=== PATIENT | male | born 1960 | race American Indian/Alaskan Native ===

== ENCOUNTER 2022-04-17 19:01 | Inpatient (IN) | payer OTHER ==
--- NOTE | 2022-04-17 19:12 | Emergency Department Report ---
ED CPR HPI - General Chief Complaint: Cardiac Arrest/CPR Stated Complaint: CARDIAC ARREST Time Seen by Provider: 04/17/22 19:07 Source: EMS Mode of arrival: Stretcher Limitations: Altered Mental Status, Physical Limitation - History of Present Illness Initial Comments: Patient is a 61-year-old male that presents emergency room for cardiac arrest. Patient brought in by EMS. Patient was at a [facility] outpatient [facility] for chest pain. Patient went to the restroom and went unresponsive in the restroom. Cy then called EMS. [facility] was able to get return of circulation after defibrillation for V. fib and multiple rounds of epi. Patient was then in tubated with RSI by [facility]. EMS picked patient up and the patient went back into cardiac arrest and and got spontaneous circulation after 1 round of epi. Complaint: found unresponsive, stopped breathing, collapsed during activity -: minute(s) Place: other ([facility]) Initial Findings in the Field: unresponsive, no respirations, no pulse, VTACH/VFIB ROSC in the Field: Yes Associated Injuries: No Associated Symptoms: chest pain Treatments Prior to Arrival: intubation, BMV, chest compressions, defribrillated shocks #, epinephrine mgs #, sodium bicarbonate - Related Data Allergies Allergy/AdvReac Type Severity Reaction Status Date / Time No Known Allergies Allergy Unverified 04/17/22 19:30 ED Review of Systems ROS: Stated complaint: CARDIAC ARREST Other details as noted in HPI Comment: Unobtainable due to pts medical conditions ED Past Medical Hx - Past Medical History Previous Medical History?: Yes Hx Hypertension: Yes Hx CVA: No Hx Heart Attack/AMI: No Hx Congestive Heart Failure: No Hx Diabetes: Yes Additional medical history: Hyperlipidemia, A. fib - Surgical History Past Surgical History?: No - Family History Family history: no significant - Social History Smoking Status: Unknown if ever smoked Substance Use Type: None ED Physical Exam - General Limitations: Altered Mental Status, Physical Limitation General appearance: obtunded - Head Head exam: Present: atraumatic, normocephalic - Eye Eye exam: Present: normal appearance, PERRL Pupils: Present: normal accommodation - ENT ENT exam: Present: mucous membranes dry - Neck Neck exam: Present: normal inspection - Respiratory Respiratory exam: Present: normal lung sounds bilaterally. Absent: respiratory distress, wheezes, rales - Cardiovascular Cardiovascular Exam: Present: regular rate, normal rhythm. Absent: systolic murmur, diastolic murmur, rubs, gallop - GI/Abdominal GI/Abdominal exam: Present: soft, normal bowel sounds - Rectal Rectal exam: Present: deferred - Extremities Exam Extremities exam: Present: normal inspection - Back Exam Back exam: Present: normal inspection - Neurological Exam Neurological exam: Present: altered - Skin Skin exam: Present: warm, dry, normal color, other (Left lower extremity IO). Absent: rash ED Course Vital Signs 04/17/22 04/17/22 19:01 19:10 Temperature 98 F Pulse Rate 127 H 121 H Respiratory 20 Rate Blood Pressure 162/104 135/93 O2 Sat by Pulse 76 L 68 L Oximetry - Reevaluation(s) Reevaluation #1: Initial valuation done. Cardiology will be consulted. Patient will have an EKG. Patient will have a cardiac work-up. 04/17/2218:57 Reevaluation #2: Patient is in A. fib RVR. Patient will be given amiodarone. 04/17/22 19:19 Reevaluation #3: Patient's on amiodarone. Patient's heart rate is slowly improving. 04/17/22 19:35 Reevaluation #4: Patient is hypotensive. Patient will be given 2 saline boluses. Patient will be placed on a Levophed drip as needed. 04/17/22 20:22 Patient responded well to saline bolus. Patient's blood pressure has normalized. Patient started on fentanyl drip since the patient is starting to wake up. 04/17/22 20:35 Reevaluation #5: I discussed the case with family. Patient will be admitted to the hospitalist service. Patient is being admitted to the ICU. 04/17/22 20:55 - Consultations Consultation #1: Cardiology Dr. Ventura consulted. Orders received. EKG sent to cardiology. 04/17/22 1857 I discussed again with cardiology. Cardiology does not recommend taking the patient to the [facility]. 04/17/22 19:38 Consultation #2: Hospitalist consulted for admission. Hospitalist to admit patient. 04/17/22 20:56 Consultation #3: I discussed the case with Dr. Fraser, [facility] physician. Dr. Fraser states the patient can be admitted here. 04/17/22 22:06 ED Medical Decision Making - Lab Data Result diagrams: 04/17/22 19:58 04/17/22 19:58 - EKG Data -: EKG Interpreted by Me EKG shows normal: axis, intervals, QRS complexes Rate: tachycardia - EKG Data Interpretation: nonspecific ST-T wave shanita, other (A. fib RVR) - Radiology Data Radiology results: report reviewed, image reviewed interpreted by me: Chest x-ray: No pneumonia, no pneumothorax, ET tube shows good placement., no osseous findings, CTA CHEST WITH CONTRAST INDICATION / CLINICAL INFORMATION: cardiac arrest. TECHNIQUE: Axial CT images were obtained through the chest after injection of IV contrast. 3 plane MIP and/or 3D reconstructions were produced. All CT scans at this location are performed using CT dose reduction for ALABlend by means of automated exposure control. COMPARISON: No prior CTs. FINDINGS: PULMONARY EMBOLUS: None. THORACIC AORTA: No significant abnormality. HEART: No significant abnormality. CORONARY ARTERY CALCIFICATION: Absent -- None. MEDIASTINUM / ALEXANDRA: No significant abnormality. PLEURA: No pleural effusion. No pneumothorax. LUNGS: There is dense consolidation within the dependent portion of both lungs greatest superiorly. Groundglass opacities are noted in the more anterior bilateral upper lobes. ADDITIONAL FINDINGS: Endotracheal tube and right IJ catheter are in satisfactory position. UPPER ABDOMEN: No acute findings. SKELETAL STRUCTURES: No significant osseous abnormality. IMPRESSION: 1. No CT evidence for pulmonary embolism. 2. Extensive bilateral airspace disease greatest in the dependent portions and greater in the upper lobes. Given the distribution, this could be related to aspiration if the patient has had prolonged loss of consciousness. CT head/brain wo con INDICATION / CLINICAL INFORMATION: 61 years Male; ams. TECHNIQUE: Routine CT head without contrast. All CT scans at this location are performed using CT dose reduction for ALARA by means of automated exposure control. COMPARISON: None. FINDINGS: BRAIN / INTRACRANIAL CONTENTS: Arachnoid cyst seen in the middle cranial fossa on the right, most likely of no clinical significance. Otherwise, no acute hemorrhage, mass effect, midline shift, hydrocephalus, or acute, large territorial infarct. No signs of significant atrophy or chronic infarct. No significant white matter abnormality seen. CRANIOCERVICAL JUNCTION: No significant abnormality. ORBITS: No significant abnormality of visualized orbits. SINUSES / MASTOIDS: Moderate mucosal thickening seen in the ethmoids and left sphenoid sinus. Small air-fluid levels seen throughout, including in the left frontal sinus region. There is significant opacification of the left maxillary antrum with an air-fluid level. Small air- fluid level noted in the right maxillary antrum as well. Note, the patient is intubated. Secretions are layering in the nasopharynx. Prior mastoidectomies noted bilaterally. There is partial opacification of the mastoidectomy cavities, as well as the middle ear cavities. ADDITIONAL FINDINGS: None. IMPRESSION: 1. No focal intra-axial mass, hemorrhage, hydrocephalus, or acute, large territorial infarct. 2. Sinus findings as described above, some of which certainly may be related to the patient being intubated. - Medical Decision Making Patient is a 61-year-old male who presents emergency room for cardiac arrest. Patient had spontaneous return of circulation while in the field at the [facility] as well as with EMS. Patient had a pulse and stable blood pressure on arrival. Patient was intubated by EMS. Placement verified and the ET tube was adjusted prior to x-ray. Patient found to be in A. fib RVR. I discussed the case with cardiology to consult cardiology the possibility of taking the patient directly to cath. Cardiology states that he want to take the patient to cath at this time. Recommendations were received from cardiology. Patient placed on amiodarone for A. fib RVR. Patient then found to be hypotensive and given fluids. Patient responded well to fluids. Patient had a Levophed drip ordered as needed. Patient was placed on fentanyl for sedation. Patient had x-rays done. Patient's initial x-ray shows good placement of the ET tube. Patient admitted to the hospitalist service and into the ICU.. Critical care time documented due to the multiple reassessments, prolonged time at the bedside, interpretation of diagnostics and labs and discussion with consultants.. - Differential Diagnosis Cardiac arrest, IA, PE, Critical Care Time: Yes Critical care time in (mins) excluding proc time.: 80 Critical care attestation.: If time is entered above; I have spent that time in minutes in the direct care of this critically ill patient, excluding procedure time. Critical Care Time: 80 minutes ED Disposition Clinical Impression: Cardiac arrest, Cardiogenic shock, Acute hypoxemic respiratory failure, Atrial fibrillation with RVR Hypotension Qualifiers: Hypotension type: unspecified hypotension type Qualified Code(s): I95.9 - Hypotension, unspecified Altered mental status Qualifiers: Altered mental status type: unspecified Qualified Code(s): R41.82 - Altered mental status, unspecified Aspiration pneumonia Qualifiers: Aspiration pneumonia type: unspecified Laterality: unspecified laterality Lung location: unspecified part of lung Qualified Code(s): J69.0 - Pneumonitis due to inhalation of food and vomit Disposition: ADMITTED INPATIENT Is pt being admited?: Yes Does the pt Need Aspirin: No Condition: Critical Time of Disposition: 21:21
[2022-04-17] MEDS ORDERED: AMIODARONE 150 MG in DEXTROSE 5% IN WATER 97 ML IV ONE (19:15)
[2022-04-17] MEDS ORDERED: ALBUTEROL 2.5 MG/3 ML NEBU IH PRN (19:48)
[2022-04-17] MEDS ORDERED: oxyCODONE /ACETAMINOPHEN 5-325MG TAB PO PRN (19:48)
[2022-04-17] MEDS ORDERED: HYDROmorphone 0.5 MG/0.5 ML INJ IV PRN ×2 (19:48→20:28)
--- NOTE | 2022-04-17 19:51 | History and Physical Report ---
History of Present Illness Chief complaint: Unresponsive History of present illness: 61 YO Male with Obesity Hypoventilation Syndrome, HTN, DM, Metabolic Syndrome presents to ED for evaluation. Patient is intubated and on ventilatory support at time of evaluation is unable to write history. Patient history taken EMS staff, ED staff, as well as the patient family was at bedside during exam and interview. As per family the patient presented to [facility] outpatient clinic for evaluation for chest pain. Patient subsequently went to the restroom and was found unresponsive in the restroom. EMS was notified and upon arrival the patient was found to be in distress with absent of spontaneous circulation and found to have ventricular fibrillation. Patient treated with ACLS protocol and was subsequently intubated in the field and transported to [facility] for further care and evaluation of the aforementioned symptoms. The patient was seen and evaluated in the emergency department. All lab and imaging studies reviewed. Patient found to have aspirated in the oropharynx with suspected aspiration pneumonia complicated by acute hypoxemic respiratory failure, septic shock, as well as cardiac arrest. Patient admitted to ICU and initiated on sepsis protocol due to septic shock. Patient initiated on IV pressor support. Patient family deny reports of fever, chills, palpitation, adductive cough, skin rash, recent contact, known exposure to COVID-19. No prior admission for review. No medication listed at time of admission for reconciliation. Advanced care planning conducted in ED. Cardiology team consulted in ED. Critical care team consulted in ED. Past History Past Medical History: diabetes, hypertension, other (See HPI) Past Surgical History: No surgical history, Other (Reviewed) Social history: . denies: smoking, alcohol abuse Family history: diabetes, hypertension Medications and Allergies Allergies Allergy/AdvReac Type Severity Reaction Status Date / Time No Known Allergies Allergy Unverified 04/17/22 19:30 Active Meds: Active Medications Amiodarone HCl 900 mg/ (Dextrose) 500 mls @ 33.333 mls/hr IV DIRECT FLACO; Protocol Review of Systems ROS unobtainable: due to endotracheal tube, due to mental status Exam - Constitutional General appearance: Present: severe distress - EENT Eyes: Present: miosis ENT: hearing decreased - Neck Neck: Present: supple, normal ROM - Respiratory Respiratory effort: labored, accessory muscle use Respiratory: bilateral: diminished, rhonchi - Cardiovascular Rhythm: irregularly irregular - Extremities Extremities: pulses symmetrical, No edema Peripheral Pulses: abnormal (Capillary refill greater than 3.5 seconds) - Abdominal General gastrointestinal: Present: soft, non-tender, non-distended, normal bowel sounds Male genitourinary: Present: normal - Integumentary Integumentary: Present: dry, clammy, decreased turgor - Musculoskeletal Musculoskeletal: generalized weakness - Psychiatric Psychiatric: no appropriate mood/affect, no intact judgment & insight, no memory intact - Neurologic Neurologic: CNII-XII intact, no focal deficits, moves all extremities, no gait normal Results - Labs CBC & Chem 7: 04/17/22 19:58 Labs: Abnormal lab results 04/17/22 Range/Units 19:18 POC Glucose 277 H (70-105) mg/dL Assessment and Plan - Patient Problems (1) Sepsis Current Visit: Yes Status: Acute Qualifiers: Severe sepsis acute organ dysfunction type: acute respiratory failure Severe sepsis shock status: with septic shock Plan to address problem: Severe sepsis: Chest x-ray, CBC, CMP, urinalysis, IV fluid resuscitation therapy, IV antibiotic therapy, serial lactic acid level, maintain mean arterial pressure greater than or equal to 65, IV pressor support, critical care team consulted in ED, blood culture. The high probability of a clinically significant, sudden or life threatening deterioration of the [cardiac, pulmonary, renal, ID, neuro] system(s) required my full and direct attention, intervention and personal management. The aggregate critical care time was [95] minutes. This time is in addition to time spent performing reported procedures but includes the following: [x] Data Review and interpretation [x] Patient assessment and monitoring of vital signs [x] Documentation [x] Medication orders and management (2) Acute hypoxemic respiratory failure Current Visit: Yes Status: Acute Plan to address problem: Chest x-ray, supplemental oxygen, patient intubated and on ventilatory support. Critical care team consulted, wean vent as tolerated, daily spontaneous breathing trial, arterial blood gas daily. Sedation holiday daily. (3) Cardiogenic shock Current Visit: Yes Status: Acute Plan to address problem: IV pressor support, supportive care. Telemetry monitoring. Cardiology team consulted. (4) Cardiac arrest Current Visit: Yes Status: Acute Plan to address problem: Patient treated in accordance with ACLS protocol with eventual return of perfusing cardiac rhythm. (5) Obesity hypoventilation syndrome Current Visit: Yes Status: Acute Plan to address problem: Balanced diet, submental oxygen, pulmonary toilet, (6) Hypertension Current Visit: Yes Status: Acute Qualifiers: Hypertension type: primary hypertension Qualified Code(s): I10 - Essential (primary) hypertension Plan to address problem: Monitor blood pressure every shift. Patient currently hypotensive and on IV pressor support. (7) Diabetes Current Visit: Yes Status: Acute Plan to address problem: Consistent carbohydrate diet when awake and alert only, hypoglycemia protocol, insulin protocol, Accu-Chek. (8) DVT prophylaxis Current Visit: Yes Status: Acute Plan to address problem: SCDs bilateral lower extremities while in bed prophylactic anticoagulation (9) Advance care planning Current Visit: Yes Status: Acute Plan to address problem: Disease education done, care plan discussed, diagnoses discussed, patient poor prognosis discussed. Patient family knowledges understanding and agreement with care plan, +30 minutes. (10) Preventative health care Current Visit: Yes Status: Acute Plan to address problem: Patient family counseled regarding risk factor reduction, outpatient follow-up with primary care physician for all age and risk factor appropriate screening test, +30 minutes.
--- NOTE | 2022-04-17 19:57 | XRay Report ---
CHEST 1 VIEW 04/17/2022 6:35 PM INDICATION / CLINICAL INFORMATION: TUBE PLACEMENT; CHEST PAIN. COMPARISON: None. FINDINGS: SUPPORT DEVICES: Endotracheal tip is approximately 2 cm above the law. HEART / MEDIASTINUM: Upper limits of normal. LUNGS / PLEURA: There are diffuse bilateral pulmonary opacities. No pneumothorax. ADDITIONAL FINDINGS: No significant additional findings. IMPRESSION: 1. Endotracheal tube tip is approximately 2 cm above the law. 2. Diffuse bilateral pulmonary opacities could be seen in the setting of pulmonary edema but are nons pecific. Signer Name: Matt Jacobo MD Signed: 04/17/2022 7:53 PM Workstation Name: [id number]
--- NOTE | 2022-04-17 20:01 | XRay Report ---
CHEST 1 VIEW 7:50 PM INDICATION: tube placement. COMPARISON: Earlier today. FINDINGS: Support devices: Endotracheal tube has been pulled back, the tip is approximately 3-4 cm above the ca emanuel. Heart: Stable. Lungs/Pleura: No pneumothorax. Diffuse bilateral pulmonary opacities persist. IMPRESSION: 1. Endotracheal tube tip is approximately 3-4 cm above the law. Signer Name: Matt Jacobo MD Signed: 04/17/2022 7:57 PM Workstation Name: [id number]
[2022-04-17] MEDS: AMIODARONE 900 MG in DEXTROSE 5% IN WATER 482 ML IV SCH (20:04)
[2022-04-17 20:14] LABS: ABG Base Excess -11.5 mmol/L (-2.0-3.0); ABG HCO3 18.5 mmol/L (20.0-26.0); ABG Methemoglobin 0.7 % (0.0-1.5); ABG Oxygen Saturation 68.3 % (95.0-99.0); ABG PCO2 58.3 mm Hg; ABG PO2 45.3 mm Hg (80.0-90.0)
[2022-04-17 20:18] LABS: ABG PH 7.12 pH Units (7.350-7.450)
[2022-04-17] MEDS ORDERED: SODIUM CHLORIDE 0.9% 1000 ML 1,000 ML IV ONE ×2 (20:20→21:25)
[2022-04-17 20:28] LABS: Basophils # (Auto) 0.1 K/mm3 (0.0-0.1); Basophils % (Auto) 0.6 % (0.0-1.8); Eosinophils # (Auto) 0.3 K/mm3 (0.0-0.4); Eosinophils % (Auto) 2.8 % (0.0-4.3); Hemoglobin 15.5 gm/dl (11.8-15.2); Lymphocytes # (Auto) 2.7 K/mm3 (1.2-5.4); Mean Corpuscular HGB Conc 32 % (32-34); Mean Corpuscular Volume 93 fl (84-94); Monocytes # (Auto) 0.2 K/mm3 (0.0-0.8); Monocytes % (Auto) 1.9 % (0.0-7.3); Platelet Count 228 K/mm3 (140-440); Red Blood Count 5.17 M/mm3 (3.65-5.03); Red Cell Distribution Width 14.9 % (13.2-15.2)
[2022-04-17] MEDS ORDERED: ACETAMINOPHEN 325 MG TAB PO PRN (20:28)
[2022-04-17] MEDS ORDERED: SODIUM CHLORIDE 0.9% 1000 ML IV SOLN IV ONE (20:28)
--- NOTE | 2022-04-17 20:28 | Procedure Note ---
Date of procedure: 04/17/22 Pre-op diagnosis: Acute hypoxemic respiratory failure, cardiac arrest Post-op diagnosis: same Procedure: Right internal jugular vein triple-lumen catheter under ultrasound guidance After informed consent was obtained, the patient was prepped and draped in usual sterile fashion. A timeout was taken with the patient's nurse at bedside to verify the correct patient, the correct procedure, and correct operative site. Local anesthesia obtained with 1% lidocaine. Ultrasound was utilized to localize the right internal jugular vein. The Seldinger technique was utilized to access the right internal jugular vein with a seeker needle followed ultrasound guidance. A guidewire was then advanced via the seeker needle into the right internal jugular vein without difficulty. The seeker needle was then removed over the guidewire. A scalpel was used to incise the skin at the insertion site. A dilator was then passed over the guidewire into the right internal jugular vein and subsequently removed. A preflush triple-lumen catheter was then advanced via the guidewire into the right internal jugular vein. The guidewire was subsequently removed. All 3 ports flush and drawl with ease. 3-0 silk suture was utilized to suture the triple-lumen catheter in place. A sterile dressing was applied over the triple-lumen catheter. Estimated blood loss minimal. Specimens none. Postoperative chest x-ray reveals triple-lumen catheter in expected position without evidence of pneumothorax. Anesthesia: local Surgeon: MARI MARCUS Estimated blood loss: minimal Pathology: none Condition: critical Disposition: ICU
[2022-04-17] MEDS: fentaNYL DRIP Premix 2,000 MCG/100 ML BAG IV SCH (20:29)
[2022-04-17 20:34] LABS: Calcium 8.4 mg/dL (8.4-10.2)
[2022-04-17 20:37] LABS: INR 0.95 (0.87-1.13)
[2022-04-17 20:38] LABS: Partial Thromboplastin Time 33.2 Sec. (24.2-36.6)
[2022-04-17] MEDS: fentaNYL 100 MCG/2 ML INJ IV PRN ×2 (20:44→21:04)
--- NOTE | 2022-04-17 21:32 | Cat Scan Report ---
CT head/brain wo con INDICATION / CLINICAL INFORMATION: 61 years Male; ams. TECHNIQUE: Routine CT head without contrast. All CT scans at this location are performed using CT dos e reduction for ALARA by means of automated exposure control. COMPARISON: None. FINDINGS: BRAIN / INTRACRANIAL CONTENTS: Arachnoid cyst seen in the middle cranial fossa on the right, most lik aurea of no clinical significance. Otherwise, no acute hemorrhage, mass effect, midline shift, hydrocephalus, or acute, large territori al infarct. No signs of significant atrophy or chronic infarct. No significant white matter abnormali ty seen. CRANIOCERVICAL JUNCTION: No significant abnormality. ORBITS: No significant abnormality of visualized orbits. SINUSES / MASTOIDS: Moderate mucosal thickening seen in the ethmoids and left sphenoid sinus. Small a ir-fluid levels seen throughout, including in the left frontal sinus region. There is significant opa cification of the left maxillary antrum with an air-fluid level. Small air-fluid level noted in the r ight maxillary antrum as well. Note, the patient is intubated. Secretions are layering in the nasopha rynx. Prior mastoidectomies noted bilaterally. There is partial opacification of the mastoidectomy cavities , as well as the middle ear cavities. ADDITIONAL FINDINGS: None. IMPRESSION: 1. No focal intra-axial mass, hemorrhage, hydrocephalus, or acute, large territorial infarct. 2. Sinus findings as described above, some of which certainly may be related to the patient being int ubated. Signer Name: Marlon Ulloa MD, III Signed: 04/17/2022 9:28 PM Workstation Name: [id number]
--- NOTE | 2022-04-17 21:45 | Cat Scan Report ---
CTA CHEST WITH CONTRAST INDICATION / CLINICAL INFORMATION: cardiac arrest. TECHNIQUE: Axial CT images were obtained through the chest after injection of IV contrast. 3 plane RI P and/or 3D reconstructions were produced. All CT scans at this location are performed using CT dose reduction for ALARA by means of automated exposure control. COMPARISON: No prior CTs. FINDINGS: PULMONARY EMBOLUS: None. THORACIC AORTA: No significant abnormality. HEART: No significant abnormality. CORONARY ARTERY CALCIFICATION: Absent -- None. MEDIASTINUM / ALEXANDRA: No significant abnormality. PLEURA: No pleural effusion. No pneumothorax. LUNGS: There is dense consolidation within the dependent portion of both lungs greatest superiorly. G roundglass opacities are noted in the more anterior bilateral upper lobes. ADDITIONAL FINDINGS: Endotracheal tube and right IJ catheter are in satisfactory position. UPPER ABDOMEN: No acute findings. SKELETAL STRUCTURES: No significant osseous abnormality. IMPRESSION: 1. No CT evidence for pulmonary embolism. 2. Extensive bilateral airspace disease greatest in the dependent portions and greater in the upper l obes. Given the distribution, this could be related to aspiration if the patient has had prolonged lo ss of consciousness. Signer Name: Matt Jacobo MD Signed: 04/17/2022 9:40 PM Workstation Name: [id number]
[2022-04-17 21:54] LABS: Creatine Kinase MB 17.9 ng/mL (0.0-4.0)
[2022-04-17 21:55] LABS: Albumin 4.3 g/dL (3.9-5); Calcium 8.6 mg/dL (8.4-10.2)
[2022-04-17 22:17] LABS: Chol/HDL Ratio 2.65 %
[2022-04-17 22:37] LABS: Creatine Kinase MB 19.2 ng/mL (0.0-4.0)
[2022-04-17] MEDS ORDERED: SODIUM CHLORIDE 0.9% 1000 ML 1,000 ML IV SCH (23:45)
[2022-04-17] MEDS ORDERED: DEXTROSE 50% IN WATER (25GM) 50 ML SYRINGE IV PRN (23:46)
[2022-04-18] MEDS: fentaNYL DRIP Premix 2,000 MCG/100 ML BAG IV SCH ×6 (00:31→20:39)
[2022-04-18] MEDS: INSULIN LISPRO 100 UNIT/ML SUB-Q SCH ×4 (00:44→18:32)
[2022-04-18] MEDS: VASOPRESSIN 20 UNIT in SODIUM CHLORIDE 0.9% 100 ML IV SCH ×4 (00:46→20:43)
[2022-04-18 01:53] LABS: Creatine Kinase MB 25.3 ng/mL (0.0-4.0)
[2022-04-18] MEDS: NORepinephrine/NS 8 MG-250 ML 8 MG/250 ML INFUS..BTL IV SCH ×2 (03:50→15:05)
[2022-04-18] MEDS: fentaNYL 100 MCG/2 ML INJ IV PRN (03:52)
[2022-04-18] MEDS ORDERED: HEPARIN 10,000 UNITS/10 ML VIAL IV PRN (04:13)
[2022-04-18 04:51] LABS: Hematocrit 45.6 % (35.5-45.6); Hemoglobin 14.5 gm/dl (11.8-15.2); Mean Corpuscular HGB Conc 32 % (32-34); Mean Corpuscular Volume 92 fl (84-94); Platelet Count 199 K/mm3 (140-440); Red Blood Count 4.94 M/mm3 (3.65-5.03); Red Cell Distribution Width 14.7 % (13.2-15.2)
[2022-04-18 04:52] LABS: Basophils # (Auto) 0.1 K/mm3 (0.0-0.1); Eosinophils % (Auto) 0.1 % (0.0-4.3); Monocytes # (Auto) 0.3 K/mm3 (0.0-0.8); Monocytes % (Auto) 3.2 % (0.0-7.3)
[2022-04-18 04:57] LABS: INR 1.08 (0.87-1.13)
[2022-04-18 04:58] LABS: Partial Thromboplastin Time 28.6 Sec. (24.2-36.6)
[2022-04-18] MEDS ORDERED: HEPARIN/ 0.45% NACL DRIP 25,000 UNIT/500 ML BAG IV SCH (05:00)
[2022-04-18 05:39] LABS: Albumin 3.3 g/dL (3.9-5)
[2022-04-18 05:50] LABS: Band Neutrophils # (Manual) 0.3 K/mm3; Basophils % (Manual) 0 % (0.0-1.8); Eosinophils % (Manual) 0 % (0.0-4.3); Total Cells Counted 100
[2022-04-18 05:51] LABS: Calcium 7.9 mg/dL (8.4-10.2)
[2022-04-18 06:02] LABS: Platelet Estimate Consistent w Auto; Toxic Granulation 2+
[2022-04-18] MEDS ORDERED: LIP THERAPY VASELINE TP PRN (06:02)
[2022-04-18] MEDS ORDERED: MINERAL OIL/PETROLATUM, WHITE OPHTH OINT 3.5 GM OU PRN (06:02)
[2022-04-18 06:34] LABS: ABG Base Excess -11.4 mmol/L (-2.0-3.0); ABG HCO3 18.4 mmol/L (20.0-26.0); ABG Methemoglobin 0.8 % (0.0-1.5); ABG Oxygen Saturation 80.7 % (95.0-99.0); ABG PO2 56.1 mm Hg (80.0-90.0)
[2022-04-18 06:35] LABS: ABG PH 7.119 pH Units (7.350-7.450)
[2022-04-18] MEDS ORDERED: SODIUM BICARB 8.4% 50 MEQ/50 ML SYRINGE IV ONE ×4 (06:48→19:00)
[2022-04-18] MEDS ORDERED: SODIUM BICARB 8.4% 50 MEQ/50 ML SYRINGE IV NR (06:54)
[2022-04-18] MEDS ORDERED: DEXTROSE 5% IN WATER 1,000 ML with SODIUM BICARBONATE 150 MEQ IV SCH (07:00)
--- NOTE | 2022-04-18 07:10 | Event Note ---
Date: 04/18/22 Patient has remained hypotensive and hypoxemic overnight despite addition of vasopressin and levophed repeat ABG with pH of 7.12 and pCO2 of 58 - 2 Amps NaHCO3 IVP - begin D5W with 3 amps NaHCO3/L @ 100ml's/hr - add Neosynephrine - Increase TV to 550 acutely and peep to 16 (PIP's of 30 when well sedated) - add Propofol and target RASS -1 - repeat ABG at noon and reduce TV's as tolerated - target 6 ml/kg IBW - permissive hypercapnia for pH > 7.20 - target MAP >/= 65 mmHG - reevaluate prn
[2022-04-18] MEDS ORDERED: PHENYLEPHRINE 100 MG in SODIUM CHLORIDE 0.9% 90 ML IV SCH (07:30)
--- NOTE | 2022-04-18 07:53 | Consultation ---
History of Present Illness Consult date: 04/18/22 Reason for consult: dyspnea, chest pain History of present illness: 61 YO Male with Obesity Hypoventilation Syndrome, HTN, HDL, DM, Metabolic Syn drome presents to ED for evaluation. Patient is intubated and on ventilatory support . Patient history taken EMS staff, ED staff, as well as the patient family was at bedside . As per family the patient presented to [place] outpatient clinic for evaluation for chest pain. Patient subsequently went to the restroom and was found unresponsive in the restroom. EMS was notified and upon arrival the patient was found to be in distress with absent of spontaneous circulation and found to have ventricular fibrillation. Patient treated with ACLS protocol and was subsequently intubated in the field and transported to [facility] for further care and evaluation of the aforementioned symptoms. Patient found to have aspirated in the oropharynx with suspected aspiration pneumonia complicated by acute hypoxemic respiratory failure, septic shock, as well as cardiac arrest. Patient admitted to ICU and initiated on sepsis protocol . Patient initiated on IV pressor support. Patient family deny reports of fever, chills, palpitation, adductive cough, skin rash, recent contact, known exposure to COVID-19. Cardiology team consulted in ED. Critical care team consulted in ED. Patient has history of atrial fibrillation. Patients Echocardiogram showed left ventricular Ejection fraction 25%. Chest xray obtained on admission 04/17/22 reported Endotracheal tube tip is approximately 2 cm above the law. Diffuse bilateral pulmonary opacities could be seen in the setting of pulmonary edema. CTA of chest obtained 04/17/[address] evidence for pulmonary embolism. Extensive bilateral airspace disease greatest in the dependent portions and greater in the upperlobes. Given the distribution, this could be related to aspiration if the patient has had prolonged loss of consciousness. Patient has no history of smoking, alcohol or drug abuse. and has four children. 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 Patient not responding to verbal stimuli. Patient is on Assist control mechanical ventilation, rate 30, tidal volume 500, PEEP 16,FIO2 60%. Patient saturation running 98%. Decreased PEEP slowly to 10. O2 saturation running 100% Repeat ABGs PH 7.3, PCO2 30 PO2 104 , HCO3 14.4 O2 saturation 98% On assist control mechanical ventilation, rate 30, tidal volume 550, FIO2 100%, PEEP 10. Recommend t decrease tidal volume to 500, Decrease FIO2 to 60%. Patient is on BIcarb drip. Patient afebrile. No leukocytosis. Blood pressure 72/51, Pulse 71, Respiratory rate 30. Patient is on Levophed, vasopressin. Adding phenylephrine and Dobutrex. Cut down the PEEP from 16 to 10., Blood pressure slowly improving. Patient also on Amiodarone, I/V Levaquin and I/V Heparin and Pepcid. Patients at bed side, explained patients critical conition. Past History Past Medical History: diabetes, hypertension, other ( AF, HLD,Obesity,Possible sleep apnea and Obesity hypoventilation.) Past Surgical History: No surgical history, Other (Reviewed) Social history: . denies: smoking, alcohol abuse Family history: diabetes, hypertension Medications and Allergies Allergies Allergy/AdvReac Type Severity Reaction Status Date / Time No Known Allergies Allergy Unverified 04/17/22 19:30 Active Meds: Active Medications Acetaminophen (Acetaminophen 325 Mg Tab) 650 mg PO Q6H PRN PRN Reason: Pain MILD(1-3)/Fever >100.5/CHE Albuterol (Albuterol 2.5 Mg/3 Ml Nebu) 2.5 mg IH Q3HRT PRN PRN Reason: Shortness Of Breath Dextrose (Dextrose 50% In Water (25gm) 50 Ml Syringe) 0 ml IV Q30MIN PRN; Protocol PRN Reason: Hypoglycemia Famotidine (Famotidine 20 Mg/2 Ml Inj) 20 mg IV QAM FLACO Fentanyl (Fentanyl 100 Mcg/2 Ml Inj) 50 mcg IV Q10MIN PRN PRN Reason: ANALGESIA Last Admin: 04/18/22 03:52 Dose: 50 mcg Heparin Sodium (Porcine) (Heparin 10,000 Units/10 Ml Vial) 4,600 unit 40 unit/kg (4600 unit) IV Q6H PRN PRN Reason: Anti-Xa Assay < 0.1 units/ml Hydromorphone HCl (Hydromorphone 0.5 Mg/0.5 Ml Inj) 0.5 mg IV Q23H PRN PRN Reason: Pain , Severe (7-10) Last Admin: 04/18/22 01:40 Dose: 0.5 mg Hydromorphone HCl (Hydromorphone 0.5 Mg/0.5 Ml Inj) 0.25 mg IV Q4H PRN PRN Reason: Pain, Moderate (4-6) Hydrophilic Ointment (Lip Therapy Vaseline) 1 applic TP Q2HR PRN PRN Reason: Dry Lips Amiodarone HCl 900 mg/ (Dextrose) 500 mls @ 33.333 mls/hr IV DIRECT FLACO; Protocol Last Admin: 04/17/22 20:04 Dose: 1 mg/min, 33.333 mls/hr NORepinephrine/NS 8 MG-250 ML (Norepinephrine/Ns 8 Mg-250 Ml (Double Conc)) 8 mg in 250 mls @ 3.75 mls/hr IV TITRATE FLACO; Protocol Last Titration: 04/18/22 07:44 Dose: 10 mcg/min, 18.75 mls/hr Fentanyl Citrate (Fentanyl Drip Premix) 2,000 mcg in 100 mls @ 5.443 mls/hr IV TITR FLACO; Protocol Last Admin: 04/18/22 04:04 Dose: 1 mcg/kg/hr, 5.443 mls/hr Vasopressin 20 unit/ Sodium (Chloride) 101 mls @ 9.09 mls/hr IV TITR FLACO; Protocol Last Admin: 04/18/22 03:59 Dose: 0.03 units/min, 9.09 mls/hr Heparin Sodium/Sodium Chloride (Heparin/ 0.45% Nacl-25,000 Unit/500 Ml) 25,000 unit in 500 mls @ 20 mls/hr IV TITRATE FLACO; Protocol Propofol (Diprivan 10 Mg/Ml) 1,000 mg in 100 mls @ 3.456 mls/hr IV TITR FLACO; Protocol Levofloxacin/Dextrose (Levaquin 750mg/150ml) 750 mg in 150 mls @ 100 mls/hr IV Q48H FLACO; Protocol Sodium Bicarbonate 150 meq/ (Dextrose) 1,150 mls @ 100 mls/hr IV DIRECT FLACO Stop: 04/20/22 18:29 Phenylephrine HCl 100 mg/ (Sodium Chloride) 100 mls @ 3 mls/hr IV TITR FLACO; Protocol Insulin Human Lispro (Insulin Lispro 100 Unit/Ml) 0 unit SUB-Q Q6HR FLACO; Paulina col Last Admin: 04/18/22 06:10 Dose: 6 unit Multi-Ingred Cream/Lotion/Oil/Oint (Mineral Oil/Petrolatum, White Ophth Oint 3.5 Gm) 1 applic OU Q4HR PRN PRN Reason: Dry Eye(s) Oxycodone/Acetaminophen (Oxycodone /Acetaminophen 5-325mg Tab) 1 tab PO Q16H PRN PRN Reason: Pain, Moderate (4-6) Senna/Docusate Sodium (Sennosides/Docusate Sodium 8.6/50 Mg Tab) 1 tab FEEDTUBE BID FLACO Sodium Chloride (Sodium Chloride 0.9% 10 Ml Flush Syringe) 10 ml IV BID FLACO Last Admin: 04/17/22 23:17 Dose: 10 ml Sodium Chloride (Sodium Chloride 0.9% 10 Ml Flush Syringe) 10 ml IV PRN PRN PRN Reason: LINE FLUSH Review of Systems ROS unobtainable: due to endotracheal tube All systems: negative Physical Examination Vital signs: Vital Signs Temp Pulse Resp BP Pulse Ox 98 F 127 H 20 162/104 76 L 04/17/22 19:01 04/17/22 19:01 04/17/22 19:01 04/17/22 19:01 04/17/22 19:01 General appearance: asleep, other (Not responding to verbal stimuli. sedated and mechanical ventilation.) Eyes: non-icteric ENT: oropharynx dry Neck: supple, no JVD Effort: mildly labored Ascultation: Bilateral: rales Cardiovascular: irregular rhythm Gastrointestinal: hypoactive bowel sounds, soft, non-tender Integumentary: normal Extremities: no cyanosis, edema Musculoskeletal: no deformities Gait: other (Patient in the bed on mechanical ventilation.) unable to assess other (Unable to assess due to mental status.) Results - Laboratory Findings CBC and BMP: 04/18/22 Unknown 04/18/22 Unknown ABG ABG pH 7.119 pH Units (7.350-7.450) L* 04/18/22 06:20 ABG pCO2 58.0 mm Hg 04/18/22 06:20 ABG pO2 56.1 mm Hg (80.0-90.0) L 04/18/22 06:20 ABG O2 Saturation 80.7 % (95.0-99.0) L 04/18/22 06:20 PT/INR, D-dimer PT 15.6 Sec. (12.2-14.9) H 04/18/22 Unknown INR 1.08 (0.87-1.13) 04/18/22 Unknown Abnormal lab findings: Abnormal Labs 04/17/22 04/17/22 04/17/22 19:18 19:55 19:56 WBC RBC Hgb Hct Seg Neutrophils % Seg Neuts % (Manual) Lymphocytes % (Manual) Seg Neutrophils # Seg Neutrophils # Man PT ABG pH 7.120 L* ABG pO2 45.3 L ABG HCO3 18.5 L ABG O2 Saturation 68.3 L ABG Base Excess -11.5 L Oxyhemoglobin 66.8 L Chloride 94.2 L Carbon Dioxide 17 L BUN Creatinine 1.6 H Glucose 315 H POC Glucose 277 H Lactic Acid Calcium AST 529 H ALT 318 H Alkaline Phosphatase 137 H Total Creatine Kinase 398 H CK-MB (CK-2) 17.9 H CK-MB (CK-2) Rel Index 4.4 H Troponin T 0.205 H* Albumin 04/17/22 04/17/22 04/17/22 19:58 19:58 21:42 WBC 11.9 H RBC 5.17 H Hgb 15.5 H Hct 48.0 H Seg Neutrophils % 71.7 H Seg Neuts % (Manual) Lymphocytes % (Manual) Seg Neutrophils # 8.5 H Seg Neutrophils # Man PT ABG pH ABG pO2 ABG HCO3 ABG O2 Saturation ABG Base Excess Oxyhemoglobin Chloride 95.0 L Carbon Dioxide 19 L BUN Creatinine 1.5 H Glucose 306 H POC Glucose Lactic Acid Calcium AST ALT Alkaline Phosphatase Total Creatine Kinase 412 H CK-MB (CK-2) 19.2 H CK-MB (CK-2) Rel Index 4.6 H Troponin T 0.285 H* D Albumin 04/17/22 04/18/22 04/18/22 21:42 00:40 01:07 WBC RBC Hgb Hct Seg Neutrophils % Seg Neuts % (Manual) Lymphocytes % (Manual) Seg Neutrophils # Seg Neutrophils # Man PT ABG pH ABG pO2 ABG HCO3 ABG O2 Saturation ABG Base Excess Oxyhemoglobin Chloride Carbon Dioxide BUN Creatinine Glucose POC Glucose 320 H Lactic Acid 7.90 H* 7.90 H* Calcium AST ALT Alkaline Phosphatase Total Creatine Kinase CK-MB (CK-2) CK-MB (CK-2) Rel Index Troponin T Albumin 04/18/22 04/18/22 04/18/22 01:07 06:04 06:20 WBC RBC Hgb Hct Seg Neutrophils % Seg Neuts % (Manual) Lymphocytes % (Manual) Seg Neutrophils # Seg Neutrophils # Man PT ABG pH 7.119 L* ABG pO2 56.1 L ABG HCO3 18.4 L ABG O2 Saturation 80.7 L ABG Base Excess -11.4 L Oxyhemoglobin 79.2 L Chloride Carbon Dioxide BUN Creatinine Glucose POC Glucose 305 H Lactic Acid Calcium AST ALT Alkaline Phosphatase Total Creatine Kinase 488 H CK-MB (CK-2) 25.3 H CK-MB (CK-2) Rel Index 5.1 H Troponin T 0.665 H* D Albumin 04/18/22 04/18/22 04/18/22 Unknown Unknown Unknown WBC RBC Hgb Hct Seg Neutrophils % Seg Neuts % (Manual) 81.0 H Lymphocytes % (Manual) 12.0 L Seg Neutrophils # 9.8 H Seg Neutrophils # Man 8.7 H PT 15.6 H ABG pH ABG pO2 ABG HCO3 ABG O2 Saturation ABG Base Excess Oxyhemoglobin Chloride Carbon Dioxide 18 L BUN 26 H Creatinine 2.5 H D Glucose 330 H POC Glucose Lactic Acid Calcium 7.9 L AST 463 H ALT 249 H Alkaline Phosphatase Total Creatine Kinase CK-MB (CK-2) CK-MB (CK-2) Rel Index Troponin T Albumin 3.3 L - Diagnostic Findings Chest x-ray: report reviewed, image reviewed CT scan - chest: report reviewed, image reviewed Additional studies: CHEST 1 VIEW 04/17/2022 6:35 PM INDICATION / CLINICAL INFORMATION: TUBE PLACEMENT; CHEST PAIN. COMPARISON: None. FINDINGS: SUPPORT DEVICES: Endotracheal tip is approximately 2 cm above the law. HEART / MEDIASTINUM: Upper limits of normal. LUNGS / PLEURA: There are diffuse bilateral pulmonary opacities. No pneumothorax. ADDITIONAL FINDINGS: No significant additional findings. IMPRESSION: 1. Endotracheal tube tip is approximately 2 cm above the law. 2. Diffuse bilateral pulmonary opacities could be seen in the setting of pulm onary edema but are nonspecific. CTA CHEST WITH CONTRAST 04/17/22 INDICATION / CLINICAL INFORMATION: cardiac arrest. TECHNIQUE: Axial CT images were obtained through the chest after injection of IV contrast. 3 plane MIP and/or 3D reconstructions were produced. All CT scans at this location are performed using CT dose reduction for ALARA by means of automated exposure control. COMPARISON: No prior CTs. FINDINGS: PULMONARY EMBOLUS: None. THORACIC AORTA: No significant abnormality. HEART: No significant abnormality. CORONARY ARTERY CALCIFICATION: Absent -- None. MEDIASTINUM / ALEXANDRA: No significant abnormality. PLEURA: No pleural effusion. No pneumothorax. LUNGS: There is dense consolidation within the dependent portion of both lungs greatest superiorly. Groundglass opacities are noted in the more anterior bilateral upper lobes. ADDITIONAL FINDINGS: Endotracheal tube and right IJ catheter are in satisfactory position. UPPER ABDOMEN: No acute findings. SKELETAL STRUCTURES: No significant osseous abnormality. IMPRESSION: 1. No CT evidence for pulmonary embolism. 2. Extensive bilateral airspace disease greatest in the dependent portions and greater in the upper lobes. Given the distribution, this could be related to aspiration if the patient has had prolonged loss of consciousness. Assessment and Plan 61 YO Male with Obesity Hypoventilation Syndrome, HTN, HDL, DM, Metabolic Syn drome presents to ED for evaluation. Patient is intubated and on ventilatory support . Patient history taken EMS staff, ED staff, as well as the patient family was at bedside . As per family the patient presented to [place] outpatient clinic for evaluation for chest pain. Patient subsequently went to the restroom and was found unresponsive in the restroom. EMS was notified and upon arrival the patient was found to be in distress with absent of spontaneous circulation and found to have ventricular fibrillation. Patient treated with ACLS protocol and was subsequently intubated in the field and transported to [facility] for further care and evaluation of the aforementioned symptoms. Patient found to have aspirated in the oropharynx with suspected aspiration pneumonia complicated by acute hypoxemic respiratory failure, septic shock, as well as cardiac arrest. Patient admitted to ICU and initiated on sepsis protocol . Patient initiated on IV pressor support. Patient family deny reports of fever, chills, palpitation, adductive cough, skin rash, recent contact, known exposure to COVID-19. Cardiology team consulted in ED. Critical care team consulted in ED. Patient has history of atrial fibrillation. Patients Echocardiogram showed left ventricular Ejection fraction 25%. Chest xray obtained on admission 04/17/22 reported Endotracheal tube tip is approximately 2 cm above the law. Diffuse bilateral pulmonary opacities could be seen in the setting of pulmonary edema. CTA of chest obtained 04/17/[address] evidence for pulmonary embolism. Extensive bilateral airspace disease greatest in the dependent portions and greater in the upperlobes. Given the distribution, this could be related to aspiration if the patient has had prolonged loss of consciousness. Patient has no history of smoking, alcohol or drug abuse. and has four children. 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 Patient not responding to verbal stimuli. Patient is on Assist control mechanical ventilation, rate 30, tidal volume 550, PEEP 16,FIO2 100%. Patient saturation running 98%. Decreased PEEP slowly to 10. O2 saturation running 100% Repeat ABGs PH 7.3, PCO2 30 PO2 104 , HCO3 14.4 O2 saturation 98% On assist control mechanical ventilation, rate 30, tidal volume 500, FIO2 60%, PEEP 10. Recommend t decrease tidal volume to 500, Decrease FIO2 to 90%. Patient is on BIcarb drip. Patient afebrile. No leukocytosis. Blood pressure 72/51, Pulse 71, Respiratory rate 30. Patient is on Levophed, vasopressin. Adding phenylephrine and Dobutrex. Cut down the PEEP from 16 to 10., Blood pressure slowly improving. Patient also on Amiodarone, I/V Levaquin and I/V Heparin and Pepcid. Patients at bed side, explained patients critical conition. I spent ctitical care time of 65 minutes, obtaing history from family, reviewing the chart, examine the patient, review labs and Xrays, talking to the nursing staff, respiratory therapy and work up Plan of treatment in this critically ill patient. - Patient Problems (1) Acute hypoxemic respiratory failure Current Visit: Yes Status: Acute Plan to address problem: Mechanical ventilation assist control, rate 30, tidal volume 500, FIO2 60%, PEEP 10. Recommend Xopenex aerosol treatments q 8 hours. Patient is on I/V Heparin. Continue famotidine. (2) Altered mental status Current Visit: Yes Status: Acute Qualifiers: Altered mental status type: unspecified Qualified Code(s): R41.82 - Altered mental status, unspecified Plan to address problem: Likely anoxic encephalopathy. Continue follow on neurological status. Recommend to consult neurology. (3) Aspiration pneumonia Current Visit: Yes Status: Acute Qualifiers: Aspiration pneumonia type: unspecified Laterality: unspecified laterality Lung location: unspecified part of lung Qualified Code(s): J69.0 - Pneumonitis due to inhalation of food and vomit Plan to address problem: Recommend aspiration precautions. Patient is on I/V Levaquin. Chest xray findings more suggestive of pulmonary edema. (4) Cardiogenic shock Current Visit: Yes Status: Acute Plan to address problem: Patient is on Dobtrex and other vasopressors. Cardiology consulted. (5) Diabetes Current Visit: Yes Status: Acute Plan to address problem: Management as per primary care. (6) Hypotension Current Visit: Yes Status: Acute Qualifiers: Hypotension type: unspecified hypotension type Qualified Code(s): I95.9 - Hypotension, unspecified Plan to address problem: Patient is on multiple vasopressore, Dobutrex, Levophed, Vasopressin and Ph enylephrine. (7) Obesity hypoventilation syndrome Current Visit: Yes Status: Acute Plan to address problem: Patient presently on mechanical ventilation. Work up once patient pulled through tis acute episode.
[2022-04-18] MEDS: SODIUM BICARBONATE 150 MEQ in DEXTROSE 5% IN WATER 1,000 ML IV SCH ×2 (08:21→18:36)
--- NOTE | 2022-04-18 10:18 | Consultation ---
History of Present Illness Consult date: 04/18/22 Consult reason: chest pain, hypotension History of present illness: 62-year-old male with past medical history of diabetes and hypertension is adm itted with cardiac arrest. History obtained from , Amanda, at bedside. Patient has history of atrial fibrillation for which he previously had cardioversion, but otherwise no significant cardiac history. Patient reportedly had chest discomfort and shortness of breath with exertion at home and was taken to [facility] emergency room. He subsequently went to the bathroom and had a syncopal event. He was found to be in VF (no rhythm strips available) and was resuscitated at outside hospital. He is currently intubated and sedated, but he is intermittently agitated. He is currently being treated for sepsis and on norepinephrine and vasopressin. Work-up notable for EKG without acute ST changes and elevated troponin (0.20, 0.28, 0.66). Lactate is elevated 7.9, and creatinine is rising (2.5 today, 1.6 on presentation). CTA chest without evidence of PE or coronary calcifications but notable for possible aspiration pneumonia. He is currently on IV amiodarone and heparin. Telemetryrate controlled atrial fibrillation currently but previously rates uncontrolled Past History Past Medical History: diabetes, hypertension, other (See HPI) Past Surgical History: No surgical history, Other (Reviewed) Social history: . denies: smoking, alcohol abuse Family history: diabetes, hypertension Medications and Allergies Allergies Allergy/AdvReac Type Severity Reaction Status Date / Time No Known Allergies Allergy Unverified 04/17/22 19:30 Active Meds: Active Medications Acetaminophen (Acetaminophen 325 Mg Tab) 650 mg PO Q6H PRN PRN Reason: Pain MILD(1-3)/Fever >100.5/CHE Albuterol (Albuterol 2.5 Mg/3 Ml Nebu) 2.5 mg IH Q3HRT PRN PRN Reason: Shortness Of Breath Dextrose (Dextrose 50% In Water (25gm) 50 Ml Syringe) 0 ml IV Q30MIN PRN; Protocol PRN Reason: Hypoglycemia Famotidine (Famotidine 20 Mg/2 Ml Inj) 20 mg IV QAM FLACO Fentanyl (Fentanyl 100 Mcg/2 Ml Inj) 50 mcg IV Q10MIN PRN PRN Reason: ANALGESIA Last Admin: 04/18/22 03:52 Dose: 50 mcg Heparin Sodium (Porcine) (Heparin 10,000 Units/10 Ml Vial) 4,600 unit 40 unit/kg (4600 unit) IV Q6H PRN PRN Reason: Anti-Xa Assay < 0.1 units/ml Hydrophilic Ointment (Lip Therapy Vaseline) 1 applic TP Q2HR PRN PRN Reason: Dry Lips Amiodarone HCl 900 mg/ (Dextrose) 500 mls @ 33.333 mls/hr IV DIRECT FLACO; Protocol Last Titration: 04/18/22 08:19 Dose: 0.5 mg/min, 16.667 mls/hr NORepinephrine/NS 8 MG-250 ML (Norepinephrine/Ns 8 Mg-250 Ml (Double Conc)) 8 mg in 250 mls @ 3.75 mls/hr IV TITRATE FLACO; Protocol Last Titration: 04/18/22 08:23 Dose: 15 mcg/min, 28.125 mls/hr Fentanyl Citrate (Fentanyl Drip Premix) 2,000 mcg in 100 mls @ 5.443 mls/hr IV TITR FLACO; Protocol Last Admin: 04/18/22 09:44 Dose: 4 mcg/kg/hr, 21.772 mls/hr Vasopressin 20 unit/ Sodium (Chloride) 101 mls @ 9.09 mls/hr IV TITR FLACO; Pr otocol Last Admin: 04/18/22 09:45 Dose: 0.03 units/min, 9.09 mls/hr Heparin Sodium/Sodium Chloride (Heparin/ 0.45% Nacl-25,000 Unit/500 Ml) 25,000 unit in 500 mls @ 20 mls/hr IV TITRATE FLACO; Protocol Propofol (Diprivan 10 Mg/Ml) 1,000 mg in 100 mls @ 3.456 mls/hr IV TITR FLACO; Protocol Levofloxacin/Dextrose (Levaquin 750mg/150ml) 750 mg in 150 mls @ 100 mls/hr IV Q48H FLACO; Protocol Phenylephrine HCl 100 mg/ (Sodium Chloride) 100 mls @ 3 mls/hr IV TITR FLACO; Protocol Sodium Bicarbonate 150 meq/ (Dextrose) 1,150 mls @ 100 mls/hr IV DIRECT FLACO Stop: 04/20/22 19:29 Last Admin: 04/18/22 08:21 Dose: 100 mls/hr Insulin Human Lispro (Insulin Lispro 100 Unit/Ml) 0 unit SUB-Q Q6HR FLACO; Protocol Last Admin: 04/18/22 06:10 Dose: 6 unit Multi-Ingred Cream/Lotion/Oil/Oint (Mineral Oil/Petrolatum, White Ophth Oint 3.5 Gm) 1 applic OU Q4HR PRN PRN Reason: Dry Eye(s) Oxycodone/Acetaminophen (Oxycodone /Acetaminophen 5-325mg Tab) 1 tab PO Q16H PRN PRN Reason: Pain, Moderate (4-6) Senna/Docusate Sodium (Sennosides/Docusate Sodium 8.6/50 Mg Tab) 1 tab FEEDTUBE BID FLACO Sodium Chloride (Sodium Chloride 0.9% 10 Ml Flush Syringe) 10 ml IV BID FLACO Last Admin: 04/17/22 23:17 Dose: 10 ml Sodium Chloride (Sodium Chloride 0.9% 10 Ml Flush Syringe) 10 ml IV PRN PRN PRN Reason: LINE FLUSH Physical Examination Vital Signs Temp Pulse Resp BP Pulse Ox 98 F 127 H 20 162/104 76 L 04/17/22 19:01 04/17/22 19:01 04/17/22 19:01 04/17/22 19:01 04/17/22 19:01 Narrative exam: Gen-intubated, sedated, intermittently agitated, restrained HEENT-normocephalic, atraumatic, + ETT CV-irregularly irregular rhythm, regular rate, no murmurs Lungs-intubated, mechanical BS b/l Abd-soft, nt,nd Ext-no edema, warm to touch Neuro-sedated, no obvious focal deficits appreciated Psych-affect not tested, intermittently agitated Results 04/18/22 Unknown 04/18/22 Unknown Cardiac Enzymes 04/17/22 04/17/22 04/18/22 Range/Units 19:56 21:42 01:07 AST 529 H (5-40) units/L CK-MB (CK-2) 17.9 H 19.2 H 25.3 H (0.0-4.0) ng/mL 04/18/22 Range/Units Unknown AST 463 H (5-40) units/L CK-MB (CK-2) (0.0-4.0) ng/mL Coagulation 04/17/22 04/18/22 Range/Units 19:58 Unknown PT 14.0 15.6 H (12.2-14.9) Sec. INR 0.95 1.08 (0.87-1.13) APTT 33.2 28.6 (24.2-36.6) Sec. Lipids 04/17/22 Range/Units 19:56 Triglycerides 57 (2-149) mg/dL Cholesterol 106 (50-199) mg/dL HDL Cholesterol 40 (40-59) mg/dL Cholesterol/HDL Ratio 2.65 % CBC 04/17/22 04/18/22 Range/Units 19:58 Unknown WBC 11.9 H 10.7 (4.5-11.0) K/mm3 RBC 5.17 H 4.94 (3.65-5.03) M/mm3 Hgb 15.5 H 14.5 (11.8-15.2) gm/dl Hct 48.0 H 45.6 (35.5-45.6) % Plt Count 228 199 (140-440) K/mm3 Lymph # (Auto) 2.7 (1.2-5.4) K/mm3 [place] # (Auto) 0.2 0.3 (0.0-0.8) K/mm3 Eos # (Auto) 0.3 0.0 (0.0-0.4) K/mm3 Baso # (Auto) 0.1 0.1 (0.0-0.1) K/mm3 Comprehensive Metabolic Panel 04/17/22 04/17/22 04/18/22 Range/Units 19:56 19:58 Unknown Sodium 137 137 142 (137-145) mmol/L Potassium 4.0 4.0 4.0 (3.6-5.0) mmol/L Chloride 94.2 L 95.0 L 101.4 (98-107) mmol/L Carbon Dioxide 17 L 19 L 18 L (22-30) mmol/L BUN 17 16 26 H (9-20) mg/dL Creatinine 1.6 H 1.5 H 2.5 H D (0.8-1.3) mg/dL Glucose 315 H 306 H 330 H (75-100) mg/dL Calcium 8.6 8.4 7.9 L (8.4-10.2) mg/dL AST 529 H 463 H (5-40) units/L ALT 318 H 249 H (7-56) units/L Alkaline Phosphatase 137 H 95 (35-129) units/L Total Protein 7.1 6.5 (6.3-8.2) g/dL Albumin 4.3 3.3 L (3.9-5) g/dL 04/17/221943 EKG - AF 126, possible anteroseptal and anterior ST-D Assessment and Plan #Cardiac arrest, reported VF #Chest discomfort #Sepsis #Atrial fibrillation with history of prior cardioversion #Elevated troponin #Elevated LFTs #Acute kidney injury #Respiratory failure / aspiration pneumonia - intubated #AMS Await echocardiogram. Will likely need cardiac catheterization once renal function stabilizes and clinical status improves. Continue IV amiodarone for ventricular arrhythmia suppression and also AF rate control. Monitor LFTs. Continue IV heparin. Recommend arterial line placement for hemodynamic monitoring. Continue supportive care for possible sepsis.
--- NOTE | 2022-04-18 10:22 | XRay Report ---
CHEST 1 VIEW ABDOMEN-2 VIEWS INDICATION: ogt placement. COMPARISON: Chest x-ray from yesterday FINDINGS: SUPPORT DEVICES: Stable satisfactory device positioning. HEART: Normal heart size. LUNGS/PLEURA: Improved aeration in the lungs; however, there is persistent mild patchy airspace disea se greatest in the right lower lobe. ABDOMEN: Nonobstructive bowel gas pattern with NG tube in the distal stomach. IMPRESSION: 1. Support devices as above. 2. Improved aeration in the lungs. Signer Name: Francisco Leon MD Signed: 04/18/2022 10:18 AM Workstation Name: [id number]
[2022-04-18] MEDS ORDERED: SODIUM CHLORIDE 0.9% 1000 ML 1,000 ML ONE (10:43)
--- NOTE | 2022-04-18 10:44 | Progress Note ---
<ANDIE MARIANO - Last Filed: 04/18/22 17:52> Assessment and Plan Assessment and plan: This is a 61-year-old male with known past medical history of obsesity, DM, HTN, and Atrial fibrillation s/p cardioversion over 12hrs ago, unclear if patient was on AC at home admitted s/p outside of the hospital cardiac arrest/V-fib arrest with ROSC. Hospital Course to Date: 04/18: Severely acidotic this am, now on bcarb gtt. On high dose pressors- Levophed and Vaso. Afib in control rate on the monitor, on Amiodarone and heparin gtt per protocol. Cardiology is following. Patient remains afebrile and leukocytosis improved this am. Now with worsen renal function and low UOP. Patient's EF is 25 to 30%, Dobutamine gtt initiated. Continue current IV abx, continue to trend troponin and lactic acid. Nephrology also consulted for further recs. BLE swelling noted, BLE doppler ordered to r/o DVT. Assessment and Plan #Shock-Cardiogenic vs Septic #Atrial Fibrillation #NSTEMI #S/p Cardiac Arrest/V-Fib Arrest with ROSC - Found in the bathroom unresponsive at a [place] facility. - EMS found patient in V-Fib arrest treated per ACLS ROSC achieved - Positive troponinX3, EKG with no significant ST changes - On high dose pressors- Levophed and Vaso - In AFib, HR in the 70 to 100s this am - On Amiodarone and heparing gtt per protocol - Severely acidotic this am, on Bcarb gtt - EF 25 to 30%, full echo report pending - Dobutamine gtt initiated - Continue blood pressure monitor per protocol - Maintain MAP above 65 - Trend troponin and lactic acid - Continue current empiric IV abx - Per Cardio plan for possible LHC once patient is more stable #Acute Hypoxemic Respiratory Failure #Bilateral Pneumonia- Probable Aspiration - Intubated in the filed during code on 04/17 - Imaging reveals bilateral airspace disease, greater in the Upper lobs. Most likely aspiration - Vent setting: PRVC- 100%,16,30,550 - Repeat ABG noted - CCM consulted, appreciate recommendations - Continue IV Abx, vent adjustement per CCM - VAP bundle addressed - Aspiration precaution HOB above 30 - Daily SBT and SAT trials as tolerated - Daily ABG and CXR - Continue SPO2 monitoring for SPO2 goal above 92% #Acute Metabolic Encephalopathy #Face Contusion s/p Fall - Intubated and Sedated, propofol/fentanyl - Found in the bathroom unresponsive at a [place] facility. Most likely fell and hit his head - CT head reviewed, no acute intracranial abnormality - Titrate sedation for RASS goal 0 to -2 - Daily SAT and SBT per [facility] - Avoid benzodiazepine to reduce the possibility of delirium - PRN Analgesia CPOT greater than 3 - Maintenance of sleep-wake cycle #Acute Kidney Injury(VINCENT) most likely ATN - secondary to above. hypoperfusion/hypotension - Baseline renal function is unknown - Scr worsen this am, from 1.5 to 2.5. Now with anuria - Nephrology on consult, appreciated recommendation - Strict intake and output - Avoid nephrotoxic medications; Renally dose medications - Dunbar in place - Monitor and replace electrolytes as needed #Probably Septic Shock #Bilateral Pneumonia #Probably Aspiration Pneumonia #Severe Metabolic Acidosis - Imaging reveals bilateral airspace disease, greater in the Upper lobs. Most likely aspiration - Remains afebrile, leukocytosis improved. On high pressors with severe acidosis-on Bcarb gtt - UA pending. Patient is current anuric - Blood and sputum cultures pending - Empiric IV Abx initiated - F/U on cultures - Daily CBC monitor - Consider ID consult if febrile or/and if leukocytosis reoccur #Transaminitis #Shock Liver - most likely reactive from above/hypoperfusion - Close monitoring of LFTs, now on amiodarone gtt - Trend LFTs #Elevated D-Dimer - CTA chest with no evidence of PE - With BLE swelling- BLE doppler pending - On Heparin gtt per protocol #Type 2 Diabetes Mellitus - Hgb A1C pending - BG check and SSI Q6hrs - Avoid hypoglycemia #GI/DVT Prophylaxis - PPI- Pepcid - Heparin gtt #Advance Care Planning - Disease education data, care plan, diagnoses, and prognosis were discussed with patient's at the bedside. Patient is a FULL code. Patient's acknowledged understanding and agreed with current care plan. The high probability of a clinically significant, sudden or life threatening deterioration of the [multiple] system(s) required my full and direct attention, intervention and personal management. The aggregate critical care time was [60] minutes. This time is in addition to time spent performing reported procedures but includes the following: [x] Data Review and interpretation [x] Patient assessment and monitoring of vital signs [x] Documentation [x] Medication orders and management Disposition Plan: ICU Total Time Spent with Patient (Minutes): 60 History Interval history: Patient seen and examined at the bedside. Intubated and sedated on propofol and fentanyl. Arousable with mild stimuli, however does not follow commands. Per patient is [place]. Pupils are round and reactive with +gag/cough. Move all extremities. On 2 pressors and bcarb gtt, amiodarone and heaprin gtts also running. In Afib on the monitor, HR in the 70 to 100s. Hospitalist Physical - Constitutional Vitals: Temp Pulse Resp BP Pulse Ox 98.2 F 95 H 30 H 82/61 97 04/18/22 08:00 04/18/22 09:31 04/18/22 09:31 04/18/22 09:31 04/18/22 10:41 General appearance: Present: no acute distress, other (Intubated and Sedated) - EENT Eyes: Present: PERRL (Face contusion, black eyes) - Neck Neck: Present: normal ROM - Respiratory Respiratory effort: normal Respiratory: bilateral: rhonchi - Cardiovascular Rhythm: regular Heart Sounds: Present: S1 & S2 - Extremities Extremities: no ischemia, pulses intact, pulses symmetrical Extremity abnormal: edema - Peripheral Assessment Bilateral Lower Extremity Edema Type: Non-pitting Edema Degree: 2+ Capillary Refill: < 3 seconds Skin Temperature: Warm Generalized Edema Type: Non-pitting Edema Degree: 2+ Capillary Refill: < 3 seconds Skin Temperature: Warm Peripheral Pulses: within normal limits - Abdominal General gastrointestinal: soft, non-distended, hypoactive bowel sounds - Integumentary Integumentary: Present: clear, warm, dry - Psychiatric Psychiatric: other (Intubated and Sedated) - Neurologic Neurologic: moves all extremities, other (Intubated and Sedated) - Allied Health Allied health notes reviewed: nursing HEART Score - HEART Score Troponin: Troponin T 0.665 ng/mL (0.00-0.029) H* D 04/18/22 01:07 Results - Labs CBC & Chem 7: 04/18/22 Unknown 04/18/22 Unknown Labs: Laboratory Last Values WBC 10.7 K/mm3 (4.5-11.0) 04/18/22 Unknown RBC 4.94 M/mm3 (3.65-5.03) 04/18/22 Unknown Hgb 14.5 gm/dl (11.8-15.2) 04/18/22 Unknown Hct 45.6 % (35.5-45.6) 04/18/22 Unknown MCV 92 fl (84-94) 04/18/22 Unknown MCH 29 pg (28-32) 04/18/22 Unknown MCHC 32 % (32-34) 04/18/22 Unknown RDW 14.7 % (13.2-15.2) 04/18/22 Unknown Plt Count 199 K/mm3 (140-440) 04/18/22 Unknown Lymph % (Auto) 23.0 % (13.4-35.0) 04/17/22 19:58 [place] % (Auto) 3.2 % (0.0-7.3) 04/18/22 Unknown Eos % (Auto) 0.1 % (0.0-4.3) 04/18/22 Unknown Baso % (Auto) 0.6 % (0.0-1.8) 04/17/22 19:58 Lymph # (Auto) 2.7 K/mm3 (1.2-5.4) 04/17/22 19:58 [place] # (Auto) 0.3 K/mm3 (0.0-0.8) 04/18/22 Unknown Eos # (Auto) 0.0 K/mm3 (0.0-0.4) 04/18/22 Unknown Baso # (Auto) 0.1 K/mm3 (0.0-0.1) 04/18/22 Unknown Add Manual Diff Complete 04/18/22 Unknown Total Counted 100 04/18/22 Unknown Seg Neutrophils % Evaporator Operator 04/18/22 Unknown Seg Neuts % (Manual) 81.0 % (40.0-70.0) H 04/18/22 Unknown Band Neutrophils % 3.0 % 04/18/22 Unknown Lymphocytes % (Manual) 12.0 % (13.4-35.0) L 04/18/22 Unknown Reactive Lymphs % (Man) 0 % 04/18/22 Unknown Monocytes % (Manual) 2.0 % (0.0-7.3) 04/18/22 Unknown Eosinophils % (Manual) 0 % (0.0-4.3) 04/18/22 Unknown Basophils % (Manual) 0 % (0.0-1.8) 04/18/22 Unknown Metamyelocytes % 2.0 % 04/18/22 Unknown Myelocytes % 0 % 04/18/22 Unknown Promyelocytes % 0 % 04/18/22 Unknown Blast Cells % 0 % 04/18/22 Unknown Nucleated RBC % Not Reportable 04/18/22 Unknown Seg Neutrophils # 9.8 K/mm3 (1.8-7.7) H 04/18/22 Unknown Seg Neutrophils # Man 8.7 K/mm3 (1.8-7.7) H 04/18/22 Unknown Band Neutrophils # 0.3 K/mm3 04/18/22 Unknown Lymphocytes # (Manual) 1.3 K/mm3 (1.2-5.4) 04/18/22 Unknown Abs React Lymphs (Man) 0.0 K/mm3 04/18/22 Unknown Monocytes # (Manual) 0.2 K/mm3 (0.0-0.8) 04/18/22 Unknown Eosinophils # (Manual) 0.0 K/mm3 (0.0-0.4) 04/18/22 Unknown Basophils # (Manual) 0.0 K/mm3 (0.0-0.1) 04/18/22 Unknown Metamyelocytes # 0.2 K/mm3 04/18/22 Unknown Myelocytes # 0.0 K/mm3 04/18/22 Unknown Promyelocytes # 0.0 K/mm3 04/18/22 Unknown Blast Cells # 0.0 K/mm3 04/18/22 Unknown WBC Morphology Not Reportable 04/18/22 Unknown Hypersegmented Neuts Not Reportable 04/18/22 Unknown Hyposegmented Neuts Not Reportable 04/18/22 Unknown Hypogranular Neuts Not Reportable 04/18/22 Unknown Smudge Cells Not Reportable 04/18/22 Unknown Toxic Granulation 2+ 04/18/22 Unknown Toxic Vacuolation Not Reportable 04/18/22 Unknown Dohle Bodies Not Reportable 04/18/22 Unknown Pelger-Huet Anomaly Not Reportable 04/18/22 Unknown Regla Rods Not Reportable 04/18/22 Unknown Platelet Estimate Consistent w auto 04/18/22 Unknown Clumped Platelets Not Reportable 04/18/22 Unknown Plt Clumps, EDTA Not Reportable 04/18/22 Unknown Large Platelets Not Reportable 04/18/22 Unknown Giant Platelets Not Reportable 04/18/22 Unknown Platelet Satelliting Not Reportable 04/18/22 Unknown Plt Morphology Comment Not Reportable 04/18/22 Unknown RBC Morphology Not Reportable 04/18/22 Unknown Dimorphic RBCs Not Reportable 04/18/22 Unknown Polychromasia Not Reportable 04/18/22 Unknown Hypochromasia Not Reportable 04/18/22 Unknown Poikilocytosis Not Reportable 04/18/22 Unknown Anisocytosis Not Reportable 04/18/22 Unknown Microcytosis Not Reportable 04/18/22 Unknown Macrocytosis Not Reportable 04/18/22 Unknown Spherocytes Not Reportable 04/18/22 Unknown Pappenheimer Bodies Not Reportable 04/18/22 Unknown Sickle Cells Not Reportable 04/18/22 Unknown Target Cells Not Reportable 04/18/22 Unknown Tear Drop Cells Not Reportable 04/18/22 Unknown Ovalocytes Not Reportable 04/18/22 Unknown Helmet Cells Not Reportable 04/18/22 Unknown Soto-Divide Bodies Not Reportable 04/18/22 Unknown [place] Rings Not Reportable 04/18/22 Unknown [place] Cells Not Reportable 04/18/22 Unknown Bite Cells Not Reportable 04/18/22 Unknown Crenated Cell Not Reportable 04/18/22 Unknown Elliptocytes Not Reportable 04/18/22 Unknown Acanthocytes (Spur) Not Reportable 04/18/22 Unknown Rouleaux Not Reportable 04/18/22 Unknown Hemoglobin C Crystals Not Reportable 04/18/22 Unknown Schistocytes Not Reportable 04/18/22 Unknown Malaria parasites Not Reportable 04/18/22 Unknown [place] Bodies Not Reportable 04/18/22 Unknown Hem Pathologist Commnt No 04/18/22 Unknown PT 15.6 Sec. (12.2-14.9) H 04/18/22 Unknown INR 1.08 (0.87-1.13) 04/18/22 Unknown APTT 28.6 Sec. (24.2-36.6) 04/18/22 Unknown Heparin Anti-Xa Level < 0.10 U.I./ml (0.3-0.7) L 04/18/22 04:00 ABG pH 7.119 pH Units (7.350-7.450) L* 04/18/22 06:20 ABG pCO2 58.0 mm Hg 04/18/22 06:20 ABG pO2 56.1 mm Hg (80.0-90.0) L 04/18/22 06:20 ABG HCO3 18.4 mmol/L (20.0-26.0) L 04/18/22 06:20 ABG O2 Saturation 80.7 % (95.0-99.0) L 04/18/22 06:20 ABG O2 Content 16.0 (0.0-44) 04/18/22 06:20 ABG Base Excess -11.4 mmol/L (-2.0-3.0) L 04/18/22 06:20 ABG Hemoglobin 14.4 gm/dl (14.0-18.0) 04/18/22 06:20 ABG Carboxyhemoglobin 1.0 % (0.0-5.0) 04/18/22 06:20 ABG Methemoglobin 0.8 % (0.0-1.5) 04/18/22 06:20 Oxyhemoglobin 79.2 % (95.0-99.0) L 04/18/22 06:20 FiO2 100 % 04/18/22 06:20 Sodium 142 mmol/L (137-145) 04/18/22 Unknown Potassium 4.0 mmol/L (3.6-5.0) 04/18/22 Unknown Chloride 101.4 mmol/L (98-107) 04/18/22 Unknown Carbon Dioxide 18 mmol/L (22-30) L 04/18/22 Unknown Anion Gap 27 mmol/L 04/18/22 Unknown BUN 26 mg/dL (9-20) H 04/18/22 Unknown Creatinine 2.5 mg/dL (0.8-1.3) H D 04/18/22 Unknown Estimated GFR 32 ml/min 04/18/22 Unknown BUN/Creatinine Ratio 10 % 04/18/22 Unknown Glucose 330 mg/dL (75-100) H 04/18/22 Unknown POC Glucose 305 mg/dL (70-105) H 04/18/22 06:04 Lactic Acid 7.90 mmol/L (0.7-2.0) H* 04/18/22 01:07 Calcium 7.9 mg/dL (8.4-10.2) L 04/18/22 Unknown Total Bilirubin 0.50 mg/dL (0.1-1.2) 04/18/22 Unknown AST 463 units/L (5-40) H 04/18/22 Unknown ALT 249 units/L (7-56) H 04/18/22 Unknown Alkaline Phosphatase 95 units/L (35-129) 04/18/22 Unknown Total Creatine Kinase 488 units/L (55-170) H 04/18/22 01:07 CK-MB (CK-2) 25.3 ng/mL (0.0-4.0) H 04/18/22 01:07 CK-MB (CK-2) Rel Index 5.1 (0-4) H 04/18/22 01:07 Troponin T 0.665 ng/mL (0.00-0.029) H* D 04/18/22 01:07 Total Protein 6.5 g/dL (6.3-8.2) 04/18/22 Unknown Albumin 3.3 g/dL (3.9-5) L 04/18/22 Unknown Albumin/Globulin Ratio 1.0 % 04/18/22 Unknown Triglycerides 57 mg/dL (2-149) 04/17/22 19:56 Cholesterol 106 mg/dL (50-199) 04/17/22 19:56 LDL Cholesterol Direct 57 mg/dL (50-130) 04/17/22 19:56 HDL Cholesterol 40 mg/dL (40-59) 04/17/22 19:56 Cholesterol/HDL Ratio 2.65 % 04/17/22 19:56 Blood Type A POSITIVE 04/17/22 19:58 Antibody Screen Negative 04/17/22 19:58 Microbiology: Microbiology 04/17/22 21:42 Peripheral/Venous Blood Culture - Preliminary Culture in Progress 04/17/22 21:42 Peripheral/Venous Blood Culture - Preliminary Culture in Progress Dunbar/IV: Voiding Method Indwelling Catheter Active Medications - Current Medications Current Medications: Generic Name Dose Route Start Last Admin Trade Name Freq PRN Reason Stop Dose Admin Acetaminophen 650 mg 04/17/22 19:48 Acetaminophen 325 Mg Tab PO Q6H PRN Pain MILD(1-3)/Fever >100.5/CHE Albuterol 2.5 mg 04/17/22 19:48 Albuterol 2.5 Mg/3 Ml Nebu IH Q3HRT PRN Shortness Of Breath Dextrose 0 ml 04/17/22 23:46 Dextrose 50% In Water (25gm) 50 Ml Syringe IV Q30MIN PRN Hypoglycemia Protocol Famotidine 20 mg 04/18/22 10:00 Famotidine 20 Mg/2 Ml Inj IV QAM FLACO Fentanyl 50 mcg 04/17/22 20:22 04/18/22 03:52 Fentanyl 100 Mcg/2 Ml Inj IV 50 mcg Q10MIN PRN Administration ANALGESIA Heparin Sodium (Porcine) 4,600 unit 04/18/22 04:13 Heparin 10,000 Units/10 Ml Vial 40 unit/kg (4600 unit) IV Q6H PRN Anti-Xa Assay < 0.1 units/ml Hydrophilic Ointment 1 applic 04/18/22 06:02 Lip Therapy Vaseline TP Q2HR PRN Dry Lips Amiodarone HCl 900 mg/ 500 mls @ 33.333 mls/hr 04/17/22 20:00 04/18/22 08:19 Dextrose IV 0.5 mg/min DIRECT FLACO 16.667 mls/hr Titration Protocol 1 MG/MIN NORepinephrine/NS 8 MG-250 ML 8 mg in 250 mls @ 3.75 mls/hr 04/17/22 21:00 04/18/22 10:36 Norepinephrine/Ns 8 Mg-250 Ml (Double Conc) IV 16 mcg/min TITRATE FLACO 30 mls/hr Titration Protocol 2 MCG/MIN Fentanyl Citrate 2,000 mcg in 100 mls @ 5.443 mls/hr 04/17/22 21:00 04/18/22 09:44 Fentanyl Drip Premix IV 4 mcg/kg/hr TITR FLACO 21.772 mls/hr Administration Protocol 1 MCG/KG/HR Vasopressin 20 unit/ Sodium 101 mls @ 9.09 mls/hr 04/17/22 23:45 04/18/22 09:45 Chloride IV 0.03 units/min TITR FLACO 9.09 mls/hr Administration Protocol 0.03 UNITS/MIN Heparin Sodium/Sodium Chloride 25,000 unit in 500 mls @ 20 mls/hr 04/18/22 06:00 Heparin/ 0.45% Nacl-25,000 Unit/500 Ml IV TITRATE FLACO Protocol 1,000 UNITS/HR Propofol 1,000 mg in 100 mls @ 3.456 mls/hr 04/18/22 07:00 04/18/22 08:00 Diprivan 10 Mg/Ml IV 5 mcg/kg/min TITR FLACO 3.456 mls/hr Administration Protocol 5 MCG/KG/MIN Levofloxacin/Dextrose 750 mg in 150 mls @ 100 mls/hr 04/18/22 22:00 Levaquin 750mg/150ml IV Q48H FLACO Protocol Phenylephrine HCl 100 mg/ 100 mls @ 3 mls/hr 04/18/22 07:30 Sodium Chloride IV TITR FLACO Protocol 50 MCG/MIN Sodium Bicarbonate 150 meq/ 1,150 mls @ 100 mls/hr 04/18/22 08:00 04/18/22 08:21 Dextrose IV 04/20/22 19:29 100 mls/hr DIRECT FLACO Administration Insulin Human Lispro 0 unit 04/18/22 00:00 04/18/22 06:10 Insulin Lispro 100 Unit/Ml SUB-Q 6 unit Q6HR FLACO Administration Protocol Multi-Ingred Cream/Lotion/Oil/Oint 1 applic 04/18/22 06:02 Mineral Oil/Petrolatum, White Ophth Oint 3.5 Gm OU Q4HR PRN Dry Eye(s) Oxycodone/Acetaminophen 1 tab 04/17/22 19:48 Oxycodone /Acetaminophen 5-325mg Tab PO Q16H PRN Pain, Moderate (4-6) Senna/Docusate Sodium 1 tab 04/18/22 10:00 Sennosides/Docusate Sodium 8.6/50 Mg Tab FEEDTUBE BID FLACO Sodium Chloride 10 ml 04/17/22 22:00 04/17/22 23:17 Sodium Chloride 0.9% 10 Ml Flush Syringe IV 10 ml BID FLACO Administration Sodium Chloride 10 ml 04/17/22 19:48 Sodium Chloride 0.9% 10 Ml Flush Syringe IV PRN PRN LINE FLUSH Nutrition/Malnutrition Assess - Dietary Evaluation Nutrition/Malnutrition Findings: Nutrition Notes Start: 04/18/22 08:52 Freq: Status: Active Protocol: Document 04/18/22 08:53 TW (Rec: 04/18/22 09:21 TW [id number]) Nutrition Notes Need for Assessment generated from: MD Order Initial or Follow up Assessment Current Diagnosis Acute Kidney Injury,Diabetes, Sepsis,Hypertension, Respiratory Failure Other Pertinent Diagnosis CARDIAC ARREST Current Diet NPO Labs/Tests CO2 18, BUN 26, CREATININE 2.5 , GLUCOSE 330, Ca 7.9 (ADJ. 8. 46) Pertinent Medications AMIODARONE, HEPARIN, LEVOPHED, PHENYLEPHRINE, PROPOFOL ( PROVIDES 91 KCAL/DAY), Na BICARB, VASOPRESSIN Height 5 ft 9 in Weight 115.2 kg [place] Body Weight (kg) 72.72 BMI 37.5 Weight Status Obese Subjective/Other Information RD CONSULTED TO EVALUATE NUTRITIONAL INTAKE AND TUBE FEED. PT IS INTUBATED. NEPHROLOGY CONSULTED. Burn Absent Trauma Absent Minimum of two criteria No #1 Nutrition Diagnosis Inadequate oral intake Etiology INTUBATION As Evidenced by Signs and Symptoms NPO Is patient on ventilator? Yes Is Patient Ambulatory and/or Out of Bed No REE-([facility]-confined to bed) 2323.608 Kcal/Kg value to use for calculation 16 Approximate Energy Requirements Using 1843 kcal/Kg Calculation Used for Recommendations Kcal/kg Additional Notes PROTEIN:0.8-1.2 G/KG AdjBW 75- 113 G/DAY FLUID: 1 ML/KCAL Nutrition Intervention Nutrition Support: GLUCERNA 1.2 @ 65 ML/H WITH 100 ML WATER FLUSH Q4H Kcal 1,872 Protein (gm) 94 Carbohydrates (gm) 179 Fat (gm) 94 Fluid (mL) 1,256 Fiber (gm) 25 Goal #1 TF TOLERANCE Goal #2 TF TO PROVIDE AT LEAST 75% OF ENERGY AND PROTEIN NEEDS Anticipated Discharge Needs: UNABLE TO IDENTIFY AT THIS TIME Follow-Up By: 04/20/22 Additional Comments F/U FOR NEW TF, VENT STATUS, PRESSORS, PROPOFOL <GABRIELE HUFF - Last Filed: 04/19/22 07:15> Assessment and Plan Assessment and plan: I saw and evaluated the patient. I agree with the findings and the plan of care as documented in the Nurse Practitioner's~note, with the following corrections and additions. Hospitalist Physical - Constitutional Vitals: Temp Pulse Resp BP Pulse Ox 98.0 F 113 H 25 H 98/73 100 04/19/22 04:00 04/19/22 04:30 04/19/22 04:30 04/19/22 04:30 04/19/22 04:30 HEART Score - HEART Score Troponin: Troponin T 2.670 ng/mL (0.00-0.029) H* D 04/19/22 00:35 Results - Labs CBC & Chem 7: 04/19/22 03:45 04/19/22 03:45 Labs: Laboratory Last Values WBC 14.2 K/mm3 (4.5-11.0) H 04/19/22 03:45 RBC 4.25 M/mm3 (3.65-5.03) 04/19/22 03:45 Hgb 12.3 gm/dl (11.8-15.2) 04/19/22 03:45 Hct 37.3 % (35.5-45.6) D 04/19/22 03:45 MCV 88 fl (84-94) 04/19/22 03:45 MCH 29 pg (28-32) 04/19/22 03:45 MCHC 33 % (32-34) 04/19/22 03:45 RDW 14.3 % (13.2-15.2) 04/19/22 03:45 Plt Count 150 K/mm3 (140-440) 04/19/22 03:45 Lymph % (Auto) 23.0 % (13.4-35.0) 04/17/22 19:58 [place] % (Auto) 3.2 % (0.0-7.3) 04/18/22 Unknown Eos % (Auto) 0.1 % (0.0-4.3) 04/18/22 Unknown Baso % (Auto) 0.6 % (0.0-1.8) 04/17/22 19:58 Lymph # (Auto) 2.7 K/mm3 (1.2-5.4) 04/17/22 19:58 [place] # (Auto) 0.3 K/mm3 (0.0-0.8) 04/18/22 Unknown Eos # (Auto) 0.0 K/mm3 (0.0-0.4) 04/18/22 Unknown Baso # (Auto) 0.1 K/mm3 (0.0-0.1) 04/18/22 Unknown Add Manual Diff Complete 04/18/22 Unknown Total Counted 100 04/18/22 Unknown Seg Neutrophils % Evaporator Operator 04/18/22 Unknown Seg Neuts % (Manual) 81.0 % (40.0-70.0) H 04/18/22 Unknown Band Neutrophils % 3.0 % 04/18/22 Unknown Lymphocytes % (Manual) 12.0 % (13.4-35.0) L 04/18/22 Unknown Reactive Lymphs % (Man) 0 % 04/18/22 Unknown Monocytes % (Manual) 2.0 % (0.0-7.3) 04/18/22 Unknown Eosinophils % (Manual) 0 % (0.0-4.3) 04/18/22 Unknown Basophils % (Manual) 0 % (0.0-1.8) 04/18/22 Unknown Metamyelocytes % 2.0 % 04/18/22 Unknown Myelocytes % 0 % 04/18/22 Unknown Promyelocytes % 0 % 04/18/22 Unknown Blast Cells % 0 % 04/18/22 Unknown Nucleated RBC % Not Reportable 04/18/22 Unknown Seg Neutrophils # 9.8 K/mm3 (1.8-7.7) H 04/18/22 Unknown Seg Neutrophils # Man 8.7 K/mm3 (1.8-7.7) H 04/18/22 Unknown Band Neutrophils # 0.3 K/mm3 04/18/22 Unknown Lymphocytes # (Manual) 1.3 K/mm3 (1.2-5.4) 04/18/22 Unknown Abs React Lymphs (Man) 0.0 K/mm3 04/18/22 Unknown Monocytes # (Manual) 0.2 K/mm3 (0.0-0.8) 04/18/22 Unknown Eosinophils # (Manual) 0.0 K/mm3 (0.0-0.4) 04/18/22 Unknown Basophils # (Manual) 0.0 K/mm3 (0.0-0.1) 04/18/22 Unknown Metamyelocytes # 0.2 K/mm3 04/18/22 Unknown Myelocytes # 0.0 K/mm3 04/18/22 Unknown Promyelocytes # 0.0 K/mm3 04/18/22 Unknown Blast Cells # 0.0 K/mm3 04/18/22 Unknown WBC Morphology Not Reportable 04/18/22 Unknown Hypersegmented Neuts Not Reportable 04/18/22 Unknown Hyposegmented Neuts Not Reportable 04/18/22 Unknown Hypogranular Neuts Not Reportable 04/18/22 Unknown Smudge Cells Not Reportable 04/18/22 Unknown Toxic Granulation 2+ 04/18/22 Unknown Toxic Vacuolation Not Reportable 04/18/22 Unknown Dohle Bodies Not Reportable 04/18/22 Unknown Pelger-Huet Anomaly Not Reportable 04/18/22 Unknown Regla Rods Not Reportable 04/18/22 Unknown Platelet Estimate Consistent w auto 04/18/22 Unknown Clumped Platelets Not Reportable 04/18/22 Unknown Plt Clumps, EDTA Not Reportable 04/18/22 Unknown Large Platelets Not Reportable 04/18/22 Unknown Giant Platelets Not Reportable 04/18/22 Unknown Platelet Satelliting Not Reportable 04/18/22 Unknown Plt Morphology Comment Not Reportable 04/18/22 Unknown RBC Morphology Not Reportable 04/18/22 Unknown Dimorphic RBCs Not Reportable 04/18/22 Unknown Polychromasia Not Reportable 04/18/22 Unknown Hypochromasia Not Reportable 04/18/22 Unknown Poikilocytosis Not Reportable 04/18/22 Unknown Anisocytosis Not Reportable 04/18/22 Unknown Microcytosis Not Reportable 04/18/22 Unknown Macrocytosis Not Reportable 04/18/22 Unknown Spherocytes Not Reportable 04/18/22 Unknown Pappenheimer Bodies Not Reportable 04/18/22 Unknown Sickle Cells Not Reportable 04/18/22 Unknown Target Cells Not Reportable 04/18/22 Unknown Tear Drop Cells Not Reportable 04/18/22 Unknown Ovalocytes Not Reportable 04/18/22 Unknown Helmet Cells Not Reportable 04/18/22 Unknown Soto-Divide Bodies Not Reportable 04/18/22 Unknown [place] Rings Not Reportable 04/18/22 Unknown [place] Cells Not Reportable 04/18/22 Unknown Bite Cells Not Reportable 04/18/22 Unknown Crenated Cell Not Reportable 04/18/22 Unknown Elliptocytes Not Reportable 04/18/22 Unknown Acanthocytes (Spur) Not Reportable 04/18/22 Unknown Rouleaux Not Reportable 04/18/22 Unknown Hemoglobin C Crystals Not Reportable 04/18/22 Unknown Schistocytes Not Reportable 04/18/22 Unknown Malaria parasites Not Reportable 04/18/22 Unknown [place] Bodies Not Reportable 04/18/22 Unknown Hem Pathologist Commnt No 04/18/22 Unknown PT 15.6 Sec. (12.2-14.9) H 04/18/22 Unknown INR 1.08 (0.87-1.13) 04/18/22 Unknown APTT 28.6 Sec. (24.2-36.6) 04/18/22 Unknown Heparin Anti-Xa Level 0.18 U.I./ml (0.3-0.7) L 04/19/22 02:08 ABG pH 7.502 pH Units (7.350-7.450) H 04/18/22 21: ABG pCO2 28.7 mm Hg 04/18/22 21: ABG pO2 144.5 mm Hg (80.0-90.0) H 04/18/22 21: ABG HCO3 22.0 mmol/L (20.0-26.0) 04/18/22 21: ABG O2 Saturation 98.9 % (95.0-99.0) 04/18/22 21: ABG O2 Content 17.3 (0.0-44) 04/18/22 21: ABG Base Excess -0.2 mmol/L (-2.0-3.0) 04/18/22 21: ABG Hemoglobin 12.5 gm/dl (14.0-18.0) L 04/18/22 21: ABG Carboxyhemoglobin 1.0 % (0.0-5.0) 04/18/22 21: ABG Methemoglobin 0.5 % (0.0-1.5) 04/18/22 21: Oxyhemoglobin 97.4 % (95.0-99.0) 04/18/22 21: FiO2 60 % 04/18/22 21:22 Sodium 137 mmol/L (137-145) 04/19/22 03:45 Potassium 3.9 mmol/L (3.6-5.0) 04/19/22 03:45 Chloride 94.2 mmol/L (98-107) L 04/19/22 03:45 Carbon Dioxide 25 mmol/L (22-30) 04/19/22 03:45 Anion Gap 22 mmol/L 04/19/22 03:45 BUN 39 mg/dL (9-20) H 04/19/22 03:45 Creatinine 3.8 mg/dL (0.8-1.3) H 04/19/22 03:45 Estimated GFR 20 ml/min 04/19/22 03:45 BUN/Creatinine Ratio 10 % 04/19/22 03:45 Glucose 243 mg/dL (75-100) H 04/19/22 03:45 POC Glucose 165 mg/dL (70-105) H 04/19/22 06:01 Lactic Acid 4.00 mmol/L (0.7-2.0) H* 04/19/22 03:45 Calcium 7.1 mg/dL (8.4-10.2) L 04/19/22 03:45 Phosphorus 4.40 mg/dL (2.5-4.5) D 04/19/22 03:45 Magnesium 1.50 mg/dL (1.7-2.3) L 04/19/22 03:45 Total Bilirubin 0.70 mg/dL (0.1-1.2) 04/19/22 03:45 AST 380 units/L (5-40) H 04/19/22 03:45 ALT 289 units/L (7-56) H 04/19/22 03:45 Alkaline Phosphatase 67 units/L (35-129) 04/19/22 03:45 Total Creatine Kinase 969 units/L (55-170) H 04/18/22 16:00 CK-MB (CK-2) 55.9 ng/mL (0.0-4.0) H 04/18/22 16:00 CK-MB (CK-2) Rel Index 5.7 (0-4) H 04/18/22 16:00 Troponin T 2.670 ng/mL (0.00-0.029) H* D 04/19/22 00:35 Total Protein 5.4 g/dL (6.3-8.2) L 04/19/22 03:45 Albumin 2.5 g/dL (3.9-5) L 04/19/22 03:45 Albumin/Globulin Ratio 0.9 % 04/19/22 03:45 Triglycerides 57 mg/dL (2-149) 04/17/22 19:56 Cholesterol 106 mg/dL (50-199) 04/17/22 19:56 LDL Cholesterol Direct 57 mg/dL (50-130) 04/17/22 19:56 HDL Cholesterol 40 mg/dL (40-59) 04/17/22 19:56 Cholesterol/HDL Ratio 2.65 % 04/17/22 19:56 Urine Color Yellow (Yellow) 04/19/22 02:08 Urine Turbidity Slightly cloudy (Clear) 04/19/22 02:08 Urine pH 5.0 (5.0-7.0) 04/19/22 02:08 Ur Specific [place] 1.005 (1.003-1.030) 04/19/22 02:08 Urine Protein 30 mg/dl mg/dL (Negative) 04/19/22 02:08 Urine Glucose (UA) Negative mg/dL (Negative) 04/19/22 02:08 Urine Ketones Negative mg/dL (Negative) 04/19/22 02:08 Urine Blood Large (Negative) A 04/19/22 02:08 Urine Nitrite Negative (Negative) 04/19/22 02:08 Ur Reducing Substances Not Reportable 04/19/22 02:08 Urine Bilirubin Negative (Negative) 04/19/22 02:08 Urine Ictotest Not Reportable 04/19/22 02:08 Urine Urobilinogen 0.2 mg/dL (<2.0) 04/19/22 02:08 Ur Leukocyte Esterase Negative (Negative) 04/19/22 02:08 Urine WBC (Auto) 88.0 /HPF (0.0-6.0) H 04/19/22 02:08 Urine RBC (Auto) 60.0 /HPF (0.0-6.0) 04/19/22 02:08 Urine Bacteria (Auto) 2+ /HPF (Negative) 04/19/22 02:08 Urine WBC Clumps 3+ /HPF 04/19/22 02:08 RBC Casts 34 /LPF 04/19/22 02:08 Urine Mucus 1+ /HPF 04/19/22 02:08 Urine Yeast (Budding) 3+ /HPF 04/19/22 02:08 Urine Eosinophils None seen (None Seen) 04/19/22 02:08 Urine Creatinine 90.9 mg/dL (0.1-20.0) H 04/19/22 02:08 Urine Sodium 54 mmol/L 04/19/22 02:08 Blood Type A POSITIVE 04/17/22 19:58 Antibody Screen Negative 04/17/22 19:58 Microbiology: Microbiology 04/17/22 21:42 Peripheral/Venous Blood Culture - Preliminary NO GROWTH AFTER 24 HOURS 04/17/22 21:42 Peripheral/Venous Blood Culture - Preliminary NO GROWTH AFTER 24 HOURS 04/17/22 21:45 Tracheal Aspirate Sputum Culture - Preliminary Dunbar/IV: Voiding Method Indwelling Catheter Active Medications - Current Medications Current Medications: Generic Name Dose Route Start Last Admin Trade Name Freq PRN Reason Stop Dose Admin Acetaminophen 650 mg 04/17/22 19:48 Acetaminophen 325 Mg Tab PO Q6H PRN Pain MILD(1-3)/Fever >100.5/CHE Albuterol 2.5 mg 04/17/22 19:48 Albuterol 2.5 Mg/3 Ml Nebu IH Q3HRT PRN Shortness Of Breath Dextrose 0 ml 04/17/22 23:46 Dextrose 50% In Water (25gm) 50 Ml Syringe IV Q30MIN PRN Hypoglycemia Protocol Famotidine 20 mg 04/18/22 10:00 04/18/22 11:12 Famotidine 20 Mg/2 Ml Inj IV 20 mg QAM FLACO Administration Fentanyl 50 mcg 04/17/22 20:22 04/18/22 03:52 Fentanyl 100 Mcg/2 Ml Inj IV 50 mcg Q10MIN PRN Administration ANALGESIA Heparin Sodium (Porcine) 4,600 unit 04/18/22 04:13 Heparin 10,000 Units/10 Ml Vial 40 unit/kg (4600 unit) IV Q6H PRN Anti-Xa Assay < 0.1 units/ml Hydrophilic Ointment 1 applic 04/18/22 06:02 Lip Therapy Vaseline TP Q2HR PRN Dry Lips Amiodarone HCl 900 mg/ 500 mls @ 33.333 mls/hr 04/17/22 20:00 04/18/22 14:02 Dextrose IV 0.5 mg/min DIRECT FLACO 16.667 mls/hr Administration Protocol 1 MG/MIN NORepinephrine/NS 8 MG-250 ML 8 mg in 250 mls @ 3.75 mls/hr 04/17/22 21:00 04/19/22 03:05 Norepinephrine/Ns 8 Mg-250 Ml (Double Conc) IV 12 mcg/min TITRATE FLACO 22.5 mls/hr Titration Protocol 2 MCG/MIN Fentanyl Citrate 2,000 mcg in 100 mls @ 5.443 mls/hr 04/17/22 21:00 04/19/22 05:33 Fentanyl Drip Premix IV 4 mcg/kg/hr TITR FLACO 21.772 mls/hr Administration Protocol 1 MCG/KG/HR Vasopressin 20 unit/ Sodium 101 mls @ 9.09 mls/hr 04/17/22 23:45 04/18/22 20:43 Chloride IV 0.03 units/min TITR FLACO 9.09 mls/hr Administration Protocol 0.03 UNITS/MIN Heparin Sodium/Sodium Chloride 25,000 unit in 500 mls @ 20 mls/hr 04/18/22 06:00 04/19/22 03:08 Heparin/ 0.45% Nacl-25,000 Unit/500 Ml IV 1,400 units/hr TITRATE FLACO 28 mls/hr Titration Protocol 1,000 UNITS/HR Propofol 1,000 mg in 100 mls @ 3.456 mls/hr 04/18/22 07:00 04/19/22 02:27 Diprivan 10 Mg/Ml IV 25 mcg/kg/min TITR FLACO 17.28 mls/hr Administration Protocol 5 MCG/KG/MIN Levofloxacin/Dextrose 750 mg in 150 mls @ 100 mls/hr 04/18/22 22:00 04/18/22 21:43 Levaquin 750mg/150ml IV 100 mls/hr Q48H FLACO Administration Protocol Phenylephrine HCl 100 mg/ 100 mls @ 3 mls/hr 04/18/22 07:30 Sodium Chloride IV TITR FLACO Protocol 50 MCG/MIN Sodium Bicarbonate 150 meq/ 1,150 mls @ 100 mls/hr 04/18/22 08:00 04/19/22 05:33 Dextrose IV 04/20/22 19:29 100 mls/hr DIRECT FLACO Administration Dobutamine HCl/Dextrose 500 mg in 250 mls @ 17.28 mls/hr 04/18/22 11:00 04/18/22 12:30 Dobutrex Drip 500mg/D5w 250ml IV 5 mcg/kg/min DIRECT FLACO 17.28 mls/hr Administration Protocol 5 MCG/KG/MIN Dopamine HCl/Dextrose 800 mg in 250 mls @ 4.32 mls/hr 04/19/22 02:00 04/19/22 02:29 Dopamine 800 Mg/D5w 250ml IV 2 mcg/kg/min TITR FLACO 4.32 mls/hr Administration Protocol 2 MCG/KG/MIN Insulin Glargine 15 units 04/18/22 22:00 04/18/22 21:49 Insulin Glargine 100 Units/Ml SUB-Q 15 units QHS FLACO Administration Insulin Human Lispro 0 unit 04/18/22 00:00 04/19/22 07:09 Insulin Lispro 100 Unit/Ml SUB-Q 3 unit Q6HR FLACO Administration Protocol Multi-Ingred Cream/Lotion/Oil/Oint 1 applic 04/18/22 06:02 Mineral Oil/Petrolatum, White Ophth Oint 3.5 Gm OU Q4HR PRN Dry Eye(s) Oxycodone/Acetaminophen 1 tab 04/17/22 19:48 Oxycodone /Acetaminophen 5-325mg Tab PO Q16H PRN Pain, Moderate (4-6) Senna/Docusate Sodium 1 tab 04/18/22 10:00 04/18/22 21:50 Sennosides/Docusate Sodium 8.6/50 Mg Tab FEEDTUBE 1 tab BID FLACO Administration Sodium Chloride 10 ml 04/17/22 22:00 04/18/22 11:12 Sodium Chloride 0.9% 10 Ml Flush Syringe IV 10 ml BID FLACO Administration Sodium Chloride 10 ml 04/17/22 19:48 Sodium Chloride 0.9% 10 Ml Flush Syringe IV PRN PRN LINE FLUSH Nutrition/Malnutrition Assess - Dietary Evaluation Nutrition/Malnutrition Findings: Nutrition Notes Start: 04/18/22 08:52 Freq: Status: Active Protocol: Document 04/18/22 08:53 TW (Rec: 04/18/22 09:21 TW [id number]) Nutrition Notes Need for Assessment generated from: MD Order Initial or Follow up Assessment Current Diagnosis Acute Kidney Injury,Diabetes, Sepsis,Hypertension, Respiratory Failure Other Pertinent Diagnosis CARDIAC ARREST Current Diet NPO Labs/Tests CO2 18, BUN 26, CREATININE 2.5 , GLUCOSE 330, Ca 7.9 (ADJ. 8. 46) Pertinent Medications AMIODARONE, HEPARIN, LEVOPHED, PHENYLEPHRINE, PROPOFOL ( PROVIDES 91 KCAL/DAY), Na BICARB, VASOPRESSIN Height 5 ft 9 in Weight 115.2 kg [place] Body Weight (kg) 72.72 BMI 37.5 Weight Status Obese Subjective/Other Information RD CONSULTED TO EVALUATE NUTRITIONAL INTAKE AND TUBE FEED. PT IS INTUBATED. NEPHROLOGY CONSULTED. Burn Absent Trauma Absent Minimum of two criteria No #1 Nutrition Diagnosis Inadequate oral intake Etiology INTUBATION As Evidenced by Signs and Symptoms NPO Is patient on ventilator? Yes Is Patient Ambulatory and/or Out of Bed No REE-([facility]-confined to bed) 2323.608 Kcal/Kg value to use for calculation 16 Approximate Energy Requirements Using 1843 kcal/Kg Calculation Used for Recommendations Kcal/kg Additional Notes PROTEIN:0.8-1.2 G/KG AdjBW 75- 113 G/DAY FLUID: 1 ML/KCAL Nutrition Intervention Nutrition Support: GLUCERNA 1.2 @ 65 ML/H WITH 100 ML WATER FLUSH Q4H Kcal 1,872 Protein (gm) 94 Carbohydrates (gm) 179 Fat (gm) 94 Fluid (mL) 1,256 Fiber (gm) 25 Goal #1 TF TOLERANCE Goal #2 TF TO PROVIDE AT LEAST 75% OF ENERGY AND PROTEIN NEEDS Anticipated Discharge Needs: UNABLE TO IDENTIFY AT THIS TIME Follow-Up By: 04/20/22 Additional Comments F/U FOR NEW TF, VENT STATUS, PRESSORS, PROPOFOL
[2022-04-18] MEDS ORDERED: DOBUTamine/D5W 500 MG/250 ML 500 MG/250 ML BAG IV SCH (11:00)
[2022-04-18] MEDS: FAMOTIDINE 20 MG/2 ML INJ IV SCH (11:12)
[2022-04-18] MEDS: SENNOSIDES/DOCUSATE SODIUM 8.6/50 MG TAB FEEDTUBE SCH ×2 (11:12→21:50)
--- NOTE | 2022-04-18 11:48 | Consultation ---
History of Present Illness - Reason for Consult Consult date: 04/18/22 acute renal failure Requesting physician: GABRIELE HUFF - History of Present Illness The patient is a 61 YO male with history notable for Morbid Obesity, HTN, DM, HLD and A.fib who presented to [facility] s/p Cardiac arrest. patient was not able to provide any history and there was no family member at the bedside. Patient was intially presented to [facility] for CP evaluation. Patient went to the restroom and was found unresponsive in the restroom. EMS found him in V.fib Cardiac arrest. Patient treated with ACLS protocol and was subsequently intubated in the field and transported to [facility] for further evaluation and treatment. Currently patient is in ICU, on multiple pressors and Amio drip. Labs notable for Creat 2.5, BUN 26, bicarb 18, Lactate 7, elevated Troponin, ALT & AST. Nephrology consulted for further evaluation and treatment of VINCENT. Past History Past Medical History: diabetes, hypertension, other (See HPI) Past Surgical History: No surgical history, Other (Reviewed) Social history: . denies: smoking, alcohol abuse Family history: diabetes, hypertension Medications and Allergies Allergies Allergy/AdvReac Type Severity Reaction Status Date / Time No Known Allergies Allergy Unverified 04/17/22 19:30 Active Meds: Active Medications Acetaminophen (Acetaminophen 325 Mg Tab) 650 mg PO Q6H PRN PRN Reason: Pain MILD(1-3)/Fever >100.5/CHE Albuterol (Albuterol 2.5 Mg/3 Ml Nebu) 2.5 mg IH Q3HRT PRN PRN Reason: Shortness Of Breath Dextrose (Dextrose 50% In Water (25gm) 50 Ml Syringe) 0 ml IV Q30MIN PRN; Protocol PRN Reason: Hypoglycemia Famotidine (Famotidine 20 Mg/2 Ml Inj) 20 mg IV QAM FLACO Last Admin: 04/18/22 11:12 Dose: 20 mg Fentanyl (Fentanyl 100 Mcg/2 Ml Inj) 50 mcg IV Q10MIN PRN PRN Reason: ANALGESIA Last Admin: 04/18/22 03:52 Dose: 50 mcg Heparin Sodium (Porcine) (Heparin 10,000 Units/10 Ml Vial) 4,600 unit 40 unit/kg (4600 unit) IV Q6H PRN PRN Reason: Anti-Xa Assay < 0.1 units/ml Hydrophilic Ointment (Lip Therapy Vaseline) 1 applic TP Q2HR PRN PRN Reason: Dry Lips Amiodarone HCl 900 mg/ (Dextrose) 500 mls @ 33.333 mls/hr IV DIRECT FLACO; Protocol Last Titration: 04/18/22 08:19 Dose: 0.5 mg/min, 16.667 mls/hr NORepinephrine/NS 8 MG-250 ML (Norepinephrine/Ns 8 Mg-250 Ml (Double Conc)) 8 mg in 250 mls @ 3.75 mls/hr IV TITRATE FLACO; Protocol Last Titration: 04/18/22 10:36 Dose: 16 mcg/min, 30 mls/hr Fentanyl Citrate (Fentanyl Drip Premix) 2,000 mcg in 100 mls @ 5.443 mls/hr IV TITR FLACO; Protocol Last Admin: 04/18/22 09:44 Dose: 4 mcg/kg/hr, 21.772 mls/hr Vasopressin 20 unit/ Sodium (Chloride) 101 mls @ 9.09 mls/hr IV TITR FLACO; Protocol Last Admin: 04/18/22 09:45 Dose: 0.03 units/min, 9.09 mls/hr Heparin Sodium/Sodium Chloride (Heparin/ 0.45% Nacl-25,000 Unit/500 Ml) 25,000 unit in 500 mls @ 20 mls/hr IV TITRATE FLACO; Protocol Propofol (Diprivan 10 Mg/Ml) 1,000 mg in 100 mls @ 3.456 mls/hr IV TITR FLACO; Protocol Last Titration: 04/18/22 11:03 Dose: 0 mcg/kg/min, 0 mls/hr Levofloxacin/Dextrose (Levaquin 750mg/150ml) 750 mg in 150 mls @ 100 mls/hr IV Q48H FLACO; Protocol Phenylephrine HCl 100 mg/ (Sodium Chloride) 100 mls @ 3 mls/hr IV TITR FLACO; Protocol Sodium Bicarbonate 150 meq/ (Dextrose) 1,150 mls @ 100 mls/hr IV DIRECT FLACO Stop: 04/20/22 19:29 Last Admin: 04/18/22 08:21 Dose: 100 mls/hr Dobutamine HCl/Dextrose (Dobutrex Drip 500mg/D5w 250ml) 500 mg in 250 mls @ 17 .28 mls/hr IV DIRECT FLACO; Protocol Insulin Human Lispro (Insulin Lispro 100 Unit/Ml) 0 unit SUB-Q Q6HR FLACO; Protocol Last Admin: 04/18/22 06:10 Dose: 6 unit Multi-Ingred Cream/Lotion/Oil/Oint (Mineral Oil/Petrolatum, White Ophth Oint 3.5 Gm) 1 applic OU Q4HR PRN PRN Reason: Dry Eye(s) Oxycodone/Acetaminophen (Oxycodone /Acetaminophen 5-325mg Tab) 1 tab PO Q16H PRN PRN Reason: Pain, Moderate (4-6) Senna/Docusate Sodium (Sennosides/Docusate Sodium 8.6/50 Mg Tab) 1 tab FEEDTUBE BID FLACO Last Admin: 04/18/22 11:12 Dose: 1 tab Sodium Chloride (Sodium Chloride 0.9% 10 Ml Flush Syringe) 10 ml IV BID FLACO Last Admin: 04/18/22 11:12 Dose: 10 ml Sodium Chloride (Sodium Chloride 0.9% 10 Ml Flush Syringe) 10 ml IV PRN PRN PRN Reason: LINE FLUSH Review of Systems ROS unobtainable: due to endotracheal tube Exam - Vital Signs Vital signs: Vital Signs Temp Pulse Resp BP Pulse Ox 98 F 127 H 20 162/104 76 L 04/17/22 19:01 04/17/22 19:01 04/17/22 19:01 04/17/22 19:01 04/17/22 19:01 Results - Lab Results 04/18/22 Unknown 04/18/22 Unknown Most recent lab results ABG pH 7.119 pH Units (7.350-7.450) L* 04/18/22 06:20 ABG pCO2 58.0 mm Hg 04/18/22 06:20 ABG pO2 56.1 mm Hg (80.0-90.0) L 04/18/22 06:20 ABG HCO3 18.4 mmol/L (20.0-26.0) L 04/18/22 06:20 ABG O2 Saturation 80.7 % (95.0-99.0) L 04/18/22 06:20 Calcium 7.9 mg/dL (8.4-10.2) L 04/18/22 Unknown Assessment and Plan 1. Acute kidney injury: Vasomotor VINCENT in the setting of shock. IV contrast on 04/17. Urine lytes and Renal US. Monitor renal function. Creatinine level icnreasing. Avoid nephrotoxic agents. Meds dosage based on GFR. 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 patient is on multiple pressors. 2. FEN: Anion-gap metabolic acidosis, on bicarb drip, monitor. Replete lytes as needed. Monitor lytes and volume status. 3. S/p V.fib Cardiac arrest, POA: On Amio drip. Followed by Cards. Monitor. 4. Shock: Currently on 2 pressors. Monitor. 5. A.fib: On Amio drip. Followed by Cards. Monitor. 6. Acute Hypoxemic Respiratory Failure: Bilateral Pneumonia- Probable Aspiration. CTA negative for PE, reveals bilateral airspace disease, greater in the Upper lobs. Intubated in the filed during code on 04/17. Monitor. 7. Elevated ALT & AST: Trend. 8. Acute metabolic encephalopathy, POA: Monitor. Case d/w ICU team. Subjective: Patient was seen and examined at the bedside. Examination: General appearance: well-developed, appears stated age, obese, no distress, intubated, on vent HEENT: atraumatic, no icterus Neck: trachea midline Respiratory: ctab Heart: S1S2, appears irregular, no murmur Abdomen: soft, bowel sounds heard, NT Integumentary: no obvious rash Neurologic: not responding Ext: no edema : Dunbar catheter
[2022-04-18] MEDS: HEPARIN/ 0.45% NACL DRIP 25,000 UNIT/500 ML BAG IV SCH (12:50)
[2022-04-18 12:55] LABS: ABG Base Excess -10.6 mmol/L (-2.0-3.0); ABG HCO3 14.4 mmol/L (20.0-26.0); ABG Methemoglobin 0.5 % (0.0-1.5); ABG Oxygen Saturation 97.5 % (95.0-99.0); ABG PCO2 29.7 mm Hg; ABG PH 7.304 pH Units (7.350-7.450); ABG PO2 103.5 mm Hg (80.0-90.0)
--- NOTE | 2022-04-18 13:09 | Procedure Note ---
Date of procedure: 04/18/22 Pre-op diagnosis: Shock- Cardiogenic vs Septic Post-op diagnosis: same Procedure: Left Radial Arterial Line Placement Patient was evaluated and required arterial line placement for Hemodynanic monitoring due to high pressors requirement. Informed consent obtained from patient's spouse, Amanda Beckford A time-out was completed verifying correct patient, procedure, site, and positioning. Hand hygiene were performed immediately prior to the procedure and sterile technique was used throughout the procedure. After an Ronny test was performed to ensure adequate perfusion, the vessel was identify using an ultrasound machine, the Left wrist was then prepped using chlorhexidine scrub and draped in sterile fashion using a three quarter sheet drape. The radial artery was then again identified and the wrist was positioned in the usual fashion. Anesthesia was achieved using 1% lidocaine. Utilizing the Seldinger technique, a finder needle was inserted into the radial artery under ultrasound guidance, pulsating arterial blood return was obtained, then a guidewire was easily advanced into the radial artery. The catheter was then advanced over the wire and the needle and wire were withdrawn. The catheter was then connected to the monitor technician and zeroed, appropriate waveform and blood pressure tracing was observed on the monitor. The catheter was sutured in place, a Biopatch was placed at the insertion site and covered with a sterile dressing. The patient tolerated the procedure well and no complications noted. Total Time Spent with Patient (Minutes): 60 minutes Anesthesia: local Surgeon: ANDIE MARIANO Estimated blood loss: minimal Condition: critical Disposition: ICU
[2022-04-18] MEDS: AMIODARONE 900 MG in DEXTROSE 5% IN WATER 482 ML IV SCH (14:02)
[2022-04-18 17:54] LABS: Calcium 6.8 mg/dL (8.4-10.2)
[2022-04-18 18:52] LABS: Creatine Kinase MB 55.9 ng/mL (0.0-4.0)
[2022-04-18] MEDS: CALC GLUCONATE 1GM/NS 100 ML 1 GM/100 ML BAG IV SCH ×2 (18:59→19:34)
[2022-04-18] MEDS ORDERED: INSULIN REGULAR, HUMAN 100 UNITS/1 ML IV ONE (19:00)
[2022-04-18] MEDS ORDERED: SODIUM POLYSTYRENE 15 GM/60 ML ORAL LIQD PR ONE (19:00)
[2022-04-18] MEDS ORDERED: MAGNESIUM SULFATE 2 GM/50 ML BAG IV ONE (20:00)
[2022-04-18 21:37] LABS: ABG Base Excess -0.2 mmol/L (-2.0-3.0); ABG Methemoglobin 0.5 % (0.0-1.5); ABG Oxygen Saturation 98.9 % (95.0-99.0); ABG PCO2 28.7 mm Hg; ABG PH 7.502 pH Units (7.350-7.450); ABG PO2 144.5 mm Hg (80.0-90.0)
[2022-04-18 21:57] LABS: Calcium 7.3 mg/dL (8.4-10.2)
[2022-04-18] MEDS ORDERED: INSULIN GLARGINE 100 UNITS/ML SUB-Q SCH (22:00)
[2022-04-19] MEDS: fentaNYL DRIP Premix 2,000 MCG/100 ML BAG IV SCH ×6 (01:05→22:07)
[2022-04-19] MEDS: NORepinephrine/NS 8 MG-250 ML 8 MG/250 ML INFUS..BTL IV SCH ×2 (01:07→14:07)
[2022-04-19] MEDS ORDERED: DOPamine 800 MG/D5W 250ML 800 MG/250 ML BAG IV SCH (02:00)
[2022-04-19] MEDS: HEPARIN/ 0.45% NACL DRIP 25,000 UNIT/500 ML BAG IV SCH ×2 (02:26→19:49)
[2022-04-19 02:34] LABS: Bacteria,Urine 2+ /HPF (Negative); Mucus,Urine 1+ /HPF; Red Blood Cell Casts,Urine 34 /LPF
[2022-04-19 02:41] LABS: Bilirubin,Urine Negative (Negative); Blood,Urine Large (Negative); Color,Urine Yellow (Yellow)
[2022-04-19 02:42] LABS: Urobilinogen,Urine 0.2 mg/dL (<2.0)
[2022-04-19] MEDS: INSULIN LISPRO 100 UNIT/ML SUB-Q SCH ×4 (02:51→17:25)
[2022-04-19 02:55] LABS: Creatinine,Urine 90.9 mg/dL (0.1-20.0)
[2022-04-19 04:12] LABS: Hematocrit 37.3 % (35.5-45.6); Hemoglobin 12.3 gm/dl (11.8-15.2); Mean Corpuscular HGB Conc 33 % (32-34); Mean Corpuscular Volume 88 fl (84-94); Platelet Count 150 K/mm3 (140-440); Red Blood Count 4.25 M/mm3 (3.65-5.03); Red Cell Distribution Width 14.3 % (13.2-15.2)
[2022-04-19 04:34] LABS: Albumin 2.5 g/dL (3.9-5); Calcium 7.1 mg/dL (8.4-10.2)
[2022-04-19] MEDS: SODIUM BICARBONATE 150 MEQ in DEXTROSE 5% IN WATER 1,000 ML IV SCH (05:33)
[2022-04-19] MEDS: CALC GLUCONATE 1GM/NS 100 ML 1 GM/100 ML BAG IV SCH (08:06)
[2022-04-19] MEDS: VASOPRESSIN 20 UNIT in SODIUM CHLORIDE 0.9% 100 ML IV SCH (08:12)
[2022-04-19 08:52] LABS: Creatine Kinase MB 28.5 ng/mL (0.0-4.0)
--- NOTE | 2022-04-19 08:54 | XRay Report ---
CHEST 1 VIEW INDICATION: follow up respiratory failure. COMPARISON: One day prior. FINDINGS: Support devices: Satisfactory position. Heart: Stable. Lungs/Pleura: Mild pulmonary opacities are stable. No pneumothorax. IMPRESSION: 1. No significant change. Signer Name: Matt Jacobo MD Signed: 04/19/2022 8:50 AM Workstation Name: [id number]
[2022-04-19 08:55] LABS: ABG Base Excess 3.4 mmol/L (-2.0-3.0); ABG HCO3 27.1 mmol/L (20.0-26.0); ABG Methemoglobin 0.6 % (0.0-1.5); ABG Oxygen Saturation 91.7 % (95.0-99.0); ABG PH 7.471 pH Units (7.350-7.450); ABG PO2 58.9 mm Hg (80.0-90.0)
[2022-04-19] MEDS ORDERED: MAGNESIUM SULFATE 4 GM/100 ML BAG IV ONE (09:00)
--- NOTE | 2022-04-19 09:59 | Progress Note ---
Assessment and Plan 1. Acute kidney injury: Vasomotor VINCENT in the setting of shock. IV contrast on 04/17. Renal US ordered, pending. Monitor renal function. Creatinine level increasing. Renal prognosis is guarded. Avoid nephrotoxic agents. Meds dosage based on GFR. Monitor for FEED RESEARCH AIDE needs. Patient remain on multiple pressors. 2. FEN: Anion-gap metabolic acidosis, on bicarb drip, monitor. Replete lytes as needed. Monitor lytes and volume status. 3. S/p V.fib Cardiac arrest, POA: On Amio drip. Followed by Cards. Monitor. 4. Shock: Currently on Levophed and Dopamine. Monitor. 5. A.fib: On Amio drip. Followed by Cards. Monitor. 6. Acute Hypoxemic Respiratory Failure: Bilateral Pneumonia- Probable Aspiration. CTA negative for PE, reveals bilateral airspace disease, greater in the Upper lobs. Intubated in the filed during code on 04/17. Monitor. 7. Elevated ALT & AST: Trend. 8. Acute metabolic encephalopathy, POA: Monitor. 9. Rhabdomyolysis: Trend CK. Care plan d/w . Subjective: Patient was seen and examined at the bedside. at the the bedside. Examination: General appearance: well-developed, appears stated age, obese, no distress, intubated, on vent HEENT: atraumatic, no icterus, pupils equal Neck: trachea midline Respiratory: ctab Heart: S1S2, irregular, no murmur Abdomen: soft, bowel sounds heard, NT Integumentary: no obvious rash Neurologic: not responding Ext: no edema : Dunbar catheter Subjective Date of service: 04/19/22 Objective - Vital Signs Vital signs: Vital Signs - 12hr 04/18/22 04/18/22 04/18/22 22:00 22:03 22:11 Temperature Pulse Rate 94 H 102 H Pulse Rate [ From Monitor] Respiratory 30 H 24 Rate Blood Pressure 114/70 114/70 O2 Sat by Pulse 100 99 99 Oximetry 04/18/22 04/18/22 04/18/22 22:15 22:30 22:45 Temperature Pulse Rate 88 89 99 H Pulse Rate [ From Monitor] Respiratory 25 H 25 H 25 H Rate Blood Pressure 122/71 124/84 129/72 O2 Sat by Pulse 100 100 100 Oximetry 04/18/22 04/18/22 04/18/22 23:00 23:15 23:30 Temperature Pulse Rate 91 H 95 H 98 H Pulse Rate [ From Monitor] Respiratory 24 24 25 H Rate Blood Pressure 113/65 108/65 120/75 O2 Sat by Pulse 100 100 100 Oximetry 04/18/22 04/19/22 04/19/22 23:45 00:00 00:15 Temperature 97.8 F Pulse Rate 99 H 98 H 93 H Pulse Rate [ 92 H From Monitor] Respiratory 25 H 25 H 24 Rate Blood Pressure 119/66 112/76 112/73 O2 Sat by Pulse 100 100 100 Oximetry 04/19/22 04/19/22 04/19/22 00:16 00:30 00:45 Temperature Pulse Rate 96 H 95 H 103 H Pulse Rate [ From Monitor] Respiratory 25 H 25 H Rate Blood Pressure 112/73 106/72 95/71 O2 Sat by Pulse 100 100 100 Oximetry 04/19/22 04/19/22 04/19/22 01:01 01:15 01:30 Temperature Pulse Rate 97 H 97 H 94 H Pulse Rate [ From Monitor] Respiratory 25 H 25 H 25 H Rate Blood Pressure 85/64 95/71 110/79 O2 Sat by Pulse 100 100 100 Oximetry 04/19/22 04/19/22 04/19/22 01:45 02:01 02:15 Temperature Pulse Rate 97 H 106 H 106 H Pulse Rate [ From Monitor] Respiratory 25 H 24 25 H Rate Blood Pressure 106/71 115/76 109/75 O2 Sat by Pulse 100 100 100 Oximetry 04/19/22 04/19/22 04/19/22 02:30 02:45 03:00 Temperature Pulse Rate 106 H 106 H 121 H Pulse Rate [ From Monitor] Respiratory 25 H 25 H 25 H Rate Blood Pressure 110/69 100/67 101/69 O2 Sat by Pulse 100 100 100 Oximetry 04/19/22 04/19/22 04/19/22 03:15 03:30 03:45 Temperature Pulse Rate 104 H 86 108 H Pulse Rate [ From Monitor] Respiratory 25 H 25 H 25 H Rate Blood Pressure 97/71 98/68 101/66 O2 Sat by Pulse 100 100 100 Oximetry 04/19/22 04/19/22 04/19/22 04:00 04:09 04:15 Temperature 98.0 F Pulse Rate 105 H 101 H 105 H Pulse Rate [ 100 H From Monitor] Respiratory 25 H 25 H Rate Blood Pressure 100/69 100/69 106/68 O2 Sat by Pulse 100 100 100 Oximetry 04/19/22 04/19/22 04/19/22 04:30 04:45 05:00 Temperature Pulse Rate 113 H 111 H 112 H Pulse Rate [ From Monitor] Respiratory 25 H 25 H 25 H Rate Blood Pressure 98/73 107/71 107/71 O2 Sat by Pulse 100 100 100 Oximetry 04/19/22 04/19/22 04/19/22 05:15 05:31 05:45 Temperature Pulse Rate 117 H 116 H 123 H Pulse Rate [ From Monitor] Respiratory 25 H 20 Rate Blood Pressure 106/78 106/78 106/78 O2 Sat by Pulse 99 96 Oximetry 04/19/22 04/19/22 04/19/22 06:00 06:15 06:30 Temperature Pulse Rate 116 H 110 H 98 H Pulse Rate [ From Monitor] Respiratory 25 H 25 H 25 H Rate Blood Pressure 105/72 110/70 113/68 O2 Sat by Pulse 97 97 Oximetry 04/19/22 04/19/22 04/19/22 06:45 07:00 07:15 Temperature Pulse Rate 104 H 108 H 108 H Pulse Rate [ From Monitor] Respiratory 25 H 25 H 25 H Rate Blood Pressure 110/70 102/66 104/72 O2 Sat by Pulse 97 96 95 Oximetry 04/19/22 04/19/22 04/19/22 07:30 07:45 08:00 Temperature 98.6 F Pulse Rate 111 H 137 H 126 H Pulse Rate [ From Monitor] Respiratory 25 H 16 23 Rate Blood Pressure 107/73 104/72 124/76 O2 Sat by Pulse 94 97 89 Oximetry 04/19/22 04/19/22 04/19/22 08:15 08:30 08:45 Temperature Pulse Rate 122 H 137 H 122 H Pulse Rate [ From Monitor] Respiratory 25 H 22 25 H Rate Blood Pressure 105/65 110/74 111/62 O2 Sat by Pulse 94 89 94 Oximetry 04/19/22 04/19/22 09:00 09:15 Temperature Pulse Rate 101 H 105 H Pulse Rate [ From Monitor] Respiratory 25 H 25 H Rate Blood Pressure 111/69 106/65 O2 Sat by Pulse 94 95 Oximetry - Lab 04/19/22 03:45 04/19/22 03:45 Most recent lab results ABG pH 7.471 pH Units (7.350-7.450) H 04/19/22 08:50 ABG pCO2 38.0 mm Hg 04/19/22 08:50 ABG pO2 58.9 mm Hg (80.0-90.0) L 04/19/22 08:50 ABG HCO3 27.1 mmol/L (20.0-26.0) H 04/19/22 08:50 ABG O2 Saturation 91.7 % (95.0-99.0) L 04/19/22 08:50 Calcium 7.1 mg/dL (8.4-10.2) L 04/19/22 03:45 Phosphorus 4.40 mg/dL (2.5-4.5) D 04/19/22 03:45 Magnesium 1.50 mg/dL (1.7-2.3) L 04/19/22 03:45 Urine Creatinine 90.9 mg/dL (0.1-20.0) H 04/19/22 02:08 Urine Sodium 54 mmol/L 04/19/22 02:08 Medications & Allergies - Medications Allergies/Adverse Reactions: Allergies No Known Allergies Allergy (Unverified 04/17/22 19:30) Active Medications: Generic Name Dose Route Start Last Admin Trade Name Freq PRN Reason Stop Dose Admin Acetaminophen 650 mg 04/17/22 19:48 Acetaminophen 325 Mg Tab PO Q6H PRN Pain MILD(1-3)/Fever >100.5/CHE Albuterol 2.5 mg 04/17/22 19:48 Albuterol 2.5 Mg/3 Ml Nebu Q3HRT PRN Shortness Of Breath Dextrose 0 ml 04/17/22 23:46 Dextrose 50% In Water (25gm) 50 Ml Syringe IV Q30MIN PRN Hypoglycemia Protocol Famotidine 20 mg 04/18/22 10:00 04/18/22 11:12 Famotidine 20 Mg/2 Ml Inj IV 20 mg QAM FLACO Administration Fentanyl 50 mcg 04/17/22 20:22 04/18/22 03:52 Fentanyl 100 Mcg/2 Ml Inj IV 50 mcg Q10MIN PRN Administration ANALGESIA Heparin Sodium (Porcine) 4,600 unit 04/18/22 04:13 Heparin 10,000 Units/10 Ml Vial 40 unit/kg (4600 unit) IV Q6H PRN Anti-Xa Assay < 0.1 units/ml Hydrophilic Ointment 1 applic 04/18/22 06:02 Lip Therapy Vaseline TP Q2HR PRN Dry Lips Amiodarone HCl 900 mg/ 500 mls @ 33.333 mls/hr 04/17/22 20:00 04/19/22 07:25 Dextrose IV 0.5 mg/min DIRECT FLACO 16.667 mls/hr Titration Protocol 1 MG/MIN NORepinephrine/NS 8 MG-250 ML 8 mg in 250 mls @ 3.75 mls/hr 04/17/22 21:00 04/19/22 08:01 Norepinephrine/Ns 8 Mg-250 Ml (Double Conc) IV 10 mcg/min TITRATE FLACO 18.75 mls/hr Titration Protocol 2 MCG/MIN Fentanyl Citrate 2,000 mcg in 100 mls @ 5.443 mls/hr 04/17/22 21:00 04/19/22 09:10 Fentanyl Drip Premix IV 4 mcg/kg/hr TITR FLACO 21.772 mls/hr Administration Protocol 1 MCG/KG/HR Vasopressin 20 unit/ Sodium 101 mls @ 9.09 mls/hr 04/17/22 23:45 04/19/22 09:44 Chloride IV 0 units/min TITR FLACO 0 mls/hr Titration Protocol 0.03 UNITS/MIN Heparin Sodium/Sodium Chloride 25,000 unit in 500 mls @ 20 mls/hr 04/18/22 06:00 04/19/22 07:25 Heparin/ 0.45% Nacl-25,000 Unit/500 Ml IV 1,400 units/hr TITRATE FLACO 28 mls/hr Titration Protocol 1,000 UNITS/HR Propofol 1,000 mg in 100 mls @ 3.456 mls/hr 04/18/22 07:00 04/19/22 08:59 Diprivan 10 Mg/Ml IV 40 mcg/kg/min TITR FLACO 27.648 mls/hr Titration Protocol 5 MCG/KG/MIN Levofloxacin/Dextrose 750 mg in 150 mls @ 100 mls/hr 04/18/22 22:00 04/18/22 21:43 Levaquin 750mg/150ml IV 100 mls/hr Q48H FLACO Administration Protocol Phenylephrine HCl 100 mg/ 100 mls @ 3 mls/hr 04/18/22 07:30 Sodium Chloride IV TITR FLACO Protocol 50 MCG/MIN Sodium Bicarbonate 150 meq/ 1,150 mls @ 100 mls/hr 04/18/22 08:00 04/19/22 07:25 Dextrose IV 04/20/22 19:29 100 mls/hr DIRECT FLACO Infusion Dobutamine HCl/Dextrose 500 mg in 250 mls @ 17.28 mls/hr 04/18/22 11:00 04/19/22 07:25 Dobutrex Drip 500mg/D5w 250ml IV Infused DIRECT FLACO Infusion Protocol 5 MCG/KG/MIN Dopamine HCl/Dextrose 800 mg in 250 mls @ 4.32 mls/hr 04/19/22 02:00 04/19/22 07:25 Dopamine 800 Mg/D5w 250ml IV 2 mcg/kg/min TITR FLACO 4.32 mls/hr Titration Protocol 2 MCG/KG/MIN Magnesium Sulfate 4 gm in 100 mls @ 25 mls/hr 04/19/22 09:00 Magnesium Sulfate 4gm/100ml IV 04/19/22 12:59 ONCE ONE Insulin Glargine 20 units 04/19/22 22:00 Insulin Glargine 100 Units/Ml SUB-Q QHS [facility] Insulin Human Lispro 0 unit 04/18/22 00:00 04/19/22 07:09 Insulin Lispro 100 Unit/Ml SUB-Q 3 unit Q6HR [facility] Administration Protocol Multi-Ingred Cream/Lotion/Oil/Oint 1 applic 04/18/22 06:02 Mineral Oil/Petrolatum, White Ophth Oint 3.5 Gm OU Q4HR PRN Dry Eye(s) Oxycodone/Acetaminophen 1 tab 04/17/22 19:48 Oxycodone /Acetaminophen 5-325mg Tab PO Q16H PRN Pain, Moderate (4-6) Senna/Docusate Sodium 1 tab 04/18/22 10:00 04/18/22 21:50 Sennosides/Docusate Sodium 8.6/50 Mg Tab FEEDTUBE 1 tab BID FLACO Administration Sodium Chloride 10 ml 04/17/22 22:00 04/19/22 08:06 Sodium Chloride 0.9% 10 Ml Flush Syringe IV Not Given BID FLACO Sodium Chloride 10 ml 04/17/22 19:48 Sodium Chloride 0.9% 10 Ml Flush Syringe IV PRN PRN LINE FLUSH
[2022-04-19] MEDS: SENNOSIDES/DOCUSATE SODIUM 8.6/50 MG TAB FEEDTUBE SCH ×2 (10:04→21:12)
[2022-04-19] MEDS: FAMOTIDINE 20 MG/2 ML INJ IV SCH (10:04)
--- NOTE | 2022-04-19 10:56 | Progress Note ---
Assessment and Plan #Cardiac arrest, reported VF #Cardiomyopathy - severe biventricular dysfunction per echo this admission #Chest discomfort #Sepsis #Atrial fibrillation with history of prior cardioversion #Elevated troponin #Elevated LFTs #Acute kidney injury #Respiratory failure / aspiration pneumonia - intubated #AMS Echo with severe biventricular dysfunction. Will plan for cardiac catheterization pending nephrology clearance given worsening Cr. Continue IV amiodarone for ventricular arrhythmia suppression and also AF rate control. Monitor LFTs. Continue IV heparin. Continue supportive care for possible sepsis. Subjective Date of service: 04/19/22 Interval history: Remains intubated/sedated. Echo showed severe biventricular dysfunction. Troponin trending up 2.98, Cr increasing 3.8, Lactate 3.4, LFTs stable/improving. Currently on heparin, amiodarone, dopamine, NE, and vasopre ssin. Tele - AF 100s Objective Vital Signs Temp Pulse Pulse Resp BP Pulse Ox 04/19/22 10:00 113 H 25 H 100/60 96 04/19/22 09:45 120 H 25 H 109/69 94 04/19/22 09:30 101 H 25 H 109/69 95 04/19/22 09:15 105 H 25 H 106/65 95 04/19/22 09:00 101 H 25 H 111/69 94 04/19/22 08:45 122 H 25 H 111/62 94 04/19/22 08:30 137 H 22 110/74 89 04/19/22 08:15 122 H 25 H 105/65 94 04/19/22 08:00 98.6 F 121 H 112 H 24 124/76 97 04/19/22 07:45 137 H 16 104/72 97 04/19/22 07:30 111 H 25 H 107/73 94 04/19/22 07:15 108 H 25 H 104/72 95 04/19/22 07:00 108 H 25 H 102/66 96 04/19/22 06:45 104 H 25 H 110/70 97 04/19/22 06:30 98 H 25 H 113/68 97 04/19/22 06:15 110 H 25 H 110/70 97 04/19/22 06:00 116 H 25 H 105/72 04/19/22 05:45 123 H 106/78 04/19/22 05:31 116 H 20 106/78 96 04/19/22 05:15 117 H 25 H 106/78 99 04/19/22 05:00 112 H 25 H 107/71 100 04/19/22 04:45 111 H 25 H 107/71 100 04/19/22 04:30 113 H 25 H 98/73 100 04/19/22 04:15 105 H 25 H 106/68 100 04/19/22 04:09 101 H 100/69 100 04/19/22 04:00 98.0 F 105 H 100 H 25 H 100/69 100 04/19/22 03:45 108 H 25 H 101/66 100 04/19/22 03:30 86 25 H 98/68 100 04/19/22 03:15 104 H 25 H 97/71 100 04/19/22 03:00 121 H 25 H 101/69 100 04/19/22 02:45 106 H 25 H 100/67 100 04/19/22 02:30 106 H 25 H 110/69 100 04/19/22 02:15 106 H 25 H 109/75 100 04/19/22 02:01 106 H 24 115/76 100 04/19/22 01:45 97 H 25 H 106/71 100 04/19/22 01:30 94 H 25 H 110/79 100 04/19/22 01:15 97 H 25 H 95/71 100 04/19/22 01:01 97 H 25 H 85/64 100 04/19/22 00:45 103 H 25 H 95/71 100 04/19/22 00:30 95 H 25 H 106/72 100 04/19/22 00:16 96 H 112/73 100 04/19/22 00:15 93 H 24 112/73 100 04/19/22 00:00 97.8 F 98 H 92 H 25 H 112/76 100 04/18/22 23:45 99 H 25 H 119/66 100 04/18/22 23:30 98 H 25 H 120/75 100 04/18/22 23:15 95 H 24 108/65 100 04/18/22 23:00 91 H 24 113/65 100 04/18/22 22:45 99 H 25 H 129/72 100 04/18/22 22:30 89 25 H 124/84 100 04/18/22 22:15 88 25 H 122/71 100 04/18/22 22:11 102 H 24 114/70 99 04/18/22 22:03 99 04/18/22 22:00 94 H 30 H 114/70 100 04/18/22 21:45 98 H 30 H 117/73 100 04/18/22 21:30 95 H 30 H 117/77 100 04/18/22 21:15 96 H 30 H 110/73 100 04/18/22 21:00 98 H 30 H 118/68 100 04/18/22 20:45 89 30 H 108/66 100 04/18/22 20:30 99 H 30 H 120/67 98 04/18/22 20:19 83 115/72 99 04/18/22 20:15 93 H 30 H 115/72 100 04/18/22 20:00 97.5 F L 81 98 H 30 H 114/72 100 04/18/22 19:45 86 30 H 102/78 100 04/18/22 19:30 87 30 H 107/68 100 04/18/22 19:15 97 H 30 H 105/66 100 04/18/22 19:00 90 30 H 112/74 99 04/18/22 18:45 96 H 30 H 98/62 100 04/18/22 18:30 125/74 97 04/18/22 18:15 98 H 22 112/76 100 04/18/22 18:00 101 H 20 109/82 99 04/18/22 17:45 97 H 23 121/75 99 04/18/22 17:30 113 H 20 129/81 97 04/18/22 17:15 92 H 30 H 121/81 100 04/18/22 17:13 133/82 100 04/18/22 17:00 97 H 30 H 122/86 100 04/18/22 16:47 102 H 122/86 100 04/18/22 16:45 88 30 H 122/86 100 04/18/22 16:30 84 30 H 121/75 100 04/18/22 16:15 83 30 H 118/75 100 04/18/22 16:00 98.1 F 84 84 30 H 115/80 83 L 04/18/22 15:45 97 H 30 H 117/77 100 04/18/22 15:30 90 30 H 118/76 100 04/18/22 15:15 94 H 30 H 111/75 100 04/18/22 15:00 89 30 H 109/86 100 04/18/22 14:45 93 H 30 H 108/78 100 04/18/22 14:30 94 H 30 H 102/69 100 04/18/22 14:15 105 H 30 H 91/69 100 04/18/22 14:00 92 H 30 H 106/72 100 04/18/22 13:45 114 H 25 H 110/77 100 04/18/22 13:36 100 04/18/22 13:30 117 H 19 117/74 99 04/18/22 13:15 104 H 30 H 116/76 100 04/18/22 13:01 95 H 16 104/56 98 04/18/22 12:45 66 30 H 59/34 98 04/18/22 12:31 72 30 H 60/38 98 04/18/22 12:15 74 30 H 77/52 100 04/18/22 12:00 98.1 F 72 71 30 H 79/49 99 04/18/22 11:45 72 29 H 87/40 98 04/18/22 11:31 71 19 105/71 96 04/18/22 11:15 76 30 H 83/63 100 04/18/22 11:01 68 18 91/61 100 - Physical Examination Narrative exam: Gen-intubated, sedated, restrained HEENT-normocephalic, atraumatic, + ETT CV-irregularly irregular rhythm, regular rate, no murmurs Lungs-intubated, mechanical BS b/l Abd-soft, nt,nd Ext-no edema, warm to touch Neuro-sedated, no obvious focal deficits appreciated Psych-affect not tested, no agitation - Labs and Meds Cardiac Enzymes 04/18/22 04/19/22 04/19/22 Range/Units 16:00 03:45 07:11 AST 380 H (5-40) units/L CK-MB (CK-2) 55.9 H 28.5 H (0.0-4.0) ng/mL CBC 04/19/22 Range/Units 03:45 WBC 14.2 H (4.5-11.0) K/mm3 RBC 4.25 (3.65-5.03) M/mm3 Hgb 12.3 (11.8-15.2) gm/dl Hct 37.3 D (35.5-45.6) % Plt Count 150 (140-440) K/mm3 Comprehensive Metabolic Panel 04/18/22 04/18/22 04/19/22 Range/Units 16:00 21:30 03:45 Sodium 136 L 139 137 (137-145) mmol/L Potassium 6.3 H* D 4.3 D 3.9 (3.6-5.0) mmol/L Chloride 97.6 L 96.6 L 94.2 L (98-107) mmol/L Carbon Dioxide 18 L 23 25 (22-30) mmol/L BUN 34 H 37 H 39 H (9-20) mg/dL Creatinine 3.5 H 3.6 H 3.8 H (0.8-1.3) mg/dL Glucose 409 H 312 H 243 H (75-100) mg/dL Calcium 6.8 L 7.3 L 7.1 L (8.4-10.2) mg/dL AST 380 H (5-40) units/L ALT 289 H (7-56) units/L Alkaline Phosphatase 67 (35-129) units/L Total Protein 5.4 L (6.3-8.2) g/dL Albumin 2.5 L (3.9-5) g/dL
--- NOTE | 2022-04-19 11:17 | Progress Note ---
<ANDIE MARIANO - Last Filed: 04/19/22 19:13> Assessment and Plan Assessment and plan: This is a 61-year-old male with known past medical history of obsesity, DM, HTN, and Atrial fibrillation s/p cardioversion over 12hrs ago, unclear if patient was on AC at home admitted s/p outside of the hospital cardiac arrest/V-fib arrest with ROSC. Hospital Course to Date: 04/18: Severely acidotic this am, now on bcarb gtt. On high dose pressors- Levophed and Vaso. Afib in control rate on the monitor, on Amiodarone and heparin gtt per protocol. Cardiology is following. Patient remains afebrile and leukocytosis improved this am. Now with worsen renal function and low UOP. Patient's EF is 25 to 30%, Dobutamine gtt initiated. Continue current IV abx, continue to trend troponin and lactic acid. Nephrology also consulted for further recs. BLE swelling noted, BLE doppler ordered to r/o DVT. 04/19: Agitation with low SPO2 overnight, sedation increased. This am ABG with worsen hypoxia on 40% Fio2, SPO2 at 90% this am. Fio2 increased to 50%, SPO2 improved above 92%. Remains on multiple pressors and bcarb gtt. Now on dopamine gtt, in Afib with RVR on the monitor. Still on Amiodarone and heparin gtts. Echo noted, EF 15 to 20%. Cardiology is following. With worsen renal function, however making urine this am. No indication for PROPOSAL ANALYST at this per Nephro. Will continue to monitor. Monitor and replace electrolytes as needed Assessment and Plan #Shock-Cardiogenic vs Septic #Atrial Fibrillation #NSTEMI #S/p Cardiac Arrest/V-Fib Arrest with ROSC - Found in the bathroom unresponsive at a [facility]. - EMS found patient in V-Fib arrest treated per ACLS ROSC achieved - Positive troponinX3, EKG with no significant ST changes - On high dose pressors- Levophed and Vaso - In AFib with RVR this am, on Amiodarone gtt and heparing gtt per protocol - Now on Dopamine gtt - 2D echo reviewed. EF 15 to 20% - Continue blood pressure monitor per protocol - Maintain MAP above 65 - Trend troponin and lactic acid - Per Cardio plan for possible LHC once patient is more stable #Acute Hypoxemic Respiratory Failure #Bilateral Pneumonia- Probable Aspiration - Intubated in the filed during code on 04/17 - Imaging reveals bilateral airspace disease, greater in the Upper lobs. Most likely aspiration - Vent setting: PRVC-40%,8,25,500 - This am ABG noted with worsen hypoxia, SPO2 at 90%. Fio2 increased to 50% - [facility] consulted, appreciate recommendations - Continue IV Abx, vent adjustement per [facility] - VAP bundle addressed - Aspiration precaution HOB above 30 - Daily SBT and SAT trials as tolerated - Daily ABG and CXR - Continue SPO2 monitoring for SPO2 goal above 92% #Acute Metabolic Encephalopathy #Face Contusion s/p Fall - Found in the bathroom unresponsive at a [facility] facility. Most likely fell and hit his head - CT head reviewed, no acute intracranial abnormality - Intubated and Sedated, propofol/fentanyl - Titrate sedation for RASS goal 0 to -2 - Daily SAT and SBT per [facility] - Avoid benzodiazepine to reduce the possibility of delirium - PRN Analgesia CPOT greater than 3 - Maintenance of sleep-wake cycle #Acute Kidney Injury([facility]INCENT) most likely ATN #Hypekalemia-improved - secondary to above. hypoperfusion/hypotension - Patient also received IV contrast - Baseline renal function is unknown - Worsen renal function this am, but making urine this am - Nephrology on consult, appreciated recommendation - Strict intake and output - Avoid nephrotoxic medications; Renally dose medications - Dunbar in place, over 500cc UOP overnight - Monitor and replace electrolytes as needed #Probably Septic Shock #Bilateral Pneumonia #Probably Aspiration Pneumonia #Severe Metabolic Acidosis-improved - Imaging reveals bilateral airspace disease, greater in the Upper lobs. Most likely aspiration - Remains afebrile, now with leukocytosis, acidosis improved - UA with elevated WBCs - Blood and sputum cultures pending - Empiric IV Abx initiated - F/U on cultures - Daily CBC monitor - Consider ID consult if febrile or/and if leukocytosis reoccur #Transaminitis #Shock Liver - most likely reactive from above/hypoperfusion - Close monitoring of LFTs, now on amiodarone gtt - Trend LFTs #Elevated D-Dimer - CTA chest with no evidence of PE - With BLE swelling- BLE doppler pending - On Heparin gtt per protocol #Type 2 Diabetes Mellitus - Hgb A1C pending - BG check and SSI Q6hrs - Avoid hypoglycemia #GI/DVT Prophylaxis - PPI- Pepcid - Heparin gtt #Advance Care Planning - Disease education data, care plan, diagnoses, and prognosis were discussed with patient's at the bedside. Patient is a FULL code. Patient's acknowledged understanding and agreed with current care plan. The high probability of a clinically significant, sudden or life threatening deterioration of the [multiple] system(s) required my full and direct attention, intervention and personal management. The aggregate critical care time was [60] minutes. This time is in addition to time spent performing reported procedures but includes the following: [x] Data Review and interpretation [x] Patient assessment and monitoring of vital signs [x] Documentation [x] Medication orders and management Disposition Plan: ICU Total Time Spent with Patient (Minutes): 60 History Interval history: Patient seen and examined at the bedside. Remains on the vent and sedated, on fentany and propofol. Per RN, patient with periods of agitation, not following commands, SPO2 dropped in the low 80s. Sedation was increased overnight. SPO2 is currently at 90%, on Fio2 of 40%. On Dopamine, levophed, Vaso, amio, heparin, and Bcarb gtts. In Afib with RVR on the monitor. Making urine this morning. Hospitalist Physical - Constitutional Vitals: Temp Pulse Resp BP Pulse Ox 98.6 F 124 H 25 H 105/64 90 04/19/22 08:00 04/19/22 11:00 04/19/22 11:00 04/19/22 11:00 04/19/22 11:00 General appearance: Present: no acute distress, other (Intubated and Sedated) - EENT Eyes: Present: PERRL - Neck Neck: Present: normal ROM - Respiratory Respiratory effort: normal Respiratory: bilateral: diminished - Cardiovascular Rhythm: regular Heart Sounds: Present: S1 & S2 - Extremities Extremities: no ischemia, pulses intact, pulses symmetrical Extremity abnormal: edema - Peripheral Assessment Generalized Edema Type: Non-pitting Edema Degree: 1+ Capillary Refill: < 3 seconds Skin Temperature: Warm Peripheral Pulses: within normal limits - Abdominal General gastrointestinal: soft, non-distended, normal bowel sounds - Integumentary Integumentary: Present: clear, warm, dry - Psychiatric Psychiatric: other (Intubated and Sedated) - Neurologic Neurologic: other (Intubated and Sedated) - Allied Health Allied health notes reviewed: nursing, case management HEART Score - HEART Score Troponin: Troponin T 2.980 ng/mL (0.00-0.029) H* 04/19/22 07:11 Results - Labs CBC & Chem 7: 04/19/22 03:45 04/19/22 03:45 Labs: Laboratory Last Values WBC 14.2 K/mm3 (4.5-11.0) H 04/19/22 03:45 RBC 4.25 M/mm3 (3.65-5.03) 04/19/22 03:45 Hgb 12.3 gm/dl (11.8-15.2) 04/19/22 03:45 Hct 37.3 % (35.5-45.6) D 04/19/22 03:45 MCV 88 fl (84-94) 04/19/22 03:45 MCH 29 pg (28-32) 04/19/22 03:45 MCHC 33 % (32-34) 04/19/22 03:45 RDW 14.3 % (13.2-15.2) 04/19/22 03:45 Plt Count 150 K/mm3 (140-440) 04/19/22 03:45 Lymph % (Auto) 23.0 % (13.4-35.0) 04/17/22 19:58 [place] % (Auto) 3.2 % (0.0-7.3) 04/18/22 Unknown Eos % (Auto) 0.1 % (0.0-4.3) 04/18/22 Unknown Baso % (Auto) 0.6 % (0.0-1.8) 04/17/22 19:58 Lymph # (Auto) 2.7 K/mm3 (1.2-5.4) 04/17/22 19:58 [place] # (Auto) 0.3 K/mm3 (0.0-0.8) 04/18/22 Unknown Eos # (Auto) 0.0 K/mm3 (0.0-0.4) 04/18/22 Unknown Baso # (Auto) 0.1 K/mm3 (0.0-0.1) 04/18/22 Unknown Add Manual Diff Complete 04/18/22 Unknown Total Counted 100 04/18/22 Unknown Seg Neutrophils % Nurses Supervisor 04/18/22 Unknown Seg Neuts % (Manual) 81.0 % (40.0-70.0) H 04/18/22 Unknown Band Neutrophils % 3.0 % 04/18/22 Unknown Lymphocytes % (Manual) 12.0 % (13.4-35.0) L 04/18/22 Unknown Reactive Lymphs % (Man) 0 % 04/18/22 Unknown Monocytes % (Manual) 2.0 % (0.0-7.3) 04/18/22 Unknown Eosinophils % (Manual) 0 % (0.0-4.3) 04/18/22 Unknown Basophils % (Manual) 0 % (0.0-1.8) 04/18/22 Unknown Metamyelocytes % 2.0 % 04/18/22 Unknown Myelocytes % 0 % 04/18/22 Unknown Promyelocytes % 0 % 04/18/22 Unknown Blast Cells % 0 % 04/18/22 Unknown Nucleated RBC % Not Reportable 04/18/22 Unknown Seg Neutrophils # 9.8 K/mm3 (1.8-7.7) H 04/18/22 Unknown Seg Neutrophils # Man 8.7 K/mm3 (1.8-7.7) H 04/18/22 Unknown Band Neutrophils # 0.3 K/mm3 04/18/22 Unknown Lymphocytes # (Manual) 1.3 K/mm3 (1.2-5.4) 04/18/22 Unknown Abs React Lymphs (Man) 0.0 K/mm3 04/18/22 Unknown Monocytes # (Manual) 0.2 K/mm3 (0.0-0.8) 04/18/22 Unknown Eosinophils # (Manual) 0.0 K/mm3 (0.0-0.4) 04/18/22 Unknown Basophils # (Manual) 0.0 K/mm3 (0.0-0.1) 04/18/22 Unknown Metamyelocytes # 0.2 K/mm3 04/18/22 Unknown Myelocytes # 0.0 K/mm3 04/18/22 Unknown Promyelocytes # 0.0 K/mm3 04/18/22 Unknown Blast Cells # 0.0 K/mm3 04/18/22 Unknown WBC Morphology Not Reportable 04/18/22 Unknown Hypersegmented Neuts Not Reportable 04/18/22 Unknown Hyposegmented Neuts Not Reportable 04/18/22 Unknown Hypogranular Neuts Not Reportable 04/18/22 Unknown Smudge Cells Not Reportable 04/18/22 Unknown Toxic Granulation 2+ 04/18/22 Unknown Toxic Vacuolation Not Reportable 04/18/22 Unknown Dohle Bodies Not Reportable 04/18/22 Unknown Pelger-Huet Anomaly Not Reportable 04/18/22 Unknown Regla Rods Not Reportable 04/18/22 Unknown Platelet Estimate Consistent w auto 04/18/22 Unknown Clumped Platelets Not Reportable 04/18/22 Unknown Plt Clumps, EDTA Not Reportable 04/18/22 Unknown Large Platelets Not Reportable 04/18/22 Unknown Giant Platelets Not Reportable 04/18/22 Unknown Platelet Satelliting Not Reportable 04/18/22 Unknown Plt Morphology Comment Not Reportable 04/18/22 Unknown RBC Morphology Not Reportable 04/18/22 Unknown Dimorphic RBCs Not Reportable 04/18/22 Unknown Polychromasia Not Reportable 04/18/22 Unknown Hypochromasia Not Reportable 04/18/22 Unknown Poikilocytosis Not Reportable 04/18/22 Unknown Anisocytosis Not Reportable 04/18/22 Unknown Microcytosis Not Reportable 04/18/22 Unknown Macrocytosis Not Reportable 04/18/22 Unknown Spherocytes Not Reportable 04/18/22 Unknown Pappenheimer Bodies Not Reportable 04/18/22 Unknown Sickle Cells Not Reportable 04/18/22 Unknown Target Cells Not Reportable 04/18/22 Unknown Tear Drop Cells Not Reportable 04/18/22 Unknown Ovalocytes Not Reportable 04/18/22 Unknown Helmet Cells Not Reportable 04/18/22 Unknown [place] Bodies Not Reportable 04/18/22 Unknown Wells Rings Not Reportable 04/18/22 Unknown Meggan Cells Not Reportable 04/18/22 Unknown Bite Cells Not Reportable 04/18/22 Unknown Crenated Cell Not Reportable 04/18/22 Unknown Elliptocytes Not Reportable 04/18/22 Unknown Acanthocytes (Spur) Not Reportable 04/18/22 Unknown Rouleaux Not Reportable 04/18/22 Unknown Hemoglobin C Crystals Not Reportable 04/18/22 Unknown Schistocytes Not Reportable 04/18/22 Unknown Malaria parasites Not Reportable 04/18/22 Unknown [place] Bodies Not Reportable 04/18/22 Unknown Hem Pathologist Commnt No 04/18/22 Unknown PT 15.6 Sec. (12.2-14.9) H 04/18/22 Unknown INR 1.08 (0.87-1.13) 04/18/22 Unknown APTT 28.6 Sec. (24.2-36.6) 04/18/22 Unknown Heparin Anti-Xa Level 0.18 U.I./ml (0.3-0.7) L 04/19/22 02:08 ABG pH 7.471 pH Units (7.350-7.450) H 04/19/22 08:50 ABG pCO2 38.0 mm Hg 04/19/22 08:50 ABG pO2 58.9 mm Hg (80.0-90.0) L 04/19/22 08:50 ABG HCO3 27.1 mmol/L (20.0-26.0) H 04/19/22 08:50 ABG O2 Saturation 91.7 % (95.0-99.0) L 04/19/22 08:50 ABG O2 Content 15.5 (0.0-44) 04/19/22 08:50 ABG Base Excess 3.4 mmol/L (-2.0-3.0) H 04/19/22 08:50 ABG Hemoglobin 12.2 gm/dl (14.0-18.0) L 04/19/22 08:50 ABG Carboxyhemoglobin 1.3 % (0.0-5.0) 04/19/22 08:50 ABG Methemoglobin 0.6 % (0.0-1.5) 04/19/22 08:50 Oxyhemoglobin 90.0 % (95.0-99.0) L 04/19/22 08:50 FiO2 40 % 04/19/22 08:50 Sodium 137 mmol/L (137-145) 04/19/22 03:45 Potassium 3.9 mmol/L (3.6-5.0) 04/19/22 03:45 Chloride 94.2 mmol/L (98-107) L 04/19/22 03:45 Carbon Dioxide 25 mmol/L (22-30) 04/19/22 03:45 Anion Gap 22 mmol/L 04/19/22 03:45 BUN 39 mg/dL (9-20) H 04/19/22 03:45 Creatinine 3.8 mg/dL (0.8-1.3) H 04/19/22 03:45 Estimated GFR 20 ml/min 04/19/22 03:45 BUN/Creatinine Ratio 10 % 04/19/22 03:45 Glucose 243 mg/dL (75-100) H 04/19/22 03:45 POC Glucose 165 mg/dL (70-105) H 04/19/22 06:01 Lactic Acid 3.40 mmol/L (0.7-2.0) H* 04/19/22 07:50 Calcium 7.1 mg/dL (8.4-10.2) L 04/19/22 03:45 Phosphorus 4.40 mg/dL (2.5-4.5) D 04/19/22 03:45 Magnesium 1.50 mg/dL (1.7-2.3) L 04/19/22 03:45 Total Bilirubin 0.70 mg/dL (0.1-1.2) 04/19/22 03:45 AST 380 units/L (5-40) H 04/19/22 03:45 ALT 289 units/L (7-56) H 04/19/22 03:45 Alkaline Phosphatase 67 units/L (35-129) 04/19/22 03:45 Total Creatine Kinase 3270 units/L (55-170) H 04/19/22 07:11 CK-MB (CK-2) 28.5 ng/mL (0.0-4.0) H 04/19/22 07:11 CK-MB (CK-2) Rel Index 0.8 (0-4) 04/19/22 07:11 Troponin T 2.980 ng/mL (0.00-0.029) H* 04/19/22 07:11 Total Protein 5.4 g/dL (6.3-8.2) L 04/19/22 03:45 Albumin 2.5 g/dL (3.9-5) L 04/19/22 03:45 Albumin/Globulin Ratio 0.9 % 04/19/22 03:45 Triglycerides 57 mg/dL (2-149) 04/17/22 19:56 Cholesterol 106 mg/dL (50-199) 04/17/22 19:56 LDL Cholesterol Direct 57 mg/dL (50-130) 04/17/22 19:56 HDL Cholesterol 40 mg/dL (40-59) 04/17/22 19:56 Cholesterol/HDL Ratio 2.65 % 04/17/22 19:56 Urine Color Yellow (Yellow) 04/19/22 02:08 Urine Turbidity Slightly cloudy (Clear) 04/19/22 02:08 Urine pH 5.0 (5.0-7.0) 04/19/22 02:08 Ur Specific [place] 1.005 (1.003-1.030) 04/19/22 02:08 Urine Protein 30 mg/dl mg/dL (Negative) 04/19/22 02:08 Urine Glucose (UA) Negative mg/dL (Negative) 04/19/22 02:08 Urine Ketones Negative mg/dL (Negative) 04/19/22 02:08 Urine Blood Large (Negative) A 04/19/22 02:08 Urine Nitrite Negative (Negative) 04/19/22 02:08 Ur Reducing Substances Not Reportable 04/19/22 02:08 Urine Bilirubin Negative (Negative) 04/19/22 02:08 Urine Ictotest Not Reportable 04/19/22 02:08 Urine Urobilinogen 0.2 mg/dL (<2.0) 04/19/22 02:08 Ur Leukocyte Esterase Negative (Negative) 04/19/22 02:08 Urine WBC (Auto) 88.0 /HPF (0.0-6.0) H 04/19/22 02:08 Urine RBC (Auto) 60.0 /HPF (0.0-6.0) 04/19/22 02:08 Urine Bacteria (Auto) 2+ /HPF (Negative) 04/19/22 02:08 Urine WBC Clumps 3+ /HPF 04/19/22 02:08 RBC Casts 34 /LPF 04/19/22 02:08 Urine Mucus 1+ /HPF 04/19/22 02:08 Urine Yeast (Budding) 3+ /HPF 04/19/22 02:08 Urine Eosinophils None seen (None Seen) 04/19/22 02:08 Urine Creatinine 90.9 mg/dL (0.1-20.0) H 04/19/22 02:08 Urine Sodium 54 mmol/L 04/19/22 02:08 Blood Type A POSITIVE 04/17/22 19:58 Antibody Screen Negative 04/17/22 19:58 Microbiology: Microbiology 04/17/22 21:42 Peripheral/Venous Blood Culture - Preliminary NO GROWTH AFTER 24 HOURS 04/17/22 21:42 Peripheral/Venous Blood Culture - Preliminary NO GROWTH AFTER 24 HOURS 04/17/22 21:45 Tracheal Aspirate Sputum Culture - Preliminary Dunbar/IV: Voiding Method Indwelling Catheter Active Medications - Current Medications Current Medications: Generic Name Dose Route Start Last Admin Trade Name Freq PRN Reason Stop Dose Admin Acetaminophen 650 mg 04/17/22 19:48 Acetaminophen 325 Mg Tab PO Q6H PRN Pain MILD(1-3)/Fever >100.5/CHE Albuterol 2.5 mg 04/17/22 19:48 Albuterol 2.5 Mg/3 Ml Nebu IH Q3HRT PRN Shortness Of Breath Dextrose 0 ml 04/17/22 23:46 Dextrose 50% In Water (25gm) 50 Ml Syringe IV Q30MIN PRN Hypoglycemia Protocol Famotidine 20 mg 04/18/22 10:00 04/19/22 10:04 Famotidine 20 Mg/2 Ml Inj IV 20 mg QAM FLACO Administration Fentanyl 50 mcg 04/17/22 20:22 04/18/22 03:52 Fentanyl 100 Mcg/2 Ml Inj IV 50 mcg Q10MIN PRN Administration ANALGESIA Heparin Sodium (Porcine) 4,600 unit 04/18/22 04:13 Heparin 10,000 Units/10 Ml Vial 40 unit/kg (4600 unit) IV Q6H PRN Anti-Xa Assay < 0.1 units/ml Hydrophilic Ointment 1 applic 04/18/22 06:02 Lip Therapy Vaseline TP Q2HR PRN Dry Lips Amiodarone HCl 900 mg/ 500 mls @ 33.333 mls/hr 04/17/22 20:00 04/19/22 07:25 Dextrose IV 0.5 mg/min DIRECT FLACO 16.667 mls/hr Titration Protocol 1 MG/MIN NORepinephrine/NS 8 MG-250 ML 8 mg in 250 mls @ 3.75 mls/hr 04/17/22 21:00 04/19/22 08:01 Norepinephrine/Ns 8 Mg-250 Ml (Double Conc) IV 10 mcg/min TITRATE FLACO 18.75 mls/hr Titration Protocol 2 MCG/MIN Fentanyl Citrate 2,000 mcg in 100 mls @ 5.443 mls/hr 04/17/22 21:00 04/19/22 09:10 Fentanyl Drip Premix IV 4 mcg/kg/hr TITR FLACO 21.772 mls/hr Administration Protocol 1 MCG/KG/HR Vasopressin 20 unit/ Sodium 101 mls @ 9.09 mls/hr 04/17/22 23:45 04/19/22 09:44 Chloride IV 0 units/min TITR FLACO 0 mls/hr Titration Protocol 0.03 UNITS/MIN Heparin Sodium/Sodium Chloride 25,000 unit in 500 mls @ 20 mls/hr 04/18/22 06:00 04/19/22 07:25 Heparin/ 0.45% Nacl-25,000 Unit/500 Ml IV 1,400 units/hr TITRATE FLACO 28 mls/hr Titration Protocol 1,000 UNITS/HR Propofol 1,000 mg in 100 mls @ 3.456 mls/hr 04/18/22 07:00 04/19/22 11:00 Diprivan 10 Mg/Ml IV 40 mcg/kg/min TITR FLACO 27.648 mls/hr Titration Protocol 5 MCG/KG/MIN Levofloxacin/Dextrose 750 mg in 150 mls @ 100 mls/hr 04/18/22 22:00 04/18/22 21:43 Levaquin 750mg/150ml IV 100 mls/hr Q48H FLACO Administration Protocol Phenylephrine HCl 100 mg/ 100 mls @ 3 mls/hr 04/18/22 07:30 Sodium Chloride IV TITR FLACO Protocol 50 MCG/MIN Sodium Bicarbonate 150 meq/ 1,150 mls @ 100 mls/hr 04/18/22 08:00 04/19/22 07:25 Dextrose IV 04/20/22 19:29 100 mls/hr DIRECT FLACO Infusion Dobutamine HCl/Dextrose 500 mg in 250 mls @ 17.28 mls/hr 04/18/22 11:00 04/19/22 07:25 Dobutrex Drip 500mg/D5w 250ml IV Infused DIRECT FLACO Infusion Protocol 5 MCG/KG/MIN Dopamine HCl/Dextrose 800 mg in 250 mls @ 4.32 mls/hr 04/19/22 02:00 04/19/22 07:25 Dopamine 800 Mg/D5w 250ml IV 2 mcg/kg/min TITR FLACO 4.32 mls/hr Titration Protocol 2 MCG/KG/MIN Magnesium Sulfate 4 gm in 100 mls @ 25 mls/hr 04/19/22 09:00 04/19/22 10:05 Magnesium Sulfate 4gm/100ml IV 04/19/22 12:59 25 mls/hr ONCE ONE Administration Insulin Glargine 20 units 04/19/22 22:00 Insulin Glargine 100 Units/Ml SUB-Q QHS [facility] Insulin Human Lispro 0 unit 04/18/22 00:00 04/19/22 07:09 Insulin Lispro 100 Unit/Ml SUB-Q 3 unit Q6HR FLACO Administration Protocol Multi-Ingred Cream/Lotion/Oil/Oint 1 applic 04/18/22 06:02 Mineral Oil/Petrolatum, White Ophth Oint 3.5 Gm OU Q4HR PRN Dry Eye(s) Oxycodone/Acetaminophen 1 tab 04/17/22 19:48 Oxycodone /Acetaminophen 5-325mg Tab PO Q16H PRN Pain, Moderate (4-6) Senna/Docusate Sodium 1 tab 04/18/22 10:00 04/19/22 10:04 Sennosides/Docusate Sodium 8.6/50 Mg Tab FEEDTUBE 1 tab BID FLACO Administration Sodium Chloride 10 ml 04/17/22 22:00 04/19/22 10:05 Sodium Chloride 0.9% 10 Ml Flush Syringe IV 10 ml BID FLACO Administration Sodium Chloride 10 ml 04/17/22 19:48 Sodium Chloride 0.9% 10 Ml Flush Syringe IV PRN PRN LINE FLUSH Nutrition/Malnutrition Assess - Dietary Evaluation Nutrition/Malnutrition Findings: Nutrition Notes Start: 04/18/22 08:52 Freq: Status: Active Protocol: Document 04/18/22 08:53 TW (Rec: 04/18/22 09:21 TW [email or web address]) Nutrition Notes Need for Assessment generated from: MD Order Initial or Follow up Assessment Current Diagnosis Acute Kidney Injury,Diabetes, Sepsis,Hypertension, Respiratory Failure Other Pertinent Diagnosis CARDIAC ARREST Current Diet NPO Labs/Tests CO2 18, BUN 26, CREATININE 2.5 , GLUCOSE 330, Ca 7.9 (ADJ. 8. 46) Pertinent Medications AMIODARONE, HEPARIN, LEVOPHED, PHENYLEPHRINE, PROPOFOL ( PROVIDES 91 KCAL/DAY), Na BICARB, VASOPRESSIN Height 5 ft 9 in Weight 115.2 kg [place] Body Weight (kg) 72.72 BMI 37.5 Weight Status Obese Subjective/Other Information RD CONSULTED TO EVALUATE NUTRITIONAL INTAKE AND TUBE FEED. PT IS INTUBATED. NEPHROLOGY CONSULTED. Burn Absent Trauma Absent Minimum of two criteria No #1 Nutrition Diagnosis Inadequate oral intake Etiology INTUBATION As Evidenced by Signs and Symptoms NPO Is patient on ventilator? Yes Is Patient Ambulatory and/or Out of Bed No REE-([place]-confined to bed) 2323.608 Kcal/Kg value to use for calculation 16 Approximate Energy Requirements Using 1843 kcal/Kg Calculation Used for Recommendations Kcal/kg Additional Notes PROTEIN:0.8-1.2 G/KG AdjBW 75- 113 G/DAY FLUID: 1 ML/KCAL Nutrition Intervention Nutrition Support: GLUCERNA 1.2 @ 65 ML/H WITH 100 ML WATER FLUSH Q4H Kcal 1,872 Protein (gm) 94 Carbohydrates (gm) 179 Fat (gm) 94 Fluid (mL) 1,256 Fiber (gm) 25 Goal #1 TF TOLERANCE Goal #2 TF TO PROVIDE AT LEAST 75% OF ENERGY AND PROTEIN NEEDS Anticipated Discharge Needs: UNABLE TO IDENTIFY AT THIS TIME Follow-Up By: 04/20/22 Additional Comments F/U FOR NEW TF, VENT STATUS, PRESSORS, PROPOFOL <GABRIELE HUFF - Last Filed: 04/20/22 07:27> Assessment and Plan Assessment and plan: I saw and evaluated the patient. I agree with the findings and the plan of care as documented in the Nurse Practitioner's~note, with the following corrections and additions. Hospitalist Physical - Constitutional Vitals: Temp Pulse Resp BP Pulse Ox 98.8 F 112 H 25 H 101/73 98 04/20/22 04:00 04/20/22 07:15 04/20/22 07:15 04/20/22 07:15 04/20/22 07:15 HEART Score - HEART Score Troponin: Troponin T 2.980 ng/mL (0.00-0.029) H* 04/19/22 07:11 Results - Labs CBC & Chem 7: 04/20/22 04:12 04/20/22 04:12 Labs: Laboratory Last Values WBC 12.2 K/mm3 (4.5-11.0) H 04/20/22 04:12 RBC 4.00 M/mm3 (3.65-5.03) 04/20/22 04:12 Hgb 11.6 gm/dl (11.8-15.2) L 04/20/22 04:12 Hct 35.3 % (35.5-45.6) L 04/20/22 04:12 MCV 88 fl (84-94) 04/20/22 04:12 MCH 29 pg (28-32) 04/20/22 04:12 MCHC 33 % (32-34) 04/20/22 04:12 RDW 14.5 % (13.2-15.2) 04/20/22 04:12 Plt Count 146 K/mm3 (140-440) 04/20/22 04:12 Lymph % (Auto) 23.0 % (13.4-35.0) 04/17/22 19:58 [place] % (Auto) 3.2 % (0.0-7.3) 04/18/22 Unknown Eos % (Auto) 0.1 % (0.0-4.3) 04/18/22 Unknown Baso % (Auto) 0.6 % (0.0-1.8) 04/17/22 19:58 Lymph # (Auto) 2.7 K/mm3 (1.2-5.4) 04/17/22 19:58 [place] # (Auto) 0.3 K/mm3 (0.0-0.8) 04/18/22 Unknown Eos # (Auto) 0.0 K/mm3 (0.0-0.4) 04/18/22 Unknown Baso # (Auto) 0.1 K/mm3 (0.0-0.1) 04/18/22 Unknown Add Manual Diff Complete 04/18/22 Unknown Total Counted 100 04/18/22 Unknown Seg Neutrophils % Nurses Supervisor 04/18/22 Unknown Seg Neuts % (Manual) 81.0 % (40.0-70.0) H 04/18/22 Unknown Band Neutrophils % 3.0 % 04/18/22 Unknown Lymphocytes % (Manual) 12.0 % (13.4-35.0) L 04/18/22 Unknown Reactive Lymphs % (Man) 0 % 04/18/22 Unknown Monocytes % (Manual) 2.0 % (0.0-7.3) 04/18/22 Unknown Eosinophils % (Manual) 0 % (0.0-4.3) 04/18/22 Unknown Basophils % (Manual) 0 % (0.0-1.8) 04/18/22 Unknown Metamyelocytes % 2.0 % 04/18/22 Unknown Myelocytes % 0 % 04/18/22 Unknown Promyelocytes % 0 % 04/18/22 Unknown Blast Cells % 0 % 04/18/22 Unknown Nucleated RBC % Not Reportable 04/18/22 Unknown Seg Neutrophils # 9.8 K/mm3 (1.8-7.7) H 04/18/22 Unknown Seg Neutrophils # Man 8.7 K/mm3 (1.8-7.7) H 04/18/22 Unknown Band Neutrophils # 0.3 K/mm3 04/18/22 Unknown Lymphocytes # (Manual) 1.3 K/mm3 (1.2-5.4) 04/18/22 Unknown Abs React Lymphs (Man) 0.0 K/mm3 04/18/22 Unknown Monocytes # (Manual) 0.2 K/mm3 (0.0-0.8) 04/18/22 Unknown Eosinophils # (Manual) 0.0 K/mm3 (0.0-0.4) 04/18/22 Unknown Basophils # (Manual) 0.0 K/mm3 (0.0-0.1) 04/18/22 Unknown Metamyelocytes # 0.2 K/mm3 04/18/22 Unknown Myelocytes # 0.0 K/mm3 04/18/22 Unknown Promyelocytes # 0.0 K/mm3 04/18/22 Unknown Blast Cells # 0.0 K/mm3 04/18/22 Unknown WBC Morphology Not Reportable 04/18/22 Unknown Hypersegmented Neuts Not Reportable 04/18/22 Unknown Hyposegmented Neuts Not Reportable 04/18/22 Unknown Hypogranular Neuts Not Reportable 04/18/22 Unknown Smudge Cells Not Reportable 04/18/22 Unknown Toxic Granulation 2+ 04/18/22 Unknown Toxic Vacuolation Not Reportable 04/18/22 Unknown Dohle Bodies Not Reportable 04/18/22 Unknown Pelger-Huet Anomaly Not Reportable 04/18/22 Unknown Regla Rods Not Reportable 04/18/22 Unknown Platelet Estimate Consistent w auto 04/18/22 Unknown Clumped Platelets Not Reportable 04/18/22 Unknown Plt Clumps, EDTA Not Reportable 04/18/22 Unknown Large Platelets Not Reportable 04/18/22 Unknown Giant Platelets Not Reportable 04/18/22 Unknown Platelet Satelliting Not Reportable 04/18/22 Unknown Plt Morphology Comment Not Reportable 04/18/22 Unknown RBC Morphology Not Reportable 04/18/22 Unknown Dimorphic RBCs Not Reportable 04/18/22 Unknown Polychromasia Not Reportable 04/18/22 Unknown Hypochromasia Not Reportable 04/18/22 Unknown Poikilocytosis Not Reportable 04/18/22 Unknown Anisocytosis Not Reportable 04/18/22 Unknown Microcytosis Not Reportable 04/18/22 Unknown Macrocytosis Not Reportable 04/18/22 Unknown Spherocytes Not Reportable 04/18/22 Unknown Pappenheimer Bodies Not Reportable 04/18/22 Unknown Sickle Cells Not Reportable 04/18/22 Unknown Target Cells Not Reportable 04/18/22 Unknown Tear Drop Cells Not Reportable 04/18/22 Unknown Ovalocytes Not Reportable 04/18/22 Unknown Helmet Cells Not Reportable 04/18/22 Unknown [place] Bodies Not Reportable 04/18/22 Unknown [place] Rings Not Reportable 04/18/22 Unknown [place] Cells Not Reportable 04/18/22 Unknown Bite Cells Not Reportable 04/18/22 Unknown Crenated Cell Not Reportable 04/18/22 Unknown Elliptocytes Not Reportable 04/18/22 Unknown Acanthocytes (Spur) Not Reportable 04/18/22 Unknown Rouleaux Not Reportable 04/18/22 Unknown Hemoglobin C Crystals Not Reportable 04/18/22 Unknown Schistocytes Not Reportable 04/18/22 Unknown Malaria parasites Not Reportable 04/18/22 Unknown [place] Bodies Not Reportable 04/18/22 Unknown Hem Pathologist Commnt No 04/18/22 Unknown PT 15.6 Sec. (12.2-14.9) H 04/18/22 Unknown INR 1.08 (0.87-1.13) 04/18/22 Unknown APTT 28.6 Sec. (24.2-36.6) 04/18/22 Unknown Heparin Anti-Xa Level 0.15 U.I./ml (0.3-0.7) L 04/20/22 04:12 ABG pH 7.471 pH Units (7.350-7.450) H 04/19/22 08:50 ABG pCO2 38.0 mm Hg 04/19/22 08:50 ABG pO2 58.9 mm Hg (80.0-90.0) L 04/19/22 08:50 ABG HCO3 27.1 mmol/L (20.0-26.0) H 04/19/22 08:50 ABG O2 Saturation 91.7 % (95.0-99.0) L 04/19/22 08:50 ABG O2 Content 15.5 (0.0-44) 04/19/22 08:50 ABG Base Excess 3.4 mmol/L (-2.0-3.0) H 04/19/22 08:50 ABG Hemoglobin 12.2 gm/dl (14.0-18.0) L 04/19/22 08:50 ABG Carboxyhemoglobin 1.3 % (0.0-5.0) 04/19/22 08:50 ABG Methemoglobin 0.6 % (0.0-1.5) 04/19/22 08:50 Oxyhemoglobin 90.0 % (95.0-99.0) L 04/19/22 08:50 FiO2 40 % 04/19/22 08:50 Sodium 133 mmol/L (137-145) L 04/20/22 04:12 Potassium 3.5 mmol/L (3.6-5.0) L 04/20/22 04:12 Chloride 91.9 mmol/L (98-107) L 04/20/22 04:12 Carbon Dioxide 25 mmol/L (22-30) 04/20/22 04:12 Anion Gap 20 mmol/L 04/20/22 04:12 BUN 44 mg/dL (9-20) H 04/20/22 04:12 Creatinine 4.6 mg/dL (0.8-1.3) H 04/20/22 04:12 Estimated GFR 16 ml/min 04/20/22 04:12 BUN/Creatinine Ratio 10 % 04/20/22 04:12 Glucose 263 mg/dL (75-100) H 04/20/22 04:12 POC Glucose 236 mg/dL (70-105) H 04/19/22 23:00 Lactic Acid 2.80 mmol/L (0.7-2.0) H* 08/08/22 04:12 Calcium 7.2 mg/dL (8.4-10.2) L 04/20/22 04:12 Phosphorus 4.10 mg/dL (2.5-4.5) 04/20/22 04:12 Magnesium 2.30 mg/dL (1.7-2.3) 04/20/22 04:12 Total Bilirubin 1.00 mg/dL (0.1-1.2) 04/20/22 04:12 AST 553 units/L (5-40) H 04/20/22 04:12 ALT 471 units/L (7-56) H 04/20/22 04:12 Alkaline Phosphatase 87 units/L (35-129) 04/20/22 04:12 Total Creatine Kinase 3019 units/L (55-170) H 04/20/22 04:12 CK-MB (CK-2) 28.5 ng/mL (0.0-4.0) H 04/19/22 07:11 CK-MB (CK-2) Rel Index 0.8 (0-4) 04/19/22 07:11 Troponin T 2.980 ng/mL (0.00-0.029) H* 04/19/22 07:11 Total Protein 5.7 g/dL (6.3-8.2) L 04/20/22 04:12 Albumin 2.4 g/dL (3.9-5) L 04/20/22 04:12 Albumin/Globulin Ratio 0.7 % 04/20/22 04:12 Triglycerides 57 mg/dL (2-149) 04/17/22 19:56 Cholesterol 106 mg/dL (50-199) 04/17/22 19:56 LDL Cholesterol Direct 57 mg/dL (50-130) 04/17/22 19:56 HDL Cholesterol 40 mg/dL (40-59) 04/17/22 19:56 Cholesterol/HDL Ratio 2.65 % 04/17/22 19:56 Urine Color Yellow (Yellow) 04/19/22 02:08 Urine Turbidity Slightly cloudy (Clear) 04/19/22 02:08 Urine pH 5.0 (5.0-7.0) 04/19/22 02:08 Ur Specific [place] 1.005 (1.003-1.030) 04/19/22 02:08 Urine Protein 30 mg/dl mg/dL (Negative) 04/19/22 02:08 Urine Glucose (UA) Negative mg/dL (Negative) 04/19/22 02:08 Urine Ketones Negative mg/dL (Negative) 04/19/22 02:08 Urine Blood Large (Negative) A 04/19/22 02:08 Urine Nitrite Negative (Negative) 04/19/22 02:08 Ur Reducing Substances Not Reportable 04/19/22 02:08 Urine Bilirubin Negative (Negative) 04/19/22 02:08 Urine Ictotest Not Reportable 04/19/22 02:08 Urine Urobilinogen 0.2 mg/dL (<2.0) 04/19/22 02:08 Ur Leukocyte Esterase Negative (Negative) 04/19/22 02:08 Urine WBC (Auto) 88.0 /HPF (0.0-6.0) H 04/19/22 02:08 Urine RBC (Auto) 60.0 /HPF (0.0-6.0) 04/19/22 02:08 Urine Bacteria (Auto) 2+ /HPF (Negative) 04/19/22 02:08 Urine WBC Clumps 3+ /HPF 04/19/22 02:08 RBC Casts 34 /LPF 04/19/22 02:08 Urine Mucus 1+ /HPF 04/19/22 02:08 Urine Yeast (Budding) 3+ /HPF 04/19/22 02:08 Urine Eosinophils None seen (None Seen) 04/19/22 02:08 Urine Creatinine 90.9 mg/dL (0.1-20.0) H 04/19/22 02:08 Urine Sodium 54 mmol/L 04/19/22 02:08 Blood Type A POSITIVE 04/17/22 19:58 Antibody Screen Negative 04/17/22 19:58 Microbiology: Microbiology 04/17/22 21:42 Peripheral/Venous Blood Culture - Preliminary NO GROWTH AFTER 48 HOURS 04/17/22 21:42 Peripheral/Venous Blood Culture - Preliminary NO GROWTH AFTER 48 HOURS 04/17/22 21:45 Tracheal Aspirate Sputum Culture - Preliminary 04/18/22 08:57 Urine,Clean Catch Urine Culture - Preliminary NO GROWTH AFTER 24 HOURS [place]/IV: Voiding Method Indwelling Catheter Active Medications - Current Medications Current Medications: Generic Name Dose Route Start Last Admin Trade Name Freq PRN Reason Stop Dose Admin Acetaminophen 650 mg 04/17/22 19:48 04/19/22 17:25 Acetaminophen 325 Mg Tab PO 650 mg Q6H PRN Administration Pain MILD(1-3)/Fever >100.5/CHE Albuterol 2.5 mg 04/17/22 19:48 Albuterol 2.5 Mg/3 Ml Nebu IH Q3HRT PRN Shortness Of Breath Dextrose 0 ml 04/17/22 23:46 Dextrose 50% In Water (25gm) 50 Ml Syringe IV Q30MIN PRN Hypoglycemia Protocol Famotidine 20 mg 04/18/22 10:00 04/19/22 10:04 Famotidine 20 Mg/2 Ml Inj IV 20 mg QAM FLACO Administration Fentanyl 50 mcg 04/17/22 20:22 04/18/22 03:52 Fentanyl 100 Mcg/2 Ml Inj IV 50 mcg Q10MIN PRN Administration ANALGESIA Heparin Sodium (Porcine) 4,600 unit 04/18/22 04:13 Heparin 10,000 Units/10 Ml Vial 40 unit/kg (4600 unit) IV Q6H PRN Anti-Xa Assay < 0.1 units/ml Hydrophilic Ointment 1 applic 04/18/22 06:02 Lip Therapy Vaseline TP Q2HR PRN Dry Lips Amiodarone HCl 900 mg/ 500 mls @ 33.333 mls/hr 04/17/22 20:00 04/20/22 05:15 Dextrose IV 1 mg/min DIRECT FLACO 33.333 mls/hr Administration Protocol 1 MG/MIN NORepinephrine/NS 8 MG-250 ML 8 mg in 250 mls @ 3.75 mls/hr 04/17/22 21:00 04/20/22 07:12 Norepinephrine/Ns 8 Mg-250 Ml (Double Conc) IV 0 mcg/min TITRATE FLACO 0 mls/hr Titration Protocol 2 MCG/MIN Fentanyl Citrate 2,000 mcg in 100 mls @ 5.443 mls/hr 04/17/22 21:00 04/20/22 06:54 Fentanyl Drip Premix IV 4 mcg/kg/hr TITR FLACO 21.772 mls/hr Administration Protocol 1 MCG/KG/HR Vasopressin 20 unit/ Sodium 101 mls @ 9.09 mls/hr 04/17/22 23:45 04/19/22 09:44 Chloride IV 0 units/min TITR FLACO 0 mls/hr Titration Protocol 0.03 UNITS/MIN Heparin Sodium/Sodium Chloride 25,000 unit in 500 mls @ 20 mls/hr 04/18/22 06: 00 04/19/22 19:49 Heparin/ 0.45% Nacl-25,000 Unit/500 Ml IV 1,400 units/hr TITRATE FLACO 28 mls/hr Administration Protocol 1,000 UNITS/HR Propofol 1,000 mg in 100 mls @ 3.456 mls/hr 04/18/22 07:00 04/20/22 06:17 Diprivan 10 Mg/Ml IV 40 mcg/kg/min TITR FLACO 27.648 mls/hr Administration Protocol 5 MCG/KG/MIN Levofloxacin/Dextrose 750 mg in 150 mls @ 100 mls/hr 04/18/22 22:00 04/18/22 21:43 Levaquin 750mg/150ml IV 100 mls/hr Q48H FLACO Administration Protocol Phenylephrine HCl 100 mg/ 100 mls @ 3 mls/hr 04/18/22 07:30 Sodium Chloride IV TITR FLACO Protocol 50 MCG/MIN Sodium Bicarbonate 150 meq/ 1,150 mls @ 100 mls/hr 04/18/22 08:00 04/19/22 07:25 Dextrose IV 04/20/22 19:29 100 mls/hr DIRECT FLACO Infusion Dobutamine HCl/Dextrose 500 mg in 250 mls @ 17.28 mls/hr 04/18/22 11:00 04/19/22 07:25 Dobutrex Drip 500mg/D5w 250ml IV Infused DIRECT FLACO Infusion Protocol 5 MCG/KG/MIN Dopamine HCl/Dextrose 800 mg in 250 mls @ 4.32 mls/hr 04/19/22 02:00 04/19/22 14:41 Dopamine 800 Mg/D5w 250ml IV 0 mcg/kg/min TITR FLACO 0 mls/hr Titration Protocol 2 MCG/KG/MIN Insulin Glargine 20 units 04/19/22 22:00 04/19/22 21:20 Insulin Glargine 100 Units/Ml SUB-Q 20 units QHS FLACO Administration Insulin Human Lispro 0 unit 04/18/22 00:00 04/20/22 05:18 Insulin Lispro 100 Unit/Ml SUB-Q 6 unit Q6HR FLACO Administration Protocol Multi-Ingred Cream/Lotion/Oil/Oint 1 applic 04/18/22 06:02 Mineral Oil/Petrolatum, White Ophth Oint 3.5 Gm OU Q4HR PRN Dry Eye(s) Oxycodone/Acetaminophen 1 tab 04/17/22 19:48 Oxycodone /Acetaminophen 5-325mg Tab PO Q16H PRN Pain, Moderate (4-6) Senna/Docusate Sodium 1 tab 04/18/22 10:00 04/19/22 21:12 Sennosides/Docusate Sodium 8.6/50 Mg Tab FEEDTUBE 1 tab BID FLACO Administration Sodium Chloride 10 ml 04/17/22 22:00 04/19/22 21:21 Sodium Chloride 0.9% 10 Ml Flush Syringe IV 10 ml BID FLACO Administration Sodium Chloride 10 ml 04/17/22 19:48 Sodium Chloride 0.9% 10 Ml Flush Syringe IV PRN PRN LINE FLUSH Nutrition/Malnutrition Assess - Dietary Evaluation Nutrition/Malnutrition Findings: Nutrition Notes Start: 04/18/22 08:52 Freq: Status: Active Protocol: Document 04/18/22 08:53 TW (Rec: 04/18/22 09:21 TW [id number]) Nutrition Notes Need for Assessment generated from: MD Order Initial or Follow up Assessment Current Diagnosis Acute Kidney Injury,Diabetes, Sepsis,Hypertension, Respiratory Failure Other Pertinent Diagnosis CARDIAC ARREST Current Diet NPO Labs/Tests CO2 18, BUN 26, CREATININE 2.5 , GLUCOSE 330, Ca 7.9 (ADJ. 8. 46) Pertinent Medications AMIODARONE, HEPARIN, LEVOPHED, PHENYLEPHRINE, PROPOFOL ( PROVIDES 91 KCAL/DAY), Na BICARB, VASOPRESSIN Height 5 ft 9 in Weight 115.2 kg [place] Body Weight (kg) 72.72 BMI 37.5 Weight Status Obese Subjective/Other Information RD CONSULTED TO EVALUATE NUTRITIONAL INTAKE AND TUBE FEED. PT IS INTUBATED. NEPHROLOGY CONSULTED. Burn Absent Trauma Absent Minimum of two criteria No #1 Nutrition Diagnosis Inadequate oral intake Etiology INTUBATION As Evidenced by Signs and Symptoms NPO Is patient on ventilator? Yes Is Patient Ambulatory and/or Out of Bed No REE-([place]-confined to bed) 2323.608 Kcal/Kg value to use for calculation 16 Approximate Energy Requirements Using 1843 kcal/Kg Calculation Used for Recommendations Kcal/kg Additional Notes PROTEIN:0.8-1.2 G/KG AdjBW 75- 113 G/DAY FLUID: 1 ML/KCAL Nutrition Intervention Nutrition Support: GLUCERNA 1.2 @ 65 ML/H WITH 100 ML WATER FLUSH Q4H Kcal 1,872 Protein (gm) 94 Carbohydrates (gm) 179 Fat (gm) 94 Fluid (mL) 1,256 Fiber (gm) 25 Goal #1 TF TOLERANCE Goal #2 TF TO PROVIDE AT LEAST 75% OF ENERGY AND PROTEIN NEEDS Anticipated Discharge Needs: UNABLE TO IDENTIFY AT THIS TIME Follow-Up By: 04/20/22 Additional Comments F/U FOR NEW TF, VENT STATUS, PRESSORS, PROPOFOL
--- NOTE | 2022-04-19 11:45 | Progress Note ---
Assessment and Plan 61 YO Male with Obesity Hypoventilation Syndrome, HTN, HDL, DM, Metabolic Syndrome presents to ED for evaluation. Patient is intubated and on ventilatory support . Patient history taken EMS staff, ED staff, as well as the patient family was at bedside . As per family the patient presented to [place] outpatient clinic for evaluation for chest pain. Patient subsequently went to the restroom and was found unresponsive in the restroom. EMS was notified and upon arrival the patient was found to be in distress with absent of spontaneous circulation and found to have ventricular fibrillation. Patient treated with ACLS protocol and was subsequently intubated in the field and transported to [facility] for further care and evaluation of the aforementioned symptoms. Patient found to have aspirated in the oropharynx with suspected aspiration pneumonia complicated by acute hypoxemic respiratory failure, septic shock, as well as cardiac arrest. Patient admitted to ICU and initiated on sepsis protocol . Patient initiated on IV pressor support. Patient family deny reports of fever, chills, palpitation, adductive cough, skin rash, recent contact, known exposure to COVID-19. Cardiology team consulted in ED. Critical care team consulted in ED. Patient has history of atrial fibrillation. Patients Echocardiogram showed left ventricular Ejection fraction 25%. Chest xray obtained on admission 04/17/22 reported Endotracheal tube tip is approximately 2 cm above the law. Diffuse bilateral pulmonary opacities could be seen in the setting of pulmonary edema. CTA of chest obtained 04/17/[address] evidence for pulmonary embolism. Extensive bilateral airspace disease greatest in the dependent portions and greater in the upperlobes. Given the distribution, this could be related to aspiration if the patient has had prolonged loss of consciousness. Patient has no history of smoking, alcohol or drug abuse. and has four children. 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 Patient Openig his eyes on verbal stimulation. Not following commands.. Patient is on Assist control mechanical ventilation, rate 25, tidal volume 500, PEEP 8,FIO2 40%. Patient saturation running 94%. ABG ABG pH 7.471 pH Units (7.350-7.450) H 04/19/22 08:50 ABG pCO2 38.0 mm Hg 04/19/22 08:50 ABG pO2 58.9 mm Hg (80.0-90.0) L 04/19/22 08:50 ABG O2 Saturation 91.7 % (95.0-99.0) L 04/19/22 08:50 Increased FIO2 to 50%. Patient afebrile. No leukocytosis. Blood pressure 105/64, Pulse 117, Respiratory rate 25. Patient is on Levophed, vasopressin. Adding phenylephrine and Dobutrex and dopamine. Cut down the PEEP from 16 to 8, Blood pressure is improving. Patient also on Amiodarone, I/V Levaquin and I/V Heparin and Pepcid. Patients at bed side, explained patients critical conition. I spent ctitical care time of 45 minutes, Talking to the family, reviewing the chart, examine the patient, review labs and Xrays, talking to the nursing staff, respiratory therapy and work up Plan of treatment in this critically ill ivy boyd. - Patient Problems (1) Acute hypoxemic respiratory failure Current Visit: Yes Status: Acute Plan to address problem: Mechanical ventilation assist control, rate 25, tidal volume 500, FIO2 50%, PEEP 8. Recommend Xopenex aerosol treatments q 8 hours. Patient is on I/V Heparin. Continue famotidine. (2) Altered mental status Current Visit: Yes Status: Acute Qualifiers: Altered mental status type: unspecified Qualified Code(s): R41.82 - Altered mental status, unspecified Plan to address problem: Likely anoxic encephalopathy. Continue follow on neurological status. Recommend to consult neurology. (3) Aspiration pneumonia Current Visit: Yes Status: Acute Qualifiers: Aspiration pneumonia type: unspecified Laterality: unspecified laterality Lung location: unspecified part of lung Qualified Code(s): J69.0 - Pneumonitis due to inhalation of food and vomit Plan to address problem: Recommend aspiration precautions. Patient is on I/V Levaquin. Chest xray findings more suggestive of pulmonary edema. (4) Cardiogenic shock Current Visit: Yes Status: Acute Plan to address problem: Patient is on Dobtrex and other vasopressors. Patient is on Levophed, vasopressin, phenylephrine and dopamine Cardiology consulted. (5) Diabetes Current Visit: Yes Status: Acute Plan to address problem: Management as per primary care. (6) Hypotension Current Visit: Yes Status: Acute Qualifiers: Hypotension type: unspecified hypotension type Qualified Code(s): I95.9 - Hypotension, unspecified Plan to address problem: Patient is on multiple vasopressore, Dobutrex, Levophed, Vasopressin and Phenylephrine and dopamine. (7) Obesity hypoventilation syndrome Current Visit: Yes Status: Acute Plan to address problem: Patient presently on mechanical ventilation. Work up once patient pulled through this acute episode. Subjective Date of service: 04/19/22 Interval history: 61 YO Male with Obesity Hypoventilation Syndrome, HTN, HDL, DM, Metabolic Syndrome presents to ED for evaluation. Patient is intubated and on ventilatory support . Patient history taken EMS staff, ED staff, as well as the patient family was at bedside . As per family the patient presented to [place] outpatient clinic for evaluation for chest pain. Patient subsequently went to the restroom and was found unresponsive in the restroom. EMS was notified and upon arrival the patient was found to be in distress with absent of spontaneous circulation and found to have ventricular fibrillation. Patient treated with ACLS protocol and was subsequently intubated in the field and transported to [facility] for further care and evaluation of the aforementioned symptoms. Patient found to have aspirated in the oropharynx with suspected aspiration pneumonia complicated by acute hypoxemic respiratory failure, septic shock, as well as cardiac arrest. Patient admitted to ICU and initiated on sepsis protocol . Patient initiated on IV pressor support. Patient family deny reports of fever, chills, palpitation, adductive cough, skin rash, recent contact, known exposure to COVID-19. Cardiology team consulted in ED. Critical care team consulted in ED. Patient has history of atrial fibrillation. Patients Echocardiogram showed left ventricular Ejection fraction 25%. Chest xray obtained on admission 04/17/22 reported Endotracheal tube tip is appro ximately 2 cm above the law. Diffuse bilateral pulmonary opacities could be seen in the setting of pulmonary edema. CTA of chest obtained 04/17/[address] evidence for pulmonary embolism. Extensive bilateral airspace disease greatest in the dependent portions and greater in the upperlobes. Given the distribution, this could be related to aspiration if the patient has had prolonged loss of consciousness. Patient has no history of smoking, alcohol or drug abuse. and has four children. 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 Patient Openig his eyes on verbal stimulation. Not following commands.. Patient is on Assist control mechanical ventilation, rate 25, tidal volume 500, PEEP 8,FIO2 40%. Patient saturation running 94%. ABG ABG pH 7.471 pH Units (7.350-7.450) H 04/19/22 08:50 ABG pCO2 38.0 mm Hg 04/19/22 08:50 ABG pO2 58.9 mm Hg (80.0-90.0) L 04/19/22 08:50 ABG O2 Saturation 91.7 % (95.0-99.0) L 04/19/22 08:50 Increased FIO2 to 50%. Patient afebrile. No leukocytosis. Blood pressure 105/64, Pulse 117, Respiratory rate 25. Patient is on Levophed, vasopressin, phenylephrine and Dobutrex and dopamine. Cut down the PEEP from 16 to 8., Blood pressure is improving. Patient also on Amiodarone, I/V Levaquin and I/V Heparin and Pepcid. Patients at bed side, explained patients critical conition. Objective Vital Signs - 12hr 04/18/22 04/19/22 04/19/22 23:45 00:00 00:15 Temperature 97.8 F Pulse Rate 99 H 98 H 93 H Pulse Rate [ 92 H From Monitor] Respiratory 25 H 25 H 24 Rate Blood Pressure 119/66 112/76 112/73 O2 Sat by Pulse 100 100 100 Oximetry 04/19/22 04/19/22 04/19/22 00:16 00:30 00:45 Temperature Pulse Rate 96 H 95 H 103 H Pulse Rate [ From Monitor] Respiratory 25 H 25 H Rate Blood Pressure 112/73 106/72 95/71 O2 Sat by Pulse 100 100 100 Oximetry 04/19/22 04/19/22 04/19/22 01:01 01:15 01:30 Temperature Pulse Rate 97 H 97 H 94 H Pulse Rate [ From Monitor] Respiratory 25 H 25 H 25 H Rate Blood Pressure 85/64 95/71 110/79 O2 Sat by Pulse 100 100 100 Oximetry 04/19/22 04/19/22 04/19/22 01:45 02:01 02:15 Temperature Pulse Rate 97 H 106 H 106 H Pulse Rate [ From Monitor] Respiratory 25 H 24 25 H Rate Blood Pressure 106/71 115/76 109/75 O2 Sat by Pulse 100 100 100 Oximetry 04/19/22 04/19/22 04/19/22 02:30 02:45 03:00 Temperature Pulse Rate 106 H 106 H 121 H Pulse Rate [ From Monitor] Respiratory 25 H 25 H 25 H Rate Blood Pressure 110/69 100/67 101/69 O2 Sat by Pulse 100 100 100 Oximetry 04/19/22 04/19/22 04/19/22 03:15 03:30 03:45 Temperature Pulse Rate 104 H 86 108 H Pulse Rate [ From Monitor] Respiratory 25 H 25 H 25 H Rate Blood Pressure 97/71 98/68 101/66 O2 Sat by Pulse 100 100 100 Oximetry 04/19/22 04/19/22 04/19/22 04:00 04:09 04:15 Temperature 98.0 F Pulse Rate 105 H 101 H 105 H Pulse Rate [ 100 H From Monitor] Respiratory 25 H 25 H Rate Blood Pressure 100/69 100/69 106/68 O2 Sat by Pulse 100 100 100 Oximetry 04/19/22 04/19/22 04/19/22 04:30 04:45 05:00 Temperature Pulse Rate 113 H 111 H 112 H Pulse Rate [ From Monitor] Respiratory 25 H 25 H 25 H Rate Blood Pressure 98/73 107/71 107/71 O2 Sat by Pulse 100 100 100 Oximetry 04/19/22 04/19/22 04/19/22 05:15 05:31 05:45 Temperature Pulse Rate 117 H 116 H 123 H Pulse Rate [ From Monitor] Respiratory 25 H 20 Rate Blood Pressure 106/78 106/78 106/78 O2 Sat by Pulse 99 96 Oximetry 04/19/22 04/19/22 04/19/22 06:00 06:15 06:30 Temperature Pulse Rate 116 H 110 H 98 H Pulse Rate [ From Monitor] Respiratory 25 H 25 H 25 H Rate Blood Pressure 105/72 110/70 113/68 O2 Sat by Pulse 97 97 Oximetry 04/19/22 04/19/22 04/19/22 06:45 07:00 07:15 Temperature Pulse Rate 104 H 108 H 108 H Pulse Rate [ From Monitor] Respiratory 25 H 25 H 25 H Rate Blood Pressure 110/70 102/66 104/72 O2 Sat by Pulse 97 96 95 Oximetry 04/19/22 04/19/22 04/19/22 07:30 07:45 08:00 Temperature 98.6 F Pulse Rate 111 H 137 H 121 H Pulse Rate [ 112 H From Monitor] Respiratory 25 H 16 24 Rate Blood Pressure 107/73 104/72 124/76 O2 Sat by Pulse 94 97 97 Oximetry 04/19/22 04/19/22 04/19/22 08:15 08:30 08:45 Temperature Pulse Rate 122 H 137 H 122 H Pulse Rate [ From Monitor] Respiratory 25 H 22 25 H Rate Blood Pressure 105/65 110/74 111/62 O2 Sat by Pulse 94 89 94 Oximetry 04/19/22 04/19/22 04/19/22 09:00 09:15 09:30 Temperature Pulse Rate 101 H 105 H 101 H Pulse Rate [ From Monitor] Respiratory 25 H 25 H 25 H Rate Blood Pressure 111/69 106/65 109/69 O2 Sat by Pulse 94 95 95 Oximetry 04/19/22 04/19/22 04/19/22 09:45 10:00 10:15 Temperature Pulse Rate 120 H 113 H 116 H Pulse Rate [ From Monitor] Respiratory 25 H 25 H 25 H Rate Blood Pressure 109/69 100/60 100/60 O2 Sat by Pulse 94 96 96 Oximetry 04/19/22 04/19/22 04/19/22 10:31 10:45 11:00 Temperature Pulse Rate 118 H 128 H 124 H Pulse Rate [ From Monitor] Respiratory 26 H 25 H 25 H Rate Blood Pressure 100/60 100/60 105/64 O2 Sat by Pulse 96 88 90 Oximetry Constitutional: asleep, other (Opening eyes on verbal stimulation.) Eyes: non-icteric ENT: oropharynx dry Neck: supple, no JVD Effort: mildly labored Ascultation: Bilateral: rales Cardiovascular: irregular rhythm Gastrointestinal: hypoactive bowel sounds, soft, non-tender Integumentary: normal Extremities: no cyanosis, edema Neurologic: unable to assess Psychiatric: other (Unable to assess due to mental status.) CBC and BMP: 04/20/22 04:12 04/20/22 04:12 ABG, PT/INR, D-dimer: ABG ABG pH 7.471 pH Units (7.350-7.450) H 04/19/22 08:50 ABG pCO2 38.0 mm Hg 04/19/22 08:50 ABG pO2 58.9 mm Hg (80.0-90.0) L 04/19/22 08:50 ABG O2 Saturation 91.7 % (95.0-99.0) L 04/19/22 08:50 PT/INR, D-dimer PT 15.6 Sec. (12.2-14.9) H 04/18/22 Unknown INR 1.08 (0.87-1.13) 04/18/22 Unknown Abnormal lab findings: Abnormal Labs 04/17/22 04/17/22 04/17/22 19:18 19:55 19:56 WBC RBC Hgb Hct Seg Neutrophils % Seg Neuts % (Manual) Lymphocytes % (Manual) Seg Neutrophils # Seg Neutrophils # Man PT Heparin Anti-Xa Level ABG pH 7.120 L* ABG pO2 45.3 L ABG HCO3 18.5 L ABG O2 Saturation 68.3 L ABG Base Excess -11.5 L ABG Hemoglobin Oxyhemoglobin 66.8 L Sodium Potassium Chloride 94.2 L Carbon Dioxide 17 L BUN Creatinine 1.6 H Glucose 315 H POC Glucose 277 H Lactic Acid Calcium Phosphorus Magnesium AST 529 H ALT 318 H Alkaline Phosphatase 137 H Total Creatine Kinase 398 H CK-MB (CK-2) 17.9 H CK-MB (CK-2) Rel Index 4.4 H Troponin T 0.205 H* Total Protein Albumin Urine Blood Urine WBC (Auto) Urine Creatinine 04/17/22 04/17/22 04/17/22 19:58 19:58 21:42 WBC 11.9 H RBC 5.17 H Hgb 15.5 H Hct 48.0 H Seg Neutrophils % 71.7 H Seg Neuts % (Manual) Lymphocytes % (Manual) Seg Neutrophils # 8.5 H Seg Neutrophils # Man PT Heparin Anti-Xa Level ABG pH ABG pO2 ABG HCO3 ABG O2 Saturation ABG Base Excess ABG Hemoglobin Oxyhemoglobin Sodium Potassium Chloride 95.0 L Carbon Dioxide 19 L BUN Creatinine 1.5 H Glucose 306 H POC Glucose Lactic Acid Calcium Phosphorus Magnesium AST ALT Alkaline Phosphatase Total Creatine Kinase 412 H CK-MB (CK-2) 19.2 H CK-MB (CK-2) Rel Index 4.6 H Troponin T 0.285 H* D Total Protein Albumin Urine Blood Urine WBC (Auto) Urine Creatinine 04/17/22 04/18/22 04/18/22 21:42 00:40 01:07 WBC RBC Hgb Hct Seg Neutrophils % Seg Neuts % (Manual) Lymphocytes % (Manual) Seg Neutrophils # Seg Neutrophils # Man PT Heparin Anti-Xa Level ABG pH ABG pO2 ABG HCO3 ABG O2 Saturation ABG Base Excess ABG Hemoglobin Oxyhemoglobin Sodium Potassium Chloride Carbon Dioxide BUN Creatinine Glucose POC Glucose 320 H Lactic Acid 7.90 H* 7.90 H* Calcium Phosphorus Magnesium AST ALT Alkaline Phosphatase Total Creatine Kinase CK-MB (CK-2) CK-MB (CK-2) Rel Index Troponin T Total Protein Albumin Urine Blood Urine WBC (Auto) Urine Creatinine 04/18/22 04/18/22 04/18/22 01:07 04:00 06:04 WBC RBC Hgb Hct Seg Neutrophils % Seg Neuts % (Manual) Lymphocytes % (Manual) Seg Neutrophils # Seg Neutrophils # Man PT Heparin Anti-Xa Level < 0.10 L ABG pH ABG pO2 ABG HCO3 ABG O2 Saturation ABG Base Excess ABG Hemoglobin Oxyhemoglobin Sodium Potassium Chloride Carbon Dioxide BUN Creatinine Glucose POC Glucose 305 H Lactic Acid Calcium Phosphorus Magnesium AST ALT Alkaline Phosphatase Total Creatine Kinase 488 H CK-MB (CK-2) 25.3 H CK-MB (CK-2) Rel Index 5.1 H Troponin T 0.665 H* D Total Protein Albumin Urine Blood Urine WBC (Auto) Urine Creatinine 04/18/22 04/18/22 04/18/22 06:20 11:10 12:48 WBC RBC Hgb Hct Seg Neutrophils % Seg Neuts % (Manual) Lymphocytes % (Manual) Seg Neutrophils # Seg Neutrophils # Man PT Heparin Anti-Xa Level < 0.10 L ABG pH 7.119 L* 7.304 L ABG pO2 56.1 L 103.5 H ABG HCO3 18.4 L 14.4 L ABG O2 Saturation 80.7 L ABG Base Excess -11.4 L -10.6 L ABG Hemoglobin 13.5 L Oxyhemoglobin 79.2 L Sodium Potassium Chloride Carbon Dioxide BUN Creatinine Glucose POC Glucose Lactic Acid Calcium Phosphorus Magnesium AST ALT Alkaline Phosphatase Total Creatine Kinase CK-MB (CK-2) CK-MB (CK-2) Rel Index Troponin T Total Protein Albumin Urine Blood Urine WBC (Auto) Urine Creatinine 04/18/22 04/18/22 04/18/22 13:13 16:00 16:00 WBC RBC Hgb Hct Seg Neutrophils % Seg Neuts % (Manual) Lymphocytes % (Manual) Seg Neutrophils # Seg Neutrophils # Man PT Heparin Anti-Xa Level ABG pH ABG pO2 ABG HCO3 ABG O2 Saturation ABG Base Excess ABG Hemoglobin Oxyhemoglobin Sodium Potassium Chloride Carbon Dioxide BUN Creatinine Glucose POC Glucose 334 H Lactic Acid 7.00 H* Calcium Phosphorus 5.70 H Magnesium 1.30 L AST ALT Alkaline Phosphatase Total Creatine Kinase 969 H CK-MB (CK-2) 55.9 H CK-MB (CK-2) Rel Index 5.7 H Troponin T 1.580 H* D Total Protein Albumin Urine Blood Urine WBC (Auto) Urine Creatinine 04/18/22 04/18/22 04/18/22 16:00 18:00 18:01 WBC RBC Hgb Hct Seg Neutrophils % Seg Neuts % (Manual) Lymphocytes % (Manual) Seg Neutrophils # Seg Neutrophils # Man PT Heparin Anti-Xa Level < 0.10 L ABG pH ABG pO2 ABG HCO3 ABG O2 Saturation ABG Base Excess ABG Hemoglobin Oxyhemoglobin Sodium 136 L Potassium 6.3 H* D Chloride 97.6 L Carbon Dioxide 18 L BUN 34 H Creatinine 3.5 H Glucose 409 H POC Glucose 397 H Lactic Acid Calcium 6.8 L Phosphorus Magnesium AST ALT Alkaline Phosphatase Total Creatine Kinase CK-MB (CK-2) CK-MB (CK-2) Rel Index Troponin T Total Protein Albumin Urine Blood Urine WBC (Auto) Urine Creatinine 04/18/22 04/18/22 04/18/22 19:13 20:58 21:22 WBC RBC Hgb Hct Seg Neutrophils % Seg Neuts % (Manual) Lymphocytes % (Manual) Seg Neutrophils # Seg Neutrophils # Man PT Heparin Anti-Xa Level ABG pH 7.502 H ABG pO2 144.5 H ABG HCO3 ABG O2 Saturation ABG Base Excess ABG Hemoglobin 12.5 L Oxyhemoglobin Sodium Potassium Chloride Carbon Dioxide BUN Creatinine Glucose POC Glucose 321 H 307 H Lactic Acid Calcium Phosphorus Magnesium AST ALT Alkaline Phosphatase Total Creatine Kinase CK-MB (CK-2) CK-MB (CK-2) Rel Index Troponin T Total Protein Albumin Urine Blood Urine WBC (Auto) Urine Creatinine 04/18/22 04/18/22 04/18/22 21:30 21:30 Unknown WBC RBC Hgb Hct Seg Neutrophils % Seg Neuts % (Manual) 81.0 H Lymphocytes % (Manual) 12.0 L Seg Neutrophils # 9.8 H Seg Neutrophils # Man 8.7 H PT Heparin Anti-Xa Level ABG pH ABG pO2 ABG HCO3 ABG O2 Saturation ABG Base Excess ABG Hemoglobin Oxyhemoglobin Sodium Potassium Chloride 96.6 L Carbon Dioxide BUN 37 H Creatinine 3.6 H Glucose 312 H POC Glucose Lactic Acid 5.50 H* Calcium 7.3 L Phosphorus Magnesium AST ALT Alkaline Phosphatase Total Creatine Kinase CK-MB (CK-2) CK-MB (CK-2) Rel Index Troponin T Total Protein Albumin Urine Blood Urine WBC (Auto) Urine Creatinine 04/18/22 04/18/22 04/19/22 Unknown Unknown 00:35 WBC RBC Hgb Hct Seg Neutrophils % Seg Neuts % (Manual) Lymphocytes % (Manual) Seg Neutrophils # Seg Neutrophils # Man PT 15.6 H Heparin Anti-Xa Level ABG pH ABG pO2 ABG HCO3 ABG O2 Saturation ABG Base Excess ABG Hemoglobin Oxyhemoglobin Sodium Potassium Chloride Carbon Dioxide 18 L BUN 26 H Creatinine 2.5 H D Glucose 330 H POC Glucose Lactic Acid Calcium 7.9 L Phosphorus Magnesium AST 463 H ALT 249 H Alkaline Phosphatase Total Creatine Kinase CK-MB (CK-2) CK-MB (CK-2) Rel Index Troponin T 2.670 H* D Total Protein Albumin 3.3 L Urine Blood Urine WBC (Auto) Urine Creatinine 04/19/22 04/19/22 04/19/22 00:39 02:08 02:08 WBC RBC Hgb Hct Seg Neutrophils % Seg Neuts % (Manual) Lymphocytes % (Manual) Seg Neutrophils # Seg Neutrophils # Man PT Heparin Anti-Xa Level ABG pH ABG pO2 ABG HCO3 ABG O2 Saturation ABG Base Excess ABG Hemoglobin Oxyhemoglobin Sodium Potassium Chloride Carbon Dioxide BUN Creatinine Glucose POC Glucose 263 H Lactic Acid Calcium Phosphorus Magnesium AST ALT Alkaline Phosphatase Total Creatine Kinase CK-MB (CK-2) CK-MB (CK-2) Rel Index Troponin T Total Protein Albumin Urine Blood Large A Urine WBC (Auto) 88.0 H Urine Creatinine 90.9 H 04/19/22 04/19/22 04/19/22 02:08 03:45 03:45 WBC 14.2 H RBC Hgb Hct Seg Neutrophils % Seg Neuts % (Manual) Lymphocytes % (Manual) Seg Neutrophils # Seg Neutrophils # Man PT Heparin Anti-Xa Level 0.18 L ABG pH ABG pO2 ABG HCO3 ABG O2 Saturation ABG Base Excess ABG Hemoglobin Oxyhemoglobin Sodium Potassium Chloride 94.2 L Carbon Dioxide BUN 39 H Creatinine 3.8 H Glucose 243 H POC Glucose Lactic Acid Calcium 7.1 L Phosphorus Magnesium 1.50 L AST 380 H ALT 289 H Alkaline Phosphatase Total Creatine Kinase CK-MB (CK-2) CK-MB (CK-2) Rel Index Troponin T Total Protein 5.4 L Albumin 2.5 L Urine Blood Urine WBC (Auto) Urine Creatinine 04/19/22 04/19/22 04/19/22 03:45 06:01 07:11 WBC RBC Hgb Hct Seg Neutrophils % Seg Neuts % (Manual) Lymphocytes % (Manual) Seg Neutrophils # Seg Neutrophils # Man PT Heparin Anti-Xa Level ABG pH ABG pO2 ABG HCO3 ABG O2 Saturation ABG Base Excess ABG Hemoglobin Oxyhemoglobin Sodium Potassium Chloride Carbon Dioxide BUN Creatinine Glucose POC Glucose 165 H Lactic Acid 4.00 H* Calcium Phosphorus Magnesium AST ALT Alkaline Phosphatase Total Creatine Kinase 3270 H CK-MB (CK-2) 28.5 H CK-MB (CK-2) Rel Index Troponin T 2.980 H* Total Protein Albumin Urine Blood Urine WBC (Auto) Urine Creatinine 04/19/22 04/19/22 07:50 08:50 WBC RBC Hgb Hct Seg Neutrophils % Seg Neuts % (Manual) Lymphocytes % (Manual) Seg Neutrophils # Seg Neutrophils # Man PT Heparin Anti-Xa Level ABG pH 7.471 H ABG pO2 58.9 L ABG HCO3 27.1 H ABG O2 Saturation 91.7 L ABG Base Excess 3.4 H ABG Hemoglobin 12.2 L Oxyhemoglobin 90.0 L Sodium Potassium Chloride Carbon Dioxide BUN Creatinine Glucose POC Glucose Lactic Acid 3.40 H* Calcium Phosphorus Magnesium AST ALT Alkaline Phosphatase Total Creatine Kinase CK-MB (CK-2) CK-MB (CK-2) Rel Index Troponin T Total Protein Albumin Urine Blood Urine WBC (Auto) Urine Creatinine Chest x-ray: report reviewed, image reviewed Additional Studies: CHEST 1 VIEW 04/19/22 INDICATION: follow up respiratory failure. COMPARISON: One day prior. FINDINGS: Support devices: Satisfactory position. Heart: Stable. Lungs/Pleura: Mild pulmonary opacities are stable. No pneumothorax. IMPRESSION: 1. No significant change.
[2022-04-19] MEDS ORDERED: INSULIN REGULAR, HUMAN 100 UNITS/1 ML SUB-Q SCH (12:00)
[2022-04-19] MEDS: AMIODARONE 900 MG in DEXTROSE 5% IN WATER 482 ML IV SCH (14:07)
[2022-04-19] MEDS: ACETAMINOPHEN 325 MG TAB PO PRN (17:25)
[2022-04-19] MEDS: INSULIN GLARGINE 100 UNITS/ML SUB-Q SCH (21:20)
[2022-04-20] MEDS: INSULIN LISPRO 100 UNIT/ML SUB-Q SCH ×4 (00:41→18:13)
[2022-04-20] MEDS: fentaNYL DRIP Premix 2,000 MCG/100 ML BAG IV SCH ×4 (02:20→18:04)
--- NOTE | 2022-04-20 03:31 | XRay Report ---
XR chest 1V ap INDICATION / CLINICAL INFORMATION: follow up respiratory failure. COMPARISON: Radiograph from yesterday. FINDINGS: SUPPORT DEVICES: Unchanged. HEART /PULMONARY VASCULATURE: Unchanged. LUNGS / PLEURA: Perihilar and bibasilar opacities are similar. No pneumothorax. IMPRESSION: 1. No significant interval change. Signer Name: Buddy Barrow MD Signed: 04/20/2022 3:27 AM Workstation Name: [email or web address]
[2022-04-20 04:27] LABS: Hematocrit 35.3 % (35.5-45.6); Hemoglobin 11.6 gm/dl (11.8-15.2); Mean Corpuscular HGB Conc 33 % (32-34); Mean Corpuscular Volume 88 fl (84-94); Platelet Count 146 K/mm3 (140-440); Red Cell Distribution Width 14.5 % (13.2-15.2)
[2022-04-20 04:42] LABS: Albumin 2.4 g/dL (3.9-5); Calcium 7.2 mg/dL (8.4-10.2)
[2022-04-20] MEDS: AMIODARONE 900 MG in DEXTROSE 5% IN WATER 482 ML IV SCH ×2 (05:15→20:20)
[2022-04-20] MEDS: FAMOTIDINE 20 MG TAB FEEDTUBE SCH (09:06)
[2022-04-20] MEDS: SENNOSIDES/DOCUSATE SODIUM 8.6/50 MG TAB FEEDTUBE SCH ×2 (09:06→21:00)
--- NOTE | 2022-04-20 10:10 | Electrocardiograph Report ---
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
--- NOTE | 2022-04-20 10:10 | Electrocardiograph Report ---
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
--- NOTE | 2022-04-20 10:10 | Electrocardiograph Report ---
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
--- NOTE | 2022-04-20 10:17 | Progress Note ---
Assessment and Plan VINCENT - Likey Contrast Induced Nephropathy (TASHA) with still worsening BUN/Cr. 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 Meanwhile, cautious IVF NS & review Renal u/s when ready Hypotension - F/u on pressors. Suggest to hold Dobutamine & if possible Dopamine then Neosynephrine & f/u on Levophed, Vasopressin & IVF NS S/p V Fib Arrest - On Amiodarone, f/u arousal Lytes - F/u K & Na closely Resp Failure - Pneumonia Vs Pulm Edema. F/u vent weaning per Pulm Subjective Date of service: 04/20/22 Interval history: On Vent & pressors s/p V fib Arrest Objective - Vital Signs Vital signs: Vital Signs - 12hr 04/19/22 04/19/22 04/19/22 22:15 22:31 22:45 Temperature Pulse Rate 121 H 125 H 116 H Pulse Rate [ From Monitor] Respiratory 25 H 25 H 25 H Rate Blood Pressure 98/71 98/71 O2 Sat by Pulse 95 96 96 Oximetry 04/19/22 04/19/22 04/19/22 23:00 23:15 23:31 Temperature Pulse Rate 106 H 118 H 113 H Pulse Rate [ From Monitor] Respiratory 25 H 25 H 25 H Rate Blood Pressure 98/75 98/75 98/75 O2 Sat by Pulse 97 96 97 Oximetry 04/19/22 04/20/22 04/20/22 23:45 00:00 00:05 Temperature Pulse Rate 119 H 125 H Pulse Rate [ 110 H 110 H From Monitor] Respiratory 25 H 25 H 25 H Rate Blood Pressure 98/75 96/64 O2 Sat by Pulse 97 99 99 Oximetry 04/20/22 04/20/22 04/20/22 00:15 00:30 00:31 Temperature Pulse Rate 109 H 109 H 113 H Pulse Rate [ From Monitor] Respiratory 25 H 25 H Rate Blood Pressure 96/64 96/64 96/64 O2 Sat by Pulse 97 97 97 Oximetry 04/20/22 04/20/22 04/20/22 00:45 01:01 01:15 Temperature Pulse Rate 113 H 119 H 113 H Pulse Rate [ From Monitor] Respiratory 25 H 25 H 25 H Rate Blood Pressure 96/64 101/77 101/77 O2 Sat by Pulse 97 97 97 Oximetry 04/20/22 04/20/2204/20/22 01:31 01:45 02:00 Temperature Pulse Rate 124 H 131 H 123 H Pulse Rate [ From Monitor] Respiratory 25 H 25 H 25 H Rate Blood Pressure 101/77 101/77 96/70 O2 Sat by Pulse 97 97 97 Oximetry 04/20/22 04/20/22 04/20/22 02:15 02:31 02:45 Temperature Pulse Rate 117 H 125 H 114 H Pulse Rate [ From Monitor] Respiratory 25 H 25 H 25 H Rate Blood Pressure 96/70 96/70 96/70 O2 Sat by Pulse 97 97 97 Oximetry 04/20/22 04/20/22 04/20/22 03:00 03:15 03:31 Temperature Pulse Rate 107 H 125 H 126 H Pulse Rate [ From Monitor] Respiratory 25 H 25 H 25 H Rate Blood Pressure 97/68 97/68 97/68 O2 Sat by Pulse 96 96 97 Oximetry 04/20/22 04/20/22 04/20/22 03:45 04:00 04:01 Temperature 98.8 F Pulse Rate 120 H 113 H 115 H Pulse Rate [ 113 H From Monitor] Respiratory 25 H 25 H 25 H Rate Blood Pressure 97/68 88/67 O2 Sat by Pulse 97 99 97 Oximetry 04/20/22 04/20/22 04/20/22 04:15 04:31 04:45 Temperature Pulse Rate 109 H 118 H 113 H Pulse Rate [ From Monitor] Respiratory 25 H 25 H 25 H Rate Blood Pressure 88/67 88/67 88/67 O2 Sat by Pulse 95 96 97 Oximetry 04/20/22 04/20/22 04/20/22 04:50 05:00 05:15 Temperature Pulse Rate 122 H 113 H 111 H Pulse Rate [ From Monitor] Respiratory 25 H 25 H Rate Blood Pressure 89/74 89/74 88/67 O2 Sat by Pulse 97 97 97 Oximetry 04/20/22 04/20/22 04/20/22 05:31 05:45 06:00 Temperature Pulse Rate 123 H 118 H 114 H Pulse Rate [ From Monitor] Respiratory 25 H 26 H 25 H Rate Blood Pressure 88/67 88/67 97/70 O2 Sat by Pulse 97 94 95 Oximetry 04/20/22 04/20/22 04/20/22 06:15 06:31 06:45 Temperature Pulse Rate 114 H 113 H 102 H Pulse Rate [ From Monitor] Respiratory 25 H 25 H 25 H Rate Blood Pressure 97/70 97/70 97/70 O2 Sat by Pulse 94 97 97 Oximetry 04/20/22 04/20/22 04/20/22 07:00 07:15 07:31 Temperature Pulse Rate 107 H 112 H 116 H Pulse Rate [ From Monitor] Respiratory 25 H 25 H 25 H Rate Blood Pressure 101/73 101/73 101/73 O2 Sat by Pulse 97 98 98 Oximetry 04/20/22 04/20/22 04/20/22 07:45 07:55 08:00 Temperature 99.1 F Pulse Rate 114 H 118 H Pulse Rate [ 118 H From Monitor] Respiratory 25 H 25 H Rate Blood Pressure 101/73 109/75 O2 Sat by Pulse 98 98 Oximetry 04/20/22 04/20/22 04/20/22 08:15 08:31 08:45 Temperature Pulse Rate 110 H 109 H 124 H Pulse Rate [ From Monitor] Respiratory 25 H 25 H 25 H Rate Blood Pressure 109/75 109/75 109/75 O2 Sat by Pulse 98 98 98 Oximetry 04/20/22 09:00 Temperature Pulse Rate 113 H Pulse Rate [ From Monitor] Respiratory 25 H Rate Blood Pressure 109/73 O2 Sat by Pulse 98 Oximetry - General Appearance General appearance: sedated on ventilator EENT: other (OG tube in place with feed) Neck: supple Respiratory: Present: Rales Cardiology: S1S2 Gastrointestinal: other (Soft) Neurologic: other (Sedated) - Lab 04/20/22 04:12 04/20/22 04:12 Most recent lab results ABG pH 7.471 pH Units (7.350-7.450) H 04/19/22 08:50 ABG pCO2 38.0 mm Hg 04/19/22 08:50 ABG pO2 58.9 mm Hg (80.0-90.0) L 04/19/22 08:50 ABG HCO3 27.1 mmol/L (20.0-26.0) H 04/19/22 08:50 ABG O2 Saturation 91.7 % (95.0-99.0) L 04/19/22 08:50 Calcium 7.2 mg/dL (8.4-10.2) L 04/20/22 04:12 Phosphorus 4.10 mg/dL (2.5-4.5) 04/20/22 04:12 Magnesium 2.30 mg/dL (1.7-2.3) 04/20/22 04:12 Urine Creatinine 90.9 mg/dL (0.1-20.0) H 04/19/22 02:08 Urine Sodium 54 mmol/L 04/19/22 02:08 Medications & Allergies - Medications Allergies/Adverse Reactions: Allergies No Known Allergies Allergy (Unverified 04/17/22 19:30) Active Medications: Generic Name Dose Route Start Last Admin Trade Name Freq PRN Reason Stop Dose Admin Acetaminophen 650 mg 04/17/22 19:48 04/19/22 17:25 Acetaminophen 325 Mg Tab PO 650 mg Q6H PRN Administration Pain MILD(1-3)/Fever >100.5/CHE Albuterol 2.5 mg 04/17/22 19:48 Albuterol 2.5 Mg/3 Ml Nebu IH Q3HRT PRN Shortness Of Breath Dextrose 0 ml 04/17/22 23:46 Dextrose 50% In Water (25gm) 50 Ml Syringe IV Q30MIN PRN Hypoglycemia Protocol Famotidine 20 mg 04/20/22 10:00 04/20/22 09:06 Famotidine 20 Mg Tab FEEDTUBE 20 mg DAILY FLACO Administration Fentanyl 50 mcg 04/17/22 20:22 04/18/22 03:52 Fentanyl 100 Mcg/2 Ml Inj IV 50 mcg Q10MIN PRN Administration ANALGESIA Hydrophilic Ointment 1 applic 04/18/22 06:02 Lip Therapy Vaseline TP Q2HR PRN Dry Lips Amiodarone HCl 900 mg/ 500 mls @ 33.333 mls/hr 04/17/22 20:00 04/20/22 05:15 Dextrose IV 1 mg/min DIRECT FLACO 33.333 mls/hr Administration Protocol 1 MG/MIN NORepinephrine/NS 8 MG-250 ML 8 mg in 250 mls @ 3.75 mls/hr 04/17/22 21:00 04/20/22 07:12 Norepinephrine/Ns 8 Mg-250 Ml (Double Conc) IV 0 mcg/min TITRATE FLACO 0 mls/hr Titration Protocol 2 MCG/MIN Fentanyl Citrate 2,000 mcg in 100 mls @ 5.443 mls/hr 04/17/22 21:00 04/20/22 09:00 Fentanyl Drip Premix IV 3 mcg/kg/hr TITR FLACO 16.329 mls/hr Titration Protocol 1 MCG/KG/HR Vasopressin 20 unit/ Sodium 101 mls @ 9.09 mls/hr 04/17/22 23:45 04/19/22 09:44 Chloride IV 0 units/min TITR FLACO 0 mls/hr Titration Protocol 0.03 UNITS/MIN Heparin Sodium/Sodium Chloride 25,000 unit in 500 mls @ 20 mls/hr 04/18/22 06:00 04/19/22 19:49 Heparin/ 0.45% Nacl-25,000 Unit/500 Ml IV 1,400 units/hr TITRATE FLACO 28 mls/hr Administration Protocol 1,000 UNITS/HR Propofol 1,000 mg in 100 mls @ 3.456 mls/hr 04/18/22 07:00 04/20/22 08:21 Diprivan 10 Mg/Ml IV 35 mcg/kg/min TITR FLACO 24.192 mls/hr Titration Protocol 5 MCG/KG/MIN Phenylephrine HCl 100 mg/ 100 mls @ 3 mls/hr 04/18/22 07:30 Sodium Chloride IV TITR FLACO Protocol 50 MCG/MIN Dobutamine HCl/Dextrose 500 mg in 250 mls @ 17.28 mls/hr 04/18/22 11:00 04/19/22 07:25 Dobutrex Drip 500mg/D5w 250ml IV Infused DIRECT FLACO Infusion Protocol 5 MCG/KG/MIN Dopamine HCl/Dextrose 800 mg in 250 mls @ 4.32 mls/hr 04/19/22 02:00 04/19/22 14:41 Dopamine 800 Mg/D5w 250ml IV 0 mcg/kg/min TITR FLACO 0 mls/hr Titration Protocol 2 MCG/KG/MIN Levofloxacin/Dextrose 500 mg in 100 mls @ 100 mls/hr 04/20/22 22:00 Levaquin 500mg/100ml IV Q48H [facility] Protocol Insulin Glargine 20 units 04/19/22 22:00 04/19/22 21:20 Insulin Glargine 100 Units/Ml SUB-Q 20 units QHS FLACO Administration Insulin Human Lispro 0 unit 04/18/22 00:00 04/20/22 05:18 Insulin Lispro 100 Unit/Ml SUB-Q 6 unit Q6HR [facility] Administration Protocol Multi-Ingred Cream/Lotion/Oil/Oint 1 applic 04/18/22 06:02 Mineral Oil/Petrolatum, White Ophth Oint 3.5 Gm OU Q4HR PRN Dry Eye(s) Oxycodone/Acetaminophen 1 tab 04/17/22 19:48 Oxycodone /Acetaminophen 5-325mg Tab PO Q16H PRN Pain, Moderate (4-6) Senna/Docusate Sodium 1 tab 04/18/22 10:00 04/20/22 09:06 Sennosides/Docusate Sodium 8.6/50 Mg Tab FEEDTUBE 1 tab BID FLACO Administration Sodium Chloride 10 ml 04/17/22 22:00 04/20/22 09:06 Sodium Chloride 0.9% 10 Ml Flush Syringe IV 10 ml BID FLACO Administration Sodium Chloride 10 ml 04/17/22 19:48 Sodium Chloride 0.9% 10 Ml Flush Syringe IV PRN PRN LINE FLUSH
--- NOTE | 2022-04-20 10:18 | Electrocardiograph Report ---
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
--- NOTE | 2022-04-20 11:45 | Progress Note ---
Assessment and Plan - Patient Problems (1) Cardiac arrest Current Visit: Yes Status: Acute Plan to address problem: It will be recalled that he presented to [facility] emergency clinic with chest pain, and during his evaluation there, suffered an acute cardiopulmonary arrest prompting his transfer to the emergency room at [facility]. EKG was a rapid atrial fibrillation on his presentation with some nonspecific ST segment changes which have since resolved. Echocardiogram shows a four-chamber dilated cardiomyopathy with left ventricular ejection fraction 15 to 20%. The chronicity of the cardiomyopathy is uncertain, the patient's does not report any recent cardiac evaluation, with only a history of atrial fibrillation requiring cardioversion some 15 years ago. Patient is currently not a candidate for invasive cardiac evaluation due to the presence of acute renal failure. His creatinine was 1.6 on presentation, and is currently 4.6. Nephrology is following his clinical progress, cardiac invasive assessment will depend on further assessment of renal failure with regards to potential for renal replacement therapy. Continue amiodarone, we will introduce beta-blockers, nitrates and hydralazine as tolerated. Subjective Date of service: 04/20/22 Principal diagnosis: Cardiopulmonary arrest Interval history: The patient is sedated, on the vent. 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 Blood pressure is 111 systolic. Patient is reportedly been successfully weaned off pressor agents. It will be recalled that he presented to [facility] emergency clinic with chest pain, and during his evaluation there, suffered an acute cardiopulmonary arrest prompting his transfer to the emergency room at [facility]. EKG was a rapid atrial fibrillation on his presentation with some nonspecific ST segment changes which have since resolved. Echocardiogram shows a four-chamber dilated cardiomyopathy with left ventricular ejection fraction 15 to 20%. The chronicity of the cardiomyopathy is uncertain, the patient's does not report any recent cardiac evaluation, with only a history of atrial fibrillation requiring cardioversion some 15 years ago. Objective Vital Signs Temp Pulse Pulse Resp BP Pulse Ox 04/20/22 11:00 116 H 25 H 111/73 99 04/20/22 10:45 112 H 25 H 101/76 99 04/20/22 10:31 108 H 25 H 101/76 99 04/20/22 10:15 111 H 25 H 101/76 99 04/20/22 10:00 109 H 25 H 101/76 99 04/20/22 09:45 112 H 25 H 109/73 99 04/20/22 09:31 115 H 25 H 109/73 97 04/20/22 09:15 114 H 25 H 109/73 99 04/20/22 09:00 113 H 25 H 109/73 98 04/20/22 08:45 124 H 25 H 109/75 98 04/20/22 08:31 109 H 25 H 109/75 98 04/20/22 08:15 110 H 25 H 109/75 98 04/20/22 08:00 118 H 118 H 25 H 109/75 98 04/20/22 07:55 99.1 F 04/20/22 07:45 114 H 25 H 101/73 98 04/20/22 07:31 116 H 25 H 101/73 98 04/20/22 07:15 112 H 25 H 101/73 98 04/20/22 07:00 107 H 25 H 101/73 97 04/20/22 06:45 102 H 25 H 97/70 97 04/20/22 06:31 113 H 25 H 97/70 97 04/20/22 06:15 114 H 25 H 97/70 94 04/20/22 06:00 114 H 25 H 97/70 95 04/20/22 05:45 118 H 26 H 88/67 94 04/20/22 05:31 123 H 25 H 88/67 97 04/20/22 05:15 111 H 25 H 88/67 97 04/20/22 05:00 113 H 25 H 89/74 97 04/20/22 04:50 122 H 89/74 97 04/20/22 04:45 113 H 25 H 88/67 97 04/20/22 04:31 118 H 25 H 88/67 96 04/20/22 04:15 109 H 25 H 88/67 95 04/20/22 04:01 115 H 25 H 88/67 97 04/20/22 04:00 98.8 F 113 H 113 H 25 H 99 04/20/22 03:45 120 H 25 H 97/68 97 04/20/22 03:31 126 H 25 H 97/68 97 04/20/22 03:15 125 H 25 H 97/68 96 04/20/22 03:00 107 H 25 H 97/68 96 04/20/22 02:45 114 H 25 H 96/70 97 04/20/22 02:31 125 H 25 H 96/70 97 04/20/22 02:15 117 H 25 H 96/70 97 04/20/22 02:00 123 H 25 H 96/70 97 04/20/22 01:45 131 H 25 H 101/77 97 04/20/22 01:31 124 H 25 H 101/77 97 04/20/22 01:15 113 H 25 H 101/77 97 04/20/22 01:01 119 H 25 H 101/77 97 04/20/22 00:45 113 H 25 H 96/64 97 04/20/22 00:31 113 H 25 H 96/64 97 04/20/22 00:30 109 H 96/64 97 04/20/22 00:15 109 H 25 H 96/64 97 04/20/22 00:05 110 H 25 H 99 04/20/22 00:00 125 H 110 H 25 H 96/64 99 04/19/22 23:45 119 H 25 H 98/75 97 04/19/22 23:31 113 H 25 H 98/75 97 04/19/22 23:15 118 H 25 H 98/75 96 04/19/22 23:00 106 H 25 H 98/75 97 04/19/22 22:45 116 H 25 H 98/71 96 04/19/22 22:31 125 H 25 H 98/71 96 04/19/22 22:15 121 H 25 H 95 04/19/22 22:07 112 H 25 H 95 04/19/22 21:45 121 H 25 H 90/61 93 04/19/22 21:31 123 H 25 H 90/61 90 04/19/22 21:15 125 H 21 102/78 82 L 04/19/22 21:01 124 H 25 H 102/78 99 04/19/22 20:45 115 H 25 H 90/61 99 04/19/22 20:31 127 H 25 H 90/61 99 04/19/22 20:15 120 H 25 H 90/61 99 04/19/22 20:00 98.9 F 118 H 118 H 25 H 90/61 99 04/19/22 19:50 120 H 102/78 99 04/19/22 19:45 126 H 25 H 106/63 99 04/19/22 19:31 121 H 25 H 106/63 99 04/19/22 19:15 111 H 25 H 98/65 98 04/19/22 19:00 119 H 25 H 98/65 99 04/19/22 18:45 120 H 25 H 106/63 98 04/19/22 18:33 99 F 04/19/22 18:31 116 H 25 H 106/63 98 04/19/22 18:15 105 H 25 H 106/63 98 04/19/22 18:00 117 H 25 H 106/63 98 04/19/22 17:45 122 H 25 H 107/71 98 04/19/22 17:31 107 H 25 H 107/71 98 04/19/22 17:15 133 H 25 H 107/71 98 04/19/22 17:00 120 H 25 H 107/71 97 04/19/22 16:45 135 H 25 H 99/64 97 04/19/22 16:31 115 H 25 H 99/64 97 04/19/22 16:15 115 H 25 H 99/64 97 04/19/22 16:00 101.5 F H 121 H 121 H 25 H 99/64 98 04/19/22 15:45 113 H 25 H 94/68 98 04/19/22 15:31 118 H 25 H 94/68 98 04/19/22 15:15 131 H 25 H 94/68 98 04/19/22 15:13 119 H 93/67 98 04/19/22 15:00 136 H 25 H 94/68 97 04/19/22 14:45 128 H 25 H 99/61 97 04/19/22 14:31 127 H 25 H 99/61 96 04/19/22 14:15 121 H 25 H 99/61 96 04/19/22 14:00 135 H 25 H 99/61 96 04/19/22 13:45 119 H 25 H 99/65 96 04/19/22 13:31 137 H 25 H 105/61 95 04/19/22 13:15 143 H 25 H 105/61 95 04/19/22 13:00 130 H 25 H 99/65 94 04/19/22 12:45 135 H 25 H 105/61 94 04/19/22 12:31 126 H 25 H 105/61 92 04/19/22 12:15 128 H 25 H 105/61 91 04/19/22 12:00 98.7 F 122 H 121 H 25 H 105/61 94 04/19/22 11:45 117 H 25 H 105/64 93 - Physical Examination General: Other (Patient is intubated, sedated, on the vent) HEENT: Positive: Other (Pupils fixed) Neck: Positive: neck supple Cardiac: Positive: irregularly irregular Lungs: Positive: Decreased Breath Sounds Neuro: Positive: Other (Intubated, sedated on the vent) Abdomen: Positive: Soft Skin: Positive: Clear Extremities: Absent: edema - Labs and Meds Cardiac Enzymes 04/20/22 Range/Units 04:12 AST 553 H (5-40) units/L Lipids 04/20/22 Range/Units 09:10 Triglycerides 254 H (2-149) mg/dL CBC 04/20/22 Range/Units 04:12 WBC 12.2 H (4.5-11.0) K/mm3 RBC 4.00 (3.65-5.03) M/mm3 Hgb 11.6 L (11.8-15.2) gm/dl Hct 35.3 L (35.5-45.6) % Plt Count 146 (140-440) K/mm3 Comprehensive Metabolic Panel 04/20/22 Range/Units 04:12 Sodium 133 L (137-145) mmol/L Potassium 3.5 L (3.6-5.0) mmol/L Chloride 91.9 L (98-107) mmol/L Carbon Dioxide 25 (22-30) mmol/L BUN 44 H (9-20) mg/dL Creatinine 4.6 H (0.8-1.3) mg/dL Glucose 263 H (75-100) mg/dL Calcium 7.2 L (8.4-10.2) mg/dL AST 553 H (5-40) units/L ALT 471 H (7-56) units/L Alkaline Phosphatase 87 (35-129) units/L Total Protein 5.7 L (6.3-8.2) g/dL Albumin 2.4 L (3.9-5) g/dL
--- NOTE | 2022-04-20 11:52 | Progress Note ---
Assessment and Plan Acute hypoxemic respiratory failure Altered mental status Aspiration pneumonia Shock (Cardiogenic +/- Septic) Severe Metabolic Acidosis Morbid Obesity Diabetes type II Hypotension Obesity hypoventilation syndrome - care plan explained at length to his in the room - [facility] - non oliguric - neurology consult placed - reduced set rate to 16/min - repeat ABG at 9 pm- reduced FiO2 to 40% with peep at 8 - lactic acid level trending down - now off vasopressors (target MAP > 65mmHg) - continue daily SAT and SBT assessment as tolerated - continue to wean supplemental oxygen for target O2 sat's > 90% acutely - VAP bundle addressed - continue lung protective strategies - continue bronchodilators with pulmonary hygiene per RT - wean per pulmonary driven protocols otherwise - avoid nephrotoxins, renally dose all medications - continue accuchecks with glycemic control per SSI (While critically ill target blood glucose of 140-180 mg/dL; avoid hypoglycemia) - sedation prn for target RASS 0 to -1 - continue to avoid benzodiazepine's, reduce the possibility of delirium - AB's per ID rec's - prn analgesia per CPOT score - Maintenance of sleep-wake cycle, avoid delirium - continue enteral nutritional support at goal rate as tolerated - G.I. & VTE prophylaxis - PT/OT/ROM exercises - continue mobility protocols for pressure ulcer prophylaxis - Monitor hemodynamics closely - continue other care per attending / other consultants - discharge planning ongoing concurrently COVID SPECIFIC INTERVENTIONS - COVID-19 test result pending .... Re-evaluate in am & prn CONDITION: CRITICAL PROGNOSIS: GUARDED CODE STATUS: FULL CODE The high probability of a clinically significant, sudden or life-threatening deterioration of the [respiratory, cardiovascular, renal & neurologic] system(s) required my full and direct attention, intervention and personal management. The aggregate critical care time was [40] minutes without overlap. Time includes spent on; [x] Data Review and interpretation [x] Patient assessment and monitoring of vital signs [x] Documentation [x] Medication orders and management Subjective Date of service: 04/20/22 Principal diagnosis: AHRF; AMS; Pneumonia; Shock; DM II; Severe Metabolic Ac idosis Interval history: Patient is seen today for: Acute hypoxemic respiratory failure; AMS; Aspiration pneumonia; Shock (Cardiogenic +/- Septic); DM II; Severe Metabolic Acidosis Seen and examined at bedside; 24hour events reviewed; nursing and respiratory care staff consulted; no adverse overnight events reported to me; resting in bed; remains on MVS; remains on multiple vasopressors but room to wean; oxygenation and ventilation much better as is metabolic acidosis; AMS is still persistent but moving extremities when sedation lightened and initial CT brain negative Objective Vital Signs - 12hr 04/20/22 04/20/22 04/20/22 00:00 00:05 00:15 Temperature Pulse Rate 125 H 109 H Pulse Rate [ 110 H 110 H From Monitor] Respiratory 25 H 25 H 25 H Rate Blood Pressure 96/64 96/64 O2 Sat by Pulse 99 99 97 Oximetry 04/20/22 04/20/22 04/20/22 00:30 00:31 00:45 Temperature Pulse Rate 109 H 113 H 113 H Pulse Rate [ From Monitor] Respiratory 25 H 25 H Rate Blood Pressure 96/64 96/64 96/64 O2 Sat by Pulse 97 97 97 Oximetry 04/20/22 04/20/22 04/20/22 01:01 01:15 01:31 Temperature Pulse Rate 119 H 113 H 124 H Pulse Rate [ From Monitor] Respiratory 25 H 25 H 25 H Rate Blood Pressure 101/77 101/77 101/77 O2 Sat by Pulse 97 97 97 Oximetry 04/20/22 04/20/22 04/20/22 01:45 02:00 02:15 Temperature Pulse Rate 131 H 123 H 117 H Pulse Rate [ From Monitor] Respiratory 25 H 25 H 25 H Rate Blood Pressure 101/77 96/70 96/70 O2 Sat by Pulse 97 97 97 Oximetry 04/20/22 04/20/22 04/20/22 02:31 02:45 03:00 Temperature Pulse Rate 125 H 114 H 107 H Pulse Rate [ From Monitor] Respiratory 25 H 25 H 25 H Rate Blood Pressure 96/70 96/70 97/68 O2 Sat by Pulse 97 97 96 Oximetry 04/20/22 04/20/22 04/20/22 03:15 03:31 03:45 Temperature Pulse Rate 125 H 126 H 120 H Pulse Rate [ From Monitor] Respiratory 25 H 25 H 25 H Rate Blood Pressure 97/68 97/68 97/68 O2 Sat by Pulse 96 97 97 Oximetry 04/20/22 04/20/22 04/20/22 04:00 04:01 04:15 Temperature 98.8 F Pulse Rate 113 H 115 H 109 H Pulse Rate [ 113 H From Monitor] Respiratory 25 H 25 H 25 H Rate Blood Pressure 88/67 88/67 O2 Sat by Pulse 99 97 95 Oximetry 04/20/22 04/20/22 04/20/22 04:31 04:45 04:50 Temperature Pulse Rate 118 H 113 H 122 H Pulse Rate [ From Monitor] Respiratory 25 H 25 H Rate Blood Pressure 88/67 88/67 89/74 O2 Sat by Pulse 96 97 97 Oximetry 04/20/22 04/20/22 04/20/22 05:00 05:15 05:31 Temperature Pulse Rate 113 H 111 H 123 H Pulse Rate [ From Monitor] Respiratory 25 H 25 H 25 H Rate Blood Pressure 89/74 88/67 88/67 O2 Sat by Pulse 97 97 97 Oximetry 04/20/22 04/20/22 04/20/22 05:45 06:00 06:15 Temperature Pulse Rate 118 H 114 H 114 H Pulse Rate [ From Monitor] Respiratory 26 H 25 H 25 H Rate Blood Pressure 88/67 97/70 97/70 O2 Sat by Pulse 94 95 94 Oximetry 04/20/22 04/20/22 04/20/22 06:31 06:45 07:00 Temperature Pulse Rate 113 H 102 H 107 H Pulse Rate [ From Monitor] Respiratory 25 H 25 H 25 H Rate Blood Pressure 97/70 97/70 101/73 O2 Sat by Pulse 97 97 97 Oximetry 04/20/22 04/20/22 04/20/22 07:15 07:31 07:45 Temperature Pulse Rate 112 H 116 H 114 H Pulse Rate [ From Monitor] Respiratory 25 H 25 H 25 H Rate Blood Pressure 101/73 101/73 101/73 O2 Sat by Pulse 98 98 98 Oximetry 04/20/22 04/20/22 04/20/22 07:55 08:00 08:15 Temperature 99.1 F Pulse Rate 118 H 110 H Pulse Rate [ 118 H From Monitor] Respiratory 25 H 25 H Rate Blood Pressure 109/75 109/75 O2 Sat by Pulse 98 98 Oximetry 04/20/22 04/20/22 04/20/22 08:31 08:45 09:00 Temperature Pulse Rate 109 H 124 H 113 H Pulse Rate [ From Monitor] Respiratory 25 H 25 H 25 H Rate Blood Pressure 109/75 109/75 109/73 O2 Sat by Pulse 98 98 98 Oximetry 04/20/22 04/20/22 04/20/22 09:15 09:31 09:45 Temperature Pulse Rate 114 H 115 H 112 H Pulse Rate [ From Monitor] Respiratory 25 H 25 H 25 H Rate Blood Pressure 109/73 109/73 109/73 O2 Sat by Pulse 99 97 99 Oximetry 04/20/22 04/20/22 04/20/22 10:00 10:15 10:31 Temperature Pulse Rate 109 H 111 H 108 H Pulse Rate [ From Monitor] Respiratory 25 H 25 H 25 H Rate Blood Pressure 101/76 101/76 101/76 O2 Sat by Pulse 99 99 99 Oximetry 04/20/22 04/20/22 10:45 11:00 Temperature Pulse Rate 112 H 116 H Pulse Rate [ From Monitor] Respiratory 25 H 25 H Rate Blood Pressure 101/76 111/73 O2 Sat by Pulse 99 99 Oximetry Constitutional: no acute distress, asleep, other (elderly obese 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 MVS) Eyes: non-icteric ENT: oropharynx moist, other (ETT 24 cm DIANNE) Neck: supple, no JVD Effort: normal Ascultation: Bilateral: diminished breath sounds, rales Percussion: Bilateral: not dull Cardiovascular: irregular rhythm, other (No R/M) Gastrointestinal: normoactive bowel sounds, soft, non-tender, non-distended (protuberant) Integumentary: normal Extremities: no cyanosis, no edema, pulses normal, no ischemia or petechiae Neurologic: non-focal exam (grossly), pupils equal and round, unable to assess Psychiatric: other (Unable to assess due to mental status.) CBC and BMP: 04/20/22 04:12 04/20/22 04:12 ABG, PT/INR, D-dimer: ABG ABG pH 7.471 pH Units (7.350-7.450) H 04/19/22 08:50 ABG pCO2 38.0 mm Hg 04/19/22 08:50 ABG pO2 58.9 mm Hg (80.0-90.0) L 04/19/22 08:50 ABG O2 Saturation 91.7 % (95.0-99.0) L 04/19/22 08:50 PT/INR, D-dimer PT 15.6 Sec. (12.2-14.9) H 04/18/22 Unknown INR 1.08 (0.87-1.13) 04/18/22 Unknown Abnormal lab findings: Abnormal Labs 04/17/22 04/17/22 04/17/22 19:18 19:55 19:56 WBC RBC Hgb Hct Seg Neutrophils % Seg Neuts % (Manual) Lymphocytes % (Manual) Seg Neutrophils # Seg Neutrophils # Man PT Heparin Anti-Xa Level ABG pH 7.120 L* ABG pO2 45.3 L ABG HCO3 18.5 L ABG O2 Saturation 68.3 L ABG Base Excess -11.5 L ABG Hemoglobin Oxyhemoglobin 66.8 L Sodium Potassium Chloride 94.2 L Carbon Dioxide 17 L BUN Creatinine 1.6 H Glucose 315 H POC Glucose 277 H Lactic Acid Calcium Phosphorus Magnesium AST 529 H ALT 318 H Alkaline Phosphatase 137 H Total Creatine Kinase 398 H CK-MB (CK-2) 17.9 H CK-MB (CK-2) Rel Index 4.4 H Troponin T 0.205 H* Total Protein Albumin Triglycerides Urine Blood Urine WBC (Auto) Urine Creatinine 04/17/22 04/17/22 04/17/22 19:58 19:58 21:42 WBC 11.9 H RBC 5.17 H Hgb 15.5 H Hct 48.0 H Seg Neutrophils % 71.7 H Seg Neuts % (Manual) Lymphocytes % (Manual) Seg Neutrophils # 8.5 H Seg Neutrophils # Man PT Heparin Anti-Xa Level ABG pH ABG pO2 ABG HCO3 ABG O2 Saturation ABG Base Excess ABG Hemoglobin Oxyhemoglobin Sodium Potassium Chloride 95.0 L Carbon Dioxide 19 L BUN Creatinine 1.5 H Glucose 306 H POC Glucose Lactic Acid Calcium Phosphorus Magnesium AST ALT Alkaline Phosphatase Total Creatine Kinase 412 H CK-MB (CK-2) 19.2 H CK-MB (CK-2) Rel Index 4.6 H Troponin T 0.285 H* D Total Protein Albumin Triglycerides Urine Blood Urine WBC (Auto) Urine Creatinine 04/17/22 04/18/22 04/18/22 21:42 00:40 01:07 WBC RBC Hgb Hct Seg Neutrophils % Seg Neuts % (Manual) Lymphocytes % (Manual) Seg Neutrophils # Seg Neutrophils # Man PT Heparin Anti-Xa Level ABG pH ABG pO2 ABG HCO3 ABG O2 Saturation ABG Base Excess ABG Hemoglobin Oxyhemoglobin Sodium Potassium Chloride Carbon Dioxide BUN Creatinine Glucose POC Glucose 320 H Lactic Acid 7.90 H* 7.90 H* Calcium Phosphorus Magnesium AST ALT Alkaline Phosphatase Total Creatine Kinase CK-MB (CK-2) CK-MB (CK-2) Rel Index Troponin T Total Protein Albumin Triglycerides Urine Blood Urine WBC (Auto) Urine Creatinine 04/18/22 04/18/22 04/18/22 01:07 04:00 06:04 WBC RBC Hgb Hct Seg Neutrophils % Seg Neuts % (Manual) Lymphocytes % (Manual) Seg Neutrophils # Seg Neutrophils # Man PT Heparin Anti-Xa Level < 0.10 L ABG pH ABG pO2 ABG HCO3 ABG O2 Saturation ABG Base Excess ABG Hemoglobin Oxyhemoglobin Sodium Potassium Chloride Carbon Dioxide BUN Creatinine Glucose POC Glucose 305 H Lactic Acid Calcium Phosphorus Magnesium AST ALT Alkaline Phosphatase Total Creatine Kinase 488 H CK-MB (CK-2) 25.3 H CK-MB (CK-2) Rel Index 5.1 H Troponin T 0.665 H* D Total Protein Albumin Triglycerides Urine Blood Urine WBC (Auto) Urine Creatinine 04/18/22 04/18/22 04/18/22 06:20 11:10 12:48 WBC RBC Hgb Hct Seg Neutrophils % Seg Neuts % (Manual) Lymphocytes % (Manual) Seg Neutrophils # Seg Neutrophils # Man PT Heparin Anti-Xa Level < 0.10 L ABG pH 7.119 L* 7.304 L ABG pO2 56.1 L 103.5 H ABG HCO3 18.4 L 14.4 L ABG O2 Saturation 80.7 L ABG Base Excess -11.4 L -10.6 L ABG Hemoglobin 13.5 L Oxyhemoglobin 79.2 L Sodium Potassium Chloride Carbon Dioxide BUN Creatinine Glucose POC Glucose Lactic Acid Calcium Phosphorus Magnesium AST ALT Alkaline Phosphatase Total Creatine Kinase CK-MB (CK-2) CK-MB (CK-2) Rel Index Troponin T Total Protein Albumin Triglycerides Urine Blood Urine WBC (Auto) Urine Creatinine 04/18/22 04/18/22 04/18/22 13:13 16:00 16:00 WBC RBC Hgb Hct Seg Neutrophils % Seg Neuts % (Manual) Lymphocytes % (Manual) Seg Neutrophils # Seg Neutrophils # Man PT Heparin Anti-Xa Level ABG pH ABG pO2 ABG HCO3 ABG O2 Saturation ABG Base Excess ABG Hemoglobin Oxyhemoglobin Sodium Potassium Chloride Carbon Dioxide BUN Creatinine Glucose POC Glucose 334 H Lactic Acid 7.00 H* Calcium Phosphorus 5.70 H Magnesium 1.30 L AST ALT Alkaline Phosphatase Total Creatine Kinase 969 H CK-MB (CK-2) 55.9 H CK-MB (CK-2) Rel Index 5.7 H Troponin T 1.580 H* D Total Protein Albumin Triglycerides Urine Blood Urine WBC (Auto) Urine Creatinine 04/18/22 04/18/22 04/18/22 16:00 18:00 18:01 WBC RBC Hgb Hct Seg Neutrophils % Seg Neuts % (Manual) Lymphocytes % (Manual) Seg Neutrophils # Seg Neutrophils # Man PT Heparin Anti-Xa Level < 0.10 L ABG pH ABG pO2 ABG HCO3 ABG O2 Saturation ABG Base Excess ABG Hemoglobin Oxyhemoglobin Sodium 136 L Potassium 6.3 H* D Chloride 97.6 L Carbon Dioxide 18 L BUN 34 H Creatinine 3.5 H Glucose 409 H POC Glucose 397 H Lactic Acid Calcium 6.8 L Phosphorus Magnesium AST ALT Alkaline Phosphatase Total Creatine Kinase CK-MB (CK-2) CK-MB (CK-2) Rel Index Troponin T Total Protein Albumin Triglycerides Urine Blood Urine WBC (Auto) Urine Creatinine 04/18/22 04/18/22 04/18/22 19:13 20:58 21:22 WBC RBC Hgb Hct Seg Neutrophils % Seg Neuts % (Manual) Lymphocytes % (Manual) Seg Neutrophils # Seg Neutrophils # Man PT Heparin Anti-Xa Level ABG pH 7.502 H ABG pO2 144.5 H ABG HCO3 ABG O2 Saturation ABG Base Excess ABG Hemoglobin 12.5 L Oxyhemoglobin Sodium Potassium Chloride Carbon Dioxide BUN Creatinine Glucose POC Glucose 321 H 307 H Lactic Acid Calcium Phosphorus Magnesium AST ALT Alkaline Phosphatase Total Creatine Kinase CK-MB (CK-2) CK-MB (CK-2) Rel Index Troponin T Total Protein Albumin Triglycerides Urine Blood Urine WBC (Auto) Urine Creatinine 04/18/22 04/18/22 04/18/22 21:30 21:30 Unknown WBC RBC Hgb Hct Seg Neutrophils % Seg Neuts % (Manual) 81.0 H Lymphocytes % (Manual) 12.0 L Seg Neutrophils # 9.8 H Seg Neutrophils # Man 8.7 H PT Heparin Anti-Xa Level ABG pH ABG pO2 ABG HCO3 ABG O2 Saturation ABG Base Excess ABG Hemoglobin Oxyhemoglobin Sodium Potassium Chloride 96.6 L Carbon Dioxide BUN 37 H Creatinine 3.6 H Glucose 312 H POC Glucose Lactic Acid 5.50 H* Calcium 7.3 L Phosphorus Magnesium AST ALT Alkaline Phosphatase Total Creatine Kinase CK-MB (CK-2) CK-MB (CK-2) Rel Index Troponin T Total Protein Albumin Triglycerides Urine Blood Urine WBC (Auto) Urine Creatinine 04/18/22 04/18/22 04/19/22 Unknown Unknown 00:35 WBC RBC Hgb Hct Seg Neutrophils % Seg Neuts % (Manual) Lymphocytes % (Manual) Seg Neutrophils # Seg Neutrophils # Man PT 15.6 H Heparin Anti-Xa Level ABG pH ABG pO2 ABG HCO3 ABG O2 Saturation ABG Base Excess ABG Hemoglobin Oxyhemoglobin Sodium Potassium Chloride Carbon Dioxide 18 L BUN 26 H Creatinine 2.5 H D Glucose 330 H POC Glucose Lactic Acid Calcium 7.9 L Phosphorus Magnesium AST 463 H ALT 249 H Alkaline Phosphatase Total Creatine Kinase CK-MB (CK-2) CK-MB (CK-2) Rel Index Troponin T 2.670 H* D Total Protein Albumin 3.3 L Triglycerides Urine Blood Urine WBC (Auto) Urine Creatinine 04/19/22 04/19/22 04/19/22 00:39 02:08 02:08 WBC RBC Hgb Hct Seg Neutrophils % Seg Neuts % (Manual) Lymphocytes % (Manual) Seg Neutrophils # Seg Neutrophils # Man PT Heparin Anti-Xa Level ABG pH ABG pO2 ABG HCO3 ABG O2 Saturation ABG Base Excess ABG Hemoglobin Oxyhemoglobin Sodium Potassium Chloride Carbon Dioxide BUN Creatinine Glucose POC Glucose 263 H Lactic Acid Calcium Phosphorus Magnesium AST ALT Alkaline Phosphatase Total Creatine Kinase CK-MB (CK-2) CK-MB (CK-2) Rel Index Troponin T Total Protein Albumin Triglycerides Urine Blood Large A Urine WBC (Auto) 88.0 H Urine Creatinine 90.9 H 04/19/22 04/19/22 04/19/22 02:08 03:45 03:45 WBC 14.2 H RBC Hgb Hct Seg Neutrophils % Seg Neuts % (Manual) Lymphocytes % (Manual) Seg Neutrophils # Seg Neutrophils # Man PT Heparin Anti-Xa Level 0.18 L ABG pH ABG pO2 ABG HCO3 ABG O2 Saturation ABG Base Excess ABG Hemoglobin Oxyhemoglobin Sodium Potassium Chloride 94.2 L Carbon Dioxide BUN 39 H Creatinine 3.8 H Glucose 243 H POC Glucose Lactic Acid Calcium 7.1 L Phosphorus Magnesium 1.50 L AST 380 H ALT 289 H Alkaline Phosphatase Total Creatine Kinase CK-MB (CK-2) CK-MB (CK-2) Rel Index Troponin T Total Protein 5.4 L Albumin 2.5 L Triglycerides Urine Blood Urine WBC (Auto) Urine Creatinine 04/19/22 04/19/22 04/19/22 03:45 06:01 07:11 WBC RBC Hgb Hct Seg Neutrophils % Seg Neuts % (Manual) Lymphocytes % (Manual) Seg Neutrophils # Seg Neutrophils # Man PT Heparin Anti-Xa Level ABG pH ABG pO2 ABG HCO3 ABG O2 Saturation ABG Base Excess ABG Hemoglobin Oxyhemoglobin Sodium Potassium Chloride Carbon Dioxide BUN Creatinine Glucose POC Glucose 165 H Lactic Acid 4.00 H* Calcium Phosphorus Magnesium AST ALT Alkaline Phosphatase Total Creatine Kinase 3270 H CK-MB (CK-2) 28.5 H CK-MB (CK-2) Rel Index Troponin T 2.980 H* Total Protein Albumin Triglycerides Urine Blood Urine WBC (Auto) Urine Creatinine 04/19/22 04/19/22 04/19/22 07:50 08:50 12:49 WBC RBC Hgb Hct Seg Neutrophils % Seg Neuts % (Manual) Lymphocytes % (Manual) Seg Neutrophils # Seg Neutrophils # Man PT Heparin Anti-Xa Level ABG pH 7.471 H ABG pO2 58.9 L ABG HCO3 27.1 H ABG O2 Saturation 91.7 L ABG Base Excess 3.4 H ABG Hemoglobin 12.2 L Oxyhemoglobin 90.0 L Sodium Potassium Chloride Carbon Dioxide BUN Creatinine Glucose POC Glucose 331 H Lactic Acid 3.40 H* Calcium Phosphorus Magnesium AST ALT Alkaline Phosphatase Total Creatine Kinase CK-MB (CK-2) CK-MB (CK-2) Rel Index Troponin T Total Protein Albumin Triglycerides Urine Blood Urine WBC (Auto) Urine Creatinine 04/19/22 04/19/22 04/19/22 16:15 19:25 21:17 WBC RBC Hgb Hct Seg Neutrophils % Seg Neuts % (Manual) Lymphocytes % (Manual) Seg Neutrophils # Seg Neutrophils # Man PT Heparin Anti-Xa Level ABG pH ABG pO2 ABG HCO3 ABG O2 Saturation ABG Base Excess ABG Hemoglobin Oxyhemoglobin Sodium Potassium Chloride Carbon Dioxide BUN Creatinine Glucose POC Glucose 304 H 251 H Lactic Acid 4.00 H* Calcium Phosphorus Magnesium AST ALT Alkaline Phosphatase Total Creatine Kinase CK-MB (CK-2) CK-MB (CK-2) Rel Index Troponin T Total Protein Albumin Triglycerides Urine Blood Urine WBC (Auto) Urine Creatinine 04/19/22 04/20/22 04/20/22 23:00 04:12 04:12 WBC 12.2 H RBC Hgb 11.6 L Hct 35.3 L Seg Neutrophils % Seg Neuts % (Manual) Lymphocytes % (Manual) Seg Neutrophils # Seg Neutrophils # Man PT Heparin Anti-Xa Level 0.15 L ABG pH ABG pO2 ABG HCO3 ABG O2 Saturation ABG Base Excess ABG Hemoglobin Oxyhemoglobin Sodium Potassium Chloride Carbon Dioxide BUN Creatinine Glucose POC Glucose 236 H Lactic Acid Calcium Phosphorus Magnesium AST ALT Alkaline Phosphatase Total Creatine Kinase CK-MB (CK-2) CK-MB (CK-2) Rel Index Troponin T Total Protein Albumin Triglycerides Urine Blood Urine WBC (Auto) Urine Creatinine 04/20/22 04/20/22 04/20/22 04:12 04:12 09:10 WBC RBC Hgb Hct Seg Neutrophils % Seg Neuts % (Manual) Lymphocytes % (Manual) Seg Neutrophils # Seg Neutrophils # Man PT Heparin Anti-Xa Level ABG pH ABG pO2 ABG HCO3 ABG O2 Saturation ABG Base Excess ABG Hemoglobin Oxyhemoglobin Sodium 133 L Potassium 3.5 L Chloride 91.9 L Carbon Dioxide BUN 44 H Creatinine 4.6 H Glucose 263 H POC Glucose Lactic Acid 2.80 H* Calcium 7.2 L Phosphorus Magnesium AST 553 H ALT 471 H Alkaline Phosphatase Total Creatine Kinase 3019 H CK-MB (CK-2) CK-MB (CK-2) Rel Index Troponin T Total Protein 5.7 L Albumin 2.4 L Triglycerides 254 H Urine Blood Urine WBC (Auto) Urine Creatinine 04/20/22 11:18 WBC RBC Hgb Hct Seg Neutrophils % Seg Neuts % (Manual) Lymphocytes % (Manual) Seg Neutrophils # Seg Neutrophils # Man PT Heparin Anti-Xa Level ABG pH ABG pO2 ABG HCO3 ABG O2 Saturation ABG Base Excess ABG Hemoglobin Oxyhemoglobin Sodium Potassium Chloride Carbon Dioxide BUN Creatinine Glucose POC Glucose 285 H Lactic Acid Calcium Phosphorus Magnesium AST ALT Alkaline Phosphatase Total Creatine Kinase CK-MB (CK-2) CK-MB (CK-2) Rel Index Troponin T Total Protein Albumin Triglycerides Urine Blood Urine WBC (Auto) Urine Creatinine Chest x-ray: image reviewed (bibasilar L>R infiltrates / atelectasis) Allied health notes reviewed: nursing
[2022-04-20] MEDS: SODIUM CHLORIDE 0.9% 1000 ML 1,000 ML IV SCH (12:27)
[2022-04-20] MEDS: ASPIRIN 81 MG TAB CHEW FEEDTUBE SCH (12:27)
[2022-04-20] MEDS: METOPROLOL TARTRATE 25 MG TAB FEEDTUBE SCH ×2 (12:28→20:20)
--- NOTE | 2022-04-20 12:32 | Event Note ---
Date: 04/20/22 Patient was successfully weaned off pressor agents, systolic blood pressure is 111. However, renal function has continued to worsen, current creatinine is 4.6. I have had discussions with the patient's who is at the bedside, and with the pulp piler. We can proceed with diagnostic cardiac catheterization if the fully understands and accepts that he will need imminent hemodialysis. She wants to think about the recommendation, if she accepts that cardiac catheterization will be associated with imminent and urgent hemodialysis, we will proceed with diagnostic contrast angiography in the morning.
[2022-04-20 12:47] LABS: ABG Base Excess 3.2 mmol/L (-2.0-3.0); ABG HCO3 26.2 mmol/L (20.0-26.0); ABG Methemoglobin 0.5 % (0.0-1.5); ABG Oxygen Saturation 97.3 % (95.0-99.0); ABG PCO2 33.4 mm Hg; ABG PH 7.512 pH Units (7.350-7.450); ABG PO2 86.1 mm Hg (80.0-90.0)
--- NOTE | 2022-04-20 14:06 | Ultrasound Report ---
ULTRASOUND RENAL INDICATION / CLINICAL INFORMATION: Acute renal failure.. COMPARISON: None available. FINDINGS: RIGHT KIDNEY: Length = 12.1 cm. - Echogenicity: Normal. - Cortical Thickness: Normal. - Hydronephrosis: None. - Cyst or mass: No significant abnormality. - Stones: None seen. LEFT KIDNEY: Length = 11.6 cm. - Echogenicity: Normal. - Cortical Thickness: Normal. - Hydronephrosis: None. - Cyst or mass: No significant abnormality. - Stones: None seen. URINARY BLADDER: No significant abnormality. FREE FLUID: None. ADDITIONAL FINDINGS: Gallbladder is distended measuring 10.3 cm IMPRESSION: 1. Gallbladder is distended. No pericholecystic fluid. Clinical correlation. Signer Name: Lewis Roe MD Signed: 04/20/2022 2:01 PM Workstation Name: [id number]
[2022-04-20] MEDS: HEPARIN/ 0.45% NACL DRIP 25,000 UNIT/500 ML BAG IV SCH (14:12)
[2022-04-20] MEDS: ISOSORBIDE DINITRATE 10 MG TAB PO SCH ×2 (14:12→22:31)
[2022-04-20] MEDS: hydrALAZINE 10 MG TAB FEEDTUBE SCH ×2 (14:12→21:04)
--- NOTE | 2022-04-20 14:53 | Progress Note ---
<ESTUARDOMOHIT LockhartDaniele - Last Filed: 04/20/22 15:00> Assessment and Plan Assessment and plan: This is a 62 year old male with OHS, HTN, DM, metabolic syndrome, s/p vfib cardiac arrest, Septic shock, aspiration pneumonia, transaminitis, VINCENT with acute metabolic encephalopathy Neuro: Acute metabolic encephalopathy, facial contusions s/p fall -CT head shows no focal intra-axial mass, hemorrhage, hydrocephalus or acute or large territorial infarct -Sedated with propofol and fentanyl -RASS goal 0 to -1 -Reorientation as needed -Maintain sleep-wake cycle -Neurology consulted, appreciate recommendations -As needed analgesia Cardiac: A. fib RVR , s/p V. fib cardiac arrest, ? cardiogenic shock, h/o atrial fibrillation s/p cardioversion, HTN -Cardiology consulted, appreciate recommendations -S/p V. fib cardiac arrest -S/p dopamine drip which was changed to dobutamine drip which resolved her tachycardia -Currently on amiodarone drip -Blood pressure monitoring per protocol -s/p Vasopressor support with levophed, epinephrine and vasopressin -MAP goal greater than 65 -Echocardiogram shows EF of 15 to 20% -Possible LHC in 24-48 hours -ASA, lipitor, hydralazine, isordil, metoprolol Respiratory: Acute hypoxic respiratory failure -CCM consulted, appreciate recommendations -Intubated on 04/17 with -A.m. vent settings: AC tidal volume 500, rate 25, PEEP 8, FiO2 45% -See RT notes for titration -A.m. ABG and CXR noted -VAP bundle -SPO2 monitoring GI: Transaminitis, moderate protein calorie malnutrition -24 hours +4149 mL -PPI -NTR consulted for tube feedings -BR: Senokot -Trend LFTs : Acute kidney injury likely secondary to vasomotor nephropathy, hypokalemia, hyponatremia, hypochloremia -Nephrology consulted, appreciate recommendations -Strict intake and output -Renally dose medications -Avoid nephrotoxic medications -s/p bicarb gtt -NS MIVF per nephro -Renal ultrasound shows distended gallbladder, no cholecystic fluid -Trend BMP ID: Aspiration pneumonia, Sepsis, lactic acidosis -CTA chest shows extensive bilateral airspace disease present dependent portions and greater in the upper lobes, given distribution could be related to aspiration -Admitted with hypotension, lactic acidosis, acute kidney injury -Antibiotic therapy with Levaquin -f/u blood culture -Monitor WBC and temperature curve Endo: h/o DM -Avoid hypoglycemia -SSI -Accu-Cheks q. 6 -Long-acting insulin, titrate as needed Heme: Leukocytosis, elevated D-dimer -CTA chest shows no pulmonary embolism -Trend CBC -Transfuse hemoglobin less than 7 -Bilateral Doppler ultrasound pending -Anticoagulation with heparin drip -SCDs to BLE while in bed The high probability of a clinically significant, sudden or life threatening deterioration of the [multiple] system(s) required my full and direct attention, intervention and personal management. The aggregate critical care time was [60] minutes. This time is in addition to time spent performing reported procedures but includes the following: [x] Data Review and interpretation [x] Patient assessment and monitoring of vital signs [x] Documentation [x] Medication orders and management Disposition Plan: icu Total Time Spent with Patient (Minutes): 60 History Interval history: This is is a 62-year-old male with OHS, HTN, DM, metabolic syndrome presents the emergency department on 04/17 via EMS s/p cardiac arrest. As per family patient presented to [place] outpatient clinic for evaluation for chest pain and subsequently went to the restroom where he was found unresponsive and EMS arr ived and noted the patient had a V. fib arrest and ACLS was initiated and patient was transported to [facility] for further evaluation. Patient was noted to have aspirated into the oropharynx with suspected aspiration pneumonia complicated by acute hypoxic respiratory failure, septic shock and cardiac ar rest. Patient was initiated on the sepsis protocol, IV vasopressor support and admitted to the ICU with consults to [facility], nephrology and cardiology. Hospital Course to Date: 04/18: Severely acidotic this am, now on bcarb gtt. On high dose pressors- Levophed and Vaso. Afib in control rate on the monitor, on Amiodarone and heparin gtt per protocol. Cardiology is following. Patient remains afebrile and leukocytosis improved this am. Now with worsen renal function and low UOP. Patient's EF is 25 to 30%, Dobutamine gtt initiated. Continue current IV abx, continue to trend troponin and lactic acid. Nephrology also consulted for further recs. BLE swelling noted, BLE doppler ordered to r/o DVT. 04/19: Agitation with low SPO2 overnight, sedation increased. This am ABG with worsen hypoxia on 40% Fio2, SPO2 at 90% this am. Fio2 increased to 50%, SPO2 improved above 92%. Remains on multiple pressors and bcarb gtt. Now on dopamine gtt, in Afib with RVR on the monitor. Still on Amiodarone and heparin gtts. Echo noted, EF 15 to 20%. Cardiology is following. With worsen renal function, however making urine this am. No indication for US[employer]PERIENCE [employer]EARCH[employer] at this per Nephro. Will continue to monitor. Monitor and replace electrolytes as needed 04/20: Nephrology spoke to at bedside re HD, cardiology will proceed with [facility] if patient is to recieve HD post procedure, vent changes per [facility], Sedated with fentanyl and propofol with heparin and amio gtt infusing. Hospitalist Physical - Constitutional Vitals: Temp Pulse Resp BP Pulse Ox 99.1 F 89 20 107/68 98 04/20/22 12:00 04/20/22 14:00 04/20/22 14:00 04/20/22 14:00 04/20/22 14:00 General appearance: Present: no acute distress, other (Intubated and Sedated) - EENT Eyes: Present: PERRL, EOM intact ENT: hearing decreased, poor dentition - Neck Neck: Present: normal ROM - Respiratory Respiratory effort: normal Respiratory: bilateral: diminished - Cardiovascular Rhythm: regular Heart Sounds: Present: S1 & S2. Absent: systolic murmur, diastolic murmur - Extremities Extremities: no ischemia, pulses intact, pulses symmetrical, normal temperature, normal color Extremity abnormal: edema Peripheral Pulses: within normal limits - Abdominal General gastrointestinal: soft, non-tender, non-distended, normal bowel sounds - Integumentary Integumentary: Present: warm, dry - Psychiatric Psychiatric: other - Neurologic Neurologic: other (intact cough/gag, PERRL) - Allied Health Allied health notes reviewed: nursing, RT, social work HEART Score - HEART Score Troponin: Troponin T 2.980 ng/mL (0.00-0.029) H* 04/19/22 07:11 Results - Labs CBC & Chem 7: 04/20/22 04:12 04/20/22 04:12 Labs: Laboratory Last Values WBC 12.2 K/mm3 (4.5-11.0) H 04/20/22 04:12 RBC 4.00 M/mm3 (3.65-5.03) 04/20/22 04:12 Hgb 11.6 gm/dl (11.8-15.2) L 04/20/22 04:12 Hct 35.3 % (35.5-45.6) L 04/20/22 04:12 MCV 88 fl (84-94) 04/20/22 04:12 MCH 29 pg (28-32) 04/20/22 04:12 MCHC 33 % (32-34) 04/20/22 04:12 RDW 14.5 % (13.2-15.2) 04/20/22 04:12 Plt Count 146 K/mm3 (140-440) 04/20/22 04:12 Lymph % (Auto) 23.0 % (13.4-35.0) 04/17/22 19:58 Wake % (Auto) 3.2 % (0.0-7.3) 04/18/22 Unknown Eos % (Auto) 0.1 % (0.0-4.3) 04/18/22 Unknown Baso % (Auto) 0.6 % (0.0-1.8) 04/17/22 19:58 Lymph # (Auto) 2.7 K/mm3 (1.2-5.4) 04/17/22 19:58 Wake # (Auto) 0.3 K/mm3 (0.0-0.8) 04/18/22 Unknown Eos # (Auto) 0.0 K/mm3 (0.0-0.4) 04/18/22 Unknown Baso # (Auto) 0.1 K/mm3 (0.0-0.1) 04/18/22 Unknown Add Manual Diff Complete 04/18/22 Unknown Total Counted 100 04/18/22 Unknown Seg Neutrophils % [employer] 04/18/22 Unknown Seg Neuts % (Manual) 81.0 % (40.0-70.0) H 04/18/22 Unknown Band Neutrophils % 3.0 % 04/18/22 Unknown Lymphocytes % (Manual) 12.0 % (13.4-35.0) L 04/18/22 Unknown Reactive Lymphs % (Man) 0 % 04/18/22 Unknown Monocytes % (Manual) 2.0 % (0.0-7.3) 04/18/22 Unknown Eosinophils % (Manual) 0 % (0.0-4.3) 04/18/22 Unknown Basophils % (Manual) 0 % (0.0-1.8) 04/18/22 Unknown Metamyelocytes % 2.0 % 04/18/22 Unknown Myelocytes % 0 % 04/18/22 Unknown Promyelocytes % 0 % 04/18/22 Unknown Blast Cells % 0 % 04/18/22 Unknown Nucleated RBC % Not Reportable 04/18/22 Unknown Seg Neutrophils # 9.8 K/mm3 (1.8-7.7) H 04/18/22 Unknown Seg Neutrophils # Man 8.7 K/mm3 (1.8-7.7) H 04/18/22 Unknown Band Neutrophils # 0.3 K/mm3 04/18/22 Unknown Lymphocytes # (Manual) 1.3 K/mm3 (1.2-5.4) 04/18/22 Unknown Abs React Lymphs (Man) 0.0 K/mm3 04/18/22 Unknown Monocytes # (Manual) 0.2 K/mm3 (0.0-0.8) 04/18/22 Unknown Eosinophils # (Manual) 0.0 K/mm3 (0.0-0.4) 04/18/22 Unknown Basophils # (Manual) 0.0 K/mm3 (0.0-0.1) 04/18/22 Unknown Metamyelocytes # 0.2 K/mm3 04/18/22 Unknown Myelocytes # 0.0 K/mm3 04/18/22 Unknown Promyelocytes # 0.0 K/mm3 04/18/22 Unknown Blast Cells # 0.0 K/mm3 04/18/22 Unknown WBC Morphology Not Reportable 04/18/22 Unknown Hypersegmented Neuts Not Reportable 04/18/22 Unknown Hyposegmented Neuts Not Reportable 04/18/22 Unknown Hypogranular Neuts Not Reportable 04/18/22 Unknown Smudge Cells Not Reportable 04/18/22 Unknown Toxic Granulation 2+ 04/18/22 Unknown Toxic Vacuolation Not Reportable 04/18/22 Unknown Dohle Bodies Not Reportable 04/18/22 Unknown Pelger-Huet Anomaly Not Reportable 04/18/22 Unknown Regla Rods Not Reportable 04/18/22 Unknown Platelet Estimate Consistent w auto 04/18/22 Unknown Clumped Platelets Not Reportable 04/18/22 Unknown Plt Clumps, EDTA Not Reportable 04/18/22 Unknown Large Platelets Not Reportable 04/18/22 Unknown Giant Platelets Not Reportable 04/18/22 Unknown Platelet Satelliting Not Reportable 04/18/22 Unknown Plt Morphology Comment Not Reportable 04/18/22 Unknown RBC Morphology Not Reportable 04/18/22 Unknown Dimorphic RBCs Not Reportable 04/18/22 Unknown Polychromasia Not Reportable 04/18/22 Unknown Hypochromasia Not Reportable 04/18/22 Unknown Poikilocytosis Not Reportable 04/18/22 Unknown Anisocytosis Not Reportable 04/18/22 Unknown Microcytosis Not Reportable 04/18/22 Unknown Macrocytosis Not Reportable 04/18/22 Unknown Spherocytes Not Reportable 04/18/22 Unknown Pappenheimer Bodies Not Reportable 04/18/22 Unknown Sickle Cells Not Reportable 04/18/22 Unknown Target Cells Not Reportable 04/18/22 Unknown Tear Drop Cells Not Reportable 04/18/22 Unknown Ovalocytes Not Reportable 04/18/22 Unknown Helmet Cells Not Reportable 04/18/22 Unknown [place] Bodies Not Reportable 04/18/22 Unknown [place] Rings Not Reportable 04/18/22 Unknown Meggan Cells Not Reportable 04/18/22 Unknown Bite Cells Not Reportable 04/18/22 Unknown Crenated Cell Not Reportable 04/18/22 Unknown Elliptocytes Not Reportable 04/18/22 Unknown Acanthocytes (Spur) Not Reportable 04/18/22 Unknown Rouleaux Not Reportable 04/18/22 Unknown Hemoglobin C Crystals Not Reportable 04/18/22 Unknown Schistocytes Not Reportable 04/18/22 Unknown Malaria parasites Not Reportable 04/18/22 Unknown [place] Bodies Not Reportable 04/18/22 Unknown Hem Pathologist Commnt No 04/18/22 Unknown PT 15.6 Sec. (12.2-14.9) H 04/18/22 Unknown INR 1.08 (0.87-1.13) 04/18/22 Unknown APTT 28.6 Sec. (24.2-36.6) 04/18/22 Unknown Heparin Anti-Xa Level 0.15 U.I./ml (0.3-0.7) L 04/20/22 04:12 ABG pH 7.512 pH Units (7.350-7.450) H 04/20/22 09:31 ABG pCO2 33.4 mm Hg 04/20/22 09:31 ABG pO2 86.1 mm Hg (80.0-90.0) 04/20/22 09:31 ABG HCO3 26.2 mmol/L (20.0-26.0) H 04/20/22 09:31 ABG O2 Saturation 97.3 % (95.0-99.0) 04/20/22 09:31 ABG O2 Content 12.3 (0.0-44) 04/20/22 09:31 ABG Base Excess 3.2 mmol/L (-2.0-3.0) H 04/20/22 09:31 ABG Hemoglobin 9.0 gm/dl (14.0-18.0) L 04/20/22 09:31 ABG Carboxyhemoglobin 1.4 % (0.0-5.0) 04/20/22 09:31 ABG Methemoglobin 0.5 % (0.0-1.5) 04/20/22 09:31 Oxyhemoglobin 95.5 % (95.0-99.0) 04/20/22 09:31 FiO2 45 % 04/20/22 09:31 Sodium 133 mmol/L (137-145) L 04/20/22 04:12 Potassium 3.5 mmol/L (3.6-5.0) L 04/20/22 04:12 Chloride 91.9 mmol/L (98-107) L 04/20/22 04:12 Carbon Dioxide 25 mmol/L (22-30) 04/20/22 04:12 Anion Gap 20 mmol/L 04/20/22 04:12 BUN 44 mg/dL (9-20) H 04/20/22 04:12 Creatinine 4.6 mg/dL (0.8-1.3) H 04/20/22 04:12 Estimated GFR 16 ml/min 04/20/22 04:12 BUN/Creatinine Ratio 10 % 04/20/22 04:12 Glucose 263 mg/dL (75-100) H 04/20/22 04:12 POC Glucose 285 mg/dL (70-105) H 04/20/22 11:18 Lactic Acid 2.80 mmol/L (0.7-2.0) H* 04/20/22 04:12 Calcium 7.2 mg/dL (8.4-10.2) L 04/20/22 04:12 Phosphorus 4.10 mg/dL (2.5-4.5) 04/20/22 04:12 Magnesium 2.30 mg/dL (1.7-2.3) 04/20/22 04:12 Total Bilirubin 1.00 mg/dL (0.1-1.2) 04/20/22 04:12 AST 553 units/L (5-40) H 04/20/22 04:12 ALT 471 units/L (7-56) H 04/20/22 04:12 Alkaline Phosphatase 87 units/L (35-129) 04/20/22 04:12 Total Creatine Kinase 3019 units/L (55-170) H 04/20/22 04:12 CK-MB (CK-2) 28.5 ng/mL (0.0-4.0) H 04/19/22 07:11 CK-MB (CK-2) Rel Index 0.8 (0-4) 04/19/22 07:11 Troponin T 2.980 ng/mL (0.00-0.029) H* 04/19/22 07:11 Total Protein 5.7 g/dL (6.3-8.2) L 04/20/22 04:12 Albumin 2.4 g/dL (3.9-5) L 04/20/22 04:12 Albumin/Globulin Ratio 0.7 % 04/20/22 04:12 Triglycerides 254 mg/dL (2-149) H 04/20/22 09:10 Cholesterol 106 mg/dL (50-199) 04/17/22 19:56 LDL Cholesterol Direct 57 mg/dL (50-130) 04/17/22 19:56 HDL Cholesterol 40 mg/dL (40-59) 04/17/22 19:56 Cholesterol/HDL Ratio 2.65 % 04/17/22 19:56 Procalcitonin > 200.00 ng/mL (<0.15) 04/19/22 07:17 Urine Color Yellow (Yellow) 04/19/22 02:08 Urine Turbidity Slightly cloudy (Clear) 04/19/22 02:08 Urine pH 5.0 (5.0-7.0) 04/19/22 02:08 Ur Specific Secor 1.005 (1.003-1.030) 04/19/22 02:08 Urine Protein 30 mg/dl mg/dL (Negative) 04/19/22 02:08 Urine Glucose (UA) Negative mg/dL (Negative) 04/19/22 02:08 Urine Ketones Negative mg/dL (Negative) 04/19/22 02:08 Urine Blood Large (Negative) A 04/19/22 02:08 Urine Nitrite Negative (Negative) 04/19/22 02:08 Ur Reducing Substances Not Reportable 04/19/22 02:08 Urine Bilirubin Negative (Negative) 04/19/22 02:08 Urine Ictotest Not Reportable 04/19/22 02:08 Urine Urobilinogen 0.2 mg/dL (<2.0) 04/19/22 02:08 Ur Leukocyte Esterase Negative (Negative) 04/19/22 02:08 Urine WBC (Auto) 88.0 /HPF (0.0-6.0) H 04/19/22 02:08 Urine RBC (Auto) 60.0 /HPF (0.0-6.0) 04/19/22 02:08 Urine Bacteria (Auto) 2+ /HPF (Negative) 04/19/22 02:08 Urine WBC Clumps 3+ /HPF 04/19/22 02:08 RBC Casts 34 /LPF 04/19/22 02:08 Urine Mucus 1+ /HPF 04/19/22 02:08 Urine Yeast (Budding) 3+ /HPF 04/19/22 02:08 Urine Eosinophils None seen (None Seen) 04/19/22 02:08 Urine Creatinine 90.9 mg/dL (0.1-20.0) H 04/19/22 02:08 Urine Sodium 54 mmol/L 04/19/22 02:08 Blood Type A POSITIVE 04/17/22 19:58 Antibody Screen Negative 04/17/22 19:58 Microbiology: Microbiology 04/18/22 08:57 Urine,Clean Catch Urine Culture - Final NO GROWTH AFTER 48 HOURS 04/17/22 21:42 Peripheral/Venous Blood Culture - Preliminary NO GROWTH AFTER 48 HOURS 04/17/22 21:42 Peripheral/Venous Blood Culture - Preliminary NO GROWTH AFTER 48 HOURS 04/17/22 21:45 Tracheal Aspirate Sputum Culture - Preliminary [place]/IV: Voiding Method Indwelling Catheter Active Medications - Current Medications Current Medications: Generic Name Dose Route Start Last Admin Trade Name Freq PRN Reason Stop Dose Admin Acetaminophen 650 mg 04/17/22 19:48 04/19/22 17:25 Acetaminophen 325 Mg Tab PO 650 mg Q6H PRN Administration Pain MILD(1-3)/Fever >100.5/CHE Albuterol 2.5 mg 04/17/22 19:48 Albuterol 2.5 Mg/3 Ml Nebu IH Q3HRT PRN Shortness Of Breath Aspirin 81 mg 04/20/22 12:00 04/20/22 12:27 Aspirin 81 Mg Tab Chew FEEDTUBE 81 mg QDAY FLACO Administration Atorvastatin Calcium 20 mg 04/20/22 22:00 Atorvastatin 20 Mg Tab FEEDTUBE QHS FLACO Dextrose 0 ml 04/17/22 23:46 Dextrose 50% In Water (25gm) 50 Ml Syringe IV Q30MIN PRN Hypoglycemia Protocol Famotidine 20 mg 04/20/22 10:00 04/20/22 09:06 Famotidine 20 Mg Tab FEEDTUBE 20 mg DAILY FLACO Administration Fentanyl 50 mcg 04/17/22 20:22 04/18/22 03:52 Fentanyl 100 Mcg/2 Ml Inj IV 50 mcg Q10MIN PRN Administration ANALGESIA Hydralazine HCl 10 mg 04/20/22 14:00 04/20/22 14:12 Hydralazine 10 Mg Tab FEEDTUBE 10 mg Q8HR FLACO Administration Hydrophilic Ointment 1 applic 04/18/22 06:02 Lip Therapy Vaseline TP Q2HR PRN Dry Lips Amiodarone HCl 900 mg/ 500 mls @ 33.333 mls/hr 04/17/22 20:00 04/20/22 12:31 Dextrose IV 1 mg/min DIRECT FLACO 33.333 mls/hr Titration Protocol 1 MG/MIN NORepinephrine/NS 8 MG-250 ML 8 mg in 250 mls @ 3.75 mls/hr 04/17/22 21:00 04/20/22 12:31 Norepinephrine/Ns 8 Mg-250 Ml (Double Conc) IV 0 mcg/min TITRATE FLACO 0 mls/hr Titration Protocol 2 MCG/MIN Fentanyl Citrate 2,000 mcg in 100 mls @ 5.443 mls/hr 04/17/22 21:00 04/20/22 12:31 Fentanyl Drip Premix IV 3 mcg/kg/hr TITR FLACO 16.329 mls/hr Titration Protocol 1 MCG/KG/HR Vasopressin 20 unit/ Sodium 101 mls @ 9.09 mls/hr 04/17/22 23:45 04/20/22 12:31 Chloride IV 0 units/min TITR FLACO 0 mls/hr Titration Protocol 0.03 UNITS/MIN Heparin Sodium/Sodium Chloride 25,000 unit in 500 mls @ 20 mls/hr 04/18/22 06:00 04/20/22 14:12 Heparin/ 0.45% Nacl-25,000 Unit/500 Ml IV 1,400 units/hr TITRATE FLACO 28 mls/hr Administration Protocol 1,000 UNITS/HR Propofol 1,000 mg in 100 mls @ 3.456 mls/hr 04/18/22 07:00 04/20/22 14:13 Diprivan 10 Mg/Ml IV 25 mcg/kg/min TITR FLACO 17.28 mls/hr Titration Protocol 5 MCG/KG/MIN Phenylephrine HCl 100 mg/ 100 mls @ 3 mls/hr 04/18/22 07:30 Sodium Chloride IV TITR FLACO Protocol 50 MCG/MIN Dopamine HCl/Dextrose 800 mg in 250 mls @ 4.32 mls/hr 04/19/22 02:00 04/20/22 12:31 Dopamine 800 Mg/D5w 250ml IV 0 mcg/kg/min TITR FLACO 0 mls/hr Titration Protocol 2 MCG/KG/MIN Levofloxacin/Dextrose 500 mg in 100 mls @ 100 mls/hr 04/20/22 22:00 Levaquin 500mg/100ml IV Q48H FLACO Protocol Sodium Chloride 1,000 mls @ 50 mls/hr 04/20/22 11:00 04/20/22 12:27 Nacl 0.9% 1000 Ml IV 04/21/22 10:59 100 mls/hr DIRECT FLACO Administration Insulin Glargine 20 units 04/19/22 22:00 04/19/22 21:20 Insulin Glargine 100 Units/Ml SUB-Q 20 units QHS FLACO Administration Insulin Human Lispro 0 unit 04/18/22 00:00 04/20/22 12:26 Insulin Lispro 100 Unit/Ml SUB-Q 6 unit Q6HR FLAOC Administration Protocol Isosorbide Dinitrate 5 mg 04/20/22 14:00 04/20/22 14:12 Isosorbide Dinitrate 10 Mg Tab PO 5 mg Q8HR FLACO Administration Metoprolol Tartrate 12.5 mg 04/20/22 12:00 04/20/22 12:28 Metoprolol Tartrate 25 Mg Tab FEEDTUBE 12.5 mg Q8H FLACO Administration Multi-Ingred Cream/Lotion/Oil/Oint 1 applic 04/18/22 06:02 Mineral Oil/Petrolatum, White Ophth Oint 3.5 Gm OU Q4HR PRN Dry Eye(s) Oxycodone/Acetaminophen 1 tab 04/17/22 19:48 Oxycodone /Acetaminophen 5-325mg Tab PO Q16H PRN Pain, Moderate (4-6) Senna/Docusate Sodium 1 tab 04/18/22 10:00 04/20/22 09:06 Sennosides/Docusate Sodium 8.6/50 Mg Tab FEEDTUBE 1 tab BID FLACO Administration Sodium Chloride 10 ml 04/17/22 22:00 04/20/22 09:06 Sodium Chloride 0.9% 10 Ml Flush Syringe IV 10 ml BID FLACO Administration Sodium Chloride 10 ml 04/17/22 19:48 Sodium Chloride 0.9% 10 Ml Flush Syringe IV PRN PRN LINE FLUSH Nutrition/Malnutrition Assess - Dietary Evaluation Nutrition/Malnutrition Findings: Nutrition Notes Start: 04/18/22 08:52 Freq: Status: Active Protocol: Document 04/20/22 12:22 ROMELAI (Rec: 04/20/22 13:18 ROMELIA [id number]) Nutrition Notes Initial or Follow up Reassessment Current Diagnosis Acute Kidney Injury,Diabetes, Sepsis,Hypertension, Respiratory Failure Other Pertinent Diagnosis s/p PEA w/ROSC, HFrEF, Pneumonia, Metabolic Acidosis, Cardiogenic Shock, .. Current Diet Glucerna @ 65 ml/hr (04/18)TF- Nepro w/CARBSTEADY @ 35 ml/hr (from D 04/20). Labs/Tests 04/20: Na 133, K 3.5, Cl 91.9, BUN 44, Crea 4.6, Glu 236, Ca 7.2. Pertinent Medications 04/20: Lantus 20U, Humalog 6U, Propofol @ 20.736ml/hr (547 Kcal), Vasopressin 20U, others nutritionally unremarkable. Height 5 ft 9 in Weight 115.2 kg [place] Body Weight (kg) 72.72 BMI 37.5 Intake Prior to Admission Good Weight change and time frame Pt deniues having loss body weight [employer]. No body weight change reported in 2 days. Weight Status Obese Subjective/Other Information RD consult for TF tolerance/ continuation assessment. TF continues as prescribed, no further information available at the time. I will change TF formula due to worsening of Pt's VINCENT condition. Pt continues on Mechanical Ventilation, O2 saturation @ 98%, according to Physical Assessment History notes. Percent of energy/protein needs met: New prescribed TF-Nepro w/ CARBSTEADY @ 35 ml/hr provides for energy/protein needs (1, 500 Kcal/68 g) during LOS, 77% Kcal; 90% AA. Including 547 Kcal from Propofol: 105% Kcal; 90% AA. Burn Absent Trauma Absent GI Symptoms None Food Allergy No Skin Integrity/Comment Assessment WNL. Current % PO Other Minimum of two criteria No Fluid Accumulation N/A Reduced Rn Surgical Strength N/A (non-severe) Protein-Calorie Malnutrition N\A #2 Nutrition Diagnosis Altered nutrition-related laboratory values Etiology VINCENT. As Evidenced by Signs and Symptoms 04/20: Na 133, K 3.5, Cl 91.9, BUN 44, Crea 4.6, Glu 236, Ca 7.2. #1 Nutrition Diagnosis Inadequate oral intake Comments: Pt continues on Mechanical Ventilation, O2 saturation @ 98%, according to Physical Assessment History notes. Diagnosis Progress(for reassessment Continues documentation) Is patient on ventilator? Yes Is Patient Ambulatory and/or Out of Bed No REE-([facility]-confined to bed) 2323.608 Kcal/Kg value to use for calculation 17 Approximate Energy Requirements Using 1958 kcal/Kg Calculation Used for Recommendations Kcal/kg Additional Notes Protein: 0.8-1.2 g/Kg AdjBW; 75-113 g/day. Fluids: 1 ml/Kcal, or as per MD. Nutrition Intervention Nutrition Support: Change formula to TF-Nepro w/ CARBSTEADY @ 35 ml/hr. Flush: 220 ml water Q 4 hr, or as per MD. Kcal 1,500 Protein (gm) 68 Carbohydrates (gm) 134 Fat (gm) 80 Fluid (mL) 606 Fiber (gm) 11 % RDI: 77% Kcal; 90% AA. Goal #1 Provide at least 75% of energy /protein needs through Enteral Feeding during LOS. Follow-Up By: 04/22/22 Additional Comments Continue monitoring TF tolerance, ventilation status, vasopressors, and BM. <GABRIELE HUFF - Last Filed: 04/21/22 11:48> Assessment and Plan Assessment and plan: I saw and evaluated the patient. I agree with the findings and the plan of care as documented in the Nurse Practitioner's~note, with the following corrections and additions. Hospitalist Physical - Constitutional Vitals: Temp Pulse Resp BP Pulse Ox 98 F 74 16 97/63 95 04/21/22 08:00 04/21/22 10:00 04/21/22 10:00 04/21/22 10:00 04/21/22 11:16 HEART Score - HEART Score Troponin: Troponin T 2.980 ng/mL (0.00-0.029) H* 04/19/22 07:11 Results - Labs CBC & Chem 7: 04/21/22 04:30 04/21/22 04:30 Labs: Laboratory Last Values WBC 17.9 K/mm3 (4.5-11.0) H 04/21/22 04:30 RBC 3.95 M/mm3 (3.65-5.03) 04/21/22 04:30 Hgb 11.7 gm/dl (11.8-15.2) L 04/21/22 04:30 Hct 35.1 % (35.5-45.6) L 04/21/22 04:30 MCV 89 fl (84-94) 04/21/22 04:30 MCH 30 pg (28-32) 04/21/22 04:30 MCHC 33 % (32-34) 04/21/22 04:30 RDW 15.2 % (13.2-15.2) 04/21/22 04:30 Plt Count 149 K/mm3 (140-440) 04/21/22 04:30 Lymph % (Auto) 23.0 % (13.4-35.0) 04/17/22 19:58 Wake % (Auto) 3.2 % (0.0-7.3) 04/18/22 Unknown Eos % (Auto) 0.1 % (0.0-4.3) 04/18/22 Unknown Baso % (Auto) 0.6 % (0.0-1.8) 04/17/22 19:58 Lymph # (Auto) 2.7 K/mm3 (1.2-5.4) 04/17/22 19:58 Wake # (Auto) 0.3 K/mm3 (0.0-0.8) 04/18/22 Unknown Eos # (Auto) 0.0 K/mm3 (0.0-0.4) 04/18/22 Unknown Baso # (Auto) 0.1 K/mm3 (0.0-0.1) 04/18/22 Unknown Add Manual Diff Complete 04/18/22 Unknown Total Counted 100 04/18/22 Unknown Seg Neutrophils % [employer] 04/18/22 Unknown Seg Neuts % (Manual) 81.0 % (40.0-70.0) H 04/18/22 Unknown Band Neutrophils % 3.0 % 04/18/22 Unknown Lymphocytes % (Manual) 12.0 % (13.4-35.0) L 04/18/22 Unknown Reactive Lymphs % (Man) 0 % 04/18/22 Unknown Monocytes % (Manual) 2.0 % (0.0-7.3) 04/18/22 Unknown Eosinophils % (Manual) 0 % (0.0-4.3) 04/18/22 Unknown Basophils % (Manual) 0 % (0.0-1.8) 04/18/22 Unknown Metamyelocytes % 2.0 % 04/18/22 Unknown Myelocytes % 0 % 04/18/22 Unknown Promyelocytes % 0 % 04/18/22 Unknown Blast Cells % 0 % 04/18/22 Unknown Nucleated RBC % Not Reportable 04/18/22 Unknown Seg Neutrophils # 9.8 K/mm3 (1.8-7.7) H 04/18/22 Unknown Seg Neutrophils # Man 8.7 K/mm3 (1.8-7.7) H 04/18/22 Unknown Band Neutrophils # 0.3 K/mm3 04/18/22 Unknown Lymphocytes # (Manual) 1.3 K/mm3 (1.2-5.4) 04/18/22 Unknown Abs React Lymphs (Man) 0.0 K/mm3 04/18/22 Unknown Monocytes # (Manual) 0.2 K/mm3 (0.0-0.8) 04/18/22 Unknown Eosinophils # (Manual) 0.0 K/mm3 (0.0-0.4) 04/18/22 Unknown Basophils # (Manual) 0.0 K/mm3 (0.0-0.1) 04/18/22 Unknown Metamyelocytes # 0.2 K/mm3 04/18/22 Unknown Myelocytes # 0.0 K/mm3 04/18/22 Unknown Promyelocytes # 0.0 K/mm3 04/18/22 Unknown Blast Cells # 0.0 K/mm3 04/18/22 Unknown WBC Morphology Not Reportable 04/18/22 Unknown Hypersegmented Neuts Not Reportable 04/18/22 Unknown Hyposegmented Neuts Not Reportable 04/18/22 Unknown Hypogranular Neuts Not Reportable 04/18/22 Unknown Smudge Cells Not Reportable 04/18/22 Unknown Toxic Granulation 2+ 04/18/22 Unknown Toxic Vacuolation Not Reportable 04/18/22 Unknown Dohle Bodies Not Reportable 04/18/22 Unknown Pelger-Huet Anomaly Not Reportable 04/18/22 Unknown Regla Rods Not Reportable 04/18/22 Unknown Platelet Estimate Consistent w auto 04/18/22 Unknown Clumped Platelets Not Reportable 04/18/22 Unknown Plt Clumps, EDTA Not Reportable 04/18/22 Unknown Large Platelets Not Reportable 04/18/22 Unknown Giant Platelets Not Reportable 04/18/22 Unknown Platelet Satelliting Not Reportable 04/18/22 Unknown Plt Morphology Comment Not Reportable 04/18/22 Unknown RBC Morphology Not Reportable 04/18/22 Unknown Dimorphic RBCs Not Reportable 04/18/22 Unknown Polychromasia Not Reportable 04/18/22 Unknown Hypochromasia Not Reportable 04/18/22 Unknown Poikilocytosis Not Reportable 04/18/22 Unknown Anisocytosis Not Reportable 04/18/22 Unknown Microcytosis Not Reportable 04/18/22 Unknown Macrocytosis Not Reportable 04/18/22 Unknown Spherocytes Not Reportable 04/18/22 Unknown Pappenheimer Bodies Not Reportable 04/18/22 Unknown Sickle Cells Not Reportable 04/18/22 Unknown Target Cells Not Reportable 04/18/22 Unknown Tear Drop Cells Not Reportable 04/18/22 Unknown Ovalocytes Not Reportable 04/18/22 Unknown Helmet Cells Not Reportable 04/18/22 Unknown [place] Bodies Not Reportable 04/18/22 Unknown [place] Rings Not Reportable 04/18/22 Unknown [place] Cells Not Reportable 04/18/22 Unknown Bite Cells Not Reportable 04/18/22 Unknown Crenated Cell Not Reportable 04/18/22 Unknown Elliptocytes Not Reportable 04/18/22 Unknown Acanthocytes (Spur) Not Reportable 04/18/22 Unknown Rouleaux Not Reportable 04/18/22 Unknown Hemoglobin C Crystals Not Reportable 04/18/22 Unknown Schistocytes Not Reportable 04/18/22 Unknown Malaria parasites Not Reportable 04/18/22 Unknown [place] Bodies Not Reportable 04/18/22 Unknown Hem Pathologist Commnt No 04/18/22 Unknown PT 15.6 Sec. (12.2-14.9) H 04/18/22 Unknown INR 1.08 (0.87-1.13) 04/18/22 Unknown APTT 28.6 Sec. (24.2-36.6) 04/18/22 Unknown Heparin Anti-Xa Level 0.16 U.I./ml (0.3-0.7) L 04/21/22 04:00 ABG pH 7.350 pH Units (7.350-7.450) 04/20/22 21:40 ABG pCO2 55.0 mm Hg 04/20/22 21:40 ABG pO2 59.4 mm Hg (80.0-90.0) L 04/20/22 21:40 ABG HCO3 29.7 mmol/L (20.0-26.0) H 04/20/22 21:40 ABG O2 Saturation 90.1 % (95.0-99.0) L 04/20/22 21:40 ABG O2 Content 14.4 (0.0-44) 04/20/22 21:40 ABG Base Excess 3.1 mmol/L (-2.0-3.0) H 04/20/22 21:40 ABG Hemoglobin 11.6 gm/dl (14.0-18.0) L 04/20/22 21:40 ABG Carboxyhemoglobin 1.6 % (0.0-5.0) 04/20/22 21:40 ABG Methemoglobin 0.5 % (0.0-1.5) 04/20/22 21:40 Oxyhemoglobin 88.2 % (95.0-99.0) L 04/20/22 21:40 FiO2 50 % 04/20/22 21:40 Sodium 137 mmol/L (137-145) 04/21/22 04:30 Potassium 4.0 mmol/L (3.6-5.0) 04/21/22 04:30 Chloride 95.7 mmol/L (98-107) L 04/21/22 04:30 Carbon Dioxide 27 mmol/L (22-30) 04/21/22 04:30 Anion Gap 18 mmol/L 04/21/22 04:30 BUN 45 mg/dL (9-20) H 04/21/22 04:30 Creatinine 4.2 mg/dL (0.8-1.3) H 04/21/22 04:30 Estimated GFR 17 ml/min 04/21/22 04:30 BUN/Creatinine Ratio 11 % 04/21/22 04:30 Glucose 309 mg/dL (75-100) H 04/21/22 04:30 POC Glucose 265 mg/dL (70-105) H 04/21/22 05:57 Lactic Acid 1.90 mmol/L (0.7-2.0) 04/21/22 04:20 Calcium 7.4 mg/dL (8.4-10.2) L 04/21/22 04:30 Phosphorus 5.60 mg/dL (2.5-4.5) H D 04/21/22 04:30 Magnesium 2.50 mg/dL (1.7-2.3) H 04/21/22 04:30 Total Bilirubin 0.80 mg/dL (0.1-1.2) 04/21/22 04:30 AST 217 units/L (5-40) H 04/21/22 04:30 ALT 376 units/L (7-56) H 04/21/22 04:30 Alkaline Phosphatase 114 units/L (35-129) 04/21/22 04:30 Total Creatine Kinase 3019 units/L (55-170) H 04/20/22 04:12 CK-MB (CK-2) 28.5 ng/mL (0.0-4.0) H 04/19/22 07:11 CK-MB (CK-2) Rel Index 0.8 (0-4) 04/19/22 07:11 Troponin T 2.980 ng/mL (0.00-0.029) H* 04/19/22 07:11 Total Protein 6.4 g/dL (6.3-8.2) 04/21/22 04:30 Albumin 2.8 g/dL (3.9-5) L 04/21/22 04:30 Albumin/Globulin Ratio 0.8 % 04/21/22 04:30 Triglycerides 254 mg/dL (2-149) H 04/20/22 09:10 Cholesterol 106 mg/dL (50-199) 04/17/22 19:56 LDL Cholesterol Direct 57 mg/dL (50-130) 04/17/22 19:56 HDL Cholesterol 40 mg/dL (40-59) 04/17/22 19:56 Cholesterol/HDL Ratio 2.65 % 04/17/22 19:56 Procalcitonin > 200.00 ng/mL (<0.15) 04/19/22 07:17 Urine Color Yellow (Yellow) 04/19/22 02:08 Urine Turbidity Slightly cloudy (Clear) 04/19/22 02:08 Urine pH 5.0 (5.0-7.0) 04/19/22 02:08 Ur Specific Secor 1.005 (1.003-1.030) 04/19/22 02:08 Urine Protein 30 mg/dl mg/dL (Negative) 04/19/22 02:08 Urine Glucose (UA) Negative mg/dL (Negative) 04/19/22 02:08 Urine Ketones Negative mg/dL (Negative) 04/19/22 02:08 Urine Blood Large (Negative) A 04/19/22 02:08 Urine Nitrite Negative (Negative) 04/19/22 02:08 Ur Reducing Substances Not Reportable 04/19/22 02:08 Urine Bilirubin Negative (Negative) 04/19/22 02:08 Urine Ictotest Not Reportable 04/19/22 02:08 Urine Urobilinogen 0.2 mg/dL (<2.0) 04/19/22 02:08 Ur Leukocyte Esterase Negative (Negative) 04/19/22 02:08 Urine WBC (Auto) 88.0 /HPF (0.0-6.0) H 04/19/22 02:08 Urine RBC (Auto) 60.0 /HPF (0.0-6.0) 04/19/22 02:08 Urine Bacteria (Auto) 2+ /HPF (Negative) 04/19/22 02:08 Urine WBC Clumps 3+ /HPF 04/19/22 02:08 RBC Casts 34 /LPF 04/19/22 02:08 Urine Mucus 1+ /HPF 04/19/22 02:08 Urine Yeast (Budding) 3+ /HPF 04/19/22 02:08 Urine Eosinophils None seen (None Seen) 04/19/22 02:08 Urine Creatinine 90.9 mg/dL (0.1-20.0) H 04/19/22 02:08 Urine Sodium 54 mmol/L 04/19/22 02:08 Blood Type A POSITIVE 04/21/22 04:37 Antibody Screen Negative 04/21/22 04:37 Microbiology: Microbiology 04/17/22 21:42 Peripheral/Venous Blood Culture - Preliminary NO GROWTH AFTER 72 HOURS 04/17/22 21:42 Peripheral/Venous Blood Culture - Preliminary NO GROWTH AFTER 72 HOURS 04/18/22 08:57 Urine,Clean Catch Urine Culture - Final NO GROWTH AFTER 48 HOURS [place]/IV: Voiding Method Indwelling Catheter Active Medications - Current Medications Current Medications: Generic Name Dose Route Start Last Admin Trade Name Freq PRN Reason Stop Dose Admin Acetaminophen 650 mg 04/17/22 19:48 04/19/22 17:25 Acetaminophen 325 Mg Tab PO 650 mg Q6H PRN Administration Pain MILD(1-3)/Fever >100.5/CHE Albuterol 2.5 mg 04/17/22 19:48 Albuterol 2.5 Mg/3 Ml Nebu IH Q3HRT PRN Shortness Of Breath Aspirin 81 mg 04/20/22 12:00 04/21/22 09:13 Aspirin 81 Mg Tab Chew FEEDTUBE 81 mg QDAY FLACO Administration Atorvastatin Calcium 20 mg 04/20/22 22:00 04/20/22 21:00 Atorvastatin 20 Mg Tab FEEDTUBE 20 mg QHS FLACO Administration Dextrose 0 ml 04/17/22 23:46 Dextrose 50% In Water (25gm) 50 Ml Syringe IV Q30MIN PRN Hypoglycemia Protocol Famotidine 20 mg 04/20/22 10:00 04/21/22 09:13 Famotidine 20 Mg Tab FEEDTUBE 20 mg DAILY FLACO Administration Fentanyl 50 mcg 04/17/22 20:22 04/18/22 03:52 Fentanyl 100 Mcg/2 Ml Inj IV 50 mcg Q10MIN PRN Administration ANALGESIA Hydralazine HCl 10 mg 04/20/22 14:00 04/21/22 05:38 Hydralazine 10 Mg Tab FEEDTUBE Not Given Q8HR FLACO Hydrophilic Ointment 1 applic 04/18/22 06:02 Lip Therapy Vaseline TP Q2HR PRN Dry Lips Amiodarone HCl 900 mg/ 500 mls @ 33.333 mls/hr 04/17/22 20:00 04/20/22 21:22 Dextrose IV 0.5 mg/min DIRECT FLACO 16.667 mls/hr Titration Protocol 1 MG/MIN NORepinephrine/NS 8 MG-250 ML 8 mg in 250 mls @ 3.75 mls/hr 04/17/22 21:00 04/20/22 21:22 Norepinephrine/Ns 8 Mg-250 Ml (Double Conc) IV 0 mcg/min TITRATE FLACO 0 mls/hr Titration Protocol 2 MCG/MIN Fentanyl Citrate 2,000 mcg in 100 mls @ 5.443 mls/hr 04/17/22 21:00 04/21/22 07:47 Fentanyl Drip Premix IV 2 mcg/kg/hr TITR FLACO 10.886 mls/hr Administration Protocol 1 MCG/KG/HR Vasopressin 20 unit/ Sodium 101 mls @ 9.09 mls/hr 04/17/22 23:45 04/20/22 21:22 Chloride IV 0 units/min TITR FLACO 0 mls/hr Titration Protocol 0.03 UNITS/MIN Heparin Sodium/Sodium Chloride 25,000 unit in 500 mls @ 20 mls/hr 04/18/22 06:00 04/21/22 07:48 Heparin/ 0.45% Nacl-25,000 Unit/500 Ml IV 1,400 units/hr TITRATE FLACO 28 mls/hr Administration Protocol 1,000 UNITS/HR Propofol 1,000 mg in 100 mls @ 3.456 mls/hr 04/18/22 07:00 04/21/22 07:53 Diprivan 10 Mg/Ml IV 25 mcg/kg/min TITR FLACO 17.28 mls/hr Titration Protocol 5 MCG/KG/MIN Phenylephrine HCl 100 mg/ 100 mls @ 3 mls/hr 04/18/22 07:30 Sodium Chloride IV TITR FLACO Protocol 50 MCG/MIN Dopamine HCl/Dextrose 800 mg in 250 mls @ 4.32 mls/hr 04/19/22 02:00 04/20/22 21:22 Dopamine 800 Mg/D5w 250ml IV 0 mcg/kg/min TITR FLACO 0 mls/hr Titration Protocol 2 MCG/KG/MIN Levofloxacin/Dextrose 500 mg in 100 mls @ 100 mls/hr 04/20/22 22:00 04/20/22 22:00 Levaquin 500mg/100ml IV 04/25/22 21:59 Infused Q48H [facility] Infusion Protocol Insulin Glargine 20 units 04/19/22 22:00 04/20/22 21:03 Insulin Glargine 100 Units/Ml SUB-Q 20 units QHS [facility] Administration Insulin Human Lispro 0 unit 04/18/22 00:00 04/21/22 05:58 Insulin Lispro 100 Unit/Ml SUB-Q 6 unit Q6HR [facility] Administration Protocol Isosorbide Dinitrate 5 mg 04/20/22 14:00 04/21/22 05:38 Isosorbide Dinitrate 10 Mg Tab PO Not Given Q8HR [facility] Metoprolol Tartrate 12.5 mg 04/20/22 12:00 04/21/22 03:43 Metoprolol Tartrate 25 Mg Tab FEEDTUBE 12.5 mg Q8H [facility] Administration Multi-Ingred Cream/Lotion/Oil/Oint 1 applic 04/18/22 06:02 Mineral Oil/Petrolatum, White Ophth Oint 3.5 Gm OU Q4HR PRN Dry Eye(s) Oxycodone/Acetaminophen 1 tab 04/17/22 19:48 Oxycodone /Acetaminophen 5-325mg Tab PO Q16H PRN Pain, Moderate (4-6) Senna/Docusate Sodium 1 tab 04/18/22 10:00 04/21/22 09:13 Sennosides/Docusate Sodium 8.6/50 Mg Tab FEEDTUBE 1 tab BID [facility] Administration Sodium Chloride 10 ml 04/17/22 22:00 04/21/22 09:14 Sodium Chloride 0.9% 10 Ml Flush Syringe IV 10 ml BID FLACO Administration Sodium Chloride 10 ml 04/17/22 19:48 Sodium Chloride 0.9% 10 Ml Flush Syringe IV PRN PRN LINE FLUSH Nutrition/Malnutrition Assess - Dietary Evaluation Nutrition/Malnutrition Findings: Nutrition Notes Start: 04/18/22 08:52 Freq: Status: Active Protocol: Document 04/20/22 12:22 ROMELIA (Rec: 04/20/22 13:18 ROMELIA [id number]) Nutrition Notes Initial or Follow up Reassessment Current Diagnosis Acute Kidney Injury,Diabetes, Sepsis,Hypertension, Respiratory Failure Other Pertinent Diagnosis s/p PEA w/ROSC, HFrEF, Pneumonia, Metabolic Acidosis, Cardiogenic Shock, .. Current Diet Glucerna @ 65 ml/hr (04/18)TF- Nepro w/CARBSTEADY @ 35 ml/hr (from D 04/20). Labs/Tests 04/20: Na 133, K 3.5, Cl 91.9, BUN 44, Crea 4.6, Glu 236, Ca 7.2. Pertinent Medications 04/20: Lantus 20U, Humalog 6U, Propofol @ 20.736ml/hr (547 Kcal), Vasopressin 20U, others nutritionally unremarkable. Height 5 ft 9 in Weight 115.2 kg [place] Body Weight (kg) 72.72 BMI 37.5 Intake Prior to Admission Good Weight change and time frame Pt deniues having loss body weight [employer]. No body weight change reported in 2 days. Weight Status Obese Subjective/Other Information RD consult for TF tolerance/ continuation assessment. TF continues as prescribed, no further information available at the time. I will change TF formula due to worsening of Pt's VINCENT condition. Pt continues on Mechanical Ventilation, O2 saturation @ 98%, according to Physical Assessment History notes. Percent of energy/protein needs met: New prescribed TF-Nepro w/ CARBSTEADY @ 35 ml/hr provides for energy/protein needs (1, 500 Kcal/68 g) during LOS, 77% Kcal; 90% AA. Including 547 Kcal from Propofol: 105% Kcal; 90% AA. Burn Absent Trauma Absent GI Symptoms None Food Allergy No Skin Integrity/Comment Assessment WNL. Current % PO Other Minimum of two criteria No Fluid Accumulation N/A Reduced Rn Surgical Strength N/A (non-severe) Protein-Calorie Malnutrition N\A #2 Nutrition Diagnosis Altered nutrition-related laboratory values Etiology VINCENT. As Evidenced by Signs and Symptoms 04/20: Na 133, K 3.5, Cl 91.9, BUN 44, Crea 4.6, Glu 236, Ca 7.2. #1 Nutrition Diagnosis Inadequate oral intake Comments: Pt continues on Mechanical Ventilation, O2 saturation @ 98%, according to Physical Assessment History notes. Diagnosis Progress(for reassessment Continues documentation) Is patient on ventilator? Yes Is Patient Ambulatory and/or Out of Bed No REE-([facility]-confined to bed) 2323.608 Kcal/Kg value to use for calculation 17 Approximate Energy Requirements Using 1958 kcal/Kg Calculation Used for Recommendations Kcal/kg Additional Notes Protein: 0.8-1.2 g/Kg AdjBW; 75-113 g/day. Fluids: 1 ml/Kcal, or as per MD. Nutrition Intervention Nutrition Support: Change formula to TF-Nepro w/ CARBSTEADY @ 35 ml/hr. Flush: 220 ml water Q 4 hr, or as per MD. Kcal 1,500 Protein (gm) 68 Carbohydrates (gm) 134 Fat (gm) 80 Fluid (mL) 606 Fiber (gm) 11 % RDI: 77% Kcal; 90% AA. Goal #1 Provide at least 75% of energy /protein needs through Enteral Feeding during LOS. Follow-Up By: 04/22/22 Additional Comments Continue monitoring TF tolerance, ventilation status, vasopressors, and BM.
[2022-04-20] MEDS: INSULIN GLARGINE 100 UNITS/ML SUB-Q SCH (21:03)
[2022-04-20 21:57] LABS: ABG Base Excess 3.1 mmol/L (-2.0-3.0); ABG HCO3 29.7 mmol/L (20.0-26.0); ABG Methemoglobin 0.5 % (0.0-1.5); ABG Oxygen Saturation 90.1 % (95.0-99.0); ABG PH 7.35 pH Units (7.350-7.450); ABG PO2 59.4 mm Hg (80.0-90.0)
[2022-04-21] MEDS: SODIUM CHLORIDE 0.9% 1000 ML 1,000 ML IV SCH ×2 (00:31→13:51)
[2022-04-21] MEDS: INSULIN LISPRO 100 UNIT/ML SUB-Q SCH ×4 (00:31→18:15)
[2022-04-21] MEDS: fentaNYL DRIP Premix 2,000 MCG/100 ML BAG IV SCH ×3 (00:36→16:44)
[2022-04-21] MEDS: METOPROLOL TARTRATE 25 MG TAB FEEDTUBE SCH (03:43)
[2022-04-21 04:53] LABS: Hematocrit 35.1 % (35.5-45.6); Hemoglobin 11.7 gm/dl (11.8-15.2); Mean Corpuscular HGB Conc 33 % (32-34); Mean Corpuscular Volume 89 fl (84-94); Platelet Count 149 K/mm3 (140-440); Red Blood Count 3.95 M/mm3 (3.65-5.03); Red Cell Distribution Width 15.2 % (13.2-15.2)
[2022-04-21 05:19] LABS: Albumin 2.8 g/dL (3.9-5); Calcium 7.4 mg/dL (8.4-10.2)
--- NOTE | 2022-04-21 05:21 | XRay Report ---
XR chest 1V ap INDICATION / CLINICAL INFORMATION: follow up respiratory failure. COMPARISON: Radiograph from yesterday. FINDINGS: SUPPORT DEVICES: Unchanged. HEART /PULMONARY VASCULATURE: Unchanged. LUNGS / PLEURA: There are diminished lung volumes. Perihilar and bibasilar airspace opacities appear similar given depth of inspiration. No pneumothorax. IMPRESSION: 1. No significant interval change. Signer Name: Buddy Barrow MD Signed: 04/21/2022 5:17 AM Workstation Name: [id number]
[2022-04-21] MEDS: ISOSORBIDE DINITRATE 10 MG TAB PO SCH (05:38)
[2022-04-21] MEDS: hydrALAZINE 10 MG TAB FEEDTUBE SCH (05:38)
[2022-04-21] MEDS: HEPARIN/ 0.45% NACL DRIP 25,000 UNIT/500 ML BAG IV SCH (07:48)
[2022-04-21] MEDS: ASPIRIN 81 MG TAB CHEW FEEDTUBE SCH (09:13)
[2022-04-21] MEDS: SENNOSIDES/DOCUSATE SODIUM 8.6/50 MG TAB FEEDTUBE SCH ×2 (09:13→21:21)
[2022-04-21] MEDS: FAMOTIDINE 20 MG TAB FEEDTUBE SCH (09:13)
--- NOTE | 2022-04-21 10:52 | Progress Note ---
Assessment and Plan Acute hypoxemic respiratory failure Altered mental status Aspiration pneumonia Shock (Cardiogenic +/- Septic) Severe Metabolic Acidosis Morbid Obesity Diabetes type II Hypotension Obesity hypoventilation syndrome - care plan explained at length to his in the room again today - will follow azotemia progress post heart cath - peep increased to 10 - FiO2 reduced to 60% - follow QT interval re: Propofol & Levaquin - complete 5 days empiric CAP therapy with Levaquin - remains non oliguric - dopplers negative for lower extremity DVT - follow neurology evaluation - lactic acid level now WNL - repeat Procalcitonin to trend in am - continue care as below; - prn vasopressors for target MAP > 65mmHg) - continue daily SAT and SBT assessment as tolerated - continue to wean supplemental oxygen for target O2 sat's > 90% acutely - VAP bundle addressed - continue lung protective strategies - continue bronchodilators with pulmonary hygiene per RT - wean per pulmonary driven protocols otherwise - avoid nephrotoxins, renally dose all medications - continue accuchecks with glycemic control per SSI (While critically ill target blood glucose of 140-180 mg/dL; avoid hypoglycemia) - sedation prn for target RASS 0 to -1 - continue to avoid benzodiazepine's, reduce the possibility of delirium - AB's per ID rec's - prn analgesia per CPOT score - Maintenance of sleep-wake cycle, avoid delirium - continue enteral nutritional support at goal rate as tolerated - G.I. & VTE prophylaxis - PT/OT/ROM exercises - continue mobility protocols for pressure ulcer prophylaxis - Monitor hemodynamics closely - continue other care per attending / other consultants - discharge planning ongoing concurrently COVID SPECIFIC INTERVENTIONS - COVID-19 test result pending .... Re-evaluate in am & prn CONDITION: CRITICAL PROGNOSIS: GUARDED CODE STATUS: FULL CODE The high probability of a clinically significant, sudden or life-threatening deterioration of the [respiratory, cardiovascular, renal & neurologic] system(s) required my full and direct attention, intervention and personal management. The aggregate critical care time was [32] minutes without overlap. Time includes spent on; [x] Data Review and interpretation [x] Patient assessment and monitoring of vital signs [x] Documentation [x] Medication orders and management Subjective Date of service: 04/21/22 Principal diagnosis: AHRF; AMS; Pneumonia; Shock; DM II; Severe Metabolic Acidos is Interval history: Patient is seen today for: Acute hypoxemic respiratory failure; AMS; Aspiration pneumonia; Shock (Cardiogenic +/- Septic); DM II; Severe Metabolic Acidosis Seen and examined at bedside; 24hour events reviewed; nursing and respiratory care staff consulted; no adverse overnight events reported to me; resting in be d; remains on MVS; FiO2 increased overnight to 65% as desaturated (especially during SAT's with agitation); no emesis or overt aspiration; for left heart cath today; azotemia is better Objective Vital Signs - 12hr 04/20/22 04/20/22 04/20/22 23:00 23:15 23:31 Temperature Pulse Rate 99 H 96 H 105 H Pulse Rate [ From Monitor] Respiratory 16 16 15 Rate Blood Pressure 113/75 112/75 112/75 O2 Sat by Pulse 91 92 86 Oximetry 04/20/22 04/20/22 04/20/22 23:38 23:45 23:55 Temperature Pulse Rate 97 H 102 H Pulse Rate [ 96 H From Monitor] Respiratory 16 17 Rate Blood Pressure 112/75 O2 Sat by Pulse 91 91 Oximetry 04/20/22 04/21/22 04/21/22 23:58 00:00 00:05 Temperature 99.2 F Pulse Rate 96 H 97 H 95 H Pulse Rate [ From Monitor] Respiratory 17 16 15 Rate Blood Pressure 113/75 113/75 107/68 O2 Sat by Pulse 92 92 93 Oximetry 04/21/22 04/21/22 04/21/22 00:15 00:31 00:39 Temperature Pulse Rate 90 102 H 96 H Pulse Rate [ From Monitor] Respiratory 17 16 1 L Rate Blood Pressure 107/68 107/68 107/68 O2 Sat by Pulse 93 93 93 Oximetry 04/21/22 04/21/22 04/21/22 00:45 01:00 01:15 Temperature Pulse Rate 97 H 93 H 91 H Pulse Rate [ From Monitor] Respiratory 18 18 16 Rate Blood Pressure 113/75 99/68 99/68 O2 Sat by Pulse 94 94 94 Oximetry 04/21/22 04/21/22 04/21/22 01:31 01:45 02:00 Temperature Pulse Rate 104 H 92 H 101 H Pulse Rate [ From Monitor] Respiratory 16 18 16 Rate Blood Pressure 99/68 99/68 109/65 O2 Sat by Pulse 95 95 95 Oximetry 04/21/22 04/21/22 04/21/22 02:15 02:31 02:45 Temperature Pulse Rate 87 95 H 98 H Pulse Rate [ From Monitor] Respiratory 15 17 15 Rate Blood Pressure 109/65 109/65 109/65 O2 Sat by Pulse 95 95 94 Oximetry 04/21/22 04/21/22 04/21/22 03:00 03:15 03:31 Temperature Pulse Rate 91 H 88 88 Pulse Rate [ From Monitor] Respiratory 17 17 17 Rate Blood Pressure 107/74 109/65 109/65 O2 Sat by Pulse 95 95 95 Oximetry 04/21/22 04/21/22 04/21/22 03:45 03:48 04:00 Temperature 98.7 F Pulse Rate 107 H 97 H Pulse Rate [ 98 H From Monitor] Respiratory 22 16 Rate Blood Pressure 107/74 O2 Sat by Pulse 90 90 Oximetry 04/21/22 04/21/22 04/21/22 04:01 04:15 04:26 Temperature Pulse Rate 112 H 119 H 92 H Pulse Rate [ From Monitor] Respiratory 21 18 1 L Rate Blood Pressure 133/89 133/89 133/89 O2 Sat by Pulse 88 84 89 Oximetry 04/21/22 04/21/22 04/21/22 05:00 05:38 06:00 Temperature Pulse Rate 100 H 85 Pulse Rate [ From Monitor] Respiratory 16 16 Rate Blood Pressure 98/68 98/68 97/66 O2 Sat by Pulse 86 90 Oximetry 04/21/22 04/21/22 04/21/22 07:00 08:00 08:39 Temperature 98 F Pulse Rate 85 85 82 Pulse Rate [ 85 From Monitor] Respiratory 16 16 Rate Blood Pressure 95/63 103/70 103/70 O2 Sat by Pulse 91 92 94 Oximetry 04/21/22 04/21/22 09:00 10:00 Temperature Pulse Rate 84 74 Pulse Rate [ From Monitor] Respiratory 16 16 Rate Blood Pressure 96/66 97/63 O2 Sat by Pulse 91 93 Oximetry Constitutional: no acute distress, other (elderly obese 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 [employer]) Eyes: non-icteric ENT: oropharynx moist, other (ETT 24 cm DIANNE) Neck: supple, no JVD Effort: normal Ascultation: Bilateral: diminished breath sounds, rales (improved) Percussion: Bilateral: not dull Cardiovascular: irregular rhythm, other (No R/M) Gastrointestinal: normoactive bowel sounds, soft, non-tender, non-distended (protuberant) Integumentary: normal Extremities: no cyanosis, no edema, pulses normal, no ischemia or petechiae Neurologic: non-focal exam (grossly), pupils equal and round, unable to assess Psychiatric: other (Unable to assess due to mental status.) CBC and BMP: 04/21/22 04:30 04/21/22 04:30 ABG, PT/INR, D-dimer: ABG ABG pH 7.350 pH Units (7.350-7.450) 04/20/22 21:40 ABG pCO2 55.0 mm Hg 04/20/22 21:40 ABG pO2 59.4 mm Hg (80.0-90.0) L 04/20/22 21:40 ABG O2 Saturation 90.1 % (95.0-99.0) L 04/20/22 21:40 PT/INR, D-dimer PT 15.6 Sec. (12.2-14.9) H 04/18/22 Unknown INR 1.08 (0.87-1.13) 04/18/22 Unknown Abnormal lab findings: Abnormal Labs 04/17/22 04/17/22 04/17/22 19:18 19:55 19:56 WBC RBC Hgb Hct Seg Neutrophils % Seg Neuts % (Manual) Lymphocytes % (Manual) Seg Neutrophils # Seg Neutrophils # Man PT Heparin Anti-Xa Level ABG pH 7.120 L* ABG pO2 45.3 L ABG HCO3 18.5 L ABG O2 Saturation 68.3 L ABG Base Excess -11.5 L ABG Hemoglobin Oxyhemoglobin 66.8 L Sodium Potassium Chloride 94.2 L Carbon Dioxide 17 L BUN Creatinine 1.6 H Glucose 315 H POC Glucose 277 H Lactic Acid Calcium Phosphorus Magnesium AST 529 H ALT 318 H Alkaline Phosphatase 137 H Total Creatine Kinase 398 H CK-MB (CK-2) 17.9 H CK-MB (CK-2) Rel Index 4.4 H Troponin T 0.205 H* Total Protein Albumin Triglycerides Urine Blood Urine WBC (Auto) Urine Creatinine 04/17/22 04/17/22 04/17/22 19:58 19:58 21:42 WBC 11.9 H RBC 5.17 H Hgb 15.5 H Hct 48.0 H Seg Neutrophils % 71.7 H Seg Neuts % (Manual) Lymphocytes % (Manual) Seg Neutrophils # 8.5 H Seg Neutrophils # Man PT Heparin Anti-Xa Level ABG pH ABG pO2 ABG HCO3 ABG O2 Saturation ABG Base Excess ABG Hemoglobin Oxyhemoglobin Sodium Potassium Chloride 95.0 L Carbon Dioxide 19 L BUN Creatinine 1.5 H Glucose 306 H POC Glucose Lactic Acid Calcium Phosphorus Magnesium AST ALT Alkaline Phosphatase Total Creatine Kinase 412 H CK-MB (CK-2) 19.2 H CK-MB (CK-2) Rel Index 4.6 H Troponin T 0.285 H* D Total Protein Albumin Triglycerides Urine Blood Urine WBC (Auto) Urine Creatinine 04/17/22 04/18/22 04/18/22 21:42 00:40 01:07 WBC RBC Hgb Hct Seg Neutrophils % Seg Neuts % (Manual) Lymphocytes % (Manual) Seg Neutrophils # Seg Neutrophils # Man PT Heparin Anti-Xa Level ABG pH ABG pO2 ABG HCO3 ABG O2 Saturation ABG Base Excess ABG Hemoglobin Oxyhemoglobin Sodium Potassium Chloride Carbon Dioxide BUN Creatinine Glucose POC Glucose 320 H Lactic Acid 7.90 H* 7.90 H* Calcium Phosphorus Magnesium AST ALT Alkaline Phosphatase Total Creatine Kinase CK-MB (CK-2) CK-MB (CK-2) Rel Index Troponin T Total Protein Albumin Triglycerides Urine Blood Urine WBC (Auto) Urine Creatinine 04/18/22 04/18/22 04/18/22 01:07 04:00 06:04 WBC RBC Hgb Hct Seg Neutrophils % Seg Neuts % (Manual) Lymphocytes % (Manual) Seg Neutrophils # Seg Neutrophils # Man PT Heparin Anti-Xa Level < 0.10 L ABG pH ABG pO2 ABG HCO3 ABG O2 Saturation ABG Base Excess ABG Hemoglobin Oxyhemoglobin Sodium Potassium Chloride Carbon Dioxide BUN Creatinine Glucose POC Glucose 305 H Lactic Acid Calcium Phosphorus Magnesium AST ALT Alkaline Phosphatase Total Creatine Kinase 488 H CK-MB (CK-2) 25.3 H CK-MB (CK-2) Rel Index 5.1 H Troponin T 0.665 H* D Total Protein Albumin Triglycerides Urine Blood Urine WBC (Auto) Urine Creatinine 04/18/22 04/18/22 04/18/22 06:20 11:10 12:48 WBC RBC Hgb Hct Seg Neutrophils % Seg Neuts % (Manual) Lymphocytes % (Manual) Seg Neutrophils # Seg Neutrophils # Man PT Heparin Anti-Xa Level < 0.10 L ABG pH 7.119 L* 7.304 L ABG pO2 56.1 L 103.5 H ABG HCO3 18.4 L 14.4 L ABG O2 Saturation 80.7 L ABG Base Excess -11.4 L -10.6 L ABG Hemoglobin 13.5 L Oxyhemoglobin 79.2 L Sodium Potassium Chloride Carbon Dioxide BUN Creatinine Glucose POC Glucose Lactic Acid Calcium Phosphorus Magnesium AST ALT Alkaline Phosphatase Total Creatine Kinase CK-MB (CK-2) CK-MB (CK-2) Rel Index Troponin T Total Protein Albumin Triglycerides Urine Blood Urine WBC (Auto) Urine Creatinine 04/18/22 04/18/22 04/18/22 13:13 16:00 16:00 WBC RBC Hgb Hct Seg Neutrophils % Seg Neuts % (Manual) Lymphocytes % (Manual) Seg Neutrophils # Seg Neutrophils # Man PT Heparin Anti-Xa Level ABG pH ABG pO2 ABG HCO3 ABG O2 Saturation ABG Base Excess ABG Hemoglobin Oxyhemoglobin Sodium Potassium Chloride Carbon Dioxide BUN Creatinine Glucose POC Glucose 334 H Lactic Acid 7.00 H* Calcium Phosphorus 5.70 H Magnesium 1.30 L AST ALT Alkaline Phosphatase Total Creatine Kinase 969 H CK-MB (CK-2) 55.9 H CK-MB (CK-2) Rel Index 5.7 H Troponin T 1.580 H* D Total Protein Albumin Triglycerides Urine Blood Urine WBC (Auto) Urine Creatinine 04/18/22 04/18/22 04/18/22 16:00 18:00 18:01 WBC RBC Hgb Hct Seg Neutrophils % Seg Neuts % (Manual) Lymphocytes % (Manual) Seg Neutrophils # Seg Neutrophils # Man PT Heparin Anti-Xa Level < 0.10 L ABG pH ABG pO2 ABG HCO3 ABG O2 Saturation ABG Base Excess ABG Hemoglobin Oxyhemoglobin Sodium 136 L Potassium 6.3 H* D Chloride 97.6 L Carbon Dioxide 18 L BUN 34 H Creatinine 3.5 H Glucose 409 H POC Glucose 397 H Lactic Acid Calcium 6.8 L Phosphorus Magnesium AST ALT Alkaline Phosphatase Total Creatine Kinase CK-MB (CK-2) CK-MB (CK-2) Rel Index Troponin T Total Protein Albumin Triglycerides Urine Blood Urine WBC (Auto) Urine Creatinine 04/18/22 04/18/22 04/18/22 19:13 20:58 21:22 WBC RBC Hgb Hct Seg Neutrophils % Seg Neuts % (Manual) Lymphocytes % (Manual) Seg Neutrophils # Seg Neutrophils # Man PT Heparin Anti-Xa Level ABG pH 7.502 H ABG pO2 144.5 H ABG HCO3 ABG O2 Saturation ABG Base Excess ABG Hemoglobin 12.5 L Oxyhemoglobin Sodium Potassium Chloride Carbon Dioxide BUN Creatinine Glucose POC Glucose 321 H 307 H Lactic Acid Calcium Phosphorus Magnesium AST ALT Alkaline Phosphatase Total Creatine Kinase CK-MB (CK-2) CK-MB (CK-2) Rel Index Troponin T Total Protein Albumin Triglycerides Urine Blood Urine WBC (Auto) Urine Creatinine 04/18/22 04/18/22 04/18/22 21:30 21:30 Unknown WBC RBC Hgb Hct Seg Neutrophils % Seg Neuts % (Manual) 81.0 H Lymphocytes % (Manual) 12.0 L Seg Neutrophils # 9.8 H Seg Neutrophils # Man 8.7 H PT Heparin Anti-Xa Level ABG pH ABG pO2 ABG HCO3 ABG O2 Saturation ABG Base Excess ABG Hemoglobin Oxyhemoglobin Sodium Potassium Chloride 96.6 L Carbon Dioxide BUN 37 H Creatinine 3.6 H Glucose 312 H POC Glucose Lactic Acid 5.50 H* Calcium 7.3 L Phosphorus Magnesium AST ALT Alkaline Phosphatase Total Creatine Kinase CK-MB (CK-2) CK-MB (CK-2) Rel Index Troponin T Total Protein Albumin Triglycerides Urine Blood Urine WBC (Auto) Urine Creatinine 04/18/22 04/18/22 04/19/22 Unknown Unknown 00:35 WBC RBC Hgb Hct Seg Neutrophils % Seg Neuts % (Manual) Lymphocytes % (Manual) Seg Neutrophils # Seg Neutrophils # Man PT 15.6 H Heparin Anti-Xa Level ABG pH ABG pO2 ABG HCO3 ABG O2 Saturation ABG Base Excess ABG Hemoglobin Oxyhemoglobin Sodium Potassium Chloride Carbon Dioxide 18 L BUN 26 H Creatinine 2.5 H D Glucose 330 H POC Glucose Lactic Acid Calcium 7.9 L Phosphorus Magnesium AST 463 H ALT 249 H Alkaline Phosphatase Total Creatine Kinase CK-MB (CK-2) CK-MB (CK-2) Rel Index Troponin T 2.670 H* D Total Protein Albumin 3.3 L Triglycerides Urine Blood Urine WBC (Auto) Urine Creatinine 04/19/22 04/19/22 04/19/22 00:39 02:08 02:08 WBC RBC Hgb Hct Seg Neutrophils % Seg Neuts % (Manual) Lymphocytes % (Manual) Seg Neutrophils # Seg Neutrophils # Man PT Heparin Anti-Xa Level ABG pH ABG pO2 ABG HCO3 ABG O2 Saturation ABG Base Excess ABG Hemoglobin Oxyhemoglobin Sodium Potassium Chloride Carbon Dioxide BUN Creatinine Glucose POC Glucose 263 H Lactic Acid Calcium Phosphorus Magnesium AST ALT Alkaline Phosphatase Total Creatine Kinase CK-MB (CK-2) CK-MB (CK-2) Rel Index Troponin T Total Protein Albumin Triglycerides Urine Blood Large A Urine WBC (Auto) 88.0 H Urine Creatinine 90.9 H 04/19/22 04/19/22 04/19/22 02:08 03:45 03:45 WBC 14.2 H RBC Hgb Hct Seg Neutrophils % Seg Neuts % (Manual) Lymphocytes % (Manual) Seg Neutrophils # Seg Neutrophils # Man PT Heparin Anti-Xa Level 0.18 L ABG pH ABG pO2 ABG HCO3 ABG O2 Saturation ABG Base Excess ABG Hemoglobin Oxyhemoglobin Sodium Potassium Chloride 94.2 L Carbon Dioxide BUN 39 H Creatinine 3.8 H Glucose 243 H POC Glucose Lactic Acid Calcium 7.1 L Phosphorus Magnesium 1.50 L AST 380 H ALT 289 H Alkaline Phosphatase Total Creatine Kinase CK-MB (CK-2) CK-MB (CK-2) Rel Index Troponin T Total Protein 5.4 L Albumin 2.5 L Triglycerides Urine Blood Urine WBC (Auto) Urine Creatinine 04/19/22 04/19/22 04/19/22 03:45 06:01 07:11 WBC RBC Hgb Hct Seg Neutrophils % Seg Neuts % (Manual) Lymphocytes % (Manual) Seg Neutrophils # Seg Neutrophils # Man PT Heparin Anti-Xa Level ABG pH ABG pO2 ABG HCO3 ABG O2 Saturation ABG Base Excess ABG Hemoglobin Oxyhemoglobin Sodium Potassium Chloride Carbon Dioxide BUN Creatinine Glucose POC Glucose 165 H Lactic Acid 4.00 H* Calcium Phosphorus Magnesium AST ALT Alkaline Phosphatase Total Creatine Kinase 3270 H CK-MB (CK-2) 28.5 H CK-MB (CK-2) Rel Index Troponin T 2.980 H* Total Protein Albumin Triglycerides Urine Blood Urine WBC (Auto) Urine Creatinine 04/19/22 04/19/22 04/19/22 07:50 08:50 12:49 WBC RBC Hgb Hct Seg Neutrophils % Seg Neuts % (Manual) Lymphocytes % (Manual) Seg Neutrophils # Seg Neutrophils # Man PT Heparin Anti-Xa Level ABG pH 7.471 H ABG pO2 58.9 L ABG HCO3 27.1 H ABG O2 Saturation 91.7 L ABG Base Excess 3.4 H ABG Hemoglobin 12.2 L Oxyhemoglobin 90.0 L Sodium Potassium Chloride Carbon Dioxide BUN Creatinine Glucose POC Glucose 331 H Lactic Acid 3.40 H* Calcium Phosphorus Magnesium AST ALT Alkaline Phosphatase Total Creatine Kinase CK-MB (CK-2) CK-MB (CK-2) Rel Index Troponin T Total Protein Albumin Triglycerides Urine Blood Urine WBC (Auto) Urine Creatinine 04/19/22 04/19/22 04/19/22 16:15 19:25 21:17 WBC RBC Hgb Hct Seg Neutrophils % Seg Neuts % (Manual) Lymphocytes % (Manual) Seg Neutrophils # Seg Neutrophils # Man PT Heparin Anti-Xa Level ABG pH ABG pO2 ABG HCO3 ABG O2 Saturation ABG Base Excess ABG Hemoglobin Oxyhemoglobin Sodium Potassium Chloride Carbon Dioxide BUN Creatinine Glucose POC Glucose 304 H 251 H Lactic Acid 4.00 H* Calcium Phosphorus Magnesium AST ALT Alkaline Phosphatase Total Creatine Kinase CK-MB (CK-2) CK-MB (CK-2) Rel Index Troponin T Total Protein Albumin Triglycerides Urine Blood Urine WBC (Auto) Urine Creatinine 04/19/22 04/20/22 04/20/22 23:00 04:12 04:12 WBC 12.2 H RBC Hgb 11.6 L Hct 35.3 L Seg Neutrophils % Seg Neuts % (Manual) Lymphocytes % (Manual) Seg Neutrophils # Seg Neutrophils # Man PT Heparin Anti-Xa Level 0.15 L ABG pH ABG pO2 ABG HCO3 ABG O2 Saturation ABG Base Excess ABG Hemoglobin Oxyhemoglobin Sodium Potassium Chloride Carbon Dioxide BUN Creatinine Glucose POC Glucose 236 H Lactic Acid Calcium Phosphorus Magnesium AST ALT Alkaline Phosphatase Total Creatine Kinase CK-MB (CK-2) CK-MB (CK-2) Rel Index Troponin T Total Protein Albumin Triglycerides Urine Blood Urine WBC (Auto) Urine Creatinine 04/20/22 04/20/22 04/20/22 04:12 04:12 09:10 WBC RBC Hgb Hct Seg Neutrophils % Seg Neuts % (Manual) Lymphocytes % (Manual) Seg Neutrophils # Seg Neutrophils # Man PT Heparin Anti-Xa Level ABG pH ABG pO2 ABG HCO3 ABG O2 Saturation ABG Base Excess ABG Hemoglobin Oxyhemoglobin Sodium 133 L Potassium 3.5 L Chloride 91.9 L Carbon Dioxide BUN 44 H Creatinine 4.6 H Glucose 263 H POC Glucose Lactic Acid 2.80 H* Calcium 7.2 L Phosphorus Magnesium AST 553 H ALT 471 H Alkaline Phosphatase Total Creatine Kinase 3019 H CK-MB (CK-2) CK-MB (CK-2) Rel Index Troponin T Total Protein 5.7 L Albumin 2.4 L Triglycerides 254 H Urine Blood Urine WBC (Auto) Urine Creatinine 04/20/22 04/20/22 04/20/22 09:31 11:18 18:08 WBC RBC Hgb Hct Seg Neutrophils % Seg Neuts % (Manual) Lymphocytes % (Manual) Seg Neutrophils # Seg Neutrophils # Man PT Heparin Anti-Xa Level ABG pH 7.512 H ABG pO2 ABG HCO3 26.2 H ABG O2 Saturation ABG Base Excess 3.2 H ABG Hemoglobin 9.0 L Oxyhemoglobin Sodium Potassium Chloride Carbon Dioxide BUN Creatinine Glucose POC Glucose 285 H 293 H Lactic Acid Calcium Phosphorus Magnesium AST ALT Alkaline Phosphatase Total Creatine Kinase CK-MB (CK-2) CK-MB (CK-2) Rel Index Troponin T Total Protein Albumin Triglycerides Urine Blood Urine WBC (Auto) Urine Creatinine 04/20/22 04/21/22 04/21/22 21:40 00:10 04:00 WBC RBC Hgb Hct Seg Neutrophils % Seg Neuts % (Manual) Lymphocytes % (Manual) Seg Neutrophils # Seg Neutrophils # Man PT Heparin Anti-Xa Level 0.16 L ABG pH ABG pO2 59.4 L ABG HCO3 29.7 H ABG O2 Saturation 90.1 L ABG Base Excess 3.1 H ABG Hemoglobin 11.6 L Oxyhemoglobin 88.2 L Sodium Potassium Chloride Carbon Dioxide BUN Creatinine Glucose POC Glucose 290 H Lactic Acid Calcium Phosphorus Magnesium AST ALT Alkaline Phosphatase Total Creatine Kinase CK-MB (CK-2) CK-MB (CK-2) Rel Index Troponin T Total Protein Albumin Triglycerides Urine Blood Urine WBC (Auto) Urine Creatinine 04/21/22 04/21/22 04/21/22 04:30 04:30 05:57 WBC 17.9 H RBC Hgb 11.7 L Hct 35.1 L Seg Neutrophils % Seg Neuts % (Manual) Lymphocytes % (Manual) Seg Neutrophils # Seg Neutrophils # Man PT Heparin Anti-Xa Level ABG pH ABG pO2 ABG HCO3 ABG O2 Saturation ABG Base Excess ABG Hemoglobin Oxyhemoglobin Sodium Potassium Chloride 95.7 L Carbon Dioxide BUN 45 H Creatinine 4.2 H Glucose 309 H POC Glucose 265 H Lactic Acid Calcium 7.4 L Phosphorus 5.60 H D Magnesium 2.50 H AST 217 H ALT 376 H Alkaline Phosphatase Total Creatine Kinase CK-MB (CK-2) CK-MB (CK-2) Rel Index Troponin T Total Protein Albumin 2.8 L Triglycerides Urine Blood Urine WBC (Auto) Urine Creatinine Chest x-ray: image reviewed (possible layering bilateral pleural effusions) Allied health notes reviewed: nursing
--- NOTE | 2022-04-21 11:19 | Vascular Lab Report ---
DUPLEX DOPPLER LOWER EXTREMITY VEINS, BILATERAL INDICATION / CLINICAL INFORMATION: SWELLING. TECHNIQUE: Duplex doppler imaging was performed through the veins of both lower extremities using carlito ous compression and other maneuvers. COMPARISON: Bilateral lower extremity venous Doppler 04/18/2022. FINDINGS: RIGHT COMMON FEMORAL VEIN: Negative. RIGHT FEMORAL VEIN: Negative. RIGHT POPLITEAL VEIN: Negative. RIGHT CALF VEINS: Negative. LEFT COMMON FEMORAL VEIN: Negative. LEFT FEMORAL VEIN: Negative. LEFT POPLITEAL VEIN: Negative. LEFT CALF VEINS: Negative. ADDITIONAL FINDINGS: None. IMPRESSION: 1. No sonographic evidence for DVT in either lower extremity. Scribed by: Bridget Mon RDMS, NILAM, JINA Scribed: 04/21/2022 9:16 AM I have reviewed the images, agree with this report, and edited this report as needed. Signer Name: Jeremy Massey MD Signed: 04/21/2022 11:14 AM Workstation Name: [id number]
[2022-04-21] MEDS ORDERED: HEPARIN/NS 5000 UNIT/500ML 1,000 ML IR ONE (11:20)
[2022-04-21] MEDS ORDERED: LIDOCAINE (1%) 10 MG/1 ML VIAL 20 ML MDV ONE (11:20)
[2022-04-21] MEDS ORDERED: HEPARIN 10,000 UNITS/10 ML VIAL ONE (11:21)
--- NOTE | 2022-04-21 11:52 | Progress Note ---
Assessment and Plan VINCENT /TASHA - Pt for cardiac Cath today. Avoid fluid boluses but continue IVF NS & f/u BUN/Cr. Would however begin [employer] if renal fxn worsens in am. Discuss with pt's Hypotension - Improved & off all pressors. Hold all BP meds, including Cardiac meds for now. May resume Vasopressin to ensure adequate renoperfusion if SBP remains in low 100s. May actually avoid HD if perfusion remains good on goldie nuous IVF. Will discuss with [employer] S/p V Fib Arrest - On Amiodarone, f/u per Cardiology Lytes - F/u labs Resp Failure - F/u vent weaning per Pulm >38mins Subjective Date of service: 04/21/22 Principal diagnosis: AHRF; AMS; Pneumonia; Shock; DM II; Severe Metabolic Acidosis Interval history: Pt for Cardiac cath today Objective - Vital Signs Vital signs: Vital Signs - 12hr 04/20/22 04/20/22 04/20/22 23:45 23:55 23:58 Temperature Pulse Rate 102 H 96 H Pulse Rate [ 96 H From Monitor] Respiratory 16 17 17 Rate Blood Pressure 112/75 113/75 O2 Sat by Pulse 91 91 92 Oximetry 04/21/22 04/21/22 04/21/22 00:00 00:05 00:15 Temperature 99.2 F Pulse Rate 97 H 95 H 90 Pulse Rate [ From Monitor] Respiratory 16 15 17 Rate Blood Pressure 113/75 107/68 107/68 O2 Sat by Pulse 92 93 93 Oximetry 04/21/22 04/21/22 04/21/22 00:31 00:39 00:45 Temperature Pulse Rate 102 H 96 H 97 H Pulse Rate [ From Monitor] Respiratory 16 1 L 18 Rate Blood Pressure 107/68 107/68 113/75 O2 Sat by Pulse 93 93 94 Oximetry 04/21/22 04/21/22 04/21/22 01:00 01:15 01:31 Temperature Pulse Rate 93 H 91 H 104 H Pulse Rate [ From Monitor] Respiratory 18 16 16 Rate Blood Pressure 99/68 99/68 99/68 O2 Sat by Pulse 94 94 95 Oximetry 04/21/22 04/21/22 04/21/22 01:45 02:00 02:15 Temperature Pulse Rate 92 H 101 H 87 Pulse Rate [ From Monitor] Respiratory 18 16 15 Rate Blood Pressure 99/68 109/65 109/65 O2 Sat by Pulse 95 95 95 Oximetry 04/21/22 04/21/22 04/21/22 02:31 02:45 03:00 Temperature Pulse Rate 95 H 98 H 91 H Pulse Rate [ From Monitor] Respiratory 17 15 17 Rate Blood Pressure 109/65 109/65 107/74 O2 Sat by Pulse 95 94 95 Oximetry 04/21/22 04/21/22 04/21/22 03:15 03:31 03:45 Temperature Pulse Rate 88 88 107 H Pulse Rate [ From Monitor] Respiratory 17 17 22 Rate Blood Pressure 109/65 109/65 107/74 O2 Sat by Pulse 95 95 90 Oximetry 04/21/22 04/21/22 04/21/22 03:48 04:00 04:01 Temperature 98.7 F Pulse Rate 97 H 112 H Pulse Rate [ 98 H From Monitor] Respiratory 16 21 Rate Blood Pressure 133/89 O2 Sat by Pulse 90 88 Oximetry 04/21/22 04/21/22 04/21/22 04:15 04:26 05:00 Temperature Pulse Rate 119 H 92 H 100 H Pulse Rate [ From Monitor] Respiratory 18 1 L 16 Rate Blood Pressure 133/89 133/89 98/68 O2 Sat by Pulse 84 89 86 Oximetry 04/21/22 04/21/22 04/21/22 05:38 06:00 07:00 Temperature Pulse Rate 85 85 Pulse Rate [ From Monitor] Respiratory 16 16 Rate Blood Pressure 98/68 97/66 95/63 O2 Sat by Pulse 90 91 Oximetry 04/21/22 04/21/22 04/21/22 08:00 08:39 09:00 Temperature 98 F Pulse Rate 85 82 84 Pulse Rate [ 85 From Monitor] Respiratory 16 16 Rate Blood Pressure 103/70 103/70 96/66 O2 Sat by Pulse 92 94 91 Oximetry 04/21/22 04/21/22 10:00 11:16 Temperature Pulse Rate 74 Pulse Rate [ From Monitor] Respiratory 16 Rate Blood Pressure 97/63 O2 Sat by Pulse 93 95 Oximetry - General Appearance General appearance: sedated on ventilator, other Neck: no JVD Respiratory: Present: Other (Air entry per vent) Cardiology: regular, S1S2 Gastrointestinal: other (Soft) - Lab 04/21/22 04:30 04/21/22 04:30 Most recent lab results ABG pH 7.350 pH Units (7.350-7.450) 08/08/22 21:40 ABG pCO2 55.0 mm Hg 04/20/22 21:40 ABG pO2 59.4 mm Hg (80.0-90.0) L 04/20/22 21:40 ABG HCO3 29.7 mmol/L (20.0-26.0) H 04/20/22 21:40 ABG O2 Saturation 90.1 % (95.0-99.0) L 04/20/22 21:40 Calcium 7.4 mg/dL (8.4-10.2) L 04/21/22 04:30 Phosphorus 5.60 mg/dL (2.5-4.5) H D 04/21/22 04:30 Magnesium 2.50 mg/dL (1.7-2.3) H 04/21/22 04:30 Urine Creatinine 90.9 mg/dL (0.1-20.0) H 04/19/22 02:08 Urine Sodium 54 mmol/L 04/19/22 02:08 Medications & Allergies - Medications Allergies/Adverse Reactions: Allergies No Known Allergies Allergy (Unverified 04/17/22 19:30) Active Medications: Generic Name Dose Route Start Last Admin Trade Name Freq PRN Reason Stop Dose Admin Acetaminophen 650 mg 04/17/22 19:48 04/19/22 17:25 Acetaminophen 325 Mg Tab PO 650 mg Q6H PRN Administration Pain MILD(1-3)/Fever >100.5/CHE Albuterol 2.5 mg 04/17/22 19:48 Albuterol 2.5 Mg/3 Ml Nebu IH Q3HRT PRN Shortness Of Breath Aspirin 81 mg 04/20/22 12:00 04/21/22 09:13 Aspirin 81 Mg Tab Chew FEEDTUBE 81 mg QDAY FLACO Administration Atorvastatin Calcium 20 mg 04/20/22 22:00 04/20/22 21:00 Atorvastatin 20 Mg Tab FEEDTUBE 20 mg QHS FLACO Administration Dextrose 0 ml 04/17/22 23:46 Dextrose 50% In Water (25gm) 50 Ml Syringe IV Q30MIN PRN Hypoglycemia Protocol Famotidine 20 mg 04/20/22 10:00 04/21/22 09:13 Famotidine 20 Mg Tab FEEDTUBE 20 mg DAILY FLACO Administration Fentanyl 50 mcg 04/17/22 20:22 04/18/22 03:52 Fentanyl 100 Mcg/2 Ml Inj IV 50 mcg Q10MIN PRN Administration ANALGESIA Hydralazine HCl 10 mg 04/20/22 14:00 04/21/22 05:38 Hydralazine 10 Mg Tab FEEDTUBE Not Given Q8HR FLACO Hydrophilic Ointment 1 applic 04/18/22 06:02 Lip Therapy Vaseline TP Q2HR PRN Dry Lips Amiodarone HCl 900 mg/ 500 mls @ 33.333 mls/hr 04/17/22 20:00 04/20/22 21:22 Dextrose IV 0.5 mg/min DIRECT FLACO 16.667 mls/hr Titration Protocol 1 MG/MIN NORepinephrine/NS 8 MG-250 ML 8 mg in 250 mls @ 3.75 mls/hr 04/17/22 21:00 04/20/22 21:22 Norepinephrine/Ns 8 Mg-250 Ml (Double Conc) IV 0 mcg/min TITRATE FLACO 0 mls/hr Titration Protocol 2 MCG/MIN Fentanyl Citrate 2,000 mcg in 100 mls @ 5.443 mls/hr 04/17/22 21:00 04/21/22 07:47 Fentanyl Drip Premix IV 2 mcg/kg/hr TITR FLACO 10.886 mls/hr Administration Protocol 1 MCG/KG/HR Vasopressin 20 unit/ Sodium 101 mls @ 9.09 mls/hr 04/17/22 23:45 04/20/22 21:22 Chloride IV 0 units/min TITR FLACO 0 mls/hr Titration Protocol 0.03 UNITS/MIN Heparin Sodium/Sodium Chloride 25,000 unit in 500 mls @ 20 mls/hr 04/18/22 06:00 04/21/22 07:48 Heparin/ 0.45% Nacl-25,000 Unit/500 Ml IV 1,400 units/hr TITRATE FLACO 28 mls/hr Administration Protocol 1,000 UNITS/HR Propofol 1,000 mg in 100 mls @ 3.456 mls/hr 04/18/22 07:00 04/21/22 07:53 Diprivan 10 Mg/Ml IV 25 mcg/kg/min TITR FLACO 17.28 mls/hr Titration Protocol 5 MCG/KG/MIN Phenylephrine HCl 100 mg/ 100 mls @ 3 mls/hr 04/18/22 07:30 Sodium Chloride IV TITR FLACO Protocol 50 MCG/MIN Dopamine HCl/Dextrose 800 mg in 250 mls @ 4.32 mls/hr 04/19/22 02:00 04/20/22 21:22 Dopamine 800 Mg/D5w 250ml IV 0 mcg/kg/min TITR FLACO 0 mls/hr Titration Protocol 2 MCG/KG/MIN Levofloxacin/Dextrose 500 mg in 100 mls @ 100 mls/hr 04/20/22 22:00 04/20/22 22:00 Levaquin 500mg/100ml IV 04/25/22 21:59 Infused Q48H [facility] Infusion Protocol Insulin Glargine 20 units 04/19/22 22:00 04/20/22 21:03 Insulin Glargine 100 Units/Ml SUB-Q 20 units QHS FLACO Administration Insulin Human Lispro 0 unit 04/18/22 00:00 04/21/22 05:58 Insulin Lispro 100 Unit/Ml SUB-Q 6 unit Q6HR [facility] Administration Protocol Isosorbide Dinitrate 5 mg 04/20/22 14:00 04/21/22 05:38 Isosorbide Dinitrate 10 Mg Tab PO Not Given Q8HR [facility] Metoprolol Tartrate 12.5 mg 04/20/22 12:00 04/21/22 03:43 Metoprolol Tartrate 25 Mg Tab FEEDTUBE 12.5 mg Q8H [facility] Administration Multi-Ingred Cream/Lotion/Oil/Oint 1 applic 04/18/22 06:02 Mineral Oil/Petrolatum, White Ophth Oint 3.5 Gm OU Q4HR PRN Dry Eye(s) Oxycodone/Acetaminophen 1 tab 04/17/22 19:48 Oxycodone /Acetaminophen 5-325mg Tab PO Q16H PRN Pain, Moderate (4-6) Senna/Docusate Sodium 1 tab 04/18/22 10:00 04/21/22 09:13 Sennosides/Docusate Sodium 8.6/50 Mg Tab FEEDTUBE 1 tab BID FLACO Administration Sodium Chloride 10 ml 04/17/22 22:00 04/21/22 09:14 Sodium Chloride 0.9% 10 Ml Flush Syringe IV 10 ml BID FLACO Administration Sodium Chloride 10 ml 04/17/22 19:48 Sodium Chloride 0.9% 10 Ml Flush Syringe IV PRN PRN LINE FLUSH
--- NOTE | 2022-04-21 12:05 | Progress Note ---
Assessment and Plan Assessment and plan: This is a 62 year old male with OHS, HTN, DM, metabolic syndrome, s/p vfib cardiac arrest, Septic shock, aspiration pneumonia, transaminitis, VINCENT with acute metabolic encephalopathy Neuro: Acute metabolic encephalopathy, facial contusions s/p fall -CT head showed no focal intra-axial mass, hemorrhage, hydrocephalus or acute or large territorial infarct -Sedated with propofol and fentanyl -RASS goal 0 to -1 -Reorientation as needed -Maintain sleep-wake cycle -Neurology consulted, appreciate recommendations -As needed analgesia Cardiac: A. fib RVR , s/p V. fib cardiac arrest, ? cardiogenic shock, h/o atrial fibrillation s/p cardioversion, HTN -Cardiology consulted, appreciate recommendations -S/p V. fib cardiac arrest -S/p dopamine drip which was changed to dobutamine drip which resolved her tachycardia -Amio gtt changed to PO -Stop IV heparin -Blood pressure monitoring per protocol -s/p Vasopressor support with levophed, epinephrine and vasopressin -MAP goal greater than 65 -Echocardiogram shows EF of 15 to 20% -Left heart cath showed severe nonischemic cardiomyopathy with patent coronary arteries, which per cardiology presumably resulted in a primary cardiac arrest. -Per cardio: When blood pressure tolerates, he will need optimal medical therapy for afterload, beta-blockers, and long-term oral anticoagulation. Eventually from a cardiac standpoint, will need predischarge device therapy for secondary prevention of SCD, once he is off the vent and clinical status is optimized. Respiratory: Acute hypoxic respiratory failure, h/o OHS -CCM consulted, appreciate recommendations -Intubated on 04/17 with -A.m. vent settings: AC tidal volume 500, rate 25, PEEP 10, FiO2 65% -See RT notes for titration -A.m. ABG and CXR noted -VAP bundle -SPO2 monitoring GI: Transaminitis, moderate protein calorie malnutrition -24 hours + 3205 mL -PPI -NTR consulted for tube feedings -BR: Senokot -Trend LFTs : Acute kidney injury likely secondary to vasomotor nephropathy, hypochloremia -Nephrology consulted, appreciate recommendations -Strict intake and output -Renally dose medications -Avoid nephrotoxic medications -s/p bicarb gtt -NS MIVF per nephro -Renal ultrasound shows distended gallbladder, no cholecystic fluid -Trend BMP ID: Aspiration pneumonia, Sepsis, lactic acidosis -CTA chest shows extensive bilateral airspace disease present dependent portions and greater in the upper lobes, given distribution could be related to aspi ration -Admitted with hypotension, lactic acidosis, acute kidney injury -Antibiotic therapy with Levaquin -f/u blood culture -Monitor WBC and temperature curve Endo: h/o DM -Avoid hypoglycemia -SSI -Accu-Cheks q. 6 -Long-acting insulin, titrate as needed Heme: Leukocytosis, elevated D-dimer -CTA chest shows no pulmonary embolism -Trend CBC -Transfuse hemoglobin less than 7 -Bilateral Doppler ultrasound showed no DVT -Anticoagulation with heparin drip -SCDs to BLE while in bed The high probability of a clinically significant, sudden or life threatening deterioration of the [multiple] system(s) required my full and direct attention, intervention and personal management. The aggregate critical care time was [60] minutes. This time is in addition to time spent performing reported procedures but includes the following: [x] Data Review and interpretation [x] Patient assessment and monitoring of vital signs [x] Documentation [x] Medication orders and management Disposition Plan: icu Total Time Spent with Patient (Minutes): 60 History Interval history: This is is a 62-year-old male with OHS, HTN, DM, metabolic syndrome presents the emergency department on 04/17 via EMS s/p cardiac arrest. As per family patient presented to [facility] for evaluation for chest pain and subsequently went to the restroom where he was found unresponsive and EMS arrived and noted the patient had a V. fib arrest and ACLS was initiated and p atient was transported to [facility] for further evaluation. Patient was noted to have aspirated into the oropharynx with suspected aspiration pneumonia complicated by acute hypoxic respiratory failure, septic shock and cardiac arrest. Patient was initiated on the sepsis protocol, IV vasopressor support and admitted to the ICU with consults to [facility], nephrology and cardiology. Hospital Course to Date: 04/18: Severely acidotic this am, now on bcarb gtt. On high dose pressors- Levophed and Vaso. Afib in control rate on the monitor, on Amiodarone and heparin gtt per protocol. Cardiology is following. Patient remains afebrile and leukocytosis improved this am. Now with worsen renal function and low UOP. Patient's EF is 25 to 30%, Dobutamine gtt initiated. Continue current IV abx, continue to trend troponin and lactic acid. Nephrology also consulted for further recs. BLE swelling noted, BLE doppler ordered to r/o DVT. 04/19: Agitation with low SPO2 overnight, sedation increased. This am ABG with worsen hypoxia on 40% Fio2, SPO2 at 90% this am. Fio2 increased to 50%, SPO2 improved above 92%. Remains on multiple pressors and bcarb gtt. Now on dopamine gtt, in Afib with RVR on the monitor. Still on Amiodarone and heparin gtts. Echo noted, EF 15 to 20%. Cardiology is following. With worsen renal function, however making urine this am. No indication for AERIAL SPRAYER at this per Nephro. Will continue to monitor. Monitor and replace electrolytes as needed 04/20: Nephrology spoke to at bedside re HD, cardiology will proceed with [facility] if patient is to recieve HD post procedure, vent changes per [facility], Sedated with fentanyl and propofol with heparin and amio gtt infusing. 04/21: LHC today. Nephrology will continue IVF and if renal function worsens then will proceed HD with consent from family. Patient became hypoxic with FiO2 at 40% yesterday evening and is currently at 65%. Hospitalist Physical - Constitutional Vitals: Temp Pulse Resp BP Pulse Ox 98 F 79 16 95/66 95 04/21/22 08:00 04/21/22 11:00 04/21/22 11:00 04/21/22 11:00 04/21/22 11:16 General appearance: Present: no acute distress, other (Intubated and Sedated) - EENT Eyes: Present: PERRL ENT: dentition normal - Neck Neck: Absent: masses or JVD, cervical LAD - Respiratory Respiratory effort: normal Respiratory: bilateral: diminished - Cardiovascular Rhythm: regular Heart Sounds: Present: S1 & S2 - Extremities Extremities: no ischemia, pulses intact, pulses symmetrical, normal temperature, normal color Extremity abnormal: edema Peripheral Pulses: within normal limits - Abdominal General gastrointestinal: soft, non-tender, non-distended, normal bowel sounds - Integumentary Integumentary: Present: warm, dry - Psychiatric Psychiatric: other - Neurologic Neurologic: other (intact cough/gag, perrl) - Allied Health Allied health notes reviewed: nursing, RT, social work HEART Score - HEART Score Troponin: Troponin T 2.980 ng/mL (0.00-0.029) H* 04/19/22 07:11 Results - Labs CBC & Chem 7: 04/21/22 04:30 04/21/22 04:30 Labs: Laboratory Last Values WBC 17.9 K/mm3 (4.5-11.0) H 04/21/22 04:30 RBC 3.95 M/mm3 (3.65-5.03) 04/21/22 04:30 Hgb 11.7 gm/dl (11.8-15.2) L 04/21/22 04:30 Hct 35.1 % (35.5-45.6) L 04/21/22 04:30 MCV 89 fl (84-94) 04/21/22 04:30 MCH 30 pg (28-32) 04/21/22 04:30 MCHC 33 % (32-34) 04/21/22 04:30 RDW 15.2 % (13.2-15.2) 04/21/22 04:30 Plt Count 149 K/mm3 (140-440) 04/21/22 04:30 Lymph % (Auto) 23.0 % (13.4-35.0) 04/17/22 19:58 [place] % (Auto) 3.2 % (0.0-7.3) 04/18/22 Unknown Eos % (Auto) 0.1 % (0.0-4.3) 04/18/22 Unknown Baso % (Auto) 0.6 % (0.0-1.8) 04/17/22 19:58 Lymph # (Auto) 2.7 K/mm3 (1.2-5.4) 04/17/22 19:58 [place] # (Auto) 0.3 K/mm3 (0.0-0.8) 04/18/22 Unknown Eos # (Auto) 0.0 K/mm3 (0.0-0.4) 04/18/22 Unknown Baso # (Auto) 0.1 K/mm3 (0.0-0.1) 04/18/22 Unknown Add Manual Diff Complete 04/18/22 Unknown Total Counted 100 04/18/22 Unknown Seg Neutrophils % Linen Keeper 04/18/22 Unknown Seg Neuts % (Manual) 81.0 % (40.0-70.0) H 04/18/22 Unknown Band Neutrophils % 3.0 % 04/18/22 Unknown Lymphocytes % (Manual) 12.0 % (13.4-35.0) L 04/18/22 Unknown Reactive Lymphs % (Man) 0 % 04/18/22 Unknown Monocytes % (Manual) 2.0 % (0.0-7.3) 04/18/22 Unknown Eosinophils % (Manual) 0 % (0.0-4.3) 04/18/22 Unknown Basophils % (Manual) 0 % (0.0-1.8) 04/18/22 Unknown Metamyelocytes % 2.0 % 04/18/22 Unknown Myelocytes % 0 % 04/18/22 Unknown Promyelocytes % 0 % 04/18/22 Unknown Blast Cells % 0 % 04/18/22 Unknown Nucleated RBC % Not Reportable 04/18/22 Unknown Seg Neutrophils # 9.8 K/mm3 (1.8-7.7) H 04/18/22 Unknown Seg Neutrophils # Man 8.7 K/mm3 (1.8-7.7) H 04/18/22 Unknown Band Neutrophils # 0.3 K/mm3 04/18/22 Unknown Lymphocytes # (Manual) 1.3 K/mm3 (1.2-5.4) 04/18/22 Unknown Abs React Lymphs (Man) 0.0 K/mm3 04/18/22 Unknown Monocytes # (Manual) 0.2 K/mm3 (0.0-0.8) 04/18/22 Unknown Eosinophils # (Manual) 0.0 K/mm3 (0.0-0.4) 04/18/22 Unknown Basophils # (Manual) 0.0 K/mm3 (0.0-0.1) 04/18/22 Unknown Metamyelocytes # 0.2 K/mm3 04/18/22 Unknown Myelocytes # 0.0 K/mm3 04/18/22 Unknown Promyelocytes # 0.0 K/mm3 04/18/22 Unknown Blast Cells # 0.0 K/mm3 04/18/22 Unknown WBC Morphology Not Reportable 04/18/22 Unknown Hypersegmented Neuts Not Reportable 04/18/22 Unknown Hyposegmented Neuts Not Reportable 04/18/22 Unknown Hypogranular Neuts Not Reportable 04/18/22 Unknown Smudge Cells Not Reportable 04/18/22 Unknown Toxic Granulation 2+ 04/18/22 Unknown Toxic Vacuolation Not Reportable 04/18/22 Unknown Dohle Bodies Not Reportable 04/18/22 Unknown Pelger-Huet Anomaly Not Reportable 04/18/22 Unknown Regla Rods Not Reportable 04/18/22 Unknown Platelet Estimate Consistent w auto 04/18/22 Unknown Clumped Platelets Not Reportable 04/18/22 Unknown Plt Clumps, EDTA Not Reportable 04/18/22 Unknown Large Platelets Not Reportable 04/18/22 Unknown Giant Platelets Not Reportable 04/18/22 Unknown Platelet Satelliting Not Reportable 04/18/22 Unknown Plt Morphology Comment Not Reportable 04/18/22 Unknown RBC Morphology Not Reportable 04/18/22 Unknown Dimorphic RBCs Not Reportable 04/18/22 Unknown Polychromasia Not Reportable 04/18/22 Unknown Hypochromasia Not Reportable 04/18/22 Unknown Poikilocytosis Not Reportable 04/18/22 Unknown Anisocytosis Not Reportable 04/18/22 Unknown Microcytosis Not Reportable 04/18/22 Unknown Macrocytosis Not Reportable 04/18/22 Unknown Spherocytes Not Reportable 04/18/22 Unknown Pappenheimer Bodies Not Reportable 04/18/22 Unknown Sickle Cells Not Reportable 04/18/22 Unknown Target Cells Not Reportable 04/18/22 Unknown Tear Drop Cells Not Reportable 04/18/22 Unknown Ovalocytes Not Reportable 04/18/22 Unknown Helmet Cells Not Reportable 04/18/22 Unknown [place] Bodies Not Reportable 04/18/22 Unknown [place] Rings Not Reportable 04/18/22 Unknown [place] Cells Not Reportable 04/18/22 Unknown Bite Cells Not Reportable 04/18/22 Unknown Crenated Cell Not Reportable 04/18/22 Unknown Elliptocytes Not Reportable 04/18/22 Unknown Acanthocytes (Spur) Not Reportable 04/18/22 Unknown Rouleaux Not Reportable 04/18/22 Unknown Hemoglobin C Crystals Not Reportable 04/18/22 Unknown Schistocytes Not Reportable 04/18/22 Unknown Malaria parasites Not Reportable 04/18/22 Unknown [place] Bodies Not Reportable 04/18/22 Unknown Hem Pathologist Commnt No 04/18/22 Unknown PT 15.6 Sec. (12.2-14.9) H 04/18/22 Unknown INR 1.08 (0.87-1.13) 04/18/22 Unknown APTT 28.6 Sec. (24.2-36.6) 04/18/22 Unknown Heparin Anti-Xa Level 0.16 U.I./ml (0.3-0.7) L 04/21/22 04:00 ABG pH 7.350 pH Units (7.350-7.450) 04/20/22 21:40 ABG pCO2 55.0 mm Hg 04/20/22 21:40 ABG pO2 59.4 mm Hg (80.0-90.0) L 04/20/22 21:40 ABG HCO3 29.7 mmol/L (20.0-26.0) H 04/20/22 21:40 ABG O2 Saturation 90.1 % (95.0-99.0) L 04/20/22 21:40 ABG O2 Content 14.4 (0.0-44) 04/20/22 21:40 ABG Base Excess 3.1 mmol/L (-2.0-3.0) H 04/20/22 21:40 ABG Hemoglobin 11.6 gm/dl (14.0-18.0) L 04/20/22 21:40 ABG Carboxyhemoglobin 1.6 % (0.0-5.0) 04/20/22 21:40 ABG Methemoglobin 0.5 % (0.0-1.5) 04/20/22 21:40 Oxyhemoglobin 88.2 % (95.0-99.0) L 04/20/22 21:40 FiO2 50 % 04/20/22 21:40 Sodium 137 mmol/L (137-145) 04/21/22 04:30 Potassium 4.0 mmol/L (3.6-5.0) 04/21/22 04:30 Chloride 95.7 mmol/L (98-107) L 04/21/22 04:30 Carbon Dioxide 27 mmol/L (22-30) 04/21/22 04:30 Anion Gap 18 mmol/L 04/21/22 04:30 BUN 45 mg/dL (9-20) H 04/21/22 04:30 Creatinine 4.2 mg/dL (0.8-1.3) H 04/21/22 04:30 Estimated GFR 17 ml/min 04/21/22 04:30 BUN/Creatinine Ratio 11 % 04/21/22 04:30 Glucose 309 mg/dL (75-100) H 04/21/22 04:30 POC Glucose 265 mg/dL (70-105) H 04/21/22 05:57 Lactic Acid 1.90 mmol/L (0.7-2.0) 04/21/22 04:20 Calcium 7.4 mg/dL (8.4-10.2) L 04/21/22 04:30 Phosphorus 5.60 mg/dL (2.5-4.5) H D 04/21/22 04:30 Magnesium 2.50 mg/dL (1.7-2.3) H 04/21/22 04:30 Total Bilirubin 0.80 mg/dL (0.1-1.2) 04/21/22 04:30 AST 217 units/L (5-40) H 04/21/22 04:30 ALT 376 units/L (7-56) H 04/21/22 04:30 Alkaline Phosphatase 114 units/L (35-129) 04/21/22 04:30 Total Creatine Kinase 3019 units/L (55-170) H 04/20/22 04:12 CK-MB (CK-2) 28.5 ng/mL (0.0-4.0) H 04/19/22 07:11 CK-MB (CK-2) Rel Index 0.8 (0-4) 04/19/22 07:11 Troponin T 2.980 ng/mL (0.00-0.029) H* 04/19/22 07:11 Total Protein 6.4 g/dL (6.3-8.2) 04/21/22 04:30 Albumin 2.8 g/dL (3.9-5) L 04/21/22 04:30 Albumin/Globulin Ratio 0.8 % 04/21/22 04:30 Triglycerides 254 mg/dL (2-149) H 04/20/22 09:10 Cholesterol 106 mg/dL (50-199) 04/17/22 19:56 LDL Cholesterol Direct 57 mg/dL (50-130) 04/17/22 19:56 HDL Cholesterol 40 mg/dL (40-59) 04/17/22 19:56 Cholesterol/HDL Ratio 2.65 % 04/17/22 19:56 Procalcitonin > 200.00 ng/mL (<0.15) 04/19/22 07:17 Urine Color Yellow (Yellow) 04/19/22 02:08 Urine Turbidity Slightly cloudy (Clear) 04/19/22 02:08 Urine pH 5.0 (5.0-7.0) 04/19/22 02:08 Ur Specific [place] 1.005 (1.003-1.030) 04/19/22 02:08 Urine Protein 30 mg/dl mg/dL (Negative) 04/19/22 02:08 Urine Glucose (UA) Negative mg/dL (Negative) 04/19/22 02:08 Urine Ketones Negative mg/dL (Negative) 04/19/22 02:08 Urine Blood Large (Negative) A 04/19/22 02:08 Urine Nitrite Negative (Negative) 04/19/22 02:08 Ur Reducing Substances Not Reportable 04/19/22 02:08 Urine Bilirubin Negative (Negative) 04/19/22 02:08 Urine Ictotest Not Reportable 04/19/22 02:08 Urine Urobilinogen 0.2 mg/dL (<2.0) 04/19/22 02:08 Ur Leukocyte Esterase Negative (Negative) 04/19/22 02:08 Urine WBC (Auto) 88.0 /HPF (0.0-6.0) H 04/19/22 02:08 Urine RBC (Auto) 60.0 /HPF (0.0-6.0) 04/19/22 02:08 Urine Bacteria (Auto) 2+ /HPF (Negative) 04/19/22 02:08 Urine WBC Clumps 3+ /HPF 04/19/22 02:08 RBC Casts 34 /LPF 04/19/22 02:08 Urine Mucus 1+ /HPF 04/19/22 02:08 Urine Yeast (Budding) 3+ /HPF 04/19/22 02:08 Urine Eosinophils None seen (None Seen) 04/19/22 02:08 Urine Creatinine 90.9 mg/dL (0.1-20.0) H 04/19/22 02:08 Urine Sodium 54 mmol/L 04/19/22 02:08 Blood Type A POSITIVE 04/21/22 04:37 Antibody Screen Negative 04/21/22 04:37 Microbiology: Microbiology 04/17/22 21:42 Peripheral/Venous Blood Culture - Preliminary NO GROWTH AFTER 72 HOURS 04/17/22 21:42 Peripheral/Venous Blood Culture - Preliminary NO GROWTH AFTER 72 HOURS 04/18/22 08:57 Urine,Clean Catch Urine Culture - Final NO GROWTH AFTER 48 HOURS [place]/IV: Voiding Method Indwelling Catheter Active Medications - Current Medications Current Medications: Generic Name Dose Route Start Last Admin Trade Name Freq PRN Reason Stop Dose Admin Acetaminophen 650 mg 04/17/22 19:48 04/19/22 17:25 Acetaminophen 325 Mg Tab PO 650 mg Q6H PRN Administration Pain MILD(1-3)/Fever >100.5/CHE Albuterol 2.5 mg 04/17/22 19:48 Albuterol 2.5 Mg/3 Ml Nebu IH Q3HRT PRN Shortness Of Breath Aspirin 81 mg 04/20/22 12:00 04/21/22 09:13 Aspirin 81 Mg Tab Chew FEEDTUBE 81 mg QDAY FLACO Administration Atorvastatin Calcium 20 mg 04/20/22 22:00 04/20/22 21:00 Atorvastatin 20 Mg Tab FEEDTUBE 20 mg QHS FLACO Administration Dextrose 0 ml 04/17/22 23:46 Dextrose 50% In Water (25gm) 50 Ml Syringe IV Q30MIN PRN Hypoglycemia Protocol Famotidine 20 mg 04/20/22 10:00 04/21/22 09:13 Famotidine 20 Mg Tab FEEDTUBE 20 mg DAILY FLACO Administration Fentanyl 50 mcg 04/17/22 20:22 04/18/22 03:52 Fentanyl 100 Mcg/2 Ml Inj IV 50 mcg Q10MIN PRN Administration ANALGESIA Hydrophilic Ointment 1 applic 04/18/22 06:02 Lip Therapy Vaseline TP Q2HR PRN Dry Lips Amiodarone HCl 900 mg/ 500 mls @ 33.333 mls/hr 04/17/22 20:00 04/20/22 21:22 Dextrose IV 0.5 mg/min DIRECT FLACO 16.667 mls/hr Titration Protocol 1 MG/MIN NORepinephrine/NS 8 MG-250 ML 8 mg in 250 mls @ 3.75 mls/hr 04/17/22 21:00 04/20/22 21:22 Norepinephrine/Ns 8 Mg-250 Ml (Double Conc) IV 0 mcg/min TITRATE FLACO 0 mls/hr Titration Protocol 2 MCG/MIN Fentanyl Citrate 2,000 mcg in 100 mls @ 5.443 mls/hr 04/17/22 21:00 04/21/22 07:47 Fentanyl Drip Premix IV 2 mcg/kg/hr TITR FLACO 10.886 mls/hr Administration Protocol 1 MCG/KG/HR Vasopressin 20 unit/ Sodium 101 mls @ 9.09 mls/hr 04/17/22 23:45 04/20/22 21:22 Chloride IV 0 units/min TITR FLACO 0 mls/hr Titration Protocol 0.03 UNITS/MIN Heparin Sodium/Sodium Chloride 25,000 unit in 500 mls @ 20 mls/hr 04/18/22 06:00 04/21/22 07:48 Heparin/ 0.45% Nacl-25,000 Unit/500 Ml IV 1,400 units/hr TITRATE FLACO 28 mls/hr Administration Protocol 1,000 UNITS/HR Propofol 1,000 mg in 100 mls @ 3.456 mls/hr 04/18/22 07:00 04/21/22 07:53 Diprivan 10 Mg/Ml IV 25 mcg/kg/min TITR FLACO 17.28 mls/hr Titration Protocol 5 MCG/KG/MIN Phenylephrine HCl 100 mg/ 100 mls @ 3 mls/hr 04/18/22 07:30 Sodium Chloride IV TITR FLACO Protocol 50 MCG/MIN Dopamine HCl/Dextrose 800 mg in 250 mls @ 4.32 mls/hr 04/19/22 02:00 04/20/22 21:22 Dopamine 800 Mg/D5w 250ml IV 0 mcg/kg/min TITR FLACO 0 mls/hr Titration Protocol 2 MCG/KG/MIN Levofloxacin/Dextrose 500 mg in 100 mls @ 100 mls/hr 04/20/22 22:00 04/20/22 22:00 Levaquin 500mg/100ml IV 04/25/22 21:59 Infused Q48H FLACO Infusion Protocol Sodium Chloride 1,000 mls @ 125 mls/hr 04/21/22 12:00 Nacl 0.9% 1000 Ml IV DIRECT FLACO Insulin Glargine 20 units 04/19/22 22:00 04/20/22 21:03 Insulin Glargine 100 Units/Ml SUB-Q 20 units QHS [facility] Administration Insulin Human Lispro 0 unit 04/18/22 00:00 04/21/22 05:58 Insulin Lispro 100 Unit/Ml SUB-Q 6 unit Q6HR FLACO Administration Protocol Multi-Ingred Cream/Lotion/Oil/Oint 1 applic 04/18/22 06:02 Mineral Oil/Petrolatum, White Ophth Oint 3.5 Gm OU Q4HR PRN Dry Eye(s) Oxycodone/Acetaminophen 1 tab 04/17/22 19:48 Oxycodone /Acetaminophen 5-325mg Tab PO Q16H PRN Pain, Moderate (4-6) Senna/Docusate Sodium 1 tab 04/18/22 10:00 04/21/22 09:13 Sennosides/Docusate Sodium 8.6/50 Mg Tab FEEDTUBE 1 tab BID FLACO Administration Sodium Chloride 10 ml 04/17/22 22:00 04/21/22 09:14 Sodium Chloride 0.9% 10 Ml Flush Syringe IV 10 ml BID FLACO Administration Sodium Chloride 10 ml 04/17/22 19:48 Sodium Chloride 0.9% 10 Ml Flush Syringe IV PRN PRN LINE FLUSH Nutrition/Malnutrition Assess - Dietary Evaluation Nutrition/Malnutrition Findings: Nutrition Notes Start: 04/18/22 08:52 Freq: Status: Active Protocol: Document 04/20/22 12:22 ROMELIA (Rec: 04/20/22 13:18 ROMELIA [id number]) Nutrition Notes Initial or Follow up Reassessment Current Diagnosis Acute Kidney Injury,Diabetes, Sepsis,Hypertension, Respiratory Failure Other Pertinent Diagnosis s/p PEA w/ROSC, HFrEF, Pneumonia, Metabolic Acidosis, Cardiogenic Shock, .. Current Diet Glucerna @ 65 ml/hr (04/18)TF- Nepro w/CARBSTEADY @ 35 ml/hr (from D 04/20). Labs/Tests 04/20: Na 133, K 3.5, Cl 91.9, BUN 44, Crea 4.6, Glu 236, Ca 7.2. Pertinent Medications 04/20: Lantus 20U, Humalog 6U, Propofol @ 20.736ml/hr (547 Kcal), Vasopressin 20U, others nutritionally unremarkable. Height 5 ft 9 in Weight 115.2 kg [place] Body Weight (kg) 72.72 BMI 37.5 Intake Prior to Admission Good Weight change and time frame Pt deniues having loss body weight [employer]. No body weight change reported in 2 days. Weight Status Obese Subjective/Other Information RD consult for TF tolerance/ continuation assessment. TF continues as prescribed, no further information available at the time. I will change TF formula due to worsening of Pt's VINCENT condition. Pt continues on Mechanical Ventilation, O2 saturation @ 98%, according to Physical Assessment History notes. Percent of energy/protein needs met: New prescribed TF-Nepro w/ CARBSTEADY @ 35 ml/hr provides for energy/protein needs (1, 500 Kcal/68 g) during LOS, 77% Kcal; 90% AA. Including 547 Kcal from Propofol: 105% Kcal; 90% AA. Burn Absent Trauma Absent GI Symptoms None Food Allergy No Skin Integrity/Comment Assessment WNL. Current % PO Other Minimum of two criteria No Fluid Accumulation N/A Reduced [place] Strength N/A (non-severe) Protein-Calorie Malnutrition N\A #2 Nutrition Diagnosis Altered nutrition-related laboratory values Etiology VINCENT. As Evidenced by Signs and Symptoms 04/20: Na 133, K 3.5, Cl 91.9, BUN 44, Crea 4.6, Glu 236, Ca 7.2. #1 Nutrition Diagnosis Inadequate oral intake Comments: Pt continues on Mechanical Ventilation, O2 saturation @ 98%, according to Physical Assessment History notes. Diagnosis Progress(for reassessment Continues documentation) Is patient on ventilator? Yes Is Patient Ambulatory and/or Out of Bed No REE-([facility]-confined to bed) 2323.608 Kcal/Kg value to use for calculation 17 Approximate Energy Requirements Using 1958 kcal/Kg Calculation Used for Recommendations Kcal/kg Additional Notes Protein: 0.8-1.2 g/Kg AdjBW; 75-113 g/day. Fluids: 1 ml/Kcal, or as per MD. Nutrition Intervention Nutrition Support: Change formula to TF-Nepro w/ CARBSTEADY @ 35 ml/hr. Flush: 220 ml water Q 4 hr, or as per MD. Kcal 1,500 Protein (gm) 68 Carbohydrates (gm) 134 Fat (gm) 80 Fluid (mL) 606 Fiber (gm) 11 % RDI: 77% Kcal; 90% AA. Goal #1 Provide at least 75% of energy /protein needs through Enteral Feeding during LOS. Follow-Up By: 04/22/22 Additional Comments Continue monitoring TF tolerance, ventilation status, vasopressors, and BM.
--- NOTE | 2022-04-21 12:49 | Event Note ---
Date: 04/21/22 Patient underwent cardiac catheterization, completed via the right femoral approach, no complications. We found no significant coronary artery disease, patent coronary arteries with mild luminal irregularities. The procedure was completed with 25 cc of Visipaque. Based on the echocardiographic findings, patient has a severe nonischemic cardiomyopathy, which presumably resulted in a primary cardiac arrest. Recommendations: 1. IV hydration at with normal saline 75 cc overnight, follow creatinine levels. 2. IV hydration should be done judiciously due to underlying severe left ventricular dysfunction. 3. Stopped IV heparin, switch amiodarone to 200 mg twice daily. When blood pressure tolerates, he will need optimal medical therapy for afterload, beta- blockers, and long-term oral anticoagulation. 4. Eventually from a cardiac standpoint, will need predischarge device therapy for secondary prevention of SCD, once he is off the vent and clinical status is optimized. 5. Defer to ICU team and nephrology for management of acute noncardiac issues.
[2022-04-21] MEDS ORDERED: METOPROLOL TARTRATE 5 MG/5 ML INJ IV PRN (12:54)
--- NOTE | 2022-04-21 13:22 | Cardiac Catherization Report ---
DATE OF SERVICE: 04/21/2022 CARDIAC CATHETERIZATION REPORT REASON FOR PROCEDURE: The patient is a 62-year-old man admitted to the hospital following an [id number] cardiac arrest. An echocardiogram demonstrated a severe four-chamber dilated cardiomyopathy with left ventricular ejection fraction 15-20%. He was recommended for cardiac catheterization to rule out an ischemic basis for his cardiomyopathy and cardiac arrest. Prior to the procedure, the patient developed as part of his symptom complex acute renal failure with creatinine rising from 1.6 on presentation to currently 4.2. The patient remains on the vent, on respiratory support, but has been successfully weaned off of intravenous pressors. Risks and benefits of the contrast angiography were discussed with the patient's including high risk of contrast nephropathy and the need for emergency dialysis. The patient's understood the risks and consented to proceed. The strategy was for limited coronary angiography using Visipaque. DESCRIPTION OF PROCEDURE: The patient was prepped and draped in a sterile fashion after informed consent from the patient's . The right femoral artery was entered using Seldinger technique followed by placement of a 6-Kittitian sheath. Selective left and right coronary angiography was performed using #4 left Gregorio and #4 right Gregorio. The catheters were then removed, sheath removed and hemostasis achieved using an Angio-Seal device. The patient was returned to the postprocedure unit in stable condition. There were no complications. FINDINGS: HEMODYNAMICS: Ascending aortic pressure was 105/70. CORONARY ANGIOGRAPHY: Left main coronary artery was angiographically normal. The left anterior descending artery and its diagonal branches were free of significant disease. There was delayed contrast perfusion of the small caliber second obtuse marginal branch of the circumflex, otherwise the circumflex artery and its obtuse marginal branches contained mild luminal irregularities. No focal obstructive lesions were noted in the circumflex system. The right coronary artery was dominant and contained mild luminal irregularities. The total contrast used for the procedure was 25 mL of Visipaque. CONCLUSION: 1. No significant obstructive coronary artery disease, mild luminal irregularities reported above. 2. Total contrast 25 mL of Visipaque. 3. Based on the echocardiographic assessment of left ventricular function, the patient is recommended for medical management of nonischemic cardiomyopathy. 4. Based on his presentation, he will need ICD implant for secondary prevention. TID: [id number] RECEIPT: [id number] CA/PRE
[2022-04-21] MEDS: AMIODARONE 200 MG TAB PO SCH ×2 (13:57→21:21)
--- NOTE | 2022-04-21 15:46 | Consultation ---
History of Present Illness Consult date: 04/21/22 Reason for Consult: Unresponsive History of present illness: The patient is on vent , per nurse wakes up when medications are less . Past History Past Medical History: diabetes, hypertension, other (See HPI) Past Surgical History: No surgical history, Other (Reviewed) Social history: . denies: smoking, alcohol abuse Family history: diabetes, hypertension Medications and Allergies Allergies Allergy/AdvReac Type Severity Reaction Status Date / Time No Known Allergies Allergy Unverified 04/17/22 19:30 Active Meds: Active Medications Acetaminophen (Acetaminophen 325 Mg Tab) 650 mg PO Q6H PRN PRN Reason: Pain MILD(1-3)/Fever >100.5/CHE Last Admin: 04/19/22 17:25 Dose: 650 mg Albuterol (Albuterol 2.5 Mg/3 Ml Nebu) 2.5 mg IH Q3HRT PRN PRN Reason: Shortness Of Breath Amiodarone HCl (Amiodarone 200 Mg Tab) 200 mg PO BID REPLACED BY [facility] Last Admin: 04/21/22 13:57 Dose: 200 mg Aspirin (Aspirin 81 Mg Tab Chew) 81 mg FEEDTUBE QDAY FLACO Last Admin: 04/21/22 09:13 Dose: 81 mg Atorvastatin Calcium (Atorvastatin 20 Mg Tab) 20 mg FEEDTUBE QHS REPLACED BY [facility] Last Admin: 04/20/22 21:00 Dose: 20 mg Dextrose (Dextrose 50% In Water (25gm) 50 Ml Syringe) 0 ml IV Q30MIN PRN; Protocol PRN Reason: Hypoglycemia Famotidine (Famotidine 20 Mg Tab) 20 mg FEEDTUBE DAILY REPLACED BY [facility] Last Admin: 04/21/22 09:13 Dose: 20 mg Fentanyl (Fentanyl 100 Mcg/2 Ml Inj) 50 mcg IV Q10MIN PRN PRN Reason: ANALGESIA Last Admin: 04/18/22 03:52 Dose: 50 mcg Heparin Sodium (Porcine) (Heparin 5,000 Unit/1 Ml Vial) 5,000 unit SUB-Q Q12HR REPLACED BY [facility] Hydrophilic Ointment (Lip Therapy Vaseline) 1 applic TP Q2HR PRN PRN Reason: Dry Lips NORepinephrine/NS 8 MG-250 ML (Norepinephrine/Ns 8 Mg-250 Ml (Double Conc)) 8 mg in 250 mls @ 3.75 mls/hr IV TITRATE FLACO; Protocol Last Titration: 04/20/22 21:22 Dose: 0 mcg/min, 0 mls/hr Fentanyl Citrate (Fentanyl Drip Premix) 2,000 mcg in 100 mls @ 5.443 mls/hr IV TITR FLACO; Protocol Last Admin: 04/21/22 07:47 Dose: 2 mcg/kg/hr, 10.886 mls/hr Propofol (Diprivan 10 Mg/Ml) 1,000 mg in 100 mls @ 3.456 mls/hr IV TITR FLACO; Protocol Last Admin: 04/21/22 13:20 Dose: 25 mcg/kg/min, 17.28 mls/hr Phenylephrine HCl 100 mg/ (Sodium Chloride) 100 mls @ 3 mls/hr IV TITR FLACO; Protocol Dopamine HCl/Dextrose (Dopamine 800 Mg/D5w 250ml) 800 mg in 250 mls @ 4.32 mls/hr IV TITR FLACO; Protocol Last Titration: 04/20/22 21:22 Dose: 0 mcg/kg/min, 0 mls/hr Levofloxacin/Dextrose (Levaquin 500mg/100ml) 500 mg in 100 mls @ 100 mls/hr IV Q48H FLACO; Protocol Stop: 04/25/22 21:59 Last Infusion: 04/20/22 22:00 Dose: Infused Sodium Chloride (Nacl 0.9% 1000 Ml) 1,000 mls @ 75 mls/hr IV DIRECT FLACO Stop: 04/22/22 11:59 Last Admin: 04/21/22 13:51 Dose: 75 mls/hr Vasopressin 20 unit/ Sodium (Chloride) 101 mls @ 12.12 mls/hr IV DIRECT FLACO Insulin Glargine (Insulin Glargine 100 Units/Ml) 20 units SUB-Q QHS FLACO Last Admin: 04/20/22 21:03 Dose: 20 units Insulin Human Lispro (Insulin Lispro 100 Unit/Ml) 0 unit SUB-Q Q6HR FLACO; Protocol Last Admin: 04/21/22 13:51 Dose: 4 unit Metoprolol Tartrate (Metoprolol Tartrate 5 Mg/5 Ml Inj) 2.5 mg IV Q6HR PRN PRN Reason: HR>130 Multi-Ingred Cream/Lotion/Oil/Oint (Mineral Oil/Petrolatum, White Ophth Oint 3.5 Gm) 1 applic OU Q4HR PRN PRN Reason: Dry Eye(s) Oxycodone/Acetaminophen (Oxycodone /Acetaminophen 5-325mg Tab) 1 tab PO Q16H PRN PRN Reason: Pain, Moderate (4-6) Senna/Docusate Sodium (Sennosides/Docusate Sodium 8.6/50 Mg Tab) 1 tab FEEDTUBE BID REPLACED BY [facility] Last Admin: 04/21/22 09:13 Dose: 1 tab Sodium Chloride (Sodium Chloride 0.9% 10 Ml Flush Syringe) 10 ml IV BID REPLACED BY [facility] Last Admin: 04/21/22 09:14 Dose: 10 ml Sodium Chloride (Sodium Chloride 0.9% 10 Ml Flush Syringe) 10 ml IV PRN PRN PRN Reason: LINE FLUSH Physical Examination - Vital Signs Vital Signs: Vital Signs Temp Pulse Resp BP Pulse Ox 98 F 127 H 20 162/104 76 L 04/17/22 19:01 04/17/22 19:01 04/17/22 19:01 04/17/22 19:01 04/17/22 19:01 - Physical Exam Narrative exam: The patient has good gag reflex , moves all 4 extremity, per nurse when the sedation is less patient tries to wake up . Results - Laboratory Findings CBC and BMP: 04/21/22 04:30 04/21/22 04:30 Abnormal Lab Findings: Abnormal Labs 04/17/22 04/17/22 04/17/22 19:18 19:55 19:56 WBC RBC Hgb Hct Seg Neutrophils % Seg Neuts % (Manual) Lymphocytes % (Manual) Seg Neutrophils # Seg Neutrophils # Man PT Heparin Anti-Xa Level ABG pH 7.120 L* ABG pO2 45.3 L ABG HCO3 18.5 L ABG O2 Saturation 68.3 L ABG Base Excess -11.5 L ABG Hemoglobin Oxyhemoglobin 66.8 L Sodium Potassium Chloride 94.2 L Carbon Dioxide 17 L BUN Creatinine 1.6 H Glucose 315 H POC Glucose 277 H Lactic Acid Calcium Phosphorus Magnesium AST 529 H ALT 318 H Alkaline Phosphatase 137 H Total Creatine Kinase 398 H CK-MB (CK-2) 17.9 H CK-MB (CK-2) Rel Index 4.4 H Troponin T 0.205 H* Total Protein Albumin Triglycerides Urine Blood Urine WBC (Auto) Urine Creatinine 04/17/22 04/17/22 04/17/22 19:58 19:58 21:42 WBC 11.9 H RBC 5.17 H Hgb 15.5 H Hct 48.0 H Seg Neutrophils % 71.7 H Seg Neuts % (Manual) Lymphocytes % (Manual) Seg Neutrophils # 8.5 H Seg Neutrophils # Man PT Heparin Anti-Xa Level ABG pH ABG pO2 ABG HCO3 ABG O2 Saturation ABG Base Excess ABG Hemoglobin Oxyhemoglobin Sodium Potassium Chloride 95.0 L Carbon Dioxide 19 L BUN Creatinine 1.5 H Glucose 306 H POC Glucose Lactic Acid Calcium Phosphorus Magnesium AST ALT Alkaline Phosphatase Total Creatine Kinase 412 H CK-MB (CK-2) 19.2 H CK-MB (CK-2) Rel Index 4.6 H Troponin T 0.285 H* D Total Protein Albumin Triglycerides Urine Blood Urine WBC (Auto) Urine Creatinine 04/17/22 04/18/22 04/18/22 21:42 00:40 01:07 WBC RBC Hgb Hct Seg Neutrophils % Seg Neuts % (Manual) Lymphocytes % (Manual) Seg Neutrophils # Seg Neutrophils # Man PT Heparin Anti-Xa Level ABG pH ABG pO2 ABG HCO3 ABG O2 Saturation ABG Base Excess ABG Hemoglobin Oxyhemoglobin Sodium Potassium Chloride Carbon Dioxide BUN Creatinine Glucose POC Glucose 320 H Lactic Acid 7.90 H* 7.90 H* Calcium Phosphorus Magnesium AST ALT Alkaline Phosphatase Total Creatine Kinase CK-MB (CK-2) CK-MB (CK-2) Rel Index Troponin T Total Protein Albumin Triglycerides Urine Blood Urine WBC (Auto) Urine Creatinine 04/18/22 04/18/22 04/18/22 01:07 04:00 06:04 WBC RBC Hgb Hct Seg Neutrophils % Seg Neuts % (Manual) Lymphocytes % (Manual) Seg Neutrophils # Seg Neutrophils # Man PT Heparin Anti-Xa Level < 0.10 L ABG pH ABG pO2 ABG HCO3 ABG O2 Saturation ABG Base Excess ABG Hemoglobin Oxyhemoglobin Sodium Potassium Chloride Carbon Dioxide BUN Creatinine Glucose POC Glucose 305 H Lactic Acid Calcium Phosphorus Magnesium AST ALT Alkaline Phosphatase Total Creatine Kinase 488 H CK-MB (CK-2) 25.3 H CK-MB (CK-2) Rel Index 5.1 H Troponin T 0.665 H* D Total Protein Albumin Triglycerides Urine Blood Urine WBC (Auto) Urine Creatinine 04/18/22 04/18/22 04/18/22 06:20 11:10 12:48 WBC RBC Hgb Hct Seg Neutrophils % Seg Neuts % (Manual) Lymphocytes % (Manual) Seg Neutrophils # Seg Neutrophils # Man PT Heparin Anti-Xa Level < 0.10 L ABG pH 7.119 L* 7.304 L ABG pO2 56.1 L 103.5 H ABG HCO3 18.4 L 14.4 L ABG O2 Saturation 80.7 L ABG Base Excess -11.4 L -10.6 L ABG Hemoglobin 13.5 L Oxyhemoglobin 79.2 L Sodium Potassium Chloride Carbon Dioxide BUN Creatinine Glucose POC Glucose Lactic Acid Calcium Phosphorus Magnesium AST ALT Alkaline Phosphatase Total Creatine Kinase CK-MB (CK-2) CK-MB (CK-2) Rel Index Troponin T Total Protein Albumin Triglycerides Urine Blood Urine WBC (Auto) Urine Creatinine 04/18/22 04/18/22 04/18/22 13:13 16:00 16:00 WBC RBC Hgb Hct Seg Neutrophils % Seg Neuts % (Manual) Lymphocytes % (Manual) Seg Neutrophils # Seg Neutrophils # Man PT Heparin Anti-Xa Level ABG pH ABG pO2 ABG HCO3 ABG O2 Saturation ABG Base Excess ABG Hemoglobin Oxyhemoglobin Sodium Potassium Chloride Carbon Dioxide BUN Creatinine Glucose POC Glucose 334 H Lactic Acid 7.00 H* Calcium Phosphorus 5.70 H Magnesium 1.30 L AST ALT Alkaline Phosphatase Total Creatine Kinase 969 H CK-MB (CK-2) 55.9 H CK-MB (CK-2) Rel Index 5.7 H Troponin T 1.580 H* D Total Protein Albumin Triglycerides Urine Blood Urine WBC (Auto) Urine Creatinine 04/18/22 04/18/22 04/18/22 16:00 18:00 18:01 WBC RBC Hgb Hct Seg Neutrophils % Seg Neuts % (Manual) Lymphocytes % (Manual) Seg Neutrophils # Seg Neutrophils # Man PT Heparin Anti-Xa Level < 0.10 L ABG pH ABG pO2 ABG HCO3 ABG O2 Saturation ABG Base Excess ABG Hemoglobin Oxyhemoglobin Sodium 136 L Potassium 6.3 H* D Chloride 97.6 L Carbon Dioxide 18 L BUN 34 H Creatinine 3.5 H Glucose 409 H POC Glucose 397 H Lactic Acid Calcium 6.8 L Phosphorus Magnesium AST ALT Alkaline Phosphatase Total Creatine Kinase CK-MB (CK-2) CK-MB (CK-2) Rel Index Troponin T Total Protein Albumin Triglycerides Urine Blood Urine WBC (Auto) Urine Creatinine 04/18/22 04/18/22 04/18/22 19:13 20:58 21:22 WBC RBC Hgb Hct Seg Neutrophils % Seg Neuts % (Manual) Lymphocytes % (Manual) Seg Neutrophils # Seg Neutrophils # Man PT Heparin Anti-Xa Level ABG pH 7.502 H ABG pO2 144.5 H ABG HCO3 ABG O2 Saturation ABG Base Excess ABG Hemoglobin 12.5 L Oxyhemoglobin Sodium Potassium Chloride Carbon Dioxide BUN Creatinine Glucose POC Glucose 321 H 307 H Lactic Acid Calcium Phosphorus Magnesium AST ALT Alkaline Phosphatase Total Creatine Kinase CK-MB (CK-2) CK-MB (CK-2) Rel Index Troponin T Total Protein Albumin Triglycerides Urine Blood Urine WBC (Auto) Urine Creatinine 04/18/22 04/18/22 04/18/22 21:30 21:30 Unknown WBC RBC Hgb Hct Seg Neutrophils % Seg Neuts % (Manual) 81.0 H Lymphocytes % (Manual) 12.0 L Seg Neutrophils # 9.8 H Seg Neutrophils # Man 8.7 H PT Heparin Anti-Xa Level ABG pH ABG pO2 ABG HCO3 ABG O2 Saturation ABG Base Excess ABG Hemoglobin Oxyhemoglobin Sodium Potassium Chloride 96.6 L Carbon Dioxide BUN 37 H Creatinine 3.6 H Glucose 312 H POC Glucose Lactic Acid 5.50 H* Calcium 7.3 L Phosphorus Magnesium AST ALT Alkaline Phosphatase Total Creatine Kinase CK-MB (CK-2) CK-MB (CK-2) Rel Index Troponin T Total Protein Albumin Triglycerides Urine Blood Urine WBC (Auto) Urine Creatinine 04/18/22 04/18/22 04/19/22 Unknown Unknown 00:35 WBC RBC Hgb Hct Seg Neutrophils % Seg Neuts % (Manual) Lymphocytes % (Manual) Seg Neutrophils # Seg Neutrophils # Man PT 15.6 H Heparin Anti-Xa Level ABG pH ABG pO2 ABG HCO3 ABG O2 Saturation ABG Base Excess ABG Hemoglobin Oxyhemoglobin Sodium Potassium Chloride Carbon Dioxide 18 L BUN 26 H Creatinine 2.5 H D Glucose 330 H POC Glucose Lactic Acid Calcium 7.9 L Phosphorus Magnesium AST 463 H ALT 249 H Alkaline Phosphatase Total Creatine Kinase CK-MB (CK-2) CK-MB (CK-2) Rel Index Troponin T 2.670 H* D Total Protein Albumin 3.3 L Triglycerides Urine Blood Urine WBC (Auto) Urine Creatinine 08/07/22 08/07/22 08/07/22 00:39 02:08 02:08 WBC RBC Hgb Hct Seg Neutrophils % Seg Neuts % (Manual) Lymphocytes % (Manual) Seg Neutrophils # Seg Neutrophils # Man PT Heparin Anti-Xa Level ABG pH ABG pO2 ABG HCO3 ABG O2 Saturation ABG Base Excess ABG Hemoglobin Oxyhemoglobin Sodium Potassium Chloride Carbon Dioxide BUN Creatinine Glucose POC Glucose 263 H Lactic Acid Calcium Phosphorus Magnesium AST ALT Alkaline Phosphatase Total Creatine Kinase CK-MB (CK-2) CK-MB (CK-2) Rel Index Troponin T Total Protein Albumin Triglycerides Urine Blood Large A Urine WBC (Auto) 88.0 H Urine Creatinine 90.9 H 04/19/22 04/19/22 04/19/22 02:08 03:45 03:45 WBC 14.2 H RBC Hgb Hct Seg Neutrophils % Seg Neuts % (Manual) Lymphocytes % (Manual) Seg Neutrophils # Seg Neutrophils # Man PT Heparin Anti-Xa Level 0.18 L ABG pH ABG pO2 ABG HCO3 ABG O2 Saturation ABG Base Excess ABG Hemoglobin Oxyhemoglobin Sodium Potassium Chloride 94.2 L Carbon Dioxide BUN 39 H Creatinine 3.8 H Glucose 243 H POC Glucose Lactic Acid Calcium 7.1 L Phosphorus Magnesium 1.50 L AST 380 H ALT 289 H Alkaline Phosphatase Total Creatine Kinase CK-MB (CK-2) CK-MB (CK-2) Rel Index Troponin T Total Protein 5.4 L Albumin 2.5 L Triglycerides Urine Blood Urine WBC (Auto) Urine Creatinine 04/19/22 04/19/22 04/19/22 03:45 06:01 07:11 WBC RBC Hgb Hct Seg Neutrophils % Seg Neuts % (Manual) Lymphocytes % (Manual) Seg Neutrophils # Seg Neutrophils # Man PT Heparin Anti-Xa Level ABG pH ABG pO2 ABG HCO3 ABG O2 Saturation ABG Base Excess ABG Hemoglobin Oxyhemoglobin Sodium Potassium Chloride Carbon Dioxide BUN Creatinine Glucose POC Glucose 165 H Lactic Acid 4.00 H* Calcium Phosphorus Magnesium AST ALT Alkaline Phosphatase Total Creatine Kinase 3270 H CK-MB (CK-2) 28.5 H CK-MB (CK-2) Rel Index Troponin T 2.980 H* Total Protein Albumin Triglycerides Urine Blood Urine WBC (Auto) Urine Creatinine 04/19/22 04/19/22 04/19/22 07:50 08:50 12:49 WBC RBC Hgb Hct Seg Neutrophils % Seg Neuts % (Manual) Lymphocytes % (Manual) Seg Neutrophils # Seg Neutrophils # Man PT Heparin Anti-Xa Level ABG pH 7.471 H ABG pO2 58.9 L ABG HCO3 27.1 H ABG O2 Saturation 91.7 L ABG Base Excess 3.4 H ABG Hemoglobin 12.2 L Oxyhemoglobin 90.0 L Sodium Potassium Chloride Carbon Dioxide BUN Creatinine Glucose POC Glucose 331 H Lactic Acid 3.40 H* Calcium Phosphorus Magnesium AST ALT Alkaline Phosphatase Total Creatine Kinase CK-MB (CK-2) CK-MB (CK-2) Rel Index Troponin T Total Protein Albumin Triglycerides Urine Blood Urine WBC (Auto) Urine Creatinine 04/19/22 04/19/22 04/19/22 16:15 19:25 21:17 WBC RBC Hgb Hct Seg Neutrophils % Seg Neuts % (Manual) Lymphocytes % (Manual) Seg Neutrophils # Seg Neutrophils # Man PT Heparin Anti-Xa Level ABG pH ABG pO2 ABG HCO3 ABG O2 Saturation ABG Base Excess ABG Hemoglobin Oxyhemoglobin Sodium Potassium Chloride Carbon Dioxide BUN Creatinine Glucose POC Glucose 304 H 251 H Lactic Acid 4.00 H* Calcium Phosphorus Magnesium AST ALT Alkaline Phosphatase Total Creatine Kinase CK-MB (CK-2) CK-MB (CK-2) Rel Index Troponin T Total Protein Albumin Triglycerides Urine Blood Urine WBC (Auto) Urine Creatinine 04/19/22 04/20/22 04/20/22 23:00 04:12 04:12 WBC 12.2 H RBC Hgb 11.6 L Hct 35.3 L Seg Neutrophils % Seg Neuts % (Manual) Lymphocytes % (Manual) Seg Neutrophils # Seg Neutrophils # Man PT Heparin Anti-Xa Level 0.15 L ABG pH ABG pO2 ABG HCO3 ABG O2 Saturation ABG Base Excess ABG Hemoglobin Oxyhemoglobin Sodium Potassium Chloride Carbon Dioxide BUN Creatinine Glucose POC Glucose 236 H Lactic Acid Calcium Phosphorus Magnesium AST ALT Alkaline Phosphatase Total Creatine Kinase CK-MB (CK-2) CK-MB (CK-2) Rel Index Troponin T Total Protein Albumin Triglycerides Urine Blood Urine WBC (Auto) Urine Creatinine 04/20/22 04/20/22 04/20/22 04:12 04:12 09:10 WBC RBC Hgb Hct Seg Neutrophils % Seg Neuts % (Manual) Lymphocytes % (Manual) Seg Neutrophils # Seg Neutrophils # Man PT Heparin Anti-Xa Level ABG pH ABG pO2 ABG HCO3 ABG O2 Saturation ABG Base Excess ABG Hemoglobin Oxyhemoglobin Sodium 133 L Potassium 3.5 L Chloride 91.9 L Carbon Dioxide BUN 44 H Creatinine 4.6 H Glucose 263 H POC Glucose Lactic Acid 2.80 H* Calcium 7.2 L Phosphorus Magnesium AST 553 H ALT 471 H Alkaline Phosphatase Total Creatine Kinase 3019 H CK-MB (CK-2) CK-MB (CK-2) Rel Index Troponin T Total Protein 5.7 L Albumin 2.4 L Triglycerides 254 H Urine Blood Urine WBC (Auto) Urine Creatinine 04/20/22 04/20/22 04/20/22 09:31 11:18 18:08 WBC RBC Hgb Hct Seg Neutrophils % Seg Neuts % (Manual) Lymphocytes % (Manual) Seg Neutrophils # Seg Neutrophils # Man PT Heparin Anti-Xa Level ABG pH 7.512 H ABG pO2 ABG HCO3 26.2 H ABG O2 Saturation ABG Base Excess 3.2 H ABG Hemoglobin 9.0 L Oxyhemoglobin Sodium Potassium Chloride Carbon Dioxide BUN Creatinine Glucose POC Glucose 285 H 293 H Lactic Acid Calcium Phosphorus Magnesium AST ALT Alkaline Phosphatase Total Creatine Kinase CK-MB (CK-2) CK-MB (CK-2) Rel Index Troponin T Total Protein Albumin Triglycerides Urine Blood Urine WBC (Auto) Urine Creatinine 04/20/22 04/21/22 04/21/22 21:40 00:10 04:00 WBC RBC Hgb Hct Seg Neutrophils % Seg Neuts % (Manual) Lymphocytes % (Manual) Seg Neutrophils # Seg Neutrophils # Man PT Heparin Anti-Xa Level 0.16 L ABG pH ABG pO2 59.4 L ABG HCO3 29.7 H ABG O2 Saturation 90.1 L ABG Base Excess 3.1 H ABG Hemoglobin 11.6 L Oxyhemoglobin 88.2 L Sodium Potassium Chloride Carbon Dioxide BUN Creatinine Glucose POC Glucose 290 H Lactic Acid Calcium Phosphorus Magnesium AST ALT Alkaline Phosphatase Total Creatine Kinase CK-MB (CK-2) CK-MB (CK-2) Rel Index Troponin T Total Protein Albumin Triglycerides Urine Blood Urine WBC (Auto) Urine Creatinine 04/21/22 04/21/22 04/21/22 04:30 04:30 05:57 WBC 17.9 H RBC Hgb 11.7 L Hct 35.1 L Seg Neutrophils % Seg Neuts % (Manual) Lymphocytes % (Manual) Seg Neutrophils # Seg Neutrophils # Man PT Heparin Anti-Xa Level ABG pH ABG pO2 ABG HCO3 ABG O2 Saturation ABG Base Excess ABG Hemoglobin Oxyhemoglobin Sodium Potassium Chloride 95.7 L Carbon Dioxide BUN 45 H Creatinine 4.2 H Glucose 309 H POC Glucose 265 H Lactic Acid Calcium 7.4 L Phosphorus 5.60 H D Magnesium 2.50 H AST 217 H ALT 376 H Alkaline Phosphatase Total Creatine Kinase CK-MB (CK-2) CK-MB (CK-2) Rel Index Troponin T Total Protein Albumin 2.8 L Triglycerides Urine Blood Urine WBC (Auto) Urine Creatinine 04/21/22 13:45 WBC RBC Hgb Hct Seg Neutrophils % Seg Neuts % (Manual) Lymphocytes % (Manual) Seg Neutrophils # Seg Neutrophils # Man PT Heparin Anti-Xa Level ABG pH ABG pO2 ABG HCO3 ABG O2 Saturation ABG Base Excess ABG Hemoglobin Oxyhemoglobin Sodium Potassium Chloride Carbon Dioxide BUN Creatinine Glucose POC Glucose 248 H Lactic Acid Calcium Phosphorus Magnesium AST ALT Alkaline Phosphatase Total Creatine Kinase CK-MB (CK-2) CK-MB (CK-2) Rel Index Troponin T Total Protein Albumin Triglycerides Urine Blood Urine WBC (Auto) Urine Creatinine Assessment and Plan 1. Improving Encephalopathy . 2. MRI Brain once off ventilation . 3. Agree to reduce sedation. 4. Possible EEG if there is more confusion following Extubation Call Back with Questions - Neurological Prognosis is ?Guarded . Dr. May
[2022-04-21] MEDS: VASOPRESSIN 20 UNIT in SODIUM CHLORIDE 0.9% 100 ML IV SCH (15:48)
[2022-04-21] MEDS: INSULIN GLARGINE 100 UNITS/ML SUB-Q SCH (21:21)
[2022-04-21] MEDS: HEPARIN 5,000 UNIT/1 ML VIAL SUB-Q SCH (21:21)
[2022-04-22] MEDS: VASOPRESSIN 20 UNIT in SODIUM CHLORIDE 0.9% 100 ML IV SCH ×2 (00:05→09:34)
[2022-04-22] MEDS: INSULIN LISPRO 100 UNIT/ML SUB-Q SCH ×5 (00:11→23:33)
[2022-04-22] MEDS: SODIUM CHLORIDE 0.9% 1000 ML 1,000 ML IV SCH (00:56)
[2022-04-22] MEDS: fentaNYL DRIP Premix 2,000 MCG/100 ML BAG IV SCH ×4 (01:28→21:45)
--- NOTE | 2022-04-22 01:52 | XRay Report ---
XR chest 1V ap INDICATION / CLINICAL INFORMATION: follow up respiratory failure. COMPARISON: Radiograph from yesterday. FINDINGS: SUPPORT DEVICES: Unchanged. HEART /PULMONARY VASCULATURE: Unchanged. LUNGS / PLEURA: No significant change in bilateral pulmonary opacities. No pneumothorax. IMPRESSION: 1. No significant interval change. Signer Name: Buddy Barrow MD Signed: 04/22/2022 1:47 AM Workstation Name: [id number]
[2022-04-22 05:02] LABS: Hematocrit 29.7 % (35.5-45.6); Hemoglobin 9.8 gm/dl (11.8-15.2); Mean Corpuscular HGB Conc 33 % (32-34); Mean Corpuscular Volume 89 fl (84-94); Platelet Count 138 K/mm3 (140-440); Red Blood Count 3.34 M/mm3 (3.65-5.03); Red Cell Distribution Width 14.5 % (13.2-15.2)
[2022-04-22 05:20] LABS: Calcium 7.3 mg/dL (8.4-10.2)
[2022-04-22] MEDS: FAMOTIDINE 20 MG TAB FEEDTUBE SCH (09:33)
[2022-04-22] MEDS: HEPARIN 5,000 UNIT/1 ML VIAL SUB-Q SCH ×2 (09:33→21:13)
[2022-04-22] MEDS: AMIODARONE 200 MG TAB PO SCH ×2 (09:33→21:13)
[2022-04-22] MEDS: ASPIRIN 81 MG TAB CHEW FEEDTUBE SCH (09:33)
--- NOTE | 2022-04-22 09:46 | Progress Note ---
Assessment and Plan VINCENT /TASHA - F/u resolving BUN/Cr & continue IVF NS 100ml/hr. No need for HD at this time, f/u urine output. Discussed with pt's at bedside Hypotension - Continue Vasopressin. Still hold all BP meds & avoid Diuretics for now. Strive to keep SBP around 120 to ensure good renoperfusion. Nutrition - Tolerating TF, Nepro, rate per Dietitian but decrease Fluid flushes to 60ml q8hr. Discussed with Nurse at bedside S/p V Fib Arrest - S/p Cardiac Cath yesterday with no evidence of CAD. Cardiology susp[ects Nonischemic Cardiomyopathy. Will f/u Mx Lytes - F/u labs Resp Failure - F/u vent weaning per Pulm >35mins Subjective Date of service: 04/22/22 Principal diagnosis: AHRF; AMS; Pneumonia; Shock; DM II; Severe Metabolic Acidosis Interval history: Awake with improved response Objective - Vital Signs Vital signs: Vital Signs - 12hr 04/21/22 04/21/22 04/21/22 22:00 23:00 23:54 Temperature Pulse Rate 73 94 H 121 H Pulse Rate [ From Monitor] Respiratory 16 16 Rate Blood Pressure 98/66 119/87 119/87 O2 Sat by Pulse 94 94 93 Oximetry 04/21/22 04/21/22 04/22/22 23:58 23:59 00:00 Temperature 98.9 F Pulse Rate 120 H 101 H Pulse Rate [ 95 H From Monitor] Respiratory 15 16 Rate Blood Pressure 119/87 O2 Sat by Pulse 90 95 Oximetry 04/22/22 04/22/22 04/22/22 00:01 01:00 02:01 Temperature Pulse Rate 110 H 101 H 88 Pulse Rate [ From Monitor] Respiratory 14 17 16 Rate Blood Pressure 138/78 133/81 107/69 O2 Sat by Pulse 87 91 92 Oximetry 04/22/22 04/22/22 04/22/22 03:01 03:21 03:23 Temperature 98.5 F Pulse Rate 127 H 94 H Pulse Rate [ 96 H From Monitor] Respiratory 15 16 Rate Blood Pressure 107/69 O2 Sat by Pulse 90 95 Oximetry 04/22/22 04/22/22 04/22/22 03:42 04:01 05:00 Temperature Pulse Rate 110 H 95 H 75 Pulse Rate [ From Monitor] Respiratory 18 16 Rate Blood Pressure 144/93 145/88 113/70 O2 Sat by Pulse 93 89 92 Oximetry 04/22/22 04/22/22 04/22/22 06:00 07:00 08:00 Temperature 99.2 F Pulse Rate 78 84 80 Pulse Rate [ 96 H From Monitor] Respiratory 16 16 16 Rate Blood Pressure 111/78 120/80 129/82 O2 Sat by Pulse 93 94 95 Oximetry 04/22/22 04/22/22 08:38 09:00 Temperature Pulse Rate 84 83 Pulse Rate [ From Monitor] Respiratory 16 Rate Blood Pressure 173/83 117/79 O2 Sat by Pulse 93 94 Oximetry - General Appearance General appearance: other (+Arousal) EENT: PERRL, hearing intact Neck: no JVD, supple Respiratory: Present: Other (Good air entry per vent) Cardiology: regular, S1S2 Gastrointestinal: obese, other (Soft) Neurologic: other (Awake & moves all limbs) - Lab 04/22/22 04:33 04/22/22 04:00 Most recent lab results ABG pH 7.350 pH Units (7.350-7.450) 04/20/22 21:40 ABG pCO2 55.0 mm Hg 04/20/22 21:40 ABG pO2 59.4 mm Hg (80.0-90.0) L 04/20/22 21:40 ABG HCO3 29.7 mmol/L (20.0-26.0) H 04/20/22 21:40 ABG O2 Saturation 90.1 % (95.0-99.0) L 04/20/22 21:40 Calcium 7.3 mg/dL (8.4-10.2) L 04/22/22 04:00 Phosphorus 5.60 mg/dL (2.5-4.5) H D 04/21/22 04:30 Magnesium 2.50 mg/dL (1.7-2.3) H 04/21/22 04:30 Urine Creatinine 90.9 mg/dL (0.1-20.0) H 04/19/22 02:08 Urine Sodium 54 mmol/L 04/19/22 02:08 Medications & Allergies - Medications Allergies/Adverse Reactions: Allergies No Known Allergies Allergy (Unverified 04/17/22 19:30) Active Medications: Generic Name Dose Route Start Last Admin Trade Name Freq PRN Reason Stop Dose Admin Acetaminophen 650 mg 04/17/22 19:48 04/19/22 17:25 Acetaminophen 325 Mg Tab PO 650 mg Q6H PRN Administration Pain MILD(1-3)/Fever >100.5/CHE Albuterol 2.5 mg 04/17/22 19:48 Albuterol 2.5 Mg/3 Ml Nebu IH Q3HRT PRN Shortness Of Breath Amiodarone HCl 200 mg 04/21/22 13:00 04/22/22 09:33 Amiodarone 200 Mg Tab PO 200 mg BID FLACO Administration Aspirin 81 mg 04/20/22 12:00 04/22/22 09:33 Aspirin 81 Mg Tab Chew FEEDTUBE 81 mg QDAY FLACO Administration Atorvastatin Calcium 20 mg 04/20/22 22:00 04/21/22 21:21 Atorvastatin 20 Mg Tab FEEDTUBE 20 mg QHS FLACO Administration Dextrose 0 ml 04/17/22 23:46 Dextrose 50% In Water (25gm) 50 Ml Syringe IV Q30MIN PRN Hypoglycemia Protocol Famotidine 20 mg 04/20/22 10:00 04/22/22 09:33 Famotidine 20 Mg Tab FEEDTUBE 20 mg DAILY FLACO Administration Fentanyl 50 mcg 04/17/22 20:22 04/18/22 03:52 Fentanyl 100 Mcg/2 Ml Inj IV 50 mcg Q10MIN PRN Administration ANALGESIA Heparin Sodium (Porcine) 5,000 unit 04/21/22 22:00 04/22/22 09:33 Heparin 5,000 Unit/1 Ml Vial SUB-Q 5,000 unit Q12HR FLACO Administration Hydrophilic Ointment 1 applic 04/18/22 06:02 Lip Therapy Vaseline TP Q2HR PRN Dry Lips NORepinephrine/NS 8 MG-250 ML 8 mg in 250 mls @ 3.75 mls/hr 04/17/22 21:00 04/21/22 19:12 Norepinephrine/Ns 8 Mg-250 Ml (Double Conc) IV 0 mcg/min TITRATE FLACO 0 mls/hr Titration Protocol 2 MCG/MIN Fentanyl Citrate 2,000 mcg in 100 mls @ 5.443 mls/hr 04/17/22 21:00 04/22/22 01:28 Fentanyl Drip Premix IV 2 mcg/kg/hr TITR FLACO 10.886 mls/hr Administration Protocol 1 MCG/KG/HR Propofol 1,000 mg in 100 mls @ 3.456 mls/hr 04/18/22 07:00 04/22/22 08:41 Diprivan 10 Mg/Ml IV 20 mcg/kg/min TITR FLACO 13.824 mls/hr Administration Protocol 5 MCG/KG/MIN Phenylephrine HCl 100 mg/ 100 mls @ 3 mls/hr 04/18/22 07:30 Sodium Chloride IV TITR FLACO Protocol 50 MCG/MIN Dopamine HCl/Dextrose 800 mg in 250 mls @ 4.32 mls/hr 04/19/22 02:00 04/21/22 19:12 Dopamine 800 Mg/D5w 250ml IV 0 mcg/kg/min TITR FLACO 0 mls/hr Titration Protocol 2 MCG/KG/MIN Levofloxacin/Dextrose 500 mg in 100 mls @ 100 mls/hr 04/20/22 22:00 04/20/22 22:00 Levaquin 500mg/100ml IV 04/25/22 21:59 Infused Q48H FLACO Infusion Protocol Sodium Chloride 1,000 mls @ 75 mls/hr 04/21/22 12:00 04/22/22 00:56 Nacl 0.9% 1000 Ml IV 04/22/22 11:59 75 mls/hr DIRECT FLACO Administration Vasopressin 20 unit/ Sodium 101 mls @ 12.12 mls/hr 04/21/22 15:00 04/22/22 09:34 Chloride IV 0.04 units/min DIRECT FLACO 12.12 mls/hr Administration 0.04 UNITS/MIN Insulin Glargine 20 units 04/19/22 22:00 04/21/22 21:21 Insulin Glargine 100 Units/Ml SUB-Q 20 units QHS FLACO Administration Insulin Human Lispro 0 unit 04/18/22 00:00 04/22/22 05:35 Insulin Lispro 100 Unit/Ml SUB-Q 6 unit Q6HR FLACO Administration Protocol Metoprolol Tartrate 2.5 mg 04/21/22 12:54 Metoprolol Tartrate 5 Mg/5 Ml Inj IV Q6HR PRN HR>130 Multi-Ingred Cream/Lotion/Oil/Oint 1 applic 04/18/22 06:02 Mineral Oil/Petrolatum, White Ophth Oint 3.5 Gm OU Q4HR PRN Dry Eye(s) Oxycodone/Acetaminophen 1 tab 04/17/22 19:48 Oxycodone /Acetaminophen 5-325mg Tab PO Q16H PRN Pain, Moderate (4-6) Senna/Docusate Sodium 1 tab 04/18/22 10:00 04/21/22 21:21 Sennosides/Docusate Sodium 8.6/50 Mg Tab FEEDTUBE 1 tab BID FLACO Administration Sodium Chloride 10 ml 04/17/22 22:00 04/22/22 09:33 Sodium Chloride 0.9% 10 Ml Flush Syringe IV 10 ml BID FLACO Administration Sodium Chloride 10 ml 04/17/22 19:48 Sodium Chloride 0.9% 10 Ml Flush Syringe IV PRN PRN LINE FLUSH
[2022-04-22] MEDS ORDERED: SODIUM CHLORIDE 0.9% 1000 ML 1,000 ML IV SCH (10:00)
--- NOTE | 2022-04-22 10:09 | Progress Note ---
Assessment and Plan - Patient Problems (1) Cardiac arrest Current Visit: Yes Status: Acute Plan to address problem: It will be recalled that he presented to [facility] emergency clinic with chest pain, and during his evaluation there, suffered an acute cardiopulmonary arrest prompting [facility] Ventricular fibrillation was reported, although no strips available for review. EKG on presentation here was a rapid atrial fibrillation with some nonspecific ST segment changes which have since resolved. Echocardiogram showed a four-chamber dilated cardiomyopathy with left ventricular ejection fraction 15 to 20%. The chronicity of the cardiomyopathy is uncertain, the patient's does not report any recent cardiac evaluation, with only a history of atrial fibrillation requiring cardioversion some 15 years ago. Cardiac catheterization performed yesterday showed no significant obstructive coronary lesions, consistent with nonischemic cardiomyopathy. Post cardiac catheterization, and IV hydration, his creatinine has reduced from 4.6-2.9. The patient however still vent dependent, with high oxygen rate requirements. Chest x-ray today shows a mostly right lung opacity, the ICU team is treating him for possible aspiration. We will continue oral amiodarone, indicated for rate control. When clinically stable, we will introduce afterload agents and beta-blockers. Continue subcutaneous heparin and supportive management. Eventually, he would need a device for secondary prevention of sudden cardiac before discharge, and long-term oral anticoagulation for atrial fibrillation. Subjective Date of service: 04/22/22 Principal diagnosis: Cardiopulmonary arrest, acute renal failure Interval history: The patient is sedated, on the vent. On surveillance monitor, atrial fibrillation with well-controlled ventricular rate in the 80s, blood pressure 100 systolic. The right groin cath site is well-healed, no hematoma, normal right femoral and dorsalis pedis pulses. Objective Vital Signs Temp Pulse Pulse Resp BP Pulse Ox 04/22/22 09:00 83 16 117/79 94 04/22/22 08:38 84 173/83 93 04/22/22 08:00 99.2 F 80 96 H 16 129/82 95 04/22/22 07:00 84 16 120/80 94 04/22/22 06:00 78 16 111/78 93 04/22/22 05:00 75 16 113/70 92 04/22/22 04:01 95 H 18 145/88 89 04/22/22 03:42 110 H 144/93 93 04/22/22 03:23 98.5 F 96 H 16 95 04/22/22 03:21 94 H 04/22/22 03:01 127 H 15 107/69 90 04/22/22 02:01 88 16 107/69 92 04/22/22 01:00 101 H 17 133/81 91 04/22/22 00:01 110 H 14 138/78 87 04/22/22 00:00 101 H 95 H 16 95 04/21/22 23:59 120 H 15 119/87 90 04/21/22 23:58 98.9 F 04/21/22 23:54 121 H 119/87 93 04/21/22 23:00 94 H 16 119/87 94 04/21/22 22:00 73 16 98/66 94 04/21/22 21:00 81 16 109/67 93 04/21/22 20:01 93 H 16 117/81 89 04/21/22 20:00 94 H 94 H 16 95 04/21/22 19:55 98 H 91/67 94 04/21/22 19:11 97.7 F 04/21/22 19:00 91 H 16 91/67 92 04/21/22 18:01 77 16 91/61 94 04/21/22 17:00 80 16 103/70 97 04/21/22 16:00 75 76 16 104/70 92 04/21/22 15:57 78 04/21/22 15:54 98 F 04/21/22 15:39 85 93/68 96 04/21/22 15:00 87 16 93/68 92 04/21/22 14:00 82 16 99/74 95 04/21/22 13:54 97.9 F 04/21/22 13:11 81 17 99/66 96 04/21/22 11:16 95 04/21/22 11:00 79 16 95/66 94 - Physical Examination General: Other (Patient is intubated, sedated, on the vent) HEENT: Positive: Other (Pupils fixed) Neck: Positive: neck supple Cardiac: Positive: irregularly irregular Lungs: Positive: Decreased Breath Sounds Neuro: Positive: Other (Intubated, sedated on the vent) Abdomen: Positive: Soft Skin: Positive: Clear Extremities: Absent: edema - Labs and Meds CBC 04/22/22 Range/Units 04:33 WBC 12.4 H (4.5-11.0) K/mm3 RBC 3.34 L (3.65-5.03) M/mm3 Hgb 9.8 L (11.8-15.2) gm/dl Hct 29.7 L (35.5-45.6) % Plt Count 138 L (140-440) K/mm3 Comprehensive Metabolic Panel 04/22/22 Range/Units 04:00 Sodium 142 (137-145) mmol/L Potassium 3.6 (3.6-5.0) mmol/L Chloride 100.0 (98-107) mmol/L Carbon Dioxide 28 (22-30) mmol/L BUN 40 H (9-20) mg/dL Creatinine 2.9 H (0.8-1.3) mg/dL Glucose 269 H (75-100) mg/dL Calcium 7.3 L (8.4-10.2) mg/dL - Allied health notes Allied health notes reviewed: nursing
[2022-04-22] MEDS: SENNOSIDES/DOCUSATE SODIUM 8.6/50 MG TAB FEEDTUBE SCH ×2 (10:15→21:13)
[2022-04-22 10:40] LABS: ABG HCO3 28.4 mmol/L (20.0-26.0); ABG Methemoglobin 0.5 % (0.0-1.5); ABG Oxygen Saturation 89.3 % (95.0-99.0); ABG PCO2 47.4 mm Hg; ABG PH 7.395 pH Units (7.350-7.450); ABG PO2 56.1 mm Hg (80.0-90.0)
[2022-04-22] MEDS ORDERED: QUEtiapine 25 MG TAB FEEDTUBE SCH (11:00)
--- NOTE | 2022-04-22 11:04 | Electrocardiograph Report ---
[facility] Test Date: 2022-04-21 Test Time: 07:47:01 Pat Name: ARIK DAMICO Department: Room: A252 1 Gender: M [employer]: NATHEN : 1960 Requested By: JACKSON FENG Order Number: [id number] Reading MD: Joe Schultz Measurements Intervals [place] Rate: 97 P: DC: QRS: -37 QRSD: 98 T: 58 QT: 354 QTc: 450 Interpretive Statements Atrial fibrillation Left axis deviation Low voltage, precordial leads Consider anterior infarct Compared to ECG 04/19/2022 06:36:41 Left-axis deviation now present Myocardial infarct finding now present Prolonged QT interval no longer present Electronically Signed On 04-22-2022 11:04:05 EDT by Joe Schultz
--- NOTE | 2022-04-22 11:04 | Progress Note ---
<[email or web address] - Last Filed: 04/22/22 15:01> Assessment and Plan Assessment and plan: This is a 62 year old male with OHS, HTN, DM, metabolic syndrome, s/p vfib cardiac arrest, Septic shock, aspiration pneumonia, transaminitis, VINCENT with acute metabolic encephalopathy Neuro: Acute metabolic encephalopathy, facial contusions s/p fall -CT head showed no focal intra-axial mass, hemorrhage, hydrocephalus or acute or large territorial infarct -Sedated with propofol and fentanyl -wean propofol as tolerated -RASS goal 0 to -1 -Seroquel 25 mg qHS -EKG to monitor qTc -Reorientation as needed -Maintain sleep-wake cycle -Neurology consulted, appreciate recommendations -As needed analgesia Cardiac: A. fib RVR , s/p V. fib cardiac arrest, ? cardiogenic shock, h/o atrial fibrillation s/p cardioversion, HTN -Cardiology consulted, appreciate recommendations -S/p V. fib cardiac arrest -S/p dopamine drip and dobutamine drip which resolved tachycardia -Amio gtt changed to PO -s/p IV heparin -Blood pressure monitoring per protocol -s/p Vasopressor support with levophed, epinephrine -Currently on vasopressin -MAP goal greater than 65 -Per CCM: - reduce IVF to 50/ml and stop after current bag - begin Dobutamine for inotropic support (Stop if worsening hypotension or tachyarrythmia's develop) - CVP's q-shift - wean off Vasopressin for target MAP > 65-70 mmHg & SBP > 110mmHg in short term -Echocardiogram shows EF of 15 to 20% -Left heart cath showed severe nonischemic cardiomyopathy with patent coronary arteries, which per cardiology presumably resulted in a primary cardiac arrest. -Per cardio: When blood pressure tolerates, he will need optimal medical therapy for afterload, beta-blockers, and long-term oral anticoagulation. Eventually from a cardiac standpoint, will need predischarge device therapy for secondary prevention of SCD, once he is off the vent and clinical status is optimized. Respiratory: Acute hypoxic respiratory failure, h/o OHS -CCM consulted, appreciate recommendations -Intubated on 04/17 with -A.m. vent settings: AC tidal volume 500, rate 16, PEEP 10, FiO2 60% -See RT notes for titration -A.m. ABG and CXR noted -VAP bundle -SPO2 monitoring GI: Transaminitis, moderate protein calorie malnutrition -24 hours + 441 mL -PPI -NTR consulted for tube feedings -BR: Senokot -Trend LFTs : Acute kidney injury likely secondary to vasomotor nephropathy, hypochloremia -Nephrology consulted, appreciate recommendations -Strict intake and output -Renally dose medications -Avoid nephrotoxic medications -s/p bicarb gtt -MIVF -Renal ultrasound shows distended gallbladder, no cholecystic fluid -Trend BMP ID: Aspiration pneumonia, Sepsis, lactic acidosis -CTA chest shows extensive bilateral airspace disease present dependent portions and greater in the upper lobes, given distribution could be related to as piration -Admitted with hypotension, lactic acidosis, acute kidney injury -Antibiotic therapy with Levaquin -f/u blood culture -Monitor WBC and temperature curve Endo: h/o DM -Avoid hypoglycemia -SSI -Accu-Cheks q. 6 -Long-acting insulin, titrate as needed Heme: Leukocytosis, elevated D-dimer -CTA chest shows no pulmonary embolism -Trend CBC -Transfuse hemoglobin less than 7 -Bilateral Doppler ultrasound showed no DVT -Anticoagulation with heparin drip -SCDs to BLE while in bed The high probability of a clinically significant, sudden or life threatening deterioration of the [multiple] system(s) required my full and direct attention, intervention and personal management. The aggregate critical care time was [90] minutes. This time is in addition to time spent performing reported procedures but includes the following: [x] Data Review and interpretation [x] Patient assessment and monitoring of vital signs [x] Documentation [x] Medication orders and management Disposition Plan: icu Total Time Spent with Patient (Minutes): 90 History Interval history: This is is a 62-year-old male with OHS, HTN, DM, metabolic syndrome presents the emergency department on 04/17 via EMS s/p cardiac arrest. As per family patient presented to [facility] [place] [facility] for evaluation for chest pain and subsequently went to the restroom where he was found unresponsive and EMS arrived and noted the patient had a V. fib arrest and ACLS was initiated and patient was transported to [facility] for further evaluation. Patient was noted to have aspirated into the oropharynx with suspected aspiration pneumonia complicated by acute hypoxic respiratory failure, septic shock and cardiac arrest. Patient was initiated on the sepsis protocol, IV vasopressor support and admitted to the ICU with consults to [facility], nephrology and cardiology. Hospital Course to Date: 04/18: Severely acidotic this am, now on bcarb gtt. On high dose pressors- Levophed and Vaso. Afib in control rate on the monitor, on Amiodarone and heparin gtt per protocol. Cardiology is following. Patient remains afebrile and leukocytosis improved this am. Now with worsen renal function and low UOP. Patient's EF is 25 to 30%, Dobutamine gtt initiated. Continue current IV abx, continue to trend troponin and lactic acid. Nephrology also consulted for further recs. BLE swelling noted, BLE doppler ordered to r/o DVT. 04/19: Agitation with low SPO2 overnight, sedation increased. This am ABG with worsen hypoxia on 40% Fio2, SPO2 at 90% this am. Fio2 increased to 50%, SPO2 improved above 92%. Remains on multiple pressors and bcarb gtt. Now on dopamine gtt, in Afib with RVR on the monitor. Still on Amiodarone and heparin gtts. Echo noted, EF 15 to 20%. Cardiology is following. With worsen renal function, however making urine this am. No indication for [employer]ICE PRESIDENT COMPLIANCE at this per Nephro. Will continue to monitor. Monitor and replace electrolytes as needed 04/20: Nephrology spoke to at bedside re HD, cardiology will proceed with [facility] if patient is to recieve HD post procedure, vent changes per [facility], Sedated with fentanyl and propofol with heparin and amio gtt infusing. 04/21: LHC today. Nephrology will continue IVF and if renal function worsens then will proceed HD with consent from family. Patient became hypoxic with FiO2 at 40% yesterday evening and is currently at 65%. 04/22: Patient was started on vasopressin IV fluids yesterday and his creatinine decreased from 4.2 to 2.9. Patient severely agitated while on propofol and fentanyl. Started low-dose Seroquel and started to wean propofol as tolerated. Patient does follow commands today. Increase in lantus. IV fluids decreased, started on dobutamine per [facility] and wean vasopressin for target MAP of 65-70 and SBP greater than 110 Hospitalist Physical - Constitutional Vitals: Temp Pulse Resp BP Pulse Ox 99.2 F 83 16 117/79 94 04/22/22 08:00 04/22/22 09:00 04/22/22 09:00 04/22/22 09:00 04/22/22 09:00 General appearance: Present: no acute distress, other (Intubated and Sedated) - EENT Eyes: Present: PERRL, EOM intact ENT: hearing decreased - Neck Neck: Present: normal ROM - Respiratory Respiratory effort: normal Respiratory: bilateral: diminished - Cardiovascular Rhythm: regular Heart Sounds: Present: S1 & S2. Absent: systolic murmur, diastolic murmur - Extremities Extremities: no ischemia, pulses intact, pulses symmetrical Extremity abnormal: edema Peripheral Pulses: within normal limits - Abdominal General gastrointestinal: soft, non-tender, non-distended, normal bowel sounds - Integumentary Integumentary: Present: dry - Psychiatric Psychiatric: agitated - Neurologic Neurologic: other (follows commands, cough/gag intact, positive track/focus) - Allied Health Allied health notes reviewed: nursing, RT, social work HEART Score - HEART Score Troponin: Troponin T 2.980 ng/mL (0.00-0.029) H* 04/19/22 07:11 Results - Labs CBC & Chem 7: 04/22/22 04:33 04/22/22 04:00 Labs: Laboratory Last Values WBC 12.4 K/mm3 (4.5-11.0) H 04/22/22 04:33 RBC 3.34 M/mm3 (3.65-5.03) L 04/22/22 04:33 Hgb 9.8 gm/dl (11.8-15.2) L 04/22/22 04:33 Hct 29.7 % (35.5-45.6) L 04/22/22 04:33 MCV 89 fl (84-94) 04/22/22 04:33 MCH 29 pg (28-32) 04/22/22 04:33 MCHC 33 % (32-34) 04/22/22 04:33 RDW 14.5 % (13.2-15.2) 04/22/22 04:33 Plt Count 138 K/mm3 (140-440) L 04/22/22 04:33 Lymph % (Auto) 23.0 % (13.4-35.0) 04/17/22 19:58 [place] % (Auto) 3.2 % (0.0-7.3) 04/18/22 Unknown Eos % (Auto) 0.1 % (0.0-4.3) 04/18/22 Unknown Baso % (Auto) 0.6 % (0.0-1.8) 04/17/22 19:58 Lymph # (Auto) 2.7 K/mm3 (1.2-5.4) 04/17/22 19:58 [place] # (Auto) 0.3 K/mm3 (0.0-0.8) 04/18/22 Unknown Eos # (Auto) 0.0 K/mm3 (0.0-0.4) 04/18/22 Unknown Baso # (Auto) 0.1 K/mm3 (0.0-0.1) 04/18/22 Unknown Add Manual Diff Complete 04/18/22 Unknown Total Counted 100 04/18/22 Unknown Seg Neutrophils % Home Assessment Nurse 04/18/22 Unknown Seg Neuts % (Manual) 81.0 % (40.0-70.0) H 04/18/22 Unknown Band Neutrophils % 3.0 % 04/18/22 Unknown Lymphocytes % (Manual) 12.0 % (13.4-35.0) L 04/18/22 Unknown Reactive Lymphs % (Man) 0 % 04/18/22 Unknown Monocytes % (Manual) 2.0 % (0.0-7.3) 04/18/22 Unknown Eosinophils % (Manual) 0 % (0.0-4.3) 04/18/22 Unknown Basophils % (Manual) 0 % (0.0-1.8) 04/18/22 Unknown Metamyelocytes % 2.0 % 04/18/22 Unknown Myelocytes % 0 % 04/18/22 Unknown Promyelocytes % 0 % 04/18/22 Unknown Blast Cells % 0 % 04/18/22 Unknown Nucleated RBC % Not Reportable 04/18/22 Unknown Seg Neutrophils # 9.8 K/mm3 (1.8-7.7) H 04/18/22 Unknown Seg Neutrophils # Man 8.7 K/mm3 (1.8-7.7) H 04/18/22 Unknown Band Neutrophils # 0.3 K/mm3 04/18/22 Unknown Lymphocytes # (Manual) 1.3 K/mm3 (1.2-5.4) 04/18/22 Unknown Abs React Lymphs (Man) 0.0 K/mm3 04/18/22 Unknown Monocytes # (Manual) 0.2 K/mm3 (0.0-0.8) 04/18/22 Unknown Eosinophils # (Manual) 0.0 K/mm3 (0.0-0.4) 04/18/22 Unknown Basophils # (Manual) 0.0 K/mm3 (0.0-0.1) 04/18/22 Unknown Metamyelocytes # 0.2 K/mm3 04/18/22 Unknown Myelocytes # 0.0 K/mm3 04/18/22 Unknown Promyelocytes # 0.0 K/mm3 04/18/22 Unknown Blast Cells # 0.0 K/mm3 04/18/22 Unknown WBC Morphology Not Reportable 04/18/22 Unknown Hypersegmented Neuts Not Reportable 04/18/22 Unknown Hyposegmented Neuts Not Reportable 04/18/22 Unknown Hypogranular Neuts Not Reportable 04/18/22 Unknown Smudge Cells Not Reportable 04/18/22 Unknown Toxic Granulation 2+ 04/18/22 Unknown Toxic Vacuolation Not Reportable 04/18/22 Unknown Dohle Bodies Not Reportable 04/18/22 Unknown Pelger-Huet Anomaly Not Reportable 04/18/22 Unknown Regla Rods Not Reportable 04/18/22 Unknown Platelet Estimate Consistent w auto 04/18/22 Unknown Clumped Platelets Not Reportable 04/18/22 Unknown Plt Clumps, EDTA Not Reportable 04/18/22 Unknown Large Platelets Not Reportable 04/18/22 Unknown Giant Platelets Not Reportable 04/18/22 Unknown Platelet Satelliting Not Reportable 04/18/22 Unknown Plt Morphology Comment Not Reportable 04/18/22 Unknown RBC Morphology Not Reportable 04/18/22 Unknown Dimorphic RBCs Not Reportable 04/18/22 Unknown Polychromasia Not Reportable 04/18/22 Unknown Hypochromasia Not Reportable 04/18/22 Unknown Poikilocytosis Not Reportable 04/18/22 Unknown Anisocytosis Not Reportable 04/18/22 Unknown Microcytosis Not Reportable 04/18/22 Unknown Macrocytosis Not Reportable 04/18/22 Unknown Spherocytes Not Reportable 04/18/22 Unknown Pappenheimer Bodies Not Reportable 04/18/22 Unknown Sickle Cells Not Reportable 04/18/22 Unknown Target Cells Not Reportable 04/18/22 Unknown Tear Drop Cells Not Reportable 04/18/22 Unknown Ovalocytes Not Reportable 04/18/22 Unknown Helmet Cells Not Reportable 04/18/22 Unknown [place] Bodies Not Reportable 04/18/22 Unknown [place] Rings Not Reportable 04/18/22 Unknown [place] Cells Not Reportable 04/18/22 Unknown Bite Cells Not Reportable 04/18/22 Unknown Crenated Cell Not Reportable 04/18/22 Unknown Elliptocytes Not Reportable 04/18/22 Unknown Acanthocytes (Spur) Not Reportable 04/18/22 Unknown Rouleaux Not Reportable 04/18/22 Unknown Hemoglobin C Crystals Not Reportable 04/18/22 Unknown Schistocytes Not Reportable 04/18/22 Unknown Malaria parasites Not Reportable 04/18/22 Unknown [place] Bodies Not Reportable 04/18/22 Unknown Hem Pathologist Commnt No 04/18/22 Unknown PT 15.6 Sec. (12.2-14.9) H 04/18/22 Unknown INR 1.08 (0.87-1.13) 04/18/22 Unknown APTT 28.6 Sec. (24.2-36.6) 04/18/22 Unknown Activated Coag Time 179 (74-137) H 04/21/22 12:14 Heparin Anti-Xa Level 0.16 U.I./ml (0.3-0.7) L 04/21/22 04:00 ABG pH 7.395 pH Units (7.350-7.450) 04/22/22 10:13 ABG pCO2 47.4 mm Hg 04/22/22 10:13 ABG pO2 56.1 mm Hg (80.0-90.0) L 04/22/22 10:13 ABG HCO3 28.4 mmol/L (20.0-26.0) H 04/22/22 10:13 ABG O2 Saturation 89.3 % (95.0-99.0) L 04/22/22 10:13 ABG O2 Content 12.1 (0.0-44) 04/22/22 10:13 ABG Base Excess 3.0 mmol/L (-2.0-3.0) 04/22/22 10:13 ABG Hemoglobin 9.8 gm/dl (14.0-18.0) L 04/22/22 10:13 ABG Carboxyhemoglobin 1.4 % (0.0-5.0) 04/22/22 10:13 ABG Methemoglobin 0.5 % (0.0-1.5) 04/22/22 10:13 Oxyhemoglobin 87.7 % (95.0-99.0) L 04/22/22 10:13 FiO2 60 % 04/22/22 10:13 Sodium 142 mmol/L (137-145) 04/22/22 04:00 Potassium 3.6 mmol/L (3.6-5.0) 04/22/22 04:00 Chloride 100.0 mmol/L (98-107) 04/22/22 04:00 Carbon Dioxide 28 mmol/L (22-30) 04/22/22 04:00 Anion Gap 18 mmol/L 04/22/22 04:00 BUN 40 mg/dL (9-20) H 04/22/22 04:00 Creatinine 2.9 mg/dL (0.8-1.3) H 04/22/22 04:00 Estimated GFR 27 ml/min 04/22/22 04:00 BUN/Creatinine Ratio 14 % 04/22/22 04:00 Glucose 269 mg/dL (75-100) H 04/22/22 04:00 POC Glucose 240 mg/dL (70-105) H 04/21/22 18:10 Lactic Acid 1.90 mmol/L (0.7-2.0) 04/21/22 04:20 Calcium 7.3 mg/dL (8.4-10.2) L 04/22/22 04:00 Phosphorus 5.60 mg/dL (2.5-4.5) H D 04/21/22 04:30 Magnesium 2.50 mg/dL (1.7-2.3) H 04/21/22 04:30 Total Bilirubin 0.80 mg/dL (0.1-1.2) 04/21/22 04:30 AST 217 units/L (5-40) H 04/21/22 04:30 ALT 376 units/L (7-56) H 04/21/22 04:30 Alkaline Phosphatase 114 units/L (35-129) 04/21/22 04:30 Total Creatine Kinase 973 units/L (55-170) H 04/22/22 04:00 CK-MB (CK-2) 28.5 ng/mL (0.0-4.0) H 04/19/22 07:11 CK-MB (CK-2) Rel Index 0.8 (0-4) 04/19/22 07:11 Troponin T 2.980 ng/mL (0.00-0.029) H* 04/19/22 07:11 Total Protein 6.4 g/dL (6.3-8.2) 04/21/22 04:30 Albumin 2.8 g/dL (3.9-5) L 04/21/22 04:30 Albumin/Globulin Ratio 0.8 % 04/21/22 04:30 Triglycerides 254 mg/dL (2-149) H 04/20/22 09:10 Cholesterol 106 mg/dL (50-199) 04/17/22 19:56 LDL Cholesterol Direct 57 mg/dL (50-130) 04/17/22 19:56 HDL Cholesterol 40 mg/dL (40-59) 04/17/22 19:56 Cholesterol/HDL Ratio 2.65 % 04/17/22 19:56 Procalcitonin > 200.00 ng/mL (<0.15) 04/19/22 07:17 Urine Color Yellow (Yellow) 04/19/22 02:08 Urine Turbidity Slightly cloudy (Clear) 04/19/22 02:08 Urine pH 5.0 (5.0-7.0) 04/19/22 02:08 Ur Specific [place] 1.005 (1.003-1.030) 04/19/22 02:08 Urine Protein 30 mg/dl mg/dL (Negative) 04/19/22 02:08 Urine Glucose (UA) Negative mg/dL (Negative) 04/19/22 02:08 Urine Ketones Negative mg/dL (Negative) 04/19/22 02:08 Urine Blood Large (Negative) A 04/19/22 02:08 Urine Nitrite Negative (Negative) 04/19/22 02:08 Ur Reducing Substances Not Reportable 04/19/22 02:08 Urine Bilirubin Negative (Negative) 04/19/22 02:08 Urine Ictotest Not Reportable 04/19/22 02:08 Urine Urobilinogen 0.2 mg/dL (<2.0) 04/19/22 02:08 Ur Leukocyte Esterase Negative (Negative) 04/19/22 02:08 Urine WBC (Auto) 88.0 /HPF (0.0-6.0) H 04/19/22 02:08 Urine RBC (Auto) 60.0 /HPF (0.0-6.0) 04/19/22 02:08 Urine Bacteria (Auto) 2+ /HPF (Negative) 04/19/22 02:08 Urine WBC Clumps 3+ /HPF 04/19/22 02:08 RBC Casts 34 /LPF 04/19/22 02:08 Urine Mucus 1+ /HPF 04/19/22 02:08 Urine Yeast (Budding) 3+ /HPF 04/19/22 02:08 Urine Eosinophils None seen (None Seen) 04/19/22 02:08 Urine Creatinine 90.9 mg/dL (0.1-20.0) H 04/19/22 02:08 Urine Sodium 54 mmol/L 04/19/22 02:08 Blood Type A POSITIVE 04/21/22 04:37 Antibody Screen Negative 04/21/22 04:37 Microbiology: Microbiology 04/17/22 21:42 Peripheral/Venous Blood Culture - Preliminary NO GROWTH AFTER 4 DAYS 04/17/22 21:42 Peripheral/Venous Blood Culture - Preliminary NO GROWTH AFTER 4 DAYS [place]/IV: Voiding Method Indwelling Catheter Active Medications - Current Medications Current Medications: Generic Name Dose Route Start Last Admin Trade Name Freq PRN Reason Stop Dose Admin Acetaminophen 650 mg 04/17/22 19:48 04/19/22 17:25 Acetaminophen 325 Mg Tab PO 650 mg Q6H PRN Administration Pain MILD(1-3)/Fever >100.5/CHE Albuterol 2.5 mg 04/17/22 19:48 Albuterol 2.5 Mg/3 Ml Nebu Q3HRT PRN Shortness Of Breath Amiodarone HCl 200 mg 04/21/22 13:00 04/22/22 09:33 Amiodarone 200 Mg Tab PO 200 mg BID FLACO Administration Aspirin 81 mg 04/20/22 12:00 04/22/22 09:33 Aspirin 81 Mg Tab Chew FEEDTUBE 81 mg QDAY FLACO Administration Atorvastatin Calcium 20 mg 04/20/22 22:00 04/21/22 21:21 Atorvastatin 20 Mg Tab FEEDTUBE 20 mg QHS FLACO Administration Dextrose 0 ml 04/17/22 23:46 Dextrose 50% In Water (25gm) 50 Ml Syringe IV Q30MIN PRN Hypoglycemia Protocol Famotidine 20 mg 04/20/22 10:00 04/22/22 09:33 Famotidine 20 Mg Tab FEEDTUBE 20 mg DAILY FLACO Administration Fentanyl 50 mcg 04/17/22 20:22 04/18/22 03:52 Fentanyl 100 Mcg/2 Ml Inj IV 50 mcg Q10MIN PRN Administration ANALGESIA Heparin Sodium (Porcine) 5,000 unit 04/21/22 22:00 04/22/22 09:33 Heparin 5,000 Unit/1 Ml Vial SUB-Q 5,000 unit Q12HR FLACO Administration Hydrophilic Ointment 1 applic 04/18/22 06:02 Lip Therapy Vaseline TP Q2HR PRN Dry Lips NORepinephrine/NS 8 MG-250 ML 8 mg in 250 mls @ 3.75 mls/hr 04/17/22 21:00 04/21/22 19:12 Norepinephrine/Ns 8 Mg-250 Ml (Double Conc) IV 0 mcg/min TITRATE FLACO 0 mls/hr Titration Protocol 2 MCG/MIN Fentanyl Citrate 2,000 mcg in 100 mls @ 5.443 mls/hr 04/17/22 21:00 04/22/22 10:11 Fentanyl Drip Premix IV 3 mcg/kg/hr TITR FLACO 16.329 mls/hr Administration Protocol 1 MCG/KG/HR Propofol 1,000 mg in 100 mls @ 3.456 mls/hr 04/18/22 07:00 04/22/22 08:41 Diprivan 10 Mg/Ml IV 20 mcg/kg/min TITR FLACO 13.824 mls/hr Administration Protocol 5 MCG/KG/MIN Phenylephrine HCl 100 mg/ 100 mls @ 3 mls/hr 04/18/22 07:30 Sodium Chloride IV TITR FLACO Protocol 50 MCG/MIN Dopamine HCl/Dextrose 800 mg in 250 mls @ 4.32 mls/hr 04/19/22 02:00 04/21/22 19:12 Dopamine 800 Mg/D5w 250ml IV 0 mcg/kg/min TITR FLACO 0 mls/hr Titration Protocol 2 MCG/KG/MIN Levofloxacin/Dextrose 500 mg in 100 mls @ 100 mls/hr 04/20/22 22:00 04/20/22 22:00 Levaquin 500mg/100ml IV 04/25/22 21:59 Infused Q48H [facility] Infusion Protocol Vasopressin 20 unit/ Sodium 101 mls @ 12.12 mls/hr 04/21/22 15:00 04/22/22 09:34 Chloride IV 0.04 units/min DIRECT FLACO 12.12 mls/hr Administration 0.04 UNITS/MIN Sodium Chloride 1,000 mls @ 50 mls/hr 04/22/22 10:00 Nacl 0.9% 1000 Ml IV DIRECT FLACO Insulin Glargine 20 units 04/19/22 22:00 04/21/22 21:21 Insulin Glargine 100 Units/Ml SUB-Q 20 units QHS FLACO Administration Insulin Human Lispro 0 unit 04/18/22 00:00 04/22/22 05:35 Insulin Lispro 100 Unit/Ml SUB-Q 6 unit Q6HR [facility] Administration Protocol Metoprolol Tartrate 2.5 mg 04/21/22 12:54 Metoprolol Tartrate 5 Mg/5 Ml Inj IV Q6HR PRN HR>130 Multi-Ingred Cream/Lotion/Oil/Oint 1 applic 04/18/22 06:02 Mineral Oil/Petrolatum, White Ophth Oint 3.5 Gm OU Q4HR PRN Dry Eye(s) Oxycodone/Acetaminophen 1 tab 04/17/22 19:48 Oxycodone /Acetaminophen 5-325mg Tab PO Q16H PRN Pain, Moderate (4-6) Quetiapine Fumarate 25 mg 04/22/22 11:00 04/22/22 10:55 Quetiapine 25 Mg Tab FEEDTUBE 25 mg BID FLACO Administration Senna/Docusate Sodium 1 tab 04/18/22 10:00 04/22/22 10:15 Sennosides/Docusate Sodium 8.6/50 Mg Tab FEEDTUBE Not Given BID FLACO Sodium Chloride 10 ml 04/17/22 22:00 04/22/22 09:33 Sodium Chloride 0.9% 10 Ml Flush Syringe IV 10 ml BID FLACO Administration Sodium Chloride 10 ml 04/17/22 19:48 Sodium Chloride 0.9% 10 Ml Flush Syringe IV PRN PRN LINE FLUSH Nutrition/Malnutrition Assess - Dietary Evaluation Nutrition/Malnutrition Findings: Nutrition Notes Start: 04/18/22 08:52 Freq: Status: Active Protocol: Document 04/22/22 10:36 ROMELIA (Rec: 04/22/22 10:49 ROMELIA [email or web address]) Nutrition Notes Initial or Follow up Brief Note Current Diagnosis Acute Kidney Injury,Diabetes, Sepsis,Hypertension, Respiratory Failure Other Pertinent Diagnosis s/p PEA w/ROSC, HFrEF, Pneumonia, Metabolic Acidosis, Cardiogenic Shock, .. Current Diet TF-Nepro w/CARBSTEADY @ 35 ml/ hr (from D 04/21). Height 5 ft 9 in Weight 115.2 kg [place] Body Weight (kg) 72.72 BMI 37.5 Weight change and time frame No body weight change reported in 4 days. Weight Status Obese Subjective/Other Information RD consult for TF tolerance/ continuation assessment. TF continues as prescribed, no further information available at the time. Pt continues on Mechanical Ventilation, O2 saturation @ 95%, according to Physical Assessment History notes. Percent of energy/protein needs met: Prescribed TF-Nepro w/ CARBSTEADY @ 35 ml/hr provides for energy/protein needs (1, 500 Kcal/68 g) during LOS, 77% Kcal; 90% AA. Including 365 Kcal from Propofol: 95% Kcal; 90% AA. #2 Nutrition Diagnosis Altered nutrition-related laboratory values Comments: Prescribed TF-Nepro w/ CARBSTEADY @ 35 ml/hr provides for energy/protein needs (1, 500 Kcal/68 g) during LOS, 77% Kcal; 90% AA. Including 365 Kcal from Propofol: 95% Kcal; 90% AA. Diagnosis Progress(for reassessment Resolved documentation) #1 Nutrition Diagnosis Inadequate oral intake Diagnosis Progress(for reassessment Continues documentation) Is patient on ventilator? Yes Is Patient Ambulatory and/or Out of Bed No REE-([facility]-confined to bed) 2323.608 Kcal/Kg value to use for calculation 17 Approximate Energy Requirements Using 1958 kcal/Kg Calculation Used for Recommendations Kcal/kg Additional Notes Protein: 0.8-1.2 g/Kg AdjBW; 75-113 g/day. Fluids: 1 ml/Kcal, or as per MD. Nutrition Intervention Nutrition Support: Continue TF-Nepro w/CARBSTEADY @ 35 ml/hr. Flush: 220 ml water Q 4 hr, or as per MD. Kcal 1,500 Protein (gm) 68 Carbohydrates (gm) 134 Fat (gm) 80 Fluid (mL) 606 Fiber (gm) 11 % RDI: 77% Kcal; 90% AA. Goal #1 Provide at least 75% of energy /protein needs through Enteral Feeding during LOS. Follow-Up By: 04/29/22 Additional Comments Continue monitoring TF tolerance, ventilation status, vasopressors, and BM. <LISA TOWNSEND - Last Filed: 05/04/22 11:40> History Interval history: I saw and evaluated the patient. I agree with the findings and the plan of care as documented in the Nurse Practitioner's~note, with the following corrections and additions. Hospitalist Physical - Constitutional Vitals: Temp Pulse Resp BP Pulse Ox 98.7 F 58 L 31 H 144/80 98 05/04/22 07:13 05/04/22 10:01 05/04/22 10:01 05/04/22 10:01 05/04/22 10:01 HEART Score - HEART Score Troponin: Troponin T 2.980 ng/mL (0.00-0.029) H* 04/19/22 07:11 Results - Labs CBC & Chem 7: 05/03/22 04:46 05/04/22 03:48 Labs: Laboratory Last Values WBC 16.4 K/mm3 (4.5-11.0) H 05/03/22 04:46 RBC 3.08 M/mm3 (3.65-5.03) L 05/03/22 04:46 Hgb 8.8 gm/dl (11.8-15.2) L 05/03/22 04:46 Hct 27.7 % (35.5-45.6) L 05/03/22 04:46 MCV 90 fl (84-94) 05/03/22 04:46 MCH 29 pg (28-32) 05/03/22 04:46 MCHC 32 % (32-34) 05/03/22 04:46 RDW 15.0 % (13.2-15.2) 05/03/22 04:46 Plt Count 596 K/mm3 (140-440) H 05/03/22 04:46 Lymph % (Auto) 5.7 % (13.4-35.0) L 04/29/22 04:20 [place] % (Auto) 7.8 % (0.0-7.3) H 04/29/22 04:20 Eos % (Auto) 3.9 % (0.0-4.3) 04/29/22 04:20 Baso % (Auto) 0.6 % (0.0-1.8) 04/29/22 04:20 Lymph # (Auto) 1.1 K/mm3 (1.2-5.4) L 04/29/22 04:20 [place] # (Auto) 1.5 K/mm3 (0.0-0.8) H 04/29/22 04:20 Eos # (Auto) 0.8 K/mm3 (0.0-0.4) H 04/29/22 04:20 Baso # (Auto) 0.1 K/mm3 (0.0-0.1) 04/29/22 04:20 Add Manual Diff Complete 04/23/22 04:19 Total Counted 100 04/23/22 04:19 Seg Neutrophils % 82.0 % (40.0-70.0) H 04/29/22 04:20 Seg Neuts % (Manual) 74.0 % (40.0-70.0) H 04/23/22 04:19 Band Neutrophils % 2.0 % 04/23/22 04:19 Lymphocytes % (Manual) 10.0 % (13.4-35.0) L 04/23/22 04:19 Reactive Lymphs % (Man) 0 % 04/23/22 04:19 Monocytes % (Manual) 7.0 % (0.0-7.3) 04/23/22 04:19 Eosinophils % (Manual) 7.0 % (0.0-4.3) H 04/23/22 04:19 Basophils % (Manual) 0 % (0.0-1.8) 04/23/22 04:19 Metamyelocytes % 0 % 04/23/22 04:19 Myelocytes % 0 % 04/23/22 04:19 Promyelocytes % 0 % 04/23/22 04:19 Blast Cells % 0 % 04/23/22 04:19 Nucleated RBC % Not Reportable 04/23/22 04:19 Seg Neutrophils # 16.3 K/mm3 (1.8-7.7) H 04/29/22 04:20 Seg Neutrophils # Man 8.0 K/mm3 (1.8-7.7) H 04/23/22 04:19 Band Neutrophils # 0.2 K/mm3 04/23/22 04:19 Lymphocytes # (Manual) 1.1 K/mm3 (1.2-5.4) L 04/23/22 04:19 Abs React Lymphs (Man) 0.0 K/mm3 04/23/22 04:19 Monocytes # (Manual) 0.8 K/mm3 (0.0-0.8) 04/23/22 04:19 Eosinophils # (Manual) 0.8 K/mm3 (0.0-0.4) H 04/23/22 04:19 Basophils # (Manual) 0.0 K/mm3 (0.0-0.1) 04/23/22 04:19 Metamyelocytes # 0.0 K/mm3 04/23/22 04:19 Myelocytes # 0.0 K/mm3 04/23/22 04:19 Promyelocytes # 0.0 K/mm3 04/23/22 04:19 Blast Cells # 0.0 K/mm3 04/23/22 04:19 WBC Morphology Not Reportable 04/23/22 04:19 Hypersegmented Neuts Not Reportable 04/23/22 04:19 Hyposegmented Neuts Not Reportable 04/23/22 04:19 Hypogranular Neuts Not Reportable 04/23/22 04:19 Smudge Cells Not Reportable 04/23/22 04:19 Toxic Granulation Not Reportable 04/23/22 04:19 Toxic Vacuolation Not Reportable 04/23/22 04:19 Dohle Bodies Not Reportable 04/23/22 04:19 Pelger-Huet Anomaly Not Reportable 04/23/22 04:19 Regla Rods Not Reportable 04/23/22 04:19 Platelet Estimate Consistent w auto 04/23/22 04:19 Clumped Platelets Not Reportable 04/23/22 04:19 Plt Clumps, EDTA Not Reportable 04/23/22 04:19 Large Platelets Not Reportable 04/23/22 04:19 Giant Platelets Not Reportable 04/23/22 04:19 Platelet Satelliting Not Reportable 04/23/22 04:19 Plt Morphology Comment Not Reportable 04/23/22 04:19 RBC Morphology Not Reportable 04/23/22 04:19 Dimorphic RBCs Not Reportable 04/23/22 04:19 Polychromasia Not Reportable 04/23/22 04:19 Hypochromasia Not Reportable 04/23/22 04:19 Poikilocytosis Not Reportable 04/23/22 04:19 Anisocytosis Not Reportable 04/23/22 04:19 Microcytosis Not Reportable 04/23/22 04:19 Macrocytosis Not Reportable 04/23/22 04:19 Spherocytes Not Reportable 04/23/22 04:19 Pappenheimer Bodies Not Reportable 04/23/22 04:19 Sickle Cells Not Reportable 04/23/22 04:19 Target Cells Not Reportable 04/23/22 04:19 Tear Drop Cells Not Reportable 04/23/22 04:19 Ovalocytes Not Reportable 04/23/22 04:19 Helmet Cells Not Reportable 04/23/22 04:19 [place] Bodies Not Reportable 04/23/22 04:19 [place] Rings Not Reportable 04/23/22 04:19 [place] Cells Not Reportable 04/23/22 04:19 Bite Cells Not Reportable 04/23/22 04:19 Crenated Cell Not Reportable 04/23/22 04:19 Elliptocytes Not Reportable 04/23/22 04:19 Acanthocytes (Spur) Not Reportable 04/23/22 04:19 Rouleaux Not Reportable 04/23/22 04:19 Hemoglobin C Crystals Not Reportable 04/23/22 04:19 Schistocytes Not Reportable 04/23/22 04:19 Malaria parasites Not Reportable 04/23/22 04:19 [place] Bodies Not Reportable 04/23/22 04:19 Hem Pathologist Commnt No 04/23/22 04:19 PT 15.6 Sec. (12.2-14.9) H 04/18/22 Unknown INR 1.08 (0.87-1.13) 04/18/22 Unknown APTT 28.6 Sec. (24.2-36.6) 04/18/22 Unknown Activated Coag Time 179 (74-137) H 04/21/22 12:14 Heparin Anti-Xa Level 0.16 U.I./ml (0.3-0.7) L 04/21/22 04:00 ABG pH 7.442 pH Units (7.350-7.450) 05/02/22 04:45 ABG pCO2 37.8 mm Hg 05/02/22 04:45 ABG pO2 83.1 mm Hg (80.0-90.0) 05/02/22 04:45 ABG HCO3 25.2 mmol/L (20.0-26.0) 05/02/22 04:45 ABG O2 Saturation 97.0 % (95.0-99.0) 05/02/22 04:45 ABG O2 Content 12.6 (0.0-44) 05/02/22 04:45 ABG Base Excess 1.1 mmol/L (-2.0-3.0) 05/02/22 04:45 ABG Hemoglobin 9.3 gm/dl (14.0-18.0) L 05/02/22 04:45 ABG Carboxyhemoglobin 1.4 % (0.0-5.0) 05/02/22 04:45 ABG Methemoglobin 0.4 % (0.0-1.5) 05/02/22 04:45 Oxyhemoglobin 95.2 % (95.0-99.0) 05/02/22 04:45 FiO2 30 % 05/02/22 04:45 Sodium 141 mmol/L (137-145) 05/04/22 03:48 Potassium 4.5 mmol/L (3.6-5.0) D 05/04/22 03:48 Chloride 110.5 mmol/L (98-107) H 05/04/22 03:48 Carbon Dioxide 22 mmol/L (22-30) 05/04/22 03:48 Anion Gap 13 mmol/L 05/04/22 03:48 BUN 30 mg/dL (9-20) H 05/04/22 03:48 Creatinine 1.0 mg/dL (0.8-1.3) 05/04/22 03:48 Estimated GFR > 60 ml/min 05/04/22 03:48 BUN/Creatinine Ratio 30 % 05/04/22 03:48 Glucose 123 mg/dL (75-100) H 05/04/22 03:48 POC Glucose 117 mg/dL (70-105) H 05/04/22 05:03 Lactic Acid 1.90 mmol/L (0.7-2.0) 04/21/22 04:20 Calcium 8.1 mg/dL (8.4-10.2) L 05/04/22 03:48 Phosphorus 3.20 mg/dL (2.5-4.5) 05/03/22 04:46 Magnesium 2.10 mg/dL (1.7-2.3) 05/03/22 04:46 Total Bilirubin 0.40 mg/dL (0.1-1.2) 05/04/22 03:48 Direct Bilirubin 0.3 mg/dL (0-0.2) H 04/30/22 04:25 Indirect Bilirubin 0.1 mg/dL 04/30/22 04:25 AST 88 units/L (5-40) H 05/04/22 03:48 ALT 122 units/L (7-56) H 05/04/22 03:48 Alkaline Phosphatase 171 units/L (35-129) H 05/04/22 03:48 Total Creatine Kinase 61 units/L (55-170) 04/29/22 04:20 CK-MB (CK-2) 28.5 ng/mL (0.0-4.0) H 04/19/22 07:11 CK-MB (CK-2) Rel Index 0.8 (0-4) 04/19/22 07:11 Troponin T 2.980 ng/mL (0.00-0.029) H* 04/19/22 07:11 C-Reactive Protein 15.30 mg/dL (0.00-1.30) H 04/28/22 08:20 Total Protein 7.2 g/dL (6.3-8.2) 05/04/22 03:48 Albumin 2.2 g/dL (3.9-5) L 05/04/22 03:48 Albumin/Globulin Ratio 0.4 % 05/04/22 03:48 Triglycerides 214 mg/dL (2-149) H 05/01/22 04:00 Cholesterol 106 mg/dL (50-199) 04/17/22 19:56 LDL Cholesterol Direct 57 mg/dL (50-130) 04/17/22 19:56 HDL Cholesterol 40 mg/dL (40-59) 04/17/22 19:56 Cholesterol/HDL Ratio 2.65 % 04/17/22 19:56 Procalcitonin 2.90 ng/mL (<0.15) 04/28/22 Unknown Urine Color Straw (Yellow) 04/28/22 08:35 Urine Turbidity Clear (Clear) 04/28/22 08:35 Urine pH 6.0 (5.0-7.0) 04/28/22 08:35 Ur Specific [place] 1.000 (1.003-1.030) L 04/28/22 08:35 Urine Protein 300 mg/dl mg/dL (Negative) 04/28/22 08:35 Urine Glucose (UA) Negative mg/dL (Negative) 04/28/22 08:35 Urine Ketones Negative mg/dL (Negative) 04/28/22 08:35 Urine Blood 3+ (Negative) 04/28/22 08:35 Urine Nitrite Negative (Negative) 04/28/22 08:35 Ur Reducing Substances Not Reportable 04/28/22 08:35 Urine Bilirubin Negative (Negative) 04/28/22 08:35 Urine Ictotest Not Reportable 04/28/22 08:35 Urine Urobilinogen < 2.0 mg/dL (<2.0) 04/28/22 08:35 Ur Leukocyte Esterase Small (Negative) 04/28/22 08:35 Urine WBC (Auto) 21.0 /HPF (0.0-6.0) H 04/28/22 08:35 Urine RBC (Auto) 9.0 /HPF (0.0-6.0) 04/28/22 08:35 Urine Bacteria (Auto) 2+ /HPF (Negative) 04/19/22 02:08 Urine WBC Clumps 3+ /HPF 04/19/22 02:08 RBC Casts 34 /LPF 04/19/22 02:08 Urine Mucus Few /HPF 04/28/22 08:35 Urine Yeast (Budding) 3+ /HPF 04/19/22 02:08 Urine Eosinophils None seen (None Seen) 04/19/22 02:08 Urine Creatinine 90.9 mg/dL (0.1-20.0) H 04/19/22 02:08 Urine Sodium 54 mmol/L 04/19/22 02:08 Digoxin 0.7 ng/mL (0.9-2.0) L 05/03/22 04:46 Coronavirus (PCR) Positive (Negative) A 04/29/22 09:38 Influenza A (RT-PCR) Negative (Negative) 04/29/22 11:44 Influenza B (RT-PCR) Negative (Negative) 04/29/22 11:44 Blood Type A POSITIVE 04/21/22 04:37 Antibody Screen Negative 04/21/22 04:37 Microbiology: Microbiology 04/28/22 07:26 Tracheal Aspirate Sputum Culture - Final [place]/IV: Voiding Method Urinal Active Medications - Current Medications Current Medications: Generic Name Dose Route Start Last Admin Trade Name Freq PRN Reason Stop Dose Admin Acetaminophen 650 mg 04/17/22 19:48 04/28/22 21:38 Acetaminophen 325 Mg Tab PO 650 mg Q6H PRN Administration Pain MILD(1-3)/Fever >100.5/CHE Albuterol 2.5 mg 04/17/22 19:48 Albuterol 2.5 Mg/3 Ml Nebu IH Q3HRT PRN Shortness Of Breath Ascorbic Acid 500 mg 05/04/22 22:00 Ascorbic Acid 500 Mg Tab PO 05/10/22 10:01 BID [facility] Aspirin 81 mg 05/05/22 10:00 Aspirin 81 Mg Tab Chew PO QDAY [facility] Atorvastatin Calcium 20 mg 05/04/22 22:00 Atorvastatin 20 Mg Tab PO QHS [facility] Dexamethasone 8 mg 04/30/22 10:00 05/04/22 09:27 Dexamethasone 4 Mg/Ml Vial IV 05/09/22 10:01 8 mg DAILY [facility] Administration Dextrose 0 ml 04/17/22 23:46 Dextrose 50% In Water (25gm) 50 Ml Syringe IV Q30MIN PRN Hypoglycemia Protocol Digoxin 0.125 mg 05/04/22 17:00 Digoxin 0.125 Mg Tab PO DAILY@1700 [facility] Docusate Sodium 100 mg 05/04/22 22:00 Docusate Sodium 100 Mg/10 Ml Oral Liqd PO BID [facility] Doxazosin Mesylate 1 mg 05/04/22 22:00 Doxazosin 1 Mg Tab PO QHS [facility] Enoxaparin Sodium 120 mg 05/02/22 10:00 05/04/22 09:26 Enoxaparin 120 Mg/0.8 Ml Inj SUB-Q 120 mg Q12HR [facility] Administration Protocol Famotidine 20 mg 05/04/22 22:00 Famotidine 20 Mg Tab PO BID [facility] Fentanyl 50 mcg 04/17/22 20:22 04/30/22 22:41 Fentanyl 100 Mcg/2 Ml Inj IV 50 mcg Q10MIN PRN Administration ANALGESIA Furosemide 20 mg 05/04/22 18:00 Furosemide 20 Mg Tab PO 0600,1800 [facility] Hydrophilic Ointment 1 applic 04/18/22 06:02 04/26/22 20:29 Lip Therapy Vaseline TP 1 applic Q2HR PRN Administration Dry Lips Cefepime HCl 2 gm in 100 mls @ 200 mls/hr 04/28/22 08:00 05/04/22 09:26 Cefepime/Ns 2 Gm/100 Ml IV 200 mls/hr Q8H [facility] Administration Protocol Remdesivir 100 mg/ Sodium 250 mls @ 500 mls/hr 05/01/22 14:00 05/03/22 15:45 Chloride IV 05/04/22 14:29 500 mls/hr Q24HR@1400 [facility] Administration Insulin Glargine 35 units 05/03/22 22:00 05/03/22 21:01 Insulin Glargine 100 Units/Ml SUB-Q 35 units QHS [facility] Administration Insulin Human Lispro 10 unit 05/04/22 11:30 Insulin Lispro 100 Unit/Ml SUB-Q ACHS [facility] Insulin Human Lispro 0 unit 05/04/22 11:30 Insulin Lispro 100 Unit/Ml SUB-Q ACHS [facility] Protocol Metoprolol Tartrate 12.5 mg 05/04/22 10:00 Metoprolol Tartrate 25 Mg Tab PO BID [facility] Multi-Ingred Cream/Lotion/Oil/Oint 1 applic 04/18/22 06:02 Mineral Oil/Petrolatum, White Ophth Oint 3.5 Gm OU Q4HR PRN Dry Eye(s) Oxycodone/Acetaminophen 1 tab 05/04/22 10:00 Oxycodone /Acetaminophen 5-325mg Tab PO Q6H PRN Pain, Moderate (4-6) Senna/Docusate Sodium 2 tab 05/04/22 10:00 05/04/22 09:46 Sennosides/Docusate Sodium 8.6/50 Mg Tab PO Not Given BID [facility] Sodium Chloride 10 ml 04/17/22 22:00 05/04/22 09:28 Sodium Chloride 0.9% 10 Ml Flush Syringe IV 10 ml BID [facility] Administration Sodium Chloride 10 ml 04/17/22 19:48 Sodium Chloride 0.9% 10 Ml Flush Syringe IV PRN PRN LINE FLUSH Sodium Chloride 50 ml 04/30/22 09:00 05/03/22 15:45 Sodium Chloride 0.9% 50 Ml Ivpb IV 05/04/22 14:01 50 ml Q24HR@1400 [facility] Administration Zinc Sulfate 220 mg 04/30/22 22:00 05/04/22 09:27 Zinc Sulfate 220 Mg Cap PO 05/10/22 10:01 220 mg BID [facility] Administration Nutrition/Malnutrition Assess - Dietary Evaluation Nutrition/Malnutrition Findings: Nutrition Notes Start: 04/18/22 08:52 Freq: Status: Active Protocol: Document 04/29/22 11:29 ROMELIA (Rec: 04/29/22 11:55 ROMELIA [id number]) Nutrition Notes Initial or Follow up Reassessment Current Diagnosis Acute Kidney Injury,Diabetes, Sepsis,Hypertension, Respiratory Failure Other Pertinent Diagnosis s/p PEA w/ROSC, HFrEF, Pneumonia, Transaminitis, Rabdomyolisis, .. Current Diet TF-Nepro w/CARBSTEADY @ 35 ml/ hr (from D 04/21). Labs/Tests 04/29: BUN 30, Crea 1.6, Glu 236, Ca 8.1. Pertinent Medications 04/29: Humalog 4U, Propofol @ 3.456 ml/hr (91 Kcal), mothers nutritionally unremarkable. Height 5 ft 9 in Weight 115.2 kg [place] Body Weight (kg) 72.72 BMI 37.5 Weight change and time frame No body weight change reported in 11 days. Weight Status Obese Subjective/Other Information RD consult for routine F/U on TF tolerance/continuation assessment. TF continues as prescribed, no further information available at the time. Pt continues on Mechanical Ventilation, O2 saturation @ 100%, according to Physical Assessment History notes. Pt remains incontinent, according to Physical Assessment History notes. Pt presents blisters on the groin and on hand, according to Physical Assessment History notes. Percent of energy/protein needs met: Prescribed TF-Nepro w/ CARBSTEADY @ 35 ml/hr provides for energy/protein needs (1, 500 Kcal/68 g) during LOS, 77% Kcal; 90% AA. Including 91 Kcal from Propofol: 81% Kcal; 90% AA. Burn Absent Trauma Absent GI Symptoms None Food Allergy No Skin Integrity/Comment Blisters on the groin and on hand. Current % PO Other Minimum of two criteria No Fluid Accumulation N/A Reduced [employer] Strength N/A (non-severe) Protein-Calorie Malnutrition N\A #1 Nutrition Diagnosis Inadequate oral intake Diagnosis Progress(for reassessment Continues documentation) Is patient on ventilator? Yes Is Patient Ambulatory and/or Out of Bed No REE-([facility]-confined to bed) 2323.608 Kcal/Kg value to use for calculation 17 Approximate Energy Requirements Using 1958 kcal/Kg Calculation Used for Recommendations Kcal/kg Additional Notes Protein: 0.8-1.2 g/Kg AdjBW; 75-113 g/day. Fluids: 1 ml/Kcal, or as per MD. Nutrition Intervention Nutrition Support: Continue TF-Nepro w/CARBSTEADY @ 35 ml/hr. Flush: 220 ml water Q 4 hr, or as per MD. Kcal 1,500 Protein (gm) 68 Carbohydrates (gm) 134 Fat (gm) 80 Fluid (mL) 606 Fiber (gm) 11 % RDI: 77% Kcal; 90% AA. Goal #1 Provide at least 75% of energy /protein needs through Enteral Feeding during LOS. Follow-Up By: 05/06/22 Additional Comments Continue monitoring TF tolerance, ventilation status, vasopressors, and BM.
[2022-04-22] MEDS ORDERED: oxyCODONE /ACETAMINOPHEN 5-325MG TAB FEEDTUBE PRN (11:05)
--- NOTE | 2022-04-22 13:15 | Progress Note ---
Assessment and Plan Acute hypoxemic respiratory failure Altered mental status Aspiration pneumonia Shock (Cardiogenic +/- Septic) Severe Metabolic Acidosis Morbid Obesity Diabetes type II Hypotension Obesity hypoventilation syndrome (Suspect significant element of cardiorenal syndrome at play here; also pulmonary edema pattern is persistent. Patient also remains in positive fluid balance despite putting out > 2 liters of urine q24h) - reduce IVF to 50/ml and stop after current bag - begin Dobutamine for inotropic support (Stop if worsening hypotension or tachyarrythmia's develop) - CVP's q-shift - wean off Vasopressin for target MAP > 65-70 mmHg & SBP > 110mmHg in short term - strict I's & O's and target negative fuid balance - increase Seroquel dose - follow Procalcitonin result - care plan explained at length to his in the room again today - follow QT interval re: Propofol, Seroquel & Levaquin - complete 5 days empiric CAP therapy with Levaquin - prn vasopressors for target MAP > 65mmHg - continue daily SAT and SBT assessment as tolerated - continue to wean supplemental oxygen for target O2 sat's > 90% acutely - VAP bundle addressed - continue lung protective strategies - continue bronchodilators with pulmonary hygiene per RT - wean per pulmonary driven protocols otherwise - avoid nephrotoxins, renally dose all medications - continue accuchecks with glycemic control per SSI (While critically ill target blood glucose of 140-180 mg/dL; avoid hypoglycemia) - sedation prn for target RASS 0 to -1 - continue to avoid benzodiazepine's, reduce the possibility of delirium - AB's per ID rec's - prn analgesia per CPOT score - Maintenance of sleep-wake cycle, avoid delirium - continue enteral nutritional support at goal rate as tolerated - G.I. & VTE prophylaxis - PT/OT/ROM exercises - continue mobility protocols for pressure ulcer prophylaxis - Monitor hemodynamics closely - continue other care per attending / other consultants - discharge planning ongoing concurrently COVID SPECIFIC INTERVENTIONS - COVID-19 test result pending .... Re-evaluate in am & prn CONDITION: CRITICAL PROGNOSIS: GUARDED CODE STATUS: FULL CODE The high probability of a clinically significant, sudden or life-threatening deterioration of the [respiratory, cardiovascular, renal & neurologic] system(s) required my full and direct attention, intervention and personal management. The aggregate critical care time was [37] minutes without overlap. Time includes spent on; [x] Data Review and interpretation [x] Patient assessment and monitoring of vital signs [x] Documentation [x] Medication orders and management Subjective Date of service: 04/22/22 Principal diagnosis: AHRF; AMS; Pneumonia; Shock; DM II; Severe Metabolic Acidosis Interval history: Patient is seen today for: Acute hypoxemic respiratory failure; AMS; Aspiration pneumonia; Shock (Cardiogenic +/- Septic); DM II; Severe Metabolic Acidosis Seen and examined at bedside; 24hour events reviewed; nursing and respiratory care staff consulted; no adverse overnight events reported to me; resting in bed; remains on MVS; FiO2 at 60%; LHCath yesterday demonstrates non obstructive CMOP; seen by neurology and recommendations noted; severe desaturations persist during SAT's due to agitation and poor pulmonary reserve; CXR demonstrates increased pulmonary edema as well; remains non oliguric. Objective Vital Signs - 12hr 04/22/22 04/22/22 04/22/22 02:01 03:01 03:21 Temperature Pulse Rate 88 127 H 94 H Pulse Rate [ From Monitor] Respiratory 16 15 Rate Blood Pressure 107/69 107/69 O2 Sat by Pulse 92 90 Oximetry 04/22/22 04/22/22 04/22/22 03:23 03:42 04:01 Temperature 98.5 F Pulse Rate 110 H 95 H Pulse Rate [ 96 H From Monitor] Respiratory 16 18 Rate Blood Pressure 144/93 145/88 O2 Sat by Pulse 95 93 89 Oximetry 04/22/22 04/22/22 04/22/22 05:00 06:00 07:00 Temperature Pulse Rate 75 78 84 Pulse Rate [ From Monitor] Respiratory 16 16 16 Rate Blood Pressure 113/70 111/78 120/80 O2 Sat by Pulse 92 93 94 Oximetry 04/22/22 04/22/22 04/22/22 08:00 08:38 09:00 Temperature 99.2 F Pulse Rate 80 84 83 Pulse Rate [ 96 H From Monitor] Respiratory 16 16 Rate Blood Pressure 129/82 173/83 117/79 O2 Sat by Pulse 95 93 94 Oximetry 04/22/22 04/22/22 04/22/22 10:00 11:01 12:00 Temperature 98.9 F Pulse Rate 95 H 89 79 Pulse Rate [ 96 H From Monitor] Respiratory 18 17 16 Rate Blood Pressure 138/83 154/77 124/70 O2 Sat by Pulse 95 89 95 Oximetry Constitutional: no acute distress, other (elderly obese 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 MVS) Eyes: non-icteric ENT: oropharynx moist, other (ETT 24 cm DIANNE) Neck: supple, no JVD Effort: normal Ascultation: Bilateral: diminished breath sounds, rales (improved) Percussion: Bilateral: not dull Cardiovascular: irregular rhythm, other (No R/M) Gastrointestinal: normoactive bowel sounds, soft, non-tender, non-distended (protuberant) Integumentary: normal Extremities: no cyanosis, no edema, pulses normal, no ischemia or petechiae Neurologic: non-focal exam (grossly), pupils equal and round, unable to assess Psychiatric: other (Unable to assess due to mental status.) CBC and BMP: 04/22/22 04:33 04/22/22 04:00 ABG, PT/INR, D-dimer: ABG ABG pH 7.395 pH Units (7.350-7.450) 04/22/22 10:13 ABG pCO2 47.4 mm Hg 04/22/22 10:13 ABG pO2 56.1 mm Hg (80.0-90.0) L 04/22/22 10:13 ABG O2 Saturation 89.3 % (95.0-99.0) L 04/22/22 10:13 PT/INR, D-dimer PT 15.6 Sec. (12.2-14.9) H 04/18/22 Unknown INR 1.08 (0.87-1.13) 04/18/22 Unknown Abnormal lab findings: Abnormal Labs 04/17/22 04/17/22 04/17/22 19:18 19:55 19:56 WBC RBC Hgb Hct Plt Count Seg Neutrophils % Seg Neuts % (Manual) Lymphocytes % (Manual) Seg Neutrophils # Seg Neutrophils # Man PT Activated Coag Time Heparin Anti-Xa Level ABG pH 7.120 L* ABG pO2 45.3 L ABG HCO3 18.5 L ABG O2 Saturation 68.3 L ABG Base Excess -11.5 L ABG Hemoglobin Oxyhemoglobin 66.8 L Sodium Potassium Chloride 94.2 L Carbon Dioxide 17 L BUN Creatinine 1.6 H Glucose 315 H POC Glucose 277 H Lactic Acid Calcium Phosphorus Magnesium AST 529 H ALT 318 H Alkaline Phosphatase 137 H Total Creatine Kinase 398 H CK-MB (CK-2) 17.9 H CK-MB (CK-2) Rel Index 4.4 H Troponin T 0.205 H* Total Protein Albumin Triglycerides Urine Blood Urine WBC (Auto) Urine Creatinine 04/17/22 04/17/22 04/17/22 19:58 19:58 21:42 WBC 11.9 H RBC 5.17 H Hgb 15.5 H Hct 48.0 H Plt Count Seg Neutrophils % 71.7 H Seg Neuts % (Manual) Lymphocytes % (Manual) Seg Neutrophils # 8.5 H Seg Neutrophils # Man PT Activated Coag Time Heparin Anti-Xa Level ABG pH ABG pO2 ABG HCO3 ABG O2 Saturation ABG Base Excess ABG Hemoglobin Oxyhemoglobin Sodium Potassium Chloride 95.0 L Carbon Dioxide 19 L BUN Creatinine 1.5 H Glucose 306 H POC Glucose Lactic Acid Calcium Phosphorus Magnesium AST ALT Alkaline Phosphatase Total Creatine Kinase 412 H CK-MB (CK-2) 19.2 H CK-MB (CK-2) Rel Index 4.6 H Troponin T 0.285 H* D Total Protein Albumin Triglycerides Urine Blood Urine WBC (Auto) Urine Creatinine 04/17/22 04/18/22 04/18/22 21:42 00:40 01:07 WBC RBC Hgb Hct Plt Count Seg Neutrophils % Seg Neuts % (Manual) Lymphocytes % (Manual) Seg Neutrophils # Seg Neutrophils # Man PT Activated Coag Time Heparin Anti-Xa Level ABG pH ABG pO2 ABG HCO3 ABG O2 Saturation ABG Base Excess ABG Hemoglobin Oxyhemoglobin Sodium Potassium Chloride Carbon Dioxide BUN Creatinine Glucose POC Glucose 320 H Lactic Acid 7.90 H* 7.90 H* Calcium Phosphorus Magnesium AST ALT Alkaline Phosphatase Total Creatine Kinase CK-MB (CK-2) CK-MB (CK-2) Rel Index Troponin T Total Protein Albumin Triglycerides Urine Blood Urine WBC (Auto) Urine Creatinine 04/18/22 04/18/22 04/18/22 01:07 04:00 06:04 WBC RBC Hgb Hct Plt Count Seg Neutrophils % Seg Neuts % (Manual) Lymphocytes % (Manual) Seg Neutrophils # Seg Neutrophils # Man PT Activated Coag Time Heparin Anti-Xa Level < 0.10 L ABG pH ABG pO2 ABG HCO3 ABG O2 Saturation ABG Base Excess ABG Hemoglobin Oxyhemoglobin Sodium Potassium Chloride Carbon Dioxide BUN Creatinine Glucose POC Glucose 305 H Lactic Acid Calcium Phosphorus Magnesium AST ALT Alkaline Phosphatase Total Creatine Kinase 488 H CK-MB (CK-2) 25.3 H CK-MB (CK-2) Rel Index 5.1 H Troponin T 0.665 H* D Total Protein Albumin Triglycerides Urine Blood Urine WBC (Auto) Urine Creatinine 04/18/22 04/18/22 04/18/22 06:20 11:10 12:48 WBC RBC Hgb Hct Plt Count Seg Neutrophils % Seg Neuts % (Manual) Lymphocytes % (Manual) Seg Neutrophils # Seg Neutrophils # Man PT Activated Coag Time Heparin Anti-Xa Level < 0.10 L ABG pH 7.119 L* 7.304 L ABG pO2 56.1 L 103.5 H ABG HCO3 18.4 L 14.4 L ABG O2 Saturation 80.7 L ABG Base Excess -11.4 L -10.6 L ABG Hemoglobin 13.5 L Oxyhemoglobin 79.2 L Sodium Potassium Chloride Carbon Dioxide BUN Creatinine Glucose POC Glucose Lactic Acid Calcium Phosphorus Magnesium AST ALT Alkaline Phosphatase Total Creatine Kinase CK-MB (CK-2) CK-MB (CK-2) Rel Index Troponin T Total Protein Albumin Triglycerides Urine Blood Urine WBC (Auto) Urine Creatinine 04/18/22 04/18/22 04/18/22 13:13 16:00 16:00 WBC RBC Hgb Hct Plt Count Seg Neutrophils % Seg Neuts % (Manual) Lymphocytes % (Manual) Seg Neutrophils # Seg Neutrophils # Man PT Activated Coag Time Heparin Anti-Xa Level ABG pH ABG pO2 ABG HCO3 ABG O2 Saturation ABG Base Excess ABG Hemoglobin Oxyhemoglobin Sodium Potassium Chloride Carbon Dioxide BUN Creatinine Glucose POC Glucose 334 H Lactic Acid 7.00 H* Calcium Phosphorus 5.70 H Magnesium 1.30 L AST ALT Alkaline Phosphatase Total Creatine Kinase 969 H CK-MB (CK-2) 55.9 H CK-MB (CK-2) Rel Index 5.7 H Troponin T 1.580 H* D Total Protein Albumin Triglycerides Urine Blood Urine WBC (Auto) Urine Creatinine 04/18/22 04/18/22 04/18/22 16:00 18:00 18:01 WBC RBC Hgb Hct Plt Count Seg Neutrophils % Seg Neuts % (Manual) Lymphocytes % (Manual) Seg Neutrophils # Seg Neutrophils # Man PT Activated Coag Time Heparin Anti-Xa Level < 0.10 L ABG pH ABG pO2 ABG HCO3 ABG O2 Saturation ABG Base Excess ABG Hemoglobin Oxyhemoglobin Sodium 136 L Potassium 6.3 H* D Chloride 97.6 L Carbon Dioxide 18 L BUN 34 H Creatinine 3.5 H Glucose 409 H POC Glucose 397 H Lactic Acid Calcium 6.8 L Phosphorus Magnesium AST ALT Alkaline Phosphatase Total Creatine Kinase CK-MB (CK-2) CK-MB (CK-2) Rel Index Troponin T Total Protein Albumin Triglycerides Urine Blood Urine WBC (Auto) Urine Creatinine 04/18/22 04/18/22 04/18/22 19:13 20:58 21:22 WBC RBC Hgb Hct Plt Count Seg Neutrophils % Seg Neuts % (Manual) Lymphocytes % (Manual) Seg Neutrophils # Seg Neutrophils # Man PT Activated Coag Time Heparin Anti-Xa Level ABG pH 7.502 H ABG pO2 144.5 H ABG HCO3 ABG O2 Saturation ABG Base Excess ABG Hemoglobin 12.5 L Oxyhemoglobin Sodium Potassium Chloride Carbon Dioxide BUN Creatinine Glucose POC Glucose 321 H 307 H Lactic Acid Calcium Phosphorus Magnesium AST ALT Alkaline Phosphatase Total Creatine Kinase CK-MB (CK-2) CK-MB (CK-2) Rel Index Troponin T Total Protein Albumin Triglycerides Urine Blood Urine WBC (Auto) Urine Creatinine 04/18/22 04/18/22 04/18/22 21:30 21:30 Unknown WBC RBC Hgb Hct Plt Count Seg Neutrophils % Seg Neuts % (Manual) 81.0 H Lymphocytes % (Manual) 12.0 L Seg Neutrophils # 9.8 H Seg Neutrophils # Man 8.7 H PT Activated Coag Time Heparin Anti-Xa Level ABG pH ABG pO2 ABG HCO3 ABG O2 Saturation ABG Base Excess ABG Hemoglobin Oxyhemoglobin Sodium Potassium Chloride 96.6 L Carbon Dioxide BUN 37 H Creatinine 3.6 H Glucose 312 H POC Glucose Lactic Acid 5.50 H* Calcium 7.3 L Phosphorus Magnesium AST ALT Alkaline Phosphatase Total Creatine Kinase CK-MB (CK-2) CK-MB (CK-2) Rel Index Troponin T Total Protein Albumin Triglycerides Urine Blood Urine WBC (Auto) Urine Creatinine 04/18/22 04/18/22 04/19/22 Unknown Unknown 00:35 WBC RBC Hgb Hct Plt Count Seg Neutrophils % Seg Neuts % (Manual) Lymphocytes % (Manual) Seg Neutrophils # Seg Neutrophils # Man PT 15.6 H Activated Coag Time Heparin Anti-Xa Level ABG pH ABG pO2 ABG HCO3 ABG O2 Saturation ABG Base Excess ABG Hemoglobin Oxyhemoglobin Sodium Potassium Chloride Carbon Dioxide 18 L BUN 26 H Creatinine 2.5 H D Glucose 330 H POC Glucose Lactic Acid Calcium 7.9 L Phosphorus Magnesium AST 463 H ALT 249 H Alkaline Phosphatase Total Creatine Kinase CK-MB (CK-2) CK-MB (CK-2) Rel Index Troponin T 2.670 H* D Total Protein Albumin 3.3 L Triglycerides Urine Blood Urine WBC (Auto) Urine Creatinine 04/19/22 04/19/22 04/19/22 00:39 02:08 02:08 WBC RBC Hgb Hct Plt Count Seg Neutrophils % Seg Neuts % (Manual) Lymphocytes % (Manual) Seg Neutrophils # Seg Neutrophils # Man PT Activated Coag Time Heparin Anti-Xa Level ABG pH ABG pO2 ABG HCO3 ABG O2 Saturation ABG Base Excess ABG Hemoglobin Oxyhemoglobin Sodium Potassium Chloride Carbon Dioxide BUN Creatinine Glucose POC Glucose 263 H Lactic Acid Calcium Phosphorus Magnesium AST ALT Alkaline Phosphatase Total Creatine Kinase CK-MB (CK-2) CK-MB (CK-2) Rel Index Troponin T Total Protein Albumin Triglycerides Urine Blood Large A Urine WBC (Auto) 88.0 H Urine Creatinine 90.9 H 04/19/22 04/19/22 04/19/22 02:08 03:45 03:45 WBC 14.2 H RBC Hgb Hct Plt Count Seg Neutrophils % Seg Neuts % (Manual) Lymphocytes % (Manual) Seg Neutrophils # Seg Neutrophils # Man PT Activated Coag Time Heparin Anti-Xa Level 0.18 L ABG pH ABG pO2 ABG HCO3 ABG O2 Saturation ABG Base Excess ABG Hemoglobin Oxyhemoglobin Sodium Potassium Chloride 94.2 L Carbon Dioxide BUN 39 H Creatinine 3.8 H Glucose 243 H POC Glucose Lactic Acid Calcium 7.1 L Phosphorus Magnesium 1.50 L AST 380 H ALT 289 H Alkaline Phosphatase Total Creatine Kinase CK-MB (CK-2) CK-MB (CK-2) Rel Index Troponin T Total Protein 5.4 L Albumin 2.5 L Triglycerides Urine Blood Urine WBC (Auto) Urine Creatinine 04/19/22 04/19/22 04/19/22 03:45 06:01 07:11 WBC RBC Hgb Hct Plt Count Seg Neutrophils % Seg Neuts % (Manual) Lymphocytes % (Manual) Seg Neutrophils # Seg Neutrophils # Man PT Activated Coag Time Heparin Anti-Xa Level ABG pH ABG pO2 ABG HCO3 ABG O2 Saturation ABG Base Excess ABG Hemoglobin Oxyhemoglobin Sodium Potassium Chloride Carbon Dioxide BUN Creatinine Glucose POC Glucose 165 H Lactic Acid 4.00 H* Calcium Phosphorus Magnesium AST ALT Alkaline Phosphatase Total Creatine Kinase 3270 H CK-MB (CK-2) 28.5 H CK-MB (CK-2) Rel Index Troponin T 2.980 H* Total Protein Albumin Triglycerides Urine Blood Urine WBC (Auto) Urine Creatinine 04/19/22 04/19/22 04/19/22 07:50 08:50 12:49 WBC RBC Hgb Hct Plt Count Seg Neutrophils % Seg Neuts % (Manual) Lymphocytes % (Manual) Seg Neutrophils # Seg Neutrophils # Man PT Activated Coag Time Heparin Anti-Xa Level ABG pH 7.471 H ABG pO2 58.9 L ABG HCO3 27.1 H ABG O2 Saturation 91.7 L ABG Base Excess 3.4 H ABG Hemoglobin 12.2 L Oxyhemoglobin 90.0 L Sodium Potassium Chloride Carbon Dioxide BUN Creatinine Glucose POC Glucose 331 H Lactic Acid 3.40 H* Calcium Phosphorus Magnesium AST ALT Alkaline Phosphatase Total Creatine Kinase CK-MB (CK-2) CK-MB (CK-2) Rel Index Troponin T Total Protein Albumin Triglycerides Urine Blood Urine WBC (Auto) Urine Creatinine 04/19/22 04/19/22 04/19/22 16:15 19:25 21:17 WBC RBC Hgb Hct Plt Count Seg Neutrophils % Seg Neuts % (Manual) Lymphocytes % (Manual) Seg Neutrophils # Seg Neutrophils # Man PT Activated Coag Time Heparin Anti-Xa Level ABG pH ABG pO2 ABG HCO3 ABG O2 Saturation ABG Base Excess ABG Hemoglobin Oxyhemoglobin Sodium Potassium Chloride Carbon Dioxide BUN Creatinine Glucose POC Glucose 304 H 251 H Lactic Acid 4.00 H* Calcium Phosphorus Magnesium AST ALT Alkaline Phosphatase Total Creatine Kinase CK-MB (CK-2) CK-MB (CK-2) Rel Index Troponin T Total Protein Albumin Triglycerides Urine Blood Urine WBC (Auto) Urine Creatinine 04/19/22 04/20/22 04/20/22 23:00 04:12 04:12 WBC 12.2 H RBC Hgb 11.6 L Hct 35.3 L Plt Count Seg Neutrophils % Seg Neuts % (Manual) Lymphocytes % (Manual) Seg Neutrophils # Seg Neutrophils # Man PT Activated Coag Time Heparin Anti-Xa Level 0.15 L ABG pH ABG pO2 ABG HCO3 ABG O2 Saturation ABG Base Excess ABG Hemoglobin Oxyhemoglobin Sodium Potassium Chloride Carbon Dioxide BUN Creatinine Glucose POC Glucose 236 H Lactic Acid Calcium Phosphorus Magnesium AST ALT Alkaline Phosphatase Total Creatine Kinase CK-MB (CK-2) CK-MB (CK-2) Rel Index Troponin T Total Protein Albumin Triglycerides Urine Blood Urine WBC (Auto) Urine Creatinine 04/20/22 04/20/22 04/20/22 04:12 04:12 09:10 WBC RBC Hgb Hct Plt Count Seg Neutrophils % Seg Neuts % (Manual) Lymphocytes % (Manual) Seg Neutrophils # Seg Neutrophils # Man PT Activated Coag Time Heparin Anti-Xa Level ABG pH ABG pO2 ABG HCO3 ABG O2 Saturation ABG Base Excess ABG Hemoglobin Oxyhemoglobin Sodium 133 L Potassium 3.5 L Chloride 91.9 L Carbon Dioxide BUN 44 H Creatinine 4.6 H Glucose 263 H POC Glucose Lactic Acid 2.80 H* Calcium 7.2 L Phosphorus Magnesium AST 553 H ALT 471 H Alkaline Phosphatase Total Creatine Kinase 3019 H CK-MB (CK-2) CK-MB (CK-2) Rel Index Troponin T Total Protein 5.7 L Albumin 2.4 L Triglycerides 254 H Urine Blood Urine WBC (Auto) Urine Creatinine 04/20/22 04/20/22 04/20/22 09:31 11:18 18:08 WBC RBC Hgb Hct Plt Count Seg Neutrophils % Seg Neuts % (Manual) Lymphocytes % (Manual) Seg Neutrophils # Seg Neutrophils # Man PT Activated Coag Time Heparin Anti-Xa Level ABG pH 7.512 H ABG pO2 ABG HCO3 26.2 H ABG O2 Saturation ABG Base Excess 3.2 H ABG Hemoglobin 9.0 L Oxyhemoglobin Sodium Potassium Chloride Carbon Dioxide BUN Creatinine Glucose POC Glucose 285 H 293 H Lactic Acid Calcium Phosphorus Magnesium AST ALT Alkaline Phosphatase Total Creatine Kinase CK-MB (CK-2) CK-MB (CK-2) Rel Index Troponin T Total Protein Albumin Triglycerides Urine Blood Urine WBC (Auto) Urine Creatinine 04/20/22 04/21/22 04/21/22 21:40 00:10 04:00 WBC RBC Hgb Hct Plt Count Seg Neutrophils % Seg Neuts % (Manual) Lymphocytes % (Manual) Seg Neutrophils # Seg Neutrophils # Man PT Activated Coag Time Heparin Anti-Xa Level 0.16 L ABG pH ABG pO2 59.4 L ABG HCO3 29.7 H ABG O2 Saturation 90.1 L ABG Base Excess 3.1 H ABG Hemoglobin 11.6 L Oxyhemoglobin 88.2 L Sodium Potassium Chloride Carbon Dioxide BUN Creatinine Glucose POC Glucose 290 H Lactic Acid Calcium Phosphorus Magnesium AST ALT Alkaline Phosphatase Total Creatine Kinase CK-MB (CK-2) CK-MB (CK-2) Rel Index Troponin T Total Protein Albumin Triglycerides Urine Blood Urine WBC (Auto) Urine Creatinine 04/21/22 04/21/22 04/21/22 04:30 04:30 05:57 WBC 17.9 H RBC Hgb 11.7 L Hct 35.1 L Plt Count Seg Neutrophils % Seg Neuts % (Manual) Lymphocytes % (Manual) Seg Neutrophils # Seg Neutrophils # Man PT Activated Coag Time Heparin Anti-Xa Level ABG pH ABG pO2 ABG HCO3 ABG O2 Saturation ABG Base Excess ABG Hemoglobin Oxyhemoglobin Sodium Potassium Chloride 95.7 L Carbon Dioxide BUN 45 H Creatinine 4.2 H Glucose 309 H POC Glucose 265 H Lactic Acid Calcium 7.4 L Phosphorus 5.60 H D Magnesium 2.50 H AST 217 H ALT 376 H Alkaline Phosphatase Total Creatine Kinase CK-MB (CK-2) CK-MB (CK-2) Rel Index Troponin T Total Protein Albumin 2.8 L Triglycerides Urine Blood Urine WBC (Auto) Urine Creatinine 04/21/22 04/21/22 04/21/22 12:14 13:45 18:10 WBC RBC Hgb Hct Plt Count Seg Neutrophils % Seg Neuts % (Manual) Lymphocytes % (Manual) Seg Neutrophils # Seg Neutrophils # Man PT Activated Coag Time 179 H Heparin Anti-Xa Level ABG pH ABG pO2 ABG HCO3 ABG O2 Saturation ABG Base Excess ABG Hemoglobin Oxyhemoglobin Sodium Potassium Chloride Carbon Dioxide BUN Creatinine Glucose POC Glucose 248 H 240 H Lactic Acid Calcium Phosphorus Magnesium AST ALT Alkaline Phosphatase Total Creatine Kinase CK-MB (CK-2) CK-MB (CK-2) Rel Index Troponin T Total Protein Albumin Triglycerides Urine Blood Urine WBC (Auto) Urine Creatinine 04/22/22 04/22/22 04/22/22 00:09 04:00 04:33 WBC 12.4 H RBC 3.34 L Hgb 9.8 L Hct 29.7 L Plt Count 138 L Seg Neutrophils % Seg Neuts % (Manual) Lymphocytes % (Manual) Seg Neutrophils # Seg Neutrophils # Man PT Activated Coag Time Heparin Anti-Xa Level ABG pH ABG pO2 ABG HCO3 ABG O2 Saturation ABG Base Excess ABG Hemoglobin Oxyhemoglobin Sodium Potassium Chloride Carbon Dioxide BUN 40 H Creatinine 2.9 H Glucose 269 H POC Glucose 248 H Lactic Acid Calcium 7.3 L Phosphorus Magnesium AST ALT Alkaline Phosphatase Total Creatine Kinase 973 H CK-MB (CK-2) CK-MB (CK-2) Rel Index Troponin T Total Protein Albumin Triglycerides Urine Blood Urine WBC (Auto) Urine Creatinine 04/22/22 04/22/22 10:13 11:51 WBC RBC Hgb Hct Plt Count Seg Neutrophils % Seg Neuts % (Manual) Lymphocytes % (Manual) Seg Neutrophils # Seg Neutrophils # Man PT Activated Coag Time Heparin Anti-Xa Level ABG pH ABG pO2 56.1 L ABG HCO3 28.4 H ABG O2 Saturation 89.3 L ABG Base Excess ABG Hemoglobin 9.8 L Oxyhemoglobin 87.7 L Sodium Potassium Chloride Carbon Dioxide BUN Creatinine Glucose POC Glucose 302 H Lactic Acid Calcium Phosphorus Magnesium AST ALT Alkaline Phosphatase Total Creatine Kinase CK-MB (CK-2) CK-MB (CK-2) Rel Index Troponin T Total Protein Albumin Triglycerides Urine Blood Urine WBC (Auto) Urine Creatinine Allied health notes reviewed: nursing
[2022-04-22] MEDS ORDERED: SODIUM CHLORIDE 0.9% 500 ML 500 ML ONE (13:31)
[2022-04-22] MEDS ORDERED: DOBUTamine/D5W 500 MG/250 ML 500 MG/250 ML BAG IV SCH (14:00)
[2022-04-22] MEDS ORDERED: WATER IV SCH ×2 (14:00)
[2022-04-22] MEDS ORDERED: DOBUTAMINE IV SCH ×2 (14:00)
[2022-04-22] MEDS ORDERED: DEXTROSE 5% IV SCH ×2 (14:00)
[2022-04-22] MEDS: DEXTROSE 5% IV SCH (14:05)
[2022-04-22] MEDS: WATER IV SCH (14:05)
[2022-04-22] MEDS: DOBUTAMINE IV SCH (14:05)
[2022-04-22] MEDS: QUEtiapine 100 MG TAB FEEDTUBE SCH (21:13)
[2022-04-22] MEDS ORDERED: INSULIN GLARGINE 100 UNITS/ML SUB-Q SCH (22:00)
[2022-04-22] MEDS: ACETAMINOPHEN 325 MG TAB PO PRN (23:52)
[2022-04-23] MEDS: fentaNYL DRIP Premix 2,000 MCG/100 ML BAG IV SCH ×4 (03:18→21:14)
[2022-04-23 04:26] LABS: Hematocrit 29.9 % (35.5-45.6); Hemoglobin 9.9 gm/dl (11.8-15.2); Mean Corpuscular HGB Conc 33 % (32-34); Mean Corpuscular Volume 90 fl (84-94); Platelet Count 162 K/mm3 (140-440); Red Blood Count 3.34 M/mm3 (3.65-5.03); Red Cell Distribution Width 14.6 % (13.2-15.2)
[2022-04-23] MEDS: DEXTROSE 5% IV SCH (04:48)
[2022-04-23] MEDS: WATER IV SCH (04:48)
[2022-04-23] MEDS: DOBUTAMINE IV SCH (04:48)
[2022-04-23 04:54] LABS: Albumin 2.6 g/dL (3.9-5); Calcium 7.8 mg/dL (8.4-10.2)
[2022-04-23 05:00] LABS: Band Neutrophils # (Manual) 0.2 K/mm3; Basophils % (Manual) 0 % (0.0-1.8); Total Cells Counted 100
[2022-04-23 05:01] LABS: Platelet Estimate Consistent w Auto
[2022-04-23] MEDS: INSULIN LISPRO 100 UNIT/ML SUB-Q SCH ×5 (05:29→18:12)
--- NOTE | 2022-04-23 05:59 | XRay Report ---
XR chest 1V ap INDICATION / CLINICAL INFORMATION: follow up respiratory failure. COMPARISON: Radiograph from yesterday. FINDINGS: SUPPORT DEVICES: Unchanged. HEART /PULMONARY VASCULATURE: Unchanged. LUNGS / PLEURA: Lung parenchyma is not significantly changed. No pneumothorax. IMPRESSION: 1. No significant interval change. Signer Name: Buddy Barrow MD Signed: 04/23/2022 5:54 AM Workstation Name: [id number]
--- NOTE | 2022-04-23 09:14 | Progress Note ---
Assessment and Plan This is a 62 year old male with OHS, HTN, DM, metabolic syndrome, s/p vfib cardiac arrest, Septic shock, aspiration pneumonia, transaminitis, VINCENT with acute metabolic encephalopathy Acute hypoxemic respiratory failure on MVS s/p cardiac arrest Altered mental status Aspiration pneumonia Shock (Cardiogenic +/- Septic) Severe Metabolic Acidosis Morbid Obesity Diabetes type II Hypotension Obesity hypoventilation syndrome Turn down fixed dose Dobutamine to 2.5 USS for pleural effusions- being done at the bedside Titrate Propofol to RASS 0 to -1 Add Fentanyl SAT/SBT today Updated at the upside - prn vasopressors for target MAP > 65mmHg - continue to titrate supplemental oxygen to keep SpO2 89-92% - VAP bundle addressed, aspiration precatuions - continue lung protective strategies - continue bronchodilators with pulmonary hygiene per RT - wean per pulmonary driven protocols otherwise - avoid nephrotoxins, renally dose all medications - continue accuchecks with glycemic control per SSI (While critically ill target blood glucose of 140-180 mg/dL; avoid hypoglycemia) - sedation prn for target RASS 0 to -1 - continue to avoid benzodiazepines, reduce the possibility of delirium - prn analgesia per CPOT score - Maintenance of sleep-wake cycle, avoid delirium - continue enteral nutritional support at goal rate as tolerated - Stress ulcer and VTE prophylaxis - continue mobility protocols for pressure ulcer prevention - Monitor hemodynamics closely - continue other care per attending / other consultants - discharge planning ongoing concurrently COVID SPECIFIC INTERVENTIONS - COVID-19 test result negative CONDITION: CRITICAL PROGNOSIS: GUARDED CODE STATUS: FULL CODE The high probability of a clinically significant, sudden or life-threatening deterioration of the [respiratory, cardiovascular, renal & neurologic] system(s) required my full and direct attention, intervention and personal management. The aggregate critical care time was [35] minutes without overlap. Time includes spent on; [x] Data Review and interpretation [x] Patient assessment and monitoring of vital signs [x] Documentation [x] Medication orders and management Subjective Date of service: 04/23/22 Principal diagnosis: AHRF; AMS; Pneumonia; Shock; DM II; Severe Metabolic Acidosis Interval history: Patient is seen today for: Acute hypoxemic respiratory failure; AMS; Aspiration pneumonia; Shock (Cardiogenic +/- Septic); DM II; Severe Metabolic Acidosis Seen and examined at bedside; 24hour events reviewed; nursing and respiratory care staff consulted; no adverse overnight events reported to me; resting in bed; remains on MVS; PEEP +8/45%, obeying simple commands; no emesis or overt aspiration; s/p left heart cath ; no fevers, no vomiting. Hypertensive when sedation was turned off this morning Echocardiogram shows EF of 15 to 20% Left heart cath showed severe nonischemic cardiomyopathy with patent coronary arteries, which per cardiology presumably resulted in a primary cardiac arrest.When blood pressure tolerates, he will need optimal medical therapy for afterload, beta-blockers, and long-term oral anticoagulation. Eventually from a cardiac standpoint, will need predischarge device therapy for secondary prevention of SCD, once he is off the vent and clinical status is optimized. Objective Vital Signs - 12hr 04/22/22 04/22/22 04/22/22 22:00 23:00 23:39 Temperature Pulse Rate 108 H 105 H 107 H Pulse Rate [ From Monitor] Pulse Rate [ Left Dorsalis Pedis] Pulse Rate [ Left Radial] Pulse Rate [ Right Dorsalis Pedis] Pulse Rate [ Right Radial] Respiratory 18 17 20 Rate Blood Pressure 138/69 129/74 138/69 O2 Sat by Pulse 96 97 99 Oximetry 04/22/22 04/22/22 04/23/22 23:51 23:57 00:00 Temperature 101.0 F H Pulse Rate 103 H 104 H Pulse Rate [ 104 H From Monitor] Pulse Rate [ Left Dorsalis Pedis] Pulse Rate [ Left Radial] Pulse Rate [ Right Dorsalis Pedis] Pulse Rate [ Right Radial] Respiratory 17 Rate Blood Pressure 129/74 135/74 O2 Sat by Pulse 99 97 Oximetry 04/23/22 04/23/22 04/23/22 01:00 02:01 03:00 Temperature Pulse Rate 100 H 109 H 114 H Pulse Rate [ From Monitor] Pulse Rate [ Left Dorsalis Pedis] Pulse Rate [ Left Radial] Pulse Rate [ Right Dorsalis Pedis] Pulse Rate [ Right Radial] Respiratory 19 21 18 Rate Blood Pressure 127/74 140/77 132/71 O2 Sat by Pulse 95 97 94 Oximetry 04/23/22 04/23/22 04/23/22 04:00 05:00 06:00 Temperature 100.4 F H Pulse Rate 106 H 102 H 93 H Pulse Rate [ 102 H From Monitor] Pulse Rate [ Left Dorsalis Pedis] Pulse Rate [ Left Radial] Pulse Rate [ Right Dorsalis Pedis] Pulse Rate [ Right Radial] Respiratory 20 18 18 Rate Blood Pressure 129/71 128/69 135/71 O2 Sat by Pulse 93 95 94 Oximetry 04/23/22 04/23/22 07:00 07:30 Temperature 99.7 F H Pulse Rate 100 H Pulse Rate [ 100 H From Monitor] Pulse Rate [ 96 H Left Dorsalis Pedis] Pulse Rate [ 100 H Left Radial] Pulse Rate [ 96 H Right Dorsalis Pedis] Pulse Rate [ 100 H Right Radial] Respiratory 17 17 Rate Blood Pressure 135/66 135/66 O2 Sat by Pulse 94 94 Oximetry Constitutional: no acute distress, other (elderly obese 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 MVS) Eyes: non-icteric ENT: oropharynx moist, other (ETT 24 cm DIANNE) Neck: supple, no JVD Effort: normal Ascultation: Bilateral: diminished breath sounds, rales (improved) Percussion: Bilateral: not dull Cardiovascular: irregular rhythm, other (No R/M) Gastrointestinal: normoactive bowel sounds, soft, non-tender, non-distended ( protuberant) Integumentary: normal Extremities: no cyanosis, no edema, pulses normal, no ischemia or petechiae Neurologic: non-focal exam (grossly), pupils equal and round, unable to assess Psychiatric: other (Unable to assess due to mental status.) CBC and BMP: 04/24/22 06:00 04/24/22 06:00 ABG, PT/INR, D-dimer: ABG ABG pH 7.395 pH Units (7.350-7.450) 04/22/22 10:13 ABG pCO2 47.4 mm Hg 04/22/22 10:13 ABG pO2 56.1 mm Hg (80.0-90.0) L 04/22/22 10:13 ABG O2 Saturation 89.3 % (95.0-99.0) L 04/22/22 10:13 PT/INR, D-dimer PT 15.6 Sec. (12.2-14.9) H 04/18/22 Unknown INR 1.08 (0.87-1.13) 04/18/22 Unknown Abnormal lab findings: Abnormal Labs 04/17/22 04/17/22 04/17/22 19:18 19:55 19:56 WBC RBC Hgb Hct Plt Count Seg Neutrophils % Seg Neuts % (Manual) Lymphocytes % (Manual) Eosinophils % (Manual) Seg Neutrophils # Seg Neutrophils # Man Lymphocytes # (Manual) Eosinophils # (Manual) PT Activated Coag Time Heparin Anti-Xa Level ABG pH 7.120 L* ABG pO2 45.3 L ABG HCO3 18.5 L ABG O2 Saturation 68.3 L ABG Base Excess -11.5 L ABG Hemoglobin Oxyhemoglobin 66.8 L Sodium Potassium Chloride 94.2 L Carbon Dioxide 17 L BUN Creatinine 1.6 H Glucose 315 H POC Glucose 277 H Lactic Acid Calcium Phosphorus Magnesium AST 529 H ALT 318 H Alkaline Phosphatase 137 H Total Creatine Kinase 398 H CK-MB (CK-2) 17.9 H CK-MB (CK-2) Rel Index 4.4 H Troponin T 0.205 H* Total Protein Albumin Triglycerides Urine Blood Urine WBC (Auto) Urine Creatinine 04/17/22 04/17/22 04/17/22 19:58 19:58 21:42 WBC 11.9 H RBC 5.17 H Hgb 15.5 H Hct 48.0 H Plt Count Seg Neutrophils % 71.7 H Seg Neuts % (Manual) Lymphocytes % (Manual) Eosinophils % (Manual) Seg Neutrophils # 8.5 H Seg Neutrophils # Man Lymphocytes # (Manual) Eosinophils # (Manual) PT Activated Coag Time Heparin Anti-Xa Level ABG pH ABG pO2 ABG HCO3 ABG O2 Saturation ABG Base Excess ABG Hemoglobin Oxyhemoglobin Sodium Potassium Chloride 95.0 L Carbon Dioxide 19 L BUN Creatinine 1.5 H Glucose 306 H POC Glucose Lactic Acid Calcium Phosphorus Magnesium AST ALT Alkaline Phosphatase Total Creatine Kinase 412 H CK-MB (CK-2) 19.2 H CK-MB (CK-2) Rel Index 4.6 H Troponin T 0.285 H* D Total Protein Albumin Triglycerides Urine Blood Urine WBC (Auto) Urine Creatinine 04/17/22 04/18/22 04/18/22 21:42 00:40 01:07 WBC RBC Hgb Hct Plt Count Seg Neutrophils % Seg Neuts % (Manual) Lymphocytes % (Manual) Eosinophils % (Manual) Seg Neutrophils # Seg Neutrophils # Man Lymphocytes # (Manual) Eosinophils # (Manual) PT Activated Coag Time Heparin Anti-Xa Level ABG pH ABG pO2 ABG HCO3 ABG O2 Saturation ABG Base Excess ABG Hemoglobin Oxyhemoglobin Sodium Potassium Chloride Carbon Dioxide BUN Creatinine Glucose POC Glucose 320 H Lactic Acid 7.90 H* 7.90 H* Calcium Phosphorus Magnesium AST ALT Alkaline Phosphatase Total Creatine Kinase CK-MB (CK-2) CK-MB (CK-2) Rel Index Troponin T Total Protein Albumin Triglycerides Urine Blood Urine WBC (Auto) Urine Creatinine 04/18/22 04/18/22 04/18/22 01:07 04:00 06:04 WBC RBC Hgb Hct Plt Count Seg Neutrophils % Seg Neuts % (Manual) Lymphocytes % (Manual) Eosinophils % (Manual) Seg Neutrophils # Seg Neutrophils # Man Lymphocytes # (Manual) Eosinophils # (Manual) PT Activated Coag Time Heparin Anti-Xa Level < 0.10 L ABG pH ABG pO2 ABG HCO3 ABG O2 Saturation ABG Base Excess ABG Hemoglobin Oxyhemoglobin Sodium Potassium Chloride Carbon Dioxide BUN Creatinine Glucose POC Glucose 305 H Lactic Acid Calcium Phosphorus Magnesium AST ALT Alkaline Phosphatase Total Creatine Kinase 488 H CK-MB (CK-2) 25.3 H CK-MB (CK-2) Rel Index 5.1 H Troponin T 0.665 H* D Total Protein Albumin Triglycerides Urine Blood Urine WBC (Auto) Urine Creatinine 04/18/22 04/18/22 04/18/22 06:20 11:10 12:48 WBC RBC Hgb Hct Plt Count Seg Neutrophils % Seg Neuts % (Manual) Lymphocytes % (Manual) Eosinophils % (Manual) Seg Neutrophils # Seg Neutrophils # Man Lymphocytes # (Manual) Eosinophils # (Manual) PT Activated Coag Time Heparin Anti-Xa Level < 0.10 L ABG pH 7.119 L* 7.304 L ABG pO2 56.1 L 103.5 H ABG HCO3 18.4 L 14.4 L ABG O2 Saturation 80.7 L ABG Base Excess -11.4 L -10.6 L ABG Hemoglobin 13.5 L Oxyhemoglobin 79.2 L Sodium Potassium Chloride Carbon Dioxide BUN Creatinine Glucose POC Glucose Lactic Acid Calcium Phosphorus Magnesium AST ALT Alkaline Phosphatase Total Creatine Kinase CK-MB (CK-2) CK-MB (CK-2) Rel Index Troponin T Total Protein Albumin Triglycerides Urine Blood Urine WBC (Auto) Urine Creatinine 04/18/22 04/18/22 04/18/22 13:13 16:00 16:00 WBC RBC Hgb Hct Plt Count Seg Neutrophils % Seg Neuts % (Manual) Lymphocytes % (Manual) Eosinophils % (Manual) Seg Neutrophils # Seg Neutrophils # Man Lymphocytes # (Manual) Eosinophils # (Manual) PT Activated Coag Time Heparin Anti-Xa Level ABG pH ABG pO2 ABG HCO3 ABG O2 Saturation ABG Base Excess ABG Hemoglobin Oxyhemoglobin Sodium Potassium Chloride Carbon Dioxide BUN Creatinine Glucose POC Glucose 334 H Lactic Acid 7.00 H* Calcium Phosphorus 5.70 H Magnesium 1.30 L AST ALT Alkaline Phosphatase Total Creatine Kinase 969 H CK-MB (CK-2) 55.9 H CK-MB (CK-2) Rel Index 5.7 H Troponin T 1.580 H* D Total Protein Albumin Triglycerides Urine Blood Urine WBC (Auto) Urine Creatinine 04/18/22 04/18/22 04/18/22 16:00 18:00 18:01 WBC RBC Hgb Hct Plt Count Seg Neutrophils % Seg Neuts % (Manual) Lymphocytes % (Manual) Eosinophils % (Manual) Seg Neutrophils # Seg Neutrophils # Man Lymphocytes # (Manual) Eosinophils # (Manual) PT Activated Coag Time Heparin Anti-Xa Level < 0.10 L ABG pH ABG pO2 ABG HCO3 ABG O2 Saturation ABG Base Excess ABG Hemoglobin Oxyhemoglobin Sodium 136 L Potassium 6.3 H* D Chloride 97.6 L Carbon Dioxide 18 L BUN 34 H Creatinine 3.5 H Glucose 409 H POC Glucose 397 H Lactic Acid Calcium 6.8 L Phosphorus Magnesium AST ALT Alkaline Phosphatase Total Creatine Kinase CK-MB (CK-2) CK-MB (CK-2) Rel Index Troponin T Total Protein Albumin Triglycerides Urine Blood Urine WBC (Auto) Urine Creatinine 04/18/22 04/18/22 04/18/22 19:13 20:58 21:22 WBC RBC Hgb Hct Plt Count Seg Neutrophils % Seg Neuts % (Manual) Lymphocytes % (Manual) Eosinophils % (Manual) Seg Neutrophils # Seg Neutrophils # Man Lymphocytes # (Manual) Eosinophils # (Manual) PT Activated Coag Time Heparin Anti-Xa Level ABG pH 7.502 H ABG pO2 144.5 H ABG HCO3 ABG O2 Saturation ABG Base Excess ABG Hemoglobin 12.5 L Oxyhemoglobin Sodium Potassium Chloride Carbon Dioxide BUN Creatinine Glucose POC Glucose 321 H 307 H Lactic Acid Calcium Phosphorus Magnesium AST ALT Alkaline Phosphatase Total Creatine Kinase CK-MB (CK-2) CK-MB (CK-2) Rel Index Troponin T Total Protein Albumin Triglycerides Urine Blood Urine WBC (Auto) Urine Creatinine 04/18/22 04/18/22 04/18/22 21:30 21:30 Unknown WBC RBC Hgb Hct Plt Count Seg Neutrophils % Seg Neuts % (Manual) 81.0 H Lymphocytes % (Manual) 12.0 L Eosinophils % (Manual) Seg Neutrophils # 9.8 H Seg Neutrophils # Man 8.7 H Lymphocytes # (Manual) Eosinophils # (Manual) PT Activated Coag Time Heparin Anti-Xa Level ABG pH ABG pO2 ABG HCO3 ABG O2 Saturation ABG Base Excess ABG Hemoglobin Oxyhemoglobin Sodium Potassium Chloride 96.6 L Carbon Dioxide BUN 37 H Creatinine 3.6 H Glucose 312 H POC Glucose Lactic Acid 5.50 H* Calcium 7.3 L Phosphorus Magnesium AST ALT Alkaline Phosphatase Total Creatine Kinase CK-MB (CK-2) CK-MB (CK-2) Rel Index Troponin T Total Protein Albumin Triglycerides Urine Blood Urine WBC (Auto) Urine Creatinine 04/18/22 04/18/22 04/19/22 Unknown Unknown 00:35 WBC RBC Hgb Hct Plt Count Seg Neutrophils % Seg Neuts % (Manual) Lymphocytes % (Manual) Eosinophils % (Manual) Seg Neutrophils # Seg Neutrophils # Man Lymphocytes # (Manual) Eosinophils # (Manual) PT 15.6 H Activated Coag Time Heparin Anti-Xa Level ABG pH ABG pO2 ABG HCO3 ABG O2 Saturation ABG Base Excess ABG Hemoglobin Oxyhemoglobin Sodium Potassium Chloride Carbon Dioxide 18 L BUN 26 H Creatinine 2.5 H D Glucose 330 H POC Glucose Lactic Acid Calcium 7.9 L Phosphorus Magnesium AST 463 H ALT 249 H Alkaline Phosphatase Total Creatine Kinase CK-MB (CK-2) CK-MB (CK-2) Rel Index Troponin T 2.670 H* D Total Protein Albumin 3.3 L Triglycerides Urine Blood Urine WBC (Auto) Urine Creatinine 04/19/22 04/19/22 04/19/22 00:39 02:08 02:08 WBC RBC Hgb Hct Plt Count Seg Neutrophils % Seg Neuts % (Manual) Lymphocytes % (Manual) Eosinophils % (Manual) Seg Neutrophils # Seg Neutrophils # Man Lymphocytes # (Manual) Eosinophils # (Manual) PT Activated Coag Time Heparin Anti-Xa Level ABG pH ABG pO2 ABG HCO3 ABG O2 Saturation ABG Base Excess ABG Hemoglobin Oxyhemoglobin Sodium Potassium Chloride Carbon Dioxide BUN Creatinine Glucose POC Glucose 263 H Lactic Acid Calcium Phosphorus Magnesium AST ALT Alkaline Phosphatase Total Creatine Kinase CK-MB (CK-2) CK-MB (CK-2) Rel Index Troponin T Total Protein Albumin Triglycerides Urine Blood Large A Urine WBC (Auto) 88.0 H Urine Creatinine 90.9 H 04/19/22 04/19/22 04/19/22 02:08 03:45 03:45 WBC 14.2 H RBC Hgb Hct Plt Count Seg Neutrophils % Seg Neuts % (Manual) Lymphocytes % (Manual) Eosinophils % (Manual) Seg Neutrophils # Seg Neutrophils # Man Lymphocytes # (Manual) Eosinophils # (Manual) PT Activated Coag Time Heparin Anti-Xa Level 0.18 L ABG pH ABG pO2 ABG HCO3 ABG O2 Saturation ABG Base Excess ABG Hemoglobin Oxyhemoglobin Sodium Potassium Chloride 94.2 L Carbon Dioxide BUN 39 H Creatinine 3.8 H Glucose 243 H POC Glucose Lactic Acid Calcium 7.1 L Phosphorus Magnesium 1.50 L AST 380 H ALT 289 H Alkaline Phosphatase Total Creatine Kinase CK-MB (CK-2) CK-MB (CK-2) Rel Index Troponin T Total Protein 5.4 L Albumin 2.5 L Triglycerides Urine Blood Urine WBC (Auto) Urine Creatinine 04/19/22 04/19/22 04/19/22 03:45 06:01 07:11 WBC RBC Hgb Hct Plt Count Seg Neutrophils % Seg Neuts % (Manual) Lymphocytes % (Manual) Eosinophils % (Manual) Seg Neutrophils # Seg Neutrophils # Man Lymphocytes # (Manual) Eosinophils # (Manual) PT Activated Coag Time Heparin Anti-Xa Level ABG pH ABG pO2 ABG HCO3 ABG O2 Saturation ABG Base Excess ABG Hemoglobin Oxyhemoglobin Sodium Potassium Chloride Carbon Dioxide BUN Creatinine Glucose POC Glucose 165 H Lactic Acid 4.00 H* Calcium Phosphorus Magnesium AST ALT Alkaline Phosphatase Total Creatine Kinase 3270 H CK-MB (CK-2) 28.5 H CK-MB (CK-2) Rel Index Troponin T 2.980 H* Total Protein Albumin Triglycerides Urine Blood Urine WBC (Auto) Urine Creatinine 04/19/22 04/19/22 04/19/22 07:50 08:50 12:49 WBC RBC Hgb Hct Plt Count Seg Neutrophils % Seg Neuts % (Manual) Lymphocytes % (Manual) Eosinophils % (Manual) Seg Neutrophils # Seg Neutrophils # Man Lymphocytes # (Manual) Eosinophils # (Manual) PT Activated Coag Time Heparin Anti-Xa Level ABG pH 7.471 H ABG pO2 58.9 L ABG HCO3 27.1 H ABG O2 Saturation 91.7 L ABG Base Excess 3.4 H ABG Hemoglobin 12.2 L Oxyhemoglobin 90.0 L Sodium Potassium Chloride Carbon Dioxide BUN Creatinine Glucose POC Glucose 331 H Lactic Acid 3.40 H* Calcium Phosphorus Magnesium AST ALT Alkaline Phosphatase Total Creatine Kinase CK-MB (CK-2) CK-MB (CK-2) Rel Index Troponin T Total Protein Albumin Triglycerides Urine Blood Urine WBC (Auto) Urine Creatinine 04/19/22 04/19/22 04/19/22 16:15 19:25 21:17 WBC RBC Hgb Hct Plt Count Seg Neutrophils % Seg Neuts % (Manual) Lymphocytes % (Manual) Eosinophils % (Manual) Seg Neutrophils # Seg Neutrophils # Man Lymphocytes # (Manual) Eosinophils # (Manual) PT Activated Coag Time Heparin Anti-Xa Level ABG pH ABG pO2 ABG HCO3 ABG O2 Saturation ABG Base Excess ABG Hemoglobin Oxyhemoglobin Sodium Potassium Chloride Carbon Dioxide BUN Creatinine Glucose POC Glucose 304 H 251 H Lactic Acid 4.00 H* Calcium Phosphorus Magnesium AST ALT Alkaline Phosphatase Total Creatine Kinase CK-MB (CK-2) CK-MB (CK-2) Rel Index Troponin T Total Protein Albumin Triglycerides Urine Blood Urine WBC (Auto) Urine Creatinine 04/19/22 04/20/22 04/20/22 23:00 04:12 04:12 WBC 12.2 H RBC Hgb 11.6 L Hct 35.3 L Plt Count Seg Neutrophils % Seg Neuts % (Manual) Lymphocytes % (Manual) Eosinophils % (Manual) Seg Neutrophils # Seg Neutrophils # Man Lymphocytes # (Manual) Eosinophils # (Manual) PT Activated Coag Time Heparin Anti-Xa Level 0.15 L ABG pH ABG pO2 ABG HCO3 ABG O2 Saturation ABG Base Excess ABG Hemoglobin Oxyhemoglobin Sodium Potassium Chloride Carbon Dioxide BUN Creatinine Glucose POC Glucose 236 H Lactic Acid Calcium Phosphorus Magnesium AST ALT Alkaline Phosphatase Total Creatine Kinase CK-MB (CK-2) CK-MB (CK-2) Rel Index Troponin T Total Protein Albumin Triglycerides Urine Blood Urine WBC (Auto) Urine Creatinine 04/20/22 04/20/22 04/20/22 04:12 04:12 09:10 WBC RBC Hgb Hct Plt Count Seg Neutrophils % Seg Neuts % (Manual) Lymphocytes % (Manual) Eosinophils % (Manual) Seg Neutrophils # Seg Neutrophils # Man Lymphocytes # (Manual) Eosinophils # (Manual) PT Activated Coag Time Heparin Anti-Xa Level ABG pH ABG pO2 ABG HCO3 ABG O2 Saturation ABG Base Excess ABG Hemoglobin Oxyhemoglobin Sodium 133 L Potassium 3.5 L Chloride 91.9 L Carbon Dioxide BUN 44 H Creatinine 4.6 H Glucose 263 H POC Glucose Lactic Acid 2.80 H* Calcium 7.2 L Phosphorus Magnesium AST 553 H ALT 471 H Alkaline Phosphatase Total Creatine Kinase 3019 H CK-MB (CK-2) CK-MB (CK-2) Rel Index Troponin T Total Protein 5.7 L Albumin 2.4 L Triglycerides 254 H Urine Blood Urine WBC (Auto) Urine Creatinine 04/20/22 04/20/22 04/20/22 09:31 11:18 18:08 WBC RBC Hgb Hct Plt Count Seg Neutrophils % Seg Neuts % (Manual) Lymphocytes % (Manual) Eosinophils % (Manual) Seg Neutrophils # Seg Neutrophils # Man Lymphocytes # (Manual) Eosinophils # (Manual) PT Activated Coag Time Heparin Anti-Xa Level ABG pH 7.512 H ABG pO2 ABG HCO3 26.2 H ABG O2 Saturation ABG Base Excess 3.2 H ABG Hemoglobin 9.0 L Oxyhemoglobin Sodium Potassium Chloride Carbon Dioxide BUN Creatinine Glucose POC Glucose 285 H 293 H Lactic Acid Calcium Phosphorus Magnesium AST ALT Alkaline Phosphatase Total Creatine Kinase CK-MB (CK-2) CK-MB (CK-2) Rel Index Troponin T Total Protein Albumin Triglycerides Urine Blood Urine WBC (Auto) Urine Creatinine 04/20/22 04/21/22 04/21/22 21:40 00:10 04:00 WBC RBC Hgb Hct Plt Count Seg Neutrophils % Seg Neuts % (Manual) Lymphocytes % (Manual) Eosinophils % (Manual) Seg Neutrophils # Seg Neutrophils # Man Lymphocytes # (Manual) Eosinophils # (Manual) PT Activated Coag Time Heparin Anti-Xa Level 0.16 L ABG pH ABG pO2 59.4 L ABG HCO3 29.7 H ABG O2 Saturation 90.1 L ABG Base Excess 3.1 H ABG Hemoglobin 11.6 L Oxyhemoglobin 88.2 L Sodium Potassium Chloride Carbon Dioxide BUN Creatinine Glucose POC Glucose 290 H Lactic Acid Calcium Phosphorus Magnesium AST ALT Alkaline Phosphatase Total Creatine Kinase CK-MB (CK-2) CK-MB (CK-2) Rel Index Troponin T Total Protein Albumin Triglycerides Urine Blood Urine WBC (Auto) Urine Creatinine 04/21/22 04/21/22 04/21/22 04:30 04:30 05:57 WBC 17.9 H RBC Hgb 11.7 L Hct 35.1 L Plt Count Seg Neutrophils % Seg Neuts % (Manual) Lymphocytes % (Manual) Eosinophils % (Manual) Seg Neutrophils # Seg Neutrophils # Man Lymphocytes # (Manual) Eosinophils # (Manual) PT Activated Coag Time Heparin Anti-Xa Level ABG pH ABG pO2 ABG HCO3 ABG O2 Saturation ABG Base Excess ABG Hemoglobin Oxyhemoglobin Sodium Potassium Chloride 95.7 L Carbon Dioxide BUN 45 H Creatinine 4.2 H Glucose 309 H POC Glucose 265 H Lactic Acid Calcium 7.4 L Phosphorus 5.60 H D Magnesium 2.50 H AST 217 H ALT 376 H Alkaline Phosphatase Total Creatine Kinase CK-MB (CK-2) CK-MB (CK-2) Rel Index Troponin T Total Protein Albumin 2.8 L Triglycerides Urine Blood Urine WBC (Auto) Urine Creatinine 04/21/22 04/21/22 04/21/22 12:14 13:45 18:10 WBC RBC Hgb Hct Plt Count Seg Neutrophils % Seg Neuts % (Manual) Lymphocytes % (Manual) Eosinophils % (Manual) Seg Neutrophils # Seg Neutrophils # Man Lymphocytes # (Manual) Eosinophils # (Manual) PT Activated Coag Time 179 H Heparin Anti-Xa Level ABG pH ABG pO2 ABG HCO3 ABG O2 Saturation ABG Base Excess ABG Hemoglobin Oxyhemoglobin Sodium Potassium Chloride Carbon Dioxide BUN Creatinine Glucose POC Glucose 248 H 240 H Lactic Acid Calcium Phosphorus Magnesium AST ALT Alkaline Phosphatase Total Creatine Kinase CK-MB (CK-2) CK-MB (CK-2) Rel Index Troponin T Total Protein Albumin Triglycerides Urine Blood Urine WBC (Auto) Urine Creatinine 04/22/22 04/22/22 04/22/22 00:09 04:00 04:33 WBC 12.4 H RBC 3.34 L Hgb 9.8 L Hct 29.7 L Plt Count 138 L Seg Neutrophils % Seg Neuts % (Manual) Lymphocytes % (Manual) Eosinophils % (Manual) Seg Neutrophils # Seg Neutrophils # Man Lymphocytes # (Manual) Eosinophils # (Manual) PT Activated Coag Time Heparin Anti-Xa Level ABG pH ABG pO2 ABG HCO3 ABG O2 Saturation ABG Base Excess ABG Hemoglobin Oxyhemoglobin Sodium Potassium Chloride Carbon Dioxide BUN 40 H Creatinine 2.9 H Glucose 269 H POC Glucose 248 H Lactic Acid Calcium 7.3 L Phosphorus Magnesium AST ALT Alkaline Phosphatase Total Creatine Kinase 973 H CK-MB (CK-2) CK-MB (CK-2) Rel Index Troponin T Total Protein Albumin Triglycerides Urine Blood Urine WBC (Auto) Urine Creatinine 04/22/22 04/22/22 04/22/22 10:13 11:51 18:02 WBC RBC Hgb Hct Plt Count Seg Neutrophils % Seg Neuts % (Manual) Lymphocytes % (Manual) Eosinophils % (Manual) Seg Neutrophils # Seg Neutrophils # Man Lymphocytes # (Manual) Eosinophils # (Manual) PT Activated Coag Time Heparin Anti-Xa Level ABG pH ABG pO2 56.1 L ABG HCO3 28.4 H ABG O2 Saturation 89.3 L ABG Base Excess ABG Hemoglobin 9.8 L Oxyhemoglobin 87.7 L Sodium Potassium Chloride Carbon Dioxide BUN Creatinine Glucose POC Glucose 302 H 266 H Lactic Acid Calcium Phosphorus Magnesium AST ALT Alkaline Phosphatase Total Creatine Kinase CK-MB (CK-2) CK-MB (CK-2) Rel Index Troponin T Total Protein Albumin Triglycerides Urine Blood Urine WBC (Auto) Urine Creatinine 04/22/22 04/22/22 04/23/22 21:18 23:30 04:19 WBC RBC 3.34 L Hgb 9.9 L Hct 29.9 L Plt Count Seg Neutrophils % Seg Neuts % (Manual) 74.0 H Lymphocytes % (Manual) 10.0 L Eosinophils % (Manual) 7.0 H Seg Neutrophils # Seg Neutrophils # Man 8.0 H Lymphocytes # (Manual) 1.1 L Eosinophils # (Manual) 0.8 H PT Activated Coag Time Heparin Anti-Xa Level ABG pH ABG pO2 ABG HCO3 ABG O2 Saturation ABG Base Excess ABG Hemoglobin Oxyhemoglobin Sodium Potassium Chloride Carbon Dioxide BUN Creatinine Glucose POC Glucose 299 H 299 H Lactic Acid Calcium Phosphorus Magnesium AST ALT Alkaline Phosphatase Total Creatine Kinase CK-MB (CK-2) CK-MB (CK-2) Rel Index Troponin T Total Protein Albumin Triglycerides Urine Blood Urine WBC (Auto) Urine Creatinine 04/23/22 04/23/22 04:19 05:24 WBC RBC Hgb Hct Plt Count Seg Neutrophils % Seg Neuts % (Manual) Lymphocytes % (Manual) Eosinophils % (Manual) Seg Neutrophils # Seg Neutrophils # Man Lymphocytes # (Manual) Eosinophils # (Manual) PT Activated Coag Time Heparin Anti-Xa Level ABG pH ABG pO2 ABG HCO3 ABG O2 Saturation ABG Base Excess ABG Hemoglobin Oxyhemoglobin Sodium Potassium 3.5 L Chloride Carbon Dioxide BUN 30 H Creatinine 2.3 H Glucose 289 H POC Glucose 271 H Lactic Acid Calcium 7.8 L Phosphorus Magnesium AST 46 H ALT 158 H Alkaline Phosphatase 138 H Total Creatine Kinase CK-MB (CK-2) CK-MB (CK-2) Rel Index Troponin T Total Protein 6.2 L Albumin 2.6 L Triglycerides 230 H Urine Blood Urine WBC (Auto) Urine Creatinine Allied health notes reviewed: nursing
[2022-04-23] MEDS: QUEtiapine 100 MG TAB FEEDTUBE SCH ×2 (09:15→21:17)
[2022-04-23] MEDS: SENNOSIDES/DOCUSATE SODIUM 8.6/50 MG TAB FEEDTUBE SCH ×2 (09:15→21:17)
[2022-04-23] MEDS: HEPARIN 5,000 UNIT/1 ML VIAL SUB-Q SCH ×2 (09:15→21:15)
[2022-04-23] MEDS: ASPIRIN 81 MG TAB CHEW FEEDTUBE SCH (09:15)
[2022-04-23] MEDS: AMIODARONE 200 MG TAB PO SCH ×2 (09:35→21:17)
[2022-04-23] MEDS: FAMOTIDINE 20 MG TAB FEEDTUBE SCH (09:35)
--- NOTE | 2022-04-23 10:38 | Ultrasound Report ---
Ultrasound chest HISTORY: Bilateral pleural effusions TECHNIQUE: Transabdominal images. COMPARISON: None. FINDINGS: Targeted ultrasound was performed on both sides of the chest to evaluate for pleural effusi ons. No pleural effusion is detected. IMPRESSION: No pleural effusions are detected on ultrasound. Signer Name: Robin Agarwal Jr, MD Signed: 04/23/2022 10:33 AM Workstation Name: [id number]
--- NOTE | 2022-04-23 10:50 | Progress Note ---
Assessment and Plan It will be recalled that he presented to [facility] emergency clinic with chest pain, and during his evaluation there, suffered an acute cardiopulmonary arrest prompting his transfer to the emergency room at [facility]. Ventricular fibrillation was reported, although no strips available for review. EKG on presentation here was a rapid atrial fibrillation with some nonspecific ST segment changes which have since resolved. Echocardiogram showed a four-chamber dilated cardiomyopathy with left ventricular ejection fraction 15 to 20%. The chronicity of the cardiomyopathy is uncertain, the patient's does not report any recent cardiac evaluation, with only a history of atrial fibrillation requiring cardioversion some 15 years ago. Cardiac catheterization performed this admission showed no significant obstructive coronary lesions, consistent with nonischemic cardiomyopathy. Post cardiac catheterization, and IV hydration, his creatinine has reduced from 4.6- 2.9. The patient however still vent dependent, with high oxygen rate requirements. Chest x-ray today shows a mostly right lung opacity, the ICU team is treating him for possible aspiration. We will continue oral amiodarone, indicated for rate control as we have very limited option for rate control strategy. He will need long-term oral anticoagulation for atrial fibrillation will initiate it when clinically stable. Eventually, he would need a device during this hospitalization for secondary prevention of sudden cardiac before discharge as he had cardiac arrest and low ejection fraction. If the patient has active infection and cannot get a device he will at least need a LifeVest we will introduce afterload agents and beta-blockers for LV systolic dysfunction once he is off pressors/inotropic agents and clinically stable. - Patient Problems (1) Atrial fibrillation with RVR Current Visit: Yes Status: Acute (2) Cardiac arrest Current Visit: Yes Status: Acute (3) Cardiogenic shock Current Visit: Yes Status: Acute Subjective Date of service: 04/23/22 Principal diagnosis: AHRF; AMS; Pneumonia; Shock; DM II; Severe Metabolic Acidosis Interval history: Patient is still sedated and intubated. Patient is off vasopressin currently on dobutamine. He is tolerating it well with rates controlled and improved blood pressure overnight. His creatinine is improving. Objective Vital Signs Temp Pulse Pulse Pulse Pulse Pulse Pulse 04/23/22 10:01 91 H 04/23/22 09:19 100 H 04/23/22 09:00 95 H 04/23/22 08:55 100 H 04/23/22 08:00 92 H 04/23/22 07:30 99.7 F H 100 H 96 H 100 H 96 H 100 H 04/23/22 07:00 100 H 04/23/22 06:00 93 H 04/23/22 05:00 102 H 04/23/22 04:00 100.4 F H 106 H 102 H 04/23/22 03:00 114 H 04/23/22 02:01 109 H 04/23/22 01:00 100 H 04/23/22 00:00 104 H 104 H 04/22/22 23:57 103 H 04/22/22 23:51 101.0 F H 04/22/22 23:39 107 H 04/22/22 23:00 105 H 04/22/22 22:00 108 H 04/22/22 21:00 99 H 04/22/22 20:00 100.3 F H 102 H 102 H 04/22/22 19:38 135 H 04/22/22 19:08 101 H 04/22/22 19:00 100.3 F H 101 H 04/22/22 18:00 100 H 04/22/22 17:00 110 H 04/22/22 16:33 120 H 04/22/22 16:00 99.7 F H 101 H 96 H 04/22/22 15:00 87 04/22/22 14:00 92 H 04/22/22 13:00 76 04/22/22 12:40 77 04/22/22 12:00 98.9 F 79 96 H 04/22/22 11:01 89 Resp BP Pulse Ox 04/23/22 10:01 20 124/69 95 04/23/22 09:19 178/83 04/23/22 09:00 18 141/74 98 04/23/22 08:55 178/83 93 04/23/22 08:00 16 135/68 95 04/23/22 07:30 17 135/66 94 04/23/22 07:00 17 135/66 94 04/23/22 06:00 18 135/71 94 04/23/22 05:00 18 128/69 95 04/23/22 04:00 20 129/71 93 04/23/22 03:00 18 132/71 94 04/23/22 02:01 21 140/77 97 04/23/22 01:00 19 127/74 95 04/23/22 00:00 17 135/74 97 04/22/22 23:57 129/74 99 04/22/22 23:51 04/22/22 23:39 20 138/69 99 04/22/22 23:00 17 129/74 97 04/22/22 22:00 18 138/69 96 04/22/22 21:00 17 134/76 96 04/22/22 20:00 19 127/72 99 04/22/22 19:38 192/87 98 04/22/22 19:08 04/22/22 19:00 20 127/72 93 04/22/22 18:00 12 134/66 95 04/22/22 17:00 19 139/73 93 04/22/22 16:33 167/74 91 04/22/22 16:00 18 128/70 93 04/22/22 15:00 19 131/68 94 04/22/22 14:00 16 118/70 93 04/22/22 13:00 17 115/68 91 04/22/22 12:40 120/73 96 04/22/22 12:00 16 124/70 95 04/22/22 11:01 17 154/77 89 - Physical Examination General: Other (Patient is intubated, sedated, on the vent) HEENT: Positive: Other (Pupils fixed) Neck: Positive: neck supple Cardiac: Positive: irregularly irregular, S1/S2. Negative: Audible Murmur Lungs: Positive: clear to auscultation (Anterior) Neuro: Positive: Other (Intubated, sedated on the vent, unable to assess) Abdomen: Positive: Soft Skin: Positive: Clear, Other (Blisters on the right hand) Extremities: Absent: edema - Labs and Meds Cardiac Enzymes 04/23/22 Range/Units 04:19 AST 46 H (5-40) units/L Lipids 04/23/22 Range/Units 04:19 Triglycerides 230 H (2-149) mg/dL CBC 04/23/22 Range/Units 04:19 WBC 10.8 (4.5-11.0) K/mm3 RBC 3.34 L (3.65-5.03) M/mm3 Hgb 9.9 L (11.8-15.2) gm/dl Hct 29.9 L (35.5-45.6) % Plt Count 162 (140-440) K/mm3 Comprehensive Metabolic Panel 04/23/22 Range/Units 04:19 Sodium 143 (137-145) mmol/L Potassium 3.5 L (3.6-5.0) mmol/L Chloride 103.4 (98-107) mmol/L Carbon Dioxide 30 (22-30) mmol/L BUN 30 H (9-20) mg/dL Creatinine 2.3 H (0.8-1.3) mg/dL Glucose 289 H (75-100) mg/dL Calcium 7.8 L (8.4-10.2) mg/dL AST 46 H (5-40) units/L ALT 158 H (7-56) units/L Alkaline Phosphatase 138 H (35-129) units/L Total Protein 6.2 L (6.3-8.2) g/dL Albumin 2.6 L (3.9-5) g/dL - Allied health notes Allied health notes reviewed: nursing
--- NOTE | 2022-04-23 11:08 | Progress Note ---
<MOHIT MARTE - Last Filed: 04/23/22 14:21> Assessment and Plan Assessment and plan: This is a 62 year old male with OHS, HTN, DM, metabolic syndrome, s/p vfib cardiac arrest, Septic shock, aspiration pneumonia, transaminitis, VINCENT with acute metabolic encephalopathy Neuro: Acute metabolic encephalopathy, facial contusions s/p fall -CT head showed no focal intra-axial mass, hemorrhage, hydrocephalus or acute or large territorial infarct -Sedated with propofol and fentanyl -wean propofol as tolerated -RASS goal 0 to -1 -Seroquel started -EKG to monitor qTc -Reorientation as needed -Maintain sleep-wake cycle -Neurology consulted, appreciate recommendations -As needed analgesia Cardiac: A. fib RVR , s/p V. fib cardiac arrest, ? cardiogenic shock, h/o atrial fibrillation s/p cardioversion, HTN -Cardiology consulted, appreciate recommendations -S/p V. fib cardiac arrest -S/p dopamine drip and dobutamine drip which resolved tachycardia -Amio gtt changed to PO -s/p IV heparin -Blood pressure monitoring per protocol -s/p Vasopressor support with levophed, epinephrine, vasopressin -Dobutamine gtt -Echocardiogram shows EF of 15 to 20% -Left heart cath showed severe nonischemic cardiomyopathy with patent coronary arteries, which per cardiology presumably resulted in a primary cardiac arrest. -Per cardio: When blood pressure tolerates, he will need optimal medical therapy for afterload, beta-blockers, and long-term oral anticoagulation. Eventually from a cardiac standpoint, will need predischarge device therapy for secondary prevention of SCD, once he is off the vent and clinical status is optimized. Respiratory: Acute hypoxic respiratory failure, h/o OHS -CCM consulted, appreciate recommendations -Intubated on 04/17 with -A.m. vent settings: AC tidal volume 500, rate 16, PEEP 8, FiO2 45% -See RT notes for titration -Retintubated this afternoon -Chest US shows no pleural effusion -A.m. ABG and CXR noted -VAP bundle -SPO2 monitoring GI: Transaminitis (resolving), moderate protein calorie malnutrition -24 hours + 338 mL -PPI -NTR consulted for tube feedings -BR: Senokot -Trend LFTs : Acute kidney injury likely secondary to vasomotor nephropathy (improving) -Nephrology consulted, appreciate recommendations -Monitor intake and output -Renally dose medications -Avoid nephrotoxic medications -s/p bicarb gtt and MIVF -Renal ultrasound shows distended gallbladder, no cholecystic fluid -Trend BMP ID: Aspiration pneumonia, Sepsis, lactic acidosis -CTA chest shows extensive bilateral airspace disease present dependent portions and greater in the upper lobes, given distribution could be related to aspiration -Admitted with hypotension, lactic acidosis, acute kidney injury -Antibiotic therapy with Levaquin -f/u blood culture -Monitor WBC and temperature curve Endo: h/o DM -Avoid hypoglycemia -SSI -Accu-Cheks q. 6 -Long-acting insulin, titrate as needed Heme: Leukocytosis, elevated D-dimer -CTA chest shows no pulmonary embolism -Trend CBC -Transfuse for hemoglobin less than 7 -Bilateral Doppler ultrasound showed no DVT -SCDs to BLE while in bed The high probability of a clinically significant, sudden or life threatening deterioration of the [multiple] system(s) required my full and direct attention, intervention and personal management. The aggregate critical care time was [60] minutes. This time is in addition to time spent performing reported procedures but includes the following: [x] Data Review and interpretation [x] Patient assessment and monitoring of vital signs [x] Documentation [x] Medication orders and management Disposition Plan: icu Total Time Spent with Patient (Minutes): 60 History Interval history: This is is a 62-year-old male with OHS, HTN, DM, metabolic syndrome presents the emergency department on 04/17 via EMS s/p cardiac arrest. As per family patient presented to [place] outpatient clinic for evaluation for chest pain and subsequently went to the restroom where he was found unresponsive and EMS arrived and noted the patient had a V. fib arrest and ACLS was initiated and patient was transported to [facility] for further evaluation. Patient was noted to have aspirated into the oropharynx with suspected aspiration pneumonia complicated by acute hypoxic respiratory failure, septic shock and cardiac arrest. Patient was initiated on the sepsis protocol, IV vasopressor support and admitted to the ICU with consults to [facility], nephrology and cardiology. Hospital Course to Date: 04/18: Severely acidotic this am, now on bcarb gtt. On high dose pressors- Levophed and Vaso. Afib in control rate on the monitor, on Amiodarone and heparin gtt per protocol. Cardiology is following. Patient remains afebrile and leukocytosis improved this am. Now with worsen renal function and low UOP. Patient's EF is 25 to 30%, Dobutamine gtt initiated. Continue current IV abx, continue to trend troponin and lactic acid. Nephrology also consulted for further recs. BLE swelling noted, BLE doppler ordered to r/o DVT. 04/19: Agitation with low SPO2 overnight, sedation increased. This am ABG with worsen hypoxia on 40% Fio2, SPO2 at 90% this am. Fio2 increased to 50%, SPO2 improved above 92%. Remains on multiple pressors and bcarb gtt. Now on dopamine gtt, in Afib with RVR on the monitor. Still on Amiodarone and heparin gtts. Echo noted, EF 15 to 20%. Cardiology is following. With worsen renal function, however making urine this am. No indication for [employer] at this per Nephro. Will continue to monitor. Monitor and replace electrolytes as needed 04/20: Nephrology spoke to at bedside re HD, cardiology will proceed with LHC if patient is to recieve HD post procedure, vent changes per [facility], Sedated with fentanyl and propofol with heparin and amio gtt infusing. 04/21: LHC today. Nephrology will continue IVF and if renal function worsens then will proceed HD with consent from family. Patient became hypoxic with FiO2 at 40% yesterday evening and is currently at 65%. 04/22: Patient was started on vasopressin IV fluids yesterday and his creatinine decreased from 4.2 to 2.9. Patient severely agitated while on propofol and fe ntanyl. Started low-dose Seroquel and started to wean propofol as tolerated. Patient does follow commands today. Increase in lantus. IV fluids decreased, started on dobutamine per [facility] and wean vasopressin for target MAP of 65-70 and SBP greater than 110 04/23: This morning patient being extremely hypertensive with SBP into 200s and given metoprolol. Rn asked to wean propofol as tolerated. Dobutamine decreased to 2.5. Cr improved. US chest completed and showed no pleural effusions. This afternoon alerted by RN that RT believes pt bite through his tube and anesthesia was called to bedside for tube exchange. Decision was made to extubate and reintubate the patient. CXR ordered. Hospitalist Physical - Constitutional Vitals: Temp Pulse Resp BP Pulse Ox 99.7 F H 91 H 20 124/69 95 08/11/22 07:30 04/23/22 10:01 04/23/22 10:01 04/23/22 10:01 04/23/22 10:01 General appearance: Present: no acute distress, other (Intubated and Sedated) - EENT Eyes: Present: PERRL, EOM intact ENT: hearing decreased - Neck Neck: Present: normal ROM - Respiratory Respiratory effort: normal Respiratory: bilateral: diminished - Cardiovascular Rhythm: irregularly irregular Heart Sounds: Present: S1 & S2. Absent: systolic murmur, diastolic murmur - Extremities Extremities: no ischemia, pulses intact, pulses symmetrical, normal temperature, normal color Extremity abnormal: edema Peripheral Pulses: within normal limits - Abdominal General gastrointestinal: soft, non-tender, non-distended, normal bowel sounds - Integumentary Integumentary: Present: warm, dry - Psychiatric Psychiatric: cooperative - Neurologic Neurologic: other (intact cough/gag, PERRL) - Allied Health Allied health notes reviewed: nursing, RT, social work HEART Score - HEART Score Troponin: Troponin T 2.980 ng/mL (0.00-0.029) H* 04/19/22 07:11 Results - Labs CBC & Chem 7: 04/23/22 04:19 04/23/22 04:19 Labs: Laboratory Last Values WBC 10.8 K/mm3 (4.5-11.0) 04/23/22 04:19 RBC 3.34 M/mm3 (3.65-5.03) L 04/23/22 04:19 Hgb 9.9 gm/dl (11.8-15.2) L 04/23/22 04:19 Hct 29.9 % (35.5-45.6) L 04/23/22 04:19 MCV 90 fl (84-94) 04/23/22 04:19 MCH 30 pg (28-32) 04/23/22 04:19 MCHC 33 % (32-34) 04/23/22 04:19 RDW 14.6 % (13.2-15.2) 04/23/22 04:19 Plt Count 162 K/mm3 (140-440) 04/23/22 04:19 Lymph % (Auto) 23.0 % (13.4-35.0) 04/17/22 19:58 [place] % (Auto) 3.2 % (0.0-7.3) 04/18/22 Unknown Eos % (Auto) 0.1 % (0.0-4.3) 04/18/22 Unknown Baso % (Auto) 0.6 % (0.0-1.8) 04/17/22 19:58 Lymph # (Auto) 2.7 K/mm3 (1.2-5.4) 04/17/22 19:58 [place] # (Auto) 0.3 K/mm3 (0.0-0.8) 04/18/22 Unknown Eos # (Auto) 0.0 K/mm3 (0.0-0.4) 04/18/22 Unknown Baso # (Auto) 0.1 K/mm3 (0.0-0.1) 04/18/22 Unknown Add Manual Diff Complete 04/23/22 04:19 Total Counted 100 04/23/22 04:19 Seg Neutrophils % Brush Finisher 04/18/22 Unknown Seg Neuts % (Manual) 74.0 % (40.0-70.0) H 04/23/22 04:19 Band Neutrophils % 2.0 % 04/23/22 04:19 Lymphocytes % (Manual) 10.0 % (13.4-35.0) L 04/23/22 04:19 Reactive Lymphs % (Man) 0 % 04/23/22 04:19 Monocytes % (Manual) 7.0 % (0.0-7.3) 04/23/22 04:19 Eosinophils % (Manual) 7.0 % (0.0-4.3) H 04/23/22 04:19 Basophils % (Manual) 0 % (0.0-1.8) 04/23/22 04:19 Metamyelocytes % 0 % 04/23/22 04:19 Myelocytes % 0 % 04/23/22 04:19 Promyelocytes % 0 % 04/23/22 04:19 Blast Cells % 0 % 04/23/22 04:19 Nucleated RBC % Not Reportable 04/23/22 04:19 Seg Neutrophils # 9.8 K/mm3 (1.8-7.7) H 04/18/22 Unknown Seg Neutrophils # Man 8.0 K/mm3 (1.8-7.7) H 04/23/22 04:19 Band Neutrophils # 0.2 K/mm3 04/23/22 04:19 Lymphocytes # (Manual) 1.1 K/mm3 (1.2-5.4) L 04/23/22 04:19 Abs React Lymphs (Man) 0.0 K/mm3 04/23/22 04:19 Monocytes # (Manual) 0.8 K/mm3 (0.0-0.8) 04/23/22 04:19 Eosinophils # (Manual) 0.8 K/mm3 (0.0-0.4) H 04/23/22 04:19 Basophils # (Manual) 0.0 K/mm3 (0.0-0.1) 04/23/22 04:19 Metamyelocytes # 0.0 K/mm3 04/23/22 04:19 Myelocytes # 0.0 K/mm3 04/23/22 04:19 Promyelocytes # 0.0 K/mm3 04/23/22 04:19 Blast Cells # 0.0 K/mm3 04/23/22 04:19 WBC Morphology Not Reportable 04/23/22 04:19 Hypersegmented Neuts Not Reportable 04/23/22 04:19 Hyposegmented Neuts Not Reportable 04/23/22 04:19 Hypogranular Neuts Not Reportable 04/23/22 04:19 Smudge Cells Not Reportable 04/23/22 04:19 Toxic Granulation Not Reportable 04/23/22 04:19 Toxic Vacuolation Not Reportable 04/23/22 04:19 Dohle Bodies Not Reportable 04/23/22 04:19 Pelger-Huet Anomaly Not Reportable 04/23/22 04:19 Regla Rods Not Reportable 04/23/22 04:19 Platelet Estimate Consistent w auto 04/23/22 04:19 Clumped Platelets Not Reportable 04/23/22 04:19 Plt Clumps, EDTA Not Reportable 04/23/22 04:19 Large Platelets Not Reportable 04/23/22 04:19 Giant Platelets Not Reportable 04/23/22 04:19 Platelet Satelliting Not Reportable 04/23/22 04:19 Plt Morphology Comment Not Reportable 04/23/22 04:19 RBC Morphology Not Reportable 04/23/22 04:19 Dimorphic RBCs Not Reportable 04/23/22 04:19 Polychromasia Not Reportable 04/23/22 04:19 Hypochromasia Not Reportable 04/23/22 04:19 Poikilocytosis Not Reportable 04/23/22 04:19 Anisocytosis Not Reportable 04/23/22 04:19 Microcytosis Not Reportable 04/23/22 04:19 Macrocytosis Not Reportable 04/23/22 04:19 Spherocytes Not Reportable 04/23/22 04:19 Pappenheimer Bodies Not Reportable 04/23/22 04:19 Sickle Cells Not Reportable 04/23/22 04:19 Target Cells Not Reportable 04/23/22 04:19 Tear Drop Cells Not Reportable 04/23/22 04:19 Ovalocytes Not Reportable 04/23/22 04:19 Helmet Cells Not Reportable 04/23/22 04:19 [place] Bodies Not Reportable 04/23/22 04:19 [place] Rings Not Reportable 04/23/22 04:19 [place] Cells Not Reportable 04/23/22 04:19 Bite Cells Not Reportable 04/23/22 04:19 Crenated Cell Not Reportable 04/23/22 04:19 Elliptocytes Not Reportable 04/23/22 04:19 Acanthocytes (Spur) Not Reportable 04/23/22 04:19 Rouleaux Not Reportable 04/23/22 04:19 Hemoglobin C Crystals Not Reportable 04/23/22 04:19 Schistocytes Not Reportable 04/23/22 04:19 Malaria parasites Not Reportable 04/23/22 04:19 [place] Bodies Not Reportable 04/23/22 04:19 Hem Pathologist Commnt No 04/23/22 04:19 PT 15.6 Sec. (12.2-14.9) H 04/18/22 Unknown INR 1.08 (0.87-1.13) 04/18/22 Unknown APTT 28.6 Sec. (24.2-36.6) 04/18/22 Unknown Activated Coag Time 179 (74-137) H 04/21/22 12:14 Heparin Anti-Xa Level 0.16 U.I./ml (0.3-0.7) L 04/21/22 04:00 ABG pH 7.395 pH Units (7.350-7.450) 04/22/22 10:13 ABG pCO2 47.4 mm Hg 04/22/22 10:13 ABG pO2 56.1 mm Hg (80.0-90.0) L 04/22/22 10:13 ABG HCO3 28.4 mmol/L (20.0-26.0) H 04/22/22 10:13 ABG O2 Saturation 89.3 % (95.0-99.0) L 04/22/22 10:13 ABG O2 Content 12.1 (0.0-44) 04/22/22 10:13 ABG Base Excess 3.0 mmol/L (-2.0-3.0) 04/22/22 10:13 ABG Hemoglobin 9.8 gm/dl (14.0-18.0) L 04/22/22 10:13 ABG Carboxyhemoglobin 1.4 % (0.0-5.0) 04/22/22 10:13 ABG Methemoglobin 0.5 % (0.0-1.5) 04/22/22 10:13 Oxyhemoglobin 87.7 % (95.0-99.0) L 04/22/22 10:13 FiO2 60 % 04/22/22 10:13 Sodium 143 mmol/L (137-145) 04/23/22 04:19 Potassium 3.5 mmol/L (3.6-5.0) L 04/23/22 04:19 Chloride 103.4 mmol/L (98-107) 04/23/22 04:19 Carbon Dioxide 30 mmol/L (22-30) 04/23/22 04:19 Anion Gap 13 mmol/L 04/23/22 04:19 BUN 30 mg/dL (9-20) H 04/23/22 04:19 Creatinine 2.3 mg/dL (0.8-1.3) H 04/23/22 04:19 Estimated GFR 35 ml/min 04/23/22 04:19 BUN/Creatinine Ratio 13 % 04/23/22 04:19 Glucose 289 mg/dL (75-100) H 04/23/22 04:19 POC Glucose 271 mg/dL (70-105) H 04/23/22 05:24 Lactic Acid 1.90 mmol/L (0.7-2.0) 04/21/22 04:20 Calcium 7.8 mg/dL (8.4-10.2) L 04/23/22 04:19 Phosphorus 2.60 mg/dL (2.5-4.5) 04/23/22 04:19 Magnesium 2.20 mg/dL (1.7-2.3) 04/23/22 04:19 Total Bilirubin 0.60 mg/dL (0.1-1.2) 04/23/22 04:19 AST 46 units/L (5-40) H 04/23/22 04:19 ALT 158 units/L (7-56) H 04/23/22 04:19 Alkaline Phosphatase 138 units/L (35-129) H 04/23/22 04:19 Total Creatine Kinase 973 units/L (55-170) H 04/22/22 04:00 CK-MB (CK-2) 28.5 ng/mL (0.0-4.0) H 04/19/22 07:11 CK-MB (CK-2) Rel Index 0.8 (0-4) 04/19/22 07:11 Troponin T 2.980 ng/mL (0.00-0.029) H* 04/19/22 07:11 Total Protein 6.2 g/dL (6.3-8.2) L 04/23/22 04:19 Albumin 2.6 g/dL (3.9-5) L 04/23/22 04:19 Albumin/Globulin Ratio 0.7 % 04/23/22 04:19 Triglycerides 230 mg/dL (2-149) H 04/23/22 04:19 Cholesterol 106 mg/dL (50-199) 04/17/22 19:56 LDL Cholesterol Direct 57 mg/dL (50-130) 04/17/22 19:56 HDL Cholesterol 40 mg/dL (40-59) 04/17/22 19:56 Cholesterol/HDL Ratio 2.65 % 04/17/22 19:56 Procalcitonin 44.70 ng/mL (<0.15) 04/22/22 04:32 Urine Color Yellow (Yellow) 04/19/22 02:08 Urine Turbidity Slightly cloudy (Clear) 04/19/22 02:08 Urine pH 5.0 (5.0-7.0) 04/19/22 02:08 Ur Specific [place] 1.005 (1.003-1.030) 04/19/22 02:08 Urine Protein 30 mg/dl mg/dL (Negative) 04/19/22 02:08 Urine Glucose (UA) Negative mg/dL (Negative) 04/19/22 02:08 Urine Ketones Negative mg/dL (Negative) 04/19/22 02:08 Urine Blood Large (Negative) A 04/19/22 02:08 Urine Nitrite Negative (Negative) 04/19/22 02:08 Ur Reducing Substances Not Reportable 04/19/22 02:08 Urine Bilirubin Negative (Negative) 04/19/22 02:08 Urine Ictotest Not Reportable 04/19/22 02:08 Urine Urobilinogen 0.2 mg/dL (<2.0) 04/19/22 02:08 Ur Leukocyte Esterase Negative (Negative) 04/19/22 02:08 Urine WBC (Auto) 88.0 /HPF (0.0-6.0) H 04/19/22 02:08 Urine RBC (Auto) 60.0 /HPF (0.0-6.0) 04/19/22 02:08 Urine Bacteria (Auto) 2+ /HPF (Negative) 04/19/22 02:08 Urine WBC Clumps 3+ /HPF 04/19/22 02:08 RBC Casts 34 /LPF 04/19/22 02:08 Urine Mucus 1+ /HPF 04/19/22 02:08 Urine Yeast (Budding) 3+ /HPF 04/19/22 02:08 Urine Eosinophils None seen (None Seen) 04/19/22 02:08 Urine Creatinine 90.9 mg/dL (0.1-20.0) H 04/19/22 02:08 Urine Sodium 54 mmol/L 04/19/22 02:08 Blood Type A POSITIVE 04/21/22 04:37 Antibody Screen Negative 04/21/22 04:37 Microbiology: Microbiology 04/17/22 21:42 Peripheral/Venous Blood Culture - Final NO GROWTH AFTER 5 DAYS 04/17/22 21:42 Peripheral/Venous Blood Culture - Final NO GROWTH AFTER 5 DAYS 04/17/22 21:45 Tracheal Aspirate Sputum Culture - Final [place]/IV: Voiding Method Indwelling Catheter Active Medications - Current Medications Current Medications: Generic Name Dose Route Start Last Admin Trade Name Freq PRN Reason Stop Dose Admin Acetaminophen 650 mg 04/17/22 19:48 04/22/22 23:52 Acetaminophen 325 Mg Tab PO 650 mg Q6H PRN Administration Pain MILD(1-3)/Fever >100.5/CHE Albuterol 2.5 mg 04/17/22 19:48 Albuterol 2.5 Mg/3 Ml Nebu IH Q3HRT PRN Shortness Of Breath Amiodarone HCl 200 mg 04/21/22 13:00 04/23/22 09:35 Amiodarone 200 Mg Tab PO 200 mg BID FLACO Administration Aspirin 81 mg 04/20/22 12:00 04/23/22 09:15 Aspirin 81 Mg Tab Chew FEEDTUBE 81 mg QDAY FLACO Administration Atorvastatin Calcium 20 mg 04/20/22 22:00 04/22/22 21:14 Atorvastatin 20 Mg Tab FEEDTUBE 20 mg QHS FLACO Administration Dextrose 0 ml 04/17/22 23:46 Dextrose 50% In Water (25gm) 50 Ml Syringe IV Q30MIN PRN Hypoglycemia Protocol Famotidine 20 mg 04/20/22 10:00 04/23/22 09:35 Famotidine 20 Mg Tab FEEDTUBE 20 mg DAILY FLACO Administration Fentanyl 50 mcg 04/17/22 20:22 04/18/22 03:52 Fentanyl 100 Mcg/2 Ml Inj IV 50 mcg Q10MIN PRN Administration ANALGESIA Heparin Sodium (Porcine) 5,000 unit 04/21/22 22:00 04/23/22 09:15 Heparin 5,000 Unit/1 Ml Vial SUB-Q 5,000 unit Q12HR FLACO Administration Hydrophilic Ointment 1 applic 04/18/22 06:02 Lip Therapy Vaseline TP Q2HR PRN Dry Lips NORepinephrine/NS 8 MG-250 ML 8 mg in 250 mls @ 3.75 mls/hr 04/17/22 21:00 04/21/22 19:12 Norepinephrine/Ns 8 Mg-250 Ml (Double Conc) IV 0 mcg/min TITRATE FLACO 0 mls/hr Titration Protocol 2 MCG/MIN Fentanyl Citrate 2,000 mcg in 100 mls @ 5.443 mls/hr 04/17/22 21:00 04/23/22 09:19 Fentanyl Drip Premix IV 3 mcg/kg/hr TITR FLACO 16.329 mls/hr Administration Protocol 1 MCG/KG/HR Propofol 1,000 mg in 100 mls @ 3.456 mls/hr 04/18/22 07:00 04/23/22 09:45 Diprivan 10 Mg/Ml IV 15 mcg/kg/min TITR FLACO 10.368 mls/hr Titration Protocol 5 MCG/KG/MIN Phenylephrine HCl 100 mg/ 100 mls @ 3 mls/hr 04/18/22 07:30 Sodium Chloride IV TITR FLACO Protocol 50 MCG/MIN Levofloxacin/Dextrose 500 mg in 100 mls @ 100 mls/hr 04/20/22 22:00 04/22/22 21:13 Levaquin 500mg/100ml IV 04/25/22 21:59 100 mls/hr Q48H FLACO Administration Protocol Vasopressin 20 unit/ Sodium 101 mls @ 12.12 mls/hr 04/21/22 15:00 04/22/22 15:15 Chloride IV 0 units/min DIRECT FLACO 0 mls/hr Infusion 0.04 UNITS/MIN Dobutamine HCl 500 mg/ 250 mls @ 8.64 mls/hr 04/22/22 14:00 04/23/22 09:30 Dextrose IV 2.5 mcg/kg/min DIRECT FLACO 8.64 mls/hr Infusion 2.5 MCG/KG/MIN Insulin Glargine 40 units 04/23/22 22:00 Insulin Glargine 100 Units/Ml SUB-Q QHS [facility] Insulin Human Lispro 0 unit 04/18/22 00:00 04/23/22 05:29 Insulin Lispro 100 Unit/Ml SUB-Q 6 unit Q6HR [facility] Administration Protocol Insulin Human Lispro 5 unit 04/23/22 12:00 Insulin Lispro 100 Unit/Ml SUB-Q Q6HR [facility] Metoprolol Tartrate 2.5 mg 04/21/22 12:54 04/23/22 09:19 Metoprolol Tartrate 5 Mg/5 Ml Inj IV 2.5 mg Q6HR PRN Administration HR>130 Multi-Ingred Cream/Lotion/Oil/Oint 1 applic 04/18/22 06:02 Mineral Oil/Petrolatum, White Ophth Oint 3.5 Gm OU Q4HR PRN Dry Eye(s) Oxycodone/Acetaminophen 1 tab 04/22/22 11:05 Oxycodone /Acetaminophen 5-325mg Tab FEEDTUBE Q6H PRN Pain, Moderate (4-6) Quetiapine Fumarate 100 mg 04/22/22 22:00 04/23/22 09:15 Quetiapine 100 Mg Tab FEEDTUBE 100 mg BID FLACO Administration Senna/Docusate Sodium 1 tab 04/18/22 10:00 04/23/22 09:15 Sennosides/Docusate Sodium 8.6/50 Mg Tab FEEDTUBE 1 tab BID FLACO Administration Sodium Chloride 10 ml 04/17/22 22:00 04/23/22 09:36 Sodium Chloride 0.9% 10 Ml Flush Syringe IV 10 ml BID FLACO Administration Sodium Chloride 10 ml 04/17/22 19:48 Sodium Chloride 0.9% 10 Ml Flush Syringe IV PRN PRN LINE FLUSH Nutrition/Malnutrition Assess - Dietary Evaluation Nutrition/Malnutrition Findings: Nutrition Notes Start: 04/18/22 08:52 Freq: Status: Active Protocol: Document 04/22/22 10:36 ROMELIA (Rec: 04/22/22 10:49 ROMELIA [id number]) Nutrition Notes Initial or Follow up Brief Note Current Diagnosis Acute Kidney Injury,Diabetes, Sepsis,Hypertension, Respiratory Failure Other Pertinent Diagnosis s/p PEA w/ROSC, HFrEF, Pneumonia, Metabolic Acidosis, Cardiogenic Shock, .. Current Diet TF-Nepro w/CARBSTEADY @ 35 ml/ hr (from D 04/21). Height 5 ft 9 in Weight 115.2 kg [place] Body Weight (kg) 72.72 BMI 37.5 Weight change and time frame No body weight change reported in 4 days. Weight Status Obese Subjective/Other Information RD consult for TF tolerance/ continuation assessment. TF continues as prescribed, no further information available at the time. Pt continues on Mechanical Ventilation, O2 saturation @ 95%, according to Physical Assessment History notes. Percent of energy/protein needs met: Prescribed TF-Nepro w/ CARBSTEADY @ 35 ml/hr provides for energy/protein needs (1, 500 Kcal/68 g) during LOS, 77% Kcal; 90% AA. Including 365 Kcal from Propofol: 95% Kcal; 90% AA. #2 Nutrition Diagnosis Altered nutrition-related laboratory values Comments: Prescribed TF-Nepro w/ CARBSTEADY @ 35 ml/hr provides for energy/protein needs (1, 500 Kcal/68 g) during LOS, 77% Kcal; 90% AA. Including 365 Kcal from Propofol: 95% Kcal; 90% AA. Diagnosis Progress(for reassessment Resolved documentation) #1 Nutrition Diagnosis Inadequate oral intake Diagnosis Progress(for reassessment Continues documentation) Is patient on ventilator? Yes Is Patient Ambulatory and/or Out of Bed No REE-([place]-Daniele Briones-confined to bed) 2323.608 Kcal/Kg value to use for calculation 17 Approximate Energy Requirements Using 1958 kcal/Kg Calculation Used for Recommendations Kcal/kg Additional Notes Protein: 0.8-1.2 g/Kg AdjBW; 75-113 g/day. Fluids: 1 ml/Kcal, or as per MD. Nutrition Intervention Nutrition Support: Continue TF-Nepro w/CARBSTEADY @ 35 ml/hr. Flush: 220 ml water Q 4 hr, or as per MD. Kcal 1,500 Protein (gm) 68 Carbohydrates (gm) 134 Fat (gm) 80 Fluid (mL) 606 Fiber (gm) 11 % RDI: 77% Kcal; 90% AA. Goal #1 Provide at least 75% of energy /protein needs through Enteral Feeding during LOS. Follow-Up By: 04/29/22 Additional Comments Continue monitoring TF tolerance, ventilation status, vasopressors, and BM. <LISA TOWNSEND - Last Filed: 05/04/22 11:38> History Interval history: I saw and evaluated the patient. I agree with the findings and the plan of care as documented in the Nurse Practitioner's~note, with the following corrections and additions. Hospitalist Physical - Constitutional Vitals: Temp Pulse Resp BP Pulse Ox 98.7 F 58 L 31 H 144/80 98 05/04/22 07:13 05/04/22 10:01 05/04/22 10:01 05/04/22 10:01 05/04/22 10:01 HEART Score - HEART Score Troponin: Troponin T 2.980 ng/mL (0.00-0.029) H* 04/19/22 07:11 Results - Labs CBC & Chem 7: 05/03/22 04:46 05/04/22 03:48 Labs: Laboratory Last Values WBC 16.4 K/mm3 (4.5-11.0) H 05/03/22 04:46 RBC 3.08 M/mm3 (3.65-5.03) L 05/03/22 04:46 Hgb 8.8 gm/dl (11.8-15.2) L 05/03/22 04:46 Hct 27.7 % (35.5-45.6) L 05/03/22 04:46 MCV 90 fl (84-94) 05/03/22 04:46 MCH 29 pg (28-32) 05/03/22 04:46 MCHC 32 % (32-34) 05/03/22 04:46 RDW 15.0 % (13.2-15.2) 05/03/22 04:46 Plt Count 596 K/mm3 (140-440) H 05/03/22 04:46 Lymph % (Auto) 5.7 % (13.4-35.0) L 04/29/22 04:20 [place] % (Auto) 7.8 % (0.0-7.3) H 04/29/22 04:20 Eos % (Auto) 3.9 % (0.0-4.3) 04/29/22 04:20 Baso % (Auto) 0.6 % (0.0-1.8) 04/29/22 04:20 Lymph # (Auto) 1.1 K/mm3 (1.2-5.4) L 04/29/22 04:20 [place] # (Auto) 1.5 K/mm3 (0.0-0.8) H 04/29/22 04:20 Eos # (Auto) 0.8 K/mm3 (0.0-0.4) H 04/29/22 04:20 Baso # (Auto) 0.1 K/mm3 (0.0-0.1) 04/29/22 04:20 Add Manual Diff Complete 04/23/22 04:19 Total Counted 100 04/23/22 04:19 Seg Neutrophils % 82.0 % (40.0-70.0) H 04/29/22 04:20 Seg Neuts % (Manual) 74.0 % (40.0-70.0) H 04/23/22 04:19 Band Neutrophils % 2.0 % 04/23/22 04:19 Lymphocytes % (Manual) 10.0 % (13.4-35.0) L 04/23/22 04:19 Reactive Lymphs % (Man) 0 % 04/23/22 04:19 Monocytes % (Manual) 7.0 % (0.0-7.3) 04/23/22 04:19 Eosinophils % (Manual) 7.0 % (0.0-4.3) H 04/23/22 04:19 Basophils % (Manual) 0 % (0.0-1.8) 04/23/22 04:19 Metamyelocytes % 0 % 04/23/22 04:19 Myelocytes % 0 % 04/23/22 04:19 Promyelocytes % 0 % 04/23/22 04:19 Blast Cells % 0 % 04/23/22 04:19 Nucleated RBC % Not Reportable 04/23/22 04:19 Seg Neutrophils # 16.3 K/mm3 (1.8-7.7) H 04/29/22 04:20 Seg Neutrophils # Man 8.0 K/mm3 (1.8-7.7) H 04/23/22 04:19 Band Neutrophils # 0.2 K/mm3 04/23/22 04:19 Lymphocytes # (Manual) 1.1 K/mm3 (1.2-5.4) L 04/23/22 04:19 Abs React Lymphs (Man) 0.0 K/mm3 04/23/22 04:19 Monocytes # (Manual) 0.8 K/mm3 (0.0-0.8) 04/23/22 04:19 Eosinophils # (Manual) 0.8 K/mm3 (0.0-0.4) H 04/23/22 04:19 Basophils # (Manual) 0.0 K/mm3 (0.0-0.1) 04/23/22 04:19 Metamyelocytes # 0.0 K/mm3 04/23/22 04:19 Myelocytes # 0.0 K/mm3 04/23/22 04:19 Promyelocytes # 0.0 K/mm3 04/23/22 04:19 Blast Cells # 0.0 K/mm3 04/23/22 04:19 WBC Morphology Not Reportable 04/23/22 04:19 Hypersegmented Neuts Not Reportable 04/23/22 04:19 Hyposegmented Neuts Not Reportable 04/23/22 04:19 Hypogranular Neuts Not Reportable 04/23/22 04:19 Smudge Cells Not Reportable 04/23/22 04:19 Toxic Granulation Not Reportable 04/23/22 04:19 Toxic Vacuolation Not Reportable 04/23/22 04:19 Dohle Bodies Not Reportable 04/23/22 04:19 Pelger-Huet Anomaly Not Reportable 04/23/22 04:19 Regla Rods Not Reportable 04/23/22 04:19 Platelet Estimate Consistent w auto 04/23/22 04:19 Clumped Platelets Not Reportable 04/23/22 04:19 Plt Clumps, EDTA Not Reportable 04/23/22 04:19 Large Platelets Not Reportable 04/23/22 04:19 Giant Platelets Not Reportable 04/23/22 04:19 Platelet Satelliting Not Reportable 04/23/22 04:19 Plt Morphology Comment Not Reportable 04/23/22 04:19 RBC Morphology Not Reportable 04/23/22 04:19 Dimorphic RBCs Not Reportable 04/23/22 04:19 Polychromasia Not Reportable 04/23/22 04:19 Hypochromasia Not Reportable 04/23/22 04:19 Poikilocytosis Not Reportable 04/23/22 04:19 Anisocytosis Not Reportable 04/23/22 04:19 Microcytosis Not Reportable 04/23/22 04:19 Macrocytosis Not Reportable 04/23/22 04:19 Spherocytes Not Reportable 04/23/22 04:19 Pappenheimer Bodies Not Reportable 04/23/22 04:19 Sickle Cells Not Reportable 04/23/22 04:19 Target Cells Not Reportable 04/23/22 04:19 Tear Drop Cells Not Reportable 04/23/22 04:19 Ovalocytes Not Reportable 04/23/22 04:19 Helmet Cells Not Reportable 04/23/22 04:19 [place] Bodies Not Reportable 04/23/22 04:19 [place] Rings Not Reportable 04/23/22 04:19 [place] Cells Not Reportable 04/23/22 04:19 Bite Cells Not Reportable 04/23/22 04:19 Crenated Cell Not Reportable 04/23/22 04:19 Elliptocytes Not Reportable 04/23/22 04:19 Acanthocytes (Spur) Not Reportable 04/23/22 04:19 Rouleaux Not Reportable 04/23/22 04:19 Hemoglobin C Crystals Not Reportable 04/23/22 04:19 Schistocytes Not Reportable 04/23/22 04:19 Malaria parasites Not Reportable 04/23/22 04:19 [place] Bodies Not Reportable 04/23/22 04:19 Hem Pathologist Commnt No 04/23/22 04:19 PT 15.6 Sec. (12.2-14.9) H 04/18/22 Unknown INR 1.08 (0.87-1.13) 04/18/22 Unknown APTT 28.6 Sec. (24.2-36.6) 04/18/22 Unknown Activated Coag Time 179 (74-137) H 04/21/22 12:14 Heparin Anti-Xa Level 0.16 U.I./ml (0.3-0.7) L 04/21/22 04:00 ABG pH 7.442 pH Units (7.350-7.450) 05/02/22 04:45 ABG pCO2 37.8 mm Hg 05/02/22 04:45 ABG pO2 83.1 mm Hg (80.0-90.0) 05/02/22 04:45 ABG HCO3 25.2 mmol/L (20.0-26.0) 05/02/22 04:45 ABG O2 Saturation 97.0 % (95.0-99.0) 05/02/22 04:45 ABG O2 Content 12.6 (0.0-44) 05/02/22 04:45 ABG Base Excess 1.1 mmol/L (-2.0-3.0) 05/02/22 04:45 ABG Hemoglobin 9.3 gm/dl (14.0-18.0) L 05/02/22 04:45 ABG Carboxyhemoglobin 1.4 % (0.0-5.0) 05/02/22 04:45 ABG Methemoglobin 0.4 % (0.0-1.5) 05/02/22 04:45 Oxyhemoglobin 95.2 % (95.0-99.0) 05/02/22 04:45 FiO2 30 % 05/02/22 04:45 Sodium 141 mmol/L (137-145) 05/04/22 03:48 Potassium 4.5 mmol/L (3.6-5.0) D 05/04/22 03:48 Chloride 110.5 mmol/L (98-107) H 05/04/22 03:48 Carbon Dioxide 22 mmol/L (22-30) 05/04/22 03:48 Anion Gap 13 mmol/L 05/04/22 03:48 BUN 30 mg/dL (9-20) H 05/04/22 03:48 Creatinine 1.0 mg/dL (0.8-1.3) 05/04/22 03:48 Estimated GFR > 60 ml/min 05/04/22 03:48 BUN/Creatinine Ratio 30 % 05/04/22 03:48 Glucose 123 mg/dL (75-100) H 05/04/22 03:48 POC Glucose 117 mg/dL (70-105) H 05/04/22 05:03 Lactic Acid 1.90 mmol/L (0.7-2.0) 04/21/22 04:20 Calcium 8.1 mg/dL (8.4-10.2) L 05/04/22 03:48 Phosphorus 3.20 mg/dL (2.5-4.5) 05/03/22 04:46 Magnesium 2.10 mg/dL (1.7-2.3) 05/03/22 04:46 Total Bilirubin 0.40 mg/dL (0.1-1.2) 05/04/22 03:48 Direct Bilirubin 0.3 mg/dL (0-0.2) H 04/30/22 04:25 Indirect Bilirubin 0.1 mg/dL 04/30/22 04:25 AST 88 units/L (5-40) H 05/04/22 03:48 ALT 122 units/L (7-56) H 05/04/22 03:48 Alkaline Phosphatase 171 units/L (35-129) H 05/04/22 03:48 Total Creatine Kinase 61 units/L (55-170) 04/29/22 04:20 CK-MB (CK-2) 28.5 ng/mL (0.0-4.0) H 04/19/22 07:11 CK-MB (CK-2) Rel Index 0.8 (0-4) 04/19/22 07:11 Troponin T 2.980 ng/mL (0.00-0.029) H* 04/19/22 07:11 C-Reactive Protein 15.30 mg/dL (0.00-1.30) H 04/28/22 08:20 Total Protein 7.2 g/dL (6.3-8.2) 05/04/22 03:48 Albumin 2.2 g/dL (3.9-5) L 05/04/22 03:48 Albumin/Globulin Ratio 0.4 % 05/04/22 03:48 Triglycerides 214 mg/dL (2-149) H 05/01/22 04:00 Cholesterol 106 mg/dL (50-199) 04/17/22 19:56 LDL Cholesterol Direct 57 mg/dL (50-130) 04/17/22 19:56 HDL Cholesterol 40 mg/dL (40-59) 04/17/22 19:56 Cholesterol/HDL Ratio 2.65 % 04/17/22 19:56 Procalcitonin 2.90 ng/mL (<0.15) 04/28/22 Unknown Urine Color Straw (Yellow) 04/28/22 08:35 Urine Turbidity Clear (Clear) 04/28/22 08:35 Urine pH 6.0 (5.0-7.0) 04/28/22 08:35 Ur Specific [place] 1.000 (1.003-1.030) L 04/28/22 08:35 Urine Protein 300 mg/dl mg/dL (Negative) 04/28/22 08:35 Urine Glucose (UA) Negative mg/dL (Negative) 04/28/22 08:35 Urine Ketones Negative mg/dL (Negative) 04/28/22 08:35 Urine Blood 3+ (Negative) 04/28/22 08:35 Urine Nitrite Negative (Negative) 04/28/22 08:35 Ur Reducing Substances Not Reportable 04/28/22 08:35 Urine Bilirubin Negative (Negative) 04/28/22 08:35 Urine Ictotest Not Reportable 04/28/22 08:35 Urine Urobilinogen < 2.0 mg/dL (<2.0) 04/28/22 08:35 Ur Leukocyte Esterase Small (Negative) 04/28/22 08:35 Urine WBC (Auto) 21.0 /HPF (0.0-6.0) H 04/28/22 08:35 Urine RBC (Auto) 9.0 /HPF (0.0-6.0) 04/28/22 08:35 Urine Bacteria (Auto) 2+ /HPF (Negative) 04/19/22 02:08 Urine WBC Clumps 3+ /HPF 04/19/22 02:08 RBC Casts 34 /LPF 04/19/22 02:08 Urine Mucus Few /HPF 04/28/22 08:35 Urine Yeast (Budding) 3+ /HPF 04/19/22 02:08 Urine Eosinophils None seen (None Seen) 04/19/22 02:08 Urine Creatinine 90.9 mg/dL (0.1-20.0) H 04/19/22 02:08 Urine Sodium 54 mmol/L 04/19/22 02:08 Digoxin 0.7 ng/mL (0.9-2.0) L 05/03/22 04:46 Coronavirus (PCR) Positive (Negative) A 04/29/22 09:38 Influenza A (RT-PCR) Negative (Negative) 04/29/22 11:44 Influenza B (RT-PCR) Negative (Negative) 04/29/22 11:44 Blood Type A POSITIVE 04/21/22 04:37 Antibody Screen Negative 04/21/22 04:37 Microbiology: Microbiology 04/28/22 07:26 Tracheal Aspirate Sputum Culture - Final [place]/IV: Voiding Method Urinal Active Medications - Current Medications Current Medications: Generic Name Dose Route Start Last Admin Trade Name Freq PRN Reason Stop Dose Admin Acetaminophen 650 mg 04/17/22 19:48 04/28/22 21:38 Acetaminophen 325 Mg Tab PO 650 mg Q6H PRN Administration Pain MILD(1-3)/Fever >100.5/CHE Albuterol 2.5 mg 04/17/22 19:48 Albuterol 2.5 Mg/3 Ml Nebu IH Q3HRT PRN Shortness Of Breath Ascorbic Acid 500 mg 05/04/22 22:00 Ascorbic Acid 500 Mg Tab PO 05/10/22 10:01 BID FLACO Aspirin 81 mg 05/05/22 10:00 Aspirin 81 Mg Tab Chew PO QDAY FLACO Atorvastatin Calcium 20 mg 05/04/22 22:00 Atorvastatin 20 Mg Tab PO QHS FLACO Dexamethasone 8 mg 04/30/22 10:00 05/04/22 09:27 Dexamethasone 4 Mg/Ml Vial IV 05/09/22 10:01 8 mg DAILY FLACO Administration Dextrose 0 ml 04/17/22 23:46 Dextrose 50% In Water (25gm) 50 Ml Syringe IV Q30MIN PRN Hypoglycemia Protocol Digoxin 0.125 mg 05/04/22 17:00 Digoxin 0.125 Mg Tab PO DAILY@1700 [facility] Docusate Sodium 100 mg 05/04/22 22:00 Docusate Sodium 100 Mg/10 Ml Oral Liqd PO BID [facility] Doxazosin Mesylate 1 mg 05/04/22 22:00 Doxazosin 1 Mg Tab PO QHS [facility] Enoxaparin Sodium 120 mg 05/02/22 10:00 05/04/22 09:26 Enoxaparin 120 Mg/0.8 Ml Inj SUB-Q 120 mg Q12HR [facility] Administration Protocol Famotidine 20 mg 05/04/22 22:00 Famotidine 20 Mg Tab PO BID [facility] Fentanyl 50 mcg 04/17/22 20:22 04/30/22 22:41 Fentanyl 100 Mcg/2 Ml Inj IV 50 mcg Q10MIN PRN Administration ANALGESIA Furosemide 20 mg 05/04/22 18:00 Furosemide 20 Mg Tab PO 0600,1800 [facility] Hydrophilic Ointment 1 applic 04/18/22 06:02 04/26/22 20:29 Lip Therapy Vaseline TP 1 applic Q2HR PRN Administration Dry Lips Cefepime HCl 2 gm in 100 mls @ 200 mls/hr 04/28/22 08:00 05/04/22 09:26 Cefepime/Ns 2 Gm/100 Ml IV 200 mls/hr Q8H [facility] Administration Protocol Remdesivir 100 mg/ Sodium 250 mls @ 500 mls/hr 05/01/22 14:00 05/03/22 15:45 Chloride IV 05/04/22 14:29 500 mls/hr Q24HR@1400 [facility] Administration Insulin Glargine 35 units 05/03/22 22:00 05/03/22 21:01 Insulin Glargine 100 Units/Ml SUB-Q 35 units QHS [facility] Administration Insulin Human Lispro 10 unit 05/04/22 11:30 Insulin Lispro 100 Unit/Ml SUB-Q ACHS [facility] Insulin Human Lispro 0 unit 05/04/22 11:30 Insulin Lispro 100 Unit/Ml SUB-Q ACHS [facility] Protocol Metoprolol Tartrate 12.5 mg 05/04/22 10:00 Metoprolol Tartrate 25 Mg Tab PO BID [facility] Multi-Ingred Cream/Lotion/Oil/Oint 1 applic 04/18/22 06:02 Mineral Oil/Petrolatum, White Ophth Oint 3.5 Gm OU Q4HR PRN Dry Eye(s) Oxycodone/Acetaminophen 1 tab 05/04/22 10:00 Oxycodone /Acetaminophen 5-325mg Tab PO Q6H PRN Pain, Moderate (4-6) Senna/Docusate Sodium 2 tab 05/04/22 10:00 05/04/22 09:46 Sennosides/Docusate Sodium 8.6/50 Mg Tab PO Not Given BID FLACO Sodium Chloride 10 ml 04/17/22 22:00 05/04/22 09:28 Sodium Chloride 0.9% 10 Ml Flush Syringe IV 10 ml BID FLACO Administration Sodium Chloride 10 ml 04/17/22 19:48 Sodium Chloride 0.9% 10 Ml Flush Syringe IV PRN PRN LINE FLUSH Sodium Chloride 50 ml 04/30/22 09:00 05/03/22 15:45 Sodium Chloride 0.9% 50 Ml Ivpb IV 05/04/22 14:01 50 ml Q24HR@1400 FLACO Administration Zinc Sulfate 220 mg 04/30/22 22:00 05/04/22 09:27 Zinc Sulfate 220 Mg Cap PO 05/10/22 10:01 220 mg BID FLACO Administration Nutrition/Malnutrition Assess - Dietary Evaluation Nutrition/Malnutrition Findings: Nutrition Notes Start: 04/18/22 08:52 Freq: Status: Active Protocol: Document 04/29/22 11:29 ROMELIA (Rec: 04/29/22 11:55 ROMELIA [id number]) Nutrition Notes Initial or Follow up Reassessment Current Diagnosis Acute Kidney Injury,Diabetes, Sepsis,Hypertension, Respiratory Failure Other Pertinent Diagnosis s/p PEA w/ROSC, HFrEF, Pneumonia, Transaminitis, Rabdomyolisis, .. Current Diet TF-Nepro w/CARBSTEADY @ 35 ml/ hr (from D 04/21). Labs/Tests 04/29: BUN 30, Crea 1.6, Glu 236, Ca 8.1. Pertinent Medications 04/29: Humalog 4U, Propofol @ 3.456 ml/hr (91 Kcal), mothers nutritionally unremarkable. Height 5 ft 9 in Weight 115.2 kg [place] Body Weight (kg) 72.72 BMI 37.5 Weight change and time frame No body weight change reported in 11 days. Weight Status Obese Subjective/Other Information RD consult for routine F/U on TF tolerance/continuation assessment. TF continues as prescribed, no further information available at the time. Pt continues on Mechanical Ventilation, O2 saturation @ 100%, according to Physical Assessment History notes. Pt remains incontinent, according to Physical Assessment History notes. Pt presents blisters on the groin and on hand, according to Physical Assessment History notes. Percent of energy/protein needs met: Prescribed TF-Nepro w/ CARBSTEADY @ 35 ml/hr provides for energy/protein needs (1, 500 Kcal/68 g) during LOS, 77% Kcal; 90% AA. Including 91 Kcal from Propofol: 81% Kcal; 90% AA. Burn Absent Trauma Absent GI Symptoms None Food Allergy No Skin Integrity/Comment Blisters on the groin and on hand. 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 Yes Is Patient Ambulatory and/or Out of Bed No REE-([facility]-confined to bed) 2323.608 Kcal/Kg value to use for calculation 17 Approximate Energy Requirements Using 1958 kcal/Kg Calculation Used for Recommendations Kcal/kg Additional Notes Protein: 0.8-1.2 g/Kg AdjBW; 75-113 g/day. Fluids: 1 ml/Kcal, or as per MD. Nutrition Intervention Nutrition Support: Continue TF-Nepro w/CARBSTEADY @ 35 ml/hr. Flush: 220 ml water Q 4 hr, or as per MD. Kcal 1,500 Protein (gm) 68 Carbohydrates (gm) 134 Fat (gm) 80 Fluid (mL) 606 Fiber (gm) 11 % RDI: 77% Kcal; 90% AA. Goal #1 Provide at least 75% of energy /protein needs through Enteral Feeding during LOS. Follow-Up By: 05/06/22 Additional Comments Continue monitoring TF tolerance, ventilation status, vasopressors, and BM.
--- NOTE | 2022-04-23 12:05 | Progress Note ---
Assessment and Plan VINCENT /TASHA - F/u resolving BUN/Cr & continue IVF NS, f/u urine output. Advise to avoid Diuretics at this time Hypotension - Vasopressin discontinue, f/u pressor management but suggest to hold BP meds while pt on pressor S/p V Fib Arrest - Nonischemic Cardiomyopathy. F/u on Dobutamine Lytes - F/u labs Resp Failure - F/u vent weaning per Pulm May call me for discussion as necessary, thanks Sanchez Strange MD Subjective Date of service: 04/23/22 Principal diagnosis: AHRF; AMS; Pneumonia; Shock; DM II; Severe Metabolic Acidosis Interval history: No new complaint Objective - Vital Signs Vital signs: Vital Signs - 12hr 04/23/22 04/23/22 04/23/22 01:00 02:01 03:00 Temperature Pulse Rate 100 H 109 H 114 H Pulse Rate [ From Monitor] Pulse Rate [ Left Dorsalis Pedis] Pulse Rate [ Left Radial] Pulse Rate [ Right Dorsalis Pedis] Pulse Rate [ Right Radial] Respiratory 19 21 18 Rate Blood Pressure 127/74 140/77 132/71 O2 Sat by Pulse 95 97 94 Oximetry 04/23/22 04/23/22 04/23/22 04:00 05:00 06:00 Temperature 100.4 F H Pulse Rate 106 H 102 H 93 H Pulse Rate [ 102 H From Monitor] Pulse Rate [ Left Dorsalis Pedis] Pulse Rate [ Left Radial] Pulse Rate [ Right Dorsalis Pedis] Pulse Rate [ Right Radial] Respiratory 20 18 18 Rate Blood Pressure 129/71 128/69 135/71 O2 Sat by Pulse 93 95 94 Oximetry 04/23/22 04/23/22 04/23/22 07:00 07:30 08:00 Temperature 99.7 F H Pulse Rate 100 H 92 H Pulse Rate [ 100 H From Monitor] Pulse Rate [ 96 H Left Dorsalis Pedis] Pulse Rate [ 100 H Left Radial] Pulse Rate [ 96 H Right Dorsalis Pedis] Pulse Rate [ 100 H Right Radial] Respiratory 17 17 16 Rate Blood Pressure 135/66 135/66 135/68 O2 Sat by Pulse 94 94 95 Oximetry 04/23/22 04/23/22 04/23/22 08:55 09:00 09:19 Temperature Pulse Rate 100 H 95 H 100 H Pulse Rate [ From Monitor] Pulse Rate [ Left Dorsalis Pedis] Pulse Rate [ Left Radial] Pulse Rate [ Right Dorsalis Pedis] Pulse Rate [ Right Radial] Respiratory 18 Rate Blood Pressure 178/83 141/74 178/83 O2 Sat by Pulse 93 98 Oximetry 04/23/22 10:01 Temperature Pulse Rate 91 H Pulse Rate [ From Monitor] Pulse Rate [ Left Dorsalis Pedis] Pulse Rate [ Left Radial] Pulse Rate [ Right Dorsalis Pedis] Pulse Rate [ Right Radial] Respiratory 20 Rate Blood Pressure 124/69 O2 Sat by Pulse 95 Oximetry - General Appearance General appearance: sedated on ventilator EENT: PERRL Neck: no JVD Respiratory: Present: Other (Good air entry per vent) Cardiology: regular, S1S2 Gastrointestinal: normal, obese Integumentary: warm and dry Neurologic: other (+Arousal) - Lab 04/23/22 04:19 04/23/22 04:19 Most recent lab results ABG pH 7.395 pH Units (7.350-7.450) 04/22/22 10:13 ABG pCO2 47.4 mm Hg 04/22/22 10:13 ABG pO2 56.1 mm Hg (80.0-90.0) L 04/22/22 10:13 ABG HCO3 28.4 mmol/L (20.0-26.0) H 04/22/22 10:13 ABG O2 Saturation 89.3 % (95.0-99.0) L 04/22/22 10:13 Calcium 7.8 mg/dL (8.4-10.2) L 04/23/22 04:19 Phosphorus 2.60 mg/dL (2.5-4.5) 04/23/22 04:19 Magnesium 2.20 mg/dL (1.7-2.3) 04/23/22 04:19 Urine Creatinine 90.9 mg/dL (0.1-20.0) H 04/19/22 02:08 Urine Sodium 54 mmol/L 04/19/22 02:08 Medications & Allergies - Medications Allergies/Adverse Reactions: Allergies No Known Allergies Allergy (Unverified 04/17/22 19:30) Home Medications: Home Medications Medication Instructions Recorded Confirmed Last Taken Type AtorvaSTATin 40 mg PO QHS 04/22/22 04/22/22 Unknown History Humulin N 22 units SQ QHS 04/22/22 04/22/22 Unknown History amLODIPine 10 mg PO QAM 04/22/22 04/22/22 Unknown History glipiZIDE 20 mg PO BID 04/22/22 04/22/22 Unknown History metFORMIN 850 mg PO TID 04/22/22 04/22/22 Unknown History Active Medications: Generic Name Dose Route Start Last Admin Trade Name Freq PRN Reason Stop Dose Admin Acetaminophen 650 mg 04/17/22 19:48 04/22/22 23:52 Acetaminophen 325 Mg Tab PO 650 mg Q6H PRN Administration Pain MILD(1-3)/Fever >100.5/CHE Albuterol 2.5 mg 04/17/22 19:48 Albuterol 2.5 Mg/3 Ml Nebu IH Q3HRT PRN Shortness Of Breath Amiodarone HCl 200 mg 04/21/22 13:00 04/23/22 09:35 Amiodarone 200 Mg Tab PO 200 mg BID FLACO Administration Aspirin 81 mg 04/20/22 12:00 04/23/22 09:15 Aspirin 81 Mg Tab Chew FEEDTUBE 81 mg QDAY FLACO Administration Atorvastatin Calcium 20 mg 04/20/22 22:00 04/22/22 21:14 Atorvastatin 20 Mg Tab FEEDTUBE 20 mg QHS FLACO Administration Dextrose 0 ml 04/17/22 23:46 Dextrose 50% In Water (25gm) 50 Ml Syringe IV Q30MIN PRN Hypoglycemia Protocol Famotidine 20 mg 04/20/22 10:00 04/23/22 09:35 Famotidine 20 Mg Tab FEEDTUBE 20 mg DAILY FLACO Administration Fentanyl 50 mcg 04/17/22 20:22 04/18/22 03:52 Fentanyl 100 Mcg/2 Ml Inj IV 50 mcg Q10MIN PRN Administration ANALGESIA Heparin Sodium (Porcine) 5,000 unit 04/21/22 22:00 04/23/22 09:15 Heparin 5,000 Unit/1 Ml Vial SUB-Q 5,000 unit Q12HR FLACO Administration Hydrophilic Ointment 1 applic 04/18/22 06:02 Lip Therapy Vaseline TP Q2HR PRN Dry Lips NORepinephrine/NS 8 MG-250 ML 8 mg in 250 mls @ 3.75 mls/hr 04/17/22 21:00 04/21/22 19:12 Norepinephrine/Ns 8 Mg-250 Ml (Double Conc) IV 0 mcg/min TITRATE FLACO 0 mls/hr Titration Protocol 2 MCG/MIN Fentanyl Citrate 2,000 mcg in 100 mls @ 5.443 mls/hr 04/17/22 21:00 04/23/22 09:19 Fentanyl Drip Premix IV 3 mcg/kg/hr TITR FLACO 16.329 mls/hr Administration Protocol 1 MCG/KG/HR Propofol 1,000 mg in 100 mls @ 3.456 mls/hr 04/18/22 07:00 04/23/22 09:45 Diprivan 10 Mg/Ml IV 15 mcg/kg/min TITR FLACO 10.368 mls/hr Titration Protocol 5 MCG/KG/MIN Phenylephrine HCl 100 mg/ 100 mls @ 3 mls/hr 04/18/22 07:30 Sodium Chloride IV TITR FLACO Protocol 50 MCG/MIN Levofloxacin/Dextrose 500 mg in 100 mls @ 100 mls/hr 04/20/22 22:00 04/22/22 21:13 Levaquin 500mg/100ml IV 04/25/22 21:59 100 mls/hr Q48H FLACO Administration Protocol Vasopressin 20 unit/ Sodium 101 mls @ 12.12 mls/hr 04/21/22 15:00 04/22/22 15:15 Chloride IV 0 units/min DIRECT FLACO 0 mls/hr Infusion 0.04 UNITS/MIN Dobutamine HCl 500 mg/ 250 mls @ 8.64 mls/hr 04/22/22 14:00 04/23/22 09:30 Dextrose IV 2.5 mcg/kg/min DIRECT FLACO 8.64 mls/hr Infusion 2.5 MCG/KG/MIN Insulin Glargine 40 units 04/23/22 22:00 Insulin Glargine 100 Units/Ml SUB-Q QHS REPLACED BY [facility] Insulin Human Lispro 0 unit 04/18/22 00:00 04/23/22 11:26 Insulin Lispro 100 Unit/Ml SUB-Q 8 unit Q6HR REPLACED BY [facility] Administration Protocol Insulin Human Lispro 5 unit 04/23/22 12:00 04/23/22 11:26 Insulin Lispro 100 Unit/Ml SUB-Q 5 unit Q6HR REPLACED BY [facility] Administration Multi-Ingred Cream/Lotion/Oil/Oint 1 applic 04/18/22 06:02 Mineral Oil/Petrolatum, White Ophth Oint 3.5 Gm OU Q4HR PRN Dry Eye(s) Oxycodone/Acetaminophen 1 tab 04/22/22 11:05 Oxycodone /Acetaminophen 5-325mg Tab FEEDTUBE Q6H PRN Pain, Moderate (4-6) Quetiapine Fumarate 100 mg 04/22/22 22:00 04/23/22 09:15 Quetiapine 100 Mg Tab FEEDTUBE 100 mg BID FLACO Administration Senna/Docusate Sodium 1 tab 04/18/22 10:00 04/23/22 09:15 Sennosides/Docusate Sodium 8.6/50 Mg Tab FEEDTUBE 1 tab BID FLACO Administration Sodium Chloride 10 ml 04/17/22 22:00 04/23/22 09:36 Sodium Chloride 0.9% 10 Ml Flush Syringe IV 10 ml BID FLACO Administration Sodium Chloride 10 ml 04/17/22 19:48 Sodium Chloride 0.9% 10 Ml Flush Syringe IV PRN PRN LINE FLUSH
[2022-04-23] MEDS ORDERED: propofoL 200 MG/20 ML VIAL IV ONE (13:44)
[2022-04-23] MEDS ORDERED: hydrALAZINE 20 MG/1 ML INJ ONE (13:53)
--- NOTE | 2022-04-23 14:24 | Progress Note ---
Subjective Date of service: 04/23/22 Principal diagnosis: AHRF; AMS; Pneumonia; Shock; DM II; Severe Metabolic Acidosis Interval history: Intubation in the ICU 13:45 - 14:[address] Yang and RT to the ICU patient after cardiac arrest, who was intubated but appeared had a leak in ETT with ineffective mechanical ventilation and desaturation. On arrival patient is extubated, in AMBU mask ventilation. SpO2 81-82%, patient appeared to be awake, opening his eyes. BP 185/95, HR~100, irregular. Attempted intubation x 3 with glidescope was unsuccessful due to swollen airways with signifficant ammount of mucose coming out of trachea. Tube exchanger was successfully passed through the vocal cords under Glidescope control, followed by ETT 8mm glided over it. Position of ETT confirmed by color change of CO2 indicator. SpO2 came up to the high 90s. Transfer of care to RT. Used Propofol 150mg (drawn from the patient's infusion 1000mg bottle) and 200mg of Succinylcholine. Objective - Constitutional Vitals: Vital Signs - 12hr 04/23/22 04/23/22 04/23/22 03:00 04:00 05:00 Temperature 100.4 F H Pulse Rate 114 H 106 H 102 H Pulse Rate [ 102 H From Monitor] Pulse Rate [ Left Dorsalis Pedis] Pulse Rate [ Left Radial] Pulse Rate [ Right Dorsalis Pedis] Pulse Rate [ Right Radial] Respiratory 18 20 18 Rate Blood Pressure 132/71 129/71 128/69 O2 Sat by Pulse 94 93 95 Oximetry 04/23/22 04/23/22 04/23/22 06:00 07:00 07:30 Temperature 99.7 F H Pulse Rate 93 H 100 H Pulse Rate [ 100 H From Monitor] Pulse Rate [ 96 H Left Dorsalis Pedis] Pulse Rate [ 100 H Left Radial] Pulse Rate [ 96 H Right Dorsalis Pedis] Pulse Rate [ 100 H Right Radial] Respiratory 18 17 17 Rate Blood Pressure 135/71 135/66 135/66 O2 Sat by Pulse 94 94 94 Oximetry 04/23/22 04/23/22 04/23/22 08:00 08:55 09:00 Temperature Pulse Rate 92 H 100 H 95 H Pulse Rate [ From Monitor] Pulse Rate [ Left Dorsalis Pedis] Pulse Rate [ Left Radial] Pulse Rate [ Right Dorsalis Pedis] Pulse Rate [ Right Radial] Respiratory 16 18 Rate Blood Pressure 135/68 178/83 141/74 O2 Sat by Pulse 95 93 98 Oximetry 04/23/22 04/23/22 04/23/22 09:19 10:01 12:06 Temperature Pulse Rate 100 H 91 H 91 H Pulse Rate [ From Monitor] Pulse Rate [ Left Dorsalis Pedis] Pulse Rate [ Left Radial] Pulse Rate [ Right Dorsalis Pedis] Pulse Rate [ Right Radial] Respiratory 20 Rate Blood Pressure 178/83 124/69 124/69 O2 Sat by Pulse 95 97 Oximetry - Labs CBC & Chem 7: 04/23/22 04:19 04/23/22 04:19 Labs: Abnormal lab results 04/22/22 04/22/22 04/22/22 Range/Units 18:02 21:18 23:30 RBC (3.65-5.03) M/mm3 Hgb (11.8-15.2) gm/dl Hct (35.5-45.6) % Seg Neuts % (Manual) (40.0-70.0) % Lymphocytes % (Manual) (13.4-35.0) % Eosinophils % (Manual) (0.0-4.3) % Seg Neutrophils # Man (1.8-7.7) K/mm3 Lymphocytes # (Manual) (1.2-5.4) K/mm3 Eosinophils # (Manual) (0.0-0.4) K/mm3 Potassium (3.6-5.0) mmol/L BUN (9-20) mg/dL Creatinine (0.8-1.3) mg/dL Glucose (75-100) mg/dL POC Glucose 266 H 299 H 299 H (70-105) mg/dL Calcium (8.4-10.2) mg/dL AST (5-40) units/L ALT (7-56) units/L Alkaline Phosphatase (35-129) units/L Total Protein (6.3-8.2) g/dL Albumin (3.9-5) g/dL Triglycerides (2-149) mg/dL 04/23/22 04/23/22 04/23/22 Range/Units 04:19 04:19 05:24 RBC 3.34 L (3.65-5.03) M/mm3 Hgb 9.9 L (11.8-15.2) gm/dl Hct 29.9 L (35.5-45.6) % Seg Neuts % (Manual) 74.0 H (40.0-70.0) % Lymphocytes % (Manual) 10.0 L (13.4-35.0) % Eosinophils % (Manual) 7.0 H (0.0-4.3) % Seg Neutrophils # Man 8.0 H (1.8-7.7) K/mm3 Lymphocytes # (Manual) 1.1 L (1.2-5.4) K/mm3 Eosinophils # (Manual) 0.8 H (0.0-0.4) K/mm3 Potassium 3.5 L (3.6-5.0) mmol/L BUN 30 H (9-20) mg/dL Creatinine 2.3 H (0.8-1.3) mg/dL Glucose 289 H (75-100) mg/dL POC Glucose 271 H (70-105) mg/dL Calcium 7.8 L (8.4-10.2) mg/dL AST 46 H (5-40) units/L ALT 158 H (7-56) units/L Alkaline Phosphatase 138 H (35-129) units/L Total Protein 6.2 L (6.3-8.2) g/dL Albumin 2.6 L (3.9-5) g/dL Triglycerides 230 H (2-149) mg/dL 04/23/22 Range/Units 11:20 RBC (3.65-5.03) M/mm3 Hgb (11.8-15.2) gm/dl Hct (35.5-45.6) % Seg Neuts % (Manual) (40.0-70.0) % Lymphocytes % (Manual) (13.4-35.0) % Eosinophils % (Manual) (0.0-4.3) % Seg Neutrophils # Man (1.8-7.7) K/mm3 Lymphocytes # (Manual) (1.2-5.4) K/mm3 Eosinophils # (Manual) (0.0-0.4) K/mm3 Potassium (3.6-5.0) mmol/L BUN (9-20) mg/dL Creatinine (0.8-1.3) mg/dL Glucose (75-100) mg/dL POC Glucose 302 H (70-105) mg/dL Calcium (8.4-10.2) mg/dL AST (5-40) units/L ALT (7-56) units/L Alkaline Phosphatase (35-129) units/L Total Protein (6.3-8.2) g/dL Albumin (3.9-5) g/dL Triglycerides (2-149) mg/dL
[2022-04-23] MEDS ORDERED: SUCCINYLCHOLINE CHLORIDE 200 MG/10 ML INJ MDV ONE (14:30)
--- NOTE | 2022-04-23 15:09 | XRay Report ---
CHEST 1 VIEW 04/23/2022 2:02 PM INDICATION / CLINICAL INFORMATION: retintubation. COMPARISON: April 23, 2022 FINDINGS: SUPPORT DEVICES: Stable, satisfactory device positioning. HEART / MEDIASTINUM: Cardiomegaly LUNGS / PLEURA: Increased pulmonary vascularity with left effusion No pneumothorax. Signer Name: Lewis Roe MD Signed: 04/23/2022 3:05 PM Workstation Name: [id number]
--- NOTE | 2022-04-23 15:10 | XRay Report ---
ABDOMEN 1 VIEW(S) INDICATION / CLINICAL INFORMATION: NGT placement. COMPARISON: None available. FINDINGS: TUBES / LINES: Feeding tube is doubled back on itself in the proximal stomach. BOWEL GAS PATTERN: There is mild gaseous distention of small and large bowel. FREE AIR / EXTRALUMINAL GAS: None seen. ADDITIONAL FINDINGS: No significant additional findings. IMPRESSION: 1. Feeding tube as above. Mild gaseous distention of small and large bowel could be seen in the setti ng of adynamic ileus. Signer Name: Matt Jacobo MD Signed: 04/23/2022 3:05 PM Workstation Name: [email or web address]
--- NOTE | 2022-04-23 16:22 | XRay Report ---
ABDOMEN 1 VIEW(S) 3:57 PM INDICATION / CLINICAL INFORMATION: NGT placement. COMPARISON: Earlier today FINDINGS: TUBES / LINES: Feeding tube tip is in the mid to distal stomach. BOWEL GAS PATTERN: No significant abnormality. FREE AIR / EXTRALUMINAL GAS: None seen. ADDITIONAL FINDINGS: No significant additional findings. IMPRESSION: 1. Feeding tube tip in the mid to distal stomach. Signer Name: Matt Jacobo MD Signed: 04/23/2022 4:18 PM Workstation Name: [employer]
[2022-04-23] MEDS: ACETAMINOPHEN 325 MG TAB PO PRN (17:28)
[2022-04-23 19:23] LABS: ABG Base Excess 4.8 mmol/L (-2.0-3.0); ABG HCO3 31.6 mmol/L (20.0-26.0); ABG Methemoglobin 0.6 % (0.0-1.5); ABG Oxygen Saturation 96.7 % (95.0-99.0); ABG PH 7.393 pH Units (7.350-7.450); ABG PO2 87.9 mm Hg (80.0-90.0)
[2022-04-23] MEDS: INSULIN GLARGINE 100 UNITS/ML SUB-Q SCH (21:15)
[2022-04-23] MEDS ORDERED: QUEtiapine 25 MG TAB FEEDTUBE SCH (22:00)
[2022-04-24] MEDS: INSULIN LISPRO 100 UNIT/ML SUB-Q SCH ×10 (00:09→23:44)
[2022-04-24] MEDS: WATER IV SCH (00:10)
[2022-04-24] MEDS: DOBUTAMINE IV SCH (00:10)
[2022-04-24] MEDS: DEXTROSE 5% IV SCH (00:10)
[2022-04-24] MEDS: ACETAMINOPHEN 325 MG TAB PO PRN ×4 (01:04→23:41)
[2022-04-24] MEDS: fentaNYL DRIP Premix 2,000 MCG/100 ML BAG IV SCH ×4 (03:06→20:46)
[2022-04-24 04:49] LABS: ABG Base Excess 6.1 mmol/L (-2.0-3.0); ABG HCO3 31.5 mmol/L (20.0-26.0); ABG Methemoglobin 0.5 % (0.0-1.5); ABG Oxygen Saturation 96.9 % (95.0-99.0); ABG PCO2 50.1 mm Hg; ABG PH 7.417 pH Units (7.350-7.450); ABG PO2 83.4 mm Hg (80.0-90.0)
--- NOTE | 2022-04-24 05:27 | XRay Report ---
XR chest 1V ap INDICATION / CLINICAL INFORMATION: follow up respiratory failure. COMPARISON: Radiograph from yesterday. FINDINGS: SUPPORT DEVICES: Unchanged. HEART /PULMONARY VASCULATURE: Unchanged. LUNGS / PLEURA: Bibasilar opacities and small pleural effusions are unchanged. No pneumothorax. IMPRESSION: 1. No significant interval change. Signer Name: Buddy Barrow MD Signed: 04/24/2022 5:23 AM Workstation Name: [id number]
[2022-04-24 06:35] LABS: Eosinophils # (Auto) 0.8 K/mm3 (0.0-0.4); Hematocrit 31.9 % (35.5-45.6); Hemoglobin 10.1 gm/dl (11.8-15.2); Lymphocytes # (Auto) 0.7 K/mm3 (1.2-5.4); Lymphocytes % (Auto) 4.7 % (13.4-35.0); Mean Corpuscular HGB Conc 32 % (32-34); Mean Corpuscular Volume 89 fl (84-94); Monocytes # (Auto) 1.2 K/mm3 (0.0-0.8); Monocytes % (Auto) 8.8 % (0.0-7.3); Platelet Count 210 K/mm3 (140-440); Red Blood Count 3.57 M/mm3 (3.65-5.03); Red Cell Distribution Width 14.6 % (13.2-15.2)
[2022-04-24 06:58] LABS: Albumin 2.2 g/dL (3.9-5); Calcium 8.2 mg/dL (8.4-10.2)
[2022-04-24] MEDS ORDERED: POTASSIUM CHLORIDE 20 MEQ PACKET FEEDTUBE NR (08:00)
--- NOTE | 2022-04-24 09:00 | Progress Note ---
Assessment and Plan It will be recalled that he presented to [facility] emergency clinic with chest pain, and during his evaluation there, suffered an acute cardiopulmonary arrest prompting his transfer to the emergency room at [facility]. Ventricular fibrillation was reported, although no strips available for review. EKG on presentation here was a rapid atrial fibrillation with some nonspecific ST segment changes which have since resolved. Echocardiogram showed a four-chamber dilated cardiomyopathy with left ventricular ejection fraction 15 to 20%. The chronicity of the cardiomyopathy is uncertain, the patient's does not report any recent cardiac evaluation, with only a history of atrial fibrillation requiring cardioversion some 15 years ago. Cardiac catheterization performed this admission showed no significant obstructive coronary lesions, consistent with nonischemic cardiomyopathy. Post cardiac catheterization, and IV hydration, his creatinine has reduced from 4.6- 2.9. The patient however still vent dependent, with high oxygen rate requirements. Chest x-ray today shows a mostly right lung opacity, the ICU team is treating him for possible aspiration. Eventually, he would need a device during this hospitalization for secondary prevention of sudden cardiac before discharge as he had cardiac arrest and low ejection fraction. If the patient has active infection and cannot get a device he will at least need a LifeVest we will introduce afterload agents and beta-blockers for LV systolic dysfunction once he is off pressors/inotropic agents and clinically stable. We will continue oral amiodarone, indicated for rate control as we have very limited option for rate control strategy. Since the patient's creatinine has been improving we will load with digoxin 0.25 mg and assess the response. If the heart rate is still very high we can give another dose of 0.125 mg of digoxin. We will check the digoxin level tomorrow morning. The goal is to wean him off dobutamine. He will need long-term oral anticoagulation for atrial fibrillation will initiate it when clinically stable. - Patient Problems (1) Atrial fibrillation with RVR Current Visit: Yes Status: Acute (2) Cardiac arrest Current Visit: Yes Status: Acute (3) Cardiogenic shock Current Visit: Yes Status: Acute Subjective Date of service: 04/24/22 Principal diagnosis: AHRF; AMS; Pneumonia; Shock; DM II; Severe Metabolic Aci dosis Interval history: Patient had some issues with the ET tube and self extubated, he was unable to maintain oxygen saturations so anesthesia had to reintubate him. Patient is still off vasopressin and currently on dobutamine. He is tolerating it well with rates controlled and improved blood pressure overnight. His creatinine continues to improve. Telemetry reviewed, still in atrial fibrillation with heart rates in low 100's Objective Vital Signs Temp Pulse Pulse Pulse Resp Resp BP 04/24/22 08:00 106 H 16 123/72 04/24/22 07:05 17 04/24/22 07:00 111 H 17 114/70 04/24/22 06:05 17 04/24/22 06:00 101 H 18 130/72 04/24/22 05:05 17 04/24/22 05:00 105 H 16 124/76 04/24/22 04:00 100.3 F H 105 H 18 122/69 04/24/22 03:48 117/65 04/24/22 03:00 110 H 17 116/73 04/24/22 02:04 17 04/24/22 02:03 17 04/24/22 02:00 103 H 16 125/71 04/24/22 01:04 16 04/24/22 01:00 102 H 17 123/62 04/24/22 00:00 100.2 F H 97 H 18 105/66 04/23/22 23:25 17 04/23/22 23:23 107 H 18 108/66 04/23/22 23:20 108/66 04/23/22 23:00 105 H 20 108/66 04/23/22 22:00 120 H 18 117/64 04/23/22 21:00 103 H 16 117/65 04/23/22 20:20 116/67 04/23/22 20:01 112 H 17 116/67 04/23/22 20:00 99 F 04/23/22 19:21 118 H 18 127/65 04/23/22 19:11 110 H 17 124/89 04/23/22 19:00 124 H 124 H 17 120/69 04/23/22 18:10 118 H 127/65 04/23/22 18:00 113 H 18 127/65 04/23/22 17:00 123 H 123 H 17 114/75 04/23/22 16:00 102 F H 118 H 118 H 118 H 17 119/74 04/23/22 15:00 121 H 18 130/68 04/23/22 14:00 108 H 35 H 118/85 04/23/22 13:35 138 H 127/65 04/23/22 13:15 04/23/22 13:00 111 H 20 133/78 04/23/22 12:06 91 H 124/69 04/23/22 12:00 97 H 97 H 98 H 18 136/87 04/23/22 11:00 95 H 21 125/70 04/23/22 10:01 91 H 20 124/69 04/23/22 09:19 100 H 178/83 04/23/22 09:00 95 H 18 141/74 04/23/22 08:55 100 H 178/83 Pulse Ox 04/24/22 08:00 97 04/24/22 07:05 04/24/22 07:00 96 04/24/22 06:05 04/24/22 06:00 96 04/24/22 05:05 99 04/24/22 05:00 96 04/24/22 04:00 97 04/24/22 03:48 100 04/24/22 03:00 99 04/24/22 02:04 04/24/22 02:03 04/24/22 02:00 98 04/24/22 01:04 04/24/22 01:00 98 04/24/22 00:00 97 04/23/22 23:25 04/23/22 23:23 100 04/23/22 23:20 99 04/23/22 23:00 99 04/23/22 22:00 97 04/23/22 21:00 99 04/23/22 20:20 99 04/23/22 20:01 99 04/23/22 20:00 04/23/22 19:21 100 04/23/22 19:11 99 04/23/22 19:00 95 04/23/22 18:10 100 04/23/22 18:00 98 04/23/22 17:00 100 04/23/22 16:00 96 04/23/22 15:00 97 04/23/22 14:00 89 04/23/22 13:35 86 04/23/22 13:15 98 04/23/22 13:00 96 04/23/22 12:06 97 04/23/22 12:00 95 04/23/22 11:00 95 08/11/22 10:01 95 04/23/22 09:19 04/23/22 09:00 98 04/23/22 08:55 93 - Physical Examination General: Other (Patient is intubated, sedated, on the vent) HEENT: Positive: Other (Pupils fixed) Neck: Positive: neck supple Cardiac: Positive: irregularly irregular, S1/S2. Negative: Audible Murmur Lungs: Positive: clear to auscultation (Anterior) Neuro: Positive: Other (Intubated, sedated on the vent, unable to assess) Abdomen: Positive: Soft Skin: Positive: Other (Blisters on the right hand) Extremities: Present: edema (Trace) - Labs and Meds Cardiac Enzymes 04/24/22 Range/Units 06:00 AST 35 (5-40) units/L CBC 04/24/22 Range/Units 06:00 WBC 14.0 H (4.5-11.0) K/mm3 RBC 3.57 L (3.65-5.03) M/mm3 Hgb 10.1 L (11.8-15.2) gm/dl Hct 31.9 L (35.5-45.6) % Plt Count 210 (140-440) K/mm3 Lymph # (Auto) 0.7 L (1.2-5.4) K/mm3 [place] # (Auto) 1.2 H (0.0-0.8) K/mm3 Eos # (Auto) 0.8 H (0.0-0.4) K/mm3 Baso # (Auto) 0.0 (0.0-0.1) K/mm3 Comprehensive Metabolic Panel 04/24/22 Range/Units 06:00 Sodium 145 (137-145) mmol/L Potassium 3.4 L (3.6-5.0) mmol/L Chloride 105.8 (98-107) mmol/L Carbon Dioxide 29 (22-30) mmol/L BUN 25 H (9-20) mg/dL Creatinine 1.8 H (0.8-1.3) mg/dL Glucose 218 H (75-100) mg/dL Calcium 8.2 L (8.4-10.2) mg/dL AST 35 (5-40) units/L ALT 99 H (7-56) units/L Alkaline Phosphatase 141 H (35-129) units/L Total Protein 6.2 L (6.3-8.2) g/dL Albumin 2.2 L (3.9-5) g/dL - Allied health notes Allied health notes reviewed: nursing
[2022-04-24] MEDS: ASPIRIN 81 MG TAB CHEW FEEDTUBE SCH (09:06)
[2022-04-24] MEDS: QUEtiapine 100 MG TAB FEEDTUBE SCH ×2 (09:06→21:20)
[2022-04-24] MEDS: SENNOSIDES/DOCUSATE SODIUM 8.6/50 MG TAB FEEDTUBE SCH ×2 (09:06→21:20)
[2022-04-24] MEDS: FAMOTIDINE 20 MG TAB FEEDTUBE SCH (09:06)
[2022-04-24] MEDS: AMIODARONE 200 MG TAB PO SCH ×2 (09:07→21:20)
[2022-04-24] MEDS: HEPARIN 5,000 UNIT/1 ML VIAL SUB-Q SCH ×2 (09:07→21:16)
--- NOTE | 2022-04-24 09:40 | Progress Note ---
Assessment and Plan This is a 62 year old male with OHS, HTN, DM, metabolic syndrome, s/p vfib cardiac arrest, Septic shock, aspiration pneumonia, transaminitis, VINCENT with acute metabolic encephalopathy Acute hypoxemic respiratory failure on MVS s/p cardiac arrest Altered mental status Aspiration pneumonia Shock (Cardiogenic +/- Septic) Severe Metabolic Acidosis Morbid Obesity Diabetes type II Hypotension Obesity hypoventilation syndrome Turn down fixed dose Dobutamine to 2.5 USS for pleural effusions- no significant effusion SAT/SBT today for at least an hour, may need diuresis prior to liberation from MVS Updated at the upside - prn vasopressors for target MAP > 65mmHg - continue to titrate supplemental oxygen to keep SpO2 89-92% - VAP bundle addressed, aspiration precautions - continue lung protective strategies - continue bronchodilators with pulmonary hygiene per RT - wean per pulmonary driven protocols otherwise - avoid nephrotoxins, renally dose all medications - continue accuchecks with glycemic control per SSI (While critically ill target blood glucose of 140-180 mg/dL; avoid hypoglycemia) - sedation prn for target RASS 0 to -1 - continue to avoid benzodiazepines, reduce the possibility of delirium - prn analgesia per CPOT score - Maintenance of sleep-wake cycle, avoid delirium - continue enteral nutritional support at goal rate as tolerated - Stress ulcer and VTE prophylaxis - continue mobility protocols for pressure ulcer prevention - Monitor hemodynamics closely - continue other care per attending / other consultants - discharge planning ongoing concurrently COVID SPECIFIC INTERVENTIONS - COVID-19 test result negative CONDITION: CRITICAL PROGNOSIS: GUARDED CODE STATUS: FULL CODE The high probability of a clinically significant, sudden or life-threatening deterioration of the [respiratory, cardiovascular, renal ] system(s) required my full and direct attention, intervention and personal management. The aggregate critical care time was [35] minutes without overlap. Time includes spent on; [x] Data Review and interpretation [x] Patient assessment and monitoring of vital signs [x] Documentation [x] Medication orders and management Subjective Date of service: 04/24/22 Principal diagnosis: AHRF; AMS; Pneumonia; Shock; DM II; Severe Metabolic Acidosis Interval history: Patient is seen today for: Acute hypoxemic respiratory failure; AMS; Aspiration pneumonia; Shock (Cardiogenic +/- Septic); DM II; Severe Metabolic Acidosis Seen and examined at bedside; 24hour events reviewed; nursing and respiratory care staff consulted; no adverse overnight events reported to me; resting in bed; remains on MVS; PEEP +8/45%, obeying simple commands; no emesis or overt aspiration; no fevers, no vomiting. No acute overnight events reported, visiting at the bedside Objective Vital Signs - 12hr 04/23/22 04/23/22 04/23/22 22:00 23:00 23:20 Temperature Pulse Rate 120 H 105 H Respiratory 18 20 Rate Respiratory Rate [no] Blood Pressure 117/64 108/66 108/66 O2 Sat by Pulse 97 99 99 Oximetry 04/23/22 04/23/22 04/24/22 23:23 23:25 00:00 Temperature 100.2 F H Pulse Rate 107 H 97 H Respiratory 18 18 Rate Respiratory 17 Rate [no] Blood Pressure 108/66 105/66 O2 Sat by Pulse 100 97 Oximetry 04/24/22 04/24/22 04/24/22 01:00 01:04 02:00 Temperature Pulse Rate 102 H 103 H Respiratory 17 16 16 Rate Respiratory Rate [no] Blood Pressure 123/62 125/71 O2 Sat by Pulse 98 98 Oximetry 04/24/22 04/24/22 04/24/22 02:03 02:04 03:00 Temperature Pulse Rate 110 H Respiratory 17 17 17 Rate Respiratory Rate [no] Blood Pressure 116/73 O2 Sat by Pulse 99 Oximetry 04/24/22 04/24/22 04/24/22 03:48 04:00 05:00 Temperature 100.3 F H Pulse Rate 105 H 105 H Respiratory 18 16 Rate Respiratory Rate [no] Blood Pressure 117/65 122/69 124/76 O2 Sat by Pulse 100 97 96 Oximetry 04/24/22 04/24/22 04/24/22 05:05 06:00 06:05 Temperature Pulse Rate 101 H Respiratory 17 18 17 Rate Respiratory Rate [no] Blood Pressure 130/72 O2 Sat by Pulse 99 96 Oximetry 04/24/22 04/24/22 04/24/22 07:00 07:05 08:00 Temperature Pulse Rate 111 H 106 H Respiratory 17 17 16 Rate Respiratory Rate [no] Blood Pressure 114/70 123/72 O2 Sat by Pulse 96 97 Oximetry Constitutional: no acute distress, other (elderly obese 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 MVS) Eyes: non-icteric ENT: oropharynx moist, other (ETT 24 cm DIANNE) Neck: supple, no JVD Effort: normal Ascultation: Bilateral: diminished breath sounds, rales (improved) Percussion: Bilateral: not dull Cardiovascular: irregular rhythm, other (No R/M) Gastrointestinal: normoactive bowel sounds, soft, non-tender, non-distended (protuberant) Integumentary: normal Extremities: no cyanosis, no edema, pulses normal, no ischemia or petechiae Neurologic: non-focal exam (grossly), pupils equal and round, unable to assess Psychiatric: other (Unable to assess due to mental status.) CBC and BMP: 04/27/22 04:00 04/27/22 04:00 ABG, PT/INR, D-dimer: ABG ABG pH 7.417 pH Units (7.350-7.450) 04/24/22 04:35 ABG pCO2 50.1 mm Hg 04/24/22 04:35 ABG pO2 83.4 mm Hg (80.0-90.0) 04/24/22 04:35 ABG O2 Saturation 96.9 % (95.0-99.0) 04/24/22 04:35 PT/INR, D-dimer PT 15.6 Sec. (12.2-14.9) H 04/18/22 Unknown INR 1.08 (0.87-1.13) 04/18/22 Unknown Abnormal lab findings: Abnormal Labs 04/17/22 04/17/22 04/17/22 19:18 19:55 19:56 WBC RBC Hgb Hct Plt Count Lymph % (Auto) Mckean % (Auto) Eos % (Auto) Lymph # (Auto) Mckean # (Auto) Eos # (Auto) Seg Neutrophils % Seg Neuts % (Manual) Lymphocytes % (Manual) Eosinophils % (Manual) Seg Neutrophils # Seg Neutrophils # Man Lymphocytes # (Manual) Eosinophils # (Manual) PT Activated Coag Time Heparin Anti-Xa Level ABG pH 7.120 L* ABG pO2 45.3 L ABG HCO3 18.5 L ABG O2 Saturation 68.3 L ABG Base Excess -11.5 L ABG Hemoglobin Oxyhemoglobin 66.8 L Sodium Potassium Chloride 94.2 L Carbon Dioxide 17 L BUN Creatinine 1.6 H Glucose 315 H POC Glucose 277 H Lactic Acid Calcium Phosphorus Magnesium AST 529 H ALT 318 H Alkaline Phosphatase 137 H Total Creatine Kinase 398 H CK-MB (CK-2) 17.9 H CK-MB (CK-2) Rel Index 4.4 H Troponin T 0.205 H* Total Protein Albumin Triglycerides Urine Blood Urine WBC (Auto) Urine Creatinine 04/17/22 04/17/22 04/17/22 19:58 19:58 21:42 WBC 11.9 H RBC 5.17 H Hgb 15.5 H Hct 48.0 H Plt Count Lymph % (Auto) Mckean % (Auto) Eos % (Auto) Lymph # (Auto) Mckean # (Auto) Eos # (Auto) Seg Neutrophils % 71.7 H Seg Neuts % (Manual) Lymphocytes % (Manual) Eosinophils % (Manual) Seg Neutrophils # 8.5 H Seg Neutrophils # Man Lymphocytes # (Manual) Eosinophils # (Manual) PT Activated Coag Time Heparin Anti-Xa Level ABG pH ABG pO2 ABG HCO3 ABG O2 Saturation ABG Base Excess ABG Hemoglobin Oxyhemoglobin Sodium Potassium Chloride 95.0 L Carbon Dioxide 19 L BUN Creatinine 1.5 H Glucose 306 H POC Glucose Lactic Acid Calcium Phosphorus Magnesium AST ALT Alkaline Phosphatase Total Creatine Kinase 412 H CK-MB (CK-2) 19.2 H CK-MB (CK-2) Rel Index 4.6 H Troponin T 0.285 H* D Total Protein Albumin Triglycerides Urine Blood Urine WBC (Auto) Urine Creatinine 04/17/22 04/18/22 04/18/22 21:42 00:40 01:07 WBC RBC Hgb Hct Plt Count Lymph % (Auto) Mckean % (Auto) Eos % (Auto) Lymph # (Auto) Mckean # (Auto) Eos # (Auto) Seg Neutrophils % Seg Neuts % (Manual) Lymphocytes % (Manual) Eosinophils % (Manual) Seg Neutrophils # Seg Neutrophils # Man Lymphocytes # (Manual) Eosinophils # (Manual) PT Activated Coag Time Heparin Anti-Xa Level ABG pH ABG pO2 ABG HCO3 ABG O2 Saturation ABG Base Excess ABG Hemoglobin Oxyhemoglobin Sodium Potassium Chloride Carbon Dioxide BUN Creatinine Glucose POC Glucose 320 H Lactic Acid 7.90 H* 7.90 H* Calcium Phosphorus Magnesium AST ALT Alkaline Phosphatase Total Creatine Kinase CK-MB (CK-2) CK-MB (CK-2) Rel Index Troponin T Total Protein Albumin Triglycerides Urine Blood Urine WBC (Auto) Urine Creatinine 04/18/22 04/18/22 04/18/22 01:07 04:00 06:04 WBC RBC Hgb Hct Plt Count Lymph % (Auto) Mckean % (Auto) Eos % (Auto) Lymph # (Auto) Mckean # (Auto) Eos # (Auto) Seg Neutrophils % Seg Neuts % (Manual) Lymphocytes % (Manual) Eosinophils % (Manual) Seg Neutrophils # Seg Neutrophils # Man Lymphocytes # (Manual) Eosinophils # (Manual) PT Activated Coag Time Heparin Anti-Xa Level < 0.10 L ABG pH ABG pO2 ABG HCO3 ABG O2 Saturation ABG Base Excess ABG Hemoglobin Oxyhemoglobin Sodium Potassium Chloride Carbon Dioxide BUN Creatinine Glucose POC Glucose 305 H Lactic Acid Calcium Phosphorus Magnesium AST ALT Alkaline Phosphatase Total Creatine Kinase 488 H CK-MB (CK-2) 25.3 H CK-MB (CK-2) Rel Index 5.1 H Troponin T 0.665 H* D Total Protein Albumin Triglycerides Urine Blood Urine WBC (Auto) Urine Creatinine 04/18/22 04/18/22 04/18/22 06:20 11:10 12:48 WBC RBC Hgb Hct Plt Count Lymph % (Auto) Mckean % (Auto) Eos % (Auto) Lymph # (Auto) Mckean # (Auto) Eos # (Auto) Seg Neutrophils % Seg Neuts % (Manual) Lymphocytes % (Manual) Eosinophils % (Manual) Seg Neutrophils # Seg Neutrophils # Man Lymphocytes # (Manual) Eosinophils # (Manual) PT Activated Coag Time Heparin Anti-Xa Level < 0.10 L ABG pH 7.119 L* 7.304 L ABG pO2 56.1 L 103.5 H ABG HCO3 18.4 L 14.4 L ABG O2 Saturation 80.7 L ABG Base Excess -11.4 L -10.6 L ABG Hemoglobin 13.5 L Oxyhemoglobin 79.2 L Sodium Potassium Chloride Carbon Dioxide BUN Creatinine Glucose POC Glucose Lactic Acid Calcium Phosphorus Magnesium AST ALT Alkaline Phosphatase Total Creatine Kinase CK-MB (CK-2) CK-MB (CK-2) Rel Index Troponin T Total Protein Albumin Triglycerides Urine Blood Urine WBC (Auto) Urine Creatinine 04/18/22 04/18/22 04/18/22 13:13 16:00 16:00 WBC RBC Hgb Hct Plt Count Lymph % (Auto) Mckean % (Auto) Eos % (Auto) Lymph # (Auto) Mckean # (Auto) Eos # (Auto) Seg Neutrophils % Seg Neuts % (Manual) Lymphocytes % (Manual) Eosinophils % (Manual) Seg Neutrophils # Seg Neutrophils # Man Lymphocytes # (Manual) Eosinophils # (Manual) PT Activated Coag Time Heparin Anti-Xa Level ABG pH ABG pO2 ABG HCO3 ABG O2 Saturation ABG Base Excess ABG Hemoglobin Oxyhemoglobin Sodium Potassium Chloride Carbon Dioxide BUN Creatinine Glucose POC Glucose 334 H Lactic Acid 7.00 H* Calcium Phosphorus 5.70 H Magnesium 1.30 L AST ALT Alkaline Phosphatase Total Creatine Kinase 969 H CK-MB (CK-2) 55.9 H CK-MB (CK-2) Rel Index 5.7 H Troponin T 1.580 H* D Total Protein Albumin Triglycerides Urine Blood Urine WBC (Auto) Urine Creatinine 04/18/22 04/18/22 04/18/22 16:00 18:00 18:01 WBC RBC Hgb Hct Plt Count Lymph % (Auto) Mckean % (Auto) Eos % (Auto) Lymph # (Auto) Mckean # (Auto) Eos # (Auto) Seg Neutrophils % Seg Neuts % (Manual) Lymphocytes % (Manual) Eosinophils % (Manual) Seg Neutrophils # Seg Neutrophils # Man Lymphocytes # (Manual) Eosinophils # (Manual) PT Activated Coag Time Heparin Anti-Xa Level < 0.10 L ABG pH ABG pO2 ABG HCO3 ABG O2 Saturation ABG Base Excess ABG Hemoglobin Oxyhemoglobin Sodium 136 L Potassium 6.3 H* D Chloride 97.6 L Carbon Dioxide 18 L BUN 34 H Creatinine 3.5 H Glucose 409 H POC Glucose 397 H Lactic Acid Calcium 6.8 L Phosphorus Magnesium AST ALT Alkaline Phosphatase Total Creatine Kinase CK-MB (CK-2) CK-MB (CK-2) Rel Index Troponin T Total Protein Albumin Triglycerides Urine Blood Urine WBC (Auto) Urine Creatinine 04/18/22 04/18/22 04/18/22 19:13 20:58 21:22 WBC RBC Hgb Hct Plt Count Lymph % (Auto) Mckean % (Auto) Eos % (Auto) Lymph # (Auto) Mckean # (Auto) Eos # (Auto) Seg Neutrophils % Seg Neuts % (Manual) Lymphocytes % (Manual) Eosinophils % (Manual) Seg Neutrophils # Seg Neutrophils # Man Lymphocytes # (Manual) Eosinophils # (Manual) PT Activated Coag Time Heparin Anti-Xa Level ABG pH 7.502 H ABG pO2 144.5 H ABG HCO3 ABG O2 Saturation ABG Base Excess ABG Hemoglobin 12.5 L Oxyhemoglobin Sodium Potassium Chloride Carbon Dioxide BUN Creatinine Glucose POC Glucose 321 H 307 H Lactic Acid Calcium Phosphorus Magnesium AST ALT Alkaline Phosphatase Total Creatine Kinase CK-MB (CK-2) CK-MB (CK-2) Rel Index Troponin T Total Protein Albumin Triglycerides Urine Blood Urine WBC (Auto) Urine Creatinine 04/18/22 04/18/22 04/18/22 21:30 21:30 Unknown WBC RBC Hgb Hct Plt Count Lymph % (Auto) Mckean % (Auto) Eos % (Auto) Lymph # (Auto) Mckean # (Auto) Eos # (Auto) Seg Neutrophils % Seg Neuts % (Manual) 81.0 H Lymphocytes % (Manual) 12.0 L Eosinophils % (Manual) Seg Neutrophils # 9.8 H Seg Neutrophils # Man 8.7 H Lymphocytes # (Manual) Eosinophils # (Manual) PT Activated Coag Time Heparin Anti-Xa Level ABG pH ABG pO2 ABG HCO3 ABG O2 Saturation ABG Base Excess ABG Hemoglobin Oxyhemoglobin Sodium Potassium Chloride 96.6 L Carbon Dioxide BUN 37 H Creatinine 3.6 H Glucose 312 H POC Glucose Lactic Acid 5.50 H* Calcium 7.3 L Phosphorus Magnesium AST ALT Alkaline Phosphatase Total Creatine Kinase CK-MB (CK-2) CK-MB (CK-2) Rel Index Troponin T Total Protein Albumin Triglycerides Urine Blood Urine WBC (Auto) Urine Creatinine 04/18/22 04/18/22 04/19/22 Unknown Unknown 00:35 WBC RBC Hgb Hct Plt Count Lymph % (Auto) Mckean % (Auto) Eos % (Auto) Lymph # (Auto) Mckean # (Auto) Eos # (Auto) Seg Neutrophils % Seg Neuts % (Manual) Lymphocytes % (Manual) Eosinophils % (Manual) Seg Neutrophils # Seg Neutrophils # Man Lymphocytes # (Manual) Eosinophils # (Manual) PT 15.6 H Activated Coag Time Heparin Anti-Xa Level ABG pH ABG pO2 ABG HCO3 ABG O2 Saturation ABG Base Excess ABG Hemoglobin Oxyhemoglobin Sodium Potassium Chloride Carbon Dioxide 18 L BUN 26 H Creatinine 2.5 H D Glucose 330 H POC Glucose Lactic Acid Calcium 7.9 L Phosphorus Magnesium AST 463 H ALT 249 H Alkaline Phosphatase Total Creatine Kinase CK-MB (CK-2) CK-MB (CK-2) Rel Index Troponin T 2.670 H* D Total Protein Albumin 3.3 L Triglycerides Urine Blood Urine WBC (Auto) Urine Creatinine 04/19/22 04/19/22 04/19/22 00:39 02:08 02:08 WBC RBC Hgb Hct Plt Count Lymph % (Auto) Mckean % (Auto) Eos % (Auto) Lymph # (Auto) Mckean # (Auto) Eos # (Auto) Seg Neutrophils % Seg Neuts % (Manual) Lymphocytes % (Manual) Eosinophils % (Manual) Seg Neutrophils # Seg Neutrophils # Man Lymphocytes # (Manual) Eosinophils # (Manual) PT Activated Coag Time Heparin Anti-Xa Level ABG pH ABG pO2 ABG HCO3 ABG O2 Saturation ABG Base Excess ABG Hemoglobin Oxyhemoglobin Sodium Potassium Chloride Carbon Dioxide BUN Creatinine Glucose POC Glucose 263 H Lactic Acid Calcium Phosphorus Magnesium AST ALT Alkaline Phosphatase Total Creatine Kinase CK-MB (CK-2) CK-MB (CK-2) Rel Index Troponin T Total Protein Albumin Triglycerides Urine Blood Large A Urine WBC (Auto) 88.0 H Urine Creatinine 90.9 H 04/19/22 04/19/22 04/19/22 02:08 03:45 03:45 WBC 14.2 H RBC Hgb Hct Plt Count Lymph % (Auto) Mckean % (Auto) Eos % (Auto) Lymph # (Auto) Mckean # (Auto) Eos # (Auto) Seg Neutrophils % Seg Neuts % (Manual) Lymphocytes % (Manual) Eosinophils % (Manual) Seg Neutrophils # Seg Neutrophils # Man Lymphocytes # (Manual) Eosinophils # (Manual) PT Activated Coag Time Heparin Anti-Xa Level 0.18 L ABG pH ABG pO2 ABG HCO3 ABG O2 Saturation ABG Base Excess ABG Hemoglobin Oxyhemoglobin Sodium Potassium Chloride 94.2 L Carbon Dioxide BUN 39 H Creatinine 3.8 H Glucose 243 H POC Glucose Lactic Acid Calcium 7.1 L Phosphorus Magnesium 1.50 L AST 380 H ALT 289 H Alkaline Phosphatase Total Creatine Kinase CK-MB (CK-2) CK-MB (CK-2) Rel Index Troponin T Total Protein 5.4 L Albumin 2.5 L Triglycerides Urine Blood Urine WBC (Auto) Urine Creatinine 04/19/22 04/19/22 04/19/22 03:45 06:01 07:11 WBC RBC Hgb Hct Plt Count Lymph % (Auto) Mckean % (Auto) Eos % (Auto) Lymph # (Auto) Mckean # (Auto) Eos # (Auto) Seg Neutrophils % Seg Neuts % (Manual) Lymphocytes % (Manual) Eosinophils % (Manual) Seg Neutrophils # Seg Neutrophils # Man Lymphocytes # (Manual) Eosinophils # (Manual) PT Activated Coag Time Heparin Anti-Xa Level ABG pH ABG pO2 ABG HCO3 ABG O2 Saturation ABG Base Excess ABG Hemoglobin Oxyhemoglobin Sodium Potassium Chloride Carbon Dioxide BUN Creatinine Glucose POC Glucose 165 H Lactic Acid 4.00 H* Calcium Phosphorus Magnesium AST ALT Alkaline Phosphatase Total Creatine Kinase 3270 H CK-MB (CK-2) 28.5 H CK-MB (CK-2) Rel Index Troponin T 2.980 H* Total Protein Albumin Triglycerides Urine Blood Urine WBC (Auto) Urine Creatinine 04/19/22 04/19/22 04/19/22 07:50 08:50 12:49 WBC RBC Hgb Hct Plt Count Lymph % (Auto) Mckean % (Auto) Eos % (Auto) Lymph # (Auto) Mckean # (Auto) Eos # (Auto) Seg Neutrophils % Seg Neuts % (Manual) Lymphocytes % (Manual) Eosinophils % (Manual) Seg Neutrophils # Seg Neutrophils # Man Lymphocytes # (Manual) Eosinophils # (Manual) PT Activated Coag Time Heparin Anti-Xa Level ABG pH 7.471 H ABG pO2 58.9 L ABG HCO3 27.1 H ABG O2 Saturation 91.7 L ABG Base Excess 3.4 H ABG Hemoglobin 12.2 L Oxyhemoglobin 90.0 L Sodium Potassium Chloride Carbon Dioxide BUN Creatinine Glucose POC Glucose 331 H Lactic Acid 3.40 H* Calcium Phosphorus Magnesium AST ALT Alkaline Phosphatase Total Creatine Kinase CK-MB (CK-2) CK-MB (CK-2) Rel Index Troponin T Total Protein Albumin Triglycerides Urine Blood Urine WBC (Auto) Urine Creatinine 04/19/22 04/19/22 04/19/22 16:15 19:25 21:17 WBC RBC Hgb Hct Plt Count Lymph % (Auto) Mckean % (Auto) Eos % (Auto) Lymph # (Auto) Mckean # (Auto) Eos # (Auto) Seg Neutrophils % Seg Neuts % (Manual) Lymphocytes % (Manual) Eosinophils % (Manual) Seg Neutrophils # Seg Neutrophils # Man Lymphocytes # (Manual) Eosinophils # (Manual) PT Activated Coag Time Heparin Anti-Xa Level ABG pH ABG pO2 ABG HCO3 ABG O2 Saturation ABG Base Excess ABG Hemoglobin Oxyhemoglobin Sodium Potassium Chloride Carbon Dioxide BUN Creatinine Glucose POC Glucose 304 H 251 H Lactic Acid 4.00 H* Calcium Phosphorus Magnesium AST ALT Alkaline Phosphatase Total Creatine Kinase CK-MB (CK-2) CK-MB (CK-2) Rel Index Troponin T Total Protein Albumin Triglycerides Urine Blood Urine WBC (Auto) Urine Creatinine 04/19/22 04/20/22 04/20/22 23:00 04:12 04:12 WBC 12.2 H RBC Hgb 11.6 L Hct 35.3 L Plt Count Lymph % (Auto) Mckean % (Auto) Eos % (Auto) Lymph # (Auto) Mckean # (Auto) Eos # (Auto) Seg Neutrophils % Seg Neuts % (Manual) Lymphocytes % (Manual) Eosinophils % (Manual) Seg Neutrophils # Seg Neutrophils # Man Lymphocytes # (Manual) Eosinophils # (Manual) PT Activated Coag Time Heparin Anti-Xa Level 0.15 L ABG pH ABG pO2 ABG HCO3 ABG O2 Saturation ABG Base Excess ABG Hemoglobin Oxyhemoglobin Sodium Potassium Chloride Carbon Dioxide BUN Creatinine Glucose POC Glucose 236 H Lactic Acid Calcium Phosphorus Magnesium AST ALT Alkaline Phosphatase Total Creatine Kinase CK-MB (CK-2) CK-MB (CK-2) Rel Index Troponin T Total Protein Albumin Triglycerides Urine Blood Urine WBC (Auto) Urine Creatinine 04/20/22 04/20/22 04/20/22 04:12 04:12 09:10 WBC RBC Hgb Hct Plt Count Lymph % (Auto) Mckean % (Auto) Eos % (Auto) Lymph # (Auto) Mckean # (Auto) Eos # (Auto) Seg Neutrophils % Seg Neuts % (Manual) Lymphocytes % (Manual) Eosinophils % (Manual) Seg Neutrophils # Seg Neutrophils # Man Lymphocytes # (Manual) Eosinophils # (Manual) PT Activated Coag Time Heparin Anti-Xa Level ABG pH ABG pO2 ABG HCO3 ABG O2 Saturation ABG Base Excess ABG Hemoglobin Oxyhemoglobin Sodium 133 L Potassium 3.5 L Chloride 91.9 L Carbon Dioxide BUN 44 H Creatinine 4.6 H Glucose 263 H POC Glucose Lactic Acid 2.80 H* Calcium 7.2 L Phosphorus Magnesium AST 553 H ALT 471 H Alkaline Phosphatase Total Creatine Kinase 3019 H CK-MB (CK-2) CK-MB (CK-2) Rel Index Troponin T Total Protein 5.7 L Albumin 2.4 L Triglycerides 254 H Urine Blood Urine WBC (Auto) Urine Creatinine 04/20/22 04/20/22 04/20/22 09:31 11:18 18:08 WBC RBC Hgb Hct Plt Count Lymph % (Auto) Mckean % (Auto) Eos % (Auto) Lymph # (Auto) Mckean # (Auto) Eos # (Auto) Seg Neutrophils % Seg Neuts % (Manual) Lymphocytes % (Manual) Eosinophils % (Manual) Seg Neutrophils # Seg Neutrophils # Man Lymphocytes # (Manual) Eosinophils # (Manual) PT Activated Coag Time Heparin Anti-Xa Level ABG pH 7.512 H ABG pO2 ABG HCO3 26.2 H ABG O2 Saturation ABG Base Excess 3.2 H ABG Hemoglobin 9.0 L Oxyhemoglobin Sodium Potassium Chloride Carbon Dioxide BUN Creatinine Glucose POC Glucose 285 H 293 H Lactic Acid Calcium Phosphorus Magnesium AST ALT Alkaline Phosphatase Total Creatine Kinase CK-MB (CK-2) CK-MB (CK-2) Rel Index Troponin T Total Protein Albumin Triglycerides Urine Blood Urine WBC (Auto) Urine Creatinine 04/20/22 04/21/22 04/21/22 21:40 00:10 04:00 WBC RBC Hgb Hct Plt Count Lymph % (Auto) Mckean % (Auto) Eos % (Auto) Lymph # (Auto) Mckean # (Auto) Eos # (Auto) Seg Neutrophils % Seg Neuts % (Manual) Lymphocytes % (Manual) Eosinophils % (Manual) Seg Neutrophils # Seg Neutrophils # Man Lymphocytes # (Manual) Eosinophils # (Manual) PT Activated Coag Time Heparin Anti-Xa Level 0.16 L ABG pH ABG pO2 59.4 L ABG HCO3 29.7 H ABG O2 Saturation 90.1 L ABG Base Excess 3.1 H ABG Hemoglobin 11.6 L Oxyhemoglobin 88.2 L Sodium Potassium Chloride Carbon Dioxide BUN Creatinine Glucose POC Glucose 290 H Lactic Acid Calcium Phosphorus Magnesium AST ALT Alkaline Phosphatase Total Creatine Kinase CK-MB (CK-2) CK-MB (CK-2) Rel Index Troponin T Total Protein Albumin Triglycerides Urine Blood Urine WBC (Auto) Urine Creatinine 04/21/22 04/21/22 04/21/22 04:30 04:30 05:57 WBC 17.9 H RBC Hgb 11.7 L Hct 35.1 L Plt Count Lymph % (Auto) Mckean % (Auto) Eos % (Auto) Lymph # (Auto) Mckean # (Auto) Eos # (Auto) Seg Neutrophils % Seg Neuts % (Manual) Lymphocytes % (Manual) Eosinophils % (Manual) Seg Neutrophils # Seg Neutrophils # Man Lymphocytes # (Manual) Eosinophils # (Manual) PT Activated Coag Time Heparin Anti-Xa Level ABG pH ABG pO2 ABG HCO3 ABG O2 Saturation ABG Base Excess ABG Hemoglobin Oxyhemoglobin Sodium Potassium Chloride 95.7 L Carbon Dioxide BUN 45 H Creatinine 4.2 H Glucose 309 H POC Glucose 265 H Lactic Acid Calcium 7.4 L Phosphorus 5.60 H D Magnesium 2.50 H AST 217 H ALT 376 H Alkaline Phosphatase Total Creatine Kinase CK-MB (CK-2) CK-MB (CK-2) Rel Index Troponin T Total Protein Albumin 2.8 L Triglycerides Urine Blood Urine WBC (Auto) Urine Creatinine 04/21/22 04/21/22 04/21/22 12:14 13:45 18:10 WBC RBC Hgb Hct Plt Count Lymph % (Auto) Mckean % (Auto) Eos % (Auto) Lymph # (Auto) Mckean # (Auto) Eos # (Auto) Seg Neutrophils % Seg Neuts % (Manual) Lymphocytes % (Manual) Eosinophils % (Manual) Seg Neutrophils # Seg Neutrophils # Man Lymphocytes # (Manual) Eosinophils # (Manual) PT Activated Coag Time 179 H Heparin Anti-Xa Level ABG pH ABG pO2 ABG HCO3 ABG O2 Saturation ABG Base Excess ABG Hemoglobin Oxyhemoglobin Sodium Potassium Chloride Carbon Dioxide BUN Creatinine Glucose POC Glucose 248 H 240 H Lactic Acid Calcium Phosphorus Magnesium AST ALT Alkaline Phosphatase Total Creatine Kinase CK-MB (CK-2) CK-MB (CK-2) Rel Index Troponin T Total Protein Albumin Triglycerides Urine Blood Urine WBC (Auto) Urine Creatinine 04/22/22 04/22/22 04/22/22 00:09 04:00 04:33 WBC 12.4 H RBC 3.34 L Hgb 9.8 L Hct 29.7 L Plt Count 138 L Lymph % (Auto) Mckean % (Auto) Eos % (Auto) Lymph # (Auto) Mckean # (Auto) Eos # (Auto) Seg Neutrophils % Seg Neuts % (Manual) Lymphocytes % (Manual) Eosinophils % (Manual) Seg Neutrophils # Seg Neutrophils # Man Lymphocytes # (Manual) Eosinophils # (Manual) PT Activated Coag Time Heparin Anti-Xa Level ABG pH ABG pO2 ABG HCO3 ABG O2 Saturation ABG Base Excess ABG Hemoglobin Oxyhemoglobin Sodium Potassium Chloride Carbon Dioxide BUN 40 H Creatinine 2.9 H Glucose 269 H POC Glucose 248 H Lactic Acid Calcium 7.3 L Phosphorus Magnesium AST ALT Alkaline Phosphatase Total Creatine Kinase 973 H CK-MB (CK-2) CK-MB (CK-2) Rel Index Troponin T Total Protein Albumin Triglycerides Urine Blood Urine WBC (Auto) Urine Creatinine 04/22/22 04/22/22 04/22/22 10:13 11:51 18:02 WBC RBC Hgb Hct Plt Count Lymph % (Auto) Mckean % (Auto) Eos % (Auto) Lymph # (Auto) Mckean # (Auto) Eos # (Auto) Seg Neutrophils % Seg Neuts % (Manual) Lymphocytes % (Manual) Eosinophils % (Manual) Seg Neutrophils # Seg Neutrophils # Man Lymphocytes # (Manual) Eosinophils # (Manual) PT Activated Coag Time Heparin Anti-Xa Level ABG pH ABG pO2 56.1 L ABG HCO3 28.4 H ABG O2 Saturation 89.3 L ABG Base Excess ABG Hemoglobin 9.8 L Oxyhemoglobin 87.7 L Sodium Potassium Chloride Carbon Dioxide BUN Creatinine Glucose POC Glucose 302 H 266 H Lactic Acid Calcium Phosphorus Magnesium AST ALT Alkaline Phosphatase Total Creatine Kinase CK-MB (CK-2) CK-MB (CK-2) Rel Index Troponin T Total Protein Albumin Triglycerides Urine Blood Urine WBC (Auto) Urine Creatinine 04/22/22 04/22/22 04/23/22 21:18 23:30 04:19 WBC RBC 3.34 L Hgb 9.9 L Hct 29.9 L Plt Count Lymph % (Auto) Mckean % (Auto) Eos % (Auto) Lymph # (Auto) Mckean # (Auto) Eos # (Auto) Seg Neutrophils % Seg Neuts % (Manual) 74.0 H Lymphocytes % (Manual) 10.0 L Eosinophils % (Manual) 7.0 H Seg Neutrophils # Seg Neutrophils # Man 8.0 H Lymphocytes # (Manual) 1.1 L Eosinophils # (Manual) 0.8 H PT Activated Coag Time Heparin Anti-Xa Level ABG pH ABG pO2 ABG HCO3 ABG O2 Saturation ABG Base Excess ABG Hemoglobin Oxyhemoglobin Sodium Potassium Chloride Carbon Dioxide BUN Creatinine Glucose POC Glucose 299 H 299 H Lactic Acid Calcium Phosphorus Magnesium AST ALT Alkaline Phosphatase Total Creatine Kinase CK-MB (CK-2) CK-MB (CK-2) Rel Index Troponin T Total Protein Albumin Triglycerides Urine Blood Urine WBC (Auto) Urine Creatinine 08/08/0404/23/22 04/23/22 04:19 05:24 11:20 WBC RBC Hgb Hct Plt Count Lymph % (Auto) Mckean % (Auto) Eos % (Auto) Lymph # (Auto) Mckean # (Auto) Eos # (Auto) Seg Neutrophils % Seg Neuts % (Manual) Lymphocytes % (Manual) Eosinophils % (Manual) Seg Neutrophils # Seg Neutrophils # Man Lymphocytes # (Manual) Eosinophils # (Manual) PT Activated Coag Time Heparin Anti-Xa Level ABG pH ABG pO2 ABG HCO3 ABG O2 Saturation ABG Base Excess ABG Hemoglobin Oxyhemoglobin Sodium Potassium 3.5 L Chloride Carbon Dioxide BUN 30 H Creatinine 2.3 H Glucose 289 H POC Glucose 271 H 302 H Lactic Acid Calcium 7.8 L Phosphorus Magnesium AST 46 H ALT 158 H Alkaline Phosphatase 138 H Total Creatine Kinase CK-MB (CK-2) CK-MB (CK-2) Rel Index Troponin T Total Protein 6.2 L Albumin 2.6 L Triglycerides 230 H Urine Blood Urine WBC (Auto) Urine Creatinine 04/23/22 04/23/22 04/23/22 18:07 18:20 21:14 WBC RBC Hgb Hct Plt Count Lymph % (Auto) Mckean % (Auto) Eos % (Auto) Lymph # (Auto) Mckean # (Auto) Eos # (Auto) Seg Neutrophils % Seg Neuts % (Manual) Lymphocytes % (Manual) Eosinophils % (Manual) Seg Neutrophils # Seg Neutrophils # Man Lymphocytes # (Manual) Eosinophils # (Manual) PT Activated Coag Time Heparin Anti-Xa Level ABG pH ABG pO2 ABG HCO3 31.6 H ABG O2 Saturation ABG Base Excess 4.8 H ABG Hemoglobin 18.3 H Oxyhemoglobin 94.8 L Sodium Potassium Chloride Carbon Dioxide BUN Creatinine Glucose POC Glucose 228 H 175 H Lactic Acid Calcium Phosphorus Magnesium AST ALT Alkaline Phosphatase Total Creatine Kinase CK-MB (CK-2) CK-MB (CK-2) Rel Index Troponin T Total Protein Albumin Triglycerides Urine Blood Urine WBC (Auto) Urine Creatinine 04/23/22 04/24/22 04/24/22 23:24 04:35 04:47 WBC RBC Hgb Hct Plt Count Lymph % (Auto) Mckean % (Auto) Eos % (Auto) Lymph # (Auto) Mckean # (Auto) Eos # (Auto) Seg Neutrophils % Seg Neuts % (Manual) Lymphocytes % (Manual) Eosinophils % (Manual) Seg Neutrophils # Seg Neutrophils # Man Lymphocytes # (Manual) Eosinophils # (Manual) PT Activated Coag Time Heparin Anti-Xa Level ABG pH ABG pO2 ABG HCO3 31.5 H ABG O2 Saturation ABG Base Excess 6.1 H ABG Hemoglobin 10.3 L Oxyhemoglobin Sodium Potassium Chloride Carbon Dioxide BUN Creatinine Glucose POC Glucose 168 H 177 H Lactic Acid Calcium Phosphorus Magnesium AST ALT Alkaline Phosphatase Total Creatine Kinase CK-MB (CK-2) CK-MB (CK-2) Rel Index Troponin T Total Protein Albumin Triglycerides Urine Blood Urine WBC (Auto) Urine Creatinine 04/24/22 04/24/22 06:00 06:00 WBC 14.0 H RBC 3.57 L Hgb 10.1 L Hct 31.9 L Plt Count Lymph % (Auto) 4.7 L Mckean % (Auto) 8.8 H Eos % (Auto) 6.0 H Lymph # (Auto) 0.7 L Mckean # (Auto) 1.2 H Eos # (Auto) 0.8 H Seg Neutrophils % 80.5 H Seg Neuts % (Manual) Lymphocytes % (Manual) Eosinophils % (Manual) Seg Neutrophils # 11.3 H Seg Neutrophils # Man Lymphocytes # (Manual) Eosinophils # (Manual) PT Activated Coag Time Heparin Anti-Xa Level ABG pH ABG pO2 ABG HCO3 ABG O2 Saturation ABG Base Excess ABG Hemoglobin Oxyhemoglobin Sodium Potassium 3.4 L Chloride Carbon Dioxide BUN 25 H Creatinine 1.8 H Glucose 218 H POC Glucose Lactic Acid Calcium 8.2 L Phosphorus Magnesium AST ALT 99 H Alkaline Phosphatase 141 H Total Creatine Kinase CK-MB (CK-2) CK-MB (CK-2) Rel Index Troponin T Total Protein 6.2 L Albumin 2.2 L Triglycerides Urine Blood Urine WBC (Auto) Urine Creatinine Allied health notes reviewed: nursing
--- NOTE | 2022-04-24 10:11 | Progress Note ---
<MOHIT MARTE - Last Filed: 04/24/22 10:07> Assessment and Plan Assessment and plan: This is a 62 year old male with OHS, HTN, DM, metabolic syndrome, s/p vfib cardiac arrest, Septic shock, aspiration pneumonia, transaminitis, VINCENT with acute metabolic encephalopathy Neuro: Acute metabolic encephalopathy, facial contusions s/p fall -CT head showed no focal intra-axial mass, hemorrhage, hydrocephalus or acute or large territorial infarct -Sedated with propofol and fentanyl -wean propofol as tolerated -RASS goal 0 to -1 -Seroquel started -EKG to monitor qTc -Reorientation as needed -Maintain sleep-wake cycle -Neurology consulted, appreciate recommendations -As needed analgesia Cardiac: A. fib RVR , s/p V. fib cardiac arrest, ? cardiogenic shock, h/o atrial fibrillation s/p cardioversion, HTN -Cardiology consulted, appreciate recommendations -S/p V. fib cardiac arrest -S/p dopamine drip and dobutamine drip which resolved tachycardia -Amio gtt changed to PO -s/p IV heparin -Blood pressure monitoring per protocol -s/p Vasopressor support with levophed, epinephrine, vasopressin -Dobutamine gtt -Echocardiogram shows EF of 15 to 20% -Left heart cath showed severe nonischemic cardiomyopathy with patent coronary arteries, which per cardiology presumably resulted in a primary cardiac arrest. -Per cardio: When blood pressure tolerates, he will need optimal medical therapy for afterload, beta-blockers, and long-term oral anticoagulation. Eventually from a cardiac standpoint, will need predischarge device therapy for secondary prevention of SCD, once he is off the vent and clinical status is optimized. Plan to try digoxin today Respiratory: Acute hypoxic respiratory failure, h/o OHS -CCM consulted, appreciate recommendations -Intubated on 04/17 with 7.0 OETT @ 22 at the lips, reintubated 04/23 -A.m. vent settings: AC tidal volume 500, rate 16, PEEP 8, FiO2 45% -See RT notes for titration -Retintubated this afternoon -Chest US shows no pleural effusion -A.m. ABG and CXR noted -VAP bundle -SPO2 monitoring GI: Transaminitis (resolving), moderate protein calorie malnutrition -24 hours + 338 mL -PPI -NTR consulted for tube feedings -BR: Senokot -Trend LFTs : Acute kidney injury likely secondary to vasomotor nephropathy (improving) -Nephrology consulted, appreciate recommendations -Monitor intake and output -Renally dose medications -Avoid nephrotoxic medications -s/p bicarb gtt and MIVF -Renal ultrasound shows distended gallbladder, no cholecystic fluid -Trend BMP ID: Aspiration pneumonia, Sepsis, lactic acidosis -CTA chest shows extensive bilateral airspace disease present dependent portions and greater in the upper lobes, given distribution could be related to aspiration -Admitted with hypotension, lactic acidosis, acute kidney injury -Antibiotic therapy with Levaquin -f/u blood culture -Monitor WBC and temperature curve Endo: h/o DM -Avoid hypoglycemia -SSI -Accu-Cheks q. 6 -Long-acting insulin, titrate as needed Heme: Leukocytosis, elevated D-dimer -CTA chest shows no pulmonary embolism -Trend CBC -Transfuse for hemoglobin less than 7 -Bilateral Doppler ultrasound showed no DVT -SCDs to BLE while in bed The high probability of a clinically significant, sudden or life threatening deterioration of the [multiple] system(s) required my full and direct attention, intervention and personal management. The aggregate critical care time was [60] minutes. This time is in addition to time spent performing reported procedures but includes the following: [x] Data Review and interpretation [x] Patient assessment and monitoring of vital signs [x] Documentation [x] Medication orders and management History Interval history: This is is a 62-year-old male with OHS, HTN, DM, metabolic syndrome presents the emergency department on 04/17 via EMS s/p cardiac arrest. As per family patient presented to [facility] for evaluation for chest pain and subsequently went to the restroom where he was found unresponsive and EMS arrived and noted the patient had a V. fib arrest and ACLS was initiated and patient was transported to [facility] for further evaluation. Patient was noted to have aspirated into the oropharynx with suspected aspiration pneumonia complicated by acute hypoxic respiratory failure, septic shock and cardiac arrest. Patient was initiated on the sepsis protocol, IV vasopressor support and admitted to the ICU with consults to [facility], nephrology and cardiology. Hospital Course to Date: 04/18: Severely acidotic this am, now on bcarb gtt. On high dose pressors- Levophed and Vaso. Afib in control rate on the monitor, on Amiodarone and heparin gtt per protocol. Cardiology is following. Patient remains afebrile and leukocytosis improved this am. Now with worsen renal function and low UOP. Patient's EF is 25 to 30%, Dobutamine gtt initiated. Continue current IV abx, continue to trend troponin and lactic acid. Nephrology also consulted for further recs. BLE swelling noted, BLE doppler ordered to r/o DVT. 04/19: Agitation with low SPO2 overnight, sedation increased. This am ABG with worsen hypoxia on 40% Fio2, SPO2 at 90% this am. Fio2 increased to 50%, SPO2 improved above 92%. Remains on multiple pressors and bcarb gtt. Now on dopamine gtt, in Afib with RVR on the monitor. Still on Amiodarone and heparin gtts. Echo noted, EF 15 to 20%. Cardiology is following. With worsen renal function, however making urine this am. No indication for [employer] at this per Nephro. Will continue to monitor. Monitor and replace electrolytes as needed 04/20: Nephrology spoke to at bedside re HD, cardiology will proceed with LHC if patient is to recieve HD post procedure, vent changes per [facility], Sedated with fentanyl and propofol with heparin and amio gtt infusing. 04/21: LHC today. Nephrology will continue IVF and if renal function worsens then will proceed HD with consent from family. Patient became hypoxic with FiO2 at 40% yesterday evening and is currently at 65%. 04/22: Patient was started on vasopressin IV fluids yesterday and his creatinine decreased from 4.2 to 2.9. Patient severely agitated while on propofol and fentanyl. Started low-dose Seroquel and started to wean propofol as tolerated. Patient does follow commands today. Increase in lantus. IV fluids decreased, started on dobutamine per [facility] and wean vasopressin for target MAP of 65-70 and SBP greater than 110 04/23: This morning patient being extremely hypertensive with SBP into 200s and given metoprolol. Rn asked to wean propofol as tolerated. Dobutamine decreased to 2.5. Cr improved. US chest completed and showed no pleural effusions. This afternoon alerted by RN that RT believes pt bite through his tube and anesthesia was called to bedside for tube exchange. Decision was made to extubate and reintubate the patient. CXR ordered. 04/24: Patient placed on CPAP trial. Renal numbers look better today. Cardiology would like to try digoxin. No acute events reported overnight. Hospitalist Physical - Constitutional Vitals: Temp Pulse Resp BP Pulse Ox 99.1 F 104 H 17 127/79 95 04/24/22 08:00 04/24/22 09:00 04/24/22 09:00 04/24/22 09:00 04/24/22 09:32 General appearance: Present: no acute distress, other (Intubated and Sedated) - EENT Eyes: Present: PERRL, EOM intact ENT: hearing decreased - Neck Neck: Present: normal ROM - Respiratory Respiratory effort: normal Respiratory: bilateral: diminished, rhonchi - Cardiovascular Rhythm: irregularly irregular Heart Sounds: Present: S1 & S2. Absent: systolic murmur, diastolic murmur - Extremities Extremities: no ischemia, pulses intact Extremity abnormal: edema Peripheral Pulses: within normal limits - Abdominal General gastrointestinal: soft, non-tender, non-distended, normal bowel sounds - Integumentary Integumentary: Present: warm, dry - Neurologic Neurologic: other (follows commands, intact cough/gag) - Allied Health Allied health notes reviewed: nursing, RT, social work HEART Score - HEART Score Troponin: Troponin T 2.980 ng/mL (0.00-0.029) H* 04/19/22 07:11 Results - Labs CBC & Chem 7: 04/24/22 06:00 04/24/22 06:00 Labs: Laboratory Last Values WBC 14.0 K/mm3 (4.5-11.0) H 04/24/22 06:00 RBC 3.57 M/mm3 (3.65-5.03) L 04/24/22 06:00 Hgb 10.1 gm/dl (11.8-15.2) L 04/24/22 06:00 Hct 31.9 % (35.5-45.6) L 04/24/22 06:00 MCV 89 fl (84-94) 04/24/22 06:00 MCH 28 pg (28-32) 04/24/22 06:00 MCHC 32 % (32-34) 04/24/22 06:00 RDW 14.6 % (13.2-15.2) 04/24/22 06:00 Plt Count 210 K/mm3 (140-440) 04/24/22 06:00 Lymph % (Auto) 4.7 % (13.4-35.0) L 04/24/22 06:00 [place] % (Auto) 8.8 % (0.0-7.3) H 04/24/22 06:00 Eos % (Auto) 6.0 % (0.0-4.3) H 04/24/22 06:00 Baso % (Auto) 0.0 % (0.0-1.8) 04/24/22 06:00 Lymph # (Auto) 0.7 K/mm3 (1.2-5.4) L 04/24/22 06:00 [place] # (Auto) 1.2 K/mm3 (0.0-0.8) H 04/24/22 06:00 Eos # (Auto) 0.8 K/mm3 (0.0-0.4) H 04/24/22 06:00 Baso # (Auto) 0.0 K/mm3 (0.0-0.1) 04/24/22 06:00 Add Manual Diff Complete 04/23/22 04:19 Total Counted 100 04/23/22 04:19 Seg Neutrophils % 80.5 % (40.0-70.0) H 04/24/22 06:00 Seg Neuts % (Manual) 74.0 % (40.0-70.0) H 04/23/22 04:19 Band Neutrophils % 2.0 % 04/23/22 04:19 Lymphocytes % (Manual) 10.0 % (13.4-35.0) L 04/23/22 04:19 Reactive Lymphs % (Man) 0 % 04/23/22 04:19 Monocytes % (Manual) 7.0 % (0.0-7.3) 04/23/22 04:19 Eosinophils % (Manual) 7.0 % (0.0-4.3) H 04/23/22 04:19 Basophils % (Manual) 0 % (0.0-1.8) 04/23/22 04:19 Metamyelocytes % 0 % 04/23/22 04:19 Myelocytes % 0 % 04/23/22 04:19 Promyelocytes % 0 % 04/23/22 04:19 Blast Cells % 0 % 04/23/22 04:19 Nucleated RBC % Not Reportable 04/23/22 04:19 Seg Neutrophils # 11.3 K/mm3 (1.8-7.7) H 04/24/22 06:00 Seg Neutrophils # Man 8.0 K/mm3 (1.8-7.7) H 04/23/22 04:19 Band Neutrophils # 0.2 K/mm3 04/23/22 04:19 Lymphocytes # (Manual) 1.1 K/mm3 (1.2-5.4) L 04/23/22 04:19 Abs React Lymphs (Man) 0.0 K/mm3 04/23/22 04:19 Monocytes # (Manual) 0.8 K/mm3 (0.0-0.8) 04/23/22 04:19 Eosinophils # (Manual) 0.8 K/mm3 (0.0-0.4) H 04/23/22 04:19 Basophils # (Manual) 0.0 K/mm3 (0.0-0.1) 04/23/22 04:19 Metamyelocytes # 0.0 K/mm3 04/23/22 04:19 Myelocytes # 0.0 K/mm3 04/23/22 04:19 Promyelocytes # 0.0 K/mm3 04/23/22 04:19 Blast Cells # 0.0 K/mm3 04/23/22 04:19 WBC Morphology Not Reportable 04/23/22 04:19 Hypersegmented Neuts Not Reportable 04/23/22 04:19 Hyposegmented Neuts Not Reportable 04/23/22 04:19 Hypogranular Neuts Not Reportable 04/23/22 04:19 Smudge Cells Not Reportable 04/23/22 04:19 Toxic Granulation Not Reportable 04/23/22 04:19 Toxic Vacuolation Not Reportable 04/23/22 04:19 Dohle Bodies Not Reportable 04/23/22 04:19 Pelger-Huet Anomaly Not Reportable 04/23/22 04:19 Regla Rods Not Reportable 04/23/22 04:19 Platelet Estimate Consistent w auto 04/23/22 04:19 Clumped Platelets Not Reportable 04/23/22 04:19 Plt Clumps, EDTA Not Reportable 04/23/22 04:19 Large Platelets Not Reportable 04/23/22 04:19 Giant Platelets Not Reportable 04/23/22 04:19 Platelet Satelliting Not Reportable 04/23/22 04:19 Plt Morphology Comment Not Reportable 04/23/22 04:19 RBC Morphology Not Reportable 04/23/22 04:19 Dimorphic RBCs Not Reportable 04/23/22 04:19 Polychromasia Not Reportable 04/23/22 04:19 Hypochromasia Not Reportable 04/23/22 04:19 Poikilocytosis Not Reportable 04/23/22 04:19 Anisocytosis Not Reportable 04/23/22 04:19 Microcytosis Not Reportable 04/23/22 04:19 Macrocytosis Not Reportable 04/23/22 04:19 Spherocytes Not Reportable 04/23/22 04:19 Pappenheimer Bodies Not Reportable 04/23/22 04:19 Sickle Cells Not Reportable 04/23/22 04:19 Target Cells Not Reportable 04/23/22 04:19 Tear Drop Cells Not Reportable 04/23/22 04:19 Ovalocytes Not Reportable 04/23/22 04:19 Helmet Cells Not Reportable 04/23/22 04:19 [place] Bodies Not Reportable 04/23/22 04:19 [place] Rings Not Reportable 04/23/22 04:19 [place] Cells Not Reportable 04/23/22 04:19 Bite Cells Not Reportable 04/23/22 04:19 Crenated Cell Not Reportable 04/23/22 04:19 Elliptocytes Not Reportable 04/23/22 04:19 Acanthocytes (Spur) Not Reportable 04/23/22 04:19 Rouleaux Not Reportable 04/23/22 04:19 Hemoglobin C Crystals Not Reportable 04/23/22 04:19 Schistocytes Not Reportable 04/23/22 04:19 Malaria parasites Not Reportable 04/23/22 04:19 [place] Bodies Not Reportable 04/23/22 04:19 Hem Pathologist Commnt No 04/23/22 04:19 PT 15.6 Sec. (12.2-14.9) H 04/18/22 Unknown INR 1.08 (0.87-1.13) 04/18/22 Unknown APTT 28.6 Sec. (24.2-36.6) 04/18/22 Unknown Activated Coag Time 179 (74-137) H 04/21/22 12:14 Heparin Anti-Xa Level 0.16 U.I./ml (0.3-0.7) L 04/21/22 04:00 ABG pH 7.417 pH Units (7.350-7.450) 04/24/22 04:35 ABG pCO2 50.1 mm Hg 04/24/22 04:35 ABG pO2 83.4 mm Hg (80.0-90.0) 04/24/22 04:35 ABG HCO3 31.5 mmol/L (20.0-26.0) H 04/24/22 04:35 ABG O2 Saturation 96.9 % (95.0-99.0) 04/24/22 04:35 ABG O2 Content 13.9 (0.0-44) 04/24/22 04:35 ABG Base Excess 6.1 mmol/L (-2.0-3.0) H 04/24/22 04:35 ABG Hemoglobin 10.3 gm/dl (14.0-18.0) L 04/24/22 04:35 ABG Carboxyhemoglobin 1.4 % (0.0-5.0) 04/24/22 04:35 ABG Methemoglobin 0.5 % (0.0-1.5) 04/24/22 04:35 Oxyhemoglobin 95.1 % (95.0-99.0) 04/24/22 04:35 FiO2 40 % 04/24/22 04:35 Sodium 145 mmol/L (137-145) 04/24/22 06:00 Potassium 3.4 mmol/L (3.6-5.0) L 04/24/22 06:00 Chloride 105.8 mmol/L (98-107) 04/24/22 06:00 Carbon Dioxide 29 mmol/L (22-30) 04/24/22 06:00 Anion Gap 14 mmol/L 04/24/22 06:00 BUN 25 mg/dL (9-20) H 04/24/22 06:00 Creatinine 1.8 mg/dL (0.8-1.3) H 04/24/22 06:00 Estimated GFR 46 ml/min 04/24/22 06:00 BUN/Creatinine Ratio 14 % 04/24/22 06:00 Glucose 218 mg/dL (75-100) H 04/24/22 06:00 POC Glucose 177 mg/dL (70-105) H 04/24/22 04:47 Lactic Acid 1.90 mmol/L (0.7-2.0) 04/21/22 04:20 Calcium 8.2 mg/dL (8.4-10.2) L 04/24/22 06:00 Phosphorus 2.60 mg/dL (2.5-4.5) 04/23/22 04:19 Magnesium 2.20 mg/dL (1.7-2.3) 04/23/22 04:19 Total Bilirubin 0.70 mg/dL (0.1-1.2) 04/24/22 06:00 AST 35 units/L (5-40) 04/24/22 06:00 ALT 99 units/L (7-56) H 04/24/22 06:00 Alkaline Phosphatase 141 units/L (35-129) H 04/24/22 06:00 Total Creatine Kinase 973 units/L (55-170) H 04/22/22 04:00 CK-MB (CK-2) 28.5 ng/mL (0.0-4.0) H 04/19/22 07:11 CK-MB (CK-2) Rel Index 0.8 (0-4) 04/19/22 07:11 Troponin T 2.980 ng/mL (0.00-0.029) H* 04/19/22 07:11 Total Protein 6.2 g/dL (6.3-8.2) L 04/24/22 06:00 Albumin 2.2 g/dL (3.9-5) L 04/24/22 06:00 Albumin/Globulin Ratio 0.6 % 04/24/22 06:00 Triglycerides 230 mg/dL (2-149) H 04/23/22 04:19 Cholesterol 106 mg/dL (50-199) 04/17/22 19:56 LDL Cholesterol Direct 57 mg/dL (50-130) 04/17/22 19:56 HDL Cholesterol 40 mg/dL (40-59) 04/17/22 19:56 Cholesterol/HDL Ratio 2.65 % 04/17/22 19:56 Procalcitonin 44.70 ng/mL (<0.15) 04/22/22 04:32 Urine Color Yellow (Yellow) 04/19/22 02:08 Urine Turbidity Slightly cloudy (Clear) 04/19/22 02:08 Urine pH 5.0 (5.0-7.0) 04/19/22 02:08 Ur Specific [place] 1.005 (1.003-1.030) 04/19/22 02:08 Urine Protein 30 mg/dl mg/dL (Negative) 04/19/22 02:08 Urine Glucose (UA) Negative mg/dL (Negative) 04/19/22 02:08 Urine Ketones Negative mg/dL (Negative) 04/19/22 02:08 Urine Blood Large (Negative) A 04/19/22 02:08 Urine Nitrite Negative (Negative) 04/19/22 02:08 Ur Reducing Substances Not Reportable 04/19/22 02:08 Urine Bilirubin Negative (Negative) 04/19/22 02:08 Urine Ictotest Not Reportable 04/19/22 02:08 Urine Urobilinogen 0.2 mg/dL (<2.0) 04/19/22 02:08 Ur Leukocyte Esterase Negative (Negative) 04/19/22 02:08 Urine WBC (Auto) 88.0 /HPF (0.0-6.0) H 04/19/22 02:08 Urine RBC (Auto) 60.0 /HPF (0.0-6.0) 04/19/22 02:08 Urine Bacteria (Auto) 2+ /HPF (Negative) 04/19/22 02:08 Urine WBC Clumps 3+ /HPF 04/19/22 02:08 RBC Casts 34 /LPF 04/19/22 02:08 Urine Mucus 1+ /HPF 04/19/22 02:08 Urine Yeast (Budding) 3+ /HPF 04/19/22 02:08 Urine Eosinophils None seen (None Seen) 04/19/22 02:08 Urine Creatinine 90.9 mg/dL (0.1-20.0) H 04/19/22 02:08 Urine Sodium 54 mmol/L 04/19/22 02:08 Blood Type A POSITIVE 04/21/22 04:37 Antibody Screen Negative 04/21/22 04:37 [place]/IV: Voiding Method Indwelling Catheter Active Medications - Current Medications Current Medications: Generic Name Dose Route Start Last Admin Trade Name Freq PRN Reason Stop Dose Admin Acetaminophen 650 mg 04/17/22 19:48 04/24/22 06:05 Acetaminophen 325 Mg Tab PO 650 mg Q6H PRN Administration Pain MILD(1-3)/Fever >100.5/CHE Albuterol 2.5 mg 04/17/22 19:48 Albuterol 2.5 Mg/3 Ml Nebu IH Q3HRT PRN Shortness Of Breath Amiodarone HCl 200 mg 04/21/22 13:00 04/24/22 09:07 Amiodarone 200 Mg Tab PO 200 mg BID FLACO Administration Aspirin 81 mg 04/20/22 12:00 04/24/22 09:06 Aspirin 81 Mg Tab Chew FEEDTUBE 81 mg QDAY FLACO Administration Atorvastatin Calcium 20 mg 04/20/22 22:00 04/23/22 21:18 Atorvastatin 20 Mg Tab FEEDTUBE 20 mg QHS FLACO Administration Dextrose 0 ml 04/17/22 23:46 Dextrose 50% In Water (25gm) 50 Ml Syringe IV Q30MIN PRN Hypoglycemia Protocol Famotidine 20 mg 04/20/22 10:00 04/24/22 09:06 Famotidine 20 Mg Tab FEEDTUBE 20 mg DAILY FLACO Administration Fentanyl 50 mcg 04/17/22 20:22 04/18/22 03:52 Fentanyl 100 Mcg/2 Ml Inj IV 50 mcg Q10MIN PRN Administration ANALGESIA Heparin Sodium (Porcine) 5,000 unit 04/21/22 22:00 04/24/22 09:07 Heparin 5,000 Unit/1 Ml Vial SUB-Q 5,000 unit Q12HR FLACO Administration Hydrophilic Ointment 1 applic 04/18/22 06:02 Lip Therapy Vaseline TP Q2HR PRN Dry Lips NORepinephrine/NS 8 MG-250 ML 8 mg in 250 mls @ 3.75 mls/hr 04/17/22 21:00 04/21/22 19:12 Norepinephrine/Ns 8 Mg-250 Ml (Double Conc) IV 0 mcg/min TITRATE FLACO 0 mls/hr Titration Protocol 2 MCG/MIN Fentanyl Citrate 2,000 mcg in 100 mls @ 5.443 mls/hr 04/17/22 21:00 04/24/22 08:40 Fentanyl Drip Premix IV 3 mcg/kg/hr TITR FLACO 16.329 mls/hr Administration Protocol 1 MCG/KG/HR Propofol 1,000 mg in 100 mls @ 3.456 mls/hr 04/18/22 07:00 04/24/22 08:45 Diprivan 10 Mg/Ml IV 0 mcg/kg/min TITR FLACO 0 mls/hr Titration Protocol 5 MCG/KG/MIN Phenylephrine HCl 100 mg/ 100 mls @ 3 mls/hr 04/18/22 07:30 Sodium Chloride IV TITR FLACO Protocol 50 MCG/MIN Levofloxacin/Dextrose 500 mg in 100 mls @ 100 mls/hr 04/20/22 22:00 04/22/22 21:13 Levaquin 500mg/100ml IV 04/25/22 21:59 100 mls/hr Q48H FLACO Administration Protocol Vasopressin 20 unit/ Sodium 101 mls @ 12.12 mls/hr 04/21/22 15:00 04/22/22 15:15 Chloride IV 0 units/min DIRECT FLACO 0 mls/hr Infusion 0.04 UNITS/MIN Dobutamine HCl 500 mg/ 250 mls @ 8.64 mls/hr 04/22/22 14:00 04/24/22 00:10 Dextrose IV 2.5 mcg/kg/min DIRECT FLACO 8.64 mls/hr Administration 2.5 MCG/KG/MIN Insulin Glargine 40 units 04/23/22 22:00 04/23/22 21:15 Insulin Glargine 100 Units/Ml SUB-Q 40 units QHS FLACO Administration Insulin Human Lispro 0 unit 04/18/22 00:00 04/24/22 05:00 Insulin Lispro 100 Unit/Ml SUB-Q 3 unit Q6HR FLACO Administration Protocol Insulin Human Lispro 5 unit 04/23/22 12:00 04/24/22 05:01 Insulin Lispro 100 Unit/Ml SUB-Q 5 unit Q6HR FLACO Administration Multi-Ingred Cream/Lotion/Oil/Oint 1 applic 04/18/22 06:02 Mineral Oil/Petrolatum, White Ophth Oint 3.5 Gm OU Q4HR PRN Dry Eye(s) Oxycodone/Acetaminophen 1 tab 04/22/22 11:05 Oxycodone /Acetaminophen 5-325mg Tab FEEDTUBE Q6H PRN Pain, Moderate (4-6) Potassium Chloride 20 meq 04/24/22 08:00 04/24/22 08:36 Potassium Chloride 20 Meq Packet FEEDTUBE 04/24/22 18:00 20 meq ONCE NR Administration Quetiapine Fumarate 100 mg 04/22/22 22:00 04/24/22 09:06 Quetiapine 100 Mg Tab FEEDTUBE 100 mg BID FLACO Administration Senna/Docusate Sodium 1 tab 04/18/22 10:00 04/24/22 09:06 Sennosides/Docusate Sodium 8.6/50 Mg Tab FEEDTUBE 1 tab BID FLACO Administration Sodium Chloride 10 ml 04/17/22 22:00 04/24/22 09:07 Sodium Chloride 0.9% 10 Ml Flush Syringe IV 10 ml BID FLACO Administration Sodium Chloride 10 ml 04/17/22 19:48 Sodium Chloride 0.9% 10 Ml Flush Syringe IV PRN PRN LINE FLUSH Nutrition/Malnutrition Assess - Dietary Evaluation Nutrition/Malnutrition Findings: Nutrition Notes Start: 04/18/22 08:52 Freq: Status: Active Protocol: Document 04/22/22 10:36 ROMELIA (Rec: 04/22/22 10:49 ROMELIA [id number]) Nutrition Notes Initial or Follow up Brief Note Current Diagnosis Acute Kidney Injury,Diabetes, Sepsis,Hypertension, Respiratory Failure Other Pertinent Diagnosis s/p PEA w/ROSC, HFrEF, Pneumonia, Metabolic Acidosis, Cardiogenic Shock, .. Current Diet TF-Nepro w/CARBSTEADY @ 35 ml/ hr (from D 04/21). Height 5 ft 9 in Weight 115.2 kg [place] Body Weight (kg) 72.72 BMI 37.5 Weight change and time frame No body weight change reported in 4 days. Weight Status Obese Subjective/Other Information RD consult for TF tolerance/ continuation assessment. TF continues as prescribed, no further information available at the time. Pt continues on Mechanical Ventilation, O2 saturation @ 95%, according to Physical Assessment History notes. Percent of energy/protein needs met: Prescribed TF-Nepro w/ CARBSTEADY @ 35 ml/hr provides for energy/protein needs (1, 500 Kcal/68 g) during LOS, 77% Kcal; 90% AA. Including 365 Kcal from Propofol: 95% Kcal; 90% AA. #2 Nutrition Diagnosis Altered nutrition-related laboratory values Comments: Prescribed TF-Nepro w/ CARBSTEADY @ 35 ml/hr provides for energy/protein needs (1, 500 Kcal/68 g) during LOS, 77% Kcal; 90% AA. Including 365 Kcal from Propofol: 95% Kcal; 90% AA. Diagnosis Progress(for reassessment Resolved documentation) #1 Nutrition Diagnosis Inadequate oral intake Diagnosis Progress(for reassessment Continues documentation) Is patient on ventilator? Yes Is Patient Ambulatory and/or Out of Bed No [facility] 2323.608 Kcal/Kg value to use for calculation 17 Approximate Energy Requirements Using 1958 kcal/Kg Calculation Used for Recommendations Kcal/kg Additional Notes Protein: 0.8-1.2 g/Kg AdjBW; 75-113 g/day. Fluids: 1 ml/Kcal, or as per MD. Nutrition Intervention Nutrition Support: Continue TF-Nepro w/CARBSTEADY @ 35 ml/hr. Flush: 220 ml water Q 4 hr, or as per MD. Kcal 1,500 Protein (gm) 68 Carbohydrates (gm) 134 Fat (gm) 80 Fluid (mL) 606 Fiber (gm) 11 % RDI: 77% Kcal; 90% AA. Goal #1 Provide at least 75% of energy /protein needs through Enteral Feeding during LOS. Follow-Up By: 04/29/22 Additional Comments Continue monitoring TF tolerance, ventilation status, vasopressors, and BM. <LISA TOWNSEND - Last Filed: 05/04/22 11:36> History Interval history: I saw and evaluated the patient. I agree with the findings and the plan of care as documented in the Nurse Practitioner's~note, with the following corrections and additions. Hospitalist Physical - Constitutional Vitals: Temp Pulse Resp BP Pulse Ox 98.7 F 58 L 31 H 144/80 98 05/04/22 07:13 05/04/22 10:01 05/04/22 10:01 05/04/22 10:01 05/04/22 10:01 HEART Score - HEART Score Troponin: Troponin T 2.980 ng/mL (0.00-0.029) H* 04/19/22 07:11 Results - Labs CBC & Chem 7: 05/03/22 04:46 05/04/22 03:48 Labs: Laboratory Last Values WBC 16.4 K/mm3 (4.5-11.0) H 05/03/22 04:46 RBC 3.08 M/mm3 (3.65-5.03) L 05/03/22 04:46 Hgb 8.8 gm/dl (11.8-15.2) L 05/03/22 04:46 Hct 27.7 % (35.5-45.6) L 05/03/22 04:46 MCV 90 fl (84-94) 05/03/22 04:46 MCH 29 pg (28-32) 05/03/22 04:46 MCHC 32 % (32-34) 05/03/22 04:46 RDW 15.0 % (13.2-15.2) 05/03/22 04:46 Plt Count 596 K/mm3 (140-440) H 05/03/22 04:46 Lymph % (Auto) 5.7 % (13.4-35.0) L 04/29/22 04:20 [place] % (Auto) 7.8 % (0.0-7.3) H 04/29/22 04:20 Eos % (Auto) 3.9 % (0.0-4.3) 04/29/22 04:20 Baso % (Auto) 0.6 % (0.0-1.8) 04/29/22 04:20 Lymph # (Auto) 1.1 K/mm3 (1.2-5.4) L 04/29/22 04:20 [place] # (Auto) 1.5 K/mm3 (0.0-0.8) H 04/29/22 04:20 Eos # (Auto) 0.8 K/mm3 (0.0-0.4) H 04/29/22 04:20 Baso # (Auto) 0.1 K/mm3 (0.0-0.1) 04/29/22 04:20 Add Manual Diff Complete 04/23/22 04:19 Total Counted 100 04/23/22 04:19 Seg Neutrophils % 82.0 % (40.0-70.0) H 04/29/22 04:20 Seg Neuts % (Manual) 74.0 % (40.0-70.0) H 04/23/22 04:19 Band Neutrophils % 2.0 % 04/23/22 04:19 Lymphocytes % (Manual) 10.0 % (13.4-35.0) L 04/23/22 04:19 Reactive Lymphs % (Man) 0 % 04/23/22 04:19 Monocytes % (Manual) 7.0 % (0.0-7.3) 04/23/22 04:19 Eosinophils % (Manual) 7.0 % (0.0-4.3) H 04/23/22 04:19 Basophils % (Manual) 0 % (0.0-1.8) 04/23/22 04:19 Metamyelocytes % 0 % 04/23/22 04:19 Myelocytes % 0 % 04/23/22 04:19 Promyelocytes % 0 % 04/23/22 04:19 Blast Cells % 0 % 04/23/22 04:19 Nucleated RBC % Not Reportable 04/23/22 04:19 Seg Neutrophils # 16.3 K/mm3 (1.8-7.7) H 04/29/22 04:20 Seg Neutrophils # Man 8.0 K/mm3 (1.8-7.7) H 04/23/22 04:19 Band Neutrophils # 0.2 K/mm3 04/23/22 04:19 Lymphocytes # (Manual) 1.1 K/mm3 (1.2-5.4) L 04/23/22 04:19 Abs React Lymphs (Man) 0.0 K/mm3 04/23/22 04:19 Monocytes # (Manual) 0.8 K/mm3 (0.0-0.8) 04/23/22 04:19 Eosinophils # (Manual) 0.8 K/mm3 (0.0-0.4) H 04/23/22 04:19 Basophils # (Manual) 0.0 K/mm3 (0.0-0.1) 04/23/22 04:19 Metamyelocytes # 0.0 K/mm3 04/23/22 04:19 Myelocytes # 0.0 K/mm3 04/23/22 04:19 Promyelocytes # 0.0 K/mm3 04/23/22 04:19 Blast Cells # 0.0 K/mm3 04/23/22 04:19 WBC Morphology Not Reportable 04/23/22 04:19 Hypersegmented Neuts Not Reportable 04/23/22 04:19 Hyposegmented Neuts Not Reportable 04/23/22 04:19 Hypogranular Neuts Not Reportable 04/23/22 04:19 Smudge Cells Not Reportable 04/23/22 04:19 Toxic Granulation Not Reportable 04/23/22 04:19 Toxic Vacuolation Not Reportable 04/23/22 04:19 Dohle Bodies Not Reportable 04/23/22 04:19 Pelger-Huet Anomaly Not Reportable 04/23/22 04:19 Regla Rods Not Reportable 04/23/22 04:19 Platelet Estimate Consistent w auto 04/23/22 04:19 Clumped Platelets Not Reportable 04/23/22 04:19 Plt Clumps, EDTA Not Reportable 04/23/22 04:19 Large Platelets Not Reportable 04/23/22 04:19 Giant Platelets Not Reportable 04/23/22 04:19 Platelet Satelliting Not Reportable 04/23/22 04:19 Plt Morphology Comment Not Reportable 04/23/22 04:19 RBC Morphology Not Reportable 04/23/22 04:19 Dimorphic RBCs Not Reportable 04/23/22 04:19 Polychromasia Not Reportable 04/23/22 04:19 Hypochromasia Not Reportable 04/23/22 04:19 Poikilocytosis Not Reportable 04/23/22 04:19 Anisocytosis Not Reportable 04/23/22 04:19 Microcytosis Not Reportable 04/23/22 04:19 Macrocytosis Not Reportable 04/23/22 04:19 Spherocytes Not Reportable 04/23/22 04:19 Pappenheimer Bodies Not Reportable 04/23/22 04:19 Sickle Cells Not Reportable 04/23/22 04:19 Target Cells Not Reportable 04/23/22 04:19 Tear Drop Cells Not Reportable 04/23/22 04:19 Ovalocytes Not Reportable 04/23/22 04:19 Helmet Cells Not Reportable 04/23/22 04:19 [place] Bodies Not Reportable 04/23/22 04:19 [place] Rings Not Reportable 04/23/22 04:19 [place] Cells Not Reportable 04/23/22 04:19 Bite Cells Not Reportable 04/23/22 04:19 Crenated Cell Not Reportable 04/23/22 04:19 Elliptocytes Not Reportable 04/23/22 04:19 Acanthocytes (Spur) Not Reportable 04/23/22 04:19 Rouleaux Not Reportable 04/23/22 04:19 Hemoglobin C Crystals Not Reportable 04/23/22 04:19 Schistocytes Not Reportable 04/23/22 04:19 Malaria parasites Not Reportable 04/23/22 04:19 [place] Bodies Not Reportable 04/23/22 04:19 Hem Pathologist Commnt No 04/23/22 04:19 PT 15.6 Sec. (12.2-14.9) H 04/18/22 Unknown INR 1.08 (0.87-1.13) 04/18/22 Unknown APTT 28.6 Sec. (24.2-36.6) 04/18/22 Unknown Activated Coag Time 179 (74-137) H 04/21/22 12:14 Heparin Anti-Xa Level 0.16 U.I./ml (0.3-0.7) L 04/21/22 04:00 ABG pH 7.442 pH Units (7.350-7.450) 05/02/22 04:45 ABG pCO2 37.8 mm Hg 05/02/22 04:45 ABG pO2 83.1 mm Hg (80.0-90.0) 05/02/22 04:45 ABG HCO3 25.2 mmol/L (20.0-26.0) 05/02/22 04:45 ABG O2 Saturation 97.0 % (95.0-99.0) 05/02/22 04:45 ABG O2 Content 12.6 (0.0-44) 05/02/22 04:45 ABG Base Excess 1.1 mmol/L (-2.0-3.0) 05/02/22 04:45 ABG Hemoglobin 9.3 gm/dl (14.0-18.0) L 05/02/22 04:45 ABG Carboxyhemoglobin 1.4 % (0.0-5.0) 05/02/22 04:45 ABG Methemoglobin 0.4 % (0.0-1.5) 05/02/22 04:45 Oxyhemoglobin 95.2 % (95.0-99.0) 05/02/22 04:45 FiO2 30 % 05/02/22 04:45 Sodium 141 mmol/L (137-145) 05/04/22 03:48 Potassium 4.5 mmol/L (3.6-5.0) D 05/04/22 03:48 Chloride 110.5 mmol/L (98-107) H 05/04/22 03:48 Carbon Dioxide 22 mmol/L (22-30) 05/04/22 03:48 Anion Gap 13 mmol/L 05/04/22 03:48 BUN 30 mg/dL (9-20) H 05/04/22 03:48 Creatinine 1.0 mg/dL (0.8-1.3) 05/04/22 03:48 Estimated GFR > 60 ml/min 05/04/22 03:48 BUN/Creatinine Ratio 30 % 05/04/22 03:48 Glucose 123 mg/dL (75-100) H 05/04/22 03:48 POC Glucose 117 mg/dL (70-105) H 05/04/22 05:03 Lactic Acid 1.90 mmol/L (0.7-2.0) 04/21/22 04:20 Calcium 8.1 mg/dL (8.4-10.2) L 05/04/22 03:48 Phosphorus 3.20 mg/dL (2.5-4.5) 05/03/22 04:46 Magnesium 2.10 mg/dL (1.7-2.3) 05/03/22 04:46 Total Bilirubin 0.40 mg/dL (0.1-1.2) 05/04/22 03:48 Direct Bilirubin 0.3 mg/dL (0-0.2) H 04/30/22 04:25 Indirect Bilirubin 0.1 mg/dL 04/30/22 04:25 AST 88 units/L (5-40) H 05/04/22 03:48 ALT 122 units/L (7-56) H 05/04/22 03:48 Alkaline Phosphatase 171 units/L (35-129) H 05/04/22 03:48 Total Creatine Kinase 61 units/L (55-170) 04/29/22 04:20 CK-MB (CK-2) 28.5 ng/mL (0.0-4.0) H 04/19/22 07:11 CK-MB (CK-2) Rel Index 0.8 (0-4) 04/19/22 07:11 Troponin T 2.980 ng/mL (0.00-0.029) H* 04/19/22 07:11 C-Reactive Protein 15.30 mg/dL (0.00-1.30) H 04/28/22 08:20 Total Protein 7.2 g/dL (6.3-8.2) 05/04/22 03:48 Albumin 2.2 g/dL (3.9-5) L 05/04/22 03:48 Albumin/Globulin Ratio 0.4 % 05/04/22 03:48 Triglycerides 214 mg/dL (2-149) H 05/01/22 04:00 Cholesterol 106 mg/dL (50-199) 04/17/22 19:56 LDL Cholesterol Direct 57 mg/dL (50-130) 04/17/22 19:56 HDL Cholesterol 40 mg/dL (40-59) 04/17/22 19:56 Cholesterol/HDL Ratio 2.65 % 04/17/22 19:56 Procalcitonin 2.90 ng/mL (<0.15) 04/28/22 Unknown Urine Color Straw (Yellow) 04/28/22 08:35 Urine Turbidity Clear (Clear) 04/28/22 08:35 Urine pH 6.0 (5.0-7.0) 04/28/22 08:35 Ur Specific [place] 1.000 (1.003-1.030) L 04/28/22 08:35 Urine Protein 300 mg/dl mg/dL (Negative) 04/28/22 08:35 Urine Glucose (UA) Negative mg/dL (Negative) 04/28/22 08:35 Urine Ketones Negative mg/dL (Negative) 04/28/22 08:35 Urine Blood 3+ (Negative) 04/28/22 08:35 Urine Nitrite Negative (Negative) 04/28/22 08:35 Ur Reducing Substances Not Reportable 04/28/22 08:35 Urine Bilirubin Negative (Negative) 04/28/22 08:35 Urine Ictotest Not Reportable 04/28/22 08:35 Urine Urobilinogen < 2.0 mg/dL (<2.0) 04/28/22 08:35 Ur Leukocyte Esterase Small (Negative) 04/28/22 08:35 Urine WBC (Auto) 21.0 /HPF (0.0-6.0) H 04/28/22 08:35 Urine RBC (Auto) 9.0 /HPF (0.0-6.0) 04/28/22 08:35 Urine Bacteria (Auto) 2+ /HPF (Negative) 04/19/22 02:08 Urine WBC Clumps 3+ /HPF 04/19/22 02:08 RBC Casts 34 /LPF 04/19/22 02:08 Urine Mucus Few /HPF 04/28/22 08:35 Urine Yeast (Budding) 3+ /HPF 04/19/22 02:08 Urine Eosinophils None seen (None Seen) 04/19/22 02:08 Urine Creatinine 90.9 mg/dL (0.1-20.0) H 04/19/22 02:08 Urine Sodium 54 mmol/L 04/19/22 02:08 Digoxin 0.7 ng/mL (0.9-2.0) L 05/03/22 04:46 Coronavirus (PCR) Positive (Negative) A 04/29/22 09:38 Influenza A (RT-PCR) Negative (Negative) 04/29/22 11:44 Influenza B (RT-PCR) Negative (Negative) 04/29/22 11:44 Blood Type A POSITIVE 04/21/22 04:37 Antibody Screen Negative 04/21/22 04:37 Microbiology: Microbiology 04/28/22 07:26 Tracheal Aspirate Sputum Culture - Final [place]/IV: Voiding Method Urinal Active Medications - Current Medications Current Medications: Generic Name Dose Route Start Last Admin Trade Name Freq PRN Reason Stop Dose Admin Acetaminophen 650 mg 04/17/22 19:48 04/28/22 21:38 Acetaminophen 325 Mg Tab PO 650 mg Q6H PRN Administration Pain MILD(1-3)/Fever >100.5/CHE Albuterol 2.5 mg 04/17/22 19:48 Albuterol 2.5 Mg/3 Ml Nebu IH Q3HRT PRN Shortness Of Breath Ascorbic Acid 500 mg 05/04/22 22:00 Ascorbic Acid 500 Mg Tab PO 05/10/22 10:01 BID FLACO Aspirin 81 mg 05/05/22 10:00 Aspirin 81 Mg Tab Chew PO QDAY FLACO Atorvastatin Calcium 20 mg 05/04/22 22:00 Atorvastatin 20 Mg Tab PO QHS FLACO Dexamethasone 8 mg 04/30/22 10:00 05/04/22 09:27 Dexamethasone 4 Mg/Ml Vial IV 05/09/22 10:01 8 mg DAILY FLACO Administration Dextrose 0 ml 04/17/22 23:46 Dextrose 50% In Water (25gm) 50 Ml Syringe IV Q30MIN PRN Hypoglycemia Protocol Digoxin 0.125 mg 05/04/22 17:00 Digoxin 0.125 Mg Tab PO DAILY@1700 [facility] Docusate Sodium 100 mg 05/04/22 22:00 Docusate Sodium 100 Mg/10 Ml Oral Liqd PO BID [facility] Doxazosin Mesylate 1 mg 05/04/22 22:00 Doxazosin 1 Mg Tab PO QHS [facility] Enoxaparin Sodium 120 mg 05/02/22 10:00 05/04/22 09:26 Enoxaparin 120 Mg/0.8 Ml Inj SUB-Q 120 mg Q12HR [facility] Administration Protocol Famotidine 20 mg 05/04/22 22:00 Famotidine 20 Mg Tab PO BID [facility] Fentanyl 50 mcg 04/17/22 20:22 04/30/22 22:41 Fentanyl 100 Mcg/2 Ml Inj IV 50 mcg Q10MIN PRN Administration ANALGESIA Furosemide 20 mg 05/04/22 18:00 Furosemide 20 Mg Tab PO 0600,1800 [facility] Hydrophilic Ointment 1 applic 04/18/22 06:02 04/26/22 20:29 Lip Therapy Vaseline TP 1 applic Q2HR PRN Administration Dry Lips Cefepime HCl 2 gm in 100 mls @ 200 mls/hr 04/28/22 08:00 05/04/22 09:26 Cefepime/Ns 2 Gm/100 Ml IV 200 mls/hr Q8H [facility] Administration Protocol Remdesivir 100 mg/ Sodium 250 mls @ 500 mls/hr 05/01/22 14:00 05/03/22 15:45 Chloride IV 05/04/22 14:29 500 mls/hr Q24HR@1400 [facility] Administration Insulin Glargine 35 units 05/03/22 22:00 05/03/22 21:01 Insulin Glargine 100 Units/Ml SUB-Q 35 units QHS [facility] Administration Insulin Human Lispro 10 unit 05/04/22 11:30 Insulin Lispro 100 Unit/Ml SUB-Q ACHS [facility] Insulin Human Lispro 0 unit 05/04/22 11:30 Insulin Lispro 100 Unit/Ml SUB-Q ACHS [facility] Protocol Metoprolol Tartrate 12.5 mg 05/04/22 10:00 Metoprolol Tartrate 25 Mg Tab PO BID [facility] Multi-Ingred Cream/Lotion/Oil/Oint 1 applic 04/18/22 06:02 Mineral Oil/Petrolatum, White Ophth Oint 3.5 Gm OU Q4HR PRN Dry Eye(s) Oxycodone/Acetaminophen 1 tab 05/04/22 10:00 Oxycodone /Acetaminophen 5-325mg Tab PO Q6H PRN Pain, Moderate (4-6) Senna/Docusate Sodium 2 tab 05/04/22 10:00 05/04/22 09:46 Sennosides/Docusate Sodium 8.6/50 Mg Tab PO Not Given BID FLACO Sodium Chloride 10 ml 04/17/22 22:00 05/04/22 09:28 Sodium Chloride 0.9% 10 Ml Flush Syringe IV 10 ml BID FLACO Administration Sodium Chloride 10 ml 04/17/22 19:48 Sodium Chloride 0.9% 10 Ml Flush Syringe IV PRN PRN LINE FLUSH Sodium Chloride 50 ml 04/30/22 09:00 05/03/22 15:45 Sodium Chloride 0.9% 50 Ml Ivpb IV 05/04/22 14:01 50 ml Q24HR@1400 [facility] Administration Zinc Sulfate 220 mg 04/30/22 22:00 05/04/22 09:27 Zinc Sulfate 220 Mg Cap PO 05/10/22 10:01 220 mg BID FLACO Administration Nutrition/Malnutrition Assess - Dietary Evaluation Nutrition/Malnutrition Findings: Nutrition Notes Start: 04/18/22 08:52 Freq: Status: Active Protocol: Document 04/29/22 11:29 ROMELIA (Rec: 04/29/22 11:55 ROMELIA [id number]) Nutrition Notes Initial or Follow up Reassessment Current Diagnosis Acute Kidney Injury,Diabetes, Sepsis,Hypertension, Respiratory Failure Other Pertinent Diagnosis s/p PEA w/ROSC, HFrEF, Pneumonia, Transaminitis, Rabdomyolisis, .. Current Diet TF-Nepro w/CARBSTEADY @ 35 ml/ hr (from D 04/21). Labs/Tests 04/29: BUN 30, Crea 1.6, Glu 236, Ca 8.1. Pertinent Medications 04/29: Humalog 4U, Propofol @ 3.456 ml/hr (91 Kcal), mothers nutritionally unremarkable. Height 5 ft 9 in Weight 115.2 kg [place] Body Weight (kg) 72.72 BMI 37.5 Weight change and time frame No body weight change reported in 11 days. Weight Status Obese Subjective/Other Information RD consult for routine F/U on TF tolerance/continuation assessment. TF continues as prescribed, no further information available at the time. Pt continues on Mechanical Ventilation, O2 saturation @ 100%, according to Physical Assessment History notes. Pt remains incontinent, according to Physical Assessment History notes. Pt presents blisters on the groin and on hand, according to Physical Assessment History notes. Percent of energy/protein needs met: Prescribed TF-Nepro w/ CARBSTEADY @ 35 ml/hr provides for energy/protein needs (1, 500 Kcal/68 g) during LOS, 77% Kcal; 90% AA. Including 91 Kcal from Propofol: 81% Kcal; 90% AA. Burn Absent Trauma Absent GI Symptoms None Food Allergy No Skin Integrity/Comment Blisters on the groin and on hand. Current % PO Other Minimum of two criteria No Fluid Accumulation N/A Reduced Credentialing Assistant Strength N/A (non-severe) Protein-Calorie Malnutrition N\A #1 Nutrition Diagnosis Inadequate oral intake Diagnosis Progress(for reassessment Continues documentation) Is patient on ventilator? Yes Is Patient Ambulatory and/or Out of Bed No REE-([facility]-confined to bed) 2323.608 Kcal/Kg value to use for calculation 17 Approximate Energy Requirements Using 1958 kcal/Kg Calculation Used for Recommendations Kcal/kg Additional Notes Protein: 0.8-1.2 g/Kg AdjBW; 75-113 g/day. Fluids: 1 ml/Kcal, or as per MD. Nutrition Intervention Nutrition Support: Continue TF-Nepro w/CARBSTEADY @ 35 ml/hr. Flush: 220 ml water Q 4 hr, or as per MD. Kcal 1,500 Protein (gm) 68 Carbohydrates (gm) 134 Fat (gm) 80 Fluid (mL) 606 Fiber (gm) 11 % RDI: 77% Kcal; 90% AA. Goal #1 Provide at least 75% of energy /protein needs through Enteral Feeding during LOS. Follow-Up By: 05/06/22 Additional Comments Continue monitoring TF tolerance, ventilation status, vasopressors, and BM.
--- NOTE | 2022-04-24 14:15 | Progress Note ---
Assessment and Plan VINCENT /TASHA - F/u resolving BUN/Cr & f/u urine output. Still advise to avoid Diuretics Vitals - On Dobutamine, f/u per Cardiology S/p V Fib Arrest - Nonischemic Cardiomyopathy. F/u Mx Lytes - F/u labs Resp Failure - F/u per Pulm May call for renal discussion as necessary. Thanks Sanchez Strange MD Subjective Date of service: 04/24/22 Principal diagnosis: AHRF; AMS; Pneumonia; Shock; DM II; Severe Metabolic Acidosis Objective - Vital Signs Vital signs: Vital Signs - 12hr 04/24/22 04/24/22 04/24/22 03:00 03:48 04:00 Temperature 100.3 F H Pulse Rate 110 H 105 H Respiratory 17 18 Rate Blood Pressure 116/73 117/65 122/69 O2 Sat by Pulse 99 100 97 Oximetry 04/24/22 04/24/22 04/24/22 05:00 05:05 06:00 Temperature Pulse Rate 105 H 101 H Respiratory 16 17 18 Rate Blood Pressure 124/76 130/72 O2 Sat by Pulse 96 99 96 Oximetry 04/24/22 04/24/22 04/24/22 06:05 07:00 07:05 Temperature Pulse Rate 108 H Respiratory 17 17 17 Rate Blood Pressure 114/70 O2 Sat by Pulse 96 Oximetry 04/24/22 04/24/22 04/24/22 08:00 09:00 09:15 Temperature 99.1 F Pulse Rate 106 H 104 H Respiratory 16 17 Rate Blood Pressure 123/72 127/79 O2 Sat by Pulse 97 95 94 Oximetry 04/24/22 04/24/22 04/24/22 09:32 10:00 11:00 Temperature Pulse Rate 120 H 117 H Respiratory 15 16 Rate Blood Pressure 125/77 126/73 O2 Sat by Pulse 95 95 96 Oximetry 04/24/22 11:30 Temperature Pulse Rate 114 H Respiratory Rate Blood Pressure 125/77 O2 Sat by Pulse 98 Oximetry - General Appearance General appearance: sedated on ventilator Neck: supple Respiratory: Present: Other (Good air entry per vent) Cardiology: regular, S1S2 Gastrointestinal: obese - Lab 04/24/22 06:00 04/24/22 06:00 Most recent lab results ABG pH 7.417 pH Units (7.350-7.450) 04/24/22 04:35 ABG pCO2 50.1 mm Hg 04/24/22 04:35 ABG pO2 83.4 mm Hg (80.0-90.0) 04/24/22 04:35 ABG HCO3 31.5 mmol/L (20.0-26.0) H 04/24/22 04:35 ABG O2 Saturation 96.9 % (95.0-99.0) 04/24/22 04:35 Calcium 8.2 mg/dL (8.4-10.2) L 04/24/22 06:00 Phosphorus 2.60 mg/dL (2.5-4.5) 04/23/22 04:19 Magnesium 2.20 mg/dL (1.7-2.3) 04/23/22 04:19 Urine Creatinine 90.9 mg/dL (0.1-20.0) H 04/19/22 02:08 Urine Sodium 54 mmol/L 04/19/22 02:08 Medications & Allergies - Medications Allergies/Adverse Reactions: Allergies No Known Allergies Allergy (Unverified 04/17/22 19:30) Home Medications: Home Medications Medication Instructions Recorded Confirmed Last Taken Type AtorvaSTATin 40 mg PO QHS 04/22/22 04/22/22 Unknown History Humulin N 22 units SQ QHS 04/22/22 04/22/22 Unknown History amLODIPine 10 mg PO QAM 04/22/22 04/22/22 Unknown History glipiZIDE 20 mg PO BID 04/22/22 04/22/22 Unknown History metFORMIN 850 mg PO TID 04/22/22 04/22/22 Unknown History Active Medications: Generic Name Dose Route Start Last Admin Trade Name Freq PRN Reason Stop Dose Admin Acetaminophen 650 mg 04/17/22 19:48 04/24/22 06:05 Acetaminophen 325 Mg Tab PO 650 mg Q6H PRN Administration Pain MILD(1-3)/Fever >100.5/CHE Albuterol 2.5 mg 04/17/22 19:48 Albuterol 2.5 Mg/3 Ml Nebu IH Q3HRT PRN Shortness Of Breath Amiodarone HCl 200 mg 04/21/22 13:00 04/24/22 09:07 Amiodarone 200 Mg Tab PO 200 mg BID FLACO Administration Aspirin 81 mg 04/20/22 12:00 04/24/22 09:06 Aspirin 81 Mg Tab Chew FEEDTUBE 81 mg QDAY FLACO Administration Atorvastatin Calcium 20 mg 04/20/22 22:00 04/23/22 21:18 Atorvastatin 20 Mg Tab FEEDTUBE 20 mg QHS [facility]ACO Administration Dextrose 0 ml 04/17/22 23:46 Dextrose 50% In Water (25gm) 50 Ml Syringe IV Q30MIN PRN Hypoglycemia Protocol Famotidine 20 mg 04/20/22 10:00 04/24/22 09:06 Famotidine 20 Mg Tab FEEDTUBE 20 mg DAILY FLACO Administration Fentanyl 50 mcg 04/17/22 20:22 04/18/22 03:52 Fentanyl 100 Mcg/2 Ml Inj IV 50 mcg Q10MIN PRN Administration ANALGESIA Heparin Sodium (Porcine) 5,000 unit 04/21/22 22:00 04/24/22 09:07 Heparin 5,000 Unit/1 Ml Vial SUB-Q 5,000 unit Q12HR FLACO Administration Hydrophilic Ointment 1 applic 04/18/22 06:02 Lip Therapy Vaseline TP Q2HR PRN Dry Lips NORepinephrine/NS 8 MG-250 ML 8 mg in 250 mls @ 3.75 mls/hr 04/17/22 21:00 04/21/22 19:12 Norepinephrine/Ns 8 Mg-250 Ml (Double Conc) IV 0 mcg/min TITRATE FLACO 0 mls/hr Titration Protocol 2 MCG/MIN Fentanyl Citrate 2,000 mcg in 100 mls @ 5.443 mls/hr 04/17/22 21:00 04/24/22 08:40 Fentanyl Drip Premix IV 3 mcg/kg/hr TITR FLACO 16.329 mls/hr Administration Protocol 1 MCG/KG/HR Propofol 1,000 mg in 100 mls @ 3.456 mls/hr 04/18/22 07:00 04/24/22 09:35 Diprivan 10 Mg/Ml IV 20 mcg/kg/min TITR FLACO 13.824 mls/hr Titration Protocol 5 MCG/KG/MIN Phenylephrine HCl 100 mg/ 100 mls @ 3 mls/hr 04/18/22 07:30 Sodium Chloride IV TITR FLACO Protocol 50 MCG/MIN Levofloxacin/Dextrose 500 mg in 100 mls @ 100 mls/hr 04/20/22 22:00 04/22/22 21:13 Levaquin 500mg/100ml IV 04/25/22 21:59 100 mls/hr Q48H FLACO Administration Protocol Vasopressin 20 unit/ Sodium 101 mls @ 12.12 mls/hr 04/21/22 15:00 04/22/22 15:15 Chloride IV 0 units/min DIRECT FLACO 0 mls/hr Infusion 0.04 UNITS/MIN Dobutamine HCl 500 mg/ 250 mls @ 8.64 mls/hr 04/22/22 14:00 04/24/22 00:10 Dextrose IV 2.5 mcg/kg/min DIRECT FLACO 8.64 mls/hr Administration 2.5 MCG/KG/MIN Insulin Glargine 40 units 04/23/22 22:00 04/23/22 21:15 Insulin Glargine 100 Units/Ml SUB-Q 40 units QHS FLACO Administration Insulin Human Lispro 0 unit 04/18/22 00:00 04/24/22 12:58 Insulin Lispro 100 Unit/Ml SUB-Q 4 unit Q6HR [facility]ACO Administration Protocol Insulin Human Lispro 5 unit 04/23/22 12:00 04/24/22 12:59 Insulin Lispro 100 Unit/Ml SUB-Q 5 unit Q6HR [facility]ACO Administration Multi-Ingred Cream/Lotion/Oil/Oint 1 applic 04/18/22 06:02 Mineral Oil/Petrolatum, White Ophth Oint 3.5 Gm OU Q4HR PRN Dry Eye(s) Oxycodone/Acetaminophen 1 tab 04/22/22 11:05 Oxycodone /Acetaminophen 5-325mg Tab FEEDTUBE Q6H PRN Pain, Moderate (4-6) Potassium Chloride 20 meq 04/24/22 08:00 04/24/22 08:36 Potassium Chloride 20 Meq Packet FEEDTUBE 04/24/22 18:00 20 meq ONCE NR Administration Quetiapine Fumarate 100 mg 04/22/22 22:00 04/24/22 09:06 Quetiapine 100 Mg Tab FEEDTUBE 100 mg BID FLACO Administration Senna/Docusate Sodium 1 tab 04/18/22 10:00 04/24/22 09:06 Sennosides/Docusate Sodium 8.6/50 Mg Tab FEEDTUBE 1 tab BID FLACO Administration Sodium Chloride 10 ml 04/17/22 22:00 04/24/22 09:07 Sodium Chloride 0.9% 10 Ml Flush Syringe IV 10 ml BID FLACO Administration Sodium Chloride 10 ml 04/17/22 19:48 Sodium Chloride 0.9% 10 Ml Flush Syringe IV PRN PRN LINE FLUSH
[2022-04-24] MEDS ORDERED: METOPROLOL TARTRATE 5 MG/5 ML INJ IV ONE (19:30)
[2022-04-24] MEDS: INSULIN GLARGINE 100 UNITS/ML SUB-Q SCH (21:20)
[2022-04-25] MEDS: DEXTROSE 5% IV SCH (00:49)
[2022-04-25] MEDS: WATER IV SCH (00:49)
[2022-04-25] MEDS: DOBUTAMINE IV SCH (00:49)
[2022-04-25] MEDS: fentaNYL DRIP Premix 2,000 MCG/100 ML BAG IV SCH ×4 (02:32→20:22)
[2022-04-25 04:05] LABS: Calcium 8.3 mg/dL (8.4-10.2)
[2022-04-25 04:17] LABS: Basophils % (Auto) 0.1 % (0.0-1.8); Hematocrit 30.2 % (35.5-45.6); Hemoglobin 9.8 gm/dl (11.8-15.2); Lymphocytes # (Auto) 0.9 K/mm3 (1.2-5.4); Lymphocytes % (Auto) 4.7 % (13.4-35.0); Mean Corpuscular HGB Conc 32 % (32-34); Mean Corpuscular Volume 89 fl (84-94); Monocytes # (Auto) 1.2 K/mm3 (0.0-0.8); Monocytes % (Auto) 6.2 % (0.0-7.3); Platelet Count 251 K/mm3 (140-440); Red Blood Count 3.39 M/mm3 (3.65-5.03); Red Cell Distribution Width 15.6 % (13.2-15.2)
[2022-04-25] MEDS: INSULIN LISPRO 100 UNIT/ML SUB-Q SCH ×6 (05:00→18:06)
[2022-04-25 05:12] LABS: ABG Base Excess 6.7 mmol/L (-2.0-3.0); ABG HCO3 32.2 mmol/L (20.0-26.0); ABG Methemoglobin 0.5 % (0.0-1.5); ABG Oxygen Saturation 96.9 % (95.0-99.0); ABG PCO2 51.4 mm Hg; ABG PH 7.415 pH Units (7.350-7.450)
--- NOTE | 2022-04-25 06:45 | XRay Report ---
CHEST 1 VIEW 04/25/2022 5:35 AM INDICATION / CLINICAL INFORMATION: follow up respiratory failure. COMPARISON: 04/24/2022 FINDINGS: SUPPORT DEVICES: Stable, satisfactory device positioning. HEART / MEDIASTINUM: Cardiomegaly LUNGS / PLEURA: Bilateral pulmonary opacities with small effusions No pneumothorax. Signer Name: Lewis Roe MD Signed: 04/25/2022 6:40 AM Workstation Name: [id number]
--- NOTE | 2022-04-25 09:40 | Progress Note ---
Assessment and Plan 1. Status post cardiopulmonary arrest 2. Respiratory failure intubated on mechanical ventilator 3. Post cardiac arrest Encephalopathy 4. Atrial fibrillation with rapid ventricular response 5. Dilated nonischemic cardiomyopathy left ventricular ejection fraction of 15 to 20%. 6. Cardiogenic shock 7. Acute renal failure 8. Obesity Plan. Patient is currently intubated and sedated at bedside states when off sedation patient does respond to commands. Patient to be weaned off sedation and subsequently extubated as tolerated. We will continue present supportive cardiac management and wean of pressor agents as hemodynamically tolerated. Discussed management plan with who is at bedside Subjective Date of service: 04/25/22 Principal diagnosis: AHRF; AMS; Pneumonia; Shock; DM II; Severe Metabolic Acidosis Interval history: Patient is intubated and sedated on mechanical ventilator. Objective Vital Signs Temp Pulse Pulse Pulse Resp Resp BP 04/25/22 08:31 103 H 16 120/70 04/25/22 08:01 107 H 16 120/70 04/25/22 08:00 100.3 F H 105 H 16 04/25/22 07:49 109 H 151/76 04/25/22 07:31 105 H 16 120/70 04/25/22 07:00 104 H 16 125/75 04/25/22 06:31 109 H 17 118/67 04/25/22 06:00 103 H 14 120/70 04/25/22 05:31 103 H 16 118/67 04/25/22 05:00 97 H 16 118/67 04/25/22 04:31 93 H 16 108/67 04/25/22 04:00 94 H 16 108/67 04/25/22 03:31 95 H 16 116/68 04/25/22 03:30 98.9 F 95 H 16 04/25/22 03:00 109 H 16 120/69 04/25/22 02:31 103 H 17 120/69 04/25/22 02:00 107 H 16 120/69 04/25/22 01:31 107 H 15 107/65 04/25/22 01:00 106 H 16 107/65 04/25/22 00:41 16 04/25/22 00:31 110 H 17 104/68 04/25/22 00:03 102 H 17 104/68 04/25/22 00:00 100 H 16 104/68 04/24/22 23:41 17 08/12/22 23:40 100.3 F H 04/24/22 23:31 111 H 17 114/64 04/24/22 23:30 106 H 119/59 04/24/22 23:28 17 04/24/22 23:00 98 H 16 119/59 04/24/22 22:31 109 H 17 114/64 04/24/22 22:00 111 H 16 114/64 04/24/22 21:31 120 H 16 111/65 04/24/22 21:00 109 H 16 111/65 04/24/22 20:31 107 H 18 115/55 04/24/22 20:00 111 H 16 115/55 04/24/22 19:55 122 H 131/66 04/24/22 19:49 127 H 131/66 04/24/22 19:31 144 H 20 131/66 04/24/22 19:22 16 04/24/22 19:00 100.0 F H 130 H 135 H 127 H 18 131/66 04/24/22 18:31 119 H 19 119/68 04/24/22 18:22 17 04/24/22 18:00 137 H 18 119/68 04/24/22 17:31 142 H 16 122/76 04/24/22 17:00 126 H 17 137/70 04/24/22 16:31 129 H 17 137/70 04/24/22 16:00 124 H 20 137/70 04/24/22 15:31 124 H 19 135/70 04/24/22 15:10 113 H 121/69 04/24/22 15:00 129 H 18 135/70 04/24/22 14:51 115 H 04/24/22 14:31 115 H 17 131/66 04/24/22 14:00 109 H 16 131/66 04/24/22 13:31 112 H 16 121/69 04/24/22 13:00 130 H 16 121/69 04/24/22 12:31 131 H 16 127/73 04/24/22 12:00 98.9 F 123 H 16 127/73 04/24/22 11:31 116 H 16 126/73 04/24/22 11:30 114 H 125/77 04/24/22 11:00 117 H 16 126/73 04/24/22 10:00 120 H 15 125/77 Pulse Ox 04/25/22 08:31 99 04/25/22 08:01 99 04/25/22 08:00 100 04/25/22 07:49 98 04/25/22 07:31 99 04/25/22 07:00 98 04/25/22 06:31 99 04/25/22 06:00 97 04/25/22 05:31 99 04/25/22 05:00 98 04/25/22 04:31 99 04/25/22 04:00 97 04/25/22 03:31 99 04/25/22 03:30 99 04/25/22 03:00 99 04/25/22 02:31 99 04/25/22 02:00 97 04/25/22 01:31 98 04/25/22 01:00 97 04/25/22 00:41 04/25/22 00:31 99 04/25/22 00:03 99 04/25/22 00:00 98 04/24/22 23:41 04/24/22 23:40 04/24/22 23:31 99 04/24/22 23:30 99 04/24/22 23:28 04/24/22 23:00 98 04/24/22 22:31 99 04/24/22 22:00 97 04/24/22 21:31 98 04/24/22 21:00 98 04/24/22 20:31 99 04/24/22 20:00 96 04/24/22 19:55 04/24/22 19:49 98 04/24/22 19:31 97 04/24/22 19:22 04/24/22 19:00 97 04/24/22 18:31 98 04/24/22 18:22 04/24/22 18:00 97 04/24/22 17:31 97 04/24/22 17:00 04/24/22 16:31 98 04/24/22 16:00 97 04/24/22 15:31 97 04/24/22 15:10 98 04/24/22 15:00 95 04/24/22 14:51 04/24/22 14:31 98 04/24/22 14:00 97 04/24/22 13:31 99 04/24/22 13:00 97 04/24/22 12:31 98 04/24/22 12:00 96 04/24/22 11:31 98 04/24/22 11:30 98 04/24/22 11:00 96 04/24/22 10:00 95 - Physical Examination General: Other (Patient is intubated, sedated, on the vent) HEENT: Positive: Other (Pupils fixed) Neck: Positive: neck supple Cardiac: Positive: irregularly irregular, S1/S2, S3, PMI, Dilated, Laterally Displaced Lungs: Positive: clear to auscultation Neuro: Positive: Other (Intubated, sedated on the vent, unable to assess) Abdomen: Positive: Soft Skin: Positive: Other (Blisters on the right hand) Extremities: Present: edema (Trace) - Labs and Meds CBC 04/25/22 Range/Units 03:30 WBC 19.7 H (4.5-11.0) K/mm3 RBC 3.39 L (3.65-5.03) M/mm3 Hgb 9.8 L (11.8-15.2) gm/dl Hct 30.2 L (35.5-45.6) % Plt Count 251 (140-440) K/mm3 Lymph # (Auto) 0.9 L (1.2-5.4) K/mm3 Dickinson # (Auto) 1.2 H (0.0-0.8) K/mm3 Eos # (Auto) 1.0 H (0.0-0.4) K/mm3 Baso # (Auto) 0.0 (0.0-0.1) K/mm3 Comprehensive Metabolic Panel 04/25/22 Range/Units 03:30 Sodium 151 H (137-145) mmol/L Potassium 3.5 L (3.6-5.0) mmol/L Chloride 108.6 H (98-107) mmol/L Carbon Dioxide 31 H (22-30) mmol/L BUN 27 H (9-20) mg/dL Creatinine 1.9 H (0.8-1.3) mg/dL Glucose 144 H (75-100) mg/dL Calcium 8.3 L (8.4-10.2) mg/dL - Allied health notes Allied health notes reviewed: nursing
[2022-04-25] MEDS: AMIODARONE 200 MG TAB PO SCH ×2 (10:00→20:59)
[2022-04-25] MEDS: QUEtiapine 100 MG TAB FEEDTUBE SCH ×2 (10:00→20:59)
[2022-04-25] MEDS: HEPARIN 5,000 UNIT/1 ML VIAL SUB-Q SCH ×2 (10:00→20:59)
[2022-04-25] MEDS: SENNOSIDES/DOCUSATE SODIUM 8.6/50 MG TAB FEEDTUBE SCH ×2 (10:00→20:59)
[2022-04-25] MEDS: FAMOTIDINE 20 MG TAB FEEDTUBE SCH (10:00)
[2022-04-25] MEDS: ASPIRIN 81 MG TAB CHEW FEEDTUBE SCH (10:00)
--- NOTE | 2022-04-25 11:25 | Progress Note ---
<MOHIT MARTE - Last Filed: 04/25/22 12:02> Assessment and Plan Assessment and plan: This is a 62 year old male with OHS, HTN, DM, metabolic syndrome, s/p vfib cardiac arrest, Septic shock, aspiration pneumonia, transaminitis, VINCENT with acute metabolic encephalopathy Neuro: Acute metabolic encephalopathy, facial contusions s/p fall -CT head showed no focal intra-axial mass, hemorrhage, hydrocephalus or acute or large territorial infarct -Sedated with propofol and fentanyl -wean propofol as tolerated -RASS goal 0 to -1 -Seroquel 100 mg bid -EKG to monitor qTc -Reorientation as needed -Maintain sleep-wake cycle -Neurology consulted, appreciate recommendations -As needed analgesia Cardiac: A. fib RVR , s/p V. fib cardiac arrest, ? cardiogenic shock, h/o atrial fibrillation s/p cardioversion, HTN -Cardiology consulted, appreciate recommendations -S/p V. fib cardiac arrest -S/p dopamine drip and dobutamine drip which resolved tachycardia -Amio gtt changed to PO -s/p IV heparin -Blood pressure monitoring per protocol -s/p Vasopressor support with levophed, epinephrine, vasopressin -Dobutamine gtt -Echocardiogram shows EF of 15 to 20% -Left heart cath showed severe nonischemic cardiomyopathy with patent coronary arteries, which per cardiology presumably resulted in a primary cardiac arrest. -Per cardio: When blood pressure tolerates, he will need optimal medical therapy for afterload, beta-blockers, and long-term oral anticoagulation. Eventually f rom a cardiac standpoint, will need predischarge device therapy for secondary prevention of SCD, once he is off the vent and clinical status is optimized. Plan to try digoxin today Respiratory: Acute hypoxic respiratory failure, h/o OHS -CCM consulted, appreciate recommendations -Intubated on 04/17 with 7.0 OETT @ 22 at the lips, reintubated 04/23 -A.m. vent settings: AC tidal volume 500, rate 16, PEEP 8, FiO2 35% -See RT notes for titration -Chest US shows no pleural effusion -A.m. ABG and CXR noted -VAP bundle -SPO2 monitoring GI: Transaminitis (resolving), moderate protein calorie malnutrition -24 hours -1296 mL -PPI -NTR consulted for tube feedings -BR: Senokot -Trend LFTs : Acute kidney injury likely secondary to vasomotor nephropathy, hypernatremia -Nephrology consulted, appreciate recommendations -Monitor intake and output -Renally dose medications -Avoid nephrotoxic medications -s/p bicarb gtt and MIVF -FWF -Renal ultrasound shows distended gallbladder, no cholecystic fluid -Trend BMP ID: Aspiration pneumonia, Sepsis, lactic acidosis -CTA chest shows extensive bilateral airspace disease present dependent portions and greater in the upper lobes, given distribution could be related to aspiration -Admitted with hypotension, lactic acidosis, acute kidney injury -Antibiotic therapy with Levaquin -f/u blood culture -Monitor WBC and temperature curve Endo: h/o DM -Avoid hypoglycemia -SSI -Accu-Cheks q. 6 -Long-acting insulin, titrate as needed Heme: Leukocytosis, elevated D-dimer -CTA chest shows no pulmonary embolism -Trend CBC -Transfuse for hemoglobin less than 7 -Bilateral Doppler ultrasound showed no DVT -SCDs to BLE while in bed The high probability of a clinically significant, sudden or life threatening deterioration of the [multiple] system(s) required my full and direct attention, intervention and personal management. The aggregate critical care time was [60] minutes. This time is in addition to time spent performing reported procedures but includes the following: [x] Data Review and interpretation [x] Patient assessment and monitoring of vital signs [x] Documentation [x] Medication orders and management Disposition Plan: icu Total Time Spent with Patient (Minutes): 60 History Interval history: This is is a 62-year-old male with OHS, HTN, DM, metabolic syndrome presents the emergency department on 04/17 via EMS s/p cardiac arrest. As per family patient presented to [place] outpatient clinic for evaluation for chest pain and subsequently went to the restroom where he was found unresponsive and EMS arrived and noted the patient had a V. fib arrest and ACLS was initiated and patient was transported to [facility] for further evaluation. Patient was noted to have aspirated into the oropharynx with suspected aspiration pneumonia complicated by acute hypoxic respiratory failure, septic shock and cardiac arrest. Patient was initiated on the sepsis protocol, IV vasopressor support and admitted to the ICU with consults to [facility], nephrology and cardiology. Hospital Course to Date: 04/18: Severely acidotic this am, now on bcarb gtt. On high dose pressors- Levophed and Vaso. Afib in control rate on the monitor, on Amiodarone and heparin gtt per protocol. Cardiology is following. Patient remains afebrile and leukocytosis improved this am. Now with worsen renal function and low UOP. Patient's EF is 25 to 30%, Dobutamine gtt initiated. Continue current IV abx, continue to trend troponin and lactic acid. Nephrology also consulted for further recs. BLE swelling noted, BLE doppler ordered to r/o DVT. 04/19: Agitation with low SPO2 overnight, sedation increased. This am ABG with worsen hypoxia on 40% Fio2, SPO2 at 90% this am. Fio2 increased to 50%, SPO2 improved above 92%. Remains on multiple pressors and bcarb gtt. Now on dopamine gtt, in Afib with RVR on the monitor. Still on Amiodarone and heparin gtts. Echo noted, EF 15 to 20%. Cardiology is following. With worsen renal function, however making urine this am. No indication for KELP CUTTER at this per Nephro. Will continue to monitor. Monitor and replace electrolytes as needed 04/20: Nephrology spoke to at bedside re HD, cardiology will proceed with LHC if patient is to recieve HD post procedure, vent changes per CCM, Sedated with fentanyl and propofol with heparin and amio gtt infusing. 04/21: LHC today. Nephrology will continue IVF and if renal function worsens then will proceed HD with consent from family. Patient became hypoxic with FiO2 at 40% yesterday evening and is currently at 65%. 04/22: Patient was started on vasopressin IV fluids yesterday and his creatinine decreased from 4.2 to 2.9. Patient severely agitated while on propofol and fentanyl. Started low-dose Seroquel and started to wean propofol as tolerated. Patient does follow commands today. Increase in lantus. IV fluids decreased, started on dobutamine per [facility] and wean vasopressin for target MAP of 65-70 and SBP greater than 110 04/23: This morning patient being extremely hypertensive with SBP into 200s and given metoprolol. Rn asked to wean propofol as tolerated. Dobutamine decreased to 2.5. Cr improved. US chest completed and showed no pleural effusions. This afternoon alerted by RN that RT believes pt bite through his tube and anesthesia was called to bedside for tube exchange. Decision was made to extubate and reintubate the patient. CXR ordered. 04/24: Patient placed on CPAP trial. Renal numbers look better today. Cardiology would like to try digoxin. No acute events reported overnight. 04/25: Patient now with hypernatremia, slightly increased renal function today but still putting out over 1 L urine over the past 24 hours. Will increase free water flushes and repleate potassium cautiously. Cardilogy will like to continue current management. PSV when able Hospitalist Physical - Physical exam Narrative exam: General appearance: Present: no acute distress, other (Intubated and Sedated) - EENT Eyes: Present: PERRL, EOM intact ENT: hearing decreased - Neck Neck: Present: normal ROM - Respiratory Respiratory effort: normal Respiratory: bilateral: diminished, rhonchi - Cardiovascular Rhythm: irregularly irregular Heart Sounds: Present: S1 & S2. Absent: systolic murmur, diastolic murmur - Extremities Extremities: no ischemia, pulses intact Extremity abnormal: edema Peripheral Pulses: within normal limits - Abdominal General gastrointestinal: soft, non-tender, non-distended, normal bowel sounds - Integumentary Integumentary: Present: warm, dry - Neurologic Neurologic: other (follows commands, intact cough/gag) - Allied Health Allied health notes reviewed: nursing, RT - Constitutional Vitals: Temp Pulse Resp BP Pulse Ox 100.3 F H 103 H 16 120/70 99 04/25/22 08:00 04/25/22 08:31 04/25/22 08:31 04/25/22 08:31 04/25/22 08:31 General appearance: Present: no acute distress, other (Intubated and Sedated) HEART Score - HEART Score Troponin: Troponin T 2.980 ng/mL (0.00-0.029) H* 04/19/22 07:11 Results - Labs CBC & Chem 7: 04/25/22 03:30 04/25/22 03:30 Labs: Laboratory Last Values WBC 19.7 K/mm3 (4.5-11.0) H 04/25/22 03:30 RBC 3.39 M/mm3 (3.65-5.03) L 04/25/22 03:30 Hgb 9.8 gm/dl (11.8-15.2) L 04/25/22 03:30 Hct 30.2 % (35.5-45.6) L 04/25/22 03:30 MCV 89 fl (84-94) 04/25/22 03:30 MCH 29 pg (28-32) 04/25/22 03:30 MCHC 32 % (32-34) 04/25/22 03:30 RDW 15.6 % (13.2-15.2) H 04/25/22 03:30 Plt Count 251 K/mm3 (140-440) 04/25/22 03:30 Lymph % (Auto) 4.7 % (13.4-35.0) L 04/25/22 03:30 Bureau % (Auto) 6.2 % (0.0-7.3) 04/25/22 03:30 Eos % (Auto) 5.0 % (0.0-4.3) H 04/25/22 03:30 Baso % (Auto) 0.1 % (0.0-1.8) 04/25/22 03:30 Lymph # (Auto) 0.9 K/mm3 (1.2-5.4) L 04/25/22 03:30 Bureau # (Auto) 1.2 K/mm3 (0.0-0.8) H 04/25/22 03:30 Eos # (Auto) 1.0 K/mm3 (0.0-0.4) H 04/25/22 03:30 Baso # (Auto) 0.0 K/mm3 (0.0-0.1) 04/25/22 03:30 Add Manual Diff Complete 04/23/22 04:19 Total Counted 100 04/23/22 04:19 Seg Neutrophils % 84.0 % (40.0-70.0) H 04/25/22 03:30 Seg Neuts % (Manual) 74.0 % (40.0-70.0) H 04/23/22 04:19 Band Neutrophils % 2.0 % 04/23/22 04:19 Lymphocytes % (Manual) 10.0 % (13.4-35.0) L 04/23/22 04:19 Reactive Lymphs % (Man) 0 % 04/23/22 04:19 Monocytes % (Manual) 7.0 % (0.0-7.3) 04/23/22 04:19 Eosinophils % (Manual) 7.0 % (0.0-4.3) H 04/23/22 04:19 Basophils % (Manual) 0 % (0.0-1.8) 04/23/22 04:19 Metamyelocytes % 0 % 04/23/22 04:19 Myelocytes % 0 % 04/23/22 04:19 Promyelocytes % 0 % 04/23/22 04:19 Blast Cells % 0 % 04/23/22 04:19 Nucleated RBC % Not Reportable 04/23/22 04:19 Seg Neutrophils # 16.5 K/mm3 (1.8-7.7) H 04/25/22 03:30 Seg Neutrophils # Man 8.0 K/mm3 (1.8-7.7) H 04/23/22 04:19 Band Neutrophils # 0.2 K/mm3 04/23/22 04:19 Lymphocytes # (Manual) 1.1 K/mm3 (1.2-5.4) L 04/23/22 04:19 Abs React Lymphs (Man) 0.0 K/mm3 04/23/22 04:19 Monocytes # (Manual) 0.8 K/mm3 (0.0-0.8) 04/23/22 04:19 Eosinophils # (Manual) 0.8 K/mm3 (0.0-0.4) H 04/23/22 04:19 Basophils # (Manual) 0.0 K/mm3 (0.0-0.1) 04/23/22 04:19 Metamyelocytes # 0.0 K/mm3 04/23/22 04:19 Myelocytes # 0.0 K/mm3 04/23/22 04:19 Promyelocytes # 0.0 K/mm3 04/23/22 04:19 Blast Cells # 0.0 K/mm3 04/23/22 04:19 WBC Morphology Not Reportable 04/23/22 04:19 Hypersegmented Neuts Not Reportable 04/23/22 04:19 Hyposegmented Neuts Not Reportable 04/23/22 04:19 Hypogranular Neuts Not Reportable 04/23/22 04:19 Smudge Cells Not Reportable 04/23/22 04:19 Toxic Granulation Not Reportable 04/23/22 04:19 Toxic Vacuolation Not Reportable 04/23/22 04:19 Dohle Bodies Not Reportable 04/23/22 04:19 Pelger-Huet Anomaly Not Reportable 04/23/22 04:19 Regla Rods Not Reportable 04/23/22 04:19 Platelet Estimate Consistent w auto 04/23/22 04:19 Clumped Platelets Not Reportable 04/23/22 04:19 Plt Clumps, EDTA Not Reportable 04/23/22 04:19 Large Platelets Not Reportable 04/23/22 04:19 Giant Platelets Not Reportable 04/23/22 04:19 Platelet Satelliting Not Reportable 04/23/22 04:19 Plt Morphology Comment Not Reportable 04/23/22 04:19 RBC Morphology Not Reportable 04/23/22 04:19 Dimorphic RBCs Not Reportable 04/23/22 04:19 Polychromasia Not Reportable 04/23/22 04:19 Hypochromasia Not Reportable 04/23/22 04:19 Poikilocytosis Not Reportable 04/23/22 04:19 Anisocytosis Not Reportable 04/23/22 04:19 Microcytosis Not Reportable 04/23/22 04:19 Macrocytosis Not Reportable 04/23/22 04:19 Spherocytes Not Reportable 04/23/22 04:19 Pappenheimer Bodies Not Reportable 04/23/22 04:19 Sickle Cells Not Reportable 04/23/22 04:19 Target Cells Not Reportable 04/23/22 04:19 Tear Drop Cells Not Reportable 04/23/22 04:19 Ovalocytes Not Reportable 04/23/22 04:19 Helmet Cells Not Reportable 04/23/22 04:19 [place] Bodies Not Reportable 04/23/22 04:19 [place] Rings Not Reportable 04/23/22 04:19 [place] Cells Not Reportable 04/23/22 04:19 Bite Cells Not Reportable 04/23/22 04:19 Crenated Cell Not Reportable 04/23/22 04:19 Elliptocytes Not Reportable 04/23/22 04:19 Acanthocytes (Spur) Not Reportable 04/23/22 04:19 Rouleaux Not Reportable 04/23/22 04:19 Hemoglobin C Crystals Not Reportable 04/23/22 04:19 Schistocytes Not Reportable 04/23/22 04:19 Malaria parasites Not Reportable 04/23/22 04:19 [place] Bodies Not Reportable 04/23/22 04:19 Hem Pathologist Commnt No 04/23/22 04:19 PT 15.6 Sec. (12.2-14.9) H 04/18/22 Unknown INR 1.08 (0.87-1.13) 04/18/22 Unknown APTT 28.6 Sec. (24.2-36.6) 04/18/22 Unknown Activated Coag Time 179 (74-137) H 04/21/22 12:14 Heparin Anti-Xa Level 0.16 U.I./ml (0.3-0.7) L 04/21/22 04:00 ABG pH 7.415 pH Units (7.350-7.450) 04/25/22 05:09 ABG pCO2 51.4 mm Hg 04/25/22 05:09 ABG pO2 85.0 mm Hg (80.0-90.0) 04/25/22 05:09 ABG HCO3 32.2 mmol/L (20.0-26.0) H 04/25/22 05:09 ABG O2 Saturation 96.9 % (95.0-99.0) 04/25/22 05:09 ABG O2 Content 13.3 (0.0-44) 04/25/22 05:09 ABG Base Excess 6.7 mmol/L (-2.0-3.0) H 04/25/22 05:09 ABG Hemoglobin 9.9 gm/dl (14.0-18.0) L 04/25/22 05:09 ABG Carboxyhemoglobin 1.6 % (0.0-5.0) 04/25/22 05:09 ABG Methemoglobin 0.5 % (0.0-1.5) 04/25/22 05:09 Oxyhemoglobin 94.9 % (95.0-99.0) L 04/25/22 05:09 FiO2 35 % 04/25/22 05:09 Sodium 151 mmol/L (137-145) H 04/25/22 03:30 Potassium 3.5 mmol/L (3.6-5.0) L 04/25/22 03:30 Chloride 108.6 mmol/L (98-107) H 04/25/22 03:30 Carbon Dioxide 31 mmol/L (22-30) H 04/25/22 03:30 Anion Gap 15 mmol/L 04/25/22 03:30 BUN 27 mg/dL (9-20) H 04/25/22 03:30 Creatinine 1.9 mg/dL (0.8-1.3) H 04/25/22 03:30 Estimated GFR 43 ml/min 04/25/22 03:30 BUN/Creatinine Ratio 14 % 04/25/22 03:30 Glucose 144 mg/dL (75-100) H 04/25/22 03:30 POC Glucose 135 mg/dL (70-105) H 04/25/22 04:38 Lactic Acid 1.90 mmol/L (0.7-2.0) 04/21/22 04:20 Calcium 8.3 mg/dL (8.4-10.2) L 04/25/22 03:30 Phosphorus 3.10 mg/dL (2.5-4.5) 04/25/22 03:30 Magnesium 2.20 mg/dL (1.7-2.3) 04/25/22 03:30 Total Bilirubin 0.70 mg/dL (0.1-1.2) 04/24/22 06:00 AST 35 units/L (5-40) 04/24/22 06:00 ALT 99 units/L (7-56) H 04/24/22 06:00 Alkaline Phosphatase 141 units/L (35-129) H 04/24/22 06:00 Total Creatine Kinase 973 units/L (55-170) H 04/22/22 04:00 CK-MB (CK-2) 28.5 ng/mL (0.0-4.0) H 04/19/22 07:11 CK-MB (CK-2) Rel Index 0.8 (0-4) 04/19/22 07:11 Troponin T 2.980 ng/mL (0.00-0.029) H* 04/19/22 07:11 Total Protein 6.2 g/dL (6.3-8.2) L 04/24/22 06:00 Albumin 2.2 g/dL (3.9-5) L 04/24/22 06:00 Albumin/Globulin Ratio 0.6 % 04/24/22 06:00 Triglycerides 230 mg/dL (2-149) H 04/23/22 04:19 Cholesterol 106 mg/dL (50-199) 04/17/22 19:56 LDL Cholesterol Direct 57 mg/dL (50-130) 04/17/22 19:56 HDL Cholesterol 40 mg/dL (40-59) 04/17/22 19:56 Cholesterol/HDL Ratio 2.65 % 04/17/22 19:56 Procalcitonin 44.70 ng/mL (<0.15) 04/22/22 04:32 Urine Color Yellow (Yellow) 04/19/22 02:08 Urine Turbidity Slightly cloudy (Clear) 04/19/22 02:08 Urine pH 5.0 (5.0-7.0) 04/19/22 02:08 Ur Specific [place] 1.005 (1.003-1.030) 04/19/22 02:08 Urine Protein 30 mg/dl mg/dL (Negative) 04/19/22 02:08 Urine Glucose (UA) Negative mg/dL (Negative) 04/19/22 02:08 Urine Ketones Negative mg/dL (Negative) 04/19/22 02:08 Urine Blood Large (Negative) A 04/19/22 02:08 Urine Nitrite Negative (Negative) 04/19/22 02:08 Ur Reducing Substances Not Reportable 04/19/22 02:08 Urine Bilirubin Negative (Negative) 04/19/22 02:08 Urine Ictotest Not Reportable 04/19/22 02:08 Urine Urobilinogen 0.2 mg/dL (<2.0) 04/19/22 02:08 Ur Leukocyte Esterase Negative (Negative) 04/19/22 02:08 Urine WBC (Auto) 88.0 /HPF (0.0-6.0) H 04/19/22 02:08 Urine RBC (Auto) 60.0 /HPF (0.0-6.0) 04/19/22 02:08 Urine Bacteria (Auto) 2+ /HPF (Negative) 04/19/22 02:08 Urine WBC Clumps 3+ /HPF 04/19/22 02:08 RBC Casts 34 /LPF 04/19/22 02:08 Urine Mucus 1+ /HPF 04/19/22 02:08 Urine Yeast (Budding) 3+ /HPF 04/19/22 02:08 Urine Eosinophils None seen (None Seen) 04/19/22 02:08 Urine Creatinine 90.9 mg/dL (0.1-20.0) H 04/19/22 02:08 Urine Sodium 54 mmol/L 04/19/22 02:08 Blood Type A POSITIVE 04/21/22 04:37 Antibody Screen Negative 04/21/22 04:37 [place]/IV: Voiding Method Indwelling Catheter Active Medications - Current Medications Current Medications: Generic Name Dose Route Start Last Admin Trade Name Freq PRN Reason Stop Dose Admin Acetaminophen 650 mg 04/17/22 19:48 04/24/22 23:41 Acetaminophen 325 Mg Tab PO 650 mg Q6H PRN Administration Pain MILD(1-3)/Fever >100.5/CHE Albuterol 2.5 mg 04/17/22 19:48 Albuterol 2.5 Mg/3 Ml Nebu IH Q3HRT PRN Shortness Of Breath Amiodarone HCl 200 mg 04/21/22 13:00 04/25/22 10:00 Amiodarone 200 Mg Tab PO 200 mg BID FLACO Administration Aspirin 81 mg 04/20/22 12:00 04/25/22 10:00 Aspirin 81 Mg Tab Chew FEEDTUBE 81 mg QDAY FLACO Administration Atorvastatin Calcium 20 mg 04/20/22 22:00 04/24/22 21:20 Atorvastatin 20 Mg Tab FEEDTUBE 20 mg QHS FLACO Administration Dextrose 0 ml 04/17/22 23:46 Dextrose 50% In Water (25gm) 50 Ml Syringe IV Q30MIN PRN Hypoglycemia Protocol Famotidine 20 mg 04/20/22 10:00 04/25/22 10:00 Famotidine 20 Mg Tab FEEDTUBE 20 mg DAILY FLACO Administration Fentanyl 50 mcg 04/17/22 20:22 04/18/22 03:52 Fentanyl 100 Mcg/2 Ml Inj IV 50 mcg Q10MIN PRN Administration ANALGESIA Heparin Sodium (Porcine) 5,000 unit 04/21/22 22:00 04/25/22 10:00 Heparin 5,000 Unit/1 Ml Vial SUB-Q 5,000 unit Q12HR FLACO Administration Hydrophilic Ointment 1 applic 04/18/22 06:02 Lip Therapy Vaseline TP Q2HR PRN Dry Lips NORepinephrine/NS 8 MG-250 ML 8 mg in 250 mls @ 3.75 mls/hr 04/17/22 21:00 04/21/22 19:12 Norepinephrine/Ns 8 Mg-250 Ml (Double Conc) IV 0 mcg/min TITRATE FLACO 0 mls/hr Titration Protocol 2 MCG/MIN Fentanyl Citrate 2,000 mcg in 100 mls @ 5.443 mls/hr 04/17/22 21:00 04/25/22 10:03 Fentanyl Drip Premix IV 3 mcg/kg/hr TITR FLACO 16.329 mls/hr Administration Protocol 1 MCG/KG/HR Propofol 1,000 mg in 100 mls @ 3.456 mls/hr 04/18/22 07:00 04/25/22 06:48 Diprivan 10 Mg/Ml IV 20 mcg/kg/min TITR FLACO 13.824 mls/hr Administration Protocol 5 MCG/KG/MIN Phenylephrine HCl 100 mg/ 100 mls @ 3 mls/hr 04/18/22 07:30 Sodium Chloride IV TITR FLACO Protocol 50 MCG/MIN Levofloxacin/Dextrose 500 mg in 100 mls @ 100 mls/hr 04/20/22 22:00 04/24/22 21:19 Levaquin 500mg/100ml IV 04/25/22 21:59 100 mls/hr Q48H [facility] Administration Protocol Vasopressin 20 unit/ Sodium 101 mls @ 12.12 mls/hr 04/21/22 15:00 04/22/22 15:15 Chloride IV 0 units/min DIRECT FLACO 0 mls/hr Infusion 0.04 UNITS/MIN Dobutamine HCl 500 mg/ 250 mls @ 8.64 mls/hr 04/22/22 14:00 04/25/22 00:49 Dextrose IV 2.5 mcg/kg/min DIRECT FLACO 8.64 mls/hr Administration 2.5 MCG/KG/MIN Insulin Glargine 40 units 04/23/22 22:00 04/24/22 21:20 Insulin Glargine 100 Units/Ml SUB-Q 40 units QHS [facility] Administration Insulin Human Lispro 0 unit 04/18/22 00:00 04/25/22 05:00 Insulin Lispro 100 Unit/Ml SUB-Q Not Given Q6HR [facility] Protocol Insulin Human Lispro 5 unit 04/23/22 12:00 04/25/22 05:01 Insulin Lispro 100 Unit/Ml SUB-Q Not Given Q6HR [facility] Multi-Ingred Cream/Lotion/Oil/Oint 1 applic 04/18/22 06:02 Mineral Oil/Petrolatum, White Ophth Oint 3.5 Gm OU Q4HR PRN Dry Eye(s) Oxycodone/Acetaminophen 1 tab 04/22/22 11:05 Oxycodone /Acetaminophen 5-325mg Tab FEEDTUBE Q6H PRN Pain, Moderate (4-6) Potassium Chloride 10 meq 04/25/22 12:00 Potassium Chloride 20 Meq Packet FEEDTUBE 04/25/22 12:01 ONCE ONE Quetiapine Fumarate 100 mg 04/22/22 22:00 04/25/22 10:00 Quetiapine 100 Mg Tab FEEDTUBE 100 mg BID FLACO Administration Senna/Docusate Sodium 1 tab 04/18/22 10:00 04/25/22 10:00 Sennosides/Docusate Sodium 8.6/50 Mg Tab FEEDTUBE 1 tab BID FLACO Administration Sodium Chloride 10 ml 04/17/22 22:00 04/25/22 10:02 Sodium Chloride 0.9% 10 Ml Flush Syringe IV 10 ml BID FLACO Administration Sodium Chloride 10 ml 04/17/22 19:48 Sodium Chloride 0.9% 10 Ml Flush Syringe IV PRN PRN LINE FLUSH Nutrition/Malnutrition Assess - Dietary Evaluation Nutrition/Malnutrition Findings: Nutrition Notes Start: 04/18/22 08:52 Freq: Status: Active Protocol: Document 04/22/22 10:36 ROMELIA (Rec: 04/22/22 10:49 ROMELIA [id number]) Nutrition Notes Initial or Follow up Brief Note Current Diagnosis Acute Kidney Injury,Diabetes, Sepsis,Hypertension, Respiratory Failure Other Pertinent Diagnosis s/p PEA w/ROSC, HFrEF, Pneumonia, Metabolic Acidosis, Cardiogenic Shock, .. Current Diet TF-Nepro w/CARBSTEADY @ 35 ml/ hr (from D 04/21). Height 5 ft 9 in Weight 115.2 kg [place] Body Weight (kg) 72.72 BMI 37.5 Weight change and time frame No body weight change reported in 4 days. Weight Status Obese Subjective/Other Information RD consult for TF tolerance/ continuation assessment. TF continues as prescribed, no further information available at the time. Pt continues on Mechanical Ventilation, O2 saturation @ 95%, according to Physical Assessment History notes. Percent of energy/protein needs met: Prescribed TF-Nepro w/ CARBSTEADY @ 35 ml/hr provides for energy/protein needs (1, 500 Kcal/68 g) during LOS, 77% Kcal; 90% AA. Including 365 Kcal from Propofol: 95% Kcal; 90% AA. #2 Nutrition Diagnosis Altered nutrition-related laboratory values Comments: Prescribed TF-Nepro w/ CARBSTEADY @ 35 ml/hr provides for energy/protein needs (1, 500 Kcal/68 g) during LOS, 77% Kcal; 90% AA. Including 365 Kcal from Propofol: 95% Kcal; 90% AA. Diagnosis Progress(for reassessment Resolved documentation) #1 Nutrition Diagnosis Inadequate oral intake Diagnosis Progress(for reassessment Continues documentation) Is patient on ventilator? Yes Is Patient Ambulatory and/or Out of Bed No REE-([facility]-confined to bed) 2323.608 Kcal/Kg value to use for calculation 17 Approximate Energy Requirements Using 1958 kcal/Kg Calculation Used for Recommendations Kcal/kg Additional Notes Protein: 0.8-1.2 g/Kg AdjBW; 75-113 g/day. Fluids: 1 ml/Kcal, or as per MD. Nutrition Intervention Nutrition Support: Continue TF-Nepro w/CARBSTEADY @ 35 ml/hr. Flush: 220 ml water Q 4 hr, or as per MD. Kcal 1,500 Protein (gm) 68 Carbohydrates (gm) 134 Fat (gm) 80 Fluid (mL) 606 Fiber (gm) 11 % RDI: 77% Kcal; 90% AA. Goal #1 Provide at least 75% of energy /protein needs through Enteral Feeding during LOS. Follow-Up By: 04/29/22 Additional Comments Continue monitoring TF tolerance, ventilation status, vasopressors, and BM. <LISA TOWNSEND - Last Filed: 05/04/22 11:32> History Interval history: I saw and evaluated the patient. I agree with the findings and the plan of care as documented in the Nurse Practitioner's~note, with the following corrections and additions. Hospitalist Physical - Constitutional Vitals: Temp Pulse Resp BP Pulse Ox 98.7 F 58 L 31 H 144/80 98 05/04/22 07:13 05/04/22 10:01 05/04/22 10:01 05/04/22 10:01 05/04/22 10:01 HEART Score - HEART Score Troponin: Troponin T 2.980 ng/mL (0.00-0.029) H* 04/19/22 07:11 Results - Labs CBC & Chem 7: 05/03/22 04:46 05/04/22 03:48 Labs: Laboratory Last Values WBC 16.4 K/mm3 (4.5-11.0) H 05/03/22 04:46 RBC 3.08 M/mm3 (3.65-5.03) L 05/03/22 04:46 Hgb 8.8 gm/dl (11.8-15.2) L 05/03/22 04:46 Hct 27.7 % (35.5-45.6) L 05/03/22 04:46 MCV 90 fl (84-94) 05/03/22 04:46 MCH 29 pg (28-32) 05/03/22 04:46 MCHC 32 % (32-34) 05/03/22 04:46 RDW 15.0 % (13.2-15.2) 05/03/22 04:46 Plt Count 596 K/mm3 (140-440) H 05/03/22 04:46 Lymph % (Auto) 5.7 % (13.4-35.0) L 04/29/22 04:20 Bureau % (Auto) 7.8 % (0.0-7.3) H 04/29/22 04:20 Eos % (Auto) 3.9 % (0.0-4.3) 04/29/22 04:20 Baso % (Auto) 0.6 % (0.0-1.8) 04/29/22 04:20 Lymph # (Auto) 1.1 K/mm3 (1.2-5.4) L 04/29/22 04:20 Bureau # (Auto) 1.5 K/mm3 (0.0-0.8) H 04/29/22 04:20 Eos # (Auto) 0.8 K/mm3 (0.0-0.4) H 04/29/22 04:20 Baso # (Auto) 0.1 K/mm3 (0.0-0.1) 04/29/22 04:20 Add Manual Diff Complete 04/23/22 04:19 Total Counted 100 04/23/22 04:19 Seg Neutrophils % 82.0 % (40.0-70.0) H 04/29/22 04:20 Seg Neuts % (Manual) 74.0 % (40.0-70.0) H 04/23/22 04:19 Band Neutrophils % 2.0 % 04/23/22 04:19 Lymphocytes % (Manual) 10.0 % (13.4-35.0) L 04/23/22 04:19 Reactive Lymphs % (Man) 0 % 04/23/22 04:19 Monocytes % (Manual) 7.0 % (0.0-7.3) 04/23/22 04:19 Eosinophils % (Manual) 7.0 % (0.0-4.3) H 04/23/22 04:19 Basophils % (Manual) 0 % (0.0-1.8) 04/23/22 04:19 Metamyelocytes % 0 % 04/23/22 04:19 Myelocytes % 0 % 04/23/22 04:19 Promyelocytes % 0 % 04/23/22 04:19 Blast Cells % 0 % 04/23/22 04:19 Nucleated RBC % Not Reportable 04/23/22 04:19 Seg Neutrophils # 16.3 K/mm3 (1.8-7.7) H 04/29/22 04:20 Seg Neutrophils # Man 8.0 K/mm3 (1.8-7.7) H 04/23/22 04:19 Band Neutrophils # 0.2 K/mm3 04/23/22 04:19 Lymphocytes # (Manual) 1.1 K/mm3 (1.2-5.4) L 04/23/22 04:19 Abs React Lymphs (Man) 0.0 K/mm3 04/23/22 04:19 Monocytes # (Manual) 0.8 K/mm3 (0.0-0.8) 04/23/22 04:19 Eosinophils # (Manual) 0.8 K/mm3 (0.0-0.4) H 04/23/22 04:19 Basophils # (Manual) 0.0 K/mm3 (0.0-0.1) 04/23/22 04:19 Metamyelocytes # 0.0 K/mm3 04/23/22 04:19 Myelocytes # 0.0 K/mm3 04/23/22 04:19 Promyelocytes # 0.0 K/mm3 04/23/22 04:19 Blast Cells # 0.0 K/mm3 04/23/22 04:19 WBC Morphology Not Reportable 04/23/22 04:19 Hypersegmented Neuts Not Reportable 04/23/22 04:19 Hyposegmented Neuts Not Reportable 04/23/22 04:19 Hypogranular Neuts Not Reportable 04/23/22 04:19 Smudge Cells Not Reportable 04/23/22 04:19 Toxic Granulation Not Reportable 04/23/22 04:19 Toxic Vacuolation Not Reportable 04/23/22 04:19 Dohle Bodies Not Reportable 04/23/22 04:19 Pelger-Huet Anomaly Not Reportable 04/23/22 04:19 Regla Rods Not Reportable 04/23/22 04:19 Platelet Estimate Consistent w auto 04/23/22 04:19 Clumped Platelets Not Reportable 04/23/22 04:19 Plt Clumps, EDTA Not Reportable 04/23/22 04:19 Large Platelets Not Reportable 04/23/22 04:19 Giant Platelets Not Reportable 04/23/22 04:19 Platelet Satelliting Not Reportable 04/23/22 04:19 Plt Morphology Comment Not Reportable 04/23/22 04:19 RBC Morphology Not Reportable 04/23/22 04:19 Dimorphic RBCs Not Reportable 04/23/22 04:19 Polychromasia Not Reportable 04/23/22 04:19 Hypochromasia Not Reportable 04/23/22 04:19 Poikilocytosis Not Reportable 04/23/22 04:19 Anisocytosis Not Reportable 04/23/22 04:19 Microcytosis Not Reportable 04/23/22 04:19 Macrocytosis Not Reportable 04/23/22 04:19 Spherocytes Not Reportable 04/23/22 04:19 Pappenheimer Bodies Not Reportable 04/23/22 04:19 Sickle Cells Not Reportable 04/23/22 04:19 Target Cells Not Reportable 04/23/22 04:19 Tear Drop Cells Not Reportable 04/23/22 04:19 Ovalocytes Not Reportable 04/23/22 04:19 Helmet Cells Not Reportable 04/23/22 04:19 [place] Bodies Not Reportable 04/23/22 04:19 [place] Rings Not Reportable 04/23/22 04:19 [place] Cells Not Reportable 04/23/22 04:19 Bite Cells Not Reportable 04/23/22 04:19 Crenated Cell Not Reportable 04/23/22 04:19 Elliptocytes Not Reportable 04/23/22 04:19 Acanthocytes (Spur) Not Reportable 04/23/22 04:19 Rouleaux Not Reportable 04/23/22 04:19 Hemoglobin C Crystals Not Reportable 04/23/22 04:19 Schistocytes Not Reportable 04/23/22 04:19 Malaria parasites Not Reportable 04/23/22 04:19 [place] Bodies Not Reportable 04/23/22 04:19 Hem Pathologist Commnt No 04/23/22 04:19 PT 15.6 Sec. (12.2-14.9) H 04/18/22 Unknown INR 1.08 (0.87-1.13) 04/18/22 Unknown APTT 28.6 Sec. (24.2-36.6) 04/18/22 Unknown Activated Coag Time 179 (74-137) H 04/21/22 12:14 Heparin Anti-Xa Level 0.16 U.I./ml (0.3-0.7) L 04/21/22 04:00 ABG pH 7.442 pH Units (7.350-7.450) 05/02/22 04:45 ABG pCO2 37.8 mm Hg 05/02/22 04:45 ABG pO2 83.1 mm Hg (80.0-90.0) 05/02/22 04:45 ABG HCO3 25.2 mmol/L (20.0-26.0) 05/02/22 04:45 ABG O2 Saturation 97.0 % (95.0-99.0) 05/02/22 04:45 ABG O2 Content 12.6 (0.0-44) 05/02/22 04:45 ABG Base Excess 1.1 mmol/L (-2.0-3.0) 05/02/22 04:45 ABG Hemoglobin 9.3 gm/dl (14.0-18.0) L 05/02/22 04:45 ABG Carboxyhemoglobin 1.4 % (0.0-5.0) 05/02/22 04:45 ABG Methemoglobin 0.4 % (0.0-1.5) 05/02/22 04:45 Oxyhemoglobin 95.2 % (95.0-99.0) 05/02/22 04:45 FiO2 30 % 05/02/22 04:45 Sodium 141 mmol/L (137-145) 05/04/22 03:48 Potassium 4.5 mmol/L (3.6-5.0) D 05/04/22 03:48 Chloride 110.5 mmol/L (98-107) H 05/04/22 03:48 Carbon Dioxide 22 mmol/L (22-30) 05/04/22 03:48 Anion Gap 13 mmol/L 05/04/22 03:48 BUN 30 mg/dL (9-20) H 05/04/22 03:48 Creatinine 1.0 mg/dL (0.8-1.3) 05/04/22 03:48 Estimated GFR > 60 ml/min 05/04/22 03:48 BUN/Creatinine Ratio 30 % 05/04/22 03:48 Glucose 123 mg/dL (75-100) H 05/04/22 03:48 POC Glucose 117 mg/dL (70-105) H 05/04/22 05:03 Lactic Acid 1.90 mmol/L (0.7-2.0) 04/21/22 04:20 Calcium 8.1 mg/dL (8.4-10.2) L 05/04/22 03:48 Phosphorus 3.20 mg/dL (2.5-4.5) 05/03/22 04:46 Magnesium 2.10 mg/dL (1.7-2.3) 05/03/22 04:46 Total Bilirubin 0.40 mg/dL (0.1-1.2) 05/04/22 03:48 Direct Bilirubin 0.3 mg/dL (0-0.2) H 04/30/22 04:25 Indirect Bilirubin 0.1 mg/dL 04/30/22 04:25 AST 88 units/L (5-40) H 05/04/22 03:48 ALT 122 units/L (7-56) H 05/04/22 03:48 Alkaline Phosphatase 171 units/L (35-129) H 05/04/22 03:48 Total Creatine Kinase 61 units/L (55-170) 04/29/22 04:20 CK-MB (CK-2) 28.5 ng/mL (0.0-4.0) H 04/19/22 07:11 CK-MB (CK-2) Rel Index 0.8 (0-4) 04/19/22 07:11 Troponin T 2.980 ng/mL (0.00-0.029) H* 04/19/22 07:11 C-Reactive Protein 15.30 mg/dL (0.00-1.30) H 04/28/22 08:20 Total Protein 7.2 g/dL (6.3-8.2) 05/04/22 03:48 Albumin 2.2 g/dL (3.9-5) L 05/04/22 03:48 Albumin/Globulin Ratio 0.4 % 05/04/22 03:48 Triglycerides 214 mg/dL (2-149) H 05/01/22 04:00 Cholesterol 106 mg/dL (50-199) 04/17/22 19:56 LDL Cholesterol Direct 57 mg/dL (50-130) 04/17/22 19:56 HDL Cholesterol 40 mg/dL (40-59) 04/17/22 19:56 Cholesterol/HDL Ratio 2.65 % 04/17/22 19:56 Procalcitonin 2.90 ng/mL (<0.15) 04/28/22 Unknown Urine Color Straw (Yellow) 04/28/22 08:35 Urine Turbidity Clear (Clear) 04/28/22 08:35 Urine pH 6.0 (5.0-7.0) 04/28/22 08:35 Ur Specific [place] 1.000 (1.003-1.030) L 04/28/22 08:35 Urine Protein 300 mg/dl mg/dL (Negative) 04/28/22 08:35 Urine Glucose (UA) Negative mg/dL (Negative) 04/28/22 08:35 Urine Ketones Negative mg/dL (Negative) 04/28/22 08:35 Urine Blood 3+ (Negative) 04/28/22 08:35 Urine Nitrite Negative (Negative) 04/28/22 08:35 Ur Reducing Substances Not Reportable 04/28/22 08:35 Urine Bilirubin Negative (Negative) 04/28/22 08:35 Urine Ictotest Not Reportable 04/28/22 08:35 Urine Urobilinogen < 2.0 mg/dL (<2.0) 04/28/22 08:35 Ur Leukocyte Esterase Small (Negative) 04/28/22 08:35 Urine WBC (Auto) 21.0 /HPF (0.0-6.0) H 04/28/22 08:35 Urine RBC (Auto) 9.0 /HPF (0.0-6.0) 04/28/22 08:35 Urine Bacteria (Auto) 2+ /HPF (Negative) 04/19/22 02:08 Urine WBC Clumps 3+ /HPF 04/19/22 02:08 RBC Casts 34 /LPF 04/19/22 02:08 Urine Mucus Few /HPF 04/28/22 08:35 Urine Yeast (Budding) 3+ /HPF 04/19/22 02:08 Urine Eosinophils None seen (None Seen) 04/19/22 02:08 Urine Creatinine 90.9 mg/dL (0.1-20.0) H 04/19/22 02:08 Urine Sodium 54 mmol/L 04/19/22 02:08 Digoxin 0.7 ng/mL (0.9-2.0) L 05/03/22 04:46 Coronavirus (PCR) Positive (Negative) A 04/29/22 09:38 Influenza A (RT-PCR) Negative (Negative) 04/29/22 11:44 Influenza B (RT-PCR) Negative (Negative) 04/29/22 11:44 Blood Type A POSITIVE 04/21/22 04:37 Antibody Screen Negative 04/21/22 04:37 Microbiology: Microbiology 04/28/22 07:26 Tracheal Aspirate Sputum Culture - Final [place]/IV: Voiding Method Urinal Active Medications - Current Medications Current Medications: Generic Name Dose Route Start Last Admin Trade Name Freq PRN Reason Stop Dose Admin Acetaminophen 650 mg 04/17/22 19:48 04/28/22 21:38 Acetaminophen 325 Mg Tab PO 650 mg Q6H PRN Administration Pain MILD(1-3)/Fever >100.5/CHE Albuterol 2.5 mg 04/17/22 19:48 Albuterol 2.5 Mg/3 Ml Nebu IH Q3HRT PRN Shortness Of Breath Ascorbic Acid 500 mg 05/04/22 22:00 Ascorbic Acid 500 Mg Tab PO 05/10/22 10:01 BID FLACO Aspirin 81 mg 08/23/22 10:00 Aspirin 81 Mg Tab Chew PO QDAY [facility] Atorvastatin Calcium 20 mg 05/04/22 22:00 Atorvastatin 20 Mg Tab PO QHS [facility] Dexamethasone 8 mg 04/30/22 10:00 05/04/22 09:27 Dexamethasone 4 Mg/Ml Vial IV 05/09/22 10:01 8 mg DAILY [facility] Administration Dextrose 0 ml 04/17/22 23:46 Dextrose 50% In Water (25gm) 50 Ml Syringe IV Q30MIN PRN Hypoglycemia Protocol Digoxin 0.125 mg 05/04/22 17:00 Digoxin 0.125 Mg Tab PO DAILY@1700 [facility] Docusate Sodium 100 mg 05/04/22 22:00 Docusate Sodium 100 Mg/10 Ml Oral Liqd PO BID [facility] Doxazosin Mesylate 1 mg 05/04/22 22:00 Doxazosin 1 Mg Tab PO QHS [facility] Enoxaparin Sodium 120 mg 05/02/22 10:00 05/04/22 09:26 Enoxaparin 120 Mg/0.8 Ml Inj SUB-Q 120 mg Q12HR [facility] Administration Protocol Famotidine 20 mg 05/04/22 22:00 Famotidine 20 Mg Tab PO BID [facility] Fentanyl 50 mcg 04/17/22 20:22 04/30/22 22:41 Fentanyl 100 Mcg/2 Ml Inj IV 50 mcg Q10MIN PRN Administration ANALGESIA Furosemide 20 mg 05/04/22 18:00 Furosemide 20 Mg Tab PO 0600,1800 [facility] Hydrophilic Ointment 1 applic 04/18/22 06:02 04/26/22 20:29 Lip Therapy Vaseline TP 1 applic Q2HR PRN Administration Dry Lips Cefepime HCl 2 gm in 100 mls @ 200 mls/hr 04/28/22 08:00 05/04/22 09:26 Cefepime/Ns 2 Gm/100 Ml IV 200 mls/hr Q8H [facility] Administration Protocol Remdesivir 100 mg/ Sodium 250 mls @ 500 mls/hr 05/01/22 14:00 05/03/22 15:45 Chloride IV 05/04/22 14:29 500 mls/hr Q24HR@1400 [facility] Administration Insulin Glargine 35 units 05/03/22 22:00 05/03/22 21:01 Insulin Glargine 100 Units/Ml SUB-Q 35 units QHS FLACO Administration Insulin Human Lispro 10 unit 05/04/22 11:30 Insulin Lispro 100 Unit/Ml SUB-Q ACHS FLACO Insulin Human Lispro 0 unit 05/04/22 11:30 Insulin Lispro 100 Unit/Ml SUB-Q ACHS [facility] Protocol Metoprolol Tartrate 12.5 mg 05/04/22 10:00 Metoprolol Tartrate 25 Mg Tab PO BID [facility] Multi-Ingred Cream/Lotion/Oil/Oint 1 applic 04/18/22 06:02 Mineral Oil/Petrolatum, White Ophth Oint 3.5 Gm OU Q4HR PRN Dry Eye(s) Oxycodone/Acetaminophen 1 tab 05/04/22 10:00 Oxycodone /Acetaminophen 5-325mg Tab PO Q6H PRN Pain, Moderate (4-6) Senna/Docusate Sodium 2 tab 05/04/22 10:00 05/04/22 09:46 Sennosides/Docusate Sodium 8.6/50 Mg Tab PO Not Given BID FLACO Sodium Chloride 10 ml 04/17/22 22:00 05/04/22 09:28 Sodium Chloride 0.9% 10 Ml Flush Syringe IV 10 ml BID FLACO Administration Sodium Chloride 10 ml 04/17/22 19:48 Sodium Chloride 0.9% 10 Ml Flush Syringe IV PRN PRN LINE FLUSH Sodium Chloride 50 ml 04/30/22 09:00 05/03/22 15:45 Sodium Chloride 0.9% 50 Ml Ivpb IV 05/04/22 14:01 50 ml Q24HR@1400 FLACO Administration Zinc Sulfate 220 mg 04/30/22 22:00 05/04/22 09:27 Zinc Sulfate 220 Mg Cap PO 05/10/22 10:01 220 mg BID FLACO Administration Nutrition/Malnutrition Assess - Dietary Evaluation Nutrition/Malnutrition Findings: Nutrition Notes Start: 04/18/22 08:52 Freq: Status: Active Protocol: Document 04/29/22 11:29 ROMELIA (Rec: 04/29/22 11:55 ROMELIA [id number]) Nutrition Notes Initial or Follow up Reassessment Current Diagnosis Acute Kidney Injury,Diabetes, Sepsis,Hypertension, Respiratory Failure Other Pertinent Diagnosis s/p PEA w/ROSC, HFrEF, Pneumonia, Transaminitis, Rabdomyolisis, .. Current Diet TF-Nepro w/CARBSTEADY @ 35 ml/ hr (from D 04/21). Labs/Tests 04/29: BUN 30, Crea 1.6, Glu 236, Ca 8.1. Pertinent Medications 04/29: Humalog 4U, Propofol @ 3.456 ml/hr (91 Kcal), mothers nutritionally unremarkable. Height 5 ft 9 in Weight 115.2 kg [place] Body Weight (kg) 72.72 BMI 37.5 Weight change and time frame No body weight change reported in 11 days. Weight Status Obese Subjective/Other Information RD consult for routine F/U on TF tolerance/continuation assessment. TF continues as prescribed, no further information available at the time. Pt continues on Mechanical Ventilation, O2 saturation @ 100%, according to Physical Assessment History notes. Pt remains incontinent, according to Physical Assessment History notes. Pt presents blisters on the groin and on hand, according to Physical Assessment History notes. Percent of energy/protein needs met: Prescribed TF-Nepro w/ CARBSTEADY @ 35 ml/hr provides for energy/protein needs (1, 500 Kcal/68 g) during LOS, 77% Kcal; 90% AA. Including 91 Kcal from Propofol: 81% Kcal; 90% AA. Burn Absent Trauma Absent GI Symptoms None Food Allergy No Skin Integrity/Comment Blisters on the groin and on hand. Current % PO Other Minimum of two criteria No Fluid Accumulation N/A Reduced Quality Management Coordinator Strength N/A (non-severe) Protein-Calorie Malnutrition N\A #1 Nutrition Diagnosis Inadequate oral intake Diagnosis Progress(for reassessment Continues documentation) Is patient on ventilator? Yes Is Patient Ambulatory and/or Out of Bed No REE-([facility]-confined to bed) 2323.608 Kcal/Kg value to use for calculation 17 Approximate Energy Requirements Using 1958 kcal/Kg Calculation Used for Recommendations Kcal/kg Additional Notes Protein: 0.8-1.2 g/Kg AdjBW; 75-113 g/day. Fluids: 1 ml/Kcal, or as per MD. Nutrition Intervention Nutrition Support: Continue TF-Nepro w/CARBSTEADY @ 35 ml/hr. Flush: 220 ml water Q 4 hr, or as per MD. Kcal 1,500 Protein (gm) 68 Carbohydrates (gm) 134 Fat (gm) 80 Fluid (mL) 606 Fiber (gm) 11 % RDI: 77% Kcal; 90% AA. Goal #1 Provide at least 75% of energy /protein needs through Enteral Feeding during LOS. Follow-Up By: 05/06/22 Additional Comments Continue monitoring TF tolerance, ventilation status, vasopressors, and BM.
[2022-04-25] MEDS ORDERED: POTASSIUM CHLORIDE 20 MEQ PACKET FEEDTUBE ONE (12:00)
--- NOTE | 2022-04-25 13:04 | Progress Note ---
Assessment and Plan VINCENT /TASHA - Slight worsening BUN/Cr likely 2/2 superimposed prerenal azotemia as urine output also drastically decreased. Discussed with Pulm, wouls resume cautious IVF, f/u labs & Urine output Lytes - HyperNa also consistent with volume depletion. Begin Hypotonic IVF & increase Free water Flushes per TF Vitals - On Dobutamine, f/u per Cardiology S/p V Fib Arrest - Nonischemic Cardiomyopathy. F/u Mx Resp Failure - Vent weaning per Pulm May call for discussion on renal issues as necessary. Thanks Sanchez Strange MD Subjective Date of service: 04/25/22 Principal diagnosis: AHRF; AMS; Pneumonia; Shock; DM II; Severe Metabolic Acidosis Objective - Vital Signs Vital signs: Vital Signs - 12hr 04/25/22 04/25/22 04/25/22 01:00 01:31 02:00 Temperature Pulse Rate 106 H 107 H 107 H Pulse Rate [ From Monitor] Respiratory 16 15 16 Rate Respiratory Rate [no] Blood Pressure 107/65 107/65 120/69 O2 Sat by Pulse 97 98 97 Oximetry 04/25/22 04/25/22 04/25/22 02:31 03:00 03:30 Temperature 98.9 F Pulse Rate 103 H 109 H 95 H Pulse Rate [ From Monitor] Respiratory 17 16 16 Rate Respiratory Rate [no] Blood Pressure 120/69 120/69 O2 Sat by Pulse 99 99 99 Oximetry 04/25/22 04/25/22 04/25/22 03:31 04:00 04:31 Temperature Pulse Rate 95 H 94 H 93 H Pulse Rate [ From Monitor] Respiratory 16 16 16 Rate Respiratory Rate [no] Blood Pressure 116/68 108/67 108/67 O2 Sat by Pulse 99 97 99 Oximetry 04/25/22 04/25/22 04/25/22 05:00 05:31 06:00 Temperature Pulse Rate 97 H 103 H 103 H Pulse Rate [ From Monitor] Respiratory 16 16 14 Rate Respiratory Rate [no] Blood Pressure 118/67 118/67 120/70 O2 Sat by Pulse 98 99 97 Oximetry 04/25/22 04/25/22 04/25/22 06:31 07:00 07:31 Temperature Pulse Rate 109 H 104 H 105 H Pulse Rate [ From Monitor] Respiratory 17 16 16 Rate Respiratory Rate [no] Blood Pressure 118/67 125/75 120/70 O2 Sat by Pulse 99 98 99 Oximetry 04/25/22 04/25/22 04/25/22 07:49 08:00 08:01 Temperature 100.3 F H Pulse Rate 109 H 107 H Pulse Rate [ 105 H From Monitor] Respiratory 16 16 Rate Respiratory Rate [no] Blood Pressure 151/76 120/70 O2 Sat by Pulse 98 100 99 Oximetry 04/25/22 04/25/22 04/25/22 08:31 09:01 09:31 Temperature Pulse Rate 103 H 109 H 105 H Pulse Rate [ From Monitor] Respiratory 16 16 16 Rate Respiratory Rate [no] Blood Pressure 120/70 120/70 120/70 O2 Sat by Pulse 99 99 99 Oximetry 04/25/22 04/25/22 04/25/22 10:00 10:01 10:31 Temperature Pulse Rate 100 H 108 H Pulse Rate [ From Monitor] Respiratory 16 16 Rate Respiratory 16 Rate [no] Blood Pressure 120/70 120/70 O2 Sat by Pulse 99 99 Oximetry 04/25/22 04/25/22 04/25/22 11:01 11:31 11:46 Temperature Pulse Rate 115 H 120 H 108 H Pulse Rate [ From Monitor] Respiratory 17 16 Rate Respiratory Rate [no] Blood Pressure 120/70 120/70 99/86 O2 Sat by Pulse 99 99 100 Oximetry - General Appearance General appearance: sedated on ventilator Neck: no JVD Respiratory: Present: Other (Good air entry per vent) Cardiology: regular, S1S2 Gastrointestinal: obese - Lab 04/25/22 03:30 04/25/22 03:30 Most recent lab results ABG pH 7.415 pH Units (7.350-7.450) 04/25/22 05:09 ABG pCO2 51.4 mm Hg 04/25/22 05:09 ABG pO2 85.0 mm Hg (80.0-90.0) 04/25/22 05:09 ABG HCO3 32.2 mmol/L (20.0-26.0) H 04/25/22 05:09 ABG O2 Saturation 96.9 % (95.0-99.0) 04/25/22 05:09 Calcium 8.3 mg/dL (8.4-10.2) L 04/25/22 03:30 Phosphorus 3.10 mg/dL (2.5-4.5) 04/25/22 03:30 Magnesium 2.20 mg/dL (1.7-2.3) 04/25/22 03:30 Urine Creatinine 90.9 mg/dL (0.1-20.0) H 04/19/22 02:08 Urine Sodium 54 mmol/L 04/19/22 02:08 Medications & Allergies - Medications Allergies/Adverse Reactions: Allergies No Known Allergies Allergy (Unverified 04/17/22 19:30) Home Medications: Home Medications Medication Instructions Recorded Confirmed Last Taken Type AtorvaSTATin 40 mg PO QHS 04/22/22 04/22/22 Unknown History Humulin N 22 units SQ QHS 04/22/22 04/22/22 Unknown History amLODIPine 10 mg PO QAM 04/22/22 04/22/22 Unknown History glipiZIDE 20 mg PO BID 04/22/22 04/22/22 Unknown History metFORMIN 850 mg PO TID 04/22/22 04/22/22 Unknown History Active Medications: Generic Name Dose Route Start Last Admin Trade Name Freq PRN Reason Stop Dose Admin Acetaminophen 650 mg 04/17/22 19:48 04/24/22 23:41 Acetaminophen 325 Mg Tab PO 650 mg Q6H PRN Administration Pain MILD(1-3)/Fever >100.5/CHE Albuterol 2.5 mg 04/17/22 19:48 Albuterol 2.5 Mg/3 Ml Nebu IH Q3HRT PRN Shortness Of Breath Amiodarone HCl 200 mg 04/21/22 13:00 04/25/22 10:00 Amiodarone 200 Mg Tab PO 200 mg BID FLACO Administration Aspirin 81 mg 04/20/22 12:00 04/25/22 10:00 Aspirin 81 Mg Tab Chew FEEDTUBE 81 mg QDAY FLACO Administration Atorvastatin Calcium 20 mg 04/20/22 22:00 04/24/22 21:20 Atorvastatin 20 Mg Tab FEEDTUBE 20 mg QHS FLACO Administration Dextrose 0 ml 04/17/22 23:46 Dextrose 50% In Water (25gm) 50 Ml Syringe IV Q30MIN PRN Hypoglycemia Protocol Famotidine 20 mg 04/20/22 10:00 04/25/22 10:00 Famotidine 20 Mg Tab FEEDTUBE 20 mg DAILY FLACO Administration Fentanyl 50 mcg 04/17/22 20:22 04/18/22 03:52 Fentanyl 100 Mcg/2 Ml Inj IV 50 mcg Q10MIN PRN Administration ANALGESIA Heparin Sodium (Porcine) 5,000 unit 04/21/22 22:00 04/25/22 10:00 Heparin 5,000 Unit/1 Ml Vial SUB-Q 5,000 unit Q12HR FLACO Administration Hydrophilic Ointment 1 applic 04/18/22 06:02 Lip Therapy Vaseline TP Q2HR PRN Dry Lips Fentanyl Citrate 2,000 mcg in 100 mls @ 5.443 mls/hr 04/17/22 21:00 04/25/22 10:03 Fentanyl Drip Premix IV 3 mcg/kg/hr TITR FLACO 16.329 mls/hr Administration Protocol 1 MCG/KG/HR Propofol 1,000 mg in 100 mls @ 3.456 mls/hr 04/18/22 07:00 04/25/22 06:48 Diprivan 10 Mg/Ml IV 20 mcg/kg/min TITR FLACO 13.824 mls/hr Administration Protocol 5 MCG/KG/MIN Levofloxacin/Dextrose 500 mg in 100 mls @ 100 mls/hr 04/20/22 22:00 04/24/22 21:19 Levaquin 500mg/100ml IV 04/25/22 21:59 100 mls/hr Q48H FLACO Administration Protocol Dobutamine HCl 500 mg/ 250 mls @ 8.64 mls/hr 04/22/22 14:00 04/25/22 00:49 Dextrose IV 2.5 mcg/kg/min DIRECT FLACO 8.64 mls/hr Administration 2.5 MCG/KG/MIN Insulin Glargine 40 units 04/23/22 22:00 04/24/22 21:20 Insulin Glargine 100 Units/Ml SUB-Q 40 units QHS FLACO Administration Insulin Human Lispro 0 unit 04/18/22 00:00 04/25/22 12:29 Insulin Lispro 100 Unit/Ml SUB-Q 4 unit Q6HR FLACO Administration Protocol Insulin Human Lispro 5 unit 04/23/22 12:00 04/25/22 12:30 Insulin Lispro 100 Unit/Ml SUB-Q 5 unit Q6HR FLACO Administration Multi-Ingred Cream/Lotion/Oil/Oint 1 applic 04/18/22 06:02 Mineral Oil/Petrolatum, White Ophth Oint 3.5 Gm OU Q4HR PRN Dry Eye(s) Oxycodone/Acetaminophen 1 tab 04/22/22 11:05 Oxycodone /Acetaminophen 5-325mg Tab FEEDTUBE Q6H PRN Pain, Moderate (4-6) Quetiapine Fumarate 100 mg 04/22/22 22:00 04/25/22 10:00 Quetiapine 100 Mg Tab FEEDTUBE 100 mg BID FLACO Administration Senna/Docusate Sodium 1 tab 04/18/22 10:00 04/25/22 10:00 Sennosides/Docusate Sodium 8.6/50 Mg Tab FEEDTUBE 1 tab BID FLACO Administration Sodium Chloride 10 ml 04/17/22 22:00 04/25/22 10:02 Sodium Chloride 0.9% 10 Ml Flush Syringe IV 10 ml BID FLACO Administration Sodium Chloride 10 ml 04/17/22 19:48 Sodium Chloride 0.9% 10 Ml Flush Syringe IV PRN PRN LINE FLUSH
--- NOTE | 2022-04-25 13:27 | Progress Note ---
Assessment and Plan Acute hypoxemic respiratory failure Altered mental status Aspiration pneumonia Shock (Cardiogenic +/- Septic) Severe Metabolic Acidosis Morbid Obesity Diabetes type II Hypotension Obesity hypoventilation syndrome - placed on SBT via PSV with p-supp @ 12 and tolerating well so far - ABG after 2 hours - gentle hydration re: worsening azotemia with hypotonic fluids (hypernatremia) (discussed with nephrology) - continue Dobutamine for inotropic support during re-hydration - continue CVP's monitoring (down to 14) - continue strict I's & O's and target negative fuid balance - Procalcitonin level unremarkable despite VINCENT - care plan explained at length to his in the room again today - s/p 5 days empiric CAP therapy with Levaquin - prn vasopressors for target MAP > 65mmHg - continue daily SAT and SBT assessment as tolerated - continue to wean supplemental oxygen for target O2 sat's > 90% acutely - VAP bundle addressed - continue lung protective strategies - continue bronchodilators with pulmonary hygiene per RT - wean per pulmonary driven protocols otherwise - avoid nephrotoxins, renally dose all medications - continue accuchecks with glycemic control per SSI (While critically ill target blood glucose of 140-180 mg/dL; avoid hypoglycemia) - sedation prn for target RASS 0 to -1 - continue to avoid benzodiazepine's, reduce the possibility of delirium - AB's per ID rec's - prn analgesia per CPOT score - Maintenance of sleep-wake cycle, avoid delirium - continue enteral nutritional support at goal rate as tolerated - G.I. & VTE prophylaxis - PT/OT/ROM exercises - continue mobility protocols for pressure ulcer prophylaxis - Monitor hemodynamics closely - continue other care per attending / other consultants - discharge planning ongoing concurrently COVID SPECIFIC INTERVENTIONS - COVID-19 test result pending .... Re-evaluate in am & prn CONDITION: CRITICAL PROGNOSIS: GUARDED CODE STATUS: FULL CODE The high probability of a clinically significant, sudden or life-threatening deterioration of the [respiratory, cardiovascular, renal & neurologic] system(s) required my full and direct attention, intervention and personal management. The aggregate critical care time was [33] minutes without overlap. Time includes spent on; [x] Data Review and interpretation [x] Patient assessment and monitoring of vital signs [x] Documentation [x] Medication orders and management Subjective Date of service: 04/25/22 Principal diagnosis: AHRF; AMS; Pneumonia; Shock; DM II; Severe Metabolic A cidosis Interval history: Patient is seen today for: Acute hypoxemic respiratory failure; AMS; Aspiration pneumonia; Shock (Cardiogenic +/- Septic); DM II; Severe Metabolic Acidosis Seen and examined at bedside; 24hour events reviewed; nursing and respiratory care staff consulted; no adverse overnight events reported to me; resting in bed; remains on MVS; FiO2 down to 40% and tolerated about 30 minutes on SBT via PSV yesterday; sedated lightly but easily aroused; no emesis or overt aspiration; azotemia a little worse past 24 hours with drop in urine output; occasional low grade fevers Objective Vital Signs - 12hr 04/25/22 04/25/22 04/25/22 01:31 02:00 02:31 Temperature Pulse Rate 107 H 107 H 103 H Pulse Rate [ From Monitor] Respiratory 15 16 17 Rate Respiratory Rate [no] Blood Pressure 107/65 120/69 120/69 O2 Sat by Pulse 98 97 99 Oximetry 04/25/22 04/25/22 04/25/22 03:00 03:30 03:31 Temperature 98.9 F Pulse Rate 109 H 95 H 95 H Pulse Rate [ From Monitor] Respiratory 16 16 16 Rate Respiratory Rate [no] Blood Pressure 120/69 116/68 O2 Sat by Pulse 99 99 99 Oximetry 04/25/22 04/25/22 04/25/22 04:00 04:31 05:00 Temperature Pulse Rate 94 H 93 H 97 H Pulse Rate [ From Monitor] Respiratory 16 16 16 Rate Respiratory Rate [no] Blood Pressure 108/67 108/67 118/67 O2 Sat by Pulse 97 99 98 Oximetry 04/25/22 04/25/22 04/25/22 05:31 06:00 06:31 Temperature Pulse Rate 103 H 103 H 109 H Pulse Rate [ From Monitor] Respiratory 16 14 17 Rate Respiratory Rate [no] Blood Pressure 118/67 120/70 118/67 O2 Sat by Pulse 99 97 99 Oximetry 04/25/22 04/25/22 04/25/22 07:00 07:31 07:49 Temperature Pulse Rate 108 H 105 H 109 H Pulse Rate [ From Monitor] Respiratory 16 16 Rate Respiratory Rate [no] Blood Pressure 125/75 120/70 151/76 O2 Sat by Pulse 98 99 98 Oximetry 0804/25/22 04/25/22 08:00 08:01 08:31 Temperature 100.3 F H Pulse Rate 107 H 103 H Pulse Rate [ 105 H From Monitor] Respiratory 16 16 16 Rate Respiratory Rate [no] Blood Pressure 120/70 120/70 O2 Sat by Pulse 100 99 99 Oximetry 04/25/22 04/25/22 04/25/22 09:01 09:31 10:00 Temperature Pulse Rate 109 H 105 H Pulse Rate [ From Monitor] Respiratory 16 16 Rate Respiratory 16 Rate [no] Blood Pressure 120/70 120/70 O2 Sat by Pulse 99 99 Oximetry 04/25/22 04/25/22 04/25/22 10:01 10:31 11:00 Temperature Pulse Rate 100 H 108 H 110 H Pulse Rate [ From Monitor] Respiratory 16 16 Rate Respiratory Rate [no] Blood Pressure 120/70 120/70 O2 Sat by Pulse 99 99 Oximetry 04/25/22 04/25/22 04/25/22 11:01 11:31 11:46 Temperature Pulse Rate 115 H 120 H 108 H Pulse Rate [ From Monitor] Respiratory 17 16 Rate Respiratory Rate [no] Blood Pressure 120/70 120/70 99/86 O2 Sat by Pulse 99 99 100 Oximetry 04/25/22 04/25/22 04/25/22 12:00 12:01 12:31 Temperature Pulse Rate 114 H 116 H Pulse Rate [ 110 H From Monitor] Respiratory 16 14 16 Rate Respiratory Rate [no] Blood Pressure 120/70 120/70 O2 Sat by Pulse 100 100 100 Oximetry 04/25/22 13:01 Temperature Pulse Rate 104 H Pulse Rate [ From Monitor] Respiratory 13 Rate Respiratory Rate [no] Blood Pressure 120/70 O2 Sat by Pulse 100 Oximetry Constitutional: no acute distress, other (elderly obese 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 [employer]) Eyes: non-icteric ENT: oropharynx moist, other (ETT 24 cm DIANNE) Neck: supple, no JVD Effort: mildly labored Ascultation: Bilateral: diminished breath sounds, rhonchi Percussion: Bilateral: not dull Cardiovascular: irregular rhythm, other (No R/M) Gastrointestinal: normoactive bowel sounds, soft, non-tender, non-distended (protuberant) Integumentary: normal Extremities: no cyanosis, no edema, pulses normal, no ischemia or petechiae Neurologic: non-focal exam (grossly), pupils equal and round, unable to assess Psychiatric: other (Unable to assess due to mental status.) CBC and BMP: 04/25/22 03:30 04/25/22 03:30 ABG, PT/INR, D-dimer: ABG ABG pH 7.415 pH Units (7.350-7.450) 04/25/22 05:09 ABG pCO2 51.4 mm Hg 04/25/22 05:09 ABG pO2 85.0 mm Hg (80.0-90.0) 04/25/22 05:09 ABG O2 Saturation 96.9 % (95.0-99.0) 04/25/22 05:09 PT/INR, D-dimer PT 15.6 Sec. (12.2-14.9) H 04/18/22 Unknown INR 1.08 (0.87-1.13) 04/18/22 Unknown Abnormal lab findings: Abnormal Labs 04/17/22 04/17/22 04/17/22 19:18 19:55 19:56 WBC RBC Hgb Hct RDW Plt Count Lymph % (Auto) Leon % (Auto) Eos % (Auto) Lymph # (Auto) Leon # (Auto) Eos # (Auto) Seg Neutrophils % Seg Neuts % (Manual) Lymphocytes % (Manual) Eosinophils % (Manual) Seg Neutrophils # Seg Neutrophils # Man Lymphocytes # (Manual) Eosinophils # (Manual) PT Activated Coag Time Heparin Anti-Xa Level ABG pH 7.120 L* ABG pO2 45.3 L ABG HCO3 18.5 L ABG O2 Saturation 68.3 L ABG Base Excess -11.5 L ABG Hemoglobin Oxyhemoglobin 66.8 L Sodium Potassium Chloride 94.2 L Carbon Dioxide 17 L BUN Creatinine 1.6 H Glucose 315 H POC Glucose 277 H Lactic Acid Calcium Phosphorus Magnesium AST 529 H ALT 318 H Alkaline Phosphatase 137 H Total Creatine Kinase 398 H CK-MB (CK-2) 17.9 H CK-MB (CK-2) Rel Index 4.4 H Troponin T 0.205 H* Total Protein Albumin Triglycerides Urine Blood Urine WBC (Auto) Urine Creatinine 04/17/22 04/17/22 04/17/22 19:58 19:58 21:42 WBC 11.9 H RBC 5.17 H Hgb 15.5 H Hct 48.0 H RDW Plt Count Lymph % (Auto) Leon % (Auto) Eos % (Auto) Lymph # (Auto) Leon # (Auto) Eos # (Auto) Seg Neutrophils % 71.7 H Seg Neuts % (Manual) Lymphocytes % (Manual) Eosinophils % (Manual) Seg Neutrophils # 8.5 H Seg Neutrophils # Man Lymphocytes # (Manual) Eosinophils # (Manual) PT Activated Coag Time Heparin Anti-Xa Level ABG pH ABG pO2 ABG HCO3 ABG O2 Saturation ABG Base Excess ABG Hemoglobin Oxyhemoglobin Sodium Potassium Chloride 95.0 L Carbon Dioxide 19 L BUN Creatinine 1.5 H Glucose 306 H POC Glucose Lactic Acid Calcium Phosphorus Magnesium AST ALT Alkaline Phosphatase Total Creatine Kinase 412 H CK-MB (CK-2) 19.2 H CK-MB (CK-2) Rel Index 4.6 H Troponin T 0.285 H* D Total Protein Albumin Triglycerides Urine Blood Urine WBC (Auto) Urine Creatinine 04/17/22 04/18/22 04/18/22 21:42 00:40 01:07 WBC RBC Hgb Hct RDW Plt Count Lymph % (Auto) Leon % (Auto) Eos % (Auto) Lymph # (Auto) Leon # (Auto) Eos # (Auto) Seg Neutrophils % Seg Neuts % (Manual) Lymphocytes % (Manual) Eosinophils % (Manual) Seg Neutrophils # Seg Neutrophils # Man Lymphocytes # (Manual) Eosinophils # (Manual) PT Activated Coag Time Heparin Anti-Xa Level ABG pH ABG pO2 ABG HCO3 ABG O2 Saturation ABG Base Excess ABG Hemoglobin Oxyhemoglobin Sodium Potassium Chloride Carbon Dioxide BUN Creatinine Glucose POC Glucose 320 H Lactic Acid 7.90 H* 7.90 H* Calcium Phosphorus Magnesium AST ALT Alkaline Phosphatase Total Creatine Kinase CK-MB (CK-2) CK-MB (CK-2) Rel Index Troponin T Total Protein Albumin Triglycerides Urine Blood Urine WBC (Auto) Urine Creatinine 04/18/22 04/18/22 04/18/22 01:07 04:00 06:04 WBC RBC Hgb Hct RDW Plt Count Lymph % (Auto) Leon % (Auto) Eos % (Auto) Lymph # (Auto) Leon # (Auto) Eos # (Auto) Seg Neutrophils % Seg Neuts % (Manual) Lymphocytes % (Manual) Eosinophils % (Manual) Seg Neutrophils # Seg Neutrophils # Man Lymphocytes # (Manual) Eosinophils # (Manual) PT Activated Coag Time Heparin Anti-Xa Level < 0.10 L ABG pH ABG pO2 ABG HCO3 ABG O2 Saturation ABG Base Excess ABG Hemoglobin Oxyhemoglobin Sodium Potassium Chloride Carbon Dioxide BUN Creatinine Glucose POC Glucose 305 H Lactic Acid Calcium Phosphorus Magnesium AST ALT Alkaline Phosphatase Total Creatine Kinase 488 H CK-MB (CK-2) 25.3 H CK-MB (CK-2) Rel Index 5.1 H Troponin T 0.665 H* D Total Protein Albumin Triglycerides Urine Blood Urine WBC (Auto) Urine Creatinine 04/18/22 04/18/22 04/18/22 06:20 11:10 12:48 WBC RBC Hgb Hct RDW Plt Count Lymph % (Auto) Leon % (Auto) Eos % (Auto) Lymph # (Auto) Leon # (Auto) Eos # (Auto) Seg Neutrophils % Seg Neuts % (Manual) Lymphocytes % (Manual) Eosinophils % (Manual) Seg Neutrophils # Seg Neutrophils # Man Lymphocytes # (Manual) Eosinophils # (Manual) PT Activated Coag Time Heparin Anti-Xa Level < 0.10 L ABG pH 7.119 L* 7.304 L ABG pO2 56.1 L 103.5 H ABG HCO3 18.4 L 14.4 L ABG O2 Saturation 80.7 L ABG Base Excess -11.4 L -10.6 L ABG Hemoglobin 13.5 L Oxyhemoglobin 79.2 L Sodium Potassium Chloride Carbon Dioxide BUN Creatinine Glucose POC Glucose Lactic Acid Calcium Phosphorus Magnesium AST ALT Alkaline Phosphatase Total Creatine Kinase CK-MB (CK-2) CK-MB (CK-2) Rel Index Troponin T Total Protein Albumin Triglycerides Urine Blood Urine WBC (Auto) Urine Creatinine 04/18/22 04/18/22 04/18/22 13:13 16:00 16:00 WBC RBC Hgb Hct RDW Plt Count Lymph % (Auto) Leon % (Auto) Eos % (Auto) Lymph # (Auto) Leon # (Auto) Eos # (Auto) Seg Neutrophils % Seg Neuts % (Manual) Lymphocytes % (Manual) Eosinophils % (Manual) Seg Neutrophils # Seg Neutrophils # Man Lymphocytes # (Manual) Eosinophils # (Manual) PT Activated Coag Time Heparin Anti-Xa Level ABG pH ABG pO2 ABG HCO3 ABG O2 Saturation ABG Base Excess ABG Hemoglobin Oxyhemoglobin Sodium Potassium Chloride Carbon Dioxide BUN Creatinine Glucose POC Glucose 334 H Lactic Acid 7.00 H* Calcium Phosphorus 5.70 H Magnesium 1.30 L AST ALT Alkaline Phosphatase Total Creatine Kinase 969 H CK-MB (CK-2) 55.9 H CK-MB (CK-2) Rel Index 5.7 H Troponin T 1.580 H* D Total Protein Albumin Triglycerides Urine Blood Urine WBC (Auto) Urine Creatinine 04/18/22 04/18/22 04/18/22 16:00 18:00 18:01 WBC RBC Hgb Hct RDW Plt Count Lymph % (Auto) Leon % (Auto) Eos % (Auto) Lymph # (Auto) Leon # (Auto) Eos # (Auto) Seg Neutrophils % Seg Neuts % (Manual) Lymphocytes % (Manual) Eosinophils % (Manual) Seg Neutrophils # Seg Neutrophils # Man Lymphocytes # (Manual) Eosinophils # (Manual) PT Activated Coag Time Heparin Anti-Xa Level < 0.10 L ABG pH ABG pO2 ABG HCO3 ABG O2 Saturation ABG Base Excess ABG Hemoglobin Oxyhemoglobin Sodium 136 L Potassium 6.3 H* D Chloride 97.6 L Carbon Dioxide 18 L BUN 34 H Creatinine 3.5 H Glucose 409 H POC Glucose 397 H Lactic Acid Calcium 6.8 L Phosphorus Magnesium AST ALT Alkaline Phosphatase Total Creatine Kinase CK-MB (CK-2) CK-MB (CK-2) Rel Index Troponin T Total Protein Albumin Triglycerides Urine Blood Urine WBC (Auto) Urine Creatinine 04/18/22 04/18/22 04/18/22 19:13 20:58 21:22 WBC RBC Hgb Hct RDW Plt Count Lymph % (Auto) Leon % (Auto) Eos % (Auto) Lymph # (Auto) Leon # (Auto) Eos # (Auto) Seg Neutrophils % Seg Neuts % (Manual) Lymphocytes % (Manual) Eosinophils % (Manual) Seg Neutrophils # Seg Neutrophils # Man Lymphocytes # (Manual) Eosinophils # (Manual) PT Activated Coag Time Heparin Anti-Xa Level ABG pH 7.502 H ABG pO2 144.5 H ABG HCO3 ABG O2 Saturation ABG Base Excess ABG Hemoglobin 12.5 L Oxyhemoglobin Sodium Potassium Chloride Carbon Dioxide BUN Creatinine Glucose POC Glucose 321 H 307 H Lactic Acid Calcium Phosphorus Magnesium AST ALT Alkaline Phosphatase Total Creatine Kinase CK-MB (CK-2) CK-MB (CK-2) Rel Index Troponin T Total Protein Albumin Triglycerides Urine Blood Urine WBC (Auto) Urine Creatinine 08/03/0404/18/22 04/18/22 21:30 21:30 Unknown WBC RBC Hgb Hct RDW Plt Count Lymph % (Auto) Leon % (Auto) Eos % (Auto) Lymph # (Auto) Leon # (Auto) Eos # (Auto) Seg Neutrophils % Seg Neuts % (Manual) 81.0 H Lymphocytes % (Manual) 12.0 L Eosinophils % (Manual) Seg Neutrophils # 9.8 H Seg Neutrophils # Man 8.7 H Lymphocytes # (Manual) Eosinophils # (Manual) PT Activated Coag Time Heparin Anti-Xa Level ABG pH ABG pO2 ABG HCO3 ABG O2 Saturation ABG Base Excess ABG Hemoglobin Oxyhemoglobin Sodium Potassium Chloride 96.6 L Carbon Dioxide BUN 37 H Creatinine 3.6 H Glucose 312 H POC Glucose Lactic Acid 5.50 H* Calcium 7.3 L Phosphorus Magnesium AST ALT Alkaline Phosphatase Total Creatine Kinase CK-MB (CK-2) CK-MB (CK-2) Rel Index Troponin T Total Protein Albumin Triglycerides Urine Blood Urine WBC (Auto) Urine Creatinine 04/18/22 04/18/22 04/19/22 Unknown Unknown 00:35 WBC RBC Hgb Hct RDW Plt Count Lymph % (Auto) Leon % (Auto) Eos % (Auto) Lymph # (Auto) Leon # (Auto) Eos # (Auto) Seg Neutrophils % Seg Neuts % (Manual) Lymphocytes % (Manual) Eosinophils % (Manual) Seg Neutrophils # Seg Neutrophils # Man Lymphocytes # (Manual) Eosinophils # (Manual) PT 15.6 H Activated Coag Time Heparin Anti-Xa Level ABG pH ABG pO2 ABG HCO3 ABG O2 Saturation ABG Base Excess ABG Hemoglobin Oxyhemoglobin Sodium Potassium Chloride Carbon Dioxide 18 L BUN 26 H Creatinine 2.5 H D Glucose 330 H POC Glucose Lactic Acid Calcium 7.9 L Phosphorus Magnesium AST 463 H ALT 249 H Alkaline Phosphatase Total Creatine Kinase CK-MB (CK-2) CK-MB (CK-2) Rel Index Troponin T 2.670 H* D Total Protein Albumin 3.3 L Triglycerides Urine Blood Urine WBC (Auto) Urine Creatinine 04/19/22 04/19/22 04/19/22 00:39 02:08 02:08 WBC RBC Hgb Hct RDW Plt Count Lymph % (Auto) Leon % (Auto) Eos % (Auto) Lymph # (Auto) Leon # (Auto) Eos # (Auto) Seg Neutrophils % Seg Neuts % (Manual) Lymphocytes % (Manual) Eosinophils % (Manual) Seg Neutrophils # Seg Neutrophils # Man Lymphocytes # (Manual) Eosinophils # (Manual) PT Activated Coag Time Heparin Anti-Xa Level ABG pH ABG pO2 ABG HCO3 ABG O2 Saturation ABG Base Excess ABG Hemoglobin Oxyhemoglobin Sodium Potassium Chloride Carbon Dioxide BUN Creatinine Glucose POC Glucose 263 H Lactic Acid Calcium Phosphorus Magnesium AST ALT Alkaline Phosphatase Total Creatine Kinase CK-MB (CK-2) CK-MB (CK-2) Rel Index Troponin T Total Protein Albumin Triglycerides Urine Blood Large A Urine WBC (Auto) 88.0 H Urine Creatinine 90.9 H 04/19/22 04/19/22 04/19/22 02:08 03:45 03:45 WBC 14.2 H RBC Hgb Hct RDW Plt Count Lymph % (Auto) Leon % (Auto) Eos % (Auto) Lymph # (Auto) Leon # (Auto) Eos # (Auto) Seg Neutrophils % Seg Neuts % (Manual) Lymphocytes % (Manual) Eosinophils % (Manual) Seg Neutrophils # Seg Neutrophils # Man Lymphocytes # (Manual) Eosinophils # (Manual) PT Activated Coag Time Heparin Anti-Xa Level 0.18 L ABG pH ABG pO2 ABG HCO3 ABG O2 Saturation ABG Base Excess ABG Hemoglobin Oxyhemoglobin Sodium Potassium Chloride 94.2 L Carbon Dioxide BUN 39 H Creatinine 3.8 H Glucose 243 H POC Glucose Lactic Acid Calcium 7.1 L Phosphorus Magnesium 1.50 L AST 380 H ALT 289 H Alkaline Phosphatase Total Creatine Kinase CK-MB (CK-2) CK-MB (CK-2) Rel Index Troponin T Total Protein 5.4 L Albumin 2.5 L Triglycerides Urine Blood Urine WBC (Auto) Urine Creatinine 04/19/22 04/19/22 04/19/22 03:45 06:01 07:11 WBC RBC Hgb Hct RDW Plt Count Lymph % (Auto) Leon % (Auto) Eos % (Auto) Lymph # (Auto) Leon # (Auto) Eos # (Auto) Seg Neutrophils % Seg Neuts % (Manual) Lymphocytes % (Manual) Eosinophils % (Manual) Seg Neutrophils # Seg Neutrophils # Man Lymphocytes # (Manual) Eosinophils # (Manual) PT Activated Coag Time Heparin Anti-Xa Level ABG pH ABG pO2 ABG HCO3 ABG O2 Saturation ABG Base Excess ABG Hemoglobin Oxyhemoglobin Sodium Potassium Chloride Carbon Dioxide BUN Creatinine Glucose POC Glucose 165 H Lactic Acid 4.00 H* Calcium Phosphorus Magnesium AST ALT Alkaline Phosphatase Total Creatine Kinase 3270 H CK-MB (CK-2) 28.5 H CK-MB (CK-2) Rel Index Troponin T 2.980 H* Total Protein Albumin Triglycerides Urine Blood Urine WBC (Auto) Urine Creatinine 04/19/22 04/19/22 04/19/22 07:50 08:50 12:49 WBC RBC Hgb Hct RDW Plt Count Lymph % (Auto) Leon % (Auto) Eos % (Auto) Lymph # (Auto) Leon # (Auto) Eos # (Auto) Seg Neutrophils % Seg Neuts % (Manual) Lymphocytes % (Manual) Eosinophils % (Manual) Seg Neutrophils # Seg Neutrophils # Man Lymphocytes # (Manual) Eosinophils # (Manual) PT Activated Coag Time Heparin Anti-Xa Level ABG pH 7.471 H ABG pO2 58.9 L ABG HCO3 27.1 H ABG O2 Saturation 91.7 L ABG Base Excess 3.4 H ABG Hemoglobin 12.2 L Oxyhemoglobin 90.0 L Sodium Potassium Chloride Carbon Dioxide BUN Creatinine Glucose POC Glucose 331 H Lactic Acid 3.40 H* Calcium Phosphorus Magnesium AST ALT Alkaline Phosphatase Total Creatine Kinase CK-MB (CK-2) CK-MB (CK-2) Rel Index Troponin T Total Protein Albumin Triglycerides Urine Blood Urine WBC (Auto) Urine Creatinine 04/19/22 04/19/22 04/19/22 16:15 19:25 21:17 WBC RBC Hgb Hct RDW Plt Count Lymph % (Auto) Leon % (Auto) Eos % (Auto) Lymph # (Auto) Leon # (Auto) Eos # (Auto) Seg Neutrophils % Seg Neuts % (Manual) Lymphocytes % (Manual) Eosinophils % (Manual) Seg Neutrophils # Seg Neutrophils # Man Lymphocytes # (Manual) Eosinophils # (Manual) PT Activated Coag Time Heparin Anti-Xa Level ABG pH ABG pO2 ABG HCO3 ABG O2 Saturation ABG Base Excess ABG Hemoglobin Oxyhemoglobin Sodium Potassium Chloride Carbon Dioxide BUN Creatinine Glucose POC Glucose 304 H 251 H Lactic Acid 4.00 H* Calcium Phosphorus Magnesium AST ALT Alkaline Phosphatase Total Creatine Kinase CK-MB (CK-2) CK-MB (CK-2) Rel Index Troponin T Total Protein Albumin Triglycerides Urine Blood Urine WBC (Auto) Urine Creatinine 04/19/22 04/20/22 04/20/22 23:00 04:12 04:12 WBC 12.2 H RBC Hgb 11.6 L Hct 35.3 L RDW Plt Count Lymph % (Auto) Leon % (Auto) Eos % (Auto) Lymph # (Auto) Leon # (Auto) Eos # (Auto) Seg Neutrophils % Seg Neuts % (Manual) Lymphocytes % (Manual) Eosinophils % (Manual) Seg Neutrophils # Seg Neutrophils # Man Lymphocytes # (Manual) Eosinophils # (Manual) PT Activated Coag Time Heparin Anti-Xa Level 0.15 L ABG pH ABG pO2 ABG HCO3 ABG O2 Saturation ABG Base Excess ABG Hemoglobin Oxyhemoglobin Sodium Potassium Chloride Carbon Dioxide BUN Creatinine Glucose POC Glucose 236 H Lactic Acid Calcium Phosphorus Magnesium AST ALT Alkaline Phosphatase Total Creatine Kinase CK-MB (CK-2) CK-MB (CK-2) Rel Index Troponin T Total Protein Albumin Triglycerides Urine Blood Urine WBC (Auto) Urine Creatinine 04/20/22 04/20/22 04/20/22 04:12 04:12 09:10 WBC RBC Hgb Hct RDW Plt Count Lymph % (Auto) Leon % (Auto) Eos % (Auto) Lymph # (Auto) Leon # (Auto) Eos # (Auto) Seg Neutrophils % Seg Neuts % (Manual) Lymphocytes % (Manual) Eosinophils % (Manual) Seg Neutrophils # Seg Neutrophils # Man Lymphocytes # (Manual) Eosinophils # (Manual) PT Activated Coag Time Heparin Anti-Xa Level ABG pH ABG pO2 ABG HCO3 ABG O2 Saturation ABG Base Excess ABG Hemoglobin Oxyhemoglobin Sodium 133 L Potassium 3.5 L Chloride 91.9 L Carbon Dioxide BUN 44 H Creatinine 4.6 H Glucose 263 H POC Glucose Lactic Acid 2.80 H* Calcium 7.2 L Phosphorus Magnesium AST 553 H ALT 471 H Alkaline Phosphatase Total Creatine Kinase 3019 H CK-MB (CK-2) CK-MB (CK-2) Rel Index Troponin T Total Protein 5.7 L Albumin 2.4 L Triglycerides 254 H Urine Blood Urine WBC (Auto) Urine Creatinine 04/20/22 04/20/22 04/20/22 09:31 11:18 18:08 WBC RBC Hgb Hct RDW Plt Count Lymph % (Auto) Leon % (Auto) Eos % (Auto) Lymph # (Auto) Leon # (Auto) Eos # (Auto) Seg Neutrophils % Seg Neuts % (Manual) Lymphocytes % (Manual) Eosinophils % (Manual) Seg Neutrophils # Seg Neutrophils # Man Lymphocytes # (Manual) Eosinophils # (Manual) PT Activated Coag Time Heparin Anti-Xa Level ABG pH 7.512 H ABG pO2 ABG HCO3 26.2 H ABG O2 Saturation ABG Base Excess 3.2 H ABG Hemoglobin 9.0 L Oxyhemoglobin Sodium Potassium Chloride Carbon Dioxide BUN Creatinine Glucose POC Glucose 285 H 293 H Lactic Acid Calcium Phosphorus Magnesium AST ALT Alkaline Phosphatase Total Creatine Kinase CK-MB (CK-2) CK-MB (CK-2) Rel Index Troponin T Total Protein Albumin Triglycerides Urine Blood Urine WBC (Auto) Urine Creatinine 04/20/22 04/21/22 04/21/22 21:40 00:10 04:00 WBC RBC Hgb Hct RDW Plt Count Lymph % (Auto) Leon % (Auto) Eos % (Auto) Lymph # (Auto) Leon # (Auto) Eos # (Auto) Seg Neutrophils % Seg Neuts % (Manual) Lymphocytes % (Manual) Eosinophils % (Manual) Seg Neutrophils # Seg Neutrophils # Man Lymphocytes # (Manual) Eosinophils # (Manual) PT Activated Coag Time Heparin Anti-Xa Level 0.16 L ABG pH ABG pO2 59.4 L ABG HCO3 29.7 H ABG O2 Saturation 90.1 L ABG Base Excess 3.1 H ABG Hemoglobin 11.6 L Oxyhemoglobin 88.2 L Sodium Potassium Chloride Carbon Dioxide BUN Creatinine Glucose POC Glucose 290 H Lactic Acid Calcium Phosphorus Magnesium AST ALT Alkaline Phosphatase Total Creatine Kinase CK-MB (CK-2) CK-MB (CK-2) Rel Index Troponin T Total Protein Albumin Triglycerides Urine Blood Urine WBC (Auto) Urine Creatinine 04/21/22 04/21/22 04/21/22 04:30 04:30 05:57 WBC 17.9 H RBC Hgb 11.7 L Hct 35.1 L RDW Plt Count Lymph % (Auto) Leon % (Auto) Eos % (Auto) Lymph # (Auto) Leon # (Auto) Eos # (Auto) Seg Neutrophils % Seg Neuts % (Manual) Lymphocytes % (Manual) Eosinophils % (Manual) Seg Neutrophils # Seg Neutrophils # Man Lymphocytes # (Manual) Eosinophils # (Manual) PT Activated Coag Time Heparin Anti-Xa Level ABG pH ABG pO2 ABG HCO3 ABG O2 Saturation ABG Base Excess ABG Hemoglobin Oxyhemoglobin Sodium Potassium Chloride 95.7 L Carbon Dioxide BUN 45 H Creatinine 4.2 H Glucose 309 H POC Glucose 265 H Lactic Acid Calcium 7.4 L Phosphorus 5.60 H D Magnesium 2.50 H AST 217 H ALT 376 H Alkaline Phosphatase Total Creatine Kinase CK-MB (CK-2) CK-MB (CK-2) Rel Index Troponin T Total Protein Albumin 2.8 L Triglycerides Urine Blood Urine WBC (Auto) Urine Creatinine 04/21/22 04/21/22 04/21/22 12:14 13:45 18:10 WBC RBC Hgb Hct RDW Plt Count Lymph % (Auto) Leon % (Auto) Eos % (Auto) Lymph # (Auto) Leon # (Auto) Eos # (Auto) Seg Neutrophils % Seg Neuts % (Manual) Lymphocytes % (Manual) Eosinophils % (Manual) Seg Neutrophils # Seg Neutrophils # Man Lymphocytes # (Manual) Eosinophils # (Manual) PT Activated Coag Time 179 H Heparin Anti-Xa Level ABG pH ABG pO2 ABG HCO3 ABG O2 Saturation ABG Base Excess ABG Hemoglobin Oxyhemoglobin Sodium Potassium Chloride Carbon Dioxide BUN Creatinine Glucose POC Glucose 248 H 240 H Lactic Acid Calcium Phosphorus Magnesium AST ALT Alkaline Phosphatase Total Creatine Kinase CK-MB (CK-2) CK-MB (CK-2) Rel Index Troponin T Total Protein Albumin Triglycerides Urine Blood Urine WBC (Auto) Urine Creatinine 04/22/22 04/22/22 04/22/22 00:09 04:00 04:33 WBC 12.4 H RBC 3.34 L Hgb 9.8 L Hct 29.7 L RDW Plt Count 138 L Lymph % (Auto) Leon % (Auto) Eos % (Auto) Lymph # (Auto) Leon # (Auto) Eos # (Auto) Seg Neutrophils % Seg Neuts % (Manual) Lymphocytes % (Manual) Eosinophils % (Manual) Seg Neutrophils # Seg Neutrophils # Man Lymphocytes # (Manual) Eosinophils # (Manual) PT Activated Coag Time Heparin Anti-Xa Level ABG pH ABG pO2 ABG HCO3 ABG O2 Saturation ABG Base Excess ABG Hemoglobin Oxyhemoglobin Sodium Potassium Chloride Carbon Dioxide BUN 40 H Creatinine 2.9 H Glucose 269 H POC Glucose 248 H Lactic Acid Calcium 7.3 L Phosphorus Magnesium AST ALT Alkaline Phosphatase Total Creatine Kinase 973 H CK-MB (CK-2) CK-MB (CK-2) Rel Index Troponin T Total Protein Albumin Triglycerides Urine Blood Urine WBC (Auto) Urine Creatinine 04/22/22 04/22/22 04/22/22 10:13 11:51 18:02 WBC RBC Hgb Hct RDW Plt Count Lymph % (Auto) Leon % (Auto) Eos % (Auto) Lymph # (Auto) Leon # (Auto) Eos # (Auto) Seg Neutrophils % Seg Neuts % (Manual) Lymphocytes % (Manual) Eosinophils % (Manual) Seg Neutrophils # Seg Neutrophils # Man Lymphocytes # (Manual) Eosinophils # (Manual) PT Activated Coag Time Heparin Anti-Xa Level ABG pH ABG pO2 56.1 L ABG HCO3 28.4 H ABG O2 Saturation 89.3 L ABG Base Excess ABG Hemoglobin 9.8 L Oxyhemoglobin 87.7 L Sodium Potassium Chloride Carbon Dioxide BUN Creatinine Glucose POC Glucose 302 H 266 H Lactic Acid Calcium Phosphorus Magnesium AST ALT Alkaline Phosphatase Total Creatine Kinase CK-MB (CK-2) CK-MB (CK-2) Rel Index Troponin T Total Protein Albumin Triglycerides Urine Blood Urine WBC (Auto) Urine Creatinine 04/22/22 04/22/22 04/23/22 21:18 23:30 04:19 WBC RBC 3.34 L Hgb 9.9 L Hct 29.9 L RDW Plt Count Lymph % (Auto) Leon % (Auto) Eos % (Auto) Lymph # (Auto) Leon # (Auto) Eos # (Auto) Seg Neutrophils % Seg Neuts % (Manual) 74.0 H Lymphocytes % (Manual) 10.0 L Eosinophils % (Manual) 7.0 H Seg Neutrophils # Seg Neutrophils # Man 8.0 H Lymphocytes # (Manual) 1.1 L Eosinophils # (Manual) 0.8 H PT Activated Coag Time Heparin Anti-Xa Level ABG pH ABG pO2 ABG HCO3 ABG O2 Saturation ABG Base Excess ABG Hemoglobin Oxyhemoglobin Sodium Potassium Chloride Carbon Dioxide BUN Creatinine Glucose POC Glucose 299 H 299 H Lactic Acid Calcium Phosphorus Magnesium AST ALT Alkaline Phosphatase Total Creatine Kinase CK-MB (CK-2) CK-MB (CK-2) Rel Index Troponin T Total Protein Albumin Triglycerides Urine Blood Urine WBC (Auto) Urine Creatinine 04/23/22 04/23/22 04/23/22 04:19 05:24 11:20 WBC RBC Hgb Hct RDW Plt Count Lymph % (Auto) Leon % (Auto) Eos % (Auto) Lymph # (Auto) Leon # (Auto) Eos # (Auto) Seg Neutrophils % Seg Neuts % (Manual) Lymphocytes % (Manual) Eosinophils % (Manual) Seg Neutrophils # Seg Neutrophils # Man Lymphocytes # (Manual) Eosinophils # (Manual) PT Activated Coag Time Heparin Anti-Xa Level ABG pH ABG pO2 ABG HCO3 ABG O2 Saturation ABG Base Excess ABG Hemoglobin Oxyhemoglobin Sodium Potassium 3.5 L Chloride Carbon Dioxide BUN 30 H Creatinine 2.3 H Glucose 289 H POC Glucose 271 H 302 H Lactic Acid Calcium 7.8 L Phosphorus Magnesium AST 46 H ALT 158 H Alkaline Phosphatase 138 H Total Creatine Kinase CK-MB (CK-2) CK-MB (CK-2) Rel Index Troponin T Total Protein 6.2 L Albumin 2.6 L Triglycerides 230 H Urine Blood Urine WBC (Auto) Urine Creatinine 04/23/22 04/23/22 04/23/22 18:07 18:20 21:14 WBC RBC Hgb Hct RDW Plt Count Lymph % (Auto) Leon % (Auto) Eos % (Auto) Lymph # (Auto) Leon # (Auto) Eos # (Auto) Seg Neutrophils % Seg Neuts % (Manual) Lymphocytes % (Manual) Eosinophils % (Manual) Seg Neutrophils # Seg Neutrophils # Man Lymphocytes # (Manual) Eosinophils # (Manual) PT Activated Coag Time Heparin Anti-Xa Level ABG pH ABG pO2 ABG HCO3 31.6 H ABG O2 Saturation ABG Base Excess 4.8 H ABG Hemoglobin 18.3 H Oxyhemoglobin 94.8 L Sodium Potassium Chloride Carbon Dioxide BUN Creatinine Glucose POC Glucose 228 H 175 H Lactic Acid Calcium Phosphorus Magnesium AST ALT Alkaline Phosphatase Total Creatine Kinase CK-MB (CK-2) CK-MB (CK-2) Rel Index Troponin T Total Protein Albumin Triglycerides Urine Blood Urine WBC (Auto) Urine Creatinine 04/23/22 04/24/22 04/24/22 23:24 04:35 04:47 WBC RBC Hgb Hct RDW Plt Count Lymph % (Auto) Leon % (Auto) Eos % (Auto) Lymph # (Auto) Leon # (Auto) Eos # (Auto) Seg Neutrophils % Seg Neuts % (Manual) Lymphocytes % (Manual) Eosinophils % (Manual) Seg Neutrophils # Seg Neutrophils # Man Lymphocytes # (Manual) Eosinophils # (Manual) PT Activated Coag Time Heparin Anti-Xa Level ABG pH ABG pO2 ABG HCO3 31.5 H ABG O2 Saturation ABG Base Excess 6.1 H ABG Hemoglobin 10.3 L Oxyhemoglobin Sodium Potassium Chloride Carbon Dioxide BUN Creatinine Glucose POC Glucose 168 H 177 H Lactic Acid Calcium Phosphorus Magnesium AST ALT Alkaline Phosphatase Total Creatine Kinase CK-MB (CK-2) CK-MB (CK-2) Rel Index Troponin T Total Protein Albumin Triglycerides Urine Blood Urine WBC (Auto) Urine Creatinine 04/24/22 04/24/22 04/24/22 06:00 06:00 12:45 WBC 14.0 H RBC 3.57 L Hgb 10.1 L Hct 31.9 L RDW Plt Count Lymph % (Auto) 4.7 L Leon % (Auto) 8.8 H Eos % (Auto) 6.0 H Lymph # (Auto) 0.7 L Leon # (Auto) 1.2 H Eos # (Auto) 0.8 H Seg Neutrophils % 80.5 H Seg Neuts % (Manual) Lymphocytes % (Manual) Eosinophils % (Manual) Seg Neutrophils # 11.3 H Seg Neutrophils # Man Lymphocytes # (Manual) Eosinophils # (Manual) PT Activated Coag Time Heparin Anti-Xa Level ABG pH ABG pO2 ABG HCO3 ABG O2 Saturation ABG Base Excess ABG Hemoglobin Oxyhemoglobin Sodium Potassium 3.4 L Chloride Carbon Dioxide BUN 25 H Creatinine 1.8 H Glucose 218 H POC Glucose 227 H Lactic Acid Calcium 8.2 L Phosphorus Magnesium AST ALT 99 H Alkaline Phosphatase 141 H Total Creatine Kinase CK-MB (CK-2) CK-MB (CK-2) Rel Index Troponin T Total Protein 6.2 L Albumin 2.2 L Triglycerides Urine Blood Urine WBC (Auto) Urine Creatinine 04/24/22 04/24/22 04/24/22 17:57 21:19 23:24 WBC RBC Hgb Hct RDW Plt Count Lymph % (Auto) Leon % (Auto) Eos % (Auto) Lymph # (Auto) Leon # (Auto) Eos # (Auto) Seg Neutrophils % Seg Neuts % (Manual) Lymphocytes % (Manual) Eosinophils % (Manual) Seg Neutrophils # Seg Neutrophils # Man Lymphocytes # (Manual) Eosinophils # (Manual) PT Activated Coag Time Heparin Anti-Xa Level ABG pH ABG pO2 ABG HCO3 ABG O2 Saturation ABG Base Excess ABG Hemoglobin Oxyhemoglobin Sodium Potassium Chloride Carbon Dioxide BUN Creatinine Glucose POC Glucose 207 H 186 H 203 H Lactic Acid Calcium Phosphorus Magnesium AST ALT Alkaline Phosphatase Total Creatine Kinase CK-MB (CK-2) CK-MB (CK-2) Rel Index Troponin T Total Protein Albumin Triglycerides Urine Blood Urine WBC (Auto) Urine Creatinine 04/25/22 04/25/22 04/25/22 03:30 03:30 04:38 WBC 19.7 H RBC 3.39 L Hgb 9.8 L Hct 30.2 L RDW 15.6 H Plt Count Lymph % (Auto) 4.7 L Leon % (Auto) Eos % (Auto) 5.0 H Lymph # (Auto) 0.9 L Leon # (Auto) 1.2 H Eos # (Auto) 1.0 H Seg Neutrophils % 84.0 H Seg Neuts % (Manual) Lymphocytes % (Manual) Eosinophils % (Manual) Seg Neutrophils # 16.5 H Seg Neutrophils # Man Lymphocytes # (Manual) Eosinophils # (Manual) PT Activated Coag Time Heparin Anti-Xa Level ABG pH ABG pO2 ABG HCO3 ABG O2 Saturation ABG Base Excess ABG Hemoglobin Oxyhemoglobin Sodium 151 H Potassium 3.5 L Chloride 108.6 H Carbon Dioxide 31 H BUN 27 H Creatinine 1.9 H Glucose 144 H POC Glucose 135 H Lactic Acid Calcium 8.3 L Phosphorus Magnesium AST ALT Alkaline Phosphatase Total Creatine Kinase CK-MB (CK-2) CK-MB (CK-2) Rel Index Troponin T Total Protein Albumin Triglycerides Urine Blood Urine WBC (Auto) Urine Creatinine 04/25/22 04/25/22 05:09 12:12 WBC RBC Hgb Hct RDW Plt Count Lymph % (Auto) Leon % (Auto) Eos % (Auto) Lymph # (Auto) Leon # (Auto) Eos # (Auto) Seg Neutrophils % Seg Neuts % (Manual) Lymphocytes % (Manual) Eosinophils % (Manual) Seg Neutrophils # Seg Neutrophils # Man Lymphocytes # (Manual) Eosinophils # (Manual) PT Activated Coag Time Heparin Anti-Xa Level ABG pH ABG pO2 ABG HCO3 32.2 H ABG O2 Saturation ABG Base Excess 6.7 H ABG Hemoglobin 9.9 L Oxyhemoglobin 94.9 L Sodium Potassium Chloride Carbon Dioxide BUN Creatinine Glucose POC Glucose 218 H Lactic Acid Calcium Phosphorus Magnesium AST ALT Alkaline Phosphatase Total Creatine Kinase CK-MB (CK-2) CK-MB (CK-2) Rel Index Troponin T Total Protein Albumin Triglycerides Urine Blood Urine WBC (Auto) Urine Creatinine Chest x-ray: image reviewed (mils interstitial edema overall improved) Allied health notes reviewed: nursing
[2022-04-25] MEDS: FREE WATER PO SCH ×3 (14:30→20:59)
[2022-04-25] MEDS: DEXTROSE 5% IN WATER 1,000 ML IV SCH (15:05)
[2022-04-25 18:22] LABS: ABG Base Excess 6.8 mmol/L (-2.0-3.0); ABG HCO3 32.4 mmol/L (20.0-26.0); ABG Methemoglobin 0.4 % (0.0-1.5); ABG PCO2 52.6 mm Hg; ABG PH 7.408 pH Units (7.350-7.450); ABG PO2 81.4 mm Hg (80.0-90.0)
[2022-04-25] MEDS ORDERED: INSULIN GLARGINE 100 UNITS/ML SUB-Q SCH (22:00)
[2022-04-26] MEDS: INSULIN LISPRO 100 UNIT/ML SUB-Q SCH ×10 (00:05→23:36)
[2022-04-26] MEDS: fentaNYL DRIP Premix 2,000 MCG/100 ML BAG IV SCH ×3 (02:15→18:56)
[2022-04-26] MEDS: FREE WATER PO SCH ×6 (02:17→21:05)
[2022-04-26] MEDS: DEXTROSE 5% IV SCH (03:06)
[2022-04-26] MEDS: DOBUTAMINE IV SCH (03:06)
[2022-04-26] MEDS: DEXTROSE 5% IN WATER 1,000 ML IV SCH ×3 (03:06→23:36)
[2022-04-26] MEDS: WATER IV SCH (03:06)
[2022-04-26 05:50] LABS: Hematocrit 30.1 % (35.5-45.6); Hemoglobin 9.4 gm/dl (11.8-15.2)
[2022-04-26 06:11] LABS: Calcium 8.4 mg/dL (8.4-10.2)
[2022-04-26] MEDS: SENNOSIDES/DOCUSATE SODIUM 8.6/50 MG TAB FEEDTUBE SCH ×2 (09:25→21:05)
[2022-04-26] MEDS: AMIODARONE 200 MG TAB PO SCH ×2 (09:30→21:05)
[2022-04-26] MEDS: HEPARIN 5,000 UNIT/1 ML VIAL SUB-Q SCH ×2 (09:30→21:05)
[2022-04-26] MEDS: ASPIRIN 81 MG TAB CHEW FEEDTUBE SCH (09:30)
[2022-04-26] MEDS: FAMOTIDINE 20 MG TAB FEEDTUBE SCH (09:30)
[2022-04-26] MEDS: diphenhydrAMINE 50 MG/ML VIAL IV SCH ×3 (10:00→22:41)
--- NOTE | 2022-04-26 11:14 | Progress Note ---
Assessment and Plan 1. Status post cardiopulmonary arrest 2. Respiratory failure intubated on mechanical ventilator 3. Post cardiac arrest Encephalopathy ( Difficult to assess since patient is sedated ) 4. Atrial fibrillation with rapid ventricular response 5. Dilated nonischemic cardiomyopathy left ventricular ejection fraction of 15 to 20%. 6. Cardiogenic shock 7. Acute renal failure 8. Obesity Plan. Patient is currently intubated and sedated at bedside states when off sedation patient does respond to commands. Patient to be weaned off sedation and subsequently extubated as tolerated. We will continue present supportive cardiac management and wean of pressor agents as hemodynamically tolerated. Discussed management plan with who is at bedside Increase Amiodarone to 400 mg Bid. Subjective Principal diagnosis: AHRF; AMS; Pneumonia; Shock; DM II; Severe Metabolic Acidosis Interval history: Patient is intubated and sedated on mechanical ventilator. He is more responsive today, at bedside. Objective Vital Signs Temp Pulse Pulse Resp Resp BP Pulse Ox 04/26/22 11:00 118 H 25 H 98 04/26/22 10:30 118 H 21 98 04/26/22 10:00 119 H 29 H 17 96 04/26/22 09:30 107 H 16 99 04/26/22 09:00 105 H 21 99 04/26/22 08:30 104 H 23 98 04/26/22 08:00 99.6 F 105 H 96 H 19 99 04/26/22 07:50 103 H 21 135/69 98 04/26/22 07:30 93 H 18 99 04/26/22 07:28 99.6 F 04/26/22 07:00 97 H 19 100 04/26/22 06:30 94 H 18 99 04/26/22 06:00 99 H 16 100 04/26/22 05:30 103 H 14 99 04/26/22 05:00 98 H 17 99 04/26/22 04:32 91 H 130/58 100 04/26/22 04:30 94 H 17 100 04/26/22 04:00 100 F H 100 H 96 H 19 100 04/26/22 03:30 99 H 17 100 04/26/22 03:14 102 H 04/26/22 03:00 108 H 20 98 04/26/22 02:30 98 H 16 100 04/26/22 02:00 97 H 17 100 04/26/22 01:30 96 H 18 100 04/26/22 01:00 97 H 16 100 04/26/22 00:30 96 H 16 100 04/26/22 00:00 99.8 F H 94 H 17 99 04/25/22 23:38 100 H 118/58 100 04/25/22 23:30 95 H 17 100 04/25/22 23:06 96 H 15 98 04/25/22 23:05 103 H 04/25/22 23:04 117 H 17 100 04/25/22 23:00 107 H 16 100 04/25/22 22:30 105 H 16 100 04/25/22 22:00 105 H 15 100 04/25/22 21:30 107 H 17 100 04/25/22 21:00 105 H 16 100 04/25/22 20:30 109 H 18 99 04/25/22 20:00 102 H 16 100 04/25/22 19:45 110 H 110/57 99 04/25/22 19:43 100.4 F H 04/25/22 19:31 110 H 16 120/70 99 04/25/22 19:14 103 H 16 98 04/25/22 19:01 104 H 16 120/70 98 04/25/22 19:00 109 H 04/25/22 18:31 123 H 17 120/70 97 04/25/22 18:27 133 H 164/76 96 04/25/22 18:01 112 H 20 120/70 99 04/25/22 17:34 116 H 21 130/64 99 04/25/22 17:31 114 H 25 H 120/70 98 04/25/22 17:01 117 H 16 120/70 99 04/25/22 16:31 123 H 21 120/70 98 04/25/22 16:01 120 H 15 120/70 98 04/25/22 16:00 99.6 F 114 H 23 98 04/25/22 15:31 119 H 20 120/70 98 04/25/22 15:01 118 H 19 120/70 98 04/25/22 15:00 119 H 04/25/22 14:31 127 H 13 120/70 98 04/25/22 14:01 118 H 14 120/70 100 04/25/22 13:31 104 H 12 120/70 100 04/25/22 13:01 104 H 13 120/70 100 08/13/22 12:31 116 H 16 120/70 100 04/25/22 12:01 114 H 14 120/70 100 04/25/22 12:00 98.9 F 110 H 16 100 04/25/22 11:46 108 H 99/86 100 04/25/22 11:31 120 H 16 120/70 99 - Physical Examination General: Other (Patient is intubated, sedated, on the vent) HEENT: Positive: Other (Pupils fixed) Neck: Positive: neck supple Cardiac: Positive: Regular Rate, irregularly irregular, S1/S2, S3, PMI, Dilated, Laterally Displaced Lungs: Positive: Rhonchi. Negative: Wheezes Neuro: Positive: Other (Intubated, sedated on the vent, unable to assess) Abdomen: Positive: Soft Skin: Positive: Other (Blisters on the right hand) Extremities: Present: edema (Trace) - Labs and Meds CBC 04/26/22 Range/Units 05:20 Hgb 9.4 L (11.8-15.2) gm/dl Hct 30.1 L (35.5-45.6) % Plt Count 306 (140-440) K/mm3 Comprehensive Metabolic Panel 04/26/22 Range/Units 05:20 Sodium 147 H (137-145) mmol/L Potassium 3.6 (3.6-5.0) mmol/L Chloride 106.1 (98-107) mmol/L Carbon Dioxide 33 H (22-30) mmol/L BUN 27 H (9-20) mg/dL Creatinine 1.6 H (0.8-1.3) mg/dL Glucose 221 H (75-100) mg/dL Calcium 8.4 (8.4-10.2) mg/dL - Allied health notes Allied health notes reviewed: nursing
--- NOTE | 2022-04-26 11:48 | Progress Note ---
Assessment and Plan VINCENT /TASHA - Improved BUN/Cr on resuming IVF, continue f/u as present & avoid Diuretics Lytes - Continue Hypotonic IVF & Free water Flushes per TF, f/u improving HyperNa, cautiously increase IVF, 75 to 100ml/hr & f/u worsening Alkalosis. F/u urine output Vitals - On Dobutamine, f/u per Cardiology S/p V Fib Arrest - Nonischemic Cardiomyopathy. F/u Mx Resp Failure - Vent weaning per Pulm Subjective Date of service: 04/26/22 Principal diagnosis: AHRF; AMS; Pneumonia; Shock; DM II; Severe Metabolic Acidosis Interval history: No change Objective - Vital Signs Vital signs: Vital Signs - 12hr 04/26/22 04/26/22 04/26/22 00:00 00:30 01:00 Temperature 99.8 F H Pulse Rate 94 H 96 H 97 H Pulse Rate [ From Monitor] Respiratory 17 16 16 Rate Respiratory Rate [no] Blood Pressure O2 Sat by Pulse 99 100 100 Oximetry 04/26/22 04/26/22 04/26/22 01:30 02:00 02:30 Temperature Pulse Rate 96 H 97 H 98 H Pulse Rate [ From Monitor] Respiratory 18 17 16 Rate Respiratory Rate [no] Blood Pressure O2 Sat by Pulse 100 100 100 Oximetry 04/26/22 04/26/22 04/26/22 03:00 03:14 03:30 Temperature Pulse Rate 108 H 102 H 99 H Pulse Rate [ From Monitor] Respiratory 20 17 Rate Respiratory Rate [no] Blood Pressure O2 Sat by Pulse 98 100 Oximetry 04/26/22 04/26/22 04/26/22 04:00 04:30 04:32 Temperature 100 F H Pulse Rate 100 H 94 H 91 H Pulse Rate [ 96 H From Monitor] Respiratory 19 17 Rate Respiratory Rate [no] Blood Pressure 130/58 O2 Sat by Pulse 100 100 100 Oximetry 04/26/22 04/26/22 04/26/22 05:00 05:30 06:00 Temperature Pulse Rate 98 H 103 H 99 H Pulse Rate [ From Monitor] Respiratory 17 14 16 Rate Respiratory Rate [no] Blood Pressure O2 Sat by Pulse 99 99 100 Oximetry 04/26/22 04/26/22 04/26/22 06:30 07:00 07:28 Temperature 99.6 F Pulse Rate 94 H 97 H Pulse Rate [ From Monitor] Respiratory 18 19 Rate Respiratory Rate [no] Blood Pressure O2 Sat by Pulse 99 100 Oximetry 04/26/22 04/26/22 04/26/22 07:30 07:50 08:00 Temperature 99.6 F Pulse Rate 93 H 103 H 105 H Pulse Rate [ 96 H From Monitor] Respiratory 18 21 19 Rate Respiratory Rate [no] Blood Pressure 135/69 O2 Sat by Pulse 99 98 99 Oximetry 04/26/22 04/26/22 04/26/22 08:30 09:00 09:30 Temperature Pulse Rate 104 H 105 H 107 H Pulse Rate [ From Monitor] Respiratory 23 21 16 Rate Respiratory Rate [no] Blood Pressure O2 Sat by Pulse 98 99 99 Oximetry 04/26/22 04/26/22 04/26/22 10:00 10:30 11:00 Temperature Pulse Rate 119 H 118 H 118 H Pulse Rate [ From Monitor] Respiratory 29 H 21 25 H Rate Respiratory 17 Rate [no] Blood Pressure O2 Sat by Pulse 96 98 98 Oximetry - General Appearance General appearance: sedated on ventilator, other (No change) - Lab 04/26/22 05:20 04/26/22 05:20 Most recent lab results ABG pH 7.408 pH Units (7.350-7.450) 04/25/22 18:00 ABG pCO2 52.6 mm Hg 04/25/22 18:00 ABG pO2 81.4 mm Hg (80.0-90.0) 04/25/22 18:00 ABG HCO3 32.4 mmol/L (20.0-26.0) H 04/25/22 18:00 ABG O2 Saturation 97.0 % (95.0-99.0) 04/25/22 18:00 Calcium 8.4 mg/dL (8.4-10.2) 04/26/22 05:20 Phosphorus 3.60 mg/dL (2.5-4.5) 04/26/22 05:20 Magnesium 2.00 mg/dL (1.7-2.3) 04/26/22 05:20 Urine Creatinine 90.9 mg/dL (0.1-20.0) H 04/19/22 02:08 Urine Sodium 54 mmol/L 04/19/22 02:08 Medications & Allergies - Medications Allergies/Adverse Reactions: Allergies No Known Allergies Allergy (Unverified 04/17/22 19:30) Home Medications: Home Medications Medication Instructions Recorded Confirmed Last Taken Type AtorvaSTATin 40 mg PO QHS 04/22/22 04/22/22 Unknown History Humulin N 22 units SQ QHS 04/22/22 04/22/22 Unknown History amLODIPine 10 mg PO QAM 04/22/22 04/22/22 Unknown History glipiZIDE 20 mg PO BID 04/22/22 04/22/22 Unknown History metFORMIN 850 mg PO TID 04/22/22 04/22/22 Unknown History Active Medications: Generic Name Dose Route Start Last Admin Trade Name Freq PRN Reason Stop Dose Admin Acetaminophen 650 mg 04/17/22 19:48 04/24/22 23:41 Acetaminophen 325 Mg Tab PO 650 mg Q6H PRN Administration Pain MILD(1-3)/Fever >100.5/CHE Albuterol 2.5 mg 04/17/22 19:48 Albuterol 2.5 Mg/3 Ml Nebu IH Q3HRT PRN Shortness Of Breath Amiodarone HCl 400 mg 04/26/22 22:00 Amiodarone 200 Mg Tab PO BID FLACO Aspirin 81 mg 04/20/22 12:00 04/26/22 09:30 Aspirin 81 Mg Tab Chew FEEDTUBE 81 mg QDAY FLACO Administration Atorvastatin Calcium 20 mg 04/20/22 22:00 04/25/22 20:59 Atorvastatin 20 Mg Tab FEEDTUBE 20 mg QHS FLACO Administration Dextrose 0 ml 04/17/22 23:46 Dextrose 50% In Water (25gm) 50 Ml Syringe IV Q30MIN PRN Hypoglycemia Protocol Diphenhydramine HCl 25 mg 04/26/22 10:00 04/26/22 10:00 Diphenhydramine 50 Mg/Ml Vial IV 25 mg Q6H FLACO Administration Famotidine 20 mg 04/20/22 10:00 04/26/22 09:30 Famotidine 20 Mg Tab FEEDTUBE 20 mg DAILY FLACO Administration Fentanyl 50 mcg 04/17/22 20:22 04/18/22 03:52 Fentanyl 100 Mcg/2 Ml Inj IV 50 mcg Q10MIN PRN Administration ANALGESIA Heparin Sodium (Porcine) 5,000 unit 04/21/22 22:00 04/26/22 09:30 Heparin 5,000 Unit/1 Ml Vial SUB-Q 5,000 unit Q12HR FLACO Administration Hydrophilic Ointment 1 applic 08/06/22 06:02 Lip Therapy Vaseline TP Q2HR PRN Dry Lips Fentanyl Citrate 2,000 mcg in 100 mls @ 5.443 mls/hr 04/17/22 21:00 04/26/22 10:41 Fentanyl Drip Premix IV 2 mcg/kg/hr TITR FLACO 10.886 mls/hr Administration Protocol 1 MCG/KG/HR Propofol 1,000 mg in 100 mls @ 3.456 mls/hr 04/18/22 07:00 04/26/22 09:00 Diprivan 10 Mg/Ml IV 0 mcg/kg/min TITR FLACO 0 mls/hr Titration Protocol 5 MCG/KG/MIN Dobutamine HCl 500 mg/ 250 mls @ 8.64 mls/hr 04/22/22 14:00 04/26/22 03:06 Dextrose IV 2.5 mcg/kg/min DIRECT FLACO 8.64 mls/hr Administration 2.5 MCG/KG/MIN Dextrose 1,000 mls @ 75 mls/hr 04/25/22 14:00 04/26/22 03:06 D5w IV 75 mls/hr DIRECT FLACO Administration Insulin Glargine 50 units 04/26/22 22:00 Insulin Glargine 100 Units/Ml SUB-Q QHS [facility] Insulin Human Lispro 0 unit 04/18/22 00:00 04/26/22 06:01 Insulin Lispro 100 Unit/Ml SUB-Q 4 unit Q6HR FLACO Administration Protocol Insulin Human Lispro 8 unit 04/26/22 12:00 Insulin Lispro 100 Unit/Ml SUB-Q Q6HR [facility] Multi-Ingred Cream/Lotion/Oil/Oint 1 applic 04/18/22 06:02 Mineral Oil/Petrolatum, White Ophth Oint 3.5 Gm OU Q4HR PRN Dry Eye(s) Oxycodone/Acetaminophen 1 tab 04/22/22 11:05 Oxycodone /Acetaminophen 5-325mg Tab FEEDTUBE Q6H PRN Pain, Moderate (4-6) Quetiapine Fumarate 100 mg 04/22/22 22:00 04/25/22 20:59 Quetiapine 100 Mg Tab FEEDTUBE 100 mg BID FLACO Administration Senna/Docusate Sodium 1 tab 04/18/22 10:00 04/26/22 09:25 Sennosides/Docusate Sodium 8.6/50 Mg Tab FEEDTUBE 1 tab BID FLACO Administration Sodium Chloride 10 ml 04/17/22 22:00 04/26/22 09:30 Sodium Chloride 0.9% 10 Ml Flush Syringe IV 10 ml BID FLACO Administration Sodium Chloride 10 ml 04/17/22 19:48 Sodium Chloride 0.9% 10 Ml Flush Syringe IV PRN PRN LINE FLUSH
--- NOTE | 2022-04-26 13:04 | Progress Note ---
<MOHIT MARTE - Last Filed: 04/26/22 12:45> Assessment and Plan Assessment and plan: This is a 62 year old male with OHS, HTN, DM, metabolic syndrome, s/p vfib cardiac arrest, Septic shock, aspiration pneumonia, transaminitis, VINCENT with acute metabolic encephalopathy Neuro: Acute metabolic encephalopathy, facial contusions s/p fall -CT head showed no focal intra-axial mass, hemorrhage, hydrocephalus or acute or large territorial infarct -Sedated with propofol and fentanyl -wean propofol as tolerated -RASS goal 0 to -1 -Seroquel 100 mg bid -EKG to monitor qTc -Reorientation as needed -Maintain sleep-wake cycle -Neurology consulted, appreciate recommendations -As needed analgesia Cardiac: A. fib RVR , s/p V. fib cardiac arrest, cardiogenic shock, h/o atrial fibrillation s/p cardioversion, HTN -Cardiology consulted, appreciate recommendations -S/p V. fib cardiac arrest -S/p dopamine drip and dobutamine drip which resolved tachycardia -Amio gtt changed to PO -s/p IV heparin -Blood pressure monitoring per protocol -s/p Vasopressor support with levophed, epinephrine, vasopressin -Dobutamine gtt -Echocardiogram shows EF of 15 to 20% -Left heart cath showed severe nonischemic cardiomyopathy with patent coronary arteries, which per cardiology presumably resulted in a primary cardiac arrest. -Per cardio: When blood pressure tolerates, he will need optimal medical therapy for afterload, beta-blockers, and long-term oral anticoagulation. Eventually fro m a cardiac standpoint, will need predischarge device therapy for secondary prevention of SCD, once he is off the vent and clinical status is optimized. Plan to try digoxin today Respiratory: Acute hypoxic respiratory failure, h/o OHS -CCM consulted, appreciate recommendations -Intubated on 04/17 with 7.0 OETT @ 22 at the lips, reintubated 04/23 -A.m. vent settings: AC tidal volume 500, rate 16, PEEP 8, FiO2 35% -See RT notes for titration -PSV this morning -Chest US shows no pleural effusion -A.m. ABG and CXR noted -VAP bundle -SPO2 monitoring GI: Transaminitis (resolving), moderate protein calorie malnutrition -24 hours -1296 mL -PPI -NTR consulted for tube feedings -BR: Senokot -Trend LFTs : Acute kidney injury likely secondary to vasomotor nephropathy, hypernatremia -Nephrology consulted, appreciate recommendations -Monitor intake and output -Renally dose medications -Avoid nephrotoxic medications -s/p bicarb gtt -MIVF per nephrology -FWF -Renal ultrasound shows distended gallbladder, no cholecystic fluid -Trend BMP ID: Aspiration pneumonia, Sepsis, lactic acidosis -CTA chest shows extensive bilateral airspace disease present dependent portions and greater in the upper lobes, given distribution could be related to aspiration -Admitted with hypotension, lactic acidosis, acute kidney injury -Antibiotic therapy with Levaquin -f/u blood culture -Monitor WBC and temperature curve Endo: h/o DM -Avoid hypoglycemia -SSI -Accu-Cheks q. 6 -Long-acting insulin, titrate as needed Heme: Leukocytosis, elevated D-dimer -CTA chest shows no pulmonary embolism -Trend CBC -Transfuse for hemoglobin less than 7 -Bilateral Doppler ultrasound showed no DVT -SCDs to BLE while in bed The high probability of a clinically significant, sudden or life threatening deterioration of the [multiple] system(s) required my full and direct attention, intervention and personal management. The aggregate critical care time was [60] minutes. This time is in addition to time spent performing reported procedures but includes the following: [x] Data Review and interpretation [x] Patient assessment and monitoring of vital signs [x] Documentation [x] Medication orders and management Disposition Plan: icu Total Time Spent with Patient (Minutes): 60 History Interval history: This is is a 62-year-old male with OHS, HTN, DM, metabolic syndrome presents the emergency department on 04/17 via EMS s/p cardiac arrest. As per family patient presented to [facility] for evaluation for chest pain and subsequently went to the restroom where he was found unresponsive and EMS arrived and noted the patient had a V. fib arrest and ACLS was initiated and patient was transported to [facility] for further evaluation. Patient was noted to have aspirated into the oropharynx with suspected aspiration pneumonia complicated by acute hypoxic respiratory failure, septic shock and cardiac arrest. Patient was initiated on the sepsis protocol, IV vasopressor support and admitted to the ICU with consults to CCM, nephrology and cardiology. Hospital Course to Date: 04/18: Severely acidotic this am, now on bcarb gtt. On high dose pressors- Levophed and Vaso. Afib in control rate on the monitor, on Amiodarone and heparin gtt per protocol. Cardiology is following. Patient remains afebrile and leukocytosis improved this am. Now with worsen renal function and low UOP. Patient's EF is 25 to 30%, Dobutamine gtt initiated. Continue current IV abx, continue to trend troponin and lactic acid. Nephrology also consulted for fu rther recs. BLE swelling noted, BLE doppler ordered to r/o DVT. 04/19: Agitation with low SPO2 overnight, sedation increased. This am ABG with worsen hypoxia on 40% Fio2, SPO2 at 90% this am. Fio2 increased to 50%, SPO2 improved above 92%. Remains on multiple pressors and bcarb gtt. Now on dopamine gtt, in Afib with RVR on the monitor. Still on Amiodarone and heparin gtts. Echo noted, EF 15 to 20%. Cardiology is following. With worsen renal function, however making urine this am. No indication for CONSULTING PROJECT DIRECTOR at this per Nephro. Will continue to monitor. Monitor and replace electrolytes as needed 04/20: Nephrology spoke to at bedside re HD, cardiology will proceed with LHC if patient is to recieve HD post procedure, vent changes per [facility], Sedated with fentanyl and propofol with heparin and amio gtt infusing. 04/21: LHC today. Nephrology will continue IVF and if renal function worsens then will proceed HD with consent from family. Patient became hypoxic with FiO2 at 40% yesterday evening and is currently at 65%. 04/22: Patient was started on vasopressin IV fluids yesterday and his creatinine decreased from 4.2 to 2.9. Patient severely agitated while on propofol and fentanyl. Started low-dose Seroquel and started to wean propofol as tolerated. Patient does follow commands today. Increase in lantus. IV fluids decreased, started on dobutamine per [facility] and wean vasopressin for target MAP of 65-70 and SBP greater than 110 04/23: This morning patient being extremely hypertensive with SBP into 200s and given metoprolol. Rn asked to wean propofol as tolerated. Dobutamine decreased to 2.5. Cr improved. US chest completed and showed no pleural effusions. This afternoon alerted by RN that RT believes pt bite through his tube and anesthesia was called to bedside for tube exchange. Decision was made to extubate and reintubate the patient. CXR ordered. 04/24: Patient placed on CPAP trial. Renal numbers look better today. Cardiology would like to try digoxin. No acute events reported overnight. 04/25: Patient now with hypernatremia, slightly increased renal function today but still putting out over 1 L urine over the past 24 hours. Will increase free water flushes and repleate potassium cautiously. Cardilogy will like to continue current management. PSV when able 04/26: Cardiology will increase amiodarone due to heart rate being in the 110s to 120s and will hold off digoxin, remains on dobutamine drip. Hypernatremia improving. Remains on D5 W per nephrology. PSV this AM. Rash noted to trunk, arms, chest. RN to hold off Seroquel. Started on IV Benadryl. Already n.p.o. famotidine. Updated [place] physician who also informed me that the patient is allergic to lisinopril (angioedema) Hospitalist Physical - Physical exam Narrative exam: General appearance: Present: no acute distress, other (Intubated and Sedated) - EENT Eyes: Present: PERRL, EOM intact ENT: hearing decreased - Neck Neck: Present: normal ROM - Respiratory Respiratory effort: normal Respiratory: bilateral: diminished, rhonchi - Cardiovascular Rhythm: irregularly irregular Heart Sounds: Present: S1 & S2. Absent: systolic murmur, diastolic murmur - Extremities Extremities: no ischemia, pulses intact Extremity abnormal: edema Peripheral Pulses: within normal limits - Abdominal General gastrointestinal: soft, non-tender, non-distended, normal bowel sounds - Integumentary Integumentary: Present: warm, dry, rash noted generalized, flat - Neurologic Neurologic: other (follows commands, intact cough/gag) - Allied Health Allied health notes reviewed: nursing, RT - Constitutional Vitals: Temp Pulse Resp BP Pulse Ox 98.7 F 125 H 23 149/69 98 04/26/22 12:35 04/26/22 11:51 04/26/22 11:51 04/26/22 11:51 04/26/22 11:51 General appearance: Present: no acute distress, other (Intubated and Sedated) HEART Score - HEART Score Troponin: Troponin T 2.980 ng/mL (0.00-0.029) H* 04/19/22 07:11 Results - Labs CBC & Chem 7: 04/26/22 05:20 04/26/22 05:20 Labs: Laboratory Last Values WBC 19.7 K/mm3 (4.5-11.0) H 04/25/22 03:30 RBC 3.39 M/mm3 (3.65-5.03) L 04/25/22 03:30 Hgb 9.4 gm/dl (11.8-15.2) L 04/26/22 05:20 Hct 30.1 % (35.5-45.6) L 04/26/22 05:20 MCV 89 fl (84-94) 04/25/22 03:30 MCH 29 pg (28-32) 04/25/22 03:30 MCHC 32 % (32-34) 04/25/22 03:30 RDW 15.6 % (13.2-15.2) H 04/25/22 03:30 Plt Count 306 K/mm3 (140-440) 04/26/22 05:20 Lymph % (Auto) 4.7 % (13.4-35.0) L 04/25/22 03:30 Clay % (Auto) 6.2 % (0.0-7.3) 04/25/22 03:30 Eos % (Auto) 5.0 % (0.0-4.3) H 04/25/22 03:30 Baso % (Auto) 0.1 % (0.0-1.8) 04/25/22 03:30 Lymph # (Auto) 0.9 K/mm3 (1.2-5.4) L 04/25/22 03:30 Clay # (Auto) 1.2 K/mm3 (0.0-0.8) H 04/25/22 03:30 Eos # (Auto) 1.0 K/mm3 (0.0-0.4) H 04/25/22 03:30 Baso # (Auto) 0.0 K/mm3 (0.0-0.1) 04/25/22 03:30 Add Manual Diff Complete 04/23/22 04:19 Total Counted 100 04/23/22 04:19 Seg Neutrophils % 84.0 % (40.0-70.0) H 04/25/22 03:30 Seg Neuts % (Manual) 74.0 % (40.0-70.0) H 04/23/22 04:19 Band Neutrophils % 2.0 % 04/23/22 04:19 Lymphocytes % (Manual) 10.0 % (13.4-35.0) L 04/23/22 04:19 Reactive Lymphs % (Man) 0 % 04/23/22 04:19 Monocytes % (Manual) 7.0 % (0.0-7.3) 04/23/22 04:19 Eosinophils % (Manual) 7.0 % (0.0-4.3) H 04/23/22 04:19 Basophils % (Manual) 0 % (0.0-1.8) 04/23/22 04:19 Metamyelocytes % 0 % 04/23/22 04:19 Myelocytes % 0 % 04/23/22 04:19 Promyelocytes % 0 % 04/23/22 04:19 Blast Cells % 0 % 04/23/22 04:19 Nucleated RBC % Not Reportable 04/23/22 04:19 Seg Neutrophils # 16.5 K/mm3 (1.8-7.7) H 04/25/22 03:30 Seg Neutrophils # Man 8.0 K/mm3 (1.8-7.7) H 04/23/22 04:19 Band Neutrophils # 0.2 K/mm3 04/23/22 04:19 Lymphocytes # (Manual) 1.1 K/mm3 (1.2-5.4) L 04/23/22 04:19 Abs React Lymphs (Man) 0.0 K/mm3 04/23/22 04:19 Monocytes # (Manual) 0.8 K/mm3 (0.0-0.8) 04/23/22 04:19 Eosinophils # (Manual) 0.8 K/mm3 (0.0-0.4) H 04/23/22 04:19 Basophils # (Manual) 0.0 K/mm3 (0.0-0.1) 04/23/22 04:19 Metamyelocytes # 0.0 K/mm3 04/23/22 04:19 Myelocytes # 0.0 K/mm3 04/23/22 04:19 Promyelocytes # 0.0 K/mm3 04/23/22 04:19 Blast Cells # 0.0 K/mm3 04/23/22 04:19 WBC Morphology Not Reportable 04/23/22 04:19 Hypersegmented Neuts Not Reportable 04/23/22 04:19 Hyposegmented Neuts Not Reportable 04/23/22 04:19 Hypogranular Neuts Not Reportable 04/23/22 04:19 Smudge Cells Not Reportable 04/23/22 04:19 Toxic Granulation Not Reportable 04/23/22 04:19 Toxic Vacuolation Not Reportable 04/23/22 04:19 Dohle Bodies Not Reportable 04/23/22 04:19 Pelger-Huet Anomaly Not Reportable 04/23/22 04:19 Regla Rods Not Reportable 04/23/22 04:19 Platelet Estimate Consistent w auto 04/23/22 04:19 Clumped Platelets Not Reportable 04/23/22 04:19 Plt Clumps, EDTA Not Reportable 04/23/22 04:19 Large Platelets Not Reportable 04/23/22 04:19 Giant Platelets Not Reportable 04/23/22 04:19 Platelet Satelliting Not Reportable 04/23/22 04:19 Plt Morphology Comment Not Reportable 04/23/22 04:19 RBC Morphology Not Reportable 04/23/22 04:19 Dimorphic RBCs Not Reportable 04/23/22 04:19 Polychromasia Not Reportable 04/23/22 04:19 Hypochromasia Not Reportable 04/23/22 04:19 Poikilocytosis Not Reportable 04/23/22 04:19 Anisocytosis Not Reportable 04/23/22 04:19 Microcytosis Not Reportable 04/23/22 04:19 Macrocytosis Not Reportable 04/23/22 04:19 Spherocytes Not Reportable 04/23/22 04:19 Pappenheimer Bodies Not Reportable 04/23/22 04:19 Sickle Cells Not Reportable 04/23/22 04:19 Target Cells Not Reportable 04/23/22 04:19 Tear Drop Cells Not Reportable 04/23/22 04:19 Ovalocytes Not Reportable 04/23/22 04:19 Helmet Cells Not Reportable 04/23/22 04:19 [place] Bodies Not Reportable 04/23/22 04:19 Gary Rings Not Reportable 04/23/22 04:19 Meggan Cells Not Reportable 04/23/22 04:19 Bite Cells Not Reportable 04/23/22 04:19 Crenated Cell Not Reportable 04/23/22 04:19 Elliptocytes Not Reportable 04/23/22 04:19 Acanthocytes (Spur) Not Reportable 04/23/22 04:19 Rouleaux Not Reportable 04/23/22 04:19 Hemoglobin C Crystals Not Reportable 04/23/22 04:19 Schistocytes Not Reportable 04/23/22 04:19 Malaria parasites Not Reportable 04/23/22 04:19 [place] Bodies Not Reportable 04/23/22 04:19 Hem Pathologist Commnt No 04/23/22 04:19 PT 15.6 Sec. (12.2-14.9) H 04/18/22 Unknown INR 1.08 (0.87-1.13) 04/18/22 Unknown APTT 28.6 Sec. (24.2-36.6) 04/18/22 Unknown Activated Coag Time 179 (74-137) H 04/21/22 12:14 Heparin Anti-Xa Level 0.16 U.I./ml (0.3-0.7) L 04/21/22 04:00 ABG pH 7.408 pH Units (7.350-7.450) 04/25/22 18:00 ABG pCO2 52.6 mm Hg 04/25/22 18:00 ABG pO2 81.4 mm Hg (80.0-90.0) 04/25/22 18:00 ABG HCO3 32.4 mmol/L (20.0-26.0) H 04/25/22 18:00 ABG O2 Saturation 97.0 % (95.0-99.0) 04/25/22 18:00 ABG O2 Content 12.7 (0.0-44) 04/25/22 18:00 ABG Base Excess 6.8 mmol/L (-2.0-3.0) H 04/25/22 18:00 ABG Hemoglobin 9.5 gm/dl (14.0-18.0) L 04/25/22 18:00 ABG Carboxyhemoglobin 1.6 % (0.0-5.0) 04/25/22 18:00 ABG Methemoglobin 0.4 % (0.0-1.5) 04/25/22 18:00 Oxyhemoglobin 95.0 % (95.0-99.0) 04/25/22 18:00 FiO2 35 % 04/25/22 18:00 Sodium 147 mmol/L (137-145) H 04/26/22 05:20 Potassium 3.6 mmol/L (3.6-5.0) 04/26/22 05:20 Chloride 106.1 mmol/L (98-107) 04/26/22 05:20 Carbon Dioxide 33 mmol/L (22-30) H 04/26/22 05:20 Anion Gap 12 mmol/L 04/26/22 05:20 BUN 27 mg/dL (9-20) H 04/26/22 05:20 Creatinine 1.6 mg/dL (0.8-1.3) H 04/26/22 05:20 Estimated GFR 53 ml/min 04/26/22 05:20 BUN/Creatinine Ratio 17 % 04/26/22 05:20 Glucose 221 mg/dL (75-100) H 04/26/22 05:20 POC Glucose 263 mg/dL (70-105) H 04/26/22 11:39 Lactic Acid 1.90 mmol/L (0.7-2.0) 04/21/22 04:20 Calcium 8.4 mg/dL (8.4-10.2) 04/26/22 05:20 Phosphorus 3.60 mg/dL (2.5-4.5) 04/26/22 05:20 Magnesium 2.00 mg/dL (1.7-2.3) 04/26/22 05:20 Total Bilirubin 0.70 mg/dL (0.1-1.2) 04/24/22 06:00 AST 35 units/L (5-40) 04/24/22 06:00 ALT 99 units/L (7-56) H 04/24/22 06:00 Alkaline Phosphatase 141 units/L (35-129) H 04/24/22 06:00 Total Creatine Kinase 973 units/L (55-170) H 04/22/22 04:00 CK-MB (CK-2) 28.5 ng/mL (0.0-4.0) H 04/19/22 07:11 CK-MB (CK-2) Rel Index 0.8 (0-4) 04/19/22 07:11 Troponin T 2.980 ng/mL (0.00-0.029) H* 04/19/22 07:11 Total Protein 6.2 g/dL (6.3-8.2) L 04/24/22 06:00 Albumin 2.2 g/dL (3.9-5) L 04/24/22 06:00 Albumin/Globulin Ratio 0.6 % 04/24/22 06:00 Triglycerides 230 mg/dL (2-149) H 04/23/22 04:19 Cholesterol 106 mg/dL (50-199) 04/17/22 19:56 LDL Cholesterol Direct 57 mg/dL (50-130) 04/17/22 19:56 HDL Cholesterol 40 mg/dL (40-59) 04/17/22 19:56 Cholesterol/HDL Ratio 2.65 % 04/17/22 19:56 Procalcitonin 44.70 ng/mL (<0.15) 04/22/22 04:32 Urine Color Yellow (Yellow) 04/19/22 02:08 Urine Turbidity Slightly cloudy (Clear) 04/19/22 02:08 Urine pH 5.0 (5.0-7.0) 04/19/22 02:08 Ur Specific Cotter 1.005 (1.003-1.030) 04/19/22 02:08 Urine Protein 30 mg/dl mg/dL (Negative) 04/19/22 02:08 Urine Glucose (UA) Negative mg/dL (Negative) 04/19/22 02:08 Urine Ketones Negative mg/dL (Negative) 04/19/22 02:08 Urine Blood Large (Negative) A 04/19/22 02:08 Urine Nitrite Negative (Negative) 04/19/22 02:08 Ur Reducing Substances Not Reportable 04/19/22 02:08 Urine Bilirubin Negative (Negative) 04/19/22 02:08 Urine Ictotest Not Reportable 04/19/22 02:08 Urine Urobilinogen 0.2 mg/dL (<2.0) 04/19/22 02:08 Ur Leukocyte Esterase Negative (Negative) 04/19/22 02:08 Urine WBC (Auto) 88.0 /HPF (0.0-6.0) H 04/19/22 02:08 Urine RBC (Auto) 60.0 /HPF (0.0-6.0) 04/19/22 02:08 Urine Bacteria (Auto) 2+ /HPF (Negative) 04/19/22 02:08 Urine WBC Clumps 3+ /HPF 04/19/22 02:08 RBC Casts 34 /LPF 04/19/22 02:08 Urine Mucus 1+ /HPF 04/19/22 02:08 Urine Yeast (Budding) 3+ /HPF 04/19/22 02:08 Urine Eosinophils None seen (None Seen) 04/19/22 02:08 Urine Creatinine 90.9 mg/dL (0.1-20.0) H 04/19/22 02:08 Urine Sodium 54 mmol/L 04/19/22 02:08 Blood Type A POSITIVE 04/21/22 04:37 Antibody Screen Negative 04/21/22 04:37 Microbiology: Microbiology 04/26/22 05:20 Peripheral/Venous Blood Culture - Preliminary Culture in Progress [place]/IV: Voiding Method Indwelling Catheter Active Medications - Current Medications Current Medications: Generic Name Dose Route Start Last Admin Trade Name Freq PRN Reason Stop Dose Admin Acetaminophen 650 mg 04/17/22 19:48 04/24/22 23:41 Acetaminophen 325 Mg Tab PO 650 mg Q6H PRN Administration Pain MILD(1-3)/Fever >100.5/CHE Albuterol 2.5 mg 04/17/22 19:48 Albuterol 2.5 Mg/3 Ml Nebu IH Q3HRT PRN Shortness Of Breath Amiodarone HCl 400 mg 04/26/22 22:00 Amiodarone 200 Mg Tab PO BID FLACO Aspirin 81 mg 04/20/22 12:00 04/26/22 09:30 Aspirin 81 Mg Tab Chew FEEDTUBE 81 mg QDAY FLACO Administration Atorvastatin Calcium 20 mg 04/20/22 22:00 04/25/22 20:59 Atorvastatin 20 Mg Tab FEEDTUBE 20 mg QHS FLACO Administration Dextrose 0 ml 04/17/22 23:46 Dextrose 50% In Water (25gm) 50 Ml Syringe IV Q30MIN PRN Hypoglycemia Protocol Diphenhydramine HCl 25 mg 04/26/22 10:00 04/26/22 10:00 Diphenhydramine 50 Mg/Ml Vial IV 25 mg Q6H FLACO Administration Famotidine 20 mg 04/20/22 10:00 04/26/22 09:30 Famotidine 20 Mg Tab FEEDTUBE 20 mg DAILY FLACO Administration Fentanyl 50 mcg 04/17/22 20:22 04/18/22 03:52 Fentanyl 100 Mcg/2 Ml Inj IV 50 mcg Q10MIN PRN Administration ANALGESIA Heparin Sodium (Porcine) 5,000 unit 04/21/22 22:00 04/26/22 09:30 Heparin 5,000 Unit/1 Ml Vial SUB-Q 5,000 unit Q12HR FLACO Administration Hydrophilic Ointment 1 applic 04/18/22 06:02 Lip Therapy Vaseline TP Q2HR PRN Dry Lips Fentanyl Citrate 2,000 mcg in 100 mls @ 5.443 mls/hr 04/17/22 21:00 04/26/22 10:41 Fentanyl Drip Premix IV 2 mcg/kg/hr TITR FLACO 10.886 mls/hr Administration Protocol 1 MCG/KG/HR Propofol 1,000 mg in 100 mls @ 3.456 mls/hr 04/18/22 07:00 04/26/22 09:00 Diprivan 10 Mg/Ml IV 0 mcg/kg/min TITR FLACO 0 mls/hr Titration Protocol 5 MCG/KG/MIN Dobutamine HCl 500 mg/ 250 mls @ 8.64 mls/hr 04/22/22 14:00 04/26/22 03:06 Dextrose IV 2.5 mcg/kg/min DIRECT FLACO 8.64 mls/hr Administration 2.5 MCG/KG/MIN Dextrose 1,000 mls @ 100 mls/hr 04/25/22 14:00 04/26/22 03:06 D5w IV 75 mls/hr DIRECT FLACO Administration Insulin Glargine 50 units 04/26/22 22:00 Insulin Glargine 100 Units/Ml SUB-Q QHS FLACO Insulin Human Lispro 0 unit 04/18/22 00:00 04/26/22 12:07 Insulin Lispro 100 Unit/Ml SUB-Q 6 unit Q6HR [facility] Administration Protocol Insulin Human Lispro 8 unit 04/26/22 12:00 04/26/22 12:05 Insulin Lispro 100 Unit/Ml SUB-Q 8 unit Q6HR [facility] Administration Multi-Ingred Cream/Lotion/Oil/Oint 1 applic 04/18/22 06:02 Mineral Oil/Petrolatum, White Ophth Oint 3.5 Gm OU Q4HR PRN Dry Eye(s) Oxycodone/Acetaminophen 1 tab 04/22/22 11:05 Oxycodone /Acetaminophen 5-325mg Tab FEEDTUBE Q6H PRN Pain, Moderate (4-6) Quetiapine Fumarate 100 mg 04/22/22 22:00 04/25/22 20:59 Quetiapine 100 Mg Tab FEEDTUBE 100 mg BID FLACO Administration Senna/Docusate Sodium 1 tab 04/18/22 10:00 04/26/22 09:25 Sennosides/Docusate Sodium 8.6/50 Mg Tab FEEDTUBE 1 tab BID FLACO Administration Sodium Chloride 10 ml 04/17/22 22:00 04/26/22 09:30 Sodium Chloride 0.9% 10 Ml Flush Syringe IV 10 ml BID FLACO Administration Sodium Chloride 10 ml 04/17/22 19:48 Sodium Chloride 0.9% 10 Ml Flush Syringe IV PRN PRN LINE FLUSH Nutrition/Malnutrition Assess - Dietary Evaluation Nutrition/Malnutrition Findings: Nutrition Notes Start: 04/18/22 08:52 Freq: Status: Active Protocol: Document 04/22/22 10:36 ROMELIA (Rec: 04/22/22 10:49 ROMELIA [id number]) Nutrition Notes Initial or Follow up Brief Note Current Diagnosis Acute Kidney Injury,Diabetes, Sepsis,Hypertension, Respiratory Failure Other Pertinent Diagnosis s/p PEA w/ROSC, HFrEF, Pneumonia, Metabolic Acidosis, Cardiogenic Shock, .. Current Diet TF-Nepro w/CARBSTEADY @ 35 ml/ hr (from D 04/21). Height 5 ft 9 in Weight 115.2 kg [place] Body Weight (kg) 72.72 BMI 37.5 Weight change and time frame No body weight change reported in 4 days. Weight Status Obese Subjective/Other Information RD consult for TF tolerance/ continuation assessment. TF continues as prescribed, no further information available at the time. Pt continues on Mechanical Ventilation, O2 saturation @ 95%, according to Physical Assessment History notes. Percent of energy/protein needs met: Prescribed TF-Nepro w/ CARBSTEADY @ 35 ml/hr provides for energy/protein needs (1, 500 Kcal/68 g) during LOS, 77% Kcal; 90% AA. Including 365 Kcal from Propofol: 95% Kcal; 90% AA. #2 Nutrition Diagnosis Altered nutrition-related laboratory values Comments: Prescribed TF-Nepro w/ CARBSTEADY @ 35 ml/hr provides for energy/protein needs (1, 500 Kcal/68 g) during LOS, 77% Kcal; 90% AA. Including 365 Kcal from Propofol: 95% Kcal; 90% AA. Diagnosis Progress(for reassessment Resolved documentation) #1 Nutrition Diagnosis Inadequate oral intake Diagnosis Progress(for reassessment Continues documentation) Is patient on ventilator? Yes Is Patient Ambulatory and/or Out of Bed No REE-([place]-confined to bed) 2323.608 Kcal/Kg value to use for calculation 17 Approximate Energy Requirements Using 1958 kcal/Kg Calculation Used for Recommendations Kcal/kg Additional Notes Protein: 0.8-1.2 g/Kg AdjBW; 75-113 g/day. Fluids: 1 ml/Kcal, or as per MD. Nutrition Intervention Nutrition Support: Continue TF-Nepro w/CARBSTEADY @ 35 ml/hr. Flush: 220 ml water Q 4 hr, or as per MD. Kcal 1,500 Protein (gm) 68 Carbohydrates (gm) 134 Fat (gm) 80 Fluid (mL) 606 Fiber (gm) 11 % RDI: 77% Kcal; 90% AA. Goal #1 Provide at least 75% of energy /protein needs through Enteral Feeding during LOS. Follow-Up By: 04/29/22 Additional Comments Continue monitoring TF tolerance, ventilation status, vasopressors, and BM. <LISA TOWNSEND - Last Filed: 05/04/22 11:28> History Interval history: I saw and evaluated the patient. I agree with the findings and the plan of care as documented in the Nurse Practitioner's~note, with the following corrections and additions. Hospitalist Physical - Constitutional Vitals: Temp Pulse Resp BP Pulse Ox 98.7 F 58 L 31 H 144/80 98 05/04/22 07:13 05/04/22 10:01 05/04/22 10:01 05/04/22 10:01 05/04/22 10:01 HEART Score - HEART Score Troponin: Troponin T 2.980 ng/mL (0.00-0.029) H* 04/19/22 07:11 Results - Labs CBC & Chem 7: 05/03/22 04:46 05/04/22 03:48 Labs: Laboratory Last Values WBC 16.4 K/mm3 (4.5-11.0) H 05/03/22 04:46 RBC 3.08 M/mm3 (3.65-5.03) L 05/03/22 04:46 Hgb 8.8 gm/dl (11.8-15.2) L 05/03/22 04:46 Hct 27.7 % (35.5-45.6) L 05/03/22 04:46 MCV 90 fl (84-94) 05/03/22 04:46 MCH 29 pg (28-32) 05/03/22 04:46 MCHC 32 % (32-34) 05/03/22 04:46 RDW 15.0 % (13.2-15.2) 05/03/22 04:46 Plt Count 596 K/mm3 (140-440) H 05/03/22 04:46 Lymph % (Auto) 5.7 % (13.4-35.0) L 04/29/22 04:20 Clay % (Auto) 7.8 % (0.0-7.3) H 04/29/22 04:20 Eos % (Auto) 3.9 % (0.0-4.3) 04/29/22 04:20 Baso % (Auto) 0.6 % (0.0-1.8) 04/29/22 04:20 Lymph # (Auto) 1.1 K/mm3 (1.2-5.4) L 04/29/22 04:20 Clay # (Auto) 1.5 K/mm3 (0.0-0.8) H 04/29/22 04:20 Eos # (Auto) 0.8 K/mm3 (0.0-0.4) H 04/29/22 04:20 Baso # (Auto) 0.1 K/mm3 (0.0-0.1) 04/29/22 04:20 Add Manual Diff Complete 04/23/22 04:19 Total Counted 100 04/23/22 04:19 Seg Neutrophils % 82.0 % (40.0-70.0) H 04/29/22 04:20 Seg Neuts % (Manual) 74.0 % (40.0-70.0) H 04/23/22 04:19 Band Neutrophils % 2.0 % 08/11/22 04:19 Lymphocytes % (Manual) 10.0 % (13.4-35.0) L 04/23/22 04:19 Reactive Lymphs % (Man) 0 % 04/23/22 04:19 Monocytes % (Manual) 7.0 % (0.0-7.3) 04/23/22 04:19 Eosinophils % (Manual) 7.0 % (0.0-4.3) H 04/23/22 04:19 Basophils % (Manual) 0 % (0.0-1.8) 04/23/22 04:19 Metamyelocytes % 0 % 04/23/22 04:19 Myelocytes % 0 % 04/23/22 04:19 Promyelocytes % 0 % 04/23/22 04:19 Blast Cells % 0 % 04/23/22 04:19 Nucleated RBC % Not Reportable 04/23/22 04:19 Seg Neutrophils # 16.3 K/mm3 (1.8-7.7) H 04/29/22 04:20 Seg Neutrophils # Man 8.0 K/mm3 (1.8-7.7) H 04/23/22 04:19 Band Neutrophils # 0.2 K/mm3 04/23/22 04:19 Lymphocytes # (Manual) 1.1 K/mm3 (1.2-5.4) L 04/23/22 04:19 Abs React Lymphs (Man) 0.0 K/mm3 04/23/22 04:19 Monocytes # (Manual) 0.8 K/mm3 (0.0-0.8) 04/23/22 04:19 Eosinophils # (Manual) 0.8 K/mm3 (0.0-0.4) H 04/23/22 04:19 Basophils # (Manual) 0.0 K/mm3 (0.0-0.1) 04/23/22 04:19 Metamyelocytes # 0.0 K/mm3 04/23/22 04:19 Myelocytes # 0.0 K/mm3 04/23/22 04:19 Promyelocytes # 0.0 K/mm3 04/23/22 04:19 Blast Cells # 0.0 K/mm3 04/23/22 04:19 WBC Morphology Not Reportable 04/23/22 04:19 Hypersegmented Neuts Not Reportable 04/23/22 04:19 Hyposegmented Neuts Not Reportable 04/23/22 04:19 Hypogranular Neuts Not Reportable 04/23/22 04:19 Smudge Cells Not Reportable 04/23/22 04:19 Toxic Granulation Not Reportable 04/23/22 04:19 Toxic Vacuolation Not Reportable 04/23/22 04:19 Dohle Bodies Not Reportable 04/23/22 04:19 Pelger-Huet Anomaly Not Reportable 04/23/22 04:19 Regla Rods Not Reportable 04/23/22 04:19 Platelet Estimate Consistent w auto 04/23/22 04:19 Clumped Platelets Not Reportable 04/23/22 04:19 Plt Clumps, EDTA Not Reportable 04/23/22 04:19 Large Platelets Not Reportable 04/23/22 04:19 Giant Platelets Not Reportable 04/23/22 04:19 Platelet Satelliting Not Reportable 04/23/22 04:19 Plt Morphology Comment Not Reportable 04/23/22 04:19 RBC Morphology Not Reportable 04/23/22 04:19 Dimorphic RBCs Not Reportable 04/23/22 04:19 Polychromasia Not Reportable 04/23/22 04:19 Hypochromasia Not Reportable 04/23/22 04:19 Poikilocytosis Not Reportable 04/23/22 04:19 Anisocytosis Not Reportable 04/23/22 04:19 Microcytosis Not Reportable 04/23/22 04:19 Macrocytosis Not Reportable 04/23/22 04:19 Spherocytes Not Reportable 04/23/22 04:19 Pappenheimer Bodies Not Reportable 04/23/22 04:19 Sickle Cells Not Reportable 04/23/22 04:19 Target Cells Not Reportable 04/23/22 04:19 Tear Drop Cells Not Reportable 04/23/22 04:19 Ovalocytes Not Reportable 04/23/22 04:19 Helmet Cells Not Reportable 04/23/22 04:19 [place] Bodies Not Reportable 04/23/22 04:19 [place] Rings Not Reportable 04/23/22 04:19 [place] Cells Not Reportable 04/23/22 04:19 Bite Cells Not Reportable 04/23/22 04:19 Crenated Cell Not Reportable 04/23/22 04:19 Elliptocytes Not Reportable 04/23/22 04:19 Acanthocytes (Spur) Not Reportable 04/23/22 04:19 Rouleaux Not Reportable 04/23/22 04:19 Hemoglobin C Crystals Not Reportable 04/23/22 04:19 Schistocytes Not Reportable 04/23/22 04:19 Malaria parasites Not Reportable 04/23/22 04:19 [place] Bodies Not Reportable 04/23/22 04:19 Hem Pathologist Commnt No 04/23/22 04:19 PT 15.6 Sec. (12.2-14.9) H 04/18/22 Unknown INR 1.08 (0.87-1.13) 04/18/22 Unknown APTT 28.6 Sec. (24.2-36.6) 04/18/22 Unknown Activated Coag Time 179 (74-137) H 04/21/22 12:14 Heparin Anti-Xa Level 0.16 U.I./ml (0.3-0.7) L 04/21/22 04:00 ABG pH 7.442 pH Units (7.350-7.450) 05/02/22 04:45 ABG pCO2 37.8 mm Hg 05/02/22 04:45 ABG pO2 83.1 mm Hg (80.0-90.0) 05/02/22 04:45 ABG HCO3 25.2 mmol/L (20.0-26.0) 05/02/22 04:45 ABG O2 Saturation 97.0 % (95.0-99.0) 05/02/22 04:45 ABG O2 Content 12.6 (0.0-44) 05/02/22 04:45 ABG Base Excess 1.1 mmol/L (-2.0-3.0) 05/02/22 04:45 ABG Hemoglobin 9.3 gm/dl (14.0-18.0) L 05/02/22 04:45 ABG Carboxyhemoglobin 1.4 % (0.0-5.0) 05/02/22 04:45 ABG Methemoglobin 0.4 % (0.0-1.5) 05/02/22 04:45 Oxyhemoglobin 95.2 % (95.0-99.0) 05/02/22 04:45 FiO2 30 % 05/02/22 04:45 Sodium 141 mmol/L (137-145) 05/04/22 03:48 Potassium 4.5 mmol/L (3.6-5.0) D 05/04/22 03:48 Chloride 110.5 mmol/L (98-107) H 05/04/22 03:48 Carbon Dioxide 22 mmol/L (22-30) 05/04/22 03:48 Anion Gap 13 mmol/L 05/04/22 03:48 BUN 30 mg/dL (9-20) H 05/04/22 03:48 Creatinine 1.0 mg/dL (0.8-1.3) 05/04/22 03:48 Estimated GFR > 60 ml/min 05/04/22 03:48 BUN/Creatinine Ratio 30 % 05/04/22 03:48 Glucose 123 mg/dL (75-100) H 05/04/22 03:48 POC Glucose 117 mg/dL (70-105) H 05/04/22 05:03 Lactic Acid 1.90 mmol/L (0.7-2.0) 04/21/22 04:20 Calcium 8.1 mg/dL (8.4-10.2) L 05/04/22 03:48 Phosphorus 3.20 mg/dL (2.5-4.5) 05/03/22 04:46 Magnesium 2.10 mg/dL (1.7-2.3) 05/03/22 04:46 Total Bilirubin 0.40 mg/dL (0.1-1.2) 05/04/22 03:48 Direct Bilirubin 0.3 mg/dL (0-0.2) H 04/30/22 04:25 Indirect Bilirubin 0.1 mg/dL 04/30/22 04:25 AST 88 units/L (5-40) H 05/04/22 03:48 ALT 122 units/L (7-56) H 05/04/22 03:48 Alkaline Phosphatase 171 units/L (35-129) H 05/04/22 03:48 Total Creatine Kinase 61 units/L (55-170) 04/29/22 04:20 CK-MB (CK-2) 28.5 ng/mL (0.0-4.0) H 04/19/22 07:11 CK-MB (CK-2) Rel Index 0.8 (0-4) 04/19/22 07:11 Troponin T 2.980 ng/mL (0.00-0.029) H* 04/19/22 07:11 C-Reactive Protein 15.30 mg/dL (0.00-1.30) H 04/28/22 08:20 Total Protein 7.2 g/dL (6.3-8.2) 05/04/22 03:48 Albumin 2.2 g/dL (3.9-5) L 05/04/22 03:48 Albumin/Globulin Ratio 0.4 % 05/04/22 03:48 Triglycerides 214 mg/dL (2-149) H 05/01/22 04:00 Cholesterol 106 mg/dL (50-199) 04/17/22 19:56 LDL Cholesterol Direct 57 mg/dL (50-130) 04/17/22 19:56 HDL Cholesterol 40 mg/dL (40-59) 04/17/22 19:56 Cholesterol/HDL Ratio 2.65 % 04/17/22 19:56 Procalcitonin 2.90 ng/mL (<0.15) 04/28/22 Unknown Urine Color Straw (Yellow) 04/28/22 08:35 Urine Turbidity Clear (Clear) 04/28/22 08:35 Urine pH 6.0 (5.0-7.0) 04/28/22 08:35 Ur Specific [place] 1.000 (1.003-1.030) L 04/28/22 08:35 Urine Protein 300 mg/dl mg/dL (Negative) 04/28/22 08:35 Urine Glucose (UA) Negative mg/dL (Negative) 04/28/22 08:35 Urine Ketones Negative mg/dL (Negative) 04/28/22 08:35 Urine Blood 3+ (Negative) 04/28/22 08:35 Urine Nitrite Negative (Negative) 04/28/22 08:35 Ur Reducing Substances Not Reportable 04/28/22 08:35 Urine Bilirubin Negative (Negative) 04/28/22 08:35 Urine Ictotest Not Reportable 04/28/22 08:35 Urine Urobilinogen < 2.0 mg/dL (<2.0) 04/28/22 08:35 Ur Leukocyte Esterase Small (Negative) 04/28/22 08:35 Urine WBC (Auto) 21.0 /HPF (0.0-6.0) H 04/28/22 08:35 Urine RBC (Auto) 9.0 /HPF (0.0-6.0) 04/28/22 08:35 Urine Bacteria (Auto) 2+ /HPF (Negative) 04/19/22 02:08 Urine WBC Clumps 3+ /HPF 04/19/22 02:08 RBC Casts 34 /LPF 04/19/22 02:08 Urine Mucus Few /HPF 04/28/22 08:35 Urine Yeast (Budding) 3+ /HPF 04/19/22 02:08 Urine Eosinophils None seen (None Seen) 04/19/22 02:08 Urine Creatinine 90.9 mg/dL (0.1-20.0) H 04/19/22 02:08 Urine Sodium 54 mmol/L 04/19/22 02:08 Digoxin 0.7 ng/mL (0.9-2.0) L 05/03/22 04:46 Coronavirus (PCR) Positive (Negative) A 04/29/22 09:38 Influenza A (RT-PCR) Negative (Negative) 04/29/22 11:44 Influenza B (RT-PCR) Negative (Negative) 04/29/22 11:44 Blood Type A POSITIVE 04/21/22 04:37 Antibody Screen Negative 04/21/22 04:37 Microbiology: Microbiology 04/28/22 07:26 Tracheal Aspirate Sputum Culture - Final [place]/IV: Voiding Method Urinal Active Medications - Current Medications Current Medications: Generic Name Dose Route Start Last Admin Trade Name Freq PRN Reason Stop Dose Admin Acetaminophen 650 mg 04/17/22 19:48 04/28/22 21:38 Acetaminophen 325 Mg Tab PO 650 mg Q6H PRN Administration Pain MILD(1-3)/Fever >100.5/CHE Albuterol 2.5 mg 04/17/22 19:48 Albuterol 2.5 Mg/3 Ml Nebu IH Q3HRT PRN Shortness Of Breath Ascorbic Acid 500 mg 05/04/22 22:00 Ascorbic Acid 500 Mg Tab PO 05/10/22 10:01 BID FLACO Aspirin 81 mg 05/05/22 10:00 Aspirin 81 Mg Tab Chew PO QDAY [facility] Atorvastatin Calcium 20 mg 05/04/22 22:00 Atorvastatin 20 Mg Tab PO QHS [facility] Dexamethasone 8 mg 04/30/22 10:00 05/04/22 09:27 Dexamethasone 4 Mg/Ml Vial IV 05/09/22 10:01 8 mg DAILY [facility] Administration Dextrose 0 ml 04/17/22 23:46 Dextrose 50% In Water (25gm) 50 Ml Syringe IV Q30MIN PRN Hypoglycemia Protocol Digoxin 0.125 mg 05/04/22 17:00 Digoxin 0.125 Mg Tab PO DAILY@1700 [facility] Docusate Sodium 100 mg 05/04/22 22:00 Docusate Sodium 100 Mg/10 Ml Oral Liqd PO BID [facility] Doxazosin Mesylate 1 mg 05/04/22 22:00 Doxazosin 1 Mg Tab PO QHS [facility] Enoxaparin Sodium 120 mg 05/02/22 10:00 05/04/22 09:26 Enoxaparin 120 Mg/0.8 Ml Inj SUB-Q 120 mg Q12HR [facility] Administration Protocol Famotidine 20 mg 05/04/22 22:00 Famotidine 20 Mg Tab PO BID [facility] Fentanyl 50 mcg 04/17/22 20:22 04/30/22 22:41 Fentanyl 100 Mcg/2 Ml Inj IV 50 mcg Q10MIN PRN Administration ANALGESIA Furosemide 20 mg 05/04/22 18:00 Furosemide 20 Mg Tab PO 0600,1800 [facility] Hydrophilic Ointment 1 applic 04/18/22 06:02 04/26/22 20:29 Lip Therapy Vaseline TP 1 applic Q2HR PRN Administration Dry Lips Cefepime HCl 2 gm in 100 mls @ 200 mls/hr 04/28/22 08:00 05/04/22 09:26 Cefepime/Ns 2 Gm/100 Ml IV 200 mls/hr Q8H [facility] Administration Protocol Remdesivir 100 mg/ Sodium 250 mls @ 500 mls/hr 05/01/22 14:00 05/03/22 15:45 Chloride IV 05/04/22 14:29 500 mls/hr Q24HR@1400 [facility] Administration Insulin Glargine 35 units 05/03/22 22:00 05/03/22 21:01 Insulin Glargine 100 Units/Ml SUB-Q 35 units QHS [facility] Administration Insulin Human Lispro 10 unit 05/04/22 11:30 Insulin Lispro 100 Unit/Ml SUB-Q ACHS [facility] Insulin Human Lispro 0 unit 05/04/22 11:30 Insulin Lispro 100 Unit/Ml SUB-Q ACHS [facility] Protocol Metoprolol Tartrate 12.5 mg 05/04/22 10:00 Metoprolol Tartrate 25 Mg Tab PO BID [facility] Multi-Ingred Cream/Lotion/Oil/Oint 1 applic 04/18/22 06:02 Mineral Oil/Petrolatum, White Ophth Oint 3.5 Gm OU Q4HR PRN Dry Eye(s) Oxycodone/Acetaminophen 1 tab 05/04/22 10:00 Oxycodone /Acetaminophen 5-325mg Tab PO Q6H PRN Pain, Moderate (4-6) Senna/Docusate Sodium 2 tab 05/04/22 10:00 05/04/22 09:46 Sennosides/Docusate Sodium 8.6/50 Mg Tab PO Not Given BID FLACO Sodium Chloride 10 ml 04/17/22 22:00 05/04/22 09:28 Sodium Chloride 0.9% 10 Ml Flush Syringe IV 10 ml BID FLACO Administration Sodium Chloride 10 ml 04/17/22 19:48 Sodium Chloride 0.9% 10 Ml Flush Syringe IV PRN PRN LINE FLUSH Sodium Chloride 50 ml 04/30/22 09:00 05/03/22 15:45 Sodium Chloride 0.9% 50 Ml Ivpb IV 05/04/22 14:01 50 ml Q24HR@1400 [facility]ACO Administration Zinc Sulfate 220 mg 04/30/22 22:00 05/04/22 09:27 Zinc Sulfate 220 Mg Cap PO 05/10/22 10:01 220 mg BID FLACO Administration Nutrition/Malnutrition Assess - Dietary Evaluation Nutrition/Malnutrition Findings: Nutrition Notes Start: 04/18/22 08:52 Freq: Status: Active Protocol: Document 04/29/22 11:29 ROMELIA (Rec: 04/29/22 11:55 ROMELIA [id number]) Nutrition Notes Initial or Follow up Reassessment Current Diagnosis Acute Kidney Injury,Diabetes, Sepsis,Hypertension, Respiratory Failure Other Pertinent Diagnosis s/p PEA w/ROSC, HFrEF, Pneumonia, Transaminitis, Rabdomyolisis, .. Current Diet TF-Nepro w/CARBSTEADY @ 35 ml/ hr (from D 04/21). Labs/Tests 04/29: BUN 30, Crea 1.6, Glu 236, Ca 8.1. Pertinent Medications 04/29: Humalog 4U, Propofol @ 3.456 ml/hr (91 Kcal), mothers nutritionally unremarkable. Height 5 ft 9 in Weight 115.2 kg [place] Body Weight (kg) 72.72 BMI 37.5 Weight change and time frame No body weight change reported in 11 days. Weight Status Obese Subjective/Other Information RD consult for routine F/U on TF tolerance/continuation assessment. TF continues as prescribed, no further information available at the time. Pt continues on Mechanical Ventilation, O2 saturation @ 100%, according to Physical Assessment History notes. Pt remains incontinent, according to Physical Assessment History notes. Pt presents blisters on the groin and on hand, according to Physical Assessment History notes. Percent of energy/protein needs met: Prescribed TF-Nepro w/ CARBSTEADY @ 35 ml/hr provides for energy/protein needs (1, 500 Kcal/68 g) during LOS, 77% Kcal; 90% AA. Including 91 Kcal from Propofol: 81% Kcal; 90% AA. Burn Absent Trauma Absent GI Symptoms None Food Allergy No Skin Integrity/Comment Blisters on the groin and on hand. Current % PO Other Minimum of two criteria No Fluid Accumulation N/A Reduced Hand Box Folder Strength N/A (non-severe) Protein-Calorie Malnutrition N\A #1 Nutrition Diagnosis Inadequate oral intake Diagnosis Progress(for reassessment Continues documentation) Is patient on ventilator? Yes Is Patient Ambulatory and/or Out of Bed No REE-([facility]-confined to bed) [phone] Kcal/Kg value to use for calculation 17 Approximate Energy Requirements Using 1958 kcal/Kg Calculation Used for Recommendations Kcal/kg Additional Notes Protein: 0.8-1.2 g/Kg AdjBW; 75-113 g/day. Fluids: 1 ml/Kcal, or as per MD. Nutrition Intervention Nutrition Support: Continue TF-Nepro w/CARBSTEADY @ 35 ml/hr. Flush: 220 ml water Q 4 hr, or as per MD. Kcal 1,500 Protein (gm) 68 Carbohydrates (gm) 134 Fat (gm) 80 Fluid (mL) 606 Fiber (gm) 11 % RDI: 77% Kcal; 90% AA. Goal #1 Provide at least 75% of energy /protein needs through Enteral Feeding during LOS. Follow-Up By: 05/06/22 Additional Comments Continue monitoring TF tolerance, ventilation status, vasopressors, and BM.
[2022-04-26] MEDS: QUEtiapine 100 MG TAB FEEDTUBE SCH (14:18)
--- NOTE | 2022-04-26 14:26 | Progress Note ---
Assessment and Plan Acute hypoxemic respiratory failure Altered mental status Aspiration pneumonia Shock (Cardiogenic +/- Septic) Severe Metabolic Acidosis Morbid Obesity Diabetes type II Hypotension Obesity hypoventilation syndrome - discontinue Dobutamine - Benadryl X 72 hours - continue hypotonic fluids and monitor serum Na - Lantus increased likely re: D5W - continue CVP's monitoring (down to 14) - continue strict I's & O's and target negative fluid balance - care plan explained at length to his in the room again today - prn vasopressors for target MAP > 65mmHg - continue daily SAT and SBT assessment as tolerated - continue to wean supplemental oxygen for target O2 sat's > 90% acutely - VAP bundle addressed - continue lung protective strategies - continue bronchodilators with pulmonary hygiene per RT - wean per pulmonary driven protocols otherwise - avoid nephrotoxins, renally dose all medications - continue accuchecks with glycemic control per SSI (While critically ill target blood glucose of 140-180 mg/dL; avoid hypoglycemia) - sedation prn for target RASS 0 to -1 - continue to avoid benzodiazepine's, reduce the possibility of delirium - AB's per ID rec's (s/p 5 days empiric CAP therapy with Levaquin) - prn analgesia per CPOT score - Maintenance of sleep-wake cycle, avoid delirium - continue enteral nutritional support at goal rate as tolerated - G.I. & VTE prophylaxis - PT/OT/ROM exercises - continue mobility protocols for pressure ulcer prophylaxis - Monitor hemodynamics closely - continue other care per attending / other consultants - discharge planning ongoing concurrently .... Re-evaluate in am & prn CONDITION: CRITICAL PROGNOSIS: GUARDED CODE STATUS: FULL CODE The high probability of a clinically significant, sudden or life-threatening deterioration of the [respiratory, cardiovascular, renal & neurologic] system(s) required my full and direct attention, intervention and personal management. The aggregate critical care time was [35] minutes without overlap. Time includes spent on; [x] Data Review and interpretation [x] Patient assessment and monitoring of vital signs [x] Documentation [x] Medication orders and management Subjective Date of service: 04/26/22 Principal diagnosis: AHRF; AMS; Pneumonia; Shock; DM II; Severe Metabolic Acidosis Interval history: Patient is seen today for: Acute hypoxemic respiratory failure; AMS; Aspiration pneumonia; Shock (Cardiogenic +/- Septic); DM II; Severe Metabolic Acidosis Seen and examined at bedside; 24hour events reviewed; nursing and respiratory care staff consulted; no adverse overnight events reported to me; resting in bed; remains on MVS; FiO2 down to 35%; tolerated 7 hours SBT today before tiring out; Benadryl started for erythematous rash over arms / trunk Objective Vital Signs - 12hr 04/26/22 04/26/22 04/26/22 02:30 03:00 03:14 Temperature Pulse Rate 98 H 108 H 102 H Pulse Rate [ From Monitor] Respiratory 16 20 Rate Respiratory Rate [no] Blood Pressure O2 Sat by Pulse 100 98 Oximetry 04/26/22 04/26/22 04/26/22 03:30 04:00 04:30 Temperature 100 F H Pulse Rate 99 H 100 H 94 H Pulse Rate [ 96 H From Monitor] Respiratory 17 19 17 Rate Respiratory Rate [no] Blood Pressure O2 Sat by Pulse 100 100 100 Oximetry 04/26/22 04/26/22 04/26/22 04:32 05:00 05:30 Temperature Pulse Rate 91 H 98 H 103 H Pulse Rate [ From Monitor] Respiratory 17 14 Rate Respiratory Rate [no] Blood Pressure 130/58 O2 Sat by Pulse 100 99 99 Oximetry 04/26/22 04/26/22 04/26/22 06:00 06:30 07:00 Temperature Pulse Rate 99 H 94 H 97 H Pulse Rate [ From Monitor] Respiratory 16 18 19 Rate Respiratory Rate [no] Blood Pressure O2 Sat by Pulse 100 99 100 Oximetry 04/26/22 04/26/22 04/26/22 07:28 07:30 07:50 Temperature 99.6 F Pulse Rate 93 H 103 H Pulse Rate [ From Monitor] Respiratory 18 21 Rate Respiratory Rate [no] Blood Pressure 135/69 O2 Sat by Pulse 99 98 Oximetry 04/26/22 04/26/22 04/26/22 08:00 08:30 09:00 Temperature 99.6 F Pulse Rate 105 H 104 H 105 H Pulse Rate [ 96 H From Monitor] Respiratory 19 23 21 Rate Respiratory Rate [no] Blood Pressure O2 Sat by Pulse 99 98 99 Oximetry 04/26/22 04/26/22 04/26/22 09:30 10:00 10:30 Temperature Pulse Rate 107 H 119 H 118 H Pulse Rate [ From Monitor] Respiratory 16 29 H 21 Rate Respiratory 17 Rate [no] Blood Pressure O2 Sat by Pulse 99 96 98 Oximetry 04/26/22 04/26/22 04/26/22 11:00 11:30 11:51 Temperature Pulse Rate 118 H 118 H 125 H Pulse Rate [ From Monitor] Respiratory 25 H 25 H 23 Rate Respiratory Rate [no] Blood Pressure 149/69 O2 Sat by Pulse 98 98 98 Oximetry 04/26/22 04/26/22 04/26/22 12:00 12:30 12:35 Temperature 98.7 F Pulse Rate 117 H 105 H Pulse Rate [ 96 H From Monitor] Respiratory 25 H 18 Rate Respiratory Rate [no] Blood Pressure O2 Sat by Pulse 98 97 Oximetry 04/26/22 04/26/22 04/26/22 13:00 13:30 14:00 Temperature Pulse Rate 123 H 120 H 123 H Pulse Rate [ From Monitor] Respiratory 21 27 H 34 H Rate Respiratory Rate [no] Blood Pressure O2 Sat by Pulse 98 98 97 Oximetry 04/26/22 14:03 Temperature Pulse Rate 117 H Pulse Rate [ From Monitor] Respiratory Rate Respiratory Rate [no] Blood Pressure 146/70 O2 Sat by Pulse 96 Oximetry Constitutional: no acute distress, other (elderly obese male with midly increased respiratory effort at rest) Eyes: non-icteric ENT: oropharynx moist, other (ETT 24 cm DIANNE) Neck: supple, no JVD Effort: mildly labored Ascultation: Bilateral: diminished breath sounds, rhonchi (scant) Percussion: Bilateral: not dull Cardiovascular: irregular rhythm, other (No R/M) Gastrointestinal: normoactive bowel sounds, soft, non-tender, non-distended (protuberant) Integumentary: normal Extremities: no cyanosis, pulses normal, no ischemia or petechiae, edema (1+) Neurologic: non-focal exam (grossly), pupils equal and round, unable to assess Psychiatric: other (Unable to assess due to mental status.) CBC and BMP: 04/26/22 05:20 04/26/22 05:20 ABG, PT/INR, D-dimer: ABG ABG pH 7.408 pH Units (7.350-7.450) 04/25/22 18:00 ABG pCO2 52.6 mm Hg 04/25/22 18:00 ABG pO2 81.4 mm Hg (80.0-90.0) 04/25/22 18:00 ABG O2 Saturation 97.0 % (95.0-99.0) 04/25/22 18:00 PT/INR, D-dimer PT 15.6 Sec. (12.2-14.9) H 04/18/22 Unknown INR 1.08 (0.87-1.13) 04/18/22 Unknown Abnormal lab findings: Abnormal Labs 04/17/22 04/17/22 04/17/22 19:18 19:55 19:56 WBC RBC Hgb Hct RDW Plt Count Lymph % (Auto) Smyth % (Auto) Eos % (Auto) Lymph # (Auto) Smyth # (Auto) Eos # (Auto) Seg Neutrophils % Seg Neuts % (Manual) Lymphocytes % (Manual) Eosinophils % (Manual) Seg Neutrophils # Seg Neutrophils # Man Lymphocytes # (Manual) Eosinophils # (Manual) PT Activated Coag Time Heparin Anti-Xa Level ABG pH 7.120 L* ABG pO2 45.3 L ABG HCO3 18.5 L ABG O2 Saturation 68.3 L ABG Base Excess -11.5 L ABG Hemoglobin Oxyhemoglobin 66.8 L Sodium Potassium Chloride 94.2 L Carbon Dioxide 17 L BUN Creatinine 1.6 H Glucose 315 H POC Glucose 277 H Lactic Acid Calcium Phosphorus Magnesium AST 529 H ALT 318 H Alkaline Phosphatase 137 H Total Creatine Kinase 398 H CK-MB (CK-2) 17.9 H CK-MB (CK-2) Rel Index 4.4 H Troponin T 0.205 H* Total Protein Albumin Triglycerides Urine Blood Urine WBC (Auto) Urine Creatinine 04/17/22 04/17/22 04/17/22 19:58 19:58 21:42 WBC 11.9 H RBC 5.17 H Hgb 15.5 H Hct 48.0 H RDW Plt Count Lymph % (Auto) Smyth % (Auto) Eos % (Auto) Lymph # (Auto) Smyth # (Auto) Eos # (Auto) Seg Neutrophils % 71.7 H Seg Neuts % (Manual) Lymphocytes % (Manual) Eosinophils % (Manual) Seg Neutrophils # 8.5 H Seg Neutrophils # Man Lymphocytes # (Manual) Eosinophils # (Manual) PT Activated Coag Time Heparin Anti-Xa Level ABG pH ABG pO2 ABG HCO3 ABG O2 Saturation ABG Base Excess ABG Hemoglobin Oxyhemoglobin Sodium Potassium Chloride 95.0 L Carbon Dioxide 19 L BUN Creatinine 1.5 H Glucose 306 H POC Glucose Lactic Acid Calcium Phosphorus Magnesium AST ALT Alkaline Phosphatase Total Creatine Kinase 412 H CK-MB (CK-2) 19.2 H CK-MB (CK-2) Rel Index 4.6 H Troponin T 0.285 H* D Total Protein Albumin Triglycerides Urine Blood Urine WBC (Auto) Urine Creatinine 04/17/22 04/18/22 04/18/22 21:42 00:40 01:07 WBC RBC Hgb Hct RDW Plt Count Lymph % (Auto) Smyth % (Auto) Eos % (Auto) Lymph # (Auto) Smyth # (Auto) Eos # (Auto) Seg Neutrophils % Seg Neuts % (Manual) Lymphocytes % (Manual) Eosinophils % (Manual) Seg Neutrophils # Seg Neutrophils # Man Lymphocytes # (Manual) Eosinophils # (Manual) PT Activated Coag Time Heparin Anti-Xa Level ABG pH ABG pO2 ABG HCO3 ABG O2 Saturation ABG Base Excess ABG Hemoglobin Oxyhemoglobin Sodium Potassium Chloride Carbon Dioxide BUN Creatinine Glucose POC Glucose 320 H Lactic Acid 7.90 H* 7.90 H* Calcium Phosphorus Magnesium AST ALT Alkaline Phosphatase Total Creatine Kinase CK-MB (CK-2) CK-MB (CK-2) Rel Index Troponin T Total Protein Albumin Triglycerides Urine Blood Urine WBC (Auto) Urine Creatinine 04/18/22 04/18/22 04/18/22 01:07 04:00 06:04 WBC RBC Hgb Hct RDW Plt Count Lymph % (Auto) Smyth % (Auto) Eos % (Auto) Lymph # (Auto) Smyth # (Auto) Eos # (Auto) Seg Neutrophils % Seg Neuts % (Manual) Lymphocytes % (Manual) Eosinophils % (Manual) Seg Neutrophils # Seg Neutrophils # Man Lymphocytes # (Manual) Eosinophils # (Manual) PT Activated Coag Time Heparin Anti-Xa Level < 0.10 L ABG pH ABG pO2 ABG HCO3 ABG O2 Saturation ABG Base Excess ABG Hemoglobin Oxyhemoglobin Sodium Potassium Chloride Carbon Dioxide BUN Creatinine Glucose POC Glucose 305 H Lactic Acid Calcium Phosphorus Magnesium AST ALT Alkaline Phosphatase Total Creatine Kinase 488 H CK-MB (CK-2) 25.3 H CK-MB (CK-2) Rel Index 5.1 H Troponin T 0.665 H* D Total Protein Albumin Triglycerides Urine Blood Urine WBC (Auto) Urine Creatinine 04/18/22 04/18/22 04/18/22 06:20 11:10 12:48 WBC RBC Hgb Hct RDW Plt Count Lymph % (Auto) Smyth % (Auto) Eos % (Auto) Lymph # (Auto) Smyth # (Auto) Eos # (Auto) Seg Neutrophils % Seg Neuts % (Manual) Lymphocytes % (Manual) Eosinophils % (Manual) Seg Neutrophils # Seg Neutrophils # Man Lymphocytes # (Manual) Eosinophils # (Manual) PT Activated Coag Time Heparin Anti-Xa Level < 0.10 L ABG pH 7.119 L* 7.304 L ABG pO2 56.1 L 103.5 H ABG HCO3 18.4 L 14.4 L ABG O2 Saturation 80.7 L ABG Base Excess -11.4 L -10.6 L ABG Hemoglobin 13.5 L Oxyhemoglobin 79.2 L Sodium Potassium Chloride Carbon Dioxide BUN Creatinine Glucose POC Glucose Lactic Acid Calcium Phosphorus Magnesium AST ALT Alkaline Phosphatase Total Creatine Kinase CK-MB (CK-2) CK-MB (CK-2) Rel Index Troponin T Total Protein Albumin Triglycerides Urine Blood Urine WBC (Auto) Urine Creatinine 04/18/22 04/18/22 04/18/22 13:13 16:00 16:00 WBC RBC Hgb Hct RDW Plt Count Lymph % (Auto) Smyth % (Auto) Eos % (Auto) Lymph # (Auto) Smyth # (Auto) Eos # (Auto) Seg Neutrophils % Seg Neuts % (Manual) Lymphocytes % (Manual) Eosinophils % (Manual) Seg Neutrophils # Seg Neutrophils # Man Lymphocytes # (Manual) Eosinophils # (Manual) PT Activated Coag Time Heparin Anti-Xa Level ABG pH ABG pO2 ABG HCO3 ABG O2 Saturation ABG Base Excess ABG Hemoglobin Oxyhemoglobin Sodium Potassium Chloride Carbon Dioxide BUN Creatinine Glucose POC Glucose 334 H Lactic Acid 7.00 H* Calcium Phosphorus 5.70 H Magnesium 1.30 L AST ALT Alkaline Phosphatase Total Creatine Kinase 969 H CK-MB (CK-2) 55.9 H CK-MB (CK-2) Rel Index 5.7 H Troponin T 1.580 H* D Total Protein Albumin Triglycerides Urine Blood Urine WBC (Auto) Urine Creatinine 04/18/22 04/18/22 04/18/22 16:00 18:00 18:01 WBC RBC Hgb Hct RDW Plt Count Lymph % (Auto) Smyth % (Auto) Eos % (Auto) Lymph # (Auto) Smyth # (Auto) Eos # (Auto) Seg Neutrophils % Seg Neuts % (Manual) Lymphocytes % (Manual) Eosinophils % (Manual) Seg Neutrophils # Seg Neutrophils # Man Lymphocytes # (Manual) Eosinophils # (Manual) PT Activated Coag Time Heparin Anti-Xa Level < 0.10 L ABG pH ABG pO2 ABG HCO3 ABG O2 Saturation ABG Base Excess ABG Hemoglobin Oxyhemoglobin Sodium 136 L Potassium 6.3 H* D Chloride 97.6 L Carbon Dioxide 18 L BUN 34 H Creatinine 3.5 H Glucose 409 H POC Glucose 397 H Lactic Acid Calcium 6.8 L Phosphorus Magnesium AST ALT Alkaline Phosphatase Total Creatine Kinase CK-MB (CK-2) CK-MB (CK-2) Rel Index Troponin T Total Protein Albumin Triglycerides Urine Blood Urine WBC (Auto) Urine Creatinine 04/18/22 04/18/22 04/18/22 19:13 20:58 21:22 WBC RBC Hgb Hct RDW Plt Count Lymph % (Auto) Smyth % (Auto) Eos % (Auto) Lymph # (Auto) Smyth # (Auto) Eos # (Auto) Seg Neutrophils % Seg Neuts % (Manual) Lymphocytes % (Manual) Eosinophils % (Manual) Seg Neutrophils # Seg Neutrophils # Man Lymphocytes # (Manual) Eosinophils # (Manual) PT Activated Coag Time Heparin Anti-Xa Level ABG pH 7.502 H ABG pO2 144.5 H ABG HCO3 ABG O2 Saturation ABG Base Excess ABG Hemoglobin 12.5 L Oxyhemoglobin Sodium Potassium Chloride Carbon Dioxide BUN Creatinine Glucose POC Glucose 321 H 307 H Lactic Acid Calcium Phosphorus Magnesium AST ALT Alkaline Phosphatase Total Creatine Kinase CK-MB (CK-2) CK-MB (CK-2) Rel Index Troponin T Total Protein Albumin Triglycerides Urine Blood Urine WBC (Auto) Urine Creatinine 04/18/22 04/18/22 04/18/22 21:30 21:30 Unknown WBC RBC Hgb Hct RDW Plt Count Lymph % (Auto) Smyth % (Auto) Eos % (Auto) Lymph # (Auto) Smyth # (Auto) Eos # (Auto) Seg Neutrophils % Seg Neuts % (Manual) 81.0 H Lymphocytes % (Manual) 12.0 L Eosinophils % (Manual) Seg Neutrophils # 9.8 H Seg Neutrophils # Man 8.7 H Lymphocytes # (Manual) Eosinophils # (Manual) PT Activated Coag Time Heparin Anti-Xa Level ABG pH ABG pO2 ABG HCO3 ABG O2 Saturation ABG Base Excess ABG Hemoglobin Oxyhemoglobin Sodium Potassium Chloride 96.6 L Carbon Dioxide BUN 37 H Creatinine 3.6 H Glucose 312 H POC Glucose Lactic Acid 5.50 H* Calcium 7.3 L Phosphorus Magnesium AST ALT Alkaline Phosphatase Total Creatine Kinase CK-MB (CK-2) CK-MB (CK-2) Rel Index Troponin T Total Protein Albumin Triglycerides Urine Blood Urine WBC (Auto) Urine Creatinine 04/18/22 04/18/22 04/19/22 Unknown Unknown 00:35 WBC RBC Hgb Hct RDW Plt Count Lymph % (Auto) Smyth % (Auto) Eos % (Auto) Lymph # (Auto) Smyth # (Auto) Eos # (Auto) Seg Neutrophils % Seg Neuts % (Manual) Lymphocytes % (Manual) Eosinophils % (Manual) Seg Neutrophils # Seg Neutrophils # Man Lymphocytes # (Manual) Eosinophils # (Manual) PT 15.6 H Activated Coag Time Heparin Anti-Xa Level ABG pH ABG pO2 ABG HCO3 ABG O2 Saturation ABG Base Excess ABG Hemoglobin Oxyhemoglobin Sodium Potassium Chloride Carbon Dioxide 18 L BUN 26 H Creatinine 2.5 H D Glucose 330 H POC Glucose Lactic Acid Calcium 7.9 L Phosphorus Magnesium AST 463 H ALT 249 H Alkaline Phosphatase Total Creatine Kinase CK-MB (CK-2) CK-MB (CK-2) Rel Index Troponin T 2.670 H* D Total Protein Albumin 3.3 L Triglycerides Urine Blood Urine WBC (Auto) Urine Creatinine 04/19/22 04/19/22 04/19/22 00:39 02:08 02:08 WBC RBC Hgb Hct RDW Plt Count Lymph % (Auto) Smyth % (Auto) Eos % (Auto) Lymph # (Auto) Smyth # (Auto) Eos # (Auto) Seg Neutrophils % Seg Neuts % (Manual) Lymphocytes % (Manual) Eosinophils % (Manual) Seg Neutrophils # Seg Neutrophils # Man Lymphocytes # (Manual) Eosinophils # (Manual) PT Activated Coag Time Heparin Anti-Xa Level ABG pH ABG pO2 ABG HCO3 ABG O2 Saturation ABG Base Excess ABG Hemoglobin Oxyhemoglobin Sodium Potassium Chloride Carbon Dioxide BUN Creatinine Glucose POC Glucose 263 H Lactic Acid Calcium Phosphorus Magnesium AST ALT Alkaline Phosphatase Total Creatine Kinase CK-MB (CK-2) CK-MB (CK-2) Rel Index Troponin T Total Protein Albumin Triglycerides Urine Blood Large A Urine WBC (Auto) 88.0 H Urine Creatinine 90.9 H 04/19/22 04/19/22 04/19/22 02:08 03:45 03:45 WBC 14.2 H RBC Hgb Hct RDW Plt Count Lymph % (Auto) Smyth % (Auto) Eos % (Auto) Lymph # (Auto) Smyth # (Auto) Eos # (Auto) Seg Neutrophils % Seg Neuts % (Manual) Lymphocytes % (Manual) Eosinophils % (Manual) Seg Neutrophils # Seg Neutrophils # Man Lymphocytes # (Manual) Eosinophils # (Manual) PT Activated Coag Time Heparin Anti-Xa Level 0.18 L ABG pH ABG pO2 ABG HCO3 ABG O2 Saturation ABG Base Excess ABG Hemoglobin Oxyhemoglobin Sodium Potassium Chloride 94.2 L Carbon Dioxide BUN 39 H Creatinine 3.8 H Glucose 243 H POC Glucose Lactic Acid Calcium 7.1 L Phosphorus Magnesium 1.50 L AST 380 H ALT 289 H Alkaline Phosphatase Total Creatine Kinase CK-MB (CK-2) CK-MB (CK-2) Rel Index Troponin T Total Protein 5.4 L Albumin 2.5 L Triglycerides Urine Blood Urine WBC (Auto) Urine Creatinine 04/19/22 04/19/22 04/19/22 03:45 06:01 07:11 WBC RBC Hgb Hct RDW Plt Count Lymph % (Auto) Smyth % (Auto) Eos % (Auto) Lymph # (Auto) Smyth # (Auto) Eos # (Auto) Seg Neutrophils % Seg Neuts % (Manual) Lymphocytes % (Manual) Eosinophils % (Manual) Seg Neutrophils # Seg Neutrophils # Man Lymphocytes # (Manual) Eosinophils # (Manual) PT Activated Coag Time Heparin Anti-Xa Level ABG pH ABG pO2 ABG HCO3 ABG O2 Saturation ABG Base Excess ABG Hemoglobin Oxyhemoglobin Sodium Potassium Chloride Carbon Dioxide BUN Creatinine Glucose POC Glucose 165 H Lactic Acid 4.00 H* Calcium Phosphorus Magnesium AST ALT Alkaline Phosphatase Total Creatine Kinase 3270 H CK-MB (CK-2) 28.5 H CK-MB (CK-2) Rel Index Troponin T 2.980 H* Total Protein Albumin Triglycerides Urine Blood Urine WBC (Auto) Urine Creatinine 04/19/22 04/19/22 04/19/22 07:50 08:50 12:49 WBC RBC Hgb Hct RDW Plt Count Lymph % (Auto) Smyth % (Auto) Eos % (Auto) Lymph # (Auto) Smyth # (Auto) Eos # (Auto) Seg Neutrophils % Seg Neuts % (Manual) Lymphocytes % (Manual) Eosinophils % (Manual) Seg Neutrophils # Seg Neutrophils # Man Lymphocytes # (Manual) Eosinophils # (Manual) PT Activated Coag Time Heparin Anti-Xa Level ABG pH 7.471 H ABG pO2 58.9 L ABG HCO3 27.1 H ABG O2 Saturation 91.7 L ABG Base Excess 3.4 H ABG Hemoglobin 12.2 L Oxyhemoglobin 90.0 L Sodium Potassium Chloride Carbon Dioxide BUN Creatinine Glucose POC Glucose 331 H Lactic Acid 3.40 H* Calcium Phosphorus Magnesium AST ALT Alkaline Phosphatase Total Creatine Kinase CK-MB (CK-2) CK-MB (CK-2) Rel Index Troponin T Total Protein Albumin Triglycerides Urine Blood Urine WBC (Auto) Urine Creatinine 04/19/22 04/19/22 04/19/22 16:15 19:25 21:17 WBC RBC Hgb Hct RDW Plt Count Lymph % (Auto) Smyth % (Auto) Eos % (Auto) Lymph # (Auto) Smyth # (Auto) Eos # (Auto) Seg Neutrophils % Seg Neuts % (Manual) Lymphocytes % (Manual) Eosinophils % (Manual) Seg Neutrophils # Seg Neutrophils # Man Lymphocytes # (Manual) Eosinophils # (Manual) PT Activated Coag Time Heparin Anti-Xa Level ABG pH ABG pO2 ABG HCO3 ABG O2 Saturation ABG Base Excess ABG Hemoglobin Oxyhemoglobin Sodium Potassium Chloride Carbon Dioxide BUN Creatinine Glucose POC Glucose 304 H 251 H Lactic Acid 4.00 H* Calcium Phosphorus Magnesium AST ALT Alkaline Phosphatase Total Creatine Kinase CK-MB (CK-2) CK-MB (CK-2) Rel Index Troponin T Total Protein Albumin Triglycerides Urine Blood Urine WBC (Auto) Urine Creatinine 04/19/22 04/20/22 04/20/22 23:00 04:12 04:12 WBC 12.2 H RBC Hgb 11.6 L Hct 35.3 L RDW Plt Count Lymph % (Auto) Smyth % (Auto) Eos % (Auto) Lymph # (Auto) Smyth # (Auto) Eos # (Auto) Seg Neutrophils % Seg Neuts % (Manual) Lymphocytes % (Manual) Eosinophils % (Manual) Seg Neutrophils # Seg Neutrophils # Man Lymphocytes # (Manual) Eosinophils # (Manual) PT Activated Coag Time Heparin Anti-Xa Level 0.15 L ABG pH ABG pO2 ABG HCO3 ABG O2 Saturation ABG Base Excess ABG Hemoglobin Oxyhemoglobin Sodium Potassium Chloride Carbon Dioxide BUN Creatinine Glucose POC Glucose 236 H Lactic Acid Calcium Phosphorus Magnesium AST ALT Alkaline Phosphatase Total Creatine Kinase CK-MB (CK-2) CK-MB (CK-2) Rel Index Troponin T Total Protein Albumin Triglycerides Urine Blood Urine WBC (Auto) Urine Creatinine 04/20/22 04/20/22 04/20/22 04:12 04:12 09:10 WBC RBC Hgb Hct RDW Plt Count Lymph % (Auto) Smyth % (Auto) Eos % (Auto) Lymph # (Auto) Smyth # (Auto) Eos # (Auto) Seg Neutrophils % Seg Neuts % (Manual) Lymphocytes % (Manual) Eosinophils % (Manual) Seg Neutrophils # Seg Neutrophils # Man Lymphocytes # (Manual) Eosinophils # (Manual) PT Activated Coag Time Heparin Anti-Xa Level ABG pH ABG pO2 ABG HCO3 ABG O2 Saturation ABG Base Excess ABG Hemoglobin Oxyhemoglobin Sodium 133 L Potassium 3.5 L Chloride 91.9 L Carbon Dioxide BUN 44 H Creatinine 4.6 H Glucose 263 H POC Glucose Lactic Acid 2.80 H* Calcium 7.2 L Phosphorus Magnesium AST 553 H ALT 471 H Alkaline Phosphatase Total Creatine Kinase 3019 H CK-MB (CK-2) CK-MB (CK-2) Rel Index Troponin T Total Protein 5.7 L Albumin 2.4 L Triglycerides 254 H Urine Blood Urine WBC (Auto) Urine Creatinine 04/20/22 04/20/22 04/20/22 09:31 11:18 18:08 WBC RBC Hgb Hct RDW Plt Count Lymph % (Auto) Smyth % (Auto) Eos % (Auto) Lymph # (Auto) Smyth # (Auto) Eos # (Auto) Seg Neutrophils % Seg Neuts % (Manual) Lymphocytes % (Manual) Eosinophils % (Manual) Seg Neutrophils # Seg Neutrophils # Man Lymphocytes # (Manual) Eosinophils # (Manual) PT Activated Coag Time Heparin Anti-Xa Level ABG pH 7.512 H ABG pO2 ABG HCO3 26.2 H ABG O2 Saturation ABG Base Excess 3.2 H ABG Hemoglobin 9.0 L Oxyhemoglobin Sodium Potassium Chloride Carbon Dioxide BUN Creatinine Glucose POC Glucose 285 H 293 H Lactic Acid Calcium Phosphorus Magnesium AST ALT Alkaline Phosphatase Total Creatine Kinase CK-MB (CK-2) CK-MB (CK-2) Rel Index Troponin T Total Protein Albumin Triglycerides Urine Blood Urine WBC (Auto) Urine Creatinine 04/20/22 04/21/22 04/21/22 21:40 00:10 04:00 WBC RBC Hgb Hct RDW Plt Count Lymph % (Auto) Smyth % (Auto) Eos % (Auto) Lymph # (Auto) Smyth # (Auto) Eos # (Auto) Seg Neutrophils % Seg Neuts % (Manual) Lymphocytes % (Manual) Eosinophils % (Manual) Seg Neutrophils # Seg Neutrophils # Man Lymphocytes # (Manual) Eosinophils # (Manual) PT Activated Coag Time Heparin Anti-Xa Level 0.16 L ABG pH ABG pO2 59.4 L ABG HCO3 29.7 H ABG O2 Saturation 90.1 L ABG Base Excess 3.1 H ABG Hemoglobin 11.6 L Oxyhemoglobin 88.2 L Sodium Potassium Chloride Carbon Dioxide BUN Creatinine Glucose POC Glucose 290 H Lactic Acid Calcium Phosphorus Magnesium AST ALT Alkaline Phosphatase Total Creatine Kinase CK-MB (CK-2) CK-MB (CK-2) Rel Index Troponin T Total Protein Albumin Triglycerides Urine Blood Urine WBC (Auto) Urine Creatinine 04/21/22 04/21/22 04/21/22 04:30 04:30 05:57 WBC 17.9 H RBC Hgb 11.7 L Hct 35.1 L RDW Plt Count Lymph % (Auto) Smyth % (Auto) Eos % (Auto) Lymph # (Auto) Smyth # (Auto) Eos # (Auto) Seg Neutrophils % Seg Neuts % (Manual) Lymphocytes % (Manual) Eosinophils % (Manual) Seg Neutrophils # Seg Neutrophils # Man Lymphocytes # (Manual) Eosinophils # (Manual) PT Activated Coag Time Heparin Anti-Xa Level ABG pH ABG pO2 ABG HCO3 ABG O2 Saturation ABG Base Excess ABG Hemoglobin Oxyhemoglobin Sodium Potassium Chloride 95.7 L Carbon Dioxide BUN 45 H Creatinine 4.2 H Glucose 309 H POC Glucose 265 H Lactic Acid Calcium 7.4 L Phosphorus 5.60 H D Magnesium 2.50 H AST 217 H ALT 376 H Alkaline Phosphatase Total Creatine Kinase CK-MB (CK-2) CK-MB (CK-2) Rel Index Troponin T Total Protein Albumin 2.8 L Triglycerides Urine Blood Urine WBC (Auto) Urine Creatinine 04/21/22 04/21/22 04/21/22 12:14 13:45 18:10 WBC RBC Hgb Hct RDW Plt Count Lymph % (Auto) Smyth % (Auto) Eos % (Auto) Lymph # (Auto) Smyth # (Auto) Eos # (Auto) Seg Neutrophils % Seg Neuts % (Manual) Lymphocytes % (Manual) Eosinophils % (Manual) Seg Neutrophils # Seg Neutrophils # Man Lymphocytes # (Manual) Eosinophils # (Manual) PT Activated Coag Time 179 H Heparin Anti-Xa Level ABG pH ABG pO2 ABG HCO3 ABG O2 Saturation ABG Base Excess ABG Hemoglobin Oxyhemoglobin Sodium Potassium Chloride Carbon Dioxide BUN Creatinine Glucose POC Glucose 248 H 240 H Lactic Acid Calcium Phosphorus Magnesium AST ALT Alkaline Phosphatase Total Creatine Kinase CK-MB (CK-2) CK-MB (CK-2) Rel Index Troponin T Total Protein Albumin Triglycerides Urine Blood Urine WBC (Auto) Urine Creatinine 04/22/22 04/22/22 04/22/22 00:09 04:00 04:33 WBC 12.4 H RBC 3.34 L Hgb 9.8 L Hct 29.7 L RDW Plt Count 138 L Lymph % (Auto) Smyth % (Auto) Eos % (Auto) Lymph # (Auto) Smyth # (Auto) Eos # (Auto) Seg Neutrophils % Seg Neuts % (Manual) Lymphocytes % (Manual) Eosinophils % (Manual) Seg Neutrophils # Seg Neutrophils # Man Lymphocytes # (Manual) Eosinophils # (Manual) PT Activated Coag Time Heparin Anti-Xa Level ABG pH ABG pO2 ABG HCO3 ABG O2 Saturation ABG Base Excess ABG Hemoglobin Oxyhemoglobin Sodium Potassium Chloride Carbon Dioxide BUN 40 H Creatinine 2.9 H Glucose 269 H POC Glucose 248 H Lactic Acid Calcium 7.3 L Phosphorus Magnesium AST ALT Alkaline Phosphatase Total Creatine Kinase 973 H CK-MB (CK-2) CK-MB (CK-2) Rel Index Troponin T Total Protein Albumin Triglycerides Urine Blood Urine WBC (Auto) Urine Creatinine 04/22/22 04/22/22 04/22/22 10:13 11:51 18:02 WBC RBC Hgb Hct RDW Plt Count Lymph % (Auto) [place]th % (Auto) Eos % (Auto) Lymph # (Auto) [place]th # (Auto) Eos # (Auto) Seg Neutrophils % Seg Neuts % (Manual) Lymphocytes % (Manual) Eosinophils % (Manual) Seg Neutrophils # Seg Neutrophils # Man Lymphocytes # (Manual) Eosinophils # (Manual) PT Activated Coag Time Heparin Anti-Xa Level ABG pH ABG pO2 56.1 L ABG HCO3 28.4 H ABG O2 Saturation 89.3 L ABG Base Excess ABG Hemoglobin 9.8 L Oxyhemoglobin 87.7 L Sodium Potassium Chloride Carbon Dioxide BUN Creatinine Glucose POC Glucose 302 H 266 H Lactic Acid Calcium Phosphorus Magnesium AST ALT Alkaline Phosphatase Total Creatine Kinase CK-MB (CK-2) CK-MB (CK-2) Rel Index Troponin T Total Protein Albumin Triglycerides Urine Blood Urine WBC (Auto) Urine Creatinine 04/22/22 04/22/22 04/23/22 21:18 23:30 04:19 WBC RBC 3.34 L Hgb 9.9 L Hct 29.9 L RDW Plt Count Lymph % (Auto) S[place]th % (Auto) Eos % (Auto) Lymph # (Auto) [place]th # (Auto) Eos # (Auto) Seg Neutrophils % Seg Neuts % (Manual) 74.0 H Lymphocytes % (Manual) 10.0 L Eosinophils % (Manual) 7.0 H Seg Neutrophils # Seg Neutrophils # Man 8.0 H Lymphocytes # (Manual) 1.1 L Eosinophils # (Manual) 0.8 H PT Activated Coag Time Heparin Anti-Xa Level ABG pH ABG pO2 ABG HCO3 ABG O2 Saturation ABG Base Excess ABG Hemoglobin Oxyhemoglobin Sodium Potassium Chloride Carbon Dioxide BUN Creatinine Glucose POC Glucose 299 H 299 H Lactic Acid Calcium Phosphorus Magnesium AST ALT Alkaline Phosphatase Total Creatine Kinase CK-MB (CK-2) CK-MB (CK-2) Rel Index Troponin T Total Protein Albumin Triglycerides Urine Blood Urine WBC (Auto) Urine Creatinine 04/23/22 04/23/22 04/23/22 04:19 05:24 11:20 WBC RBC Hgb Hct RDW Plt Count Lymph % (Auto) [place]th % (Auto) Eos % (Auto) Lymph # (Auto) [place]th # (Auto) Eos # (Auto) Seg Neutrophils % Seg Neuts % (Manual) Lymphocytes % (Manual) Eosinophils % (Manual) Seg Neutrophils # Seg Neutrophils # Man Lymphocytes # (Manual) Eosinophils # (Manual) PT Activated Coag Time Heparin Anti-Xa Level ABG pH ABG pO2 ABG HCO3 ABG O2 Saturation ABG Base Excess ABG Hemoglobin Oxyhemoglobin Sodium Potassium 3.5 L Chloride Carbon Dioxide BUN 30 H Creatinine 2.3 H Glucose 289 H POC Glucose 271 H 302 H Lactic Acid Calcium 7.8 L Phosphorus Magnesium AST 46 H ALT 158 H Alkaline Phosphatase 138 H Total Creatine Kinase CK-MB (CK-2) CK-MB (CK-2) Rel Index Troponin T Total Protein 6.2 L Albumin 2.6 L Triglycerides 230 H Urine Blood Urine WBC (Auto) Urine Creatinine 04/23/22 04/23/22 04/23/22 18:07 18:20 21:14 WBC RBC Hgb Hct RDW Plt Count Lymph % (Auto) [place]th % (Auto) Eos % (Auto) Lymph # (Auto) [place]th # (Auto) Eos # (Auto) Seg Neutrophils % Seg Neuts % (Manual) Lymphocytes % (Manual) Eosinophils % (Manual) Seg Neutrophils # Seg Neutrophils # Man Lymphocytes # (Manual) Eosinophils # (Manual) PT Activated Coag Time Heparin Anti-Xa Level ABG pH ABG pO2 ABG HCO3 31.6 H ABG O2 Saturation ABG Base Excess 4.8 H ABG Hemoglobin 18.3 H Oxyhemoglobin 94.8 L Sodium Potassium Chloride Carbon Dioxide BUN Creatinine Glucose POC Glucose 228 H 175 H Lactic Acid Calcium Phosphorus Magnesium AST ALT Alkaline Phosphatase Total Creatine Kinase CK-MB (CK-2) CK-MB (CK-2) Rel Index Troponin T Total Protein Albumin Triglycerides Urine Blood Urine WBC (Auto) Urine Creatinine 04/23/22 04/24/22 04/24/22 23:24 04:35 04:47 WBC RBC Hgb Hct RDW Plt Count Lymph % (Auto) [place]th % (Auto) Eos % (Auto) Lymph # (Auto) [place]th # (Auto) Eos # (Auto) Seg Neutrophils % Seg Neuts % (Manual) Lymphocytes % (Manual) Eosinophils % (Manual) Seg Neutrophils # Seg Neutrophils # Man Lymphocytes # (Manual) Eosinophils # (Manual) PT Activated Coag Time Heparin Anti-Xa Level ABG pH ABG pO2 ABG HCO3 31.5 H ABG O2 Saturation ABG Base Excess 6.1 H ABG Hemoglobin 10.3 L Oxyhemoglobin Sodium Potassium Chloride Carbon Dioxide BUN Creatinine Glucose POC Glucose 168 H 177 H Lactic Acid Calcium Phosphorus Magnesium AST ALT Alkaline Phosphatase Total Creatine Kinase CK-MB (CK-2) CK-MB (CK-2) Rel Index Troponin T Total Protein Albumin Triglycerides Urine Blood Urine WBC (Auto) Urine Creatinine 04/24/22 04/24/22 04/24/22 06:00 06:00 12:45 WBC 14.0 H RBC 3.57 L Hgb 10.1 L Hct 31.9 L RDW Plt Count Lymph % (Auto) 4.7 L [place]th % (Auto) 8.8 H Eos % (Auto) 6.0 H Lymph # (Auto) 0.7 L [place]th # (Auto) 1.2 H Eos # (Auto) 0.8 H Seg Neutrophils % 80.5 H Seg Neuts % (Manual) Lymphocytes % (Manual) Eosinophils % (Manual) Seg Neutrophils # 11.3 H Seg Neutrophils # Man Lymphocytes # (Manual) Eosinophils # (Manual) PT Activated Coag Time Heparin Anti-Xa Level ABG pH ABG pO2 ABG HCO3 ABG O2 Saturation ABG Base Excess ABG Hemoglobin Oxyhemoglobin Sodium Potassium 3.4 L Chloride Carbon Dioxide BUN 25 H Creatinine 1.8 H Glucose 218 H POC Glucose 227 H Lactic Acid Calcium 8.2 L Phosphorus Magnesium AST ALT 99 H Alkaline Phosphatase 141 H Total Creatine Kinase CK-MB (CK-2) CK-MB (CK-2) Rel Index Troponin T Total Protein 6.2 L Albumin 2.2 L Triglycerides Urine Blood Urine WBC (Auto) Urine Creatinine 04/24/22 04/24/22 04/24/22 17:57 21:19 23:24 WBC RBC Hgb Hct RDW Plt Count Lymph % (Auto) [place]th % (Auto) Eos % (Auto) Lymph # (Auto) [place]th # (Auto) Eos # (Auto) Seg Neutrophils % Seg Neuts % (Manual) Lymphocytes % (Manual) Eosinophils % (Manual) Seg Neutrophils # Seg Neutrophils # Man Lymphocytes # (Manual) Eosinophils # (Manual) PT Activated Coag Time Heparin Anti-Xa Level ABG pH ABG pO2 ABG HCO3 ABG O2 Saturation ABG Base Excess ABG Hemoglobin Oxyhemoglobin Sodium Potassium Chloride Carbon Dioxide BUN Creatinine Glucose POC Glucose 207 H 186 H 203 H Lactic Acid Calcium Phosphorus Magnesium AST ALT Alkaline Phosphatase Total Creatine Kinase CK-MB (CK-2) CK-MB (CK-2) Rel Index Troponin T Total Protein Albumin Triglycerides Urine Blood Urine WBC (Auto) Urine Creatinine 04/25/22 04/25/22 04/25/22 03:30 03:30 04:38 WBC 19.7 H RBC 3.39 L Hgb 9.8 L Hct 30.2 L RDW 15.6 H Plt Count Lymph % (Auto) 4.7 L [place]th % (Auto) Eos % (Auto) 5.0 H Lymph # (Auto) 0.9 L [place]th # (Auto) 1.2 H Eos # (Auto) 1.0 H Seg Neutrophils % 84.0 H Seg Neuts % (Manual) Lymphocytes % (Manual) Eosinophils % (Manual) Seg Neutrophils # 16.5 H Seg Neutrophils # Man Lymphocytes # (Manual) Eosinophils # (Manual) PT Activated Coag Time Heparin Anti-Xa Level ABG pH ABG pO2 ABG HCO3 ABG O2 Saturation ABG Base Excess ABG Hemoglobin Oxyhemoglobin Sodium 151 H Potassium 3.5 L Chloride 108.6 H Carbon Dioxide 31 H BUN 27 H Creatinine 1.9 H Glucose 144 H POC Glucose 135 H Lactic Acid Calcium 8.3 L Phosphorus Magnesium AST ALT Alkaline Phosphatase Total Creatine Kinase CK-MB (CK-2) CK-MB (CK-2) Rel Index Troponin T Total Protein Albumin Triglycerides Urine Blood Urine WBC (Auto) Urine Creatinine 04/25/22 04/25/22 04/25/22 05:09 12:12 17:58 WBC RBC Hgb Hct RDW Plt Count Lymph % (Auto) [place]th % (Auto) Eos % (Auto) Lymph # (Auto) [place]th # (Auto) Eos # (Auto) Seg Neutrophils % Seg Neuts % (Manual) Lymphocytes % (Manual) Eosinophils % (Manual) Seg Neutrophils # Seg Neutrophils # Man Lymphocytes # (Manual) Eosinophils # (Manual) PT Activated Coag Time Heparin Anti-Xa Level ABG pH ABG pO2 ABG HCO3 32.2 H ABG O2 Saturation ABG Base Excess 6.7 H ABG Hemoglobin 9.9 L Oxyhemoglobin 94.9 L Sodium Potassium Chloride Carbon Dioxide BUN Creatinine Glucose POC Glucose 218 H 229 H Lactic Acid Calcium Phosphorus Magnesium AST ALT Alkaline Phosphatase Total Creatine Kinase CK-MB (CK-2) CK-MB (CK-2) Rel Index Troponin T Total Protein Albumin Triglycerides Urine Blood Urine WBC (Auto) Urine Creatinine 04/25/22 04/25/22 04/26/22 18:00 23:48 05:20 WBC RBC Hgb 9.4 L Hct 30.1 L RDW Plt Count Lymph % (Auto) [place]th % (Auto) Eos % (Auto) Lymph # (Auto) [place]th # (Auto) Eos # (Auto) Seg Neutrophils % Seg Neuts % (Manual) Lymphocytes % (Manual) Eosinophils % (Manual) Seg Neutrophils # Seg Neutrophils # Man Lymphocytes # (Manual) Eosinophils # (Manual) PT Activated Coag Time Heparin Anti-Xa Level ABG pH ABG pO2 ABG HCO3 32.4 H ABG O2 Saturation ABG Base Excess 6.8 H ABG Hemoglobin 9.5 L Oxyhemoglobin Sodium Potassium Chloride Carbon Dioxide BUN Creatinine Glucose POC Glucose 214 H Lactic Acid Calcium Phosphorus Magnesium AST ALT Alkaline Phosphatase Total Creatine Kinase CK-MB (CK-2) CK-MB (CK-2) Rel Index Troponin T Total Protein Albumin Triglycerides Urine Blood Urine WBC (Auto) Urine Creatinine 04/26/22 04/26/22 04/26/22 05:20 05:51 11:39 WBC RBC Hgb Hct RDW Plt Count Lymph % (Auto) [place]th % (Auto) Eos % (Auto) Lymph # (Auto) [place]th # (Auto) Eos # (Auto) Seg Neutrophils % Seg Neuts % (Manual) Lymphocytes % (Manual) Eosinophils % (Manual) Seg Neutrophils # Seg Neutrophils # Man Lymphocytes # (Manual) Eosinophils # (Manual) PT Activated Coag Time Heparin Anti-Xa Level ABG pH ABG pO2 ABG HCO3 ABG O2 Saturation ABG Base Excess ABG Hemoglobin Oxyhemoglobin Sodium 147 H Potassium Chloride Carbon Dioxide 33 H BUN 27 H Creatinine 1.6 H Glucose 221 H POC Glucose 227 H 263 H Lactic Acid Calcium Phosphorus Magnesium AST ALT Alkaline Phosphatase Total Creatine Kinase CK-MB (CK-2) CK-MB (CK-2) Rel Index Troponin T Total Protein Albumin Triglycerides Urine Blood Urine WBC (Auto) Urine Creatinine Allied health notes reviewed: nursing
[2022-04-26] MEDS: INSULIN GLARGINE 100 UNITS/ML SUB-Q SCH (21:05)
[2022-04-26] MEDS: ACETAMINOPHEN 325 MG TAB PO PRN (23:36)
[2022-04-27] MEDS: FREE WATER PO SCH ×6 (02:40→21:23)
[2022-04-27 04:19] LABS: Basophils # (Auto) 0.1 K/mm3 (0.0-0.1); Basophils % (Auto) 0.3 % (0.0-1.8); Eosinophils # (Auto) 1.1 K/mm3 (0.0-0.4); Eosinophils % (Auto) 5.5 % (0.0-4.3); Hematocrit 29.3 % (35.5-45.6); Hemoglobin 9.5 gm/dl (11.8-15.2); Lymphocytes # (Auto) 1.2 K/mm3 (1.2-5.4); Lymphocytes % (Auto) 5.9 % (13.4-35.0); Mean Corpuscular HGB Conc 32 % (32-34); Mean Corpuscular Volume 90 fl (84-94); Monocytes # (Auto) 1.6 K/mm3 (0.0-0.8); Platelet Count 371 K/mm3 (140-440); Red Blood Count 3.28 M/mm3 (3.65-5.03); Red Cell Distribution Width 15.1 % (13.2-15.2)
[2022-04-27] MEDS: diphenhydrAMINE 50 MG/ML VIAL IV SCH ×4 (04:32→21:22)
[2022-04-27 04:39] LABS: Alanine Aminotransferase 53 units/L (7-56); Albumin 2.1 g/dL (3.9-5); BUN/Creatinine Ratio 16; Blood Urea Nitrogen 23 mg/dL (9-20); Calcium 8.3 mg/dL (8.4-10.2); Hemolysis Index 3
[2022-04-27] MEDS: INSULIN LISPRO 100 UNIT/ML SUB-Q SCH ×6 (05:27→17:49)
[2022-04-27] MEDS: ASPIRIN 81 MG TAB CHEW FEEDTUBE SCH (10:08)
[2022-04-27] MEDS: SENNOSIDES/DOCUSATE SODIUM 8.6/50 MG TAB FEEDTUBE SCH ×2 (10:08→23:02)
[2022-04-27] MEDS: HEPARIN 5,000 UNIT/1 ML VIAL SUB-Q SCH ×2 (10:09→21:20)
[2022-04-27] MEDS: FAMOTIDINE 20 MG TAB FEEDTUBE SCH ×2 (10:09→21:21)
[2022-04-27] MEDS: AMIODARONE 200 MG TAB PO SCH ×2 (10:09→21:21)
--- NOTE | 2022-04-27 10:47 | Progress Note ---
Assessment and Plan This is a 62 year old male with OHS, HTN, DM, metabolic syndrome, s/p vfib cardiac arrest, Septic shock, aspiration pneumonia, transaminitis, VINCENT with acute metabolic encephalopathy Acute hypoxemic respiratory failure on MVS s/p cardiac arrest Altered mental status Aspiration pneumonia Shock (Cardiogenic +/- Septic) Severe Metabolic Acidosis Morbid Obesity BMI 37.5 Diabetes type II Hypotension Obesity hypoventilation syndrome He has esinophilia and leukocytosis- currently on Benadryl for the rash Discontinue CVL, in the setting of leukocytosis, no clinical indication for CVL. Place midline/peripheral IVs Discontinue Dunbar catheter and use condom cath OK to start Precedex to help with agitation and sedation needs- Seroquel was discontinued as the rash was thought to be secondary to Seroquel SAT/SBT today may need diuretic prior to liberation from MVS Decrease D5W rate to 50ml, hypernatremia has resolved and the patient's glycemic control is sub-optimal on Lantus insulin at 50 units Monitor temperature curve and WCC Daily SBT as tolerated- I do think he will meet criteria for liberation from MVS. 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), nursing - continue to titrate supplemental oxygen to keep SpO2 89-92% - VAP bundle addressed, aspiration precautions - continue lung protective strategies - continue bronchodilators with pulmonary hygiene per RT - wean per pulmonary driven protocols otherwise - avoid nephrotoxins, renally dose all medications - continue accuchecks with glycemic control per SSI (While critically ill target blood glucose of 140-180 mg/dL; avoid hypoglycemia) - continue to avoid benzodiazepines, reduce the possibility of delirium - prn analgesia per CPOT score - Maintenance of sleep-wake cycle, avoid delirium - continue enteral nutritional support at goal rate as tolerated - Stress ulcer and VTE prophylaxis - continue mobility per facility protocol, off loading and frequent turning for pressure ulcer prevention - Monitor hemodynamics closely - continue other care per attending / other consultants - discharge planning ongoing concurrently COVID SPECIFIC INTERVENTIONS - COVID-19 test result negative CONDITION: CRITICAL PROGNOSIS: GUARDED CODE STATUS: FULL CODE The high probability of a clinically significant, sudden or life-threatening deterioration of the [respiratory, cardiovascular, renal ] system(s) required my full and direct attention, intervention and personal management. The aggregate critical care time was [35] minutes without overlap. Time includes spent on; [x] Data Review and interpretation [x] Patient assessment and monitoring of vital signs [x] Documentation [x] Medication orders and management Subjective Date of service: 04/27/22 Principal diagnosis: AHRF; AMS; Pneumonia; Shock; DM II; Severe Metabolic Acidosis Interval history: Patient is seen today for: Acute hypoxemic respiratory failure; AMS; Aspiration pneumonia; Shock (Cardiogenic +/- Septic); DM II; Severe Metabolic Acidosis Seen and examined at bedside; 24hour events reviewed; nursing and respiratory care staff consulted; no adverse overnight events reported to me; resting in bed; remains on MVS; PEEP +8/35%, obeying simple commands; no emesis or overt aspiration; no fevers, no vomiting. No acute overnight events reported, visiting at the bedside On Propofol at 20 mcg Objective Vital Signs - 12hr 04/26/22 04/26/22 04/26/22 23:00 23:26 23:30 Temperature Pulse Rate 91 H 94 H 101 H Pulse Rate [ From Monitor] Respiratory 15 18 17 Rate Blood Pressure O2 Sat by Pulse 99 99 99 Oximetry 04/26/22 04/26/22 04/26/22 23:42 23:44 23:45 Temperature 100.7 F H Pulse Rate 115 H 98 H Pulse Rate [ 98 H From Monitor] Respiratory 21 19 Rate Blood Pressure O2 Sat by Pulse 97 99 Oximetry 04/26/22 04/27/22 04/27/22 23:49 00:00 00:30 Temperature Pulse Rate 93 H 98 H 90 Pulse Rate [ From Monitor] Respiratory 16 18 Rate Blood Pressure 120/58 O2 Sat by Pulse 98 98 98 Oximetry 04/27/22 04/27/22 04/27/22 01:00 01:30 02:00 Temperature Pulse Rate 95 H 93 H 90 Pulse Rate [ From Monitor] Respiratory 13 17 15 Rate Blood Pressure O2 Sat by Pulse 99 99 99 Oximetry 04/27/22 04/27/22 04/27/22 02:30 03:00 03:30 Temperature Pulse Rate 94 H 100 H 98 H Pulse Rate [ From Monitor] Respiratory 20 16 21 Rate Blood Pressure O2 Sat by Pulse 99 98 96 Oximetry 04/27/22 04/27/22 04/27/22 03:35 03:42 03:44 Temperature 100 F H Pulse Rate 99 H 95 H Pulse Rate [ 101 H From Monitor] Respiratory 17 Rate Blood Pressure 130/68 O2 Sat by Pulse 99 96 Oximetry 04/27/22 04/27/22 04/27/22 04:00 04:30 05:00 Temperature Pulse Rate 100 H 93 H 92 H Pulse Rate [ From Monitor] Respiratory 16 19 18 Rate Blood Pressure O2 Sat by Pulse 98 99 98 Oximetry 04/27/22 04/27/22 04/27/22 05:30 06:00 06:30 Temperature Pulse Rate 96 H 96 H 98 H Pulse Rate [ From Monitor] Respiratory 18 20 18 Rate Blood Pressure O2 Sat by Pulse 99 100 100 Oximetry 04/27/22 04/27/22 04/27/22 07:00 07:23 07:30 Temperature 99.9 F H Pulse Rate 103 H 101 H Pulse Rate [ From Monitor] Respiratory 20 13 Rate Blood Pressure O2 Sat by Pulse 99 96 Oximetry 04/27/22 04/27/22 04/27/22 08:00 08:10 09:35 Temperature Pulse Rate 102 H 96 H 99 H Pulse Rate [ 102 H From Monitor] Respiratory 15 27 H Rate Blood Pressure O2 Sat by Pulse 96 97 99 Oximetry Constitutional: no acute distress, alert, other (elderly obese male ) Eyes: non-icteric ENT: oropharynx moist, other (ETT 24 cm DIANNE) Neck: supple, no JVD, other (RIJ CVL) Effort: normal Ascultation: Bilateral: diminished breath sounds, rales (improved), rhonchi (scant) Percussion: Bilateral: not dull Cardiovascular: irregular rhythm, other (No R/M) Gastrointestinal: normoactive bowel sounds, soft, non-tender, non-distended (protuberant), other (Dunbar catheter) Integumentary: rash (erythematous rash over anterior chest wall and upper extremities) Extremities: no cyanosis, no edema, pulses normal, no ischemia or petechiae, edema (bilateral upper extemities) Neurologic: non-focal exam (grossly), pupils equal and round, other (obeys simple commands) Psychiatric: other (Unable to assess due to mental status.) CBC and BMP: 04/27/22 04:00 04/27/22 04:00 ABG, PT/INR, D-dimer: ABG ABG pH 7.408 pH Units (7.350-7.450) 04/25/22 18:00 ABG pCO2 52.6 mm Hg 04/25/22 18:00 ABG pO2 81.4 mm Hg (80.0-90.0) 04/25/22 18:00 ABG O2 Saturation 97.0 % (95.0-99.0) 04/25/22 18:00 PT/INR, D-dimer PT 15.6 Sec. (12.2-14.9) H 04/18/22 Unknown INR 1.08 (0.87-1.13) 04/18/22 Unknown Abnormal lab findings: Abnormal Labs 04/17/22 04/17/22 04/17/22 19:18 19:55 19:56 WBC RBC Hgb Hct RDW Plt Count Lymph % (Auto) [place] % (Auto) Eos % (Auto) Lymph # (Auto) [place] # (Auto) Eos # (Auto) Seg Neutrophils % Seg Neuts % (Manual) Lymphocytes % (Manual) Eosinophils % (Manual) Seg Neutrophils # Seg Neutrophils # Man Lymphocytes # (Manual) Eosinophils # (Manual) PT Activated Coag Time Heparin Anti-Xa Level ABG pH 7.120 L* ABG pO2 45.3 L ABG HCO3 18.5 L ABG O2 Saturation 68.3 L ABG Base Excess -11.5 L ABG Hemoglobin Oxyhemoglobin 66.8 L Sodium Potassium Chloride 94.2 L Carbon Dioxide 17 L BUN Creatinine 1.6 H Glucose 315 H POC Glucose 277 H Lactic Acid Calcium Phosphorus Magnesium AST 529 H ALT 318 H Alkaline Phosphatase 137 H Total Creatine Kinase 398 H CK-MB (CK-2) 17.9 H CK-MB (CK-2) Rel Index 4.4 H Troponin T 0.205 H* Total Protein Albumin Triglycerides Urine Blood Urine WBC (Auto) Urine Creatinine 04/17/22 04/17/22 04/17/22 19:58 19:58 21:42 WBC 11.9 H RBC 5.17 H Hgb 15.5 H Hct 48.0 H RDW Plt Count Lymph % (Auto) [place] % (Auto) Eos % (Auto) Lymph # (Auto) [place] # (Auto) Eos # (Auto) Seg Neutrophils % 71.7 H Seg Neuts % (Manual) Lymphocytes % (Manual) Eosinophils % (Manual) Seg Neutrophils # 8.5 H Seg Neutrophils # Man Lymphocytes # (Manual) Eosinophils # (Manual) PT Activated Coag Time Heparin Anti-Xa Level ABG pH ABG pO2 ABG HCO3 ABG O2 Saturation ABG Base Excess ABG Hemoglobin Oxyhemoglobin Sodium Potassium Chloride 95.0 L Carbon Dioxide 19 L BUN Creatinine 1.5 H Glucose 306 H POC Glucose Lactic Acid Calcium Phosphorus Magnesium AST ALT Alkaline Phosphatase Total Creatine Kinase 412 H CK-MB (CK-2) 19.2 H CK-MB (CK-2) Rel Index 4.6 H Troponin T 0.285 H* D Total Protein Albumin Triglycerides Urine Blood Urine WBC (Auto) Urine Creatinine 04/17/22 04/18/22 04/18/22 21:42 00:40 01:07 WBC RBC Hgb Hct RDW Plt Count Lymph % (Auto) [place] % (Auto) Eos % (Auto) Lymph # (Auto) [place] # (Auto) Eos # (Auto) Seg Neutrophils % Seg Neuts % (Manual) Lymphocytes % (Manual) Eosinophils % (Manual) Seg Neutrophils # Seg Neutrophils # Man Lymphocytes # (Manual) Eosinophils # (Manual) PT Activated Coag Time Heparin Anti-Xa Level ABG pH ABG pO2 ABG HCO3 ABG O2 Saturation ABG Base Excess ABG Hemoglobin Oxyhemoglobin Sodium Potassium Chloride Carbon Dioxide BUN Creatinine Glucose POC Glucose 320 H Lactic Acid 7.90 H* 7.90 H* Calcium Phosphorus Magnesium AST ALT Alkaline Phosphatase Total Creatine Kinase CK-MB (CK-2) CK-MB (CK-2) Rel Index Troponin T Total Protein Albumin Triglycerides Urine Blood Urine WBC (Auto) Urine Creatinine 04/18/22 04/18/22 04/18/22 01:07 04:00 06:04 WBC RBC Hgb Hct RDW Plt Count Lymph % (Auto) [place] % (Auto) Eos % (Auto) Lymph # (Auto) [place] # (Auto) Eos # (Auto) Seg Neutrophils % Seg Neuts % (Manual) Lymphocytes % (Manual) Eosinophils % (Manual) Seg Neutrophils # Seg Neutrophils # Man Lymphocytes # (Manual) Eosinophils # (Manual) PT Activated Coag Time Heparin Anti-Xa Level < 0.10 L ABG pH ABG pO2 ABG HCO3 ABG O2 Saturation ABG Base Excess ABG Hemoglobin Oxyhemoglobin Sodium Potassium Chloride Carbon Dioxide BUN Creatinine Glucose POC Glucose 305 H Lactic Acid Calcium Phosphorus Magnesium AST ALT Alkaline Phosphatase Total Creatine Kinase 488 H CK-MB (CK-2) 25.3 H CK-MB (CK-2) Rel Index 5.1 H Troponin T 0.665 H* D Total Protein Albumin Triglycerides Urine Blood Urine WBC (Auto) Urine Creatinine 04/18/22 04/18/22 04/18/22 06:20 11:10 12:48 WBC RBC Hgb Hct RDW Plt Count Lymph % (Auto) [place] % (Auto) Eos % (Auto) Lymph # (Auto) [place] # (Auto) Eos # (Auto) Seg Neutrophils % Seg Neuts % (Manual) Lymphocytes % (Manual) Eosinophils % (Manual) Seg Neutrophils # Seg Neutrophils # Man Lymphocytes # (Manual) Eosinophils # (Manual) PT Activated Coag Time Heparin Anti-Xa Level < 0.10 L ABG pH 7.119 L* 7.304 L ABG pO2 56.1 L 103.5 H ABG HCO3 18.4 L 14.4 L ABG O2 Saturation 80.7 L ABG Base Excess -11.4 L -10.6 L ABG Hemoglobin 13.5 L Oxyhemoglobin 79.2 L Sodium Potassium Chloride Carbon Dioxide BUN Creatinine Glucose POC Glucose Lactic Acid Calcium Phosphorus Magnesium AST ALT Alkaline Phosphatase Total Creatine Kinase CK-MB (CK-2) CK-MB (CK-2) Rel Index Troponin T Total Protein Albumin Triglycerides Urine Blood Urine WBC (Auto) Urine Creatinine 04/18/22 04/18/22 04/18/22 13:13 16:00 16:00 WBC RBC Hgb Hct RDW Plt Count Lymph % (Auto) [place] % (Auto) Eos % (Auto) Lymph # (Auto) [place] # (Auto) Eos # (Auto) Seg Neutrophils % Seg Neuts % (Manual) Lymphocytes % (Manual) Eosinophils % (Manual) Seg Neutrophils # Seg Neutrophils # Man Lymphocytes # (Manual) Eosinophils # (Manual) PT Activated Coag Time Heparin Anti-Xa Level ABG pH ABG pO2 ABG HCO3 ABG O2 Saturation ABG Base Excess ABG Hemoglobin Oxyhemoglobin Sodium Potassium Chloride Carbon Dioxide BUN Creatinine Glucose POC Glucose 334 H Lactic Acid 7.00 H* Calcium Phosphorus 5.70 H Magnesium 1.30 L AST ALT Alkaline Phosphatase Total Creatine Kinase 969 H CK-MB (CK-2) 55.9 H CK-MB (CK-2) Rel Index 5.7 H Troponin T 1.580 H* D Total Protein Albumin Triglycerides Urine Blood Urine WBC (Auto) Urine Creatinine 04/18/22 04/18/22 04/18/22 16:00 18:00 18:01 WBC RBC Hgb Hct RDW Plt Count Lymph % (Auto) [place] % (Auto) Eos % (Auto) Lymph # (Auto) [place] # (Auto) Eos # (Auto) Seg Neutrophils % Seg Neuts % (Manual) Lymphocytes % (Manual) Eosinophils % (Manual) Seg Neutrophils # Seg Neutrophils # Man Lymphocytes # (Manual) Eosinophils # (Manual) PT Activated Coag Time Heparin Anti-Xa Level < 0.10 L ABG pH ABG pO2 ABG HCO3 ABG O2 Saturation ABG Base Excess ABG Hemoglobin Oxyhemoglobin Sodium 136 L Potassium 6.3 H* D Chloride 97.6 L Carbon Dioxide 18 L BUN 34 H Creatinine 3.5 H Glucose 409 H POC Glucose 397 H Lactic Acid Calcium 6.8 L Phosphorus Magnesium AST ALT Alkaline Phosphatase Total Creatine Kinase CK-MB (CK-2) CK-MB (CK-2) Rel Index Troponin T Total Protein Albumin Triglycerides Urine Blood Urine WBC (Auto) Urine Creatinine 04/18/22 04/18/22 04/18/22 19:13 20:58 21:22 WBC RBC Hgb Hct RDW Plt Count Lymph % (Auto) [place] % (Auto) Eos % (Auto) Lymph # (Auto) [place] # (Auto) Eos # (Auto) Seg Neutrophils % Seg Neuts % (Manual) Lymphocytes % (Manual) Eosinophils % (Manual) Seg Neutrophils # Seg Neutrophils # Man Lymphocytes # (Manual) Eosinophils # (Manual) PT Activated Coag Time Heparin Anti-Xa Level ABG pH 7.502 H ABG pO2 144.5 H ABG HCO3 ABG O2 Saturation ABG Base Excess ABG Hemoglobin 12.5 L Oxyhemoglobin Sodium Potassium Chloride Carbon Dioxide BUN Creatinine Glucose POC Glucose 321 H 307 H Lactic Acid Calcium Phosphorus Magnesium AST ALT Alkaline Phosphatase Total Creatine Kinase CK-MB (CK-2) CK-MB (CK-2) Rel Index Troponin T Total Protein Albumin Triglycerides Urine Blood Urine WBC (Auto) Urine Creatinine 04/18/22 04/18/22 04/18/22 21:30 21:30 Unknown WBC RBC Hgb Hct RDW Plt Count Lymph % (Auto) [place] % (Auto) Eos % (Auto) Lymph # (Auto) [place] # (Auto) Eos # (Auto) Seg Neutrophils % Seg Neuts % (Manual) 81.0 H Lymphocytes % (Manual) 12.0 L Eosinophils % (Manual) Seg Neutrophils # 9.8 H Seg Neutrophils # Man 8.7 H Lymphocytes # (Manual) Eosinophils # (Manual) PT Activated Coag Time Heparin Anti-Xa Level ABG pH ABG pO2 ABG HCO3 ABG O2 Saturation ABG Base Excess ABG Hemoglobin Oxyhemoglobin Sodium Potassium Chloride 96.6 L Carbon Dioxide BUN 37 H Creatinine 3.6 H Glucose 312 H POC Glucose Lactic Acid 5.50 H* Calcium 7.3 L Phosphorus Magnesium AST ALT Alkaline Phosphatase Total Creatine Kinase CK-MB (CK-2) CK-MB (CK-2) Rel Index Troponin T Total Protein Albumin Triglycerides Urine Blood Urine WBC (Auto) Urine Creatinine 04/18/22 04/18/22 04/19/22 Unknown Unknown 00:35 WBC RBC Hgb Hct RDW Plt Count Lymph % (Auto) [place] % (Auto) Eos % (Auto) Lymph # (Auto) [place] # (Auto) Eos # (Auto) Seg Neutrophils % Seg Neuts % (Manual) Lymphocytes % (Manual) Eosinophils % (Manual) Seg Neutrophils # Seg Neutrophils # Man Lymphocytes # (Manual) Eosinophils # (Manual) PT 15.6 H Activated Coag Time Heparin Anti-Xa Level ABG pH ABG pO2 ABG HCO3 ABG O2 Saturation ABG Base Excess ABG Hemoglobin Oxyhemoglobin Sodium Potassium Chloride Carbon Dioxide 18 L BUN 26 H Creatinine 2.5 H D Glucose 330 H POC Glucose Lactic Acid Calcium 7.9 L Phosphorus Magnesium AST 463 H ALT 249 H Alkaline Phosphatase Total Creatine Kinase CK-MB (CK-2) CK-MB (CK-2) Rel Index Troponin T 2.670 H* D Total Protein Albumin 3.3 L Triglycerides Urine Blood Urine WBC (Auto) Urine Creatinine 04/19/22 04/19/22 04/19/22 00:39 02:08 02:08 WBC RBC Hgb Hct RDW Plt Count Lymph % (Auto) [place] % (Auto) Eos % (Auto) Lymph # (Auto) [place] # (Auto) Eos # (Auto) Seg Neutrophils % Seg Neuts % (Manual) Lymphocytes % (Manual) Eosinophils % (Manual) Seg Neutrophils # Seg Neutrophils # Man Lymphocytes # (Manual) Eosinophils # (Manual) PT Activated Coag Time Heparin Anti-Xa Level ABG pH ABG pO2 ABG HCO3 ABG O2 Saturation ABG Base Excess ABG Hemoglobin Oxyhemoglobin Sodium Potassium Chloride Carbon Dioxide BUN Creatinine Glucose POC Glucose 263 H Lactic Acid Calcium Phosphorus Magnesium AST ALT Alkaline Phosphatase Total Creatine Kinase CK-MB (CK-2) CK-MB (CK-2) Rel Index Troponin T Total Protein Albumin Triglycerides Urine Blood Large A Urine WBC (Auto) 88.0 H Urine Creatinine 90.9 H 04/19/22 04/19/22 04/19/22 02:08 03:45 03:45 WBC 14.2 H RBC Hgb Hct RDW Plt Count Lymph % (Auto) [place] % (Auto) Eos % (Auto) Lymph # (Auto) [place] # (Auto) Eos # (Auto) Seg Neutrophils % Seg Neuts % (Manual) Lymphocytes % (Manual) Eosinophils % (Manual) Seg Neutrophils # Seg Neutrophils # Man Lymphocytes # (Manual) Eosinophils # (Manual) PT Activated Coag Time Heparin Anti-Xa Level 0.18 L ABG pH ABG pO2 ABG HCO3 ABG O2 Saturation ABG Base Excess ABG Hemoglobin Oxyhemoglobin Sodium Potassium Chloride 94.2 L Carbon Dioxide BUN 39 H Creatinine 3.8 H Glucose 243 H POC Glucose Lactic Acid Calcium 7.1 L Phosphorus Magnesium 1.50 L AST 380 H ALT 289 H Alkaline Phosphatase Total Creatine Kinase CK-MB (CK-2) CK-MB (CK-2) Rel Index Troponin T Total Protein 5.4 L Albumin 2.5 L Triglycerides Urine Blood Urine WBC (Auto) Urine Creatinine 04/19/22 04/19/22 04/19/22 03:45 06:01 07:11 WBC RBC Hgb Hct RDW Plt Count Lymph % (Auto) [place] % (Auto) Eos % (Auto) Lymph # (Auto) [place] # (Auto) Eos # (Auto) Seg Neutrophils % Seg Neuts % (Manual) Lymphocytes % (Manual) Eosinophils % (Manual) Seg Neutrophils # Seg Neutrophils # Man Lymphocytes # (Manual) Eosinophils # (Manual) PT Activated Coag Time Heparin Anti-Xa Level ABG pH ABG pO2 ABG HCO3 ABG O2 Saturation ABG Base Excess ABG Hemoglobin Oxyhemoglobin Sodium Potassium Chloride Carbon Dioxide BUN Creatinine Glucose POC Glucose 165 H Lactic Acid 4.00 H* Calcium Phosphorus Magnesium AST ALT Alkaline Phosphatase Total Creatine Kinase 3270 H CK-MB (CK-2) 28.5 H CK-MB (CK-2) Rel Index Troponin T 2.980 H* Total Protein Albumin Triglycerides Urine Blood Urine WBC (Auto) Urine Creatinine 04/19/22 04/19/22 04/19/22 07:50 08:50 12:49 WBC RBC Hgb Hct RDW Plt Count Lymph % (Auto) [place] % (Auto) Eos % (Auto) Lymph # (Auto) [place] # (Auto) Eos # (Auto) Seg Neutrophils % Seg Neuts % (Manual) Lymphocytes % (Manual) Eosinophils % (Manual) Seg Neutrophils # Seg Neutrophils # Man Lymphocytes # (Manual) Eosinophils # (Manual) PT Activated Coag Time Heparin Anti-Xa Level ABG pH 7.471 H ABG pO2 58.9 L ABG HCO3 27.1 H ABG O2 Saturation 91.7 L ABG Base Excess 3.4 H ABG Hemoglobin 12.2 L Oxyhemoglobin 90.0 L Sodium Potassium Chloride Carbon Dioxide BUN Creatinine Glucose POC Glucose 331 H Lactic Acid 3.40 H* Calcium Phosphorus Magnesium AST ALT Alkaline Phosphatase Total Creatine Kinase CK-MB (CK-2) CK-MB (CK-2) Rel Index Troponin T Total Protein Albumin Triglycerides Urine Blood Urine WBC (Auto) Urine Creatinine 04/19/22 04/19/22 04/19/22 16:15 19:25 21:17 WBC RBC Hgb Hct RDW Plt Count Lymph % (Auto) [place] % (Auto) Eos % (Auto) Lymph # (Auto) [place] # (Auto) Eos # (Auto) Seg Neutrophils % Seg Neuts % (Manual) Lymphocytes % (Manual) Eosinophils % (Manual) Seg Neutrophils # Seg Neutrophils # Man Lymphocytes # (Manual) Eosinophils # (Manual) PT Activated Coag Time Heparin Anti-Xa Level ABG pH ABG pO2 ABG HCO3 ABG O2 Saturation ABG Base Excess ABG Hemoglobin Oxyhemoglobin Sodium Potassium Chloride Carbon Dioxide BUN Creatinine Glucose POC Glucose 304 H 251 H Lactic Acid 4.00 H* Calcium Phosphorus Magnesium AST ALT Alkaline Phosphatase Total Creatine Kinase CK-MB (CK-2) CK-MB (CK-2) Rel Index Troponin T Total Protein Albumin Triglycerides Urine Blood Urine WBC (Auto) Urine Creatinine 04/19/22 04/20/22 04/20/22 23:00 04:12 04:12 WBC 12.2 H RBC Hgb 11.6 L Hct 35.3 L RDW Plt Count Lymph % (Auto) [place] % (Auto) Eos % (Auto) Lymph # (Auto) [place] # (Auto) Eos # (Auto) Seg Neutrophils % Seg Neuts % (Manual) Lymphocytes % (Manual) Eosinophils % (Manual) Seg Neutrophils # Seg Neutrophils # Man Lymphocytes # (Manual) Eosinophils # (Manual) PT Activated Coag Time Heparin Anti-Xa Level 0.15 L ABG pH ABG pO2 ABG HCO3 ABG O2 Saturation ABG Base Excess ABG Hemoglobin Oxyhemoglobin Sodium Potassium Chloride Carbon Dioxide BUN Creatinine Glucose POC Glucose 236 H Lactic Acid Calcium Phosphorus Magnesium AST ALT Alkaline Phosphatase Total Creatine Kinase CK-MB (CK-2) CK-MB (CK-2) Rel Index Troponin T Total Protein Albumin Triglycerides Urine Blood Urine WBC (Auto) Urine Creatinine 04/20/22 04/20/22 04/20/22 04:12 04:12 09:10 WBC RBC Hgb Hct RDW Plt Count Lymph % (Auto) [place] % (Auto) Eos % (Auto) Lymph # (Auto) [place] # (Auto) Eos # (Auto) Seg Neutrophils % Seg Neuts % (Manual) Lymphocytes % (Manual) Eosinophils % (Manual) Seg Neutrophils # Seg Neutrophils # Man Lymphocytes # (Manual) Eosinophils # (Manual) PT Activated Coag Time Heparin Anti-Xa Level ABG pH ABG pO2 ABG HCO3 ABG O2 Saturation ABG Base Excess ABG Hemoglobin Oxyhemoglobin Sodium 133 L Potassium 3.5 L Chloride 91.9 L Carbon Dioxide BUN 44 H Creatinine 4.6 H Glucose 263 H POC Glucose Lactic Acid 2.80 H* Calcium 7.2 L Phosphorus Magnesium AST 553 H ALT 471 H Alkaline Phosphatase Total Creatine Kinase 3019 H CK-MB (CK-2) CK-MB (CK-2) Rel Index Troponin T Total Protein 5.7 L Albumin 2.4 L Triglycerides 254 H Urine Blood Urine WBC (Auto) Urine Creatinine 04/20/22 04/20/22 04/20/22 09:31 11:18 18:08 WBC RBC Hgb Hct RDW Plt Count Lymph % (Auto) [place] % (Auto) Eos % (Auto) Lymph # (Auto) [place] # (Auto) Eos # (Auto) Seg Neutrophils % Seg Neuts % (Manual) Lymphocytes % (Manual) Eosinophils % (Manual) Seg Neutrophils # Seg Neutrophils # Man Lymphocytes # (Manual) Eosinophils # (Manual) PT Activated Coag Time Heparin Anti-Xa Level ABG pH 7.512 H ABG pO2 ABG HCO3 26.2 H ABG O2 Saturation ABG Base Excess 3.2 H ABG Hemoglobin 9.0 L Oxyhemoglobin Sodium Potassium Chloride Carbon Dioxide BUN Creatinine Glucose POC Glucose 285 H 293 H Lactic Acid Calcium Phosphorus Magnesium AST ALT Alkaline Phosphatase Total Creatine Kinase CK-MB (CK-2) CK-MB (CK-2) Rel Index Troponin T Total Protein Albumin Triglycerides Urine Blood Urine WBC (Auto) Urine Creatinine 04/20/22 04/21/22 04/21/22 21:40 00:10 04:00 WBC RBC Hgb Hct RDW Plt Count Lymph % (Auto) [place] % (Auto) Eos % (Auto) Lymph # (Auto) [place] # (Auto) Eos # (Auto) Seg Neutrophils % Seg Neuts % (Manual) Lymphocytes % (Manual) Eosinophils % (Manual) Seg Neutrophils # Seg Neutrophils # Man Lymphocytes # (Manual) Eosinophils # (Manual) PT Activated Coag Time Heparin Anti-Xa Level 0.16 L ABG pH ABG pO2 59.4 L ABG HCO3 29.7 H ABG O2 Saturation 90.1 L ABG Base Excess 3.1 H ABG Hemoglobin 11.6 L Oxyhemoglobin 88.2 L Sodium Potassium Chloride Carbon Dioxide BUN Creatinine Glucose POC Glucose 290 H Lactic Acid Calcium Phosphorus Magnesium AST ALT Alkaline Phosphatase Total Creatine Kinase CK-MB (CK-2) CK-MB (CK-2) Rel Index Troponin T Total Protein Albumin Triglycerides Urine Blood Urine WBC (Auto) Urine Creatinine 04/21/22 04/21/22 04/21/22 04:30 04:30 05:57 WBC 17.9 H RBC Hgb 11.7 L Hct 35.1 L RDW Plt Count Lymph % (Auto) [place] % (Auto) Eos % (Auto) Lymph # (Auto) [place] # (Auto) Eos # (Auto) Seg Neutrophils % Seg Neuts % (Manual) Lymphocytes % (Manual) Eosinophils % (Manual) Seg Neutrophils # Seg Neutrophils # Man Lymphocytes # (Manual) Eosinophils # (Manual) PT Activated Coag Time Heparin Anti-Xa Level ABG pH ABG pO2 ABG HCO3 ABG O2 Saturation ABG Base Excess ABG Hemoglobin Oxyhemoglobin Sodium Potassium Chloride 95.7 L Carbon Dioxide BUN 45 H Creatinine 4.2 H Glucose 309 H POC Glucose 265 H Lactic Acid Calcium 7.4 L Phosphorus 5.60 H D Magnesium 2.50 H AST 217 H ALT 376 H Alkaline Phosphatase Total Creatine Kinase CK-MB (CK-2) CK-MB (CK-2) Rel Index Troponin T Total Protein Albumin 2.8 L Triglycerides Urine Blood Urine WBC (Auto) Urine Creatinine 04/21/22 04/21/22 04/21/22 12:14 13:45 18:10 WBC RBC Hgb Hct RDW Plt Count Lymph % (Auto) [place] % (Auto) Eos % (Auto) Lymph # (Auto) [place] # (Auto) Eos # (Auto) Seg Neutrophils % Seg Neuts % (Manual) Lymphocytes % (Manual) Eosinophils % (Manual) Seg Neutrophils # Seg Neutrophils # Man Lymphocytes # (Manual) Eosinophils # (Manual) PT Activated Coag Time 179 H Heparin Anti-Xa Level ABG pH ABG pO2 ABG HCO3 ABG O2 Saturation ABG Base Excess ABG Hemoglobin Oxyhemoglobin Sodium Potassium Chloride Carbon Dioxide BUN Creatinine Glucose POC Glucose 248 H 240 H Lactic Acid Calcium Phosphorus Magnesium AST ALT Alkaline Phosphatase Total Creatine Kinase CK-MB (CK-2) CK-MB (CK-2) Rel Index Troponin T Total Protein Albumin Triglycerides Urine Blood Urine WBC (Auto) Urine Creatinine 04/22/22 04/22/22 04/22/22 00:09 04:00 04:33 WBC 12.4 H RBC 3.34 L Hgb 9.8 L Hct 29.7 L RDW Plt Count 138 L Lymph % (Auto) [place] % (Auto) Eos % (Auto) Lymph # (Auto) [place] # (Auto) Eos # (Auto) Seg Neutrophils % Seg Neuts % (Manual) Lymphocytes % (Manual) Eosinophils % (Manual) Seg Neutrophils # Seg Neutrophils # Man Lymphocytes # (Manual) Eosinophils # (Manual) PT Activated Coag Time Heparin Anti-Xa Level ABG pH ABG pO2 ABG HCO3 ABG O2 Saturation ABG Base Excess ABG Hemoglobin Oxyhemoglobin Sodium Potassium Chloride Carbon Dioxide BUN 40 H Creatinine 2.9 H Glucose 269 H POC Glucose 248 H Lactic Acid Calcium 7.3 L Phosphorus Magnesium AST ALT Alkaline Phosphatase Total Creatine Kinase 973 H CK-MB (CK-2) CK-MB (CK-2) Rel Index Troponin T Total Protein Albumin Triglycerides Urine Blood Urine WBC (Auto) Urine Creatinine 04/22/22 04/22/22 04/22/22 10:13 11:51 18:02 WBC RBC Hgb Hct RDW Plt Count Lymph % (Auto) [place] % (Auto) Eos % (Auto) Lymph # (Auto) [place] # (Auto) Eos # (Auto) Seg Neutrophils % Seg Neuts % (Manual) Lymphocytes % (Manual) Eosinophils % (Manual) Seg Neutrophils # Seg Neutrophils # Man Lymphocytes # (Manual) Eosinophils # (Manual) PT Activated Coag Time Heparin Anti-Xa Level ABG pH ABG pO2 56.1 L ABG HCO3 28.4 H ABG O2 Saturation 89.3 L ABG Base Excess ABG Hemoglobin 9.8 L Oxyhemoglobin 87.7 L Sodium Potassium Chloride Carbon Dioxide BUN Creatinine Glucose POC Glucose 302 H 266 H Lactic Acid Calcium Phosphorus Magnesium AST ALT Alkaline Phosphatase Total Creatine Kinase CK-MB (CK-2) CK-MB (CK-2) Rel Index Troponin T Total Protein Albumin Triglycerides Urine Blood Urine WBC (Auto) Urine Creatinine 04/22/22 04/22/22 04/23/22 21:18 23:30 04:19 WBC RBC 3.34 L Hgb 9.9 L Hct 29.9 L RDW Plt Count Lymph % (Auto) [place] % (Auto) Eos % (Auto) Lymph # (Auto) [place] # (Auto) Eos # (Auto) Seg Neutrophils % Seg Neuts % (Manual) 74.0 H Lymphocytes % (Manual) 10.0 L Eosinophils % (Manual) 7.0 H Seg Neutrophils # Seg Neutrophils # Man 8.0 H Lymphocytes # (Manual) 1.1 L Eosinophils # (Manual) 0.8 H PT Activated Coag Time Heparin Anti-Xa Level ABG pH ABG pO2 ABG HCO3 ABG O2 Saturation ABG Base Excess ABG Hemoglobin Oxyhemoglobin Sodium Potassium Chloride Carbon Dioxide BUN Creatinine Glucose POC Glucose 299 H 299 H Lactic Acid Calcium Phosphorus Magnesium AST ALT Alkaline Phosphatase Total Creatine Kinase CK-MB (CK-2) CK-MB (CK-2) Rel Index Troponin T Total Protein Albumin Triglycerides Urine Blood Urine WBC (Auto) Urine Creatinine 04/23/22 04/23/22 04/23/22 04:19 05:24 11:20 WBC RBC Hgb Hct RDW Plt Count Lymph % (Auto) [place] % (Auto) Eos % (Auto) Lymph # (Auto) [place] # (Auto) Eos # (Auto) Seg Neutrophils % Seg Neuts % (Manual) Lymphocytes % (Manual) Eosinophils % (Manual) Seg Neutrophils # Seg Neutrophils # Man Lymphocytes # (Manual) Eosinophils # (Manual) PT Activated Coag Time Heparin Anti-Xa Level ABG pH ABG pO2 ABG HCO3 ABG O2 Saturation ABG Base Excess ABG Hemoglobin Oxyhemoglobin Sodium Potassium 3.5 L Chloride Carbon Dioxide BUN 30 H Creatinine 2.3 H Glucose 289 H POC Glucose 271 H 302 H Lactic Acid Calcium 7.8 L Phosphorus Magnesium AST 46 H ALT 158 H Alkaline Phosphatase 138 H Total Creatine Kinase CK-MB (CK-2) CK-MB (CK-2) Rel Index Troponin T Total Protein 6.2 L Albumin 2.6 L Triglycerides 230 H Urine Blood Urine WBC (Auto) Urine Creatinine 04/23/22 04/23/22 04/23/22 18:07 18:20 21:14 WBC RBC Hgb Hct RDW Plt Count Lymph % (Auto) [place] % (Auto) Eos % (Auto) Lymph # (Auto) [place] # (Auto) Eos # (Auto) Seg Neutrophils % Seg Neuts % (Manual) Lymphocytes % (Manual) Eosinophils % (Manual) Seg Neutrophils # Seg Neutrophils # Man Lymphocytes # (Manual) Eosinophils # (Manual) PT Activated Coag Time Heparin Anti-Xa Level ABG pH ABG pO2 ABG HCO3 31.6 H ABG O2 Saturation ABG Base Excess 4.8 H ABG Hemoglobin 18.3 H Oxyhemoglobin 94.8 L Sodium Potassium Chloride Carbon Dioxide BUN Creatinine Glucose POC Glucose 228 H 175 H Lactic Acid Calcium Phosphorus Magnesium AST ALT Alkaline Phosphatase Total Creatine Kinase CK-MB (CK-2) CK-MB (CK-2) Rel Index Troponin T Total Protein Albumin Triglycerides Urine Blood Urine WBC (Auto) Urine Creatinine 04/23/22 04/24/22 04/24/22 23:24 04:35 04:47 WBC RBC Hgb Hct RDW Plt Count Lymph % (Auto) [place] % (Auto) Eos % (Auto) Lymph # (Auto) [place] # (Auto) Eos # (Auto) Seg Neutrophils % Seg Neuts % (Manual) Lymphocytes % (Manual) Eosinophils % (Manual) Seg Neutrophils # Seg Neutrophils # Man Lymphocytes # (Manual) Eosinophils # (Manual) PT Activated Coag Time Heparin Anti-Xa Level ABG pH ABG pO2 ABG HCO3 31.5 H ABG O2 Saturation ABG Base Excess 6.1 H ABG Hemoglobin 10.3 L Oxyhemoglobin Sodium Potassium Chloride Carbon Dioxide BUN Creatinine Glucose POC Glucose 168 H 177 H Lactic Acid Calcium Phosphorus Magnesium AST ALT Alkaline Phosphatase Total Creatine Kinase CK-MB (CK-2) CK-MB (CK-2) Rel Index Troponin T Total Protein Albumin Triglycerides Urine Blood Urine WBC (Auto) Urine Creatinine 04/24/22 04/24/22 04/24/22 06:00 06:00 12:45 WBC 14.0 H RBC 3.57 L Hgb 10.1 L Hct 31.9 L RDW Plt Count Lymph % (Auto) 4.7 L [place] % (Auto) 8.8 H Eos % (Auto) 6.0 H Lymph # (Auto) 0.7 L [place] # (Auto) 1.2 H Eos # (Auto) 0.8 H Seg Neutrophils % 80.5 H Seg Neuts % (Manual) Lymphocytes % (Manual) Eosinophils % (Manual) Seg Neutrophils # 11.3 H Seg Neutrophils # Man Lymphocytes # (Manual) Eosinophils # (Manual) PT Activated Coag Time Heparin Anti-Xa Level ABG pH ABG pO2 ABG HCO3 ABG O2 Saturation ABG Base Excess ABG Hemoglobin Oxyhemoglobin Sodium Potassium 3.4 L Chloride Carbon Dioxide BUN 25 H Creatinine 1.8 H Glucose 218 H POC Glucose 227 H Lactic Acid Calcium 8.2 L Phosphorus Magnesium AST ALT 99 H Alkaline Phosphatase 141 H Total Creatine Kinase CK-MB (CK-2) CK-MB (CK-2) Rel Index Troponin T Total Protein 6.2 L Albumin 2.2 L Triglycerides Urine Blood Urine WBC (Auto) Urine Creatinine 04/24/22 04/24/22 04/24/22 17:57 21:19 23:24 WBC RBC Hgb Hct RDW Plt Count Lymph % (Auto) [place] % (Auto) Eos % (Auto) Lymph # (Auto) [place] # (Auto) Eos # (Auto) Seg Neutrophils % Seg Neuts % (Manual) Lymphocytes % (Manual) Eosinophils % (Manual) Seg Neutrophils # Seg Neutrophils # Man Lymphocytes # (Manual) Eosinophils # (Manual) PT Activated Coag Time Heparin Anti-Xa Level ABG pH ABG pO2 ABG HCO3 ABG O2 Saturation ABG Base Excess ABG Hemoglobin Oxyhemoglobin Sodium Potassium Chloride Carbon Dioxide BUN Creatinine Glucose POC Glucose 207 H 186 H 203 H Lactic Acid Calcium Phosphorus Magnesium AST ALT Alkaline Phosphatase Total Creatine Kinase CK-MB (CK-2) CK-MB (CK-2) Rel Index Troponin T Total Protein Albumin Triglycerides Urine Blood Urine WBC (Auto) Urine Creatinine 04/25/22 04/25/22 04/25/22 03:30 03:30 04:38 WBC 19.7 H RBC 3.39 L Hgb 9.8 L Hct 30.2 L RDW 15.6 H Plt Count Lymph % (Auto) 4.7 L [place] % (Auto) Eos % (Auto) 5.0 H Lymph # (Auto) 0.9 L [place] # (Auto) 1.2 H Eos # (Auto) 1.0 H Seg Neutrophils % 84.0 H Seg Neuts % (Manual) Lymphocytes % (Manual) Eosinophils % (Manual) Seg Neutrophils # 16.5 H Seg Neutrophils # Man Lymphocytes # (Manual) Eosinophils # (Manual) PT Activated Coag Time Heparin Anti-Xa Level ABG pH ABG pO2 ABG HCO3 ABG O2 Saturation ABG Base Excess ABG Hemoglobin Oxyhemoglobin Sodium 151 H Potassium 3.5 L Chloride 108.6 H Carbon Dioxide 31 H BUN 27 H Creatinine 1.9 H Glucose 144 H POC Glucose 135 H Lactic Acid Calcium 8.3 L Phosphorus Magnesium AST ALT Alkaline Phosphatase Total Creatine Kinase CK-MB (CK-2) CK-MB (CK-2) Rel Index Troponin T Total Protein Albumin Triglycerides Urine Blood Urine WBC (Auto) Urine Creatinine 04/25/22 04/25/22 04/25/22 05:09 12:12 17:58 WBC RBC Hgb Hct RDW Plt Count Lymph % (Auto) [place] % (Auto) Eos % (Auto) Lymph # (Auto) [place] # (Auto) Eos # (Auto) Seg Neutrophils % Seg Neuts % (Manual) Lymphocytes % (Manual) Eosinophils % (Manual) Seg Neutrophils # Seg Neutrophils # Man Lymphocytes # (Manual) Eosinophils # (Manual) PT Activated Coag Time Heparin Anti-Xa Level ABG pH ABG pO2 ABG HCO3 32.2 H ABG O2 Saturation ABG Base Excess 6.7 H ABG Hemoglobin 9.9 L Oxyhemoglobin 94.9 L Sodium Potassium Chloride Carbon Dioxide BUN Creatinine Glucose POC Glucose 218 H 229 H Lactic Acid Calcium Phosphorus Magnesium AST ALT Alkaline Phosphatase Total Creatine Kinase CK-MB (CK-2) CK-MB (CK-2) Rel Index Troponin T Total Protein Albumin Triglycerides Urine Blood Urine WBC (Auto) Urine Creatinine 04/25/22 04/25/22 04/26/22 18:00 23:48 05:20 WBC RBC Hgb 9.4 L Hct 30.1 L RDW Plt Count Lymph % (Auto) [place] % (Auto) Eos % (Auto) Lymph # (Auto) [place] # (Auto) Eos # (Auto) Seg Neutrophils % Seg Neuts % (Manual) Lymphocytes % (Manual) Eosinophils % (Manual) Seg Neutrophils # Seg Neutrophils # Man Lymphocytes # (Manual) Eosinophils # (Manual) PT Activated Coag Time Heparin Anti-Xa Level ABG pH ABG pO2 ABG HCO3 32.4 H ABG O2 Saturation ABG Base Excess 6.8 H ABG Hemoglobin 9.5 L Oxyhemoglobin Sodium Potassium Chloride Carbon Dioxide BUN Creatinine Glucose POC Glucose 214 H Lactic Acid Calcium Phosphorus Magnesium AST ALT Alkaline Phosphatase Total Creatine Kinase CK-MB (CK-2) CK-MB (CK-2) Rel Index Troponin T Total Protein Albumin Triglycerides Urine Blood Urine WBC (Auto) Urine Creatinine 04/26/22 04/26/22 04/26/22 05:20 05:51 11:39 WBC RBC Hgb Hct RDW Plt Count Lymph % (Auto) [place] % (Auto) Eos % (Auto) Lymph # (Auto) [place] # (Auto) Eos # (Auto) Seg Neutrophils % Seg Neuts % (Manual) Lymphocytes % (Manual) Eosinophils % (Manual) Seg Neutrophils # Seg Neutrophils # Man Lymphocytes # (Manual) Eosinophils # (Manual) PT Activated Coag Time Heparin Anti-Xa Level ABG pH ABG pO2 ABG HCO3 ABG O2 Saturation ABG Base Excess ABG Hemoglobin Oxyhemoglobin Sodium 147 H Potassium Chloride Carbon Dioxide 33 H BUN 27 H Creatinine 1.6 H Glucose 221 H POC Glucose 227 H 263 H Lactic Acid Calcium Phosphorus Magnesium AST ALT Alkaline Phosphatase Total Creatine Kinase CK-MB (CK-2) CK-MB (CK-2) Rel Index Troponin T Total Protein Albumin Triglycerides Urine Blood Urine WBC (Auto) Urine Creatinine 04/26/22 04/26/22 04/27/22 16:22 23:14 04:00 WBC RBC Hgb Hct RDW Plt Count Lymph % (Auto) [place] % (Auto) Eos % (Auto) Lymph # (Auto) [place] # (Auto) Eos # (Auto) Seg Neutrophils % Seg Neuts % (Manual) Lymphocytes % (Manual) Eosinophils % (Manual) Seg Neutrophils # Seg Neutrophils # Man Lymphocytes # (Manual) Eosinophils # (Manual) PT Activated Coag Time Heparin Anti-Xa Level ABG pH ABG pO2 ABG HCO3 ABG O2 Saturation ABG Base Excess ABG Hemoglobin Oxyhemoglobin Sodium Potassium Chloride Carbon Dioxide BUN 23 H Creatinine 1.4 H Glucose 231 H POC Glucose 250 H 221 H Lactic Acid Calcium 8.3 L Phosphorus Magnesium AST 45 H ALT Alkaline Phosphatase 180 H Total Creatine Kinase CK-MB (CK-2) CK-MB (CK-2) Rel Index Troponin T Total Protein Albumin 2.1 L Triglycerides Urine Blood Urine WBC (Auto) Urine Creatinine 04/27/22 04/27/22 04:00 05:25 WBC 20.1 H RBC 3.28 L Hgb 9.5 L Hct 29.3 L RDW Plt Count Lymph % (Auto) 5.9 L [place] % (Auto) 8.0 H Eos % (Auto) 5.5 H Lymph # (Auto) [place] # (Auto) 1.6 H Eos # (Auto) 1.1 H Seg Neutrophils % 80.3 H Seg Neuts % (Manual) Lymphocytes % (Manual) Eosinophils % (Manual) Seg Neutrophils # 16.2 H Seg Neutrophils # Man Lymphocytes # (Manual) Eosinophils # (Manual) PT Activated Coag Time Heparin Anti-Xa Level ABG pH ABG pO2 ABG HCO3 ABG O2 Saturation ABG Base Excess ABG Hemoglobin Oxyhemoglobin Sodium Potassium Chloride Carbon Dioxide BUN Creatinine Glucose POC Glucose 234 H Lactic Acid Calcium Phosphorus Magnesium AST ALT Alkaline Phosphatase Total Creatine Kinase CK-MB (CK-2) CK-MB (CK-2) Rel Index Troponin T Total Protein Albumin Triglycerides Urine Blood Urine WBC (Auto) Urine Creatinine Chest x-ray: image reviewed Allied health notes reviewed: RT
[2022-04-27] MEDS: DEXTROSE 5% IN WATER 1,000 ML IV SCH ×2 (10:52→21:33)
[2022-04-27] MEDS: ACETAMINOPHEN 325 MG TAB PO PRN ×2 (11:58→17:48)
[2022-04-27] MEDS: DOCUSATE SODIUM 100 MG/10 ML ORAL LIQD FEEDTUBE SCH ×2 (12:32→21:22)
--- NOTE | 2022-04-27 12:54 | Progress Note ---
Assessment and Plan 1. Acute kidney injury: Vasomotor VINCENT in the setting of shock. IV contrast on 04/17. Renal US negative. Monitor renal function. Creatinine level improving. Avoid nephrotoxic agents. Meds dosage based on GFR. 2. FEN: Hypernatremia, improved. Anion-gap metabolic acidosis, improved, monitor. Replete lytes as needed. Monitor lytes and volume status. 3. S/p V.fib Cardiac arrest, POA: On Amio. Followed by Cards. Monitor. 4. Shock: Currently off pressors. Monitor. 5. A.fib: On Amio. Followed by Cards. Monitor. 6. Acute Hypoxemic Respiratory Failure: Bilateral Pneumonia- Probable Aspiration. CTA negative for PE, reveals bilateral airspace disease, greater in the Upper lobs. Intubated in the filed during code on 04/17. Remain intubated and on vent. Monitor. 7. Elevated ALT & AST: Trend. 8. Acute metabolic encephalopathy, POA: Monitor. 9. Rhabdomyolysis: Trend CK. Care plan d/w . Subjective: Patient was seen and examined at the bedside. at the the bedside. Examination: General appearance: well-developed, appears stated age, obese, no distress, intubated, on vent HEENT: atraumatic, no icterus, pupils equal Neck: trachea midline Respiratory: ctab Heart: S1S2, no murmur Abdomen: soft, bowel sounds heard, NT Integumentary: no obvious rash Neurologic: somnolent, able to move extremities Ext: no edema Subjective Date of service: 04/27/22 Principal diagnosis: AHRF; AMS; Pneumonia; Shock; DM II; Severe Metabolic Acidosis Objective - Vital Signs Vital signs: Vital Signs - 12hr 04/27/22 04/27/22 04/27/22 01:00 01:30 02:00 Temperature Pulse Rate 95 H 93 H 90 Pulse Rate [ From Monitor] Respiratory 13 17 15 Rate Blood Pressure O2 Sat by Pulse 99 99 99 Oximetry 04/27/22 04/27/22 04/27/22 02:30 03:00 03:30 Temperature Pulse Rate 94 H 100 H 98 H Pulse Rate [ From Monitor] Respiratory 20 16 21 Rate Blood Pressure O2 Sat by Pulse 99 98 96 Oximetry 04/27/22 04/27/22 04/27/22 03:35 03:42 03:44 Temperature 100 F H Pulse Rate 99 H 95 H Pulse Rate [ 101 H From Monitor] Respiratory 17 Rate Blood Pressure 130/68 O2 Sat by Pulse 99 96 Oximetry 04/27/22 04/27/22 04/27/22 04:00 04:30 05:00 Temperature Pulse Rate 100 H 93 H 92 H Pulse Rate [ From Monitor] Respiratory 16 19 18 Rate Blood Pressure O2 Sat by Pulse 98 99 98 Oximetry 04/27/22 04/27/22 04/27/22 05:30 06:00 06:30 Temperature Pulse Rate 96 H 96 H 98 H Pulse Rate [ From Monitor] Respiratory 18 20 18 Rate Blood Pressure O2 Sat by Pulse 99 100 100 Oximetry 04/27/22 04/27/22 04/27/22 07:00 07:23 07:30 Temperature 99.9 F H Pulse Rate 103 H 101 H Pulse Rate [ From Monitor] Respiratory 20 13 Rate Blood Pressure O2 Sat by Pulse 99 96 Oximetry 04/27/22 04/27/22 04/27/22 08:00 08:10 08:30 Temperature Pulse Rate 102 H 96 H 88 Pulse Rate [ 102 H From Monitor] Respiratory 15 19 Rate Blood Pressure O2 Sat by Pulse 96 97 98 Oximetry 04/27/22 04/27/22 04/27/22 09:00 09:30 09:35 Temperature Pulse Rate 99 H 93 H 99 H Pulse Rate [ From Monitor] Respiratory 14 27 H 27 H Rate Blood Pressure O2 Sat by Pulse 98 99 99 Oximetry 04/27/22 04/27/22 04/27/22 10:00 10:30 11:00 Temperature Pulse Rate 99 H 108 H 103 H Pulse Rate [ From Monitor] Respiratory 21 22 26 H Rate Blood Pressure O2 Sat by Pulse 97 96 97 Oximetry 04/27/22 04/27/22 04/27/22 11:30 11:40 12:00 Temperature 101.5 F H Pulse Rate 98 H 97 H Pulse Rate [ 96 H From Monitor] Respiratory 17 17 Rate Blood Pressure O2 Sat by Pulse 97 98 Oximetry 04/27/22 12:07 Temperature Pulse Rate 97 H Pulse Rate [ From Monitor] Respiratory 34 H Rate Blood Pressure 118/68 O2 Sat by Pulse 98 Oximetry - Lab 04/27/22 04:00 04/27/22 04:00 Most recent lab results ABG pH 7.408 pH Units (7.350-7.450) 04/25/22 18:00 ABG pCO2 52.6 mm Hg 04/25/22 18:00 ABG pO2 81.4 mm Hg (80.0-90.0) 04/25/22 18:00 ABG HCO3 32.4 mmol/L (20.0-26.0) H 04/25/22 18:00 ABG O2 Saturation 97.0 % (95.0-99.0) 04/25/22 18:00 Calcium 8.3 mg/dL (8.4-10.2) L 04/27/22 04:00 Phosphorus 3.60 mg/dL (2.5-4.5) 04/26/22 05:20 Magnesium 2.00 mg/dL (1.7-2.3) 04/26/22 05:20 Urine Creatinine 90.9 mg/dL (0.1-20.0) H 04/19/22 02:08 Urine Sodium 54 mmol/L 04/19/22 02:08 Medications & Allergies - Medications Allergies/Adverse Reactions: Allergies lisinopril Allergy (Verified 04/27/22 06:02) Angioedema Home Medications: Home Medications Medication Instructions Recorded Confirmed Last Taken Type AtorvaSTATin 40 mg PO QHS 04/22/22 04/22/22 Unknown History Humulin N 22 units SQ QHS 04/22/22 04/22/22 Unknown History amLODIPine 10 mg PO QAM 04/22/22 04/22/22 Unknown History glipiZIDE 20 mg PO BID 04/22/22 04/22/22 Unknown History metFORMIN 850 mg PO TID 04/22/22 04/22/22 Unknown History Active Medications: Generic Name Dose Route Start Last Admin Trade Name Freq PRN Reason Stop Dose Admin Acetaminophen 650 mg 04/17/22 19:48 04/27/22 11:58 Acetaminophen 325 Mg Tab PO 650 mg Q6H PRN Administration Pain MILD(1-3)/Fever >100.5/CHE Albuterol 2.5 mg 04/17/22 19:48 Albuterol 2.5 Mg/3 Ml Nebu IH Q3HRT PRN Shortness Of Breath Amiodarone HCl 400 mg 04/26/22 22:00 04/27/22 10:09 Amiodarone 200 Mg Tab PO 400 mg BID FLACO Administration Aspirin 81 mg 04/20/22 12:00 04/27/22 10:08 Aspirin 81 Mg Tab Chew FEEDTUBE 81 mg QDAY FLACO Administration Atorvastatin Calcium 20 mg 04/20/22 22:00 04/26/22 21:05 Atorvastatin 20 Mg Tab FEEDTUBE 20 mg QHS FLACO Administration Dextrose 0 ml 04/17/22 23:46 Dextrose 50% In Water (25gm) 50 Ml Syringe IV Q30MIN PRN Hypoglycemia Protocol Diphenhydramine HCl 25 mg 04/26/22 10:00 04/27/22 10:08 Diphenhydramine 50 Mg/Ml Vial IV 04/28/22 09:59 25 mg Q6H FLACO Administration Docusate Sodium 100 mg 04/27/22 11:00 04/27/22 12:32 Docusate Sodium 100 Mg/10 Ml Oral Liqd FEEDTUBE 100 mg BID FLACO Administration Famotidine 20 mg 04/27/22 10:00 04/27/22 10:09 Famotidine 20 Mg Tab FEEDTUBE 20 mg BID FL[place]O Administration Fentanyl 50 mcg 04/17/22 20:22 04/18/22 03:52 Fentanyl 100 Mcg/2 Ml Inj IV 50 mcg Q10MIN PRN Administration ANALGESIA Heparin Sodium (Porcine) 5,000 unit 04/21/22 22:00 04/27/22 10:09 Heparin 5,000 Unit/1 Ml Vial SUB-Q 5,000 unit Q12HR FLACO Administration Hydrophilic Ointment 1 applic 04/18/22 06:02 04/26/22 20:29 Lip Therapy Vaseline TP 1 applic Q2HR PRN Administration Dry Lips Fentanyl Citrate 2,000 mcg in 100 mls @ 5.443 mls/hr 04/17/22 21:00 04/27/22 09:21 Fentanyl Drip Premix IV 0 mcg/kg/hr TITR FLACO 0 mls/hr Titration Protocol 1 MCG/KG/HR Propofol 1,000 mg in 100 mls @ 3.456 mls/hr 04/18/22 07:00 04/27/22 12:29 Diprivan 10 Mg/Ml IV 15 mcg/kg/min TITR FLACO 10.368 mls/hr Administration Protocol 5 MCG/KG/MIN Dextrose 1,000 mls @ 50 mls/hr 04/25/22 14:00 04/27/22 10:52 D5w IV 100 mls/hr DIRECT FLACO Administration Insulin Glargine 50 units 04/26/22 22:00 04/26/22 21:05 Insulin Glargine 100 Units/Ml SUB-Q 50 units QHS FLACO Administration Insulin Human Lispro 0 unit 04/18/22 00:00 04/27/22 11:56 Insulin Lispro 100 Unit/Ml SUB-Q 4 unit Q6HR FLACO Administration Protocol Insulin Human Lispro 8 unit 04/26/22 12:00 04/27/22 11:57 Insulin Lispro 100 Unit/Ml SUB-Q 8 unit Q6HR FLACO Administration Multi-Ingred Cream/Lotion/Oil/Oint 1 applic 04/18/22 06:02 Mineral Oil/Petrolatum, White Ophth Oint 3.5 Gm OU Q4HR PRN Dry Eye(s) Oxycodone/Acetaminophen 1 tab 04/22/22 11:05 Oxycodone /Acetaminophen 5-325mg Tab FEEDTUBE Q6H PRN Pain, Moderate (4-6) Senna/Docusate Sodium 1 tab 04/18/22 10:00 04/27/22 10:08 Sennosides/Docusate Sodium 8.6/50 Mg Tab FEEDTUBE 1 tab BID FLACO Administration Sodium Chloride 10 ml 04/17/22 22:00 04/27/22 10:09 Sodium Chloride 0.9% 10 Ml Flush Syringe IV 10 ml BID FLACO Administration Sodium Chloride 10 ml 04/17/22 19:48 Sodium Chloride 0.9% 10 Ml Flush Syringe IV PRN PRN LINE FLUSH
--- NOTE | 2022-04-27 12:57 | Progress Note ---
Assessment and Plan It will be recalled that he presented to [facility] emergency clinic with chest pain, and during his evaluation there, suffered an acute cardiopulmonary arrest prompting his transfer to the emergency room at [facility]. Ventricular fibrillation was reported, although no strips available for review. EKG on presentation here was a rapid atrial fibrillation with some nonspecific ST segment changes which have since resolved. Echocardiogram showed a four-chamber dilated cardiomyopathy with left ventricular ejection fraction 15 to 20%. The chronicity of the cardiomyopathy is uncertain, the patient's does not report any recent cardiac evaluation, with only a history of atrial fibrillation requiring cardioversion some 15 years ago. Cardiac catheterization performed this admission showed no significant obstructive coronary lesions, consistent with nonischemic cardiomyopathy. Post cardiac catheterization, and IV hydration, his creatinine has reduced from 4.6- 2.9. The patient however still vent dependent, with high oxygen rate requirements. Chest x-ray today shows a mostly right lung opacity, the ICU team is treating him for possible aspiration. Eventually, he would need a device during this hospitalization for secondary prevention of sudden cardiac before discharge as he had cardiac arrest and low ejection fraction. If the patient has active infection and cannot get a device he will at least need a LifeVest we will introduce afterload agents and beta-blockers for LV systolic dysfunction once he is off pressors/inotropic agents and clinically stable. We will continue oral amiodarone, indicated for rate control as we have very limited option for rate control strategy. He will need long-term oral anticoagulation for atrial fibrillation will initiate it when clinically stable. - Patient Problems (1) Atrial fibrillation with RVR Current Visit: Yes Status: Acute (2) Cardiac arrest Current Visit: Yes Status: Acute (3) Cardiogenic shock Current Visit: Yes Status: Acute Subjective Principal diagnosis: AHRF; AMS; Pneumonia; Shock; DM II; Severe Metabolic Acidosis Interval history: Patient is off all pressors tolerating CPAP trials. Amiodarone was increased to 400 and he is tolerating it well with rates controlled and improved blood pressure overnight. His creatinine continues to improve. Patient is awake and following commands Telemetry reviewed, still in atrial fibrillation with heart rates in low 90-100s Objective Vital Signs Temp Pulse Pulse Resp BP Pulse Ox 04/27/22 12:07 97 H 34 H 118/68 98 04/27/22 12:00 97 H 96 H 17 98 04/27/22 11:40 101.5 F H 04/27/22 11:30 98 H 17 97 04/27/22 11:00 103 H 26 H 97 04/27/22 10:30 108 H 22 96 04/27/22 10:00 99 H 21 97 04/27/22 09:35 99 H 27 H 99 04/27/22 09:30 93 H 27 H 99 04/27/22 09:00 99 H 14 98 04/27/22 08:30 88 19 98 04/27/22 08:10 96 H 97 04/27/22 08:00 102 H 102 H 15 96 04/27/22 07:30 101 H 13 96 04/27/22 07:23 99.9 F H 04/27/22 07:00 103 H 20 99 04/27/22 06:30 98 H 18 100 04/27/22 06:00 96 H 20 100 04/27/22 05:30 96 H 18 99 04/27/22 05:00 92 H 18 98 04/27/22 04:30 93 H 19 99 04/27/22 04:00 100 H 16 98 04/27/22 03:44 95 H 130/68 96 04/27/22 03:42 99 H 101 H 17 99 04/27/22 03:35 100 F H 04/27/22 03:30 98 H 21 96 04/27/22 03:00 100 H 16 98 04/27/22 02:30 94 H 20 99 04/27/22 02:00 90 15 99 04/27/22 01:30 93 H 17 99 04/27/22 01:00 95 H 13 99 04/27/22 00:30 90 18 98 04/27/22 00:00 98 H 16 98 04/26/22 23:49 93 H 120/58 98 04/26/22 23:45 100.7 F H 98 H 19 99 04/26/22 23:44 98 H 04/26/22 23:42 115 H 21 97 04/26/22 23:30 101 H 17 99 04/26/22 23:26 94 H 18 99 04/26/22 23:00 91 H 15 99 04/26/22 22:30 95 H 14 99 04/26/22 22:00 101 H 17 99 04/26/22 21:30 100 H 17 99 04/26/22 21:00 93 H 17 99 04/26/22 20:30 102 H 17 99 04/26/22 20:00 105 H 20 100 04/26/22 19:49 100 H 21 99 04/26/22 19:47 97 H 04/26/22 19:42 100.2 F H 04/26/22 19:30 104 H 19 98 04/26/22 19:22 102 H 109/59 100 04/26/22 19:00 104 H 17 100 04/26/22 18:30 103 H 20 100 04/26/22 18:00 98 H 17 98 04/26/22 17:30 105 H 22 99 04/26/22 17:25 97 H 147/76 100 04/26/22 17:00 98 H 18 99 04/26/22 16:30 97 H 18 99 04/26/22 16:00 99.0 F 102 H 96 H 17 98 04/26/22 15:30 101 H 18 99 04/26/22 15:00 96 H 17 99 04/26/22 14:30 102 H 19 98 04/26/22 14:03 117 H 146/70 96 04/26/22 14:00 123 H 34 H 97 04/26/22 13:30 120 H 27 H 98 04/26/22 13:00 123 H 21 98 - Physical Examination General: Other (Patient is intubated, sedated, on the vent) HEENT: Positive: EOMI Neck: Positive: neck supple Cardiac: Positive: Irregularly Regular, S1/S2 Lungs: Positive: clear to auscultation (Anterior), Decreased Breath Sounds Neuro: Positive: Grossly Intact, Other (Intubated, sedated on the vent, unable to assess) Abdomen: Positive: Soft Skin: Positive: Rash (On the left hand which is dressed), Other (Blisters on the right hand) Extremities: Present: edema (Trace) - Labs and Meds Cardiac Enzymes 04/27/22 Range/Units 04:00 AST 45 H (5-40) units/L CBC 04/27/22 Range/Units 04:00 WBC 20.1 H (4.5-11.0) K/mm3 RBC 3.28 L (3.65-5.03) M/mm3 Hgb 9.5 L (11.8-15.2) gm/dl Hct 29.3 L (35.5-45.6) % Plt Count 371 (140-440) K/mm3 Lymph # (Auto) 1.2 (1.2-5.4) K/mm3 [place] # (Auto) 1.6 H (0.0-0.8) K/mm3 Eos # (Auto) 1.1 H (0.0-0.4) K/mm3 Baso # (Auto) 0.1 (0.0-0.1) K/mm3 Comprehensive Metabolic Panel 04/27/22 Range/Units 04:00 Sodium 140 (137-145) mmol/L Potassium 3.6 (3.6-5.0) mmol/L Chloride 100.0 (98-107) mmol/L Carbon Dioxide 29 (22-30) mmol/L BUN 23 H (9-20) mg/dL Creatinine 1.4 H (0.8-1.3) mg/dL Glucose 231 H (75-100) mg/dL Calcium 8.3 L (8.4-10.2) mg/dL AST 45 H (5-40) units/L ALT 53 (7-56) units/L Alkaline Phosphatase 180 H (35-129) units/L Total Protein 6.4 (6.3-8.2) g/dL Albumin 2.1 L (3.9-5) g/dL - Allied health notes Allied health notes reviewed: nursing
--- NOTE | 2022-04-27 13:07 | Progress Note ---
<ANDIE MARIANO - Last Filed: 04/28/22 17:18> Assessment and Plan Assessment and plan: This is a 61-year-old male with known past medical history of obsesity, DM, HTN, and Atrial fibrillation s/p cardioversion over 12hrs ago, unclear if patient was on AC at home admitted s/p outside of the hospital cardiac arrest/V-fib arrest with ROSC. Hospital Course to Date: 04/18: Severely acidotic this am, now on bcarb gtt. On high dose pressors- Levophed and Vaso. Afib in control rate on the monitor, on Amiodarone and heparin gtt per protocol. Cardiology is following. Patient remains afebrile and leukocytosis improved this am. Now with worsen renal function and low UOP. Patient's EF is 25 to 30%, Dobutamine gtt initiated. Continue current IV abx, continue to trend troponin and lactic acid. Nephrology also consulted for further recs. BLE swelling noted, BLE doppler ordered to r/o DVT. 04/19: Agitation with low SPO2 overnight, sedation increased. This am ABG with worsen hypoxia on 40% Fio2, SPO2 at 90% this am. Fio2 increased to 50%, SPO2 improved above 92%. Remains on multiple pressors and bcarb gtt. Now on dopamine gtt, in Afib with RVR on the monitor. Still on Amiodarone and heparin gtts. Echo noted, EF 15 to 20%. Cardiology is following. With worsen renal function, however making urine this am. No indication for [employer] at this per Nephro. Will continue to monitor. Monitor and replace electrolytes as needed 04/20: Nephrology spoke to at bedside re HD, cardiology will proceed with [facility] if patient is to recieve HD post procedure, vent changes per [facility], Sedated with fentanyl and propofol with heparin and amio gtt infusing. 04/21: LHC today. Nephrology will continue IVF and if renal function worsens then will proceed HD with consent from family. Patient became hypoxic with FiO2 at 40% yesterday evening and is currently at 65%. 04/22: Patient was started on vasopressin IV fluids yesterday and his creatinine decreased from 4.2 to 2.9. Patient severely agitated while on propofol and fentanyl. Started low-dose Seroquel and started to wean propofol as tolerated. Patient does follow commands today. Increase in lantus. IV fluids decreased, started on dobutamine per CCM and wean vasopressin for target MAP of 65-70 and SBP greater than 110 04/23: This morning patient being extremely hypertensive with SBP into 200s and given metoprolol. Rn asked to wean propofol as tolerated. Dobutamine decreased to 2.5. Cr improved. US chest completed and showed no pleural effusions. This afternoon alerted by RN that RT believes pt bite through his tube and anesthesia was called to bedside for tube exchange. Decision was made to extubate and reintubate the patient. CXR ordered. 04/24: Patient placed on CPAP trial. Renal numbers look better today. Cardiology would like to try digoxin. No acute events reported overnight. 04/25: Patient now with hypernatremia, slightly increased renal function today but still putting out over 1 L urine over the past 24 hours. Will increase free water flushes and repleate potassium cautiously. Cardilogy will like to continue current management. PSV when able 04/26: Cardiology will increase amiodarone due to heart rate being in the 110s to 120s and will hold off digoxin, remains on dobutamine drip. Hypernatremia improving. Remains on D5 W per nephrology. PSV this AM. Rash noted to trunk, arms, chest. RN to hold off Seroquel. Started on IV Benadryl. Already n.p.o. famotidine. Updated [place] physician who also informed me that the patient is allergic to lisinopril (angioedema) 04/27: Tolerating PSV trail this am on low dose sedation. Per [facility], plan to wean vent setting for possible extubation. If patient requires higher dose of sedation, will add precedex gtt for trial to wean off sedation. Patient with low grade fevers with worsening leukopcytosis, B.cultures from yesterday with NGTD. Will do a lines vacations, D/C CVC and penn. Patient is hemodynamically stable, will continue to monitor for now. Patient is also net positive balance since admit, hypernatremia resolved, and renal function improved, will decrease IVF fo r now. Nephrology is also following. Assessment and Plan #Cardiogenic Shock #S/p Cardiac Arrest/V-Fib Arrest with ROSC #NSTEMI #H/o Atrial Fibrillation, HTN - Found in the bathroom unresponsive at a [facility]. - EMS found patient in V-Fib arrest treated per ACLS ROSC achieved - Positive troponinX3, EKG with no significant ST changes - s/p Dopamine and Dobutamine gtts - Afib control on the monitor, HR 90-100d - 2D echo reviewed. EF 15 to 20% - [facility] severe nonischemic cardiomyopathy with patent coronary arteries, which per cardiology presumably resulted in a primary cardiac arrest. - On PO Amio - Continue blood pressure monitor per protocol - Maintain MAP above 65 and SBP less than 160 #Acute Hypoxemic Respiratory Failure - Intubated in the filed during code on 04/17 - Imaging reveals bilateral airspace disease, greater in the Upper lobs. Most likely aspiration - Vent setting: PSV-35%,8 PS-8 - No ABG this am - CCM consulted, appreciate recommendations - Continue vent adjustement per CCM - VAP bundle addressed - Aspiration precaution HOB above 30 - Daily SBT and SAT trials as tolerated - Daily ABG and CXR - Continue SPO2 monitoring for SPO2 goal above 92% - Per CCM, plan to wean vent setting for possible extubation. #Acute Metabolic Encephalopathy-improved #Agitation #Face Contusion s/p Fall-improved - Found in the bathroom unresponsive at a [facility] facility. Most likely fell and hit his head - CT head reviewed, no acute intracranial abnormality - While awake on sedations, on low dose propofol - Tolerating PSV trial. - If patient requires higher dose of sedation, will add precedex gtt for trial to wean off sedation. - Daily SAT and SBT per [facility] - Avoid benzodiazepine to reduce the possibility of delirium - PRN Analgesia CPOT greater than 3 - Maintenance of sleep-wake cycle #Acute Kidney Injury(VINCENT) most likely ATN #Hypernatrmia #Hypekalemia-resolved - secondary to above. hypoperfusion/hypotension - Patient also received IV contrast - Baseline renal function is unknown - Hypernatremia and renal function improved - Nephrology on consult, appreciated recommendation - On D5W, will reduce for now since patient is net positive - Strict intake and output - Avoid nephrotoxic medications; Renally dose medications - Penn in place with adequate UOP - Monitor and replace electrolytes as needed - Continue FWF #Fevers #Leukocytosis #Bilateral Pneumonia #Probably Aspiration Pneumonia #Severe Metabolic Acidosis-resolved - Imaging reveals bilateral airspace disease, greater in the Upper lobs. Most likely aspiration - Remains afebrile, now with leukocytosis, acidosis improved - UA with elevated WBCs - Blood and sputum cultures pending - Empiric IV Abx initiated - F/U on cultures - Daily CBC monitor - Consider ID consult if febrile or/and if leukocytosis reoccur #Transaminitis #Shock Liver - most likely reactive from above/hypoperfusion - Close monitoring of LFTs, now on amiodarone gtt - Trend LFTs #Elevated D-Dimer - CTA chest with no evidence of PE - With BLE swelling- BLE doppler pending - On Heparin gtt per protocol #Type 2 Diabetes Mellitus - Hgb A1C pending - BG check and SSI Q6hrs - Avoid hypoglycemia #GI/DVT Prophylaxis - PPI- Pepcid - Heparin gtt #Advance Care Planning - Disease education data, care plan, diagnoses, and prognosis were discussed with patient's at the bedside. Patient is a FULL code. Patient's acknowledged understanding and agreed with current care plan. The high probability of a clinically significant, sudden or life threatening deterioration of the [multiple] system(s) required my full and direct attention, intervention and personal management. The aggregate critical care time was [60] minutes. This time is in addition to time spent performing reported procedures but includes the following: [x] Data Review and interpretation [x] Patient assessment and monitoring of vital signs [x] Documentation [x] Medication orders and management Disposition Plan: ICU Total Time Spent with Patient (Minutes): 60 History Interval history: Patient seen and examined at the bedside. Remain on the vent, tolerating PSV trial. Remains on low dose sedation during trial. VSS. GERONIMO overnight Hospitalist Physical - Constitutional Vitals: Temp Pulse Resp BP Pulse Ox 101.5 F H 94 H 13 118/68 99 04/27/22 11:40 04/27/22 13:00 04/27/22 13:00 04/27/22 12:07 04/27/22 13:00 General appearance: Present: no acute distress, other (Intubated and Sedated) - EENT Eyes: Present: PERRL ENT: hearing intact - Neck Neck: Present: normal ROM - Respiratory Respiratory effort: normal Respiratory: bilateral: rhonchi - Cardiovascular Rhythm: regular Heart Sounds: Present: S1 & S2 - Extremities Extremities: no ischemia, pulses intact, pulses symmetrical Extremity abnormal: edema - Peripheral Assessment Left Upper Extremity Edema Type: Pitting Edema Degree: 3+ Capillary Refill: < 3 seconds Skin Temperature: Warm Generalized Edema Type: Pitting Edema Degree: 2+ Capillary Refill: < 3 seconds Skin Temperature: Warm Peripheral Pulses: within normal limits - Abdominal General gastrointestinal: soft, non-distended, normal bowel sounds - Integumentary Integumentary: Present: warm, dry - Psychiatric Psychiatric: appropriate mood/affect, cooperative - Neurologic Neurologic: moves all extremities, other (Awake on low dose sedation) - Allied Health Allied health notes reviewed: nursing, case management HEART Score - HEART Score Troponin: Troponin T 2.980 ng/mL (0.00-0.029) H* 04/19/22 07:11 Results - Labs CBC & Chem 7: 04/28/22 05:28 04/28/22 05:28 Labs: Laboratory Last Values WBC 20.1 K/mm3 (4.5-11.0) H 04/27/22 04:00 RBC 3.28 M/mm3 (3.65-5.03) L 04/27/22 04:00 Hgb 9.5 gm/dl (11.8-15.2) L 04/27/22 04:00 Hct 29.3 % (35.5-45.6) L 04/27/22 04:00 MCV 90 fl (84-94) 04/27/22 04:00 MCH 29 pg (28-32) 04/27/22 04:00 MCHC 32 % (32-34) 04/27/22 04:00 RDW 15.1 % (13.2-15.2) 04/27/22 04:00 Plt Count 371 K/mm3 (140-440) 04/27/22 04:00 Lymph % (Auto) 5.9 % (13.4-35.0) L 04/27/22 04:00 Walker % (Auto) 8.0 % (0.0-7.3) H 04/27/22 04:00 Eos % (Auto) 5.5 % (0.0-4.3) H 04/27/22 04:00 Baso % (Auto) 0.3 % (0.0-1.8) 04/27/22 04:00 Lymph # (Auto) 1.2 K/mm3 (1.2-5.4) 04/27/22 04:00 Walker # (Auto) 1.6 K/mm3 (0.0-0.8) H 04/27/22 04:00 Eos # (Auto) 1.1 K/mm3 (0.0-0.4) H 04/27/22 04:00 Baso # (Auto) 0.1 K/mm3 (0.0-0.1) 04/27/22 04:00 Add Manual Diff Complete 04/23/22 04:19 Total Counted 100 04/23/22 04:19 Seg Neutrophils % 80.3 % (40.0-70.0) H 04/27/22 04:00 Seg Neuts % (Manual) 74.0 % (40.0-70.0) H 04/23/22 04:19 Band Neutrophils % 2.0 % 04/23/22 04:19 Lymphocytes % (Manual) 10.0 % (13.4-35.0) L 04/23/22 04:19 Reactive Lymphs % (Man) 0 % 04/23/22 04:19 Monocytes % (Manual) 7.0 % (0.0-7.3) 04/23/22 04:19 Eosinophils % (Manual) 7.0 % (0.0-4.3) H 04/23/22 04:19 Basophils % (Manual) 0 % (0.0-1.8) 04/23/22 04:19 Metamyelocytes % 0 % 04/23/22 04:19 Myelocytes % 0 % 04/23/22 04:19 Promyelocytes % 0 % 04/23/22 04:19 Blast Cells % 0 % 04/23/22 04:19 Nucleated RBC % Not Reportable 04/23/22 04:19 Seg Neutrophils # 16.2 K/mm3 (1.8-7.7) H 04/27/22 04:00 Seg Neutrophils # Man 8.0 K/mm3 (1.8-7.7) H 04/23/22 04:19 Band Neutrophils # 0.2 K/mm3 04/23/22 04:19 Lymphocytes # (Manual) 1.1 K/mm3 (1.2-5.4) L 04/23/22 04:19 Abs React Lymphs (Man) 0.0 K/mm3 04/23/22 04:19 Monocytes # (Manual) 0.8 K/mm3 (0.0-0.8) 04/23/22 04:19 Eosinophils # (Manual) 0.8 K/mm3 (0.0-0.4) H 04/23/22 04:19 Basophils # (Manual) 0.0 K/mm3 (0.0-0.1) 04/23/22 04:19 Metamyelocytes # 0.0 K/mm3 04/23/22 04:19 Myelocytes # 0.0 K/mm3 04/23/22 04:19 Promyelocytes # 0.0 K/mm3 04/23/22 04:19 Blast Cells # 0.0 K/mm3 04/23/22 04:19 WBC Morphology Not Reportable 04/23/22 04:19 Hypersegmented Neuts Not Reportable 04/23/22 04:19 Hyposegmented Neuts Not Reportable 04/23/22 04:19 Hypogranular Neuts Not Reportable 04/23/22 04:19 Smudge Cells Not Reportable 04/23/22 04:19 Toxic Granulation Not Reportable 04/23/22 04:19 Toxic Vacuolation Not Reportable 04/23/22 04:19 Dohle Bodies Not Reportable 04/23/22 04:19 Pelger-Huet Anomaly Not Reportable 04/23/22 04:19 Regla Rods Not Reportable 04/23/22 04:19 Platelet Estimate Consistent w auto 04/23/22 04:19 Clumped Platelets Not Reportable 04/23/22 04:19 Plt Clumps, EDTA Not Reportable 04/23/22 04:19 Large Platelets Not Reportable 04/23/22 04:19 Giant Platelets Not Reportable 04/23/22 04:19 Platelet Satelliting Not Reportable 04/23/22 04:19 Plt Morphology Comment Not Reportable 04/23/22 04:19 RBC Morphology Not Reportable 04/23/22 04:19 Dimorphic RBCs Not Reportable 04/23/22 04:19 Polychromasia Not Reportable 04/23/22 04:19 Hypochromasia Not Reportable 04/23/22 04:19 Poikilocytosis Not Reportable 04/23/22 04:19 Anisocytosis Not Reportable 04/23/22 04:19 Microcytosis Not Reportable 04/23/22 04:19 Macrocytosis Not Reportable 04/23/22 04:19 Spherocytes Not Reportable 04/23/22 04:19 Pappenheimer Bodies Not Reportable 04/23/22 04:19 Sickle Cells Not Reportable 04/23/22 04:19 Target Cells Not Reportable 04/23/22 04:19 Tear Drop Cells Not Reportable 04/23/22 04:19 Ovalocytes Not Reportable 04/23/22 04:19 Helmet Cells Not Reportable 04/23/22 04:19 [place] Bodies Not Reportable 04/23/22 04:19 [place] Rings Not Reportable 04/23/22 04:19 [place] Cells Not Reportable 04/23/22 04:19 Bite Cells Not Reportable 04/23/22 04:19 Crenated Cell Not Reportable 04/23/22 04:19 Elliptocytes Not Reportable 04/23/22 04:19 Acanthocytes (Spur) Not Reportable 04/23/22 04:19 Rouleaux Not Reportable 04/23/22 04:19 Hemoglobin C Crystals Not Reportable 04/23/22 04:19 Schistocytes Not Reportable 04/23/22 04:19 Malaria parasites Not Reportable 04/23/22 04:19 [place] Bodies Not Reportable 04/23/22 04:19 Hem Pathologist Commnt No 04/23/22 04:19 PT 15.6 Sec. (12.2-14.9) H 04/18/22 Unknown INR 1.08 (0.87-1.13) 04/18/22 Unknown APTT 28.6 Sec. (24.2-36.6) 04/18/22 Unknown Activated Coag Time 179 (74-137) H 04/21/22 12:14 Heparin Anti-Xa Level 0.16 U.I./ml (0.3-0.7) L 04/21/22 04:00 ABG pH 7.408 pH Units (7.350-7.450) 04/25/22 18:00 ABG pCO2 52.6 mm Hg 04/25/22 18:00 ABG pO2 81.4 mm Hg (80.0-90.0) 04/25/22 18:00 ABG HCO3 32.4 mmol/L (20.0-26.0) H 04/25/22 18:00 ABG O2 Saturation 97.0 % (95.0-99.0) 04/25/22 18:00 ABG O2 Content 12.7 (0.0-44) 04/25/22 18:00 ABG Base Excess 6.8 mmol/L (-2.0-3.0) H 04/25/22 18:00 ABG Hemoglobin 9.5 gm/dl (14.0-18.0) L 04/25/22 18:00 ABG Carboxyhemoglobin 1.6 % (0.0-5.0) 04/25/22 18:00 ABG Methemoglobin 0.4 % (0.0-1.5) 04/25/22 18:00 Oxyhemoglobin 95.0 % (95.0-99.0) 04/25/22 18:00 FiO2 35 % 04/25/22 18:00 Sodium 140 mmol/L (137-145) 04/27/22 04:00 Potassium 3.6 mmol/L (3.6-5.0) 04/27/22 04:00 Chloride 100.0 mmol/L (98-107) 04/27/22 04:00 Carbon Dioxide 29 mmol/L (22-30) 04/27/22 04:00 Anion Gap 15 mmol/L 04/27/22 04:00 BUN 23 mg/dL (9-20) H 04/27/22 04:00 Creatinine 1.4 mg/dL (0.8-1.3) H 04/27/22 04:00 Estimated GFR > 60 ml/min 04/27/22 04:00 BUN/Creatinine Ratio 16 % 04/27/22 04:00 Glucose 231 mg/dL (75-100) H 04/27/22 04:00 POC Glucose 224 mg/dL (70-105) H 04/27/22 11:08 Lactic Acid 1.90 mmol/L (0.7-2.0) 04/21/22 04:20 Calcium 8.3 mg/dL (8.4-10.2) L 04/27/22 04:00 Phosphorus 3.60 mg/dL (2.5-4.5) 04/26/22 05:20 Magnesium 2.00 mg/dL (1.7-2.3) 04/26/22 05:20 Total Bilirubin 0.60 mg/dL (0.1-1.2) 04/27/22 04:00 AST 45 units/L (5-40) H 04/27/22 04:00 ALT 53 units/L (7-56) 04/27/22 04:00 Alkaline Phosphatase 180 units/L (35-129) H 04/27/22 04:00 Total Creatine Kinase 973 units/L (55-170) H 04/22/22 04:00 CK-MB (CK-2) 28.5 ng/mL (0.0-4.0) H 04/19/22 07:11 CK-MB (CK-2) Rel Index 0.8 (0-4) 04/19/22 07:11 Troponin T 2.980 ng/mL (0.00-0.029) H* 04/19/22 07:11 Total Protein 6.4 g/dL (6.3-8.2) 04/27/22 04:00 Albumin 2.1 g/dL (3.9-5) L 04/27/22 04:00 Albumin/Globulin Ratio 0.5 % 04/27/22 04:00 Triglycerides 230 mg/dL (2-149) H 04/23/22 04:19 Cholesterol 106 mg/dL (50-199) 04/17/22 19:56 LDL Cholesterol Direct 57 mg/dL (50-130) 04/17/22 19:56 HDL Cholesterol 40 mg/dL (40-59) 04/17/22 19:56 Cholesterol/HDL Ratio 2.65 % 04/17/22 19:56 Procalcitonin 44.70 ng/mL (<0.15) 04/22/22 04:32 Urine Color Yellow (Yellow) 04/19/22 02:08 Urine Turbidity Slightly cloudy (Clear) 04/19/22 02:08 Urine pH 5.0 (5.0-7.0) 04/19/22 02:08 Ur Specific Left Hand 1.005 (1.003-1.030) 04/19/22 02:08 Urine Protein 30 mg/dl mg/dL (Negative) 04/19/22 02:08 Urine Glucose (UA) Negative mg/dL (Negative) 04/19/22 02:08 Urine Ketones Negative mg/dL (Negative) 04/19/22 02:08 Urine Blood Large (Negative) A 04/19/22 02:08 Urine Nitrite Negative (Negative) 04/19/22 02:08 Ur Reducing Substances Not Reportable 04/19/22 02:08 Urine Bilirubin Negative (Negative) 04/19/22 02:08 Urine Ictotest Not Reportable 04/19/22 02:08 Urine Urobilinogen 0.2 mg/dL (<2.0) 04/19/22 02:08 Ur Leukocyte Esterase Negative (Negative) 04/19/22 02:08 Urine WBC (Auto) 88.0 /HPF (0.0-6.0) H 04/19/22 02:08 Urine RBC (Auto) 60.0 /HPF (0.0-6.0) 04/19/22 02:08 Urine Bacteria (Auto) 2+ /HPF (Negative) 04/19/22 02:08 Urine WBC Clumps 3+ /HPF 04/19/22 02:08 RBC Casts 34 /LPF 04/19/22 02:08 Urine Mucus 1+ /HPF 04/19/22 02:08 Urine Yeast (Budding) 3+ /HPF 04/19/22 02:08 Urine Eosinophils None seen (None Seen) 04/19/22 02:08 Urine Creatinine 90.9 mg/dL (0.1-20.0) H 04/19/22 02:08 Urine Sodium 54 mmol/L 04/19/22 02:08 Blood Type A POSITIVE 04/21/22 04:37 Antibody Screen Negative 04/21/22 04:37 Microbiology: Microbiology 04/26/22 08:57 Peripheral/Venous Blood Culture - Preliminary NO GROWTH AFTER 24 HOURS 04/26/22 05:20 Peripheral/Venous Blood Culture - Preliminary NO GROWTH AFTER 24 HOURS Penn/IV: Voiding Method Indwelling Catheter Active Medications - Current Medications Current Medications: Generic Name Dose Route Start Last Admin Trade Name Freq PRN Reason Stop Dose Admin Acetaminophen 650 mg 04/17/22 19:48 04/27/22 11:58 Acetaminophen 325 Mg Tab PO 650 mg Q6H PRN Administration Pain MILD(1-3)/Fever >100.5/CHE Albuterol 2.5 mg 04/17/22 19:48 Albuterol 2.5 Mg/3 Ml Nebu IH Q3HRT PRN Shortness Of Breath Amiodarone HCl 400 mg 04/26/22 22:00 04/27/22 10:09 Amiodarone 200 Mg Tab PO 400 mg BID FLACO Administration Aspirin 81 mg 04/20/22 12:00 04/27/22 10:08 Aspirin 81 Mg Tab Chew FEEDTUBE 81 mg QDAY FLACO Administration Atorvastatin Calcium 20 mg 04/20/22 22:00 04/26/22 21:05 Atorvastatin 20 Mg Tab FEEDTUBE 20 mg QHS FLACO Administration Dextrose 0 ml 04/17/22 23:46 Dextrose 50% In Water (25gm) 50 Ml Syringe IV Q30MIN PRN Hypoglycemia Protocol Diphenhydramine HCl 25 mg 04/26/22 10:00 04/27/22 10:08 Diphenhydramine 50 Mg/Ml Vial IV 04/28/22 09:59 25 mg Q6H FLACO Administration Docusate Sodium 100 mg 04/27/22 11:00 04/27/22 12:32 Docusate Sodium 100 Mg/10 Ml Oral Liqd FEEDTUBE 100 mg BID FLACO Administration Famotidine 20 mg 04/27/22 10:00 04/27/22 10:09 Famotidine 20 Mg Tab FEEDTUBE 20 mg BID FLACO Administration Fentanyl 50 mcg 04/17/22 20:22 04/18/22 03:52 Fentanyl 100 Mcg/2 Ml Inj IV 50 mcg Q10MIN PRN Administration ANALGESIA Heparin Sodium (Porcine) 5,000 unit 04/21/22 22:00 04/27/22 10:09 Heparin 5,000 Unit/1 Ml Vial SUB-Q 5,000 unit Q12HR FLACO Administration Hydrophilic Ointment 1 applic 04/18/22 06:02 04/26/22 20:29 Lip Therapy Vaseline TP 1 applic Q2HR PRN Administration Dry Lips Fentanyl Citrate 2,000 mcg in 100 mls @ 5.443 mls/hr 04/17/22 21:00 04/27/22 09:21 Fentanyl Drip Premix IV 0 mcg/kg/hr TITR FLACO 0 mls/hr Titration Protocol 1 MCG/KG/HR Propofol 1,000 mg in 100 mls @ 3.456 mls/hr 04/18/22 07:00 04/27/22 12:29 Diprivan 10 Mg/Ml IV 15 mcg/kg/min TITR FLACO 10.368 mls/hr Administration Protocol 5 MCG/KG/MIN Dextrose 1,000 mls @ 50 mls/hr 04/25/22 14:00 04/27/22 10:52 D5w IV 100 mls/hr DIRECT FLACO Administration Insulin Glargine 50 units 04/26/22 22:00 04/26/22 21:05 Insulin Glargine 100 Units/Ml SUB-Q 50 units QHS FLACO Administration Insulin Human Lispro 0 unit 04/18/22 00:00 04/27/22 11:56 Insulin Lispro 100 Unit/Ml SUB-Q 4 unit Q6HR FLACO Administration Protocol Insulin Human Lispro 8 unit 04/26/22 12:00 04/27/22 11:57 Insulin Lispro 100 Unit/Ml SUB-Q 8 unit Q6HR FLACO Administration Multi-Ingred Cream/Lotion/Oil/Oint 1 applic 04/18/22 06:02 Mineral Oil/Petrolatum, White Ophth Oint 3.5 Gm OU Q4HR PRN Dry Eye(s) Oxycodone/Acetaminophen 1 tab 04/22/22 11:05 Oxycodone /Acetaminophen 5-325mg Tab FEEDTUBE Q6H PRN Pain, Moderate (4-6) Senna/Docusate Sodium 1 tab 04/18/22 10:00 04/27/22 10:08 Sennosides/Docusate Sodium 8.6/50 Mg Tab FEEDTUBE 1 tab BID FLACO Administration Sodium Chloride 10 ml 04/17/22 22:00 04/27/22 10:09 Sodium Chloride 0.9% 10 Ml Flush Syringe IV 10 ml BID FLACO Administration Sodium Chloride 10 ml 04/17/22 19:48 Sodium Chloride 0.9% 10 Ml Flush Syringe IV PRN PRN LINE FLUSH Nutrition/Malnutrition Assess - Dietary Evaluation Nutrition/Malnutrition Findings: Nutrition Notes Start: 04/18/22 08:52 Freq: Status: Active Protocol: Document 04/22/22 10:36 ROMELIA (Rec: 04/22/22 10:49 ROMELIA [email or web address]) Nutrition Notes Initial or Follow up Brief Note Current Diagnosis Acute Kidney Injury,Diabetes, Sepsis,Hypertension, Respiratory Failure Other Pertinent Diagnosis s/p PEA w/ROSC, HFrEF, Pneumonia, Metabolic Acidosis, Cardiogenic Shock, .. Current Diet TF-Nepro w/CARBSTEADY @ 35 ml/ hr (from D 04/21). Height 5 ft 9 in Weight 115.2 kg [place] Body Weight (kg) 72.72 BMI 37.5 Weight change and time frame No body weight change reported in 4 days. Weight Status Obese Subjective/Other Information RD consult for TF tolerance/ continuation assessment. TF continues as prescribed, no further information available at the time. Pt continues on Mechanical Ventilation, O2 saturation @ 95%, according to Physical Assessment History notes. Percent of energy/protein needs met: Prescribed TF-Nepro w/ CARBSTEADY @ 35 ml/hr provides for energy/protein needs (1, 500 Kcal/68 g) during LOS, 77% Kcal; 90% AA. Including 365 Kcal from Propofol: 95% Kcal; 90% AA. #2 Nutrition Diagnosis Altered nutrition-related laboratory values Comments: Prescribed TF-Nepro w/ CARBSTEADY @ 35 ml/hr provides for energy/protein needs (1, 500 Kcal/68 g) during LOS, 77% Kcal; 90% AA. Including 365 Kcal from Propofol: 95% Kcal; 90% AA. Diagnosis Progress(for reassessment Resolved documentation) #1 Nutrition Diagnosis Inadequate oral intake Diagnosis Progress(for reassessment Continues documentation) Is patient on ventilator? Yes Is Patient Ambulatory and/or Out of Bed No REE-([facility]-confined to bed) [phone] Kcal/Kg value to use for calculation 17 Approximate Energy Requirements Using 1958 kcal/Kg Calculation Used for Recommendations Kcal/kg Additional Notes Protein: 0.8-1.2 g/Kg AdjBW; 75-113 g/day. Fluids: 1 ml/Kcal, or as per MD. Nutrition Intervention Nutrition Support: Continue TF-Nepro w/CARBSTEADY @ 35 ml/hr. Flush: 220 ml water Q 4 hr, or as per MD. Kcal 1,500 Protein (gm) 68 Carbohydrates (gm) 134 Fat (gm) 80 Fluid (mL) 606 Fiber (gm) 11 % RDI: 77% Kcal; 90% AA. Goal #1 Provide at least 75% of energy /protein needs through Enteral Feeding during LOS. Follow-Up By: 04/29/22 Additional Comments Continue monitoring TF tolerance, ventilation status, vasopressors, and BM. <LISA TOWNSEND - Last Filed: 05/04/22 11:24> History Interval history: I saw and evaluated the patient. I agree with the findings and the plan of care as documented in the Nurse Practitioner's~note, with the following corrections and additions. Hospitalist Physical - Constitutional Vitals: Temp Pulse Resp BP Pulse Ox 98.7 F 58 L 31 H 144/80 98 05/04/22 07:13 05/04/22 10:01 05/04/22 10:01 05/04/22 10:01 05/04/22 10:01 HEART Score - HEART Score Troponin: Troponin T 2.980 ng/mL (0.00-0.029) H* 04/19/22 07:11 Results - Labs CBC & Chem 7: 05/03/22 04:46 05/04/22 03:48 Labs: Laboratory Last Values WBC 16.4 K/mm3 (4.5-11.0) H 05/03/22 04:46 RBC 3.08 M/mm3 (3.65-5.03) L 05/03/22 04:46 Hgb 8.8 gm/dl (11.8-15.2) L 05/03/22 04:46 Hct 27.7 % (35.5-45.6) L 05/03/22 04:46 MCV 90 fl (84-94) 05/03/22 04:46 MCH 29 pg (28-32) 05/03/22 04:46 MCHC 32 % (32-34) 05/03/22 04:46 RDW 15.0 % (13.2-15.2) 05/03/22 04:46 Plt Count 596 K/mm3 (140-440) H 05/03/22 04:46 Lymph % (Auto) 5.7 % (13.4-35.0) L 04/29/22 04:20 Walker % (Auto) 7.8 % (0.0-7.3) H 04/29/22 04:20 Eos % (Auto) 3.9 % (0.0-4.3) 04/29/22 04:20 Baso % (Auto) 0.6 % (0.0-1.8) 04/29/22 04:20 Lymph # (Auto) 1.1 K/mm3 (1.2-5.4) L 04/29/22 04:20 Walker # (Auto) 1.5 K/mm3 (0.0-0.8) H 04/29/22 04:20 Eos # (Auto) 0.8 K/mm3 (0.0-0.4) H 04/29/22 04:20 Baso # (Auto) 0.1 K/mm3 (0.0-0.1) 04/29/22 04:20 Add Manual Diff Complete 04/23/22 04:19 Total Counted 100 04/23/22 04:19 Seg Neutrophils % 82.0 % (40.0-70.0) H 04/29/22 04:20 Seg Neuts % (Manual) 74.0 % (40.0-70.0) H 04/23/22 04:19 Band Neutrophils % 2.0 % 04/23/22 04:19 Lymphocytes % (Manual) 10.0 % (13.4-35.0) L 04/23/22 04:19 Reactive Lymphs % (Man) 0 % 04/23/22 04:19 Monocytes % (Manual) 7.0 % (0.0-7.3) 04/23/22 04:19 Eosinophils % (Manual) 7.0 % (0.0-4.3) H 04/23/22 04:19 Basophils % (Manual) 0 % (0.0-1.8) 04/23/22 04:19 Metamyelocytes % 0 % 04/23/22 04:19 Myelocytes % 0 % 04/23/22 04:19 Promyelocytes % 0 % 04/23/22 04:19 Blast Cells % 0 % 04/23/22 04:19 Nucleated RBC % Not Reportable 04/23/22 04:19 Seg Neutrophils # 16.3 K/mm3 (1.8-7.7) H 04/29/22 04:20 Seg Neutrophils # Man 8.0 K/mm3 (1.8-7.7) H 04/23/22 04:19 Band Neutrophils # 0.2 K/mm3 04/23/22 04:19 Lymphocytes # (Manual) 1.1 K/mm3 (1.2-5.4) L 04/23/22 04:19 Abs React Lymphs (Man) 0.0 K/mm3 04/23/22 04:19 Monocytes # (Manual) 0.8 K/mm3 (0.0-0.8) 04/23/22 04:19 Eosinophils # (Manual) 0.8 K/mm3 (0.0-0.4) H 04/23/22 04:19 Basophils # (Manual) 0.0 K/mm3 (0.0-0.1) 04/23/22 04:19 Metamyelocytes # 0.0 K/mm3 04/23/22 04:19 Myelocytes # 0.0 K/mm3 04/23/22 04:19 Promyelocytes # 0.0 K/mm3 04/23/22 04:19 Blast Cells # 0.0 K/mm3 04/23/22 04:19 WBC Morphology Not Reportable 04/23/22 04:19 Hypersegmented Neuts Not Reportable 04/23/22 04:19 Hyposegmented Neuts Not Reportable 04/23/22 04:19 Hypogranular Neuts Not Reportable 04/23/22 04:19 Smudge Cells Not Reportable 04/23/22 04:19 Toxic Granulation Not Reportable 04/23/22 04:19 Toxic Vacuolation Not Reportable 04/23/22 04:19 Dohle Bodies Not Reportable 04/23/22 04:19 Pelger-Huet Anomaly Not Reportable 04/23/22 04:19 Regla Rods Not Reportable 04/23/22 04:19 Platelet Estimate Consistent w auto 04/23/22 04:19 Clumped Platelets Not Reportable 04/23/22 04:19 Plt Clumps, EDTA Not Reportable 04/23/22 04:19 Large Platelets Not Reportable 04/23/22 04:19 Giant Platelets Not Reportable 04/23/22 04:19 Platelet Satelliting Not Reportable 04/23/22 04:19 Plt Morphology Comment Not Reportable 04/23/22 04:19 RBC Morphology Not Reportable 04/23/22 04:19 Dimorphic RBCs Not Reportable 04/23/22 04:19 Polychromasia Not Reportable 04/23/22 04:19 Hypochromasia Not Reportable 04/23/22 04:19 Poikilocytosis Not Reportable 04/23/22 04:19 Anisocytosis Not Reportable 04/23/22 04:19 Microcytosis Not Reportable 04/23/22 04:19 Macrocytosis Not Reportable 04/23/22 04:19 Spherocytes Not Reportable 04/23/22 04:19 Pappenheimer Bodies Not Reportable 04/23/22 04:19 Sickle Cells Not Reportable 04/23/22 04:19 Target Cells Not Reportable 04/23/22 04:19 Tear Drop Cells Not Reportable 04/23/22 04:19 Ovalocytes Not Reportable 04/23/22 04:19 Helmet Cells Not Reportable 04/23/22 04:19 [place] Bodies Not Reportable 04/23/22 04:19 [place] Rings Not Reportable 04/23/22 04:19 [place] Cells Not Reportable 04/23/22 04:19 Bite Cells Not Reportable 04/23/22 04:19 Crenated Cell Not Reportable 04/23/22 04:19 Elliptocytes Not Reportable 04/23/22 04:19 Acanthocytes (Spur) Not Reportable 04/23/22 04:19 Rouleaux Not Reportable 04/23/22 04:19 Hemoglobin C Crystals Not Reportable 04/23/22 04:19 Schistocytes Not Reportable 04/23/22 04:19 Malaria parasites Not Reportable 04/23/22 04:19 [place] Bodies Not Reportable 04/23/22 04:19 Hem Pathologist Commnt No 04/23/22 04:19 PT 15.6 Sec. (12.2-14.9) H 04/18/22 Unknown INR 1.08 (0.87-1.13) 04/18/22 Unknown APTT 28.6 Sec. (24.2-36.6) 04/18/22 Unknown Activated Coag Time 179 (74-137) H 04/21/22 12:14 Heparin Anti-Xa Level 0.16 U.I./ml (0.3-0.7) L 04/21/22 04:00 ABG pH 7.442 pH Units (7.350-7.450) 05/02/22 04:45 ABG pCO2 37.8 mm Hg 05/02/22 04:45 ABG pO2 83.1 mm Hg (80.0-90.0) 05/02/22 04:45 ABG HCO3 25.2 mmol/L (20.0-26.0) 05/02/22 04:45 ABG O2 Saturation 97.0 % (95.0-99.0) 05/02/22 04:45 ABG O2 Content 12.6 (0.0-44) 05/02/22 04:45 ABG Base Excess 1.1 mmol/L (-2.0-3.0) 05/02/22 04:45 ABG Hemoglobin 9.3 gm/dl (14.0-18.0) L 05/02/22 04:45 ABG Carboxyhemoglobin 1.4 % (0.0-5.0) 05/02/22 04:45 ABG Methemoglobin 0.4 % (0.0-1.5) 05/02/22 04:45 Oxyhemoglobin 95.2 % (95.0-99.0) 05/02/22 04:45 FiO2 30 % 05/02/22 04:45 Sodium 141 mmol/L (137-145) 05/04/22 03:48 Potassium 4.5 mmol/L (3.6-5.0) D 05/04/22 03:48 Chloride 110.5 mmol/L (98-107) H 05/04/22 03:48 Carbon Dioxide 22 mmol/L (22-30) 05/04/22 03:48 Anion Gap 13 mmol/L 05/04/22 03:48 BUN 30 mg/dL (9-20) H 05/04/22 03:48 Creatinine 1.0 mg/dL (0.8-1.3) 05/04/22 03:48 Estimated GFR > 60 ml/min 05/04/22 03:48 BUN/Creatinine Ratio 30 % 05/04/22 03:48 Glucose 123 mg/dL (75-100) H 05/04/22 03:48 POC Glucose 117 mg/dL (70-105) H 05/04/22 05:03 Lactic Acid 1.90 mmol/L (0.7-2.0) 04/21/22 04:20 Calcium 8.1 mg/dL (8.4-10.2) L 05/04/22 03:48 Phosphorus 3.20 mg/dL (2.5-4.5) 05/03/22 04:46 Magnesium 2.10 mg/dL (1.7-2.3) 05/03/22 04:46 Total Bilirubin 0.40 mg/dL (0.1-1.2) 05/04/22 03:48 Direct Bilirubin 0.3 mg/dL (0-0.2) H 04/30/22 04:25 Indirect Bilirubin 0.1 mg/dL 04/30/22 04:25 AST 88 units/L (5-40) H 05/04/22 03:48 ALT 122 units/L (7-56) H 05/04/22 03:48 Alkaline Phosphatase 171 units/L (35-129) H 05/04/22 03:48 Total Creatine Kinase 61 units/L (55-170) 04/29/22 04:20 CK-MB (CK-2) 28.5 ng/mL (0.0-4.0) H 04/19/22 07:11 CK-MB (CK-2) Rel Index 0.8 (0-4) 04/19/22 07:11 Troponin T 2.980 ng/mL (0.00-0.029) H* 04/19/22 07:11 C-Reactive Protein 15.30 mg/dL (0.00-1.30) H 04/28/22 08:20 Total Protein 7.2 g/dL (6.3-8.2) 05/04/22 03:48 Albumin 2.2 g/dL (3.9-5) L 05/04/22 03:48 Albumin/Globulin Ratio 0.4 % 05/04/22 03:48 Triglycerides 214 mg/dL (2-149) H 05/01/22 04:00 Cholesterol 106 mg/dL (50-199) 04/17/22 19:56 LDL Cholesterol Direct 57 mg/dL (50-130) 04/17/22 19:56 HDL Cholesterol 40 mg/dL (40-59) 04/17/22 19:56 Cholesterol/HDL Ratio 2.65 % 04/17/22 19:56 Procalcitonin 2.90 ng/mL (<0.15) 04/28/22 Unknown Urine Color Straw (Yellow) 04/28/22 08:35 Urine Turbidity Clear (Clear) 04/28/22 08:35 Urine pH 6.0 (5.0-7.0) 04/28/22 08:35 Ur Specific Left Hand 1.000 (1.003-1.030) L 04/28/22 08:35 Urine Protein 300 mg/dl mg/dL (Negative) 04/28/22 08:35 Urine Glucose (UA) Negative mg/dL (Negative) 04/28/22 08:35 Urine Ketones Negative mg/dL (Negative) 04/28/22 08:35 Urine Blood 3+ (Negative) 04/28/22 08:35 Urine Nitrite Negative (Negative) 04/28/22 08:35 Ur Reducing Substances Not Reportable 04/28/22 08:35 Urine Bilirubin Negative (Negative) 04/28/22 08:35 Urine Ictotest Not Reportable 04/28/22 08:35 Urine Urobilinogen < 2.0 mg/dL (<2.0) 04/28/22 08:35 Ur Leukocyte Esterase Small (Negative) 04/28/22 08:35 Urine WBC (Auto) 21.0 /HPF (0.0-6.0) H 04/28/22 08:35 Urine RBC (Auto) 9.0 /HPF (0.0-6.0) 04/28/22 08:35 Urine Bacteria (Auto) 2+ /HPF (Negative) 04/19/22 02:08 Urine WBC Clumps 3+ /HPF 04/19/22 02:08 RBC Casts 34 /LPF 04/19/22 02:08 Urine Mucus Few /HPF 04/28/22 08:35 Urine Yeast (Budding) 3+ /HPF 04/19/22 02:08 Urine Eosinophils None seen (None Seen) 04/19/22 02:08 Urine Creatinine 90.9 mg/dL (0.1-20.0) H 04/19/22 02:08 Urine Sodium 54 mmol/L 04/19/22 02:08 Digoxin 0.7 ng/mL (0.9-2.0) L 05/03/22 04:46 Coronavirus (PCR) Positive (Negative) A 04/29/22 09:38 Influenza A (RT-PCR) Negative (Negative) 04/29/22 11:44 Influenza B (RT-PCR) Negative (Negative) 04/29/22 11:44 Blood Type A POSITIVE 04/21/22 04:37 Antibody Screen Negative 04/21/22 04:37 Microbiology: Microbiology 04/28/22 07:26 Tracheal Aspirate Sputum Culture - Final Penn/IV: Voiding Method Urinal Active Medications - Current Medications Current Medications: Generic Name Dose Route Start Last Admin Trade Name Freq PRN Reason Stop Dose Admin Acetaminophen 650 mg 04/17/22 19:48 04/28/22 21:38 Acetaminophen 325 Mg Tab PO 650 mg Q6H PRN Administration Pain MILD(1-3)/Fever >100.5/CHE Albuterol 2.5 mg 04/17/22 19:48 Albuterol 2.5 Mg/3 Ml Nebu IH Q3HRT PRN Shortness Of Breath Ascorbic Acid 500 mg 05/04/22 22:00 Ascorbic Acid 500 Mg Tab PO 05/10/22 10:01 BID [facility] Aspirin 81 mg 05/05/22 10:00 Aspirin 81 Mg Tab Chew PO QDAY [facility] Atorvastatin Calcium 20 mg 05/04/22 22:00 Atorvastatin 20 Mg Tab PO QHS [facility] Dexamethasone 8 mg 04/30/22 10:00 05/04/22 09:27 Dexamethasone 4 Mg/Ml Vial IV 05/09/22 10:01 8 mg DAILY [facility] Administration Dextrose 0 ml 04/17/22 23:46 Dextrose 50% In Water (25gm) 50 Ml Syringe IV Q30MIN PRN Hypoglycemia Protocol Digoxin 0.125 mg 05/04/22 17:00 Digoxin 0.125 Mg Tab PO DAILY@1700 [facility] Docusate Sodium 100 mg 05/04/22 22:00 Docusate Sodium 100 Mg/10 Ml Oral Liqd PO BID [facility] Doxazosin Mesylate 1 mg 05/04/22 22:00 Doxazosin 1 Mg Tab PO QHS [facility] Enoxaparin Sodium 120 mg 05/02/22 10:00 05/04/22 09:26 Enoxaparin 120 Mg/0.8 Ml Inj SUB-Q 120 mg Q12HR [facility] Administration Protocol Famotidine 20 mg 05/04/22 22:00 Famotidine 20 Mg Tab PO BID [facility] Fentanyl 50 mcg 04/17/22 20:22 04/30/22 22:41 Fentanyl 100 Mcg/2 Ml Inj IV 50 mcg Q10MIN PRN Administration ANALGESIA Furosemide 20 mg 05/04/22 18:00 Furosemide 20 Mg Tab PO 0600,1800 [facility] Hydrophilic Ointment 1 applic 04/18/22 06:02 04/26/22 20:29 Lip Therapy Vaseline TP 1 applic Q2HR PRN Administration Dry Lips Cefepime HCl 2 gm in 100 mls @ 200 mls/hr 04/28/22 08:00 05/04/22 09:26 Cefepime/Ns 2 Gm/100 Ml IV 200 mls/hr Q8H [facility] Administration Protocol Remdesivir 100 mg/ Sodium 250 mls @ 500 mls/hr 05/01/22 14:00 05/03/22 15:45 Chloride IV 05/04/22 14:29 500 mls/hr Q24HR@1400 [facility] Administration Insulin Glargine 35 units 05/03/22 22:00 05/03/22 21:01 Insulin Glargine 100 Units/Ml SUB-Q 35 units QHS [facility] Administration Insulin Human Lispro 10 unit 05/04/22 11:30 Insulin Lispro 100 Unit/Ml SUB-Q ACHS [facility] Insulin Human Lispro 0 unit 05/04/22 11:30 Insulin Lispro 100 Unit/Ml SUB-Q ACHS [facility] Protocol Metoprolol Tartrate 12.5 mg 05/04/22 10:00 Metoprolol Tartrate 25 Mg Tab PO BID [facility] Multi-Ingred Cream/Lotion/Oil/Oint 1 applic 04/18/22 06:02 Mineral Oil/Petrolatum, White Ophth Oint 3.5 Gm OU Q4HR PRN Dry Eye(s) Oxycodone/Acetaminophen 1 tab 05/04/22 10:00 Oxycodone /Acetaminophen 5-325mg Tab PO Q6H PRN Pain, Moderate (4-6) Senna/Docusate Sodium 2 tab 05/04/22 10:00 05/04/22 09:46 Sennosides/Docusate Sodium 8.6/50 Mg Tab PO Not Given BID [facility] Sodium Chloride 10 ml 04/17/22 22:00 05/04/22 09:28 Sodium Chloride 0.9% 10 Ml Flush Syringe IV 10 ml BID [facility] Administration Sodium Chloride 10 ml 04/17/22 19:48 Sodium Chloride 0.9% 10 Ml Flush Syringe IV PRN PRN LINE FLUSH Sodium Chloride 50 ml 04/30/22 09:00 05/03/22 15:45 Sodium Chloride 0.9% 50 Ml Ivpb IV 05/04/22 14:01 50 ml Q24HR@1400 [facility] Administration Zinc Sulfate 220 mg 04/30/22 22:00 05/04/22 09:27 Zinc Sulfate 220 Mg Cap PO 05/10/22 10:01 220 mg BID [facility] Administration Nutrition/Malnutrition Assess - Dietary Evaluation Nutrition/Malnutrition Findings: Nutrition Notes Start: 04/18/22 08:52 Freq: Status: Active Protocol: Document 04/29/22 11:29 ROMELIA (Rec: 04/29/22 11:55 ROMELIA [id number]) Nutrition Notes Initial or Follow up Reassessment Current Diagnosis Acute Kidney Injury,Diabetes, Sepsis,Hypertension, Respiratory Failure Other Pertinent Diagnosis s/p PEA w/ROSC, HFrEF, Pneumonia, Transaminitis, Rabdomyolisis, .. Current Diet TF-Nepro w/CARBSTEADY @ 35 ml/ hr (from D 04/21). Labs/Tests 04/29: BUN 30, Crea 1.6, Glu 236, Ca 8.1. Pertinent Medications 04/29: Humalog 4U, Propofol @ 3.456 ml/hr (91 Kcal), mothers nutritionally unremarkable. Height 5 ft 9 in Weight 115.2 kg [place] Body Weight (kg) 72.72 BMI 37.5 Weight change and time frame No body weight change reported in 11 days. Weight Status Obese Subjective/Other Information RD consult for routine F/U on TF tolerance/continuation assessment. TF continues as prescribed, no further information available at the time. Pt continues on Mechanical Ventilation, O2 saturation @ 100%, according to Physical Assessment History notes. Pt remains incontinent, according to Physical Assessment History notes. Pt presents blisters on the groin and on hand, according to Physical Assessment History notes. Percent of energy/protein needs met: Prescribed TF-Nepro w/ CARBSTEADY @ 35 ml/hr provides for energy/protein needs (1, 500 Kcal/68 g) during LOS, 77% Kcal; 90% AA. Including 91 Kcal from Propofol: 81% Kcal; 90% AA. Burn Absent Trauma Absent GI Symptoms None Food Allergy No Skin Integrity/Comment Blisters on the groin and on hand. Current % PO Other Minimum of two criteria No Fluid Accumulation N/A Reduced Artists' Model Strength N/A (non-severe) Protein-Calorie Malnutrition N\A #1 Nutrition Diagnosis Inadequate oral intake Diagnosis Progress(for reassessment Continues documentation) Is patient on ventilator? Yes Is Patient Ambulatory and/or Out of Bed No REE-([place]-confined to bed) 2323.608 Kcal/Kg value to use for calculation 17 Approximate Energy Requirements Using 1958 kcal/Kg Calculation Used for Recommendations Kcal/kg Additional Notes Protein: 0.8-1.2 g/Kg AdjBW; 75-113 g/day. Fluids: 1 ml/Kcal, or as per MD. Nutrition Intervention Nutrition Support: Continue TF-Nepro w/CARBSTEADY @ 35 ml/hr. Flush: 220 ml water Q 4 hr, or as per MD. Kcal 1,500 Protein (gm) 68 Carbohydrates (gm) 134 Fat (gm) 80 Fluid (mL) 606 Fiber (gm) 11 % RDI: 77% Kcal; 90% AA. Goal #1 Provide at least 75% of energy /protein needs through Enteral Feeding during LOS. Follow-Up By: 05/06/22 Additional Comments Continue monitoring TF tolerance, ventilation status, vasopressors, and BM.
[2022-04-27] MEDS: INSULIN GLARGINE 100 UNITS/ML SUB-Q SCH (21:19)
[2022-04-28] MEDS: INSULIN LISPRO 100 UNIT/ML SUB-Q SCH ×8 (00:13→21:09)
[2022-04-28] MEDS: FREE WATER PO SCH ×6 (01:03→21:00)
[2022-04-28] MEDS: diphenhydrAMINE 50 MG/ML VIAL IV SCH (03:14)
[2022-04-28] MEDS: ACETAMINOPHEN 325 MG TAB PO PRN ×3 (05:29→21:38)
[2022-04-28 05:53] LABS: ABG Base Excess 4.3 mmol/L (-2.0-3.0); ABG HCO3 27.8 mmol/L (20.0-26.0); ABG Methemoglobin 0.4 % (0.0-1.5); ABG Oxygen Saturation 96.6 % (95.0-99.0); ABG PCO2 37.5 mm Hg; ABG PH 7.489 pH Units (7.350-7.450); ABG PO2 72.5 mm Hg (80.0-90.0)
[2022-04-28 06:20] LABS: BUN/Creatinine Ratio 16; Blood Urea Nitrogen 22 mg/dL (9-20); Calcium 8.2 mg/dL (8.4-10.2); Hemolysis Index 6
[2022-04-28 06:43] LABS: Hematocrit 29.9 % (35.5-45.6); Hemoglobin 9.4 gm/dl (11.8-15.2); Mean Corpuscular HGB Conc 32 % (32-34); Mean Corpuscular Volume 90 fl (84-94); Platelet Count 436 K/mm3 (140-440); Red Blood Count 3.32 M/mm3 (3.65-5.03); Red Cell Distribution Width 14.9 % (13.2-15.2)
[2022-04-28] MEDS ORDERED: VANCOMYCIN PHARMACY TO DOSE IV SCH (08:00)
[2022-04-28] MEDS ORDERED: MAGNESIUM SULFATE 2 GM/50 ML BAG IV SCH (08:00)
[2022-04-28] MEDS ORDERED: CEFEPIME/NS 2 GM/100 ML 2 GM/100 ML BAG IV SCH (08:00)
[2022-04-28] MEDS: CEFEPIME/NS 2 GM/100 ML 2 GM/100 ML BAG IV SCH ×2 (08:42→16:48)
--- NOTE | 2022-04-28 08:43 | Progress Note ---
Assessment and Plan This is a 62 year old male with OHS, HTN, DM, metabolic syndrome, s/p vfib cardiac arrest, Septic shock, aspiration pneumonia, transaminitis, VINCENT with acute metabolic encephalopathy Acute hypoxemic respiratory failure on MVS s/p cardiac arrest Altered mental status Aspiration pneumonia Shock (Cardiogenic +/- Septic) Severe Metabolic Acidosis Morbid Obesity BMI 37.5 Diabetes type II Obesity hypoventilation syndrome COVID positive Plan fro daily SAT and SBT as tolerated Empiric antibiotics started for fevers and leukocytosis- consulted ID service The fevers are high grade more suggestive of a viral process especially in the setting of repeatedly negative cultures. r/o COVID and possible viral respiratory infections - continue to titrate supplemental oxygen to keep SpO2 89-92% - VAP bundle addressed, aspiration precautions - continue lung protective strategies - continue bronchodilators with pulmonary hygiene per RT - wean per pulmonary driven protocols otherwise - avoid nephrotoxins, renally dose all medications - continue accuchecks with glycemic control per SSI (While critically ill target blood glucose of 140-180 mg/dL; avoid hypoglycemia) - continue to avoid benzodiazepines, reduce the possibility of delirium - prn analgesia per CPOT score - Maintenance of sleep-wake cycle, avoid delirium - continue enteral nutritional support at goal rate as tolerated - Stress ulcer and VTE prophylaxis - continue mobility per facility protocol, off loading and frequent turning for pressure ulcer prevention - Monitor hemodynamics closely - continue other care per attending / other consultants - discharge planning ongoing concurrently COVID SPECIFIC INTERVENTIONS - COVID-19 test result positive CONDITION: CRITICAL PROGNOSIS: GUARDED CODE STATUS: FULL CODE The high probability of a clinically significant, sudden or life-threatening deterioration of the [respiratory, cardiovascular,] system(s) required my full and direct attention, intervention and personal management. The aggregate cr itical care time was [35] minutes without overlap. Time includes spent on; [x] Data Review and interpretation [x] Patient assessment and monitoring of vital signs [x] Documentation [x] Medication orders and management Subjective Date of service: 04/28/22 Principal diagnosis: AHRF; AMS; Pneumonia; Shock; DM II; Severe Metabolic Acidosis Interval history: Patient is seen today for: Acute hypoxemic respiratory failure; AMS; Aspiration pneumonia; Shock (Cardiogenic +/- Septic); DM II; Severe Metabolic Acidosis Seen and examined at bedside; 24hour events reviewed; nursing and respiratory care staff consulted; no adverse overnight events reported to me; resting in bed; remains on MVS; PEEP +8/35%, obeying simple commands; no emesis or overt aspiration; Persistent fevers overnight with leukocytosis, repeat blood culture with no growth. Empiric IV Abx, Cefepime and vancomycin initiated. Manjinder was reinserted overnight due to retention He has a rash, leukocytosis is eosinophilic predominant Objective Vital Signs - 12hr 04/27/22 04/27/22 04/27/22 20:46 21:00 21:16 Temperature Pulse Rate 92 H 91 H 82 Pulse Rate [ From Monitor] Respiratory 17 14 12 Rate Blood Pressure O2 Sat by Pulse 98 98 97 Oximetry 04/27/22 04/27/22 04/27/22 21:30 21:46 22:00 Temperature Pulse Rate 98 H 77 83 Pulse Rate [ From Monitor] Respiratory 20 15 20 Rate Blood Pressure O2 Sat by Pulse 92 99 100 Oximetry 04/27/22 04/27/22 04/27/22 22:16 22:30 22:39 Temperature Pulse Rate 89 86 89 Pulse Rate [ From Monitor] Respiratory 13 14 Rate Blood Pressure 124/66 O2 Sat by Pulse 100 97 99 Oximetry 04/27/22 04/27/22 04/27/22 22:46 23:00 23:04 Temperature Pulse Rate 89 88 87 Pulse Rate [ 90 From Monitor] Respiratory 14 15 19 Rate Blood Pressure O2 Sat by Pulse 98 100 99 Oximetry 04/27/22 04/27/22 04/27/22 23:05 23:16 23:30 Temperature Pulse Rate 82 94 H 95 H Pulse Rate [ From Monitor] Respiratory 22 14 Rate Blood Pressure O2 Sat by Pulse 92 100 Oximetry 04/27/22 04/28/22 04/28/22 23:46 00:00 00:16 Temperature 98.6 F Pulse Rate 87 86 86 Pulse Rate [ From Monitor] Respiratory 18 21 14 Rate Blood Pressure O2 Sat by Pulse 100 100 99 Oximetry 04/28/22 04/28/22 04/28/22 00:30 00:46 01:00 Temperature Pulse Rate 82 97 H 90 Pulse Rate [ From Monitor] Respiratory 18 17 16 Rate Blood Pressure O2 Sat by Pulse 99 98 98 Oximetry 04/28/22 04/28/22 04/28/22 01:16 01:30 01:46 Temperature Pulse Rate 80 87 81 Pulse Rate [ From Monitor] Respiratory 15 22 20 Rate Blood Pressure O2 Sat by Pulse 99 98 98 Oximetry 04/28/22 04/28/22 04/28/22 02:00 02:16 02:30 Temperature Pulse Rate 103 H 84 78 Pulse Rate [ From Monitor] Respiratory 15 17 15 Rate Blood Pressure O2 Sat by Pulse 94 100 100 Oximetry 04/28/22 04/28/22 04/28/22 02:46 03:00 03:14 Temperature Pulse Rate 81 81 83 Pulse Rate [ From Monitor] Respiratory 17 17 Rate Blood Pressure O2 Sat by Pulse 97 100 Oximetry 04/28/22 04/28/22 04/28/22 03:16 03:30 03:46 Temperature Pulse Rate 79 86 80 Pulse Rate [ From Monitor] Respiratory 15 16 12 Rate Blood Pressure O2 Sat by Pulse 100 100 99 Oximetry 04/28/22 04/28/22 04/28/22 03:57 04:00 04:16 Temperature 103.2 F H Pulse Rate 87 76 Pulse Rate [ 89 From Monitor] Respiratory 18 20 18 Rate Blood Pressure 127/68 O2 Sat by Pulse 100 100 98 Oximetry 04/28/22 04/28/22 04/28/22 04:30 04:46 05:00 Temperature Pulse Rate 82 81 83 Pulse Rate [ From Monitor] Respiratory 13 17 20 Rate Blood Pressure O2 Sat by Pulse 100 100 100 Oximetry 04/28/22 04/28/22 04/28/22 05:16 05:23 05:30 Temperature 101.8 F H Pulse Rate 82 97 H Pulse Rate [ From Monitor] Respiratory 19 18 Rate Blood Pressure O2 Sat by Pulse 98 97 Oximetry 04/28/22 04/28/22 04/28/22 05:46 06:00 06:16 Temperature Pulse Rate 93 H 92 H 104 H Pulse Rate [ From Monitor] Respiratory 14 21 20 Rate Blood Pressure O2 Sat by Pulse 97 97 97 Oximetry 04/28/22 04/28/22 04/28/22 06:30 06:46 07:00 Temperature Pulse Rate 98 H 92 H 94 H Pulse Rate [ From Monitor] Respiratory 18 19 16 Rate Blood Pressure O2 Sat by Pulse 97 97 98 Oximetry 04/28/22 04/28/22 07:17 07:49 Temperature 102.4 F H Pulse Rate 78 Pulse Rate [ From Monitor] Respiratory Rate Blood Pressure 103/51 O2 Sat by Pulse 100 Oximetry Constitutional: no acute distress, alert, other (elderly obese male ) Eyes: non-icteric ENT: oropharynx moist, other (ETT 24 cm DIANNE) Neck: supple, no JVD, other (RIJ CVL) Effort: normal Ascultation: Bilateral: diminished breath sounds, rales (improved), rhonchi (scant) Percussion: Bilateral: not dull Cardiovascular: irregular rhythm, other (No R/M) Gastrointestinal: normoactive bowel sounds, soft, non-tender, non-distended (protuberant), other (Dunbar catheter) Integumentary: rash (erythematous rash over anterior chest wall and upper extremities) Extremities: no cyanosis, no edema, pulses normal, no ischemia or petechiae, edema (bilateral upper extemities) Neurologic: non-focal exam (grossly), pupils equal and round, other (obeys simple commands) Psychiatric: other (Unable to assess due to mental status.) CBC and BMP: 05/02/22 04:59 05/02/22 04:59 ABG, PT/INR, D-dimer: ABG ABG pH 7.489 pH Units (7.350-7.450) H 04/28/22 05:25 ABG pCO2 37.5 mm Hg 04/28/22 05:25 ABG pO2 72.5 mm Hg (80.0-90.0) L 04/28/22 05:25 ABG O2 Saturation 96.6 % (95.0-99.0) 04/28/22 05:25 PT/INR, D-dimer PT 15.6 Sec. (12.2-14.9) H 04/18/22 Unknown INR 1.08 (0.87-1.13) 04/18/22 Unknown Abnormal lab findings: Abnormal Labs 04/17/22 04/17/22 04/17/22 19:18 19:55 19:56 WBC RBC Hgb Hct RDW Plt Count Lymph % (Auto) [place] % (Auto) Eos % (Auto) Lymph # (Auto) [place] # (Auto) Eos # (Auto) Seg Neutrophils % Seg Neuts % (Manual) Lymphocytes % (Manual) Eosinophils % (Manual) Seg Neutrophils # Seg Neutrophils # Man Lymphocytes # (Manual) Eosinophils # (Manual) PT Activated Coag Time Heparin Anti-Xa Level ABG pH 7.120 L* ABG pO2 45.3 L ABG HCO3 18.5 L ABG O2 Saturation 68.3 L ABG Base Excess -11.5 L ABG Hemoglobin Oxyhemoglobin 66.8 L Sodium Potassium Chloride 94.2 L Carbon Dioxide 17 L BUN Creatinine 1.6 H Glucose 315 H POC Glucose 277 H Lactic Acid Calcium Phosphorus Magnesium AST 529 H ALT 318 H Alkaline Phosphatase 137 H Total Creatine Kinase 398 H CK-MB (CK-2) 17.9 H CK-MB (CK-2) Rel Index 4.4 H Troponin T 0.205 H* Total Protein Albumin Triglycerides Urine Blood Urine WBC (Auto) Urine Creatinine 04/17/22 04/17/22 04/17/22 19:58 19:58 21:42 WBC 11.9 H RBC 5.17 H Hgb 15.5 H Hct 48.0 H RDW Plt Count Lymph % (Auto) [place] % (Auto) Eos % (Auto) Lymph # (Auto) [place] # (Auto) Eos # (Auto) Seg Neutrophils % 71.7 H Seg Neuts % (Manual) Lymphocytes % (Manual) Eosinophils % (Manual) Seg Neutrophils # 8.5 H Seg Neutrophils # Man Lymphocytes # (Manual) Eosinophils # (Manual) PT Activated Coag Time Heparin Anti-Xa Level ABG pH ABG pO2 ABG HCO3 ABG O2 Saturation ABG Base Excess ABG Hemoglobin Oxyhemoglobin Sodium Potassium Chloride 95.0 L Carbon Dioxide 19 L BUN Creatinine 1.5 H Glucose 306 H POC Glucose Lactic Acid Calcium Phosphorus Magnesium AST ALT Alkaline Phosphatase Total Creatine Kinase 412 H CK-MB (CK-2) 19.2 H CK-MB (CK-2) Rel Index 4.6 H Troponin T 0.285 H* D Total Protein Albumin Triglycerides Urine Blood Urine WBC (Auto) Urine Creatinine 04/17/22 04/18/22 04/18/22 21:42 00:40 01:07 WBC RBC Hgb Hct RDW Plt Count Lymph % (Auto) [place] % (Auto) Eos % (Auto) Lymph # (Auto) [place] # (Auto) Eos # (Auto) Seg Neutrophils % Seg Neuts % (Manual) Lymphocytes % (Manual) Eosinophils % (Manual) Seg Neutrophils # Seg Neutrophils # Man Lymphocytes # (Manual) Eosinophils # (Manual) PT Activated Coag Time Heparin Anti-Xa Level ABG pH ABG pO2 ABG HCO3 ABG O2 Saturation ABG Base Excess ABG Hemoglobin Oxyhemoglobin Sodium Potassium Chloride Carbon Dioxide BUN Creatinine Glucose POC Glucose 320 H Lactic Acid 7.90 H* 7.90 H* Calcium Phosphorus Magnesium AST ALT Alkaline Phosphatase Total Creatine Kinase CK-MB (CK-2) CK-MB (CK-2) Rel Index Troponin T Total Protein Albumin Triglycerides Urine Blood Urine WBC (Auto) Urine Creatinine 04/18/22 04/18/22 04/18/22 01:07 04:00 06:04 WBC RBC Hgb Hct RDW Plt Count Lymph % (Auto) [place] % (Auto) Eos % (Auto) Lymph # (Auto) [place] # (Auto) Eos # (Auto) Seg Neutrophils % Seg Neuts % (Manual) Lymphocytes % (Manual) Eosinophils % (Manual) Seg Neutrophils # Seg Neutrophils # Man Lymphocytes # (Manual) Eosinophils # (Manual) PT Activated Coag Time Heparin Anti-Xa Level < 0.10 L ABG pH ABG pO2 ABG HCO3 ABG O2 Saturation ABG Base Excess ABG Hemoglobin Oxyhemoglobin Sodium Potassium Chloride Carbon Dioxide BUN Creatinine Glucose POC Glucose 305 H Lactic Acid Calcium Phosphorus Magnesium AST ALT Alkaline Phosphatase Total Creatine Kinase 488 H CK-MB (CK-2) 25.3 H CK-MB (CK-2) Rel Index 5.1 H Troponin T 0.665 H* D Total Protein Albumin Triglycerides Urine Blood Urine WBC (Auto) Urine Creatinine 04/18/22 04/18/22 04/18/22 06:20 11:10 12:48 WBC RBC Hgb Hct RDW Plt Count Lymph % (Auto) [place] % (Auto) Eos % (Auto) Lymph # (Auto) [place] # (Auto) Eos # (Auto) Seg Neutrophils % Seg Neuts % (Manual) Lymphocytes % (Manual) Eosinophils % (Manual) Seg Neutrophils # Seg Neutrophils # Man Lymphocytes # (Manual) Eosinophils # (Manual) PT Activated Coag Time Heparin Anti-Xa Level < 0.10 L ABG pH 7.119 L* 7.304 L ABG pO2 56.1 L 103.5 H ABG HCO3 18.4 L 14.4 L ABG O2 Saturation 80.7 L ABG Base Excess -11.4 L -10.6 L ABG Hemoglobin 13.5 L Oxyhemoglobin 79.2 L Sodium Potassium Chloride Carbon Dioxide BUN Creatinine Glucose POC Glucose Lactic Acid Calcium Phosphorus Magnesium AST ALT Alkaline Phosphatase Total Creatine Kinase CK-MB (CK-2) CK-MB (CK-2) Rel Index Troponin T Total Protein Albumin Triglycerides Urine Blood Urine WBC (Auto) Urine Creatinine 04/18/22 04/18/22 04/18/22 13:13 16:00 16:00 WBC RBC Hgb Hct RDW Plt Count Lymph % (Auto) [place] % (Auto) Eos % (Auto) Lymph # (Auto) [place] # (Auto) Eos # (Auto) Seg Neutrophils % Seg Neuts % (Manual) Lymphocytes % (Manual) Eosinophils % (Manual) Seg Neutrophils # Seg Neutrophils # Man Lymphocytes # (Manual) Eosinophils # (Manual) PT Activated Coag Time Heparin Anti-Xa Level ABG pH ABG pO2 ABG HCO3 ABG O2 Saturation ABG Base Excess ABG Hemoglobin Oxyhemoglobin Sodium Potassium Chloride Carbon Dioxide BUN Creatinine Glucose POC Glucose 334 H Lactic Acid 7.00 H* Calcium Phosphorus 5.70 H Magnesium 1.30 L AST ALT Alkaline Phosphatase Total Creatine Kinase 969 H CK-MB (CK-2) 55.9 H CK-MB (CK-2) Rel Index 5.7 H Troponin T 1.580 H* D Total Protein Albumin Triglycerides Urine Blood Urine WBC (Auto) Urine Creatinine 04/18/22 04/18/22 04/18/22 16:00 18:00 18:01 WBC RBC Hgb Hct RDW Plt Count Lymph % (Auto) [place] % (Auto) Eos % (Auto) Lymph # (Auto) [place] # (Auto) Eos # (Auto) Seg Neutrophils % Seg Neuts % (Manual) Lymphocytes % (Manual) Eosinophils % (Manual) Seg Neutrophils # Seg Neutrophils # Man Lymphocytes # (Manual) Eosinophils # (Manual) PT Activated Coag Time Heparin Anti-Xa Level < 0.10 L ABG pH ABG pO2 ABG HCO3 ABG O2 Saturation ABG Base Excess ABG Hemoglobin Oxyhemoglobin Sodium 136 L Potassium 6.3 H* D Chloride 97.6 L Carbon Dioxide 18 L BUN 34 H Creatinine 3.5 H Glucose 409 H POC Glucose 397 H Lactic Acid Calcium 6.8 L Phosphorus Magnesium AST ALT Alkaline Phosphatase Total Creatine Kinase CK-MB (CK-2) CK-MB (CK-2) Rel Index Troponin T Total Protein Albumin Triglycerides Urine Blood Urine WBC (Auto) Urine Creatinine 04/18/22 04/18/22 04/18/22 19:13 20:58 21:22 WBC RBC Hgb Hct RDW Plt Count Lymph % (Auto) [place] % (Auto) Eos % (Auto) Lymph # (Auto) [place] # (Auto) Eos # (Auto) Seg Neutrophils % Seg Neuts % (Manual) Lymphocytes % (Manual) Eosinophils % (Manual) Seg Neutrophils # Seg Neutrophils # Man Lymphocytes # (Manual) Eosinophils # (Manual) PT Activated Coag Time Heparin Anti-Xa Level ABG pH 7.502 H ABG pO2 144.5 H ABG HCO3 ABG O2 Saturation ABG Base Excess ABG Hemoglobin 12.5 L Oxyhemoglobin Sodium Potassium Chloride Carbon Dioxide BUN Creatinine Glucose POC Glucose 321 H 307 H Lactic Acid Calcium Phosphorus Magnesium AST ALT Alkaline Phosphatase Total Creatine Kinase CK-MB (CK-2) CK-MB (CK-2) Rel Index Troponin T Total Protein Albumin Triglycerides Urine Blood Urine WBC (Auto) Urine Creatinine 04/18/22 04/18/22 04/18/22 21:30 21:30 Unknown WBC RBC Hgb Hct RDW Plt Count Lymph % (Auto) [place] % (Auto) Eos % (Auto) Lymph # (Auto) [place] # (Auto) Eos # (Auto) Seg Neutrophils % Seg Neuts % (Manual) 81.0 H Lymphocytes % (Manual) 12.0 L Eosinophils % (Manual) Seg Neutrophils # 9.8 H Seg Neutrophils # Man 8.7 H Lymphocytes # (Manual) Eosinophils # (Manual) PT Activated Coag Time Heparin Anti-Xa Level ABG pH ABG pO2 ABG HCO3 ABG O2 Saturation ABG Base Excess ABG Hemoglobin Oxyhemoglobin Sodium Potassium Chloride 96.6 L Carbon Dioxide BUN 37 H Creatinine 3.6 H Glucose 312 H POC Glucose Lactic Acid 5.50 H* Calcium 7.3 L Phosphorus Magnesium AST ALT Alkaline Phosphatase Total Creatine Kinase CK-MB (CK-2) CK-MB (CK-2) Rel Index Troponin T Total Protein Albumin Triglycerides Urine Blood Urine WBC (Auto) Urine Creatinine 04/18/22 04/18/22 04/19/22 Unknown Unknown 00:35 WBC RBC Hgb Hct RDW Plt Count Lymph % (Auto) [place] % (Auto) Eos % (Auto) Lymph # (Auto) [place] # (Auto) Eos # (Auto) Seg Neutrophils % Seg Neuts % (Manual) Lymphocytes % (Manual) Eosinophils % (Manual) Seg Neutrophils # Seg Neutrophils # Man Lymphocytes # (Manual) Eosinophils # (Manual) PT 15.6 H Activated Coag Time Heparin Anti-Xa Level ABG pH ABG pO2 ABG HCO3 ABG O2 Saturation ABG Base Excess ABG Hemoglobin Oxyhemoglobin Sodium Potassium Chloride Carbon Dioxide 18 L BUN 26 H Creatinine 2.5 H D Glucose 330 H POC Glucose Lactic Acid Calcium 7.9 L Phosphorus Magnesium AST 463 H ALT 249 H Alkaline Phosphatase Total Creatine Kinase CK-MB (CK-2) CK-MB (CK-2) Rel Index Troponin T 2.670 H* D Total Protein Albumin 3.3 L Triglycerides Urine Blood Urine WBC (Auto) Urine Creatinine 04/19/22 04/19/22 04/19/22 00:39 02:08 02:08 WBC RBC Hgb Hct RDW Plt Count Lymph % (Auto) [place] % (Auto) Eos % (Auto) Lymph # (Auto) [place] # (Auto) Eos # (Auto) Seg Neutrophils % Seg Neuts % (Manual) Lymphocytes % (Manual) Eosinophils % (Manual) Seg Neutrophils # Seg Neutrophils # Man Lymphocytes # (Manual) Eosinophils # (Manual) PT Activated Coag Time Heparin Anti-Xa Level ABG pH ABG pO2 ABG HCO3 ABG O2 Saturation ABG Base Excess ABG Hemoglobin Oxyhemoglobin Sodium Potassium Chloride Carbon Dioxide BUN Creatinine Glucose POC Glucose 263 H Lactic Acid Calcium Phosphorus Magnesium AST ALT Alkaline Phosphatase Total Creatine Kinase CK-MB (CK-2) CK-MB (CK-2) Rel Index Troponin T Total Protein Albumin Triglycerides Urine Blood Large A Urine WBC (Auto) 88.0 H Urine Creatinine 90.9 H 04/19/22 04/19/22 04/19/22 02:08 03:45 03:45 WBC 14.2 H RBC Hgb Hct RDW Plt Count Lymph % (Auto) [place] % (Auto) Eos % (Auto) Lymph # (Auto) [place] # (Auto) Eos # (Auto) Seg Neutrophils % Seg Neuts % (Manual) Lymphocytes % (Manual) Eosinophils % (Manual) Seg Neutrophils # Seg Neutrophils # Man Lymphocytes # (Manual) Eosinophils # (Manual) PT Activated Coag Time Heparin Anti-Xa Level 0.18 L ABG pH ABG pO2 ABG HCO3 ABG O2 Saturation ABG Base Excess ABG Hemoglobin Oxyhemoglobin Sodium Potassium Chloride 94.2 L Carbon Dioxide BUN 39 H Creatinine 3.8 H Glucose 243 H POC Glucose Lactic Acid Calcium 7.1 L Phosphorus Magnesium 1.50 L AST 380 H ALT 289 H Alkaline Phosphatase Total Creatine Kinase CK-MB (CK-2) CK-MB (CK-2) Rel Index Troponin T Total Protein 5.4 L Albumin 2.5 L Triglycerides Urine Blood Urine WBC (Auto) Urine Creatinine 04/19/22 04/19/22 04/19/22 03:45 06:01 07:11 WBC RBC Hgb Hct RDW Plt Count Lymph % (Auto) [place] % (Auto) Eos % (Auto) Lymph # (Auto) [place] # (Auto) Eos # (Auto) Seg Neutrophils % Seg Neuts % (Manual) Lymphocytes % (Manual) Eosinophils % (Manual) Seg Neutrophils # Seg Neutrophils # Man Lymphocytes # (Manual) Eosinophils # (Manual) PT Activated Coag Time Heparin Anti-Xa Level ABG pH ABG pO2 ABG HCO3 ABG O2 Saturation ABG Base Excess ABG Hemoglobin Oxyhemoglobin Sodium Potassium Chloride Carbon Dioxide BUN Creatinine Glucose POC Glucose 165 H Lactic Acid 4.00 H* Calcium Phosphorus Magnesium AST ALT Alkaline Phosphatase Total Creatine Kinase 3270 H CK-MB (CK-2) 28.5 H CK-MB (CK-2) Rel Index Troponin T 2.980 H* Total Protein Albumin Triglycerides Urine Blood Urine WBC (Auto) Urine Creatinine 04/19/22 04/19/22 04/19/22 07:50 08:50 12:49 WBC RBC Hgb Hct RDW Plt Count Lymph % (Auto) [place] % (Auto) Eos % (Auto) Lymph # (Auto) [place] # (Auto) Eos # (Auto) Seg Neutrophils % Seg Neuts % (Manual) Lymphocytes % (Manual) Eosinophils % (Manual) Seg Neutrophils # Seg Neutrophils # Man Lymphocytes # (Manual) Eosinophils # (Manual) PT Activated Coag Time Heparin Anti-Xa Level ABG pH 7.471 H ABG pO2 58.9 L ABG HCO3 27.1 H ABG O2 Saturation 91.7 L ABG Base Excess 3.4 H ABG Hemoglobin 12.2 L Oxyhemoglobin 90.0 L Sodium Potassium Chloride Carbon Dioxide BUN Creatinine Glucose POC Glucose 331 H Lactic Acid 3.40 H* Calcium Phosphorus Magnesium AST ALT Alkaline Phosphatase Total Creatine Kinase CK-MB (CK-2) CK-MB (CK-2) Rel Index Troponin T Total Protein Albumin Triglycerides Urine Blood Urine WBC (Auto) Urine Creatinine 04/19/22 04/19/22 04/19/22 16:15 19:25 21:17 WBC RBC Hgb Hct RDW Plt Count Lymph % (Auto) [place] % (Auto) Eos % (Auto) Lymph # (Auto) [place] # (Auto) Eos # (Auto) Seg Neutrophils % Seg Neuts % (Manual) Lymphocytes % (Manual) Eosinophils % (Manual) Seg Neutrophils # Seg Neutrophils # Man Lymphocytes # (Manual) Eosinophils # (Manual) PT Activated Coag Time Heparin Anti-Xa Level ABG pH ABG pO2 ABG HCO3 ABG O2 Saturation ABG Base Excess ABG Hemoglobin Oxyhemoglobin Sodium Potassium Chloride Carbon Dioxide BUN Creatinine Glucose POC Glucose 304 H 251 H Lactic Acid 4.00 H* Calcium Phosphorus Magnesium AST ALT Alkaline Phosphatase Total Creatine Kinase CK-MB (CK-2) CK-MB (CK-2) Rel Index Troponin T Total Protein Albumin Triglycerides Urine Blood Urine WBC (Auto) Urine Creatinine 04/19/22 04/20/22 04/20/22 23:00 04:12 04:12 WBC 12.2 H RBC Hgb 11.6 L Hct 35.3 L RDW Plt Count Lymph % (Auto) [place] % (Auto) Eos % (Auto) Lymph # (Auto) [place] # (Auto) Eos # (Auto) Seg Neutrophils % Seg Neuts % (Manual) Lymphocytes % (Manual) Eosinophils % (Manual) Seg Neutrophils # Seg Neutrophils # Man Lymphocytes # (Manual) Eosinophils # (Manual) PT Activated Coag Time Heparin Anti-Xa Level 0.15 L ABG pH ABG pO2 ABG HCO3 ABG O2 Saturation ABG Base Excess ABG Hemoglobin Oxyhemoglobin Sodium Potassium Chloride Carbon Dioxide BUN Creatinine Glucose POC Glucose 236 H Lactic Acid Calcium Phosphorus Magnesium AST ALT Alkaline Phosphatase Total Creatine Kinase CK-MB (CK-2) CK-MB (CK-2) Rel Index Troponin T Total Protein Albumin Triglycerides Urine Blood Urine WBC (Auto) Urine Creatinine 04/20/22 04/20/22 04/20/22 04:12 04:12 09:10 WBC RBC Hgb Hct RDW Plt Count Lymph % (Auto) [place] % (Auto) Eos % (Auto) Lymph # (Auto) [place] # (Auto) Eos # (Auto) Seg Neutrophils % Seg Neuts % (Manual) Lymphocytes % (Manual) Eosinophils % (Manual) Seg Neutrophils # Seg Neutrophils # Man Lymphocytes # (Manual) Eosinophils # (Manual) PT Activated Coag Time Heparin Anti-Xa Level ABG pH ABG pO2 ABG HCO3 ABG O2 Saturation ABG Base Excess ABG Hemoglobin Oxyhemoglobin Sodium 133 L Potassium 3.5 L Chloride 91.9 L Carbon Dioxide BUN 44 H Creatinine 4.6 H Glucose 263 H POC Glucose Lactic Acid 2.80 H* Calcium 7.2 L Phosphorus Magnesium AST 553 H ALT 471 H Alkaline Phosphatase Total Creatine Kinase 3019 H CK-MB (CK-2) CK-MB (CK-2) Rel Index Troponin T Total Protein 5.7 L Albumin 2.4 L Triglycerides 254 H Urine Blood Urine WBC (Auto) Urine Creatinine 04/20/22 04/20/22 04/20/22 09:31 11:18 18:08 WBC RBC Hgb Hct RDW Plt Count Lymph % (Auto) [place] % (Auto) Eos % (Auto) Lymph # (Auto) [place] # (Auto) Eos # (Auto) Seg Neutrophils % Seg Neuts % (Manual) Lymphocytes % (Manual) Eosinophils % (Manual) Seg Neutrophils # Seg Neutrophils # Man Lymphocytes # (Manual) Eosinophils # (Manual) PT Activated Coag Time Heparin Anti-Xa Level ABG pH 7.512 H ABG pO2 ABG HCO3 26.2 H ABG O2 Saturation ABG Base Excess 3.2 H ABG Hemoglobin 9.0 L Oxyhemoglobin Sodium Potassium Chloride Carbon Dioxide BUN Creatinine Glucose POC Glucose 285 H 293 H Lactic Acid Calcium Phosphorus Magnesium AST ALT Alkaline Phosphatase Total Creatine Kinase CK-MB (CK-2) CK-MB (CK-2) Rel Index Troponin T Total Protein Albumin Triglycerides Urine Blood Urine WBC (Auto) Urine Creatinine 04/20/22 04/21/22 04/21/22 21:40 00:10 04:00 WBC RBC Hgb Hct RDW Plt Count Lymph % (Auto) [place] % (Auto) Eos % (Auto) Lymph # (Auto) [place] # (Auto) Eos # (Auto) Seg Neutrophils % Seg Neuts % (Manual) Lymphocytes % (Manual) Eosinophils % (Manual) Seg Neutrophils # Seg Neutrophils # Man Lymphocytes # (Manual) Eosinophils # (Manual) PT Activated Coag Time Heparin Anti-Xa Level 0.16 L ABG pH ABG pO2 59.4 L ABG HCO3 29.7 H ABG O2 Saturation 90.1 L ABG Base Excess 3.1 H ABG Hemoglobin 11.6 L Oxyhemoglobin 88.2 L Sodium Potassium Chloride Carbon Dioxide BUN Creatinine Glucose POC Glucose 290 H Lactic Acid Calcium Phosphorus Magnesium AST ALT Alkaline Phosphatase Total Creatine Kinase CK-MB (CK-2) CK-MB (CK-2) Rel Index Troponin T Total Protein Albumin Triglycerides Urine Blood Urine WBC (Auto) Urine Creatinine 04/21/22 04/21/22 04/21/22 04:30 04:30 05:57 WBC 17.9 H RBC Hgb 11.7 L Hct 35.1 L RDW Plt Count Lymph % (Auto) [place] % (Auto) Eos % (Auto) Lymph # (Auto) [place] # (Auto) Eos # (Auto) Seg Neutrophils % Seg Neuts % (Manual) Lymphocytes % (Manual) Eosinophils % (Manual) Seg Neutrophils # Seg Neutrophils # Man Lymphocytes # (Manual) Eosinophils # (Manual) PT Activated Coag Time Heparin Anti-Xa Level ABG pH ABG pO2 ABG HCO3 ABG O2 Saturation ABG Base Excess ABG Hemoglobin Oxyhemoglobin Sodium Potassium Chloride 95.7 L Carbon Dioxide BUN 45 H Creatinine 4.2 H Glucose 309 H POC Glucose 265 H Lactic Acid Calcium 7.4 L Phosphorus 5.60 H D Magnesium 2.50 H AST 217 H ALT 376 H Alkaline Phosphatase Total Creatine Kinase CK-MB (CK-2) CK-MB (CK-2) Rel Index Troponin T Total Protein Albumin 2.8 L Triglycerides Urine Blood Urine WBC (Auto) Urine Creatinine 04/21/22 04/21/22 04/21/22 12:14 13:45 18:10 WBC RBC Hgb Hct RDW Plt Count Lymph % (Auto) [place] % (Auto) Eos % (Auto) Lymph # (Auto) [place] # (Auto) Eos # (Auto) Seg Neutrophils % Seg Neuts % (Manual) Lymphocytes % (Manual) Eosinophils % (Manual) Seg Neutrophils # Seg Neutrophils # Man Lymphocytes # (Manual) Eosinophils # (Manual) PT Activated Coag Time 179 H Heparin Anti-Xa Level ABG pH ABG pO2 ABG HCO3 ABG O2 Saturation ABG Base Excess ABG Hemoglobin Oxyhemoglobin Sodium Potassium Chloride Carbon Dioxide BUN Creatinine Glucose POC Glucose 248 H 240 H Lactic Acid Calcium Phosphorus Magnesium AST ALT Alkaline Phosphatase Total Creatine Kinase CK-MB (CK-2) CK-MB (CK-2) Rel Index Troponin T Total Protein Albumin Triglycerides Urine Blood Urine WBC (Auto) Urine Creatinine 04/22/22 04/22/22 04/22/22 00:09 04:00 04:33 WBC 12.4 H RBC 3.34 L Hgb 9.8 L Hct 29.7 L RDW Plt Count 138 L Lymph % (Auto) [place] % (Auto) Eos % (Auto) Lymph # (Auto) [place] # (Auto) Eos # (Auto) Seg Neutrophils % Seg Neuts % (Manual) Lymphocytes % (Manual) Eosinophils % (Manual) Seg Neutrophils # Seg Neutrophils # Man Lymphocytes # (Manual) Eosinophils # (Manual) PT Activated Coag Time Heparin Anti-Xa Level ABG pH ABG pO2 ABG HCO3 ABG O2 Saturation ABG Base Excess ABG Hemoglobin Oxyhemoglobin Sodium Potassium Chloride Carbon Dioxide BUN 40 H Creatinine 2.9 H Glucose 269 H POC Glucose 248 H Lactic Acid Calcium 7.3 L Phosphorus Magnesium AST ALT Alkaline Phosphatase Total Creatine Kinase 973 H CK-MB (CK-2) CK-MB (CK-2) Rel Index Troponin T Total Protein Albumin Triglycerides Urine Blood Urine WBC (Auto) Urine Creatinine 04/22/22 04/22/22 04/22/22 10:13 11:51 18:02 WBC RBC Hgb Hct RDW Plt Count Lymph % (Auto) [place] % (Auto) Eos % (Auto) Lymph # (Auto) [place] # (Auto) Eos # (Auto) Seg Neutrophils % Seg Neuts % (Manual) Lymphocytes % (Manual) Eosinophils % (Manual) Seg Neutrophils # Seg Neutrophils # Man Lymphocytes # (Manual) Eosinophils # (Manual) PT Activated Coag Time Heparin Anti-Xa Level ABG pH ABG pO2 56.1 L ABG HCO3 28.4 H ABG O2 Saturation 89.3 L ABG Base Excess ABG Hemoglobin 9.8 L Oxyhemoglobin 87.7 L Sodium Potassium Chloride Carbon Dioxide BUN Creatinine Glucose POC Glucose 302 H 266 H Lactic Acid Calcium Phosphorus Magnesium AST ALT Alkaline Phosphatase Total Creatine Kinase CK-MB (CK-2) CK-MB (CK-2) Rel Index Troponin T Total Protein Albumin Triglycerides Urine Blood Urine WBC (Auto) Urine Creatinine 04/22/22 04/22/22 04/23/22 21:18 23:30 04:19 WBC RBC 3.34 L Hgb 9.9 L Hct 29.9 L RDW Plt Count Lymph % (Auto) [place] % (Auto) Eos % (Auto) Lymph # (Auto) [place] # (Auto) Eos # (Auto) Seg Neutrophils % Seg Neuts % (Manual) 74.0 H Lymphocytes % (Manual) 10.0 L Eosinophils % (Manual) 7.0 H Seg Neutrophils # Seg Neutrophils # Man 8.0 H Lymphocytes # (Manual) 1.1 L Eosinophils # (Manual) 0.8 H PT Activated Coag Time Heparin Anti-Xa Level ABG pH ABG pO2 ABG HCO3 ABG O2 Saturation ABG Base Excess ABG Hemoglobin Oxyhemoglobin Sodium Potassium Chloride Carbon Dioxide BUN Creatinine Glucose POC Glucose 299 H 299 H Lactic Acid Calcium Phosphorus Magnesium AST ALT Alkaline Phosphatase Total Creatine Kinase CK-MB (CK-2) CK-MB (CK-2) Rel Index Troponin T Total Protein Albumin Triglycerides Urine Blood Urine WBC (Auto) Urine Creatinine 04/23/22 04/23/22 04/23/22 04:19 05:24 11:20 WBC RBC Hgb Hct RDW Plt Count Lymph % (Auto) [place] % (Auto) Eos % (Auto) Lymph # (Auto) [place] # (Auto) Eos # (Auto) Seg Neutrophils % Seg Neuts % (Manual) Lymphocytes % (Manual) Eosinophils % (Manual) Seg Neutrophils # Seg Neutrophils # Man Lymphocytes # (Manual) Eosinophils # (Manual) PT Activated Coag Time Heparin Anti-Xa Level ABG pH ABG pO2 ABG HCO3 ABG O2 Saturation ABG Base Excess ABG Hemoglobin Oxyhemoglobin Sodium Potassium 3.5 L Chloride Carbon Dioxide BUN 30 H Creatinine 2.3 H Glucose 289 H POC Glucose 271 H 302 H Lactic Acid Calcium 7.8 L Phosphorus Magnesium AST 46 H ALT 158 H Alkaline Phosphatase 138 H Total Creatine Kinase CK-MB (CK-2) CK-MB (CK-2) Rel Index Troponin T Total Protein 6.2 L Albumin 2.6 L Triglycerides 230 H Urine Blood Urine WBC (Auto) Urine Creatinine 04/23/22 04/23/22 04/23/22 18:07 18:20 21:14 WBC RBC Hgb Hct RDW Plt Count Lymph % (Auto) [place] % (Auto) Eos % (Auto) Lymph # (Auto) [place] # (Auto) Eos # (Auto) Seg Neutrophils % Seg Neuts % (Manual) Lymphocytes % (Manual) Eosinophils % (Manual) Seg Neutrophils # Seg Neutrophils # Man Lymphocytes # (Manual) Eosinophils # (Manual) PT Activated Coag Time Heparin Anti-Xa Level ABG pH ABG pO2 ABG HCO3 31.6 H ABG O2 Saturation ABG Base Excess 4.8 H ABG Hemoglobin 18.3 H Oxyhemoglobin 94.8 L Sodium Potassium Chloride Carbon Dioxide BUN Creatinine Glucose POC Glucose 228 H 175 H Lactic Acid Calcium Phosphorus Magnesium AST ALT Alkaline Phosphatase Total Creatine Kinase CK-MB (CK-2) CK-MB (CK-2) Rel Index Troponin T Total Protein Albumin Triglycerides Urine Blood Urine WBC (Auto) Urine Creatinine 04/23/22 04/24/22 04/24/22 23:24 04:35 04:47 WBC RBC Hgb Hct RDW Plt Count Lymph % (Auto) [place] % (Auto) Eos % (Auto) Lymph # (Auto) [place] # (Auto) Eos # (Auto) Seg Neutrophils % Seg Neuts % (Manual) Lymphocytes % (Manual) Eosinophils % (Manual) Seg Neutrophils # Seg Neutrophils # Man Lymphocytes # (Manual) Eosinophils # (Manual) PT Activated Coag Time Heparin Anti-Xa Level ABG pH ABG pO2 ABG HCO3 31.5 H ABG O2 Saturation ABG Base Excess 6.1 H ABG Hemoglobin 10.3 L Oxyhemoglobin Sodium Potassium Chloride Carbon Dioxide BUN Creatinine Glucose POC Glucose 168 H 177 H Lactic Acid Calcium Phosphorus Magnesium AST ALT Alkaline Phosphatase Total Creatine Kinase CK-MB (CK-2) CK-MB (CK-2) Rel Index Troponin T Total Protein Albumin Triglycerides Urine Blood Urine WBC (Auto) Urine Creatinine 04/24/22 04/24/22 04/24/22 06:00 06:00 12:45 WBC 14.0 H RBC 3.57 L Hgb 10.1 L Hct 31.9 L RDW Plt Count Lymph % (Auto) 4.7 L [place] % (Auto) 8.8 H Eos % (Auto) 6.0 H Lymph # (Auto) 0.7 L [place] # (Auto) 1.2 H Eos # (Auto) 0.8 H Seg Neutrophils % 80.5 H Seg Neuts % (Manual) Lymphocytes % (Manual) Eosinophils % (Manual) Seg Neutrophils # 11.3 H Seg Neutrophils # Man Lymphocytes # (Manual) Eosinophils # (Manual) PT Activated Coag Time Heparin Anti-Xa Level ABG pH ABG pO2 ABG HCO3 ABG O2 Saturation ABG Base Excess ABG Hemoglobin Oxyhemoglobin Sodium Potassium 3.4 L Chloride Carbon Dioxide BUN 25 H Creatinine 1.8 H Glucose 218 H POC Glucose 227 H Lactic Acid Calcium 8.2 L Phosphorus Magnesium AST ALT 99 H Alkaline Phosphatase 141 H Total Creatine Kinase CK-MB (CK-2) CK-MB (CK-2) Rel Index Troponin T Total Protein 6.2 L Albumin 2.2 L Triglycerides Urine Blood Urine WBC (Auto) Urine Creatinine 04/24/22 04/24/22 04/24/22 17:57 21:19 23:24 WBC RBC Hgb Hct RDW Plt Count Lymph % (Auto) [place] % (Auto) Eos % (Auto) Lymph # (Auto) [place] # (Auto) Eos # (Auto) Seg Neutrophils % Seg Neuts % (Manual) Lymphocytes % (Manual) Eosinophils % (Manual) Seg Neutrophils # Seg Neutrophils # Man Lymphocytes # (Manual) Eosinophils # (Manual) PT Activated Coag Time Heparin Anti-Xa Level ABG pH ABG pO2 ABG HCO3 ABG O2 Saturation ABG Base Excess ABG Hemoglobin Oxyhemoglobin Sodium Potassium Chloride Carbon Dioxide BUN Creatinine Glucose POC Glucose 207 H 186 H 203 H Lactic Acid Calcium Phosphorus Magnesium AST ALT Alkaline Phosphatase Total Creatine Kinase CK-MB (CK-2) CK-MB (CK-2) Rel Index Troponin T Total Protein Albumin Triglycerides Urine Blood Urine WBC (Auto) Urine Creatinine 04/25/22 04/25/22 04/25/22 03:30 03:30 04:38 WBC 19.7 H RBC 3.39 L Hgb 9.8 L Hct 30.2 L RDW 15.6 H Plt Count Lymph % (Auto) 4.7 L [place] % (Auto) Eos % (Auto) 5.0 H Lymph # (Auto) 0.9 L [place] # (Auto) 1.2 H Eos # (Auto) 1.0 H Seg Neutrophils % 84.0 H Seg Neuts % (Manual) Lymphocytes % (Manual) Eosinophils % (Manual) Seg Neutrophils # 16.5 H Seg Neutrophils # Man Lymphocytes # (Manual) Eosinophils # (Manual) PT Activated Coag Time Heparin Anti-Xa Level ABG pH ABG pO2 ABG HCO3 ABG O2 Saturation ABG Base Excess ABG Hemoglobin Oxyhemoglobin Sodium 151 H Potassium 3.5 L Chloride 108.6 H Carbon Dioxide 31 H BUN 27 H Creatinine 1.9 H Glucose 144 H POC Glucose 135 H Lactic Acid Calcium 8.3 L Phosphorus Magnesium AST ALT Alkaline Phosphatase Total Creatine Kinase CK-MB (CK-2) CK-MB (CK-2) Rel Index Troponin T Total Protein Albumin Triglycerides Urine Blood Urine WBC (Auto) Urine Creatinine 04/25/22 04/25/22 04/25/22 05:09 12:12 17:58 WBC RBC Hgb Hct RDW Plt Count Lymph % (Auto) [place] % (Auto) Eos % (Auto) Lymph # (Auto) [place] # (Auto) Eos # (Auto) Seg Neutrophils % Seg Neuts % (Manual) Lymphocytes % (Manual) Eosinophils % (Manual) Seg Neutrophils # Seg Neutrophils # Man Lymphocytes # (Manual) Eosinophils # (Manual) PT Activated Coag Time Heparin Anti-Xa Level ABG pH ABG pO2 ABG HCO3 32.2 H ABG O2 Saturation ABG Base Excess 6.7 H ABG Hemoglobin 9.9 L Oxyhemoglobin 94.9 L Sodium Potassium Chloride Carbon Dioxide BUN Creatinine Glucose POC Glucose 218 H 229 H Lactic Acid Calcium Phosphorus Magnesium AST ALT Alkaline Phosphatase Total Creatine Kinase CK-MB (CK-2) CK-MB (CK-2) Rel Index Troponin T Total Protein Albumin Triglycerides Urine Blood Urine WBC (Auto) Urine Creatinine 04/25/22 04/25/22 04/26/22 18:00 23:48 05:20 WBC RBC Hgb 9.4 L Hct 30.1 L RDW Plt Count Lymph % (Auto) [place] % (Auto) Eos % (Auto) Lymph # (Auto) [place] # (Auto) Eos # (Auto) Seg Neutrophils % Seg Neuts % (Manual) Lymphocytes % (Manual) Eosinophils % (Manual) Seg Neutrophils # Seg Neutrophils # Man Lymphocytes # (Manual) Eosinophils # (Manual) PT Activated Coag Time Heparin Anti-Xa Level ABG pH ABG pO2 ABG HCO3 32.4 H ABG O2 Saturation ABG Base Excess 6.8 H ABG Hemoglobin 9.5 L Oxyhemoglobin Sodium Potassium Chloride Carbon Dioxide BUN Creatinine Glucose POC Glucose 214 H Lactic Acid Calcium Phosphorus Magnesium AST ALT Alkaline Phosphatase Total Creatine Kinase CK-MB (CK-2) CK-MB (CK-2) Rel Index Troponin T Total Protein Albumin Triglycerides Urine Blood Urine WBC (Auto) Urine Creatinine 04/26/22 04/26/22 04/26/22 05:20 05:51 11:39 WBC RBC Hgb Hct RDW Plt Count Lymph % (Auto) [place] % (Auto) Eos % (Auto) Lymph # (Auto) [place] # (Auto) Eos # (Auto) Seg Neutrophils % Seg Neuts % (Manual) Lymphocytes % (Manual) Eosinophils % (Manual) Seg Neutrophils # Seg Neutrophils # Man Lymphocytes # (Manual) Eosinophils # (Manual) PT Activated Coag Time Heparin Anti-Xa Level ABG pH ABG pO2 ABG HCO3 ABG O2 Saturation ABG Base Excess ABG Hemoglobin Oxyhemoglobin Sodium 147 H Potassium Chloride Carbon Dioxide 33 H BUN 27 H Creatinine 1.6 H Glucose 221 H POC Glucose 227 H 263 H Lactic Acid Calcium Phosphorus Magnesium AST ALT Alkaline Phosphatase Total Creatine Kinase CK-MB (CK-2) CK-MB (CK-2) Rel Index Troponin T Total Protein Albumin Triglycerides Urine Blood Urine WBC (Auto) Urine Creatinine 04/26/22 04/26/22 04/27/22 16:22 23:14 04:00 WBC RBC Hgb Hct RDW Plt Count Lymph % (Auto) [place] % (Auto) Eos % (Auto) Lymph # (Auto) [place] # (Auto) Eos # (Auto) Seg Neutrophils % Seg Neuts % (Manual) Lymphocytes % (Manual) Eosinophils % (Manual) Seg Neutrophils # Seg Neutrophils # Man Lymphocytes # (Manual) Eosinophils # (Manual) PT Activated Coag Time Heparin Anti-Xa Level ABG pH ABG pO2 ABG HCO3 ABG O2 Saturation ABG Base Excess ABG Hemoglobin Oxyhemoglobin Sodium Potassium Chloride Carbon Dioxide BUN 23 H Creatinine 1.4 H Glucose 231 H POC Glucose 250 H 221 H Lactic Acid Calcium 8.3 L Phosphorus Magnesium AST 45 H ALT Alkaline Phosphatase 180 H Total Creatine Kinase CK-MB (CK-2) CK-MB (CK-2) Rel Index Troponin T Total Protein Albumin 2.1 L Triglycerides Urine Blood Urine WBC (Auto) Urine Creatinine 04/27/22 04/27/22 04/27/22 04:00 05:25 11:08 WBC 20.1 H RBC 3.28 L Hgb 9.5 L Hct 29.3 L RDW Plt Count Lymph % (Auto) 5.9 L [place] % (Auto) 8.0 H Eos % (Auto) 5.5 H Lymph # (Auto) [place] # (Auto) 1.6 H Eos # (Auto) 1.1 H Seg Neutrophils % 80.3 H Seg Neuts % (Manual) Lymphocytes % (Manual) Eosinophils % (Manual) Seg Neutrophils # 16.2 H Seg Neutrophils # Man Lymphocytes # (Manual) Eosinophils # (Manual) PT Activated Coag Time Heparin Anti-Xa Level ABG pH ABG pO2 ABG HCO3 ABG O2 Saturation ABG Base Excess ABG Hemoglobin Oxyhemoglobin Sodium Potassium Chloride Carbon Dioxide BUN Creatinine Glucose POC Glucose 234 H 224 H Lactic Acid Calcium Phosphorus Magnesium AST ALT Alkaline Phosphatase Total Creatine Kinase CK-MB (CK-2) CK-MB (CK-2) Rel Index Troponin T Total Protein Albumin Triglycerides Urine Blood Urine WBC (Auto) Urine Creatinine 04/28/22 04/28/22 04/28/22 00:01 05:25 05:28 WBC 16.1 H RBC 3.32 L Hgb 9.4 L Hct 29.9 L RDW Plt Count Lymph % (Auto) [place] % (Auto) Eos % (Auto) Lymph # (Auto) [place] # (Auto) Eos # (Auto) Seg Neutrophils % Seg Neuts % (Manual) Lymphocytes % (Manual) Eosinophils % (Manual) Seg Neutrophils # Seg Neutrophils # Man Lymphocytes # (Manual) Eosinophils # (Manual) PT Activated Coag Time Heparin Anti-Xa Level ABG pH 7.489 H ABG pO2 72.5 L ABG HCO3 27.8 H ABG O2 Saturation ABG Base Excess 4.3 H ABG Hemoglobin 9.2 L Oxyhemoglobin 94.6 L Sodium Potassium Chloride Carbon Dioxide BUN Creatinine Glucose POC Glucose 189 H Lactic Acid Calcium Phosphorus Magnesium AST ALT Alkaline Phosphatase Total Creatine Kinase CK-MB (CK-2) CK-MB (CK-2) Rel Index Troponin T Total Protein Albumin Triglycerides Urine Blood Urine WBC (Auto) Urine Creatinine 04/28/22 04/28/22 05:28 05:44 WBC RBC Hgb Hct RDW Plt Count Lymph % (Auto) [place] % (Auto) Eos % (Auto) Lymph # (Auto) [place] # (Auto) Eos # (Auto) Seg Neutrophils % Seg Neuts % (Manual) Lymphocytes % (Manual) Eosinophils % (Manual) Seg Neutrophils # Seg Neutrophils # Man Lymphocytes # (Manual) Eosinophils # (Manual) PT Activated Coag Time Heparin Anti-Xa Level ABG pH ABG pO2 ABG HCO3 ABG O2 Saturation ABG Base Excess ABG Hemoglobin Oxyhemoglobin Sodium Potassium Chloride Carbon Dioxide BUN 22 H Creatinine 1.4 H Glucose 179 H POC Glucose 181 H Lactic Acid Calcium 8.2 L Phosphorus Magnesium AST ALT Alkaline Phosphatase Total Creatine Kinase CK-MB (CK-2) CK-MB (CK-2) Rel Index Troponin T Total Protein Albumin Triglycerides Urine Blood Urine WBC (Auto) Urine Creatinine Allied health notes reviewed: RT
[2022-04-28 09:00] LABS: Mucus,Urine FEW /HPF
--- NOTE | 2022-04-28 09:04 | XRay Report ---
CHEST 1 VIEW 04/28/2022 7:21 AM INDICATION / CLINICAL INFORMATION: Follow up Respiratory Failure. COMPARISON: 04/25/22. FINDINGS: SUPPORT DEVICES: The positions of the endotracheal tube and feeding tube have not changed. The right jugular CVL has been removed. HEART / MEDIASTINUM: Unchanged. LUNGS / PLEURA: Mild to moderate pleuroparenchymal disease in both lower hemithoraces, left greater t clancy right, has shown mild increase. No pneumothorax. ADDITIONAL FINDINGS: No significant additional findings. IMPRESSION: Mild increase in bibasilar pleuroparenchymal disease. Signer Name: Jeremy Santiago MD Signed: 04/28/2022 8:59 AM Workstation Name: [employer]
[2022-04-28 09:25] LABS: Bilirubin,Urine Negative (Negative); Blood,Urine 3+ (Negative); Color,Urine Straw (Yellow); Protein,Urine 300 mg/dL mg/dL (Negative); Urobilinogen,Urine < 2.0 mg/dL (<2.0)
[2022-04-28] MEDS: FAMOTIDINE 20 MG TAB FEEDTUBE SCH ×2 (09:48→21:00)
[2022-04-28] MEDS: HEPARIN 5,000 UNIT/1 ML VIAL SUB-Q SCH ×2 (09:48→20:59)
[2022-04-28] MEDS: ASPIRIN 81 MG TAB CHEW FEEDTUBE SCH (09:48)
[2022-04-28] MEDS: DOCUSATE SODIUM 100 MG/10 ML ORAL LIQD FEEDTUBE SCH ×2 (09:48→20:59)
[2022-04-28] MEDS: AMIODARONE 200 MG TAB PO SCH ×2 (09:48→20:59)
[2022-04-28] MEDS: VANCOMYCIN 1,750 MG in SODIUM CHLORIDE 0.9% 500 ML 500 ML IV SCH (09:49)
--- NOTE | 2022-04-28 09:58 | Progress Note ---
Assessment and Plan It will be recalled that he presented to [facility] emergency clinic with chest pain, and during his evaluation there, suffered an acute cardiopulmonary arrest prompting his transfer to the emergency room at [facility]. Ventricular fibrillation was reported, although no strips available for review. EKG on presentation here was a rapid atrial fibrillation with some nonspecific ST segment changes which have since resolved. Echocardiogram showed a four-chamber dilated cardiomyopathy with left ventricular ejection fraction 15 to 20%. The chronicity of the cardiomyopathy is uncertain, the patient's does not report any recent cardiac evaluation, with only a history of atrial fibrillation requiring cardioversion some 15 years ago. Cardiac catheterization performed this admission showed no significant obstructive coronary lesions, consistent with nonischemic cardiomyopathy. Post cardiac catheterization, and IV hydration, his creatinine has reduced from 4.6- 2.9. The patient however still vent dependent, with high oxygen rate requirements. Chest x-ray today shows a mostly right lung opacity, the ICU team is treating him for possible aspiration. Eventually, he would need a device during this hospitalization for secondary prevention of sudden cardiac before discharge as he had cardiac arrest and low ejection fraction. If the patient has active infection and cannot get a device he will at least need a LifeVest we will introduce afterload agents and beta-blockers for LV systolic dysfunction once he is off pressors/inotropic agents and clinically stable. We will continue oral amiodarone, indicated for rate control as we have very limited option for rate control strategy. He will need long-term oral anticoagulation for atrial fibrillation will initiate it when clinically stable. Patient has been positive fluid balance for the last couple of days. Will recommend 1 dose of IV Lasix to help with weaning. - Patient Problems (1) Atrial fibrillation with RVR Current Visit: Yes Status: Acute (2) Cardiac arrest Current Visit: Yes Status: Acute (3) Cardiogenic shock Current Visit: Yes Status: Acute Subjective Principal diagnosis: AHRF; AMS; Pneumonia; Shock; DM II; Severe Metabolic Acidosis Interval history: Patient is off all pressors tolerating CPAP trials. Amiodarone was increased to 400 and he is tolerating it well with rates controlled and improved blood pressu re overnight. His creatinine continues to improve. Patient is awake and following commands Telemetry reviewed, still in atrial fibrillation with heart rates in low 80-90's Objective Vital Signs Temp Pulse Pulse Resp BP Pulse Ox 04/28/22 09:00 84 14 100 04/28/22 08:46 82 19 100 04/28/22 08:30 84 17 100 04/28/22 08:16 82 20 100 04/28/22 08:00 79 89 15 100 04/28/22 07:49 78 103/51 100 04/28/22 07:46 81 16 100 04/28/22 07:30 95 H 20 99 04/28/22 07:17 102.4 F H 04/28/22 07:16 84 22 99 04/28/22 07:00 94 H 16 98 04/28/22 06:46 92 H 19 97 04/28/22 06:30 98 H 18 97 04/28/22 06:16 104 H 20 97 04/28/22 06:00 92 H 21 97 04/28/22 05:46 93 H 14 97 04/28/22 05:30 97 H 18 97 04/28/22 05:23 101.8 F H 04/28/22 05:16 82 19 98 04/28/22 05:00 83 20 100 04/28/22 04:46 81 17 100 04/28/22 04:30 82 13 100 04/28/22 04:16 76 18 98 04/28/22 04:00 103.2 F H 87 20 127/68 100 04/28/22 03:57 89 18 100 04/28/22 03:46 80 12 99 04/28/22 03:30 86 16 100 04/28/22 03:16 79 15 100 04/28/22 03:14 83 04/28/22 03:00 81 17 100 04/28/22 02:46 81 17 97 04/28/22 02:30 78 15 100 04/28/22 02:16 84 17 100 04/28/22 02:00 103 H 15 94 04/28/22 01:46 81 20 98 04/28/22 01:30 87 22 98 04/28/22 01:16 80 15 99 04/28/22 01:00 90 16 98 04/28/22 00:46 97 H 17 98 04/28/22 00:30 82 18 99 04/28/22 00:16 86 14 99 04/28/22 00:00 98.6 F 86 21 100 04/27/22 23:46 87 18 100 04/27/22 23:30 95 H 14 100 04/27/22 23:16 94 H 22 92 04/27/22 23:05 82 04/27/22 23:04 87 90 19 99 04/27/22 23:00 88 15 100 04/27/22 22:46 89 14 98 04/27/22 22:39 89 124/66 99 04/27/22 22:30 86 14 97 04/27/22 22:16 89 13 100 04/27/22 22:00 83 20 100 04/27/22 21:46 77 15 99 04/27/22 21:30 98 H 20 92 04/27/22 21:16 82 12 97 04/27/22 21:00 91 H 14 98 04/27/22 20:46 92 H 17 98 04/27/22 20:30 104 H 18 96 04/27/22 20:22 98.4 F 04/27/22 20:16 86 18 100 04/27/22 20:00 98 H 18 126/57 100 04/27/22 19:46 89 18 100 04/27/22 19:30 87 13 98 04/27/22 19:29 93 H 16 100 04/27/22 19:27 88 04/27/22 19:16 93 H 17 98 04/27/22 19:00 101 H 13 98 04/27/22 18:46 101 H 24 100 04/27/22 18:30 93 H 17 99 04/27/22 18:16 88 15 98 04/27/22 18:00 96 H 24 99 04/27/22 17:58 110 H 24 99 04/27/22 17:56 112 H 22 97 04/27/22 17:54 107 H 22 99 04/27/22 17:52 99 H 24 100 04/27/22 17:50 98 H 19 100 04/27/22 17:48 100.8 F H 94 H 23 100 04/27/22 17:46 97 H 14 100 04/27/22 17:44 95 H 22 100 04/27/22 17:42 95 H 22 100 04/27/22 17:40 92 H 22 100 04/27/22 17:38 97 H 21 100 04/27/22 17:36 88 24 100 04/27/22 17:34 86 15 99 04/27/22 17:32 98 H 14 100 04/27/22 17:30 95 H 20 99 04/27/22 17:28 95 H 14 100 04/27/22 17:26 94 H 24 100 04/27/22 17:24 89 18 99 04/27/22 17:22 99 H 20 100 04/27/22 17:20 92 H 17 99 04/27/22 17:18 100 H 20 100 04/27/22 17:16 96 H 24 100 04/27/22 17:14 101 H 19 99 04/27/22 17:12 89 16 100 04/27/22 17:10 97 H 16 98 04/27/22 17:08 93 H 15 98 04/27/22 17:06 103 H 16 98 04/27/22 17:04 94 H 22 98 04/27/22 17:02 97 H 21 98 04/27/22 17:00 104 H 21 98 04/27/22 16:58 92 H 18 98 04/27/22 16:56 98 H 19 99 04/27/22 16:54 96 H 16 97 04/27/22 16:52 100 H 18 97 04/27/22 16:50 104 H 18 97 04/27/22 16:48 96 H 22 97 04/27/22 16:46 99 H 18 98 04/27/22 16:44 95 H 18 95 04/27/22 16:42 102 H 16 98 04/27/22 16:40 100 H 20 97 04/27/22 16:38 109 H 19 100 04/27/22 16:36 92 H 19 98 04/27/22 16:34 106 H 26 H 98 04/27/22 16:32 103 H 24 95 04/27/22 16:30 101 H 20 98 04/27/22 16:28 107 H 21 98 04/27/22 16:26 93 H 19 98 04/27/22 16:24 100 H 24 95 04/27/22 16:22 101 H 19 95 04/27/22 16:20 111 H 19 99 04/27/22 16:18 107 H 24 100 04/27/22 16:16 115 H 16 100 04/27/22 16:15 88 122/66 98 04/27/22 16:14 98 H 16 100 04/27/22 16:12 96 H 18 100 04/27/22 16:10 106 H 19 99 04/27/22 16:08 94 H 22 100 04/27/22 16:06 83 13 99 04/27/22 16:04 88 16 100 04/27/22 16:02 83 18 100 04/27/22 16:00 101.1 F H 91 H 86 13 100 04/27/22 15:59 88 04/27/22 15:48 99.8 F H 04/27/22 15:30 89 24 99 04/27/22 15:00 89 18 98 04/27/22 14:30 97 H 21 98 04/27/22 14:00 90 22 99 04/27/22 13:30 93 H 15 94 04/27/22 13:00 94 H 13 99 04/27/22 12:30 96 H 18 98 04/27/22 12:07 97 H 34 H 118/68 98 04/27/22 12:00 97 H 96 H 17 98 04/27/22 11:40 101.5 F H 04/27/22 11:30 98 H 17 97 04/27/22 11:00 103 H 26 H 97 04/27/22 10:30 108 H 22 96 04/27/22 10:00 99 H 21 97 - Physical Examination General: Other (Patient is intubated, sedated, on the vent) HEENT: Positive: EOMI Neck: Positive: neck supple Cardiac: Positive: irregularly irregular, S1/S2. Negative: Audible Murmur Lungs: Positive: clear to auscultation (Anterior), Decreased Breath Sounds Neuro: Positive: Grossly Intact, Other (Intubated, sedated on the vent, unable to assess) Abdomen: Positive: Soft Skin: Positive: Rash (On the left hand which is dressed), Other (Blisters on the right hand) Extremities: Present: edema (Trace) - Labs and Meds Lipids 04/28/22 Range/Units 05:28 Triglycerides 99 (2-149) mg/dL CBC 04/28/22 Range/Units 05:28 WBC 16.1 H (4.5-11.0) K/mm3 RBC 3.32 L (3.65-5.03) M/mm3 Hgb 9.4 L (11.8-15.2) gm/dl Hct 29.9 L (35.5-45.6) % Plt Count 436 (140-440) K/mm3 Comprehensive Metabolic Panel 04/28/22 Range/Units 05:28 Sodium 141 (137-145) mmol/L Potassium 3.7 (3.6-5.0) mmol/L Chloride 101.9 (98-107) mmol/L Carbon Dioxide 28 (22-30) mmol/L BUN 22 H (9-20) mg/dL Creatinine 1.4 H (0.8-1.3) mg/dL Glucose 179 H (75-100) mg/dL Calcium 8.2 L (8.4-10.2) mg/dL - Telemetry EKG Rhythm: Atrial Fibrillation - Allied health notes Allied health notes reviewed: RT
[2022-04-28] MEDS ORDERED: HALOPERIDOL LACTATE 5 MG/1 ML INJ ONE (11:28)
[2022-04-28] MEDS ORDERED: ETOMIDATE 20 MG/10 ML INJ IV ONE ×2 (11:33→12:00)
[2022-04-28] MEDS ORDERED: ROCURONIUM 50 MG/5 ML INJ IV ONE ×2 (11:33→12:00)
[2022-04-28] MEDS ORDERED: FUROSEMIDE 40 MG/4 ML INJ ONE (11:33)
--- NOTE | 2022-04-28 11:53 | Progress Note ---
<ANDIE MARIANO - Last Filed: 04/28/22 17:44> Assessment and Plan Assessment and plan: This is a 61-year-old male with known past medical history of obsesity, DM, HTN, and Atrial fibrillation s/p cardioversion over 12hrs ago, unclear if patient was on AC at home admitted s/p outside of the hospital cardiac arrest/V-fib arrest with ROSC. Hospital Course to Date: 04/18: Severely acidotic this am, now on bcarb gtt. On high dose pressors- Levophed and Vaso. Afib in control rate on the monitor, on Amiodarone and heparin gtt per protocol. Cardiology is following. Patient remains afebrile and leukocytosis improved this am. Now with worsen renal function and low UOP. Patient's EF is 25 to 30%, Dobutamine gtt initiated. Continue current IV abx, continue to trend troponin and lactic acid. Nephrology also consulted for further recs. BLE swelling noted, BLE doppler ordered to r/o DVT. 04/19: Agitation with low SPO2 overnight, sedation increased. This am ABG with worsen hypoxia on 40% Fio2, SPO2 at 90% this am. Fio2 increased to 50%, SPO2 improved above 92%. Remains on multiple pressors and bcarb gtt. Now on dopamine gtt, in Afib with RVR on the monitor. Still on Amiodarone and heparin gtts. Echo noted, EF 15 to 20%. Cardiology is following. With worsen renal function, however making urine this am. No indication for [employer] at this per Nephro. Will continue to monitor. Monitor and replace electrolytes as needed 04/20: Nephrology spoke to at bedside re HD, cardiology will proceed with [facility] if patient is to recieve HD post procedure, vent changes per [facility], Sedated with fentanyl and propofol with heparin and amio gtt infusing. 04/21: LHC today. Nephrology will continue IVF and if renal function worsens then will proceed HD with consent from family. Patient became hypoxic with FiO2 at 40% yesterday evening and is currently at 65%. 04/22: Patient was started on vasopressin IV fluids yesterday and his creatinine decreased from 4.2 to 2.9. Patient severely agitated while on propofol and fentanyl. Started low-dose Seroquel and started to wean propofol as tolerated. Patient does follow commands today. Increase in lantus. IV fluids decreased, started on dobutamine per CCM and wean vasopressin for target MAP of 65-70 and SBP greater than 110 04/23: This morning patient being extremely hypertensive with SBP into 200s and given metoprolol. Rn asked to wean propofol as tolerated. Dobutamine decreased to 2.5. Cr improved. US chest completed and showed no pleural effusions. This afternoon alerted by RN that RT believes pt bite through his tube and anesthesia was called to bedside for tube exchange. Decision was made to extubate and reintubate the patient. CXR ordered. 04/24: Patient placed on CPAP trial. Renal numbers look better today. Cardiology would like to try digoxin. No acute events reported overnight. 04/25: Patient now with hypernatremia, slightly increased renal function today but still putting out over 1 L urine over the past 24 hours. Will increase free water flushes and repleate potassium cautiously. Cardilogy will like to continue current management. PSV when able 04/26: Cardiology will increase amiodarone due to heart rate being in the 110s to 120s and will hold off digoxin, remains on dobutamine drip. Hypernatremia improving. Remains on D5 W per nephrology. PSV this AM. Rash noted to trunk, arms, chest. RN to hold off Seroquel. Started on IV Benadryl. Already n.p.o. famotidine. Updated [place] physician who also informed me that the patient is allergic to lisinopril (angioedema) 04/27: Tolerating PSV trail this am on low dose sedation. Per CCM, plan to wean vent setting for possible extubation. If patient requires higher dose of sedation, will add precedex gtt for trial to wean off sedation. Patient with low grade fevers with worsening leukopcytosis, B.cultures from yesterday with NGTD. Will do a lines vacations, D/C CVC and penn. Patient is hemodynamically stable, will continue to monitor for now. Patient is also net positive balance since admit, hypernatremia resolved, and renal function improved, will decrease IVF fo r now. Nephrology is also following. 04/28: Self-extubated this afternoon, requiring emergent reintubation. Flash pulmonary edema noted during intubation, X1 dose of IV lasix administered. Currently hypertensive and Afib with RVR, HR in the 110-130s, sedations resumed. Persistent fevers overnight with leukocytosis, repeat blood culture with no growth. Orders placed for UA and repeat sputum culture. Empiric IV Abx, Cefepine and vanc initiated. ID was also consulted. Continue vent wean/adjustment per CCM. Penn was reinserted overnight due to retention, will reassess in the next 24hrs to 48hrs. Assessment and Plan #Cardiogenic Shock #S/p Cardiac Arrest/V-Fib Arrest with ROSC #NSTEMI #H/o Atrial Fibrillation, HTN - Found in the bathroom unresponsive [place]. - EMS found patient in V-Fib arrest treated per ACLS ROSC achieved - Positive troponinX3, EKG with no significant ST changes - s/p Dopamine and Dobutamine gtts - Afib control on the monitor, HR 90-100d - 2D echo reviewed. EF 15 to 20% - [facility] severe nonischemic cardiomyopathy with patent coronary arteries, which per cardiology presumably resulted in a primary cardiac arrest. - On PO Amio - Continue blood pressure monitor per protocol - Maintain MAP above 65 and SBP less than 160 #Acute Hypoxemic Respiratory Failure - Intubated in the filed during code on 04/17 - [id number] this afternoon, requiring emergent reintubation - Vent setting: PRBC-100,10,16,500 - Post intubation ABG pending - Flash pulmonary edema noted during intubattion X1 dose of IV lasix - CCM consulted, appreciate recommendations - Continue vent adjustement per CCM - VAP bundle addressed - Aspiration precaution HOB above 30 - Daily SBT and SAT trials as tolerated - Daily ABG and CXR - Continue SPO2 monitoring for SPO2 goal above 92% - Per CCM, plan to wean vent setting for possible extubation. #Acute Metabolic Encephalopathy-improved #Agitation #Face Contusion s/p Fall-improved - Found in the bathroom unresponsive at a [place] facility. Most likely fell and hit his head - CT head reviewed, no acute intracranial abnormality - While awake on sedations, on low dose propofol - Tolerating PSV trial. - If patient requires higher dose of sedation, will add precedex gtt for trial to wean off sedation. - Daily SAT and SBT per [facility] - Avoid benzodiazepine to reduce the possibility of delirium - PRN Analgesia CPOT greater than 3 - Maintenance of sleep-wake cycle #Acute Kidney Injury(VINCENT) most likely ATN #Hypernatrmia #Hypekalemia-resolved - secondary to above. hypoperfusion/hypotension - Patient also received IV contrast - Baseline renal function is unknown - Hypernatremia and renal function improved - Nephrology on consult, appreciated recommendation - IVF D/[place]. X1 dose of IV lasix, flash pulmonary edema noted during intubation - Strict intake and output - Avoid nephrotoxic medications; Renally dose medications - Penn in place with adequate UOP - Monitor and replace electrolytes as needed - Continue FWF #Fevers #Leukocytosis #Bilateral Pneumonia #Probably Aspiration Pneumonia #Severe Metabolic Acidosis-resolved - Imaging reveals bilateral airspace disease, greater in the Upper lobs. Most likely aspiration - With persistent febrile and leukocytosis - UA with elevated WBCs - Blood culture with NGTD, Sputum pending - Empiric IV Abx initiated, ID consulted - F/U on cultures - Daily CBC monitor #Transaminitis #Shock Liver-improved - most likely reactive from above/hypoperfusion - Close monitoring of LFTs, now on amiodarone gtt - Trend LFTs #Elevated D-Dimer - CTA chest with no evidence of PE - With BLE swelling- BLE doppler pending - On Heparin #Type 2 Diabetes Mellitus - Hgb A1C pending - BG check and SSI Q6hrs - Avoid hypoglycemia #GI/DVT Prophylaxis - PPI- Pepcid - Heparin SubQ - SCDs to bilateral lower extremities while in bed #Advance Care Planning - Disease education data, care plan, diagnoses, and prognosis were discussed wit h patient's at the bedside. Patient is a FULL code. Patient's acknowledged understanding and agreed with current care plan. The high probability of a clinically significant, sudden or life threatening deterioration of the [multiple] system(s) required my full and direct attention, intervention and personal management. The aggregate critical care time was [90] minutes. This time is in addition to time spent performing reported procedures but includes the following: [x] Data Review and interpretation [x] Patient assessment and monitoring of vital signs [x] Documentation [x] Medication orders and management Disposition Plan: ICU Total Time Spent with Patient (Minutes): 90 History Interval history: Patient seen and examined at the bedside. Self-extubated this afternoon, requiring emergent reintubation. Flash pulmonary edema noted during intubation, X1 dose of IV lasix administered. Currently hypertensive and Afib with RVR, HR in the 110-130s. Sedations resumed. Penn was reinserted overnight due to retention Hospitalist Physical - Constitutional Vitals: Temp Pulse Resp BP Pulse Ox 102.4 F H 102 H 23 103/51 98 04/28/22 07:17 04/28/22 10:30 04/28/22 10:30 04/28/22 07:49 04/28/22 10:30 General appearance: Present: no acute distress, other (Intubated and Sedated) - EENT Eyes: Present: PERRL - Neck Neck: Present: normal ROM - Respiratory Respiratory effort: labored Respiratory: bilateral: rhonchi - Cardiovascular Rhythm: irregularly irregular Heart Sounds: Present: S1 & S2 - Extremities Extremities: no ischemia, pulses intact, pulses symmetrical Extremity abnormal: edema - Peripheral Assessment Bilateral Upper Extremity Edema Type: Pitting Edema Degree: 3+ Capillary Refill: < 3 seconds Skin Temperature: Warm Generalized Edema Type: Pitting Edema Degree: 2+ Capillary Refill: < 3 seconds Skin Temperature: Warm Peripheral Pulses: within normal limits - Abdominal General gastrointestinal: soft, non-distended, normal bowel sounds - Integumentary Integumentary: Present: warm, dry - Psychiatric Psychiatric: other (Intubated and sedated) - Neurologic Neurologic: other (Intubated and sedated) - Allied Health Allied health notes reviewed: nursing, case management HEART Score - HEART Score Troponin: Troponin T 2.980 ng/mL (0.00-0.029) H* 04/19/22 07:11 Results - Labs CBC & Chem 7: 04/28/22 05:28 04/28/22 05:28 Labs: Laboratory Last Values WBC 16.1 K/mm3 (4.5-11.0) H 04/28/22 05:28 RBC 3.32 M/mm3 (3.65-5.03) L 04/28/22 05:28 Hgb 9.4 gm/dl (11.8-15.2) L 04/28/22 05:28 Hct 29.9 % (35.5-45.6) L 04/28/22 05:28 MCV 90 fl (84-94) 04/28/22 05:28 MCH 28 pg (28-32) 04/28/22 05:28 MCHC 32 % (32-34) 04/28/22 05:28 RDW 14.9 % (13.2-15.2) 04/28/22 05:28 Plt Count 436 K/mm3 (140-440) 04/28/22 05:28 Lymph % (Auto) 5.9 % (13.4-35.0) L 04/27/22 04:00 [place] % (Auto) 8.0 % (0.0-7.3) H 04/27/22 04:00 Eos % (Auto) 5.5 % (0.0-4.3) H 04/27/22 04:00 Baso % (Auto) 0.3 % (0.0-1.8) 04/27/22 04:00 Lymph # (Auto) 1.2 K/mm3 (1.2-5.4) 04/27/22 04:00 [place] # (Auto) 1.6 K/mm3 (0.0-0.8) H 04/27/22 04:00 Eos # (Auto) 1.1 K/mm3 (0.0-0.4) H 04/27/22 04:00 Baso # (Auto) 0.1 K/mm3 (0.0-0.1) 04/27/22 04:00 Add Manual Diff Complete 04/23/22 04:19 Total Counted 100 04/23/22 04:19 Seg Neutrophils % 80.3 % (40.0-70.0) H 04/27/22 04:00 Seg Neuts % (Manual) 74.0 % (40.0-70.0) H 04/23/22 04:19 Band Neutrophils % 2.0 % 04/23/22 04:19 Lymphocytes % (Manual) 10.0 % (13.4-35.0) L 04/23/22 04:19 Reactive Lymphs % (Man) 0 % 04/23/22 04:19 Monocytes % (Manual) 7.0 % (0.0-7.3) 04/23/22 04:19 Eosinophils % (Manual) 7.0 % (0.0-4.3) H 04/23/22 04:19 Basophils % (Manual) 0 % (0.0-1.8) 04/23/22 04:19 Metamyelocytes % 0 % 04/23/22 04:19 Myelocytes % 0 % 04/23/22 04:19 Promyelocytes % 0 % 04/23/22 04:19 Blast Cells % 0 % 04/23/22 04:19 Nucleated RBC % Not Reportable 04/23/22 04:19 Seg Neutrophils # 16.2 K/mm3 (1.8-7.7) H 04/27/22 04:00 Seg Neutrophils # Man 8.0 K/mm3 (1.8-7.7) H 04/23/22 04:19 Band Neutrophils # 0.2 K/mm3 04/23/22 04:19 Lymphocytes # (Manual) 1.1 K/mm3 (1.2-5.4) L 04/23/22 04:19 Abs React Lymphs (Man) 0.0 K/mm3 04/23/22 04:19 Monocytes # (Manual) 0.8 K/mm3 (0.0-0.8) 04/23/22 04:19 Eosinophils # (Manual) 0.8 K/mm3 (0.0-0.4) H 04/23/22 04:19 Basophils # (Manual) 0.0 K/mm3 (0.0-0.1) 04/23/22 04:19 Metamyelocytes # 0.0 K/mm3 04/23/22 04:19 Myelocytes # 0.0 K/mm3 04/23/22 04:19 Promyelocytes # 0.0 K/mm3 04/23/22 04:19 Blast Cells # 0.0 K/mm3 04/23/22 04:19 WBC Morphology Not Reportable 04/23/22 04:19 Hypersegmented Neuts Not Reportable 04/23/22 04:19 Hyposegmented Neuts Not Reportable 04/23/22 04:19 Hypogranular Neuts Not Reportable 04/23/22 04:19 Smudge Cells Not Reportable 04/23/22 04:19 Toxic Granulation Not Reportable 04/23/22 04:19 Toxic Vacuolation Not Reportable 04/23/22 04:19 Dohle Bodies Not Reportable 04/23/22 04:19 Pelger-Huet Anomaly Not Reportable 04/23/22 04:19 Regla Rods Not Reportable 04/23/22 04:19 Platelet Estimate Consistent w auto 04/23/22 04:19 Clumped Platelets Not Reportable 04/23/22 04:19 Plt Clumps, EDTA Not Reportable 04/23/22 04:19 Large Platelets Not Reportable 04/23/22 04:19 Giant Platelets Not Reportable 04/23/22 04:19 Platelet Satelliting Not Reportable 04/23/22 04:19 Plt Morphology Comment Not Reportable 04/23/22 04:19 RBC Morphology Not Reportable 04/23/22 04:19 Dimorphic RBCs Not Reportable 04/23/22 04:19 Polychromasia Not Reportable 04/23/22 04:19 Hypochromasia Not Reportable 04/23/22 04:19 Poikilocytosis Not Reportable 04/23/22 04:19 Anisocytosis Not Reportable 04/23/22 04:19 Microcytosis Not Reportable 04/23/22 04:19 Macrocytosis Not Reportable 04/23/22 04:19 Spherocytes Not Reportable 04/23/22 04:19 Pappenheimer Bodies Not Reportable 04/23/22 04:19 Sickle Cells Not Reportable 04/23/22 04:19 Target Cells Not Reportable 04/23/22 04:19 Tear Drop Cells Not Reportable 04/23/22 04:19 Ovalocytes Not Reportable 04/23/22 04:19 Helmet Cells Not Reportable 04/23/22 04:19 [place] Bodies Not Reportable 04/23/22 04:19 [place] Rings Not Reportable 04/23/22 04:19 [place] Cells Not Reportable 04/23/22 04:19 Bite Cells Not Reportable 04/23/22 04:19 Crenated Cell Not Reportable 04/23/22 04:19 Elliptocytes Not Reportable 04/23/22 04:19 Acanthocytes (Spur) Not Reportable 04/23/22 04:19 Rouleaux Not Reportable 04/23/22 04:19 Hemoglobin C Crystals Not Reportable 04/23/22 04:19 Schistocytes Not Reportable 04/23/22 04:19 Malaria parasites Not Reportable 04/23/22 04:19 [place] Bodies Not Reportable 04/23/22 04:19 Hem Pathologist Commnt No 04/23/22 04:19 PT 15.6 Sec. (12.2-14.9) H 04/18/22 Unknown INR 1.08 (0.87-1.13) 04/18/22 Unknown APTT 28.6 Sec. (24.2-36.6) 04/18/22 Unknown Activated Coag Time 179 (74-137) H 04/21/22 12:14 Heparin Anti-Xa Level 0.16 U.I./ml (0.3-0.7) L 04/21/22 04:00 ABG pH 7.489 pH Units (7.350-7.450) H 04/28/22 05:25 ABG pCO2 37.5 mm Hg 04/28/22 05:25 ABG pO2 72.5 mm Hg (80.0-90.0) L 04/28/22 05:25 ABG HCO3 27.8 mmol/L (20.0-26.0) H 04/28/22 05:25 ABG O2 Saturation 96.6 % (95.0-99.0) 04/28/22 05:25 ABG O2 Content 12.4 (0.0-44) 04/28/22 05:25 ABG Base Excess 4.3 mmol/L (-2.0-3.0) H 04/28/22 05:25 ABG Hemoglobin 9.2 gm/dl (14.0-18.0) L 04/28/22 05:25 ABG Carboxyhemoglobin 1.6 % (0.0-5.0) 04/28/22 05:25 ABG Methemoglobin 0.4 % (0.0-1.5) 04/28/22 05:25 Oxyhemoglobin 94.6 % (95.0-99.0) L 04/28/22 05:25 FiO2 35 % 04/28/22 05:25 Sodium 141 mmol/L (137-145) 04/28/22 05:28 Potassium 3.7 mmol/L (3.6-5.0) 04/28/22 05:28 Chloride 101.9 mmol/L (98-107) 04/28/22 05:28 Carbon Dioxide 28 mmol/L (22-30) 04/28/22 05:28 Anion Gap 15 mmol/L 04/28/22 05:28 BUN 22 mg/dL (9-20) H 04/28/22 05:28 Creatinine 1.4 mg/dL (0.8-1.3) H 04/28/22 05:28 Estimated GFR > 60 ml/min 04/28/22 05:28 BUN/Creatinine Ratio 16 % 04/28/22 05:28 Glucose 179 mg/dL (75-100) H 04/28/22 05:28 POC Glucose 131 mg/dL (70-105) H 04/28/22 11:13 Lactic Acid 1.90 mmol/L (0.7-2.0) 04/21/22 04:20 Calcium 8.2 mg/dL (8.4-10.2) L 04/28/22 05:28 Phosphorus 3.30 mg/dL (2.5-4.5) 04/28/22 05:28 Magnesium 1.70 mg/dL (1.7-2.3) 04/28/22 05:28 Total Bilirubin 0.60 mg/dL (0.1-1.2) 04/27/22 04:00 AST 45 units/L (5-40) H 04/27/22 04:00 ALT 53 units/L (7-56) 04/27/22 04:00 Alkaline Phosphatase 180 units/L (35-129) H 04/27/22 04:00 Total Creatine Kinase 973 units/L (55-170) H 04/22/22 04:00 CK-MB (CK-2) 28.5 ng/mL (0.0-4.0) H 04/19/22 07:11 CK-MB (CK-2) Rel Index 0.8 (0-4) 04/19/22 07:11 Troponin T 2.980 ng/mL (0.00-0.029) H* 04/19/22 07:11 C-Reactive Protein 15.30 mg/dL (0.00-1.30) H 04/28/22 08:20 Total Protein 6.4 g/dL (6.3-8.2) 04/27/22 04:00 Albumin 2.1 g/dL (3.9-5) L 04/27/22 04:00 Albumin/Globulin Ratio 0.5 % 04/27/22 04:00 Triglycerides 99 mg/dL (2-149) 04/28/22 05:28 Cholesterol 106 mg/dL (50-199) 04/17/22 19:56 LDL Cholesterol Direct 57 mg/dL (50-130) 04/17/22 19:56 HDL Cholesterol 40 mg/dL (40-59) 04/17/22 19:56 Cholesterol/HDL Ratio 2.65 % 04/17/22 19:56 Procalcitonin 44.70 ng/mL (<0.15) 04/22/22 04:32 Urine Color Straw (Yellow) 04/28/22 08:35 Urine Turbidity Clear (Clear) 04/28/22 08:35 Urine pH 6.0 (5.0-7.0) 04/28/22 08:35 Ur Specific Mathias 1.000 (1.003-1.030) L 04/28/22 08:35 Urine Protein 300 mg/dl mg/dL (Negative) 04/28/22 08:35 Urine Glucose (UA) Negative mg/dL (Negative) 04/28/22 08:35 Urine Ketones Negative mg/dL (Negative) 04/28/22 08:35 Urine Blood 3+ (Negative) 04/28/22 08:35 Urine Nitrite Negative (Negative) 04/28/22 08:35 Ur Reducing Substances Not Reportable 04/28/22 08:35 Urine Bilirubin Negative (Negative) 04/28/22 08:35 Urine Ictotest Not Reportable 04/28/22 08:35 Urine Urobilinogen < 2.0 mg/dL (<2.0) 04/28/22 08:35 Ur Leukocyte Esterase Small (Negative) 04/28/22 08:35 Urine WBC (Auto) 21.0 /HPF (0.0-6.0) H 04/28/22 08:35 Urine RBC (Auto) 9.0 /HPF (0.0-6.0) 04/28/22 08:35 Urine Bacteria (Auto) 2+ /HPF (Negative) 04/19/22 02:08 Urine WBC Clumps 3+ /HPF 04/19/22 02:08 RBC Casts 34 /LPF 04/19/22 02:08 Urine Mucus Few /HPF 04/28/22 08:35 Urine Yeast (Budding) 3+ /HPF 04/19/22 02:08 Urine Eosinophils None seen (None Seen) 04/19/22 02:08 Urine Creatinine 90.9 mg/dL (0.1-20.0) H 04/19/22 02:08 Urine Sodium 54 mmol/L 04/19/22 02:08 Blood Type A POSITIVE 04/21/22 04:37 Antibody Screen Negative 04/21/22 04:37 Microbiology: Microbiology 04/26/22 08:57 Peripheral/Venous Blood Culture - Preliminary NO GROWTH AFTER 48 HOURS 04/26/22 05:20 Peripheral/Venous Blood Culture - Preliminary NO GROWTH AFTER 48 HOURS 04/26/22 05:20 Urine,[place] Urine Culture - Preliminary NO GROWTH AFTER 24 HOURS Penn/IV: Voiding Method Indwelling Catheter Active Medications - Current Medications Current Medications: Generic Name Dose Route Start Last Admin Trade Name Freq PRN Reason Stop Dose Admin Acetaminophen 650 mg 04/17/22 19:48 04/28/22 05:29 Acetaminophen 325 Mg Tab PO 650 mg Q6H PRN Administration Pain MILD(1-3)/Fever >100.5/CHE Albuterol 2.5 mg 04/17/22 19:48 Albuterol 2.5 Mg/3 Ml Nebu IH Q3HRT PRN Shortness Of Breath Amiodarone HCl 400 mg 04/26/22 22:00 04/28/22 09:48 Amiodarone 200 Mg Tab PO 400 mg BID FLACO Administration Aspirin 81 mg 04/20/22 12:00 04/28/22 09:48 Aspirin 81 Mg Tab Chew FEEDTUBE 81 mg QDAY FLACO Administration Atorvastatin Calcium 20 mg 04/20/22 22:00 04/27/22 21:20 Atorvastatin 20 Mg Tab FEEDTUBE 20 mg QHS FLACO Administration Dextrose 0 ml 04/17/22 23:46 Dextrose 50% In Water (25gm) 50 Ml Syringe IV Q30MIN PRN Hypoglycemia Protocol Docusate Sodium 100 mg 04/27/22 11:00 04/28/22 09:48 Docusate Sodium 100 Mg/10 Ml Oral Liqd FEEDTUBE 100 mg BID FLACO Administration Etomidate 20 mg 04/28/22 12:00 Etomidate 20 Mg/10 Ml Inj IV 04/28/22 12:01 ONCE ONE Famotidine 20 mg 04/27/22 10:00 04/28/22 09:48 Famotidine 20 Mg Tab FEEDTUBE 20 mg BID FLACO Administration Fentanyl 50 mcg 04/17/22 20:22 04/18/22 03:52 Fentanyl 100 Mcg/2 Ml Inj IV 50 mcg Q10MIN PRN Administration ANALGESIA Furosemide 40 mg 04/28/22 12:00 Furosemide 40 Mg/4 Ml Inj IV 04/28/22 12:01 ONCE ONE Haloperidol Lactate 5 mg 04/28/22 12:00 Haloperidol Lactate 5 Mg/1 Ml Inj IV 04/28/22 12:01 ONCE ONE Heparin Sodium (Porcine) 5,000 unit 04/21/22 22:00 04/28/22 09:48 Heparin 5,000 Unit/1 Ml Vial SUB-Q 5,000 unit Q12HR FLACO Administration Hydrophilic Ointment 1 applic 04/18/22 06:02 04/26/22 20:29 Lip Therapy Vaseline TP 1 applic Q2HR PRN Administration Dry Lips Fentanyl Citrate 2,000 mcg in 100 mls @ 5.443 mls/hr 04/17/22 21:00 04/27/22 15:33 Fentanyl Drip Premix IV Infused TITR FLACO Titration Protocol 1 MCG/KG/HR Propofol 1,000 mg in 100 mls @ 3.456 mls/hr 04/18/22 07:00 04/28/22 09:07 Diprivan 10 Mg/Ml IV 0 mcg/kg/min TITR FLACO 0 mls/hr Titration Protocol 5 MCG/KG/MIN Magnesium Sulfate 2 gm in 50 mls @ 25 mls/hr 04/28/22 08:00 04/28/22 08:42 Magnesium Sulfate 2gm/50ml IV 04/28/22 12:00 25 mls/hr ONCE@0800 FLACO Administration Cefepime HCl 2 gm in 100 mls @ 200 mls/hr 04/28/22 08:00 04/28/22 08:42 Cefepime/Ns 2 Gm/100 Ml IV 200 mls/hr Q8H FLACO Administration Protocol Vancomycin HCl 1,750 mg/ 535 mls @ 333.333 mls/hr 04/28/22 10:00 04/28/22 09:49 Sodium Chloride IV 333.333 mls/hr Q24H FLACO Administration Dexmedetomidine HCl 400 mcg/ 104 mls @ 5.99 mls/hr 04/28/22 11:00 04/28/22 10:52 Sodium Chloride IV 0.7 mcg/kg/hr TITRATE FLACO 20.966 mls/hr Administration Protocol 0.2 MCG/KG/HR Insulin Glargine 50 units 04/26/22 22:00 04/27/22 21:19 Insulin Glargine 100 Units/Ml SUB-Q 50 units QHS FLACO Administration Insulin Human Lispro 0 unit 04/18/22 00:00 04/28/22 05:56 Insulin Lispro 100 Unit/Ml SUB-Q 3 unit Q6HR FLACO Administration Protocol Insulin Human Lispro 8 unit 04/26/22 12:00 04/28/22 05:56 Insulin Lispro 100 Unit/Ml SUB-Q 8 unit Q6HR FLACO Administration Multi-Ingred Cream/Lotion/Oil/Oint 1 applic 04/18/22 06:02 Mineral Oil/Petrolatum, White Ophth Oint 3.5 Gm OU Q4HR PRN Dry Eye(s) Oxycodone/Acetaminophen 1 tab 04/22/22 11:05 Oxycodone /Acetaminophen 5-325mg Tab FEEDTUBE Q6H PRN Pain, Moderate (4-6) Rocuronium [place] 50 mg 04/28/22 12:00 Rocuronium 50 Mg/5 Ml Inj IV 04/28/22 12:01 ONCE ONE Senna/Docusate Sodium 2 tab 04/28/22 10:00 Sennosides/Docusate Sodium 8.6/50 Mg Tab FEEDTUBE BID FLACO Sodium Chloride 10 ml 04/17/22 22:00 04/27/22 21:22 Sodium Chloride 0.9% 10 Ml Flush Syringe IV 10 ml BID FLACO Administration Sodium Chloride 10 ml 04/17/22 19:48 Sodium Chloride 0.9% 10 Ml Flush Syringe IV PRN PRN LINE FLUSH Nutrition/Malnutrition Assess - Dietary Evaluation Nutrition/Malnutrition Findings: Nutrition Notes Start: 04/18/22 08:52 Freq: Status: Active Protocol: Document 04/22/22 10:36 ROMELIA (Rec: 04/22/22 10:49 ROMELIA [id number]) Nutrition Notes Initial or Follow up Brief Note Current Diagnosis Acute Kidney Injury,Diabetes, Sepsis,Hypertension, Respiratory Failure Other Pertinent Diagnosis s/p PEA w/ROSC, HFrEF, Pneumonia, Metabolic Acidosis, Cardiogenic Shock, .. Current Diet TF-Nepro w/CARBSTEADY @ 35 ml/ hr (from D 04/21). Height 5 ft 9 in Weight 115.2 kg [place] Body Weight (kg) 72.72 BMI 37.5 Weight change and time frame No body weight change reported in 4 days. Weight Status Obese Subjective/Other Information RD consult for TF tolerance/ continuation assessment. TF continues as prescribed, no further information available at the time. Pt continues on Mechanical Ventilation, O2 saturation @ 95%, according to Physical Assessment History notes. Percent of energy/protein needs met: Prescribed TF-Nepro w/ CARBSTEADY @ 35 ml/hr provides for energy/protein needs (1, 500 Kcal/68 g) during LOS, 77% Kcal; 90% AA. Including 365 Kcal from Propofol: 95% Kcal; 90% AA. #2 Nutrition Diagnosis Altered nutrition-related laboratory values Comments: Prescribed TF-Nepro w/ CARBSTEADY @ 35 ml/hr provides for energy/protein needs (1, 500 Kcal/68 g) during LOS, 77% Kcal; 90% AA. Including 365 Kcal from Propofol: 95% Kcal; 90% AA. Diagnosis Progress(for reassessment Resolved documentation) #1 Nutrition Diagnosis Inadequate oral intake Diagnosis Progress(for reassessment Continues documentation) Is patient on ventilator? Yes Is Patient Ambulatory and/or Out of Bed No REE-([place] [facility]-confined to bed) 2323.608 Kcal/Kg value to use for calculation 17 Approximate Energy Requirements Using 1958 kcal/Kg Calculation Used for Recommendations Kcal/kg Additional Notes Protein: 0.8-1.2 g/Kg AdjBW; 75-113 g/day. Fluids: 1 ml/Kcal, or as per MD. Nutrition Intervention Nutrition Support: Continue TF-Nepro w/CARBSTEADY @ 35 ml/hr. Flush: 220 ml water Q 4 hr, or as per MD. Kcal 1,500 Protein (gm) 68 Carbohydrates (gm) 134 Fat (gm) 80 Fluid (mL) 606 Fiber (gm) 11 % RDI: 77% Kcal; 90% AA. Goal #1 Provide at least 75% of energy /protein needs through Enteral Feeding during LOS. Follow-Up By: 04/29/22 Additional Comments Continue monitoring TF tolerance, ventilation status, vasopressors, and BM. <GABRIELE HUFF - Last Filed: 04/29/22 07:43> Assessment and Plan Assessment and plan: I saw and evaluated the patient. I agree with the findings and the plan of care as documented in the Nurse Practitioner's~note, with the following corrections and additions. Hospitalist Physical - Constitutional Vitals: Temp Pulse Resp BP Pulse Ox 99.6 F 84 21 122/76 100 04/29/22 04:00 04/29/22 07:00 04/29/22 07:00 04/29/22 07:00 04/29/22 07:00 HEART Score - HEART Score Troponin: Troponin T 2.980 ng/mL (0.00-0.029) H* 04/19/22 07:11 Results - Labs CBC & Chem 7: 04/29/22 04:20 04/29/22 04:20 Labs: Laboratory Last Values WBC 19.8 K/mm3 (4.5-11.0) H 04/29/22 04:20 RBC 3.17 M/mm3 (3.65-5.03) L 04/29/22 04:20 Hgb 9.0 gm/dl (11.8-15.2) L 04/29/22 04:20 Hct 27.9 % (35.5-45.6) L 04/29/22 04:20 MCV 88 fl (84-94) 04/29/22 04:20 MCH 29 pg (28-32) 04/29/22 04:20 MCHC 32 % (32-34) 04/29/22 04:20 RDW 15.1 % (13.2-15.2) 04/29/22 04:20 Plt Count 481 K/mm3 (140-440) H 04/29/22 04:20 Lymph % (Auto) 5.7 % (13.4-35.0) L 04/29/22 04:20 [place] % (Auto) 7.8 % (0.0-7.3) H 04/29/22 04:20 Eos % (Auto) 3.9 % (0.0-4.3) 04/29/22 04:20 Baso % (Auto) 0.6 % (0.0-1.8) 04/29/22 04:20 Lymph # (Auto) 1.1 K/mm3 (1.2-5.4) L 04/29/22 04:20 [place] # (Auto) 1.5 K/mm3 (0.0-0.8) H 04/29/22 04:20 Eos # (Auto) 0.8 K/mm3 (0.0-0.4) H 04/29/22 04:20 Baso # (Auto) 0.1 K/mm3 (0.0-0.1) 04/29/22 04:20 Add Manual Diff Complete 04/23/22 04:19 Total Counted 100 04/23/22 04:19 Seg Neutrophils % 82.0 % (40.0-70.0) H 04/29/22 04:20 Seg Neuts % (Manual) 74.0 % (40.0-70.0) H 04/23/22 04:19 Band Neutrophils % 2.0 % 04/23/22 04:19 Lymphocytes % (Manual) 10.0 % (13.4-35.0) L 04/23/22 04:19 Reactive Lymphs % (Man) 0 % 04/23/22 04:19 Monocytes % (Manual) 7.0 % (0.0-7.3) 04/23/22 04:19 Eosinophils % (Manual) 7.0 % (0.0-4.3) H 04/23/22 04:19 Basophils % (Manual) 0 % (0.0-1.8) 04/23/22 04:19 Metamyelocytes % 0 % 04/23/22 04:19 Myelocytes % 0 % 04/23/22 04:19 Promyelocytes % 0 % 04/23/22 04:19 Blast Cells % 0 % 04/23/22 04:19 Nucleated RBC % Not Reportable 04/23/22 04:19 Seg Neutrophils # 16.3 K/mm3 (1.8-7.7) H 04/29/22 04:20 Seg Neutrophils # Man 8.0 K/mm3 (1.8-7.7) H 04/23/22 04:19 Band Neutrophils # 0.2 K/mm3 04/23/22 04:19 Lymphocytes # (Manual) 1.1 K/mm3 (1.2-5.4) L 04/23/22 04:19 Abs React Lymphs (Man) 0.0 K/mm3 04/23/22 04:19 Monocytes # (Manual) 0.8 K/mm3 (0.0-0.8) 04/23/22 04:19 Eosinophils # (Manual) 0.8 K/mm3 (0.0-0.4) H 04/23/22 04:19 Basophils # (Manual) 0.0 K/mm3 (0.0-0.1) 04/23/22 04:19 Metamyelocytes # 0.0 K/mm3 04/23/22 04:19 Myelocytes # 0.0 K/mm3 04/23/22 04:19 Promyelocytes # 0.0 K/mm3 04/23/22 04:19 Blast Cells # 0.0 K/mm3 04/23/22 04:19 WBC Morphology Not Reportable 04/23/22 04:19 Hypersegmented Neuts Not Reportable 04/23/22 04:19 Hyposegmented Neuts Not Reportable 04/23/22 04:19 Hypogranular Neuts Not Reportable 04/23/22 04:19 Smudge Cells Not Reportable 04/23/22 04:19 Toxic Granulation Not Reportable 04/23/22 04:19 Toxic Vacuolation Not Reportable 04/23/22 04:19 Dohle Bodies Not Reportable 04/23/22 04:19 Pelger-Huet Anomaly Not Reportable 04/23/22 04:19 Regla Rods Not Reportable 04/23/22 04:19 Platelet Estimate Consistent w auto 04/23/22 04:19 Clumped Platelets Not Reportable 04/23/22 04:19 Plt Clumps, EDTA Not Reportable 04/23/22 04:19 Large Platelets Not Reportable 04/23/22 04:19 Giant Platelets Not Reportable 04/23/22 04:19 Platelet Satelliting Not Reportable 04/23/22 04:19 Plt Morphology Comment Not Reportable 04/23/22 04:19 RBC Morphology Not Reportable 04/23/22 04:19 Dimorphic RBCs Not Reportable 04/23/22 04:19 Polychromasia Not Reportable 04/23/22 04:19 Hypochromasia Not Reportable 04/23/22 04:19 Poikilocytosis Not Reportable 04/23/22 04:19 Anisocytosis Not Reportable 04/23/22 04:19 Microcytosis Not Reportable 04/23/22 04:19 Macrocytosis Not Reportable 04/23/22 04:19 Spherocytes Not Reportable 04/23/22 04:19 Pappenheimer Bodies Not Reportable 04/23/22 04:19 Sickle Cells Not Reportable 04/23/22 04:19 Target Cells Not Reportable 04/23/22 04:19 Tear Drop Cells Not Reportable 04/23/22 04:19 Ovalocytes Not Reportable 04/23/22 04:19 Helmet Cells Not Reportable 04/23/22 04:19 [place] Bodies Not Reportable 04/23/22 04:19 [place] Rings Not Reportable 04/23/22 04:19 [place] Cells Not Reportable 04/23/22 04:19 Bite Cells Not Reportable 04/23/22 04:19 Crenated Cell Not Reportable 04/23/22 04:19 Elliptocytes Not Reportable 04/23/22 04:19 Acanthocytes (Spur) Not Reportable 04/23/22 04:19 Rouleaux Not Reportable 04/23/22 04:19 Hemoglobin C Crystals Not Reportable 04/23/22 04:19 Schistocytes Not Reportable 04/23/22 04:19 Malaria parasites Not Reportable 04/23/22 04:19 [place] Bodies Not Reportable 04/23/22 04:19 Hem Pathologist Commnt No 04/23/22 04:19 PT 15.6 Sec. (12.2-14.9) H 04/18/22 Unknown INR 1.08 (0.87-1.13) 04/18/22 Unknown APTT 28.6 Sec. (24.2-36.6) 04/18/22 Unknown Activated Coag Time 179 (74-137) H 04/21/22 12:14 Heparin Anti-Xa Level 0.16 U.I./ml (0.3-0.7) L 04/21/22 04:00 ABG pH 7.487 pH Units (7.350-7.450) H 04/29/22 03:20 ABG pCO2 37.3 mm Hg 04/29/22 03:20 ABG pO2 176.1 mm Hg (80.0-90.0) H 04/29/22 03:20 ABG HCO3 27.6 mmol/L (20.0-26.0) H 04/29/22 03:20 ABG O2 Saturation 99.2 % (95.0-99.0) H 04/29/22 03:20 ABG O2 Content 13.5 (0.0-44) 04/29/22 03:20 ABG Base Excess 4.0 mmol/L (-2.0-3.0) H 04/29/22 03:20 ABG Hemoglobin 9.6 gm/dl (14.0-18.0) L 04/29/22 03:20 ABG Carboxyhemoglobin 1.3 % (0.0-5.0) 04/29/22 03:20 ABG Methemoglobin 0.5 % (0.0-1.5) 04/29/22 03:20 Oxyhemoglobin 97.4 % (95.0-99.0) 04/29/22 03:20 FiO2 60 % 04/29/22 03:20 Sodium 139 mmol/L (137-145) 04/29/22 04:20 Potassium 3.6 mmol/L (3.6-5.0) 04/29/22 04:20 Chloride 101.1 mmol/L (98-107) 04/29/22 04:20 Carbon Dioxide 27 mmol/L (22-30) 04/29/22 04:20 Anion Gap 15 mmol/L 04/29/22 04:20 BUN 30 mg/dL (9-20) H 04/29/22 04:20 Creatinine 1.6 mg/dL (0.8-1.3) H 04/29/22 04:20 Estimated GFR 53 ml/min 04/29/22 04:20 BUN/Creatinine Ratio 19 % 04/29/22 04:20 Glucose 236 mg/dL (75-100) H 04/29/22 04:20 POC Glucose 202 mg/dL (70-105) H 04/29/22 05:43 Lactic Acid 1.90 mmol/L (0.7-2.0) 04/21/22 04:20 Calcium 8.1 mg/dL (8.4-10.2) L 04/29/22 04:20 Phosphorus 4.10 mg/dL (2.5-4.5) D 04/29/22 04:20 Magnesium 1.90 mg/dL (1.7-2.3) 04/29/22 04:20 Total Bilirubin 0.90 mg/dL (0.1-1.2) 04/29/22 04:20 AST 143 units/L (5-40) H 04/29/22 04:20 ALT 105 units/L (7-56) H 04/29/22 04:20 Alkaline Phosphatase 210 units/L (35-129) H 04/29/22 04:20 Total Creatine Kinase 61 units/L (55-170) 04/29/22 04:20 CK-MB (CK-2) 28.5 ng/mL (0.0-4.0) H 04/19/22 07:11 CK-MB (CK-2) Rel Index 0.8 (0-4) 04/19/22 07:11 Troponin T 2.980 ng/mL (0.00-0.029) H* 04/19/22 07:11 C-Reactive Protein 15.30 mg/dL (0.00-1.30) H 04/28/22 08:20 Total Protein 6.2 g/dL (6.3-8.2) L 04/29/22 04:20 Albumin 2.0 g/dL (3.9-5) L 04/29/22 04:20 Albumin/Globulin Ratio 0.5 % 04/29/22 04:20 Triglycerides 99 mg/dL (2-149) 04/28/22 05:28 Cholesterol 106 mg/dL (50-199) 04/17/22 19:56 LDL Cholesterol Direct 57 mg/dL (50-130) 04/17/22 19:56 HDL Cholesterol 40 mg/dL (40-59) 04/17/22 19:56 Cholesterol/HDL Ratio 2.65 % 04/17/22 19:56 Procalcitonin 44.70 ng/mL (<0.15) 04/22/22 04:32 Urine Color Straw (Yellow) 04/28/22 08:35 Urine Turbidity Clear (Clear) 04/28/22 08:35 Urine pH 6.0 (5.0-7.0) 04/28/22 08:35 Ur Specific Mathias 1.000 (1.003-1.030) L 04/28/22 08:35 Urine Protein 300 mg/dl mg/dL (Negative) 04/28/22 08:35 Urine Glucose (UA) Negative mg/dL (Negative) 04/28/22 08:35 Urine Ketones Negative mg/dL (Negative) 04/28/22 08:35 Urine Blood 3+ (Negative) 04/28/22 08:35 Urine Nitrite Negative (Negative) 04/28/22 08:35 Ur Reducing Substances Not Reportable 04/28/22 08:35 Urine Bilirubin Negative (Negative) 04/28/22 08:35 Urine Ictotest Not Reportable 04/28/22 08:35 Urine Urobilinogen < 2.0 mg/dL (<2.0) 04/28/22 08:35 Ur Leukocyte Esterase Small (Negative) 04/28/22 08:35 Urine WBC (Auto) 21.0 /HPF (0.0-6.0) H 04/28/22 08:35 Urine RBC (Auto) 9.0 /HPF (0.0-6.0) 04/28/22 08:35 Urine Bacteria (Auto) 2+ /HPF (Negative) 04/19/22 02:08 Urine WBC Clumps 3+ /HPF 04/19/22 02:08 RBC Casts 34 /LPF 04/19/22 02:08 Urine Mucus Few /HPF 04/28/22 08:35 Urine Yeast (Budding) 3+ /HPF 04/19/22 02:08 Urine Eosinophils None seen (None Seen) 04/19/22 02:08 Urine Creatinine 90.9 mg/dL (0.1-20.0) H 04/19/22 02:08 Urine Sodium 54 mmol/L 04/19/22 02:08 Blood Type A POSITIVE 04/21/22 04:37 Antibody Screen Negative 04/21/22 04:37 Microbiology: Microbiology 04/26/22 05:20 Peripheral/Venous Blood Culture - Preliminary NO GROWTH AFTER 72 HOURS 04/26/22 05:20 Urine,[place] Urine Culture - Final NO GROWTH AFTER 48 HOURS 04/26/22 08:57 Peripheral/Venous Blood Culture - Preliminary NO GROWTH AFTER 48 HOURS [place]/IV: Voiding Method Indwelling Catheter Active Medications - Current Medications Current Medications: Generic Name Dose Route Start Last Admin Trade Name Freq PRN Reason Stop Dose Admin Acetaminophen 650 mg 04/17/22 19:48 04/28/22 21:38 Acetaminophen 325 Mg Tab PO 650 mg Q6H PRN Administration Pain MILD(1-3)/Fever >100.5/CHE Albuterol 2.5 mg 04/17/22 19:48 Albuterol 2.5 Mg/3 Ml Nebu IH Q3HRT PRN Shortness Of Breath Amiodarone HCl 400 mg 04/26/22 22:00 04/28/22 20:59 Amiodarone 200 Mg Tab PO 400 mg BID FLACO Administration Aspirin 81 mg 04/20/22 12:00 04/28/22 09:48 Aspirin 81 Mg Tab Chew FEEDTUBE 81 mg QDAY FLACO Administration Atorvastatin Calcium 20 mg 04/20/22 22:00 04/28/22 20:59 Atorvastatin 20 Mg Tab FEEDTUBE 20 mg QHS FLAOC Administration Dextrose 0 ml 04/17/22 23:46 Dextrose 50% In Water (25gm) 50 Ml Syringe IV Q30MIN PRN Hypoglycemia Protocol Docusate Sodium 100 mg 04/27/22 11:00 04/28/22 20:59 Docusate Sodium 100 Mg/10 Ml Oral Liqd FEEDTUBE 100 mg BID FLACO Administration Famotidine 20 mg 04/27/22 10:00 04/28/22 21:00 Famotidine 20 Mg Tab FEEDTUBE 20 mg BID FALCO Administration Fentanyl 50 mcg 04/17/22 20:22 04/18/22 03:52 Fentanyl 100 Mcg/2 Ml Inj IV 50 mcg Q10MIN PRN Administration ANALGESIA Heparin Sodium (Porcine) 5,000 unit 04/21/22 22:00 04/28/22 20:59 Heparin 5,000 Unit/1 Ml Vial SUB-Q 5,000 unit Q12HR FLACO Administration Hydrophilic Ointment 1 applic 04/18/22 06:02 04/26/22 20:29 Lip Therapy Vaseline TP 1 applic Q2HR PRN Administration Dry Lips Fentanyl Citrate 2,000 mcg in 100 mls @ 5.443 mls/hr 04/17/22 21:00 04/28/22 21:40 Fentanyl Drip Premix IV 0 mcg/kg/hr TITR FLACO 0 mls/hr Titration Protocol 1 MCG/KG/HR Propofol 1,000 mg in 100 mls @ 3.456 mls/hr 04/18/22 07:00 04/28/22 21:40 Diprivan 10 Mg/Ml IV 5 mcg/kg/min TITR FLACO 3.456 mls/hr Titration Protocol 5 MCG/KG/MIN Cefepime HCl 2 gm in 100 mls @ 200 mls/hr 04/28/22 08:00 04/29/22 00:28 Cefepime/Ns 2 Gm/100 Ml IV 200 mls/hr Q8H FLACO Administration Protocol Vancomycin HCl 1,750 mg/ 535 mls @ 333.333 mls/hr 04/28/22 10:00 04/28/22 09:49 Sodium Chloride IV 333.333 mls/hr Q24H FLACO Administration Dexmedetomidine HCl 400 mcg/ 104 mls @ 5.99 mls/hr 04/28/22 11:00 04/28/22 13:52 Sodium Chloride IV 0 mcg/kg/hr TITRATE FLACO 0 mls/hr Titration Protocol 0.2 MCG/KG/HR NORepinephrine/NS 8 MG-250 ML 8 mg in 250 mls @ 3.75 mls/hr 04/28/22 15:00 04/29/22 04:39 Norepinephrine/Ns 8 Mg-250 Ml (Double Conc) IV 4 mcg/min TITRATE FLACO 7.5 mls/hr Titration Protocol 2 MCG/MIN Insulin Glargine 55 units 04/29/22 07:34 Insulin Glargine 100 Units/Ml SUB-Q QHS FLACO Insulin Human Lispro 0 unit 04/18/22 00:00 04/29/22 05:46 Insulin Lispro 100 Unit/Ml SUB-Q 4 unit Q6HR FLACO Administration Protocol Insulin Human Lispro 10 unit 04/29/22 07:34 Insulin Lispro 100 Unit/Ml SUB-Q Q6HR FLACO Multi-Ingred Cream/Lotion/Oil/Oint 1 applic 04/18/22 06:02 Mineral Oil/Petrolatum, White Ophth Oint 3.5 Gm OU Q4HR PRN Dry Eye(s) Oxycodone/Acetaminophen 1 tab 04/22/22 11:05 Oxycodone /Acetaminophen 5-325mg Tab FEEDTUBE Q6H PRN Pain, Moderate (4-6) Senna/Docusate Sodium 2 tab 04/28/22 10:00 04/28/22 21:00 Sennosides/Docusate Sodium 8.6/50 Mg Tab FEEDTUBE Not Given BID FLACO Sodium Chloride 10 ml 04/17/22 22:00 04/28/22 21:00 Sodium Chloride 0.9% 10 Ml Flush Syringe IV 10 ml BID FLACO Administration Sodium Chloride 10 ml 04/17/22 19:48 Sodium Chloride 0.9% 10 Ml Flush Syringe IV PRN PRN LINE FLUSH Nutrition/Malnutrition Assess - Dietary Evaluation Nutrition/Malnutrition Findings: Nutrition Notes Start: 04/18/22 08:52 Freq: Status: Active Protocol: Document 04/22/22 10:36 ROMELIA (Rec: 04/22/22 10:49 ROMELIA [id number]) Nutrition Notes Initial or Follow up Brief Note Current Diagnosis Acute Kidney Injury,Diabetes, Sepsis,Hypertension, Respiratory Failure Other Pertinent Diagnosis s/p PEA w/ROSC, HFrEF, Pneumonia, Metabolic Acidosis, Cardiogenic Shock, .. Current Diet TF-Nepro w/CARBSTEADY @ 35 ml/ hr (from D 04/21). Height 5 ft 9 in Weight 115.2 kg [place] Body Weight (kg) 72.72 BMI 37.5 Weight change and time frame No body weight change reported in 4 days. Weight Status Obese Subjective/Other Information RD consult for TF tolerance/ continuation assessment. TF continues as prescribed, no further information available at the time. Pt continues on Mechanical Ventilation, O2 saturation @ 95%, according to Physical Assessment History notes. Percent of energy/protein needs met: Prescribed TF-Nepro w/ CARBSTEADY @ 35 ml/hr provides for energy/protein needs (1, 500 Kcal/68 g) during LOS, 77% Kcal; 90% AA. Including 365 Kcal from Propofol: 95% Kcal; 90% AA. #2 Nutrition Diagnosis Altered nutrition-related laboratory values Comments: Prescribed TF-Nepro w/ CARBSTEADY @ 35 ml/hr provides for energy/protein needs (1, 500 Kcal/68 g) during LOS, 77% Kcal; 90% AA. Including 365 Kcal from Propofol: 95% Kcal; 90% AA. Diagnosis Progress(for reassessment Resolved documentation) #1 Nutrition Diagnosis Inadequate oral intake Diagnosis Progress(for reassessment Continues documentation) Is patient on ventilator? Yes Is Patient Ambulatory and/or Out of Bed No [facility]EE-([facility]-confined to bed) 2323.608 Kcal/Kg value to use for calculation 17 Approximate Energy Requirements Using 1958 kcal/Kg Calculation Used for Recommendations Kcal/kg Additional Notes Protein: 0.8-1.2 g/Kg AdjBW; 75-113 g/day. Fluids: 1 ml/Kcal, or as per MD. Nutrition Intervention Nutrition Support: Continue TF-Nepro w/CARBSTEADY @ 35 ml/hr. Flush: 220 ml water Q 4 hr, or as per MD. Kcal 1,500 Protein (gm) 68 Carbohydrates (gm) 134 Fat (gm) 80 Fluid (mL) 606 Fiber (gm) 11 % RDI: 77% Kcal; 90% AA. Goal #1 Provide at least 75% of energy /protein needs through Enteral Feeding during LOS. Follow-Up By: 04/29/22 Additional Comments Continue monitoring TF tolerance, ventilation status, vasopressors, and BM.
[2022-04-28] MEDS ORDERED: FUROSEMIDE 40 MG/4 ML INJ IV ONE (12:00)
[2022-04-28] MEDS ORDERED: HALOPERIDOL LACTATE 5 MG/1 ML INJ IV ONE (12:00)
--- NOTE | 2022-04-28 12:08 | Event Note ---
Date: 04/28/22 Called to bedside as patient self extubated. Patient awake and anxious. Screaming he needs to defecate. Placed on NRB but sats marginal. Upper airway noise and very hypertensive. systolics>200. Asked for bipap until glide scope and airway box could be brought to bedside. After adequate sedation with Lino 50 and Etomidate 20, 7.5 ET tube was introduced into the airway using a rigid stylet, safely removed and tube advanced simultaneously. Good color change and breath sounds heard bilaterally. Secured and CXR ordered. Patient required significant bagging but able to get back up to 100%. Placed back on prior vent settings until CXR done. ICU attending alerted by [employer]OR SERVICES MANAGER. CCT 31 minutes.
--- NOTE | 2022-04-28 12:11 | Consultation ---
History of Present Illness - Reason for Consult Consult date: 04/28/22 sepsis Requesting physician: LAOK MORALES - History of Present Illness The patient is a 62-year-old male with obesity, hypertension, diabetes, atrial fibrillation was admitted to the hospital on 04/17/2022 with out of hospital cardiac arrest/V. fib arrest with ROSC. He was severely acidotic, placed on pressors, intubated, on mechanical ventilation. Also with acute renal failure. Has been having low-grade fevers intermittently, since yesterday, started spiking fevers, now T-max of 102.4 F. ID was consulted for additional evaluation. Labs also revealed leukocytosis. UA with mild pyuria. Chest x-ray with bibasilar pleuroparenchymal disease. Otherwise no significant pneumonia seen. Initial CTA did not reveal any PE, had shown extensive bilateral airspace disease suggesting of possible aspiration. Patient self extubated and reintubated today. Review of Systems: Limited, patient on the vent. Past History Past Medical History: diabetes, hypertension, other (See HPI) Past Surgical History: No surgical history, Other (Reviewed) Social history: . denies: smoking, alcohol abuse Family history: diabetes, hypertension Medications and Allergies Allergies Allergy/AdvReac Type Severity Reaction Status Date / Time lisinopril Allergy Angioedema Verified 04/27/22 06:02 Home Medications Medication Instructions Recorded Confirmed Last Taken Type AtorvaSTATin 40 mg PO QHS 04/22/22 04/22/22 Unknown History Humulin N 22 units SQ QHS 04/22/22 04/22/22 Unknown History amLODIPine 10 mg PO QAM 04/22/22 04/22/22 Unknown History glipiZIDE 20 mg PO BID 04/22/22 04/22/22 Unknown History metFORMIN 850 mg PO TID 04/22/22 04/22/22 Unknown History Active Meds: Active Medications Acetaminophen (Acetaminophen 325 Mg Tab) 650 mg PO Q6H PRN PRN Reason: Pain MILD(1-3)/Fever >100.5/CHE Last Admin: 04/28/22 05:29 Dose: 650 mg Albuterol (Albuterol 2.5 Mg/3 Ml Nebu) 2.5 mg IH Q3HRT PRN PRN Reason: Shortness Of Breath Amiodarone HCl (Amiodarone 200 Mg Tab) 400 mg PO BID FLACO Last Admin: 04/28/22 09:48 Dose: 400 mg Aspirin (Aspirin 81 Mg Tab Chew) 81 mg FEEDTUBE QDAY [facility] Last Admin: 04/28/22 09:48 Dose: 81 mg Atorvastatin Calcium (Atorvastatin 20 Mg Tab) 20 mg FEEDTUBE QHS [facility] Last Admin: 04/27/22 21:20 Dose: 20 mg Dextrose (Dextrose 50% In Water (25gm) 50 Ml Syringe) 0 ml IV Q30MIN PRN; Protocol PRN Reason: Hypoglycemia Docusate Sodium (Docusate Sodium 100 Mg/10 Ml Oral Liqd) 100 mg FEEDTUBE BID [facility] Last Admin: 04/28/22 09:48 Dose: 100 mg Famotidine (Famotidine 20 Mg Tab) 20 mg FEEDTUBE BID [facility] Last Admin: 04/28/22 09:48 Dose: 20 mg Fentanyl (Fentanyl 100 Mcg/2 Ml Inj) 50 mcg IV Q10MIN PRN PRN Reason: ANALGESIA Last Admin: 04/18/22 03:52 Dose: 50 mcg Heparin Sodium (Porcine) (Heparin 5,000 Unit/1 Ml Vial) 5,000 unit SUB-Q Q12HR [facility] Last Admin: 04/28/22 09:48 Dose: 5,000 unit Hydrophilic Ointment (Lip Therapy Vaseline) 1 applic TP Q2HR PRN PRN Reason: Dry Lips Last Admin: 04/26/22 20:29 Dose: 1 applic Fentanyl Citrate (Fentanyl Drip Premix) 2,000 mcg in 100 mls @ 5.443 mls/hr IV TITR [facility]; Protocol Last Titration: 04/27/22 15:33 Dose: Infused Propofol (Diprivan 10 Mg/Ml) 1,000 mg in 100 mls @ 3.456 mls/hr IV TITR [facility]; Protocol Last Titration: 04/28/22 09:07 Dose: 0 mcg/kg/min, 0 mls/hr Cefepime HCl (Cefepime/Ns 2 Gm/100 Ml) 2 gm in 100 mls @ 200 mls/hr IV Q8H [facility]; Protocol Last Admin: 04/28/22 08:42 Dose: 200 mls/hr Vancomycin HCl 1,750 mg/ (Sodium Chloride) 535 mls @ 333.333 mls/hr IV Q24H [facility] Last Admin: 04/28/22 09:49 Dose: 333.333 mls/hr Dexmedetomidine HCl 400 mcg/ (Sodium Chloride) 104 mls @ 5.99 mls/hr IV TITRATE [facility]; Protocol Last Admin: 04/28/22 10:52 Dose: 0.7 mcg/kg/hr, 20.966 mls/hr Insulin Glargine (Insulin Glargine 100 Units/Ml) 50 units SUB-Q QHS [facility] Last Admin: 04/27/22 21:19 Dose: 50 units Insulin Human Lispro (Insulin Lispro 100 Unit/Ml) 0 unit SUB-Q Q6HR [facility]; Protocol Last Admin: 04/28/22 05:56 Dose: 3 unit Insulin Human Lispro (Insulin Lispro 100 Unit/Ml) 8 unit SUB-Q Q6HR [facility] Last Admin: 04/28/22 05:56 Dose: 8 unit Multi-Ingred Cream/Lotion/Oil/Oint (Mineral Oil/Petrolatum, White Ophth Oint 3.5 Gm) 1 applic OU Q4HR PRN PRN Reason: Dry Eye(s) Oxycodone/Acetaminophen (Oxycodone /Acetaminophen 5-325mg Tab) 1 tab FEEDTUBE Q6H PRN PRN Reason: Pain, Moderate (4-6) Senna/Docusate Sodium (Sennosides/Docusate Sodium 8.6/50 Mg Tab) 2 tab FEEDTUBE BID FLACO Sodium Chloride (Sodium Chloride 0.9% 10 Ml Flush Syringe) 10 ml IV BID [facility] Last Admin: 04/27/22 21:22 Dose: 10 ml Sodium Chloride (Sodium Chloride 0.9% 10 Ml Flush Syringe) 10 ml IV PRN PRN PRN Reason: LINE FLUSH Physical Examination - Physical Exam Narrative exam: Physical Exam: Constitutional: sedated, intubated, on the vent Head, Ears, Nose: Normocephalic, atraumatic. External ears, nose normal Eyes: Conjunctivae/corneas clear. No icterus. No ptosis. Neck: intubated Oral: intubated Cardiovascular: S1, S2 + Respiratory: AE fair bilaterally and equal GI: Soft, bowel sounds + Musculoskeletal: No pedal edema, no cyanosis. Skin: No rash or abscess Hem/Lymphatic: No palpable cervical or supraclavicular nodes. No lymphangitis Psych: no agitation Neurological: sedated, intubated, on the vent, exam limited - Constitutional Vitals: Vital Signs Temp Pulse Resp BP Pulse Ox 102.4 F H 102 H 23 103/51 100 04/28/22 07:17 04/28/22 11:50 04/28/22 10:30 04/28/22 07:49 04/28/22 11:50 Temperature -Last 24 Hours Temperature 102.4 F Temperature 101.8 F Temperature 103.2 F Temperature 98.6 F Temperature 98.4 F Temperature 100.8 F Temperature 101.1 F Temperature 99.8 F Results - Labs CBC & Chem 7: 04/28/22 05:28 04/28/22 05:28 Labs: Abnormal lab results 04/28/22 04/28/22 04/28/22 Range/Units 00:01 05:25 05:28 WBC 16.1 H (4.5-11.0) K/mm3 RBC 3.32 L (3.65-5.03) M/mm3 Hgb 9.4 L (11.8-15.2) gm/dl Hct 29.9 L (35.5-45.6) % ABG pH 7.489 H (7.350-7.450) pH Units ABG pO2 72.5 L (80.0-90.0) mm Hg ABG HCO3 27.8 H (20.0-26.0) mmol/L ABG Base Excess 4.3 H (-2.0-3.0) mmol/L ABG Hemoglobin 9.2 L (14.0-18.0) gm/dl Oxyhemoglobin 94.6 L (95.0-99.0) % BUN (9-20) mg/dL Creatinine (0.8-1.3) mg/dL Glucose (75-100) mg/dL POC Glucose 189 H (70-105) mg/dL Calcium (8.4-10.2) mg/dL C-Reactive Protein (0.00-1.30) mg/dL Ur Specific [place] (1.003-1.030) Urine WBC (Auto) (0.0-6.0) /HPF 04/28/22 04/28/22 04/28/22 Range/Units 05:28 05:44 08:20 WBC (4.5-11.0) K/mm3 RBC (3.65-5.03) M/mm3 Hgb (11.8-15.2) gm/dl Hct (35.5-45.6) % ABG pH (7.350-7.450) pH Units ABG pO2 (80.0-90.0) mm Hg ABG HCO3 (20.0-26.0) mmol/L ABG Base Excess (-2.0-3.0) mmol/L ABG Hemoglobin (14.0-18.0) gm/dl Oxyhemoglobin (95.0-99.0) % BUN 22 H (9-20) mg/dL Creatinine 1.4 H (0.8-1.3) mg/dL Glucose 179 H (75-100) mg/dL POC Glucose 181 H (70-105) mg/dL Calcium 8.2 L (8.4-10.2) mg/dL C-Reactive Protein 15.30 H (0.00-1.30) mg/dL Ur Specific [place] (1.003-1.030) Urine WBC (Auto) (0.0-6.0) /HPF 04/28/22 04/28/22 Range/Units 08:35 11:13 WBC (4.5-11.0) K/mm3 RBC (3.65-5.03) M/mm3 Hgb (11.8-15.2) gm/dl Hct (35.5-45.6) % ABG pH (7.350-7.450) pH Units ABG pO2 (80.0-90.0) mm Hg ABG HCO3 (20.0-26.0) mmol/L ABG Base Excess (-2.0-3.0) mmol/L ABG Hemoglobin (14.0-18.0) gm/dl Oxyhemoglobin (95.0-99.0) % BUN (9-20) mg/dL Creatinine (0.8-1.3) mg/dL Glucose (75-100) mg/dL POC Glucose 131 H (70-105) mg/dL Calcium (8.4-10.2) mg/dL C-Reactive Protein (0.00-1.30) mg/dL Ur Specific [place] 1.000 L (1.003-1.030) Urine WBC (Auto) 21.0 H (0.0-6.0) /HPF - Imaging and Cardiology Chest x-ray: report reviewed, image reviewed (mild bibasilar disease) Assessment and Plan Cultures: 04/17/2022 blood culture: No growth 04/17/2022 tracheal aspirate culture: Usual respiratory adina 04/18/2022 urine culture: No growth 04/26/2022 blood culture: No growth 04/26/2022 urine culture: No growth A/P: 62-year-old male with obesity, hypertension, diabetes, atrial fibrillation was admitted to the hospital on 04/17/2022 with out of hospital cardiac arrest/V. fib arrest with ROSC. He was severely acidotic, placed on pressors, intubated, on mechanical ventilation: #Severe sepsis: Etiology unclear. Rule out bacteremia, catheter associated UTI. #S/p [id number] cardiac arrest/V. fib arrest, cardiogenic shock #VINCENT: Renally adjust antibiotics. Creatinine gradually better. #Aspiration pneumonia #Acute hypoxic respiratory failure: On mechanical ventilation. #Acute urinary retention: Has Dunbar catheter in place. Recs: Continue empiric cefepime and vancomycin for now, monitor response in fever, WBC Follow-up sputum culture from 04/28/2022 Recheck CMP in a.m., if LFTs are still elevated, get RUQ ultrasound Orion Chung MD, FACP, [facility] ([facility] O: [phone] F: [phone] C: [phone]
--- NOTE | 2022-04-28 12:18 | XRay Report ---
CHEST 1 VIEW 04/28/2022 11:53 AM INDICATION / CLINICAL INFORMATION: Re-intubation after self extubation. COMPARISON: Earlier today at 0805 hours FINDINGS: SUPPORT DEVICES: The endotracheal tube terminates 5 cm superior to the law. Feeding tube transvers es the esophagus to the proximal stomach but the distal tip is not included. HEART / MEDIASTINUM: Borderline to mild cardiomegaly LUNGS / PLEURA: Diffuse bilateral infiltrates or pulmonary edema has developed. Small pleural effusio ns could be present. No pneumothorax. ADDITIONAL FINDINGS: No significant additional findings. IMPRESSION: 1. Adequate placement of the endotracheal tube. 2. Bilateral infiltrates or pulmonary edema has developed. Signer Name: Robin Agarwal Jr, MD Signed: 04/28/2022 12:14 PM Workstation Name: [id number]
[2022-04-28 12:37] LABS: ABG Base Excess -1.4 mmol/L (-2.0-3.0); ABG HCO3 27.7 mmol/L (20.0-26.0); ABG Methemoglobin 0.8 % (0.0-1.5); ABG PCO2 71.9 mm Hg; ABG PH 7.203 pH Units (7.350-7.450); ABG PO2 43.7 mm Hg (80.0-90.0)
--- NOTE | 2022-04-28 13:44 | Progress Note ---
Assessment and Plan 1. Acute kidney injury: Vasomotor VINCENT in the setting of shock. IV contrast on 04/17. Renal US negative. Monitor renal function. Creatinine level improving. Avoid nephrotoxic agents. Meds dosage based on GFR. 2. FEN: Hypernatremia, improved. Anion-gap metabolic acidosis, improved, monitor. Replete lytes as needed. Monitor lytes and volume status. 3. S/p V.fib Cardiac arrest, POA: On Amio. Followed by Cards. Monitor. 4. Shock: Currently off pressors. Monitor. 5. A.fib: On Amio. Followed by Cards. Monitor. 6. Acute Hypoxemic Respiratory Failure: Bilateral Pneumonia- Probable Aspiration. CTA negative for PE, reveals bilateral airspace disease, greater in the Upper lobs. Intubated in the filed during code on 04/17. Self extubated and Re-intubated 04/28. Monitor. 7. Elevated ALT & AST: Trend. 8. Acute metabolic encephalopathy, POA: Monitor. 9. Rhabdomyolysis: Trend CK. Care plan d/w . Subjective: Patient was seen and examined at the bedside. at the the bedside. Examination: General appearance: well-developed, appears stated age, obese, tachypneic, intubated, on vent HEENT: atraumatic, no icterus, pupils equal Neck: trachea midline Respiratory: coarse breath sounds bilaterally Heart: S1S2, irregular, tachycardia, no murmur Abdomen: soft, bowel sounds heard, NT Integumentary: no obvious rash Neurologic: not responding Ext: no edema Subjective Date of service: 04/28/22 Principal diagnosis: AHRF; AMS; Pneumonia; Shock; DM II; Severe Metabolic Acidosis Objective - Vital Signs Vital signs: Vital Signs - 12hr 04/28/22 04/28/22 04/28/22 01:46 02:00 02:16 Temperature Pulse Rate 81 103 H 84 Pulse Rate [ From Monitor] Respiratory 20 15 17 Rate Blood Pressure O2 Sat by Pulse 98 94 100 Oximetry 04/28/22 04/28/22 04/28/22 02:30 02:46 03:00 Temperature Pulse Rate 78 81 81 Pulse Rate [ From Monitor] Respiratory 15 17 17 Rate Blood Pressure O2 Sat by Pulse 100 97 100 Oximetry 04/28/22 04/28/22 04/28/22 03:14 03:16 03:30 Temperature Pulse Rate 83 79 86 Pulse Rate [ From Monitor] Respiratory 15 16 Rate Blood Pressure O2 Sat by Pulse 100 100 Oximetry 04/28/22 04/28/22 04/28/22 03:46 03:57 04:00 Temperature 103.2 F H Pulse Rate 80 87 Pulse Rate [ 89 From Monitor] Respiratory 12 18 20 Rate Blood Pressure 127/68 O2 Sat by Pulse 99 100 100 Oximetry 04/28/22 04/28/22 04/28/22 04:16 04:30 04:46 Temperature Pulse Rate 76 82 81 Pulse Rate [ From Monitor] Respiratory 18 13 17 Rate Blood Pressure O2 Sat by Pulse 98 100 100 Oximetry 04/28/22 04/28/22 04/28/22 05:00 05:16 05:23 Temperature 101.8 F H Pulse Rate 83 82 Pulse Rate [ From Monitor] Respiratory 20 19 Rate Blood Pressure O2 Sat by Pulse 100 98 Oximetry 04/28/22 04/28/22 04/28/22 05:30 05:46 06:00 Temperature Pulse Rate 97 H 93 H 92 H Pulse Rate [ From Monitor] Respiratory 18 14 21 Rate Blood Pressure O2 Sat by Pulse 97 97 97 Oximetry 04/28/22 04/28/22 04/28/22 06:16 06:30 06:46 Temperature Pulse Rate 104 H 98 H 92 H Pulse Rate [ From Monitor] Respiratory 20 18 19 Rate Blood Pressure O2 Sat by Pulse 97 97 97 Oximetry 04/28/22 04/28/22 04/28/22 07:00 07:16 07:17 Temperature 102.4 F H Pulse Rate 94 H 84 Pulse Rate [ From Monitor] Respiratory 16 22 Rate Blood Pressure O2 Sat by Pulse 98 99 Oximetry 04/28/22 04/28/22 04/28/22 07:30 07:46 07:49 Temperature Pulse Rate 95 H 81 78 Pulse Rate [ From Monitor] Respiratory 20 16 Rate Blood Pressure 103/51 O2 Sat by Pulse 99 100 100 Oximetry 04/28/22 04/28/22 04/28/22 08:00 08:16 08:30 Temperature Pulse Rate 79 82 84 Pulse Rate [ 89 From Monitor] Respiratory 15 20 17 Rate Blood Pressure O2 Sat by Pulse 100 100 100 Oximetry 04/28/22 04/28/22 04/28/22 08:46 08:58 09:00 Temperature Pulse Rate 82 84 Pulse Rate [ From Monitor] Respiratory 19 14 Rate Blood Pressure O2 Sat by Pulse 100 98 100 Oximetry 04/28/22 04/28/22 04/28/22 09:16 09:30 09:46 Temperature Pulse Rate 96 H 95 H 99 H Pulse Rate [ From Monitor] Respiratory 19 19 21 Rate Blood Pressure O2 Sat by Pulse 99 97 97 Oximetry 04/28/22 04/28/22 04/28/22 10:00 10:16 10:30 Temperature Pulse Rate 86 99 H 102 H Pulse Rate [ From Monitor] Respiratory 19 21 23 Rate Blood Pressure O2 Sat by Pulse 97 98 98 Oximetry 04/28/22 11:50 Temperature Pulse Rate 102 H Pulse Rate [ From Monitor] Respiratory Rate Blood Pressure O2 Sat by Pulse 100 Oximetry - Lab 04/28/22 05:28 04/28/22 05:28 Most recent lab results ABG pH 7.203 pH Units (7.350-7.450) L 04/28/22 12:07 ABG pCO2 71.9 mm Hg 04/28/22 12:07 ABG pO2 43.7 mm Hg (80.0-90.0) L 04/28/22 12:07 ABG HCO3 27.7 mmol/L (20.0-26.0) H 04/28/22 12:07 ABG O2 Saturation 63.0 % (95.0-99.0) L 04/28/22 12:07 Calcium 8.2 mg/dL (8.4-10.2) L 04/28/22 05:28 Phosphorus 3.30 mg/dL (2.5-4.5) 04/28/22 05:28 Magnesium 1.70 mg/dL (1.7-2.3) 04/28/22 05:28 Urine Creatinine 90.9 mg/dL (0.1-20.0) H 04/19/22 02:08 Urine Sodium 54 mmol/L 04/19/22 02:08 Medications & Allergies - Medications Allergies/Adverse Reactions: Allergies lisinopril Allergy (Verified 04/27/22 06:02) Angioedema Home Medications: Home Medications Medication Instructions Recorded Confirmed Last Taken Type AtorvaSTATin 40 mg PO QHS 04/22/22 04/22/22 Unknown History Humulin N 22 units SQ QHS 04/22/22 04/22/22 Unknown History amLODIPine 10 mg PO QAM 04/22/22 04/22/22 Unknown History glipiZIDE 20 mg PO BID 04/22/22 04/22/22 Unknown History metFORMIN 850 mg PO TID 04/22/22 04/22/22 Unknown History Active Medications: Generic Name Dose Route Start Last Admin Trade Name Freq PRN Reason Stop Dose Admin Acetaminophen 650 mg 04/17/22 19:48 04/28/22 05:29 Acetaminophen 325 Mg Tab PO 650 mg Q6H PRN Administration Pain MILD(1-3)/Fever >100.5/CHE Albuterol 2.5 mg 04/17/22 19:48 Albuterol 2.5 Mg/3 Ml Nebu IH Q3HRT PRN Shortness Of Breath Amiodarone HCl 400 mg 04/26/22 22:00 04/28/22 09:48 Amiodarone 200 Mg Tab PO 400 mg BID FLACO Administration Aspirin 81 mg 04/20/22 12:00 04/28/22 09:48 Aspirin 81 Mg Tab Chew FEEDTUBE 81 mg QDAY FLACO Administration Atorvastatin Calcium 20 mg 04/20/22 22:00 04/27/22 21:20 Atorvastatin 20 Mg Tab FEEDTUBE 20 mg QHS FLACO Administration Dextrose 0 ml 04/17/22 23:46 Dextrose 50% In Water (25gm) 50 Ml Syringe IV Q30MIN PRN Hypoglycemia Protocol Docusate Sodium 100 mg 04/27/22 11:00 04/28/22 09:48 Docusate Sodium 100 Mg/10 Ml Oral Liqd FEEDTUBE 100 mg BID FLACO Administration Famotidine 20 mg 04/27/22 10:00 04/28/22 09:48 Famotidine 20 Mg Tab FEEDTUBE 20 mg BID FLACO Administration Fentanyl 50 mcg 04/17/22 20:22 04/18/22 03:52 Fentanyl 100 Mcg/2 Ml Inj IV 50 mcg Q10MIN PRN Administration ANALGESIA Heparin Sodium (Porcine) 5,000 unit 04/21/22 22:00 04/28/22 09:48 Heparin 5,000 Unit/1 Ml Vial SUB-Q 5,000 unit Q12HR FLACO Administration Hydrophilic Ointment 1 applic 04/18/22 06:02 04/26/22 20:29 Lip Therapy Vaseline TP 1 applic Q2HR PRN Administration Dry Lips Fentanyl Citrate 2,000 mcg in 100 mls @ 5.443 mls/hr 04/17/22 21:00 04/27/22 15:33 Fentanyl Drip Premix IV Infused TITR FLACO Titration Protocol 1 MCG/KG/HR Propofol 1,000 mg in 100 mls @ 3.456 mls/hr 04/18/22 07:00 04/28/22 09:07 Diprivan 10 Mg/Ml IV 0 mcg/kg/min TITR FLACO 0 mls/hr Titration Protocol 5 MCG/KG/MIN Cefepime HCl 2 gm in 100 mls @ 200 mls/hr 04/28/22 08:00 04/28/22 08:42 Cefepime/Ns 2 Gm/100 Ml IV 200 mls/hr Q8H FLACO Administration Protocol Vancomycin HCl 1,750 mg/ 535 mls @ 333.333 mls/hr 04/28/22 10:00 04/28/22 09:49 Sodium Chloride IV 333.333 mls/hr Q24H FLACO Administration Dexmedetomidine HCl 400 mcg/ 104 mls @ 5.99 mls/hr 04/28/22 11:00 04/28/22 10:52 Sodium Chloride IV 0.7 mcg/kg/hr TITRATE FLACO 20.966 mls/hr Administration Protocol 0.2 MCG/KG/HR Insulin Glargine 50 units 04/26/22 22:00 04/27/22 21:19 Insulin Glargine 100 Units/Ml SUB-Q 50 units QHS FLACO Administration Insulin Human Lispro 0 unit 04/18/22 00:00 04/28/22 05:56 Insulin Lispro 100 Unit/Ml SUB-Q 3 unit Q6HR FLACO Administration Protocol Insulin Human Lispro 8 unit 04/26/22 12:00 04/28/22 05:56 Insulin Lispro 100 Unit/Ml SUB-Q 8 unit Q6HR FLACO Administration Multi-Ingred Cream/Lotion/Oil/Oint 1 applic 04/18/22 06:02 Mineral Oil/Petrolatum, White Ophth Oint 3.5 Gm OU Q4HR PRN Dry Eye(s) Oxycodone/Acetaminophen 1 tab 04/22/22 11:05 Oxycodone /Acetaminophen 5-325mg Tab FEEDTUBE Q6H PRN Pain, Moderate (4-6) Senna/Docusate Sodium 2 tab 04/28/22 10:00 Sennosides/Docusate Sodium 8.6/50 Mg Tab FEEDTUBE BID FLACO Sodium Chloride 10 ml 04/17/22 22:00 04/27/22 21:22 Sodium Chloride 0.9% 10 Ml Flush Syringe IV 10 ml BID FLACO Administration Sodium Chloride 10 ml 04/17/22 19:48 Sodium Chloride 0.9% 10 Ml Flush Syringe IV PRN PRN LINE FLUSH
[2022-04-28] MEDS: SENNOSIDES/DOCUSATE SODIUM 8.6/50 MG TAB FEEDTUBE SCH ×2 (13:54→21:00)
[2022-04-28] MEDS ORDERED: NORepinephrine/NS 8 MG-250 ML 8 MG/250 ML INFUS..BTL IV SCH (15:00)
--- NOTE | 2022-04-28 16:38 | Event Note ---
Date: 04/28/22 Self extubated requiring re-intubation. CXR -pulmonary edema. Now on PEEP+12/FIO2 100% ABG ordered. Diuresis but with soft blood pressure. Start Norepinehrine to support BP, keep SBP 120 for adequate renal perfusion. Continue antibiotics Updated his at the bedside
[2022-04-28 17:04] LABS: ABG Base Excess 3.9 mmol/L (-2.0-3.0); ABG Methemoglobin 0.5 % (0.0-1.5); ABG Oxygen Saturation 97.7 % (95.0-99.0); ABG PCO2 40.2 mm Hg; ABG PH 7.461 pH Units (7.350-7.450); ABG PO2 99.9 mm Hg (80.0-90.0)
[2022-04-28] MEDS: fentaNYL DRIP Premix 2,000 MCG/100 ML BAG IV SCH (19:35)
[2022-04-28] MEDS: INSULIN GLARGINE 100 UNITS/ML SUB-Q SCH (20:59)
[2022-04-29] MEDS: CEFEPIME/NS 2 GM/100 ML 2 GM/100 ML BAG IV SCH ×3 (00:28→17:16)
[2022-04-29] MEDS: INSULIN LISPRO 100 UNIT/ML SUB-Q SCH ×8 (00:36→19:04)
[2022-04-29] MEDS: FREE WATER PO SCH ×6 (01:29→21:38)
[2022-04-29 03:40] LABS: ABG HCO3 27.6 mmol/L (20.0-26.0); ABG Methemoglobin 0.5 % (0.0-1.5); ABG Oxygen Saturation 99.2 % (95.0-99.0); ABG PCO2 37.3 mm Hg; ABG PH 7.487 pH Units (7.350-7.450); ABG PO2 176.1 mm Hg (80.0-90.0)
--- NOTE | 2022-04-29 04:48 | XRay Report ---
CHEST 1 VIEW 04/29/2022 3:36 AM INDICATION / CLINICAL INFORMATION: Follow up respiratory failure. COMPARISON: 04/28/2022 FINDINGS: SUPPORT DEVICES: ET tube is 6.9 cm above the law HEART / MEDIASTINUM: No significant abnormality. LUNGS / PLEURA: Increased pulmonary vascularity/edema. No pneumothorax. ADDITIONAL FINDINGS: No significant additional findings. IMPRESSION: No significant change Signer Name: Lewis Roe MD Signed: 04/29/2022 4:44 AM Workstation Name: [id number]
[2022-04-29 05:36] LABS: Basophils # (Auto) 0.1 K/mm3 (0.0-0.1); Basophils % (Auto) 0.6 % (0.0-1.8); Eosinophils # (Auto) 0.8 K/mm3 (0.0-0.4); Eosinophils % (Auto) 3.9 % (0.0-4.3); Hematocrit 27.9 % (35.5-45.6); Lymphocytes # (Auto) 1.1 K/mm3 (1.2-5.4); Lymphocytes % (Auto) 5.7 % (13.4-35.0); Mean Corpuscular HGB Conc 32 % (32-34); Mean Corpuscular Volume 88 fl (84-94); Monocytes # (Auto) 1.5 K/mm3 (0.0-0.8); Monocytes % (Auto) 7.8 % (0.0-7.3); Platelet Count 481 K/mm3 (140-440); Red Blood Count 3.17 M/mm3 (3.65-5.03); Red Cell Distribution Width 15.1 % (13.2-15.2)
[2022-04-29 06:05] LABS: Calcium 8.1 mg/dL (8.4-10.2)
[2022-04-29] MEDS: FAMOTIDINE 20 MG TAB FEEDTUBE SCH ×2 (09:42→21:38)
[2022-04-29] MEDS: HEPARIN 5,000 UNIT/1 ML VIAL SUB-Q SCH ×2 (09:42→21:38)
[2022-04-29] MEDS: SENNOSIDES/DOCUSATE SODIUM 8.6/50 MG TAB FEEDTUBE SCH ×2 (09:42→21:38)
[2022-04-29] MEDS: AMIODARONE 200 MG TAB PO SCH (09:42)
[2022-04-29] MEDS: ASPIRIN 81 MG TAB CHEW FEEDTUBE SCH (09:42)
--- NOTE | 2022-04-29 11:00 | Progress Note ---
Assessment and Plan 1. Acute kidney injury: Vasomotor VINCENT in the setting of shock. IV contrast on 04/17. Renal US negative. Monitor renal function. Slight increase in the Creatinine level since yesterday noted. Avoid nephrotoxic agents. Meds dosage based on GFR. 2. FEN: Hypernatremia, improved. Anion-gap metabolic acidosis, improved, monitor. Replete lytes as needed. Monitor lytes and volume status. 3. S/p V.fib Cardiac arrest, POA: On Amio. Followed by Cards. Monitor. 4. Shock: Currently off pressors. Monitor. 5. A.fib: Followed by Cards. Monitor. 6. Acute Hypoxemic Respiratory Failure: Bilateral Pneumonia- Probable Aspiration. CTA negative for PE, reveals bilateral airspace disease, greater in the Upper lobs. Intubated in the filed during code on 04/17. Self extubated and Re-intubated 04/28. Monitor. 7. Elevated ALT & AST: Improved. 8. Acute metabolic encephalopathy, POA: Monitor. 9. Rhabdomyolysis: Trend CK. Care plan d/w . Subjective: Patient was seen and examined at the bedside. at the the bedside. Examination: General appearance: well-developed, appears stated age, obese, intubated, on vent HEENT: atraumatic, no icterus, pupils equal Neck: trachea midline Respiratory: coarse breath sounds bilaterally Heart: S1S2, no murmur Abdomen: soft, bowel sounds heard, NT Integumentary: no obvious rash Neurologic: somnolent, able to move extremities Ext: no edema Subjective Date of service: 04/29/22 Principal diagnosis: AHRF; AMS; Pneumonia; Shock; DM II; Severe Metabolic Acidosis Objective - Vital Signs Vital signs: Vital Signs - 12hr 04/28/22 04/28/22 04/28/22 23:00 23:01 23:15 Temperature Pulse Rate 92 H 86 89 Pulse Rate [ From Monitor] Respiratory 26 H 25 H Rate Blood Pressure 122/64 122/64 O2 Sat by Pulse 98 100 Oximetry 04/28/22 04/28/22 04/28/22 23:16 23:30 23:46 Temperature Pulse Rate 87 86 80 Pulse Rate [ From Monitor] Respiratory 23 23 23 Rate Blood Pressure 122/64 117/74 117/74 O2 Sat by Pulse 100 97 100 Oximetry 08/04/29/22 04/29/22 00:00 00:16 00:30 Temperature 99.3 F Pulse Rate 78 80 87 Pulse Rate [ 87 From Monitor] Respiratory 24 23 24 Rate Blood Pressure 144/93 144/93 139/81 O2 Sat by Pulse 100 100 98 Oximetry 04/29/22 04/29/22 04/29/22 00:46 01:00 01:16 Temperature Pulse Rate 85 83 79 Pulse Rate [ From Monitor] Respiratory 24 24 24 Rate Blood Pressure 139/81 130/76 130/76 O2 Sat by Pulse 100 97 100 Oximetry 04/29/22 04/29/22 04/29/22 01:30 01:46 02:00 Temperature Pulse Rate 88 85 78 Pulse Rate [ From Monitor] Respiratory 24 24 24 Rate Blood Pressure 134/77 134/77 125/68 O2 Sat by Pulse 99 100 99 Oximetry 04/29/22 04/29/22 04/29/22 02:16 02:30 02:46 Temperature Pulse Rate 80 75 80 Pulse Rate [ From Monitor] Respiratory 24 24 24 Rate Blood Pressure 125/68 131/73 131/73 O2 Sat by Pulse 100 99 100 Oximetry 04/29/22 04/29/22 04/29/22 03:00 03:07 03:10 Temperature Pulse Rate 77 80 81 Pulse Rate [ From Monitor] Respiratory 24 Rate Blood Pressure 147/85 147/85 O2 Sat by Pulse 98 100 Oximetry 04/29/22 04/29/22 04/29/22 03:11 03:16 03:30 Temperature Pulse Rate 77 77 Pulse Rate [ 81 From Monitor] Respiratory 24 24 23 Rate Blood Pressure 147/85 156/90 O2 Sat by Pulse 100 100 100 Oximetry 04/29/22 04/29/22 04/29/22 03:46 04:00 04:16 Temperature 99.6 F Pulse Rate 90 79 80 Pulse Rate [ From Monitor] Respiratory 22 26 H 24 Rate Blood Pressure 156/90 146/80 146/80 O2 Sat by Pulse 100 100 100 Oximetry 04/29/22 04/29/22 04/29/22 04:30 04:46 05:00 Temperature Pulse Rate 81 88 81 Pulse Rate [ From Monitor] Respiratory 24 24 24 Rate Blood Pressure 157/70 156/90 156/90 O2 Sat by Pulse 100 100 100 Oximetry 04/29/22 04/29/22 04/29/22 05:16 05:30 05:46 Temperature Pulse Rate 79 90 86 Pulse Rate [ From Monitor] Respiratory 24 28 H 24 Rate Blood Pressure 131/74 131/74 127/74 O2 Sat by Pulse 100 100 100 Oximetry 04/29/22 04/29/22 04/29/22 06:00 06:16 06:30 Temperature Pulse Rate 81 81 82 Pulse Rate [ From Monitor] Respiratory 24 24 24 Rate Blood Pressure 119/71 127/74 122/81 O2 Sat by Pulse 100 100 100 Oximetry 04/29/22 04/29/22 04/29/22 06:46 07:00 07:16 Temperature Pulse Rate 84 84 80 Pulse Rate [ From Monitor] Respiratory 24 21 18 Rate Blood Pressure 122/81 122/76 122/81 O2 Sat by Pulse 100 100 100 Oximetry 04/29/22 04/29/22 04/29/22 07:30 07:46 08:00 Temperature Pulse Rate 85 100 H 93 H Pulse Rate [ 85 From Monitor] Respiratory 24 30 H 27 H Rate Blood Pressure 119/66 119/66 130/73 O2 Sat by Pulse 100 100 100 Oximetry 04/29/22 04/29/22 04/29/22 08:16 08:30 08:46 Temperature Pulse Rate 94 H 85 89 Pulse Rate [ From Monitor] Respiratory 24 24 21 Rate Blood Pressure 130/73 130/73 129/70 O2 Sat by Pulse 100 100 100 Oximetry 04/29/22 04/29/22 04/29/22 08:57 09:00 09:16 Temperature Pulse Rate 88 88 86 Pulse Rate [ From Monitor] Respiratory 24 22 Rate Blood Pressure 126/87 117/65 117/65 O2 Sat by Pulse 100 100 100 Oximetry 04/29/22 04/29/22 04/29/22 09:30 09:46 10:00 Temperature Pulse Rate 85 89 95 H Pulse Rate [ From Monitor] Respiratory 24 24 16 Rate Blood Pressure 129/68 129/68 123/97 O2 Sat by Pulse 100 100 100 Oximetry 04/29/22 10:16 Temperature Pulse Rate 96 H Pulse Rate [ From Monitor] Respiratory 24 Rate Blood Pressure 129/68 O2 Sat by Pulse 100 Oximetry - Lab 04/29/22 04:20 04/29/22 04:20 Most recent lab results ABG pH 7.487 pH Units (7.350-7.450) H 04/29/22 03:20 ABG pCO2 37.3 mm Hg 04/29/22 03:20 ABG pO2 176.1 mm Hg (80.0-90.0) H 04/29/22 03:20 ABG HCO3 27.6 mmol/L (20.0-26.0) H 04/29/22 03:20 ABG O2 Saturation 99.2 % (95.0-99.0) H 04/29/22 03:20 Calcium 8.1 mg/dL (8.4-10.2) L 04/29/22 04:20 Phosphorus 4.10 mg/dL (2.5-4.5) D 04/29/22 04:20 Magnesium 1.90 mg/dL (1.7-2.3) 04/29/22 04:20 Urine Creatinine 90.9 mg/dL (0.1-20.0) H 04/19/22 02:08 Urine Sodium 54 mmol/L 04/19/22 02:08 Medications & Allergies - Medications Allergies/Adverse Reactions: Allergies lisinopril Allergy (Verified 04/27/22 06:02) Angioedema Home Medications: Home Medications Medication Instructions Recorded Confirmed Last Taken Type AtorvaSTATin 40 mg PO QHS 04/22/22 04/22/22 Unknown History Humulin N 22 units SQ QHS 04/22/22 04/22/22 Unknown History amLODIPine 10 mg PO QAM 04/22/22 04/22/22 Unknown History glipiZIDE 20 mg PO BID 04/22/22 04/22/22 Unknown History metFORMIN 850 mg PO TID 04/22/22 04/22/22 Unknown History Active Medications: Generic Name Dose Route Start Last Admin Trade Name Freq PRN Reason Stop Dose Admin Acetaminophen 650 mg 04/17/22 19:48 04/28/22 21:38 Acetaminophen 325 Mg Tab PO 650 mg Q6H PRN Administration Pain MILD(1-3)/Fever >100.5/CHE Albuterol 2.5 mg 04/17/22 19:48 Albuterol 2.5 Mg/3 Ml Nebu IH Q3HRT PRN Shortness Of Breath Amiodarone HCl 400 mg 04/26/22 22:00 04/29/22 09:42 Amiodarone 200 Mg Tab PO 400 mg BID FLACO Administration Aspirin 81 mg 04/20/22 12:00 04/29/22 09:42 Aspirin 81 Mg Tab Chew FEEDTUBE 81 mg QDAY FLACO Administration Atorvastatin Calcium 20 mg 04/20/22 22:00 04/28/22 20:59 Atorvastatin 20 Mg Tab FEEDTUBE 20 mg QHS FLACO Administration Dextrose 0 ml 04/17/22 23:46 Dextrose 50% In Water (25gm) 50 Ml Syringe IV Q30MIN PRN Hypoglycemia Protocol Docusate Sodium 100 mg 04/27/22 11:00 04/28/22 20:59 Docusate Sodium 100 Mg/10 Ml Oral Liqd FEEDTUBE 100 mg BID FLACO Administration Famotidine 20 mg 04/27/22 10:00 04/29/22 09:42 Famotidine 20 Mg Tab FEEDTUBE 20 mg BID FLACO Administration Fentanyl 50 mcg 04/17/22 20:22 04/18/22 03:52 Fentanyl 100 Mcg/2 Ml Inj IV 50 mcg Q10MIN PRN Administration ANALGESIA Heparin Sodium (Porcine) 5,000 unit 04/21/22 22:00 04/29/22 09:42 Heparin 5,000 Unit/1 Ml Vial SUB-Q 5,000 unit Q12HR FLACO Administration Hydrophilic Ointment 1 applic 04/18/22 06:02 04/26/22 20:29 Lip Therapy Vaseline TP 1 applic Q2HR PRN Administration Dry Lips Fentanyl Citrate 2,000 mcg in 100 mls @ 5.443 mls/hr 04/17/22 21:00 04/28/22 21:40 Fentanyl Drip Premix IV 0 mcg/kg/hr TITR FLACO 0 mls/hr Titration Protocol 1 MCG/KG/HR Propofol 1,000 mg in 100 mls @ 3.456 mls/hr 04/18/22 07:00 04/28/22 21:40 Diprivan 10 Mg/Ml IV 5 mcg/kg/min TITR FLACO 3.456 mls/hr Titration Protocol 5 MCG/KG/MIN Cefepime HCl 2 gm in 100 mls @ 200 mls/hr 04/28/22 08:00 04/29/22 00:28 Cefepime/Ns 2 Gm/100 Ml IV 200 mls/hr Q8H FLACO Administration Protocol Vancomycin HCl 1,750 mg/ 535 mls @ 333.333 mls/hr 04/28/22 10:00 04/28/22 09:49 Sodium Chloride IV 333.333 mls/hr Q24H FLACO Administration Dexmedetomidine HCl 400 mcg/ 104 mls @ 5.99 mls/hr 04/28/22 11:00 04/28/22 13:52 Sodium Chloride IV 0 mcg/kg/hr TITRATE FLACO 0 mls/hr Titration Protocol 0.2 MCG/KG/HR NORepinephrine/NS 8 MG-250 ML 8 mg in 250 mls @ 3.75 mls/hr 04/28/22 15:00 04/29/22 04:39 Norepinephrine/Ns 8 Mg-250 Ml (Double Conc) IV 4 mcg/min TITRATE FLACO 7.5 mls/hr Titration Protocol 2 MCG/MIN Insulin Glargine 25 units 04/29/22 11:00 Insulin Glargine 100 Units/Ml SUB-Q BID FLACO Insulin Human Lispro 0 unit 04/18/22 00:00 04/29/22 05:46 Insulin Lispro 100 Unit/Ml SUB-Q 4 unit Q6HR FLACO Administration Protocol Insulin Human Lispro 10 unit 04/29/22 12:00 Insulin Lispro 100 Unit/Ml SUB-Q Q6HR FLACO Multi-Ingred Cream/Lotion/Oil/Oint 1 applic 04/18/22 06:02 Mineral Oil/Petrolatum, White Ophth Oint 3.5 Gm OU Q4HR PRN Dry Eye(s) Oxycodone/Acetaminophen 1 tab 04/22/22 11:05 Oxycodone /Acetaminophen 5-325mg Tab FEEDTUBE Q6H PRN Pain, Moderate (4-6) Senna/Docusate Sodium 2 tab 04/28/22 10:00 04/29/22 09:42 Sennosides/Docusate Sodium 8.6/50 Mg Tab FEEDTUBE Not Given BID FLACO Sodium Chloride 10 ml 04/17/22 22:00 04/29/22 09:43 Sodium Chloride 0.9% 10 Ml Flush Syringe IV 10 ml BID FLACO Administration Sodium Chloride 10 ml 04/17/22 19:48 Sodium Chloride 0.9% 10 Ml Flush Syringe IV PRN PRN LINE FLUSH
--- NOTE | 2022-04-29 11:02 | Progress Note ---
Assessment and Plan This is a 62 year old male with OHS, HTN, DM, metabolic syndrome, s/p vfib cardiac arrest, Septic shock, aspiration pneumonia, transaminitis, VINCENT with acute metabolic encephalopathy Acute hypoxemic respiratory failure on MVS s/p cardiac arrest Altered mental status Aspiration pneumonia Shock (Cardiogenic +/- Septic) Severe Metabolic Acidosis Morbid Obesity BMI 37.5 Diabetes type II Obesity hypoventilation syndrome wean down PEEP to 10, Wean vasopressor support, keep MAP >65 to allow for continued renal perfusion ABG, CXR in am Diuretic therapy for pulmonary edema, discussed with renal service - continue to titrate supplemental oxygen to keep SpO2 89-92% - VAP bundle addressed, aspiration precautions - continue lung protective strategies - continue bronchodilators with pulmonary hygiene per RT - wean per pulmonary driven protocols otherwise - avoid nephrotoxins, renally dose all medications - continue accuchecks with glycemic control per SSI (While critically ill target blood glucose of 140-180 mg/dL; avoid hypoglycemia) - continue to avoid benzodiazepines, reduce the possibility of delirium - prn analgesia per CPOT score - Maintenance of sleep-wake cycle, avoid delirium - continue enteral nutritional support at goal rate as tolerated - Stress ulcer and VTE prophylaxis - continue mobility per facility protocol, off loading and frequent turning for pressure ulcer prevention - Monitor hemodynamics closely - continue other care per attending / other consultants - discharge planning ongoing concurrently COVID SPECIFIC INTERVENTIONS - COVID-19 test result positive CONDITION: CRITICAL PROGNOSIS: GUARDED CODE STATUS: FULL CODE The high probability of a clinically significant, sudden or life-threatening deterioration of the [respiratory, cardiovascular,] system(s) required my full and direct attention, intervention and personal management. The aggregate critical care time was [35] minutes without overlap. Time includes spent on; [x] Data Review and interpretation [x] Patient assessment and monitoring of vital signs [x] Documentation [x] Medication orders and management Subjective Date of service: 04/29/22 Principal diagnosis: AHRF; AMS; Pneumonia; Shock; DM II; Severe Metabolic Acidosis Interval history: Patient is seen today for: Acute hypoxemic respiratory failure; AMS; Aspiration pneumonia; Shock (Cardiogenic +/- Septic); DM II; Severe Metabolic Acidosis Seen and examined at bedside; 24hour events reviewed; nursing and respiratory care staff consulted; no adverse overnight events reported to me; resting in bed; remains on MVS; PEEP +12/100%, no emesis or overt aspiration; no fevers, no vomiting. Self-extubated yesterday, needed re-intubation,. CXR shows pulmonary edema One dose of Furosemide given with robust response Required vasopressor support for a brief period, on Norepinephrine at 4mcg, but being titrated off On Propofol at 20 mcg, Fentanyl 3 Objective Vital Signs - 12hr 04/28/22 04/28/22 04/28/22 23:15 23:16 23:30 Temperature Pulse Rate 89 87 86 Pulse Rate [ From Monitor] Respiratory 23 23 Rate Blood Pressure 122/64 117/74 O2 Sat by Pulse 100 97 Oximetry 04/28/22 04/29/22 04/29/22 23:46 00:00 00:16 Temperature 99.3 F Pulse Rate 80 78 80 Pulse Rate [ 87 From Monitor] Respiratory 23 24 23 Rate Blood Pressure 117/74 144/93 144/93 O2 Sat by Pulse 100 100 100 Oximetry 04/29/22 04/29/22 04/29/22 00:30 00:46 01:00 Temperature Pulse Rate 87 85 83 Pulse Rate [ From Monitor] Respiratory 24 24 24 Rate Blood Pressure 139/81 139/81 130/76 O2 Sat by Pulse 98 100 97 Oximetry 04/29/22 04/29/22 04/29/22 01:16 01:30 01:46 Temperature Pulse Rate 79 88 85 Pulse Rate [ From Monitor] Respiratory 24 24 24 Rate Blood Pressure 130/76 134/77 134/77 O2 Sat by Pulse 100 99 100 Oximetry 04/29/22 04/29/22 04/29/22 02:00 02:16 02:30 Temperature Pulse Rate 78 80 75 Pulse Rate [ From Monitor] Respiratory 24 24 24 Rate Blood Pressure 125/68 125/68 131/73 O2 Sat by Pulse 99 100 99 Oximetry 04/29/22 04/29/22 04/29/22 02:46 03:00 03:07 Temperature Pulse Rate 80 77 80 Pulse Rate [ From Monitor] Respiratory 24 24 Rate Blood Pressure 131/73 147/85 147/85 O2 Sat by Pulse 100 98 100 Oximetry 04/29/22 04/29/22 04/29/22 03:10 03:11 03:16 Temperature Pulse Rate 81 77 Pulse Rate [ 81 From Monitor] Respiratory 24 24 Rate Blood Pressure 147/85 O2 Sat by Pulse 100 100 Oximetry 04/29/22 04/29/22 04/29/22 03:30 03:46 04:00 Temperature 99.6 F Pulse Rate 77 90 79 Pulse Rate [ From Monitor] Respiratory 23 22 26 H Rate Blood Pressure 156/90 156/90 146/80 O2 Sat by Pulse 100 100 100 Oximetry 04/29/22 04/29/22 04/29/22 04:16 04:30 04:46 Temperature Pulse Rate 80 81 88 Pulse Rate [ From Monitor] Respiratory 24 24 24 Rate Blood Pressure 146/80 157/70 156/90 O2 Sat by Pulse 100 100 100 Oximetry 04/29/22 04/29/22 04/29/22 05:00 05:16 05:30 Temperature Pulse Rate 81 79 90 Pulse Rate [ From Monitor] Respiratory 24 24 28 H Rate Blood Pressure 156/90 131/74 131/74 O2 Sat by Pulse 100 100 100 Oximetry 04/29/22 04/29/22 04/29/22 05:46 06:00 06:16 Temperature Pulse Rate 86 81 81 Pulse Rate [ From Monitor] Respiratory 24 24 24 Rate Blood Pressure 127/74 119/71 127/74 O2 Sat by Pulse 100 100 100 Oximetry 04/29/22 04/29/22 04/29/22 06:30 06:46 07:00 Temperature Pulse Rate 82 84 84 Pulse Rate [ From Monitor] Respiratory 24 24 21 Rate Blood Pressure 122/81 122/81 122/76 O2 Sat by Pulse 100 100 100 Oximetry 04/29/22 04/29/22 04/29/22 07:16 07:30 07:46 Temperature Pulse Rate 80 85 100 H Pulse Rate [ From Monitor] Respiratory 18 24 30 H Rate Blood Pressure 122/81 119/66 119/66 O2 Sat by Pulse 100 100 100 Oximetry 04/29/22 04/29/22 04/29/22 08:00 08:16 08:30 Temperature Pulse Rate 93 H 94 H 85 Pulse Rate [ 85 From Monitor] Respiratory 27 H 24 24 Rate Blood Pressure 130/73 130/73 130/73 O2 Sat by Pulse 100 100 100 Oximetry 04/29/22 04/29/22 04/29/22 08:46 08:57 09:00 Temperature Pulse Rate 89 88 88 Pulse Rate [ From Monitor] Respiratory 21 24 Rate Blood Pressure 129/70 126/87 117/65 O2 Sat by Pulse 100 100 100 Oximetry 04/29/22 04/29/22 04/29/22 09:16 09:30 09:46 Temperature Pulse Rate 86 85 89 Pulse Rate [ From Monitor] Respiratory 22 24 24 Rate Blood Pressure 117/65 129/68 129/68 O2 Sat by Pulse 100 100 100 Oximetry 04/29/22 04/29/22 10:00 10:16 Temperature Pulse Rate 95 H 96 H Pulse Rate [ From Monitor] Respiratory 16 24 Rate Blood Pressure 123/97 129/68 O2 Sat by Pulse 100 100 Oximetry Constitutional: no acute distress, asleep, other (elderly obese male ) Eyes: non-icteric ENT: oropharynx moist Neck: supple, no JVD, other (RIJ CVL) Effort: normal Ascultation: Bilateral: diminished breath sounds, rales (improved), rhonchi (scant) Percussion: Bilateral: not dull Cardiovascular: irregular rhythm, other (No R/M) Gastrointestinal: normoactive bowel sounds, soft, non-tender, non-distended (protuberant), other (Dunbar catheter) Integumentary: rash (erythematous rash over anterior chest wall and upper extremities) Extremities: no cyanosis, no edema, pulses normal, no ischemia or petechiae, edema (bilateral upper extemities) Neurologic: non-focal exam (grossly), pupils equal and round, other (obeys simple commands) Psychiatric: other (Unable to assess due to mental status.) CBC and BMP: 05/02/22 04:59 05/02/22 04:59 ABG, PT/INR, D-dimer: ABG ABG pH 7.487 pH Units (7.350-7.450) H 04/29/22 03:20 ABG pCO2 37.3 mm Hg 04/29/22 03:20 ABG pO2 176.1 mm Hg (80.0-90.0) H 04/29/22 03:20 ABG O2 Saturation 99.2 % (95.0-99.0) H 04/29/22 03:20 PT/INR, D-dimer PT 15.6 Sec. (12.2-14.9) H 04/18/22 Unknown INR 1.08 (0.87-1.13) 04/18/22 Unknown Abnormal lab findings: Abnormal Labs 04/17/22 04/17/22 04/17/22 19:18 19:55 19:56 WBC RBC Hgb Hct RDW Plt Count Lymph % (Auto) [place] % (Auto) Eos % (Auto) Lymph # (Auto) [place] # (Auto) Eos # (Auto) Seg Neutrophils % Seg Neuts % (Manual) Lymphocytes % (Manual) Eosinophils % (Manual) Seg Neutrophils # Seg Neutrophils # Man Lymphocytes # (Manual) Eosinophils # (Manual) PT Activated Coag Time Heparin Anti-Xa Level ABG pH 7.120 L* ABG pO2 45.3 L ABG HCO3 18.5 L ABG O2 Saturation 68.3 L ABG Base Excess -11.5 L ABG Hemoglobin Oxyhemoglobin 66.8 L Sodium Potassium Chloride 94.2 L Carbon Dioxide 17 L BUN Creatinine 1.6 H Glucose 315 H POC Glucose 277 H Lactic Acid Calcium Phosphorus Magnesium AST 529 H ALT 318 H Alkaline Phosphatase 137 H Total Creatine Kinase 398 H CK-MB (CK-2) 17.9 H CK-MB (CK-2) Rel Index 4.4 H Troponin T 0.205 H* C-Reactive Protein Total Protein Albumin Triglycerides Ur Specific [place] Urine Blood Urine WBC (Auto) Urine Creatinine 04/17/22 04/17/22 04/17/22 19:58 19:58 21:42 WBC 11.9 H RBC 5.17 H Hgb 15.5 H Hct 48.0 H RDW Plt Count Lymph % (Auto) [place] % (Auto) Eos % (Auto) Lymph # (Auto) [place] # (Auto) Eos # (Auto) Seg Neutrophils % 71.7 H Seg Neuts % (Manual) Lymphocytes % (Manual) Eosinophils % (Manual) Seg Neutrophils # 8.5 H Seg Neutrophils # Man Lymphocytes # (Manual) Eosinophils # (Manual) PT Activated Coag Time Heparin Anti-Xa Level ABG pH ABG pO2 ABG HCO3 ABG O2 Saturation ABG Base Excess ABG Hemoglobin Oxyhemoglobin Sodium Potassium Chloride 95.0 L Carbon Dioxide 19 L BUN Creatinine 1.5 H Glucose 306 H POC Glucose Lactic Acid Calcium Phosphorus Magnesium AST ALT Alkaline Phosphatase Total Creatine Kinase 412 H CK-MB (CK-2) 19.2 H CK-MB (CK-2) Rel Index 4.6 H Troponin T 0.285 H* D C-Reactive Protein Total Protein Albumin Triglycerides Ur Specific [place] Urine Blood Urine WBC (Auto) Urine Creatinine 04/17/22 04/18/22 04/18/22 21:42 00:40 01:07 WBC RBC Hgb Hct RDW Plt Count Lymph % (Auto) [place] % (Auto) Eos % (Auto) Lymph # (Auto) [place] # (Auto) Eos # (Auto) Seg Neutrophils % Seg Neuts % (Manual) Lymphocytes % (Manual) Eosinophils % (Manual) Seg Neutrophils # Seg Neutrophils # Man Lymphocytes # (Manual) Eosinophils # (Manual) PT Activated Coag Time Heparin Anti-Xa Level ABG pH ABG pO2 ABG HCO3 ABG O2 Saturation ABG Base Excess ABG Hemoglobin Oxyhemoglobin Sodium Potassium Chloride Carbon Dioxide BUN Creatinine Glucose POC Glucose 320 H Lactic Acid 7.90 H* 7.90 H* Calcium Phosphorus Magnesium AST ALT Alkaline Phosphatase Total Creatine Kinase CK-MB (CK-2) CK-MB (CK-2) Rel Index Troponin T C-Reactive Protein Total Protein Albumin Triglycerides Ur Specific [place] Urine Blood Urine WBC (Auto) Urine Creatinine 04/18/22 04/18/22 04/18/22 01:07 04:00 06:04 WBC RBC Hgb Hct RDW Plt Count Lymph % (Auto) [place] % (Auto) Eos % (Auto) Lymph # (Auto) [place] # (Auto) Eos # (Auto) Seg Neutrophils % Seg Neuts % (Manual) Lymphocytes % (Manual) Eosinophils % (Manual) Seg Neutrophils # Seg Neutrophils # Man Lymphocytes # (Manual) Eosinophils # (Manual) PT Activated Coag Time Heparin Anti-Xa Level < 0.10 L ABG pH ABG pO2 ABG HCO3 ABG O2 Saturation ABG Base Excess ABG Hemoglobin Oxyhemoglobin Sodium Potassium Chloride Carbon Dioxide BUN Creatinine Glucose POC Glucose 305 H Lactic Acid Calcium Phosphorus Magnesium AST ALT Alkaline Phosphatase Total Creatine Kinase 488 H CK-MB (CK-2) 25.3 H CK-MB (CK-2) Rel Index 5.1 H Troponin T 0.665 H* D C-Reactive Protein Total Protein Albumin Triglycerides Ur Specific [place] Urine Blood Urine WBC (Auto) Urine Creatinine 04/18/22 04/18/22 04/18/22 06:20 11:10 12:48 WBC RBC Hgb Hct RDW Plt Count Lymph % (Auto) [place] % (Auto) Eos % (Auto) Lymph # (Auto) [place] # (Auto) Eos # (Auto) Seg Neutrophils % Seg Neuts % (Manual) Lymphocytes % (Manual) Eosinophils % (Manual) Seg Neutrophils # Seg Neutrophils # Man Lymphocytes # (Manual) Eosinophils # (Manual) PT Activated Coag Time Heparin Anti-Xa Level < 0.10 L ABG pH 7.119 L* 7.304 L ABG pO2 56.1 L 103.5 H ABG HCO3 18.4 L 14.4 L ABG O2 Saturation 80.7 L ABG Base Excess -11.4 L -10.6 L ABG Hemoglobin 13.5 L Oxyhemoglobin 79.2 L Sodium Potassium Chloride Carbon Dioxide BUN Creatinine Glucose POC Glucose Lactic Acid Calcium Phosphorus Magnesium AST ALT Alkaline Phosphatase Total Creatine Kinase CK-MB (CK-2) CK-MB (CK-2) Rel Index Troponin T C-Reactive Protein Total Protein Albumin Triglycerides Ur Specific [place] Urine Blood Urine WBC (Auto) Urine Creatinine 04/18/22 04/18/22 04/18/22 13:13 16:00 16:00 WBC RBC Hgb Hct RDW Plt Count Lymph % (Auto) [place] % (Auto) Eos % (Auto) Lymph # (Auto) [place] # (Auto) Eos # (Auto) Seg Neutrophils % Seg Neuts % (Manual) Lymphocytes % (Manual) Eosinophils % (Manual) Seg Neutrophils # Seg Neutrophils # Man Lymphocytes # (Manual) Eosinophils # (Manual) PT Activated Coag Time Heparin Anti-Xa Level ABG pH ABG pO2 ABG HCO3 ABG O2 Saturation ABG Base Excess ABG Hemoglobin Oxyhemoglobin Sodium Potassium Chloride Carbon Dioxide BUN Creatinine Glucose POC Glucose 334 H Lactic Acid 7.00 H* Calcium Phosphorus 5.70 H Magnesium 1.30 L AST ALT Alkaline Phosphatase Total Creatine Kinase 969 H CK-MB (CK-2) 55.9 H CK-MB (CK-2) Rel Index 5.7 H Troponin T 1.580 H* D C-Reactive Protein Total Protein Albumin Triglycerides Ur Specific [place] Urine Blood Urine WBC (Auto) Urine Creatinine 04/18/22 04/18/22 04/18/22 16:00 18:00 18:01 WBC RBC Hgb Hct RDW Plt Count Lymph % (Auto) [place] % (Auto) Eos % (Auto) Lymph # (Auto) [place] # (Auto) Eos # (Auto) Seg Neutrophils % Seg Neuts % (Manual) Lymphocytes % (Manual) Eosinophils % (Manual) Seg Neutrophils # Seg Neutrophils # Man Lymphocytes # (Manual) Eosinophils # (Manual) PT Activated Coag Time Heparin Anti-Xa Level < 0.10 L ABG pH ABG pO2 ABG HCO3 ABG O2 Saturation ABG Base Excess ABG Hemoglobin Oxyhemoglobin Sodium 136 L Potassium 6.3 H* D Chloride 97.6 L Carbon Dioxide 18 L BUN 34 H Creatinine 3.5 H Glucose 409 H POC Glucose 397 H Lactic Acid Calcium 6.8 L Phosphorus Magnesium AST ALT Alkaline Phosphatase Total Creatine Kinase CK-MB (CK-2) CK-MB (CK-2) Rel Index Troponin T C-Reactive Protein Total Protein Albumin Triglycerides Ur Specific [place] Urine Blood Urine WBC (Auto) Urine Creatinine 04/18/22 04/18/22 04/18/22 19:13 20:58 21:22 WBC RBC Hgb Hct RDW Plt Count Lymph % (Auto) [place] % (Auto) Eos % (Auto) Lymph # (Auto) [place] # (Auto) Eos # (Auto) Seg Neutrophils % Seg Neuts % (Manual) Lymphocytes % (Manual) Eosinophils % (Manual) Seg Neutrophils # Seg Neutrophils # Man Lymphocytes # (Manual) Eosinophils # (Manual) PT Activated Coag Time Heparin Anti-Xa Level ABG pH 7.502 H ABG pO2 144.5 H ABG HCO3 ABG O2 Saturation ABG Base Excess ABG Hemoglobin 12.5 L Oxyhemoglobin Sodium Potassium Chloride Carbon Dioxide BUN Creatinine Glucose POC Glucose 321 H 307 H Lactic Acid Calcium Phosphorus Magnesium AST ALT Alkaline Phosphatase Total Creatine Kinase CK-MB (CK-2) CK-MB (CK-2) Rel Index Troponin T C-Reactive Protein Total Protein Albumin Triglycerides Ur Specific [place] Urine Blood Urine WBC (Auto) Urine Creatinine 04/18/22 04/18/22 04/18/22 21:30 21:30 Unknown WBC RBC Hgb Hct RDW Plt Count Lymph % (Auto) [place] % (Auto) Eos % (Auto) Lymph # (Auto) [place] # (Auto) Eos # (Auto) Seg Neutrophils % Seg Neuts % (Manual) 81.0 H Lymphocytes % (Manual) 12.0 L Eosinophils % (Manual) Seg Neutrophils # 9.8 H Seg Neutrophils # Man 8.7 H Lymphocytes # (Manual) Eosinophils # (Manual) PT Activated Coag Time Heparin Anti-Xa Level ABG pH ABG pO2 ABG HCO3 ABG O2 Saturation ABG Base Excess ABG Hemoglobin Oxyhemoglobin Sodium Potassium Chloride 96.6 L Carbon Dioxide BUN 37 H Creatinine 3.6 H Glucose 312 H POC Glucose Lactic Acid 5.50 H* Calcium 7.3 L Phosphorus Magnesium AST ALT Alkaline Phosphatase Total Creatine Kinase CK-MB (CK-2) CK-MB (CK-2) Rel Index Troponin T C-Reactive Protein Total Protein Albumin Triglycerides Ur Specific [place] Urine Blood Urine WBC (Auto) Urine Creatinine 04/18/22 04/18/22 04/19/22 Unknown Unknown 00:35 WBC RBC Hgb Hct RDW Plt Count Lymph % (Auto) [place] % (Auto) Eos % (Auto) Lymph # (Auto) [place] # (Auto) Eos # (Auto) Seg Neutrophils % Seg Neuts % (Manual) Lymphocytes % (Manual) Eosinophils % (Manual) Seg Neutrophils # Seg Neutrophils # Man Lymphocytes # (Manual) Eosinophils # (Manual) PT 15.6 H Activated Coag Time Heparin Anti-Xa Level ABG pH ABG pO2 ABG HCO3 ABG O2 Saturation ABG Base Excess ABG Hemoglobin Oxyhemoglobin Sodium Potassium Chloride Carbon Dioxide 18 L BUN 26 H Creatinine 2.5 H D Glucose 330 H POC Glucose Lactic Acid Calcium 7.9 L Phosphorus Magnesium AST 463 H ALT 249 H Alkaline Phosphatase Total Creatine Kinase CK-MB (CK-2) CK-MB (CK-2) Rel Index Troponin T 2.670 H* D C-Reactive Protein Total Protein Albumin 3.3 L Triglycerides Ur Specific [place] Urine Blood Urine WBC (Auto) Urine Creatinine 04/19/22 04/19/22 04/19/22 00:39 02:08 02:08 WBC RBC Hgb Hct RDW Plt Count Lymph % (Auto) [place] % (Auto) Eos % (Auto) Lymph # (Auto) [place] # (Auto) Eos # (Auto) Seg Neutrophils % Seg Neuts % (Manual) Lymphocytes % (Manual) Eosinophils % (Manual) Seg Neutrophils # Seg Neutrophils # Man Lymphocytes # (Manual) Eosinophils # (Manual) PT Activated Coag Time Heparin Anti-Xa Level ABG pH ABG pO2 ABG HCO3 ABG O2 Saturation ABG Base Excess ABG Hemoglobin Oxyhemoglobin Sodium Potassium Chloride Carbon Dioxide BUN Creatinine Glucose POC Glucose 263 H Lactic Acid Calcium Phosphorus Magnesium AST ALT Alkaline Phosphatase Total Creatine Kinase CK-MB (CK-2) CK-MB (CK-2) Rel Index Troponin T C-Reactive Protein Total Protein Albumin Triglycerides Ur Specific [place] Urine Blood Large A Urine WBC (Auto) 88.0 H Urine Creatinine 90.9 H 04/19/22 04/19/22 04/19/22 02:08 03:45 03:45 WBC 14.2 H RBC Hgb Hct RDW Plt Count Lymph % (Auto) [place] % (Auto) Eos % (Auto) Lymph # (Auto) [place] # (Auto) Eos # (Auto) Seg Neutrophils % Seg Neuts % (Manual) Lymphocytes % (Manual) Eosinophils % (Manual) Seg Neutrophils # Seg Neutrophils # Man Lymphocytes # (Manual) Eosinophils # (Manual) PT Activated Coag Time Heparin Anti-Xa Level 0.18 L ABG pH ABG pO2 ABG HCO3 ABG O2 Saturation ABG Base Excess ABG Hemoglobin Oxyhemoglobin Sodium Potassium Chloride 94.2 L Carbon Dioxide BUN 39 H Creatinine 3.8 H Glucose 243 H POC Glucose Lactic Acid Calcium 7.1 L Phosphorus Magnesium 1.50 L AST 380 H ALT 289 H Alkaline Phosphatase Total Creatine Kinase CK-MB (CK-2) CK-MB (CK-2) Rel Index Troponin T C-Reactive Protein Total Protein 5.4 L Albumin 2.5 L Triglycerides Ur Specific [place] Urine Blood Urine WBC (Auto) Urine Creatinine 04/19/22 04/19/22 04/19/22 03:45 06:01 07:11 WBC RBC Hgb Hct RDW Plt Count Lymph % (Auto) [place] % (Auto) Eos % (Auto) Lymph # (Auto) [place] # (Auto) Eos # (Auto) Seg Neutrophils % Seg Neuts % (Manual) Lymphocytes % (Manual) Eosinophils % (Manual) Seg Neutrophils # Seg Neutrophils # Man Lymphocytes # (Manual) Eosinophils # (Manual) PT Activated Coag Time Heparin Anti-Xa Level ABG pH ABG pO2 ABG HCO3 ABG O2 Saturation ABG Base Excess ABG Hemoglobin Oxyhemoglobin Sodium Potassium Chloride Carbon Dioxide BUN Creatinine Glucose POC Glucose 165 H Lactic Acid 4.00 H* Calcium Phosphorus Magnesium AST ALT Alkaline Phosphatase Total Creatine Kinase 3270 H CK-MB (CK-2) 28.5 H CK-MB (CK-2) Rel Index Troponin T 2.980 H* C-Reactive Protein Total Protein Albumin Triglycerides Ur Specific [place] Urine Blood Urine WBC (Auto) Urine Creatinine 04/19/22 04/19/22 04/19/22 07:50 08:50 12:49 WBC RBC Hgb Hct RDW Plt Count Lymph % (Auto) [place] % (Auto) Eos % (Auto) Lymph # (Auto) [place] # (Auto) Eos # (Auto) Seg Neutrophils % Seg Neuts % (Manual) Lymphocytes % (Manual) Eosinophils % (Manual) Seg Neutrophils # Seg Neutrophils # Man Lymphocytes # (Manual) Eosinophils # (Manual) PT Activated Coag Time Heparin Anti-Xa Level ABG pH 7.471 H ABG pO2 58.9 L ABG HCO3 27.1 H ABG O2 Saturation 91.7 L ABG Base Excess 3.4 H ABG Hemoglobin 12.2 L Oxyhemoglobin 90.0 L Sodium Potassium Chloride Carbon Dioxide BUN Creatinine Glucose POC Glucose 331 H Lactic Acid 3.40 H* Calcium Phosphorus Magnesium AST ALT Alkaline Phosphatase Total Creatine Kinase CK-MB (CK-2) CK-MB (CK-2) Rel Index Troponin T C-Reactive Protein Total Protein Albumin Triglycerides Ur Specific [place] Urine Blood Urine WBC (Auto) Urine Creatinine 04/19/22 04/19/22 04/19/22 16:15 19:25 21:17 WBC RBC Hgb Hct RDW Plt Count Lymph % (Auto) [place] % (Auto) Eos % (Auto) Lymph # (Auto) [place] # (Auto) Eos # (Auto) Seg Neutrophils % Seg Neuts % (Manual) Lymphocytes % (Manual) Eosinophils % (Manual) Seg Neutrophils # Seg Neutrophils # Man Lymphocytes # (Manual) Eosinophils # (Manual) PT Activated Coag Time Heparin Anti-Xa Level ABG pH ABG pO2 ABG HCO3 ABG O2 Saturation ABG Base Excess ABG Hemoglobin Oxyhemoglobin Sodium Potassium Chloride Carbon Dioxide BUN Creatinine Glucose POC Glucose 304 H 251 H Lactic Acid 4.00 H* Calcium Phosphorus Magnesium AST ALT Alkaline Phosphatase Total Creatine Kinase CK-MB (CK-2) CK-MB (CK-2) Rel Index Troponin T C-Reactive Protein Total Protein Albumin Triglycerides Ur Specific [place] Urine Blood Urine WBC (Auto) Urine Creatinine 04/19/22 04/20/22 04/20/22 23:00 04:12 04:12 WBC 12.2 H RBC Hgb 11.6 L Hct 35.3 L RDW Plt Count Lymph % (Auto) [place] % (Auto) Eos % (Auto) Lymph # (Auto) [place] # (Auto) Eos # (Auto) Seg Neutrophils % Seg Neuts % (Manual) Lymphocytes % (Manual) Eosinophils % (Manual) Seg Neutrophils # Seg Neutrophils # Man Lymphocytes # (Manual) Eosinophils # (Manual) PT Activated Coag Time Heparin Anti-Xa Level 0.15 L ABG pH ABG pO2 ABG HCO3 ABG O2 Saturation ABG Base Excess ABG Hemoglobin Oxyhemoglobin Sodium Potassium Chloride Carbon Dioxide BUN Creatinine Glucose POC Glucose 236 H Lactic Acid Calcium Phosphorus Magnesium AST ALT Alkaline Phosphatase Total Creatine Kinase CK-MB (CK-2) CK-MB (CK-2) Rel Index Troponin T C-Reactive Protein Total Protein Albumin Triglycerides Ur Specific [place] Urine Blood Urine WBC (Auto) Urine Creatinine 04/20/22 04/20/22 04/20/22 04:12 04:12 09:10 WBC RBC Hgb Hct RDW Plt Count Lymph % (Auto) [place] % (Auto) Eos % (Auto) Lymph # (Auto) [place] # (Auto) Eos # (Auto) Seg Neutrophils % Seg Neuts % (Manual) Lymphocytes % (Manual) Eosinophils % (Manual) Seg Neutrophils # Seg Neutrophils # Man Lymphocytes # (Manual) Eosinophils # (Manual) PT Activated Coag Time Heparin Anti-Xa Level ABG pH ABG pO2 ABG HCO3 ABG O2 Saturation ABG Base Excess ABG Hemoglobin Oxyhemoglobin Sodium 133 L Potassium 3.5 L Chloride 91.9 L Carbon Dioxide BUN 44 H Creatinine 4.6 H Glucose 263 H POC Glucose Lactic Acid 2.80 H* Calcium 7.2 L Phosphorus Magnesium AST 553 H ALT 471 H Alkaline Phosphatase Total Creatine Kinase 3019 H CK-MB (CK-2) CK-MB (CK-2) Rel Index Troponin T C-Reactive Protein Total Protein 5.7 L Albumin 2.4 L Triglycerides 254 H Ur Specific [place] Urine Blood Urine WBC (Auto) Urine Creatinine 04/20/22 04/20/22 04/20/22 09:31 11:18 18:08 WBC RBC Hgb Hct RDW Plt Count Lymph % (Auto) [place] % (Auto) Eos % (Auto) Lymph # (Auto) [place] # (Auto) Eos # (Auto) Seg Neutrophils % Seg Neuts % (Manual) Lymphocytes % (Manual) Eosinophils % (Manual) Seg Neutrophils # Seg Neutrophils # Man Lymphocytes # (Manual) Eosinophils # (Manual) PT Activated Coag Time Heparin Anti-Xa Level ABG pH 7.512 H ABG pO2 ABG HCO3 26.2 H ABG O2 Saturation ABG Base Excess 3.2 H ABG Hemoglobin 9.0 L Oxyhemoglobin Sodium Potassium Chloride Carbon Dioxide BUN Creatinine Glucose POC Glucose 285 H 293 H Lactic Acid Calcium Phosphorus Magnesium AST ALT Alkaline Phosphatase Total Creatine Kinase CK-MB (CK-2) CK-MB (CK-2) Rel Index Troponin T C-Reactive Protein Total Protein Albumin Triglycerides Ur Specific [place] Urine Blood Urine WBC (Auto) Urine Creatinine 04/20/22 04/21/22 04/21/22 21:40 00:10 04:00 WBC RBC Hgb Hct RDW Plt Count Lymph % (Auto) [place] % (Auto) Eos % (Auto) Lymph # (Auto) [place] # (Auto) Eos # (Auto) Seg Neutrophils % Seg Neuts % (Manual) Lymphocytes % (Manual) Eosinophils % (Manual) Seg Neutrophils # Seg Neutrophils # Man Lymphocytes # (Manual) Eosinophils # (Manual) PT Activated Coag Time Heparin Anti-Xa Level 0.16 L ABG pH ABG pO2 59.4 L ABG HCO3 29.7 H ABG O2 Saturation 90.1 L ABG Base Excess 3.1 H ABG Hemoglobin 11.6 L Oxyhemoglobin 88.2 L Sodium Potassium Chloride Carbon Dioxide BUN Creatinine Glucose POC Glucose 290 H Lactic Acid Calcium Phosphorus Magnesium AST ALT Alkaline Phosphatase Total Creatine Kinase CK-MB (CK-2) CK-MB (CK-2) Rel Index Troponin T C-Reactive Protein Total Protein Albumin Triglycerides Ur Specific [place] Urine Blood Urine WBC (Auto) Urine Creatinine 04/21/22 04/21/22 04/21/22 04:30 04:30 05:57 WBC 17.9 H RBC Hgb 11.7 L Hct 35.1 L RDW Plt Count Lymph % (Auto) [place] % (Auto) Eos % (Auto) Lymph # (Auto) [place] # (Auto) Eos # (Auto) Seg Neutrophils % Seg Neuts % (Manual) Lymphocytes % (Manual) Eosinophils % (Manual) Seg Neutrophils # Seg Neutrophils # Man Lymphocytes # (Manual) Eosinophils # (Manual) PT Activated Coag Time Heparin Anti-Xa Level ABG pH ABG pO2 ABG HCO3 ABG O2 Saturation ABG Base Excess ABG Hemoglobin Oxyhemoglobin Sodium Potassium Chloride 95.7 L Carbon Dioxide BUN 45 H Creatinine 4.2 H Glucose 309 H POC Glucose 265 H Lactic Acid Calcium 7.4 L Phosphorus 5.60 H D Magnesium 2.50 H AST 217 H ALT 376 H Alkaline Phosphatase Total Creatine Kinase CK-MB (CK-2) CK-MB (CK-2) Rel Index Troponin T C-Reactive Protein Total Protein Albumin 2.8 L Triglycerides Ur Specific [place] Urine Blood Urine WBC (Auto) Urine Creatinine 04/21/22 04/21/22 04/21/22 12:14 13:45 18:10 WBC RBC Hgb Hct RDW Plt Count Lymph % (Auto) [place] % (Auto) Eos % (Auto) Lymph # (Auto) [place] # (Auto) Eos # (Auto) Seg Neutrophils % Seg Neuts % (Manual) Lymphocytes % (Manual) Eosinophils % (Manual) Seg Neutrophils # Seg Neutrophils # Man Lymphocytes # (Manual) Eosinophils # (Manual) PT Activated Coag Time 179 H Heparin Anti-Xa Level ABG pH ABG pO2 ABG HCO3 ABG O2 Saturation ABG Base Excess ABG Hemoglobin Oxyhemoglobin Sodium Potassium Chloride Carbon Dioxide BUN Creatinine Glucose POC Glucose 248 H 240 H Lactic Acid Calcium Phosphorus Magnesium AST ALT Alkaline Phosphatase Total Creatine Kinase CK-MB (CK-2) CK-MB (CK-2) Rel Index Troponin T C-Reactive Protein Total Protein Albumin Triglycerides Ur Specific [place] Urine Blood Urine WBC (Auto) Urine Creatinine 04/22/22 04/22/22 04/22/22 00:09 04:00 04:33 WBC 12.4 H RBC 3.34 L Hgb 9.8 L Hct 29.7 L RDW Plt Count 138 L Lymph % (Auto) [place] % (Auto) Eos % (Auto) Lymph # (Auto) [place] # (Auto) Eos # (Auto) Seg Neutrophils % Seg Neuts % (Manual) Lymphocytes % (Manual) Eosinophils % (Manual) Seg Neutrophils # Seg Neutrophils # Man Lymphocytes # (Manual) Eosinophils # (Manual) PT Activated Coag Time Heparin Anti-Xa Level ABG pH ABG pO2 ABG HCO3 ABG O2 Saturation ABG Base Excess ABG Hemoglobin Oxyhemoglobin Sodium Potassium Chloride Carbon Dioxide BUN 40 H Creatinine 2.9 H Glucose 269 H POC Glucose 248 H Lactic Acid Calcium 7.3 L Phosphorus Magnesium AST ALT Alkaline Phosphatase Total Creatine Kinase 973 H CK-MB (CK-2) CK-MB (CK-2) Rel Index Troponin T C-Reactive Protein Total Protein Albumin Triglycerides Ur Specific [place] Urine Blood Urine WBC (Auto) Urine Creatinine 04/22/22 04/22/22 04/22/22 10:13 11:51 18:02 WBC RBC Hgb Hct RDW Plt Count Lymph % (Auto) [place] % (Auto) Eos % (Auto) Lymph # (Auto) [place] # (Auto) Eos # (Auto) Seg Neutrophils % Seg Neuts % (Manual) Lymphocytes % (Manual) Eosinophils % (Manual) Seg Neutrophils # Seg Neutrophils # Man Lymphocytes # (Manual) Eosinophils # (Manual) PT Activated Coag Time Heparin Anti-Xa Level ABG pH ABG pO2 56.1 L ABG HCO3 28.4 H ABG O2 Saturation 89.3 L ABG Base Excess ABG Hemoglobin 9.8 L Oxyhemoglobin 87.7 L Sodium Potassium Chloride Carbon Dioxide BUN Creatinine Glucose POC Glucose 302 H 266 H Lactic Acid Calcium Phosphorus Magnesium AST ALT Alkaline Phosphatase Total Creatine Kinase CK-MB (CK-2) CK-MB (CK-2) Rel Index Troponin T C-Reactive Protein Total Protein Albumin Triglycerides Ur Specific [place] Urine Blood Urine WBC (Auto) Urine Creatinine 04/22/22 04/22/22 04/23/22 21:18 23:30 04:19 WBC RBC 3.34 L Hgb 9.9 L Hct 29.9 L RDW Plt Count Lymph % (Auto) [place] % (Auto) Eos % (Auto) Lymph # (Auto) [place] # (Auto) Eos # (Auto) Seg Neutrophils % Seg Neuts % (Manual) 74.0 H Lymphocytes % (Manual) 10.0 L Eosinophils % (Manual) 7.0 H Seg Neutrophils # Seg Neutrophils # Man 8.0 H Lymphocytes # (Manual) 1.1 L Eosinophils # (Manual) 0.8 H PT Activated Coag Time Heparin Anti-Xa Level ABG pH ABG pO2 ABG HCO3 ABG O2 Saturation ABG Base Excess ABG Hemoglobin Oxyhemoglobin Sodium Potassium Chloride Carbon Dioxide BUN Creatinine Glucose POC Glucose 299 H 299 H Lactic Acid Calcium Phosphorus Magnesium AST ALT Alkaline Phosphatase Total Creatine Kinase CK-MB (CK-2) CK-MB (CK-2) Rel Index Troponin T C-Reactive Protein Total Protein Albumin Triglycerides Ur Specific [place] Urine Blood Urine WBC (Auto) Urine Creatinine 04/23/22 04/23/22 04/23/22 04:19 05:24 11:20 WBC RBC Hgb Hct RDW Plt Count Lymph % (Auto) [place] % (Auto) Eos % (Auto) Lymph # (Auto) [place] # (Auto) Eos # (Auto) Seg Neutrophils % Seg Neuts % (Manual) Lymphocytes % (Manual) Eosinophils % (Manual) Seg Neutrophils # Seg Neutrophils # Man Lymphocytes # (Manual) Eosinophils # (Manual) PT Activated Coag Time Heparin Anti-Xa Level ABG pH ABG pO2 ABG HCO3 ABG O2 Saturation ABG Base Excess ABG Hemoglobin Oxyhemoglobin Sodium Potassium 3.5 L Chloride Carbon Dioxide BUN 30 H Creatinine 2.3 H Glucose 289 H POC Glucose 271 H 302 H Lactic Acid Calcium 7.8 L Phosphorus Magnesium AST 46 H ALT 158 H Alkaline Phosphatase 138 H Total Creatine Kinase CK-MB (CK-2) CK-MB (CK-2) Rel Index Troponin T C-Reactive Protein Total Protein 6.2 L Albumin 2.6 L Triglycerides 230 H Ur Specific [place] Urine Blood Urine WBC (Auto) Urine Creatinine 04/23/22 04/23/22 04/23/22 18:07 18:20 21:14 WBC RBC Hgb Hct RDW Plt Count Lymph % (Auto) [place] % (Auto) Eos % (Auto) Lymph # (Auto) [place] # (Auto) Eos # (Auto) Seg Neutrophils % Seg Neuts % (Manual) Lymphocytes % (Manual) Eosinophils % (Manual) Seg Neutrophils # Seg Neutrophils # Man Lymphocytes # (Manual) Eosinophils # (Manual) PT Activated Coag Time Heparin Anti-Xa Level ABG pH ABG pO2 ABG HCO3 31.6 H ABG O2 Saturation ABG Base Excess 4.8 H ABG Hemoglobin 18.3 H Oxyhemoglobin 94.8 L Sodium Potassium Chloride Carbon Dioxide BUN Creatinine Glucose POC Glucose 228 H 175 H Lactic Acid Calcium Phosphorus Magnesium AST ALT Alkaline Phosphatase Total Creatine Kinase CK-MB (CK-2) CK-MB (CK-2) Rel Index Troponin T C-Reactive Protein Total Protein Albumin Triglycerides Ur Specific [place] Urine Blood Urine WBC (Auto) Urine Creatinine 04/23/22 04/24/22 04/24/22 23:24 04:35 04:47 WBC RBC Hgb Hct RDW Plt Count Lymph % (Auto) [place] % (Auto) Eos % (Auto) Lymph # (Auto) [place] # (Auto) Eos # (Auto) Seg Neutrophils % Seg Neuts % (Manual) Lymphocytes % (Manual) Eosinophils % (Manual) Seg Neutrophils # Seg Neutrophils # Man Lymphocytes # (Manual) Eosinophils # (Manual) PT Activated Coag Time Heparin Anti-Xa Level ABG pH ABG pO2 ABG HCO3 31.5 H ABG O2 Saturation ABG Base Excess 6.1 H ABG Hemoglobin 10.3 L Oxyhemoglobin Sodium Potassium Chloride Carbon Dioxide BUN Creatinine Glucose POC Glucose 168 H 177 H Lactic Acid Calcium Phosphorus Magnesium AST ALT Alkaline Phosphatase Total Creatine Kinase CK-MB (CK-2) CK-MB (CK-2) Rel Index Troponin T C-Reactive Protein Total Protein Albumin Triglycerides Ur Specific [place] Urine Blood Urine WBC (Auto) Urine Creatinine 04/24/22 04/24/22 04/24/22 06:00 06:00 12:45 WBC 14.0 H RBC 3.57 L Hgb 10.1 L Hct 31.9 L RDW Plt Count Lymph % (Auto) 4.7 L [place] % (Auto) 8.8 H Eos % (Auto) 6.0 H Lymph # (Auto) 0.7 L [place] # (Auto) 1.2 H Eos # (Auto) 0.8 H Seg Neutrophils % 80.5 H Seg Neuts % (Manual) Lymphocytes % (Manual) Eosinophils % (Manual) Seg Neutrophils # 11.3 H Seg Neutrophils # Man Lymphocytes # (Manual) Eosinophils # (Manual) PT Activated Coag Time Heparin Anti-Xa Level ABG pH ABG pO2 ABG HCO3 ABG O2 Saturation ABG Base Excess ABG Hemoglobin Oxyhemoglobin Sodium Potassium 3.4 L Chloride Carbon Dioxide BUN 25 H Creatinine 1.8 H Glucose 218 H POC Glucose 227 H Lactic Acid Calcium 8.2 L Phosphorus Magnesium AST ALT 99 H Alkaline Phosphatase 141 H Total Creatine Kinase CK-MB (CK-2) CK-MB (CK-2) Rel Index Troponin T C-Reactive Protein Total Protein 6.2 L Albumin 2.2 L Triglycerides Ur Specific [place] Urine Blood Urine WBC (Auto) Urine Creatinine 04/24/22 04/24/22 04/24/22 17:57 21:19 23:24 WBC RBC Hgb Hct RDW Plt Count Lymph % (Auto) [place] % (Auto) Eos % (Auto) Lymph # (Auto) [place] # (Auto) Eos # (Auto) Seg Neutrophils % Seg Neuts % (Manual) Lymphocytes % (Manual) Eosinophils % (Manual) Seg Neutrophils # Seg Neutrophils # Man Lymphocytes # (Manual) Eosinophils # (Manual) PT Activated Coag Time Heparin Anti-Xa Level ABG pH ABG pO2 ABG HCO3 ABG O2 Saturation ABG Base Excess ABG Hemoglobin Oxyhemoglobin Sodium Potassium Chloride Carbon Dioxide BUN Creatinine Glucose POC Glucose 207 H 186 H 203 H Lactic Acid Calcium Phosphorus Magnesium AST ALT Alkaline Phosphatase Total Creatine Kinase CK-MB (CK-2) CK-MB (CK-2) Rel Index Troponin T C-Reactive Protein Total Protein Albumin Triglycerides Ur Specific [place] Urine Blood Urine WBC (Auto) Urine Creatinine 04/25/22 04/25/22 04/25/22 03:30 03:30 04:38 WBC 19.7 H RBC 3.39 L Hgb 9.8 L Hct 30.2 L RDW 15.6 H Plt Count Lymph % (Auto) 4.7 L [place] % (Auto) Eos % (Auto) 5.0 H Lymph # (Auto) 0.9 L [place] # (Auto) 1.2 H Eos # (Auto) 1.0 H Seg Neutrophils % 84.0 H Seg Neuts % (Manual) Lymphocytes % (Manual) Eosinophils % (Manual) Seg Neutrophils # 16.5 H Seg Neutrophils # Man Lymphocytes # (Manual) Eosinophils # (Manual) PT Activated Coag Time Heparin Anti-Xa Level ABG pH ABG pO2 ABG HCO3 ABG O2 Saturation ABG Base Excess ABG Hemoglobin Oxyhemoglobin Sodium 151 H Potassium 3.5 L Chloride 108.6 H Carbon Dioxide 31 H BUN 27 H Creatinine 1.9 H Glucose 144 H POC Glucose 135 H Lactic Acid Calcium 8.3 L Phosphorus Magnesium AST ALT Alkaline Phosphatase Total Creatine Kinase CK-MB (CK-2) CK-MB (CK-2) Rel Index Troponin T C-Reactive Protein Total Protein Albumin Triglycerides Ur Specific [place] Urine Blood Urine WBC (Auto) Urine Creatinine 04/25/22 04/25/22 04/25/22 05:09 12:12 17:58 WBC RBC Hgb Hct RDW Plt Count Lymph % (Auto) [place] % (Auto) Eos % (Auto) Lymph # (Auto) [place] # (Auto) Eos # (Auto) Seg Neutrophils % Seg Neuts % (Manual) Lymphocytes % (Manual) Eosinophils % (Manual) Seg Neutrophils # Seg Neutrophils # Man Lymphocytes # (Manual) Eosinophils # (Manual) PT Activated Coag Time Heparin Anti-Xa Level ABG pH ABG pO2 ABG HCO3 32.2 H ABG O2 Saturation ABG Base Excess 6.7 H ABG Hemoglobin 9.9 L Oxyhemoglobin 94.9 L Sodium Potassium Chloride Carbon Dioxide BUN Creatinine Glucose POC Glucose 218 H 229 H Lactic Acid Calcium Phosphorus Magnesium AST ALT Alkaline Phosphatase Total Creatine Kinase CK-MB (CK-2) CK-MB (CK-2) Rel Index Troponin T C-Reactive Protein Total Protein Albumin Triglycerides Ur Specific [place] Urine Blood Urine WBC (Auto) Urine Creatinine 04/25/22 04/25/22 04/26/22 18:00 23:48 05:20 WBC RBC Hgb 9.4 L Hct 30.1 L RDW Plt Count Lymph % (Auto) [place] % (Auto) Eos % (Auto) Lymph # (Auto) [place] # (Auto) Eos # (Auto) Seg Neutrophils % Seg Neuts % (Manual) Lymphocytes % (Manual) Eosinophils % (Manual) Seg Neutrophils # Seg Neutrophils # Man Lymphocytes # (Manual) Eosinophils # (Manual) PT Activated Coag Time Heparin Anti-Xa Level ABG pH ABG pO2 ABG HCO3 32.4 H ABG O2 Saturation ABG Base Excess 6.8 H ABG Hemoglobin 9.5 L Oxyhemoglobin Sodium Potassium Chloride Carbon Dioxide BUN Creatinine Glucose POC Glucose 214 H Lactic Acid Calcium Phosphorus Magnesium AST ALT Alkaline Phosphatase Total Creatine Kinase CK-MB (CK-2) CK-MB (CK-2) Rel Index Troponin T C-Reactive Protein Total Protein Albumin Triglycerides Ur Specific [place] Urine Blood Urine WBC (Auto) Urine Creatinine 04/26/22 04/26/22 04/26/22 05:20 05:51 11:39 WBC RBC Hgb Hct RDW Plt Count Lymph % (Auto) [place] % (Auto) Eos % (Auto) Lymph # (Auto) [place] # (Auto) Eos # (Auto) Seg Neutrophils % Seg Neuts % (Manual) Lymphocytes % (Manual) Eosinophils % (Manual) Seg Neutrophils # Seg Neutrophils # Man Lymphocytes # (Manual) Eosinophils # (Manual) PT Activated Coag Time Heparin Anti-Xa Level ABG pH ABG pO2 ABG HCO3 ABG O2 Saturation ABG Base Excess ABG Hemoglobin Oxyhemoglobin Sodium 147 H Potassium Chloride Carbon Dioxide 33 H BUN 27 H Creatinine 1.6 H Glucose 221 H POC Glucose 227 H 263 H Lactic Acid Calcium Phosphorus Magnesium AST ALT Alkaline Phosphatase Total Creatine Kinase CK-MB (CK-2) CK-MB (CK-2) Rel Index Troponin T C-Reactive Protein Total Protein Albumin Triglycerides Ur Specific [place] Urine Blood Urine WBC (Auto) Urine Creatinine 04/26/22 04/26/22 04/27/22 16:22 23:14 04:00 WBC RBC Hgb Hct RDW Plt Count Lymph % (Auto) [place] % (Auto) Eos % (Auto) Lymph # (Auto) [place] # (Auto) Eos # (Auto) Seg Neutrophils % Seg Neuts % (Manual) Lymphocytes % (Manual) Eosinophils % (Manual) Seg Neutrophils # Seg Neutrophils # Man Lymphocytes # (Manual) Eosinophils # (Manual) PT Activated Coag Time Heparin Anti-Xa Level ABG pH ABG pO2 ABG HCO3 ABG O2 Saturation ABG Base Excess ABG Hemoglobin Oxyhemoglobin Sodium Potassium Chloride Carbon Dioxide BUN 23 H Creatinine 1.4 H Glucose 231 H POC Glucose 250 H 221 H Lactic Acid Calcium 8.3 L Phosphorus Magnesium AST 45 H ALT Alkaline Phosphatase 180 H Total Creatine Kinase CK-MB (CK-2) CK-MB (CK-2) Rel Index Troponin T C-Reactive Protein Total Protein Albumin 2.1 L Triglycerides Ur Specific [place] Urine Blood Urine WBC (Auto) Urine Creatinine 04/27/22 04/27/22 04/27/22 04:00 05:25 11:08 WBC 20.1 H RBC 3.28 L Hgb 9.5 L Hct 29.3 L RDW Plt Count Lymph % (Auto) 5.9 L [place] % (Auto) 8.0 H Eos % (Auto) 5.5 H Lymph # (Auto) [place] # (Auto) 1.6 H Eos # (Auto) 1.1 H Seg Neutrophils % 80.3 H Seg Neuts % (Manual) Lymphocytes % (Manual) Eosinophils % (Manual) Seg Neutrophils # 16.2 H Seg Neutrophils # Man Lymphocytes # (Manual) Eosinophils # (Manual) PT Activated Coag Time Heparin Anti-Xa Level ABG pH ABG pO2 ABG HCO3 ABG O2 Saturation ABG Base Excess ABG Hemoglobin Oxyhemoglobin Sodium Potassium Chloride Carbon Dioxide BUN Creatinine Glucose POC Glucose 234 H 224 H Lactic Acid Calcium Phosphorus Magnesium AST ALT Alkaline Phosphatase Total Creatine Kinase CK-MB (CK-2) CK-MB (CK-2) Rel Index Troponin T C-Reactive Protein Total Protein Albumin Triglycerides Ur Specific [place] Urine Blood Urine WBC (Auto) Urine Creatinine 04/28/22 04/28/22 04/28/22 00:01 05:25 05:28 WBC 16.1 H RBC 3.32 L Hgb 9.4 L Hct 29.9 L RDW Plt Count Lymph % (Auto) [place] % (Auto) Eos % (Auto) Lymph # (Auto) [place] # (Auto) Eos # (Auto) Seg Neutrophils % Seg Neuts % (Manual) Lymphocytes % (Manual) Eosinophils % (Manual) Seg Neutrophils # Seg Neutrophils # Man Lymphocytes # (Manual) Eosinophils # (Manual) PT Activated Coag Time Heparin Anti-Xa Level ABG pH 7.489 H ABG pO2 72.5 L ABG HCO3 27.8 H ABG O2 Saturation ABG Base Excess 4.3 H ABG Hemoglobin 9.2 L Oxyhemoglobin 94.6 L Sodium Potassium Chloride Carbon Dioxide BUN Creatinine Glucose POC Glucose 189 H Lactic Acid Calcium Phosphorus Magnesium AST ALT Alkaline Phosphatase Total Creatine Kinase CK-MB (CK-2) CK-MB (CK-2) Rel Index Troponin T C-Reactive Protein Total Protein Albumin Triglycerides Ur Specific [place] Urine Blood Urine WBC (Auto) Urine Creatinine 04/28/22 04/28/22 04/28/22 05:28 05:44 08:20 WBC RBC Hgb Hct RDW Plt Count Lymph % (Auto) [place] % (Auto) Eos % (Auto) Lymph # (Auto) [place] # (Auto) Eos # (Auto) Seg Neutrophils % Seg Neuts % (Manual) Lymphocytes % (Manual) Eosinophils % (Manual) Seg Neutrophils # Seg Neutrophils # Man Lymphocytes # (Manual) Eosinophils # (Manual) PT Activated Coag Time Heparin Anti-Xa Level ABG pH ABG pO2 ABG HCO3 ABG O2 Saturation ABG Base Excess ABG Hemoglobin Oxyhemoglobin Sodium Potassium Chloride Carbon Dioxide BUN 22 H Creatinine 1.4 H Glucose 179 H POC Glucose 181 H Lactic Acid Calcium 8.2 L Phosphorus Magnesium AST ALT Alkaline Phosphatase Total Creatine Kinase CK-MB (CK-2) CK-MB (CK-2) Rel Index Troponin T C-Reactive Protein 15.30 H Total Protein Albumin Triglycerides Ur Specific [place] Urine Blood Urine WBC (Auto) Urine Creatinine 04/28/22 04/28/22 04/28/22 08:35 11:13 12:07 WBC RBC Hgb Hct RDW Plt Count Lymph % (Auto) [place] % (Auto) Eos % (Auto) Lymph # (Auto) [place] # (Auto) Eos # (Auto) Seg Neutrophils % Seg Neuts % (Manual) Lymphocytes % (Manual) Eosinophils % (Manual) Seg Neutrophils # Seg Neutrophils # Man Lymphocytes # (Manual) Eosinophils # (Manual) PT Activated Coag Time Heparin Anti-Xa Level ABG pH 7.203 L ABG pO2 43.7 L ABG HCO3 27.7 H ABG O2 Saturation 63.0 L ABG Base Excess ABG Hemoglobin 10.6 L Oxyhemoglobin 61.6 L Sodium Potassium Chloride Carbon Dioxide BUN Creatinine Glucose POC Glucose 131 H Lactic Acid Calcium Phosphorus Magnesium AST ALT Alkaline Phosphatase Total Creatine Kinase CK-MB (CK-2) CK-MB (CK-2) Rel Index Troponin T C-Reactive Protein Total Protein Albumin Triglycerides Ur Specific [place] 1.000 L Urine Blood Urine WBC (Auto) 21.0 H Urine Creatinine 04/28/22 04/28/22 04/29/22 16:20 16:27 00:32 WBC RBC Hgb Hct RDW Plt Count Lymph % (Auto) [place] % (Auto) Eos % (Auto) Lymph # (Auto) [place] # (Auto) Eos # (Auto) Seg Neutrophils % Seg Neuts % (Manual) Lymphocytes % (Manual) Eosinophils % (Manual) Seg Neutrophils # Seg Neutrophils # Man Lymphocytes # (Manual) Eosinophils # (Manual) PT Activated Coag Time Heparin Anti-Xa Level ABG pH 7.461 H ABG pO2 99.9 H ABG HCO3 28.0 H ABG O2 Saturation ABG Base Excess 3.9 H ABG Hemoglobin 7.7 L Oxyhemoglobin Sodium Potassium Chloride Carbon Dioxide BUN Creatinine Glucose POC Glucose 136 H 205 H Lactic Acid Calcium Phosphorus Magnesium AST ALT Alkaline Phosphatase Total Creatine Kinase CK-MB (CK-2) CK-MB (CK-2) Rel Index Troponin T C-Reactive Protein Total Protein Albumin Triglycerides Ur Specific [place] Urine Blood Urine WBC (Auto) Urine Creatinine 04/29/22 04/29/22 04/29/22 02:35 03:20 04:20 WBC 19.8 H RBC 3.17 L Hgb 9.0 L Hct 27.9 L RDW Plt Count 481 H Lymph % (Auto) 5.7 L [place] % (Auto) 7.8 H Eos % (Auto) Lymph # (Auto) 1.1 L [place] # (Auto) 1.5 H Eos # (Auto) 0.8 H Seg Neutrophils % 82.0 H Seg Neuts % (Manual) Lymphocytes % (Manual) Eosinophils % (Manual) Seg Neutrophils # 16.3 H Seg Neutrophils # Man Lymphocytes # (Manual) Eosinophils # (Manual) PT Activated Coag Time Heparin Anti-Xa Level ABG pH 7.487 H ABG pO2 176.1 H ABG HCO3 27.6 H ABG O2 Saturation 99.2 H ABG Base Excess 4.0 H ABG Hemoglobin 9.6 L Oxyhemoglobin Sodium Potassium Chloride Carbon Dioxide BUN Creatinine Glucose POC Glucose 223 H Lactic Acid Calcium Phosphorus Magnesium AST ALT Alkaline Phosphatase Total Creatine Kinase CK-MB (CK-2) CK-MB (CK-2) Rel Index Troponin T C-Reactive Protein Total Protein Albumin Triglycerides Ur Specific [place] Urine Blood Urine WBC (Auto) Urine Creatinine 04/29/22 04/29/22 04:20 05:43 WBC RBC Hgb Hct RDW Plt Count Lymph % (Auto) [place] % (Auto) Eos % (Auto) Lymph # (Auto) [place] # (Auto) Eos # (Auto) Seg Neutrophils % Seg Neuts % (Manual) Lymphocytes % (Manual) Eosinophils % (Manual) Seg Neutrophils # Seg Neutrophils # Man Lymphocytes # (Manual) Eosinophils # (Manual) PT Activated Coag Time Heparin Anti-Xa Level ABG pH ABG pO2 ABG HCO3 ABG O2 Saturation ABG Base Excess ABG Hemoglobin Oxyhemoglobin Sodium Potassium Chloride Carbon Dioxide BUN 30 H Creatinine 1.6 H Glucose 236 H POC Glucose 202 H Lactic Acid Calcium 8.1 L Phosphorus Magnesium AST 143 H ALT 105 H Alkaline Phosphatase 210 H Total Creatine Kinase CK-MB (CK-2) CK-MB (CK-2) Rel Index Troponin T C-Reactive Protein Total Protein 6.2 L Albumin 2.0 L Triglycerides Ur Specific [place] Urine Blood Urine WBC (Auto) Urine Creatinine Allied health notes reviewed: RT
[2022-04-29] MEDS: VANCOMYCIN 1,750 MG in SODIUM CHLORIDE 0.9% 500 ML 500 ML IV SCH (11:16)
[2022-04-29] MEDS: DOCUSATE SODIUM 100 MG/10 ML ORAL LIQD FEEDTUBE SCH ×2 (11:17→21:38)
--- NOTE | 2022-04-29 11:20 | Progress Note ---
Assessment and Plan Cultures: 04/17/2022 blood culture: No growth 04/17/2022 tracheal aspirate culture: Usual respiratory adina 04/18/2022 urine culture: No growth 04/26/2022 blood culture: No growth 04/26/2022 urine culture: No growth 04/28/2022 urine culture: No growth A/P: 62-year-old male with obesity, hypertension, diabetes, atrial fibrillation was admitted to the hospital on 04/17/2022 with out of hospital cardiac arrest/V. fib arrest with ROSC. He was severely acidotic, placed on pressors, intubated, on mechanical ventilation: #Severe sepsis: Etiology unclear. Ruled out bacteremia, catheter associated UTI so far. #S/p [id number] cardiac arrest/V. fib arrest, cardiogenic shock #VINCENT: Renally adjust antibiotics. Creatinine gradually better. #Aspiration pneumonia #Acute hypoxic respiratory failure: On mechanical ventilation. #Acute urinary retention: Has Dunbar catheter in place. Recs: Continue empiric cefepime and vancomycin for now, monitor response in fever, WBC Follow-up sputum culture from 04/28/2022 LFTs are still elevated, will order RUQ ultrasound Orion Chung MD, [facility] O: [phone] F: [phone] C: [phone] Subjective Date of service: 04/29/22 Principal diagnosis: AHRF; AMS; Pneumonia; Shock; DM II; Severe Metabolic Acidosis Interval history: Febrile yesterday. No fever today, T-max 99.6. Is awake, remains on the vent. is at bedside. Off pressors. Discussed with RN. Objective - Exam Narrative Exam: Physical Exam: Constitutional: awake, intubated, on the vent Head, Ears, Nose: Normocephalic, atraumatic. External ears, nose normal Eyes: Conjunctivae/corneas clear. No icterus. No ptosis. Neck: intubated Oral: intubated Cardiovascular: S1, S2 + Respiratory: AE fair bilaterally and equal GI: Soft, bowel sounds + Musculoskeletal: No pedal edema, no cyanosis. Skin: No rash or abscess Hem/Lymphatic: No palpable cervical or supraclavicular nodes. No lymphangitis Psych: no agitation Neurological: awake, intubated, on the vent, exam limited - Constitutional Vitals: Vital Signs Temp Pulse Resp BP Pulse Ox 99.6 F 96 H 24 129/68 100 04/29/22 04:00 04/29/22 10:16 04/29/22 10:16 04/29/22 10:16 04/29/22 10:16 Temperature -Last 24 Hours Temperature 99.6 F Temperature 99.3 F Temperature 101.0 F Temperature 102.9 F - Labs CBC & Chem 7: 04/29/22 04:20 04/29/22 04:20 Labs: Abnormal lab results 04/28/22 04/28/22 04/28/22 Range/Units 12:07 16:20 16:27 WBC (4.5-11.0) K/mm3 RBC (3.65-5.03) M/mm3 Hgb (11.8-15.2) gm/dl Hct (35.5-45.6) % Plt Count (140-440) K/mm3 Lymph % (Auto) (13.4-35.0) % [place] % (Auto) (0.0-7.3) % Lymph # (Auto) (1.2-5.4) K/mm3 [place] # (Auto) (0.0-0.8) K/mm3 Eos # (Auto) (0.0-0.4) K/mm3 Seg Neutrophils % (40.0-70.0) % Seg Neutrophils # (1.8-7.7) K/mm3 ABG pH 7.203 L 7.461 H (7.350-7.450) pH Units ABG pO2 43.7 L 99.9 H (80.0-90.0) mm Hg ABG HCO3 27.7 H 28.0 H (20.0-26.0) mmol/L ABG O2 Saturation 63.0 L (95.0-99.0) % ABG Base Excess 3.9 H (-2.0-3.0) mmol/L ABG Hemoglobin 10.6 L 7.7 L (14.0-18.0) gm/dl Oxyhemoglobin 61.6 L (95.0-99.0) % BUN (9-20) mg/dL Creatinine (0.8-1.3) mg/dL Glucose (75-100) mg/dL POC Glucose 136 H (70-105) mg/dL Calcium (8.4-10.2) mg/dL AST (5-40) units/L ALT (7-56) units/L Alkaline Phosphatase (35-129) units/L Total Protein (6.3-8.2) g/dL Albumin (3.9-5) g/dL 04/29/22 04/29/22 04/29/22 Range/Units 00:32 02:35 03:20 WBC (4.5-11.0) K/mm3 RBC (3.65-5.03) M/mm3 Hgb (11.8-15.2) gm/dl Hct (35.5-45.6) % Plt Count (140-440) K/mm3 Lymph % (Auto) (13.4-35.0) % [place] % (Auto) (0.0-7.3) % Lymph # (Auto) (1.2-5.4) K/mm3 [place] # (Auto) (0.0-0.8) K/mm3 Eos # (Auto) (0.0-0.4) K/mm3 Seg Neutrophils % (40.0-70.0) % Seg Neutrophils # (1.8-7.7) K/mm3 ABG pH 7.487 H (7.350-7.450) pH Units ABG pO2 176.1 H (80.0-90.0) mm Hg ABG HCO3 27.6 H (20.0-26.0) mmol/L ABG O2 Saturation 99.2 H (95.0-99.0) % ABG Base Excess 4.0 H (-2.0-3.0) mmol/L ABG Hemoglobin 9.6 L (14.0-18.0) gm/dl Oxyhemoglobin (95.0-99.0) % BUN (9-20) mg/dL Creatinine (0.8-1.3) mg/dL Glucose (75-100) mg/dL POC Glucose 205 H 223 H (70-105) mg/dL Calcium (8.4-10.2) mg/dL AST (5-40) units/L ALT (7-56) units/L Alkaline Phosphatase (35-129) units/L Total Protein (6.3-8.2) g/dL Albumin (3.9-5) g/dL 04/29/22 04/29/22 04/29/22 Range/Units 04:20 04:20 05:43 WBC 19.8 H (4.5-11.0) K/mm3 RBC 3.17 L (3.65-5.03) M/mm3 Hgb 9.0 L (11.8-15.2) gm/dl Hct 27.9 L (35.5-45.6) % Plt Count 481 H (140-440) K/mm3 Lymph % (Auto) 5.7 L (13.4-35.0) % [place] % (Auto) 7.8 H (0.0-7.3) % Lymph # (Auto) 1.1 L (1.2-5.4) K/mm3 [place] # (Auto) 1.5 H (0.0-0.8) K/mm3 Eos # (Auto) 0.8 H (0.0-0.4) K/mm3 Seg Neutrophils % 82.0 H (40.0-70.0) % Seg Neutrophils # 16.3 H (1.8-7.7) K/mm3 ABG pH (7.350-7.450) pH Units ABG pO2 (80.0-90.0) mm Hg ABG HCO3 (20.0-26.0) mmol/L ABG O2 Saturation (95.0-99.0) % ABG Base Excess (-2.0-3.0) mmol/L ABG Hemoglobin (14.0-18.0) gm/dl Oxyhemoglobin (95.0-99.0) % BUN 30 H (9-20) mg/dL Creatinine 1.6 H (0.8-1.3) mg/dL Glucose 236 H (75-100) mg/dL POC Glucose 202 H (70-105) mg/dL Calcium 8.1 L (8.4-10.2) mg/dL AST 143 H (5-40) units/L ALT 105 H (7-56) units/L Alkaline Phosphatase 210 H (35-129) units/L Total Protein 6.2 L (6.3-8.2) g/dL Albumin 2.0 L (3.9-5) g/dL
[2022-04-29] MEDS: INSULIN GLARGINE 100 UNITS/ML SUB-Q SCH ×2 (12:11→21:38)
--- NOTE | 2022-04-29 12:43 | Progress Note ---
Assessment and Plan It will be recalled that he presented to [facility] emergency clinic with chest pain, and during his evaluation there, suffered an acute cardiopulmonary arrest prompting his transfer to the emergency room at [facility]. Ventricular fibrillation was reported, although no strips available for review. EKG on presentation here was a rapid atrial fibrillation with some nonspecific ST segment changes which have since resolved. Echocardiogram showed a four-chamber dilated cardiomyopathy with left ventricular ejection fraction 15 to 20%. The chronicity of the cardiomyopathy is uncertain, the patient's does not report any recent cardiac evaluation, with only a history of atrial fibrillation requiring cardioversion some 15 years ago. Cardiac catheterization performed this admission showed no significant obstructive coronary lesions, consistent with nonischemic cardiomyopathy. Post cardiac catheterization, and IV hydration, his creatinine has reduced from 4.6- 2.9. The patient however still vent dependent, with high oxygen rate requirements. Chest x-ray today shows a mostly right lung opacity, the ICU team is treating him for possible aspiration. Eventually, he would need a device during this hospitalization for secondary prevention of sudden cardiac before discharge as he had cardiac arrest and low ejection fraction. If the patient has active infection and cannot get a device he will at least need a LifeVest we will introduce afterload agents and beta-blockers for LV systolic dysfunction once he is off pressors/inotropic agents and clinically stable. He will need long-term oral anticoagulation for atrial fibrillation will initiate it when clinically stable. Patient LFTs improved initially now started to have transaminitis so we will hold amiodarone. We will give digoxin 0.25 mg twice 6 hours apart for rate control and check digoxin level tomorrow. If needed we can add metoprolol 12.5 mg every 6 hourly for rate control. - Patient Problems (1) Atrial fibrillation with RVR Current Visit: Yes Status: Acute (2) Cardiac arrest Current Visit: Yes Status: Acute (3) Cardiogenic shock Current Visit: Yes Status: Acute Subjective Principal diagnosis: AHRF; AMS; Pneumonia; Shock; DM II; Severe Metabolic Acidosis Interval history: Patient self extubated yesterday but could not tolerate so they had to reintubate him. He was tachycardic briefly during this period. He was briefly on norepinephrine.Patient is off all pressors He received Lasix 1 dose yesterday with adequate response. Telemetry reviewed, still in atrial fibrillation with heart rates in low 80-90's Objective Vital Signs Temp Pulse Pulse Resp BP Pulse Ox 04/29/22 12:15 99.9 F H 04/29/22 12:00 94 H 25 H 124/68 99 04/29/22 11:46 109 H 26 H 122/77 100 04/29/22 11:41 96 H 134/73 99 04/29/22 11:30 91 H 24 122/77 100 04/29/22 11:16 90 20 113/75 100 04/29/22 11:00 91 H 24 124/87 100 04/29/22 10:46 91 H 24 113/75 100 04/29/22 10:30 95 H 24 113/75 100 04/29/22 10:16 96 H 24 129/68 100 04/29/22 10:00 95 H 16 123/97 100 04/29/22 09:46 89 24 129/68 100 04/29/22 09:30 85 24 129/68 100 04/29/22 09:16 86 22 117/65 100 04/29/22 09:00 88 24 117/65 100 04/29/22 08:57 88 126/87 100 04/29/22 08:46 89 21 129/70 100 04/29/22 08:30 85 24 130/73 100 04/29/22 08:16 94 H 24 130/73 100 04/29/22 08:00 93 H 85 27 H 130/73 100 04/29/22 07:46 100 H 30 H 119/66 100 04/29/22 07:30 85 24 119/66 100 04/29/22 07:16 80 18 122/81 100 04/29/22 07:00 84 21 122/76 100 04/29/22 06:46 84 24 122/81 100 04/29/22 06:30 82 24 122/81 100 04/29/22 06:16 81 24 127/74 100 04/29/22 06:00 81 24 119/71 100 04/29/22 05:46 86 24 127/74 100 04/29/22 05:30 90 28 H 131/74 100 04/29/22 05:16 79 24 131/74 100 04/29/22 05:00 81 24 156/90 100 04/29/22 04:46 88 24 156/90 100 04/29/22 04:30 81 24 157/70 100 04/29/22 04:16 80 24 146/80 100 04/29/22 04:00 99.6 F 79 26 H 146/80 100 04/29/22 03:46 90 22 156/90 100 04/29/22 03:30 77 23 156/90 100 04/29/22 03:16 77 24 147/85 100 04/29/22 03:11 81 24 100 04/29/22 03:10 81 04/29/22 03:07 80 147/85 100 04/29/22 03:00 77 24 147/85 98 04/29/22 02:46 80 24 131/73 100 04/29/22 02:30 75 24 131/73 99 04/29/22 02:16 80 24 125/68 100 04/29/22 02:00 78 24 125/68 99 04/29/22 01:46 85 24 134/77 100 04/29/22 01:30 88 24 134/77 99 04/29/22 01:16 79 24 130/76 100 04/29/22 01:00 83 24 130/76 97 04/29/22 00:46 85 24 139/81 100 04/29/22 00:30 87 24 139/81 98 04/29/22 00:16 80 23 144/93 100 04/29/22 00:00 99.3 F 78 87 24 144/93 100 04/28/22 23:46 80 23 117/74 100 04/28/22 23:30 86 23 117/74 97 04/28/22 23:16 87 23 122/64 100 04/28/22 23:15 89 04/28/22 23:01 86 25 H 122/64 100 04/28/22 23:00 92 H 26 H 122/64 98 04/28/22 22:46 91 H 25 H 139/81 100 04/28/22 22:30 101 H 24 139/81 98 04/28/22 22:16 95 H 24 123/68 100 04/28/22 22:00 92 H 25 H 123/68 97 04/28/22 21:46 92 H 25 H 131/77 100 04/28/22 21:30 22 131/77 97 04/28/22 21:16 97 H 19 136/71 100 04/28/22 21:00 86 18 136/71 98 04/28/22 20:46 93 H 14 126/75 100 04/28/22 20:30 89 18 234/132 100 04/28/22 20:24 101.0 F H 04/28/22 20:16 96 H 14 234/132 100 04/28/22 20:00 94 H 19 121/58 100 04/28/22 19:55 106 H 106 H 22 100 04/28/22 19:46 106 H 29 H 234/132 100 04/28/22 19:30 108 H 49 H 234/132 100 04/28/22 19:16 113 H 34 H 234/132 100 04/28/22 19:00 111 H 33 H 234/132 99 04/28/22 18:46 111 H 33 H 234/132 100 04/28/22 18:30 108 H 35 H 234/132 99 04/28/22 18:16 111 H 33 H 234/132 99 04/28/22 18:00 106 H 30 H 234/132 100 04/28/22 17:46 95 H 21 234/132 100 04/28/22 17:30 107 H 15 234/132 100 04/28/22 17:16 109 H 21 234/132 100 04/28/22 17:00 108 H 12 234/132 100 04/28/22 16:58 102.9 F H 04/28/22 16:46 103 H 15 234/132 100 04/28/22 16:30 118 H 19 234/132 99 04/28/22 16:17 102 H 234/132 99 04/28/22 16:16 111 H 18 234/132 99 04/28/22 16:00 108 H 115 H 26 H 234/132 100 04/28/22 15:46 114 H 17 234/132 98 04/28/22 15:30 120 H 15 234/132 98 04/28/22 15:16 124 H 14 234/132 98 04/28/22 15:00 117 H 32 H 234/132 98 04/28/22 14:46 112 H 25 H 234/132 97 04/28/22 14:30 108 H 33 H 234/132 96 04/28/22 14:16 117 H 27 H 234/132 96 04/28/22 14:00 124 H 35 H 234/132 63 L 04/28/22 13:46 133 H 35 H 234/132 71 L 04/28/22 13:30 138 H 40 H 234/132 63 L 04/28/22 13:16 133 H 29 H 234/132 61 L 04/28/22 13:00 132 H 32 H 234/132 64 L 04/28/22 12:46 117 H 27 H 234/132 65 L - Physical Examination General: No Apparent Distress, Other (Patient is intubated, sedated, on the vent) HEENT: Positive: EOMI Neck: Positive: neck supple Cardiac: Positive: irregularly irregular, S1/S2. Negative: Audible Murmur Lungs: Positive: clear to auscultation (Anterior) Neuro: Positive: Grossly Intact, Other (Intubated, sedated on the vent, unable to assess) Abdomen: Positive: Soft Skin: Positive: Rash (On the left hand which is dressed), Other (Blisters on the right hand) Extremities: Present: edema (Trace) - Labs and Meds Cardiac Enzymes 04/29/22 Range/Units 04:20 AST 143 H (5-40) units/L CBC 04/29/22 Range/Units 04:20 WBC 19.8 H (4.5-11.0) K/mm3 RBC 3.17 L (3.65-5.03) M/mm3 Hgb 9.0 L (11.8-15.2) gm/dl Hct 27.9 L (35.5-45.6) % Plt Count 481 H (140-440) K/mm3 Lymph # (Auto) 1.1 L (1.2-5.4) K/mm3 [place] # (Auto) 1.5 H (0.0-0.8) K/mm3 Eos # (Auto) 0.8 H (0.0-0.4) K/mm3 Baso # (Auto) 0.1 (0.0-0.1) K/mm3 Comprehensive Metabolic Panel 04/29/22 Range/Units 04:20 Sodium 139 (137-145) mmol/L Potassium 3.6 (3.6-5.0) mmol/L Chloride 101.1 (98-107) mmol/L Carbon Dioxide 27 (22-30) mmol/L BUN 30 H (9-20) mg/dL Creatinine 1.6 H (0.8-1.3) mg/dL Glucose 236 H (75-100) mg/dL Calcium 8.1 L (8.4-10.2) mg/dL AST 143 H (5-40) units/L ALT 105 H (7-56) units/L Alkaline Phosphatase 210 H (35-129) units/L Total Protein 6.2 L (6.3-8.2) g/dL Albumin 2.0 L (3.9-5) g/dL - Allied health notes Allied health notes reviewed: RT
--- NOTE | 2022-04-29 13:33 | Progress Note ---
<ANDIE MARIANO - Last Filed: 04/29/22 18:35> Assessment and Plan Assessment and plan: This is a 61-year-old male with known past medical history of obsesity, DM, HTN, and Atrial fibrillation s/p cardioversion over 12hrs ago, unclear if patient was on AC at home admitted s/p outside of the hospital cardiac arrest/V-fib arrest with ROSC. Hospital Course to Date: 04/18: Severely acidotic this am, now on bcarb gtt. On high dose pressors- Levophed and Vaso. Afib in control rate on the monitor, on Amiodarone and heparin gtt per protocol. Cardiology is following. Patient remains afebrile and leukocytosis improved this am. Now with worsen renal function and low UOP. Patient's EF is 25 to 30%, Dobutamine gtt initiated. Continue current IV abx, continue to trend troponin and lactic acid. Nephrology also consulted for further recs. BLE swelling noted, BLE doppler ordered to r/o DVT. 04/19: Agitation with low SPO2 overnight, sedation increased. This am ABG with worsen hypoxia on 40% Fio2, SPO2 at 90% this am. Fio2 increased to 50%, SPO2 improved above 92%. Remains on multiple pressors and bcarb gtt. Now on dopamine gtt, in Afib with RVR on the monitor. Still on Amiodarone and heparin gtts. Echo noted, EF 15 to 20%. Cardiology is following. With worsen renal function, however making urine this am. No indication for NECK FITTER at this per Nephro. Will continue to monitor. Monitor and replace electrolytes as needed 04/20: Nephrology spoke to at bedside re HD, cardiology will proceed with [facility] if patient is to recieve HD post procedure, vent changes per [facility], Sedated with fentanyl and propofol with heparin and amio gtt infusing. 04/21: LHC today. Nephrology will continue IVF and if renal function worsens then will proceed HD with consent from family. Patient became hypoxic with FiO2 at 40% yesterday evening and is currently at 65%. 04/22: Patient was started on vasopressin IV fluids yesterday and his creatinine decreased from 4.2 to 2.9. Patient severely agitated while on propofol and fentanyl. Started low-dose Seroquel and started to wean propofol as tolerated. Patient does follow commands today. Increase in lantus. IV fluids decreased, started on dobutamine per CCM and wean vasopressin for target MAP of 65-70 and SBP greater than 110 04/23: This morning patient being extremely hypertensive with SBP into 200s and given metoprolol. Rn asked to wean propofol as tolerated. Dobutamine decreased to 2.5. Cr improved. US chest completed and showed no pleural effusions. This afternoon alerted by RN that RT believes pt bite through his tube and anesthesia was called to bedside for tube exchange. Decision was made to extubate and reintubate the patient. CXR ordered. 04/24: Patient placed on CPAP trial. Renal numbers look better today. Cardiology would like to try digoxin. No acute events reported overnight. 04/25: Patient now with hypernatremia, slightly increased renal function today but still putting out over 1 L urine over the past 24 hours. Will increase free water flushes and repleate potassium cautiously. Cardilogy will like to continue current management. PSV when able 04/26: Cardiology will increase amiodarone due to heart rate being in the 110s to 120s and will hold off digoxin, remains on dobutamine drip. Hypernatremia improving. Remains on D5 W per nephrology. PSV this AM. Rash noted to trunk, arms, chest. RN to hold off Seroquel. Started on IV Benadryl. Already n.p.o. famotidine. Updated [place] physician who also informed me that the patient is allergic to lisinopril (angioedema) 04/27: Tolerating PSV trail this am on low dose sedation. Per CCM, plan to wean vent setting for possible extubation. If patient requires higher dose of sedation, will add precedex gtt for trial to wean off sedation. Patient with low grade fevers with worsening leukopcytosis, B.cultures from yesterday with NGTD. Will do a lines vacations, D/C CVC and penn. Patient is hemodynamically stable, will continue to monitor for now. Patient is also net positive balance since admit, hypernatremia resolved, and renal function improved, will decrease IVF fo r now. Nephrology is also following. 04/28: Self-extubated this afternoon, requiring emergent reintubation. Flash pulmonary edema noted during intubation, X1 dose of IV lasix administered. Currently hypertensive and Afib with RVR, HR in the 110-130s, sedations resumed. Persistent fevers overnight with leukocytosis, repeat blood culture with no growth. Orders placed for UA and repeat sputum culture. Empiric IV Abx, Cefepine and vanc initiated. ID was also consulted. Continue vent wean/adjustment per CCM. Penn was reinserted overnight due to retention, will reassess in the next 24hrs to 48hrs. 04/29: Remains stable on the vent, this am CXR and ABG with significant improvement. On low dose pressors this am, MAP in the 70s, titrate pressor to maintain MAP in the 70s. Still with persistent fevers despite current IV abx, repeat cultures with NGTD. Orders placed for COVID and Flu PCR.. Worsen LFTs this am, d/w Cardio will D/C PO amio, X2 dose of IV digoxin for rate control. Renal function stable, patient responded well to IV lasix, over 5L out in last 24hrs. Will hold off on diurese today per Nephro, will reassess in the am. Insulin regimen adjusted for hyperglycemia. Assessment and Plan #Cardiogenic Shock #S/p Cardiac Arrest/V-Fib Arrest with ROSC #NSTEMI #H/o Atrial Fibrillation, HTN - Found in the bathroom unresponsive at a [place] facility. - EMS found patient in V-Fib arrest treated per ACLS ROSC achieved - Positive troponinX3, EKG with no significant ST changes - s/p Dopamine and Dobutamine gtts - Afib control on the monitor, HR 90-100d - 2D echo reviewed. EF 15 to 20% - [facility] severe nonischemic cardiomyopathy with patent coronary arteries, which per cardiology presumably resulted in a primary cardiac arrest. - PO Amio held due to worsen LFts - X2 dose IV dig for rate control per Cardio - Continue blood pressure monitor per protocol - Maintain MAP above 65 and SBP less than 160 #Acute Hypoxemic Respiratory Failure - Intubated in the filed during code on 04/17 - [id number] this afternoon, requiring emergent reintubation - Flash pulmonary edema noted during intubattion X1 dose of IV lasix - Vent setting: PRBC-50%,10,24,500 - this am CXR and ABG with significant improvement - CCM consulted, appreciate recommendations - Continue vent adjustement per CCM - VAP bundle addressed - Aspiration precaution HOB above 30 - Daily SBT and SAT trials as tolerated - Daily ABG and CXR - Continue SPO2 monitoring for SPO2 goal above 92% - Per CCM, plan to wean vent setting for possible extubation. #Acute Metabolic Encephalopathy-improved #Agitation #Face Contusion s/p Fall-improved - Found in the bathroom unresponsive at a [place] facility. Most likely fell and hit his head - CT head reviewed, no acute intracranial abnormality - While awake on sedations, on low dose propofol - Tolerating PSV trial. - If patient requires higher dose of sedation, will add precedex gtt for trial to wean off sedation. - Daily SAT and SBT per CCM - Avoid benzodiazepine to reduce the possibility of delirium - PRN Analgesia CPOT greater than 3 - Maintenance of sleep-wake cycle #Acute Kidney Injury(VINCENT) most likely ATN #Hypernatrmia #Hypekalemia-resolved - secondary to above. hypoperfusion/hypotension - Patient also received IV contrast - Baseline renal function is unknown - Hypernatremia and renal function improved - Nephrology on consult, appreciated recommendation - S/p X1 dose of IV lasix, flash pulmonary edema noted during intubation - Strict intake and output - Avoid nephrotoxic medications; Renally dose medications - Penn in place with great UOP over 5L in last 24hrs - Monitor and replace electrolytes as needed - Continue FWF #Fevers #Leukocytosis #Bilateral Pneumonia #Probably Aspiration Pneumonia #Severe Metabolic Acidosis-resolved - Imaging reveals bilateral airspace disease, greater in the Upper lobs. Most likely aspiration - With persistent febrile and leukocytosis - UA with elevated WBCs - Blood culture with NGTD, Sputum pending - COVID and Flu PCR orderd - Empiric IV Abx initiated, ID consulted - F/U on cultures - Daily CBC monitor #Transaminitis #Shock Liver-improved - most likely reactive from above/hypoperfusion - LFT improved post cardiac event - LFTs trending back up this am, PO amio held - Trend LFTs #Elevated D-Dimer - CTA chest with no evidence of PE - With BLE swelling- BLE doppler pending - On Heparin #Type 2 Diabetes Mellitus - BG check and SSI Q6hrs - Lantus BID - Avoid hypoglycemia #GI/DVT Prophylaxis - PPI- Pepcid - Heparin SubQ - SCDs to bilateral lower extremities while in bed #Advance Care Planning - Disease education data, care plan, diagnoses, and prognosis were discussed with patient's at the bedside. Patient is a FULL code. Patient's acknowledged understanding and agreed with current care plan. The high probability of a clinically significant, sudden or life threatening deterioration of the [multiple] system(s) required my full and direct attention, intervention and personal management. The aggregate critical care time was [60] minutes. This time is in addition to time spent performing reported procedures but includes the following: [x] Data Review and interpretation [x] Patient assessment and monitoring of vital signs [x] Documentation [x] Medication orders and management Disposition Plan: ICU Total Time Spent with Patient (Minutes): 60 History Interval history: Patient seen and examined at the bedside. Stable on the event, while awake on low dose propofol gtt. Persistent fevers overnight. Remains on low dose Levophed this am, MAP in the 70s, Afib in control rate on the monitor. GERONIMO overnight Hospitalist Physical - Physical exam Narrative exam: General appearance: Present: no acute distress, other (Intubated, while awake on sedation) - EENT Eyes: Present: PERRL - Neck Neck: Present: normal ROM - Respiratory Respiratory effort: labored Respiratory: bilateral: rhonchi - Cardiovascular Rhythm: irregularly irregular Heart Sounds: Present: S1 & S2 - Extremities Extremities: no ischemia, pulses intact, pulses symmetrical Extremity abnormal: edema - Peripheral Assessment Bilateral Upper Extremity Edema Type: Pitting Edema Degree: 3+ Capillary Refill: < 3 seconds Skin Temperature: Warm Generalized Edema Type: Pitting Edema Degree: 2+ Capillary Refill: < 3 seconds Skin Temperature: Warm Peripheral Pulses: within normal limits - Abdominal General gastrointestinal: soft, non-distended, normal bowel sounds - Integumentary Integumentary: Present: warm, dry - Psychiatric Psychiatric: other (Intubated, while awake on sedation) - Neurologic Neurologic: other (Intubated, while awake on sedation) - Allied Health Allied health notes reviewed: nursing, case management - Constitutional Vitals: Temp Pulse Resp BP Pulse Ox 99.9 F H 96 H 24 124/68 100 04/29/22 12:15 04/29/22 12:00 04/29/22 12:00 04/29/22 12:00 04/29/22 12:00 HEART Score - HEART Score Troponin: Troponin T 2.980 ng/mL (0.00-0.029) H* 04/19/22 07:11 Results - Labs CBC & Chem 7: 04/29/22 04:20 04/29/22 04:20 Labs: Laboratory Last Values WBC 19.8 K/mm3 (4.5-11.0) H 04/29/22 04:20 RBC 3.17 M/mm3 (3.65-5.03) L 04/29/22 04:20 Hgb 9.0 gm/dl (11.8-15.2) L 04/29/22 04:20 Hct 27.9 % (35.5-45.6) L 04/29/22 04:20 MCV 88 fl (84-94) 04/29/22 04:20 MCH 29 pg (28-32) 04/29/22 04:20 MCHC 32 % (32-34) 04/29/22 04:20 RDW 15.1 % (13.2-15.2) 04/29/22 04:20 Plt Count 481 K/mm3 (140-440) H 04/29/22 04:20 Lymph % (Auto) 5.7 % (13.4-35.0) L 04/29/22 04:20 [place] % (Auto) 7.8 % (0.0-7.3) H 04/29/22 04:20 Eos % (Auto) 3.9 % (0.0-4.3) 04/29/22 04:20 Baso % (Auto) 0.6 % (0.0-1.8) 04/29/22 04:20 Lymph # (Auto) 1.1 K/mm3 (1.2-5.4) L 04/29/22 04:20 [place] # (Auto) 1.5 K/mm3 (0.0-0.8) H 04/29/22 04:20 Eos # (Auto) 0.8 K/mm3 (0.0-0.4) H 04/29/22 04:20 Baso # (Auto) 0.1 K/mm3 (0.0-0.1) 04/29/22 04:20 Add Manual Diff Complete 04/23/22 04:19 Total Counted 100 04/23/22 04:19 Seg Neutrophils % 82.0 % (40.0-70.0) H 04/29/22 04:20 Seg Neuts % (Manual) 74.0 % (40.0-70.0) H 04/23/22 04:19 Band Neutrophils % 2.0 % 04/23/22 04:19 Lymphocytes % (Manual) 10.0 % (13.4-35.0) L 04/23/22 04:19 Reactive Lymphs % (Man) 0 % 04/23/22 04:19 Monocytes % (Manual) 7.0 % (0.0-7.3) 04/23/22 04:19 Eosinophils % (Manual) 7.0 % (0.0-4.3) H 04/23/22 04:19 Basophils % (Manual) 0 % (0.0-1.8) 04/23/22 04:19 Metamyelocytes % 0 % 04/23/22 04:19 Myelocytes % 0 % 04/23/22 04:19 Promyelocytes % 0 % 04/23/22 04:19 Blast Cells % 0 % 04/23/22 04:19 Nucleated RBC % Not Reportable 04/23/22 04:19 Seg Neutrophils # 16.3 K/mm3 (1.8-7.7) H 04/29/22 04:20 Seg Neutrophils # Man 8.0 K/mm3 (1.8-7.7) H 04/23/22 04:19 Band Neutrophils # 0.2 K/mm3 04/23/22 04:19 Lymphocytes # (Manual) 1.1 K/mm3 (1.2-5.4) L 04/23/22 04:19 Abs React Lymphs (Man) 0.0 K/mm3 04/23/22 04:19 Monocytes # (Manual) 0.8 K/mm3 (0.0-0.8) 04/23/22 04:19 Eosinophils # (Manual) 0.8 K/mm3 (0.0-0.4) H 04/23/22 04:19 Basophils # (Manual) 0.0 K/mm3 (0.0-0.1) 04/23/22 04:19 Metamyelocytes # 0.0 K/mm3 04/23/22 04:19 Myelocytes # 0.0 K/mm3 04/23/22 04:19 Promyelocytes # 0.0 K/mm3 04/23/22 04:19 Blast Cells # 0.0 K/mm3 04/23/22 04:19 WBC Morphology Not Reportable 04/23/22 04:19 Hypersegmented Neuts Not Reportable 04/23/22 04:19 Hyposegmented Neuts Not Reportable 04/23/22 04:19 Hypogranular Neuts Not Reportable 04/23/22 04:19 Smudge Cells Not Reportable 04/23/22 04:19 Toxic Granulation Not Reportable 04/23/22 04:19 Toxic Vacuolation Not Reportable 04/23/22 04:19 Dohle Bodies Not Reportable 04/23/22 04:19 Pelger-Huet Anomaly Not Reportable 04/23/22 04:19 Regla Rods Not Reportable 04/23/22 04:19 Platelet Estimate Consistent w auto 04/23/22 04:19 Clumped Platelets Not Reportable 04/23/22 04:19 Plt Clumps, EDTA Not Reportable 04/23/22 04:19 Large Platelets Not Reportable 04/23/22 04:19 Giant Platelets Not Reportable 04/23/22 04:19 Platelet Satelliting Not Reportable 04/23/22 04:19 Plt Morphology Comment Not Reportable 04/23/22 04:19 RBC Morphology Not Reportable 04/23/22 04:19 Dimorphic RBCs Not Reportable 04/23/22 04:19 Polychromasia Not Reportable 04/23/22 04:19 Hypochromasia Not Reportable 04/23/22 04:19 Poikilocytosis Not Reportable 04/23/22 04:19 Anisocytosis Not Reportable 04/23/22 04:19 Microcytosis Not Reportable 04/23/22 04:19 Macrocytosis Not Reportable 04/23/22 04:19 Spherocytes Not Reportable 04/23/22 04:19 Pappenheimer Bodies Not Reportable 04/23/22 04:19 Sickle Cells Not Reportable 04/23/22 04:19 Target Cells Not Reportable 04/23/22 04:19 Tear Drop Cells Not Reportable 04/23/22 04:19 Ovalocytes Not Reportable 04/23/22 04:19 Helmet Cells Not Reportable 04/23/22 04:19 [place] Bodies Not Reportable 04/23/22 04:19 [place] Rings Not Reportable 04/23/22 04:19 [place] Cells Not Reportable 04/23/22 04:19 Bite Cells Not Reportable 04/23/22 04:19 Crenated Cell Not Reportable 04/23/22 04:19 Elliptocytes Not Reportable 04/23/22 04:19 Acanthocytes (Spur) Not Reportable 04/23/22 04:19 Rouleaux Not Reportable 04/23/22 04:19 Hemoglobin C Crystals Not Reportable 04/23/22 04:19 Schistocytes Not Reportable 04/23/22 04:19 Malaria parasites Not Reportable 04/23/22 04:19 [place] Bodies Not Reportable 04/23/22 04:19 Hem Pathologist Commnt No 04/23/22 04:19 PT 15.6 Sec. (12.2-14.9) H 04/18/22 Unknown INR 1.08 (0.87-1.13) 04/18/22 Unknown APTT 28.6 Sec. (24.2-36.6) 04/18/22 Unknown Activated Coag Time 179 (74-137) H 04/21/22 12:14 Heparin Anti-Xa Level 0.16 U.I./ml (0.3-0.7) L 04/21/22 04:00 ABG pH 7.487 pH Units (7.350-7.450) H 04/29/22 03:20 ABG pCO2 37.3 mm Hg 04/29/22 03:20 ABG pO2 176.1 mm Hg (80.0-90.0) H 04/29/22 03:20 ABG HCO3 27.6 mmol/L (20.0-26.0) H 04/29/22 03:20 ABG O2 Saturation 99.2 % (95.0-99.0) H 04/29/22 03:20 ABG O2 Content 13.5 (0.0-44) 04/29/22 03:20 ABG Base Excess 4.0 mmol/L (-2.0-3.0) H 04/29/22 03:20 ABG Hemoglobin 9.6 gm/dl (14.0-18.0) L 04/29/22 03:20 ABG Carboxyhemoglobin 1.3 % (0.0-5.0) 04/29/22 03:20 ABG Methemoglobin 0.5 % (0.0-1.5) 04/29/22 03:20 Oxyhemoglobin 97.4 % (95.0-99.0) 04/29/22 03:20 FiO2 60 % 04/29/22 03:20 Sodium 139 mmol/L (137-145) 04/29/22 04:20 Potassium 3.6 mmol/L (3.6-5.0) 04/29/22 04:20 Chloride 101.1 mmol/L (98-107) 04/29/22 04:20 Carbon Dioxide 27 mmol/L (22-30) 04/29/22 04:20 Anion Gap 15 mmol/L 04/29/22 04:20 BUN 30 mg/dL (9-20) H 04/29/22 04:20 Creatinine 1.6 mg/dL (0.8-1.3) H 04/29/22 04:20 Estimated GFR 53 ml/min 04/29/22 04:20 BUN/Creatinine Ratio 19 % 04/29/22 04:20 Glucose 236 mg/dL (75-100) H 04/29/22 04:20 POC Glucose 202 mg/dL (70-105) H 04/29/22 05:43 Lactic Acid 1.90 mmol/L (0.7-2.0) 04/21/22 04:20 Calcium 8.1 mg/dL (8.4-10.2) L 04/29/22 04:20 Phosphorus 4.10 mg/dL (2.5-4.5) D 04/29/22 04:20 Magnesium 1.90 mg/dL (1.7-2.3) 04/29/22 04:20 Total Bilirubin 0.90 mg/dL (0.1-1.2) 04/29/22 04:20 AST 143 units/L (5-40) H 04/29/22 04:20 ALT 105 units/L (7-56) H 04/29/22 04:20 Alkaline Phosphatase 210 units/L (35-129) H 04/29/22 04:20 Total Creatine Kinase 61 units/L (55-170) 04/29/22 04:20 CK-MB (CK-2) 28.5 ng/mL (0.0-4.0) H 04/19/22 07:11 CK-MB (CK-2) Rel Index 0.8 (0-4) 04/19/22 07:11 Troponin T 2.980 ng/mL (0.00-0.029) H* 04/19/22 07:11 C-Reactive Protein 15.30 mg/dL (0.00-1.30) H 04/28/22 08:20 Total Protein 6.2 g/dL (6.3-8.2) L 04/29/22 04:20 Albumin 2.0 g/dL (3.9-5) L 04/29/22 04:20 Albumin/Globulin Ratio 0.5 % 04/29/22 04:20 Triglycerides 99 mg/dL (2-149) 04/28/22 05:28 Cholesterol 106 mg/dL (50-199) 04/17/22 19:56 LDL Cholesterol Direct 57 mg/dL (50-130) 04/17/22 19:56 HDL Cholesterol 40 mg/dL (40-59) 04/17/22 19:56 Cholesterol/HDL Ratio 2.65 % 04/17/22 19:56 Procalcitonin 44.70 ng/mL (<0.15) 04/22/22 04:32 Urine Color Straw (Yellow) 04/28/22 08:35 Urine Turbidity Clear (Clear) 04/28/22 08:35 Urine pH 6.0 (5.0-7.0) 04/28/22 08:35 Ur Specific [place] 1.000 (1.003-1.030) L 04/28/22 08:35 Urine Protein 300 mg/dl mg/dL (Negative) 04/28/22 08:35 Urine Glucose (UA) Negative mg/dL (Negative) 04/28/22 08:35 Urine Ketones Negative mg/dL (Negative) 04/28/22 08:35 Urine Blood 3+ (Negative) 04/28/22 08:35 Urine Nitrite Negative (Negative) 04/28/22 08:35 Ur Reducing Substances Not Reportable 04/28/22 08:35 Urine Bilirubin Negative (Negative) 04/28/22 08:35 Urine Ictotest Not Reportable 04/28/22 08:35 Urine Urobilinogen < 2.0 mg/dL (<2.0) 04/28/22 08:35 Ur Leukocyte Esterase Small (Negative) 04/28/22 08:35 Urine WBC (Auto) 21.0 /HPF (0.0-6.0) H 04/28/22 08:35 Urine RBC (Auto) 9.0 /HPF (0.0-6.0) 04/28/22 08:35 Urine Bacteria (Auto) 2+ /HPF (Negative) 04/19/22 02:08 Urine WBC Clumps 3+ /HPF 04/19/22 02:08 RBC Casts 34 /LPF 04/19/22 02:08 Urine Mucus Few /HPF 04/28/22 08:35 Urine Yeast (Budding) 3+ /HPF 04/19/22 02:08 Urine Eosinophils None seen (None Seen) 04/19/22 02:08 Urine Creatinine 90.9 mg/dL (0.1-20.0) H 04/19/22 02:08 Urine Sodium 54 mmol/L 04/19/22 02:08 Influenza A (RT-PCR) Negative (Negative) 04/29/22 11:44 Influenza B (RT-PCR) Negative (Negative) 04/29/22 11:44 Blood Type A POSITIVE 04/21/22 04:37 Antibody Screen Negative 04/21/22 04:37 Microbiology: Microbiology 04/26/22 08:57 Peripheral/Venous Blood Culture - Preliminary NO GROWTH AFTER 72 HOURS 04/28/22 08:35 Urine,Clean Catch Urine Culture - Preliminary NO GROWTH AFTER 24 HOURS 04/26/22 05:20 Peripheral/Venous Blood Culture - Preliminary NO GROWTH AFTER 72 HOURS 04/26/22 05:20 Urine,[place] Urine Culture - Final NO GROWTH AFTER 48 HOURS Penn/IV: Voiding Method Indwelling Catheter Active Medications - Current Medications Current Medications: Generic Name Dose Route Start Last Admin Trade Name Freq PRN Reason Stop Dose Admin Acetaminophen 650 mg 04/17/22 19:48 04/28/22 21:38 Acetaminophen 325 Mg Tab PO 650 mg Q6H PRN Administration Pain MILD(1-3)/Fever >100.5/CHE Albuterol 2.5 mg 04/17/22 19:48 Albuterol 2.5 Mg/3 Ml Nebu IH Q3HRT PRN Shortness Of Breath Aspirin 81 mg 04/20/22 12:00 04/29/22 09:42 Aspirin 81 Mg Tab Chew FEEDTUBE 81 mg QDAY FLACO Administration Atorvastatin Calcium 20 mg 04/20/22 22:00 04/28/22 20:59 Atorvastatin 20 Mg Tab FEEDTUBE 20 mg QHS FLACO Administration Dextrose 0 ml 04/17/22 23:46 Dextrose 50% In Water (25gm) 50 Ml Syringe IV Q30MIN PRN Hypoglycemia Protocol Digoxin 0.25 mg 04/29/22 14:00 Digoxin 0.5 Mg/2 Ml Inj IV 04/29/22 20:01 Q6H FLACO Docusate Sodium 100 mg 04/27/22 11:00 04/29/22 11:17 Docusate Sodium 100 Mg/10 Ml Oral Liqd FEEDTUBE Not Given BID FLACO Famotidine 20 mg 04/27/22 10:00 04/29/22 09:42 Famotidine 20 Mg Tab FEEDTUBE 20 mg BID FLACO Administration Fentanyl 50 mcg 04/17/22 20:22 04/18/22 03:52 Fentanyl 100 Mcg/2 Ml Inj IV 50 mcg Q10MIN PRN Administration ANALGESIA Heparin Sodium (Porcine) 5,000 unit 04/21/22 22:00 04/29/22 09:42 Heparin 5,000 Unit/1 Ml Vial SUB-Q 5,000 unit Q12HR FLACO Administration Hydrophilic Ointment 1 applic 04/18/22 06:02 04/26/22 20:29 Lip Therapy Vaseline TP 1 applic Q2HR PRN Administration Dry Lips Fentanyl Citrate 2,000 mcg in 100 mls @ 5.443 mls/hr 04/17/22 21:00 04/28/22 21:40 Fentanyl Drip Premix IV 0 mcg/kg/hr TITR FLACO 0 mls/hr Titration Protocol 1 MCG/KG/HR Propofol 1,000 mg in 100 mls @ 3.456 mls/hr 04/18/22 07:00 04/29/22 13:17 Diprivan 10 Mg/Ml IV 5 mcg/kg/min TITR FLACO 3.456 mls/hr Administration Protocol 5 MCG/KG/MIN Cefepime HCl 2 gm in 100 mls @ 200 mls/hr 04/28/22 08:00 04/29/22 10:30 Cefepime/Ns 2 Gm/100 Ml IV 200 mls/hr Q8H FLACO Administration Protocol Vancomycin HCl 1,750 mg/ 535 mls @ 333.333 mls/hr 04/28/22 10:00 04/29/22 11:16 Sodium Chloride IV 333.333 mls/hr Q24H FLACO Administration Dexmedetomidine HCl 400 mcg/ 104 mls @ 5.99 mls/hr 04/28/22 11:00 04/28/22 13:52 Sodium Chloride IV 0 mcg/kg/hr TITRATE FLACO 0 mls/hr Titration Protocol 0.2 MCG/KG/HR NORepinephrine/NS 8 MG-250 ML 8 mg in 250 mls @ 3.75 mls/hr 04/28/22 15:00 04/29/22 04:39 Norepinephrine/Ns 8 Mg-250 Ml (Double Conc) IV 4 mcg/min TITRATE FLACO 7.5 mls/hr Titration Protocol 2 MCG/MIN Insulin Glargine 25 units 04/29/22 11:00 04/29/22 12:11 Insulin Glargine 100 Units/Ml SUB-Q 25 units BID FLACO Administration Insulin Human Lispro 0 unit 04/18/22 00:00 04/29/22 12:12 Insulin Lispro 100 Unit/Ml SUB-Q Not Given Q6HR [facility] Protocol Insulin Human Lispro 10 unit 04/29/22 12:00 04/29/22 12:12 Insulin Lispro 100 Unit/Ml SUB-Q Not Given Q6HR [facility] Multi-Ingred Cream/Lotion/Oil/Oint 1 applic 04/18/22 06:02 Mineral Oil/Petrolatum, White Ophth Oint 3.5 Gm OU Q4HR PRN Dry Eye(s) Oxycodone/Acetaminophen 1 tab 04/22/22 11:05 Oxycodone /Acetaminophen 5-325mg Tab FEEDTUBE Q6H PRN Pain, Moderate (4-6) Senna/Docusate Sodium 2 tab 04/28/22 10:00 04/29/22 09:42 Sennosides/Docusate Sodium 8.6/50 Mg Tab FEEDTUBE Not Given BID FLACO Sodium Chloride 10 ml 04/17/22 22:00 04/29/22 09:43 Sodium Chloride 0.9% 10 Ml Flush Syringe IV 10 ml BID FLACO Administration Sodium Chloride 10 ml 04/17/22 19:48 Sodium Chloride 0.9% 10 Ml Flush Syringe IV PRN PRN LINE FLUSH Nutrition/Malnutrition Assess - Dietary Evaluation Nutrition/Malnutrition Findings: Nutrition Notes Start: 04/18/22 08:52 Freq: Status: Active Protocol: Document 04/29/22 11:29 ROMELIA (Rec: 04/29/22 11:55 ROMELIA [id number]) Nutrition Notes Initial or Follow up Reassessment Current Diagnosis Acute Kidney Injury,Diabetes, Sepsis,Hypertension, Respiratory Failure Other Pertinent Diagnosis s/p PEA w/ROSC, HFrEF, Pneumonia, Transaminitis, Rabdomyolisis, .. Current Diet TF-Nepro w/CARBSTEADY @ 35 ml/ hr (from D 04/21). Labs/Tests 04/29: BUN 30, Crea 1.6, Glu 236, Ca 8.1. Pertinent Medications 04/29: Humalog 4U, Propofol @ 3.456 ml/hr (91 Kcal), mothers nutritionally unremarkable. Height 5 ft 9 in Weight 115.2 kg [place] Body Weight (kg) 72.72 BMI 37.5 Weight change and time frame No body weight change reported in 11 days. Weight Status Obese Subjective/Other Information RD consult for routine F/U on TF tolerance/continuation assessment. TF continues as prescribed, no further information available at the time. Pt continues on Mechanical Ventilation, O2 saturation @ 100%, according to Physical Assessment History notes. Pt remains incontinent, according to Physical Assessment History notes. Pt presents blisters on the groin and on hand, according to Physical Assessment History notes. Percent of energy/protein needs met: Prescribed TF-Nepro w/ CARBSTEADY @ 35 ml/hr provides for energy/protein needs (1, 500 Kcal/68 g) during LOS, 77% Kcal; 90% AA. Including 91 Kcal from Propofol: 81% Kcal; 90% AA. Burn Absent Trauma Absent GI Symptoms None Food Allergy No Skin Integrity/Comment Blisters on the groin and on hand. Current % PO Other Minimum of two criteria No Fluid Accumulation N/A Reduced It Service Technician Strength N/A (non-severe) Protein-Calorie Malnutrition N\A #1 Nutrition Diagnosis Inadequate oral intake Diagnosis Progress(for reassessment Continues documentation) Is patient on ventilator? Yes Is Patient Ambulatory and/or Out of Bed No REE-([place]-confined to bed) 2323.608 Kcal/Kg value to use for calculation 17 Approximate Energy Requirements Using 1958 kcal/Kg Calculation Used for Recommendations Kcal/kg Additional Notes Protein: 0.8-1.2 g/Kg AdjBW; 75-113 g/day. Fluids: 1 ml/Kcal, or as per MD. Nutrition Intervention Nutrition Support: Continue TF-Nepro w/CARBSTEADY @ 35 ml/hr. Flush: 220 ml water Q 4 hr, or as per MD. Kcal 1,500 Protein (gm) 68 Carbohydrates (gm) 134 Fat (gm) 80 Fluid (mL) 606 Fiber (gm) 11 % RDI: 77% Kcal; 90% AA. Goal #1 Provide at least 75% of energy /protein needs through Enteral Feeding during LOS. Follow-Up By: 05/06/22 Additional Comments Continue monitoring TF tolerance, ventilation status, vasopressors, and BM. <GABRIELE HUFF - Last Filed: 04/30/22 07:20> Assessment and Plan Assessment and plan: I saw and evaluated the patient. I agree with the findings and the plan of care as documented in the Nurse Practitioner's~note, with the following corrections and additions. Hospitalist Physical - Constitutional Vitals: Temp Pulse Resp BP Pulse Ox 98.9 F 87 24 121/68 98 04/30/22 04:00 04/30/22 06:30 04/30/22 06:30 04/30/22 06:30 04/30/22 06:30 HEART Score - HEART Score Troponin: Troponin T 2.980 ng/mL (0.00-0.029) H* 04/19/22 07:11 Results - Labs CBC & Chem 7: 04/30/22 04:25 04/30/22 04:25 Labs: Laboratory Last Values WBC 13.3 K/mm3 (4.5-11.0) H 04/30/22 04:25 RBC 2.81 M/mm3 (3.65-5.03) L 04/30/22 04:25 Hgb 8.0 gm/dl (11.8-15.2) L 04/30/22 04:25 Hct 24.4 % (35.5-45.6) L 04/30/22 04:25 MCV 87 fl (84-94) 04/30/22 04:25 MCH 28 pg (28-32) 04/30/22 04:25 MCHC 33 % (32-34) 04/30/22 04:25 RDW 15.2 % (13.2-15.2) 04/30/22 04:25 Plt Count 441 K/mm3 (140-440) H 04/30/22 04:25 Lymph % (Auto) 5.7 % (13.4-35.0) L 04/29/22 04:20 [place] % (Auto) 7.8 % (0.0-7.3) H 04/29/22 04:20 Eos % (Auto) 3.9 % (0.0-4.3) 04/29/22 04:20 Baso % (Auto) 0.6 % (0.0-1.8) 04/29/22 04:20 Lymph # (Auto) 1.1 K/mm3 (1.2-5.4) L 04/29/22 04:20 [place] # (Auto) 1.5 K/mm3 (0.0-0.8) H 04/29/22 04:20 Eos # (Auto) 0.8 K/mm3 (0.0-0.4) H 04/29/22 04:20 Baso # (Auto) 0.1 K/mm3 (0.0-0.1) 04/29/22 04:20 Add Manual Diff Complete 04/23/22 04:19 Total Counted 100 04/23/22 04:19 Seg Neutrophils % 82.0 % (40.0-70.0) H 04/29/22 04:20 Seg Neuts % (Manual) 74.0 % (40.0-70.0) H 04/23/22 04:19 Band Neutrophils % 2.0 % 04/23/22 04:19 Lymphocytes % (Manual) 10.0 % (13.4-35.0) L 04/23/22 04:19 Reactive Lymphs % (Man) 0 % 04/23/22 04:19 Monocytes % (Manual) 7.0 % (0.0-7.3) 04/23/22 04:19 Eosinophils % (Manual) 7.0 % (0.0-4.3) H 04/23/22 04:19 Basophils % (Manual) 0 % (0.0-1.8) 04/23/22 04:19 Metamyelocytes % 0 % 04/23/22 04:19 Myelocytes % 0 % 04/23/22 04:19 Promyelocytes % 0 % 04/23/22 04:19 Blast Cells % 0 % 04/23/22 04:19 Nucleated RBC % Not Reportable 04/23/22 04:19 Seg Neutrophils # 16.3 K/mm3 (1.8-7.7) H 04/29/22 04:20 Seg Neutrophils # Man 8.0 K/mm3 (1.8-7.7) H 04/23/22 04:19 Band Neutrophils # 0.2 K/mm3 04/23/22 04:19 Lymphocytes # (Manual) 1.1 K/mm3 (1.2-5.4) L 04/23/22 04:19 Abs React Lymphs (Man) 0.0 K/mm3 04/23/22 04:19 Monocytes # (Manual) 0.8 K/mm3 (0.0-0.8) 04/23/22 04:19 Eosinophils # (Manual) 0.8 K/mm3 (0.0-0.4) H 04/23/22 04:19 Basophils # (Manual) 0.0 K/mm3 (0.0-0.1) 04/23/22 04:19 Metamyelocytes # 0.0 K/mm3 04/23/22 04:19 Myelocytes # 0.0 K/mm3 04/23/22 04:19 Promyelocytes # 0.0 K/mm3 04/23/22 04:19 Blast Cells # 0.0 K/mm3 04/23/22 04:19 WBC Morphology Not Reportable 04/23/22 04:19 Hypersegmented Neuts Not Reportable 04/23/22 04:19 Hyposegmented Neuts Not Reportable 04/23/22 04:19 Hypogranular Neuts Not Reportable 04/23/22 04:19 Smudge Cells Not Reportable 04/23/22 04:19 Toxic Granulation Not Reportable 04/23/22 04:19 Toxic Vacuolation Not Reportable 04/23/22 04:19 Dohle Bodies Not Reportable 04/23/22 04:19 Pelger-Huet Anomaly Not Reportable 04/23/22 04:19 Regla Rods Not Reportable 04/23/22 04:19 Platelet Estimate Consistent w auto 04/23/22 04:19 Clumped Platelets Not Reportable 04/23/22 04:19 Plt Clumps, EDTA Not Reportable 04/23/22 04:19 Large Platelets Not Reportable 04/23/22 04:19 Giant Platelets Not Reportable 04/23/22 04:19 Platelet Satelliting Not Reportable 04/23/22 04:19 Plt Morphology Comment Not Reportable 04/23/22 04:19 RBC Morphology Not Reportable 04/23/22 04:19 Dimorphic RBCs Not Reportable 04/23/22 04:19 Polychromasia Not Reportable 04/23/22 04:19 Hypochromasia Not Reportable 04/23/22 04:19 Poikilocytosis Not Reportable 04/23/22 04:19 Anisocytosis Not Reportable 04/23/22 04:19 Microcytosis Not Reportable 04/23/22 04:19 Macrocytosis Not Reportable 04/23/22 04:19 Spherocytes Not Reportable 04/23/22 04:19 Pappenheimer Bodies Not Reportable 04/23/22 04:19 Sickle Cells Not Reportable 04/23/22 04:19 Target Cells Not Reportable 04/23/22 04:19 Tear Drop Cells Not Reportable 04/23/22 04:19 Ovalocytes Not Reportable 04/23/22 04:19 Helmet Cells Not Reportable 04/23/22 04:19 [place] Bodies Not Reportable 04/23/22 04:19 [place] Rings Not Reportable 04/23/22 04:19 [place] Cells Not Reportable 04/23/22 04:19 Bite Cells Not Reportable 04/23/22 04:19 Crenated Cell Not Reportable 04/23/22 04:19 Elliptocytes Not Reportable 04/23/22 04:19 Acanthocytes (Spur) Not Reportable 04/23/22 04:19 Rouleaux Not Reportable 04/23/22 04:19 Hemoglobin C Crystals Not Reportable 04/23/22 04:19 Schistocytes Not Reportable 04/23/22 04:19 Malaria parasites Not Reportable 04/23/22 04:19 [place] Bodies Not Reportable 04/23/22 04:19 Hem Pathologist Commnt No 04/23/22 04:19 PT 15.6 Sec. (12.2-14.9) H 04/18/22 Unknown INR 1.08 (0.87-1.13) 04/18/22 Unknown APTT 28.6 Sec. (24.2-36.6) 04/18/22 Unknown Activated Coag Time 179 (74-137) H 04/21/22 12:14 Heparin Anti-Xa Level 0.16 U.I./ml (0.3-0.7) L 04/21/22 04:00 ABG pH 7.514 pH Units (7.350-7.450) H 04/30/22 05:20 ABG pCO2 35.6 mm Hg 04/30/22 05:20 ABG pO2 73.4 mm Hg (80.0-90.0) L 04/30/22 05:20 ABG HCO3 28.1 mmol/L (20.0-26.0) H 04/30/22 05:20 ABG O2 Saturation 96.8 % (95.0-99.0) 04/30/22 05:20 ABG O2 Content 10.5 (0.0-44) 04/30/22 05:20 ABG Base Excess 4.8 mmol/L (-2.0-3.0) H 04/30/22 05:20 ABG Hemoglobin 7.8 gm/dl (14.0-18.0) L 04/30/22 05:20 ABG Carboxyhemoglobin 1.4 % (0.0-5.0) 04/30/22 05:20 ABG Methemoglobin 0.6 % (0.0-1.5) 04/30/22 05:20 Oxyhemoglobin 94.9 % (95.0-99.0) L 04/30/22 05:20 FiO2 30 % 04/30/22 05:20 Sodium 145 mmol/L (137-145) 04/30/22 04:25 Potassium 3.2 mmol/L (3.6-5.0) L 04/30/22 04:25 Chloride 106.5 mmol/L (98-107) 04/30/22 04:25 Carbon Dioxide 27 mmol/L (22-30) 04/30/22 04:25 Anion Gap 15 mmol/L 04/30/22 04:25 BUN 26 mg/dL (9-20) H 04/30/22 04:25 Creatinine 1.5 mg/dL (0.8-1.3) H 04/30/22 04:25 Estimated GFR 57 ml/min 04/30/22 04:25 BUN/Creatinine Ratio 17 % 04/30/22 04:25 Glucose 105 mg/dL (75-100) H 04/30/22 04:25 POC Glucose 135 mg/dL (70-105) H 04/29/22 23:58 Lactic Acid 1.90 mmol/L (0.7-2.0) 04/21/22 04:20 Calcium 8.0 mg/dL (8.4-10.2) L 04/30/22 04:25 Phosphorus 2.50 mg/dL (2.5-4.5) D 04/30/22 04:25 Magnesium 2.00 mg/dL (1.7-2.3) 04/30/22 04:25 Total Bilirubin 0.40 mg/dL (0.1-1.2) 04/30/22 04:25 Direct Bilirubin 0.3 mg/dL (0-0.2) H 04/30/22 04:25 Indirect Bilirubin 0.1 mg/dL 04/30/22 04:25 AST 138 units/L (5-40) H 04/30/22 04:25 ALT 94 units/L (7-56) H 04/30/22 04:25 Alkaline Phosphatase 172 units/L (35-129) H 04/30/22 04:25 Total Creatine Kinase 61 units/L (55-170) 04/29/22 04:20 CK-MB (CK-2) 28.5 ng/mL (0.0-4.0) H 04/19/22 07:11 CK-MB (CK-2) Rel Index 0.8 (0-4) 04/19/22 07:11 Troponin T 2.980 ng/mL (0.00-0.029) H* 04/19/22 07:11 C-Reactive Protein 15.30 mg/dL (0.00-1.30) H 04/28/22 08:20 Total Protein 5.5 g/dL (6.3-8.2) L 04/30/22 04:25 Albumin 2.0 g/dL (3.9-5) L 04/30/22 04:25 Albumin/Globulin Ratio 0.6 % 04/30/22 04:25 Triglycerides 99 mg/dL (2-149) 04/28/22 05:28 Cholesterol 106 mg/dL (50-199) 04/17/22 19:56 LDL Cholesterol Direct 57 mg/dL (50-130) 04/17/22 19:56 HDL Cholesterol 40 mg/dL (40-59) 04/17/22 19:56 Cholesterol/HDL Ratio 2.65 % 04/17/22 19:56 Procalcitonin 2.90 ng/mL (<0.15) 04/28/22 Unknown Urine Color Straw (Yellow) 04/28/22 08:35 Urine Turbidity Clear (Clear) 04/28/22 08:35 Urine pH 6.0 (5.0-7.0) 04/28/22 08:35 Ur Specific [place] 1.000 (1.003-1.030) L 04/28/22 08:35 Urine Protein 300 mg/dl mg/dL (Negative) 04/28/22 08:35 Urine Glucose (UA) Negative mg/dL (Negative) 04/28/22 08:35 Urine Ketones Negative mg/dL (Negative) 04/28/22 08:35 Urine Blood 3+ (Negative) 04/28/22 08:35 Urine Nitrite Negative (Negative) 04/28/22 08:35 Ur Reducing Substances Not Reportable 04/28/22 08:35 Urine Bilirubin Negative (Negative) 04/28/22 08:35 Urine Ictotest Not Reportable 04/28/22 08:35 Urine Urobilinogen < 2.0 mg/dL (<2.0) 04/28/22 08:35 Ur Leukocyte Esterase Small (Negative) 04/28/22 08:35 Urine WBC (Auto) 21.0 /HPF (0.0-6.0) H 04/28/22 08:35 Urine RBC (Auto) 9.0 /HPF (0.0-6.0) 04/28/22 08:35 Urine Bacteria (Auto) 2+ /HPF (Negative) 04/19/22 02:08 Urine WBC Clumps 3+ /HPF 04/19/22 02:08 RBC Casts 34 /LPF 04/19/22 02:08 Urine Mucus Few /HPF 04/28/22 08:35 Urine Yeast (Budding) 3+ /HPF 04/19/22 02:08 Urine Eosinophils None seen (None Seen) 04/19/22 02:08 Urine Creatinine 90.9 mg/dL (0.1-20.0) H 04/19/22 02:08 Urine Sodium 54 mmol/L 04/19/22 02:08 Digoxin 0.6 ng/mL (0.9-2.0) L 04/30/22 04:25 Coronavirus (PCR) Positive (Negative) A 04/29/22 09:38 Influenza A (RT-PCR) Negative (Negative) 04/29/22 11:44 Influenza B (RT-PCR) Negative (Negative) 04/29/22 11:44 Blood Type A POSITIVE 04/21/22 04:37 Antibody Screen Negative 04/21/22 04:37 Microbiology: Microbiology 04/26/22 05:20 Peripheral/Venous Blood Culture - Preliminary NO GROWTH AFTER 4 DAYS 04/28/22 07:26 Tracheal Aspirate Sputum Culture - Preliminary 04/26/22 08:57 Peripheral/Venous Blood Culture - Preliminary NO GROWTH AFTER 72 HOURS 04/28/22 08:35 Urine,Clean Catch Urine Culture - Preliminary NO GROWTH AFTER 24 HOURS [place]/IV: Voiding Method Indwelling Catheter Active Medications - Current Medications Current Medications: Generic Name Dose Route Start Last Admin Trade Name Freq PRN Reason Stop Dose Admin Acetaminophen 650 mg 04/17/22 19:48 04/28/22 21:38 Acetaminophen 325 Mg Tab PO 650 mg Q6H PRN Administration Pain MILD(1-3)/Fever >100.5/CHE Albuterol 2.5 mg 04/17/22 19:48 Albuterol 2.5 Mg/3 Ml Nebu IH Q3HRT PRN Shortness Of Breath Aspirin 81 mg 04/20/22 12:00 04/29/22 09:42 Aspirin 81 Mg Tab Chew FEEDTUBE 81 mg QDAY FLACO Administration Atorvastatin Calcium 20 mg 04/20/22 22:00 04/29/22 21:38 Atorvastatin 20 Mg Tab FEEDTUBE 20 mg QHS FLACO Administration Dextrose 0 ml 04/17/22 23:46 Dextrose 50% In Water (25gm) 50 Ml Syringe IV Q30MIN PRN Hypoglycemia Protocol Docusate Sodium 100 mg 04/27/22 11:00 04/29/22 21:38 Docusate Sodium 100 Mg/10 Ml Oral Liqd FEEDTUBE 100 mg BID FLACO Administration Famotidine 20 mg 04/27/22 10:00 04/29/22 21:38 Famotidine 20 Mg Tab FEEDTUBE 20 mg BID FLACO Administration Fentanyl 50 mcg 04/17/22 20:22 04/18/22 03:52 Fentanyl 100 Mcg/2 Ml Inj IV 50 mcg Q10MIN PRN Administration ANALGESIA Heparin Sodium (Porcine) 5,000 unit 04/21/22 22:00 04/29/22 21:38 Heparin 5,000 Unit/1 Ml Vial SUB-Q 5,000 unit Q12HR FLACO Administration Hydrophilic Ointment 1 applic 04/18/22 06:02 04/26/22 20:29 Lip Therapy Vaseline TP 1 applic Q2HR PRN Administration Dry Lips Fentanyl Citrate 2,000 mcg in 100 mls @ 5.443 mls/hr 04/17/22 21:00 04/28/22 21:40 Fentanyl Drip Premix IV 0 mcg/kg/hr TITR FLACO 0 mls/hr Titration Protocol 1 MCG/KG/HR Propofol 1,000 mg in 100 mls @ 3.456 mls/hr 04/18/22 07:00 04/30/22 04:45 Diprivan 10 Mg/Ml IV 15 mcg/kg/min TITR FLACO 10.368 mls/hr Administration Protocol 5 MCG/KG/MIN Cefepime HCl 2 gm in 100 mls @ 200 mls/hr 04/28/22 08:00 04/30/22 00:05 Cefepime/Ns 2 Gm/100 Ml IV 200 mls/hr Q8H FLACO Administration Protocol Vancomycin HCl 1,750 mg/ 535 mls @ 333.333 mls/hr 04/28/22 10:00 04/29/22 11:16 Sodium Chloride IV 333.333 mls/hr Q24H FLACO Administration Dexmedetomidine HCl 400 mcg/ 104 mls @ 5.99 mls/hr 04/28/22 11:00 04/28/22 13 :52 Sodium Chloride IV 0 mcg/kg/hr TITRATE FLACO 0 mls/hr Titration Protocol 0.2 MCG/KG/HR NORepinephrine/NS 8 MG-250 ML 8 mg in 250 mls @ 3.75 mls/hr 04/28/22 15:00 04/29/22 04:39 Norepinephrine/Ns 8 Mg-250 Ml (Double Conc) IV 4 mcg/min TITRATE FLACO 7.5 mls/hr Titration Protocol 2 MCG/MIN Insulin Glargine 25 units 04/29/22 11:00 04/29/22 21:38 Insulin Glargine 100 Units/Ml SUB-Q 25 units BID FLACO Administration Insulin Human Lispro 0 unit 04/18/22 00:00 04/30/22 05:51 Insulin Lispro 100 Unit/Ml SUB-Q Not Given Q6HR [facility] Protocol Insulin Human Lispro 10 unit 04/29/22 12:00 04/30/22 05:51 Insulin Lispro 100 Unit/Ml SUB-Q Not Given Q6HR [facility] Multi-Ingred Cream/Lotion/Oil/Oint 1 applic 04/18/22 06:02 Mineral Oil/Petrolatum, White Ophth Oint 3.5 Gm OU Q4HR PRN Dry Eye(s) Oxycodone/Acetaminophen 1 tab 04/22/22 11:05 Oxycodone /Acetaminophen 5-325mg Tab FEEDTUBE Q6H PRN Pain, Moderate (4-6) Senna/Docusate Sodium 2 tab 04/28/22 10:00 04/29/22 21:38 Sennosides/Docusate Sodium 8.6/50 Mg Tab FEEDTUBE 2 tab BID FLACO Administration Sodium Chloride 10 ml 04/17/22 22:00 04/29/22 21:38 Sodium Chloride 0.9% 10 Ml Flush Syringe IV 10 ml BID FLACO Administration Sodium Chloride 10 ml 04/17/22 19:48 Sodium Chloride 0.9% 10 Ml Flush Syringe IV PRN PRN LINE FLUSH Nutrition/Malnutrition Assess - Dietary Evaluation Nutrition/Malnutrition Findings: Nutrition Notes Start: 04/18/22 08:5 2 Freq: Status: Active Protocol: Document 04/29/22 11:29 ROMELIA (Rec: 04/29/22 11:55 ROMELIA [id number]) Nutrition Notes Initial or Follow up Reassessment Current Diagnosis Acute Kidney Injury,Diabetes, Sepsis,Hypertension, Respiratory Failure Other Pertinent Diagnosis s/p PEA w/ROSC, HFrEF, Pneumonia, Transaminitis, Rabdomyolisis, .. Current Diet TF-Nepro w/CARBSTEADY @ 35 ml/ hr (from D 04/21). Labs/Tests 04/29: BUN 30, Crea 1.6, Glu 236, Ca 8.1. Pertinent Medications 04/29: Humalog 4U, Propofol @ 3.456 ml/hr (91 Kcal), mothers nutritionally unremarkable. Height 5 ft 9 in Weight 115.2 kg [place] Body Weight (kg) 72.72 BMI 37.5 Weight change and time frame No body weight change reported in 11 days. Weight Status Obese Subjective/Other Information RD consult for routine F/U on TF tolerance/continuation assessment. TF continues as prescribed, no further information available at the time. Pt continues on Mechanical Ventilation, O2 saturation @ 100%, according to Physical Assessment History notes. Pt remains incontinent, according to Physical Assessment History notes. Pt presents blisters on the groin and on hand, according to Physical Assessment History notes. Percent of energy/protein needs met: Prescribed TF-Nepro w/ CARBSTEADY @ 35 ml/hr provides for energy/protein needs (1, 500 Kcal/68 g) during LOS, 77% Kcal; 90% AA. Including 91 Kcal from Propofol: 81% Kcal; 90% AA. Burn Absent Trauma Absent GI Symptoms None Food Allergy No Skin Integrity/Comment Blisters on the groin and on hand. Current % PO Other Minimum of two criteria No Fluid Accumulation N/A Reduced It Service Technician Strength N/A (non-severe) Protein-Calorie Malnutrition N\A #1 Nutrition Diagnosis Inadequate oral intake Diagnosis Progress(for reassessment Continues documentation) Is patient on ventilator? Yes Is Patient Ambulatory and/or Out of Bed No REE-([facility]-confined to bed) 2323.608 Kcal/Kg value to use for calculation 17 Approximate Energy Requirements Using 1958 kcal/Kg Calculation Used for Recommendations Kcal/kg Additional Notes Protein: 0.8-1.2 g/Kg AdjBW; 75-113 g/day. Fluids: 1 ml/Kcal, or as per MD. Nutrition Intervention Nutrition Support: Continue TF-Nepro w/CARBSTEADY @ 35 ml/hr. Flush: 220 ml water Q 4 hr, or as per MD. Kcal 1,500 Protein (gm) 68 Carbohydrates (gm) 134 Fat (gm) 80 Fluid (mL) 606 Fiber (gm) 11 % RDI: 77% Kcal; 90% AA. Goal #1 Provide at least 75% of energy /protein needs through Enteral Feeding during LOS. Follow-Up By: 05/06/22 Additional Comments Continue monitoring TF tolerance, ventilation status, vasopressors, and BM.
[2022-04-29] MEDS: DIGOXIN 0.5 MG/2 ML INJ IV SCH ×2 (14:32→20:55)
[2022-04-30] MEDS: CEFEPIME/NS 2 GM/100 ML 2 GM/100 ML BAG IV SCH ×3 (00:05→15:25)
[2022-04-30] MEDS: INSULIN LISPRO 100 UNIT/ML SUB-Q SCH ×8 (00:10→17:40)
[2022-04-30] MEDS: FREE WATER PO SCH ×2 (02:00→05:51)
--- NOTE | 2022-04-30 03:06 | XRay Report ---
CHEST 1 VIEW 04/30/2022 2:27 AM INDICATION / CLINICAL INFORMATION: Follow up respiratory failure. COMPARISON: None available. FINDINGS: SUPPORT DEVICES: ET tube is 5.6 cm above the law HEART / MEDIASTINUM: No significant abnormality. LUNGS / PLEURA: Diffuse opacities in bilateral lungs with effusions No pneumothorax. Signer Name: Lewis Roe MD Signed: 04/30/2022 3:02 AM Workstation Name: [id number]
[2022-04-30 05:05] LABS: Hematocrit 24.4 % (35.5-45.6); Mean Corpuscular HGB Conc 33 % (32-34); Mean Corpuscular Volume 87 fl (84-94); Platelet Count 441 K/mm3 (140-440); Red Blood Count 2.81 M/mm3 (3.65-5.03); Red Cell Distribution Width 15.2 % (13.2-15.2)
[2022-04-30 05:41] LABS: Bilirubin,Direct 0.3 mg/dL (0-0.2)
[2022-04-30 06:12] LABS: ABG Base Excess 4.8 mmol/L (-2.0-3.0); ABG HCO3 28.1 mmol/L (20.0-26.0); ABG Methemoglobin 0.6 % (0.0-1.5); ABG Oxygen Saturation 96.8 % (95.0-99.0); ABG PCO2 35.6 mm Hg; ABG PH 7.514 pH Units (7.350-7.450); ABG PO2 73.4 mm Hg (80.0-90.0)
--- NOTE | 2022-04-30 07:49 | Progress Note ---
Assessment and Plan Cultures: 04/17/2022 blood culture: No growth 04/17/2022 tracheal aspirate culture: Usual respiratory adina 04/18/2022 urine culture: No growth 04/26/2022 blood culture: No growth 04/26/2022 urine culture: No growth 04/28/2022 sputum culture: In process 04/28/2022 urine culture: No growth 04/29/2022 COVID-19 PCR: Positive A/P: 62-year-old male with obesity, hypertension, diabetes, atrial fibrillation was admitted to the hospital on 04/17/2022 with out of hospital cardiac arrest/V. fib arrest with ROSC. He was severely acidotic, placed on pressors, intubated, on mechanical ventilation: #Severe sepsis: Etiology unclear. Ruled out bacteremia, catheter associated UTI so far. COVID-19 positive #COVID-19 #S/p mel-bi-nsuemiil cardiac arrest/V. fib arrest, cardiogenic shock #VINCENT: Renally adjust antibiotics. Creatinine gradually better. #Aspiration pneumonia #Acute hypoxic respiratory failure: On mechanical ventilation. #Acute urinary retention: Has Dunbar catheter in place. Recs: -agree with steroids for COVID-19 -given improvement in renal function, will order remdesivir -Continue empiric IV cefepime and vancomycin. Stop vancomycin if resp culture does not grow MRSA -Follow-up sputum culture from 04/28/2022 -f/u RUQ ultrasound Orion Chung MD, [facility] O: [phone] F: [phone] C: [phone] Subjective Date of service: 04/30/22 Principal diagnosis: AHRF; AMS; Pneumonia; Shock; DM II; Severe Metabolic Acidosis Interval history: Afebrile. Remains on the vent. Tested positive for COVID-19. WBC 13.3. Creatinine 1.5 Objective - Exam Narrative Exam: Physical Exam: Constitutional: intubated, on the vent Head, Ears, Nose: Normocephalic, atraumatic. External ears, nose normal Eyes: Conjunctivae/corneas clear. No icterus. No ptosis. Neck: intubated Oral: intubated Cardiovascular: S1, S2 + Respiratory: AE fair bilaterally and equal GI: Soft, bowel sounds + Musculoskeletal: No pedal edema, no cyanosis. Skin: No rash or abscess Hem/Lymphatic: No palpable cervical or supraclavicular nodes. No lymphangitis Psych: no agitation Neurological: intubated, on the vent, exam limited - Constitutional Vitals: Vital Signs Temp Pulse Resp BP Pulse Ox 98.9 F 93 H 24 118/70 98 04/30/22 04:00 04/30/22 07:22 04/30/22 06:30 04/30/22 07:22 04/30/22 07:22 Temperature -Last 24 Hours Temperature 98.9 F Temperature 98.9 F Temperature 99.4 F Temperature 99.9 F - Labs CBC & Chem 7: 04/30/22 04:25 04/30/22 04:25 Labs: Abnormal lab results 04/29/22 04/29/22 04/29/22 Range/Units 09:38 12:08 18:14 WBC (4.5-11.0) K/mm3 RBC (3.65-5.03) M/mm3 Hgb (11.8-15.2) gm/dl Hct (35.5-45.6) % Plt Count (140-440) K/mm3 ABG pH (7.350-7.450) pH Units ABG pO2 (80.0-90.0) mm Hg ABG HCO3 (20.0-26.0) mmol/L ABG Base Excess (-2.0-3.0) mmol/L ABG Hemoglobin (14.0-18.0) gm/dl Oxyhemoglobin (95.0-99.0) % Potassium (3.6-5.0) mmol/L BUN (9-20) mg/dL Creatinine (0.8-1.3) mg/dL Glucose (75-100) mg/dL POC Glucose 152 H 151 H (70-105) mg/dL Calcium (8.4-10.2) mg/dL Direct Bilirubin (0-0.2) mg/dL AST (5-40) units/L ALT (7-56) units/L Alkaline Phosphatase (35-129) units/L Total Protein (6.3-8.2) g/dL Albumin (3.9-5) g/dL Digoxin (0.9-2.0) ng/mL Coronavirus (PCR) Positive A (Negative) 04/29/22 04/29/22 04/30/22 Range/Units 21:11 23:58 04:25 WBC 13.3 H (4.5-11.0) K/mm3 RBC 2.81 L (3.65-5.03) M/mm3 Hgb 8.0 L (11.8-15.2) gm/dl Hct 24.4 L (35.5-45.6) % Plt Count 441 H (140-440) K/mm3 ABG pH (7.350-7.450) pH Units ABG pO2 (80.0-90.0) mm Hg ABG HCO3 (20.0-26.0) mmol/L ABG Base Excess (-2.0-3.0) mmol/L ABG Hemoglobin (14.0-18.0) gm/dl Oxyhemoglobin (95.0-99.0) % Potassium (3.6-5.0) mmol/L BUN (9-20) mg/dL Creatinine (0.8-1.3) mg/dL Glucose (75-100) mg/dL POC Glucose 140 H 135 H (70-105) mg/dL Calcium (8.4-10.2) mg/dL Direct Bilirubin (0-0.2) mg/dL AST (5-40) units/L ALT (7-56) units/L Alkaline Phosphatase (35-129) units/L Total Protein (6.3-8.2) g/dL Albumin (3.9-5) g/dL Digoxin (0.9-2.0) ng/mL Coronavirus (PCR) (Negative) 04/30/22 04/30/22 04/30/22 Range/Units 04:25 04:25 05:20 WBC (4.5-11.0) K/mm3 RBC (3.65-5.03) M/mm3 Hgb (11.8-15.2) gm/dl Hct (35.5-45.6) % Plt Count (140-440) K/mm3 ABG pH 7.514 H (7.350-7.450) pH Units ABG pO2 73.4 L (80.0-90.0) mm Hg ABG HCO3 28.1 H (20.0-26.0) mmol/L ABG Base Excess 4.8 H (-2.0-3.0) mmol/L ABG Hemoglobin 7.8 L (14.0-18.0) gm/dl Oxyhemoglobin 94.9 L (95.0-99.0) % Potassium 3.2 L (3.6-5.0) mmol/L BUN 26 H (9-20) mg/dL Creatinine 1.5 H (0.8-1.3) mg/dL Glucose 105 H (75-100) mg/dL POC Glucose (70-105) mg/dL Calcium 8.0 L (8.4-10.2) mg/dL Direct Bilirubin 0.3 H (0-0.2) mg/dL AST 138 H (5-40) units/L ALT 94 H (7-56) units/L Alkaline Phosphatase 172 H (35-129) units/L Total Protein 5.5 L (6.3-8.2) g/dL Albumin 2.0 L (3.9-5) g/dL Digoxin 0.6 L (0.9-2.0) ng/mL Coronavirus (PCR) (Negative)
--- NOTE | 2022-04-30 08:03 | Progress Note ---
Assessment and Plan 1. Acute kidney injury: Vasomotor VINCENT in the setting of shock. IV contrast on 04/17. Renal US negative. Monitor renal function. Creatinine level is better. Avoid nephrotoxic agents. Meds dosage based on GFR. 2. FEN: Hypernatremia, improved. Anion-gap metabolic acidosis, improved, monitor. Replete lytes as needed. Monitor lytes and volume status. 3. S/p V.fib Cardiac arrest, POA: On Digoxin. Followed by Cards. Monitor. 4. Shock: Currently off pressors. Monitor. 5. A.fib: Followed by Cards. Monitor. 6. Acute Hypoxemic Respiratory Failure: Bilateral Pneumonia- Probable Aspiration. CTA negative for PE, reveals bilateral airspace disease, greater in the Upper lobs. Intubated in the filed during code on 04/17. Self extubated and Re-intubated 04/28. Monitor. 7. Elevated ALT & AST: Improved. 8. Acute metabolic encephalopathy, POA: Monitor. 9. Rhabdomyolysis: Improved. Subjective: Patient was seen and examined at the bedside. Examination: General appearance: well-developed, appears stated age, obese, intubated, on vent HEENT: atraumatic, no icterus, pupils equal Neck: trachea midline Respiratory: coarse breath sounds bilaterally Heart: S1S2, no murmur Abdomen: soft, bowel sounds heard, NT Integumentary: no obvious rash Neurologic: somnolent, opens eyes Ext: no edema Subjective Date of service: 04/30/22 Principal diagnosis: AHRF; AMS; Pneumonia; Shock; DM II; Severe Metabolic Acidosis Objective - Vital Signs Vital signs: Vital Signs - 12hr 04/29/22 04/29/22 04/29/22 20:16 20:30 20:46 Temperature Pulse Rate 96 H 95 H 86 Pulse Rate [ From Monitor] Respiratory 24 24 24 Rate Blood Pressure 120/74 120/74 126/65 O2 Sat by Pulse 100 100 100 Oximetry 04/29/22 04/29/22 04/29/22 20:55 21:00 21:16 Temperature Pulse Rate 93 H 93 H 90 Pulse Rate [ From Monitor] Respiratory 24 24 Rate Blood Pressure 122/69 126/65 122/69 O2 Sat by Pulse 99 100 Oximetry 04/29/22 04/29/22 04/29/22 21:30 21:46 22:00 Temperature Pulse Rate 86 97 H 91 H Pulse Rate [ From Monitor] Respiratory 25 H 24 24 Rate Blood Pressure 122/69 129/70 129/70 O2 Sat by Pulse 100 99 99 Oximetry 04/29/22 04/29/22 04/29/22 22:16 22:30 22:46 Temperature Pulse Rate 87 91 H 93 H Pulse Rate [ From Monitor] Respiratory 24 24 24 Rate Blood Pressure 127/68 127/68 119/64 O2 Sat by Pulse 100 100 100 Oximetry 04/29/22 04/29/22 04/29/22 23:00 23:16 23:24 Temperature Pulse Rate 84 86 83 Pulse Rate [ From Monitor] Respiratory 24 24 24 Rate Blood Pressure 119/64 123/66 123/66 O2 Sat by Pulse 100 100 100 Oximetry 04/29/22 04/29/22 04/30/22 23:30 23:46 00:00 Temperature Pulse Rate 88 88 87 Pulse Rate [ 87 From Monitor] Respiratory 24 24 24 Rate Blood Pressure 122/71 122/71 130/76 O2 Sat by Pulse 100 100 99 Oximetry 04/30/22 04/30/22 04/30/22 00:16 00:30 00:46 Temperature Pulse Rate 84 87 89 Pulse Rate [ From Monitor] Respiratory 24 24 24 Rate Blood Pressure 130/76 130/76 136/72 O2 Sat by Pulse 97 96 94 Oximetry 04/30/22 04/30/22 04/30/22 01:00 01:16 01:30 Temperature Pulse Rate 91 H 99 H 87 Pulse Rate [ From Monitor] Respiratory 24 18 21 Rate Blood Pressure 136/72 134/68 134/68 O2 Sat by Pulse 96 96 98 Oximetry 04/30/22 04/30/22 04/30/22 01:46 02:00 02:16 Temperature Pulse Rate 94 H 105 H 90 Pulse Rate [ From Monitor] Respiratory 24 26 H 23 Rate Blood Pressure 134/68 134/68 130/68 O2 Sat by Pulse 97 95 97 Oximetry 04/30/22 04/30/22 04/30/22 02:30 02:46 03:00 Temperature Pulse Rate 97 H 98 H 102 H Pulse Rate [ From Monitor] Respiratory 15 24 23 Rate Blood Pressure 130/68 129/66 129/66 O2 Sat by Pulse 97 97 98 Oximetry 04/30/22 04/30/22 04/30/22 03:16 03:30 03:46 Temperature Pulse Rate 86 84 89 Pulse Rate [ From Monitor] Respiratory 24 24 24 Rate Blood Pressure 129/66 129/66 115/61 O2 Sat by Pulse 98 98 99 Oximetry 04/30/22 04/30/22 04/30/22 04:00 04:16 04:30 Temperature 98.9 F Pulse Rate 87 89 84 Pulse Rate [ 86 From Monitor] Respiratory 24 24 24 Rate Blood Pressure 110/66 110/66 110/66 O2 Sat by Pulse 99 99 98 Oximetry 04/30/22 04/30/22 04/30/22 04:46 05:00 05:16 Temperature Pulse Rate 91 H 91 H 87 Pulse Rate [ From Monitor] Respiratory 24 24 24 Rate Blood Pressure 119/67 119/67 119/67 O2 Sat by Pulse 98 98 99 Oximetry 04/30/22 04/30/22 04/30/22 05:24 05:30 05:46 Temperature Pulse Rate 85 88 90 Pulse Rate [ From Monitor] Respiratory 24 24 Rate Blood Pressure 114/61 119/67 111/63 O2 Sat by Pulse 98 97 98 Oximetry 04/30/22 04/30/22 04/30/22 06:00 06:16 06:30 Temperature Pulse Rate 86 89 87 Pulse Rate [ From Monitor] Respiratory 24 24 24 Rate Blood Pressure 121/68 121/68 121/68 O2 Sat by Pulse 97 96 98 Oximetry 04/30/22 07:22 Temperature Pulse Rate 93 H Pulse Rate [ From Monitor] Respiratory Rate Blood Pressure 118/70 O2 Sat by Pulse 98 Oximetry - Lab 04/30/22 04:25 04/30/22 10:19 Most recent lab results ABG pH 7.514 pH Units (7.350-7.450) H 04/30/22 05:20 ABG pCO2 35.6 mm Hg 04/30/22 05:20 ABG pO2 73.4 mm Hg (80.0-90.0) L 04/30/22 05:20 ABG HCO3 28.1 mmol/L (20.0-26.0) H 04/30/22 05:20 ABG O2 Saturation 96.8 % (95.0-99.0) 04/30/22 05:20 Calcium 8.0 mg/dL (8.4-10.2) L 04/30/22 04:25 Phosphorus 2.50 mg/dL (2.5-4.5) D 0818/22 04:25 Magnesium 2.00 mg/dL (1.7-2.3) 04/30/22 04:25 Urine Creatinine 90.9 mg/dL (0.1-20.0) H 04/19/22 02:08 Urine Sodium 54 mmol/L 04/19/22 02:08 Medications & Allergies - Medications Allergies/Adverse Reactions: Allergies lisinopril Allergy (Verified 04/27/22 06:02) Angioedema Home Medications: Home Medications Medication Instructions Recorded Confirmed Last Taken Type AtorvaSTATin 40 mg PO QHS 04/22/22 04/22/22 Unknown History Humulin N 22 units SQ QHS 04/22/22 04/22/22 Unknown History amLODIPine 10 mg PO QAM 04/22/22 04/22/22 Unknown History glipiZIDE 20 mg PO BID 04/22/22 04/22/22 Unknown History metFORMIN 850 mg PO TID 04/22/22 04/22/22 Unknown History Active Medications: Generic Name Dose Route Start Last Admin Trade Name Freq PRN Reason Stop Dose Admin Acetaminophen 650 mg 04/17/22 19:48 04/28/22 21:38 Acetaminophen 325 Mg Tab PO 650 mg Q6H PRN Administration Pain MILD(1-3)/Fever >100.5/CHE Albuterol 2.5 mg 04/17/22 19:48 Albuterol 2.5 Mg/3 Ml Nebu IH Q3HRT PRN Shortness Of Breath Aspirin 81 mg 04/20/22 12:00 04/29/22 09:42 Aspirin 81 Mg Tab Chew FEEDTUBE 81 mg QDAY FLACO Administration Atorvastatin Calcium 20 mg 04/20/22 22:00 04/29/22 21:38 Atorvastatin 20 Mg Tab FEEDTUBE 20 mg QHS FLACO Administration Dexamethasone 8 mg 04/30/22 10:00 Dexamethasone 4 Mg/Ml Vial IV 05/09/22 10:01 DAILY FLACO Dextrose 0 ml 04/17/22 23:46 Dextrose 50% In Water (25gm) 50 Ml Syringe IV Q30MIN PRN Hypoglycemia Protocol Docusate Sodium 100 mg 04/27/22 11:00 04/29/22 21:38 Docusate Sodium 100 Mg/10 Ml Oral Liqd FEEDTUBE 100 mg BID FLACO Administration Famotidine 20 mg 04/27/22 10:00 04/29/22 21:38 Famotidine 20 Mg Tab FEEDTUBE 20 mg BID FLACO Administration Fentanyl 50 mcg 04/17/22 20:22 04/18/22 03:52 Fentanyl 100 Mcg/2 Ml Inj IV 50 mcg Q10MIN PRN Administration ANALGESIA Heparin Sodium (Porcine) 5,000 unit 04/21/22 22:00 04/29/22 21:38 Heparin 5,000 Unit/1 Ml Vial SUB-Q 5,000 unit Q12HR FLACO Administration Hydrophilic Ointment 1 applic 04/18/22 06:02 04/26/22 20:29 Lip Therapy Vaseline TP 1 applic Q2HR PRN Administration Dry Lips Fentanyl Citrate 2,000 mcg in 100 mls @ 5.443 mls/hr 04/17/22 21:00 04/28/22 21:40 Fentanyl Drip Premix IV 0 mcg/kg/hr TITR FLACO 0 mls/hr Titration Protocol 1 MCG/KG/HR Propofol 1,000 mg in 100 mls @ 3.456 mls/hr 04/18/22 07:00 04/30/22 04:45 Diprivan 10 Mg/Ml IV 15 mcg/kg/min TITR FLACO 10.368 mls/hr Administration Protocol 5 MCG/KG/MIN Cefepime HCl 2 gm in 100 mls @ 200 mls/hr 04/28/22 08:00 04/30/22 00:05 Cefepime/Ns 2 Gm/100 Ml IV 200 mls/hr Q8H FLACO Administration Protocol Vancomycin HCl 1,750 mg/ 535 mls @ 333.333 mls/hr 04/28/22 10:00 04/29/22 11:16 Sodium Chloride IV 333.333 mls/hr Q24H FLACO Administration Dexmedetomidine HCl 400 mcg/ 104 mls @ 5.99 mls/hr 04/28/22 11:00 04/28/22 1 3:52 Sodium Chloride IV 0 mcg/kg/hr TITRATE FLACO 0 mls/hr Titration Protocol 0.2 MCG/KG/HR NORepinephrine/NS 8 MG-250 ML 8 mg in 250 mls @ 3.75 mls/hr 04/28/22 15:00 04/29/22 04:39 Norepinephrine/Ns 8 Mg-250 Ml (Double Conc) IV 4 mcg/min TITRATE FLACO 7.5 mls/hr Titration Protocol 2 MCG/MIN Remdesivir 200 mg/ Sodium 250 mls @ 500 mls/hr 04/30/22 07:49 Chloride IV 04/30/22 08:18 ONCE ONE Remdesivir 100 mg/ Sodium 250 mls @ 500 mls/hr 05/01/22 14:00 Chloride IV 05/04/22 14:29 Q24HR@1400 [facility] Insulin Glargine 25 units 04/29/22 11:00 04/29/22 21:38 Insulin Glargine 100 Units/Ml SUB-Q 25 units BID FLACO Administration Insulin Human Lispro 0 unit 04/18/22 00:00 04/30/22 05:51 Insulin Lispro 100 Unit/Ml SUB-Q Not Given Q6HR [facility] Protocol Insulin Human Lispro 10 unit 04/29/22 12:00 04/30/22 05:51 Insulin Lispro 100 Unit/Ml SUB-Q Not Given Q6HR [facility] Multi-Ingred Cream/Lotion/Oil/Oint 1 applic 04/18/22 06:02 Mineral Oil/Petrolatum, White Ophth Oint 3.5 Gm OU Q4HR PRN Dry Eye(s) Oxycodone/Acetaminophen 1 tab 04/22/22 11:05 Oxycodone /Acetaminophen 5-325mg Tab FEEDTUBE Q6H PRN Pain, Moderate (4-6) Potassium Chloride 40 meq 04/30/22 10:00 Potassium Chloride 20 Meq Packet FEEDTUBE 04/30/22 14:00 ONCE FLACO Senna/Docusate Sodium 2 tab 04/28/22 10:00 04/29/22 21:38 Sennosides/Docusate Sodium 8.6/50 Mg Tab FEEDTUBE 2 tab BID FLACO Administration Sodium Chloride 10 ml 04/17/22 22:00 04/29/22 21:38 Sodium Chloride 0.9% 10 Ml Flush Syringe IV 10 ml BID FLACO Administration Sodium Chloride 10 ml 04/17/22 19:48 Sodium Chloride 0.9% 10 Ml Flush Syringe IV PRN PRN LINE FLUSH Sodium Chloride 50 ml 04/30/22 14:00 Sodium Chloride 0.9% 50 Ml Ivpb IV 05/04/22 14:01 Q24HR@1400 [facility]
[2022-04-30] MEDS ORDERED: REMDESIVIR 200 MG in SODIUM CHLORIDE 0.9% 250ML 250 ML IV SCH (09:00)
[2022-04-30] MEDS: DOCUSATE SODIUM 100 MG/10 ML ORAL LIQD FEEDTUBE SCH ×2 (09:53→22:40)
[2022-04-30] MEDS: dexAMETHasone 4 MG/ML VIAL IV SCH (09:54)
[2022-04-30] MEDS: HEPARIN 5,000 UNIT/1 ML VIAL SUB-Q SCH ×2 (09:54→22:39)
[2022-04-30] MEDS: VANCOMYCIN 1,750 MG in SODIUM CHLORIDE 0.9% 500 ML 500 ML IV SCH (09:54)
[2022-04-30] MEDS: SENNOSIDES/DOCUSATE SODIUM 8.6/50 MG TAB FEEDTUBE SCH ×2 (09:54→22:39)
[2022-04-30] MEDS: ASPIRIN 81 MG TAB CHEW FEEDTUBE SCH (09:54)
[2022-04-30] MEDS: FAMOTIDINE 20 MG TAB FEEDTUBE SCH ×2 (09:54→22:40)
[2022-04-30] MEDS: SODIUM CHLORIDE 0.9% 50 ML IVPB IV SCH (09:55)
[2022-04-30] MEDS: INSULIN GLARGINE 100 UNITS/ML SUB-Q SCH ×2 (09:59→22:40)
[2022-04-30] MEDS ORDERED: POTASSIUM CHLORIDE 20 MEQ PACKET FEEDTUBE SCH ×2 (10:00→22:00)
--- NOTE | 2022-04-30 10:41 | Progress Note ---
Assessment and Plan Assessment and plan: This is a 61-year-old male with known past medical history of obsesity, DM, HTN, and Atrial fibrillation s/p cardioversion over 12hrs ago, unclear if patient was on AC at home admitted s/p outside of the hospital cardiac arrest/V-fib arrest with ROSC. Hospital Course to Date: 04/18: Severely acidotic this am, now on bcarb gtt. On high dose pressors- Levophed and Vaso. Afib in control rate on the monitor, on Amiodarone and heparin gtt per protocol. Cardiology is following. Patient remains afebrile and leukocytosis improved this am. Now with worsen renal function and low UOP. Patient's EF is 25 to 30%, Dobutamine gtt initiated. Continue current IV abx, continue to trend troponin and lactic acid. Nephrology also consulted for further recs. BLE swelling noted, BLE doppler ordered to r/o DVT. 04/19: Agitation with low SPO2 overnight, sedation increased. This am ABG with wo rsen hypoxia on 40% Fio2, SPO2 at 90% this am. Fio2 increased to 50%, SPO2 improved above 92%. Remains on multiple pressors and bcarb gtt. Now on dopamine gtt, in Afib with RVR on the monitor. Still on Amiodarone and heparin gtts. Echo noted, EF 15 to 20%. Cardiology is following. With worsen renal function, however making urine this am. No indication for [employer] at this per Nephro. Will continue to monitor. Monitor and replace electrolytes as needed 04/20: Nephrology spoke to at bedside re HD, cardiology will proceed with C if patient is to recieve HD post procedure, vent changes per [facility], Sedated with fentanyl and propofol with heparin and amio gtt infusing. 04/21: LHC today. Nephrology will continue IVF and if renal function worsens then will proceed HD with consent from family. Patient became hypoxic with FiO2 at 40% yesterday evening and is currently at 65%. 04/22: Patient was started on vasopressin IV fluids yesterday and his creatinine decreased from 4.2 to 2.9. Patient severely agitated while on propofol and fentanyl. Started low-dose Seroquel and started to wean propofol as tolerated. Patient does follow commands today. Increase in lantus. IV fluids decreased, started on dobutamine per [facility] and wean vasopressin for target MAP of 65-70 and SBP greater than 110 04/23: This morning patient being extremely hypertensive with SBP into 200s and given metoprolol. Rn asked to wean propofol as tolerated. Dobutamine decreased to 2.5. Cr improved. US chest completed and showed no pleural effusions. This afternoon alerted by RN that RT believes pt bite through his tube and anesthesia was called to bedside for tube exchange. Decision was made to extubate and reintubate the patient. CXR ordered. 04/24: Patient placed on CPAP trial. Renal numbers look better today. C ardiology would like to try digoxin. No acute events reported overnight. 04/25: Patient now with hypernatremia, slightly increased renal function today but still putting out over 1 L urine over the past 24 hours. Will increase free water flushes and repleate potassium cautiously. Cardilogy will like to continue current management. PSV when able 04/26: Cardiology will increase amiodarone due to heart rate being in the 110s to 120s and will hold off digoxin, remains on dobutamine drip. Hypernatremia improving. Remains on D5 W per nephrology. PSV this AM. Rash noted to trunk, arms, chest. RN to hold off Seroquel. Started on IV Benadryl. Already n.p.o. famotidine. Updated [place] physician who also informed me that the patient is allergic to lisinopril (angioedema) 04/27: Tolerating PSV trail this am on low dose sedation. Per [facility], plan to wean vent setting for possible extubation. If patient requires higher dose of sedation, will add precedex gtt for trial to wean off sedation. Patient with low grade fevers with worsening leukopcytosis, B.cultures from yesterday with NGTD. Will do a lines vacations, D/C CVC and penn. Patient is hemodynamically stable, will continue to monitor for now. Patient is also net positive balance since admit, hypernatremia resolved, and renal function improved, will decrease IVF for now. Nephrology is also following. 04/28: Self-extubated this afternoon, requiring emergent reintubation. Flash pulmonary edema noted during intubation, X1 dose of IV lasix administered. Currently hypertensive and Afib with RVR, HR in the 110-130s, sedations resumed. Persistent fevers overnight with leukocytosis, repeat blood culture with no growth. Orders placed for UA and repeat sputum culture. Empiric IV Abx, Cefepine and vanc initiated. ID was also consulted. Continue vent wean/adjustment per CCM. Penn was reinserted overnight due to retention, will reassess in the next 24hrs to 48hrs. 04/29: Remains stable on the vent, this am CXR and ABG with significant improvement. On low dose pressors this am, MAP in the 70s, titrate pressor to maintain MAP in the 70s. Still with persistent fevers despite current IV abx, repeat cultures with NGTD. Orders placed for COVID and Flu PCR.. Worsen LFTs this am, d/w Cardio will D/C PO amio, X2 dose of IV digoxin for rate control. Renal function stable, patient responded well to IV lasix, over 5L out in last 24hrs. Will hold off on diurese today per Nephro, will reassess in the am. Insulin regimen adjusted for hyperglycemia. 04/30: Stable on low vent settings this am. Off pressors, fevers and leukocytosis improved. COVID PCR came back positive, IV steroids initiated. And ID recommendations noted- continue Cefepine and Vanc, Redemsevir added. Remains with transaminitis, abdominal US pending. Patient remains in Afib control, tolerated IV dig. Plan for daily PO dig per Cardiology. Renal function is stable, X1 dose of IV lasix today. K repleted, continue to monitor and replace electrolytes as needed. Assessment and Plan #Cardiogenic Shock #S/p Cardiac Arrest/V-Fib Arrest with ROSC #NSTEMI #H/o Atrial Fibrillation, HTN - Found in the bathroom unresponsive [place]. - EMS found patient in V-Fib arrest treated per ACLS ROSC achieved - Positive troponinX3, EKG with no significant ST changes - s/p Dopamine and Dobutamine gtts - Afib control on the monitor, HR 90-100d - 2D echo reviewed. EF 15 to 20% - [facility] severe nonischemic cardiomyopathy with patent coronary arteries, which per cardiology presumably resulted in a primary cardiac arrest. - PO Amio held due to worsen LFts - S/p X2 dose IV dig, now on daily PO Dig per Cardio - Continue blood pressure monitor per protocol - Maintain MAP above 65 and SBP less than 160 #Acute Hypoxemic Respiratory Failure - Intubated in the filed during code on 04/17 - [id number] this afternoon, requiring emergent reintubation - Flash pulmonary edema noted during reintubation X1 dose of IV lasix - Vent setting: PRBC-30%,6,24,500 - CCM consulted, appreciate recommendations - Continue vent adjustement per CCM - VAP bundle addressed - Aspiration precaution HOB above 30 - Daily SBT and SAT trials as tolerated - Daily ABG and CXR - Continue SPO2 monitoring for SPO2 goal above 92% - Per CCM, plan to wean vent setting for possible extubation. #Acute Metabolic Encephalopathy-improved #Agitation-improved #Face Contusion s/p Fall-improved - Found in the bathroom unresponsive [place]. Most likely fell and hit his head - CT head reviewed, no acute intracranial abnormality - While awake on sedations, on low dose propofol - If patient requires higher dose of sedation, will add precedex gtt for trial to wean off sedation. - Daily SAT and SBT per [facility] - Avoid benzodiazepine to reduce the possibility of delirium - PRN Analgesia CPOT greater than 3 - Maintenance of sleep-wake cycle #Acute Kidney Injury(VINCENT) most likely ATN #Hypernatremia-improved #Hypekalemia-resolved - secondary to above. hypoperfusion/hypotension - Patient also received IV contrast - Baseline renal function is unknown - Hypernatremia and renal function improved - Nephrology on consult, appreciated recommendation - S/p X1 dose of IV lasix, flash pulmonary edema noted during intubation - Strict intake and output - Avoid nephrotoxic medications; Renally dose medications - Penn in place with great UOP over 5L in last 24hrs - Monitor and replace electrolytes as needed - Continue FWF #Sepsis #Bilateral Pneumonia #COVID 19 Infection #Severe Metabolic Acidosis-resolved - Initial Imaging reveals bilateral airspace disease, greater in the Upper lobes. Most likely aspiration - Fevers and leukocytosis improved - UA with elevated WBCs - Blood culture with NGTD, Sputum pending - Flu PCR negative, COVID PCR positive - IV Steroids initiated - ID consulted, appreciate recommendations - Continue Cefepine and Vanc, Redemsevir added. - F/U on cultures - Daily CBC monitor #Transaminitis #Shock Liver-improved - most likely reactive from above/hypoperfusion - LFT improved post cardiac event - LFTs trending back up this am, PO amio held - Abdominal US pending - Trend LFTs #Elevated D-Dimer - CTA chest with no evidence of PE - With BLE swelling- BLE doppler pending - On Heparin #Type 2 Diabetes Mellitus - BG check and SSI Q6hrs - Lantus BID - Avoid hypoglycemia #GI/DVT Prophylaxis - PPI- Pepcid - Heparin SubQ - SCDs to bilateral lower extremities while in bed #Advance Care Planning - Disease education data, care plan, diagnoses, and prognosis were discussed with patient's at the bedside. Patient is a FULL code. Patient's acknowledged understanding and agreed with current care plan. The high probability of a clinically significant, sudden or life threatening deterioration of the [multiple] system(s) required my full and direct attention, intervention and personal management. The aggregate critical care time was [60] minutes. This time is in addition to time spent performing reported procedures but includes the following: [x] Data Review and interpretation [x] Patient assessment and monitoring of vital signs [x] Documentation [x] Medication orders and management Disposition Plan: ICU Total Time Spent with Patient (Minutes): 60 History Interval history: Patient seen and examined at the bedside. Stable on the event, while awake on low dose propofol gtt. Fevers improved, off pressors this am. Afib in control rate on the monitor. VSS. GERONIMO overnight Hospitalist Physical - Physical exam Narrative exam: General appearance: Present: no acute distress, other (Intubated, while awake on sedation) - EENT Eyes: Present: PERRL - Neck Neck: Present: normal ROM - Respiratory Respiratory effort: labored Respiratory: bilateral: rhonchi - Cardiovascular Rhythm: irregularly irregular Heart Sounds: Present: S1 & S2 - Extremities Extremities: no ischemia, pulses intact, pulses symmetrical Extremity abnormal: edema - Peripheral Assessment Bilateral Upper Extremity Edema Type: Pitting Edema Degree: 3+ Capillary Refill: < 3 seconds Skin Temperature: Warm Generalized Edema Type: Pitting Edema Degree: 2+ Capillary Refill: < 3 seconds Skin Temperature: Warm Peripheral Pulses: within normal limits - Abdominal General gastrointestinal: soft, non-distended, normal bowel sounds - Integumentary Integumentary: Present: warm, dry - Psychiatric Psychiatric: other (Intubated, while awake on sedation) - Neurologic Neurologic: other (Intubated, while awake on sedation) - Allied Health Allied health notes reviewed: nursing, case management - Constitutional Vitals: Temp Pulse Resp BP Pulse Ox 98.9 F 89 25 H 129/65 98 04/30/22 04:00 04/30/22 09:00 04/30/22 09:00 04/30/22 09:00 04/30/22 09:00 HEART Score - HEART Score Troponin: Troponin T 2.980 ng/mL (0.00-0.029) H* 04/19/22 07:11 Results - Labs CBC & Chem 7: 04/30/22 04:25 04/30/22 10:19 Labs: Laboratory Last Values WBC 13.3 K/mm3 (4.5-11.0) H 04/30/22 04:25 RBC 2.81 M/mm3 (3.65-5.03) L 04/30/22 04:25 Hgb 8.0 gm/dl (11.8-15.2) L 04/30/22 04:25 Hct 24.4 % (35.5-45.6) L 04/30/22 04:25 MCV 87 fl (84-94) 04/30/22 04:25 MCH 28 pg (28-32) 04/30/22 04:25 MCHC 33 % (32-34) 04/30/22 04:25 RDW 15.2 % (13.2-15.2) 04/30/22 04:25 Plt Count 441 K/mm3 (140-440) H 04/30/22 04:25 Lymph % (Auto) 5.7 % (13.4-35.0) L 04/29/22 04:20 Early % (Auto) 7.8 % (0.0-7.3) H 04/29/22 04:20 Eos % (Auto) 3.9 % (0.0-4.3) 04/29/22 04:20 Baso % (Auto) 0.6 % (0.0-1.8) 04/29/22 04:20 Lymph # (Auto) 1.1 K/mm3 (1.2-5.4) L 04/29/22 04:20 Early # (Auto) 1.5 K/mm3 (0.0-0.8) H 04/29/22 04:20 Eos # (Auto) 0.8 K/mm3 (0.0-0.4) H 04/29/22 04:20 Baso # (Auto) 0.1 K/mm3 (0.0-0.1) 04/29/22 04:20 Add Manual Diff Complete 04/23/22 04:19 Total Counted 100 04/23/22 04:19 Seg Neutrophils % 82.0 % (40.0-70.0) H 04/29/22 04:20 Seg Neuts % (Manual) 74.0 % (40.0-70.0) H 04/23/22 04:19 Band Neutrophils % 2.0 % 04/23/22 04:19 Lymphocytes % (Manual) 10.0 % (13.4-35.0) L 04/23/22 04:19 Reactive Lymphs % (Man) 0 % 04/23/22 04:19 Monocytes % (Manual) 7.0 % (0.0-7.3) 04/23/22 04:19 Eosinophils % (Manual) 7.0 % (0.0-4.3) H 04/23/22 04:19 Basophils % (Manual) 0 % (0.0-1.8) 04/23/22 04:19 Metamyelocytes % 0 % 04/23/22 04:19 Myelocytes % 0 % 04/23/22 04:19 Promyelocytes % 0 % 04/23/22 04:19 Blast Cells % 0 % 04/23/22 04:19 Nucleated RBC % Not Reportable 04/23/22 04:19 Seg Neutrophils # 16.3 K/mm3 (1.8-7.7) H 04/29/22 04:20 Seg Neutrophils # Man 8.0 K/mm3 (1.8-7.7) H 04/23/22 04:19 Band Neutrophils # 0.2 K/mm3 04/23/22 04:19 Lymphocytes # (Manual) 1.1 K/mm3 (1.2-5.4) L 04/23/22 04:19 Abs React Lymphs (Man) 0.0 K/mm3 04/23/22 04:19 Monocytes # (Manual) 0.8 K/mm3 (0.0-0.8) 04/23/22 04:19 Eosinophils # (Manual) 0.8 K/mm3 (0.0-0.4) H 04/23/22 04:19 Basophils # (Manual) 0.0 K/mm3 (0.0-0.1) 04/23/22 04:19 Metamyelocytes # 0.0 K/mm3 04/23/22 04:19 Myelocytes # 0.0 K/mm3 04/23/22 04:19 Promyelocytes # 0.0 K/mm3 04/23/22 04:19 Blast Cells # 0.0 K/mm3 04/23/22 04:19 WBC Morphology Not Reportable 04/23/22 04:19 Hypersegmented Neuts Not Reportable 04/23/22 04:19 Hyposegmented Neuts Not Reportable 04/23/22 04:19 Hypogranular Neuts Not Reportable 04/23/22 04:19 Smudge Cells Not Reportable 04/23/22 04:19 Toxic Granulation Not Reportable 04/23/22 04:19 Toxic Vacuolation Not Reportable 04/23/22 04:19 Dohle Bodies Not Reportable 04/23/22 04:19 Pelger-Huet Anomaly Not Reportable 04/23/22 04:19 Regla Rods Not Reportable 04/23/22 04:19 Platelet Estimate Consistent w auto 04/23/22 04:19 Clumped Platelets Not Reportable 04/23/22 04:19 Plt Clumps, EDTA Not Reportable 04/23/22 04:19 Large Platelets Not Reportable 04/23/22 04:19 Giant Platelets Not Reportable 04/23/22 04:19 Platelet Satelliting Not Reportable 04/23/22 04:19 Plt Morphology Comment Not Reportable 04/23/22 04:19 RBC Morphology Not Reportable 04/23/22 04:19 Dimorphic RBCs Not Reportable 04/23/22 04:19 Polychromasia Not Reportable 04/23/22 04:19 Hypochromasia Not Reportable 04/23/22 04:19 Poikilocytosis Not Reportable 04/23/22 04:19 Anisocytosis Not Reportable 04/23/22 04:19 Microcytosis Not Reportable 04/23/22 04:19 Macrocytosis Not Reportable 04/23/22 04:19 Spherocytes Not Reportable 04/23/22 04:19 Pappenheimer Bodies Not Reportable 04/23/22 04:19 Sickle Cells Not Reportable 04/23/22 04:19 Target Cells Not Reportable 04/23/22 04:19 Tear Drop Cells Not Reportable 04/23/22 04:19 Ovalocytes Not Reportable 04/23/22 04:19 Helmet Cells Not Reportable 04/23/22 04:19 [place] Bodies Not Reportable 04/23/22 04:19 [place] Rings Not Reportable 04/23/22 04:19 [place] Cells Not Reportable 04/23/22 04:19 Bite Cells Not Reportable 04/23/22 04:19 Crenated Cell Not Reportable 04/23/22 04:19 Elliptocytes Not Reportable 04/23/22 04:19 Acanthocytes (Spur) Not Reportable 04/23/22 04:19 Rouleaux Not Reportable 04/23/22 04:19 Hemoglobin C Crystals Not Reportable 04/23/22 04:19 Schistocytes Not Reportable 04/23/22 04:19 Malaria parasites Not Reportable 04/23/22 04:19 [place] Bodies Not Reportable 04/23/22 04:19 Hem Pathologist Commnt No 04/23/22 04:19 PT 15.6 Sec. (12.2-14.9) H 04/18/22 Unknown INR 1.08 (0.87-1.13) 04/18/22 Unknown APTT 28.6 Sec. (24.2-36.6) 04/18/22 Unknown Activated Coag Time 179 (74-137) H 04/21/22 12:14 Heparin Anti-Xa Level 0.16 U.I./ml (0.3-0.7) L 04/21/22 04:00 ABG pH 7.514 pH Units (7.350-7.450) H 04/30/22 05:20 ABG pCO2 35.6 mm Hg 04/30/22 05:20 ABG pO2 73.4 mm Hg (80.0-90.0) L 04/30/22 05:20 ABG HCO3 28.1 mmol/L (20.0-26.0) H 04/30/22 05:20 ABG O2 Saturation 96.8 % (95.0-99.0) 04/30/22 05:20 ABG O2 Content 10.5 (0.0-44) 04/30/22 05:20 ABG Base Excess 4.8 mmol/L (-2.0-3.0) H 04/30/22 05:20 ABG Hemoglobin 7.8 gm/dl (14.0-18.0) L 04/30/22 05:20 ABG Carboxyhemoglobin 1.4 % (0.0-5.0) 04/30/22 05:20 ABG Methemoglobin 0.6 % (0.0-1.5) 04/30/22 05:20 Oxyhemoglobin 94.9 % (95.0-99.0) L 04/30/22 05:20 FiO2 30 % 04/30/22 05:20 Sodium 145 mmol/L (137-145) 04/30/22 04:25 Potassium 3.2 mmol/L (3.6-5.0) L 04/30/22 04:25 Chloride 106.5 mmol/L (98-107) 04/30/22 04:25 Carbon Dioxide 27 mmol/L (22-30) 04/30/22 04:25 Anion Gap 15 mmol/L 04/30/22 04:25 BUN 26 mg/dL (9-20) H 04/30/22 04:25 Creatinine 1.5 mg/dL (0.8-1.3) H 04/30/22 04:25 Estimated GFR 57 ml/min 04/30/22 04:25 BUN/Creatinine Ratio 17 % 04/30/22 04:25 Glucose 105 mg/dL (75-100) H 04/30/22 04:25 POC Glucose 135 mg/dL (70-105) H 04/29/22 23:58 Lactic Acid 1.90 mmol/L (0.7-2.0) 04/21/22 04:20 Calcium 8.0 mg/dL (8.4-10.2) L 04/30/22 04:25 Phosphorus 2.50 mg/dL (2.5-4.5) D 04/30/22 04:25 Magnesium 2.00 mg/dL (1.7-2.3) 04/30/22 04:25 Total Bilirubin 0.40 mg/dL (0.1-1.2) 04/30/22 04:25 Direct Bilirubin 0.3 mg/dL (0-0.2) H 04/30/22 04:25 Indirect Bilirubin 0.1 mg/dL 04/30/22 04:25 AST 138 units/L (5-40) H 04/30/22 04:25 ALT 94 units/L (7-56) H 04/30/22 04:25 Alkaline Phosphatase 172 units/L (35-129) H 04/30/22 04:25 Total Creatine Kinase 61 units/L (55-170) 04/29/22 04:20 CK-MB (CK-2) 28.5 ng/mL (0.0-4.0) H 04/19/22 07:11 CK-MB (CK-2) Rel Index 0.8 (0-4) 04/19/22 07:11 Troponin T 2.980 ng/mL (0.00-0.029) H* 04/19/22 07:11 C-Reactive Protein 15.30 mg/dL (0.00-1.30) H 04/28/22 08:20 Total Protein 5.5 g/dL (6.3-8.2) L 04/30/22 04:25 Albumin 2.0 g/dL (3.9-5) L 04/30/22 04:25 Albumin/Globulin Ratio 0.6 % 04/30/22 04:25 Triglycerides 99 mg/dL (2-149) 04/28/22 05:28 Cholesterol 106 mg/dL (50-199) 04/17/22 19:56 LDL Cholesterol Direct 57 mg/dL (50-130) 04/17/22 19:56 HDL Cholesterol 40 mg/dL (40-59) 04/17/22 19:56 Cholesterol/HDL Ratio 2.65 % 04/17/22 19:56 Procalcitonin 2.90 ng/mL (<0.15) 04/28/22 Unknown Urine Color Straw (Yellow) 04/28/22 08:35 Urine Turbidity Clear (Clear) 04/28/22 08:35 Urine pH 6.0 (5.0-7.0) 04/28/22 08:35 Ur Specific Fields 1.000 (1.003-1.030) L 04/28/22 08:35 Urine Protein 300 mg/dl mg/dL (Negative) 04/28/22 08:35 Urine Glucose (UA) Negative mg/dL (Negative) 04/28/22 08:35 Urine Ketones Negative mg/dL (Negative) 04/28/22 08:35 Urine Blood 3+ (Negative) 04/28/22 08:35 Urine Nitrite Negative (Negative) 04/28/22 08:35 Ur Reducing Substances Not Reportable 04/28/22 08:35 Urine Bilirubin Negative (Negative) 04/28/22 08:35 Urine Ictotest Not Reportable 04/28/22 08:35 Urine Urobilinogen < 2.0 mg/dL (<2.0) 04/28/22 08:35 Ur Leukocyte Esterase Small (Negative) 04/28/22 08:35 Urine WBC (Auto) 21.0 /HPF (0.0-6.0) H 04/28/22 08:35 Urine RBC (Auto) 9.0 /HPF (0.0-6.0) 04/28/22 08:35 Urine Bacteria (Auto) 2+ /HPF (Negative) 04/19/22 02:08 Urine WBC Clumps 3+ /HPF 04/19/22 02:08 RBC Casts 34 /LPF 04/19/22 02:08 Urine Mucus Few /HPF 04/28/22 08:35 Urine Yeast (Budding) 3+ /HPF 04/19/22 02:08 Urine Eosinophils None seen (None Seen) 04/19/22 02:08 Urine Creatinine 90.9 mg/dL (0.1-20.0) H 04/19/22 02:08 Urine Sodium 54 mmol/L 04/19/22 02:08 Digoxin 0.6 ng/mL (0.9-2.0) L 04/30/22 04:25 Coronavirus (PCR) Positive (Negative) A 04/29/22 09:38 Influenza A (RT-PCR) Negative (Negative) 04/29/22 11:44 Influenza B (RT-PCR) Negative (Negative) 04/29/22 11:44 Blood Type A POSITIVE 04/21/22 04:37 Antibody Screen Negative 04/21/22 04:37 Microbiology: Microbiology 04/28/22 08:35 Urine,Clean Catch Urine Culture - Final NO GROWTH AFTER 48 HOURS 04/26/22 05:20 Peripheral/Venous Blood Culture - Preliminary NO GROWTH AFTER 4 DAYS 04/28/22 07:26 Tracheal Aspirate Sputum Culture - Preliminary 04/26/22 08:57 Peripheral/Venous Blood Culture - Preliminary NO GROWTH AFTER 72 HOURS Penn/IV: Voiding Method Indwelling Catheter Active Medications - Current Medications Current Medications: Generic Name Dose Route Start Last Admin Trade Name Freq PRN Reason Stop Dose Admin Acetaminophen 650 mg 04/17/22 19:48 04/28/22 21:38 Acetaminophen 325 Mg Tab PO 650 mg Q6H PRN Administration Pain MILD(1-3)/Fever >100.5/CHE Albuterol 2.5 mg 04/17/22 19:48 Albuterol 2.5 Mg/3 Ml Nebu IH Q3HRT PRN Shortness Of Breath Aspirin 81 mg 04/20/22 12:00 04/30/22 09:54 Aspirin 81 Mg Tab Chew FEEDTUBE 81 mg QDAY FLACO Administration Atorvastatin Calcium 20 mg 04/20/22 22:00 04/29/22 21:38 Atorvastatin 20 Mg Tab FEEDTUBE 20 mg QHS FLACO Administration Dexamethasone 8 mg 04/30/22 10:00 04/30/22 09:54 Dexamethasone 4 Mg/Ml Vial IV 05/09/22 10:01 8 mg DAILY FLACO Administration Dextrose 0 ml 04/17/22 23:46 Dextrose 50% In Water (25gm) 50 Ml Syringe IV Q30MIN PRN Hypoglycemia Protocol Docusate Sodium 100 mg 04/27/22 11:00 04/30/22 09:53 Docusate Sodium 100 Mg/10 Ml Oral Liqd FEEDTUBE 100 mg BID FLACO Administration Famotidine 20 mg 04/27/22 10:00 04/30/22 09:54 Famotidine 20 Mg Tab FEEDTUBE 20 mg BID FLACO Administration Fentanyl 50 mcg 04/17/22 20:22 04/18/22 03:52 Fentanyl 100 Mcg/2 Ml Inj IV 50 mcg Q10MIN PRN Administration ANALGESIA Heparin Sodium (Porcine) 5,000 unit 04/21/22 22:00 04/30/22 09:54 Heparin 5,000 Unit/1 Ml Vial SUB-Q 5,000 unit Q12HR FLACO Administration Hydrophilic Ointment 1 applic 04/18/22 06:02 04/26/22 20:29 Lip Therapy Vaseline TP 1 applic Q2HR PRN Administration Dry Lips Fentanyl Citrate 2,000 mcg in 100 mls @ 5.443 mls/hr 04/17/22 21:00 04/28/22 21:40 Fentanyl Drip Premix IV 0 mcg/kg/hr TITR FLACO 0 mls/hr Titration Protocol 1 MCG/KG/HR Propofol 1,000 mg in 100 mls @ 3.456 mls/hr 04/18/22 07:00 04/30/22 04:45 Diprivan 10 Mg/Ml IV 15 mcg/kg/min TITR FLACO 10.368 mls/hr Administration Protocol 5 MCG/KG/MIN Cefepime HCl 2 gm in 100 mls @ 200 mls/hr 04/28/22 08:00 04/30/22 00:05 Cefepime/Ns 2 Gm/100 Ml IV 200 mls/hr Q8H FLACO Administration Protocol Vancomycin HCl 1,750 mg/ 535 mls @ 333.333 mls/hr 04/28/22 10:00 04/30/22 09:54 Sodium Chloride IV 333.333 mls/hr Q24H FLACO Administration Dexmedetomidine HCl 400 mcg/ 104 mls @ 5.99 mls/hr 04/28/22 11:00 04/28/22 13:52 Sodium Chloride IV 0 mcg/kg/hr TITRATE FLACO 0 mls/hr Titration Protocol 0.2 MCG/KG/HR NORepinephrine/NS 8 MG-250 ML 8 mg in 250 mls @ 3.75 mls/hr 04/28/22 15:00 04/29/22 04:39 Norepinephrine/Ns 8 Mg-250 Ml (Double Conc) IV 4 mcg/min TITRATE FLACO 7.5 mls/hr Titration Protocol 2 MCG/MIN Remdesivir 200 mg/ Sodium 250 mls @ 500 mls/hr 04/30/22 09:00 04/30/22 09:57 Chloride IV 04/30/22 12:00 500 mls/hr ONCE@0900 [facility] Administration Remdesivir 100 mg/ Sodium 250 mls @ 500 mls/hr 05/01/22 14:00 Chloride IV 05/04/22 14:29 Q24HR@1400 [facility] Insulin Glargine 25 units 04/29/22 11:00 04/30/22 09:59 Insulin Glargine 100 Units/Ml SUB-Q Not Given BID [facility] Insulin Human Lispro 0 unit 04/18/22 00:00 04/30/22 05:51 Insulin Lispro 100 Unit/Ml SUB-Q Not Given Q6HR [facility] Protocol Insulin Human Lispro 10 unit 04/29/22 12:00 04/30/22 05:51 Insulin Lispro 100 Unit/Ml SUB-Q Not Given Q6HR FLACO Multi-Ingred Cream/Lotion/Oil/Oint 1 applic 04/18/22 06:02 Mineral Oil/Petrolatum, White Ophth Oint 3.5 Gm OU Q4HR PRN Dry Eye(s) Oxycodone/Acetaminophen 1 tab 04/22/22 11:05 Oxycodone /Acetaminophen 5-325mg Tab FEEDTUBE Q6H PRN Pain, Moderate (4-6) Potassium Chloride 40 meq 04/30/22 10:00 04/30/22 09:53 Potassium Chloride 20 Meq Packet FEEDTUBE 04/30/22 14:00 40 meq ONCE FLACO Administration Senna/Docusate Sodium 2 tab 04/28/22 10:00 04/30/22 09:54 Sennosides/Docusate Sodium 8.6/50 Mg Tab FEEDTUBE 2 tab BID FLACO Administration Sodium Chloride 10 ml 04/17/22 22:00 04/30/22 09:59 Sodium Chloride 0.9% 10 Ml Flush Syringe IV 10 ml BID FLACO Administration Sodium Chloride 10 ml 04/17/22 19:48 Sodium Chloride 0.9% 10 Ml Flush Syringe IV PRN PRN LINE FLUSH Sodium Chloride 50 ml 04/30/22 09:00 04/30/22 09:55 Sodium Chloride 0.9% 50 Ml Ivpb IV 05/04/22 14:01 50 ml Q24HR@1400 FLACO Administration Nutrition/Malnutrition Assess - Dietary Evaluation Nutrition/Malnutrition Findings: Nutrition Notes Start: 04/18/22 08:52 Freq: Status: Active Protocol: Document 04/29/22 11:29 ROMELIA (Rec: 04/29/22 11:55 ROMELIA [id number]) Nutrition Notes Initial or Follow up Reassessment Current Diagnosis Acute Kidney Injury,Diabetes, Sepsis,Hypertension, Respiratory Failure Other Pertinent Diagnosis s/p PEA w/ROSC, HFrEF, Pneumonia, Transaminitis, Rabdomyolisis, .. Current Diet TF-Nepro w/CARBSTEADY @ 35 ml/ hr (from D 04/21). Labs/Tests 04/29: BUN 30, Crea 1.6, Glu 236, Ca 8.1. Pertinent Medications 08/17: Humalog 4U, Propofol @ 3.456 ml/hr (91 Kcal), mothers nutritionally unremarkable. Height 5 ft 9 in Weight 115.2 kg [place] Body Weight (kg) 72.72 BMI 37.5 Weight change and time frame No body weight change reported in 11 days. Weight Status Obese Subjective/Other Information RD consult for routine F/U on TF tolerance/continuation assessment. TF continues as prescribed, no further information available at the time. Pt continues on Mechanical Ventilation, O2 saturation @ 100%, according to Physical Assessment History notes. Pt remains incontinent, according to Physical Assessment History notes. Pt presents blisters on the groin and on hand, according to Physical Assessment History notes. Percent of energy/protein needs met: Prescribed TF-Nepro w/ CARBSTEADY @ 35 ml/hr provides for energy/protein needs (1, 500 Kcal/68 g) during LOS, 77% Kcal; 90% AA. Including 91 Kcal from Propofol: 81% Kcal; 90% AA. Burn Absent Trauma Absent GI Symptoms None Food Allergy No Skin Integrity/Comment Blisters on the groin and on hand. 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 Yes Is Patient Ambulatory and/or Out of Bed No REE-([facility]-confined to bed) 2323.608 Kcal/Kg value to use for calculation 17 Approximate Energy Requirements Using 1958 kcal/Kg Calculation Used for Recommendations Kcal/kg Additional Notes Protein: 0.8-1.2 g/Kg AdjBW; 75-113 g/day. Fluids: 1 ml/Kcal, or as per MD. Nutrition Intervention Nutrition Support: Continue TF-Nepro w/CARBSTEADY @ 35 ml/hr. Flush: 220 ml water Q 4 hr, or as per MD. Kcal 1,500 Protein (gm) 68 Carbohydrates (gm) 134 Fat (gm) 80 Fluid (mL) 606 Fiber (gm) 11 % RDI: 77% Kcal; 90% AA. Goal #1 Provide at least 75% of energy /protein needs through Enteral Feeding during LOS. Follow-Up By: 05/06/22 Additional Comments Continue monitoring TF tolerance, ventilation status, vasopressors, and BM.
--- NOTE | 2022-04-30 10:48 | Progress Note ---
Assessment and Plan It will be recalled that he presented to [facility] emergency clinic with chest pain, and during his evaluation there, suffered an acute cardiopulmonary arrest prompting his transfer to the emergency room at [facility]. Ventricular fibrillation was reported, although no strips available for review. EKG on presentation here was a rapid atrial fibrillation with some nonspecific ST segment changes which have since resolved. Echocardiogram showed a four-chamber dilated cardiomyopathy with left ventricular ejection fraction 15 to 20%. The chronicity of the cardiomyopathy is uncertain, the patient's does not report any recent cardiac evaluation, with only a history of atrial fibrillation requiring cardioversion some 15 years ago. Cardiac catheterization performed this admission showed no significant obstructive coronary lesions, consistent with nonischemic cardiomyopathy. Post cardiac catheterization, and IV hydration, his creatinine has reduced from 4.6- 2.9. The patient however still vent dependent, with high oxygen rate requirements. Chest x-ray today shows a mostly right lung opacity, the ICU team is treating him for possible aspiration. Eventually, he would need a device during this hospitalization for secondary prevention of sudden cardiac before discharge as he had cardiac arrest and low ejection fraction. If the patient has active infection and cannot get a device he will at least need a LifeVest we will introduce afterload agents and beta-blockers for LV systolic dysfunction once he is off pressors/inotropic agents and clinically stable. He will need long-term oral anticoagulation for atrial fibrillation will initiate it when clinically stable. Amiodarone was stopped. Patient tolerating digoxin well. Continue digoxin 0.125 p.o. daily. - Patient Problems (1) Atrial fibrillation with RVR Current Visit: Yes Status: Acute (2) Cardiac arrest Current Visit: Yes Status: Acute (3) Cardiogenic shock Current Visit: Yes Status: Acute Subjective Principal diagnosis: AHRF; AMS; Pneumonia; Shock; DM II; Severe Metabolic Acidosis Interval history: Patient stable on vent. He was COVID-19 positive. Telemetry reviewed, still in atrial fibrillation with heart rates in low 80-90's Objective Vital Signs Temp Pulse Pulse Resp BP Pulse Ox 04/30/22 09:00 89 25 H 129/65 98 04/30/22 08:46 89 24 129/65 97 04/30/22 08:30 96 H 24 127/63 98 04/30/22 08:16 92 H 24 127/63 97 04/30/22 08:00 91 H 21 118/70 98 04/30/22 07:46 97 H 14 118/70 98 04/30/22 07:30 92 H 19 113/64 97 04/30/22 07:22 93 H 118/70 98 04/30/22 07:16 88 24 113/64 97 04/30/22 07:00 89 24 118/70 97 04/30/22 06:46 85 24 121/68 98 04/30/22 06:30 87 24 121/68 98 04/30/22 06:16 89 24 121/68 96 04/30/22 06:00 86 24 121/68 97 04/30/22 05:46 90 24 111/63 98 04/30/22 05:30 88 24 119/67 97 04/30/22 05:24 85 114/61 98 04/30/22 05:16 87 24 119/67 99 04/30/22 05:00 91 H 24 119/67 98 04/30/22 04:46 91 H 24 119/67 98 04/30/22 04:30 84 24 110/66 98 04/30/22 04:16 89 24 110/66 99 04/30/22 04:00 98.9 F 87 86 24 110/66 99 04/30/22 03:46 89 24 115/61 99 04/30/22 03:30 84 24 129/66 98 04/30/22 03:16 86 24 129/66 98 04/30/22 03:00 102 H 23 129/66 98 04/30/22 02:46 98 H 24 129/66 97 04/30/22 02:30 97 H 15 130/68 97 04/30/22 02:16 90 23 130/68 97 04/30/22 02:00 105 H 26 H 134/68 95 04/30/22 01:46 94 H 24 134/68 97 04/30/22 01:30 87 21 134/68 98 04/30/22 01:16 99 H 18 134/68 96 04/30/22 01:00 91 H 24 136/72 96 04/30/22 00:46 89 24 136/72 94 04/30/22 00:30 87 24 130/76 96 04/30/22 00:16 84 24 130/76 97 04/30/22 00:00 87 87 24 130/76 99 04/29/22 23:46 88 24 122/71 100 04/29/22 23:30 88 24 122/71 100 04/29/22 23:24 83 24 123/66 100 04/29/22 23:16 86 24 123/66 100 04/29/22 23:00 84 24 119/64 100 04/29/22 22:46 93 H 24 119/64 100 04/29/22 22:30 91 H 24 127/68 100 04/29/22 22:16 87 24 127/68 100 04/29/22 22:00 91 H 24 129/70 99 04/29/22 21:46 97 H 24 129/70 99 04/29/22 21:30 86 25 H 122/69 100 04/29/22 21:16 90 24 122/69 100 04/29/22 21:00 93 H 24 126/65 99 04/29/22 20:55 93 H 122/69 04/29/22 20:46 86 24 126/65 100 04/29/22 20:30 95 H 24 120/74 100 04/29/22 20:16 96 H 24 120/74 100 04/29/22 20:00 82 91 H 24 120/74 99 04/29/22 19:46 90 24 123/71 100 04/29/22 19:36 98.9 F 04/29/22 19:30 85 24 123/71 100 04/29/22 19:16 91 H 24 119/78 100 04/29/22 19:00 84 24 119/78 100 04/29/22 18:46 82 24 118/70 100 04/29/22 18:30 82 24 108/72 100 04/29/22 18:16 91 H 24 108/72 100 04/29/22 18:00 92 H 24 108/72 100 04/29/22 17:46 82 24 112/66 100 04/29/22 17:30 89 24 112/66 100 04/29/22 17:16 91 H 24 107/69 100 04/29/22 17:00 86 24 112/70 100 04/29/22 16:46 89 24 112/70 100 04/29/22 16:45 95 H 119/76 100 04/29/22 16:30 90 24 112/70 100 04/29/22 16:16 90 24 119/76 100 04/29/22 16:00 99.4 F 96 H 84 24 119/76 100 04/29/22 15:46 94 H 24 117/71 100 04/29/22 15:30 92 H 24 117/71 100 04/29/22 15:16 91 H 24 110/70 100 04/29/22 15:00 93 H 24 110/70 100 04/29/22 14:46 89 24 111/68 100 04/29/22 14:32 84 117/58 04/29/22 14:30 87 24 111/68 100 04/29/22 14:16 90 24 110/68 100 04/29/22 14:00 90 24 110/68 100 04/29/22 13:46 89 24 117/69 100 04/29/22 13:30 90 24 117/69 100 04/29/22 13:16 93 H 25 H 109/73 100 04/29/22 13:00 85 24 109/73 99 04/29/22 12:46 97 H 24 126/71 100 04/29/22 12:30 100 H 24 126/71 100 04/29/22 12:16 101 H 19 124/68 99 04/29/22 12:15 99.9 F H 04/29/22 12:00 94 H 96 H 24 124/68 100 04/29/22 11:46 109 H 26 H 122/77 100 04/29/22 11:41 96 H 134/73 99 04/29/22 11:30 91 H 24 122/77 100 04/29/22 11:16 90 20 113/75 100 04/29/22 11:00 91 H 24 124/87 100 04/29/22 10:46 91 H 24 113/75 100 - Physical Examination General: No Apparent Distress, Other (Patient is intubated, sedated, on the vent) HEENT: Positive: EOMI Neck: Positive: neck supple Cardiac: Positive: Irregularly Regular, S1/S2 Lungs: Positive: clear to auscultation (Anterior) Neuro: Positive: Grossly Intact, Other (Intubated, sedated on the vent, unable to assess) Abdomen: Positive: Soft Skin: Positive: Rash (On the left hand which is dressed), Other (Blisters on the right hand) Extremities: Present: edema (Trace) - Labs and Meds Cardiac Enzymes 04/30/22 Range/Units 04:25 AST 138 H (5-40) units/L CBC 04/30/22 Range/Units 04:25 WBC 13.3 H (4.5-11.0) K/mm3 RBC 2.81 L (3.65-5.03) M/mm3 Hgb 8.0 L (11.8-15.2) gm/dl Hct 24.4 L (35.5-45.6) % Plt Count 441 H (140-440) K/mm3 Comprehensive Metabolic Panel 04/30/22 Range/Units 04:25 Sodium 145 (137-145) mmol/L Potassium 3.2 L (3.6-5.0) mmol/L Chloride 106.5 (98-107) mmol/L Carbon Dioxide 27 (22-30) mmol/L BUN 26 H (9-20) mg/dL Creatinine 1.5 H (0.8-1.3) mg/dL Glucose 105 H (75-100) mg/dL Calcium 8.0 L (8.4-10.2) mg/dL Direct Bilirubin 0.3 H (0-0.2) mg/dL Indirect Bilirubin 0.1 mg/dL AST 138 H (5-40) units/L ALT 94 H (7-56) units/L Alkaline Phosphatase 172 H (35-129) units/L Total Protein 5.5 L (6.3-8.2) g/dL Albumin 2.0 L (3.9-5) g/dL - Telemetry EKG Rhythm: Atrial Fibrillation - Allied health notes Allied health notes reviewed: RT
[2022-04-30 10:55] LABS: Alanine Aminotransferase 112 units/L (7-56); Albumin 2.1 g/dL (3.9-5); BUN/Creatinine Ratio 19; Blood Urea Nitrogen 26 mg/dL (9-20); Calcium 7.5 mg/dL (8.4-10.2); Hemolysis Index 2
--- NOTE | 2022-04-30 12:04 | Progress Note ---
Assessment and Plan Acute hypoxemic respiratory failure Altered mental status Aspiration pneumonia Shock (Cardiogenic +/- Septic) Severe Metabolic Acidosis Morbid Obesity Diabetes type II Hypotension Obesity hypoventilation syndrome - Potassium replaced - follow US abdomen - continue diuresis (lasix 40 mg IV X 1) - Azotemia improving - Amiodarone stopped re: transaminitis - digoxin 0.125 mg p.o. daily - ID consult pending - continue strict I's & O's and target negative fluid balance - continue care as below otherwise; - prn vasopressors for target MAP > 65mmHg - continue daily SAT and SBT assessment as tolerated - continue to wean supplemental oxygen for target O2 sat's > 90% acutely - VAP bundle addressed - continue lung protective strategies - continue bronchodilators with pulmonary hygiene per RT - wean per pulmonary driven protocols otherwise - avoid nephrotoxins, renally dose all medications - continue accuchecks with glycemic control per SSI (While critically ill target blood glucose of 140-180 mg/dL; avoid hypoglycemia) - sedation prn for target RASS 0 to -1 - continue to avoid benzodiazepine's, reduce the possibility of delirium - AB's per ID rec's (s/p 5 days empiric CAP therapy with Levaquin) - prn analgesia per CPOT score - Maintenance of sleep-wake cycle, avoid delirium - continue enteral nutritional support at goal rate as tolerated - G.I. & VTE prophylaxis - PT/OT/ROM exercises - continue mobility protocols for pressure ulcer prophylaxis - Monitor hemodynamics closely - continue other care per attending / other consultants - discharge planning ongoing concurrently COVID SPECIFIC INTERVENTIONS - Remdesivir as per ID/Pulmonary developed protocols (receiving) - continue systemic steroids for severe COVID-19 infection (Dexamethasone X >/= 10 days) - follow repeat COVID tests results - zinc and vitamin C supplementation - Monitor inflammatory markers per facility protocol - ferritin, Ddimer, CRP - therapeutic anticoagulation per system Protocol based on d-dimer and clinical considerations - Continue contact and airborne isolation .... Re-evaluate in am & prn CONDITION: CRITICAL PROGNOSIS: GUARDED CODE STATUS: FULL CODE The high probability of a clinically significant, sudden or life-threatening deterioration of the [respiratory, cardiovascular, renal & neurologic] system(s) required my full and direct attention, intervention and personal management. The aggregate critical care time was [34] minutes without overlap. Time includes spent on; [x] Data Review and interpretation [x] Patient assessment and monitoring of vital signs [x] Documentation [x] Medication orders and management Subjective Date of service: 04/30/22 Principal diagnosis: AHRF; AMS; Pneumonia; Shock; DM II; Severe Metabolic Acidosis Interval history: Patient is seen today for: Acute hypoxemic respiratory failure; AMS; Aspiration pneumonia; Shock (Cardiogenic +/- Septic); DM II; Severe Metabolic Acidosis Seen and examined at bedside; 24hour events reviewed; nursing and respiratory care staff consulted; no adverse overnight events reported to me; resting in bed; remains on MVS; failed self extubation and re-intubated recently; tolerating diuresis re: interstitial edema; azotemia is improving also; sedated but following prompts during SAT's Objective Vital Signs - 12hr 04/30/22 04/30/22 04/30/22 00:16 00:30 00:46 Temperature Pulse Rate 84 87 89 Pulse Rate [ From Monitor] Respiratory 24 24 24 Rate Blood Pressure 130/76 130/76 136/72 O2 Sat by Pulse 97 96 94 Oximetry 04/30/22 04/30/22 04/30/22 01:00 01:16 01:30 Temperature Pulse Rate 91 H 99 H 87 Pulse Rate [ From Monitor] Respiratory 24 18 21 Rate Blood Pressure 136/72 134/68 134/68 O2 Sat by Pulse 96 96 98 Oximetry 04/30/22 04/30/22 04/30/22 01:46 02:00 02:16 Temperature Pulse Rate 94 H 105 H 90 Pulse Rate [ From Monitor] Respiratory 24 26 H 23 Rate Blood Pressure 134/68 134/68 130/68 O2 Sat by Pulse 97 95 97 Oximetry 04/30/22 04/30/22 04/30/22 02:30 02:46 03:00 Temperature Pulse Rate 97 H 98 H 102 H Pulse Rate [ From Monitor] Respiratory 15 24 23 Rate Blood Pressure 130/68 129/66 129/66 O2 Sat by Pulse 97 97 98 Oximetry 04/30/22 04/30/22 04/30/22 03:16 03:30 03:46 Temperature Pulse Rate 86 84 89 Pulse Rate [ From Monitor] Respiratory 24 24 24 Rate Blood Pressure 129/66 129/66 115/61 O2 Sat by Pulse 98 98 99 Oximetry 04/30/22 04/30/22 04/30/22 04:00 04:16 04:30 Temperature 98.9 F Pulse Rate 87 89 84 Pulse Rate [ 86 From Monitor] Respiratory 24 24 24 Rate Blood Pressure 110/66 110/66 110/66 O2 Sat by Pulse 99 99 98 Oximetry 04/30/22 04/30/22 04/30/22 04:46 05:00 05:16 Temperature Pulse Rate 91 H 91 H 87 Pulse Rate [ From Monitor] Respiratory 24 24 24 Rate Blood Pressure 119/67 119/67 119/67 O2 Sat by Pulse 98 98 99 Oximetry 04/30/22 04/30/22 04/30/22 05:24 05:30 05:46 Temperature Pulse Rate 85 88 90 Pulse Rate [ From Monitor] Respiratory 24 24 Rate Blood Pressure 114/61 119/67 111/63 O2 Sat by Pulse 98 97 98 Oximetry 04/30/22 04/30/22 04/30/22 06:00 06:16 06:30 Temperature Pulse Rate 86 89 87 Pulse Rate [ From Monitor] Respiratory 24 24 24 Rate Blood Pressure 121/68 121/68 121/68 O2 Sat by Pulse 97 96 98 Oximetry 04/30/22 04/30/22 04/30/22 06:46 07:00 07:16 Temperature Pulse Rate 85 89 88 Pulse Rate [ From Monitor] Respiratory 24 24 24 Rate Blood Pressure 121/68 118/70 113/64 O2 Sat by Pulse 98 97 97 Oximetry 04/30/22 04/30/22 04/30/22 07:22 07:30 07:46 Temperature Pulse Rate 93 H 92 H 97 H Pulse Rate [ From Monitor] Respiratory 19 14 Rate Blood Pressure 118/70 113/64 118/70 O2 Sat by Pulse 98 97 98 Oximetry 04/30/22 04/30/22 04/30/22 08:00 08:16 08:30 Temperature Pulse Rate 91 H 92 H 96 H Pulse Rate [ 93 H From Monitor] Respiratory 20 24 24 Rate Blood Pressure 118/70 127/63 127/63 O2 Sat by Pulse 99 97 98 Oximetry 04/30/22 04/30/22 04/30/22 08:46 09:00 09:16 Temperature Pulse Rate 89 89 88 Pulse Rate [ From Monitor] Respiratory 24 25 H 21 Rate Blood Pressure 129/65 129/65 124/70 O2 Sat by Pulse 97 98 98 Oximetry 04/30/22 04/30/22 04/30/22 09:30 09:46 10:00 Temperature Pulse Rate 93 H 91 H 94 H Pulse Rate [ From Monitor] Respiratory 24 16 24 Rate Blood Pressure 124/70 135/66 135/66 O2 Sat by Pulse 98 98 98 Oximetry 04/30/22 04/30/22 04/30/22 10:16 10:30 10:46 Temperature Pulse Rate 86 89 90 Pulse Rate [ From Monitor] Respiratory 24 24 24 Rate Blood Pressure 123/66 123/66 120/70 O2 Sat by Pulse 98 98 99 Oximetry 04/30/22 04/30/22 04/30/22 11:00 11:16 11:30 Temperature Pulse Rate 91 H 85 84 Pulse Rate [ From Monitor] Respiratory 24 26 H 24 Rate Blood Pressure 121/76 121/76 121/76 O2 Sat by Pulse 97 96 97 Oximetry Constitutional: no acute distress, other (elderly obese 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 MVS comfortably) Eyes: non-icteric ENT: oropharynx moist, other (ETT 24 cm DIANNE) Neck: supple, no JVD, other (RIJ CVL) Effort: normal Ascultation: Bilateral: diminished breath sounds, rales Percussion: Bilateral: not dull Cardiovascular: irregular rhythm, other (No R/M) Gastrointestinal: normoactive bowel sounds, soft, non-tender, non-distended (protuberant), other (Dunbar catheter) Integumentary: rash (erythematous rash over anterior chest wall and upper extremities) Extremities: no cyanosis, no edema, pulses normal, no ischemia or petechiae, edema (bilateral upper extemities) Neurologic: non-focal exam (grossly), pupils equal and round, other (obeys simple commands) Psychiatric: other (Unable to assess due to mental status.) CBC and BMP: 04/30/22 04:25 04/30/22 10:19 ABG, PT/INR, D-dimer: ABG ABG pH 7.514 pH Units (7.350-7.450) H 04/30/22 05:20 ABG pCO2 35.6 mm Hg 04/30/22 05:20 ABG pO2 73.4 mm Hg (80.0-90.0) L 04/30/22 05:20 ABG O2 Saturation 96.8 % (95.0-99.0) 04/30/22 05:20 PT/INR, D-dimer PT 15.6 Sec. (12.2-14.9) H 04/18/22 Unknown INR 1.08 (0.87-1.13) 04/18/22 Unknown Abnormal lab findings: Abnormal Labs 04/17/22 04/17/22 04/17/22 19:18 19:55 19:56 WBC RBC Hgb Hct RDW Plt Count Lymph % (Auto) [place] % (Auto) Eos % (Auto) Lymph # (Auto) [place] # (Auto) Eos # (Auto) Seg Neutrophils % Seg Neuts % (Manual) Lymphocytes % (Manual) Eosinophils % (Manual) Seg Neutrophils # Seg Neutrophils # Man Lymphocytes # (Manual) Eosinophils # (Manual) PT Activated Coag Time Heparin Anti-Xa Level ABG pH 7.120 L* ABG pO2 45.3 L ABG HCO3 18.5 L ABG O2 Saturation 68.3 L ABG Base Excess -11.5 L ABG Hemoglobin Oxyhemoglobin 66.8 L Sodium Potassium Chloride 94.2 L Carbon Dioxide 17 L BUN Creatinine 1.6 H Glucose 315 H POC Glucose 277 H Lactic Acid Calcium Phosphorus Magnesium Direct Bilirubin AST 529 H ALT 318 H Alkaline Phosphatase 137 H Total Creatine Kinase 398 H CK-MB (CK-2) 17.9 H CK-MB (CK-2) Rel Index 4.4 H Troponin T 0.205 H* C-Reactive Protein Total Protein Albumin Triglycerides Ur Specific [place] Urine Blood Urine WBC (Auto) Urine Creatinine Digoxin Coronavirus (PCR) 04/17/22 04/17/22 04/17/22 19:58 19:58 21:42 WBC 11.9 H RBC 5.17 H Hgb 15.5 H Hct 48.0 H RDW Plt Count Lymph % (Auto) [place] % (Auto) Eos % (Auto) Lymph # (Auto) [place] # (Auto) Eos # (Auto) Seg Neutrophils % 71.7 H Seg Neuts % (Manual) Lymphocytes % (Manual) Eosinophils % (Manual) Seg Neutrophils # 8.5 H Seg Neutrophils # Man Lymphocytes # (Manual) Eosinophils # (Manual) PT Activated Coag Time Heparin Anti-Xa Level ABG pH ABG pO2 ABG HCO3 ABG O2 Saturation ABG Base Excess ABG Hemoglobin Oxyhemoglobin Sodium Potassium Chloride 95.0 L Carbon Dioxide 19 L BUN Creatinine 1.5 H Glucose 306 H POC Glucose Lactic Acid Calcium Phosphorus Magnesium Direct Bilirubin AST ALT Alkaline Phosphatase Total Creatine Kinase 412 H CK-MB (CK-2) 19.2 H CK-MB (CK-2) Rel Index 4.6 H Troponin T 0.285 H* D C-Reactive Protein Total Protein Albumin Triglycerides Ur Specific [place] Urine Blood Urine WBC (Auto) Urine Creatinine Digoxin Coronavirus (PCR) 04/17/22 04/18/22 04/18/22 21:42 00:40 01:07 WBC RBC Hgb Hct RDW Plt Count Lymph % (Auto) [place] % (Auto) Eos % (Auto) Lymph # (Auto) [place] # (Auto) Eos # (Auto) Seg Neutrophils % Seg Neuts % (Manual) Lymphocytes % (Manual) Eosinophils % (Manual) Seg Neutrophils # Seg Neutrophils # Man Lymphocytes # (Manual) Eosinophils # (Manual) PT Activated Coag Time Heparin Anti-Xa Level ABG pH ABG pO2 ABG HCO3 ABG O2 Saturation ABG Base Excess ABG Hemoglobin Oxyhemoglobin Sodium Potassium Chloride Carbon Dioxide BUN Creatinine Glucose POC Glucose 320 H Lactic Acid 7.90 H* 7.90 H* Calcium Phosphorus Magnesium Direct Bilirubin AST ALT Alkaline Phosphatase Total Creatine Kinase CK-MB (CK-2) CK-MB (CK-2) Rel Index Troponin T C-Reactive Protein Total Protein Albumin Triglycerides Ur Specific [place] Urine Blood Urine WBC (Auto) Urine Creatinine Digoxin Coronavirus (PCR) 04/18/22 04/18/22 04/18/22 01:07 04:00 06:04 WBC RBC Hgb Hct RDW Plt Count Lymph % (Auto) [place] % (Auto) Eos % (Auto) Lymph # (Auto) [place] # (Auto) Eos # (Auto) Seg Neutrophils % Seg Neuts % (Manual) Lymphocytes % (Manual) Eosinophils % (Manual) Seg Neutrophils # Seg Neutrophils # Man Lymphocytes # (Manual) Eosinophils # (Manual) PT Activated Coag Time Heparin Anti-Xa Level < 0.10 L ABG pH ABG pO2 ABG HCO3 ABG O2 Saturation ABG Base Excess ABG Hemoglobin Oxyhemoglobin Sodium Potassium Chloride Carbon Dioxide BUN Creatinine Glucose POC Glucose 305 H Lactic Acid Calcium Phosphorus Magnesium Direct Bilirubin AST ALT Alkaline Phosphatase Total Creatine Kinase 488 H CK-MB (CK-2) 25.3 H CK-MB (CK-2) Rel Index 5.1 H Troponin T 0.665 H* D C-Reactive Protein Total Protein Albumin Triglycerides Ur Specific [place] Urine Blood Urine WBC (Auto) Urine Creatinine Digoxin Coronavirus (PCR) 04/18/22 04/18/22 04/18/22 06:20 11:10 12:48 WBC RBC Hgb Hct RDW Plt Count Lymph % (Auto) [place] % (Auto) Eos % (Auto) Lymph # (Auto) [place] # (Auto) Eos # (Auto) Seg Neutrophils % Seg Neuts % (Manual) Lymphocytes % (Manual) Eosinophils % (Manual) Seg Neutrophils # Seg Neutrophils # Man Lymphocytes # (Manual) Eosinophils # (Manual) PT Activated Coag Time Heparin Anti-Xa Level < 0.10 L ABG pH 7.119 L* 7.304 L ABG pO2 56.1 L 103.5 H ABG HCO3 18.4 L 14.4 L ABG O2 Saturation 80.7 L ABG Base Excess -11.4 L -10.6 L ABG Hemoglobin 13.5 L Oxyhemoglobin 79.2 L Sodium Potassium Chloride Carbon Dioxide BUN Creatinine Glucose POC Glucose Lactic Acid Calcium Phosphorus Magnesium Direct Bilirubin AST ALT Alkaline Phosphatase Total Creatine Kinase CK-MB (CK-2) CK-MB (CK-2) Rel Index Troponin T C-Reactive Protein Total Protein Albumin Triglycerides Ur Specific [place] Urine Blood Urine WBC (Auto) Urine Creatinine Digoxin Coronavirus (PCR) 04/18/22 04/18/22 04/18/22 13:13 16:00 16:00 WBC RBC Hgb Hct RDW Plt Count Lymph % (Auto) [place] % (Auto) Eos % (Auto) Lymph # (Auto) [place] # (Auto) Eos # (Auto) Seg Neutrophils % Seg Neuts % (Manual) Lymphocytes % (Manual) Eosinophils % (Manual) Seg Neutrophils # Seg Neutrophils # Man Lymphocytes # (Manual) Eosinophils # (Manual) PT Activated Coag Time Heparin Anti-Xa Level ABG pH ABG pO2 ABG HCO3 ABG O2 Saturation ABG Base Excess ABG Hemoglobin Oxyhemoglobin Sodium Potassium Chloride Carbon Dioxide BUN Creatinine Glucose POC Glucose 334 H Lactic Acid 7.00 H* Calcium Phosphorus 5.70 H Magnesium 1.30 L Direct Bilirubin AST ALT Alkaline Phosphatase Total Creatine Kinase 969 H CK-MB (CK-2) 55.9 H CK-MB (CK-2) Rel Index 5.7 H Troponin T 1.580 H* D C-Reactive Protein Total Protein Albumin Triglycerides Ur Specific [place] Urine Blood Urine WBC (Auto) Urine Creatinine Digoxin Coronavirus (PCR) 04/18/22 04/18/22 04/18/22 16:00 18:00 18:01 WBC RBC Hgb Hct RDW Plt Count Lymph % (Auto) [place] % (Auto) Eos % (Auto) Lymph # (Auto) [place] # (Auto) Eos # (Auto) Seg Neutrophils % Seg Neuts % (Manual) Lymphocytes % (Manual) Eosinophils % (Manual) Seg Neutrophils # Seg Neutrophils # Man Lymphocytes # (Manual) Eosinophils # (Manual) PT Activated Coag Time Heparin Anti-Xa Level < 0.10 L ABG pH ABG pO2 ABG HCO3 ABG O2 Saturation ABG Base Excess ABG Hemoglobin Oxyhemoglobin Sodium 136 L Potassium 6.3 H* D Chloride 97.6 L Carbon Dioxide 18 L BUN 34 H Creatinine 3.5 H Glucose 409 H POC Glucose 397 H Lactic Acid Calcium 6.8 L Phosphorus Magnesium Direct Bilirubin AST ALT Alkaline Phosphatase Total Creatine Kinase CK-MB (CK-2) CK-MB (CK-2) Rel Index Troponin T C-Reactive Protein Total Protein Albumin Triglycerides Ur Specific [place] Urine Blood Urine WBC (Auto) Urine Creatinine Digoxin Coronavirus (PCR) 04/18/22 04/18/22 04/18/22 19:13 20:58 21:22 WBC RBC Hgb Hct RDW Plt Count Lymph % (Auto) [place] % (Auto) Eos % (Auto) Lymph # (Auto) [place] # (Auto) Eos # (Auto) Seg Neutrophils % Seg Neuts % (Manual) Lymphocytes % (Manual) Eosinophils % (Manual) Seg Neutrophils # Seg Neutrophils # Man Lymphocytes # (Manual) Eosinophils # (Manual) PT Activated Coag Time Heparin Anti-Xa Level ABG pH 7.502 H ABG pO2 144.5 H ABG HCO3 ABG O2 Saturation ABG Base Excess ABG Hemoglobin 12.5 L Oxyhemoglobin Sodium Potassium Chloride Carbon Dioxide BUN Creatinine Glucose POC Glucose 321 H 307 H Lactic Acid Calcium Phosphorus Magnesium Direct Bilirubin AST ALT Alkaline Phosphatase Total Creatine Kinase CK-MB (CK-2) CK-MB (CK-2) Rel Index Troponin T C-Reactive Protein Total Protein Albumin Triglycerides Ur Specific [place] Urine Blood Urine WBC (Auto) Urine Creatinine Digoxin Coronavirus (PCR) 04/18/22 04/18/22 04/18/22 21:30 21:30 Unknown WBC RBC Hgb Hct RDW Plt Count Lymph % (Auto) [place] % (Auto) Eos % (Auto) Lymph # (Auto) [place] # (Auto) Eos # (Auto) Seg Neutrophils % Seg Neuts % (Manual) 81.0 H Lymphocytes % (Manual) 12.0 L Eosinophils % (Manual) Seg Neutrophils # 9.8 H Seg Neutrophils # Man 8.7 H Lymphocytes # (Manual) Eosinophils # (Manual) PT Activated Coag Time Heparin Anti-Xa Level ABG pH ABG pO2 ABG HCO3 ABG O2 Saturation ABG Base Excess ABG Hemoglobin Oxyhemoglobin Sodium Potassium Chloride 96.6 L Carbon Dioxide BUN 37 H Creatinine 3.6 H Glucose 312 H POC Glucose Lactic Acid 5.50 H* Calcium 7.3 L Phosphorus Magnesium Direct Bilirubin AST ALT Alkaline Phosphatase Total Creatine Kinase CK-MB (CK-2) CK-MB (CK-2) Rel Index Troponin T C-Reactive Protein Total Protein Albumin Triglycerides Ur Specific [place] Urine Blood Urine WBC (Auto) Urine Creatinine Digoxin Coronavirus (PCR) 04/18/22 04/18/22 04/19/22 Unknown Unknown 00:35 WBC RBC Hgb Hct RDW Plt Count Lymph % (Auto) [place] % (Auto) Eos % (Auto) Lymph # (Auto) [place] # (Auto) Eos # (Auto) Seg Neutrophils % Seg Neuts % (Manual) Lymphocytes % (Manual) Eosinophils % (Manual) Seg Neutrophils # Seg Neutrophils # Man Lymphocytes # (Manual) Eosinophils # (Manual) PT 15.6 H Activated Coag Time Heparin Anti-Xa Level ABG pH ABG pO2 ABG HCO3 ABG O2 Saturation ABG Base Excess ABG Hemoglobin Oxyhemoglobin Sodium Potassium Chloride Carbon Dioxide 18 L BUN 26 H Creatinine 2.5 H D Glucose 330 H POC Glucose Lactic Acid Calcium 7.9 L Phosphorus Magnesium Direct Bilirubin AST 463 H ALT 249 H Alkaline Phosphatase Total Creatine Kinase CK-MB (CK-2) CK-MB (CK-2) Rel Index Troponin T 2.670 H* D C-Reactive Protein Total Protein Albumin 3.3 L Triglycerides Ur Specific [place] Urine Blood Urine WBC (Auto) Urine Creatinine Digoxin Coronavirus (PCR) 04/19/22 04/19/22 04/19/22 00:39 02:08 02:08 WBC RBC Hgb Hct RDW Plt Count Lymph % (Auto) [place] % (Auto) Eos % (Auto) Lymph # (Auto) [place] # (Auto) Eos # (Auto) Seg Neutrophils % Seg Neuts % (Manual) Lymphocytes % (Manual) Eosinophils % (Manual) Seg Neutrophils # Seg Neutrophils # Man Lymphocytes # (Manual) Eosinophils # (Manual) PT Activated Coag Time Heparin Anti-Xa Level ABG pH ABG pO2 ABG HCO3 ABG O2 Saturation ABG Base Excess ABG Hemoglobin Oxyhemoglobin Sodium Potassium Chloride Carbon Dioxide BUN Creatinine Glucose POC Glucose 263 H Lactic Acid Calcium Phosphorus Magnesium Direct Bilirubin AST ALT Alkaline Phosphatase Total Creatine Kinase CK-MB (CK-2) CK-MB (CK-2) Rel Index Troponin T C-Reactive Protein Total Protein Albumin Triglycerides Ur Specific [place] Urine Blood Large A Urine WBC (Auto) 88.0 H Urine Creatinine 90.9 H Digoxin Coronavirus (PCR) 04/19/22 04/19/22 04/19/22 02:08 03:45 03:45 WBC 14.2 H RBC Hgb Hct RDW Plt Count Lymph % (Auto) [place] % (Auto) Eos % (Auto) Lymph # (Auto) [place] # (Auto) Eos # (Auto) Seg Neutrophils % Seg Neuts % (Manual) Lymphocytes % (Manual) Eosinophils % (Manual) Seg Neutrophils # Seg Neutrophils # Man Lymphocytes # (Manual) Eosinophils # (Manual) PT Activated Coag Time Heparin Anti-Xa Level 0.18 L ABG pH ABG pO2 ABG HCO3 ABG O2 Saturation ABG Base Excess ABG Hemoglobin Oxyhemoglobin Sodium Potassium Chloride 94.2 L Carbon Dioxide BUN 39 H Creatinine 3.8 H Glucose 243 H POC Glucose Lactic Acid Calcium 7.1 L Phosphorus Magnesium 1.50 L Direct Bilirubin AST 380 H ALT 289 H Alkaline Phosphatase Total Creatine Kinase CK-MB (CK-2) CK-MB (CK-2) Rel Index Troponin T C-Reactive Protein Total Protein 5.4 L Albumin 2.5 L Triglycerides Ur Specific [place] Urine Blood Urine WBC (Auto) Urine Creatinine Digoxin Coronavirus (PCR) 04/19/22 04/19/22 04/19/22 03:45 06:01 07:11 WBC RBC Hgb Hct RDW Plt Count Lymph % (Auto) [place] % (Auto) Eos % (Auto) Lymph # (Auto) [place] # (Auto) Eos # (Auto) Seg Neutrophils % Seg Neuts % (Manual) Lymphocytes % (Manual) Eosinophils % (Manual) Seg Neutrophils # Seg Neutrophils # Man Lymphocytes # (Manual) Eosinophils # (Manual) PT Activated Coag Time Heparin Anti-Xa Level ABG pH ABG pO2 ABG HCO3 ABG O2 Saturation ABG Base Excess ABG Hemoglobin Oxyhemoglobin Sodium Potassium Chloride Carbon Dioxide BUN Creatinine Glucose POC Glucose 165 H Lactic Acid 4.00 H* Calcium Phosphorus Magnesium Direct Bilirubin AST ALT Alkaline Phosphatase Total Creatine Kinase 3270 H CK-MB (CK-2) 28.5 H CK-MB (CK-2) Rel Index Troponin T 2.980 H* C-Reactive Protein Total Protein Albumin Triglycerides Ur Specific [place] Urine Blood Urine WBC (Auto) Urine Creatinine Digoxin Coronavirus (PCR) 04/19/22 04/19/22 04/19/22 07:50 08:50 12:49 WBC RBC Hgb Hct RDW Plt Count Lymph % (Auto) [place] % (Auto) Eos % (Auto) Lymph # (Auto) [place] # (Auto) Eos # (Auto) Seg Neutrophils % Seg Neuts % (Manual) Lymphocytes % (Manual) Eosinophils % (Manual) Seg Neutrophils # Seg Neutrophils # Man Lymphocytes # (Manual) Eosinophils # (Manual) PT Activated Coag Time Heparin Anti-Xa Level ABG pH 7.471 H ABG pO2 58.9 L ABG HCO3 27.1 H ABG O2 Saturation 91.7 L ABG Base Excess 3.4 H ABG Hemoglobin 12.2 L Oxyhemoglobin 90.0 L Sodium Potassium Chloride Carbon Dioxide BUN Creatinine Glucose POC Glucose 331 H Lactic Acid 3.40 H* Calcium Phosphorus Magnesium Direct Bilirubin AST ALT Alkaline Phosphatase Total Creatine Kinase CK-MB (CK-2) CK-MB (CK-2) Rel Index Troponin T C-Reactive Protein Total Protein Albumin Triglycerides Ur Specific [place] Urine Blood Urine WBC (Auto) Urine Creatinine Digoxin Coronavirus (PCR) 04/19/22 04/19/22 04/19/22 16:15 19:25 21:17 WBC RBC Hgb Hct RDW Plt Count Lymph % (Auto) [place] % (Auto) Eos % (Auto) Lymph # (Auto) [place] # (Auto) Eos # (Auto) Seg Neutrophils % Seg Neuts % (Manual) Lymphocytes % (Manual) Eosinophils % (Manual) Seg Neutrophils # Seg Neutrophils # Man Lymphocytes # (Manual) Eosinophils # (Manual) PT Activated Coag Time Heparin Anti-Xa Level ABG pH ABG pO2 ABG HCO3 ABG O2 Saturation ABG Base Excess ABG Hemoglobin Oxyhemoglobin Sodium Potassium Chloride Carbon Dioxide BUN Creatinine Glucose POC Glucose 304 H 251 H Lactic Acid 4.00 H* Calcium Phosphorus Magnesium Direct Bilirubin AST ALT Alkaline Phosphatase Total Creatine Kinase CK-MB (CK-2) CK-MB (CK-2) Rel Index Troponin T C-Reactive Protein Total Protein Albumin Triglycerides Ur Specific [place] Urine Blood Urine WBC (Auto) Urine Creatinine Digoxin Coronavirus (PCR) 04/19/22 04/20/22 04/20/22 23:00 04:12 04:12 WBC 12.2 H RBC Hgb 11.6 L Hct 35.3 L RDW Plt Count Lymph % (Auto) [place] % (Auto) Eos % (Auto) Lymph # (Auto) [place] # (Auto) Eos # (Auto) Seg Neutrophils % Seg Neuts % (Manual) Lymphocytes % (Manual) Eosinophils % (Manual) Seg Neutrophils # Seg Neutrophils # Man Lymphocytes # (Manual) Eosinophils # (Manual) PT Activated Coag Time Heparin Anti-Xa Level 0.15 L ABG pH ABG pO2 ABG HCO3 ABG O2 Saturation ABG Base Excess ABG Hemoglobin Oxyhemoglobin Sodium Potassium Chloride Carbon Dioxide BUN Creatinine Glucose POC Glucose 236 H Lactic Acid Calcium Phosphorus Magnesium Direct Bilirubin AST ALT Alkaline Phosphatase Total Creatine Kinase CK-MB (CK-2) CK-MB (CK-2) Rel Index Troponin T C-Reactive Protein Total Protein Albumin Triglycerides Ur Specific [place] Urine Blood Urine WBC (Auto) Urine Creatinine Digoxin Coronavirus (PCR) 04/20/22 04/20/22 04/20/22 04:12 04:12 09:10 WBC RBC Hgb Hct RDW Plt Count Lymph % (Auto) [place] % (Auto) Eos % (Auto) Lymph # (Auto) [place] # (Auto) Eos # (Auto) Seg Neutrophils % Seg Neuts % (Manual) Lymphocytes % (Manual) Eosinophils % (Manual) Seg Neutrophils # Seg Neutrophils # Man Lymphocytes # (Manual) Eosinophils # (Manual) PT Activated Coag Time Heparin Anti-Xa Level ABG pH ABG pO2 ABG HCO3 ABG O2 Saturation ABG Base Excess ABG Hemoglobin Oxyhemoglobin Sodium 133 L Potassium 3.5 L Chloride 91.9 L Carbon Dioxide BUN 44 H Creatinine 4.6 H Glucose 263 H POC Glucose Lactic Acid 2.80 H* Calcium 7.2 L Phosphorus Magnesium Direct Bilirubin AST 553 H ALT 471 H Alkaline Phosphatase Total Creatine Kinase 3019 H CK-MB (CK-2) CK-MB (CK-2) Rel Index Troponin T C-Reactive Protein Total Protein 5.7 L Albumin 2.4 L Triglycerides 254 H Ur Specific [place] Urine Blood Urine WBC (Auto) Urine Creatinine Digoxin Coronavirus (PCR) 04/20/22 04/20/22 04/20/22 09:31 11:18 18:08 WBC RBC Hgb Hct RDW Plt Count Lymph % (Auto) [place] % (Auto) Eos % (Auto) Lymph # (Auto) [place] # (Auto) Eos # (Auto) Seg Neutrophils % Seg Neuts % (Manual) Lymphocytes % (Manual) Eosinophils % (Manual) Seg Neutrophils # Seg Neutrophils # Man Lymphocytes # (Manual) Eosinophils # (Manual) PT Activated Coag Time Heparin Anti-Xa Level ABG pH 7.512 H ABG pO2 ABG HCO3 26.2 H ABG O2 Saturation ABG Base Excess 3.2 H ABG Hemoglobin 9.0 L Oxyhemoglobin Sodium Potassium Chloride Carbon Dioxide BUN Creatinine Glucose POC Glucose 285 H 293 H Lactic Acid Calcium Phosphorus Magnesium Direct Bilirubin AST ALT Alkaline Phosphatase Total Creatine Kinase CK-MB (CK-2) CK-MB (CK-2) Rel Index Troponin T C-Reactive Protein Total Protein Albumin Triglycerides Ur Specific [place] Urine Blood Urine WBC (Auto) Urine Creatinine Digoxin Coronavirus (PCR) 04/20/22 04/21/22 04/21/22 21:40 00:10 04:00 WBC RBC Hgb Hct RDW Plt Count Lymph % (Auto) [place] % (Auto) Eos % (Auto) Lymph # (Auto) [place] # (Auto) Eos # (Auto) Seg Neutrophils % Seg Neuts % (Manual) Lymphocytes % (Manual) Eosinophils % (Manual) Seg Neutrophils # Seg Neutrophils # Man Lymphocytes # (Manual) Eosinophils # (Manual) PT Activated Coag Time Heparin Anti-Xa Level 0.16 L ABG pH ABG pO2 59.4 L ABG HCO3 29.7 H ABG O2 Saturation 90.1 L ABG Base Excess 3.1 H ABG Hemoglobin 11.6 L Oxyhemoglobin 88.2 L Sodium Potassium Chloride Carbon Dioxide BUN Creatinine Glucose POC Glucose 290 H Lactic Acid Calcium Phosphorus Magnesium Direct Bilirubin AST ALT Alkaline Phosphatase Total Creatine Kinase CK-MB (CK-2) CK-MB (CK-2) Rel Index Troponin T C-Reactive Protein Total Protein Albumin Triglycerides Ur Specific [place] Urine Blood Urine WBC (Auto) Urine Creatinine Digoxin Coronavirus (PCR) 04/21/22 04/21/22 04/21/22 04:30 04:30 05:57 WBC 17.9 H RBC Hgb 11.7 L Hct 35.1 L RDW Plt Count Lymph % (Auto) [place] % (Auto) Eos % (Auto) Lymph # (Auto) [place] # (Auto) Eos # (Auto) Seg Neutrophils % Seg Neuts % (Manual) Lymphocytes % (Manual) Eosinophils % (Manual) Seg Neutrophils # Seg Neutrophils # Man Lymphocytes # (Manual) Eosinophils # (Manual) PT Activated Coag Time Heparin Anti-Xa Level ABG pH ABG pO2 ABG HCO3 ABG O2 Saturation ABG Base Excess ABG Hemoglobin Oxyhemoglobin Sodium Potassium Chloride 95.7 L Carbon Dioxide BUN 45 H Creatinine 4.2 H Glucose 309 H POC Glucose 265 H Lactic Acid Calcium 7.4 L Phosphorus 5.60 H D Magnesium 2.50 H Direct Bilirubin AST 217 H ALT 376 H Alkaline Phosphatase Total Creatine Kinase CK-MB (CK-2) CK-MB (CK-2) Rel Index Troponin T C-Reactive Protein Total Protein Albumin 2.8 L Triglycerides Ur Specific [place] Urine Blood Urine WBC (Auto) Urine Creatinine Digoxin Coronavirus (PCR) 04/21/22 04/21/22 04/21/22 12:14 13:45 18:10 WBC RBC Hgb Hct RDW Plt Count Lymph % (Auto) [place] % (Auto) Eos % (Auto) Lymph # (Auto) [place] # (Auto) Eos # (Auto) Seg Neutrophils % Seg Neuts % (Manual) Lymphocytes % (Manual) Eosinophils % (Manual) Seg Neutrophils # Seg Neutrophils # Man Lymphocytes # (Manual) Eosinophils # (Manual) PT Activated Coag Time 179 H Heparin Anti-Xa Level ABG pH ABG pO2 ABG HCO3 ABG O2 Saturation ABG Base Excess ABG Hemoglobin Oxyhemoglobin Sodium Potassium Chloride Carbon Dioxide BUN Creatinine Glucose POC Glucose 248 H 240 H Lactic Acid Calcium Phosphorus Magnesium Direct Bilirubin AST ALT Alkaline Phosphatase Total Creatine Kinase CK-MB (CK-2) CK-MB (CK-2) Rel Index Troponin T C-Reactive Protein Total Protein Albumin Triglycerides Ur Specific [place] Urine Blood Urine WBC (Auto) Urine Creatinine Digoxin Coronavirus (PCR) 04/22/22 04/22/22 04/22/22 00:09 04:00 04:33 WBC 12.4 H RBC 3.34 L Hgb 9.8 L Hct 29.7 L RDW Plt Count 138 L Lymph % (Auto) [place] % (Auto) Eos % (Auto) Lymph # (Auto) [place] # (Auto) Eos # (Auto) Seg Neutrophils % Seg Neuts % (Manual) Lymphocytes % (Manual) Eosinophils % (Manual) Seg Neutrophils # Seg Neutrophils # Man Lymphocytes # (Manual) Eosinophils # (Manual) PT Activated Coag Time Heparin Anti-Xa Level ABG pH ABG pO2 ABG HCO3 ABG O2 Saturation ABG Base Excess ABG Hemoglobin Oxyhemoglobin Sodium Potassium Chloride Carbon Dioxide BUN 40 H Creatinine 2.9 H Glucose 269 H POC Glucose 248 H Lactic Acid Calcium 7.3 L Phosphorus Magnesium Direct Bilirubin AST ALT Alkaline Phosphatase Total Creatine Kinase 973 H CK-MB (CK-2) CK-MB (CK-2) Rel Index Troponin T C-Reactive Protein Total Protein Albumin Triglycerides Ur Specific [place] Urine Blood Urine WBC (Auto) Urine Creatinine Digoxin Coronavirus (PCR) 04/22/22 04/22/22 04/22/22 10:13 11:51 18:02 WBC RBC Hgb Hct RDW Plt Count Lymph % (Auto) [place] % (Auto) Eos % (Auto) Lymph # (Auto) [place] # (Auto) Eos # (Auto) Seg Neutrophils % Seg Neuts % (Manual) Lymphocytes % (Manual) Eosinophils % (Manual) Seg Neutrophils # Seg Neutrophils # Man Lymphocytes # (Manual) Eosinophils # (Manual) PT Activated Coag Time Heparin Anti-Xa Level ABG pH ABG pO2 56.1 L ABG HCO3 28.4 H ABG O2 Saturation 89.3 L ABG Base Excess ABG Hemoglobin 9.8 L Oxyhemoglobin 87.7 L Sodium Potassium Chloride Carbon Dioxide BUN Creatinine Glucose POC Glucose 302 H 266 H Lactic Acid Calcium Phosphorus Magnesium Direct Bilirubin AST ALT Alkaline Phosphatase Total Creatine Kinase CK-MB (CK-2) CK-MB (CK-2) Rel Index Troponin T C-Reactive Protein Total Protein Albumin Triglycerides Ur Specific [place] Urine Blood Urine WBC (Auto) Urine Creatinine Digoxin Coronavirus (PCR) 04/22/22 04/22/22 04/23/22 21:18 23:30 04:19 WBC RBC 3.34 L Hgb 9.9 L Hct 29.9 L RDW Plt Count Lymph % (Auto) [place] % (Auto) Eos % (Auto) Lymph # (Auto) [place] # (Auto) Eos # (Auto) Seg Neutrophils % Seg Neuts % (Manual) 74.0 H Lymphocytes % (Manual) 10.0 L Eosinophils % (Manual) 7.0 H Seg Neutrophils # Seg Neutrophils # Man 8.0 H Lymphocytes # (Manual) 1.1 L Eosinophils # (Manual) 0.8 H PT Activated Coag Time Heparin Anti-Xa Level ABG pH ABG pO2 ABG HCO3 ABG O2 Saturation ABG Base Excess ABG Hemoglobin Oxyhemoglobin Sodium Potassium Chloride Carbon Dioxide BUN Creatinine Glucose POC Glucose 299 H 299 H Lactic Acid Calcium Phosphorus Magnesium Direct Bilirubin AST ALT Alkaline Phosphatase Total Creatine Kinase CK-MB (CK-2) CK-MB (CK-2) Rel Index Troponin T C-Reactive Protein Total Protein Albumin Triglycerides Ur Specific [place] Urine Blood Urine WBC (Auto) Urine Creatinine Digoxin Coronavirus (PCR) 04/23/22 04/23/22 04/23/22 04:19 05:24 11:20 WBC RBC Hgb Hct RDW Plt Count Lymph % (Auto) [place] % (Auto) Eos % (Auto) Lymph # (Auto) [place] # (Auto) Eos # (Auto) Seg Neutrophils % Seg Neuts % (Manual) Lymphocytes % (Manual) Eosinophils % (Manual) Seg Neutrophils # Seg Neutrophils # Man Lymphocytes # (Manual) Eosinophils # (Manual) PT Activated Coag Time Heparin Anti-Xa Level ABG pH ABG pO2 ABG HCO3 ABG O2 Saturation ABG Base Excess ABG Hemoglobin Oxyhemoglobin Sodium Potassium 3.5 L Chloride Carbon Dioxide BUN 30 H Creatinine 2.3 H Glucose 289 H POC Glucose 271 H 302 H Lactic Acid Calcium 7.8 L Phosphorus Magnesium Direct Bilirubin AST 46 H ALT 158 H Alkaline Phosphatase 138 H Total Creatine Kinase CK-MB (CK-2) CK-MB (CK-2) Rel Index Troponin T C-Reactive Protein Total Protein 6.2 L Albumin 2.6 L Triglycerides 230 H Ur Specific [place] Urine Blood Urine WBC (Auto) Urine Creatinine Digoxin Coronavirus (PCR) 04/23/22 04/23/22 04/23/22 18:07 18:20 21:14 WBC RBC Hgb Hct RDW Plt Count Lymph % (Auto) [place] % (Auto) Eos % (Auto) Lymph # (Auto) [place] # (Auto) Eos # (Auto) Seg Neutrophils % Seg Neuts % (Manual) Lymphocytes % (Manual) Eosinophils % (Manual) Seg Neutrophils # Seg Neutrophils # Man Lymphocytes # (Manual) Eosinophils # (Manual) PT Activated Coag Time Heparin Anti-Xa Level ABG pH ABG pO2 ABG HCO3 31.6 H ABG O2 Saturation ABG Base Excess 4.8 H ABG Hemoglobin 18.3 H Oxyhemoglobin 94.8 L Sodium Potassium Chloride Carbon Dioxide BUN Creatinine Glucose POC Glucose 228 H 175 H Lactic Acid Calcium Phosphorus Magnesium Direct Bilirubin AST ALT Alkaline Phosphatase Total Creatine Kinase CK-MB (CK-2) CK-MB (CK-2) Rel Index Troponin T C-Reactive Protein Total Protein Albumin Triglycerides Ur Specific [place] Urine Blood Urine WBC (Auto) Urine Creatinine Digoxin Coronavirus (PCR) 04/23/22 04/24/22 04/24/22 23:24 04:35 04:47 WBC RBC Hgb Hct RDW Plt Count Lymph % (Auto) [place] % (Auto) Eos % (Auto) Lymph # (Auto) [place] # (Auto) Eos # (Auto) Seg Neutrophils % Seg Neuts % (Manual) Lymphocytes % (Manual) Eosinophils % (Manual) Seg Neutrophils # Seg Neutrophils # Man Lymphocytes # (Manual) Eosinophils # (Manual) PT Activated Coag Time Heparin Anti-Xa Level ABG pH ABG pO2 ABG HCO3 31.5 H ABG O2 Saturation ABG Base Excess 6.1 H ABG Hemoglobin 10.3 L Oxyhemoglobin Sodium Potassium Chloride Carbon Dioxide BUN Creatinine Glucose POC Glucose 168 H 177 H Lactic Acid Calcium Phosphorus Magnesium Direct Bilirubin AST ALT Alkaline Phosphatase Total Creatine Kinase CK-MB (CK-2) CK-MB (CK-2) Rel Index Troponin T C-Reactive Protein Total Protein Albumin Triglycerides Ur Specific [place] Urine Blood Urine WBC (Auto) Urine Creatinine Digoxin Coronavirus (PCR) 04/24/22 04/24/22 04/24/22 06:00 06:00 12:45 WBC 14.0 H RBC 3.57 L Hgb 10.1 L Hct 31.9 L RDW Plt Count Lymph % (Auto) 4.7 L [place] % (Auto) 8.8 H Eos % (Auto) 6.0 H Lymph # (Auto) 0.7 L [place] # (Auto) 1.2 H Eos # (Auto) 0.8 H Seg Neutrophils % 80.5 H Seg Neuts % (Manual) Lymphocytes % (Manual) Eosinophils % (Manual) Seg Neutrophils # 11.3 H Seg Neutrophils # Man Lymphocytes # (Manual) Eosinophils # (Manual) PT Activated Coag Time Heparin Anti-Xa Level ABG pH ABG pO2 ABG HCO3 ABG O2 Saturation ABG Base Excess ABG Hemoglobin Oxyhemoglobin Sodium Potassium 3.4 L Chloride Carbon Dioxide BUN 25 H Creatinine 1.8 H Glucose 218 H POC Glucose 227 H Lactic Acid Calcium 8.2 L Phosphorus Magnesium Direct Bilirubin AST ALT 99 H Alkaline Phosphatase 141 H Total Creatine Kinase CK-MB (CK-2) CK-MB (CK-2) Rel Index Troponin T C-Reactive Protein Total Protein 6.2 L Albumin 2.2 L Triglycerides Ur Specific [place] Urine Blood Urine WBC (Auto) Urine Creatinine Digoxin Coronavirus (PCR) 04/24/22 04/24/22 04/24/22 17:57 21:19 23:24 WBC RBC Hgb Hct RDW Plt Count Lymph % (Auto) [place] % (Auto) Eos % (Auto) Lymph # (Auto) [place] # (Auto) Eos # (Auto) Seg Neutrophils % Seg Neuts % (Manual) Lymphocytes % (Manual) Eosinophils % (Manual) Seg Neutrophils # Seg Neutrophils # Man Lymphocytes # (Manual) Eosinophils # (Manual) PT Activated Coag Time Heparin Anti-Xa Level ABG pH ABG pO2 ABG HCO3 ABG O2 Saturation ABG Base Excess ABG Hemoglobin Oxyhemoglobin Sodium Potassium Chloride Carbon Dioxide BUN Creatinine Glucose POC Glucose 207 H 186 H 203 H Lactic Acid Calcium Phosphorus Magnesium Direct Bilirubin AST ALT Alkaline Phosphatase Total Creatine Kinase CK-MB (CK-2) CK-MB (CK-2) Rel Index Troponin T C-Reactive Protein Total Protein Albumin Triglycerides Ur Specific [place] Urine Blood Urine WBC (Auto) Urine Creatinine Digoxin Coronavirus (PCR) 04/25/22 04/25/22 04/25/22 03:30 03:30 04:38 WBC 19.7 H RBC 3.39 L Hgb 9.8 L Hct 30.2 L RDW 15.6 H Plt Count Lymph % (Auto) 4.7 L [place] % (Auto) Eos % (Auto) 5.0 H Lymph # (Auto) 0.9 L [place] # (Auto) 1.2 H Eos # (Auto) 1.0 H Seg Neutrophils % 84.0 H Seg Neuts % (Manual) Lymphocytes % (Manual) Eosinophils % (Manual) Seg Neutrophils # 16.5 H Seg Neutrophils # Man Lymphocytes # (Manual) Eosinophils # (Manual) PT Activated Coag Time Heparin Anti-Xa Level ABG pH ABG pO2 ABG HCO3 ABG O2 Saturation ABG Base Excess ABG Hemoglobin Oxyhemoglobin Sodium 151 H Potassium 3.5 L Chloride 108.6 H Carbon Dioxide 31 H BUN 27 H Creatinine 1.9 H Glucose 144 H POC Glucose 135 H Lactic Acid Calcium 8.3 L Phosphorus Magnesium Direct Bilirubin AST ALT Alkaline Phosphatase Total Creatine Kinase CK-MB (CK-2) CK-MB (CK-2) Rel Index Troponin T C-Reactive Protein Total Protein Albumin Triglycerides Ur Specific [place] Urine Blood Urine WBC (Auto) Urine Creatinine Digoxin Coronavirus (PCR) 04/25/22 04/25/22 04/25/22 05:09 12:12 17:58 WBC RBC Hgb Hct RDW Plt Count Lymph % (Auto) [place] % (Auto) Eos % (Auto) Lymph # (Auto) [place] # (Auto) Eos # (Auto) Seg Neutrophils % Seg Neuts % (Manual) Lymphocytes % (Manual) Eosinophils % (Manual) Seg Neutrophils # Seg Neutrophils # Man Lymphocytes # (Manual) Eosinophils # (Manual) PT Activated Coag Time Heparin Anti-Xa Level ABG pH ABG pO2 ABG HCO3 32.2 H ABG O2 Saturation ABG Base Excess 6.7 H ABG Hemoglobin 9.9 L Oxyhemoglobin 94.9 L Sodium Potassium Chloride Carbon Dioxide BUN Creatinine Glucose POC Glucose 218 H 229 H Lactic Acid Calcium Phosphorus Magnesium Direct Bilirubin AST ALT Alkaline Phosphatase Total Creatine Kinase CK-MB (CK-2) CK-MB (CK-2) Rel Index Troponin T C-Reactive Protein Total Protein Albumin Triglycerides Ur Specific [place] Urine Blood Urine WBC (Auto) Urine Creatinine Digoxin Coronavirus (PCR) 04/25/22 04/25/22 04/26/22 18:00 23:48 05:20 WBC RBC Hgb 9.4 L Hct 30.1 L RDW Plt Count Lymph % (Auto) [place] % (Auto) Eos % (Auto) Lymph # (Auto) [place] # (Auto) Eos # (Auto) Seg Neutrophils % Seg Neuts % (Manual) Lymphocytes % (Manual) Eosinophils % (Manual) Seg Neutrophils # Seg Neutrophils # Man Lymphocytes # (Manual) Eosinophils # (Manual) PT Activated Coag Time Heparin Anti-Xa Level ABG pH ABG pO2 ABG HCO3 32.4 H ABG O2 Saturation ABG Base Excess 6.8 H ABG Hemoglobin 9.5 L Oxyhemoglobin Sodium Potassium Chloride Carbon Dioxide BUN Creatinine Glucose POC Glucose 214 H Lactic Acid Calcium Phosphorus Magnesium Direct Bilirubin AST ALT Alkaline Phosphatase Total Creatine Kinase CK-MB (CK-2) CK-MB (CK-2) Rel Index Troponin T C-Reactive Protein Total Protein Albumin Triglycerides Ur Specific [place] Urine Blood Urine WBC (Auto) Urine Creatinine Digoxin Coronavirus (PCR) 04/26/22 04/26/22 04/26/22 05:20 05:51 11:39 WBC RBC Hgb Hct RDW Plt Count Lymph % (Auto) [place] % (Auto) Eos % (Auto) Lymph # (Auto) [place] # (Auto) Eos # (Auto) Seg Neutrophils % Seg Neuts % (Manual) Lymphocytes % (Manual) Eosinophils % (Manual) Seg Neutrophils # Seg Neutrophils # Man Lymphocytes # (Manual) Eosinophils # (Manual) PT Activated Coag Time Heparin Anti-Xa Level ABG pH ABG pO2 ABG HCO3 ABG O2 Saturation ABG Base Excess ABG Hemoglobin Oxyhemoglobin Sodium 147 H Potassium Chloride Carbon Dioxide 33 H BUN 27 H Creatinine 1.6 H Glucose 221 H POC Glucose 227 H 263 H Lactic Acid Calcium Phosphorus Magnesium Direct Bilirubin AST ALT Alkaline Phosphatase Total Creatine Kinase CK-MB (CK-2) CK-MB (CK-2) Rel Index Troponin T C-Reactive Protein Total Protein Albumin Triglycerides Ur Specific [place] Urine Blood Urine WBC (Auto) Urine Creatinine Digoxin Coronavirus (PCR) 04/26/22 04/26/22 04/27/22 16:22 23:14 04:00 WBC RBC Hgb Hct RDW Plt Count Lymph % (Auto) [place] % (Auto) Eos % (Auto) Lymph # (Auto) [place] # (Auto) Eos # (Auto) Seg Neutrophils % Seg Neuts % (Manual) Lymphocytes % (Manual) Eosinophils % (Manual) Seg Neutrophils # Seg Neutrophils # Man Lymphocytes # (Manual) Eosinophils # (Manual) PT Activated Coag Time Heparin Anti-Xa Level ABG pH ABG pO2 ABG HCO3 ABG O2 Saturation ABG Base Excess ABG Hemoglobin Oxyhemoglobin Sodium Potassium Chloride Carbon Dioxide BUN 23 H Creatinine 1.4 H Glucose 231 H POC Glucose 250 H 221 H Lactic Acid Calcium 8.3 L Phosphorus Magnesium Direct Bilirubin AST 45 H ALT Alkaline Phosphatase 180 H Total Creatine Kinase CK-MB (CK-2) CK-MB (CK-2) Rel Index Troponin T C-Reactive Protein Total Protein Albumin 2.1 L Triglycerides Ur Specific [place] Urine Blood Urine WBC (Auto) Urine Creatinine Digoxin Coronavirus (PCR) 04/27/22 04/27/2204/27/22 04:00 05:25 11:08 WBC 20.1 H RBC 3.28 L Hgb 9.5 L Hct 29.3 L RDW Plt Count Lymph % (Auto) 5.9 L [place] % (Auto) 8.0 H Eos % (Auto) 5.5 H Lymph # (Auto) [place] # (Auto) 1.6 H Eos # (Auto) 1.1 H Seg Neutrophils % 80.3 H Seg Neuts % (Manual) Lymphocytes % (Manual) Eosinophils % (Manual) Seg Neutrophils # 16.2 H Seg Neutrophils # Man Lymphocytes # (Manual) Eosinophils # (Manual) PT Activated Coag Time Heparin Anti-Xa Level ABG pH ABG pO2 ABG HCO3 ABG O2 Saturation ABG Base Excess ABG Hemoglobin Oxyhemoglobin Sodium Potassium Chloride Carbon Dioxide BUN Creatinine Glucose POC Glucose 234 H 224 H Lactic Acid Calcium Phosphorus Magnesium Direct Bilirubin AST ALT Alkaline Phosphatase Total Creatine Kinase CK-MB (CK-2) CK-MB (CK-2) Rel Index Troponin T C-Reactive Protein Total Protein Albumin Triglycerides Ur Specific [place] Urine Blood Urine WBC (Auto) Urine Creatinine Digoxin Coronavirus (PCR) 04/28/22 04/28/22 04/28/22 00:01 05:25 05:28 WBC 16.1 H RBC 3.32 L Hgb 9.4 L Hct 29.9 L RDW Plt Count Lymph % (Auto) [place] % (Auto) Eos % (Auto) Lymph # (Auto) [place] # (Auto) Eos # (Auto) Seg Neutrophils % Seg Neuts % (Manual) Lymphocytes % (Manual) Eosinophils % (Manual) Seg Neutrophils # Seg Neutrophils # Man Lymphocytes # (Manual) Eosinophils # (Manual) PT Activated Coag Time Heparin Anti-Xa Level ABG pH 7.489 H ABG pO2 72.5 L ABG HCO3 27.8 H ABG O2 Saturation ABG Base Excess 4.3 H ABG Hemoglobin 9.2 L Oxyhemoglobin 94.6 L Sodium Potassium Chloride Carbon Dioxide BUN Creatinine Glucose POC Glucose 189 H Lactic Acid Calcium Phosphorus Magnesium Direct Bilirubin AST ALT Alkaline Phosphatase Total Creatine Kinase CK-MB (CK-2) CK-MB (CK-2) Rel Index Troponin T C-Reactive Protein Total Protein Albumin Triglycerides Ur Specific [place] Urine Blood Urine WBC (Auto) Urine Creatinine Digoxin Coronavirus (PCR) 04/28/22 04/28/22 04/28/22 05:28 05:44 08:20 WBC RBC Hgb Hct RDW Plt Count Lymph % (Auto) [place] % (Auto) Eos % (Auto) Lymph # (Auto) [place] # (Auto) Eos # (Auto) Seg Neutrophils % Seg Neuts % (Manual) Lymphocytes % (Manual) Eosinophils % (Manual) Seg Neutrophils # Seg Neutrophils # Man Lymphocytes # (Manual) Eosinophils # (Manual) PT Activated Coag Time Heparin Anti-Xa Level ABG pH ABG pO2 ABG HCO3 ABG O2 Saturation ABG Base Excess ABG Hemoglobin Oxyhemoglobin Sodium Potassium Chloride Carbon Dioxide BUN 22 H Creatinine 1.4 H Glucose 179 H POC Glucose 181 H Lactic Acid Calcium 8.2 L Phosphorus Magnesium Direct Bilirubin AST ALT Alkaline Phosphatase Total Creatine Kinase CK-MB (CK-2) CK-MB (CK-2) Rel Index Troponin T C-Reactive Protein 15.30 H Total Protein Albumin Triglycerides Ur Specific [place] Urine Blood Urine WBC (Auto) Urine Creatinine Digoxin Coronavirus (PCR) 04/28/22 04/28/22 04/28/22 08:35 11:13 12:07 WBC RBC Hgb Hct RDW Plt Count Lymph % (Auto) [place] % (Auto) Eos % (Auto) Lymph # (Auto) [place] # (Auto) Eos # (Auto) Seg Neutrophils % Seg Neuts % (Manual) Lymphocytes % (Manual) Eosinophils % (Manual) Seg Neutrophils # Seg Neutrophils # Man Lymphocytes # (Manual) Eosinophils # (Manual) PT Activated Coag Time Heparin Anti-Xa Level ABG pH 7.203 L ABG pO2 43.7 L ABG HCO3 27.7 H ABG O2 Saturation 63.0 L ABG Base Excess ABG Hemoglobin 10.6 L Oxyhemoglobin 61.6 L Sodium Potassium Chloride Carbon Dioxide BUN Creatinine Glucose POC Glucose 131 H Lactic Acid Calcium Phosphorus Magnesium Direct Bilirubin AST ALT Alkaline Phosphatase Total Creatine Kinase CK-MB (CK-2) CK-MB (CK-2) Rel Index Troponin T C-Reactive Protein Total Protein Albumin Triglycerides Ur Specific [place] 1.000 L Urine Blood Urine WBC (Auto) 21.0 H Urine Creatinine Digoxin Coronavirus (PCR) 04/28/22 04/28/22 04/29/22 16:20 16:27 00:32 WBC RBC Hgb Hct RDW Plt Count Lymph % (Auto) [place] % (Auto) Eos % (Auto) Lymph # (Auto) [place] # (Auto) Eos # (Auto) Seg Neutrophils % Seg Neuts % (Manual) Lymphocytes % (Manual) Eosinophils % (Manual) Seg Neutrophils # Seg Neutrophils # Man Lymphocytes # (Manual) Eosinophils # (Manual) PT Activated Coag Time Heparin Anti-Xa Level ABG pH 7.461 H ABG pO2 99.9 H ABG HCO3 28.0 H ABG O2 Saturation ABG Base Excess 3.9 H ABG Hemoglobin 7.7 L Oxyhemoglobin Sodium Potassium Chloride Carbon Dioxide BUN Creatinine Glucose POC Glucose 136 H 205 H Lactic Acid Calcium Phosphorus Magnesium Direct Bilirubin AST ALT Alkaline Phosphatase Total Creatine Kinase CK-MB (CK-2) CK-MB (CK-2) Rel Index Troponin T C-Reactive Protein Total Protein Albumin Triglycerides Ur Specific [place] Urine Blood Urine WBC (Auto) Urine Creatinine Digoxin Coronavirus (PCR) 04/29/22 04/29/22 04/29/22 02:35 03:20 04:20 WBC 19.8 H RBC 3.17 L Hgb 9.0 L Hct 27.9 L RDW Plt Count 481 H Lymph % (Auto) 5.7 L [place] % (Auto) 7.8 H Eos % (Auto) Lymph # (Auto) 1.1 L [place] # (Auto) 1.5 H Eos # (Auto) 0.8 H Seg Neutrophils % 82.0 H Seg Neuts % (Manual) Lymphocytes % (Manual) Eosinophils % (Manual) Seg Neutrophils # 16.3 H Seg Neutrophils # Man Lymphocytes # (Manual) Eosinophils # (Manual) PT Activated Coag Time Heparin Anti-Xa Level ABG pH 7.487 H ABG pO2 176.1 H ABG HCO3 27.6 H ABG O2 Saturation 99.2 H ABG Base Excess 4.0 H ABG Hemoglobin 9.6 L Oxyhemoglobin Sodium Potassium Chloride Carbon Dioxide BUN Creatinine Glucose POC Glucose 223 H Lactic Acid Calcium Phosphorus Magnesium Direct Bilirubin AST ALT Alkaline Phosphatase Total Creatine Kinase CK-MB (CK-2) CK-MB (CK-2) Rel Index Troponin T C-Reactive Protein Total Protein Albumin Triglycerides Ur Specific [place] Urine Blood Urine WBC (Auto) Urine Creatinine Digoxin Coronavirus (PCR) 04/29/22 04/29/22 04/29/22 04:20 05:43 09:38 WBC RBC Hgb Hct RDW Plt Count Lymph % (Auto) [place] % (Auto) Eos % (Auto) Lymph # (Auto) [place] # (Auto) Eos # (Auto) Seg Neutrophils % Seg Neuts % (Manual) Lymphocytes % (Manual) Eosinophils % (Manual) Seg Neutrophils # Seg Neutrophils # Man Lymphocytes # (Manual) Eosinophils # (Manual) PT Activated Coag Time Heparin Anti-Xa Level ABG pH ABG pO2 ABG HCO3 ABG O2 Saturation ABG Base Excess ABG Hemoglobin Oxyhemoglobin Sodium Potassium Chloride Carbon Dioxide BUN 30 H Creatinine 1.6 H Glucose 236 H POC Glucose 202 H Lactic Acid Calcium 8.1 L Phosphorus Magnesium Direct Bilirubin AST 143 H ALT 105 H Alkaline Phosphatase 210 H Total Creatine Kinase CK-MB (CK-2) CK-MB (CK-2) Rel Index Troponin T C-Reactive Protein Total Protein 6.2 L Albumin 2.0 L Triglycerides Ur Specific [place] Urine Blood Urine WBC (Auto) Urine Creatinine Digoxin Coronavirus (PCR) Positive A 04/29/22 04/29/22 04/29/22 12:08 18:14 21:11 WBC RBC Hgb Hct RDW Plt Count Lymph % (Auto) [place] % (Auto) Eos % (Auto) Lymph # (Auto) [place] # (Auto) Eos # (Auto) Seg Neutrophils % Seg Neuts % (Manual) Lymphocytes % (Manual) Eosinophils % (Manual) Seg Neutrophils # Seg Neutrophils # Man Lymphocytes # (Manual) Eosinophils # (Manual) PT Activated Coag Time Heparin Anti-Xa Level ABG pH ABG pO2 ABG HCO3 ABG O2 Saturation ABG Base Excess ABG Hemoglobin Oxyhemoglobin Sodium Potassium Chloride Carbon Dioxide BUN Creatinine Glucose POC Glucose 152 H 151 H 140 H Lactic Acid Calcium Phosphorus Magnesium Direct Bilirubin AST ALT Alkaline Phosphatase Total Creatine Kinase CK-MB (CK-2) CK-MB (CK-2) Rel Index Troponin T C-Reactive Protein Total Protein Albumin Triglycerides Ur Specific [place] Urine Blood Urine WBC (Auto) Urine Creatinine Digoxin Coronavirus (PCR) 04/29/22 04/30/22 04/30/22 23:58 04:25 04:25 WBC 13.3 H RBC 2.81 L Hgb 8.0 L Hct 24.4 L RDW Plt Count 441 H Lymph % (Auto) [place] % (Auto) Eos % (Auto) Lymph # (Auto) [place] # (Auto) Eos # (Auto) Seg Neutrophils % Seg Neuts % (Manual) Lymphocytes % (Manual) Eosinophils % (Manual) Seg Neutrophils # Seg Neutrophils # Man Lymphocytes # (Manual) Eosinophils # (Manual) PT Activated Coag Time Heparin Anti-Xa Level ABG pH ABG pO2 ABG HCO3 ABG O2 Saturation ABG Base Excess ABG Hemoglobin Oxyhemoglobin Sodium Potassium 3.2 L Chloride Carbon Dioxide BUN 26 H Creatinine 1.5 H Glucose 105 H POC Glucose 135 H Lactic Acid Calcium 8.0 L Phosphorus Magnesium Direct Bilirubin 0.3 H AST 138 H ALT 94 H Alkaline Phosphatase 172 H Total Creatine Kinase CK-MB (CK-2) CK-MB (CK-2) Rel Index Troponin T C-Reactive Protein Total Protein 5.5 L Albumin 2.0 L Triglycerides Ur Specific [place] Urine Blood Urine WBC (Auto) Urine Creatinine Digoxin Coronavirus (PCR) 04/30/22 04/30/22 04/30/22 04:25 05:20 10:19 WBC RBC Hgb Hct RDW Plt Count Lymph % (Auto) [place] % (Auto) Eos % (Auto) Lymph # (Auto) [place] # (Auto) Eos # (Auto) Seg Neutrophils % Seg Neuts % (Manual) Lymphocytes % (Manual) Eosinophils % (Manual) Seg Neutrophils # Seg Neutrophils # Man Lymphocytes # (Manual) Eosinophils # (Manual) PT Activated Coag Time Heparin Anti-Xa Level ABG pH 7.514 H ABG pO2 73.4 L ABG HCO3 28.1 H ABG O2 Saturation ABG Base Excess 4.8 H ABG Hemoglobin 7.8 L Oxyhemoglobin 94.9 L Sodium Potassium 3.3 L Chloride Carbon Dioxide BUN 26 H Creatinine 1.4 H Glucose 108 H POC Glucose Lactic Acid Calcium 7.5 L Phosphorus Magnesium Direct Bilirubin AST 183 H ALT 112 H Alkaline Phosphatase 175 H Total Creatine Kinase CK-MB (CK-2) CK-MB (CK-2) Rel Index Troponin T C-Reactive Protein Total Protein 5.0 L Albumin 2.1 L Triglycerides Ur Specific [place] Urine Blood Urine WBC (Auto) Urine Creatinine Digoxin 0.6 L Coronavirus (PCR) Chest x-ray: image reviewed (persistent basilar predominant infiltrates / interstitial edema) Allied health notes reviewed: nursing
[2022-04-30] MEDS ORDERED: FUROSEMIDE 40 MG/4 ML INJ IV SCH (15:00)
[2022-04-30] MEDS: DIGOXIN 0.125 MG TAB FEEDTUBE SCH (17:39)
--- NOTE | 2022-04-30 19:16 | Ultrasound Report ---
LIMITED RUQ ABDOMINAL ULTRASOUND INDICATION: sepsis, elevated LFTs. COMPARISON: No relevant prior imaging study available. FINDINGS: Pancreas: Visualized portions show no significant abnormality. Abdominal Aorta: No significant abnormality. IVC: No significant abnormality. Liver: The liver measures 21 cm in length. Diffusely increased hepatic echogenicity which typically i ndicates hepatic steatosis.. Normal hepatopedal blood flow in the main portal vein. Gallbladder: No significant abnormality. Bile ducts: No significant abnormality. Common bile duct measures 3 mm. Right kidney: No significant abnormality visualized.. Free fluid: None. Additional Findings: None. IMPRESSION: 1. Hepatomegaly with findings suggesting hepatic steatosis. Signer Name: Werner Beckford MD Signed: 04/30/2022 7:12 PM Workstation Name: [id number]
[2022-04-30] MEDS: ASCORBIC ACID 500 MG TAB PO SCH (22:40)
[2022-04-30] MEDS: DOXAZOSIN 1 MG TAB PO SCH (22:40)
[2022-04-30] MEDS: ZINC SULFATE 220 MG CAP PO SCH (22:40)
[2022-04-30] MEDS: fentaNYL 100 MCG/2 ML INJ IV PRN (22:41)
[2022-05-01] MEDS: CEFEPIME/NS 2 GM/100 ML 2 GM/100 ML BAG IV SCH ×3 (02:17→17:23)
[2022-05-01] MEDS: INSULIN LISPRO 100 UNIT/ML SUB-Q SCH ×6 (02:18→17:24)
[2022-05-01 04:54] LABS: Hematocrit 26.7 % (35.5-45.6); Hemoglobin 8.7 gm/dl (11.8-15.2); Mean Corpuscular HGB Conc 33 % (32-34); Mean Corpuscular Volume 88 fl (84-94); Platelet Count 566 K/mm3 (140-440); Red Blood Count 3.03 M/mm3 (3.65-5.03); Red Cell Distribution Width 14.9 % (13.2-15.2)
[2022-05-01 05:12] LABS: Albumin 2.1 g/dL (3.9-5)
[2022-05-01] MEDS: dexAMETHasone 4 MG/ML VIAL IV SCH (09:03)
[2022-05-01] MEDS: ASPIRIN 81 MG TAB CHEW FEEDTUBE SCH (09:03)
[2022-05-01] MEDS: HEPARIN 5,000 UNIT/1 ML VIAL SUB-Q SCH ×2 (09:04→22:11)
[2022-05-01] MEDS: SENNOSIDES/DOCUSATE SODIUM 8.6/50 MG TAB FEEDTUBE SCH ×2 (09:05→22:11)
[2022-05-01] MEDS: FAMOTIDINE 20 MG TAB FEEDTUBE SCH ×2 (09:05→22:14)
[2022-05-01] MEDS: INSULIN GLARGINE 100 UNITS/ML SUB-Q SCH ×2 (09:09→22:11)
[2022-05-01] MEDS: VANCOMYCIN 1,750 MG in SODIUM CHLORIDE 0.9% 500 ML 500 ML IV SCH (09:09)
[2022-05-01] MEDS: DOCUSATE SODIUM 100 MG/10 ML ORAL LIQD FEEDTUBE SCH ×2 (09:10→22:14)
--- NOTE | 2022-05-01 09:16 | Progress Note ---
Assessment and Plan 1. Acute kidney injury: Vasomotor VINCENT in the setting of shock. IV contrast on 04/17. Renal US negative. Monitor renal function. Creatinine level is better. Avoid nephrotoxic agents. Meds dosage based on GFR. 2. FEN: Hypernatremia, improved. Anion-gap metabolic acidosis, improved, monitor. Replete lytes as needed. Monitor lytes and volume status. 3. S/p V.fib Cardiac arrest, POA: Followed by Cards. Monitor. 4. Shock: Currently off pressors. Monitor. 5. A.fib: On Digoxin. Followed by Cards. Monitor. 6. Acute Hypoxemic Respiratory Failure: Bilateral Pneumonia- Probable Aspiration. CTA negative for PE, reveals bilateral airspace disease, greater in the Upper lobes. Intubated in the field during code on 04/17. Self extubated and Re-intubated 04/28. Monitor. 7. Elevated ALT & AST: Monitor. 8. Acute metabolic encephalopathy, POA: Monitor. 9. Rhabdomyolysis: Improved. Subjective: Patient was seen and examined at the bedside. Examination: General appearance: well-developed, appears stated age, obese, intubated, on vent HEENT: atraumatic, no icterus, pupils equal Neck: trachea midline Respiratory: coarse breath sounds bilaterally Heart: S1S2, no murmur Abdomen: soft, bowel sounds heard, NT Integumentary: no obvious rash Neurologic: opens eyes, moving extremities Ext: no edema Subjective Date of service: 05/01/22 Principal diagnosis: AHRF; AMS; Pneumonia; Shock; DM II; Severe Metabolic Acidosis Objective - Vital Signs Vital signs: Vital Signs - 12hr 04/30/22 04/30/22 04/30/22 21:31 21:45 22:01 Temperature Pulse Rate 90 96 H Pulse Rate [ From Monitor] Respiratory 16 32 H Rate Blood Pressure 116/65 116/65 166/76 O2 Sat by Pulse 98 98 97 Oximetry 04/30/22 04/30/22 04/30/22 22:15 22:30 22:40 Temperature Pulse Rate 84 84 88 Pulse Rate [ From Monitor] Respiratory 29 H 22 Rate Blood Pressure 166/76 127/68 123/51 O2 Sat by Pulse 94 96 Oximetry 04/30/22 04/30/22 04/30/22 22:45 23:01 23:15 Temperature Pulse Rate 89 90 98 H Pulse Rate [ From Monitor] Respiratory 16 29 H Rate Blood Pressure 127/68 132/81 132/81 O2 Sat by Pulse 96 94 96 Oximetry 04/30/22 04/30/22 04/30/22 23:25 23:31 23:45 Temperature Pulse Rate 81 94 H 82 Pulse Rate [ From Monitor] Respiratory 11 L 26 H Rate Blood Pressure 132/81 129/72 129/72 O2 Sat by Pulse 96 97 98 Oximetry 05/01/22 05/01/22 05/01/22 00:00 00:01 00:15 Temperature Pulse Rate 81 88 82 Pulse Rate [ 136 H From Monitor] Respiratory 27 H 17 15 Rate Blood Pressure 122/67 129/72 O2 Sat by Pulse 97 100 99 Oximetry 05/01/22 05/01/22 05/01/22 00:31 00:39 00:45 Temperature 100.7 F H Pulse Rate 88 95 H Pulse Rate [ From Monitor] Respiratory 20 12 Rate Blood Pressure 132/66 132/66 O2 Sat by Pulse 97 96 Oximetry 05/01/22 05/01/22 05/01/22 01:01 01:15 01:30 Temperature Pulse Rate 82 86 83 Pulse Rate [ From Monitor] Respiratory 22 16 20 Rate Blood Pressure 126/68 126/68 123/69 O2 Sat by Pulse 98 99 98 Oximetry 05/01/22 05/01/22 05/01/22 01:45 02:00 02:15 Temperature Pulse Rate 78 93 H 93 H Pulse Rate [ From Monitor] Respiratory 21 14 20 Rate Blood Pressure 123/69 123/69 127/68 O2 Sat by Pulse 97 92 100 Oximetry 05/01/22 05/01/22 05/01/22 02:30 02:45 03:00 Temperature Pulse Rate 85 88 79 Pulse Rate [ From Monitor] Respiratory 19 22 18 Rate Blood Pressure 131/59 131/59 131/59 O2 Sat by Pulse 98 99 99 Oximetry 05/01/22 05/01/22 05/01/22 03:15 03:19 03:30 Temperature 99.8 F H Pulse Rate 81 80 Pulse Rate [ From Monitor] Respiratory 19 20 Rate Blood Pressure 131/59 104/62 O2 Sat by Pulse 100 99 Oximetry 05/01/22 05/01/22 05/01/22 03:45 04:00 04:15 Temperature Pulse Rate 77 86 75 Pulse Rate [ From Monitor] Respiratory 20 13 22 Rate Blood Pressure 104/62 117/76 104/62 O2 Sat by Pulse 99 97 93 Oximetry 05/01/22 05/01/22 05/01/22 04:30 04:43 04:45 Temperature Pulse Rate 86 86 89 Pulse Rate [ From Monitor] Respiratory 26 H 27 H Rate Blood Pressure 123/73 100/47 123/73 O2 Sat by Pulse 97 94 94 Oximetry 05/01/22 05/01/22 05/01/22 05:01 05:15 05:31 Temperature Pulse Rate 84 81 79 Pulse Rate [ From Monitor] Respiratory 21 22 22 Rate Blood Pressure 112/67 123/73 112/68 O2 Sat by Pulse 93 90 95 Oximetry 05/01/22 05/01/22 05/01/22 05:45 06:00 06:15 Temperature Pulse Rate 82 78 83 Pulse Rate [ From Monitor] Respiratory 22 17 23 Rate Blood Pressure 112/68 108/65 112/68 O2 Sat by Pulse 93 95 96 Oximetry 05/01/22 05/01/22 05/01/22 06:31 06:45 07:01 Temperature Pulse Rate 85 84 78 Pulse Rate [ From Monitor] Respiratory 26 H 10 L 7 L Rate Blood Pressure 112/77 112/77 112/77 O2 Sat by Pulse 97 100 97 Oximetry 05/01/22 05/01/22 05/01/22 07:15 07:31 07:45 Temperature Pulse Rate 83 83 88 Pulse Rate [ From Monitor] Respiratory 20 14 8 L Rate Blood Pressure 112/77 112/77 112/77 O2 Sat by Pulse 98 97 99 Oximetry 05/01/22 05/01/22 05/01/22 08:00 08:15 08:31 Temperature Pulse Rate 84 78 79 Pulse Rate [ 75 From Monitor] Respiratory 17 20 20 Rate Blood Pressure 112/77 112/77 112/77 O2 Sat by Pulse 98 98 97 Oximetry 05/01/22 08:45 Temperature Pulse Rate 71 Pulse Rate [ From Monitor] Respiratory 20 Rate Blood Pressure 95/59 O2 Sat by Pulse 98 Oximetry - Lab 05/01/22 04:44 05/01/22 04:00 Most recent lab results ABG pH 7.514 pH Units (7.350-7.450) H 04/30/22 05:20 ABG pCO2 35.6 mm Hg 04/30/22 05:20 ABG pO2 73.4 mm Hg (80.0-90.0) L 04/30/22 05:20 ABG HCO3 28.1 mmol/L (20.0-26.0) H 04/30/22 05:20 ABG O2 Saturation 96.8 % (95.0-99.0) 04/30/22 05:20 Calcium 8.0 mg/dL (8.4-10.2) L 05/01/22 04:00 Phosphorus 4.00 mg/dL (2.5-4.5) D 05/01/22 04:00 Magnesium 1.90 mg/dL (1.7-2.3) 05/01/22 04:00 Urine Creatinine 90.9 mg/dL (0.1-20.0) H 04/19/22 02:08 Urine Sodium 54 mmol/L 04/19/22 02:08 Medications & Allergies - Medications Allergies/Adverse Reactions: Allergies lisinopril Allergy (Verified 04/27/22 06:02) Angioedema Home Medications: Home Medications Medication Instructions Recorded Confirmed Last Taken Type AtorvaSTATin 40 mg PO QHS 04/22/22 04/22/22 Unknown History Humulin N 22 units SQ QHS 04/22/22 04/22/22 Unknown History amLODIPine 10 mg PO QAM 04/22/22 04/22/22 Unknown History glipiZIDE 20 mg PO BID 04/22/22 04/22/22 Unknown History metFORMIN 850 mg PO TID 04/22/22 04/22/22 Unknown History Active Medications: Generic Name Dose Route Start Last Admin Trade Name Freq PRN Reason Stop Dose Admin Acetaminophen 650 mg 04/17/22 19:48 04/28/22 21:38 Acetaminophen 325 Mg Tab PO 650 mg Q6H PRN Administration Pain MILD(1-3)/Fever >100.5/CHE Albuterol 2.5 mg 04/17/22 19:48 Albuterol 2.5 Mg/3 Ml Nebu IH Q3HRT PRN Shortness Of Breath Ascorbic Acid 500 mg 04/30/22 22:00 04/30/22 22:40 Ascorbic Acid 500 Mg Tab PO 500 mg BID FLACO Administration Aspirin 81 mg 04/20/22 12:00 05/01/22 09:03 Aspirin 81 Mg Tab Chew FEEDTUBE 81 mg QDAY FLACO Administration Atorvastatin Calcium 20 mg 04/20/22 22:00 04/29/22 21:38 Atorvastatin 20 Mg Tab FEEDTUBE 20 mg QHS FLACO Administration Dexamethasone 8 mg 04/30/22 10:00 05/01/22 09:03 Dexamethasone 4 Mg/Ml Vial IV 05/09/22 10:01 8 mg DAILY FLACO Administration Dextrose 0 ml 04/17/22 23:46 Dextrose 50% In Water (25gm) 50 Ml Syringe IV Q30MIN PRN Hypoglycemia Protocol Digoxin 0.125 mg 04/30/22 17:00 04/30/22 17:39 Digoxin 0.125 Mg Tab FEEDTUBE 0.125 mg DAILY@1700 FLACO Administration Docusate Sodium 100 mg 04/27/22 11:00 05/01/22 09:10 Docusate Sodium 100 Mg/10 Ml Oral Liqd FEEDTUBE Not Given BID [facility] Doxazosin Mesylate 1 mg 04/30/22 22:00 04/30/22 22:40 Doxazosin 1 Mg Tab PO 1 mg QHS FLACO Administration Famotidine 20 mg 04/27/22 10:00 05/01/22 09:05 Famotidine 20 Mg Tab FEEDTUBE 20 mg BID FLACO Administration Fentanyl 50 mcg 04/17/22 20:22 04/30/22 22:41 Fentanyl 100 Mcg/2 Ml Inj IV 50 mcg Q10MIN PRN Administration ANALGESIA Heparin Sodium (Porcine) 5,000 unit 04/21/22 22:00 05/01/22 09:04 Heparin 5,000 Unit/1 Ml Vial SUB-Q 5,000 unit Q12HR FLACO Administration Hydrophilic Ointment 1 applic 04/18/22 06:02 04/26/22 20:29 Lip Therapy Vaseline TP 1 applic Q2HR PRN Administration Dry Lips Fentanyl Citrate 2,000 mcg in 100 mls @ 5.443 mls/hr 04/17/22 21:00 04/28/22 21:40 Fentanyl Drip Premix IV 0 mcg/kg/hr TITR FLACO 0 mls/hr Titration Protocol 1 MCG/KG/HR Propofol 1,000 mg in 100 mls @ 3.456 mls/hr 04/18/22 07:00 05/01/22 08:44 Diprivan 10 Mg/Ml IV 20 mcg/kg/min TITR FLACO 13.824 mls/hr Administration Protocol 5 MCG/KG/MIN Cefepime HCl 2 gm in 100 mls @ 200 mls/hr 04/28/22 08:00 05/01/22 08:49 Cefepime/Ns 2 Gm/100 Ml IV 200 mls/hr Q8H FLACO Administration Protocol Vancomycin HCl 1,750 mg/ 535 mls @ 333.333 mls/hr 04/28/22 10:00 05/01/22 09:09 Sodium Chloride IV 333.333 mls/hr Q24H FLACO Administration Dexmedetomidine HCl 400 mcg/ 104 mls @ 5.99 mls/hr 04/28/22 11:00 04/28/22 13:52 Sodium Chloride IV 0 mcg/kg/hr TITRATE FLACO 0 mls/hr Titration Protocol 0.2 MCG/KG/HR NORepinephrine/NS 8 MG-250 ML 8 mg in 250 mls @ 3.75 mls/hr 04/28/22 15:00 04/29/22 04:39 Norepinephrine/Ns 8 Mg-250 Ml (Double Conc) IV 4 mcg/min TITRATE FLACO 7.5 mls/hr Titration Protocol 2 MCG/MIN Remdesivir 100 mg/ Sodium 250 mls @ 500 mls/hr 05/01/22 14:00 Chloride IV 05/04/22 14:29 Q24HR@1400 FLACO Insulin Glargine 25 units 04/29/22 11:00 05/01/22 09:09 Insulin Glargine 100 Units/Ml SUB-Q 25 units BID FLACO Administration Insulin Human Lispro 0 unit 04/18/22 00:00 05/01/22 02:18 Insulin Lispro 100 Unit/Ml SUB-Q 3 unit Q6HR FLACO Administration Protocol Insulin Human Lispro 10 unit 04/29/22 12:00 05/01/22 02:18 Insulin Lispro 100 Unit/Ml SUB-Q 10 unit Q6HR FLACO Administration Multi-Ingred Cream/Lotion/Oil/Oint 1 applic 04/18/22 06:02 Mineral Oil/Petrolatum, White Ophth Oint 3.5 Gm OU Q4HR PRN Dry Eye(s) Oxycodone/Acetaminophen 1 tab 04/22/22 11:05 Oxycodone /Acetaminophen 5-325mg Tab FEEDTUBE Q6H PRN Pain, Moderate (4-6) Senna/Docusate Sodium 2 tab 04/28/22 10:00 05/01/22 09:05 Sennosides/Docusate Sodium 8.6/50 Mg Tab FEEDTUBE 2 tab BID FLACO Administration Sodium Chloride 10 ml 04/17/22 22:00 05/01/22 09:03 Sodium Chloride 0.9% 10 Ml Flush Syringe IV 10 ml BID FLACO Administration Sodium Chloride 10 ml 04/17/22 19:48 Sodium Chloride 0.9% 10 Ml Flush Syringe IV PRN PRN LINE FLUSH Sodium Chloride 50 ml 04/30/22 09:00 04/30/22 09:55 Sodium Chloride 0.9% 50 Ml Ivpb IV 05/04/22 14:01 50 ml Q24HR@1400 FLACO Administration Zinc Sulfate 220 mg 04/30/22 22:00 04/30/22 22:40 Zinc Sulfate 220 Mg Cap PO 220 mg BID FLACO Administration
[2022-05-01] MEDS: ZINC SULFATE 220 MG CAP PO SCH ×2 (10:00→22:15)
[2022-05-01] MEDS: ASCORBIC ACID 500 MG TAB PO SCH ×2 (10:00→22:12)
--- NOTE | 2022-05-01 10:15 | XRay Report ---
CHEST 1 VIEW 05/01/2022 8:05 AM INDICATION / CLINICAL INFORMATION: Follow up respiratory failure. COMPARISON: 04/30/2022 FINDINGS: SUPPORT DEVICES: Endotracheal tube and feeding tube appear unchanged. HEART / MEDIASTINUM: Unchanged LUNGS / PLEURA: Bilateral pulmonary opacities and effusions persist. No pneumothorax. ADDITIONAL FINDINGS: No significant additional findings. IMPRESSION: 1. No significant change. Signer Name: Bruce Oleary MD Signed: 05/01/2022 10:11 AM Workstation Name: [id number]
--- NOTE | 2022-05-01 10:15 | Progress Note ---
Assessment and Plan It will be recalled that he presented to [facility] emergency clinic with chest pain, and during his evaluation there, suffered an acute cardiopulmonary arrest prompting his transfer to the emergency room at [facility]. Ventricular fibrillation was reported, although no strips available for review. EKG on presentation here was a rapid atrial fibrillation with some nonspecific ST segment changes which have since resolved. Echocardiogram showed a four-chamber dilated cardiomyopathy with left ventricular ejection fraction 15 to 20%. The chronicity of the cardiomyopathy is uncertain, the patient's does not report any recent cardiac evaluation, with only a history of atrial fibrillation requiring cardioversion some 15 years ago. Cardiac catheterization performed this admission showed no significant obstructive coronary lesions, consistent with nonischemic cardiomyopathy. Post cardiac catheterization, and IV hydration, his creatinine has reduced from 4.6- 2.9. The patient however still vent dependent, with high oxygen rate requirements. Chest x-ray today shows a mostly right lung opacity, the ICU team is treating him for possible aspiration. Eventually, he would need a device during this hospitalization for secondary prevention of sudden cardiac before discharge as he had cardiac arrest and low ejection fraction. If the patient has active infection and cannot get a device he will at least need a LifeVest we will introduce afterload agents and beta-blockers for LV systolic dysfunction once he is off pressors/inotropic agents and clinically stable. He will need long-term oral anticoagulation for atrial fibrillation will initiate it when clinically stable. Amiodarone was stopped. Patient tolerating digoxin well. Continue digoxin 0.125 p.o. daily. - Patient Problems (1) Atrial fibrillation with RVR Current Visit: Yes Status: Acute (2) Cardiac arrest Current Visit: Yes Status: Acute (3) Cardiogenic shock Current Visit: Yes Status: Acute Subjective Principal diagnosis: AHRF; AMS; Pneumonia; Shock; DM II; Severe Metabolic Acidosis Interval history: Patient stable on vent. He is COVID-19 positive. Telemetry reviewed, still in atrial fibrillation with heart rates in low 80-90's Objective Vital Signs Temp Pulse Pulse Resp BP Pulse Ox 05/01/22 08:45 71 20 95/59 98 05/01/22 08:31 79 20 112/77 97 05/01/22 08:15 78 20 112/77 98 05/01/22 08:00 100.8 F H 84 75 17 112/77 98 05/01/22 07:45 88 8 L 112/77 99 08/19/22 07:31 83 14 112/77 97 05/01/22 07:15 83 20 112/77 98 05/01/22 07:01 78 7 L 112/77 97 05/01/22 06:45 84 10 L 112/77 100 05/01/22 06:31 85 26 H 112/77 97 05/01/22 06:15 83 23 112/68 96 05/01/22 06:00 78 17 108/65 95 05/01/22 05:45 82 22 112/68 93 05/01/22 05:31 79 22 112/68 95 05/01/22 05:15 81 22 123/73 90 05/01/22 05:01 84 21 112/67 93 05/01/22 04:45 89 27 H 123/73 94 05/01/22 04:43 86 100/47 94 05/01/22 04:30 86 26 H 123/73 97 05/01/22 04:15 75 22 104/62 93 05/01/22 04:00 86 13 117/76 97 05/01/22 03:45 77 20 104/62 99 05/01/22 03:30 80 20 104/62 99 05/01/22 03:19 99.8 F H 05/01/22 03:15 81 19 131/59 100 05/01/22 03:00 79 18 131/59 99 05/01/22 02:45 88 22 131/59 99 05/01/22 02:30 85 19 131/59 98 05/01/22 02:15 93 H 20 127/68 100 05/01/22 02:00 93 H 14 123/69 92 05/01/22 01:45 78 21 123/69 97 05/01/22 01:30 83 20 123/69 98 05/01/22 01:15 86 16 126/68 99 05/01/22 01:01 82 22 126/68 98 05/01/22 00:45 95 H 12 132/66 96 05/01/22 00:39 100.7 F H 05/01/22 00:31 88 20 132/66 97 05/01/22 00:15 82 15 129/72 99 05/01/22 00:01 88 17 122/67 100 05/01/22 00:00 81 136 H 27 H 97 04/30/22 23:45 82 26 H 129/72 98 1822 23:31 94 H 11 L 129/72 97 18 23:25 81 132/81 96 18 23:15 98 H 132/81 96 18 23:01 90 29 H 132/81 94 18 22:45 89 16 127/68 96 18 22:40 88 123/51 1822 22:30 84 22 127/68 96 18 22:15 84 29 H 166/76 94 18 22:01 96 H 32 H 166/76 97 1822 21:45 90 16 116/65 98 04/30/22 21:31 116/65 98 04/30/22 21:15 87 117/61 98 04/30/22 21:01 81 117/61 98 04/30/22 20:45 80 115/64 97 04/30/22 20:31 78 115/64 95 04/30/22 20:15 80 17 121/74 99 04/30/22 20:01 80 121/74 99 04/30/22 20:00 80 80 26 H 100 04/30/22 19:45 74 122/70 98 18 19:30 99 F 75 122/70 99 04/30/22 19:20 77 106/52 99 04/30/22 19:15 78 117/72 99 04/30/22 19:01 77 117/72 98 18 18:45 71 116/71 99 18 18:35 74 116/71 97 04/30/22 18:31 77 116/71 98 1822 18:15 83 120/75 98 18 18:01 75 25 H 120/75 99 18/22 17:45 67 21 119/66 98 1822 17:39 80 112/55 1822 17:31 79 22 119/66 98 1822 17:15 76 23 113/62 98 18 17:01 74 23 113/62 98 1822 16:45 79 25 H 139/52 98 1822 16:31 77 19 139/52 99 18 16:15 73 17 118/61 97 04/30/22 16:00 99 H 74 24 99 04/30/22 15:46 72 24 102/62 97 04/30/22 15:30 76 24 110/59 97 04/30/22 15:16 76 24 110/59 98 04/30/22 15:00 75 24 110/65 97 04/30/22 14:46 77 24 110/65 97 04/30/22 14:30 82 24 107/68 98 04/30/22 14:16 82 24 107/68 98 04/30/22 14:00 77 24 123/72 98 04/30/22 13:46 78 24 123/72 98 04/30/22 13:30 80 24 128/73 98 04/30/22 13:16 81 24 128/73 99 04/30/22 13:00 78 24 128/73 97 04/30/22 12:46 86 20 119/64 97 04/30/22 12:30 83 24 110/64 98 04/30/22 12:16 83 24 110/64 98 04/30/22 12:00 100.2 F H 99 H 79 24 113/56 99 04/30/22 11:46 88 24 121/66 97 04/30/22 11:30 84 24 121/76 97 04/30/22 11:16 85 26 H 121/76 96 04/30/22 11:00 91 H 24 121/76 97 04/30/22 10:46 90 24 120/70 99 04/30/22 10:30 89 24 123/66 98 04/30/22 10:16 86 24 123/66 98 - Physical Examination General: No Apparent Distress, Other (Patient is intubated, sedated, on the vent) HEENT: Positive: EOMI Neck: Positive: neck supple Cardiac: Positive: Irregularly Regular, S1/S2 Lungs: Positive: clear to auscultation (Anterior) Neuro: Positive: Grossly Intact, Other (Intubated, sedated on the vent, unable to assess) Abdomen: Positive: Soft Skin: Positive: Rash (On the left hand which is dressed), Other (Blisters on the right hand) Extremities: Present: edema (Trace) - Labs and Meds Cardiac Enzymes 04/30/22 05/01/22 Range/Units 10:19 04:00 AST 183 H 137 H (5-40) units/L Lipids 05/01/22 Range/Units 04:00 Triglycerides 214 H (2-149) mg/dL CBC 05/01/22 Range/Units 04:44 WBC 16.9 H (4.5-11.0) K/mm3 RBC 3.03 L (3.65-5.03) M/mm3 Hgb 8.7 L (11.8-15.2) gm/dl Hct 26.7 L (35.5-45.6) % Plt Count 566 H (140-440) K/mm3 Comprehensive Metabolic Panel 04/30/22 05/01/22 Range/Units 10:19 04:00 Sodium 143 143 (137-145) mmol/L Potassium 3.3 L 4.0 D (3.6-5.0) mmol/L Chloride 106.6 107.1 H (98-107) mmol/L Carbon Dioxide 28 25 (22-30) mmol/L BUN 26 H 33 H (9-20) mg/dL Creatinine 1.4 H 1.5 H (0.8-1.3) mg/dL Glucose 108 H 161 H (75-100) mg/dL Calcium 7.5 L 8.0 L (8.4-10.2) mg/dL AST 183 H 137 H (5-40) units/L ALT 112 H 111 H (7-56) units/L Alkaline Phosphatase 175 H 183 H (35-129) units/L Total Protein 5.0 L 6.5 D (6.3-8.2) g/dL Albumin 2.1 L 2.1 L (3.9-5) g/dL - Telemetry EKG Rhythm: Atrial Fibrillation - Allied health notes Allied health notes reviewed: RT
--- NOTE | 2022-05-01 10:18 | Progress Note ---
Assessment and Plan Acute hypoxemic respiratory failure Altered mental status Aspiration pneumonia Shock (Cardiogenic +/- Septic) Severe Metabolic Acidosis Morbid Obesity Diabetes type II Hypotension Obesity hypoventilation syndrome - tentatively to transfer to [facility] - RN asked to hold Propofol for weaning and use Fentanyl for sedation - will hold on Lasix today re: Azotemia / worsening creatinine - placed on SBT via PSV with p-supp @ 12 cm H2O and tolerating well so far - ABG after 2 hours - continue digoxin 0.125 mg p.o. daily - follow ID consult - continue strict I's & O's and target negative fluid balance - continue care as below otherwise; - prn vasopressors for target MAP > 65mmHg - continue daily SAT and SBT assessment as tolerated - continue to wean supplemental oxygen for target O2 sat's > 90% acutely - VAP bundle addressed - continue lung protective strategies - continue bronchodilators with pulmonary hygiene per RT - wean per pulmonary driven protocols otherwise - avoid nephrotoxins, renally dose all medications - continue accuchecks with glycemic control per SSI (While critically ill target blood glucose of 140-180 mg/dL; avoid hypoglycemia) - sedation prn for target RASS 0 to -1 - continue to avoid benzodiazepine's, reduce the possibility of delirium - AB's per ID rec's (s/p 5 days empiric CAP therapy with Levaquin) - prn analgesia per CPOT score - Maintenance of sleep-wake cycle, avoid delirium - continue enteral nutritional support at goal rate as tolerated - G.I. & VTE prophylaxis - PT/OT/ROM exercises - continue mobility protocols for pressure ulcer prophylaxis - Monitor hemodynamics closely - continue other care per attending / other consultants - discharge planning ongoing concurrently COVID SPECIFIC INTERVENTIONS - Remdesivir as per ID/Pulmonary developed protocols (receiving) - continue systemic steroids for severe COVID-19 infection (Dexamethasone X >/= 10 days) - follow repeat COVID tests results - zinc and vitamin C supplementation - Monitor inflammatory markers per facility protocol - ferritin, Ddimer, CRP - therapeutic anticoagulation per system Protocol based on d-dimer and clinical considerations - Continue contact and airborne isolation .... Re-evaluate in am & prn CONDITION: CRITICAL PROGNOSIS: GUARDED CODE STATUS: FULL CODE The high probability of a clinically significant, sudden or life-threatening deterioration of the [respiratory, cardiovascular, renal & neurologic] system(s) required my full and direct attention, intervention and personal management. The aggregate critical care time was [35] minutes without overlap. Time includes spent on; [x] Data Review and interpretation [x] Patient assessment and monitoring of vital signs [x] Documentation [x] Medication orders and management Subjective Date of service: 05/01/22 Principal diagnosis: AHRF; AMS; Pneumonia; Shock; DM II; Severe Metabolic Acidosis Interval history: Patient is seen today for: Acute hypoxemic respiratory failure; AMS; Aspiration pneumonia; Shock (Cardiogenic +/- Septic); DM II; Severe Metabolic Acidosis Seen and examined at bedside; 24hour events reviewed; nursing and respiratory care staff consulted; no adverse overnight events reported to me; resting in bed; remains on MVS; negative 1.1 liters output last 24 hours; alert; denies acute chest pain or palpitations; remains on Propofol drip; no N/V/F/C Objective Vital Signs - 12hr 04/30/22 04/30/22 04/30/22 22:30 22:40 22:45 Temperature Pulse Rate 84 88 89 Pulse Rate [ From Monitor] Respiratory 22 16 Rate Blood Pressure 127/68 123/51 127/68 O2 Sat by Pulse 96 96 Oximetry 04/30/22 04/30/22 04/30/22 23:01 23:15 23:25 Temperature Pulse Rate 90 98 H 81 Pulse Rate [ From Monitor] Respiratory 29 H Rate Blood Pressure 132/81 132/81 132/81 O2 Sat by Pulse 94 96 96 Oximetry 04/30/22 04/30/22 05/01/22 23:31 23:45 00:00 Temperature Pulse Rate 94 H 82 81 Pulse Rate [ 136 H From Monitor] Respiratory 11 L 26 H 27 H Rate Blood Pressure 129/72 129/72 O2 Sat by Pulse 97 98 97 Oximetry 05/01/22 05/01/22 05/01/22 00:01 00:15 00:31 Temperature Pulse Rate 88 82 88 Pulse Rate [ From Monitor] Respiratory 17 15 20 Rate Blood Pressure 122/67 129/72 132/66 O2 Sat by Pulse 100 99 97 Oximetry 05/01/22 05/01/22 05/01/22 00:39 00:45 01:01 Temperature 100.7 F H Pulse Rate 95 H 82 Pulse Rate [ From Monitor] Respiratory 12 22 Rate Blood Pressure 132/66 126/68 O2 Sat by Pulse 96 98 Oximetry 05/01/22 05/01/22 05/01/22 01:15 01:30 01:45 Temperature Pulse Rate 86 83 78 Pulse Rate [ From Monitor] Respiratory 16 20 21 Rate Blood Pressure 126/68 123/69 123/69 O2 Sat by Pulse 99 98 97 Oximetry 05/01/22 05/01/22 05/01/22 02:00 02:15 02:30 Temperature Pulse Rate 93 H 93 H 85 Pulse Rate [ From Monitor] Respiratory 14 20 19 Rate Blood Pressure 123/69 127/68 131/59 O2 Sat by Pulse 92 100 98 Oximetry 05/01/22 05/01/22 05/01/22 02:45 03:00 03:15 Temperature Pulse Rate 88 79 81 Pulse Rate [ From Monitor] Respiratory 22 18 19 Rate Blood Pressure 131/59 131/59 131/59 O2 Sat by Pulse 99 99 100 Oximetry 05/01/22 05/01/22 05/01/22 03:19 03:30 03:45 Temperature 99.8 F H Pulse Rate 80 77 Pulse Rate [ From Monitor] Respiratory 20 20 Rate Blood Pressure 104/62 104/62 O2 Sat by Pulse 99 99 Oximetry 05/01/22 05/01/22 05/01/22 04:00 04:15 04:30 Temperature Pulse Rate 86 75 86 Pulse Rate [ From Monitor] Respiratory 13 22 26 H Rate Blood Pressure 117/76 104/62 123/73 O2 Sat by Pulse 97 93 97 Oximetry 05/01/22 05/01/22 05/01/22 04:43 04:45 05:01 Temperature Pulse Rate 86 89 84 Pulse Rate [ From Monitor] Respiratory 27 H 21 Rate Blood Pressure 100/47 123/73 112/67 O2 Sat by Pulse 94 94 93 Oximetry 05/01/22 05/01/22 05/01/22 05:15 05:31 05:45 Temperature Pulse Rate 81 79 82 Pulse Rate [ From Monitor] Respiratory 22 22 22 Rate Blood Pressure 123/73 112/68 112/68 O2 Sat by Pulse 90 95 93 Oximetry 05/01/22 05/01/22 05/01/22 06:00 06:15 06:31 Temperature Pulse Rate 78 83 85 Pulse Rate [ From Monitor] Respiratory 17 23 26 H Rate Blood Pressure 108/65 112/68 112/77 O2 Sat by Pulse 95 96 97 Oximetry 05/01/22 05/01/22 05/01/22 06:45 07:01 07:15 Temperature Pulse Rate 84 78 83 Pulse Rate [ From Monitor] Respiratory 10 L 7 L 20 Rate Blood Pressure 112/77 112/77 112/77 O2 Sat by Pulse 100 97 98 Oximetry 05/01/22 05/01/22 05/01/22 07:31 07:45 08:00 Temperature 100.8 F H Pulse Rate 83 88 84 Pulse Rate [ 75 From Monitor] Respiratory 14 8 L 17 Rate Blood Pressure 112/77 112/77 112/77 O2 Sat by Pulse 97 99 98 Oximetry 05/01/22 05/01/22 05/01/22 08:15 08:31 08:45 Temperature Pulse Rate 78 79 71 Pulse Rate [ From Monitor] Respiratory 20 20 20 Rate Blood Pressure 112/77 112/77 95/59 O2 Sat by Pulse 98 97 98 Oximetry Constitutional: no acute distress, other (elderly obese male with mildly increased respiratory effort at rest on MVS) Eyes: non-icteric ENT: oropharynx moist, other (ETT 24 cm DIANNE) Neck: supple, no JVD, other (RIJ CVL) Effort: normal Ascultation: Bilateral: diminished breath sounds, rales Percussion: Bilateral: not dull Cardiovascular: irregular rhythm, other (No R/M) Gastrointestinal: normoactive bowel sounds, soft, non-tender, non-distended (protuberant), other (Dunbar catheter) Integumentary: rash (erythematous rash over anterior chest wall and upper extremities) Extremities: no cyanosis, no edema, pulses normal, no ischemia or petechiae, edema (bilateral upper extemities) Neurologic: non-focal exam (grossly), pupils equal and round, CN II-XII normal, motor strength normal and, other (obeys simple commands) Psychiatric: mood appropriate, affect normal CBC and BMP: 05/01/22 04:44 05/01/22 04:00 ABG, PT/INR, D-dimer: ABG ABG pH 7.514 pH Units (7.350-7.450) H 04/30/22 05:20 ABG pCO2 35.6 mm Hg 04/30/22 05:20 ABG pO2 73.4 mm Hg (80.0-90.0) L 04/30/22 05:20 ABG O2 Saturation 96.8 % (95.0-99.0) 04/30/22 05:20 PT/INR, D-dimer PT 15.6 Sec. (12.2-14.9) H 04/18/22 Unknown INR 1.08 (0.87-1.13) 04/18/22 Unknown Abnormal lab findings: Abnormal Labs 04/17/22 04/17/22 04/17/22 19:18 19:55 19:56 WBC RBC Hgb Hct RDW Plt Count Lymph % (Auto) [place] % (Auto) Eos % (Auto) Lymph # (Auto) [place] # (Auto) Eos # (Auto) Seg Neutrophils % Seg Neuts % (Manual) Lymphocytes % (Manual) Eosinophils % (Manual) Seg Neutrophils # Seg Neutrophils # Man Lymphocytes # (Manual) Eosinophils # (Manual) PT Activated Coag Time Heparin Anti-Xa Level ABG pH 7.120 L* ABG pO2 45.3 L ABG HCO3 18.5 L ABG O2 Saturation 68.3 L ABG Base Excess -11.5 L ABG Hemoglobin Oxyhemoglobin 66.8 L Sodium Potassium Chloride 94.2 L Carbon Dioxide 17 L BUN Creatinine 1.6 H Glucose 315 H POC Glucose 277 H Lactic Acid Calcium Phosphorus Magnesium Direct Bilirubin AST 529 H ALT 318 H Alkaline Phosphatase 137 H Total Creatine Kinase 398 H CK-MB (CK-2) 17.9 H CK-MB (CK-2) Rel Index 4.4 H Troponin T 0.205 H* C-Reactive Protein Total Protein Albumin Triglycerides Ur Specific [place] Urine Blood Urine WBC (Auto) Urine Creatinine Digoxin Coronavirus (PCR) 04/17/22 04/17/22 04/17/22 19:58 19:58 21:42 WBC 11.9 H RBC 5.17 H Hgb 15.5 H Hct 48.0 H RDW Plt Count Lymph % (Auto) [place] % (Auto) Eos % (Auto) Lymph # (Auto) [place] # (Auto) Eos # (Auto) Seg Neutrophils % 71.7 H Seg Neuts % (Manual) Lymphocytes % (Manual) Eosinophils % (Manual) Seg Neutrophils # 8.5 H Seg Neutrophils # Man Lymphocytes # (Manual) Eosinophils # (Manual) PT Activated Coag Time Heparin Anti-Xa Level ABG pH ABG pO2 ABG HCO3 ABG O2 Saturation ABG Base Excess ABG Hemoglobin Oxyhemoglobin Sodium Potassium Chloride 95.0 L Carbon Dioxide 19 L BUN Creatinine 1.5 H Glucose 306 H POC Glucose Lactic Acid Calcium Phosphorus Magnesium Direct Bilirubin AST ALT Alkaline Phosphatase Total Creatine Kinase 412 H CK-MB (CK-2) 19.2 H CK-MB (CK-2) Rel Index 4.6 H Troponin T 0.285 H* D C-Reactive Protein Total Protein Albumin Triglycerides Ur Specific [place] Urine Blood Urine WBC (Auto) Urine Creatinine Digoxin Coronavirus (PCR) 04/17/22 04/18/22 04/18/22 21:42 00:40 01:07 WBC RBC Hgb Hct RDW Plt Count Lymph % (Auto) [place] % (Auto) Eos % (Auto) Lymph # (Auto) [place] # (Auto) Eos # (Auto) Seg Neutrophils % Seg Neuts % (Manual) Lymphocytes % (Manual) Eosinophils % (Manual) Seg Neutrophils # Seg Neutrophils # Man Lymphocytes # (Manual) Eosinophils # (Manual) PT Activated Coag Time Heparin Anti-Xa Level ABG pH ABG pO2 ABG HCO3 ABG O2 Saturation ABG Base Excess ABG Hemoglobin Oxyhemoglobin Sodium Potassium Chloride Carbon Dioxide BUN Creatinine Glucose POC Glucose 320 H Lactic Acid 7.90 H* 7.90 H* Calcium Phosphorus Magnesium Direct Bilirubin AST ALT Alkaline Phosphatase Total Creatine Kinase CK-MB (CK-2) CK-MB (CK-2) Rel Index Troponin T C-Reactive Protein Total Protein Albumin Triglycerides Ur Specific [place] Urine Blood Urine WBC (Auto) Urine Creatinine Digoxin Coronavirus (PCR) 04/18/22 04/18/22 04/18/22 01:07 04:00 06:04 WBC RBC Hgb Hct RDW Plt Count Lymph % (Auto) [place] % (Auto) Eos % (Auto) Lymph # (Auto) [place] # (Auto) Eos # (Auto) Seg Neutrophils % Seg Neuts % (Manual) Lymphocytes % (Manual) Eosinophils % (Manual) Seg Neutrophils # Seg Neutrophils # Man Lymphocytes # (Manual) Eosinophils # (Manual) PT Activated Coag Time Heparin Anti-Xa Level < 0.10 L ABG pH ABG pO2 ABG HCO3 ABG O2 Saturation ABG Base Excess ABG Hemoglobin Oxyhemoglobin Sodium Potassium Chloride Carbon Dioxide BUN Creatinine Glucose POC Glucose 305 H Lactic Acid Calcium Phosphorus Magnesium Direct Bilirubin AST ALT Alkaline Phosphatase Total Creatine Kinase 488 H CK-MB (CK-2) 25.3 H CK-MB (CK-2) Rel Index 5.1 H Troponin T 0.665 H* D C-Reactive Protein Total Protein Albumin Triglycerides Ur Specific [place] Urine Blood Urine WBC (Auto) Urine Creatinine Digoxin Coronavirus (PCR) 04/18/22 04/18/22 04/18/22 06:20 11:10 12:48 WBC RBC Hgb Hct RDW Plt Count Lymph % (Auto) [place] % (Auto) Eos % (Auto) Lymph # (Auto) [place] # (Auto) Eos # (Auto) Seg Neutrophils % Seg Neuts % (Manual) Lymphocytes % (Manual) Eosinophils % (Manual) Seg Neutrophils # Seg Neutrophils # Man Lymphocytes # (Manual) Eosinophils # (Manual) PT Activated Coag Time Heparin Anti-Xa Level < 0.10 L ABG pH 7.119 L* 7.304 L ABG pO2 56.1 L 103.5 H ABG HCO3 18.4 L 14.4 L ABG O2 Saturation 80.7 L ABG Base Excess -11.4 L -10.6 L ABG Hemoglobin 13.5 L Oxyhemoglobin 79.2 L Sodium Potassium Chloride Carbon Dioxide BUN Creatinine Glucose POC Glucose Lactic Acid Calcium Phosphorus Magnesium Direct Bilirubin AST ALT Alkaline Phosphatase Total Creatine Kinase CK-MB (CK-2) CK-MB (CK-2) Rel Index Troponin T C-Reactive Protein Total Protein Albumin Triglycerides Ur Specific [place] Urine Blood Urine WBC (Auto) Urine Creatinine Digoxin Coronavirus (PCR) 04/18/22 04/18/22 04/18/22 13:13 16:00 16:00 WBC RBC Hgb Hct RDW Plt Count Lymph % (Auto) [place] % (Auto) Eos % (Auto) Lymph # (Auto) [place] # (Auto) Eos # (Auto) Seg Neutrophils % Seg Neuts % (Manual) Lymphocytes % (Manual) Eosinophils % (Manual) Seg Neutrophils # Seg Neutrophils # Man Lymphocytes # (Manual) Eosinophils # (Manual) PT Activated Coag Time Heparin Anti-Xa Level ABG pH ABG pO2 ABG HCO3 ABG O2 Saturation ABG Base Excess ABG Hemoglobin Oxyhemoglobin Sodium Potassium Chloride Carbon Dioxide BUN Creatinine Glucose POC Glucose 334 H Lactic Acid 7.00 H* Calcium Phosphorus 5.70 H Magnesium 1.30 L Direct Bilirubin AST ALT Alkaline Phosphatase Total Creatine Kinase 969 H CK-MB (CK-2) 55.9 H CK-MB (CK-2) Rel Index 5.7 H Troponin T 1.580 H* D C-Reactive Protein Total Protein Albumin Triglycerides Ur Specific [place] Urine Blood Urine WBC (Auto) Urine Creatinine Digoxin Coronavirus (PCR) 04/18/22 04/18/22 04/18/22 16:00 18:00 18:01 WBC RBC Hgb Hct RDW Plt Count Lymph % (Auto) [place] % (Auto) Eos % (Auto) Lymph # (Auto) [place] # (Auto) Eos # (Auto) Seg Neutrophils % Seg Neuts % (Manual) Lymphocytes % (Manual) Eosinophils % (Manual) Seg Neutrophils # Seg Neutrophils # Man Lymphocytes # (Manual) Eosinophils # (Manual) PT Activated Coag Time Heparin Anti-Xa Level < 0.10 L ABG pH ABG pO2 ABG HCO3 ABG O2 Saturation ABG Base Excess ABG Hemoglobin Oxyhemoglobin Sodium 136 L Potassium 6.3 H* D Chloride 97.6 L Carbon Dioxide 18 L BUN 34 H Creatinine 3.5 H Glucose 409 H POC Glucose 397 H Lactic Acid Calcium 6.8 L Phosphorus Magnesium Direct Bilirubin AST ALT Alkaline Phosphatase Total Creatine Kinase CK-MB (CK-2) CK-MB (CK-2) Rel Index Troponin T C-Reactive Protein Total Protein Albumin Triglycerides Ur Specific [place] Urine Blood Urine WBC (Auto) Urine Creatinine Digoxin Coronavirus (PCR) 04/18/22 04/18/22 04/18/22 19:13 20:58 21:22 WBC RBC Hgb Hct RDW Plt Count Lymph % (Auto) [place] % (Auto) Eos % (Auto) Lymph # (Auto) [place] # (Auto) Eos # (Auto) Seg Neutrophils % Seg Neuts % (Manual) Lymphocytes % (Manual) Eosinophils % (Manual) Seg Neutrophils # Seg Neutrophils # Man Lymphocytes # (Manual) Eosinophils # (Manual) PT Activated Coag Time Heparin Anti-Xa Level ABG pH 7.502 H ABG pO2 144.5 H ABG HCO3 ABG O2 Saturation ABG Base Excess ABG Hemoglobin 12.5 L Oxyhemoglobin Sodium Potassium Chloride Carbon Dioxide BUN Creatinine Glucose POC Glucose 321 H 307 H Lactic Acid Calcium Phosphorus Magnesium Direct Bilirubin AST ALT Alkaline Phosphatase Total Creatine Kinase CK-MB (CK-2) CK-MB (CK-2) Rel Index Troponin T C-Reactive Protein Total Protein Albumin Triglycerides Ur Specific [place] Urine Blood Urine WBC (Auto) Urine Creatinine Digoxin Coronavirus (PCR) 04/18/22 04/18/22 04/18/22 21:30 21:30 Unknown WBC RBC Hgb Hct RDW Plt Count Lymph % (Auto) [place] % (Auto) Eos % (Auto) Lymph # (Auto) [place] # (Auto) Eos # (Auto) Seg Neutrophils % Seg Neuts % (Manual) 81.0 H Lymphocytes % (Manual) 12.0 L Eosinophils % (Manual) Seg Neutrophils # 9.8 H Seg Neutrophils # Man 8.7 H Lymphocytes # (Manual) Eosinophils # (Manual) PT Activated Coag Time Heparin Anti-Xa Level ABG pH ABG pO2 ABG HCO3 ABG O2 Saturation ABG Base Excess ABG Hemoglobin Oxyhemoglobin Sodium Potassium Chloride 96.6 L Carbon Dioxide BUN 37 H Creatinine 3.6 H Glucose 312 H POC Glucose Lactic Acid 5.50 H* Calcium 7.3 L Phosphorus Magnesium Direct Bilirubin AST ALT Alkaline Phosphatase Total Creatine Kinase CK-MB (CK-2) CK-MB (CK-2) Rel Index Troponin T C-Reactive Protein Total Protein Albumin Triglycerides Ur Specific [place] Urine Blood Urine WBC (Auto) Urine Creatinine Digoxin Coronavirus (PCR) 04/18/22 04/18/22 04/19/22 Unknown Unknown 00:35 WBC RBC Hgb Hct RDW Plt Count Lymph % (Auto) [place] % (Auto) Eos % (Auto) Lymph # (Auto) [place] # (Auto) Eos # (Auto) Seg Neutrophils % Seg Neuts % (Manual) Lymphocytes % (Manual) Eosinophils % (Manual) Seg Neutrophils # Seg Neutrophils # Man Lymphocytes # (Manual) Eosinophils # (Manual) PT 15.6 H Activated Coag Time Heparin Anti-Xa Level ABG pH ABG pO2 ABG HCO3 ABG O2 Saturation ABG Base Excess ABG Hemoglobin Oxyhemoglobin Sodium Potassium Chloride Carbon Dioxide 18 L BUN 26 H Creatinine 2.5 H D Glucose 330 H POC Glucose Lactic Acid Calcium 7.9 L Phosphorus Magnesium Direct Bilirubin AST 463 H ALT 249 H Alkaline Phosphatase Total Creatine Kinase CK-MB (CK-2) CK-MB (CK-2) Rel Index Troponin T 2.670 H* D C-Reactive Protein Total Protein Albumin 3.3 L Triglycerides Ur Specific [place] Urine Blood Urine WBC (Auto) Urine Creatinine Digoxin Coronavirus (PCR) 04/19/22 04/19/22 04/19/22 00:39 02:08 02:08 WBC RBC Hgb Hct RDW Plt Count Lymph % (Auto) [place] % (Auto) Eos % (Auto) Lymph # (Auto) [place] # (Auto) Eos # (Auto) Seg Neutrophils % Seg Neuts % (Manual) Lymphocytes % (Manual) Eosinophils % (Manual) Seg Neutrophils # Seg Neutrophils # Man Lymphocytes # (Manual) Eosinophils # (Manual) PT Activated Coag Time Heparin Anti-Xa Level ABG pH ABG pO2 ABG HCO3 ABG O2 Saturation ABG Base Excess ABG Hemoglobin Oxyhemoglobin Sodium Potassium Chloride Carbon Dioxide BUN Creatinine Glucose POC Glucose 263 H Lactic Acid Calcium Phosphorus Magnesium Direct Bilirubin AST ALT Alkaline Phosphatase Total Creatine Kinase CK-MB (CK-2) CK-MB (CK-2) Rel Index Troponin T C-Reactive Protein Total Protein Albumin Triglycerides Ur Specific [place] Urine Blood Large A Urine WBC (Auto) 88.0 H Urine Creatinine 90.9 H Digoxin Coronavirus (PCR) 04/19/22 04/19/22 04/19/22 02:08 03:45 03:45 WBC 14.2 H RBC Hgb Hct RDW Plt Count Lymph % (Auto) [place] % (Auto) Eos % (Auto) Lymph # (Auto) [place] # (Auto) Eos # (Auto) Seg Neutrophils % Seg Neuts % (Manual) Lymphocytes % (Manual) Eosinophils % (Manual) Seg Neutrophils # Seg Neutrophils # Man Lymphocytes # (Manual) Eosinophils # (Manual) PT Activated Coag Time Heparin Anti-Xa Level 0.18 L ABG pH ABG pO2 ABG HCO3 ABG O2 Saturation ABG Base Excess ABG Hemoglobin Oxyhemoglobin Sodium Potassium Chloride 94.2 L Carbon Dioxide BUN 39 H Creatinine 3.8 H Glucose 243 H POC Glucose Lactic Acid Calcium 7.1 L Phosphorus Magnesium 1.50 L Direct Bilirubin AST 380 H ALT 289 H Alkaline Phosphatase Total Creatine Kinase CK-MB (CK-2) CK-MB (CK-2) Rel Index Troponin T C-Reactive Protein Total Protein 5.4 L Albumin 2.5 L Triglycerides Ur Specific [place] Urine Blood Urine WBC (Auto) Urine Creatinine Digoxin Coronavirus (PCR) 04/19/22 04/19/22 04/19/22 03:45 06:01 07:11 WBC RBC Hgb Hct RDW Plt Count Lymph % (Auto) [place] % (Auto) Eos % (Auto) Lymph # (Auto) [place] # (Auto) Eos # (Auto) Seg Neutrophils % Seg Neuts % (Manual) Lymphocytes % (Manual) Eosinophils % (Manual) Seg Neutrophils # Seg Neutrophils # Man Lymphocytes # (Manual) Eosinophils # (Manual) PT Activated Coag Time Heparin Anti-Xa Level ABG pH ABG pO2 ABG HCO3 ABG O2 Saturation ABG Base Excess ABG Hemoglobin Oxyhemoglobin Sodium Potassium Chloride Carbon Dioxide BUN Creatinine Glucose POC Glucose 165 H Lactic Acid 4.00 H* Calcium Phosphorus Magnesium Direct Bilirubin AST ALT Alkaline Phosphatase Total Creatine Kinase 3270 H CK-MB (CK-2) 28.5 H CK-MB (CK-2) Rel Index Troponin T 2.980 H* C-Reactive Protein Total Protein Albumin Triglycerides Ur Specific [place] Urine Blood Urine WBC (Auto) Urine Creatinine Digoxin Coronavirus (PCR) 04/19/22 04/19/22 04/19/22 07:50 08:50 12:49 WBC RBC Hgb Hct RDW Plt Count Lymph % (Auto) [place] % (Auto) Eos % (Auto) Lymph # (Auto) [place] # (Auto) Eos # (Auto) Seg Neutrophils % Seg Neuts % (Manual) Lymphocytes % (Manual) Eosinophils % (Manual) Seg Neutrophils # Seg Neutrophils # Man Lymphocytes # (Manual) Eosinophils # (Manual) PT Activated Coag Time Heparin Anti-Xa Level ABG pH 7.471 H ABG pO2 58.9 L ABG HCO3 27.1 H ABG O2 Saturation 91.7 L ABG Base Excess 3.4 H ABG Hemoglobin 12.2 L Oxyhemoglobin 90.0 L Sodium Potassium Chloride Carbon Dioxide BUN Creatinine Glucose POC Glucose 331 H Lactic Acid 3.40 H* Calcium Phosphorus Magnesium Direct Bilirubin AST ALT Alkaline Phosphatase Total Creatine Kinase CK-MB (CK-2) CK-MB (CK-2) Rel Index Troponin T C-Reactive Protein Total Protein Albumin Triglycerides Ur Specific [place] Urine Blood Urine WBC (Auto) Urine Creatinine Digoxin Coronavirus (PCR) 04/19/22 04/19/22 04/19/22 16:15 19:25 21:17 WBC RBC Hgb Hct RDW Plt Count Lymph % (Auto) [place] % (Auto) Eos % (Auto) Lymph # (Auto) [place] # (Auto) Eos # (Auto) Seg Neutrophils % Seg Neuts % (Manual) Lymphocytes % (Manual) Eosinophils % (Manual) Seg Neutrophils # Seg Neutrophils # Man Lymphocytes # (Manual) Eosinophils # (Manual) PT Activated Coag Time Heparin Anti-Xa Level ABG pH ABG pO2 ABG HCO3 ABG O2 Saturation ABG Base Excess ABG Hemoglobin Oxyhemoglobin Sodium Potassium Chloride Carbon Dioxide BUN Creatinine Glucose POC Glucose 304 H 251 H Lactic Acid 4.00 H* Calcium Phosphorus Magnesium Direct Bilirubin AST ALT Alkaline Phosphatase Total Creatine Kinase CK-MB (CK-2) CK-MB (CK-2) Rel Index Troponin T C-Reactive Protein Total Protein Albumin Triglycerides Ur Specific [place] Urine Blood Urine WBC (Auto) Urine Creatinine Digoxin Coronavirus (PCR) 04/19/22 04/20/22 04/20/22 23:00 04:12 04:12 WBC 12.2 H RBC Hgb 11.6 L Hct 35.3 L RDW Plt Count Lymph % (Auto) [place] % (Auto) Eos % (Auto) Lymph # (Auto) [place] # (Auto) Eos # (Auto) Seg Neutrophils % Seg Neuts % (Manual) Lymphocytes % (Manual) Eosinophils % (Manual) Seg Neutrophils # Seg Neutrophils # Man Lymphocytes # (Manual) Eosinophils # (Manual) PT Activated Coag Time Heparin Anti-Xa Level 0.15 L ABG pH ABG pO2 ABG HCO3 ABG O2 Saturation ABG Base Excess ABG Hemoglobin Oxyhemoglobin Sodium Potassium Chloride Carbon Dioxide BUN Creatinine Glucose POC Glucose 236 H Lactic Acid Calcium Phosphorus Magnesium Direct Bilirubin AST ALT Alkaline Phosphatase Total Creatine Kinase CK-MB (CK-2) CK-MB (CK-2) Rel Index Troponin T C-Reactive Protein Total Protein Albumin Triglycerides Ur Specific [place] Urine Blood Urine WBC (Auto) Urine Creatinine Digoxin Coronavirus (PCR) 04/20/22 04/20/22 04/20/22 04:12 04:12 09:10 WBC RBC Hgb Hct RDW Plt Count Lymph % (Auto) [place] % (Auto) Eos % (Auto) Lymph # (Auto) [place] # (Auto) Eos # (Auto) Seg Neutrophils % Seg Neuts % (Manual) Lymphocytes % (Manual) Eosinophils % (Manual) Seg Neutrophils # Seg Neutrophils # Man Lymphocytes # (Manual) Eosinophils # (Manual) PT Activated Coag Time Heparin Anti-Xa Level ABG pH ABG pO2 ABG HCO3 ABG O2 Saturation ABG Base Excess ABG Hemoglobin Oxyhemoglobin Sodium 133 L Potassium 3.5 L Chloride 91.9 L Carbon Dioxide BUN 44 H Creatinine 4.6 H Glucose 263 H POC Glucose Lactic Acid 2.80 H* Calcium 7.2 L Phosphorus Magnesium Direct Bilirubin AST 553 H ALT 471 H Alkaline Phosphatase Total Creatine Kinase 3019 H CK-MB (CK-2) CK-MB (CK-2) Rel Index Troponin T C-Reactive Protein Total Protein 5.7 L Albumin 2.4 L Triglycerides 254 H Ur Specific [place] Urine Blood Urine WBC (Auto) Urine Creatinine Digoxin Coronavirus (PCR) 04/20/22 04/20/22 04/20/22 09:31 11:18 18:08 WBC RBC Hgb Hct RDW Plt Count Lymph % (Auto) [place] % (Auto) Eos % (Auto) Lymph # (Auto) [place] # (Auto) Eos # (Auto) Seg Neutrophils % Seg Neuts % (Manual) Lymphocytes % (Manual) Eosinophils % (Manual) Seg Neutrophils # Seg Neutrophils # Man Lymphocytes # (Manual) Eosinophils # (Manual) PT Activated Coag Time Heparin Anti-Xa Level ABG pH 7.512 H ABG pO2 ABG HCO3 26.2 H ABG O2 Saturation ABG Base Excess 3.2 H ABG Hemoglobin 9.0 L Oxyhemoglobin Sodium Potassium Chloride Carbon Dioxide BUN Creatinine Glucose POC Glucose 285 H 293 H Lactic Acid Calcium Phosphorus Magnesium Direct Bilirubin AST ALT Alkaline Phosphatase Total Creatine Kinase CK-MB (CK-2) CK-MB (CK-2) Rel Index Troponin T C-Reactive Protein Total Protein Albumin Triglycerides Ur Specific [place] Urine Blood Urine WBC (Auto) Urine Creatinine Digoxin Coronavirus (PCR) 04/20/22 04/21/22 04/21/22 21:40 00:10 04:00 WBC RBC Hgb Hct RDW Plt Count Lymph % (Auto) [place] % (Auto) Eos % (Auto) Lymph # (Auto) [place] # (Auto) Eos # (Auto) Seg Neutrophils % Seg Neuts % (Manual) Lymphocytes % (Manual) Eosinophils % (Manual) Seg Neutrophils # Seg Neutrophils # Man Lymphocytes # (Manual) Eosinophils # (Manual) PT Activated Coag Time Heparin Anti-Xa Level 0.16 L ABG pH ABG pO2 59.4 L ABG HCO3 29.7 H ABG O2 Saturation 90.1 L ABG Base Excess 3.1 H ABG Hemoglobin 11.6 L Oxyhemoglobin 88.2 L Sodium Potassium Chloride Carbon Dioxide BUN Creatinine Glucose POC Glucose 290 H Lactic Acid Calcium Phosphorus Magnesium Direct Bilirubin AST ALT Alkaline Phosphatase Total Creatine Kinase CK-MB (CK-2) CK-MB (CK-2) Rel Index Troponin T C-Reactive Protein Total Protein Albumin Triglycerides Ur Specific [place] Urine Blood Urine WBC (Auto) Urine Creatinine Digoxin Coronavirus (PCR) 04/21/22 04/21/22 04/21/22 04:30 04:30 05:57 WBC 17.9 H RBC Hgb 11.7 L Hct 35.1 L RDW Plt Count Lymph % (Auto) [place] % (Auto) Eos % (Auto) Lymph # (Auto) [place] # (Auto) Eos # (Auto) Seg Neutrophils % Seg Neuts % (Manual) Lymphocytes % (Manual) Eosinophils % (Manual) Seg Neutrophils # Seg Neutrophils # Man Lymphocytes # (Manual) Eosinophils # (Manual) PT Activated Coag Time Heparin Anti-Xa Level ABG pH ABG pO2 ABG HCO3 ABG O2 Saturation ABG Base Excess ABG Hemoglobin Oxyhemoglobin Sodium Potassium Chloride 95.7 L Carbon Dioxide BUN 45 H Creatinine 4.2 H Glucose 309 H POC Glucose 265 H Lactic Acid Calcium 7.4 L Phosphorus 5.60 H D Magnesium 2.50 H Direct Bilirubin AST 217 H ALT 376 H Alkaline Phosphatase Total Creatine Kinase CK-MB (CK-2) CK-MB (CK-2) Rel Index Troponin T C-Reactive Protein Total Protein Albumin 2.8 L Triglycerides Ur Specific [place] Urine Blood Urine WBC (Auto) Urine Creatinine Digoxin Coronavirus (PCR) 04/21/22 04/21/22 04/21/22 12:14 13:45 18:10 WBC RBC Hgb Hct RDW Plt Count Lymph % (Auto) [place] % (Auto) Eos % (Auto) Lymph # (Auto) [place] # (Auto) Eos # (Auto) Seg Neutrophils % Seg Neuts % (Manual) Lymphocytes % (Manual) Eosinophils % (Manual) Seg Neutrophils # Seg Neutrophils # Man Lymphocytes # (Manual) Eosinophils # (Manual) PT Activated Coag Time 179 H Heparin Anti-Xa Level ABG pH ABG pO2 ABG HCO3 ABG O2 Saturation ABG Base Excess ABG Hemoglobin Oxyhemoglobin Sodium Potassium Chloride Carbon Dioxide BUN Creatinine Glucose POC Glucose 248 H 240 H Lactic Acid Calcium Phosphorus Magnesium Direct Bilirubin AST ALT Alkaline Phosphatase Total Creatine Kinase CK-MB (CK-2) CK-MB (CK-2) Rel Index Troponin T C-Reactive Protein Total Protein Albumin Triglycerides Ur Specific [place] Urine Blood Urine WBC (Auto) Urine Creatinine Digoxin Coronavirus (PCR) 04/22/22 04/22/22 04/22/22 00:09 04:00 04:33 WBC 12.4 H RBC 3.34 L Hgb 9.8 L Hct 29.7 L RDW Plt Count 138 L Lymph % (Auto) [place] % (Auto) Eos % (Auto) Lymph # (Auto) [place] # (Auto) Eos # (Auto) Seg Neutrophils % Seg Neuts % (Manual) Lymphocytes % (Manual) Eosinophils % (Manual) Seg Neutrophils # Seg Neutrophils # Man Lymphocytes # (Manual) Eosinophils # (Manual) PT Activated Coag Time Heparin Anti-Xa Level ABG pH ABG pO2 ABG HCO3 ABG O2 Saturation ABG Base Excess ABG Hemoglobin Oxyhemoglobin Sodium Potassium Chloride Carbon Dioxide BUN 40 H Creatinine 2.9 H Glucose 269 H POC Glucose 248 H Lactic Acid Calcium 7.3 L Phosphorus Magnesium Direct Bilirubin AST ALT Alkaline Phosphatase Total Creatine Kinase 973 H CK-MB (CK-2) CK-MB (CK-2) Rel Index Troponin T C-Reactive Protein Total Protein Albumin Triglycerides Ur Specific [place] Urine Blood Urine WBC (Auto) Urine Creatinine Digoxin Coronavirus (PCR) 04/22/22 04/22/22 04/22/22 10:13 11:51 18:02 WBC RBC Hgb Hct RDW Plt Count Lymph % (Auto) [place] % (Auto) Eos % (Auto) Lymph # (Auto) [place] # (Auto) Eos # (Auto) Seg Neutrophils % Seg Neuts % (Manual) Lymphocytes % (Manual) Eosinophils % (Manual) Seg Neutrophils # Seg Neutrophils # Man Lymphocytes # (Manual) Eosinophils # (Manual) PT Activated Coag Time Heparin Anti-Xa Level ABG pH ABG pO2 56.1 L ABG HCO3 28.4 H ABG O2 Saturation 89.3 L ABG Base Excess ABG Hemoglobin 9.8 L Oxyhemoglobin 87.7 L Sodium Potassium Chloride Carbon Dioxide BUN Creatinine Glucose POC Glucose 302 H 266 H Lactic Acid Calcium Phosphorus Magnesium Direct Bilirubin AST ALT Alkaline Phosphatase Total Creatine Kinase CK-MB (CK-2) CK-MB (CK-2) Rel Index Troponin T C-Reactive Protein Total Protein Albumin Triglycerides Ur Specific [place] Urine Blood Urine WBC (Auto) Urine Creatinine Digoxin Coronavirus (PCR) 04/22/22 04/22/22 04/23/22 21:18 23:30 04:19 WBC RBC 3.34 L Hgb 9.9 L Hct 29.9 L RDW Plt Count Lymph % (Auto) [place] % (Auto) Eos % (Auto) Lymph # (Auto) [place] # (Auto) Eos # (Auto) Seg Neutrophils % Seg Neuts % (Manual) 74.0 H Lymphocytes % (Manual) 10.0 L Eosinophils % (Manual) 7.0 H Seg Neutrophils # Seg Neutrophils # Man 8.0 H Lymphocytes # (Manual) 1.1 L Eosinophils # (Manual) 0.8 H PT Activated Coag Time Heparin Anti-Xa Level ABG pH ABG pO2 ABG HCO3 ABG O2 Saturation ABG Base Excess ABG Hemoglobin Oxyhemoglobin Sodium Potassium Chloride Carbon Dioxide BUN Creatinine Glucose POC Glucose 299 H 299 H Lactic Acid Calcium Phosphorus Magnesium Direct Bilirubin AST ALT Alkaline Phosphatase Total Creatine Kinase CK-MB (CK-2) CK-MB (CK-2) Rel Index Troponin T C-Reactive Protein Total Protein Albumin Triglycerides Ur Specific [place] Urine Blood Urine WBC (Auto) Urine Creatinine Digoxin Coronavirus (PCR) 04/23/22 04/23/22 04/23/22 04:19 05:24 11:20 WBC RBC Hgb Hct RDW Plt Count Lymph % (Auto) [place] % (Auto) Eos % (Auto) Lymph # (Auto) [place] # (Auto) Eos # (Auto) Seg Neutrophils % Seg Neuts % (Manual) Lymphocytes % (Manual) Eosinophils % (Manual) Seg Neutrophils # Seg Neutrophils # Man Lymphocytes # (Manual) Eosinophils # (Manual) PT Activated Coag Time Heparin Anti-Xa Level ABG pH ABG pO2 ABG HCO3 ABG O2 Saturation ABG Base Excess ABG Hemoglobin Oxyhemoglobin Sodium Potassium 3.5 L Chloride Carbon Dioxide BUN 30 H Creatinine 2.3 H Glucose 289 H POC Glucose 271 H 302 H Lactic Acid Calcium 7.8 L Phosphorus Magnesium Direct Bilirubin AST 46 H ALT 158 H Alkaline Phosphatase 138 H Total Creatine Kinase CK-MB (CK-2) CK-MB (CK-2) Rel Index Troponin T C-Reactive Protein Total Protein 6.2 L Albumin 2.6 L Triglycerides 230 H Ur Specific [place] Urine Blood Urine WBC (Auto) Urine Creatinine Digoxin Coronavirus (PCR) 04/23/22 04/23/22 04/23/22 18:07 18:20 21:14 WBC RBC Hgb Hct RDW Plt Count Lymph % (Auto) [place] % (Auto) Eos % (Auto) Lymph # (Auto) [place] # (Auto) Eos # (Auto) Seg Neutrophils % Seg Neuts % (Manual) Lymphocytes % (Manual) Eosinophils % (Manual) Seg Neutrophils # Seg Neutrophils # Man Lymphocytes # (Manual) Eosinophils # (Manual) PT Activated Coag Time Heparin Anti-Xa Level ABG pH ABG pO2 ABG HCO3 31.6 H ABG O2 Saturation ABG Base Excess 4.8 H ABG Hemoglobin 18.3 H Oxyhemoglobin 94.8 L Sodium Potassium Chloride Carbon Dioxide BUN Creatinine Glucose POC Glucose 228 H 175 H Lactic Acid Calcium Phosphorus Magnesium Direct Bilirubin AST ALT Alkaline Phosphatase Total Creatine Kinase CK-MB (CK-2) CK-MB (CK-2) Rel Index Troponin T C-Reactive Protein Total Protein Albumin Triglycerides Ur Specific [place] Urine Blood Urine WBC (Auto) Urine Creatinine Digoxin Coronavirus (PCR) 04/23/22 04/24/22 04/24/22 23:24 04:35 04:47 WBC RBC Hgb Hct RDW Plt Count Lymph % (Auto) [place] % (Auto) Eos % (Auto) Lymph # (Auto) [place] # (Auto) Eos # (Auto) Seg Neutrophils % Seg Neuts % (Manual) Lymphocytes % (Manual) Eosinophils % (Manual) Seg Neutrophils # Seg Neutrophils # Man Lymphocytes # (Manual) Eosinophils # (Manual) PT Activated Coag Time Heparin Anti-Xa Level ABG pH ABG pO2 ABG HCO3 31.5 H ABG O2 Saturation ABG Base Excess 6.1 H ABG Hemoglobin 10.3 L Oxyhemoglobin Sodium Potassium Chloride Carbon Dioxide BUN Creatinine Glucose POC Glucose 168 H 177 H Lactic Acid Calcium Phosphorus Magnesium Direct Bilirubin AST ALT Alkaline Phosphatase Total Creatine Kinase CK-MB (CK-2) CK-MB (CK-2) Rel Index Troponin T C-Reactive Protein Total Protein Albumin Triglycerides Ur Specific [place] Urine Blood Urine WBC (Auto) Urine Creatinine Digoxin Coronavirus (PCR) 04/24/22 04/24/22 04/24/22 06:00 06:00 12:45 WBC 14.0 H RBC 3.57 L Hgb 10.1 L Hct 31.9 L RDW Plt Count Lymph % (Auto) 4.7 L [place] % (Auto) 8.8 H Eos % (Auto) 6.0 H Lymph # (Auto) 0.7 L [place] # (Auto) 1.2 H Eos # (Auto) 0.8 H Seg Neutrophils % 80.5 H Seg Neuts % (Manual) Lymphocytes % (Manual) Eosinophils % (Manual) Seg Neutrophils # 11.3 H Seg Neutrophils # Man Lymphocytes # (Manual) Eosinophils # (Manual) PT Activated Coag Time Heparin Anti-Xa Level ABG pH ABG pO2 ABG HCO3 ABG O2 Saturation ABG Base Excess ABG Hemoglobin Oxyhemoglobin Sodium Potassium 3.4 L Chloride Carbon Dioxide BUN 25 H Creatinine 1.8 H Glucose 218 H POC Glucose 227 H Lactic Acid Calcium 8.2 L Phosphorus Magnesium Direct Bilirubin AST ALT 99 H Alkaline Phosphatase 141 H Total Creatine Kinase CK-MB (CK-2) CK-MB (CK-2) Rel Index Troponin T C-Reactive Protein Total Protein 6.2 L Albumin 2.2 L Triglycerides Ur Specific [place] Urine Blood Urine WBC (Auto) Urine Creatinine Digoxin Coronavirus (PCR) 04/24/22 04/24/22 04/24/22 17:57 21:19 23:24 WBC RBC Hgb Hct RDW Plt Count Lymph % (Auto) [place] % (Auto) Eos % (Auto) Lymph # (Auto) [place] # (Auto) Eos # (Auto) Seg Neutrophils % Seg Neuts % (Manual) Lymphocytes % (Manual) Eosinophils % (Manual) Seg Neutrophils # Seg Neutrophils # Man Lymphocytes # (Manual) Eosinophils # (Manual) PT Activated Coag Time Heparin Anti-Xa Level ABG pH ABG pO2 ABG HCO3 ABG O2 Saturation ABG Base Excess ABG Hemoglobin Oxyhemoglobin Sodium Potassium Chloride Carbon Dioxide BUN Creatinine Glucose POC Glucose 207 H 186 H 203 H Lactic Acid Calcium Phosphorus Magnesium Direct Bilirubin AST ALT Alkaline Phosphatase Total Creatine Kinase CK-MB (CK-2) CK-MB (CK-2) Rel Index Troponin T C-Reactive Protein Total Protein Albumin Triglycerides Ur Specific [place] Urine Blood Urine WBC (Auto) Urine Creatinine Digoxin Coronavirus (PCR) 04/25/22 04/25/22 04/25/22 03:30 03:30 04:38 WBC 19.7 H RBC 3.39 L Hgb 9.8 L Hct 30.2 L RDW 15.6 H Plt Count Lymph % (Auto) 4.7 L [place] % (Auto) Eos % (Auto) 5.0 H Lymph # (Auto) 0.9 L [place] # (Auto) 1.2 H Eos # (Auto) 1.0 H Seg Neutrophils % 84.0 H Seg Neuts % (Manual) Lymphocytes % (Manual) Eosinophils % (Manual) Seg Neutrophils # 16.5 H Seg Neutrophils # Man Lymphocytes # (Manual) Eosinophils # (Manual) PT Activated Coag Time Heparin Anti-Xa Level ABG pH ABG pO2 ABG HCO3 ABG O2 Saturation ABG Base Excess ABG Hemoglobin Oxyhemoglobin Sodium 151 H Potassium 3.5 L Chloride 108.6 H Carbon Dioxide 31 H BUN 27 H Creatinine 1.9 H Glucose 144 H POC Glucose 135 H Lactic Acid Calcium 8.3 L Phosphorus Magnesium Direct Bilirubin AST ALT Alkaline Phosphatase Total Creatine Kinase CK-MB (CK-2) CK-MB (CK-2) Rel Index Troponin T C-Reactive Protein Total Protein Albumin Triglycerides Ur Specific [place] Urine Blood Urine WBC (Auto) Urine Creatinine Digoxin Coronavirus (PCR) 04/25/22 04/25/22 04/25/22 05:09 12:12 17:58 WBC RBC Hgb Hct RDW Plt Count Lymph % (Auto) [place] % (Auto) Eos % (Auto) Lymph # (Auto) [place] # (Auto) Eos # (Auto) Seg Neutrophils % Seg Neuts % (Manual) Lymphocytes % (Manual) Eosinophils % (Manual) Seg Neutrophils # Seg Neutrophils # Man Lymphocytes # (Manual) Eosinophils # (Manual) PT Activated Coag Time Heparin Anti-Xa Level ABG pH ABG pO2 ABG HCO3 32.2 H ABG O2 Saturation ABG Base Excess 6.7 H ABG Hemoglobin 9.9 L Oxyhemoglobin 94.9 L Sodium Potassium Chloride Carbon Dioxide BUN Creatinine Glucose POC Glucose 218 H 229 H Lactic Acid Calcium Phosphorus Magnesium Direct Bilirubin AST ALT Alkaline Phosphatase Total Creatine Kinase CK-MB (CK-2) CK-MB (CK-2) Rel Index Troponin T C-Reactive Protein Total Protein Albumin Triglycerides Ur Specific [place] Urine Blood Urine WBC (Auto) Urine Creatinine Digoxin Coronavirus (PCR) 04/25/22 04/25/22 04/26/22 18:00 23:48 05:20 WBC RBC Hgb 9.4 L Hct 30.1 L RDW Plt Count Lymph % (Auto) [place] % (Auto) Eos % (Auto) Lymph # (Auto) [place] # (Auto) Eos # (Auto) Seg Neutrophils % Seg Neuts % (Manual) Lymphocytes % (Manual) Eosinophils % (Manual) Seg Neutrophils # Seg Neutrophils # Man Lymphocytes # (Manual) Eosinophils # (Manual) PT Activated Coag Time Heparin Anti-Xa Level ABG pH ABG pO2 ABG HCO3 32.4 H ABG O2 Saturation ABG Base Excess 6.8 H ABG Hemoglobin 9.5 L Oxyhemoglobin Sodium Potassium Chloride Carbon Dioxide BUN Creatinine Glucose POC Glucose 214 H Lactic Acid Calcium Phosphorus Magnesium Direct Bilirubin AST ALT Alkaline Phosphatase Total Creatine Kinase CK-MB (CK-2) CK-MB (CK-2) Rel Index Troponin T C-Reactive Protein Total Protein Albumin Triglycerides Ur Specific [place] Urine Blood Urine WBC (Auto) Urine Creatinine Digoxin Coronavirus (PCR) 04/26/22 04/26/22 04/26/22 05:20 05:51 11:39 WBC RBC Hgb Hct RDW Plt Count Lymph % (Auto) [place] % (Auto) Eos % (Auto) Lymph # (Auto) [place] # (Auto) Eos # (Auto) Seg Neutrophils % Seg Neuts % (Manual) Lymphocytes % (Manual) Eosinophils % (Manual) Seg Neutrophils # Seg Neutrophils # Man Lymphocytes # (Manual) Eosinophils # (Manual) PT Activated Coag Time Heparin Anti-Xa Level ABG pH ABG pO2 ABG HCO3 ABG O2 Saturation ABG Base Excess ABG Hemoglobin Oxyhemoglobin Sodium 147 H Potassium Chloride Carbon Dioxide 33 H BUN 27 H Creatinine 1.6 H Glucose 221 H POC Glucose 227 H 263 H Lactic Acid Calcium Phosphorus Magnesium Direct Bilirubin AST ALT Alkaline Phosphatase Total Creatine Kinase CK-MB (CK-2) CK-MB (CK-2) Rel Index Troponin T C-Reactive Protein Total Protein Albumin Triglycerides Ur Specific [place] Urine Blood Urine WBC (Auto) Urine Creatinine Digoxin Coronavirus (PCR) 04/26/22 04/26/22 04/27/22 16:22 23:14 04:00 WBC RBC Hgb Hct RDW Plt Count Lymph % (Auto) [place] % (Auto) Eos % (Auto) Lymph # (Auto) [place] # (Auto) Eos # (Auto) Seg Neutrophils % Seg Neuts % (Manual) Lymphocytes % (Manual) Eosinophils % (Manual) Seg Neutrophils # Seg Neutrophils # Man Lymphocytes # (Manual) Eosinophils # (Manual) PT Activated Coag Time Heparin Anti-Xa Level ABG pH ABG pO2 ABG HCO3 ABG O2 Saturation ABG Base Excess ABG Hemoglobin Oxyhemoglobin Sodium Potassium Chloride Carbon Dioxide BUN 23 H Creatinine 1.4 H Glucose 231 H POC Glucose 250 H 221 H Lactic Acid Calcium 8.3 L Phosphorus Magnesium Direct Bilirubin AST 45 H ALT Alkaline Phosphatase 180 H Total Creatine Kinase CK-MB (CK-2) CK-MB (CK-2) Rel Index Troponin T C-Reactive Protein Total Protein Albumin 2.1 L Triglycerides Ur Specific [place] Urine Blood Urine WBC (Auto) Urine Creatinine Digoxin Coronavirus (PCR) 04/27/22 04/27/22 04/27/22 04:00 05:25 11:08 WBC 20.1 H RBC 3.28 L Hgb 9.5 L Hct 29.3 L RDW Plt Count Lymph % (Auto) 5.9 L [place] % (Auto) 8.0 H Eos % (Auto) 5.5 H Lymph # (Auto) [place] # (Auto) 1.6 H Eos # (Auto) 1.1 H Seg Neutrophils % 80.3 H Seg Neuts % (Manual) Lymphocytes % (Manual) Eosinophils % (Manual) Seg Neutrophils # 16.2 H Seg Neutrophils # Man Lymphocytes # (Manual) Eosinophils # (Manual) PT Activated Coag Time Heparin Anti-Xa Level ABG pH ABG pO2 ABG HCO3 ABG O2 Saturation ABG Base Excess ABG Hemoglobin Oxyhemoglobin Sodium Potassium Chloride Carbon Dioxide BUN Creatinine Glucose POC Glucose 234 H 224 H Lactic Acid Calcium Phosphorus Magnesium Direct Bilirubin AST ALT Alkaline Phosphatase Total Creatine Kinase CK-MB (CK-2) CK-MB (CK-2) Rel Index Troponin T C-Reactive Protein Total Protein Albumin Triglycerides Ur Specific [place] Urine Blood Urine WBC (Auto) Urine Creatinine Digoxin Coronavirus (PCR) 04/28/22 04/28/22 04/28/22 00:01 05:25 05:28 WBC 16.1 H RBC 3.32 L Hgb 9.4 L Hct 29.9 L RDW Plt Count Lymph % (Auto) [place] % (Auto) Eos % (Auto) Lymph # (Auto) [place] # (Auto) Eos # (Auto) Seg Neutrophils % Seg Neuts % (Manual) Lymphocytes % (Manual) Eosinophils % (Manual) Seg Neutrophils # Seg Neutrophils # Man Lymphocytes # (Manual) Eosinophils # (Manual) PT Activated Coag Time Heparin Anti-Xa Level ABG pH 7.489 H ABG pO2 72.5 L ABG HCO3 27.8 H ABG O2 Saturation ABG Base Excess 4.3 H ABG Hemoglobin 9.2 L Oxyhemoglobin 94.6 L Sodium Potassium Chloride Carbon Dioxide BUN Creatinine Glucose POC Glucose 189 H Lactic Acid Calcium Phosphorus Magnesium Direct Bilirubin AST ALT Alkaline Phosphatase Total Creatine Kinase CK-MB (CK-2) CK-MB (CK-2) Rel Index Troponin T C-Reactive Protein Total Protein Albumin Triglycerides Ur Specific [place] Urine Blood Urine WBC (Auto) Urine Creatinine Digoxin Coronavirus (PCR) 04/28/22 04/28/22 04/28/22 05:28 05:44 08:20 WBC RBC Hgb Hct RDW Plt Count Lymph % (Auto) [place] % (Auto) Eos % (Auto) Lymph # (Auto) [place] # (Auto) Eos # (Auto) Seg Neutrophils % Seg Neuts % (Manual) Lymphocytes % (Manual) Eosinophils % (Manual) Seg Neutrophils # Seg Neutrophils # Man Lymphocytes # (Manual) Eosinophils # (Manual) PT Activated Coag Time Heparin Anti-Xa Level ABG pH ABG pO2 ABG HCO3 ABG O2 Saturation ABG Base Excess ABG Hemoglobin Oxyhemoglobin Sodium Potassium Chloride Carbon Dioxide BUN 22 H Creatinine 1.4 H Glucose 179 H POC Glucose 181 H Lactic Acid Calcium 8.2 L Phosphorus Magnesium Direct Bilirubin AST ALT Alkaline Phosphatase Total Creatine Kinase CK-MB (CK-2) CK-MB (CK-2) Rel Index Troponin T C-Reactive Protein 15.30 H Total Protein Albumin Triglycerides Ur Specific [place] Urine Blood Urine WBC (Auto) Urine Creatinine Digoxin Coronavirus (PCR) 04/28/22 04/28/22 04/28/22 08:35 11:13 12:07 WBC RBC Hgb Hct RDW Plt Count Lymph % (Auto) [place] % (Auto) Eos % (Auto) Lymph # (Auto) [place] # (Auto) Eos # (Auto) Seg Neutrophils % Seg Neuts % (Manual) Lymphocytes % (Manual) Eosinophils % (Manual) Seg Neutrophils # Seg Neutrophils # Man Lymphocytes # (Manual) Eosinophils # (Manual) PT Activated Coag Time Heparin Anti-Xa Level ABG pH 7.203 L ABG pO2 43.7 L ABG HCO3 27.7 H ABG O2 Saturation 63.0 L ABG Base Excess ABG Hemoglobin 10.6 L Oxyhemoglobin 61.6 L Sodium Potassium Chloride Carbon Dioxide BUN Creatinine Glucose POC Glucose 131 H Lactic Acid Calcium Phosphorus Magnesium Direct Bilirubin AST ALT Alkaline Phosphatase Total Creatine Kinase CK-MB (CK-2) CK-MB (CK-2) Rel Index Troponin T C-Reactive Protein Total Protein Albumin Triglycerides Ur Specific [place] 1.000 L Urine Blood Urine WBC (Auto) 21.0 H Urine Creatinine Digoxin Coronavirus (PCR) 04/28/22 04/28/22 04/29/22 16:20 16:27 00:32 WBC RBC Hgb Hct RDW Plt Count Lymph % (Auto) [place] % (Auto) Eos % (Auto) Lymph # (Auto) [place] # (Auto) Eos # (Auto) Seg Neutrophils % Seg Neuts % (Manual) Lymphocytes % (Manual) Eosinophils % (Manual) Seg Neutrophils # Seg Neutrophils # Man Lymphocytes # (Manual) Eosinophils # (Manual) PT Activated Coag Time Heparin Anti-Xa Level ABG pH 7.461 H ABG pO2 99.9 H ABG HCO3 28.0 H ABG O2 Saturation ABG Base Excess 3.9 H ABG Hemoglobin 7.7 L Oxyhemoglobin Sodium Potassium Chloride Carbon Dioxide BUN Creatinine Glucose POC Glucose 136 H 205 H Lactic Acid Calcium Phosphorus Magnesium Direct Bilirubin AST ALT Alkaline Phosphatase Total Creatine Kinase CK-MB (CK-2) CK-MB (CK-2) Rel Index Troponin T C-Reactive Protein Total Protein Albumin Triglycerides Ur Specific [place] Urine Blood Urine WBC (Auto) Urine Creatinine Digoxin Coronavirus (PCR) 04/29/22 04/29/22 04/29/22 02:35 03:20 04:20 WBC 19.8 H RBC 3.17 L Hgb 9.0 L Hct 27.9 L RDW Plt Count 481 H Lymph % (Auto) 5.7 L [place] % (Auto) 7.8 H Eos % (Auto) Lymph # (Auto) 1.1 L [place] # (Auto) 1.5 H Eos # (Auto) 0.8 H Seg Neutrophils % 82.0 H Seg Neuts % (Manual) Lymphocytes % (Manual) Eosinophils % (Manual) Seg Neutrophils # 16.3 H Seg Neutrophils # Man Lymphocytes # (Manual) Eosinophils # (Manual) PT Activated Coag Time Heparin Anti-Xa Level ABG pH 7.487 H ABG pO2 176.1 H ABG HCO3 27.6 H ABG O2 Saturation 99.2 H ABG Base Excess 4.0 H ABG Hemoglobin 9.6 L Oxyhemoglobin Sodium Potassium Chloride Carbon Dioxide BUN Creatinine Glucose POC Glucose 223 H Lactic Acid Calcium Phosphorus Magnesium Direct Bilirubin AST ALT Alkaline Phosphatase Total Creatine Kinase CK-MB (CK-2) CK-MB (CK-2) Rel Index Troponin T C-Reactive Protein Total Protein Albumin Triglycerides Ur Specific [place] Urine Blood Urine WBC (Auto) Urine Creatinine Digoxin Coronavirus (PCR) 04/29/22 04/29/22 04/29/22 04:20 05:43 09:38 WBC RBC Hgb Hct RDW Plt Count Lymph % (Auto) [place] % (Auto) Eos % (Auto) Lymph # (Auto) [place] # (Auto) Eos # (Auto) Seg Neutrophils % Seg Neuts % (Manual) Lymphocytes % (Manual) Eosinophils % (Manual) Seg Neutrophils # Seg Neutrophils # Man Lymphocytes # (Manual) Eosinophils # (Manual) PT Activated Coag Time Heparin Anti-Xa Level ABG pH ABG pO2 ABG HCO3 ABG O2 Saturation ABG Base Excess ABG Hemoglobin Oxyhemoglobin Sodium Potassium Chloride Carbon Dioxide BUN 30 H Creatinine 1.6 H Glucose 236 H POC Glucose 202 H Lactic Acid Calcium 8.1 L Phosphorus Magnesium Direct Bilirubin AST 143 H ALT 105 H Alkaline Phosphatase 210 H Total Creatine Kinase CK-MB (CK-2) CK-MB (CK-2) Rel Index Troponin T C-Reactive Protein Total Protein 6.2 L Albumin 2.0 L Triglycerides Ur Specific [place] Urine Blood Urine WBC (Auto) Urine Creatinine Digoxin Coronavirus (PCR) Positive A 04/29/22 04/29/22 04/29/22 12:08 18:14 21:11 WBC RBC Hgb Hct RDW Plt Count Lymph % (Auto) [place] % (Auto) Eos % (Auto) Lymph # (Auto) [place] # (Auto) Eos # (Auto) Seg Neutrophils % Seg Neuts % (Manual) Lymphocytes % (Manual) Eosinophils % (Manual) Seg Neutrophils # Seg Neutrophils # Man Lymphocytes # (Manual) Eosinophils # (Manual) PT Activated Coag Time Heparin Anti-Xa Level ABG pH ABG pO2 ABG HCO3 ABG O2 Saturation ABG Base Excess ABG Hemoglobin Oxyhemoglobin Sodium Potassium Chloride Carbon Dioxide BUN Creatinine Glucose POC Glucose 152 H 151 H 140 H Lactic Acid Calcium Phosphorus Magnesium Direct Bilirubin AST ALT Alkaline Phosphatase Total Creatine Kinase CK-MB (CK-2) CK-MB (CK-2) Rel Index Troponin T C-Reactive Protein Total Protein Albumin Triglycerides Ur Specific [place] Urine Blood Urine WBC (Auto) Urine Creatinine Digoxin Coronavirus (PCR) 04/29/22 04/30/22 04/30/22 23:58 04:25 04:25 WBC 13.3 H RBC 2.81 L Hgb 8.0 L Hct 24.4 L RDW Plt Count 441 H Lymph % (Auto) [place] % (Auto) Eos % (Auto) Lymph # (Auto) [place] # (Auto) Eos # (Auto) Seg Neutrophils % Seg Neuts % (Manual) Lymphocytes % (Manual) Eosinophils % (Manual) Seg Neutrophils # Seg Neutrophils # Man Lymphocytes # (Manual) Eosinophils # (Manual) PT Activated Coag Time Heparin Anti-Xa Level ABG pH ABG pO2 ABG HCO3 ABG O2 Saturation ABG Base Excess ABG Hemoglobin Oxyhemoglobin Sodium Potassium 3.2 L Chloride Carbon Dioxide BUN 26 H Creatinine 1.5 H Glucose 105 H POC Glucose 135 H Lactic Acid Calcium 8.0 L Phosphorus Magnesium Direct Bilirubin 0.3 H AST 138 H ALT 94 H Alkaline Phosphatase 172 H Total Creatine Kinase CK-MB (CK-2) CK-MB (CK-2) Rel Index Troponin T C-Reactive Protein Total Protein 5.5 L Albumin 2.0 L Triglycerides Ur Specific [place] Urine Blood Urine WBC (Auto) Urine Creatinine Digoxin Coronavirus (PCR) 04/30/22 04/30/22 04/30/22 04:25 05:20 10:19 WBC RBC Hgb Hct RDW Plt Count Lymph % (Auto) [place] % (Auto) Eos % (Auto) Lymph # (Auto) [place] # (Auto) Eos # (Auto) Seg Neutrophils % Seg Neuts % (Manual) Lymphocytes % (Manual) Eosinophils % (Manual) Seg Neutrophils # Seg Neutrophils # Man Lymphocytes # (Manual) Eosinophils # (Manual) PT Activated Coag Time Heparin Anti-Xa Level ABG pH 7.514 H ABG pO2 73.4 L ABG HCO3 28.1 H ABG O2 Saturation ABG Base Excess 4.8 H ABG Hemoglobin 7.8 L Oxyhemoglobin 94.9 L Sodium Potassium 3.3 L Chloride Carbon Dioxide BUN 26 H Creatinine 1.4 H Glucose 108 H POC Glucose Lactic Acid Calcium 7.5 L Phosphorus Magnesium Direct Bilirubin AST 183 H ALT 112 H Alkaline Phosphatase 175 H Total Creatine Kinase CK-MB (CK-2) CK-MB (CK-2) Rel Index Troponin T C-Reactive Protein Total Protein 5.0 L Albumin 2.1 L Triglycerides Ur Specific [place] Urine Blood Urine WBC (Auto) Urine Creatinine Digoxin 0.6 L Coronavirus (PCR) 04/30/22 04/30/22 04/30/22 12:46 17:37 21:18 WBC RBC Hgb Hct RDW Plt Count Lymph % (Auto) [place] % (Auto) Eos % (Auto) Lymph # (Auto) [place] # (Auto) Eos # (Auto) Seg Neutrophils % Seg Neuts % (Manual) Lymphocytes % (Manual) Eosinophils % (Manual) Seg Neutrophils # Seg Neutrophils # Man Lymphocytes # (Manual) Eosinophils # (Manual) PT Activated Coag Time Heparin Anti-Xa Level ABG pH ABG pO2 ABG HCO3 ABG O2 Saturation ABG Base Excess ABG Hemoglobin Oxyhemoglobin Sodium Potassium Chloride Carbon Dioxide BUN Creatinine Glucose POC Glucose 109 H 143 H 182 H Lactic Acid Calcium Phosphorus Magnesium Direct Bilirubin AST ALT Alkaline Phosphatase Total Creatine Kinase CK-MB (CK-2) CK-MB (CK-2) Rel Index Troponin T C-Reactive Protein Total Protein Albumin Triglycerides Ur Specific [place] Urine Blood Urine WBC (Auto) Urine Creatinine Digoxin Coronavirus (PCR) 04/30/22 05/01/22 05/01/22 23:41 04:00 04:44 WBC 16.9 H RBC 3.03 L Hgb 8.7 L Hct 26.7 L RDW Plt Count 566 H Lymph % (Auto) [place] % (Auto) Eos % (Auto) Lymph # (Auto) [place] # (Auto) Eos # (Auto) Seg Neutrophils % Seg Neuts % (Manual) Lymphocytes % (Manual) Eosinophils % (Manual) Seg Neutrophils # Seg Neutrophils # Man Lymphocytes # (Manual) Eosinophils # (Manual) PT Activated Coag Time Heparin Anti-Xa Level ABG pH ABG pO2 ABG HCO3 ABG O2 Saturation ABG Base Excess ABG Hemoglobin Oxyhemoglobin Sodium Potassium Chloride 107.1 H Carbon Dioxide BUN 33 H Creatinine 1.5 H Glucose 161 H POC Glucose 196 H Lactic Acid Calcium 8.0 L Phosphorus Magnesium Direct Bilirubin AST 137 H ALT 111 H Alkaline Phosphatase 183 H Total Creatine Kinase CK-MB (CK-2) CK-MB (CK-2) Rel Index Troponin T C-Reactive Protein Total Protein Albumin 2.1 L Triglycerides 214 H Ur Specific [place] Urine Blood Urine WBC (Auto) Urine Creatinine Digoxin Coronavirus (PCR) 05/01/22 05:07 WBC RBC Hgb Hct RDW Plt Count Lymph % (Auto) [place] % (Auto) Eos % (Auto) Lymph # (Auto) [place] # (Auto) Eos # (Auto) Seg Neutrophils % Seg Neuts % (Manual) Lymphocytes % (Manual) Eosinophils % (Manual) Seg Neutrophils # Seg Neutrophils # Man Lymphocytes # (Manual) Eosinophils # (Manual) PT Activated Coag Time Heparin Anti-Xa Level ABG pH ABG pO2 ABG HCO3 ABG O2 Saturation ABG Base Excess ABG Hemoglobin Oxyhemoglobin Sodium Potassium Chloride Carbon Dioxide BUN Creatinine Glucose POC Glucose 145 H Lactic Acid Calcium Phosphorus Magnesium Direct Bilirubin AST ALT Alkaline Phosphatase Total Creatine Kinase CK-MB (CK-2) CK-MB (CK-2) Rel Index Troponin T C-Reactive Protein Total Protein Albumin Triglycerides Ur Specific [place] Urine Blood Urine WBC (Auto) Urine Creatinine Digoxin Coronavirus (PCR) Chest x-ray: image reviewed (persistent pulmonary edema pattern with bibasilar predominant infiltrates) Allied health notes reviewed: nursing
[2022-05-01] MEDS: fentaNYL DRIP Premix 2,000 MCG/100 ML BAG IV SCH ×2 (10:49→17:25)
[2022-05-01 11:01] LABS: ABG Base Excess 2.9 mmol/L (-2.0-3.0); ABG HCO3 26.7 mmol/L (20.0-26.0); ABG Methemoglobin 0.5 % (0.0-1.5); ABG PCO2 35.3 mm Hg; ABG PH 7.496 pH Units (7.350-7.450); ABG PO2 72.8 mm Hg (80.0-90.0)
--- NOTE | 2022-05-01 11:36 | Progress Note ---
Assessment and Plan Cultures: 04/17/2022 blood culture: No growth 04/17/2022 tracheal aspirate culture: Usual respiratory adina 04/18/2022 urine culture: No growth 04/26/2022 blood culture: No growth 04/26/2022 urine culture: No growth 04/28/2022 sputum culture: In process 04/28/2022 urine culture: No growth 04/29/2022 COVID-19 PCR: Positive A/P: 62-year-old male with obesity, hypertension, diabetes, atrial fibrillation was admitted to the hospital on 04/17/2022 with out of hospital cardiac arrest/V. fib arrest with ROSC. He was severely acidotic, placed on pressors, intubated, on mechanical ventilation: #Severe sepsis: Ruled out bacteremia, catheter associated UTI so far. COVID-19 positive. #COVID-19: #S/p [id number] cardiac arrest/V. fib arrest, cardiogenic shock, non- ischemic cardiomyopathy #VINCENT: Renally adjust antibiotics. Creatinine gradually better. #Aspiration pneumonia #Acute hypoxic respiratory failure: On mechanical ventilation. #Acute urinary retention: Has Dunbar catheter in place. #Elevated LFTs: RUQ ultrasound showed fatty liver. Recs: -continue steroids for COVID-19 -continue remdesivir D2 of 5 -given fevers and possibility of bacterial infection, not a candidate for Actemra -Continue empiric IV cefepime and vancomycin. Stop vancomycin if resp culture does not grow MRSA -Follow-up sputum culture from 04/28/2022 Orion Chung MD, [facility] O: [phone] F: [phone] C: [phone] Subjective Date of service: 05/01/22 Principal diagnosis: AHRF; AMS; Pneumonia; Shock; DM II; Severe Metabolic Acidosis Interval history: Low-grade fevers. Remains on the vent. Objective - Exam Narrative Exam: Physical Exam: Constitutional: intubated, on the vent Head, Ears, Nose: Normocephalic, atraumatic. External ears, nose normal Eyes: Conjunctivae/corneas clear. No icterus. No ptosis. Neck: intubated Oral: intubated Cardiovascular: S1, S2 + Respiratory: AE fair bilaterally and equal GI: Soft, bowel sounds + Musculoskeletal: No pedal edema, no cyanosis. Skin: No rash or abscess Hem/Lymphatic: No palpable cervical or supraclavicular nodes. No lymphangitis Psych: no agitation Neurological: intubated, on the vent, exam limited - Constitutional Vitals: Vital Signs Temp Pulse Resp BP Pulse Ox 100.8 F H 84 24 127/75 96 05/01/22 08:00 05/01/22 11:15 05/01/22 11:15 05/01/22 11:15 05/01/22 11:15 Temperature -Last 24 Hours Temperature 100.8 F Temperature 99.8 F Temperature 100.7 F Temperature 99 F Temperature 100.2 F - Labs CBC & Chem 7: 05/01/22 04:44 05/01/22 04:00 Labs: Abnormal lab results 04/30/22 04/30/22 04/30/22 Range/Units 12:46 17:37 21:18 WBC (4.5-11.0) K/mm3 RBC (3.65-5.03) M/mm3 Hgb (11.8-15.2) gm/dl Hct (35.5-45.6) % Plt Count (140-440) K/mm3 ABG pH (7.350-7.450) pH Units ABG pO2 (80.0-90.0) mm Hg ABG HCO3 (20.0-26.0) mmol/L ABG Hemoglobin (14.0-18.0) gm/dl Chloride (98-107) mmol/L BUN (9-20) mg/dL Creatinine (0.8-1.3) mg/dL Glucose (75-100) mg/dL POC Glucose 109 H 143 H 182 H (70-105) mg/dL Calcium (8.4-10.2) mg/dL AST (5-40) units/L ALT (7-56) units/L Alkaline Phosphatase (35-129) units/L Albumin (3.9-5) g/dL Triglycerides (2-149) mg/dL 04/30/22 05/01/22 05/01/22 Range/Units 23:41 04:00 04:44 WBC 16.9 H (4.5-11.0) K/mm3 RBC 3.03 L (3.65-5.03) M/mm3 Hgb 8.7 L (11.8-15.2) gm/dl Hct 26.7 L (35.5-45.6) % Plt Count 566 H (140-440) K/mm3 ABG pH (7.350-7.450) pH Units ABG pO2 (80.0-90.0) mm Hg ABG HCO3 (20.0-26.0) mmol/L ABG Hemoglobin (14.0-18.0) gm/dl Chloride 107.1 H (98-107) mmol/L BUN 33 H (9-20) mg/dL Creatinine 1.5 H (0.8-1.3) mg/dL Glucose 161 H (75-100) mg/dL POC Glucose 196 H (70-105) mg/dL Calcium 8.0 L (8.4-10.2) mg/dL AST 137 H (5-40) units/L ALT 111 H (7-56) units/L Alkaline Phosphatase 183 H (35-129) units/L Albumin 2.1 L (3.9-5) g/dL Triglycerides 214 H (2-149) mg/dL 05/01/22 05/01/22 Range/Units 05:07 09:40 WBC (4.5-11.0) K/mm3 RBC (3.65-5.03) M/mm3 Hgb (11.8-15.2) gm/dl Hct (35.5-45.6) % Plt Count (140-440) K/mm3 ABG pH 7.496 H (7.350-7.450) pH Units ABG pO2 72.8 L (80.0-90.0) mm Hg ABG HCO3 26.7 H (20.0-26.0) mmol/L ABG Hemoglobin 8.5 L (14.0-18.0) gm/dl Chloride (98-107) mmol/L BUN (9-20) mg/dL Creatinine (0.8-1.3) mg/dL Glucose (75-100) mg/dL POC Glucose 145 H (70-105) mg/dL Calcium (8.4-10.2) mg/dL AST (5-40) units/L ALT (7-56) units/L Alkaline Phosphatase (35-129) units/L Albumin (3.9-5) g/dL Triglycerides (2-149) mg/dL
--- NOTE | 2022-05-01 11:38 | Progress Note ---
<ANDIE MARIANO - Last Filed: 05/01/22 18:50> Assessment and Plan Assessment and plan: This is a 61-year-old male with known past medical history of obsesity, DM, HTN, and Atrial fibrillation s/p cardioversion over 12hrs ago, unclear if patient was on AC at home admitted s/p outside of the hospital cardiac arrest/V-fib arrest with ROSC. Hospital Course to Date: 04/18: Severely acidotic this am, now on bcarb gtt. On high dose pressors- Levophed and Vaso. Afib in control rate on the monitor, on Amiodarone and heparin gtt per protocol. Cardiology is following. Patient remains afebrile and leukocytosis improved this am. Now with worsen renal function and low UOP. Patient's EF is 25 to 30%, Dobutamine gtt initiated. Continue current IV abx, continue to trend troponin and lactic acid. Nephrology also consulted for further recs. BLE swelling noted, BLE doppler ordered to r/o DVT. 04/19: Agitation with low SPO2 overnight, sedation increased. This am ABG with worsen hypoxia on 40% Fio2, SPO2 at 90% this am. Fio2 increased to 50%, SPO2 improved above 92%. Remains on multiple pressors and bcarb gtt. Now on dopamine gtt, in Afib with RVR on the monitor. Still on Amiodarone and heparin gtts. Echo noted, EF 15 to 20%. Cardiology is following. With worsen renal function, however making urine this am. 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 Will continue to monitor. Monitor and replace electrolytes as needed 04/20: Nephrology spoke to at bedside re HD, cardiology will proceed with [facility] if patient is to recieve HD post procedure, vent changes per [facility], Sedated with fentanyl and propofol with heparin and amio gtt infusing. 04/21: LHC today. Nephrology will continue IVF and if renal function worsens then will proceed HD with consent from family. Patient became hypoxic with FiO2 at 40% yesterday evening and is currently at 65%. 04/22: Patient was started on vasopressin IV fluids yesterday and his creatinine decreased from 4.2 to 2.9. Patient severely agitated while on propofol and fentanyl. Started low-dose Seroquel and started to wean propofol as tolerated. Patient does follow commands today. Increase in lantus. IV fluids decreased, started on dobutamine per CCM and wean vasopressin for target MAP of 65-70 and SBP greater than 110 04/23: This morning patient being extremely hypertensive with SBP into 200s and given metoprolol. Rn asked to wean propofol as tolerated. Dobutamine decreased to 2.5. Cr improved. US chest completed and showed no pleural effusions. This afternoon alerted by RN that RT believes pt bite through his tube and anesthesia was called to bedside for tube exchange. Decision was made to extubate and reintubate the patient. CXR ordered. 04/24: Patient placed on CPAP trial. Renal numbers look better today. Cardiology would like to try digoxin. No acute events reported overnight. 04/25: Patient now with hypernatremia, slightly increased renal function today but still putting out over 1 L urine over the past 24 hours. Will increase free water flushes and repleate potassium cautiously. Cardilogy will like to continue current management. PSV when able 04/26: Cardiology will increase amiodarone due to heart rate being in the 110s to 120s and will hold off digoxin, remains on dobutamine drip. Hypernatremia improving. Remains on D5 W per nephrology. PSV this AM. Rash noted to trunk, arms, chest. RN to hold off Seroquel. Started on IV Benadryl. Already n.p.o. famotidine. Updated [place] physician who also informed me that the patient is allergic to lisinopril (angioedema) 04/27: Tolerating PSV trail this am on low dose sedation. Per CCM, plan to wean vent setting for possible extubation. If patient requires higher dose of sedation, will add precedex gtt for trial to wean off sedation. Patient with low grade fevers with worsening leukopcytosis, B.cultures from yesterday with NGTD. Will do a lines vacations, D/C CVC and penn. Patient is hemodynamically stable, will continue to monitor for now. Patient is also net positive balance since admit, hypernatremia resolved, and renal function improved, will decrease IVF fo r now. Nephrology is also following. 04/28: Self-extubated this afternoon, requiring emergent reintubation. Flash pulmonary edema noted during intubation, X1 dose of IV lasix administered. Currently hypertensive and Afib with RVR, HR in the 110-130s, sedations resumed. Persistent fevers overnight with leukocytosis, repeat blood culture with no growth. Orders placed for UA and repeat sputum culture. Empiric IV Abx, Cefepine and vanc initiated. ID was also consulted. Continue vent wean/adjustment per CCM. Penn was reinserted overnight due to retention, will reassess in the next 24hrs to 48hrs. 04/29: Remains stable on the vent, this am CXR and ABG with significant improvement. On low dose pressors this am, MAP in the 70s, titrate pressor to maintain MAP in the 70s. Still with persistent fevers despite current IV abx, repeat cultures with NGTD. Orders placed for COVID and Flu PCR.. Worsen LFTs this am, d/w Cardio will D/C PO amio, X2 dose of IV digoxin for rate control. Renal function stable, patient responded well to IV lasix, over 5L out in last 24hrs. Will hold off on diurese today per Nephro, will reassess in the am. Insulin regimen adjusted for hyperglycemia. 04/30: Stable on low vent settings this am. Off pressors, fevers and leukocytosis improved. COVID PCR came back positive, IV steroids initiated. And ID recommendations noted- continue Cefepine and Vanc, Redemsevir added. Remains with transaminitis, abdominal US pending. Patient remains in Afib control, tolerated IV dig. Plan for daily PO dig per Cardiology. Renal function is stable, X1 dose of IV lasix today. K repleted, continue to monitor and replace electrolytes as needed. 05/01: Remains stable on the vent. Fevers improved and VSS. Plan to wean propofol gtt for possible PSV trial this am. Okay to SBT on low dose fentynal gtt per CCM. Tolerated IV lasix, good UOP overnight. Renal function remains stable, will continue to monitor. Possible transfer to [place] whenever a bed is available. Assessment and Plan #Cardiogenic Shock #S/p Cardiac Arrest/V-Fib Arrest with ROSC #NSTEMI #H/o Atrial Fibrillation, HTN - Found in the bathroom unresponsive at a [facility] facility. - EMS found patient in V-Fib arrest treated per ACLS ROSC achieved - Positive troponinX3, EKG with no significant ST changes - s/p Dopamine and Dobutamine gtts - Afib control on the monitor, HR 90-100s - 2D echo reviewed. EF 15 to 20% - [facility] severe nonischemic cardiomyopathy with patent coronary arteries, which per cardiology presumably resulted in a primary cardiac arrest. - PO Amio held due to worsen LFts - S/p X2 dose IV dig, now on daily PO Dig per Cardio - Continue blood pressure monitor per protocol - Maintain MAP above 65 and SBP less than 160 #Acute Hypoxemic Respiratory Failure - Intubated in the filed during code on 04/17 - [id number] this afternoon, requiring emergent reintubation - Flash pulmonary edema noted during reintubation X1 dose of IV lasix - Vent setting: PRBC-30%,6,16,500 - CCM consulted, appreciate recommendations - Continue vent adjustement per CCM - VAP bundle addressed - Aspiration precaution HOB above 30 - Daily SBT and SAT trials as tolerated - Daily ABG and CXR - Continue SPO2 monitoring for SPO2 goal above 92% - Per CCM, plan to wean vent setting for possible extubation. #Acute Metabolic Encephalopathy-improved #Agitation-improved #Face Contusion s/p Fall-improved - Found in the bathroom unresponsive at a [facility] facility. Most likely fell and hit his head - CT head reviewed, no acute intracranial abnormality - While awake on sedations, on low dose propofol - If patient requires higher dose of sedation, will add precedex gtt for trial to wean off sedation. - Daily SAT and SBT per [facility] - Avoid benzodiazepine to reduce the possibility of delirium - PRN Analgesia CPOT greater than 3 - Maintenance of sleep-wake cycle #Acute Kidney Injury(VINCENT) most likely ATN #Hypernatremia-improved #Hypekalemia-resolved - secondary to above. hypoperfusion/hypotension - Patient also received IV contrast - Baseline renal function is unknown - Hypernatremia and renal function improved - Nephrology on consult, appreciated recommendation - S/p X1 dose of IV lasix, flash pulmonary edema noted during intubation - Strict intake and output - Avoid nephrotoxic medications; Renally dose medications - Penn in place with great UOP over 5L in last 24hrs - Monitor and replace electrolytes as needed - Continue FWF #Sepsis #Bilateral Pneumonia #COVID 19 Infection #Severe Metabolic Acidosis-resolved - Initial Imaging reveals bilateral airspace disease, greater in the Upper lobes. Most likely aspiration - Fevers and leukocytosis improved - UA with elevated WBCs - Blood culture with NGTD, Sputum culture with usual adina - Flu PCR negative, COVID PCR positive - On IV Steroids - ID consulted, appreciate recommendations - Continue Cefepine and Vanc, & Redemsevir - F/U on cultures - Daily CBC monitor #Transaminitis #Hepatic Steatosis #Shock Liver-improved - most likely reactive from above/hypoperfusion - LFT improved post cardiac event - LFTs trending back up this am, PO amio held - Abdominal US noted, hepatic steatosis - Continue to trend LFTs #Elevated D-Dimer - CTA chest with no evidence of PE - With BLE swelling- BLE doppler pending - On Heparin #Type 2 Diabetes Mellitus - BG check and SSI Q6hrs - Lantus BID - Avoid hypoglycemia #GI/DVT Prophylaxis - PPI- Pepcid - Heparin SubQ - SCDs to bilateral lower extremities while in bed #Advance Care Planning - Disease education data, care plan, diagnoses, and prognosis were discussed with patient's at the bedside. Patient is a FULL code. Patient's acknowledged understanding and agreed with current care plan. The high probability of a clinically significant, sudden or life threatening deterioration of the [multiple] system(s) required my full and direct attention, intervention and personal management. The aggregate critical care time was [60] minutes. This time is in addition to time spent performing reported procedures but includes the following: [x] Data Review and interpretation [x] Patient assessment and monitoring of vital signs [x] Documentation [x] Medication orders and management Disposition Plan: ICU Total Time Spent with Patient (Minutes): 60 History Interval history: Patient seen and examined at the bedside. Stable on the event, while awake on low dose propofol gtt. Fevers improved, off pressors this am. Afib in control rate on the monitor. VSS. GERONIMO overnight Hospitalist Physical - Physical exam Narrative exam: General appearance: Present: no acute distress, other (Intubated, while awake on sedation) - EENT Eyes: Present: PERRL - Neck Neck: Present: normal ROM - Respiratory Respiratory effort: labored Respiratory: bilateral: rhonchi - Cardiovascular Rhythm: irregularly irregular Heart Sounds: Present: S1 & S2 - Extremities Extremities: no ischemia, pulses intact, pulses symmetrical Extremity abnormal: edema - Peripheral Assessment Bilateral Upper Extremity Edema Type: Pitting Edema Degree: 3+ Capillary Refill: < 3 seconds Skin Temperature: Warm Generalized Edema Type: Pitting Edema Degree: 2+ Capillary Refill: < 3 seconds Skin Temperature: Warm Peripheral Pulses: within normal limits - Abdominal General gastrointestinal: soft, non-distended, normal bowel sounds - Integumentary Integumentary: Present: warm, dry - Psychiatric Psychiatric: other (Intubated, while awake on sedation) - Neurologic Neurologic: other (Intubated, while awake on sedation) - Allied Health Allied health notes reviewed: nursing, case management - Constitutional Vitals: Temp Pulse Resp BP Pulse Ox 100.8 F H 84 24 127/75 96 05/01/22 08:00 05/01/22 11:15 05/01/22 11:15 05/01/22 11:15 05/01/22 11:15 General appearance: Present: other (Intubated and Sedated) HEART Score - HEART Score Troponin: Troponin T 2.980 ng/mL (0.00-0.029) H* 04/19/22 07:11 Results - Labs CBC & Chem 7: 05/01/22 04:44 05/01/22 04:00 Labs: Laboratory Last Values WBC 16.9 K/mm3 (4.5-11.0) H 05/01/22 04:44 RBC 3.03 M/mm3 (3.65-5.03) L 05/01/22 04:44 Hgb 8.7 gm/dl (11.8-15.2) L 05/01/22 04:44 Hct 26.7 % (35.5-45.6) L 05/01/22 04:44 MCV 88 fl (84-94) 05/01/22 04:44 MCH 29 pg (28-32) 05/01/22 04:44 MCHC 33 % (32-34) 05/01/22 04:44 RDW 14.9 % (13.2-15.2) 05/01/22 04:44 Plt Count 566 K/mm3 (140-440) H 05/01/22 04:44 Lymph % (Auto) 5.7 % (13.4-35.0) L 04/29/22 04:20 [place] % (Auto) 7.8 % (0.0-7.3) H 04/29/22 04:20 Eos % (Auto) 3.9 % (0.0-4.3) 04/29/22 04:20 Baso % (Auto) 0.6 % (0.0-1.8) 04/29/22 04:20 Lymph # (Auto) 1.1 K/mm3 (1.2-5.4) L 04/29/22 04:20 [place] # (Auto) 1.5 K/mm3 (0.0-0.8) H 04/29/22 04:20 Eos # (Auto) 0.8 K/mm3 (0.0-0.4) H 04/29/22 04:20 Baso # (Auto) 0.1 K/mm3 (0.0-0.1) 04/29/22 04:20 Add Manual Diff Complete 04/23/22 04:19 Total Counted 100 04/23/22 04:19 Seg Neutrophils % 82.0 % (40.0-70.0) H 04/29/22 04:20 Seg Neuts % (Manual) 74.0 % (40.0-70.0) H 04/23/22 04:19 Band Neutrophils % 2.0 % 04/23/22 04:19 Lymphocytes % (Manual) 10.0 % (13.4-35.0) L 04/23/22 04:19 Reactive Lymphs % (Man) 0 % 04/23/22 04:19 Monocytes % (Manual) 7.0 % (0.0-7.3) 04/23/22 04:19 Eosinophils % (Manual) 7.0 % (0.0-4.3) H 04/23/22 04:19 Basophils % (Manual) 0 % (0.0-1.8) 04/23/22 04:19 Metamyelocytes % 0 % 04/23/22 04:19 Myelocytes % 0 % 04/23/22 04:19 Promyelocytes % 0 % 04/23/22 04:19 Blast Cells % 0 % 04/23/22 04:19 Nucleated RBC % Not Reportable 04/23/22 04:19 Seg Neutrophils # 16.3 K/mm3 (1.8-7.7) H 04/29/22 04:20 Seg Neutrophils # Man 8.0 K/mm3 (1.8-7.7) H 04/23/22 04:19 Band Neutrophils # 0.2 K/mm3 04/23/22 04:19 Lymphocytes # (Manual) 1.1 K/mm3 (1.2-5.4) L 04/23/22 04:19 Abs React Lymphs (Man) 0.0 K/mm3 04/23/22 04:19 Monocytes # (Manual) 0.8 K/mm3 (0.0-0.8) 04/23/22 04:19 Eosinophils # (Manual) 0.8 K/mm3 (0.0-0.4) H 04/23/22 04:19 Basophils # (Manual) 0.0 K/mm3 (0.0-0.1) 04/23/22 04:19 Metamyelocytes # 0.0 K/mm3 04/23/22 04:19 Myelocytes # 0.0 K/mm3 04/23/22 04:19 Promyelocytes # 0.0 K/mm3 04/23/22 04:19 Blast Cells # 0.0 K/mm3 04/23/22 04:19 WBC Morphology Not Reportable 04/23/22 04:19 Hypersegmented Neuts Not Reportable 04/23/22 04:19 Hyposegmented Neuts Not Reportable 04/23/22 04:19 Hypogranular Neuts Not Reportable 04/23/22 04:19 Smudge Cells Not Reportable 04/23/22 04:19 Toxic Granulation Not Reportable 04/23/22 04:19 Toxic Vacuolation Not Reportable 04/23/22 04:19 Dohle Bodies Not Reportable 04/23/22 04:19 Pelger-Huet Anomaly Not Reportable 04/23/22 04:19 Regla Rods Not Reportable 04/23/22 04:19 Platelet Estimate Consistent w auto 04/23/22 04:19 Clumped Platelets Not Reportable 04/23/22 04:19 Plt Clumps, EDTA Not Reportable 04/23/22 04:19 Large Platelets Not Reportable 04/23/22 04:19 Giant Platelets Not Reportable 04/23/22 04:19 Platelet Satelliting Not Reportable 04/23/22 04:19 Plt Morphology Comment Not Reportable 04/23/22 04:19 RBC Morphology Not Reportable 04/23/22 04:19 Dimorphic RBCs Not Reportable 04/23/22 04:19 Polychromasia Not Reportable 04/23/22 04:19 Hypochromasia Not Reportable 04/23/22 04:19 Poikilocytosis Not Reportable 04/23/22 04:19 Anisocytosis Not Reportable 04/23/22 04:19 Microcytosis Not Reportable 04/23/22 04:19 Macrocytosis Not Reportable 04/23/22 04:19 Spherocytes Not Reportable 04/23/22 04:19 Pappenheimer Bodies Not Reportable 04/23/22 04:19 Sickle Cells Not Reportable 04/23/22 04:19 Target Cells Not Reportable 04/23/22 04:19 Tear Drop Cells Not Reportable 04/23/22 04:19 Ovalocytes Not Reportable 04/23/22 04:19 Helmet Cells Not Reportable 04/23/22 04:19 [place]-Star[place] Bodies Not Reportable 04/23/22 04:19 [place] Rings Not Reportable 04/23/22 04:19 [place] Cells Not Reportable 04/23/22 04:19 Bite Cells Not Reportable 04/23/22 04:19 Crenated Cell Not Reportable 04/23/22 04:19 Elliptocytes Not Reportable 04/23/22 04:19 Acanthocytes (Spur) Not Reportable 04/23/22 04:19 Rouleaux Not Reportable 04/23/22 04:19 Hemoglobin C Crystals Not Reportable 04/23/22 04:19 Schistocytes Not Reportable 04/23/22 04:19 Malaria parasites Not Reportable 04/23/22 04:19 [place] Bodies Not Reportable 04/23/22 04:19 Hem Pathologist Commnt No 04/23/22 04:19 PT 15.6 Sec. (12.2-14.9) H 04/18/22 Unknown INR 1.08 (0.87-1.13) 04/18/22 Unknown APTT 28.6 Sec. (24.2-36.6) 04/18/22 Unknown Activated Coag Time 179 (74-137) H 04/21/22 12:14 Heparin Anti-Xa Level 0.16 U.I./ml (0.3-0.7) L 04/21/22 04:00 ABG pH 7.496 pH Units (7.350-7.450) H 05/01/22 09:40 ABG pCO2 35.3 mm Hg 05/01/22 09:40 ABG pO2 72.8 mm Hg (80.0-90.0) L 05/01/22 09:40 ABG HCO3 26.7 mmol/L (20.0-26.0) H 05/01/22 09:40 ABG O2 Saturation 97.0 % (95.0-99.0) 05/01/22 09:40 ABG O2 Content 4.9 (0.0-44) 05/01/22 09:40 ABG Base Excess 2.9 mmol/L (-2.0-3.0) 05/01/22 09:40 ABG Hemoglobin 8.5 gm/dl (14.0-18.0) L 05/01/22 09:40 ABG Carboxyhemoglobin 1.5 % (0.0-5.0) 05/01/22 09:40 ABG Methemoglobin 0.5 % (0.0-1.5) 05/01/22 09:40 Oxyhemoglobin 95.0 % (95.0-99.0) 05/01/22 09:40 FiO2 30 % 05/01/22 09:40 Sodium 143 mmol/L (137-145) 05/01/22 04:00 Potassium 4.0 mmol/L (3.6-5.0) D 05/01/22 04:00 Chloride 107.1 mmol/L (98-107) H 05/01/22 04:00 Carbon Dioxide 25 mmol/L (22-30) 05/01/22 04:00 Anion Gap 15 mmol/L 05/01/22 04:00 BUN 33 mg/dL (9-20) H 05/01/22 04:00 Creatinine 1.5 mg/dL (0.8-1.3) H 05/01/22 04:00 Estimated GFR 57 ml/min 05/01/22 04:00 BUN/Creatinine Ratio 22 % 05/01/22 04:00 Glucose 161 mg/dL (75-100) H 05/01/22 04:00 POC Glucose 145 mg/dL (70-105) H 05/01/22 05:07 Lactic Acid 1.90 mmol/L (0.7-2.0) 04/21/22 04:20 Calcium 8.0 mg/dL (8.4-10.2) L 05/01/22 04:00 Phosphorus 4.00 mg/dL (2.5-4.5) D 05/01/22 04:00 Magnesium 1.90 mg/dL (1.7-2.3) 05/01/22 04:00 Total Bilirubin 0.50 mg/dL (0.1-1.2) 05/01/22 04:00 Direct Bilirubin 0.3 mg/dL (0-0.2) H 04/30/22 04:25 Indirect Bilirubin 0.1 mg/dL 04/30/22 04:25 AST 137 units/L (5-40) H 05/01/22 04:00 ALT 111 units/L (7-56) H 05/01/22 04:00 Alkaline Phosphatase 183 units/L (35-129) H 05/01/22 04:00 Total Creatine Kinase 61 units/L (55-170) 04/29/22 04:20 CK-MB (CK-2) 28.5 ng/mL (0.0-4.0) H 04/19/22 07:11 CK-MB (CK-2) Rel Index 0.8 (0-4) 04/19/22 07:11 Troponin T 2.980 ng/mL (0.00-0.029) H* 04/19/22 07:11 C-Reactive Protein 15.30 mg/dL (0.00-1.30) H 04/28/22 08:20 Total Protein 6.5 g/dL (6.3-8.2) D 05/01/22 04:00 Albumin 2.1 g/dL (3.9-5) L 05/01/22 04:00 Albumin/Globulin Ratio 0.5 % 05/01/22 04:00 Triglycerides 214 mg/dL (2-149) H 05/01/22 04:00 Cholesterol 106 mg/dL (50-199) 04/17/22 19:56 LDL Cholesterol Direct 57 mg/dL (50-130) 04/17/22 19:56 HDL Cholesterol 40 mg/dL (40-59) 04/17/22 19:56 Cholesterol/HDL Ratio 2.65 % 04/17/22 19:56 Procalcitonin 2.90 ng/mL (<0.15) 04/28/22 Unknown Urine Color Straw (Yellow) 04/28/22 08:35 Urine Turbidity Clear (Clear) 04/28/22 08:35 Urine pH 6.0 (5.0-7.0) 04/28/22 08:35 Ur Specific [place] 1.000 (1.003-1.030) L 04/28/22 08:35 Urine Protein 300 mg/dl mg/dL (Negative) 04/28/22 08:35 Urine Glucose (UA) Negative mg/dL (Negative) 04/28/22 08:35 Urine Ketones Negative mg/dL (Negative) 04/28/22 08:35 Urine Blood 3+ (Negative) 04/28/22 08:35 Urine Nitrite Negative (Negative) 04/28/22 08:35 Ur Reducing Substances Not Reportable 04/28/22 08:35 Urine Bilirubin Negative (Negative) 04/28/22 08:35 Urine Ictotest Not Reportable 04/28/22 08:35 Urine Urobilinogen < 2.0 mg/dL (<2.0) 04/28/22 08:35 Ur Leukocyte Esterase Small (Negative) 04/28/22 08:35 Urine WBC (Auto) 21.0 /HPF (0.0-6.0) H 04/28/22 08:35 Urine RBC (Auto) 9.0 /HPF (0.0-6.0) 04/28/22 08:35 Urine Bacteria (Auto) 2+ /HPF (Negative) 04/19/22 02:08 Urine WBC Clumps 3+ /HPF 04/19/22 02:08 RBC Casts 34 /LPF 04/19/22 02:08 Urine Mucus Few /HPF 04/28/22 08:35 Urine Yeast (Budding) 3+ /HPF 04/19/22 02:08 Urine Eosinophils None seen (None Seen) 04/19/22 02:08 Urine Creatinine 90.9 mg/dL (0.1-20.0) H 04/19/22 02:08 Urine Sodium 54 mmol/L 04/19/22 02:08 Digoxin 0.6 ng/mL (0.9-2.0) L 04/30/22 04:25 Coronavirus (PCR) Positive (Negative) A 04/29/22 09:38 Influenza A (RT-PCR) Negative (Negative) 04/29/22 11:44 Influenza B (RT-PCR) Negative (Negative) 04/29/22 11:44 Blood Type A POSITIVE 04/21/22 04:37 Antibody Screen Negative 04/21/22 04:37 Microbiology: Microbiology 04/26/22 05:20 Peripheral/Venous Blood Culture - Final NO GROWTH AFTER 5 DAYS 04/28/22 07:26 Tracheal Aspirate Sputum Culture - Preliminary 04/26/22 08:57 Peripheral/Venous Blood Culture - Preliminary NO GROWTH AFTER 4 DAYS Penn/IV: Voiding Method Indwelling Catheter Active Medications - Current Medications Current Medications: Generic Name Dose Route Start Last Admin Trade Name Freq PRN Reason Stop Dose Admin Acetaminophen 650 mg 04/17/22 19:48 04/28/22 21:38 Acetaminophen 325 Mg Tab PO 650 mg Q6H PRN Administration Pain MILD(1-3)/Fever >100.5/CHE Albuterol 2.5 mg 04/17/22 19:48 Albuterol 2.5 Mg/3 Ml Nebu IH Q3HRT PRN Shortness Of Breath Ascorbic Acid 500 mg 04/30/22 22:00 04/30/22 22:40 Ascorbic Acid 500 Mg Tab PO 500 mg BID FLACO Administration Aspirin 81 mg 04/20/22 12:00 05/01/22 09:03 Aspirin 81 Mg Tab Chew FEEDTUBE 81 mg QDAY FLACO Administration Atorvastatin Calcium 20 mg 04/20/22 22:00 04/29/22 21:38 Atorvastatin 20 Mg Tab FEEDTUBE 20 mg QHS FLACO Administration Dexamethasone 8 mg 04/30/22 10:00 05/01/22 09:03 Dexamethasone 4 Mg/Ml Vial IV 05/09/22 10:01 8 mg DAILY FLACO Administration Dextrose 0 ml 04/17/22 23:46 Dextrose 50% In Water (25gm) 50 Ml Syringe IV Q30MIN PRN Hypoglycemia Protocol Digoxin 0.125 mg 04/30/22 17:00 04/30/22 17:39 Digoxin 0.125 Mg Tab FEEDTUBE 0.125 mg DAILY@1700 FLACO Administration Docusate Sodium 100 mg 04/27/22 11:00 05/01/22 09:10 Docusate Sodium 100 Mg/10 Ml Oral Liqd FEEDTUBE Not Given BID FLACO Doxazosin Mesylate 1 mg 04/30/22 22:00 04/30/22 22:40 Doxazosin 1 Mg Tab PO 1 mg QHS FLACO Administration Famotidine 20 mg 04/27/22 10:00 05/01/22 09:05 Famotidine 20 Mg Tab FEEDTUBE 20 mg BID FLACO Administration Fentanyl 50 mcg 04/17/22 20:22 04/30/22 22:41 Fentanyl 100 Mcg/2 Ml Inj IV 50 mcg Q10MIN PRN Administration ANALGESIA Heparin Sodium (Porcine) 5,000 unit 04/21/22 22:00 05/01/22 09:04 Heparin 5,000 Unit/1 Ml Vial SUB-Q 5,000 unit Q12HR FLACO Administration Hydrophilic Ointment 1 applic 04/18/22 06:02 04/26/22 20:29 Lip Therapy Vaseline TP 1 applic Q2HR PRN Administration Dry Lips Fentanyl Citrate 2,000 mcg in 100 mls @ 5.443 mls/hr 04/17/22 21:00 05/01/22 10:49 Fentanyl Drip Premix IV 2 mcg/kg/hr TITR FLACO 10.886 mls/hr Administration Protocol 1 MCG/KG/HR Propofol 1,000 mg in 100 mls @ 3.456 mls/hr 04/18/22 07:00 05/01/22 10:48 Diprivan 10 Mg/Ml IV 0 mcg/kg/min TITR FLACO 0 mls/hr Titration Protocol 5 MCG/KG/MIN Cefepime HCl 2 gm in 100 mls @ 200 mls/hr 04/28/22 08:00 05/01/22 08:49 Cefepime/Ns 2 Gm/100 Ml IV 200 mls/hr Q8H FLACO Administration Protocol Vancomycin HCl 1,750 mg/ 535 mls @ 333.333 mls/hr 04/28/22 10:00 05/01/22 09:09 Sodium Chloride IV 333.333 mls/hr Q24H FLACO Administration Dexmedetomidine HCl 400 mcg/ 104 mls @ 5.99 mls/hr 04/28/22 11:00 04/28/22 13:52 Sodium Chloride IV 0 mcg/kg/hr TITRATE FLACO 0 mls/hr Titration Protocol 0.2 MCG/KG/HR NORepinephrine/NS 8 MG-250 ML 8 mg in 250 mls @ 3.75 mls/hr 04/28/22 15:00 04/29/22 04:39 Norepinephrine/Ns 8 Mg-250 Ml (Double Conc) IV 4 mcg/min TITRATE FLACO 7.5 mls/hr Titration Protocol 2 MCG/MIN Remdesivir 100 mg/ Sodium 250 mls @ 500 mls/hr 05/01/22 14:00 Chloride IV 05/04/22 14:29 Q24HR@1400 FLACO Insulin Glargine 25 units 04/29/22 11:00 05/01/22 09:09 Insulin Glargine 100 Units/Ml SUB-Q 25 units BID FLACO Administration Insulin Human Lispro 0 unit 04/18/22 00:00 05/01/22 02:18 Insulin Lispro 100 Unit/Ml SUB-Q 3 unit Q6HR FLACO Administration Protocol Insulin Human Lispro 10 unit 04/29/22 12:00 05/01/22 02:18 Insulin Lispro 100 Unit/Ml SUB-Q 10 unit Q6HR FLACO Administration Multi-Ingred Cream/Lotion/Oil/Oint 1 applic 04/18/22 06:02 Mineral Oil/Petrolatum, White Ophth Oint 3.5 Gm OU Q4HR PRN Dry Eye(s) Oxycodone/Acetaminophen 1 tab 04/22/22 11:05 Oxycodone /Acetaminophen 5-325mg Tab FEEDTUBE Q6H PRN Pain, Moderate (4-6) Senna/Docusate Sodium 2 tab 04/28/22 10:00 05/01/22 09:05 Sennosides/Docusate Sodium 8.6/50 Mg Tab FEEDTUBE 2 tab BID FLACO Administration Sodium Chloride 10 ml 04/17/22 22:00 05/01/22 09:03 Sodium Chloride 0.9% 10 Ml Flush Syringe IV 10 ml BID FLACO Administration Sodium Chloride 10 ml 04/17/22 19:48 Sodium Chloride 0.9% 10 Ml Flush Syringe IV PRN PRN LINE FLUSH Sodium Chloride 50 ml 04/30/22 09:00 04/30/22 09:55 Sodium Chloride 0.9% 50 Ml Ivpb IV 05/04/22 14:01 50 ml Q24HR@1400 FLACO Administration Zinc Sulfate 220 mg 04/30/22 22:00 04/30/22 22:40 Zinc Sulfate 220 Mg Cap PO 220 mg BID FLACO Administration Nutrition/Malnutrition Assess - Dietary Evaluation Nutrition/Malnutrition Findings: Nutrition Notes Start: 04/18/22 08:52 Freq: Status: Active Protocol: Document 04/29/22 11:29 ROMELIA (Rec: 04/29/22 11:55 ROMELIA [id number]) Nutrition Notes Initial or Follow up Reassessment Current Diagnosis Acute Kidney Injury,Diabetes, Sepsis,Hypertension, Respiratory Failure Other Pertinent Diagnosis s/p PEA w/ROSC, HFrEF, Pneumonia, Transaminitis, Rabdomyolisis, .. Current Diet TF-Nepro w/CARBSTEADY @ 35 ml/ hr (from D 04/21). Labs/Tests 04/29: BUN 30, Crea 1.6, Glu 236, Ca 8.1. Pertinent Medications 04/29: Humalog 4U, Propofol @ 3.456 ml/hr (91 Kcal), mothers nutritionally unremarkable. Height 5 ft 9 in Weight 115.2 kg [place] Body Weight (kg) 72.72 BMI 37.5 Weight change and time frame No body weight change reported in 11 days. Weight Status Obese Subjective/Other Information RD consult for routine F/U on TF tolerance/continuation assessment. TF continues as prescribed, no further information available at the time. Pt continues on Mechanical Ventilation, O2 saturation @ 100%, according to Physical Assessment History notes. Pt remains incontinent, according to Physical Assessment History notes. Pt presents blisters on the groin and on hand, according to Physical Assessment History notes. Percent of energy/protein needs met: Prescribed TF-Nepro w/ CARBSTEADY @ 35 ml/hr provides for energy/protein needs (1, 500 Kcal/68 g) during LOS, 77% Kcal; 90% AA. Including 91 Kcal from Propofol: 81% Kcal; 90% AA. Burn Absent Trauma Absent GI Symptoms None Food Allergy No Skin Integrity/Comment Blisters on the groin and on hand. Current % PO Other Minimum of two criteria No Fluid Accumulation N/A Reduced [employer] Strength N/A (non-severe) Protein-Calorie Malnutrition N\A #1 Nutrition Diagnosis Inadequate oral intake Diagnosis Progress(for reassessment Continues documentation) Is patient on ventilator? Yes Is Patient Ambulatory and/or Out of Bed No REE-([place]confined to bed) 2323.608 Kcal/Kg value to use for calculation 17 Approximate Energy Requirements Using 1958 kcal/Kg Calculation Used for Recommendations Kcal/kg Additional Notes Protein: 0.8-1.2 g/Kg AdjBW; 75-113 g/day. Fluids: 1 ml/Kcal, or as per MD. Nutrition Intervention Nutrition Support: Continue TF-Nepro w/CARBSTEADY @ 35 ml/hr. Flush: 220 ml water Q 4 hr, or as per MD. Kcal 1,500 Protein (gm) 68 Carbohydrates (gm) 134 Fat (gm) 80 Fluid (mL) 606 Fiber (gm) 11 % RDI: 77% Kcal; 90% AA. Goal #1 Provide at least 75% of energy /protein needs through Enteral Feeding during LOS. Follow-Up By: 05/06/22 Additional Comments Continue monitoring TF tolerance, ventilation status, vasopressors, and BM. <GABRIELE HUFF - Last Filed: 05/02/22 07:39> Assessment and Plan Assessment and plan: I saw and evaluated the patient. I agree with the findings and the plan of care as documented in the Nurse Practitioner's~note, with the following corrections and additions. Hospitalist Physical - Constitutional Vitals: Temp Pulse Resp BP Pulse Ox 98.8 F 70 17 109/74 100 05/02/22 03:06 05/02/22 06:00 05/02/22 06:00 05/02/22 06:00 05/02/22 06:00 HEART Score - HEART Score Troponin: Troponin T 2.980 ng/mL (0.00-0.029) H* 04/19/22 07:11 Results - Labs CBC & Chem 7: 05/02/22 04:59 05/02/22 04:59 Labs: Laboratory Last Values WBC 17.9 K/mm3 (4.5-11.0) H 05/02/22 04:59 RBC 3.06 M/mm3 (3.65-5.03) L 05/02/22 04:59 Hgb 8.6 gm/dl (11.8-15.2) L 05/02/22 04:59 Hct 26.7 % (35.5-45.6) L 05/02/22 04:59 MCV 87 fl (84-94) 05/02/22 04:59 MCH 28 pg (28-32) 05/02/22 04:59 MCHC 32 % (32-34) 05/02/22 04:59 RDW 15.5 % (13.2-15.2) H 05/02/22 04:59 Plt Count 597 K/mm3 (140-440) H 05/02/22 04:59 Lymph % (Auto) 5.7 % (13.4-35.0) L 04/29/22 04:20 [place] % (Auto) 7.8 % (0.0-7.3) H 04/29/22 04:20 Eos % (Auto) 3.9 % (0.0-4.3) 04/29/22 04:20 Baso % (Auto) 0.6 % (0.0-1.8) 04/29/22 04:20 Lymph # (Auto) 1.1 K/mm3 (1.2-5.4) L 04/29/22 04:20 [place] # (Auto) 1.5 K/mm3 (0.0-0.8) H 04/29/22 04:20 Eos # (Auto) 0.8 K/mm3 (0.0-0.4) H 04/29/22 04:20 Baso # (Auto) 0.1 K/mm3 (0.0-0.1) 04/29/22 04:20 Add Manual Diff Complete 04/23/22 04:19 Total Counted 100 04/23/22 04:19 Seg Neutrophils % 82.0 % (40.0-70.0) H 04/29/22 04:20 Seg Neuts % (Manual) 74.0 % (40.0-70.0) H 04/23/22 04:19 Band Neutrophils % 2.0 % 04/23/22 04:19 Lymphocytes % (Manual) 10.0 % (13.4-35.0) L 04/23/22 04:19 Reactive Lymphs % (Man) 0 % 04/23/22 04:19 Monocytes % (Manual) 7.0 % (0.0-7.3) 04/23/22 04:19 Eosinophils % (Manual) 7.0 % (0.0-4.3) H 04/23/22 04:19 Basophils % (Manual) 0 % (0.0-1.8) 04/23/22 04:19 Metamyelocytes % 0 % 04/23/22 04:19 Myelocytes % 0 % 04/23/22 04:19 Promyelocytes % 0 % 04/23/22 04:19 Blast Cells % 0 % 04/23/22 04:19 Nucleated RBC % Not Reportable 04/23/22 04:19 Seg Neutrophils # 16.3 K/mm3 (1.8-7.7) H 04/29/22 04:20 Seg Neutrophils # Man 8.0 K/mm3 (1.8-7.7) H 04/23/22 04:19 Band Neutrophils # 0.2 K/mm3 04/23/22 04:19 Lymphocytes # (Manual) 1.1 K/mm3 (1.2-5.4) L 04/23/22 04:19 Abs React Lymphs (Man) 0.0 K/mm3 04/23/22 04:19 Monocytes # (Manual) 0.8 K/mm3 (0.0-0.8) 04/23/22 04:19 Eosinophils # (Manual) 0.8 K/mm3 (0.0-0.4) H 04/23/22 04:19 Basophils # (Manual) 0.0 K/mm3 (0.0-0.1) 04/23/22 04:19 Metamyelocytes # 0.0 K/mm3 04/23/22 04:19 Myelocytes # 0.0 K/mm3 04/23/22 04:19 Promyelocytes # 0.0 K/mm3 04/23/22 04:19 Blast Cells # 0.0 K/mm3 04/23/22 04:19 WBC Morphology Not Reportable 04/23/22 04:19 Hypersegmented Neuts Not Reportable 04/23/22 04:19 Hyposegmented Neuts Not Reportable 04/23/22 04:19 Hypogranular Neuts Not Reportable 04/23/22 04:19 Smudge Cells Not Reportable 04/23/22 04:19 Toxic Granulation Not Reportable 04/23/22 04:19 Toxic Vacuolation Not Reportable 04/23/22 04:19 Dohle Bodies Not Reportable 04/23/22 04:19 Pelger-Huet Anomaly Not Reportable 04/23/22 04:19 Regla Rods Not Reportable 04/23/22 04:19 Platelet Estimate Consistent w auto 04/23/22 04:19 Clumped Platelets Not Reportable 04/23/22 04:19 Plt Clumps, EDTA Not Reportable 04/23/22 04:19 Large Platelets Not Reportable 04/23/22 04:19 Giant Platelets Not Reportable 04/23/22 04:19 Platelet Satelliting Not Reportable 04/23/22 04:19 Plt Morphology Comment Not Reportable 04/23/22 04:19 RBC Morphology Not Reportable 04/23/22 04:19 Dimorphic RBCs Not Reportable 04/23/22 04:19 Polychromasia Not Reportable 04/23/22 04:19 Hypochromasia Not Reportable 04/23/22 04:19 Poikilocytosis Not Reportable 04/23/22 04:19 Anisocytosis Not Reportable 04/23/22 04:19 Microcytosis Not Reportable 04/23/22 04:19 Macrocytosis Not Reportable 04/23/22 04:19 Spherocytes Not Reportable 04/23/22 04:19 Pappenheimer Bodies Not Reportable 04/23/22 04:19 Sickle Cells Not Reportable 04/23/22 04:19 Target Cells Not Reportable 04/23/22 04:19 Tear Drop Cells Not Reportable 04/23/22 04:19 Ovalocytes Not Reportable 04/23/22 04:19 Helmet Cells Not Reportable 04/23/22 04:19 S[place]-Starbuck Bodies Not Reportable 04/23/22 04:19 [place] Rings Not Reportable 04/23/22 04:19 Meggan Cells Not Reportable 04/23/22 04:19 Bite Cells Not Reportable 04/23/22 04:19 Crenated Cell Not Reportable 04/23/22 04:19 Elliptocytes Not Reportable 04/23/22 04:19 Acanthocytes (Spur) Not Reportable 04/23/22 04:19 Rouleaux Not Reportable 04/23/22 04:19 Hemoglobin C Crystals Not Reportable 04/23/22 04:19 Schistocytes Not Reportable 04/23/22 04:19 Malaria parasites Not Reportable 04/23/22 04:19 [place] Bodies Not Reportable 04/23/22 04:19 Hem Pathologist Commnt No 04/23/22 04:19 PT 15.6 Sec. (12.2-14.9) H 04/18/22 Unknown INR 1.08 (0.87-1.13) 04/18/22 Unknown APTT 28.6 Sec. (24.2-36.6) 04/18/22 Unknown Activated Coag Time 179 (74-137) H 04/21/22 12:14 Heparin Anti-Xa Level 0.16 U.I./ml (0.3-0.7) L 04/21/22 04:00 ABG pH 7.442 pH Units (7.350-7.450) 05/02/22 04:45 ABG pCO2 37.8 mm Hg 05/02/22 04:45 ABG pO2 83.1 mm Hg (80.0-90.0) 05/02/22 04:45 ABG HCO3 25.2 mmol/L (20.0-26.0) 05/02/22 04:45 ABG O2 Saturation 97.0 % (95.0-99.0) 05/02/22 04:45 ABG O2 Content 12.6 (0.0-44) 05/02/22 04:45 ABG Base Excess 1.1 mmol/L (-2.0-3.0) 05/02/22 04:45 ABG Hemoglobin 9.3 gm/dl (14.0-18.0) L 05/02/22 04:45 ABG Carboxyhemoglobin 1.4 % (0.0-5.0) 05/02/22 04:45 ABG Methemoglobin 0.4 % (0.0-1.5) 05/02/22 04:45 Oxyhemoglobin 95.2 % (95.0-99.0) 05/02/22 04:45 FiO2 30 % 05/02/22 04:45 Sodium 147 mmol/L (137-145) H 05/02/22 04:59 Potassium 4.1 mmol/L (3.6-5.0) 05/02/22 04:59 Chloride 111.5 mmol/L (98-107) H 05/02/22 04:59 Carbon Dioxide 26 mmol/L (22-30) 05/02/22 04:59 Anion Gap 14 mmol/L 05/02/22 04:59 BUN 36 mg/dL (9-20) H 05/02/22 04:59 Creatinine 1.2 mg/dL (0.8-1.3) 05/02/22 04:59 Estimated GFR > 60 ml/min 05/02/22 04:59 BUN/Creatinine Ratio 30 % 05/02/22 04:59 Glucose 136 mg/dL (75-100) H 05/02/22 04:59 POC Glucose 120 mg/dL (70-105) H 05/02/22 04:47 Lactic Acid 1.90 mmol/L (0.7-2.0) 04/21/22 04:20 Calcium 8.0 mg/dL (8.4-10.2) L 05/02/22 04:59 Phosphorus 3.20 mg/dL (2.5-4.5) 05/02/22 04:59 Magnesium 2.10 mg/dL (1.7-2.3) 05/02/22 04:59 Total Bilirubin 0.40 mg/dL (0.1-1.2) 05/02/22 04:59 Direct Bilirubin 0.3 mg/dL (0-0.2) H 04/30/22 04:25 Indirect Bilirubin 0.1 mg/dL 04/30/22 04:25 AST 73 units/L (5-40) H 05/02/22 04:59 ALT 90 units/L (7-56) H 05/02/22 04:59 Alkaline Phosphatase 171 units/L (35-129) H 05/02/22 04:59 Total Creatine Kinase 61 units/L (55-170) 04/29/22 04:20 CK-MB (CK-2) 28.5 ng/mL (0.0-4.0) H 04/19/22 07:11 CK-MB (CK-2) Rel Index 0.8 (0-4) 04/19/22 07:11 Troponin T 2.980 ng/mL (0.00-0.029) H* 04/19/22 07:11 C-Reactive Protein 15.30 mg/dL (0.00-1.30) H 04/28/22 08:20 Total Protein 6.8 g/dL (6.3-8.2) 05/02/22 04:59 Albumin 2.3 g/dL (3.9-5) L 05/02/22 04:59 Albumin/Globulin Ratio 0.5 % 05/02/22 04:59 Triglycerides 214 mg/dL (2-149) H 05/01/22 04:00 Cholesterol 106 mg/dL (50-199) 04/17/22 19:56 LDL Cholesterol Direct 57 mg/dL (50-130) 04/17/22 19:56 HDL Cholesterol 40 mg/dL (40-59) 04/17/22 19:56 Cholesterol/HDL Ratio 2.65 % 04/17/22 19:56 Procalcitonin 2.90 ng/mL (<0.15) 04/28/22 Unknown Urine Color Straw (Yellow) 04/28/22 08:35 Urine Turbidity Clear (Clear) 04/28/22 08:35 Urine pH 6.0 (5.0-7.0) 04/28/22 08:35 Ur Specific [place] 1.000 (1.003-1.030) L 04/28/22 08:35 Urine Protein 300 mg/dl mg/dL (Negative) 04/28/22 08:35 Urine Glucose (UA) Negative mg/dL (Negative) 04/28/22 08:35 Urine Ketones Negative mg/dL (Negative) 04/28/22 08:35 Urine Blood 3+ (Negative) 04/28/22 08:35 Urine Nitrite Negative (Negative) 04/28/22 08:35 Ur Reducing Substances Not Reportable 04/28/22 08:35 Urine Bilirubin Negative (Negative) 04/28/22 08:35 Urine Ictotest Not Reportable 04/28/22 08:35 Urine Urobilinogen < 2.0 mg/dL (<2.0) 04/28/22 08:35 Ur Leukocyte Esterase Small (Negative) 04/28/22 08:35 Urine WBC (Auto) 21.0 /HPF (0.0-6.0) H 04/28/22 08:35 Urine RBC (Auto) 9.0 /HPF (0.0-6.0) 04/28/22 08:35 Urine Bacteria (Auto) 2+ /HPF (Negative) 04/19/22 02:08 Urine WBC Clumps 3+ /HPF 04/19/22 02:08 RBC Casts 34 /LPF 04/19/22 02:08 Urine Mucus Few /HPF 04/28/22 08:35 Urine Yeast (Budding) 3+ /HPF 04/19/22 02:08 Urine Eosinophils None seen (None Seen) 04/19/22 02:08 Urine Creatinine 90.9 mg/dL (0.1-20.0) H 04/19/22 02:08 Urine Sodium 54 mmol/L 04/19/22 02:08 Digoxin 0.5 ng/mL (0.9-2.0) L 05/01/22 12:16 Coronavirus (PCR) Positive (Negative) A 04/29/22 09:38 Influenza A (RT-PCR) Negative (Negative) 04/29/22 11:44 Influenza B (RT-PCR) Negative (Negative) 04/29/22 11:44 Blood Type A POSITIVE 04/21/22 04:37 Antibody Screen Negative 04/21/22 04:37 Microbiology: Microbiology 04/26/22 08:57 Peripheral/Venous Blood Culture - Final NO GROWTH AFTER 5 DAYS 04/26/22 05:20 Peripheral/Venous Blood Culture - Final NO GROWTH AFTER 5 DAYS [place]/IV: Voiding Method Indwelling Catheter Active Medications - Current Medications Current Medications: Generic Name Dose Route Start Last Admin Trade Name Freq PRN Reason Stop Dose Admin Acetaminophen 650 mg 04/17/22 19:48 04/28/22 21:38 Acetaminophen 325 Mg Tab PO 650 mg Q6H PRN Administration Pain MILD(1-3)/Fever >100.5/CHE Albuterol 2.5 mg 04/17/22 19:48 Albuterol 2.5 Mg/3 Ml Nebu IH Q3HRT PRN Shortness Of Breath Ascorbic Acid 500 mg 04/30/22 22:00 05/01/22 22:12 Ascorbic Acid 500 Mg Tab PO 500 mg BID FLACO Administration Aspirin 81 mg 04/20/22 12:00 05/01/22 09:03 Aspirin 81 Mg Tab Chew FEEDTUBE 81 mg QDAY FLACO Administration Atorvastatin Calcium 20 mg 04/20/22 22:00 05/01/22 22:13 Atorvastatin 20 Mg Tab FEEDTUBE 20 mg QHS FLACO Administration Dexamethasone 8 mg 04/30/22 10:00 05/01/22 09:03 Dexamethasone 4 Mg/Ml Vial IV 05/09/22 10:01 8 mg DAILY FLACO Administration Dextrose 0 ml 04/17/22 23:46 Dextrose 50% In Water (25gm) 50 Ml Syringe IV Q30MIN PRN Hypoglycemia Protocol Digoxin 0.125 mg 04/30/22 17:00 05/01/22 17:23 Digoxin 0.125 Mg Tab FEEDTUBE 0.125 mg DAILY@1700 FLACO Administration Docusate Sodium 100 mg 04/27/22 11:00 05/01/22 22:14 Docusate Sodium 100 Mg/10 Ml Oral Liqd FEEDTUBE 100 mg BID FLACO Administration Doxazosin Mesylate 1 mg 04/30/22 22:00 05/01/22 22:11 Doxazosin 1 Mg Tab PO 1 mg QHS FLACO Administration Famotidine 20 mg 04/27/22 10:00 05/01/22 22:14 Famotidine 20 Mg Tab FEEDTUBE 20 mg BID FLACO Administration Fentanyl 50 mcg 04/17/22 20:22 04/30/22 22:41 Fentanyl 100 Mcg/2 Ml Inj IV 50 mcg Q10MIN PRN Administration ANALGESIA Heparin Sodium (Porcine) 5,000 unit 04/21/22 22:00 05/01/22 22:11 Heparin 5,000 Unit/1 Ml Vial SUB-Q 5,000 unit Q12HR FLACO Administration Hydrophilic Ointment 1 applic 04/18/22 06:02 04/26/22 20:29 Lip Therapy Vaseline TP 1 applic Q2HR PRN Administration Dry Lips Fentanyl Citrate 2,000 mcg in 100 mls @ 5.443 mls/hr 04/17/22 21:00 05/01/22 17:25 Fentanyl Drip Premix IV 1 mcg/kg/hr TITR FLACO 5.443 mls/hr Administration Protocol 1 MCG/KG/HR Propofol 1,000 mg in 100 mls @ 3.456 mls/hr 04/18/22 07:00 05/01/22 20:30 Diprivan 10 Mg/Ml IV 5 mcg/kg/min TITR FLACO 3.456 mls/hr Titration Protocol 5 MCG/KG/MIN Cefepime HCl 2 gm in 100 mls @ 200 mls/hr 04/28/22 08:00 05/02/22 02:30 Cefepime/Ns 2 Gm/100 Ml IV 200 mls/hr Q8H FLACO Administration Protocol Vancomycin HCl 1,750 mg/ 535 mls @ 333.333 mls/hr 04/28/22 10:00 05/01/22 09:09 Sodium Chloride IV 333.333 mls/hr Q24H FLACO Administration Dexmedetomidine HCl 400 mcg/ 104 mls @ 5.99 mls/hr 04/28/22 11:00 04/28/22 13:52 Sodium Chloride IV 0 mcg/kg/hr TITRATE FLACO 0 mls/hr Titration Protocol 0.2 MCG/KG/HR NORepinephrine/NS 8 MG-250 ML 8 mg in 250 mls @ 3.75 mls/hr 04/28/22 15:00 04/29/22 04:39 Norepinephrine/Ns 8 Mg-250 Ml (Double Conc) IV 4 mcg/min TITRATE FLACO 7.5 mls/hr Titration Protocol 2 MCG/MIN Remdesivir 100 mg/ Sodium 250 mls @ 500 mls/hr 05/01/22 14:00 05/01/22 14:11 Chloride IV 05/04/22 14:29 500 mls/hr Q24HR@1400 FLACO Administration Insulin Glargine 25 units 04/29/22 11:00 05/01/22 22:11 Insulin Glargine 100 Units/Ml SUB-Q 25 units BID FLACO Administration Insulin Human Lispro 0 unit 04/18/22 00:00 05/02/22 05:50 Insulin Lispro 100 Unit/Ml SUB-Q Not Given Q6HR [facility] Protocol Insulin Human Lispro 10 unit 04/29/22 12:00 05/02/22 05:50 Insulin Lispro 100 Unit/Ml SUB-Q Not Given Q6HR [facility] Multi-Ingred Cream/Lotion/Oil/Oint 1 applic 04/18/22 06:02 Mineral Oil/Petrolatum, White Ophth Oint 3.5 Gm OU Q4HR PRN Dry Eye(s) Oxycodone/Acetaminophen 1 tab 04/22/22 11:05 Oxycodone /Acetaminophen 5-325mg Tab FEEDTUBE Q6H PRN Pain, Moderate (4-6) Senna/Docusate Sodium 2 tab 04/28/22 10:00 05/01/22 22:11 Sennosides/Docusate Sodium 8.6/50 Mg Tab FEEDTUBE 2 tab BID FLACO Administration Sodium Chloride 10 ml 04/17/22 22:00 05/01/22 09:03 Sodium Chloride 0.9% 10 Ml Flush Syringe IV 10 ml BID FLACO Administration Sodium Chloride 10 ml 04/17/22 19:48 Sodium Chloride 0.9% 10 Ml Flush Syringe IV PRN PRN LINE FLUSH Sodium Chloride 50 ml 04/30/22 09:00 05/01/22 15:50 Sodium Chloride 0.9% 50 Ml Ivpb IV 05/04/22 14:01 50 ml Q24HR@1400 FLACO Administration Zinc Sulfate 220 mg 04/30/22 22:00 05/01/22 22:15 Zinc Sulfate 220 Mg Cap PO 220 mg BID FLACO Administration Nutrition/Malnutrition Assess - Dietary Evaluation Nutrition/Malnutrition Findings: Nutrition Notes Start: 04/18/22 08:52 Freq: Status: Active Protocol: Document 04/29/22 11:29 ROMELIA (Rec: 04/29/22 11:55 ROMELIA [id number]) Nutrition Notes Initial or Follow up Reassessment Current Diagnosis Acute Kidney Injury,Diabetes, Sepsis,Hypertension, Respiratory Failure Other Pertinent Diagnosis s/p PEA w/ROSC, HFrEF, Pneumonia, Transaminitis, Rabdomyolisis, .. Current Diet TF-Nepro w/CARBSTEADY @ 35 ml/ hr (from D 04/21). Labs/Tests 04/29: BUN 30, Crea 1.6, Glu 236, Ca 8.1. Pertinent Medications 04/29: Humalog 4U, Propofol @ 3.456 ml/hr (91 Kcal), mothers nutritionally unremarkable. Height 5 ft 9 in Weight 115.2 kg [place] Body Weight (kg) 72.72 BMI 37.5 Weight change and time frame No body weight change reported in 11 days. Weight Status Obese Subjective/Other Information RD consult for routine F/U on TF tolerance/continuation assessment. TF continues as prescribed, no further information available at the time. Pt continues on Mechanical Ventilation, O2 saturation @ 100%, according to Physical Assessment History notes. Pt remains incontinent, according to Physical Assessment History notes. Pt presents blisters on the groin and on hand, according to Physical Assessment History notes. Percent of energy/protein needs met: Prescribed TF-Nepro w/ CARBSTEADY @ 35 ml/hr provides for energy/protein needs (1, 500 Kcal/68 g) during LOS, 77% Kcal; 90% AA. Including 91 Kcal from Propofol: 81% Kcal; 90% AA. Burn Absent Trauma Absent GI Symptoms None Food Allergy No Skin Integrity/Comment Blisters on the groin and on hand. Current % PO Other Minimum of two criteria No Fluid Accumulation N/A Reduced [employer] Strength N/A (non-severe) Protein-Calorie Malnutrition N\A #1 Nutrition Diagnosis Inadequate oral intake Diagnosis Progress(for reassessment Continues documentation) Is patient on ventilator? Yes Is Patient Ambulatory and/or Out of Bed No REE-([place]-confined to bed) 2323.608 Kcal/Kg value to use for calculation 17 Approximate Energy Requirements Using 1958 kcal/Kg Calculation Used for Recommendations Kcal/kg Additional Notes Protein: 0.8-1.2 g/Kg AdjBW; 75-113 g/day. Fluids: 1 ml/Kcal, or as per MD. Nutrition Intervention Nutrition Support: Continue TF-Nepro w/CARBSTEADY @ 35 ml/hr. Flush: 220 ml water Q 4 hr, or as per MD. Kcal 1,500 Protein (gm) 68 Carbohydrates (gm) 134 Fat (gm) 80 Fluid (mL) 606 Fiber (gm) 11 % RDI: 77% Kcal; 90% AA. Goal #1 Provide at least 75% of energy /protein needs through Enteral Feeding during LOS. Follow-Up By: 05/06/22 Additional Comments Continue monitoring TF tolerance, ventilation status, vasopressors, and BM.
[2022-05-01] MEDS: REMDESIVIR 100 MG in SODIUM CHLORIDE 0.9% 250ML 250 ML IV SCH (14:11)
[2022-05-01 15:27] LABS: ABG Base Excess 1.7 mmol/L (-2.0-3.0); ABG HCO3 26.2 mmol/L (20.0-26.0); ABG Methemoglobin 0.4 % (0.0-1.5); ABG Oxygen Saturation 97.1 % (95.0-99.0); ABG PCO2 41.1 mm Hg; ABG PH 7.423 pH Units (7.350-7.450); ABG PO2 87.2 mm Hg (80.0-90.0)
[2022-05-01] MEDS: SODIUM CHLORIDE 0.9% 50 ML IVPB IV SCH (15:50)
[2022-05-01] MEDS: DIGOXIN 0.125 MG TAB FEEDTUBE SCH (17:23)
[2022-05-01] MEDS: DOXAZOSIN 1 MG TAB PO SCH (22:11)
[2022-05-02] MEDS: INSULIN LISPRO 100 UNIT/ML SUB-Q SCH ×10 (00:51→17:40)
[2022-05-02] MEDS: CEFEPIME/NS 2 GM/100 ML 2 GM/100 ML BAG IV SCH ×3 (02:30→16:00)
[2022-05-02 05:07] LABS: Hematocrit 26.7 % (35.5-45.6); Hemoglobin 8.6 gm/dl (11.8-15.2); Mean Corpuscular HGB Conc 32 % (32-34); Mean Corpuscular Volume 87 fl (84-94); Platelet Count 597 K/mm3 (140-440); Red Blood Count 3.06 M/mm3 (3.65-5.03); Red Cell Distribution Width 15.5 % (13.2-15.2)
[2022-05-02 05:15] LABS: ABG Base Excess 1.1 mmol/L (-2.0-3.0); ABG HCO3 25.2 mmol/L (20.0-26.0); ABG Methemoglobin 0.4 % (0.0-1.5); ABG PCO2 37.8 mm Hg; ABG PH 7.442 pH Units (7.350-7.450); ABG PO2 83.1 mm Hg (80.0-90.0)
[2022-05-02 05:31] LABS: Alanine Aminotransferase 90 units/L (7-56); Albumin 2.3 g/dL (3.9-5); BUN/Creatinine Ratio 30; Blood Urea Nitrogen 36 mg/dL (9-20); Hemolysis Index 0
--- NOTE | 2022-05-02 09:00 | Progress Note ---
Assessment and Plan COVID-19 infection Acute hypoxic respiratory failure Ventricular fibrillation cardiac arrest Nonischemic cardiomyopathy Cardiac cath this admission revealing normal coronary circulation Type 2 diabetes mellitus Persistent atrial fibrillation Anemia Acute renal failure Transaminitis Recommendations: Continue aspirin, Lipitor Continue digoxin for rate control of atrial fibrillation Initiate low-dose Toprol-XL for underlying cardiomyopathy Arrange for LifeVest or AICD prior to discharge Subjective Date of service: 05/02/22 Principal diagnosis: AHRF; AMS; Pneumonia; Shock; DM II; Severe Metabolic Acidosis Interval history: Patient is awake but continues to be intubated. Director Of [employer] team planning extubation today. Telemetry showing rate controlled atrial fibrillation. Patient is not on any pressor support. Objective Vital Signs Temp Pulse Pulse Resp BP Pulse Ox 05/02/22 08:00 98.9 F 66 112/68 98 05/02/22 06:00 70 17 109/74 100 05/02/22 05:46 63 19 109/74 98 05/02/22 05:30 60 19 141/60 98 05/02/22 05:16 77 22 141/60 98 05/02/22 05:00 66 15 141/60 98 05/02/22 04:46 71 19 141/60 99 05/02/22 04:30 66 15 141/60 100 05/02/22 04:16 57 L 19 131/69 98 05/02/22 04:00 60 64 17 130/69 100 05/02/22 03:46 61 17 130/69 97 05/02/22 03:30 69 17 123/74 99 05/02/22 03:16 63 13 123/74 99 05/02/22 03:06 98.8 F 05/02/22 03:00 69 16 135/73 99 05/02/22 02:46 71 21 135/73 98 05/02/22 02:30 67 18 146/71 99 05/02/22 02:16 69 22 146/71 99 05/02/22 02:00 69 18 118/67 99 05/02/22 01:46 76 15 112/64 100 05/02/22 01:30 106 H 19 134/78 97 05/02/22 01:16 64 18 134/78 97 05/02/22 01:00 62 18 134/84 96 05/02/22 00:46 72 16 126/72 97 05/02/22 00:30 80 16 134/78 98 05/02/22 00:16 63 17 128/77 98 05/02/22 00:08 97.6 F 05/02/22 00:00 75 69 21 128/77 99 05/01/22 23:48 71 116/73 99 05/01/22 23:46 77 17 126/72 99 05/01/22 23:30 58 L 18 130/82 99 05/01/22 23:16 60 14 125/79 99 05/01/22 23:00 61 17 117/71 99 05/01/22 22:46 61 18 117/71 99 05/01/22 22:30 63 18 126/72 99 05/01/22 22:16 68 23 126/72 98 05/01/22 22:11 76 126/72 05/01/22 22:00 65 22 141/77 98 05/01/22 21:46 96 H 16 141/77 99 05/01/22 21:30 64 15 141/77 99 05/01/22 21:16 72 14 141/74 100 05/01/22 21:00 73 22 141/74 99 05/01/22 20:46 76 20 141/74 99 05/01/22 20:33 69 121/56 99 05/01/22 20:30 75 18 141/74 100 05/01/22 20:16 60 14 141/74 99 05/01/22 20:00 68 63 16 140/81 99 05/01/22 19:46 67 21 140/81 98 05/01/22 19:30 74 13 140/81 98 05/01/22 19:20 97.8 F 05/01/22 19:16 77 12 140/81 98 05/01/22 19:00 78 13 143/80 99 05/01/22 18:46 67 17 143/80 95 05/01/22 18:30 70 11 L 143/80 99 05/01/22 18:18 79 17 137/78 97 05/01/22 18:16 69 16 137/78 98 05/01/22 18:00 81 13 129/82 98 05/01/22 17:46 76 17 129/82 96 05/01/22 17:30 75 10 L 129/82 98 05/01/22 17:23 85 136/77 05/01/22 17:16 80 17 136/77 97 05/01/22 17:00 72 21 146/79 99 05/01/22 16:46 83 25 H 146/79 98 05/01/22 16:30 81 18 146/79 99 05/01/22 16:15 81 17 130/74 99 05/01/22 16:00 74 17 130/79 100 05/01/22 15:46 71 24 130/79 98 05/01/22 15:30 67 24 130/79 99 05/01/22 15:16 70 24 123/71 99 05/01/22 15:00 74 24 123/71 99 05/01/22 14:46 72 24 116/65 98 05/01/22 14:30 68 22 123/70 99 05/01/22 14:16 75 26 H 99 05/01/22 14:00 68 24 125/68 98 05/01/22 13:45 72 26 H 125/68 98 05/01/22 13:31 77 29 H 125/68 98 05/01/22 13:15 76 26 H 126/72 98 05/01/22 13:01 73 28 H 126/72 98 05/01/22 12:45 78 30 H 124/73 98 05/01/22 12:31 73 20 124/73 98 05/01/22 12:15 79 25 H 127/63 97 05/01/22 12:01 77 26 H 127/63 98 05/01/22 12:00 77 75 27 H 97 05/01/22 11:45 79 28 H 134/74 97 05/01/22 11:37 77 29 H 119/55 97 05/01/22 11:31 77 26 H 134/74 98 05/01/22 11:15 84 24 127/75 96 05/01/22 11:00 72 22 127/75 98 05/01/22 10:45 83 16 120/72 99 05/01/22 10:31 77 19 120/72 99 05/01/22 10:15 73 20 119/66 97 05/01/22 10:06 99.9 F H 05/01/22 10:01 81 18 119/66 99 05/01/22 09:45 79 16 121/62 99 05/01/22 09:31 78 20 121/62 98 05/01/22 09:15 87 21 114/70 98 08/19/22 09:00 74 18 114/70 100 - Physical Examination General: No Apparent Distress, Other (Patient is intubated, sedated, on the vent) HEENT: Positive: EOMI Neck: Positive: neck supple Cardiac: Positive: irregularly irregular Lungs: Positive: Ventilated Respirations Neuro: Positive: Grossly Intact, Other (Intubated, sedated on the vent, unable to assess) Abdomen: Positive: Soft Skin: Positive: Rash (On the left hand which is dressed), Other (Blisters on the right hand) Extremities: Present: edema (Trace) - Labs and Meds Cardiac Enzymes 05/02/22 Range/Units 04:59 AST 73 H (5-40) units/L CBC 05/02/22 Range/Units 04:59 WBC 17.9 H (4.5-11.0) K/mm3 RBC 3.06 L (3.65-5.03) M/mm3 Hgb 8.6 L (11.8-15.2) gm/dl Hct 26.7 L (35.5-45.6) % Plt Count 597 H (140-440) K/mm3 Comprehensive Metabolic Panel 05/02/22 Range/Units 04:59 Sodium 147 H (137-145) mmol/L Potassium 4.1 (3.6-5.0) mmol/L Chloride 111.5 H (98-107) mmol/L Carbon Dioxide 26 (22-30) mmol/L BUN 36 H (9-20) mg/dL Creatinine 1.2 (0.8-1.3) mg/dL Glucose 136 H (75-100) mg/dL Calcium 8.0 L (8.4-10.2) mg/dL AST 73 H (5-40) units/L ALT 90 H (7-56) units/L Alkaline Phosphatase 171 H (35-129) units/L Total Protein 6.8 (6.3-8.2) g/dL Albumin 2.3 L (3.9-5) g/dL - Allied health notes Allied health notes reviewed: nursing
[2022-05-02] MEDS: DOCUSATE SODIUM 100 MG/10 ML ORAL LIQD FEEDTUBE SCH ×2 (09:01→22:38)
[2022-05-02] MEDS: ASPIRIN 81 MG TAB CHEW FEEDTUBE SCH (09:01)
[2022-05-02] MEDS: FAMOTIDINE 20 MG TAB FEEDTUBE SCH ×2 (09:02→22:40)
[2022-05-02] MEDS: HEPARIN 5,000 UNIT/1 ML VIAL SUB-Q SCH (09:02)
[2022-05-02] MEDS: SENNOSIDES/DOCUSATE SODIUM 8.6/50 MG TAB FEEDTUBE SCH ×2 (09:02→22:39)
[2022-05-02] MEDS: ASCORBIC ACID 500 MG TAB PO SCH ×2 (09:02→22:41)
[2022-05-02] MEDS: dexAMETHasone 4 MG/ML VIAL IV SCH (09:02)
--- NOTE | 2022-05-02 09:26 | XRay Report ---
CHEST 1 VIEW 05/02/2022 8:18 AM INDICATION / CLINICAL INFORMATION: Follow up respiratory failure. COMPARISON: The FINDINGS: SUPPORT DEVICES: Unchanged. HEART / MEDIASTINUM: Stable. LUNGS / PLEURA: Slight improved aeration of the right lower lung. Similar opacities in the left lower lung with small left pleural effusion. No pneumothorax. ADDITIONAL FINDINGS: No significant additional findings. IMPRESSION: 1. Slight improved aeration of the right lower lung. 2. Unchanged opacities and small pleural effusion in the left lung. Signer Name: Andrade Mosher MD Signed: 05/02/2022 9:22 AM Workstation Name: [id number]
--- NOTE | 2022-05-02 09:48 | Progress Note ---
Assessment and Plan This is a 62 year old male with OHS, HTN, DM, metabolic syndrome, s/p vfib cardiac arrest, Septic shock, aspiration pneumonia, transaminitis, VINCENT with acute metabolic encephalopathy Acute hypoxemic respiratory failure on MVS s/p cardiac arrest Altered mental status Aspiration pneumonia Shock (Cardiogenic +/- Septic) Severe Metabolic Acidosis Morbid Obesity BMI 37.5 Diabetes type II Obesity hypoventilation syndrome COVID positive SBT today, place on PSV 8/8 fro 1 hours, get weaning parameters, NIF, RSBI if acceptable, plan to liberate from MVS COVID precautions per facility protocol BIPAP qhs when extubated, he possibly has undiagnosed sleep apnea Stop Fentanyl Give a dose of Furosemide Discontinue radial arterial line Once liberated get PT/OT to evaluate and treat 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 to evaluate swallow function Updated the - improving liver function, resolved renal failure Hypernatremia being treated with free water Antibiotics per ID - continue to titrate supplemental oxygen to keep SpO2 89-92% - VAP bundle addressed, aspiration precautions - continue lung protective strategies - continue bronchodilators with pulmonary hygiene per RT - wean per pulmonary driven protocols otherwise - avoid nephrotoxins, renally dose all medications - continue accuchecks with glycemic control per SSI (While critically ill target blood glucose of 140-180 mg/dL; avoid hypoglycemia) - continue to avoid benzodiazepines, reduce the possibility of delirium - prn analgesia per CPOT score - Maintenance of sleep-wake cycle, avoid delirium - continue enteral nutritional support at goal rate as tolerated - Stress ulcer and VTE prophylaxis - continue mobility per facility protocol, off loading and frequent turning for pressure ulcer prevention - Monitor hemodynamics closely - continue other care per attending / other consultants - discharge planning ongoing concurrently COVID SPECIFIC INTERVENTIONS - COVID-19 test result positive CONDITION: CRITICAL PROGNOSIS: GUARDED CODE STATUS: FULL CODE The high probability of a clinically significant, sudden or life-threatening deterioration of the [respiratory, cardiovascular,] system(s) required my full and direct attention, intervention and personal management. The aggregate critical care time was [35] minutes without overlap. Time includes spent on; [x] Data Review and interpretation [x] Patient assessment and monitoring of vital signs [x] Documentation [x] Medication orders and management Subjective Date of service: 05/02/22 Principal diagnosis: AHRF; AMS; Pneumonia; Shock; DM II; Severe Metabolic Acidosis Interval history: Patient is seen today for: Acute hypoxemic respiratory failure; AMS; Aspiration pneumonia; Shock (Cardiogenic +/- Septic); DM II; Severe Metabolic Acidosis Seen and examined at bedside; 24hour events reviewed; nursing and respiratory care staff consulted; no adverse overnight events reported to me; resting in bed; remains on MVS; PEEP +8/35%, obeying simple commands; no emesis or overt aspiration; no fevers, no vomiting. No acute overnight events reported On Fentanyl at 1 Objective Vital Signs - 12hr 05/01/22 05/01/22 05/01/22 22:00 22:11 22:16 Temperature Pulse Rate 65 76 68 Pulse Rate [ From Monitor] Respiratory 22 23 Rate Blood Pressure 141/77 126/72 126/72 O2 Sat by Pulse 98 98 Oximetry 05/01/22 05/01/22 05/01/22 22:30 22:46 23:00 Temperature Pulse Rate 63 61 61 Pulse Rate [ From Monitor] Respiratory 18 18 17 Rate Blood Pressure 126/72 117/71 117/71 O2 Sat by Pulse 99 99 99 Oximetry 05/01/22 05/01/22 05/01/22 23:16 23:30 23:46 Temperature Pulse Rate 60 58 L 77 Pulse Rate [ From Monitor] Respiratory 14 18 17 Rate Blood Pressure 125/79 130/82 126/72 O2 Sat by Pulse 99 99 99 Oximetry 05/01/22 05/02/22 05/02/22 23:48 00:00 00:08 Temperature 97.6 F Pulse Rate 71 75 Pulse Rate [ 69 From Monitor] Respiratory 21 Rate Blood Pressure 116/73 128/77 O2 Sat by Pulse 99 99 Oximetry 05/02/22 05/02/22 05/02/22 00:16 00:30 00:46 Temperature Pulse Rate 63 80 72 Pulse Rate [ From Monitor] Respiratory 17 16 16 Rate Blood Pressure 128/77 134/78 126/72 O2 Sat by Pulse 98 98 97 Oximetry 05/02/22 05/02/22 05/02/22 01:00 01:16 01:30 Temperature Pulse Rate 62 64 106 H Pulse Rate [ From Monitor] Respiratory 18 18 19 Rate Blood Pressure 134/84 134/78 134/78 O2 Sat by Pulse 96 97 97 Oximetry 05/02/22 05/02/22 05/02/22 01:46 02:00 02:16 Temperature Pulse Rate 76 69 69 Pulse Rate [ From Monitor] Respiratory 15 18 22 Rate Blood Pressure 112/64 118/67 146/71 O2 Sat by Pulse 100 99 99 Oximetry 05/02/22 05/02/22 05/02/22 02:30 02:46 03:00 Temperature Pulse Rate 67 71 69 Pulse Rate [ From Monitor] Respiratory 18 21 16 Rate Blood Pressure 146/71 135/73 135/73 O2 Sat by Pulse 99 98 99 Oximetry 05/02/22 05/02/22 05/02/22 03:06 03:16 03:30 Temperature 98.8 F Pulse Rate 63 69 Pulse Rate [ From Monitor] Respiratory 13 17 Rate Blood Pressure 123/74 123/74 O2 Sat by Pulse 99 99 Oximetry 05/02/22 05/02/22 05/02/22 03:46 04:00 04:16 Temperature Pulse Rate 61 60 57 L Pulse Rate [ 64 From Monitor] Respiratory 17 17 19 Rate Blood Pressure 130/69 130/69 131/69 O2 Sat by Pulse 97 100 98 Oximetry 05/02/22 05/02/22 05/02/22 04:30 04:46 05:00 Temperature Pulse Rate 66 71 66 Pulse Rate [ From Monitor] Respiratory 15 19 15 Rate Blood Pressure 141/60 141/60 141/60 O2 Sat by Pulse 100 99 98 Oximetry 05/02/22 05/02/22 05/02/22 05:16 05:30 05:46 Temperature Pulse Rate 77 60 63 Pulse Rate [ From Monitor] Respiratory 22 19 19 Rate Blood Pressure 141/60 141/60 109/74 O2 Sat by Pulse 98 98 98 Oximetry 05/02/22 05/02/22 05/02/22 06:00 06:16 06:30 Temperature Pulse Rate 70 63 66 Pulse Rate [ From Monitor] Respiratory 17 14 14 Rate Blood Pressure 109/74 127/64 127/64 O2 Sat by Pulse 100 100 100 Oximetry 05/02/22 05/02/22 05/02/22 06:46 07:00 07:16 Temperature Pulse Rate 72 61 60 Pulse Rate [ From Monitor] Respiratory 18 14 19 Rate Blood Pressure 117/67 117/67 106/59 O2 Sat by Pulse 99 99 99 Oximetry 05/02/22 05/02/22 05/02/22 07:30 07:46 08:00 Temperature 98.9 F Pulse Rate 60 71 67 Pulse Rate [ From Monitor] Respiratory 15 17 23 Rate Blood Pressure 112/67 112/67 112/67 O2 Sat by Pulse 100 100 100 Oximetry 05/02/22 05/02/22 05/02/22 08:16 08:30 08:46 Temperature Pulse Rate 66 59 L 78 Pulse Rate [ From Monitor] Respiratory 20 17 13 Rate Blood Pressure 112/68 128/58 128/58 O2 Sat by Pulse 99 99 99 Oximetry Constitutional: no acute distress, alert, other (elderly obese male with mildly increased respiratory effort at rest on MVS) Eyes: non-icteric ENT: oropharynx moist, other (ETT 24 cm DIANNE) Neck: supple, no JVD Effort: normal Ascultation: Bilateral: diminished breath sounds, rales, rhonchi (scant) Percussion: Bilateral: not dull Cardiovascular: irregular rhythm, other (No R/M) Gastrointestinal: normoactive bowel sounds, soft, non-tender, non-distended (protuberant), other (Dunbar catheter) Integumentary: rash (erythematous rash over anterior chest wall and upper extremities) Extremities: no cyanosis, no edema, pulses normal, no ischemia or petechiae, edema (bilateral upper extemities) Neurologic: normal mental status, non-focal exam (grossly), pupils equal and round, CN II-XII normal, motor strength normal and Psychiatric: mood appropriate, affect normal CBC and BMP: 05/02/22 04:59 05/02/22 04:59 ABG, PT/INR, D-dimer: ABG ABG pH 7.442 pH Units (7.350-7.450) 05/02/22 04:45 ABG pCO2 37.8 mm Hg 05/02/22 04:45 ABG pO2 83.1 mm Hg (80.0-90.0) 05/02/22 04:45 ABG O2 Saturation 97.0 % (95.0-99.0) 05/02/22 04:45 PT/INR, D-dimer PT 15.6 Sec. (12.2-14.9) H 04/18/22 Unknown INR 1.08 (0.87-1.13) 04/18/22 Unknown Abnormal lab findings: Abnormal Labs 04/17/22 04/17/22 04/17/22 19:18 19:55 19:56 WBC RBC Hgb Hct RDW Plt Count Lymph % (Auto) [place] % (Auto) Eos % (Auto) Lymph # (Auto) [place] # (Auto) Eos # (Auto) Seg Neutrophils % Seg Neuts % (Manual) Lymphocytes % (Manual) Eosinophils % (Manual) Seg Neutrophils # Seg Neutrophils # Man Lymphocytes # (Manual) Eosinophils # (Manual) PT Activated Coag Time Heparin Anti-Xa Level ABG pH 7.120 L* ABG pO2 45.3 L ABG HCO3 18.5 L ABG O2 Saturation 68.3 L ABG Base Excess -11.5 L ABG Hemoglobin Oxyhemoglobin 66.8 L Sodium Potassium Chloride 94.2 L Carbon Dioxide 17 L BUN Creatinine 1.6 H Glucose 315 H POC Glucose 277 H Lactic Acid Calcium Phosphorus Magnesium Direct Bilirubin AST 529 H ALT 318 H Alkaline Phosphatase 137 H Total Creatine Kinase 398 H CK-MB (CK-2) 17.9 H CK-MB (CK-2) Rel Index 4.4 H Troponin T 0.205 H* C-Reactive Protein Total Protein Albumin Triglycerides Ur Specific [place] Urine Blood Urine WBC (Auto) Urine Creatinine Digoxin Coronavirus (PCR) 04/17/22 04/17/22 04/17/22 19:58 19:58 21:42 WBC 11.9 H RBC 5.17 H Hgb 15.5 H Hct 48.0 H RDW Plt Count Lymph % (Auto) [place] % (Auto) Eos % (Auto) Lymph # (Auto) [place] # (Auto) Eos # (Auto) Seg Neutrophils % 71.7 H Seg Neuts % (Manual) Lymphocytes % (Manual) Eosinophils % (Manual) Seg Neutrophils # 8.5 H Seg Neutrophils # Man Lymphocytes # (Manual) Eosinophils # (Manual) PT Activated Coag Time Heparin Anti-Xa Level ABG pH ABG pO2 ABG HCO3 ABG O2 Saturation ABG Base Excess ABG Hemoglobin Oxyhemoglobin Sodium Potassium Chloride 95.0 L Carbon Dioxide 19 L BUN Creatinine 1.5 H Glucose 306 H POC Glucose Lactic Acid Calcium Phosphorus Magnesium Direct Bilirubin AST ALT Alkaline Phosphatase Total Creatine Kinase 412 H CK-MB (CK-2) 19.2 H CK-MB (CK-2) Rel Index 4.6 H Troponin T 0.285 H* D C-Reactive Protein Total Protein Albumin Triglycerides Ur Specific [place] Urine Blood Urine WBC (Auto) Urine Creatinine Digoxin Coronavirus (PCR) 04/17/22 04/18/22 04/18/22 21:42 00:40 01:07 WBC RBC Hgb Hct RDW Plt Count Lymph % (Auto) [place] % (Auto) Eos % (Auto) Lymph # (Auto) [place] # (Auto) Eos # (Auto) Seg Neutrophils % Seg Neuts % (Manual) Lymphocytes % (Manual) Eosinophils % (Manual) Seg Neutrophils # Seg Neutrophils # Man Lymphocytes # (Manual) Eosinophils # (Manual) PT Activated Coag Time Heparin Anti-Xa Level ABG pH ABG pO2 ABG HCO3 ABG O2 Saturation ABG Base Excess ABG Hemoglobin Oxyhemoglobin Sodium Potassium Chloride Carbon Dioxide BUN Creatinine Glucose POC Glucose 320 H Lactic Acid 7.90 H* 7.90 H* Calcium Phosphorus Magnesium Direct Bilirubin AST ALT Alkaline Phosphatase Total Creatine Kinase CK-MB (CK-2) CK-MB (CK-2) Rel Index Troponin T C-Reactive Protein Total Protein Albumin Triglycerides Ur Specific [place] Urine Blood Urine WBC (Auto) Urine Creatinine Digoxin Coronavirus (PCR) 04/18/22 04/18/22 04/18/22 01:07 04:00 06:04 WBC RBC Hgb Hct RDW Plt Count Lymph % (Auto) [place] % (Auto) Eos % (Auto) Lymph # (Auto) [place] # (Auto) Eos # (Auto) Seg Neutrophils % Seg Neuts % (Manual) Lymphocytes % (Manual) Eosinophils % (Manual) Seg Neutrophils # Seg Neutrophils # Man Lymphocytes # (Manual) Eosinophils # (Manual) PT Activated Coag Time Heparin Anti-Xa Level < 0.10 L ABG pH ABG pO2 ABG HCO3 ABG O2 Saturation ABG Base Excess ABG Hemoglobin Oxyhemoglobin Sodium Potassium Chloride Carbon Dioxide BUN Creatinine Glucose POC Glucose 305 H Lactic Acid Calcium Phosphorus Magnesium Direct Bilirubin AST ALT Alkaline Phosphatase Total Creatine Kinase 488 H CK-MB (CK-2) 25.3 H CK-MB (CK-2) Rel Index 5.1 H Troponin T 0.665 H* D C-Reactive Protein Total Protein Albumin Triglycerides Ur Specific [place] Urine Blood Urine WBC (Auto) Urine Creatinine Digoxin Coronavirus (PCR) 04/18/22 04/18/22 04/18/22 06:20 11:10 12:48 WBC RBC Hgb Hct RDW Plt Count Lymph % (Auto) [place] % (Auto) Eos % (Auto) Lymph # (Auto) [place] # (Auto) Eos # (Auto) Seg Neutrophils % Seg Neuts % (Manual) Lymphocytes % (Manual) Eosinophils % (Manual) Seg Neutrophils # Seg Neutrophils # Man Lymphocytes # (Manual) Eosinophils # (Manual) PT Activated Coag Time Heparin Anti-Xa Level < 0.10 L ABG pH 7.119 L* 7.304 L ABG pO2 56.1 L 103.5 H ABG HCO3 18.4 L 14.4 L ABG O2 Saturation 80.7 L ABG Base Excess -11.4 L -10.6 L ABG Hemoglobin 13.5 L Oxyhemoglobin 79.2 L Sodium Potassium Chloride Carbon Dioxide BUN Creatinine Glucose POC Glucose Lactic Acid Calcium Phosphorus Magnesium Direct Bilirubin AST ALT Alkaline Phosphatase Total Creatine Kinase CK-MB (CK-2) CK-MB (CK-2) Rel Index Troponin T C-Reactive Protein Total Protein Albumin Triglycerides Ur Specific [place] Urine Blood Urine WBC (Auto) Urine Creatinine Digoxin Coronavirus (PCR) 04/18/22 04/18/22 04/18/22 13:13 16:00 16:00 WBC RBC Hgb Hct RDW Plt Count Lymph % (Auto) [place] % (Auto) Eos % (Auto) Lymph # (Auto) [place] # (Auto) Eos # (Auto) Seg Neutrophils % Seg Neuts % (Manual) Lymphocytes % (Manual) Eosinophils % (Manual) Seg Neutrophils # Seg Neutrophils # Man Lymphocytes # (Manual) Eosinophils # (Manual) PT Activated Coag Time Heparin Anti-Xa Level ABG pH ABG pO2 ABG HCO3 ABG O2 Saturation ABG Base Excess ABG Hemoglobin Oxyhemoglobin Sodium Potassium Chloride Carbon Dioxide BUN Creatinine Glucose POC Glucose 334 H Lactic Acid 7.00 H* Calcium Phosphorus 5.70 H Magnesium 1.30 L Direct Bilirubin AST ALT Alkaline Phosphatase Total Creatine Kinase 969 H CK-MB (CK-2) 55.9 H CK-MB (CK-2) Rel Index 5.7 H Troponin T 1.580 H* D C-Reactive Protein Total Protein Albumin Triglycerides Ur Specific [place] Urine Blood Urine WBC (Auto) Urine Creatinine Digoxin Coronavirus (PCR) 04/18/22 04/18/22 04/18/22 16:00 18:00 18:01 WBC RBC Hgb Hct RDW Plt Count Lymph % (Auto) [place] % (Auto) Eos % (Auto) Lymph # (Auto) [place] # (Auto) Eos # (Auto) Seg Neutrophils % Seg Neuts % (Manual) Lymphocytes % (Manual) Eosinophils % (Manual) Seg Neutrophils # Seg Neutrophils # Man Lymphocytes # (Manual) Eosinophils # (Manual) PT Activated Coag Time Heparin Anti-Xa Level < 0.10 L ABG pH ABG pO2 ABG HCO3 ABG O2 Saturation ABG Base Excess ABG Hemoglobin Oxyhemoglobin Sodium 136 L Potassium 6.3 H* D Chloride 97.6 L Carbon Dioxide 18 L BUN 34 H Creatinine 3.5 H Glucose 409 H POC Glucose 397 H Lactic Acid Calcium 6.8 L Phosphorus Magnesium Direct Bilirubin AST ALT Alkaline Phosphatase Total Creatine Kinase CK-MB (CK-2) CK-MB (CK-2) Rel Index Troponin T C-Reactive Protein Total Protein Albumin Triglycerides Ur Specific [place] Urine Blood Urine WBC (Auto) Urine Creatinine Digoxin Coronavirus (PCR) 04/18/22 04/18/22 04/18/22 19:13 20:58 21:22 WBC RBC Hgb Hct RDW Plt Count Lymph % (Auto) [place] % (Auto) Eos % (Auto) Lymph # (Auto) [place] # (Auto) Eos # (Auto) Seg Neutrophils % Seg Neuts % (Manual) Lymphocytes % (Manual) Eosinophils % (Manual) Seg Neutrophils # Seg Neutrophils # Man Lymphocytes # (Manual) Eosinophils # (Manual) PT Activated Coag Time Heparin Anti-Xa Level ABG pH 7.502 H ABG pO2 144.5 H ABG HCO3 ABG O2 Saturation ABG Base Excess ABG Hemoglobin 12.5 L Oxyhemoglobin Sodium Potassium Chloride Carbon Dioxide BUN Creatinine Glucose POC Glucose 321 H 307 H Lactic Acid Calcium Phosphorus Magnesium Direct Bilirubin AST ALT Alkaline Phosphatase Total Creatine Kinase CK-MB (CK-2) CK-MB (CK-2) Rel Index Troponin T C-Reactive Protein Total Protein Albumin Triglycerides Ur Specific [place] Urine Blood Urine WBC (Auto) Urine Creatinine Digoxin Coronavirus (PCR) 04/18/22 04/18/22 04/18/22 21:30 21:30 Unknown WBC RBC Hgb Hct RDW Plt Count Lymph % (Auto) [place] % (Auto) Eos % (Auto) Lymph # (Auto) [place] # (Auto) Eos # (Auto) Seg Neutrophils % Seg Neuts % (Manual) 81.0 H Lymphocytes % (Manual) 12.0 L Eosinophils % (Manual) Seg Neutrophils # 9.8 H Seg Neutrophils # Man 8.7 H Lymphocytes # (Manual) Eosinophils # (Manual) PT Activated Coag Time Heparin Anti-Xa Level ABG pH ABG pO2 ABG HCO3 ABG O2 Saturation ABG Base Excess ABG Hemoglobin Oxyhemoglobin Sodium Potassium Chloride 96.6 L Carbon Dioxide BUN 37 H Creatinine 3.6 H Glucose 312 H POC Glucose Lactic Acid 5.50 H* Calcium 7.3 L Phosphorus Magnesium Direct Bilirubin AST ALT Alkaline Phosphatase Total Creatine Kinase CK-MB (CK-2) CK-MB (CK-2) Rel Index Troponin T C-Reactive Protein Total Protein Albumin Triglycerides Ur Specific [place] Urine Blood Urine WBC (Auto) Urine Creatinine Digoxin Coronavirus (PCR) 04/18/22 04/18/22 04/19/22 Unknown Unknown 00:35 WBC RBC Hgb Hct RDW Plt Count Lymph % (Auto) [place] % (Auto) Eos % (Auto) Lymph # (Auto) [place] # (Auto) Eos # (Auto) Seg Neutrophils % Seg Neuts % (Manual) Lymphocytes % (Manual) Eosinophils % (Manual) Seg Neutrophils # Seg Neutrophils # Man Lymphocytes # (Manual) Eosinophils # (Manual) PT 15.6 H Activated Coag Time Heparin Anti-Xa Level ABG pH ABG pO2 ABG HCO3 ABG O2 Saturation ABG Base Excess ABG Hemoglobin Oxyhemoglobin Sodium Potassium Chloride Carbon Dioxide 18 L BUN 26 H Creatinine 2.5 H D Glucose 330 H POC Glucose Lactic Acid Calcium 7.9 L Phosphorus Magnesium Direct Bilirubin AST 463 H ALT 249 H Alkaline Phosphatase Total Creatine Kinase CK-MB (CK-2) CK-MB (CK-2) Rel Index Troponin T 2.670 H* D C-Reactive Protein Total Protein Albumin 3.3 L Triglycerides Ur Specific [place] Urine Blood Urine WBC (Auto) Urine Creatinine Digoxin Coronavirus (PCR) 04/19/22 04/19/22 04/19/22 00:39 02:08 02:08 WBC RBC Hgb Hct RDW Plt Count Lymph % (Auto) [place] % (Auto) Eos % (Auto) Lymph # (Auto) [place] # (Auto) Eos # (Auto) Seg Neutrophils % Seg Neuts % (Manual) Lymphocytes % (Manual) Eosinophils % (Manual) Seg Neutrophils # Seg Neutrophils # Man Lymphocytes # (Manual) Eosinophils # (Manual) PT Activated Coag Time Heparin Anti-Xa Level ABG pH ABG pO2 ABG HCO3 ABG O2 Saturation ABG Base Excess ABG Hemoglobin Oxyhemoglobin Sodium Potassium Chloride Carbon Dioxide BUN Creatinine Glucose POC Glucose 263 H Lactic Acid Calcium Phosphorus Magnesium Direct Bilirubin AST ALT Alkaline Phosphatase Total Creatine Kinase CK-MB (CK-2) CK-MB (CK-2) Rel Index Troponin T C-Reactive Protein Total Protein Albumin Triglycerides Ur Specific [place] Urine Blood Large A Urine WBC (Auto) 88.0 H Urine Creatinine 90.9 H Digoxin Coronavirus (PCR) 04/19/22 04/19/22 04/19/22 02:08 03:45 03:45 WBC 14.2 H RBC Hgb Hct RDW Plt Count Lymph % (Auto) [place] % (Auto) Eos % (Auto) Lymph # (Auto) [place] # (Auto) Eos # (Auto) Seg Neutrophils % Seg Neuts % (Manual) Lymphocytes % (Manual) Eosinophils % (Manual) Seg Neutrophils # Seg Neutrophils # Man Lymphocytes # (Manual) Eosinophils # (Manual) PT Activated Coag Time Heparin Anti-Xa Level 0.18 L ABG pH ABG pO2 ABG HCO3 ABG O2 Saturation ABG Base Excess ABG Hemoglobin Oxyhemoglobin Sodium Potassium Chloride 94.2 L Carbon Dioxide BUN 39 H Creatinine 3.8 H Glucose 243 H POC Glucose Lactic Acid Calcium 7.1 L Phosphorus Magnesium 1.50 L Direct Bilirubin AST 380 H ALT 289 H Alkaline Phosphatase Total Creatine Kinase CK-MB (CK-2) CK-MB (CK-2) Rel Index Troponin T C-Reactive Protein Total Protein 5.4 L Albumin 2.5 L Triglycerides Ur Specific [place] Urine Blood Urine WBC (Auto) Urine Creatinine Digoxin Coronavirus (PCR) 04/19/22 04/19/22 04/19/22 03:45 06:01 07:11 WBC RBC Hgb Hct RDW Plt Count Lymph % (Auto) [place] % (Auto) Eos % (Auto) Lymph # (Auto) [place] # (Auto) Eos # (Auto) Seg Neutrophils % Seg Neuts % (Manual) Lymphocytes % (Manual) Eosinophils % (Manual) Seg Neutrophils # Seg Neutrophils # Man Lymphocytes # (Manual) Eosinophils # (Manual) PT Activated Coag Time Heparin Anti-Xa Level ABG pH ABG pO2 ABG HCO3 ABG O2 Saturation ABG Base Excess ABG Hemoglobin Oxyhemoglobin Sodium Potassium Chloride Carbon Dioxide BUN Creatinine Glucose POC Glucose 165 H Lactic Acid 4.00 H* Calcium Phosphorus Magnesium Direct Bilirubin AST ALT Alkaline Phosphatase Total Creatine Kinase 3270 H CK-MB (CK-2) 28.5 H CK-MB (CK-2) Rel Index Troponin T 2.980 H* C-Reactive Protein Total Protein Albumin Triglycerides Ur Specific [place] Urine Blood Urine WBC (Auto) Urine Creatinine Digoxin Coronavirus (PCR) 04/19/22 04/19/22 04/19/22 07:50 08:50 12:49 WBC RBC Hgb Hct RDW Plt Count Lymph % (Auto) [place] % (Auto) Eos % (Auto) Lymph # (Auto) [place] # (Auto) Eos # (Auto) Seg Neutrophils % Seg Neuts % (Manual) Lymphocytes % (Manual) Eosinophils % (Manual) Seg Neutrophils # Seg Neutrophils # Man Lymphocytes # (Manual) Eosinophils # (Manual) PT Activated Coag Time Heparin Anti-Xa Level ABG pH 7.471 H ABG pO2 58.9 L ABG HCO3 27.1 H ABG O2 Saturation 91.7 L ABG Base Excess 3.4 H ABG Hemoglobin 12.2 L Oxyhemoglobin 90.0 L Sodium Potassium Chloride Carbon Dioxide BUN Creatinine Glucose POC Glucose 331 H Lactic Acid 3.40 H* Calcium Phosphorus Magnesium Direct Bilirubin AST ALT Alkaline Phosphatase Total Creatine Kinase CK-MB (CK-2) CK-MB (CK-2) Rel Index Troponin T C-Reactive Protein Total Protein Albumin Triglycerides Ur Specific [place] Urine Blood Urine WBC (Auto) Urine Creatinine Digoxin Coronavirus (PCR) 04/19/22 04/19/22 04/19/22 16:15 19:25 21:17 WBC RBC Hgb Hct RDW Plt Count Lymph % (Auto) [place] % (Auto) Eos % (Auto) Lymph # (Auto) [place] # (Auto) Eos # (Auto) Seg Neutrophils % Seg Neuts % (Manual) Lymphocytes % (Manual) Eosinophils % (Manual) Seg Neutrophils # Seg Neutrophils # Man Lymphocytes # (Manual) Eosinophils # (Manual) PT Activated Coag Time Heparin Anti-Xa Level ABG pH ABG pO2 ABG HCO3 ABG O2 Saturation ABG Base Excess ABG Hemoglobin Oxyhemoglobin Sodium Potassium Chloride Carbon Dioxide BUN Creatinine Glucose POC Glucose 304 H 251 H Lactic Acid 4.00 H* Calcium Phosphorus Magnesium Direct Bilirubin AST ALT Alkaline Phosphatase Total Creatine Kinase CK-MB (CK-2) CK-MB (CK-2) Rel Index Troponin T C-Reactive Protein Total Protein Albumin Triglycerides Ur Specific [place] Urine Blood Urine WBC (Auto) Urine Creatinine Digoxin Coronavirus (PCR) 04/19/22 04/20/22 04/20/22 23:00 04:12 04:12 WBC 12.2 H RBC Hgb 11.6 L Hct 35.3 L RDW Plt Count Lymph % (Auto) [place] % (Auto) Eos % (Auto) Lymph # (Auto) [place] # (Auto) Eos # (Auto) Seg Neutrophils % Seg Neuts % (Manual) Lymphocytes % (Manual) Eosinophils % (Manual) Seg Neutrophils # Seg Neutrophils # Man Lymphocytes # (Manual) Eosinophils # (Manual) PT Activated Coag Time Heparin Anti-Xa Level 0.15 L ABG pH ABG pO2 ABG HCO3 ABG O2 Saturation ABG Base Excess ABG Hemoglobin Oxyhemoglobin Sodium Potassium Chloride Carbon Dioxide BUN Creatinine Glucose POC Glucose 236 H Lactic Acid Calcium Phosphorus Magnesium Direct Bilirubin AST ALT Alkaline Phosphatase Total Creatine Kinase CK-MB (CK-2) CK-MB (CK-2) Rel Index Troponin T C-Reactive Protein Total Protein Albumin Triglycerides Ur Specific [place] Urine Blood Urine WBC (Auto) Urine Creatinine Digoxin Coronavirus (PCR) 04/20/22 04/20/22 04/20/22 04:12 04:12 09:10 WBC RBC Hgb Hct RDW Plt Count Lymph % (Auto) [place] % (Auto) Eos % (Auto) Lymph # (Auto) [place] # (Auto) Eos # (Auto) Seg Neutrophils % Seg Neuts % (Manual) Lymphocytes % (Manual) Eosinophils % (Manual) Seg Neutrophils # Seg Neutrophils # Man Lymphocytes # (Manual) Eosinophils # (Manual) PT Activated Coag Time Heparin Anti-Xa Level ABG pH ABG pO2 ABG HCO3 ABG O2 Saturation ABG Base Excess ABG Hemoglobin Oxyhemoglobin Sodium 133 L Potassium 3.5 L Chloride 91.9 L Carbon Dioxide BUN 44 H Creatinine 4.6 H Glucose 263 H POC Glucose Lactic Acid 2.80 H* Calcium 7.2 L Phosphorus Magnesium Direct Bilirubin AST 553 H ALT 471 H Alkaline Phosphatase Total Creatine Kinase 3019 H CK-MB (CK-2) CK-MB (CK-2) Rel Index Troponin T C-Reactive Protein Total Protein 5.7 L Albumin 2.4 L Triglycerides 254 H Ur Specific [place] Urine Blood Urine WBC (Auto) Urine Creatinine Digoxin Coronavirus (PCR) 04/20/22 04/20/22 04/20/22 09:31 11:18 18:08 WBC RBC Hgb Hct RDW Plt Count Lymph % (Auto) [place] % (Auto) Eos % (Auto) Lymph # (Auto) [place] # (Auto) Eos # (Auto) Seg Neutrophils % Seg Neuts % (Manual) Lymphocytes % (Manual) Eosinophils % (Manual) Seg Neutrophils # Seg Neutrophils # Man Lymphocytes # (Manual) Eosinophils # (Manual) PT Activated Coag Time Heparin Anti-Xa Level ABG pH 7.512 H ABG pO2 ABG HCO3 26.2 H ABG O2 Saturation ABG Base Excess 3.2 H ABG Hemoglobin 9.0 L Oxyhemoglobin Sodium Potassium Chloride Carbon Dioxide BUN Creatinine Glucose POC Glucose 285 H 293 H Lactic Acid Calcium Phosphorus Magnesium Direct Bilirubin AST ALT Alkaline Phosphatase Total Creatine Kinase CK-MB (CK-2) CK-MB (CK-2) Rel Index Troponin T C-Reactive Protein Total Protein Albumin Triglycerides Ur Specific [place] Urine Blood Urine WBC (Auto) Urine Creatinine Digoxin Coronavirus (PCR) 04/20/22 04/21/22 04/21/22 21:40 00:10 04:00 WBC RBC Hgb Hct RDW Plt Count Lymph % (Auto) [place] % (Auto) Eos % (Auto) Lymph # (Auto) [place] # (Auto) Eos # (Auto) Seg Neutrophils % Seg Neuts % (Manual) Lymphocytes % (Manual) Eosinophils % (Manual) Seg Neutrophils # Seg Neutrophils # Man Lymphocytes # (Manual) Eosinophils # (Manual) PT Activated Coag Time Heparin Anti-Xa Level 0.16 L ABG pH ABG pO2 59.4 L ABG HCO3 29.7 H ABG O2 Saturation 90.1 L ABG Base Excess 3.1 H ABG Hemoglobin 11.6 L Oxyhemoglobin 88.2 L Sodium Potassium Chloride Carbon Dioxide BUN Creatinine Glucose POC Glucose 290 H Lactic Acid Calcium Phosphorus Magnesium Direct Bilirubin AST ALT Alkaline Phosphatase Total Creatine Kinase CK-MB (CK-2) CK-MB (CK-2) Rel Index Troponin T C-Reactive Protein Total Protein Albumin Triglycerides Ur Specific [place] Urine Blood Urine WBC (Auto) Urine Creatinine Digoxin Coronavirus (PCR) 04/21/22 04/21/22 04/21/22 04:30 04:30 05:57 WBC 17.9 H RBC Hgb 11.7 L Hct 35.1 L RDW Plt Count Lymph % (Auto) [place] % (Auto) Eos % (Auto) Lymph # (Auto) [place] # (Auto) Eos # (Auto) Seg Neutrophils % Seg Neuts % (Manual) Lymphocytes % (Manual) Eosinophils % (Manual) Seg Neutrophils # Seg Neutrophils # Man Lymphocytes # (Manual) Eosinophils # (Manual) PT Activated Coag Time Heparin Anti-Xa Level ABG pH ABG pO2 ABG HCO3 ABG O2 Saturation ABG Base Excess ABG Hemoglobin Oxyhemoglobin Sodium Potassium Chloride 95.7 L Carbon Dioxide BUN 45 H Creatinine 4.2 H Glucose 309 H POC Glucose 265 H Lactic Acid Calcium 7.4 L Phosphorus 5.60 H D Magnesium 2.50 H Direct Bilirubin AST 217 H ALT 376 H Alkaline Phosphatase Total Creatine Kinase CK-MB (CK-2) CK-MB (CK-2) Rel Index Troponin T C-Reactive Protein Total Protein Albumin 2.8 L Triglycerides Ur Specific [place] Urine Blood Urine WBC (Auto) Urine Creatinine Digoxin Coronavirus (PCR) 04/21/22 04/21/22 04/21/22 12:14 13:45 18:10 WBC RBC Hgb Hct RDW Plt Count Lymph % (Auto) [place] % (Auto) Eos % (Auto) Lymph # (Auto) [place] # (Auto) Eos # (Auto) Seg Neutrophils % Seg Neuts % (Manual) Lymphocytes % (Manual) Eosinophils % (Manual) Seg Neutrophils # Seg Neutrophils # Man Lymphocytes # (Manual) Eosinophils # (Manual) PT Activated Coag Time 179 H Heparin Anti-Xa Level ABG pH ABG pO2 ABG HCO3 ABG O2 Saturation ABG Base Excess ABG Hemoglobin Oxyhemoglobin Sodium Potassium Chloride Carbon Dioxide BUN Creatinine Glucose POC Glucose 248 H 240 H Lactic Acid Calcium Phosphorus Magnesium Direct Bilirubin AST ALT Alkaline Phosphatase Total Creatine Kinase CK-MB (CK-2) CK-MB (CK-2) Rel Index Troponin T C-Reactive Protein Total Protein Albumin Triglycerides Ur Specific [place] Urine Blood Urine WBC (Auto) Urine Creatinine Digoxin Coronavirus (PCR) 04/22/22 04/22/22 04/22/22 00:09 04:00 04:33 WBC 12.4 H RBC 3.34 L Hgb 9.8 L Hct 29.7 L RDW Plt Count 138 L Lymph % (Auto) [place] % (Auto) Eos % (Auto) Lymph # (Auto) [place] # (Auto) Eos # (Auto) Seg Neutrophils % Seg Neuts % (Manual) Lymphocytes % (Manual) Eosinophils % (Manual) Seg Neutrophils # Seg Neutrophils # Man Lymphocytes # (Manual) Eosinophils # (Manual) PT Activated Coag Time Heparin Anti-Xa Level ABG pH ABG pO2 ABG HCO3 ABG O2 Saturation ABG Base Excess ABG Hemoglobin Oxyhemoglobin Sodium Potassium Chloride Carbon Dioxide BUN 40 H Creatinine 2.9 H Glucose 269 H POC Glucose 248 H Lactic Acid Calcium 7.3 L Phosphorus Magnesium Direct Bilirubin AST ALT Alkaline Phosphatase Total Creatine Kinase 973 H CK-MB (CK-2) CK-MB (CK-2) Rel Index Troponin T C-Reactive Protein Total Protein Albumin Triglycerides Ur Specific [place] Urine Blood Urine WBC (Auto) Urine Creatinine Digoxin Coronavirus (PCR) 04/22/22 04/22/22 04/22/22 10:13 11:51 18:02 WBC RBC Hgb Hct RDW Plt Count Lymph % (Auto) [place] % (Auto) Eos % (Auto) Lymph # (Auto) [place] # (Auto) Eos # (Auto) Seg Neutrophils % Seg Neuts % (Manual) Lymphocytes % (Manual) Eosinophils % (Manual) Seg Neutrophils # Seg Neutrophils # Man Lymphocytes # (Manual) Eosinophils # (Manual) PT Activated Coag Time Heparin Anti-Xa Level ABG pH ABG pO2 56.1 L ABG HCO3 28.4 H ABG O2 Saturation 89.3 L ABG Base Excess ABG Hemoglobin 9.8 L Oxyhemoglobin 87.7 L Sodium Potassium Chloride Carbon Dioxide BUN Creatinine Glucose POC Glucose 302 H 266 H Lactic Acid Calcium Phosphorus Magnesium Direct Bilirubin AST ALT Alkaline Phosphatase Total Creatine Kinase CK-MB (CK-2) CK-MB (CK-2) Rel Index Troponin T C-Reactive Protein Total Protein Albumin Triglycerides Ur Specific [place] Urine Blood Urine WBC (Auto) Urine Creatinine Digoxin Coronavirus (PCR) 04/22/22 04/22/22 04/23/22 21:18 23:30 04:19 WBC RBC 3.34 L Hgb 9.9 L Hct 29.9 L RDW Plt Count Lymph % (Auto) [place] % (Auto) Eos % (Auto) Lymph # (Auto) [place] # (Auto) Eos # (Auto) Seg Neutrophils % Seg Neuts % (Manual) 74.0 H Lymphocytes % (Manual) 10.0 L Eosinophils % (Manual) 7.0 H Seg Neutrophils # Seg Neutrophils # Man 8.0 H Lymphocytes # (Manual) 1.1 L Eosinophils # (Manual) 0.8 H PT Activated Coag Time Heparin Anti-Xa Level ABG pH ABG pO2 ABG HCO3 ABG O2 Saturation ABG Base Excess ABG Hemoglobin Oxyhemoglobin Sodium Potassium Chloride Carbon Dioxide BUN Creatinine Glucose POC Glucose 299 H 299 H Lactic Acid Calcium Phosphorus Magnesium Direct Bilirubin AST ALT Alkaline Phosphatase Total Creatine Kinase CK-MB (CK-2) CK-MB (CK-2) Rel Index Troponin T C-Reactive Protein Total Protein Albumin Triglycerides Ur Specific [place] Urine Blood Urine WBC (Auto) Urine Creatinine Digoxin Coronavirus (PCR) 04/23/22 04/23/22 04/23/22 04:19 05:24 11:20 WBC RBC Hgb Hct RDW Plt Count Lymph % (Auto) [place] % (Auto) Eos % (Auto) Lymph # (Auto) [place] # (Auto) Eos # (Auto) Seg Neutrophils % Seg Neuts % (Manual) Lymphocytes % (Manual) Eosinophils % (Manual) Seg Neutrophils # Seg Neutrophils # Man Lymphocytes # (Manual) Eosinophils # (Manual) PT Activated Coag Time Heparin Anti-Xa Level ABG pH ABG pO2 ABG HCO3 ABG O2 Saturation ABG Base Excess ABG Hemoglobin Oxyhemoglobin Sodium Potassium 3.5 L Chloride Carbon Dioxide BUN 30 H Creatinine 2.3 H Glucose 289 H POC Glucose 271 H 302 H Lactic Acid Calcium 7.8 L Phosphorus Magnesium Direct Bilirubin AST 46 H ALT 158 H Alkaline Phosphatase 138 H Total Creatine Kinase CK-MB (CK-2) CK-MB (CK-2) Rel Index Troponin T C-Reactive Protein Total Protein 6.2 L Albumin 2.6 L Triglycerides 230 H Ur Specific [place] Urine Blood Urine WBC (Auto) Urine Creatinine Digoxin Coronavirus (PCR) 04/23/22 04/23/22 04/23/22 18:07 18:20 21:14 WBC RBC Hgb Hct RDW Plt Count Lymph % (Auto) [place] % (Auto) Eos % (Auto) Lymph # (Auto) [place] # (Auto) Eos # (Auto) Seg Neutrophils % Seg Neuts % (Manual) Lymphocytes % (Manual) Eosinophils % (Manual) Seg Neutrophils # Seg Neutrophils # Man Lymphocytes # (Manual) Eosinophils # (Manual) PT Activated Coag Time Heparin Anti-Xa Level ABG pH ABG pO2 ABG HCO3 31.6 H ABG O2 Saturation ABG Base Excess 4.8 H ABG Hemoglobin 18.3 H Oxyhemoglobin 94.8 L Sodium Potassium Chloride Carbon Dioxide BUN Creatinine Glucose POC Glucose 228 H 175 H Lactic Acid Calcium Phosphorus Magnesium Direct Bilirubin AST ALT Alkaline Phosphatase Total Creatine Kinase CK-MB (CK-2) CK-MB (CK-2) Rel Index Troponin T C-Reactive Protein Total Protein Albumin Triglycerides Ur Specific [place] Urine Blood Urine WBC (Auto) Urine Creatinine Digoxin Coronavirus (PCR) 04/23/22 04/24/22 04/24/22 23:24 04:35 04:47 WBC RBC Hgb Hct RDW Plt Count Lymph % (Auto) [place] % (Auto) Eos % (Auto) Lymph # (Auto) [place] # (Auto) Eos # (Auto) Seg Neutrophils % Seg Neuts % (Manual) Lymphocytes % (Manual) Eosinophils % (Manual) Seg Neutrophils # Seg Neutrophils # Man Lymphocytes # (Manual) Eosinophils # (Manual) PT Activated Coag Time Heparin Anti-Xa Level ABG pH ABG pO2 ABG HCO3 31.5 H ABG O2 Saturation ABG Base Excess 6.1 H ABG Hemoglobin 10.3 L Oxyhemoglobin Sodium Potassium Chloride Carbon Dioxide BUN Creatinine Glucose POC Glucose 168 H 177 H Lactic Acid Calcium Phosphorus Magnesium Direct Bilirubin AST ALT Alkaline Phosphatase Total Creatine Kinase CK-MB (CK-2) CK-MB (CK-2) Rel Index Troponin T C-Reactive Protein Total Protein Albumin Triglycerides Ur Specific [place] Urine Blood Urine WBC (Auto) Urine Creatinine Digoxin Coronavirus (PCR) 04/24/22 04/24/22 04/24/22 06:00 06:00 12:45 WBC 14.0 H RBC 3.57 L Hgb 10.1 L Hct 31.9 L RDW Plt Count Lymph % (Auto) 4.7 L [place] % (Auto) 8.8 H Eos % (Auto) 6.0 H Lymph # (Auto) 0.7 L [place] # (Auto) 1.2 H Eos # (Auto) 0.8 H Seg Neutrophils % 80.5 H Seg Neuts % (Manual) Lymphocytes % (Manual) Eosinophils % (Manual) Seg Neutrophils # 11.3 H Seg Neutrophils # Man Lymphocytes # (Manual) Eosinophils # (Manual) PT Activated Coag Time Heparin Anti-Xa Level ABG pH ABG pO2 ABG HCO3 ABG O2 Saturation ABG Base Excess ABG Hemoglobin Oxyhemoglobin Sodium Potassium 3.4 L Chloride Carbon Dioxide BUN 25 H Creatinine 1.8 H Glucose 218 H POC Glucose 227 H Lactic Acid Calcium 8.2 L Phosphorus Magnesium Direct Bilirubin AST ALT 99 H Alkaline Phosphatase 141 H Total Creatine Kinase CK-MB (CK-2) CK-MB (CK-2) Rel Index Troponin T C-Reactive Protein Total Protein 6.2 L Albumin 2.2 L Triglycerides Ur Specific [place] Urine Blood Urine WBC (Auto) Urine Creatinine Digoxin Coronavirus (PCR) 04/24/22 04/24/22 04/24/22 17:57 21:19 23:24 WBC RBC Hgb Hct RDW Plt Count Lymph % (Auto) [place] % (Auto) Eos % (Auto) Lymph # (Auto) [place] # (Auto) Eos # (Auto) Seg Neutrophils % Seg Neuts % (Manual) Lymphocytes % (Manual) Eosinophils % (Manual) Seg Neutrophils # Seg Neutrophils # Man Lymphocytes # (Manual) Eosinophils # (Manual) PT Activated Coag Time Heparin Anti-Xa Level ABG pH ABG pO2 ABG HCO3 ABG O2 Saturation ABG Base Excess ABG Hemoglobin Oxyhemoglobin Sodium Potassium Chloride Carbon Dioxide BUN Creatinine Glucose POC Glucose 207 H 186 H 203 H Lactic Acid Calcium Phosphorus Magnesium Direct Bilirubin AST ALT Alkaline Phosphatase Total Creatine Kinase CK-MB (CK-2) CK-MB (CK-2) Rel Index Troponin T C-Reactive Protein Total Protein Albumin Triglycerides Ur Specific [place] Urine Blood Urine WBC (Auto) Urine Creatinine Digoxin Coronavirus (PCR) 04/25/22 04/25/22 04/25/22 03:30 03:30 04:38 WBC 19.7 H RBC 3.39 L Hgb 9.8 L Hct 30.2 L RDW 15.6 H Plt Count Lymph % (Auto) 4.7 L [place] % (Auto) Eos % (Auto) 5.0 H Lymph # (Auto) 0.9 L [place] # (Auto) 1.2 H Eos # (Auto) 1.0 H Seg Neutrophils % 84.0 H Seg Neuts % (Manual) Lymphocytes % (Manual) Eosinophils % (Manual) Seg Neutrophils # 16.5 H Seg Neutrophils # Man Lymphocytes # (Manual) Eosinophils # (Manual) PT Activated Coag Time Heparin Anti-Xa Level ABG pH ABG pO2 ABG HCO3 ABG O2 Saturation ABG Base Excess ABG Hemoglobin Oxyhemoglobin Sodium 151 H Potassium 3.5 L Chloride 108.6 H Carbon Dioxide 31 H BUN 27 H Creatinine 1.9 H Glucose 144 H POC Glucose 135 H Lactic Acid Calcium 8.3 L Phosphorus Magnesium Direct Bilirubin AST ALT Alkaline Phosphatase Total Creatine Kinase CK-MB (CK-2) CK-MB (CK-2) Rel Index Troponin T C-Reactive Protein Total Protein Albumin Triglycerides Ur Specific [place] Urine Blood Urine WBC (Auto) Urine Creatinine Digoxin Coronavirus (PCR) 04/25/22 04/25/22 04/25/22 05:09 12:12 17:58 WBC RBC Hgb Hct RDW Plt Count Lymph % (Auto) [place] % (Auto) Eos % (Auto) Lymph # (Auto) [place] # (Auto) Eos # (Auto) Seg Neutrophils % Seg Neuts % (Manual) Lymphocytes % (Manual) Eosinophils % (Manual) Seg Neutrophils # Seg Neutrophils # Man Lymphocytes # (Manual) Eosinophils # (Manual) PT Activated Coag Time Heparin Anti-Xa Level ABG pH ABG pO2 ABG HCO3 32.2 H ABG O2 Saturation ABG Base Excess 6.7 H ABG Hemoglobin 9.9 L Oxyhemoglobin 94.9 L Sodium Potassium Chloride Carbon Dioxide BUN Creatinine Glucose POC Glucose 218 H 229 H Lactic Acid Calcium Phosphorus Magnesium Direct Bilirubin AST ALT Alkaline Phosphatase Total Creatine Kinase CK-MB (CK-2) CK-MB (CK-2) Rel Index Troponin T C-Reactive Protein Total Protein Albumin Triglycerides Ur Specific [place] Urine Blood Urine WBC (Auto) Urine Creatinine Digoxin Coronavirus (PCR) 04/25/22 04/25/22 04/26/22 18:00 23:48 05:20 WBC RBC Hgb 9.4 L Hct 30.1 L RDW Plt Count Lymph % (Auto) [place] % (Auto) Eos % (Auto) Lymph # (Auto) [place] # (Auto) Eos # (Auto) Seg Neutrophils % Seg Neuts % (Manual) Lymphocytes % (Manual) Eosinophils % (Manual) Seg Neutrophils # Seg Neutrophils # Man Lymphocytes # (Manual) Eosinophils # (Manual) PT Activated Coag Time Heparin Anti-Xa Level ABG pH ABG pO2 ABG HCO3 32.4 H ABG O2 Saturation ABG Base Excess 6.8 H ABG Hemoglobin 9.5 L Oxyhemoglobin Sodium Potassium Chloride Carbon Dioxide BUN Creatinine Glucose POC Glucose 214 H Lactic Acid Calcium Phosphorus Magnesium Direct Bilirubin AST ALT Alkaline Phosphatase Total Creatine Kinase CK-MB (CK-2) CK-MB (CK-2) Rel Index Troponin T C-Reactive Protein Total Protein Albumin Triglycerides Ur Specific [place] Urine Blood Urine WBC (Auto) Urine Creatinine Digoxin Coronavirus (PCR) 04/26/22 04/26/22 04/26/22 05:20 05:51 11:39 WBC RBC Hgb Hct RDW Plt Count Lymph % (Auto) [place] % (Auto) Eos % (Auto) Lymph # (Auto) [place] # (Auto) Eos # (Auto) Seg Neutrophils % Seg Neuts % (Manual) Lymphocytes % (Manual) Eosinophils % (Manual) Seg Neutrophils # Seg Neutrophils # Man Lymphocytes # (Manual) Eosinophils # (Manual) PT Activated Coag Time Heparin Anti-Xa Level ABG pH ABG pO2 ABG HCO3 ABG O2 Saturation ABG Base Excess ABG Hemoglobin Oxyhemoglobin Sodium 147 H Potassium Chloride Carbon Dioxide 33 H BUN 27 H Creatinine 1.6 H Glucose 221 H POC Glucose 227 H 263 H Lactic Acid Calcium Phosphorus Magnesium Direct Bilirubin AST ALT Alkaline Phosphatase Total Creatine Kinase CK-MB (CK-2) CK-MB (CK-2) Rel Index Troponin T C-Reactive Protein Total Protein Albumin Triglycerides Ur Specific [place] Urine Blood Urine WBC (Auto) Urine Creatinine Digoxin Coronavirus (PCR) 04/26/22 04/26/22 04/27/22 16:22 23:14 04:00 WBC RBC Hgb Hct RDW Plt Count Lymph % (Auto) [place] % (Auto) Eos % (Auto) Lymph # (Auto) [place] # (Auto) Eos # (Auto) Seg Neutrophils % Seg Neuts % (Manual) Lymphocytes % (Manual) Eosinophils % (Manual) Seg Neutrophils # Seg Neutrophils # Man Lymphocytes # (Manual) Eosinophils # (Manual) PT Activated Coag Time Heparin Anti-Xa Level ABG pH ABG pO2 ABG HCO3 ABG O2 Saturation ABG Base Excess ABG Hemoglobin Oxyhemoglobin Sodium Potassium Chloride Carbon Dioxide BUN 23 H Creatinine 1.4 H Glucose 231 H POC Glucose 250 H 221 H Lactic Acid Calcium 8.3 L Phosphorus Magnesium Direct Bilirubin AST 45 H ALT Alkaline Phosphatase 180 H Total Creatine Kinase CK-MB (CK-2) CK-MB (CK-2) Rel Index Troponin T C-Reactive Protein Total Protein Albumin 2.1 L Triglycerides Ur Specific [place] Urine Blood Urine WBC (Auto) Urine Creatinine Digoxin Coronavirus (PCR) 04/27/22 04/27/22 04/27/22 04:00 05:25 11:08 WBC 20.1 H RBC 3.28 L Hgb 9.5 L Hct 29.3 L RDW Plt Count Lymph % (Auto) 5.9 L [place] % (Auto) 8.0 H Eos % (Auto) 5.5 H Lymph # (Auto) [place] # (Auto) 1.6 H Eos # (Auto) 1.1 H Seg Neutrophils % 80.3 H Seg Neuts % (Manual) Lymphocytes % (Manual) Eosinophils % (Manual) Seg Neutrophils # 16.2 H Seg Neutrophils # Man Lymphocytes # (Manual) Eosinophils # (Manual) PT Activated Coag Time Heparin Anti-Xa Level ABG pH ABG pO2 ABG HCO3 ABG O2 Saturation ABG Base Excess ABG Hemoglobin Oxyhemoglobin Sodium Potassium Chloride Carbon Dioxide BUN Creatinine Glucose POC Glucose 234 H 224 H Lactic Acid Calcium Phosphorus Magnesium Direct Bilirubin AST ALT Alkaline Phosphatase Total Creatine Kinase CK-MB (CK-2) CK-MB (CK-2) Rel Index Troponin T C-Reactive Protein Total Protein Albumin Triglycerides Ur Specific [place] Urine Blood Urine WBC (Auto) Urine Creatinine Digoxin Coronavirus (PCR) 04/28/22 04/28/22 04/28/22 00:01 05:25 05:28 WBC 16.1 H RBC 3.32 L Hgb 9.4 L Hct 29.9 L RDW Plt Count Lymph % (Auto) [place] % (Auto) Eos % (Auto) Lymph # (Auto) [place] # (Auto) Eos # (Auto) Seg Neutrophils % Seg Neuts % (Manual) Lymphocytes % (Manual) Eosinophils % (Manual) Seg Neutrophils # Seg Neutrophils # Man Lymphocytes # (Manual) Eosinophils # (Manual) PT Activated Coag Time Heparin Anti-Xa Level ABG pH 7.489 H ABG pO2 72.5 L ABG HCO3 27.8 H ABG O2 Saturation ABG Base Excess 4.3 H ABG Hemoglobin 9.2 L Oxyhemoglobin 94.6 L Sodium Potassium Chloride Carbon Dioxide BUN Creatinine Glucose POC Glucose 189 H Lactic Acid Calcium Phosphorus Magnesium Direct Bilirubin AST ALT Alkaline Phosphatase Total Creatine Kinase CK-MB (CK-2) CK-MB (CK-2) Rel Index Troponin T C-Reactive Protein Total Protein Albumin Triglycerides Ur Specific [place] Urine Blood Urine WBC (Auto) Urine Creatinine Digoxin Coronavirus (PCR) 04/28/22 04/28/22 04/28/22 05:28 05:44 08:20 WBC RBC Hgb Hct RDW Plt Count Lymph % (Auto) [place] % (Auto) Eos % (Auto) Lymph # (Auto) [place] # (Auto) Eos # (Auto) Seg Neutrophils % Seg Neuts % (Manual) Lymphocytes % (Manual) Eosinophils % (Manual) Seg Neutrophils # Seg Neutrophils # Man Lymphocytes # (Manual) Eosinophils # (Manual) PT Activated Coag Time Heparin Anti-Xa Level ABG pH ABG pO2 ABG HCO3 ABG O2 Saturation ABG Base Excess ABG Hemoglobin Oxyhemoglobin Sodium Potassium Chloride Carbon Dioxide BUN 22 H Creatinine 1.4 H Glucose 179 H POC Glucose 181 H Lactic Acid Calcium 8.2 L Phosphorus Magnesium Direct Bilirubin AST ALT Alkaline Phosphatase Total Creatine Kinase CK-MB (CK-2) CK-MB (CK-2) Rel Index Troponin T C-Reactive Protein 15.30 H Total Protein Albumin Triglycerides Ur Specific [place] Urine Blood Urine WBC (Auto) Urine Creatinine Digoxin Coronavirus (PCR) 04/28/22 04/28/22 04/28/22 08:35 11:13 12:07 WBC RBC Hgb Hct RDW Plt Count Lymph % (Auto) [place] % (Auto) Eos % (Auto) Lymph # (Auto) [place] # (Auto) Eos # (Auto) Seg Neutrophils % Seg Neuts % (Manual) Lymphocytes % (Manual) Eosinophils % (Manual) Seg Neutrophils # Seg Neutrophils # Man Lymphocytes # (Manual) Eosinophils # (Manual) PT Activated Coag Time Heparin Anti-Xa Level ABG pH 7.203 L ABG pO2 43.7 L ABG HCO3 27.7 H ABG O2 Saturation 63.0 L ABG Base Excess ABG Hemoglobin 10.6 L Oxyhemoglobin 61.6 L Sodium Potassium Chloride Carbon Dioxide BUN Creatinine Glucose POC Glucose 131 H Lactic Acid Calcium Phosphorus Magnesium Direct Bilirubin AST ALT Alkaline Phosphatase Total Creatine Kinase CK-MB (CK-2) CK-MB (CK-2) Rel Index Troponin T C-Reactive Protein Total Protein Albumin Triglycerides Ur Specific [place] 1.000 L Urine Blood Urine WBC (Auto) 21.0 H Urine Creatinine Digoxin Coronavirus (PCR) 04/28/22 04/28/22 04/29/22 16:20 16:27 00:32 WBC RBC Hgb Hct RDW Plt Count Lymph % (Auto) [place] % (Auto) Eos % (Auto) Lymph # (Auto) [place] # (Auto) Eos # (Auto) Seg Neutrophils % Seg Neuts % (Manual) Lymphocytes % (Manual) Eosinophils % (Manual) Seg Neutrophils # Seg Neutrophils # Man Lymphocytes # (Manual) Eosinophils # (Manual) PT Activated Coag Time Heparin Anti-Xa Level ABG pH 7.461 H ABG pO2 99.9 H ABG HCO3 28.0 H ABG O2 Saturation ABG Base Excess 3.9 H ABG Hemoglobin 7.7 L Oxyhemoglobin Sodium Potassium Chloride Carbon Dioxide BUN Creatinine Glucose POC Glucose 136 H 205 H Lactic Acid Calcium Phosphorus Magnesium Direct Bilirubin AST ALT Alkaline Phosphatase Total Creatine Kinase CK-MB (CK-2) CK-MB (CK-2) Rel Index Troponin T C-Reactive Protein Total Protein Albumin Triglycerides Ur Specific [place] Urine Blood Urine WBC (Auto) Urine Creatinine Digoxin Coronavirus (PCR) 04/29/22 04/29/22 04/29/22 02:35 03:20 04:20 WBC 19.8 H RBC 3.17 L Hgb 9.0 L Hct 27.9 L RDW Plt Count 481 H Lymph % (Auto) 5.7 L [place] % (Auto) 7.8 H Eos % (Auto) Lymph # (Auto) 1.1 L [place] # (Auto) 1.5 H Eos # (Auto) 0.8 H Seg Neutrophils % 82.0 H Seg Neuts % (Manual) Lymphocytes % (Manual) Eosinophils % (Manual) Seg Neutrophils # 16.3 H Seg Neutrophils # Man Lymphocytes # (Manual) Eosinophils # (Manual) PT Activated Coag Time Heparin Anti-Xa Level ABG pH 7.487 H ABG pO2 176.1 H ABG HCO3 27.6 H ABG O2 Saturation 99.2 H ABG Base Excess 4.0 H ABG Hemoglobin 9.6 L Oxyhemoglobin Sodium Potassium Chloride Carbon Dioxide BUN Creatinine Glucose POC Glucose 223 H Lactic Acid Calcium Phosphorus Magnesium Direct Bilirubin AST ALT Alkaline Phosphatase Total Creatine Kinase CK-MB (CK-2) CK-MB (CK-2) Rel Index Troponin T C-Reactive Protein Total Protein Albumin Triglycerides Ur Specific [place] Urine Blood Urine WBC (Auto) Urine Creatinine Digoxin Coronavirus (PCR) 04/29/22 04/29/22 04/29/22 04:20 05:43 09:38 WBC RBC Hgb Hct RDW Plt Count Lymph % (Auto) [place] % (Auto) Eos % (Auto) Lymph # (Auto) [place] # (Auto) Eos # (Auto) Seg Neutrophils % Seg Neuts % (Manual) Lymphocytes % (Manual) Eosinophils % (Manual) Seg Neutrophils # Seg Neutrophils # Man Lymphocytes # (Manual) Eosinophils # (Manual) PT Activated Coag Time Heparin Anti-Xa Level ABG pH ABG pO2 ABG HCO3 ABG O2 Saturation ABG Base Excess ABG Hemoglobin Oxyhemoglobin Sodium Potassium Chloride Carbon Dioxide BUN 30 H Creatinine 1.6 H Glucose 236 H POC Glucose 202 H Lactic Acid Calcium 8.1 L Phosphorus Magnesium Direct Bilirubin AST 143 H ALT 105 H Alkaline Phosphatase 210 H Total Creatine Kinase CK-MB (CK-2) CK-MB (CK-2) Rel Index Troponin T C-Reactive Protein Total Protein 6.2 L Albumin 2.0 L Triglycerides Ur Specific [place] Urine Blood Urine WBC (Auto) Urine Creatinine Digoxin Coronavirus (PCR) Positive A 04/29/22 04/29/22 04/29/22 12:08 18:14 21:11 WBC RBC Hgb Hct RDW Plt Count Lymph % (Auto) [place] % (Auto) Eos % (Auto) Lymph # (Auto) [place] # (Auto) Eos # (Auto) Seg Neutrophils % Seg Neuts % (Manual) Lymphocytes % (Manual) Eosinophils % (Manual) Seg Neutrophils # Seg Neutrophils # Man Lymphocytes # (Manual) Eosinophils # (Manual) PT Activated Coag Time Heparin Anti-Xa Level ABG pH ABG pO2 ABG HCO3 ABG O2 Saturation ABG Base Excess ABG Hemoglobin Oxyhemoglobin Sodium Potassium Chloride Carbon Dioxide BUN Creatinine Glucose POC Glucose 152 H 151 H 140 H Lactic Acid Calcium Phosphorus Magnesium Direct Bilirubin AST ALT Alkaline Phosphatase Total Creatine Kinase CK-MB (CK-2) CK-MB (CK-2) Rel Index Troponin T C-Reactive Protein Total Protein Albumin Triglycerides Ur Specific [place] Urine Blood Urine WBC (Auto) Urine Creatinine Digoxin Coronavirus (PCR) 04/29/22 04/30/22 04/30/22 23:58 04:25 04:25 WBC 13.3 H RBC 2.81 L Hgb 8.0 L Hct 24.4 L RDW Plt Count 441 H Lymph % (Auto) [place] % (Auto) Eos % (Auto) Lymph # (Auto) [place] # (Auto) Eos # (Auto) Seg Neutrophils % Seg Neuts % (Manual) Lymphocytes % (Manual) Eosinophils % (Manual) Seg Neutrophils # Seg Neutrophils # Man Lymphocytes # (Manual) Eosinophils # (Manual) PT Activated Coag Time Heparin Anti-Xa Level ABG pH ABG pO2 ABG HCO3 ABG O2 Saturation ABG Base Excess ABG Hemoglobin Oxyhemoglobin Sodium Potassium 3.2 L Chloride Carbon Dioxide BUN 26 H Creatinine 1.5 H Glucose 105 H POC Glucose 135 H Lactic Acid Calcium 8.0 L Phosphorus Magnesium Direct Bilirubin 0.3 H AST 138 H ALT 94 H Alkaline Phosphatase 172 H Total Creatine Kinase CK-MB (CK-2) CK-MB (CK-2) Rel Index Troponin T C-Reactive Protein Total Protein 5.5 L Albumin 2.0 L Triglycerides Ur Specific [place] Urine Blood Urine WBC (Auto) Urine Creatinine Digoxin Coronavirus (PCR) 04/30/22 04/30/22 04/30/22 04:25 05:20 10:19 WBC RBC Hgb Hct RDW Plt Count Lymph % (Auto) [place] % (Auto) Eos % (Auto) Lymph # (Auto) [place] # (Auto) Eos # (Auto) Seg Neutrophils % Seg Neuts % (Manual) Lymphocytes % (Manual) Eosinophils % (Manual) Seg Neutrophils # Seg Neutrophils # Man Lymphocytes # (Manual) Eosinophils # (Manual) PT Activated Coag Time Heparin Anti-Xa Level ABG pH 7.514 H ABG pO2 73.4 L ABG HCO3 28.1 H ABG O2 Saturation ABG Base Excess 4.8 H ABG Hemoglobin 7.8 L Oxyhemoglobin 94.9 L Sodium Potassium 3.3 L Chloride Carbon Dioxide BUN 26 H Creatinine 1.4 H Glucose 108 H POC Glucose Lactic Acid Calcium 7.5 L Phosphorus Magnesium Direct Bilirubin AST 183 H ALT 112 H Alkaline Phosphatase 175 H Total Creatine Kinase CK-MB (CK-2) CK-MB (CK-2) Rel Index Troponin T C-Reactive Protein Total Protein 5.0 L Albumin 2.1 L Triglycerides Ur Specific [place] Urine Blood Urine WBC (Auto) Urine Creatinine Digoxin 0.6 L Coronavirus (PCR) 04/30/22 04/30/22 04/30/22 12:46 17:37 21:18 WBC RBC Hgb Hct RDW Plt Count Lymph % (Auto) [place] % (Auto) Eos % (Auto) Lymph # (Auto) [place] # (Auto) Eos # (Auto) Seg Neutrophils % Seg Neuts % (Manual) Lymphocytes % (Manual) Eosinophils % (Manual) Seg Neutrophils # Seg Neutrophils # Man Lymphocytes # (Manual) Eosinophils # (Manual) PT Activated Coag Time Heparin Anti-Xa Level ABG pH ABG pO2 ABG HCO3 ABG O2 Saturation ABG Base Excess ABG Hemoglobin Oxyhemoglobin Sodium Potassium Chloride Carbon Dioxide BUN Creatinine Glucose POC Glucose 109 H 143 H 182 H Lactic Acid Calcium Phosphorus Magnesium Direct Bilirubin AST ALT Alkaline Phosphatase Total Creatine Kinase CK-MB (CK-2) CK-MB (CK-2) Rel Index Troponin T C-Reactive Protein Total Protein Albumin Triglycerides Ur Specific [place] Urine Blood Urine WBC (Auto) Urine Creatinine Digoxin Coronavirus (PCR) 04/30/22 05/01/22 05/01/22 23:41 04:00 04:44 WBC 16.9 H RBC 3.03 L Hgb 8.7 L Hct 26.7 L RDW Plt Count 566 H Lymph % (Auto) [place] % (Auto) Eos % (Auto) Lymph # (Auto) [place] # (Auto) Eos # (Auto) Seg Neutrophils % Seg Neuts % (Manual) Lymphocytes % (Manual) Eosinophils % (Manual) Seg Neutrophils # Seg Neutrophils # Man Lymphocytes # (Manual) Eosinophils # (Manual) PT Activated Coag Time Heparin Anti-Xa Level ABG pH ABG pO2 ABG HCO3 ABG O2 Saturation ABG Base Excess ABG Hemoglobin Oxyhemoglobin Sodium Potassium Chloride 107.1 H Carbon Dioxide BUN 33 H Creatinine 1.5 H Glucose 161 H POC Glucose 196 H Lactic Acid Calcium 8.0 L Phosphorus Magnesium Direct Bilirubin AST 137 H ALT 111 H Alkaline Phosphatase 183 H Total Creatine Kinase CK-MB (CK-2) CK-MB (CK-2) Rel Index Troponin T C-Reactive Protein Total Protein Albumin 2.1 L Triglycerides 214 H Ur Specific [place] Urine Blood Urine WBC (Auto) Urine Creatinine Digoxin Coronavirus (PCR) 05/01/22 05/01/22 05/01/22 05:07 09:40 12:16 WBC RBC Hgb Hct RDW Plt Count Lymph % (Auto) [place] % (Auto) Eos % (Auto) Lymph # (Auto) [place] # (Auto) Eos # (Auto) Seg Neutrophils % Seg Neuts % (Manual) Lymphocytes % (Manual) Eosinophils % (Manual) Seg Neutrophils # Seg Neutrophils # Man Lymphocytes # (Manual) Eosinophils # (Manual) PT Activated Coag Time Heparin Anti-Xa Level ABG pH 7.496 H ABG pO2 72.8 L ABG HCO3 26.7 H ABG O2 Saturation ABG Base Excess ABG Hemoglobin 8.5 L Oxyhemoglobin Sodium Potassium Chloride Carbon Dioxide BUN Creatinine Glucose POC Glucose 145 H Lactic Acid Calcium Phosphorus Magnesium Direct Bilirubin AST ALT Alkaline Phosphatase Total Creatine Kinase CK-MB (CK-2) CK-MB (CK-2) Rel Index Troponin T C-Reactive Protein Total Protein Albumin Triglycerides Ur Specific [place] Urine Blood Urine WBC (Auto) Urine Creatinine Digoxin 0.5 L Coronavirus (PCR) 05/01/22 05/01/22 05/01/22 12:17 14:30 16:14 WBC RBC Hgb Hct RDW Plt Count Lymph % (Auto) [place] % (Auto) Eos % (Auto) Lymph # (Auto) [place] # (Auto) Eos # (Auto) Seg Neutrophils % Seg Neuts % (Manual) Lymphocytes % (Manual) Eosinophils % (Manual) Seg Neutrophils # Seg Neutrophils # Man Lymphocytes # (Manual) Eosinophils # (Manual) PT Activated Coag Time Heparin Anti-Xa Level ABG pH ABG pO2 ABG HCO3 26.2 H ABG O2 Saturation ABG Base Excess ABG Hemoglobin 7.8 L Oxyhemoglobin Sodium Potassium Chloride Carbon Dioxide BUN Creatinine Glucose POC Glucose 232 H 220 H Lactic Acid Calcium Phosphorus Magnesium Direct Bilirubin AST ALT Alkaline Phosphatase Total Creatine Kinase CK-MB (CK-2) CK-MB (CK-2) Rel Index Troponin T C-Reactive Protein Total Protein Albumin Triglycerides Ur Specific [place] Urine Blood Urine WBC (Auto) Urine Creatinine Digoxin Coronavirus (PCR) 05/01/22 05/01/22 05/02/22 21:59 23:45 04:45 WBC RBC Hgb Hct RDW Plt Count Lymph % (Auto) [place] % (Auto) Eos % (Auto) Lymph # (Auto) [place] # (Auto) Eos # (Auto) Seg Neutrophils % Seg Neuts % (Manual) Lymphocytes % (Manual) Eosinophils % (Manual) Seg Neutrophils # Seg Neutrophils # Man Lymphocytes # (Manual) Eosinophils # (Manual) PT Activated Coag Time Heparin Anti-Xa Level ABG pH ABG pO2 ABG HCO3 ABG O2 Saturation ABG Base Excess ABG Hemoglobin 9.3 L Oxyhemoglobin Sodium Potassium Chloride Carbon Dioxide BUN Creatinine Glucose POC Glucose 251 H 203 H Lactic Acid Calcium Phosphorus Magnesium Direct Bilirubin AST ALT Alkaline Phosphatase Total Creatine Kinase CK-MB (CK-2) CK-MB (CK-2) Rel Index Troponin T C-Reactive Protein Total Protein Albumin Triglycerides Ur Specific [place] Urine Blood Urine WBC (Auto) Urine Creatinine Digoxin Coronavirus (PCR) 05/02/22 05/02/22 05/02/22 04:47 04:59 04:59 WBC 17.9 H RBC 3.06 L Hgb 8.6 L Hct 26.7 L RDW 15.5 H Plt Count 597 H Lymph % (Auto) [place] % (Auto) Eos % (Auto) Lymph # (Auto) [place] # (Auto) Eos # (Auto) Seg Neutrophils % Seg Neuts % (Manual) Lymphocytes % (Manual) Eosinophils % (Manual) Seg Neutrophils # Seg Neutrophils # Man Lymphocytes # (Manual) Eosinophils # (Manual) PT Activated Coag Time Heparin Anti-Xa Level ABG pH ABG pO2 ABG HCO3 ABG O2 Saturation ABG Base Excess ABG Hemoglobin Oxyhemoglobin Sodium 147 H Potassium Chloride 111.5 H Carbon Dioxide BUN 36 H Creatinine Glucose 136 H POC Glucose 120 H Lactic Acid Calcium 8.0 L Phosphorus Magnesium Direct Bilirubin AST 73 H ALT 90 H Alkaline Phosphatase 171 H Total Creatine Kinase CK-MB (CK-2) CK-MB (CK-2) Rel Index Troponin T C-Reactive Protein Total Protein Albumin 2.3 L Triglycerides Ur Specific [place] Urine Blood Urine WBC (Auto) Urine Creatinine Digoxin Coronavirus (PCR) Chest x-ray: image reviewed Allied health notes reviewed: RT
[2022-05-02] MEDS ORDERED: FUROSEMIDE 40 MG/4 ML INJ IV ONE (10:00)
[2022-05-02] MEDS: VANCOMYCIN 1,750 MG in SODIUM CHLORIDE 0.9% 500 ML 500 ML IV SCH (10:06)
[2022-05-02] MEDS: INSULIN GLARGINE 100 UNITS/ML SUB-Q SCH ×2 (10:06→22:41)
[2022-05-02] MEDS: ZINC SULFATE 220 MG CAP PO SCH ×2 (10:30→22:40)
[2022-05-02] MEDS: METOPROLOL SUCCINATE XL 25 MG TAB PO SCH (10:30)
[2022-05-02] MEDS: ENOXAPARIN 120 MG/0.8 ML INJ SUB-Q SCH ×2 (10:30→22:39)
--- NOTE | 2022-05-02 11:15 | Progress Note ---
<ANDIE MARIANO - Last Filed: 05/02/22 16:13> Assessment and Plan Assessment and plan: This is a 61-year-old male with known past medical history of obsesity, DM, HTN, and Atrial fibrillation s/p cardioversion over 12hrs ago, unclear if patient was on AC at home admitted s/p outside of the hospital cardiac arrest/V-fib arrest with ROSC. Hospital Course to Date: 04/18: Severely acidotic this am, now on bcarb gtt. On high dose pressors- Levophed and Vaso. Afib in control rate on the monitor, on Amiodarone and heparin gtt per protocol. Cardiology is following. Patient remains afebrile and leukocytosis improved this am. Now with worsen renal function and low UOP. Patient's EF is 25 to 30%, Dobutamine gtt initiated. Continue current IV abx, continue to trend troponin and lactic acid. Nephrology also consulted for further recs. BLE swelling noted, BLE doppler ordered to r/o DVT. 04/19: Agitation with low SPO2 overnight, sedation increased. This am ABG with worsen hypoxia on 40% Fio2, SPO2 at 90% this am. Fio2 increased to 50%, SPO2 improved above 92%. Remains on multiple pressors and bcarb gtt. Now on dopamine gtt, in Afib with RVR on the monitor. Still on Amiodarone and heparin gtts. Echo noted, EF 15 to 20%. Cardiology is following. With worsen renal function, however making urine this am. No indication for PERSONNEL CONSULTANT at this per Nephro. Will continue to monitor. Monitor and replace electrolytes as needed 04/20: Nephrology spoke to at bedside re HD, cardiology will proceed with [facility] if patient is to recieve HD post procedure, vent changes per [facility], Sedated with fentanyl and propofol with heparin and amio gtt infusing. 04/21: LHC today. Nephrology will continue IVF and if renal function worsens then will proceed HD with consent from family. Patient became hypoxic with FiO2 at 40% yesterday evening and is currently at 65%. 04/22: Patient was started on vasopressin IV fluids yesterday and his creatinine decreased from 4.2 to 2.9. Patient severely agitated while on propofol and fentanyl. Started low-dose Seroquel and started to wean propofol as tolerated. Patient does follow commands today. Increase in lantus. IV fluids decreased, started on dobutamine per CCM and wean vasopressin for target MAP of 65-70 and SBP greater than 110 04/23: This morning patient being extremely hypertensive with SBP into 200s and given metoprolol. Rn asked to wean propofol as tolerated. Dobutamine decreased to 2.5. Cr improved. US chest completed and showed no pleural effusions. This afternoon alerted by RN that RT believes pt bite through his tube and anesthesia was called to bedside for tube exchange. Decision was made to extubate and reintubate the patient. CXR ordered. 04/24: Patient placed on CPAP trial. Renal numbers look better today. Cardiology would like to try digoxin. No acute events reported overnight. 04/25: Patient now with hypernatremia, slightly increased renal function today but still putting out over 1 L urine over the past 24 hours. Will increase free water flushes and repleate potassium cautiously. Cardilogy will like to continue current management. PSV when able 04/26: Cardiology will increase amiodarone due to heart rate being in the 110s to 120s and will hold off digoxin, remains on dobutamine drip. Hypernatremia improving. Remains on D5 W per nephrology. PSV this AM. Rash noted to trunk, arms, chest. RN to hold off Seroquel. Started on IV Benadryl. Already n.p.o. famotidine. Updated [place] physician who also informed me that the patient is allergic to lisinopril (angioedema) 04/27: Tolerating PSV trail this am on low dose sedation. Per CCM, plan to wean vent setting for possible extubation. If patient requires higher dose of sedation, will add precedex gtt for trial to wean off sedation. Patient with low grade fevers with worsening leukopcytosis, B.cultures from yesterday with NGTD. Will do a lines vacations, D/C CVC and penn. Patient is hemodynamically stable, will continue to monitor for now. Patient is also net positive balance since admit, hypernatremia resolved, and renal function improved, will decrease IVF fo r now. Nephrology is also following. 04/28: Self-extubated this afternoon, requiring emergent reintubation. Flash pulmonary edema noted during intubation, X1 dose of IV lasix administered. Currently hypertensive and Afib with RVR, HR in the 110-130s, sedations resumed. Persistent fevers overnight with leukocytosis, repeat blood culture with no growth. Orders placed for UA and repeat sputum culture. Empiric IV Abx, Cefepine and vanc initiated. ID was also consulted. Continue vent wean/adjustment per CCM. Penn was reinserted overnight due to retention, will reassess in the next 24hrs to 48hrs. 04/29: Remains stable on the vent, this am CXR and ABG with significant improvement. On low dose pressors this am, MAP in the 70s, titrate pressor to maintain MAP in the 70s. Still with persistent fevers despite current IV abx, repeat cultures with NGTD. Orders placed for COVID and Flu PCR.. Worsen LFTs this am, d/w Cardio will D/C PO amio, X2 dose of IV digoxin for rate control. Renal function stable, patient responded well to IV lasix, over 5L out in last 24hrs. Will hold off on diurese today per Nephro, will reassess in the am. Insulin regimen adjusted for hyperglycemia. 04/30: Stable on low vent settings this am. Off pressors, fevers and leukocytosis improved. COVID PCR came back positive, IV steroids initiated. And ID recommendations noted- continue Cefepine and Vanc, Redemsevir added. Remains with transaminitis, abdominal US pending. Patient remains in Afib control, tolerated IV dig. Plan for daily PO dig per Cardiology. Renal function is stable, X1 dose of IV lasix today. K repleted, continue to monitor and replace electrolytes as needed. 05/01: Remains stable on the vent. Fevers improved and VSS. Plan to wean propofol gtt for possible PSV trial this am. Okay to SBT on low dose fentynal gtt per CCM. Tolerated IV lasix, good UOP overnight. Renal function remains stable, will continue to monitor. Possible transfer to [place] whenever a bed is available. 05/02: Off sedations this am, tolerating PSV trial. Plan for possible extubation today per CCM. Renal function continue to improve, X1 dose of IV lasix given prior to possible extubation. PT/OT/Speech ordered. Assessment and Plan #Cardiogenic Shock #S/p Cardiac Arrest/V-Fib Arrest with ROSC #NSTEMI #H/o Atrial Fibrillation, HTN - Found in the bathroom unresponsive at a [place] facility. - EMS found patient in V-Fib arrest treated per ACLS ROSC achieved - Positive troponinX3, EKG with no significant ST changes - s/p Dopamine and Dobutamine gtts - Afib control on the monitor, HR 90-100s - 2D echo reviewed. EF 15 to 20% - [facility] severe nonischemic cardiomyopathy with patent coronary arteries, which per cardiology presumably resulted in a primary cardiac arrest. - PO Amio held due to worsen LFts - S/p X2 dose IV dig, now on daily PO Dig per Cardio - Continue blood pressure monitor per protocol - Maintain MAP above 65 and SBP less than 160 #Acute Hypoxemic Respiratory Failure - Intubated in the filed during code on 04/17 - [id number] this afternoon, requiring emergent reintubation - Flash pulmonary edema noted during reintubation X1 dose of IV lasix - Vent setting: PSV-30%,6 PS-10 - CCM consulted, appreciate recommendations - Continue vent adjustement per CCM - VAP bundle addressed - Aspiration precaution HOB above 30 - Daily SBT and SAT trials as tolerated - Daily ABG and CXR - Continue SPO2 monitoring for SPO2 goal above 92% - Per CCM, plan to wean vent setting for possible extubation. #Acute Metabolic Encephalopathy-improved #Agitation-improved #Face Contusion s/p Fall-improved - Found in the bathroom unresponsive at a [place] facility. Most likely fell and hit his head - CT head reviewed, no acute intracranial abnormality - Awake and appropriate today, off sedations - If patient requires higher dose of sedation, will add precedex gtt for trial to wean off sedation. - Daily SAT and SBT per CCM - Avoid benzodiazepine to reduce the possibility of delirium - PRN Analgesia CPOT greater than 3 - Maintenance of sleep-wake cycle #Acute Kidney Injury(VINCENT) most likely ATN #Hypernatremia-improved #Hypekalemia-resolved - secondary to above. hypoperfusion/hypotension - Patient also received IV contrast - Baseline renal function is unknown - Hypernatremia and renal function continue to improved - X1 dose of IV lasix again today - Nephrology on consult, appreciated recommendation - Strict intake and output - Avoid nephrotoxic medications; Renally dose medications - Penn in place with great UOP - Monitor and replace electrolytes as needed - Continue FWF #Sepsis #Bilateral Pneumonia #COVID 19 Infection #Severe Metabolic Acidosis-resolved - Initial Imaging reveals bilateral airspace disease, greater in the Upper lobes. Most likely aspiration - Fevers and leukocytosis improved - UA with elevated WBCs - Blood culture with NGTD, Sputum culture with usual adina - Flu PCR negative, COVID PCR positive - On IV Steroids - ID consulted, appreciate recommendations - Continue Cefepine and Vanc, & Redemsevir - F/U on cultures - Daily CBC monitor #Transaminitis #Hepatic Steatosis #Shock Liver-improved - most likely reactive from above/hypoperfusion - LFT improved post cardiac event - LFTs trending back up this am, PO amio held - Abdominal US noted, hepatic steatosis - Continue to trend LFTs #Elevated D-Dimer - CTA chest with no evidence of PE - With BLE swelling- BLE doppler pending - On Heparin #Type 2 Diabetes Mellitus - BG check and SSI Q6hrs - Lantus BID - Avoid hypoglycemia #GI/DVT Prophylaxis - PPI- Pepcid - Heparin SubQ - SCDs to bilateral lower extremities while in bed #Advance Care Planning - Disease education data, care plan, diagnoses, and prognosis were discussed with patient's at the bedside. Patient is a FULL code. Patient's acknowledged understanding and agreed with current care plan. The high probability of a clinically significant, sudden or life threatening deterioration of the [multiple] system(s) required my full and direct attention, intervention and personal management. The aggregate critical care time was [60] minutes. This time is in addition to time spent performing reported procedures but includes the following: [x] Data Review and interpretation [x] Patient assessment and monitoring of vital signs [x] Documentation [x] Medication orders and management Disposition Plan: ICU Total Time Spent with Patient (Minutes): 60 History Interval history: Patient seen and examined at the bedside. Stable on the event, off sedation. Tolerating PSV trial for possible extubation. Remains in Afib control on the monitor. VSS. GERONIMO overnight Hospitalist Physical - Physical exam Narrative exam: General appearance: Present: no acute distress, other (Intubated) - EENT Eyes: Present: PERRL - Neck Neck: Present: normal ROM - Respiratory Respiratory effort: labored Respiratory: bilateral: rhonchi - Cardiovascular Rhythm: irregularly irregular Heart Sounds: Present: S1 & S2 - Extremities Extremities: no ischemia, pulses intact, pulses symmetrical Extremity abnormal: edema - Peripheral Assessment Bilateral Upper Extremity Edema Type: Pitting Edema Degree: 3+ Capillary Refill: < 3 seconds Skin Temperature: Warm Generalized Edema Type: Pitting Edema Degree: 2+ Capillary Refill: < 3 seconds Skin Temperature: Warm Peripheral Pulses: within normal limits - Abdominal General gastrointestinal: soft, non-distended, normal bowel sounds - Integumentary Integumentary: Present: warm, dry - Psychiatric Psychiatric: Calm and appropriate, cooperative, other (Intubated, off sedations) - Neurologic Neurologic: Move all extremities, other (Intubated, awake and following commands) - Allied Health Allied health notes reviewed: nursing, case management - Constitutional Vitals: Temp Pulse Resp BP Pulse Ox 98.9 F 73 15 143/81 98 05/02/22 08:00 05/02/22 10:46 05/02/22 10:46 05/02/22 10:46 05/02/22 10:46 HEART Score - HEART Score Troponin: Troponin T 2.980 ng/mL (0.00-0.029) H* 04/19/22 07:11 Results - Labs CBC & Chem 7: 05/02/22 04:59 05/02/22 04:59 Labs: Laboratory Last Values WBC 17.9 K/mm3 (4.5-11.0) H 05/02/22 04:59 RBC 3.06 M/mm3 (3.65-5.03) L 05/02/22 04:59 Hgb 8.6 gm/dl (11.8-15.2) L 05/02/22 04:59 Hct 26.7 % (35.5-45.6) L 05/02/22 04:59 MCV 87 fl (84-94) 05/02/22 04:59 MCH 28 pg (28-32) 05/02/22 04:59 MCHC 32 % (32-34) 05/02/22 04:59 RDW 15.5 % (13.2-15.2) H 05/02/22 04:59 Plt Count 597 K/mm3 (140-440) H 05/02/22 04:59 Lymph % (Auto) 5.7 % (13.4-35.0) L 04/29/22 04:20 [place] % (Auto) 7.8 % (0.0-7.3) H 04/29/22 04:20 Eos % (Auto) 3.9 % (0.0-4.3) 04/29/22 04:20 Baso % (Auto) 0.6 % (0.0-1.8) 04/29/22 04:20 Lymph # (Auto) 1.1 K/mm3 (1.2-5.4) L 04/29/22 04:20 [place] # (Auto) 1.5 K/mm3 (0.0-0.8) H 04/29/22 04:20 Eos # (Auto) 0.8 K/mm3 (0.0-0.4) H 04/29/22 04:20 Baso # (Auto) 0.1 K/mm3 (0.0-0.1) 04/29/22 04:20 Add Manual Diff Complete 04/23/22 04:19 Total Counted 100 04/23/22 04:19 Seg Neutrophils % 82.0 % (40.0-70.0) H 04/29/22 04:20 Seg Neuts % (Manual) 74.0 % (40.0-70.0) H 04/23/22 04:19 Band Neutrophils % 2.0 % 04/23/22 04:19 Lymphocytes % (Manual) 10.0 % (13.4-35.0) L 04/23/22 04:19 Reactive Lymphs % (Man) 0 % 04/23/22 04:19 Monocytes % (Manual) 7.0 % (0.0-7.3) 04/23/22 04:19 Eosinophils % (Manual) 7.0 % (0.0-4.3) H 04/23/22 04:19 Basophils % (Manual) 0 % (0.0-1.8) 04/23/22 04:19 Metamyelocytes % 0 % 04/23/22 04:19 Myelocytes % 0 % 04/23/22 04:19 Promyelocytes % 0 % 04/23/22 04:19 Blast Cells % 0 % 04/23/22 04:19 Nucleated RBC % Not Reportable 04/23/22 04:19 Seg Neutrophils # 16.3 K/mm3 (1.8-7.7) H 04/29/22 04:20 Seg Neutrophils # Man 8.0 K/mm3 (1.8-7.7) H 04/23/22 04:19 Band Neutrophils # 0.2 K/mm3 04/23/22 04:19 Lymphocytes # (Manual) 1.1 K/mm3 (1.2-5.4) L 04/23/22 04:19 Abs React Lymphs (Man) 0.0 K/mm3 04/23/22 04:19 Monocytes # (Manual) 0.8 K/mm3 (0.0-0.8) 04/23/22 04:19 Eosinophils # (Manual) 0.8 K/mm3 (0.0-0.4) H 04/23/22 04:19 Basophils # (Manual) 0.0 K/mm3 (0.0-0.1) 04/23/22 04:19 Metamyelocytes # 0.0 K/mm3 04/23/22 04:19 Myelocytes # 0.0 K/mm3 04/23/22 04:19 Promyelocytes # 0.0 K/mm3 04/23/22 04:19 Blast Cells # 0.0 K/mm3 04/23/22 04:19 WBC Morphology Not Reportable 04/23/22 04:19 Hypersegmented Neuts Not Reportable 04/23/22 04:19 Hyposegmented Neuts Not Reportable 04/23/22 04:19 Hypogranular Neuts Not Reportable 04/23/22 04:19 Smudge Cells Not Reportable 04/23/22 04:19 Toxic Granulation Not Reportable 04/23/22 04:19 Toxic Vacuolation Not Reportable 04/23/22 04:19 Dohle Bodies Not Reportable 04/23/22 04:19 Pelger-Huet Anomaly Not Reportable 04/23/22 04:19 Regla Rods Not Reportable 04/23/22 04:19 Platelet Estimate Consistent w auto 04/23/22 04:19 Clumped Platelets Not Reportable 04/23/22 04:19 Plt Clumps, EDTA Not Reportable 04/23/22 04:19 Large Platelets Not Reportable 04/23/22 04:19 Giant Platelets Not Reportable 04/23/22 04:19 Platelet Satelliting Not Reportable 04/23/22 04:19 Plt Morphology Comment Not Reportable 04/23/22 04:19 RBC Morphology Not Reportable 04/23/22 04:19 Dimorphic RBCs Not Reportable 04/23/22 04:19 Polychromasia Not Reportable 04/23/22 04:19 Hypochromasia Not Reportable 04/23/22 04:19 Poikilocytosis Not Reportable 04/23/22 04:19 Anisocytosis Not Reportable 04/23/22 04:19 Microcytosis Not Reportable 04/23/22 04:19 Macrocytosis Not Reportable 04/23/22 04:19 Spherocytes Not Reportable 04/23/22 04:19 Pappenheimer Bodies Not Reportable 04/23/22 04:19 Sickle Cells Not Reportable 04/23/22 04:19 Target Cells Not Reportable 04/23/22 04:19 Tear Drop Cells Not Reportable 04/23/22 04:19 Ovalocytes Not Reportable 04/23/22 04:19 Helmet Cells Not Reportable 04/23/22 04:19 [place] Bodies Not Reportable 04/23/22 04:19 [place] Rings Not Reportable 04/23/22 04:19 [place] Cells Not Reportable 04/23/22 04:19 Bite Cells Not Reportable 04/23/22 04:19 Crenated Cell Not Reportable 04/23/22 04:19 Elliptocytes Not Reportable 04/23/22 04:19 Acanthocytes (Spur) Not Reportable 04/23/22 04:19 Rouleaux Not Reportable 04/23/22 04:19 Hemoglobin C Crystals Not Reportable 04/23/22 04:19 Schistocytes Not Reportable 04/23/22 04:19 Malaria parasites Not Reportable 04/23/22 04:19 [place] Bodies Not Reportable 04/23/22 04:19 Hem Pathologist Commnt No 04/23/22 04:19 PT 15.6 Sec. (12.2-14.9) H 04/18/22 Unknown INR 1.08 (0.87-1.13) 04/18/22 Unknown APTT 28.6 Sec. (24.2-36.6) 04/18/22 Unknown Activated Coag Time 179 (74-137) H 04/21/22 12:14 Heparin Anti-Xa Level 0.16 U.I./ml (0.3-0.7) L 04/21/22 04:00 ABG pH 7.442 pH Units (7.350-7.450) 05/02/22 04:45 ABG pCO2 37.8 mm Hg 05/02/22 04:45 ABG pO2 83.1 mm Hg (80.0-90.0) 05/02/22 04:45 ABG HCO3 25.2 mmol/L (20.0-26.0) 05/02/22 04:45 ABG O2 Saturation 97.0 % (95.0-99.0) 05/02/22 04:45 ABG O2 Content 12.6 (0.0-44) 05/02/22 04:45 ABG Base Excess 1.1 mmol/L (-2.0-3.0) 05/02/22 04:45 ABG Hemoglobin 9.3 gm/dl (14.0-18.0) L 05/02/22 04:45 ABG Carboxyhemoglobin 1.4 % (0.0-5.0) 05/02/22 04:45 ABG Methemoglobin 0.4 % (0.0-1.5) 05/02/22 04:45 Oxyhemoglobin 95.2 % (95.0-99.0) 05/02/22 04:45 FiO2 30 % 05/02/22 04:45 Sodium 147 mmol/L (137-145) H 05/02/22 04:59 Potassium 4.1 mmol/L (3.6-5.0) 05/02/22 04:59 Chloride 111.5 mmol/L (98-107) H 05/02/22 04:59 Carbon Dioxide 26 mmol/L (22-30) 05/02/22 04:59 Anion Gap 14 mmol/L 05/02/22 04:59 BUN 36 mg/dL (9-20) H 05/02/22 04:59 Creatinine 1.2 mg/dL (0.8-1.3) 05/02/22 04:59 Estimated GFR > 60 ml/min 05/02/22 04:59 BUN/Creatinine Ratio 30 % 05/02/22 04:59 Glucose 136 mg/dL (75-100) H 05/02/22 04:59 POC Glucose 120 mg/dL (70-105) H 05/02/22 04:47 Lactic Acid 1.90 mmol/L (0.7-2.0) 04/21/22 04:20 Calcium 8.0 mg/dL (8.4-10.2) L 05/02/22 04:59 Phosphorus 3.20 mg/dL (2.5-4.5) 05/02/22 04:59 Magnesium 2.10 mg/dL (1.7-2.3) 05/02/22 04:59 Total Bilirubin 0.40 mg/dL (0.1-1.2) 05/02/22 04:59 Direct Bilirubin 0.3 mg/dL (0-0.2) H 04/30/22 04:25 Indirect Bilirubin 0.1 mg/dL 04/30/22 04:25 AST 73 units/L (5-40) H 05/02/22 04:59 ALT 90 units/L (7-56) H 05/02/22 04:59 Alkaline Phosphatase 171 units/L (35-129) H 05/02/22 04:59 Total Creatine Kinase 61 units/L (55-170) 04/29/22 04:20 CK-MB (CK-2) 28.5 ng/mL (0.0-4.0) H 04/19/22 07:11 CK-MB (CK-2) Rel Index 0.8 (0-4) 04/19/22 07:11 Troponin T 2.980 ng/mL (0.00-0.029) H* 04/19/22 07:11 C-Reactive Protein 15.30 mg/dL (0.00-1.30) H 04/28/22 08:20 Total Protein 6.8 g/dL (6.3-8.2) 05/02/22 04:59 Albumin 2.3 g/dL (3.9-5) L 05/02/22 04:59 Albumin/Globulin Ratio 0.5 % 05/02/22 04:59 Triglycerides 214 mg/dL (2-149) H 05/01/22 04:00 Cholesterol 106 mg/dL (50-199) 04/17/22 19:56 LDL Cholesterol Direct 57 mg/dL (50-130) 04/17/22 19:56 HDL Cholesterol 40 mg/dL (40-59) 04/17/22 19:56 Cholesterol/HDL Ratio 2.65 % 04/17/22 19:56 Procalcitonin 2.90 ng/mL (<0.15) 04/28/22 Unknown Urine Color Straw (Yellow) 04/28/22 08:35 Urine Turbidity Clear (Clear) 04/28/22 08:35 Urine pH 6.0 (5.0-7.0) 04/28/22 08:35 Ur Specific [place] 1.000 (1.003-1.030) L 04/28/22 08:35 Urine Protein 300 mg/dl mg/dL (Negative) 04/28/22 08:35 Urine Glucose (UA) Negative mg/dL (Negative) 04/28/22 08:35 Urine Ketones Negative mg/dL (Negative) 04/28/22 08:35 Urine Blood 3+ (Negative) 04/28/22 08:35 Urine Nitrite Negative (Negative) 04/28/22 08:35 Ur Reducing Substances Not Reportable 04/28/22 08:35 Urine Bilirubin Negative (Negative) 04/28/22 08:35 Urine Ictotest Not Reportable 04/28/22 08:35 Urine Urobilinogen < 2.0 mg/dL (<2.0) 04/28/22 08:35 Ur Leukocyte Esterase Small (Negative) 04/28/22 08:35 Urine WBC (Auto) 21.0 /HPF (0.0-6.0) H 04/28/22 08:35 Urine RBC (Auto) 9.0 /HPF (0.0-6.0) 04/28/22 08:35 Urine Bacteria (Auto) 2+ /HPF (Negative) 04/19/22 02:08 Urine WBC Clumps 3+ /HPF 04/19/22 02:08 RBC Casts 34 /LPF 04/19/22 02:08 Urine Mucus Few /HPF 04/28/22 08:35 Urine Yeast (Budding) 3+ /HPF 04/19/22 02:08 Urine Eosinophils None seen (None Seen) 04/19/22 02:08 Urine Creatinine 90.9 mg/dL (0.1-20.0) H 04/19/22 02:08 Urine Sodium 54 mmol/L 04/19/22 02:08 Digoxin 0.5 ng/mL (0.9-2.0) L 05/01/22 12:16 Coronavirus (PCR) Positive (Negative) A 04/29/22 09:38 Influenza A (RT-PCR) Negative (Negative) 04/29/22 11:44 Influenza B (RT-PCR) Negative (Negative) 04/29/22 11:44 Blood Type A POSITIVE 04/21/22 04:37 Antibody Screen Negative 04/21/22 04:37 Microbiology: Microbiology 04/26/22 08:57 Peripheral/Venous Blood Culture - Final NO GROWTH AFTER 5 DAYS Penn/IV: Voiding Method Indwelling Catheter Active Medications - Current Medications Current Medications: Generic Name Dose Route Start Last Admin Trade Name Freq PRN Reason Stop Dose Admin Acetaminophen 650 mg 04/17/22 19:48 04/28/22 21:38 Acetaminophen 325 Mg Tab PO 650 mg Q6H PRN Administration Pain MILD(1-3)/Fever >100.5/CHE Albuterol 2.5 mg 04/17/22 19:48 Albuterol 2.5 Mg/3 Ml Nebu IH Q3HRT PRN Shortness Of Breath Ascorbic Acid 500 mg 04/30/22 22:00 05/02/22 09:02 Ascorbic Acid 500 Mg Tab PO 500 mg BID FLACO Administration Aspirin 81 mg 04/20/22 12:00 05/02/22 09:01 Aspirin 81 Mg Tab Chew FEEDTUBE 81 mg QDAY FLACO Administration Atorvastatin Calcium 20 mg 04/20/22 22:00 05/01/22 22:13 Atorvastatin 20 Mg Tab FEEDTUBE 20 mg QHS FLACO Administration Dexamethasone 8 mg 04/30/22 10:00 05/02/22 09:02 Dexamethasone 4 Mg/Ml Vial IV 05/09/22 10:01 8 mg DAILY FLACO Administration Dextrose 0 ml 04/17/22 23:46 Dextrose 50% In Water (25gm) 50 Ml Syringe IV Q30MIN PRN Hypoglycemia Protocol Digoxin 0.125 mg 04/30/22 17:00 05/01/22 17:23 Digoxin 0.125 Mg Tab FEEDTUBE 0.125 mg DAILY@1700 FLACO Administration Docusate Sodium 100 mg 04/27/22 11:00 05/02/22 09:01 Docusate Sodium 100 Mg/10 Ml Oral Liqd FEEDTUBE 100 mg BID FLACO Administration Doxazosin Mesylate 1 mg 04/30/22 22:00 05/01/22 22:11 Doxazosin 1 Mg Tab PO 1 mg QHS FLACO Administration Enoxaparin Sodium 120 mg 05/02/22 10:00 05/02/22 10:30 Enoxaparin 120 Mg/0.8 Ml Inj SUB-Q 120 mg Q12HR FLACO Administration Protocol Famotidine 20 mg 04/27/22 10:00 05/02/22 09:02 Famotidine 20 Mg Tab FEEDTUBE 20 mg BID FLACO Administration Fentanyl 50 mcg 04/17/22 20:22 04/30/22 22:41 Fentanyl 100 Mcg/2 Ml Inj IV 50 mcg Q10MIN PRN Administration ANALGESIA Hydrophilic Ointment 1 applic 04/18/22 06:02 04/26/22 20:29 Lip Therapy Vaseline TP 1 applic Q2HR PRN Administration Dry Lips Fentanyl Citrate 2,000 mcg in 100 mls @ 5.443 mls/hr 04/17/22 21:00 05/02/22 10:15 Fentanyl Drip Premix IV 0 mcg/kg/hr TITR FLACO 0 mls/hr Titration Protocol 1 MCG/KG/HR Propofol 1,000 mg in 100 mls @ 3.456 mls/hr 04/18/22 07:00 05/02/22 08:41 Diprivan 10 Mg/Ml IV 0 mcg/kg/min TITR FLACO 0 mls/hr Titration Protocol 5 MCG/KG/MIN Cefepime HCl 2 gm in 100 mls @ 200 mls/hr 04/28/22 08:00 05/02/22 08:43 Cefepime/Ns 2 Gm/100 Ml IV 200 mls/hr Q8H FLACO Administration Protocol Vancomycin HCl 1,750 mg/ 535 mls @ 333.333 mls/hr 04/28/22 10:00 05/02/22 10:06 Sodium Chloride IV 333.333 mls/hr Q24H FLACO Administration Dexmedetomidine HCl 400 mcg/ 104 mls @ 5.99 mls/hr 04/28/22 11:00 04/28/22 13:52 Sodium Chloride IV 0 mcg/kg/hr TITRATE FLACO 0 mls/hr Titration Protocol 0.2 MCG/KG/HR NORepinephrine/NS 8 MG-250 ML 8 mg in 250 mls @ 3.75 mls/hr 04/28/22 15:00 04/29/22 04:39 Norepinephrine/Ns 8 Mg-250 Ml (Double Conc) IV 4 mcg/min TITRATE FLACO 7.5 mls/hr Titration Protocol 2 MCG/MIN Remdesivir 100 mg/ Sodium 250 mls @ 500 mls/hr 05/01/22 14:00 05/01/22 14:11 Chloride IV 05/04/22 14:29 500 mls/hr Q24HR@1400 FLACO Administration Insulin Glargine 25 units 04/29/22 11:00 05/02/22 10:06 Insulin Glargine 100 Units/Ml SUB-Q 25 units BID FLACO Administration Insulin Human Lispro 0 unit 04/18/22 00:00 05/02/22 05:50 Insulin Lispro 100 Unit/Ml SUB-Q Not Given Q6HR [facility] Protocol Insulin Human Lispro 10 unit 04/29/22 12:00 05/02/22 05:50 Insulin Lispro 100 Unit/Ml SUB-Q Not Given Q6HR [facility] Metoprolol Succinate 25 mg 05/02/22 10:00 05/02/22 10:30 Metoprolol Succinate Xl 25 Mg Tab PO 25 mg QDAY FLACO Administration Multi-Ingred Cream/Lotion/Oil/Oint 1 applic 04/18/22 06:02 Mineral Oil/Petrolatum, White Ophth Oint 3.5 Gm OU Q4HR PRN Dry Eye(s) Oxycodone/Acetaminophen 1 tab 04/22/22 11:05 Oxycodone /Acetaminophen 5-325mg Tab FEEDTUBE Q6H PRN Pain, Moderate (4-6) Senna/Docusate Sodium 2 tab 04/28/22 10:00 05/02/22 09:02 Sennosides/Docusate Sodium 8.6/50 Mg Tab FEEDTUBE 2 tab BID FLACO Administration Sodium Chloride 10 ml 04/17/22 22:00 05/02/22 09:01 Sodium Chloride 0.9% 10 Ml Flush Syringe IV 10 ml BID FLACO Administration Sodium Chloride 10 ml 04/17/22 19:48 Sodium Chloride 0.9% 10 Ml Flush Syringe IV PRN PRN LINE FLUSH Sodium Chloride 50 ml 04/30/22 09:00 05/01/22 15:50 Sodium Chloride 0.9% 50 Ml Ivpb IV 05/04/22 14:01 50 ml Q24HR@1400 FLACO Administration Zinc Sulfate 220 mg 04/30/22 22:00 05/02/22 10:30 Zinc Sulfate 220 Mg Cap PO 220 mg BID FLACO Administration Nutrition/Malnutrition Assess - Dietary Evaluation Nutrition/Malnutrition Findings: Nutrition Notes Start: 04/18/22 08:52 Freq: Status: Active Protocol: Document 04/29/22 11:29 ROMELIA (Rec: 04/29/22 11:55 ROMELIA [id number]) Nutrition Notes Initial or Follow up Reassessment Current Diagnosis Acute Kidney Injury,Diabetes, Sepsis,Hypertension, Respiratory Failure Other Pertinent Diagnosis s/p PEA w/ROSC, HFrEF, Pneumonia, Transaminitis, Rabdomyolisis, .. Current Diet TF-Nepro w/CARBSTEADY @ 35 ml/ hr (from D 04/21). Labs/Tests 04/29: BUN 30, Crea 1.6, Glu 236, Ca 8.1. Pertinent Medications 04/29: Humalog 4U, Propofol @ 3.456 ml/hr (91 Kcal), mothers nutritionally unremarkable. Height 5 ft 9 in Weight 115.2 kg [place] Body Weight (kg) 72.72 BMI 37.5 Weight change and time frame No body weight change reported in 11 days. Weight Status Obese Subjective/Other Information RD consult for routine F/U on TF tolerance/continuation assessment. TF continues as prescribed, no further information available at the time. Pt continues on Mechanical Ventilation, O2 saturation @ 100%, according to Physical Assessment History notes. Pt remains incontinent, according to Physical Assessment History notes. Pt presents blisters on the groin and on hand, according to Physical Assessment History notes. Percent of energy/protein needs met: Prescribed TF-Nepro w/ CARBSTEADY @ 35 ml/hr provides for energy/protein needs (1, 500 Kcal/68 g) during LOS, 77% Kcal; 90% AA. Including 91 Kcal from Propofol: 81% Kcal; 90% AA. Burn Absent Trauma Absent GI Symptoms None Food Allergy No Skin Integrity/Comment Blisters on the groin and on hand. Current % PO Other Minimum of two criteria No Fluid Accumulation N/A Reduced Feed Weigher Strength N/A (non-severe) Protein-Calorie Malnutrition N\A #1 Nutrition Diagnosis Inadequate oral intake Diagnosis Progress(for reassessment Continues documentation) Is patient on ventilator? Yes Is Patient Ambulatory and/or Out of Bed No REE-([facility]-confined to bed) 2323.608 Kcal/Kg value to use for calculation 17 Approximate Energy Requirements Using 1958 kcal/Kg Calculation Used for Recommendations Kcal/kg Additional Notes Protein: 0.8-1.2 g/Kg AdjBW; 75-113 g/day. Fluids: 1 ml/Kcal, or as per MD. Nutrition Intervention Nutrition Support: Continue TF-Nepro w/CARBSTEADY @ 35 ml/hr. Flush: 220 ml water Q 4 hr, or as per MD. Kcal 1,500 Protein (gm) 68 Carbohydrates (gm) 134 Fat (gm) 80 Fluid (mL) 606 Fiber (gm) 11 % RDI: 77% Kcal; 90% AA. Goal #1 Provide at least 75% of energy /protein needs through Enteral Feeding during LOS. Follow-Up By: 05/06/22 Additional Comments Continue monitoring TF tolerance, ventilation status, vasopressors, and BM. <GABRIELE HUFF - Last Filed: 05/03/22 07:23> Assessment and Plan Assessment and plan: I saw and evaluated the patient. I agree with the findings and the plan of care as documented in the Nurse Practitioner's~note, with the following corrections and additions. Hospitalist Physical - Constitutional Vitals: Temp Pulse Resp BP Pulse Ox 98.2 F 79 12 105/67 98 05/03/22 07:09 05/03/22 06:30 05/03/22 06:30 05/03/22 06:30 05/03/22 06:30 HEART Score - HEART Score Troponin: Troponin T 2.980 ng/mL (0.00-0.029) H* 04/19/22 07:11 Results - Labs CBC & Chem 7: 05/03/22 04:46 05/03/22 04:46 Labs: Laboratory Last Values WBC 16.4 K/mm3 (4.5-11.0) H 05/03/22 04:46 RBC 3.08 M/mm3 (3.65-5.03) L 05/03/22 04:46 Hgb 8.8 gm/dl (11.8-15.2) L 05/03/22 04:46 Hct 27.7 % (35.5-45.6) L 05/03/22 04:46 MCV 90 fl (84-94) 05/03/22 04:46 MCH 29 pg (28-32) 05/03/22 04:46 MCHC 32 % (32-34) 05/03/22 04:46 RDW 15.0 % (13.2-15.2) 05/03/22 04:46 Plt Count 596 K/mm3 (140-440) H 05/03/22 04:46 Lymph % (Auto) 5.7 % (13.4-35.0) L 04/29/22 04:20 [place] % (Auto) 7.8 % (0.0-7.3) H 04/29/22 04:20 Eos % (Auto) 3.9 % (0.0-4.3) 04/29/22 04:20 Baso % (Auto) 0.6 % (0.0-1.8) 04/29/22 04:20 Lymph # (Auto) 1.1 K/mm3 (1.2-5.4) L 04/29/22 04:20 [place] # (Auto) 1.5 K/mm3 (0.0-0.8) H 04/29/22 04:20 Eos # (Auto) 0.8 K/mm3 (0.0-0.4) H 04/29/22 04:20 Baso # (Auto) 0.1 K/mm3 (0.0-0.1) 04/29/22 04:20 Add Manual Diff Complete 04/23/22 04:19 Total Counted 100 04/23/22 04:19 Seg Neutrophils % 82.0 % (40.0-70.0) H 04/29/22 04:20 Seg Neuts % (Manual) 74.0 % (40.0-70.0) H 04/23/22 04:19 Band Neutrophils % 2.0 % 04/23/22 04:19 Lymphocytes % (Manual) 10.0 % (13.4-35.0) L 04/23/22 04:19 Reactive Lymphs % (Man) 0 % 04/23/22 04:19 Monocytes % (Manual) 7.0 % (0.0-7.3) 04/23/22 04:19 Eosinophils % (Manual) 7.0 % (0.0-4.3) H 04/23/22 04:19 Basophils % (Manual) 0 % (0.0-1.8) 04/23/22 04:19 Metamyelocytes % 0 % 04/23/22 04:19 Myelocytes % 0 % 08/11/22 04:19 Promyelocytes % 0 % 04/23/22 04:19 Blast Cells % 0 % 04/23/22 04:19 Nucleated RBC % Not Reportable 04/23/22 04:19 Seg Neutrophils # 16.3 K/mm3 (1.8-7.7) H 04/29/22 04:20 Seg Neutrophils # Man 8.0 K/mm3 (1.8-7.7) H 04/23/22 04:19 Band Neutrophils # 0.2 K/mm3 04/23/22 04:19 Lymphocytes # (Manual) 1.1 K/mm3 (1.2-5.4) L 04/23/22 04:19 Abs React Lymphs (Man) 0.0 K/mm3 04/23/22 04:19 Monocytes # (Manual) 0.8 K/mm3 (0.0-0.8) 04/23/22 04:19 Eosinophils # (Manual) 0.8 K/mm3 (0.0-0.4) H 04/23/22 04:19 Basophils # (Manual) 0.0 K/mm3 (0.0-0.1) 04/23/22 04:19 Metamyelocytes # 0.0 K/mm3 04/23/22 04:19 Myelocytes # 0.0 K/mm3 04/23/22 04:19 Promyelocytes # 0.0 K/mm3 04/23/22 04:19 Blast Cells # 0.0 K/mm3 04/23/22 04:19 WBC Morphology Not Reportable 04/23/22 04:19 Hypersegmented Neuts Not Reportable 04/23/22 04:19 Hyposegmented Neuts Not Reportable 04/23/22 04:19 Hypogranular Neuts Not Reportable 04/23/22 04:19 Smudge Cells Not Reportable 04/23/22 04:19 Toxic Granulation Not Reportable 04/23/22 04:19 Toxic Vacuolation Not Reportable 04/23/22 04:19 Dohle Bodies Not Reportable 04/23/22 04:19 Pelger-Huet Anomaly Not Reportable 04/23/22 04:19 Regla Rods Not Reportable 04/23/22 04:19 Platelet Estimate Consistent w auto 04/23/22 04:19 Clumped Platelets Not Reportable 04/23/22 04:19 Plt Clumps, EDTA Not Reportable 04/23/22 04:19 Large Platelets Not Reportable 04/23/22 04:19 Giant Platelets Not Reportable 04/23/22 04:19 Platelet Satelliting Not Reportable 04/23/22 04:19 Plt Morphology Comment Not Reportable 04/23/22 04:19 RBC Morphology Not Reportable 04/23/22 04:19 Dimorphic RBCs Not Reportable 04/23/22 04:19 Polychromasia Not Reportable 04/23/22 04:19 Hypochromasia Not Reportable 04/23/22 04:19 Poikilocytosis Not Reportable 04/23/22 04:19 Anisocytosis Not Reportable 04/23/22 04:19 Microcytosis Not Reportable 04/23/22 04:19 Macrocytosis Not Reportable 04/23/22 04:19 Spherocytes Not Reportable 04/23/22 04:19 Pappenheimer Bodies Not Reportable 04/23/22 04:19 Sickle Cells Not Reportable 04/23/22 04:19 Target Cells Not Reportable 04/23/22 04:19 Tear Drop Cells Not Reportable 04/23/22 04:19 Ovalocytes Not Reportable 04/23/22 04:19 Helmet Cells Not Reportable 04/23/22 04:19 [place] Bodies Not Reportable 04/23/22 04:19 [place] Rings Not Reportable 04/23/22 04:19 [place] Cells Not Reportable 04/23/22 04:19 Bite Cells Not Reportable 04/23/22 04:19 Crenated Cell Not Reportable 04/23/22 04:19 Elliptocytes Not Reportable 04/23/22 04:19 Acanthocytes (Spur) Not Reportable 04/23/22 04:19 Rouleaux Not Reportable 04/23/22 04:19 Hemoglobin C Crystals Not Reportable 04/23/22 04:19 Schistocytes Not Reportable 04/23/22 04:19 Malaria parasites Not Reportable 04/23/22 04:19 [place] Bodies Not Reportable 04/23/22 04:19 Hem Pathologist Commnt No 04/23/22 04:19 PT 15.6 Sec. (12.2-14.9) H 04/18/22 Unknown INR 1.08 (0.87-1.13) 04/18/22 Unknown APTT 28.6 Sec. (24.2-36.6) 04/18/22 Unknown Activated Coag Time 179 (74-137) H 04/21/22 12:14 Heparin Anti-Xa Level 0.16 U.I./ml (0.3-0.7) L 04/21/22 04:00 ABG pH 7.442 pH Units (7.350-7.450) 05/02/22 04:45 ABG pCO2 37.8 mm Hg 05/02/22 04:45 ABG pO2 83.1 mm Hg (80.0-90.0) 05/02/22 04:45 ABG HCO3 25.2 mmol/L (20.0-26.0) 05/02/22 04:45 ABG O2 Saturation 97.0 % (95.0-99.0) 05/02/22 04:45 ABG O2 Content 12.6 (0.0-44) 05/02/22 04:45 ABG Base Excess 1.1 mmol/L (-2.0-3.0) 05/02/22 04:45 ABG Hemoglobin 9.3 gm/dl (14.0-18.0) L 05/02/22 04:45 ABG Carboxyhemoglobin 1.4 % (0.0-5.0) 05/02/22 04:45 ABG Methemoglobin 0.4 % (0.0-1.5) 05/02/22 04:45 Oxyhemoglobin 95.2 % (95.0-99.0) 05/02/22 04:45 FiO2 30 % 05/02/22 04:45 Sodium 142 mmol/L (137-145) 05/03/22 04:46 Potassium 3.6 mmol/L (3.6-5.0) 05/03/22 04:46 Chloride 108.3 mmol/L (98-107) H 05/03/22 04:46 Carbon Dioxide 25 mmol/L (22-30) 05/03/22 04:46 Anion Gap 12 mmol/L 05/03/22 04:46 BUN 34 mg/dL (9-20) H 05/03/22 04:46 Creatinine 1.2 mg/dL (0.8-1.3) 05/03/22 04:46 Estimated GFR > 60 ml/min 05/03/22 04:46 BUN/Creatinine Ratio 28 % 05/03/22 04:46 Glucose 130 mg/dL (75-100) H 05/03/22 04:46 POC Glucose 145 mg/dL (70-105) H 05/02/22 23:59 Lactic Acid 1.90 mmol/L (0.7-2.0) 04/21/22 04:20 Calcium 7.7 mg/dL (8.4-10.2) L 05/03/22 04:46 Phosphorus 3.20 mg/dL (2.5-4.5) 05/03/22 04:46 Magnesium 2.10 mg/dL (1.7-2.3) 05/03/22 04:46 Total Bilirubin 0.40 mg/dL (0.1-1.2) 05/03/22 04:46 Direct Bilirubin 0.3 mg/dL (0-0.2) H 04/30/22 04:25 Indirect Bilirubin 0.1 mg/dL 04/30/22 04:25 AST 98 units/L (5-40) H 05/03/22 04:46 ALT 111 units/L (7-56) H 05/03/22 04:46 Alkaline Phosphatase 147 units/L (35-129) H 05/03/22 04:46 Total Creatine Kinase 61 units/L (55-170) 04/29/22 04:20 CK-MB (CK-2) 28.5 ng/mL (0.0-4.0) H 04/19/22 07:11 CK-MB (CK-2) Rel Index 0.8 (0-4) 04/19/22 07:11 Troponin T 2.980 ng/mL (0.00-0.029) H* 04/19/22 07:11 C-Reactive Protein 15.30 mg/dL (0.00-1.30) H 04/28/22 08:20 Total Protein 6.0 g/dL (6.3-8.2) L 05/03/22 04:46 Albumin 1.9 g/dL (3.9-5) L 05/03/22 04:46 Albumin/Globulin Ratio 0.5 % 05/03/22 04:46 Triglycerides 214 mg/dL (2-149) H 05/01/22 04:00 Cholesterol 106 mg/dL (50-199) 04/17/22 19:56 LDL Cholesterol Direct 57 mg/dL (50-130) 04/17/22 19:56 HDL Cholesterol 40 mg/dL (40-59) 04/17/22 19:56 Cholesterol/HDL Ratio 2.65 % 04/17/22 19:56 Procalcitonin 2.90 ng/mL (<0.15) 04/28/22 Unknown Urine Color Straw (Yellow) 04/28/22 08:35 Urine Turbidity Clear (Clear) 04/28/22 08:35 Urine pH 6.0 (5.0-7.0) 04/28/22 08:35 Ur Specific [place] 1.000 (1.003-1.030) L 04/28/22 08:35 Urine Protein 300 mg/dl mg/dL (Negative) 04/28/22 08:35 Urine Glucose (UA) Negative mg/dL (Negative) 04/28/22 08:35 Urine Ketones Negative mg/dL (Negative) 04/28/22 08:35 Urine Blood 3+ (Negative) 04/28/22 08:35 Urine Nitrite Negative (Negative) 04/28/22 08:35 Ur Reducing Substances Not Reportable 04/28/22 08:35 Urine Bilirubin Negative (Negative) 04/28/22 08:35 Urine Ictotest Not Reportable 04/28/22 08:35 Urine Urobilinogen < 2.0 mg/dL (<2.0) 04/28/22 08:35 Ur Leukocyte Esterase Small (Negative) 04/28/22 08:35 Urine WBC (Auto) 21.0 /HPF (0.0-6.0) H 04/28/22 08:35 Urine RBC (Auto) 9.0 /HPF (0.0-6.0) 04/28/22 08:35 Urine Bacteria (Auto) 2+ /HPF (Negative) 04/19/22 02:08 Urine WBC Clumps 3+ /HPF 04/19/22 02:08 RBC Casts 34 /LPF 04/19/22 02:08 Urine Mucus Few /HPF 04/28/22 08:35 Urine Yeast (Budding) 3+ /HPF 04/19/22 02:08 Urine Eosinophils None seen (None Seen) 04/19/22 02:08 Urine Creatinine 90.9 mg/dL (0.1-20.0) H 04/19/22 02:08 Urine Sodium 54 mmol/L 04/19/22 02:08 Digoxin 0.7 ng/mL (0.9-2.0) L 05/03/22 04:46 Coronavirus (PCR) Positive (Negative) A 04/29/22 09:38 Influenza A (RT-PCR) Negative (Negative) 04/29/22 11:44 Influenza B (RT-PCR) Negative (Negative) 04/29/22 11:44 Blood Type A POSITIVE 04/21/22 04:37 Antibody Screen Negative 04/21/22 04:37 [place]/IV: Voiding Method Indwelling Catheter Active Medications - Current Medications Current Medications: Generic Name Dose Route Start Last Admin Trade Name Freq PRN Reason Stop Dose Admin Acetaminophen 650 mg 04/17/22 19:48 04/28/22 21:38 Acetaminophen 325 Mg Tab PO 650 mg Q6H PRN Administration Pain MILD(1-3)/Fever >100.5/CHE Albuterol 2.5 mg 04/17/22 19:48 Albuterol 2.5 Mg/3 Ml Nebu IH Q3HRT PRN Shortness Of Breath Ascorbic Acid 500 mg 04/30/22 22:00 05/02/22 22:41 Ascorbic Acid 500 Mg Tab PO 500 mg BID FLACO Administration Aspirin 81 mg 04/20/22 12:00 05/02/22 09:01 Aspirin 81 Mg Tab Chew FEEDTUBE 81 mg QDAY FLACO Administration Atorvastatin Calcium 20 mg 04/20/22 22:00 05/02/22 22:41 Atorvastatin 20 Mg Tab FEEDTUBE 20 mg QHS FLACO Administration Dexamethasone 8 mg 04/30/22 10:00 05/02/22 09:02 Dexamethasone 4 Mg/Ml Vial IV 05/09/22 10:01 8 mg DAILY FLACO Administration Dextrose 0 ml 04/17/22 23:46 Dextrose 50% In Water (25gm) 50 Ml Syringe IV Q30MIN PRN Hypoglycemia Protocol Digoxin 0.125 mg 04/30/22 17:00 05/02/22 17:39 Digoxin 0.125 Mg Tab FEEDTUBE 0.125 mg DAILY@1700 FLACO Administration Docusate Sodium 100 mg 04/27/22 11:00 05/02/22 22:38 Docusate Sodium 100 Mg/10 Ml Oral Liqd FEEDTUBE 100 mg BID FLACO Administration Doxazosin Mesylate 1 mg 04/30/22 22:00 05/02/22 22:40 Doxazosin 1 Mg Tab PO 1 mg QHS FLACO Administration Enoxaparin Sodium 120 mg 05/02/22 10:00 05/02/22 22:39 Enoxaparin 120 Mg/0.8 Ml Inj SUB-Q 120 mg Q12HR FLACO Administration Protocol Famotidine 20 mg 04/27/22 10:00 05/02/22 22:40 Famotidine 20 Mg Tab FEEDTUBE 20 mg BID FLACO Administration Fentanyl 50 mcg 04/17/22 20:22 04/30/22 22:41 Fentanyl 100 Mcg/2 Ml Inj IV 50 mcg Q10MIN PRN Administration ANALGESIA Hydrophilic Ointment 1 applic 04/18/22 06:02 04/26/22 20:29 Lip Therapy Vaseline TP 1 applic Q2HR PRN Administration Dry Lips Fentanyl Citrate 2,000 mcg in 100 mls @ 5.443 mls/hr 04/17/22 21:00 05/02/22 10:15 Fentanyl Drip Premix IV 0 mcg/kg/hr TITR FLACO 0 mls/hr Titration Protocol 1 MCG/KG/HR Propofol 1,000 mg in 100 mls @ 3.456 mls/hr 04/18/22 07:00 05/02/22 18:05 Diprivan 10 Mg/Ml IV 0 mcg/kg/min TITR FLACO 0 mls/hr Titration Protocol 5 MCG/KG/MIN Cefepime HCl 2 gm in 100 mls @ 200 mls/hr 04/28/22 08:00 05/03/22 00:12 Cefepime/Ns 2 Gm/100 Ml IV 200 mls/hr Q8H FLACO Administration Protocol Vancomycin HCl 1,750 mg/ 535 mls @ 333.333 mls/hr 04/28/22 10:00 05/02/22 10:06 Sodium Chloride IV 333.333 mls/hr Q24H FLACO Administration Dexmedetomidine HCl 400 mcg/ 104 mls @ 5.99 mls/hr 04/28/22 11:00 04/28/22 13:52 Sodium Chloride IV 0 mcg/kg/hr TITRATE FLACO 0 mls/hr Titration Protocol 0.2 MCG/KG/HR NORepinephrine/NS 8 MG-250 ML 8 mg in 250 mls @ 3.75 mls/hr 04/28/22 15:00 04/29/22 04:39 Norepinephrine/Ns 8 Mg-250 Ml (Double Conc) IV 4 mcg/min TITRATE FLACO 7.5 mls/hr Titration Protocol 2 MCG/MIN Remdesivir 100 mg/ Sodium 250 mls @ 500 mls/hr 05/01/22 14:00 05/02/22 15:11 Chloride IV 05/04/22 14:29 500 mls/hr Q24HR@1400 FLACO Administration Insulin Glargine 25 units 04/29/22 11:00 05/02/22 22:41 Insulin Glargine 100 Units/Ml SUB-Q Not Given BID FLACO Insulin Human Lispro 0 unit 04/18/22 00:00 05/03/22 00:16 Insulin Lispro 100 Unit/Ml SUB-Q Not Given Q6HR [facility] Protocol Insulin Human Lispro 10 unit 04/29/22 12:00 05/03/22 00:17 Insulin Lispro 100 Unit/Ml SUB-Q Not Given Q6HR [facility] Metoprolol Succinate 25 mg 05/02/22 10:00 05/02/22 10:30 Metoprolol Succinate Xl 25 Mg Tab PO 25 mg QDAY FLACO Administration Multi-Ingred Cream/Lotion/Oil/Oint 1 applic 04/18/22 06:02 Mineral Oil/Petrolatum, White Ophth Oint 3.5 Gm OU Q4HR PRN Dry Eye(s) Oxycodone/Acetaminophen 1 tab 04/22/22 11:05 Oxycodone /Acetaminophen 5-325mg Tab FEEDTUBE Q6H PRN Pain, Moderate (4-6) Senna/Docusate Sodium 2 tab 04/28/22 10:00 05/02/22 22:39 Sennosides/Docusate Sodium 8.6/50 Mg Tab FEEDTUBE 2 tab BID FLACO Administration Sodium Chloride 10 ml 04/17/22 22:00 05/02/22 09:01 Sodium Chloride 0.9% 10 Ml Flush Syringe IV 10 ml BID FLACO Administration Sodium Chloride 10 ml 04/17/22 19:48 Sodium Chloride 0.9% 10 Ml Flush Syringe IV PRN PRN LINE FLUSH Sodium Chloride 50 ml 04/30/22 09:00 05/02/22 15:11 Sodium Chloride 0.9% 50 Ml Ivpb IV 05/04/22 14:01 50 ml Q24HR@1400 FLACO Administration Zinc Sulfate 220 mg 04/30/22 22:00 05/02/22 22:40 Zinc Sulfate 220 Mg Cap PO 220 mg BID FLACO Administration Nutrition/Malnutrition Assess - Dietary Evaluation Nutrition/Malnutrition Findings: Nutrition Notes Start: 04/18/22 08:52 Freq: Status: Active Protocol: Document 04/29/22 11:29 ROMELIA (Rec: 04/29/22 11:55 ROMELIA [id number]) Nutrition Notes Initial or Follow up Reassessment Current Diagnosis Acute Kidney Injury,Diabetes, Sepsis,Hypertension, Respiratory Failure Other Pertinent Diagnosis s/p PEA w/ROSC, HFrEF, Pneumonia, Transaminitis, Rabdomyolisis, .. Current Diet TF-Nepro w/CARBSTEADY @ 35 ml/ hr (from D 04/21). Labs/Tests 04/29: BUN 30, Crea 1.6, Glu 236, Ca 8.1. Pertinent Medications 04/29: Humalog 4U, Propofol @ 3.456 ml/hr (91 Kcal), mothers nutritionally unremarkable. Height 5 ft 9 in Weight 115.2 kg [place] Body Weight (kg) 72.72 BMI 37.5 Weight change and time frame No body weight change reported in 11 days. Weight Status Obese Subjective/Other Information RD consult for routine F/U on TF tolerance/continuation assessment. TF continues as prescribed, no further information available at the time. Pt continues on Mechanical Ventilation, O2 saturation @ 100%, according to Physical Assessment History notes. Pt remains incontinent, according to Physical Assessment History notes. Pt presents blisters on the groin and on hand, according to Physical Assessment History notes. Percent of energy/protein needs met: Prescribed TF-Nepro w/ CARBSTEADY @ 35 ml/hr provides for energy/protein needs (1, 500 Kcal/68 g) during LOS, 77% Kcal; 90% AA. Including 91 Kcal from Propofol: 81% Kcal; 90% AA. Burn Absent Trauma Absent GI Symptoms None Food Allergy No Skin Integrity/Comment Blisters on the groin and on hand. Current % PO Other Minimum of two criteria No Fluid Accumulation N/A Reduced Feed Weigher Strength N/A (non-severe) Protein-Calorie Malnutrition N\A #1 Nutrition Diagnosis Inadequate oral intake Diagnosis Progress(for reassessment Continues documentation) Is patient on ventilator? Yes Is Patient Ambulatory and/or Out of Bed No REE-([facility]-confined to bed) 2323.608 Kcal/Kg value to use for calculation 17 Approximate Energy Requirements Using 1958 kcal/Kg Calculation Used for Recommendations Kcal/kg Additional Notes Protein: 0.8-1.2 g/Kg AdjBW; 75-113 g/day. Fluids: 1 ml/Kcal, or as per MD. Nutrition Intervention Nutrition Support: Continue TF-Nepro w/CARBSTEADY @ 35 ml/hr. Flush: 220 ml water Q 4 hr, or as per MD. Kcal 1,500 Protein (gm) 68 Carbohydrates (gm) 134 Fat (gm) 80 Fluid (mL) 606 Fiber (gm) 11 % RDI: 77% Kcal; 90% AA. Goal #1 Provide at least 75% of energy /protein needs through Enteral Feeding during LOS. Follow-Up By: 05/06/22 Additional Comments Continue monitoring TF tolerance, ventilation status, vasopressors, and BM.
--- NOTE | 2022-05-02 12:48 | Progress Note ---
Assessment and Plan 1. Acute kidney injury: Vasomotor VINCENT in the setting of shock. IV contrast on 04/17. Renal US negative. Monitor renal function. Creatinine level is better. Avoid nephrotoxic agents. Meds dosage based on GFR. 2. FEN: Hypernatremia, monitor. Anion-gap metabolic acidosis, improved, monitor. Replete lytes as needed. Monitor lytes and volume status. 3. S/p V.fib Cardiac arrest, POA: Followed by Cards. Monitor. 4. Shock: Currently off pressors. Monitor. 5. A.fib: On Digoxin. Followed by Cards. Monitor. 6. Acute Hypoxemic Respiratory Failure: Bilateral Pneumonia- Probable Aspiration. CTA negative for PE, reveals bilateral airspace disease, greater in the Upper lobes. Intubated in the field during code on 04/17. Self extubated and Re-intubated 04/28. S/p extubated. Monitor. 7. Elevated ALT & AST: Monitor. 8. Acute metabolic encephalopathy, POA: Improving. Monitor. 9. Rhabdomyolysis: Improved. Subjective: Patient was seen and examined at the bedside. Examination: General appearance: well-developed, appears stated age, obese, on NC O2 HEENT: atraumatic, no icterus, pupils equal Neck: trachea midline Respiratory: ctab Heart: S1S2, no murmur Abdomen: soft, bowel sounds heard, NT Integumentary: no obvious rash Neurologic: alert, conversing, moving extremities Ext: trace edema Subjective Date of service: 05/02/22 Principal diagnosis: AHRF; AMS; Pneumonia; Shock; DM II; Severe Metabolic Acidosis Objective - Vital Signs Vital signs: Vital Signs - 12hr 05/02/22 05/02/22 05/02/22 01:00 01:16 01:30 Temperature Pulse Rate 62 64 106 H Pulse Rate [ From Monitor] Respiratory 18 18 19 Rate Blood Pressure 134/84 134/78 134/78 O2 Sat by Pulse 96 97 97 Oximetry 05/02/22 05/02/22 05/02/22 01:46 02:00 02:16 Temperature Pulse Rate 76 69 69 Pulse Rate [ From Monitor] Respiratory 15 18 22 Rate Blood Pressure 112/64 118/67 146/71 O2 Sat by Pulse 100 99 99 Oximetry 05/02/22 05/02/22 05/02/22 02:30 02:46 03:00 Temperature Pulse Rate 67 71 69 Pulse Rate [ From Monitor] Respiratory 18 21 16 Rate Blood Pressure 146/71 135/73 135/73 O2 Sat by Pulse 99 98 99 Oximetry 05/02/22 05/02/22 05/02/22 03:06 03:16 03:30 Temperature 98.8 F Pulse Rate 63 69 Pulse Rate [ From Monitor] Respiratory 13 17 Rate Blood Pressure 123/74 123/74 O2 Sat by Pulse 99 99 Oximetry 05/02/22 05/02/22 05/02/22 03:46 04:00 04:16 Temperature Pulse Rate 61 60 57 L Pulse Rate [ 64 From Monitor] Respiratory 17 17 19 Rate Blood Pressure 130/69 130/69 131/69 O2 Sat by Pulse 97 100 98 Oximetry 05/02/22 05/02/22 05/02/22 04:30 04:46 05:00 Temperature Pulse Rate 66 71 66 Pulse Rate [ From Monitor] Respiratory 15 19 15 Rate Blood Pressure 141/60 141/60 141/60 O2 Sat by Pulse 100 99 98 Oximetry 05/02/22 05/02/22 05/02/22 05:16 05:30 05:46 Temperature Pulse Rate 77 60 63 Pulse Rate [ From Monitor] Respiratory 22 19 19 Rate Blood Pressure 141/60 141/60 109/74 O2 Sat by Pulse 98 98 98 Oximetry 05/02/22 05/02/22 05/02/22 06:00 06:16 06:30 Temperature Pulse Rate 70 63 66 Pulse Rate [ From Monitor] Respiratory 17 14 14 Rate Blood Pressure 109/74 127/64 127/64 O2 Sat by Pulse 100 100 100 Oximetry 05/02/22 05/02/22 05/02/22 06:46 07:00 07:16 Temperature Pulse Rate 72 61 60 Pulse Rate [ From Monitor] Respiratory 18 14 19 Rate Blood Pressure 117/67 117/67 106/59 O2 Sat by Pulse 99 99 99 Oximetry 05/02/22 05/02/22 05/02/22 07:30 07:46 08:00 Temperature 98.9 F Pulse Rate 60 71 78 Pulse Rate [ 64 From Monitor] Respiratory 15 17 20 Rate Blood Pressure 112/67 112/67 112/67 O2 Sat by Pulse 100 100 98 Oximetry 05/02/22 05/02/22 05/02/22 08:16 08:30 08:46 Temperature Pulse Rate 66 59 L 78 Pulse Rate [ From Monitor] Respiratory 20 17 13 Rate Blood Pressure 112/68 128/58 128/58 O2 Sat by Pulse 99 99 99 Oximetry 05/02/22 05/02/22 05/02/22 09:00 09:16 09:30 Temperature Pulse Rate 67 74 67 Pulse Rate [ From Monitor] Respiratory 17 12 15 Rate Blood Pressure 128/58 129/70 129/70 O2 Sat by Pulse 98 99 97 Oximetry 05/02/22 05/02/22 05/02/22 09:39 09:46 10:00 Temperature Pulse Rate 70 76 Pulse Rate [ From Monitor] Respiratory 13 14 13 Rate Blood Pressure 140/73 140/73 O2 Sat by Pulse 99 98 99 Oximetry 05/02/22 05/02/22 05/02/22 10:16 10:30 10:46 Temperature Pulse Rate 77 73 73 Pulse Rate [ From Monitor] Respiratory 10 L 14 15 Rate Blood Pressure 140/81 140/81 143/81 O2 Sat by Pulse 97 97 98 Oximetry 05/02/22 05/02/22 05/02/22 11:00 11:16 11:30 Temperature Pulse Rate 85 95 H 81 Pulse Rate [ From Monitor] Respiratory 14 12 11 L Rate Blood Pressure 143/81 149/86 149/86 O2 Sat by Pulse 99 98 98 Oximetry 05/02/22 05/02/22 05/02/22 11:46 11:47 12:00 Temperature Pulse Rate 76 83 Pulse Rate [ From Monitor] Respiratory 13 17 Rate Blood Pressure 130/68 130/68 O2 Sat by Pulse 98 99 99 Oximetry 05/02/22 05/02/22 12:16 12:30 Temperature Pulse Rate 68 84 Pulse Rate [ From Monitor] Respiratory 16 15 Rate Blood Pressure 138/75 138/75 O2 Sat by Pulse 98 97 Oximetry - Lab 05/02/22 04:59 05/02/22 04:59 Most recent lab results ABG pH 7.442 pH Units (7.350-7.450) 05/02/22 04:45 ABG pCO2 37.8 mm Hg 05/02/22 04:45 ABG pO2 83.1 mm Hg (80.0-90.0) 05/02/22 04:45 ABG HCO3 25.2 mmol/L (20.0-26.0) 05/02/22 04:45 ABG O2 Saturation 97.0 % (95.0-99.0) 05/02/22 04:45 Calcium 8.0 mg/dL (8.4-10.2) L 05/02/22 04:59 Phosphorus 3.20 mg/dL (2.5-4.5) 05/02/22 04:59 Magnesium 2.10 mg/dL (1.7-2.3) 05/02/22 04:59 Urine Creatinine 90.9 mg/dL (0.1-20.0) H 04/19/22 02:08 Urine Sodium 54 mmol/L 04/19/22 02:08 Medications & Allergies - Medications Allergies/Adverse Reactions: Allergies lisinopril Allergy (Verified 04/27/22 06:02) Angioedema Home Medications: Home Medications Medication Instructions Recorded Confirmed Last Taken Type AtorvaSTATin 40 mg PO QHS 04/22/22 04/22/22 Unknown History Humulin N 22 units SQ QHS 04/22/22 04/22/22 Unknown History amLODIPine 10 mg PO QAM 04/22/22 04/22/22 Unknown History glipiZIDE 20 mg PO BID 04/22/22 04/22/22 Unknown History metFORMIN 850 mg PO TID 04/22/22 04/22/22 Unknown History Active Medications: Generic Name Dose Route Start Last Admin Trade Name Freq PRN Reason Stop Dose Admin Acetaminophen 650 mg 04/17/22 19:48 04/28/22 21:38 Acetaminophen 325 Mg Tab PO 650 mg Q6H PRN Administration Pain MILD(1-3)/Fever >100.5/CHE Albuterol 2.5 mg 04/17/22 19:48 Albuterol 2.5 Mg/3 Ml Nebu IH Q3HRT PRN Shortness Of Breath Ascorbic Acid 500 mg 04/30/22 22:00 05/02/22 09:02 Ascorbic Acid 500 Mg Tab PO 500 mg BID FLACO Administration Aspirin 81 mg 04/20/22 12:00 05/02/22 09:01 Aspirin 81 Mg Tab Chew FEEDTUBE 81 mg QDAY FLACO Administration Atorvastatin Calcium 20 mg 04/20/22 22:00 05/01/22 22:13 Atorvastatin 20 Mg Tab FEEDTUBE 20 mg QHS FLACO Administration Dexamethasone 8 mg 04/30/22 10:00 05/02/22 09:02 Dexamethasone 4 Mg/Ml Vial IV 05/09/22 10:01 8 mg DAILY FLACO Administration Dextrose 0 ml 04/17/22 23:46 Dextrose 50% In Water (25gm) 50 Ml Syringe IV Q30MIN PRN Hypoglycemia Protocol Digoxin 0.125 mg 04/30/22 17:00 05/01/22 17:23 Digoxin 0.125 Mg Tab FEEDTUBE 0.125 mg DAILY@1700 FLACO Administration Docusate Sodium 100 mg 04/27/22 11:00 05/02/22 09:01 Docusate Sodium 100 Mg/10 Ml Oral Liqd FEEDTUBE 100 mg BID FLACO Administration Doxazosin Mesylate 1 mg 04/30/22 22:00 05/01/22 22:11 Doxazosin 1 Mg Tab PO 1 mg QHS FLACO Administration Enoxaparin Sodium 120 mg 05/02/22 10:00 05/02/22 10:30 Enoxaparin 120 Mg/0.8 Ml Inj SUB-Q 120 mg Q12HR FLACO Administration Protocol Famotidine 20 mg 04/27/22 10:00 05/02/22 09:02 Famotidine 20 Mg Tab FEEDTUBE 20 mg BID FLACO Administration Fentanyl 50 mcg 04/17/22 20:22 04/30/22 22:41 Fentanyl 100 Mcg/2 Ml Inj IV 50 mcg Q10MIN PRN Administration ANALGESIA Hydrophilic Ointment 1 applic 04/18/22 06:02 04/26/22 20:29 Lip Therapy Vaseline TP 1 applic Q2HR PRN Administration Dry Lips Fentanyl Citrate 2,000 mcg in 100 mls @ 5.443 mls/hr 04/17/22 21:00 05/02/22 10:15 Fentanyl Drip Premix IV 0 mcg/kg/hr TITR FLACO 0 mls/hr Titration Protocol 1 MCG/KG/HR Propofol 1,000 mg in 100 mls @ 3.456 mls/hr 04/18/22 07:00 05/02/22 08:41 Diprivan 10 Mg/Ml IV 0 mcg/kg/min TITR FLACO 0 mls/hr Titration Protocol 5 MCG/KG/MIN Cefepime HCl 2 gm in 100 mls @ 200 mls/hr 04/28/22 08:00 05/02/22 08:43 Cefepime/Ns 2 Gm/100 Ml IV 200 mls/hr Q8H FLACO Administration Protocol Vancomycin HCl 1,750 mg/ 535 mls @ 333.333 mls/hr 04/28/22 10:00 05/02/22 10:06 Sodium Chloride IV 333.333 mls/hr Q24H FLACO Administration Dexmedetomidine HCl 400 mcg/ 104 mls @ 5.99 mls/hr 04/28/22 11:00 04/28/22 13:52 Sodium Chloride IV 0 mcg/kg/hr TITRATE FLACO 0 mls/hr Titration Protocol 0.2 MCG/KG/HR NORepinephrine/NS 8 MG-250 ML 8 mg in 250 mls @ 3.75 mls/hr 04/28/22 15:00 04/29/22 04:39 Norepinephrine/Ns 8 Mg-250 Ml (Double Conc) IV 4 mcg/min TITRATE FLACO 7.5 mls/hr Titration Protocol 2 MCG/MIN Remdesivir 100 mg/ Sodium 250 mls @ 500 mls/hr 05/01/22 14:00 05/01/22 14:11 Chloride IV 05/04/22 14:29 500 mls/hr Q24HR@1400 FLACO Administration Insulin Glargine 25 units 04/29/22 11:00 05/02/22 10:06 Insulin Glargine 100 Units/Ml SUB-Q 25 units BID FLACO Administration Insulin Human Lispro 0 unit 04/18/22 00:00 05/02/22 12:24 Insulin Lispro 100 Unit/Ml SUB-Q 4 unit Q6HR FLACO Administration Protocol Insulin Human Lispro 10 unit 04/29/22 12:00 05/02/22 12:24 Insulin Lispro 100 Unit/Ml SUB-Q 10 unit Q6HR FLACO Administration Metoprolol Succinate 25 mg 05/02/22 10:00 05/02/22 10:30 Metoprolol Succinate Xl 25 Mg Tab PO 25 mg QDAY FLACO Administration Multi-Ingred Cream/Lotion/Oil/Oint 1 applic 04/18/22 06:02 Mineral Oil/Petrolatum, White Ophth Oint 3.5 Gm OU Q4HR PRN Dry Eye(s) Oxycodone/Acetaminophen 1 tab 04/22/22 11:05 Oxycodone /Acetaminophen 5-325mg Tab FEEDTUBE Q6H PRN Pain, Moderate (4-6) Senna/Docusate Sodium 2 tab 04/28/22 10:00 05/02/22 09:02 Sennosides/Docusate Sodium 8.6/50 Mg Tab FEEDTUBE 2 tab BID FLACO Administration Sodium Chloride 10 ml 04/17/22 22:00 05/02/22 09:01 Sodium Chloride 0.9% 10 Ml Flush Syringe IV 10 ml BID FLACO Administration Sodium Chloride 10 ml 04/17/22 19:48 Sodium Chloride 0.9% 10 Ml Flush Syringe IV PRN PRN LINE FLUSH Sodium Chloride 50 ml 04/30/22 09:00 05/01/22 15:50 Sodium Chloride 0.9% 50 Ml Ivpb IV 05/04/22 14:01 50 ml Q24HR@1400 FLACO Administration Zinc Sulfate 220 mg 04/30/22 22:00 05/02/22 10:30 Zinc Sulfate 220 Mg Cap PO 220 mg BID FLACO Administration
[2022-05-02] MEDS: REMDESIVIR 100 MG in SODIUM CHLORIDE 0.9% 250ML 250 ML IV SCH (15:11)
[2022-05-02] MEDS: SODIUM CHLORIDE 0.9% 50 ML IVPB IV SCH (15:11)
[2022-05-02] MEDS: DIGOXIN 0.125 MG TAB FEEDTUBE SCH (17:39)
[2022-05-02] MEDS: DOXAZOSIN 1 MG TAB PO SCH (22:40)
[2022-05-03] MEDS: CEFEPIME/NS 2 GM/100 ML 2 GM/100 ML BAG IV SCH ×3 (00:12→16:45)
[2022-05-03] MEDS: INSULIN LISPRO 100 UNIT/ML SUB-Q SCH ×8 (00:16→17:56)
[2022-05-03 05:16] LABS: Hematocrit 27.7 % (35.5-45.6); Hemoglobin 8.8 gm/dl (11.8-15.2); Mean Corpuscular HGB Conc 32 % (32-34); Mean Corpuscular Volume 90 fl (84-94); Platelet Count 596 K/mm3 (140-440); Red Blood Count 3.08 M/mm3 (3.65-5.03)
[2022-05-03 06:06] LABS: Alanine Aminotransferase 111 units/L (7-56); Albumin 1.9 g/dL (3.9-5); BUN/Creatinine Ratio 28; Blood Urea Nitrogen 34 mg/dL (9-20); Calcium 7.7 mg/dL (8.4-10.2); Hemolysis Index 1
[2022-05-03] MEDS: VANCOMYCIN 1,750 MG in SODIUM CHLORIDE 0.9% 500 ML 500 ML IV SCH (09:37)
[2022-05-03] MEDS: ASPIRIN 81 MG TAB CHEW FEEDTUBE SCH (09:37)
[2022-05-03] MEDS: DOCUSATE SODIUM 100 MG/10 ML ORAL LIQD FEEDTUBE SCH ×2 (09:38→21:01)
[2022-05-03] MEDS: ENOXAPARIN 120 MG/0.8 ML INJ SUB-Q SCH ×2 (09:38→21:01)
[2022-05-03] MEDS: dexAMETHasone 4 MG/ML VIAL IV SCH (09:38)
[2022-05-03] MEDS: METOPROLOL SUCCINATE XL 25 MG TAB PO SCH (09:39)
--- NOTE | 2022-05-03 09:39 | Progress Note ---
Assessment and Plan 1. Acute kidney injury: Vasomotor VINCENT in the setting of shock. IV contrast on 04/17. Renal US negative. Monitor renal function. Creatinine level is better. Avoid nephrotoxic agents. Meds dosage based on GFR. 2. FEN: Hypernatremia, monitor. Anion-gap metabolic acidosis, improved, monitor. Replete lytes as needed. Monitor lytes and volume status. 3. S/p V.fib Cardiac arrest, POA: Followed by Cards. Monitor. 4. Shock: Currently off pressors. Monitor. 5. A.fib: On Digoxin. Followed by Cards. Monitor. 6. Acute Hypoxemic Respiratory Failure: Bilateral Pneumonia- Probable Aspiration. CTA negative for PE, reveals bilateral airspace disease, greater in the Upper lobes. Intubated in the field during code on 04/17. Self extubated and Re-intubated 04/28. S/p extubated. Monitor. 7. Elevated ALT & AST: Monitor. 8. Acute metabolic encephalopathy, POA: Improving. Monitor. 9. Rhabdomyolysis: Improved. Subjective: Patient was seen and examined at the bedside. Doing ok. Examination: General appearance: well-developed, appears stated age, obese, NG tube HEENT: atraumatic, no icterus, pupils equal Neck: trachea midline Respiratory: ctab Heart: S1S2, no murmur Abdomen: soft, bowel sounds heard, NT Integumentary: no obvious rash Neurologic: alert, conversing, moving extremities Ext: trace edema Subjective Date of service: 05/03/22 Principal diagnosis: AHRF; AMS; Pneumonia; Shock; DM II; Severe Metabolic Acidosis Objective - Vital Signs Vital signs: Vital Signs - 12hr 05/02/22 05/03/22 05/03/22 22:40 00:00 00:09 Temperature 97.8 F Pulse Rate 81 71 71 Pulse Rate [ 71 From Monitor] Respiratory 20 15 Rate Blood Pressure 141/72 131/74 O2 Sat by Pulse 98 98 Oximetry 05/03/22 05/03/22 05/03/22 01:49 02:00 02:16 Temperature Pulse Rate 65 73 64 Pulse Rate [ From Monitor] Respiratory 24 20 23 Rate Blood Pressure 111/64 111/64 111/64 O2 Sat by Pulse 99 99 99 Oximetry 05/03/22 05/03/22 05/03/22 02:30 02:46 03:00 Temperature Pulse Rate 63 66 71 Pulse Rate [ From Monitor] Respiratory 22 Rate Blood Pressure 111/64 108/59 108/59 O2 Sat by Pulse 98 99 99 Oximetry 05/03/22 05/03/22 05/03/22 03:16 03:30 03:46 Temperature Pulse Rate 67 63 63 Pulse Rate [ From Monitor] Respiratory 23 22 22 Rate Blood Pressure 118/59 118/59 118/59 O2 Sat by Pulse 99 99 100 Oximetry 05/03/22 05/03/22 05/03/22 04:00 04:16 04:30 Temperature Pulse Rate 72 66 65 Pulse Rate [ 75 From Monitor] Respiratory 23 Rate Blood Pressure 118/59 118/59 118/59 O2 Sat by Pulse 99 98 98 Oximetry 05/03/22 05/03/22 05/03/22 04:46 05:00 05:16 Temperature Pulse Rate 64 74 68 Pulse Rate [ From Monitor] Respiratory 21 14 18 Rate Blood Pressure 102/58 102/58 102/58 O2 Sat by Pulse 100 99 99 Oximetry 05/03/22 05/03/22 05/03/22 05:30 05:46 06:00 Temperature Pulse Rate 69 76 82 Pulse Rate [ From Monitor] Respiratory 14 17 17 Rate Blood Pressure 102/58 105/67 102/58 O2 Sat by Pulse 99 98 98 Oximetry 05/03/22 05/03/22 05/03/22 06:16 06:30 06:46 Temperature Pulse Rate 77 79 75 Pulse Rate [ From Monitor] Respiratory 22 12 12 Rate Blood Pressure 105/67 105/67 105/67 O2 Sat by Pulse 97 98 96 Oximetry 05/03/22 05/03/22 05/03/22 07:00 07:09 07:16 Temperature 98.2 F Pulse Rate 75 73 Pulse Rate [ From Monitor] Respiratory 17 22 Rate Blood Pressure 105/67 113/65 O2 Sat by Pulse 96 97 Oximetry 05/03/22 05/03/22 05/03/22 07:31 07:45 08:00 Temperature Pulse Rate 78 82 77 Pulse Rate [ 87 From Monitor] Respiratory 15 13 18 Rate Blood Pressure 113/65 O2 Sat by Pulse 99 98 98 Oximetry 05/03/22 08:01 Temperature Pulse Rate 80 Pulse Rate [ From Monitor] Respiratory 19 Rate Blood Pressure 127/75 O2 Sat by Pulse 98 Oximetry - Lab 05/03/22 04:46 05/04/22 03:48 Most recent lab results ABG pH 7.442 pH Units (7.350-7.450) 05/02/22 04:45 ABG pCO2 37.8 mm Hg 05/02/22 04:45 ABG pO2 83.1 mm Hg (80.0-90.0) 05/02/22 04:45 ABG HCO3 25.2 mmol/L (20.0-26.0) 05/02/22 04:45 ABG O2 Saturation 97.0 % (95.0-99.0) 05/02/22 04:45 Calcium 7.7 mg/dL (8.4-10.2) L 05/03/22 04:46 Phosphorus 3.20 mg/dL (2.5-4.5) 05/03/22 04:46 Magnesium 2.10 mg/dL (1.7-2.3) 05/03/22 04:46 Urine Creatinine 90.9 mg/dL (0.1-20.0) H 04/19/22 02:08 Urine Sodium 54 mmol/L 04/19/22 02:08 Medications & Allergies - Medications Allergies/Adverse Reactions: Allergies lisinopril Allergy (Verified 04/27/22 06:02) Angioedema Home Medications: Home Medications Medication Instructions Recorded Confirmed Last Taken Type AtorvaSTATin 40 mg PO QHS 04/22/22 04/22/22 Unknown History Humulin N 22 units SQ QHS 04/22/22 04/22/22 Unknown History amLODIPine 10 mg PO QAM 04/22/22 04/22/22 Unknown History glipiZIDE 20 mg PO BID 04/22/22 04/22/22 Unknown History metFORMIN 850 mg PO TID 04/22/22 04/22/22 Unknown History Active Medications: Generic Name Dose Route Start Last Admin Trade Name Freq PRN Reason Stop Dose Admin Acetaminophen 650 mg 04/17/22 19:48 04/28/22 21:38 Acetaminophen 325 Mg Tab PO 650 mg Q6H PRN Administration Pain MILD(1-3)/Fever >100.5/CHE Albuterol 2.5 mg 04/17/22 19:48 Albuterol 2.5 Mg/3 Ml Nebu IH Q3HRT PRN Shortness Of Breath Ascorbic Acid 500 mg 04/30/22 22:00 05/02/22 22:41 Ascorbic Acid 500 Mg Tab PO 500 mg BID FLACO Administration Aspirin 81 mg 04/20/22 12:00 05/02/22 09:01 Aspirin 81 Mg Tab Chew FEEDTUBE 81 mg QDAY FLACO Administration Atorvastatin Calcium 20 mg 04/20/22 22:00 05/02/22 22:41 Atorvastatin 20 Mg Tab FEEDTUBE 20 mg QHS FLACO Administration Dexamethasone 8 mg 04/30/22 10:00 05/02/22 09:02 Dexamethasone 4 Mg/Ml Vial IV 05/09/22 10:01 8 mg DAILY FLACO Administration Dextrose 0 ml 04/17/22 23:46 Dextrose 50% In Water (25gm) 50 Ml Syringe IV Q30MIN PRN Hypoglycemia Protocol Digoxin 0.125 mg 04/30/22 17:00 05/02/22 17:39 Digoxin 0.125 Mg Tab FEEDTUBE 0.125 mg DAILY@1700 FLACO Administration Docusate Sodium 100 mg 04/27/22 11:00 05/02/22 22:38 Docusate Sodium 100 Mg/10 Ml Oral Liqd FEEDTUBE 100 mg BID FLACO Administration Doxazosin Mesylate 1 mg 04/30/22 22:00 05/02/22 22:40 Doxazosin 1 Mg Tab PO 1 mg QHS FLACO Administration Enoxaparin Sodium 120 mg 05/02/22 10:00 05/02/22 22:39 Enoxaparin 120 Mg/0.8 Ml Inj SUB-Q 120 mg Q12HR FLACO Administration Protocol Famotidine 20 mg 04/27/22 10:00 05/02/22 22:40 Famotidine 20 Mg Tab FEEDTUBE 20 mg BID FLACO Administration Fentanyl 50 mcg 04/17/22 20:22 04/30/22 22:41 Fentanyl 100 Mcg/2 Ml Inj IV 50 mcg Q10MIN PRN Administration ANALGESIA Hydrophilic Ointment 1 applic 04/18/22 06:02 04/26/22 20:29 Lip Therapy Vaseline TP 1 applic Q2HR PRN Administration Dry Lips Cefepime HCl 2 gm in 100 mls @ 200 mls/hr 04/28/22 08:00 05/03/22 00:12 Cefepime/Ns 2 Gm/100 Ml IV 200 mls/hr Q8H FLACO Administration Protocol Vancomycin HCl 1,750 mg/ 535 mls @ 333.333 mls/hr 04/28/22 10:00 05/02/22 10 :06 Sodium Chloride IV 333.333 mls/hr Q24H FLACO Administration Remdesivir 100 mg/ Sodium 250 mls @ 500 mls/hr 05/01/22 14:00 05/02/22 15:11 Chloride IV 05/04/22 14:29 500 mls/hr Q24HR@1400 FLACO Administration Insulin Glargine 35 units 05/03/22 22:00 Insulin Glargine 100 Units/Ml SUB-Q QHS FLACO Insulin Human Lispro 0 unit 04/18/22 00:00 05/03/22 00:16 Insulin Lispro 100 Unit/Ml SUB-Q Not Given Q6HR [facility] Protocol Insulin Human Lispro 10 unit 04/29/22 12:00 05/03/22 00:17 Insulin Lispro 100 Unit/Ml SUB-Q Not Given Q6HR [facility] Metoprolol Succinate 25 mg 05/02/22 10:00 05/02/22 10:30 Metoprolol Succinate Xl 25 Mg Tab PO 25 mg QDAY FLACO Administration Multi-Ingred Cream/Lotion/Oil/Oint 1 applic 04/18/22 06:02 Mineral Oil/Petrolatum, White Ophth Oint 3.5 Gm OU Q4HR PRN Dry Eye(s) Oxycodone/Acetaminophen 1 tab 04/22/22 11:05 Oxycodone /Acetaminophen 5-325mg Tab FEEDTUBE Q6H PRN Pain, Moderate (4-6) Senna/Docusate Sodium 2 tab 04/28/22 10:00 05/02/22 22:39 Sennosides/Docusate Sodium 8.6/50 Mg Tab FEEDTUBE 2 tab BID FLACO Administration Sodium Chloride 10 ml 04/17/22 22:00 05/02/22 09:01 Sodium Chloride 0.9% 10 Ml Flush Syringe IV 10 ml BID FLACO Administration Sodium Chloride 10 ml 04/17/22 19:48 Sodium Chloride 0.9% 10 Ml Flush Syringe IV PRN PRN LINE FLUSH Sodium Chloride 50 ml 04/30/22 09:00 05/02/22 15:11 Sodium Chloride 0.9% 50 Ml Ivpb IV 05/04/22 14:01 50 ml Q24HR@1400 FLACO Administration Zinc Sulfate 220 mg 04/30/22 22:00 05/02/22 22:40 Zinc Sulfate 220 Mg Cap PO 220 mg BID FLACO Administration
[2022-05-03] MEDS: SENNOSIDES/DOCUSATE SODIUM 8.6/50 MG TAB FEEDTUBE SCH ×2 (09:40→21:02)
[2022-05-03] MEDS: ZINC SULFATE 220 MG CAP PO SCH ×2 (09:40→21:01)
[2022-05-03] MEDS: ASCORBIC ACID 500 MG TAB PO SCH ×2 (09:40→21:02)
[2022-05-03] MEDS: FAMOTIDINE 20 MG TAB FEEDTUBE SCH ×2 (09:40→21:02)
--- NOTE | 2022-05-03 09:42 | Progress Note ---
<ANDIE MARIANO - Last Filed: 05/03/22 16:01> Assessment and Plan Assessment and plan: This is a 61-year-old male with known past medical history of obsesity, DM, HTN, and Atrial fibrillation s/p cardioversion over 12hrs ago, unclear if patient was on AC at home admitted s/p outside of the hospital cardiac arrest/V-fib arrest with ROSC. Hospital Course to Date: 04/18: Severely acidotic this am, now on bcarb gtt. On high dose pressors- Levophed and Vaso. Afib in control rate on the monitor, on Amiodarone and heparin gtt per protocol. Cardiology is following. Patient remains afebrile and leukocytosis improved this am. Now with worsen renal function and low UOP. Patient's EF is 25 to 30%, Dobutamine gtt initiated. Continue current IV abx, continue to trend troponin and lactic acid. Nephrology also consulted for further recs. BLE swelling noted, BLE doppler ordered to r/o DVT. 04/19: Agitation with low SPO2 overnight, sedation increased. This am ABG with worsen hypoxia on 40% Fio2, SPO2 at 90% this am. Fio2 increased to 50%, SPO2 improved above 92%. Remains on multiple pressors and bcarb gtt. Now on dopamine gtt, in Afib with RVR on the monitor. Still on Amiodarone and heparin gtts. Echo noted, EF 15 to 20%. Cardiology is following. With worsen renal function, however making urine this am. No indication for LANDMAN at this per Nephro. Will continue to monitor. Monitor and replace electrolytes as needed 04/20: Nephrology spoke to at bedside re HD, cardiology will proceed with [facility] if patient is to recieve HD post procedure, vent changes per [facility], Sedated with fentanyl and propofol with heparin and amio gtt infusing. 04/21: LHC today. Nephrology will continue IVF and if renal function worsens then will proceed HD with consent from family. Patient became hypoxic with FiO2 at 40% yesterday evening and is currently at 65%. 04/22: Patient was started on vasopressin IV fluids yesterday and his creatinine decreased from 4.2 to 2.9. Patient severely agitated while on propofol and fentanyl. Started low-dose Seroquel and started to wean propofol as tolerated. Patient does follow commands today. Increase in lantus. IV fluids decreased, started on dobutamine per CCM and wean vasopressin for target MAP of 65-70 and SBP greater than 110 04/23: This morning patient being extremely hypertensive with SBP into 200s and given metoprolol. Rn asked to wean propofol as tolerated. Dobutamine decreased to 2.5. Cr improved. US chest completed and showed no pleural effusions. This afternoon alerted by RN that RT believes pt bite through his tube and anesthesia was called to bedside for tube exchange. Decision was made to extubate and reintubate the patient. CXR ordered. 04/24: Patient placed on CPAP trial. Renal numbers look better today. Cardiology would like to try digoxin. No acute events reported overnight. 04/25: Patient now with hypernatremia, slightly increased renal function today but still putting out over 1 L urine over the past 24 hours. Will increase free water flushes and repleate potassium cautiously. Cardilogy will like to continue current management. PSV when able 04/26: Cardiology will increase amiodarone due to heart rate being in the 110s to 120s and will hold off digoxin, remains on dobutamine drip. Hypernatremia improving. Remains on D5 W per nephrology. PSV this AM. Rash noted to trunk, arms, chest. RN to hold off Seroquel. Started on IV Benadryl. Already n.p.o. famotidine. Updated [place] physician who also informed me that the patient is allergic to lisinopril (angioedema) 04/27: Tolerating PSV trail this am on low dose sedation. Per CCM, plan to wean vent setting for possible extubation. If patient requires higher dose of sedation, will add precedex gtt for trial to wean off sedation. Patient with low grade fevers with worsening leukopcytosis, B.cultures from yesterday with NGTD. Will do a lines vacations, D/C CVC and penn. Patient is hemodynamically stable, will continue to monitor for now. Patient is also net positive balance since admit, hypernatremia resolved, and renal function improved, will decrease IVF fo r now. Nephrology is also following. 04/28: Self-extubated this afternoon, requiring emergent reintubation. Flash pulmonary edema noted during intubation, X1 dose of IV lasix administered. Currently hypertensive and Afib with RVR, HR in the 110-130s, sedations resumed. Persistent fevers overnight with leukocytosis, repeat blood culture with no growth. Orders placed for UA and repeat sputum culture. Empiric IV Abx, Cefepine and vanc initiated. ID was also consulted. Continue vent wean/adjustment per CCM. Penn was reinserted overnight due to retention, will reassess in the next 24hrs to 48hrs. 04/29: Remains stable on the vent, this am CXR and ABG with significant improvement. On low dose pressors this am, MAP in the 70s, titrate pressor to maintain MAP in the 70s. Still with persistent fevers despite current IV abx, repeat cultures with NGTD. Orders placed for COVID and Flu PCR.. Worsen LFTs this am, d/w Cardio will D/C PO amio, X2 dose of IV digoxin for rate control. Renal function stable, patient responded well to IV lasix, over 5L out in last 24hrs. Will hold off on diurese today per Nephro, will reassess in the am. Insulin regimen adjusted for hyperglycemia. 04/30: Stable on low vent settings this am. Off pressors, fevers and leukocytosis improved. COVID PCR came back positive, IV steroids initiated. And ID recommendations noted- continue Cefepine and Vanc, Redemsevir added. Remains with transaminitis, abdominal US pending. Patient remains in Afib control, tolerated IV dig. Plan for daily PO dig per Cardiology. Renal function is stable, X1 dose of IV lasix today. K repleted, continue to monitor and replace electrolytes as needed. 05/01: Remains stable on the vent. Fevers improved and VSS. Plan to wean propofol gtt for possible PSV trial this am. Okay to SBT on low dose fentynal gtt per CCM. Tolerated IV lasix, good UOP overnight. Renal function remains stable, will continue to monitor. Possible transfer to [place] whenever a bed is available. 05/02: Off sedations this am, tolerating PSV trial. Plan for possible extubation today per CCM. Renal function continue to improve, X1 dose of IV lasix given prior to possible extubation. PT/OT/Speech ordered. 05/03: s/p extubation, stable on 2L NC. Rhonchi and crackles appreciated through lungs today, no respiratory distress noted. Will repeat CXR this am. Will d/w CCM and nephro of possible additional lasix today. Renal function continue to improved with good UOP, Penn removed. Patient remains in Afib control, on PO digoxin, and now on therapeutic Lovenox. Per Cardio plan to arrange for LifeVest or AICD prior to discharge. D/w CCM will continue ICU care for another 24hrs to 48hrs as patient is still critically ill. Assessment and Plan #Cardiogenic Shock #S/p Cardiac Arrest/V-Fib Arrest with ROSC #NSTEMI #H/o Atrial Fibrillation, HTN - Found in the bathroom unresponsive at a [place] facility. - EMS found patient in V-Fib arrest treated per ACLS ROSC achieved - Positive troponinX3, EKG with no significant ST changes - s/p Dopamine and Dobutamine gtts - Afib control on the monitor, HR 90-100s - 2D echo reviewed. EF 15 to 20% - [facility] severe nonischemic cardiomyopathy with patent coronary arteries, which per cardiology presumably resulted in a primary cardiac arrest. - PO Amio held due to worsen LFts - S/p X2 dose IV dig, now on daily PO Dig per Cardio - Lovenox BID - Per Cardio plan to arrange for LifeVest or AICD prior to discharge. - Continue blood pressure monitor per protocol - Maintain MAP above 65 and SBP less than 160 #Acute Hypoxemic Respiratory Failure - Intubated in the filed during code on 04/17 - [id number] this afternoon, requiring emergent reintubation - Flash pulmonary edema noted during reintubation, gentle diurese as needed - 05/02 s/p extubated, stable on 2L NC - CCM consulted, appreciate recommendations - Aspiration precaution HOB above 30 - PRN ABG and CXR per CCM - Continue O2 supplementation and wean as tolerated - Continue SPO2 monitoring for SPO2 goal above 92% #Acute Metabolic Encephalopathy-improved #Agitation-improved #Face Contusion s/p Fall-improved - Found in the bathroom unresponsive at a [place] facility. Most likely fell and hit his head - CT head reviewed, no acute intracranial abnormality - Awake and appropriate today, off sedations - Avoid benzodiazepine to reduce the possibility of delirium - PRN Analgesia CPOT greater than 3 - Maintenance of sleep-wake cycle #Acute Kidney Injury(VINCENT) most likely ATN #Hypernatremia-improved #Hypekalemia-resolved - secondary to above. hypoperfusion/hypotension - Patient also received IV contrast on admit - Baseline renal function is unknown - Hypernatremia and renal function continue to improved - s/p IV Lasix - Nephrology on consult, appreciated recommendation - Strict intake and output - Avoid nephrotoxic medications; Renally dose medications - Penn in place with great UOP - Monitor and replace electrolytes as needed - Continue FWF #Sepsis #Bilateral Pneumonia #COVID 19 Infection #Severe Metabolic Acidosis-resolved - Initial Imaging reveals bilateral airspace disease, greater in the Upper lobes. Most likely aspiration - Fevers and leukocytosis improved - UA with elevated WBCs - Blood culture with NGTD, Sputum culture with usual adina - Flu PCR negative, COVID PCR positive - On IV [id number] - ID consulted, appreciate recommendations - Continue Cefepine and Vanc, & Redemsevir - F/U on cultures - Daily CBC monitor #Transaminitis #Hepatic Steatosis #Shock Liver-improved - most likely reactive from above/hypoperfusion - LFT improved post cardiac event - LFTs trending back up this am, PO amio held - Abdominal US noted, hepatic steatosis - Continue to trend LFTs #Elevated D-Dimer - CTA chest with no evidence of PE - With BLE swelling- BLE doppler pending - On Lovenox BID #Type 2 Diabetes Mellitus - BG check and SSI Q6hrs - Lantus Qhs - Avoid hypoglycemia #GI/DVT Prophylaxis - PPI- Pepcid - Lovenix BID - SCDs to bilateral lower extremities while in bed #Advance Care Planning - Disease education data, care plan, diagnoses, and prognosis were discussed with patient's at the bedside. Patient is a FULL code. Patient's acknowledged understanding and agreed with current care plan. The high probability of a clinically significant, sudden or life threatening deterioration of the [multiple] system(s) required my full and direct attention, intervention and personal management. The aggregate critical care time was [60] minutes. This time is in addition to time spent performing reported procedures but includes the following: [x] Data Review and interpretation [x] Patient assessment and monitoring of vital signs [x] Documentation [x] Medication orders and management Disposition Plan: ICU Total Time Spent with Patient (Minutes): 60 History Interval history: Patient seen and examined at the bedside. S/p extubation, stable on 2L NC this am. However, rhonchi auscultated throughout lungs and crakles at the base. Patient voiced feeling uncomfortable, but denied any pain nor any discomfort. No respiratory distress noted. Remains in Afib control on the monitor. VSS. [place] overnight Hospitalist Physical - Physical exam Narrative exam: General appearance: Present: no acute distress, well nourished, obese - EENT Eyes: Present: PERRL - Neck Neck: Present: normal ROM, other (Horse) - Respiratory Respiratory effort: Unlabored Respiratory: bilateral: rhonchi - Cardiovascular Rhythm: irregularly irregular Heart Sounds: Present: S1 & S2 - Extremities Extremities: no ischemia, pulses intact, pulses symmetrical Extremity abnormal: edema - Peripheral Assessment Bilateral Upper Extremity Edema Type: Pitting Edema Degree: 3+ Capillary Refill: < 3 seconds Skin Temperature: Warm Generalized Edema Type: Pitting Edema Degree: 2+ Capillary Refill: < 3 seconds Skin Temperature: Warm Peripheral Pulses: within normal limits - Abdominal General gastrointestinal: soft, non-distended, normal bowel sounds - Integumentary Integumentary: Present: warm, dry - Psychiatric Psychiatric: Calm and appropriate, cooperative, - Neurologic Neurologic: Move all extremities, other (Fully AAOX4) - Allied Health Allied health notes reviewed: nursing, case management - Constitutional Vitals: Temp Pulse Resp BP Pulse Ox 98.2 F 80 19 127/75 98 05/03/22 07:09 05/03/22 08:01 05/03/22 08:01 05/03/22 08:01 05/03/22 08:01 HEART Score - HEART Score Troponin: Troponin T 2.980 ng/mL (0.00-0.029) H* 04/19/22 07:11 Results - Labs CBC & Chem 7: 05/03/22 04:46 05/03/22 04:46 Labs: Laboratory Last Values WBC 16.4 K/mm3 (4.5-11.0) H 05/03/22 04:46 RBC 3.08 M/mm3 (3.65-5.03) L 05/03/22 04:46 Hgb 8.8 gm/dl (11.8-15.2) L 05/03/22 04:46 Hct 27.7 % (35.5-45.6) L 05/03/22 04:46 MCV 90 fl (84-94) 05/03/22 04:46 MCH 29 pg (28-32) 05/03/22 04:46 MCHC 32 % (32-34) 05/03/22 04:46 RDW 15.0 % (13.2-15.2) 05/03/22 04:46 Plt Count 596 K/mm3 (140-440) H 05/03/22 04:46 Lymph % (Auto) 5.7 % (13.4-35.0) L 04/29/22 04:20 [place] % (Auto) 7.8 % (0.0-7.3) H 04/29/22 04:20 Eos % (Auto) 3.9 % (0.0-4.3) 04/29/22 04:20 Baso % (Auto) 0.6 % (0.0-1.8) 04/29/22 04:20 Lymph # (Auto) 1.1 K/mm3 (1.2-5.4) L 04/29/22 04:20 [place] # (Auto) 1.5 K/mm3 (0.0-0.8) H 04/29/22 04:20 Eos # (Auto) 0.8 K/mm3 (0.0-0.4) H 04/29/22 04:20 Baso # (Auto) 0.1 K/mm3 (0.0-0.1) 04/29/22 04:20 Add Manual Diff Complete 04/23/22 04:19 Total Counted 100 04/23/22 04:19 Seg Neutrophils % 82.0 % (40.0-70.0) H 04/29/22 04:20 Seg Neuts % (Manual) 74.0 % (40.0-70.0) H 04/23/22 04:19 Band Neutrophils % 2.0 % 04/23/22 04:19 Lymphocytes % (Manual) 10.0 % (13.4-35.0) L 04/23/22 04:19 Reactive Lymphs % (Man) 0 % 04/23/22 04:19 Monocytes % (Manual) 7.0 % (0.0-7.3) 04/23/22 04:19 Eosinophils % (Manual) 7.0 % (0.0-4.3) H 04/23/22 04:19 Basophils % (Manual) 0 % (0.0-1.8) 04/23/22 04:19 Metamyelocytes % 0 % 04/23/22 04:19 Myelocytes % 0 % 04/23/22 04:19 Promyelocytes % 0 % 04/23/22 04:19 Blast Cells % 0 % 04/23/22 04:19 Nucleated RBC % Not Reportable 04/23/22 04:19 Seg Neutrophils # 16.3 K/mm3 (1.8-7.7) H 04/29/22 04:20 Seg Neutrophils # Man 8.0 K/mm3 (1.8-7.7) H 04/23/22 04:19 Band Neutrophils # 0.2 K/mm3 04/23/22 04:19 Lymphocytes # (Manual) 1.1 K/mm3 (1.2-5.4) L 04/23/22 04:19 Abs React Lymphs (Man) 0.0 K/mm3 04/23/22 04:19 Monocytes # (Manual) 0.8 K/mm3 (0.0-0.8) 04/23/22 04:19 Eosinophils # (Manual) 0.8 K/mm3 (0.0-0.4) H 04/23/22 04:19 Basophils # (Manual) 0.0 K/mm3 (0.0-0.1) 04/23/22 04:19 Metamyelocytes # 0.0 K/mm3 04/23/22 04:19 Myelocytes # 0.0 K/mm3 04/23/22 04:19 Promyelocytes # 0.0 K/mm3 04/23/22 04:19 Blast Cells # 0.0 K/mm3 04/23/22 04:19 WBC Morphology Not Reportable 04/23/22 04:19 Hypersegmented Neuts Not Reportable 04/23/22 04:19 Hyposegmented Neuts Not Reportable 04/23/22 04:19 Hypogranular Neuts Not Reportable 04/23/22 04:19 Smudge Cells Not Reportable 04/23/22 04:19 Toxic Granulation Not Reportable 04/23/22 04:19 Toxic Vacuolation Not Reportable 04/23/22 04:19 Dohle Bodies Not Reportable 04/23/22 04:19 Pelger-Huet Anomaly Not Reportable 04/23/22 04:19 Regla Rods Not Reportable 04/23/22 04:19 Platelet Estimate Consistent w auto 04/23/22 04:19 Clumped Platelets Not Reportable 04/23/22 04:19 Plt Clumps, EDTA Not Reportable 04/23/22 04:19 Large Platelets Not Reportable 04/23/22 04:19 Giant Platelets Not Reportable 04/23/22 04:19 Platelet Satelliting Not Reportable 04/23/22 04:19 Plt Morphology Comment Not Reportable 04/23/22 04:19 RBC Morphology Not Reportable 04/23/22 04:19 Dimorphic RBCs Not Reportable 04/23/22 04:19 Polychromasia Not Reportable 04/23/22 04:19 Hypochromasia Not Reportable 04/23/22 04:19 Poikilocytosis Not Reportable 04/23/22 04:19 Anisocytosis Not Reportable 04/23/22 04:19 Microcytosis Not Reportable 04/23/22 04:19 Macrocytosis Not Reportable 04/23/22 04:19 Spherocytes Not Reportable 04/23/22 04:19 Pappenheimer Bodies Not Reportable 04/23/22 04:19 Sickle Cells Not Reportable 04/23/22 04:19 Target Cells Not Reportable 04/23/22 04:19 Tear Drop Cells Not Reportable 04/23/22 04:19 Ovalocytes Not Reportable 04/23/22 04:19 Helmet Cells Not Reportable 04/23/22 04:19 [place] Bodies Not Reportable 04/23/22 04:19 [place] Rings Not Reportable 04/23/22 04:19 [place] Cells Not Reportable 04/23/22 04:19 Bite Cells Not Reportable 04/23/22 04:19 Crenated Cell Not Reportable 04/23/22 04:19 Elliptocytes Not Reportable 04/23/22 04:19 Acanthocytes (Spur) Not Reportable 04/23/22 04:19 Rouleaux Not Reportable 04/23/22 04:19 Hemoglobin C Crystals Not Reportable 04/23/22 04:19 Schistocytes Not Reportable 04/23/22 04:19 Malaria parasites Not Reportable 04/23/22 04:19 [place] Bodies Not Reportable 04/23/22 04:19 Hem Pathologist Commnt No 04/23/22 04:19 PT 15.6 Sec. (12.2-14.9) H 04/18/22 Unknown INR 1.08 (0.87-1.13) 04/18/22 Unknown APTT 28.6 Sec. (24.2-36.6) 04/18/22 Unknown Activated Coag Time 179 (74-137) H 04/21/22 12:14 Heparin Anti-Xa Level 0.16 U.I./ml (0.3-0.7) L 04/21/22 04:00 ABG pH 7.442 pH Units (7.350-7.450) 05/02/22 04:45 ABG pCO2 37.8 mm Hg 05/02/22 04:45 ABG pO2 83.1 mm Hg (80.0-90.0) 05/02/22 04:45 ABG HCO3 25.2 mmol/L (20.0-26.0) 05/02/22 04:45 ABG O2 Saturation 97.0 % (95.0-99.0) 05/02/22 04:45 ABG O2 Content 12.6 (0.0-44) 05/02/22 04:45 ABG Base Excess 1.1 mmol/L (-2.0-3.0) 05/02/22 04:45 ABG Hemoglobin 9.3 gm/dl (14.0-18.0) L 05/02/22 04:45 ABG Carboxyhemoglobin 1.4 % (0.0-5.0) 05/02/22 04:45 ABG Methemoglobin 0.4 % (0.0-1.5) 05/02/22 04:45 Oxyhemoglobin 95.2 % (95.0-99.0) 05/02/22 04:45 FiO2 30 % 05/02/22 04:45 Sodium 142 mmol/L (137-145) 05/03/22 04:46 Potassium 3.6 mmol/L (3.6-5.0) 05/03/22 04:46 Chloride 108.3 mmol/L (98-107) H 05/03/22 04:46 Carbon Dioxide 25 mmol/L (22-30) 05/03/22 04:46 Anion Gap 12 mmol/L 05/03/22 04:46 BUN 34 mg/dL (9-20) H 05/03/22 04:46 Creatinine 1.2 mg/dL (0.8-1.3) 05/03/22 04:46 Estimated GFR > 60 ml/min 05/03/22 04:46 BUN/Creatinine Ratio 28 % 05/03/22 04:46 Glucose 130 mg/dL (75-100) H 05/03/22 04:46 POC Glucose 138 mg/dL (70-105) H 05/03/22 05:23 Lactic Acid 1.90 mmol/L (0.7-2.0) 04/21/22 04:20 Calcium 7.7 mg/dL (8.4-10.2) L 05/03/22 04:46 Phosphorus 3.20 mg/dL (2.5-4.5) 05/03/22 04:46 Magnesium 2.10 mg/dL (1.7-2.3) 05/03/22 04:46 Total Bilirubin 0.40 mg/dL (0.1-1.2) 05/03/22 04:46 Direct Bilirubin 0.3 mg/dL (0-0.2) H 04/30/22 04:25 Indirect Bilirubin 0.1 mg/dL 04/30/22 04:25 AST 98 units/L (5-40) H 05/03/22 04:46 ALT 111 units/L (7-56) H 05/03/22 04:46 Alkaline Phosphatase 147 units/L (35-129) H 05/03/22 04:46 Total Creatine Kinase 61 units/L (55-170) 04/29/22 04:20 CK-MB (CK-2) 28.5 ng/mL (0.0-4.0) H 04/19/22 07:11 CK-MB (CK-2) Rel Index 0.8 (0-4) 04/19/22 07:11 Troponin T 2.980 ng/mL (0.00-0.029) H* 04/19/22 07:11 C-Reactive Protein 15.30 mg/dL (0.00-1.30) H 04/28/22 08:20 Total Protein 6.0 g/dL (6.3-8.2) L 05/03/22 04:46 Albumin 1.9 g/dL (3.9-5) L 05/03/22 04:46 Albumin/Globulin Ratio 0.5 % 05/03/22 04:46 Triglycerides 214 mg/dL (2-149) H 05/01/22 04:00 Cholesterol 106 mg/dL (50-199) 04/17/22 19:56 LDL Cholesterol Direct 57 mg/dL (50-130) 04/17/22 19:56 HDL Cholesterol 40 mg/dL (40-59) 04/17/22 19:56 Cholesterol/HDL Ratio 2.65 % 04/17/22 19:56 Procalcitonin 2.90 ng/mL (<0.15) 04/28/22 Unknown Urine Color Straw (Yellow) 04/28/22 08:35 Urine Turbidity Clear (Clear) 04/28/22 08:35 Urine pH 6.0 (5.0-7.0) 04/28/22 08:35 Ur Specific [place] 1.000 (1.003-1.030) L 04/28/22 08:35 Urine Protein 300 mg/dl mg/dL (Negative) 04/28/22 08:35 Urine Glucose (UA) Negative mg/dL (Negative) 04/28/22 08:35 Urine Ketones Negative mg/dL (Negative) 04/28/22 08:35 Urine Blood 3+ (Negative) 04/28/22 08:35 Urine Nitrite Negative (Negative) 04/28/22 08:35 Ur Reducing Substances Not Reportable 04/28/22 08:35 Urine Bilirubin Negative (Negative) 04/28/22 08:35 Urine Ictotest Not Reportable 04/28/22 08:35 Urine Urobilinogen < 2.0 mg/dL (<2.0) 04/28/22 08:35 Ur Leukocyte Esterase Small (Negative) 04/28/22 08:35 Urine WBC (Auto) 21.0 /HPF (0.0-6.0) H 04/28/22 08:35 Urine RBC (Auto) 9.0 /HPF (0.0-6.0) 04/28/22 08:35 Urine Bacteria (Auto) 2+ /HPF (Negative) 04/19/22 02:08 Urine WBC Clumps 3+ /HPF 04/19/22 02:08 RBC Casts 34 /LPF 04/19/22 02:08 Urine Mucus Few /HPF 04/28/22 08:35 Urine Yeast (Budding) 3+ /HPF 04/19/22 02:08 Urine Eosinophils None seen (None Seen) 04/19/22 02:08 Urine Creatinine 90.9 mg/dL (0.1-20.0) H 04/19/22 02:08 Urine Sodium 54 mmol/L 04/19/22 02:08 Digoxin 0.7 ng/mL (0.9-2.0) L 05/03/22 04:46 Coronavirus (PCR) Positive (Negative) A 04/29/22 09:38 Influenza A (RT-PCR) Negative (Negative) 04/29/22 11:44 Influenza B (RT-PCR) Negative (Negative) 04/29/22 11:44 Blood Type A POSITIVE 04/21/22 04:37 Antibody Screen Negative 04/21/22 04:37 Penn/IV: Voiding Method Urinal Active Medications - Current Medications Current Medications: Generic Name Dose Route Start Last Admin Trade Name Freq PRN Reason Stop Dose Admin Acetaminophen 650 mg 04/17/22 19:48 04/28/22 21:38 Acetaminophen 325 Mg Tab PO 650 mg Q6H PRN Administration Pain MILD(1-3)/Fever >100.5/CHE Albuterol 2.5 mg 04/17/22 19:48 Albuterol 2.5 Mg/3 Ml Nebu IH Q3HRT PRN Shortness Of Breath Ascorbic Acid 500 mg 04/30/22 22:00 05/03/22 09:40 Ascorbic Acid 500 Mg Tab PO 500 mg BID FLACO Administration Aspirin 81 mg 04/20/22 12:00 05/03/22 09:37 Aspirin 81 Mg Tab Chew FEEDTUBE 81 mg QDAY FLACO Administration Atorvastatin Calcium 20 mg 04/20/22 22:00 05/02/22 22:41 Atorvastatin 20 Mg Tab FEEDTUBE 20 mg QHS FLACO Administration Dexamethasone 8 mg 04/30/22 10:00 05/03/22 09:38 Dexamethasone 4 Mg/Ml Vial IV 05/09/22 10:01 8 mg DAILY FLACO Administration Dextrose 0 ml 04/17/22 23:46 Dextrose 50% In Water (25gm) 50 Ml Syringe IV Q30MIN PRN Hypoglycemia Protocol Digoxin 0.125 mg 04/30/22 17:00 05/02/22 17:39 Digoxin 0.125 Mg Tab FEEDTUBE 0.125 mg DAILY@1700 FLACO Administration Docusate Sodium 100 mg 04/27/22 11:00 05/03/22 09:38 Docusate Sodium 100 Mg/10 Ml Oral Liqd FEEDTUBE 100 mg BID FLACO Administration Doxazosin Mesylate 1 mg 04/30/22 22:00 05/02/22 22:40 Doxazosin 1 Mg Tab PO 1 mg QHS [facility] Administration Enoxaparin Sodium 120 mg 05/02/22 10:00 05/03/22 09:38 Enoxaparin 120 Mg/0.8 Ml Inj SUB-Q 120 mg Q12HR [facility] Administration Protocol Famotidine 20 mg 04/27/22 10:00 05/03/22 09:40 Famotidine 20 Mg Tab FEEDTUBE 20 mg BID FLACO Administration Fentanyl 50 mcg 04/17/22 20:22 04/30/22 22:41 Fentanyl 100 Mcg/2 Ml Inj IV 50 mcg Q10MIN PRN Administration ANALGESIA Hydrophilic Ointment 1 applic 04/18/22 06:02 04/26/22 20:29 Lip Therapy Vaseline TP 1 applic Q2HR PRN Administration Dry Lips Cefepime HCl 2 gm in 100 mls @ 200 mls/hr 04/28/22 08:00 05/03/22 09:36 Cefepime/Ns 2 Gm/100 Ml IV 200 mls/hr Q8H [facility] Administration Protocol Vancomycin HCl 1,750 mg/ 535 mls @ 333.333 mls/hr 04/28/22 10:00 05/03/22 09:37 Sodium Chloride IV 333.333 mls/hr Q24H [facility] Administration Remdesivir 100 mg/ Sodium 250 mls @ 500 mls/hr 05/01/22 14:00 05/02/22 15:11 Chloride IV 05/04/22 14:29 500 mls/hr Q24HR@1400 [facility] Administration Insulin Glargine 35 units 05/03/22 22:00 Insulin Glargine 100 Units/Ml SUB-Q QHS [facility] Insulin Human Lispro 0 unit 04/18/22 00:00 05/03/22 09:37 Insulin Lispro 100 Unit/Ml SUB-Q Not Given Q6HR [facility] Protocol Insulin Human Lispro 10 unit 04/29/22 12:00 05/03/22 09:38 Insulin Lispro 100 Unit/Ml SUB-Q Not Given Q6HR [facility] Metoprolol Succinate 25 mg 05/02/22 10:00 05/03/22 09:39 Metoprolol Succinate Xl 25 Mg Tab PO 25 mg QDAY [facility]ACO Administration Multi-Ingred Cream/Lotion/Oil/Oint 1 applic 04/18/22 06:02 Mineral Oil/Petrolatum, White Ophth Oint 3.5 Gm OU Q4HR PRN Dry Eye(s) Oxycodone/Acetaminophen 1 tab 04/22/22 11:05 Oxycodone /Acetaminophen 5-325mg Tab FEEDTUBE Q6H PRN Pain, Moderate (4-6) Senna/Docusate Sodium 2 tab 04/28/22 10:00 05/03/22 09:40 Sennosides/Docusate Sodium 8.6/50 Mg Tab FEEDTUBE 2 tab BID FLACO Administration Sodium Chloride 10 ml 04/17/22 22:00 05/03/22 09:36 Sodium Chloride 0.9% 10 Ml Flush Syringe IV 10 ml BID FLACO Administration Sodium Chloride 10 ml 04/17/22 19:48 Sodium Chloride 0.9% 10 Ml Flush Syringe IV PRN PRN LINE FLUSH Sodium Chloride 50 ml 04/30/22 09:00 05/02/22 15:11 Sodium Chloride 0.9% 50 Ml Ivpb IV 05/04/22 14:01 50 ml Q24HR@1400 FALCO Administration Zinc Sulfate 220 mg 04/30/22 22:00 05/03/22 09:40 Zinc Sulfate 220 Mg Cap PO 220 mg BID FLACO Administration Nutrition/Malnutrition Assess - Dietary Evaluation Nutrition/Malnutrition Findings: Nutrition Notes Start: 04/18/22 08:52 Freq: Status: Active Protocol: Document 04/29/22 11:29 ROMELIA (Rec: 04/29/22 11:55 ROMELIA [id number]) Nutrition Notes Initial or Follow up Reassessment Current Diagnosis Acute Kidney Injury,Diabetes, Sepsis,Hypertension, Respiratory Failure Other Pertinent Diagnosis s/p PEA w/ROSC, HFrEF, Pneumonia, Transaminitis, Rabdomyolisis, .. Current Diet TF-Nepro w/CARBSTEADY @ 35 ml/ hr (from D 04/21). Labs/Tests 04/29: BUN 30, Crea 1.6, Glu 236, Ca 8.1. Pertinent Medications 04/29: Humalog 4U, Propofol @ 3.456 ml/hr (91 Kcal), mothers nutritionally unremarkable. Height 5 ft 9 in Weight 115.2 kg [place] Body Weight (kg) 72.72 BMI 37.5 Weight change and time frame No body weight change reported in 11 days. Weight Status Obese Subjective/Other Information RD consult for routine F/U on TF tolerance/continuation assessment. TF continues as prescribed, no further information available at the time. Pt continues on Mechanical Ventilation, O2 saturation @ 100%, according to Physical Assessment History notes. Pt remains incontinent, according to Physical Assessment History notes. Pt presents blisters on the groin and on hand, according to Physical Assessment History notes. Percent of energy/protein needs met: Prescribed TF-Nepro w/ CARBSTEADY @ 35 ml/hr provides for energy/protein needs (1, 500 Kcal/68 g) during LOS, 77% Kcal; 90% AA. Including 91 Kcal from Propofol: 81% Kcal; 90% AA. Burn Absent Trauma Absent GI Symptoms None Food Allergy No Skin Integrity/Comment Blisters on the groin and on hand. Current % PO Other Minimum of two criteria No Fluid Accumulation N/A Reduced Dehydrogenation Operator Head Strength N/A (non-severe) Protein-Calorie Malnutrition N\A #1 Nutrition Diagnosis Inadequate oral intake Diagnosis Progress(for reassessment Continues documentation) Is patient on ventilator? Yes Is Patient Ambulatory and/or Out of Bed No REE-([facility]-confined to bed) 2323.608 Kcal/Kg value to use for calculation 17 Approximate Energy Requirements Using 1958 kcal/Kg Calculation Used for Recommendations Kcal/kg Additional Notes Protein: 0.8-1.2 g/Kg AdjBW; 75-113 g/day. Fluids: 1 ml/Kcal, or as per MD. Nutrition Intervention Nutrition Support: Continue TF-Nepro w/CARBSTEADY @ 35 ml/hr. Flush: 220 ml water Q 4 hr, or as per MD. Kcal 1,500 Protein (gm) 68 Carbohydrates (gm) 134 Fat (gm) 80 Fluid (mL) 606 Fiber (gm) 11 % RDI: 77% Kcal; 90% AA. Goal #1 Provide at least 75% of energy /protein needs through Enteral Feeding during LOS. Follow-Up By: 05/06/22 Additional Comments Continue monitoring TF tolerance, ventilation status, vasopressors, and BM. <REFUGIOGABRIELE - Last Filed: 05/03/22 21:17> Assessment and Plan Assessment and plan: I saw and evaluated the patient. I agree with the findings and the plan of care as documented in the Nurse Practitioner's~note, with the following corrections and additions. Hospitalist Physical - Constitutional Vitals: Temp Pulse Resp BP Pulse Ox 97.8 F 80 30 H 144/74 100 05/03/22 21:02 05/03/22 21:01 05/03/22 21:01 05/03/22 21:01 05/03/22 21:01 HEART Score - HEART Score Troponin: Troponin T 2.980 ng/mL (0.00-0.029) H* 04/19/22 07:11 Results - Labs CBC & Chem 7: 05/03/22 04:46 05/03/22 04:46 Labs: Laboratory Last Values WBC 16.4 K/mm3 (4.5-11.0) H 05/03/22 04:46 RBC 3.08 M/mm3 (3.65-5.03) L 05/03/22 04:46 Hgb 8.8 gm/dl (11.8-15.2) L 05/03/22 04:46 Hct 27.7 % (35.5-45.6) L 05/03/22 04:46 MCV 90 fl (84-94) 05/03/22 04:46 MCH 29 pg (28-32) 05/03/22 04:46 MCHC 32 % (32-34) 05/03/22 04:46 RDW 15.0 % (13.2-15.2) 05/03/22 04:46 Plt Count 596 K/mm3 (140-440) H 05/03/22 04:46 Lymph % (Auto) 5.7 % (13.4-35.0) L 04/29/22 04:20 [place] % (Auto) 7.8 % (0.0-7.3) H 04/29/22 04:20 Eos % (Auto) 3.9 % (0.0-4.3) 04/29/22 04:20 Baso % (Auto) 0.6 % (0.0-1.8) 04/29/22 04:20 Lymph # (Auto) 1.1 K/mm3 (1.2-5.4) L 04/29/22 04:20 [place] # (Auto) 1.5 K/mm3 (0.0-0.8) H 04/29/22 04:20 Eos # (Auto) 0.8 K/mm3 (0.0-0.4) H 04/29/22 04:20 Baso # (Auto) 0.1 K/mm3 (0.0-0.1) 04/29/22 04:20 Add Manual Diff Complete 04/23/22 04:19 Total Counted 100 04/23/22 04:19 Seg Neutrophils % 82.0 % (40.0-70.0) H 04/29/22 04:20 Seg Neuts % (Manual) 74.0 % (40.0-70.0) H 04/23/22 04:19 Band Neutrophils % 2.0 % 04/23/22 04:19 Lymphocytes % (Manual) 10.0 % (13.4-35.0) L 04/23/22 04:19 Reactive Lymphs % (Man) 0 % 04/23/22 04:19 Monocytes % (Manual) 7.0 % (0.0-7.3) 04/23/22 04:19 Eosinophils % (Manual) 7.0 % (0.0-4.3) H 04/23/22 04:19 Basophils % (Manual) 0 % (0.0-1.8) 04/23/22 04:19 Metamyelocytes % 0 % 04/23/22 04:19 Myelocytes % 0 % 04/23/22 04:19 Promyelocytes % 0 % 04/23/22 04:19 Blast Cells % 0 % 04/23/22 04:19 Nucleated RBC % Not Reportable 04/23/22 04:19 Seg Neutrophils # 16.3 K/mm3 (1.8-7.7) H 04/29/22 04:20 Seg Neutrophils # Man 8.0 K/mm3 (1.8-7.7) H 04/23/22 04:19 Band Neutrophils # 0.2 K/mm3 04/23/22 04:19 Lymphocytes # (Manual) 1.1 K/mm3 (1.2-5.4) L 04/23/22 04:19 Abs React Lymphs (Man) 0.0 K/mm3 04/23/22 04:19 Monocytes # (Manual) 0.8 K/mm3 (0.0-0.8) 04/23/22 04:19 Eosinophils # (Manual) 0.8 K/mm3 (0.0-0.4) H 04/23/22 04:19 Basophils # (Manual) 0.0 K/mm3 (0.0-0.1) 04/23/22 04:19 Metamyelocytes # 0.0 K/mm3 04/23/22 04:19 Myelocytes # 0.0 K/mm3 04/23/22 04:19 Promyelocytes # 0.0 K/mm3 04/23/22 04:19 Blast Cells # 0.0 K/mm3 04/23/22 04:19 WBC Morphology Not Reportable 04/23/22 04:19 Hypersegmented Neuts Not Reportable 04/23/22 04:19 Hyposegmented Neuts Not Reportable 04/23/22 04:19 Hypogranular Neuts Not Reportable 04/23/22 04:19 Smudge Cells Not Reportable 04/23/22 04:19 Toxic Granulation Not Reportable 04/23/22 04:19 Toxic Vacuolation Not Reportable 04/23/22 04:19 Dohle Bodies Not Reportable 04/23/22 04:19 Pelger-Huet Anomaly Not Reportable 04/23/22 04:19 Regla Rods Not Reportable 04/23/22 04:19 Platelet Estimate Consistent w auto 04/23/22 04:19 Clumped Platelets Not Reportable 04/23/22 04:19 Plt Clumps, EDTA Not Reportable 04/23/22 04:19 Large Platelets Not Reportable 04/23/22 04:19 Giant Platelets Not Reportable 04/23/22 04:19 Platelet Satelliting Not Reportable 04/23/22 04:19 Plt Morphology Comment Not Reportable 04/23/22 04:19 RBC Morphology Not Reportable 04/23/22 04:19 Dimorphic RBCs Not Reportable 04/23/22 04:19 Polychromasia Not Reportable 04/23/22 04:19 Hypochromasia Not Reportable 04/23/22 04:19 Poikilocytosis Not Reportable 04/23/22 04:19 Anisocytosis Not Reportable 04/23/22 04:19 Microcytosis Not Reportable 04/23/22 04:19 Macrocytosis Not Reportable 04/23/22 04:19 Spherocytes Not Reportable 04/23/22 04:19 Pappenheimer Bodies Not Reportable 04/23/22 04:19 Sickle Cells Not Reportable 04/23/22 04:19 Target Cells Not Reportable 04/23/22 04:19 Tear Drop Cells Not Reportable 04/23/22 04:19 Ovalocytes Not Reportable 04/23/22 04:19 Helmet Cells Not Reportable 04/23/22 04:19 [place] Bodies Not Reportable 04/23/22 04:19 [place] Rings Not Reportable 04/23/22 04:19 [place] Cells Not Reportable 04/23/22 04:19 Bite Cells Not Reportable 04/23/22 04:19 Crenated Cell Not Reportable 04/23/22 04:19 Elliptocytes Not Reportable 04/23/22 04:19 Acanthocytes (Spur) Not Reportable 04/23/22 04:19 Rouleaux Not Reportable 04/23/22 04:19 Hemoglobin C Crystals Not Reportable 04/23/22 04:19 Schistocytes Not Reportable 04/23/22 04:19 Malaria parasites Not Reportable 04/23/22 04:19 [place] Bodies Not Reportable 04/23/22 04:19 Hem Pathologist Commnt No 04/23/22 04:19 PT 15.6 Sec. (12.2-14.9) H 04/18/22 Unknown INR 1.08 (0.87-1.13) 04/18/22 Unknown APTT 28.6 Sec. (24.2-36.6) 04/18/22 Unknown Activated Coag Time 179 (74-137) H 04/21/22 12:14 Heparin Anti-Xa Level 0.16 U.I./ml (0.3-0.7) L 04/21/22 04:00 ABG pH 7.442 pH Units (7.350-7.450) 05/02/22 04:45 ABG pCO2 37.8 mm Hg 05/02/22 04:45 ABG pO2 83.1 mm Hg (80.0-90.0) 05/02/22 04:45 ABG HCO3 25.2 mmol/L (20.0-26.0) 05/02/22 04:45 ABG O2 Saturation 97.0 % (95.0-99.0) 05/02/22 04:45 ABG O2 Content 12.6 (0.0-44) 05/02/22 04:45 ABG Base Excess 1.1 mmol/L (-2.0-3.0) 05/02/22 04:45 ABG Hemoglobin 9.3 gm/dl (14.0-18.0) L 05/02/22 04:45 ABG Carboxyhemoglobin 1.4 % (0.0-5.0) 05/02/22 04:45 ABG Methemoglobin 0.4 % (0.0-1.5) 05/02/22 04:45 Oxyhemoglobin 95.2 % (95.0-99.0) 05/02/22 04:45 FiO2 30 % 05/02/22 04:45 Sodium 142 mmol/L (137-145) 05/03/22 04:46 Potassium 3.6 mmol/L (3.6-5.0) 05/03/22 04:46 Chloride 108.3 mmol/L (98-107) H 05/03/22 04:46 Carbon Dioxide 25 mmol/L (22-30) 05/03/22 04:46 Anion Gap 12 mmol/L 05/03/22 04:46 BUN 34 mg/dL (9-20) H 05/03/22 04:46 Creatinine 1.2 mg/dL (0.8-1.3) 05/03/22 04:46 Estimated GFR > 60 ml/min 05/03/22 04:46 BUN/Creatinine Ratio 28 % 05/03/22 04:46 Glucose 130 mg/dL (75-100) H 05/03/22 04:46 POC Glucose 163 mg/dL (70-105) H 05/03/22 11:51 Lactic Acid 1.90 mmol/L (0.7-2.0) 04/21/22 04:20 Calcium 7.7 mg/dL (8.4-10.2) L 05/03/22 04:46 Phosphorus 3.20 mg/dL (2.5-4.5) 05/03/22 04:46 Magnesium 2.10 mg/dL (1.7-2.3) 05/03/22 04:46 Total Bilirubin 0.40 mg/dL (0.1-1.2) 05/03/22 04:46 Direct Bilirubin 0.3 mg/dL (0-0.2) H 04/30/22 04:25 Indirect Bilirubin 0.1 mg/dL 04/30/22 04:25 AST 98 units/L (5-40) H 05/03/22 04:46 ALT 111 units/L (7-56) H 05/03/22 04:46 Alkaline Phosphatase 147 units/L (35-129) H 05/03/22 04:46 Total Creatine Kinase 61 units/L (55-170) 04/29/22 04:20 CK-MB (CK-2) 28.5 ng/mL (0.0-4.0) H 04/19/22 07:11 CK-MB (CK-2) Rel Index 0.8 (0-4) 04/19/22 07:11 Troponin T 2.980 ng/mL (0.00-0.029) H* 04/19/22 07:11 C-Reactive Protein 15.30 mg/dL (0.00-1.30) H 04/28/22 08:20 Total Protein 6.0 g/dL (6.3-8.2) L 05/03/22 04:46 Albumin 1.9 g/dL (3.9-5) L 05/03/22 04:46 Albumin/Globulin Ratio 0.5 % 05/03/22 04:46 Triglycerides 214 mg/dL (2-149) H 05/01/22 04:00 Cholesterol 106 mg/dL (50-199) 04/17/22 19:56 LDL Cholesterol Direct 57 mg/dL (50-130) 04/17/22 19:56 HDL Cholesterol 40 mg/dL (40-59) 04/17/22 19:56 Cholesterol/HDL Ratio 2.65 % 04/17/22 19:56 Procalcitonin 2.90 ng/mL (<0.15) 04/28/22 Unknown Urine Color Straw (Yellow) 04/28/22 08:35 Urine Turbidity Clear (Clear) 04/28/22 08:35 Urine pH 6.0 (5.0-7.0) 04/28/22 08:35 Ur Specific [place] 1.000 (1.003-1.030) L 04/28/22 08:35 Urine Protein 300 mg/dl mg/dL (Negative) 04/28/22 08:35 Urine Glucose (UA) Negative mg/dL (Negative) 04/28/22 08:35 Urine Ketones Negative mg/dL (Negative) 04/28/22 08:35 Urine Blood 3+ (Negative) 04/28/22 08:35 Urine Nitrite Negative (Negative) 04/28/22 08:35 Ur Reducing Substances Not Reportable 04/28/22 08:35 Urine Bilirubin Negative (Negative) 04/28/22 08:35 Urine Ictotest Not Reportable 04/28/22 08:35 Urine Urobilinogen < 2.0 mg/dL (<2.0) 04/28/22 08:35 Ur Leukocyte Esterase Small (Negative) 04/28/22 08:35 Urine WBC (Auto) 21.0 /HPF (0.0-6.0) H 04/28/22 08:35 Urine RBC (Auto) 9.0 /HPF (0.0-6.0) 04/28/22 08:35 Urine Bacteria (Auto) 2+ /HPF (Negative) 04/19/22 02:08 Urine WBC Clumps 3+ /HPF 04/19/22 02:08 RBC Casts 34 /LPF 04/19/22 02:08 Urine Mucus Few /HPF 04/28/22 08:35 Urine Yeast (Budding) 3+ /HPF 04/19/22 02:08 Urine Eosinophils None seen (None Seen) 04/19/22 02:08 Urine Creatinine 90.9 mg/dL (0.1-20.0) H 04/19/22 02:08 Urine Sodium 54 mmol/L 04/19/22 02:08 Digoxin 0.7 ng/mL (0.9-2.0) L 05/03/22 04:46 Coronavirus (PCR) Positive (Negative) A 04/29/22 09:38 Influenza A (RT-PCR) Negative (Negative) 04/29/22 11:44 Influenza B (RT-PCR) Negative (Negative) 04/29/22 11:44 Blood Type A POSITIVE 04/21/22 04:37 Antibody Screen Negative 04/21/22 04:37 Microbiology: Microbiology 04/28/22 07:26 Tracheal Aspirate Sputum Culture - Final Penn/IV: Voiding Method Urinal Active Medications - Current Medications Current Medications: Generic Name Dose Route Start Last Admin Trade Name Freq PRN Reason Stop Dose Admin Acetaminophen 650 mg 04/17/22 19:48 04/28/22 21:38 Acetaminophen 325 Mg Tab PO 650 mg Q6H PRN Administration Pain MILD(1-3)/Fever >100.5/CHE Albuterol 2.5 mg 04/17/22 19:48 Albuterol 2.5 Mg/3 Ml Nebu IH Q3HRT PRN Shortness Of Breath Ascorbic Acid 500 mg 04/30/22 22:00 05/03/22 21:02 Ascorbic Acid 500 Mg Tab PO 500 mg BID FLACO Administration Aspirin 81 mg 04/20/22 12:00 05/03/22 09:37 Aspirin 81 Mg Tab Chew FEEDTUBE 81 mg QDAY FLACO Administration Atorvastatin Calcium 20 mg 04/20/22 22:00 05/03/22 21:02 Atorvastatin 20 Mg Tab FEEDTUBE 20 mg QHS FLACO Administration Dexamethasone 8 mg 04/30/22 10:00 05/03/22 09:38 Dexamethasone 4 Mg/Ml Vial IV 05/09/22 10:01 8 mg DAILY FLACO Administration Dextrose 0 ml 04/17/22 23:46 Dextrose 50% In Water (25gm) 50 Ml Syringe IV Q30MIN PRN Hypoglycemia Protocol Digoxin 0.125 mg 04/30/22 17:00 05/03/22 17:43 Digoxin 0.125 Mg Tab FEEDTUBE 0.125 mg DAILY@1700 FLACO Administration Docusate Sodium 100 mg 04/27/22 11:00 05/03/22 21:01 Docusate Sodium 100 Mg/10 Ml Oral Liqd FEEDTUBE 100 mg BID FLACO Administration Doxazosin Mesylate 1 mg 04/30/22 22:00 05/03/22 21:01 Doxazosin 1 Mg Tab PO 1 mg QHS FLACO Administration Enoxaparin Sodium 120 mg 05/02/22 10:00 05/03/22 21:01 Enoxaparin 120 Mg/0.8 Ml Inj SUB-Q 120 mg Q12HR FLACO Administration Protocol Famotidine 20 mg 04/27/22 10:00 05/03/22 21:02 Famotidine 20 Mg Tab FEEDTUBE 20 mg BID FLACO Administration Fentanyl 50 mcg 04/17/22 20:22 04/30/22 22:41 Fentanyl 100 Mcg/2 Ml Inj IV 50 mcg Q10MIN PRN Administration ANALGESIA Furosemide 20 mg 05/03/22 18:00 05/03/22 17:44 Furosemide 20 Mg Tab PO 20 mg 0600,1800 FLACO Administration Hydrophilic Ointment 1 applic 04/18/22 06:02 04/26/22 20:29 Lip Therapy Vaseline TP 1 applic Q2HR PRN Administration Dry Lips Cefepime HCl 2 gm in 100 mls @ 200 mls/hr 04/28/22 08:00 05/03/22 16:45 Cefepime/Ns 2 Gm/100 Ml IV 200 mls/hr Q8H FLACO Administration Protocol Remdesivir 100 mg/ Sodium 250 mls @ 500 mls/hr 05/01/22 14:00 05/03/22 15:45 Chloride IV 05/04/22 14:29 500 mls/hr Q24HR@1400 FLACO Administration Insulin Glargine 35 units 05/03/22 22:00 05/03/22 21:01 Insulin Glargine 100 Units/Ml SUB-Q 35 units QHS FLACO Administration Insulin Human Lispro 0 unit 04/18/22 00:00 05/03/22 17:56 Insulin Lispro 100 Unit/Ml SUB-Q 6 unit Q6HR FLACO Administration Protocol Insulin Human Lispro 10 unit 04/29/22 12:00 05/03/22 17:56 Insulin Lispro 100 Unit/Ml SUB-Q 10 unit Q6HR FLACO Administration Metoprolol Succinate 25 mg 05/02/22 10:00 05/03/22 09:39 Metoprolol Succinate Xl 25 Mg Tab PO 25 mg QDAY FLACO Administration Multi-Ingred Cream/Lotion/Oil/Oint 1 applic 04/18/22 06:02 Mineral Oil/Petrolatum, White Ophth Oint 3.5 Gm OU Q4HR PRN Dry Eye(s) Oxycodone/Acetaminophen 1 tab 04/22/22 11:05 Oxycodone /Acetaminophen 5-325mg Tab FEEDTUBE Q6H PRN Pain, Moderate (4-6) Senna/Docusate Sodium 2 tab 04/28/22 10:00 05/03/22 21:02 Sennosides/Docusate Sodium 8.6/50 Mg Tab FEEDTUBE 2 tab BID FLACO Administration Sodium Chloride 10 ml 04/17/22 22:00 05/03/22 21:02 Sodium Chloride 0.9% 10 Ml Flush Syringe IV 10 ml BID FLACO Administration Sodium Chloride 10 ml 04/17/22 19:48 Sodium Chloride 0.9% 10 Ml Flush Syringe IV PRN PRN LINE FLUSH Sodium Chloride 50 ml 04/30/22 09:00 05/03/22 15:45 Sodium Chloride 0.9% 50 Ml Ivpb IV 05/04/22 14:01 50 ml Q24HR@1400 FLACO Administration Zinc Sulfate 220 mg 04/30/22 22:00 05/03/22 21:01 Zinc Sulfate 220 Mg Cap PO 220 mg BID FLACO Administration Nutrition/Malnutrition Assess - Dietary Evaluation Nutrition/Malnutrition Findings: Nutrition Notes Start: 04/18/22 08:52 Freq: Status: Active Protocol: Document 04/29/22 11:29 ROMELIA (Rec: 04/29/22 11:55 ROMELIA [id number]) Nutrition Notes Initial or Follow up Reassessment Current Diagnosis Acute Kidney Injury,Diabetes, Sepsis,Hypertension, Respiratory Failure Other Pertinent Diagnosis s/p PEA w/ROSC, HFrEF, Pneumonia, Transaminitis, Rabdomyolisis, .. Current Diet TF-Nepro w/CARBSTEADY @ 35 ml/ hr (from D 04/21). Labs/Tests 04/29: BUN 30, Crea 1.6, Glu 236, Ca 8.1. Pertinent Medications 04/29: Humalog 4U, Propofol @ 3.456 ml/hr (91 Kcal), mothers nutritionally unremarkable. Height 5 ft 9 in Weight 115.2 kg [place] Body Weight (kg) 72.72 BMI 37.5 Weight change and time frame No body weight change reported in 11 days. Weight Status Obese Subjective/Other Information RD consult for routine F/U on TF tolerance/continuation assessment. TF continues as prescribed, no further information available at the time. Pt continues on Mechanical Ventilation, O2 saturation @ 100%, according to Physical Assessment History notes. Pt remains incontinent, according to Physical Assessment History notes. Pt presents blisters on the groin and on hand, according to Physical Assessment History notes. Percent of energy/protein needs met: Prescribed TF-Nepro w/ CARBSTEADY @ 35 ml/hr provides for energy/protein needs (1, 500 Kcal/68 g) during LOS, 77% Kcal; 90% AA. Including 91 Kcal from Propofol: 81% Kcal; 90% AA. Burn Absent Trauma Absent GI Symptoms None Food Allergy No Skin Integrity/Comment Blisters on the groin and on hand. Current % PO Other Minimum of two criteria No Fluid Accumulation N/A Reduced Dehydrogenation Operator Head Strength N/A (non-severe) Protein-Calorie Malnutrition N\A #1 Nutrition Diagnosis Inadequate oral intake Diagnosis Progress(for reassessment Continues documentation) Is patient on ventilator? Yes Is Patient Ambulatory and/or Out of Bed No REE-([facility]-confined to bed) 2323.608 Kcal/Kg value to use for calculation 17 Approximate Energy Requirements Using 1958 kcal/Kg Calculation Used for Recommendations Kcal/kg Additional Notes Protein: 0.8-1.2 g/Kg AdjBW; 75-113 g/day. Fluids: 1 ml/Kcal, or as per MD. Nutrition Intervention Nutrition Support: Continue TF-Nepro w/CARBSTEADY @ 35 ml/hr. Flush: 220 ml water Q 4 hr, or as per MD. Kcal 1,500 Protein (gm) 68 Carbohydrates (gm) 134 Fat (gm) 80 Fluid (mL) 606 Fiber (gm) 11 % RDI: 77% Kcal; 90% AA. Goal #1 Provide at least 75% of energy /protein needs through Enteral Feeding during LOS. Follow-Up By: 05/06/22 Additional Comments Continue monitoring TF tolerance, ventilation status, vasopressors, and BM.
--- NOTE | 2022-05-03 09:48 | XRay Report ---
XR chest 1V ap INDICATION / CLINICAL INFORMATION: Follow up respiratory failure. COMPARISON: Radiograph from yesterday. FINDINGS: SUPPORT DEVICES: Unchanged. HEART /PULMONARY VASCULATURE: Congestive changes. Heart size is stable. LUNGS / PLEURA: No significant change in bibasilar airspace opacities and small effusions. No pneumot horax. IMPRESSION: 1. No significant interval change. Signer Name: Buddy Barrow MD Signed: 05/03/2022 9:44 AM Workstation Name: [id number]
--- NOTE | 2022-05-03 10:21 | Progress Note ---
Assessment and Plan COVID-19 infection Acute hypoxic respiratory failure Extubated May 02 Ventricular fibrillation cardiac arrest Nonischemic cardiomyopathy Cardiac cath this admission revealing normal coronary circulation Type 2 diabetes mellitus Persistent atrial fibrillation Rate controlled with digoxin, metoprolol Anticoagulated with subcutaneous Lovenox Anemia Stable hemoglobin and hematocrit Acute renal failure Transaminitis Recommendations: Continue current management Arrange for LifeVest or AICD prior to discharge We will continue to follow Subjective Date of service: 05/03/22 Principal diagnosis: AHRF; AMS; Pneumonia; Shock; DM II; Severe Metabolic Acidosis Interval history: Patient is status postextubation. Telemetry showing rate controlled atrial fibrillation. Objective Vital Signs Temp Pulse Pulse Resp BP Pulse Ox 05/03/22 08:01 80 19 127/75 98 05/03/22 08:00 77 87 18 98 05/03/22 07:45 82 13 113/65 98 05/03/22 07:31 78 15 99 05/03/22 07:16 73 22 113/65 97 05/03/22 07:09 98.2 F 05/03/22 07:00 75 17 105/67 96 05/03/22 06:46 75 12 105/67 96 05/03/22 06:30 79 12 105/67 98 05/03/22 06:16 77 22 105/67 97 05/03/22 06:00 82 17 102/58 98 05/03/22 05:46 76 17 105/67 98 05/03/22 05:30 69 14 102/58 99 05/03/22 05:16 68 18 102/58 99 05/03/22 05:00 74 14 102/58 99 05/03/22 04:46 64 21 102/58 100 05/03/22 04:30 65 23 118/59 98 05/03/22 04:16 66 21 118/59 98 05/03/22 04:00 72 75 22 118/59 99 05/03/22 03:46 63 22 118/59 100 05/03/22 03:30 63 22 118/59 99 05/03/22 03:16 67 23 118/59 99 05/03/22 03:00 71 22 108/59 99 05/03/22 02:46 66 22 108/59 99 05/03/22 02:30 63 21 111/64 98 05/03/22 02:16 64 23 111/64 99 05/03/22 02:00 73 20 111/64 99 05/03/22 01:49 65 24 111/64 99 05/03/22 00:09 71 15 131/74 98 05/03/22 00:00 97.8 F 71 71 20 98 05/02/22 22:40 81 141/72 05/02/22 20:22 98 05/02/22 20:00 98.3 F 68 68 20 100 05/02/22 17:39 74 126/73 05/02/22 16:00 79 64 20 98 05/02/22 14:30 80 27 H 142/79 98 05/02/22 14:16 67 28 H 142/79 99 05/02/22 14:00 74 16 147/111 98 05/02/22 13:46 83 20 147/111 98 05/02/22 13:30 76 21 147/111 97 05/02/22 13:16 76 12 147/111 99 05/02/22 13:00 74 11 L 141/110 100 05/02/22 12:46 75 20 141/110 98 05/02/22 12:30 84 15 138/75 97 05/02/22 12:16 68 16 138/75 98 05/02/22 12:00 83 64 17 130/68 99 05/02/22 11:47 99 05/02/22 11:46 76 13 130/68 98 05/02/22 11:30 81 11 L 149/86 98 05/02/22 11:16 95 H 12 149/86 98 05/02/22 11:00 85 14 143/81 99 05/02/22 10:46 73 15 143/81 98 05/02/22 10:30 73 14 140/81 97 - Physical Examination General: No Apparent Distress, Other (Patient is intubated, sedated, on the vent) HEENT: Positive: EOMI Neck: Positive: neck supple Cardiac: Positive: irregularly irregular Lungs: Positive: Decreased Breath Sounds Neuro: Positive: Grossly Intact, Other (Intubated, sedated on the vent, unable to assess) Abdomen: Positive: Soft Skin: Positive: Rash (On the left hand which is dressed), Other (Blisters on the right hand) Extremities: Present: edema (Trace) - Labs and Meds Cardiac Enzymes 05/03/22 Range/Units 04:46 AST 98 H (5-40) units/L CBC 05/03/22 Range/Units 04:46 WBC 16.4 H (4.5-11.0) K/mm3 RBC 3.08 L (3.65-5.03) M/mm3 Hgb 8.8 L (11.8-15.2) gm/dl Hct 27.7 L (35.5-45.6) % Plt Count 596 H (140-440) K/mm3 Comprehensive Metabolic Panel 05/03/22 Range/Units 04:46 Sodium 142 (137-145) mmol/L Potassium 3.6 (3.6-5.0) mmol/L Chloride 108.3 H (98-107) mmol/L Carbon Dioxide 25 (22-30) mmol/L BUN 34 H (9-20) mg/dL Creatinine 1.2 (0.8-1.3) mg/dL Glucose 130 H (75-100) mg/dL Calcium 7.7 L (8.4-10.2) mg/dL AST 98 H (5-40) units/L ALT 111 H (7-56) units/L Alkaline Phosphatase 147 H (35-129) units/L Total Protein 6.0 L (6.3-8.2) g/dL Albumin 1.9 L (3.9-5) g/dL - Allied health notes Allied health notes reviewed: RT
--- NOTE | 2022-05-03 12:47 | Progress Note ---
Assessment and Plan This is a 62 year old male with OHS, HTN, DM, metabolic syndrome, s/p vfib cardiac arrest, Septic shock, aspiration pneumonia, transaminitis, VINCENT with acute metabolic encephalopathy Acute hypoxemic respiratory failure s/p MVS s/p cardiac arrest Altered mental status Aspiration pneumonia Shock (Cardiogenic +/- Septic) Severe Metabolic Acidosis Morbid Obesity BMI 37.5 Diabetes type II Obesity hypoventilation syndrome - continue to titrate supplemental oxygen to keep SpO2 89-92% -BIPAP qhs and prn -[employer] for dysphagia screen -PT/OT to evaluate and treat - aspiration precautions, HOB >30 -CXR,ABG as clinically indicated - Furosemide 20mg BID while monitoring renal function and electrolytes - continue bronchodilators with pulmonary hygiene per RT - avoid nephrotoxins, - continue accuchecks with glycemic control per SSI (Target blood glucose of 140-180 mg/dL; avoid hypoglycemia) - continue to avoid benzodiazepines, reduce the possibility of delirium - Maintenance of sleep-wake cycle, avoid delirium - continue enteral nutritional support at goal rate as tolerated - Stress ulcer and VTE prophylaxis - Monitor hemodynamics closely -Heart failure measures - continue other care per attending / other consultants - discharge planning ongoing concurrently COVID SPECIFIC INTERVENTIONS - COVID-19 test result positive CONDITION: FAIR PROGNOSIS: FAIR CODE STATUS: FULL CODE Plan to transfer out of the ICU tomorrow if he remains stable Subjective Date of service: 05/03/22 Principal diagnosis: AHRF; AMS; Pneumonia; Shock; DM II; Severe Metabolic Acidosis Interval history: Patient is seen today for: Acute hypoxemic respiratory failure; AMS; Aspiration pneumonia; Shock (Cardiogenic +/- Septic); DM II; Severe Metabolic Acidosis Seen and examined at bedside; 24hour events reviewed; nursing and respiratory care staff consulted; no adverse overnight events reported to me; resting in bed; extubated yesterday and is doing well. Manjinder is out. He used BIPAP last night, currently on oxygen at 3L [place]. He denies any chest pain, no shortness of breath, no fevers or chills. he has some hoarseness but denies odynophagia Objective Vital Signs - 12hr 05/03/22 05/03/22 05/03/22 01:49 02:00 02:16 Temperature Pulse Rate 65 73 64 Pulse Rate [ From Monitor] Respiratory 24 20 23 Rate Blood Pressure 111/64 111/64 111/64 O2 Sat by Pulse 99 99 99 Oximetry 05/03/22 05/03/22 05/03/22 02:30 02:46 03:00 Temperature Pulse Rate 63 66 71 Pulse Rate [ From Monitor] Respiratory Rate Blood Pressure 111/64 108/59 108/59 O2 Sat by Pulse 98 99 99 Oximetry 05/03/22 05/03/22 05/03/22 03:16 03:30 03:46 Temperature Pulse Rate 67 63 63 Pulse Rate [ From Monitor] Respiratory 22 Rate Blood Pressure 118/59 118/59 118/59 O2 Sat by Pulse 99 99 100 Oximetry 05/03/22 05/03/22 05/03/22 04:00 04:16 04:30 Temperature Pulse Rate 72 66 65 Pulse Rate [ 75 From Monitor] Respiratory Rate Blood Pressure 118/59 118/59 118/59 O2 Sat by Pulse 99 98 98 Oximetry 05/03/22 05/03/22 05/03/22 04:46 05:00 05:16 Temperature Pulse Rate 64 74 68 Pulse Rate [ From Monitor] Respiratory 21 14 18 Rate Blood Pressure 102/58 102/58 102/58 O2 Sat by Pulse 100 99 99 Oximetry 05/03/22 05/03/22 05/03/22 05:30 05:46 06:00 Temperature Pulse Rate 69 76 82 Pulse Rate [ From Monitor] Respiratory 14 17 17 Rate Blood Pressure 102/58 105/67 102/58 O2 Sat by Pulse 99 98 98 Oximetry 05/03/22 05/03/22 05/03/22 06:16 06:30 06:46 Temperature Pulse Rate 77 79 75 Pulse Rate [ From Monitor] Respiratory 22 12 12 Rate Blood Pressure 105/67 105/67 105/67 O2 Sat by Pulse 97 98 96 Oximetry 05/03/22 05/03/22 05/03/22 07:00 07:09 07:16 Temperature 98.2 F Pulse Rate 75 73 Pulse Rate [ From Monitor] Respiratory 17 22 Rate Blood Pressure 105/67 113/65 O2 Sat by Pulse 96 97 Oximetry 05/03/22 05/03/22 05/03/22 07:31 07:45 08:00 Temperature Pulse Rate 78 82 77 Pulse Rate [ 87 From Monitor] Respiratory 15 13 18 Rate Blood Pressure 113/65 O2 Sat by Pulse 99 98 98 Oximetry 05/03/22 05/03/22 05/03/22 08:01 08:15 08:31 Temperature Pulse Rate 80 77 89 Pulse Rate [ From Monitor] Respiratory 19 11 L 12 Rate Blood Pressure 127/75 127/75 127/75 O2 Sat by Pulse 98 98 99 Oximetry 05/03/22 05/03/22 05/03/22 08:45 09:01 09:15 Temperature Pulse Rate 79 99 H 86 Pulse Rate [ From Monitor] Respiratory 14 12 12 Rate Blood Pressure 127/75 127/75 127/75 O2 Sat by Pulse 99 97 98 Oximetry 05/03/22 05/03/22 05/03/22 09:31 09:45 10:01 Temperature Pulse Rate 75 82 77 Pulse Rate [ From Monitor] Respiratory 11 L 19 14 Rate Blood Pressure 127/75 127/75 127/75 O2 Sat by Pulse 98 98 99 Oximetry 05/03/22 05/03/22 05/03/22 10:15 10:31 10:45 Temperature Pulse Rate 91 H 77 77 Pulse Rate [ From Monitor] Respiratory 16 14 26 H Rate Blood Pressure 127/75 127/75 127/75 O2 Sat by Pulse 91 98 Oximetry 05/03/22 05/03/22 11:01 11:53 Temperature 98.9 F Pulse Rate 80 Pulse Rate [ From Monitor] Respiratory 17 Rate Blood Pressure 124/77 O2 Sat by Pulse 97 Oximetry Constitutional: no acute distress, alert Eyes: non-icteric ENT: oropharynx moist Neck: supple, no lymphadenopathy, no JVD Effort: normal Ascultation: Bilateral: diminished breath sounds Percussion: Bilateral: not dull Cardiovascular: irregular rhythm, other (No R/M) Gastrointestinal: normoactive bowel sounds, soft, non-tender, non-distended ( protuberant), other (Dunbar catheter) Integumentary: rash (erythematous rash over anterior chest wall and upper extremities-improving) Extremities: no cyanosis, no edema, pulses normal, no ischemia or petechiae, edema (bilateral upper extemities) Neurologic: normal mental status, non-focal exam (grossly), pupils equal and ro und, CN II-XII normal, motor strength normal and Psychiatric: mood appropriate, affect normal CBC and BMP: 05/03/22 04:46 05/03/22 04:46 ABG, PT/INR, D-dimer: ABG ABG pH 7.442 pH Units (7.350-7.450) 05/02/22 04:45 ABG pCO2 37.8 mm Hg 05/02/22 04:45 ABG pO2 83.1 mm Hg (80.0-90.0) 05/02/22 04:45 ABG O2 Saturation 97.0 % (95.0-99.0) 05/02/22 04:45 PT/INR, D-dimer PT 15.6 Sec. (12.2-14.9) H 04/18/22 Unknown INR 1.08 (0.87-1.13) 04/18/22 Unknown Abnormal lab findings: Abnormal Labs 04/17/22 04/17/22 04/17/22 19:18 19:55 19:56 WBC RBC Hgb Hct RDW Plt Count Lymph % (Auto) [place] % (Auto) Eos % (Auto) Lymph # (Auto) [place] # (Auto) Eos # (Auto) Seg Neutrophils % Seg Neuts % (Manual) Lymphocytes % (Manual) Eosinophils % (Manual) Seg Neutrophils # Seg Neutrophils # Man Lymphocytes # (Manual) Eosinophils # (Manual) PT Activated Coag Time Heparin Anti-Xa Level ABG pH 7.120 L* ABG pO2 45.3 L ABG HCO3 18.5 L ABG O2 Saturation 68.3 L ABG Base Excess -11.5 L ABG Hemoglobin Oxyhemoglobin 66.8 L Sodium Potassium Chloride 94.2 L Carbon Dioxide 17 L BUN Creatinine 1.6 H Glucose 315 H POC Glucose 277 H Lactic Acid Calcium Phosphorus Magnesium Direct Bilirubin AST 529 H ALT 318 H Alkaline Phosphatase 137 H Total Creatine Kinase 398 H CK-MB (CK-2) 17.9 H CK-MB (CK-2) Rel Index 4.4 H Troponin T 0.205 H* C-Reactive Protein Total Protein Albumin Triglycerides Ur Specific [place] Urine Blood Urine WBC (Auto) Urine Creatinine Digoxin Coronavirus (PCR) 04/17/22 04/17/22 04/17/22 19:58 19:58 21:42 WBC 11.9 H RBC 5.17 H Hgb 15.5 H Hct 48.0 H RDW Plt Count Lymph % (Auto) [place] % (Auto) Eos % (Auto) Lymph # (Auto) [place] # (Auto) Eos # (Auto) Seg Neutrophils % 71.7 H Seg Neuts % (Manual) Lymphocytes % (Manual) Eosinophils % (Manual) Seg Neutrophils # 8.5 H Seg Neutrophils # Man Lymphocytes # (Manual) Eosinophils # (Manual) PT Activated Coag Time Heparin Anti-Xa Level ABG pH ABG pO2 ABG HCO3 ABG O2 Saturation ABG Base Excess ABG Hemoglobin Oxyhemoglobin Sodium Potassium Chloride 95.0 L Carbon Dioxide 19 L BUN Creatinine 1.5 H Glucose 306 H POC Glucose Lactic Acid Calcium Phosphorus Magnesium Direct Bilirubin AST ALT Alkaline Phosphatase Total Creatine Kinase 412 H CK-MB (CK-2) 19.2 H CK-MB (CK-2) Rel Index 4.6 H Troponin T 0.285 H* D C-Reactive Protein Total Protein Albumin Triglycerides Ur Specific [place] Urine Blood Urine WBC (Auto) Urine Creatinine Digoxin Coronavirus (PCR) 04/17/22 04/18/22 04/18/22 21:42 00:40 01:07 WBC RBC Hgb Hct RDW Plt Count Lymph % (Auto) [place] % (Auto) Eos % (Auto) Lymph # (Auto) [place] # (Auto) Eos # (Auto) Seg Neutrophils % Seg Neuts % (Manual) Lymphocytes % (Manual) Eosinophils % (Manual) Seg Neutrophils # Seg Neutrophils # Man Lymphocytes # (Manual) Eosinophils # (Manual) PT Activated Coag Time Heparin Anti-Xa Level ABG pH ABG pO2 ABG HCO3 ABG O2 Saturation ABG Base Excess ABG Hemoglobin Oxyhemoglobin Sodium Potassium Chloride Carbon Dioxide BUN Creatinine Glucose POC Glucose 320 H Lactic Acid 7.90 H* 7.90 H* Calcium Phosphorus Magnesium Direct Bilirubin AST ALT Alkaline Phosphatase Total Creatine Kinase CK-MB (CK-2) CK-MB (CK-2) Rel Index Troponin T C-Reactive Protein Total Protein Albumin Triglycerides Ur Specific [place] Urine Blood Urine WBC (Auto) Urine Creatinine Digoxin Coronavirus (PCR) 04/18/22 04/18/22 04/18/22 01:07 04:00 06:04 WBC RBC Hgb Hct RDW Plt Count Lymph % (Auto) [place] % (Auto) Eos % (Auto) Lymph # (Auto) [place] # (Auto) Eos # (Auto) Seg Neutrophils % Seg Neuts % (Manual) Lymphocytes % (Manual) Eosinophils % (Manual) Seg Neutrophils # Seg Neutrophils # Man Lymphocytes # (Manual) Eosinophils # (Manual) PT Activated Coag Time Heparin Anti-Xa Level < 0.10 L ABG pH ABG pO2 ABG HCO3 ABG O2 Saturation ABG Base Excess ABG Hemoglobin Oxyhemoglobin Sodium Potassium Chloride Carbon Dioxide BUN Creatinine Glucose POC Glucose 305 H Lactic Acid Calcium Phosphorus Magnesium Direct Bilirubin AST ALT Alkaline Phosphatase Total Creatine Kinase 488 H CK-MB (CK-2) 25.3 H CK-MB (CK-2) Rel Index 5.1 H Troponin T 0.665 H* D C-Reactive Protein Total Protein Albumin Triglycerides Ur Specific [place] Urine Blood Urine WBC (Auto) Urine Creatinine Digoxin Coronavirus (PCR) 04/18/22 04/18/22 04/18/22 06:20 11:10 12:48 WBC RBC Hgb Hct RDW Plt Count Lymph % (Auto) [place] % (Auto) Eos % (Auto) Lymph # (Auto) [place] # (Auto) Eos # (Auto) Seg Neutrophils % Seg Neuts % (Manual) Lymphocytes % (Manual) Eosinophils % (Manual) Seg Neutrophils # Seg Neutrophils # Man Lymphocytes # (Manual) Eosinophils # (Manual) PT Activated Coag Time Heparin Anti-Xa Level < 0.10 L ABG pH 7.119 L* 7.304 L ABG pO2 56.1 L 103.5 H ABG HCO3 18.4 L 14.4 L ABG O2 Saturation 80.7 L ABG Base Excess -11.4 L -10.6 L ABG Hemoglobin 13.5 L Oxyhemoglobin 79.2 L Sodium Potassium Chloride Carbon Dioxide BUN Creatinine Glucose POC Glucose Lactic Acid Calcium Phosphorus Magnesium Direct Bilirubin AST ALT Alkaline Phosphatase Total Creatine Kinase CK-MB (CK-2) CK-MB (CK-2) Rel Index Troponin T C-Reactive Protein Total Protein Albumin Triglycerides Ur Specific [place] Urine Blood Urine WBC (Auto) Urine Creatinine Digoxin Coronavirus (PCR) 04/18/22 04/18/22 04/18/22 13:13 16:00 16:00 WBC RBC Hgb Hct RDW Plt Count Lymph % (Auto) [place] % (Auto) Eos % (Auto) Lymph # (Auto) [place] # (Auto) Eos # (Auto) Seg Neutrophils % Seg Neuts % (Manual) Lymphocytes % (Manual) Eosinophils % (Manual) Seg Neutrophils # Seg Neutrophils # Man Lymphocytes # (Manual) Eosinophils # (Manual) PT Activated Coag Time Heparin Anti-Xa Level ABG pH ABG pO2 ABG HCO3 ABG O2 Saturation ABG Base Excess ABG Hemoglobin Oxyhemoglobin Sodium Potassium Chloride Carbon Dioxide BUN Creatinine Glucose POC Glucose 334 H Lactic Acid 7.00 H* Calcium Phosphorus 5.70 H Magnesium 1.30 L Direct Bilirubin AST ALT Alkaline Phosphatase Total Creatine Kinase 969 H CK-MB (CK-2) 55.9 H CK-MB (CK-2) Rel Index 5.7 H Troponin T 1.580 H* D C-Reactive Protein Total Protein Albumin Triglycerides Ur Specific [place] Urine Blood Urine WBC (Auto) Urine Creatinine Digoxin Coronavirus (PCR) 04/18/22 04/18/22 04/18/22 16:00 18:00 18:01 WBC RBC Hgb Hct RDW Plt Count Lymph % (Auto) [place] % (Auto) Eos % (Auto) Lymph # (Auto) [place] # (Auto) Eos # (Auto) Seg Neutrophils % Seg Neuts % (Manual) Lymphocytes % (Manual) Eosinophils % (Manual) Seg Neutrophils # Seg Neutrophils # Man Lymphocytes # (Manual) Eosinophils # (Manual) PT Activated Coag Time Heparin Anti-Xa Level < 0.10 L ABG pH ABG pO2 ABG HCO3 ABG O2 Saturation ABG Base Excess ABG Hemoglobin Oxyhemoglobin Sodium 136 L Potassium 6.3 H* D Chloride 97.6 L Carbon Dioxide 18 L BUN 34 H Creatinine 3.5 H Glucose 409 H POC Glucose 397 H Lactic Acid Calcium 6.8 L Phosphorus Magnesium Direct Bilirubin AST ALT Alkaline Phosphatase Total Creatine Kinase CK-MB (CK-2) CK-MB (CK-2) Rel Index Troponin T C-Reactive Protein Total Protein Albumin Triglycerides Ur Specific [place] Urine Blood Urine WBC (Auto) Urine Creatinine Digoxin Coronavirus (PCR) 04/18/22 04/18/22 04/18/22 19:13 20:58 21:22 WBC RBC Hgb Hct RDW Plt Count Lymph % (Auto) [place] % (Auto) Eos % (Auto) Lymph # (Auto) [place] # (Auto) Eos # (Auto) Seg Neutrophils % Seg Neuts % (Manual) Lymphocytes % (Manual) Eosinophils % (Manual) Seg Neutrophils # Seg Neutrophils # Man Lymphocytes # (Manual) Eosinophils # (Manual) PT Activated Coag Time Heparin Anti-Xa Level ABG pH 7.502 H ABG pO2 144.5 H ABG HCO3 ABG O2 Saturation ABG Base Excess ABG Hemoglobin 12.5 L Oxyhemoglobin Sodium Potassium Chloride Carbon Dioxide BUN Creatinine Glucose POC Glucose 321 H 307 H Lactic Acid Calcium Phosphorus Magnesium Direct Bilirubin AST ALT Alkaline Phosphatase Total Creatine Kinase CK-MB (CK-2) CK-MB (CK-2) Rel Index Troponin T C-Reactive Protein Total Protein Albumin Triglycerides Ur Specific [place] Urine Blood Urine WBC (Auto) Urine Creatinine Digoxin Coronavirus (PCR) 04/18/22 04/18/22 04/18/22 21:30 21:30 Unknown WBC RBC Hgb Hct RDW Plt Count Lymph % (Auto) [place] % (Auto) Eos % (Auto) Lymph # (Auto) [place] # (Auto) Eos # (Auto) Seg Neutrophils % Seg Neuts % (Manual) 81.0 H Lymphocytes % (Manual) 12.0 L Eosinophils % (Manual) Seg Neutrophils # 9.8 H Seg Neutrophils # Man 8.7 H Lymphocytes # (Manual) Eosinophils # (Manual) PT Activated Coag Time Heparin Anti-Xa Level ABG pH ABG pO2 ABG HCO3 ABG O2 Saturation ABG Base Excess ABG Hemoglobin Oxyhemoglobin Sodium Potassium Chloride 96.6 L Carbon Dioxide BUN 37 H Creatinine 3.6 H Glucose 312 H POC Glucose Lactic Acid 5.50 H* Calcium 7.3 L Phosphorus Magnesium Direct Bilirubin AST ALT Alkaline Phosphatase Total Creatine Kinase CK-MB (CK-2) CK-MB (CK-2) Rel Index Troponin T C-Reactive Protein Total Protein Albumin Triglycerides Ur Specific [place] Urine Blood Urine WBC (Auto) Urine Creatinine Digoxin Coronavirus (PCR) 04/18/22 04/18/22 04/19/22 Unknown Unknown 00:35 WBC RBC Hgb Hct RDW Plt Count Lymph % (Auto) [place] % (Auto) Eos % (Auto) Lymph # (Auto) [place] # (Auto) Eos # (Auto) Seg Neutrophils % Seg Neuts % (Manual) Lymphocytes % (Manual) Eosinophils % (Manual) Seg Neutrophils # Seg Neutrophils # Man Lymphocytes # (Manual) Eosinophils # (Manual) PT 15.6 H Activated Coag Time Heparin Anti-Xa Level ABG pH ABG pO2 ABG HCO3 ABG O2 Saturation ABG Base Excess ABG Hemoglobin Oxyhemoglobin Sodium Potassium Chloride Carbon Dioxide 18 L BUN 26 H Creatinine 2.5 H D Glucose 330 H POC Glucose Lactic Acid Calcium 7.9 L Phosphorus Magnesium Direct Bilirubin AST 463 H ALT 249 H Alkaline Phosphatase Total Creatine Kinase CK-MB (CK-2) CK-MB (CK-2) Rel Index Troponin T 2.670 H* D C-Reactive Protein Total Protein Albumin 3.3 L Triglycerides Ur Specific [place] Urine Blood Urine WBC (Auto) Urine Creatinine Digoxin Coronavirus (PCR) 04/19/22 04/19/22 04/19/22 00:39 02:08 02:08 WBC RBC Hgb Hct RDW Plt Count Lymph % (Auto) [place] % (Auto) Eos % (Auto) Lymph # (Auto) [place] # (Auto) Eos # (Auto) Seg Neutrophils % Seg Neuts % (Manual) Lymphocytes % (Manual) Eosinophils % (Manual) Seg Neutrophils # Seg Neutrophils # Man Lymphocytes # (Manual) Eosinophils # (Manual) PT Activated Coag Time Heparin Anti-Xa Level ABG pH ABG pO2 ABG HCO3 ABG O2 Saturation ABG Base Excess ABG Hemoglobin Oxyhemoglobin Sodium Potassium Chloride Carbon Dioxide BUN Creatinine Glucose POC Glucose 263 H Lactic Acid Calcium Phosphorus Magnesium Direct Bilirubin AST ALT Alkaline Phosphatase Total Creatine Kinase CK-MB (CK-2) CK-MB (CK-2) Rel Index Troponin T C-Reactive Protein Total Protein Albumin Triglycerides Ur Specific [place] Urine Blood Large A Urine WBC (Auto) 88.0 H Urine Creatinine 90.9 H Digoxin Coronavirus (PCR) 04/19/22 04/19/22 04/19/22 02:08 03:45 03:45 WBC 14.2 H RBC Hgb Hct RDW Plt Count Lymph % (Auto) [place] % (Auto) Eos % (Auto) Lymph # (Auto) [place] # (Auto) Eos # (Auto) Seg Neutrophils % Seg Neuts % (Manual) Lymphocytes % (Manual) Eosinophils % (Manual) Seg Neutrophils # Seg Neutrophils # Man Lymphocytes # (Manual) Eosinophils # (Manual) PT Activated Coag Time Heparin Anti-Xa Level 0.18 L ABG pH ABG pO2 ABG HCO3 ABG O2 Saturation ABG Base Excess ABG Hemoglobin Oxyhemoglobin Sodium Potassium Chloride 94.2 L Carbon Dioxide BUN 39 H Creatinine 3.8 H Glucose 243 H POC Glucose Lactic Acid Calcium 7.1 L Phosphorus Magnesium 1.50 L Direct Bilirubin AST 380 H ALT 289 H Alkaline Phosphatase Total Creatine Kinase CK-MB (CK-2) CK-MB (CK-2) Rel Index Troponin T C-Reactive Protein Total Protein 5.4 L Albumin 2.5 L Triglycerides Ur Specific [place] Urine Blood Urine WBC (Auto) Urine Creatinine Digoxin Coronavirus (PCR) 04/19/22 04/19/22 04/19/22 03:45 06:01 07:11 WBC RBC Hgb Hct RDW Plt Count Lymph % (Auto) [place] % (Auto) Eos % (Auto) Lymph # (Auto) [place] # (Auto) Eos # (Auto) Seg Neutrophils % Seg Neuts % (Manual) Lymphocytes % (Manual) Eosinophils % (Manual) Seg Neutrophils # Seg Neutrophils # Man Lymphocytes # (Manual) Eosinophils # (Manual) PT Activated Coag Time Heparin Anti-Xa Level ABG pH ABG pO2 ABG HCO3 ABG O2 Saturation ABG Base Excess ABG Hemoglobin Oxyhemoglobin Sodium Potassium Chloride Carbon Dioxide BUN Creatinine Glucose POC Glucose 165 H Lactic Acid 4.00 H* Calcium Phosphorus Magnesium Direct Bilirubin AST ALT Alkaline Phosphatase Total Creatine Kinase 3270 H CK-MB (CK-2) 28.5 H CK-MB (CK-2) Rel Index Troponin T 2.980 H* C-Reactive Protein Total Protein Albumin Triglycerides Ur Specific [place] Urine Blood Urine WBC (Auto) Urine Creatinine Digoxin Coronavirus (PCR) 04/19/22 04/19/22 04/19/22 07:50 08:50 12:49 WBC RBC Hgb Hct RDW Plt Count Lymph % (Auto) [place] % (Auto) Eos % (Auto) Lymph # (Auto) [place] # (Auto) Eos # (Auto) Seg Neutrophils % Seg Neuts % (Manual) Lymphocytes % (Manual) Eosinophils % (Manual) Seg Neutrophils # Seg Neutrophils # Man Lymphocytes # (Manual) Eosinophils # (Manual) PT Activated Coag Time Heparin Anti-Xa Level ABG pH 7.471 H ABG pO2 58.9 L ABG HCO3 27.1 H ABG O2 Saturation 91.7 L ABG Base Excess 3.4 H ABG Hemoglobin 12.2 L Oxyhemoglobin 90.0 L Sodium Potassium Chloride Carbon Dioxide BUN Creatinine Glucose POC Glucose 331 H Lactic Acid 3.40 H* Calcium Phosphorus Magnesium Direct Bilirubin AST ALT Alkaline Phosphatase Total Creatine Kinase CK-MB (CK-2) CK-MB (CK-2) Rel Index Troponin T C-Reactive Protein Total Protein Albumin Triglycerides Ur Specific [place] Urine Blood Urine WBC (Auto) Urine Creatinine Digoxin Coronavirus (PCR) 04/19/22 04/19/22 04/19/22 16:15 19:25 21:17 WBC RBC Hgb Hct RDW Plt Count Lymph % (Auto) [place] % (Auto) Eos % (Auto) Lymph # (Auto) [place] # (Auto) Eos # (Auto) Seg Neutrophils % Seg Neuts % (Manual) Lymphocytes % (Manual) Eosinophils % (Manual) Seg Neutrophils # Seg Neutrophils # Man Lymphocytes # (Manual) Eosinophils # (Manual) PT Activated Coag Time Heparin Anti-Xa Level ABG pH ABG pO2 ABG HCO3 ABG O2 Saturation ABG Base Excess ABG Hemoglobin Oxyhemoglobin Sodium Potassium Chloride Carbon Dioxide BUN Creatinine Glucose POC Glucose 304 H 251 H Lactic Acid 4.00 H* Calcium Phosphorus Magnesium Direct Bilirubin AST ALT Alkaline Phosphatase Total Creatine Kinase CK-MB (CK-2) CK-MB (CK-2) Rel Index Troponin T C-Reactive Protein Total Protein Albumin Triglycerides Ur Specific [place] Urine Blood Urine WBC (Auto) Urine Creatinine Digoxin Coronavirus (PCR) 04/19/22 04/20/22 04/20/22 23:00 04:12 04:12 WBC 12.2 H RBC Hgb 11.6 L Hct 35.3 L RDW Plt Count Lymph % (Auto) [place] % (Auto) Eos % (Auto) Lymph # (Auto) [place] # (Auto) Eos # (Auto) Seg Neutrophils % Seg Neuts % (Manual) Lymphocytes % (Manual) Eosinophils % (Manual) Seg Neutrophils # Seg Neutrophils # Man Lymphocytes # (Manual) Eosinophils # (Manual) PT Activated Coag Time Heparin Anti-Xa Level 0.15 L ABG pH ABG pO2 ABG HCO3 ABG O2 Saturation ABG Base Excess ABG Hemoglobin Oxyhemoglobin Sodium Potassium Chloride Carbon Dioxide BUN Creatinine Glucose POC Glucose 236 H Lactic Acid Calcium Phosphorus Magnesium Direct Bilirubin AST ALT Alkaline Phosphatase Total Creatine Kinase CK-MB (CK-2) CK-MB (CK-2) Rel Index Troponin T C-Reactive Protein Total Protein Albumin Triglycerides Ur Specific [place] Urine Blood Urine WBC (Auto) Urine Creatinine Digoxin Coronavirus (PCR) 04/20/22 04/20/22 04/20/22 04:12 04:12 09:10 WBC RBC Hgb Hct RDW Plt Count Lymph % (Auto) [place] % (Auto) Eos % (Auto) Lymph # (Auto) [place] # (Auto) Eos # (Auto) Seg Neutrophils % Seg Neuts % (Manual) Lymphocytes % (Manual) Eosinophils % (Manual) Seg Neutrophils # Seg Neutrophils # Man Lymphocytes # (Manual) Eosinophils # (Manual) PT Activated Coag Time Heparin Anti-Xa Level ABG pH ABG pO2 ABG HCO3 ABG O2 Saturation ABG Base Excess ABG Hemoglobin Oxyhemoglobin Sodium 133 L Potassium 3.5 L Chloride 91.9 L Carbon Dioxide BUN 44 H Creatinine 4.6 H Glucose 263 H POC Glucose Lactic Acid 2.80 H* Calcium 7.2 L Phosphorus Magnesium Direct Bilirubin AST 553 H ALT 471 H Alkaline Phosphatase Total Creatine Kinase 3019 H CK-MB (CK-2) CK-MB (CK-2) Rel Index Troponin T C-Reactive Protein Total Protein 5.7 L Albumin 2.4 L Triglycerides 254 H Ur Specific [place] Urine Blood Urine WBC (Auto) Urine Creatinine Digoxin Coronavirus (PCR) 04/20/22 04/20/22 04/20/22 09:31 11:18 18:08 WBC RBC Hgb Hct RDW Plt Count Lymph % (Auto) [place] % (Auto) Eos % (Auto) Lymph # (Auto) [place] # (Auto) Eos # (Auto) Seg Neutrophils % Seg Neuts % (Manual) Lymphocytes % (Manual) Eosinophils % (Manual) Seg Neutrophils # Seg Neutrophils # Man Lymphocytes # (Manual) Eosinophils # (Manual) PT Activated Coag Time Heparin Anti-Xa Level ABG pH 7.512 H ABG pO2 ABG HCO3 26.2 H ABG O2 Saturation ABG Base Excess 3.2 H ABG Hemoglobin 9.0 L Oxyhemoglobin Sodium Potassium Chloride Carbon Dioxide BUN Creatinine Glucose POC Glucose 285 H 293 H Lactic Acid Calcium Phosphorus Magnesium Direct Bilirubin AST ALT Alkaline Phosphatase Total Creatine Kinase CK-MB (CK-2) CK-MB (CK-2) Rel Index Troponin T C-Reactive Protein Total Protein Albumin Triglycerides Ur Specific [place] Urine Blood Urine WBC (Auto) Urine Creatinine Digoxin Coronavirus (PCR) 04/20/22 04/21/22 04/21/22 21:40 00:10 04:00 WBC RBC Hgb Hct RDW Plt Count Lymph % (Auto) [place] % (Auto) Eos % (Auto) Lymph # (Auto) [place] # (Auto) Eos # (Auto) Seg Neutrophils % Seg Neuts % (Manual) Lymphocytes % (Manual) Eosinophils % (Manual) Seg Neutrophils # Seg Neutrophils # Man Lymphocytes # (Manual) Eosinophils # (Manual) PT Activated Coag Time Heparin Anti-Xa Level 0.16 L ABG pH ABG pO2 59.4 L ABG HCO3 29.7 H ABG O2 Saturation 90.1 L ABG Base Excess 3.1 H ABG Hemoglobin 11.6 L Oxyhemoglobin 88.2 L Sodium Potassium Chloride Carbon Dioxide BUN Creatinine Glucose POC Glucose 290 H Lactic Acid Calcium Phosphorus Magnesium Direct Bilirubin AST ALT Alkaline Phosphatase Total Creatine Kinase CK-MB (CK-2) CK-MB (CK-2) Rel Index Troponin T C-Reactive Protein Total Protein Albumin Triglycerides Ur Specific [place] Urine Blood Urine WBC (Auto) Urine Creatinine Digoxin Coronavirus (PCR) 04/21/22 04/21/22 04/21/22 04:30 04:30 05:57 WBC 17.9 H RBC Hgb 11.7 L Hct 35.1 L RDW Plt Count Lymph % (Auto) [place] % (Auto) Eos % (Auto) Lymph # (Auto) [place] # (Auto) Eos # (Auto) Seg Neutrophils % Seg Neuts % (Manual) Lymphocytes % (Manual) Eosinophils % (Manual) Seg Neutrophils # Seg Neutrophils # Man Lymphocytes # (Manual) Eosinophils # (Manual) PT Activated Coag Time Heparin Anti-Xa Level ABG pH ABG pO2 ABG HCO3 ABG O2 Saturation ABG Base Excess ABG Hemoglobin Oxyhemoglobin Sodium Potassium Chloride 95.7 L Carbon Dioxide BUN 45 H Creatinine 4.2 H Glucose 309 H POC Glucose 265 H Lactic Acid Calcium 7.4 L Phosphorus 5.60 H D Magnesium 2.50 H Direct Bilirubin AST 217 H ALT 376 H Alkaline Phosphatase Total Creatine Kinase CK-MB (CK-2) CK-MB (CK-2) Rel Index Troponin T C-Reactive Protein Total Protein Albumin 2.8 L Triglycerides Ur Specific [place] Urine Blood Urine WBC (Auto) Urine Creatinine Digoxin Coronavirus (PCR) 04/21/22 04/21/22 04/21/22 12:14 13:45 18:10 WBC RBC Hgb Hct RDW Plt Count Lymph % (Auto) [place] % (Auto) Eos % (Auto) Lymph # (Auto) [place] # (Auto) Eos # (Auto) Seg Neutrophils % Seg Neuts % (Manual) Lymphocytes % (Manual) Eosinophils % (Manual) Seg Neutrophils # Seg Neutrophils # Man Lymphocytes # (Manual) Eosinophils # (Manual) PT Activated Coag Time 179 H Heparin Anti-Xa Level ABG pH ABG pO2 ABG HCO3 ABG O2 Saturation ABG Base Excess ABG Hemoglobin Oxyhemoglobin Sodium Potassium Chloride Carbon Dioxide BUN Creatinine Glucose POC Glucose 248 H 240 H Lactic Acid Calcium Phosphorus Magnesium Direct Bilirubin AST ALT Alkaline Phosphatase Total Creatine Kinase CK-MB (CK-2) CK-MB (CK-2) Rel Index Troponin T C-Reactive Protein Total Protein Albumin Triglycerides Ur Specific [place] Urine Blood Urine WBC (Auto) Urine Creatinine Digoxin Coronavirus (PCR) 04/22/22 04/22/22 04/22/22 00:09 04:00 04:33 WBC 12.4 H RBC 3.34 L Hgb 9.8 L Hct 29.7 L RDW Plt Count 138 L Lymph % (Auto) [place] % (Auto) Eos % (Auto) Lymph # (Auto) [place] # (Auto) Eos # (Auto) Seg Neutrophils % Seg Neuts % (Manual) Lymphocytes % (Manual) Eosinophils % (Manual) Seg Neutrophils # Seg Neutrophils # Man Lymphocytes # (Manual) Eosinophils # (Manual) PT Activated Coag Time Heparin Anti-Xa Level ABG pH ABG pO2 ABG HCO3 ABG O2 Saturation ABG Base Excess ABG Hemoglobin Oxyhemoglobin Sodium Potassium Chloride Carbon Dioxide BUN 40 H Creatinine 2.9 H Glucose 269 H POC Glucose 248 H Lactic Acid Calcium 7.3 L Phosphorus Magnesium Direct Bilirubin AST ALT Alkaline Phosphatase Total Creatine Kinase 973 H CK-MB (CK-2) CK-MB (CK-2) Rel Index Troponin T C-Reactive Protein Total Protein Albumin Triglycerides Ur Specific [place] Urine Blood Urine WBC (Auto) Urine Creatinine Digoxin Coronavirus (PCR) 04/22/22 04/22/22 04/22/22 10:13 11:51 18:02 WBC RBC Hgb Hct RDW Plt Count Lymph % (Auto) [place] % (Auto) Eos % (Auto) Lymph # (Auto) [place] # (Auto) Eos # (Auto) Seg Neutrophils % Seg Neuts % (Manual) Lymphocytes % (Manual) Eosinophils % (Manual) Seg Neutrophils # Seg Neutrophils # Man Lymphocytes # (Manual) Eosinophils # (Manual) PT Activated Coag Time Heparin Anti-Xa Level ABG pH ABG pO2 56.1 L ABG HCO3 28.4 H ABG O2 Saturation 89.3 L ABG Base Excess ABG Hemoglobin 9.8 L Oxyhemoglobin 87.7 L Sodium Potassium Chloride Carbon Dioxide BUN Creatinine Glucose POC Glucose 302 H 266 H Lactic Acid Calcium Phosphorus Magnesium Direct Bilirubin AST ALT Alkaline Phosphatase Total Creatine Kinase CK-MB (CK-2) CK-MB (CK-2) Rel Index Troponin T C-Reactive Protein Total Protein Albumin Triglycerides Ur Specific [place] Urine Blood Urine WBC (Auto) Urine Creatinine Digoxin Coronavirus (PCR) 04/22/22 04/22/22 04/23/22 21:18 23:30 04:19 WBC RBC 3.34 L Hgb 9.9 L Hct 29.9 L RDW Plt Count Lymph % (Auto) [place] % (Auto) Eos % (Auto) Lymph # (Auto) [place] # (Auto) Eos # (Auto) Seg Neutrophils % Seg Neuts % (Manual) 74.0 H Lymphocytes % (Manual) 10.0 L Eosinophils % (Manual) 7.0 H Seg Neutrophils # Seg Neutrophils # Man 8.0 H Lymphocytes # (Manual) 1.1 L Eosinophils # (Manual) 0.8 H PT Activated Coag Time Heparin Anti-Xa Level ABG pH ABG pO2 ABG HCO3 ABG O2 Saturation ABG Base Excess ABG Hemoglobin Oxyhemoglobin Sodium Potassium Chloride Carbon Dioxide BUN Creatinine Glucose POC Glucose 299 H 299 H Lactic Acid Calcium Phosphorus Magnesium Direct Bilirubin AST ALT Alkaline Phosphatase Total Creatine Kinase CK-MB (CK-2) CK-MB (CK-2) Rel Index Troponin T C-Reactive Protein Total Protein Albumin Triglycerides Ur Specific [place] Urine Blood Urine WBC (Auto) Urine Creatinine Digoxin Coronavirus (PCR) 04/23/22 04/23/22 04/23/22 04:19 05:24 11:20 WBC RBC Hgb Hct RDW Plt Count Lymph % (Auto) [place] % (Auto) Eos % (Auto) Lymph # (Auto) [place] # (Auto) Eos # (Auto) Seg Neutrophils % Seg Neuts % (Manual) Lymphocytes % (Manual) Eosinophils % (Manual) Seg Neutrophils # Seg Neutrophils # Man Lymphocytes # (Manual) Eosinophils # (Manual) PT Activated Coag Time Heparin Anti-Xa Level ABG pH ABG pO2 ABG HCO3 ABG O2 Saturation ABG Base Excess ABG Hemoglobin Oxyhemoglobin Sodium Potassium 3.5 L Chloride Carbon Dioxide BUN 30 H Creatinine 2.3 H Glucose 289 H POC Glucose 271 H 302 H Lactic Acid Calcium 7.8 L Phosphorus Magnesium Direct Bilirubin AST 46 H ALT 158 H Alkaline Phosphatase 138 H Total Creatine Kinase CK-MB (CK-2) CK-MB (CK-2) Rel Index Troponin T C-Reactive Protein Total Protein 6.2 L Albumin 2.6 L Triglycerides 230 H Ur Specific [place] Urine Blood Urine WBC (Auto) Urine Creatinine Digoxin Coronavirus (PCR) 04/23/22 04/23/22 04/23/22 18:07 18:20 21:14 WBC RBC Hgb Hct RDW Plt Count Lymph % (Auto) [place] % (Auto) Eos % (Auto) Lymph # (Auto) [place] # (Auto) Eos # (Auto) Seg Neutrophils % Seg Neuts % (Manual) Lymphocytes % (Manual) Eosinophils % (Manual) Seg Neutrophils # Seg Neutrophils # Man Lymphocytes # (Manual) Eosinophils # (Manual) PT Activated Coag Time Heparin Anti-Xa Level ABG pH ABG pO2 ABG HCO3 31.6 H ABG O2 Saturation ABG Base Excess 4.8 H ABG Hemoglobin 18.3 H Oxyhemoglobin 94.8 L Sodium Potassium Chloride Carbon Dioxide BUN Creatinine Glucose POC Glucose 228 H 175 H Lactic Acid Calcium Phosphorus Magnesium Direct Bilirubin AST ALT Alkaline Phosphatase Total Creatine Kinase CK-MB (CK-2) CK-MB (CK-2) Rel Index Troponin T C-Reactive Protein Total Protein Albumin Triglycerides Ur Specific [place] Urine Blood Urine WBC (Auto) Urine Creatinine Digoxin Coronavirus (PCR) 04/23/22 04/24/22 04/24/22 23:24 04:35 04:47 WBC RBC Hgb Hct RDW Plt Count Lymph % (Auto) [place] % (Auto) Eos % (Auto) Lymph # (Auto) [place] # (Auto) Eos # (Auto) Seg Neutrophils % Seg Neuts % (Manual) Lymphocytes % (Manual) Eosinophils % (Manual) Seg Neutrophils # Seg Neutrophils # Man Lymphocytes # (Manual) Eosinophils # (Manual) PT Activated Coag Time Heparin Anti-Xa Level ABG pH ABG pO2 ABG HCO3 31.5 H ABG O2 Saturation ABG Base Excess 6.1 H ABG Hemoglobin 10.3 L Oxyhemoglobin Sodium Potassium Chloride Carbon Dioxide BUN Creatinine Glucose POC Glucose 168 H 177 H Lactic Acid Calcium Phosphorus Magnesium Direct Bilirubin AST ALT Alkaline Phosphatase Total Creatine Kinase CK-MB (CK-2) CK-MB (CK-2) Rel Index Troponin T C-Reactive Protein Total Protein Albumin Triglycerides Ur Specific [place] Urine Blood Urine WBC (Auto) Urine Creatinine Digoxin Coronavirus (PCR) 04/24/22 04/24/22 04/24/22 06:00 06:00 12:45 WBC 14.0 H RBC 3.57 L Hgb 10.1 L Hct 31.9 L RDW Plt Count Lymph % (Auto) 4.7 L [place] % (Auto) 8.8 H Eos % (Auto) 6.0 H Lymph # (Auto) 0.7 L [place] # (Auto) 1.2 H Eos # (Auto) 0.8 H Seg Neutrophils % 80.5 H Seg Neuts % (Manual) Lymphocytes % (Manual) Eosinophils % (Manual) Seg Neutrophils # 11.3 H Seg Neutrophils # Man Lymphocytes # (Manual) Eosinophils # (Manual) PT Activated Coag Time Heparin Anti-Xa Level ABG pH ABG pO2 ABG HCO3 ABG O2 Saturation ABG Base Excess ABG Hemoglobin Oxyhemoglobin Sodium Potassium 3.4 L Chloride Carbon Dioxide BUN 25 H Creatinine 1.8 H Glucose 218 H POC Glucose 227 H Lactic Acid Calcium 8.2 L Phosphorus Magnesium Direct Bilirubin AST ALT 99 H Alkaline Phosphatase 141 H Total Creatine Kinase CK-MB (CK-2) CK-MB (CK-2) Rel Index Troponin T C-Reactive Protein Total Protein 6.2 L Albumin 2.2 L Triglycerides Ur Specific [place] Urine Blood Urine WBC (Auto) Urine Creatinine Digoxin Coronavirus (PCR) 04/24/22 04/24/22 04/24/22 17:57 21:19 23:24 WBC RBC Hgb Hct RDW Plt Count Lymph % (Auto) [place] % (Auto) Eos % (Auto) Lymph # (Auto) [place] # (Auto) Eos # (Auto) Seg Neutrophils % Seg Neuts % (Manual) Lymphocytes % (Manual) Eosinophils % (Manual) Seg Neutrophils # Seg Neutrophils # Man Lymphocytes # (Manual) Eosinophils # (Manual) PT Activated Coag Time Heparin Anti-Xa Level ABG pH ABG pO2 ABG HCO3 ABG O2 Saturation ABG Base Excess ABG Hemoglobin Oxyhemoglobin Sodium Potassium Chloride Carbon Dioxide BUN Creatinine Glucose POC Glucose 207 H 186 H 203 H Lactic Acid Calcium Phosphorus Magnesium Direct Bilirubin AST ALT Alkaline Phosphatase Total Creatine Kinase CK-MB (CK-2) CK-MB (CK-2) Rel Index Troponin T C-Reactive Protein Total Protein Albumin Triglycerides Ur Specific [place] Urine Blood Urine WBC (Auto) Urine Creatinine Digoxin Coronavirus (PCR) 04/25/22 04/25/22 04/25/22 03:30 03:30 04:38 WBC 19.7 H RBC 3.39 L Hgb 9.8 L Hct 30.2 L RDW 15.6 H Plt Count Lymph % (Auto) 4.7 L [place] % (Auto) Eos % (Auto) 5.0 H Lymph # (Auto) 0.9 L [place] # (Auto) 1.2 H Eos # (Auto) 1.0 H Seg Neutrophils % 84.0 H Seg Neuts % (Manual) Lymphocytes % (Manual) Eosinophils % (Manual) Seg Neutrophils # 16.5 H Seg Neutrophils # Man Lymphocytes # (Manual) Eosinophils # (Manual) PT Activated Coag Time Heparin Anti-Xa Level ABG pH ABG pO2 ABG HCO3 ABG O2 Saturation ABG Base Excess ABG Hemoglobin Oxyhemoglobin Sodium 151 H Potassium 3.5 L Chloride 108.6 H Carbon Dioxide 31 H BUN 27 H Creatinine 1.9 H Glucose 144 H POC Glucose 135 H Lactic Acid Calcium 8.3 L Phosphorus Magnesium Direct Bilirubin AST ALT Alkaline Phosphatase Total Creatine Kinase CK-MB (CK-2) CK-MB (CK-2) Rel Index Troponin T C-Reactive Protein Total Protein Albumin Triglycerides Ur Specific [place] Urine Blood Urine WBC (Auto) Urine Creatinine Digoxin Coronavirus (PCR) 04/25/22 04/25/22 04/25/22 05:09 12:12 17:58 WBC RBC Hgb Hct RDW Plt Count Lymph % (Auto) [place] % (Auto) Eos % (Auto) Lymph # (Auto) [place] # (Auto) Eos # (Auto) Seg Neutrophils % Seg Neuts % (Manual) Lymphocytes % (Manual) Eosinophils % (Manual) Seg Neutrophils # Seg Neutrophils # Man Lymphocytes # (Manual) Eosinophils # (Manual) PT Activated Coag Time Heparin Anti-Xa Level ABG pH ABG pO2 ABG HCO3 32.2 H ABG O2 Saturation ABG Base Excess 6.7 H ABG Hemoglobin 9.9 L Oxyhemoglobin 94.9 L Sodium Potassium Chloride Carbon Dioxide BUN Creatinine Glucose POC Glucose 218 H 229 H Lactic Acid Calcium Phosphorus Magnesium Direct Bilirubin AST ALT Alkaline Phosphatase Total Creatine Kinase CK-MB (CK-2) CK-MB (CK-2) Rel Index Troponin T C-Reactive Protein Total Protein Albumin Triglycerides Ur Specific [place] Urine Blood Urine WBC (Auto) Urine Creatinine Digoxin Coronavirus (PCR) 04/25/22 04/25/22 04/26/22 18:00 23:48 05:20 WBC RBC Hgb 9.4 L Hct 30.1 L RDW Plt Count Lymph % (Auto) [place] % (Auto) Eos % (Auto) Lymph # (Auto) [place] # (Auto) Eos # (Auto) Seg Neutrophils % Seg Neuts % (Manual) Lymphocytes % (Manual) Eosinophils % (Manual) Seg Neutrophils # Seg Neutrophils # Man Lymphocytes # (Manual) Eosinophils # (Manual) PT Activated Coag Time Heparin Anti-Xa Level ABG pH ABG pO2 ABG HCO3 32.4 H ABG O2 Saturation ABG Base Excess 6.8 H ABG Hemoglobin 9.5 L Oxyhemoglobin Sodium Potassium Chloride Carbon Dioxide BUN Creatinine Glucose POC Glucose 214 H Lactic Acid Calcium Phosphorus Magnesium Direct Bilirubin AST ALT Alkaline Phosphatase Total Creatine Kinase CK-MB (CK-2) CK-MB (CK-2) Rel Index Troponin T C-Reactive Protein Total Protein Albumin Triglycerides Ur Specific [place] Urine Blood Urine WBC (Auto) Urine Creatinine Digoxin Coronavirus (PCR) 04/26/22 04/26/22 04/26/22 05:20 05:51 11:39 WBC RBC Hgb Hct RDW Plt Count Lymph % (Auto) [place] % (Auto) Eos % (Auto) Lymph # (Auto) [place] # (Auto) Eos # (Auto) Seg Neutrophils % Seg Neuts % (Manual) Lymphocytes % (Manual) Eosinophils % (Manual) Seg Neutrophils # Seg Neutrophils # Man Lymphocytes # (Manual) Eosinophils # (Manual) PT Activated Coag Time Heparin Anti-Xa Level ABG pH ABG pO2 ABG HCO3 ABG O2 Saturation ABG Base Excess ABG Hemoglobin Oxyhemoglobin Sodium 147 H Potassium Chloride Carbon Dioxide 33 H BUN 27 H Creatinine 1.6 H Glucose 221 H POC Glucose 227 H 263 H Lactic Acid Calcium Phosphorus Magnesium Direct Bilirubin AST ALT Alkaline Phosphatase Total Creatine Kinase CK-MB (CK-2) CK-MB (CK-2) Rel Index Troponin T C-Reactive Protein Total Protein Albumin Triglycerides Ur Specific [place] Urine Blood Urine WBC (Auto) Urine Creatinine Digoxin Coronavirus (PCR) 04/26/22 04/26/22 04/27/22 16:22 23:14 04:00 WBC RBC Hgb Hct RDW Plt Count Lymph % (Auto) [place] % (Auto) Eos % (Auto) Lymph # (Auto) [place] # (Auto) Eos # (Auto) Seg Neutrophils % Seg Neuts % (Manual) Lymphocytes % (Manual) Eosinophils % (Manual) Seg Neutrophils # Seg Neutrophils # Man Lymphocytes # (Manual) Eosinophils # (Manual) PT Activated Coag Time Heparin Anti-Xa Level ABG pH ABG pO2 ABG HCO3 ABG O2 Saturation ABG Base Excess ABG Hemoglobin Oxyhemoglobin Sodium Potassium Chloride Carbon Dioxide BUN 23 H Creatinine 1.4 H Glucose 231 H POC Glucose 250 H 221 H Lactic Acid Calcium 8.3 L Phosphorus Magnesium Direct Bilirubin AST 45 H ALT Alkaline Phosphatase 180 H Total Creatine Kinase CK-MB (CK-2) CK-MB (CK-2) Rel Index Troponin T C-Reactive Protein Total Protein Albumin 2.1 L Triglycerides Ur Specific [place] Urine Blood Urine WBC (Auto) Urine Creatinine Digoxin Coronavirus (PCR) 04/27/22 04/27/22 04/27/22 04:00 05:25 11:08 WBC 20.1 H RBC 3.28 L Hgb 9.5 L Hct 29.3 L RDW Plt Count Lymph % (Auto) 5.9 L [place] % (Auto) 8.0 H Eos % (Auto) 5.5 H Lymph # (Auto) [place] # (Auto) 1.6 H Eos # (Auto) 1.1 H Seg Neutrophils % 80.3 H Seg Neuts % (Manual) Lymphocytes % (Manual) Eosinophils % (Manual) Seg Neutrophils # 16.2 H Seg Neutrophils # Man Lymphocytes # (Manual) Eosinophils # (Manual) PT Activated Coag Time Heparin Anti-Xa Level ABG pH ABG pO2 ABG HCO3 ABG O2 Saturation ABG Base Excess ABG Hemoglobin Oxyhemoglobin Sodium Potassium Chloride Carbon Dioxide BUN Creatinine Glucose POC Glucose 234 H 224 H Lactic Acid Calcium Phosphorus Magnesium Direct Bilirubin AST ALT Alkaline Phosphatase Total Creatine Kinase CK-MB (CK-2) CK-MB (CK-2) Rel Index Troponin T C-Reactive Protein Total Protein Albumin Triglycerides Ur Specific [place] Urine Blood Urine WBC (Auto) Urine Creatinine Digoxin Coronavirus (PCR) 04/28/22 04/28/22 04/28/22 00:01 05:25 05:28 WBC 16.1 H RBC 3.32 L Hgb 9.4 L Hct 29.9 L RDW Plt Count Lymph % (Auto) [place] % (Auto) Eos % (Auto) Lymph # (Auto) [place] # (Auto) Eos # (Auto) Seg Neutrophils % Seg Neuts % (Manual) Lymphocytes % (Manual) Eosinophils % (Manual) Seg Neutrophils # Seg Neutrophils # Man Lymphocytes # (Manual) Eosinophils # (Manual) PT Activated Coag Time Heparin Anti-Xa Level ABG pH 7.489 H ABG pO2 72.5 L ABG HCO3 27.8 H ABG O2 Saturation ABG Base Excess 4.3 H ABG Hemoglobin 9.2 L Oxyhemoglobin 94.6 L Sodium Potassium Chloride Carbon Dioxide BUN Creatinine Glucose POC Glucose 189 H Lactic Acid Calcium Phosphorus Magnesium Direct Bilirubin AST ALT Alkaline Phosphatase Total Creatine Kinase CK-MB (CK-2) CK-MB (CK-2) Rel Index Troponin T C-Reactive Protein Total Protein Albumin Triglycerides Ur Specific [place] Urine Blood Urine WBC (Auto) Urine Creatinine Digoxin Coronavirus (PCR) 04/28/22 04/28/22 04/28/22 05:28 05:44 08:20 WBC RBC Hgb Hct RDW Plt Count Lymph % (Auto) [place] % (Auto) Eos % (Auto) Lymph # (Auto) [place] # (Auto) Eos # (Auto) Seg Neutrophils % Seg Neuts % (Manual) Lymphocytes % (Manual) Eosinophils % (Manual) Seg Neutrophils # Seg Neutrophils # Man Lymphocytes # (Manual) Eosinophils # (Manual) PT Activated Coag Time Heparin Anti-Xa Level ABG pH ABG pO2 ABG HCO3 ABG O2 Saturation ABG Base Excess ABG Hemoglobin Oxyhemoglobin Sodium Potassium Chloride Carbon Dioxide BUN 22 H Creatinine 1.4 H Glucose 179 H POC Glucose 181 H Lactic Acid Calcium 8.2 L Phosphorus Magnesium Direct Bilirubin AST ALT Alkaline Phosphatase Total Creatine Kinase CK-MB (CK-2) CK-MB (CK-2) Rel Index Troponin T C-Reactive Protein 15.30 H Total Protein Albumin Triglycerides Ur Specific [place] Urine Blood Urine WBC (Auto) Urine Creatinine Digoxin Coronavirus (PCR) 04/28/22 04/28/22 04/28/22 08:35 11:13 12:07 WBC RBC Hgb Hct RDW Plt Count Lymph % (Auto) [place] % (Auto) Eos % (Auto) Lymph # (Auto) [place] # (Auto) Eos # (Auto) Seg Neutrophils % Seg Neuts % (Manual) Lymphocytes % (Manual) Eosinophils % (Manual) Seg Neutrophils # Seg Neutrophils # Man Lymphocytes # (Manual) Eosinophils # (Manual) PT Activated Coag Time Heparin Anti-Xa Level ABG pH 7.203 L ABG pO2 43.7 L ABG HCO3 27.7 H ABG O2 Saturation 63.0 L ABG Base Excess ABG Hemoglobin 10.6 L Oxyhemoglobin 61.6 L Sodium Potassium Chloride Carbon Dioxide BUN Creatinine Glucose POC Glucose 131 H Lactic Acid Calcium Phosphorus Magnesium Direct Bilirubin AST ALT Alkaline Phosphatase Total Creatine Kinase CK-MB (CK-2) CK-MB (CK-2) Rel Index Troponin T C-Reactive Protein Total Protein Albumin Triglycerides Ur Specific [place] 1.000 L Urine Blood Urine WBC (Auto) 21.0 H Urine Creatinine Digoxin Coronavirus (PCR) 04/28/22 04/28/22 04/29/22 16:20 16:27 00:32 WBC RBC Hgb Hct RDW Plt Count Lymph % (Auto) [place] % (Auto) Eos % (Auto) Lymph # (Auto) [place] # (Auto) Eos # (Auto) Seg Neutrophils % Seg Neuts % (Manual) Lymphocytes % (Manual) Eosinophils % (Manual) Seg Neutrophils # Seg Neutrophils # Man Lymphocytes # (Manual) Eosinophils # (Manual) PT Activated Coag Time Heparin Anti-Xa Level ABG pH 7.461 H ABG pO2 99.9 H ABG HCO3 28.0 H ABG O2 Saturation ABG Base Excess 3.9 H ABG Hemoglobin 7.7 L Oxyhemoglobin Sodium Potassium Chloride Carbon Dioxide BUN Creatinine Glucose POC Glucose 136 H 205 H Lactic Acid Calcium Phosphorus Magnesium Direct Bilirubin AST ALT Alkaline Phosphatase Total Creatine Kinase CK-MB (CK-2) CK-MB (CK-2) Rel Index Troponin T C-Reactive Protein Total Protein Albumin Triglycerides Ur Specific [place] Urine Blood Urine WBC (Auto) Urine Creatinine Digoxin Coronavirus (PCR) 04/29/22 04/29/22 04/29/22 02:35 03:20 04:20 WBC 19.8 H RBC 3.17 L Hgb 9.0 L Hct 27.9 L RDW Plt Count 481 H Lymph % (Auto) 5.7 L [place] % (Auto) 7.8 H Eos % (Auto) Lymph # (Auto) 1.1 L [place] # (Auto) 1.5 H Eos # (Auto) 0.8 H Seg Neutrophils % 82.0 H Seg Neuts % (Manual) Lymphocytes % (Manual) Eosinophils % (Manual) Seg Neutrophils # 16.3 H Seg Neutrophils # Man Lymphocytes # (Manual) Eosinophils # (Manual) PT Activated Coag Time Heparin Anti-Xa Level ABG pH 7.487 H ABG pO2 176.1 H ABG HCO3 27.6 H ABG O2 Saturation 99.2 H ABG Base Excess 4.0 H ABG Hemoglobin 9.6 L Oxyhemoglobin Sodium Potassium Chloride Carbon Dioxide BUN Creatinine Glucose POC Glucose 223 H Lactic Acid Calcium Phosphorus Magnesium Direct Bilirubin AST ALT Alkaline Phosphatase Total Creatine Kinase CK-MB (CK-2) CK-MB (CK-2) Rel Index Troponin T C-Reactive Protein Total Protein Albumin Triglycerides Ur Specific [place] Urine Blood Urine WBC (Auto) Urine Creatinine Digoxin Coronavirus (PCR) 04/29/22 04/29/22 04/29/22 04:20 05:43 09:38 WBC RBC Hgb Hct RDW Plt Count Lymph % (Auto) [place] % (Auto) Eos % (Auto) Lymph # (Auto) [place] # (Auto) Eos # (Auto) Seg Neutrophils % Seg Neuts % (Manual) Lymphocytes % (Manual) Eosinophils % (Manual) Seg Neutrophils # Seg Neutrophils # Man Lymphocytes # (Manual) Eosinophils # (Manual) PT Activated Coag Time Heparin Anti-Xa Level ABG pH ABG pO2 ABG HCO3 ABG O2 Saturation ABG Base Excess ABG Hemoglobin Oxyhemoglobin Sodium Potassium Chloride Carbon Dioxide BUN 30 H Creatinine 1.6 H Glucose 236 H POC Glucose 202 H Lactic Acid Calcium 8.1 L Phosphorus Magnesium Direct Bilirubin AST 143 H ALT 105 H Alkaline Phosphatase 210 H Total Creatine Kinase CK-MB (CK-2) CK-MB (CK-2) Rel Index Troponin T C-Reactive Protein Total Protein 6.2 L Albumin 2.0 L Triglycerides Ur Specific [place] Urine Blood Urine WBC (Auto) Urine Creatinine Digoxin Coronavirus (PCR) Positive A 04/29/22 04/29/22 04/29/22 12:08 18:14 21:11 WBC RBC Hgb Hct RDW Plt Count Lymph % (Auto) [place] % (Auto) Eos % (Auto) Lymph # (Auto) [place] # (Auto) Eos # (Auto) Seg Neutrophils % Seg Neuts % (Manual) Lymphocytes % (Manual) Eosinophils % (Manual) Seg Neutrophils # Seg Neutrophils # Man Lymphocytes # (Manual) Eosinophils # (Manual) PT Activated Coag Time Heparin Anti-Xa Level ABG pH ABG pO2 ABG HCO3 ABG O2 Saturation ABG Base Excess ABG Hemoglobin Oxyhemoglobin Sodium Potassium Chloride Carbon Dioxide BUN Creatinine Glucose POC Glucose 152 H 151 H 140 H Lactic Acid Calcium Phosphorus Magnesium Direct Bilirubin AST ALT Alkaline Phosphatase Total Creatine Kinase CK-MB (CK-2) CK-MB (CK-2) Rel Index Troponin T C-Reactive Protein Total Protein Albumin Triglycerides Ur Specific [place] Urine Blood Urine WBC (Auto) Urine Creatinine Digoxin Coronavirus (PCR) 04/29/22 04/30/22 04/30/22 23:58 04:25 04:25 WBC 13.3 H RBC 2.81 L Hgb 8.0 L Hct 24.4 L RDW Plt Count 441 H Lymph % (Auto) [place] % (Auto) Eos % (Auto) Lymph # (Auto) [place] # (Auto) Eos # (Auto) Seg Neutrophils % Seg Neuts % (Manual) Lymphocytes % (Manual) Eosinophils % (Manual) Seg Neutrophils # Seg Neutrophils # Man Lymphocytes # (Manual) Eosinophils # (Manual) PT Activated Coag Time Heparin Anti-Xa Level ABG pH ABG pO2 ABG HCO3 ABG O2 Saturation ABG Base Excess ABG Hemoglobin Oxyhemoglobin Sodium Potassium 3.2 L Chloride Carbon Dioxide BUN 26 H Creatinine 1.5 H Glucose 105 H POC Glucose 135 H Lactic Acid Calcium 8.0 L Phosphorus Magnesium Direct Bilirubin 0.3 H AST 138 H ALT 94 H Alkaline Phosphatase 172 H Total Creatine Kinase CK-MB (CK-2) CK-MB (CK-2) Rel Index Troponin T C-Reactive Protein Total Protein 5.5 L Albumin 2.0 L Triglycerides Ur Specific [place] Urine Blood Urine WBC (Auto) Urine Creatinine Digoxin Coronavirus (PCR) 04/30/22 04/30/22 04/30/22 04:25 05:20 10:19 WBC RBC Hgb Hct RDW Plt Count Lymph % (Auto) [place] % (Auto) Eos % (Auto) Lymph # (Auto) [place] # (Auto) Eos # (Auto) Seg Neutrophils % Seg Neuts % (Manual) Lymphocytes % (Manual) Eosinophils % (Manual) Seg Neutrophils # Seg Neutrophils # Man Lymphocytes # (Manual) Eosinophils # (Manual) PT Activated Coag Time Heparin Anti-Xa Level ABG pH 7.514 H ABG pO2 73.4 L ABG HCO3 28.1 H ABG O2 Saturation ABG Base Excess 4.8 H ABG Hemoglobin 7.8 L Oxyhemoglobin 94.9 L Sodium Potassium 3.3 L Chloride Carbon Dioxide BUN 26 H Creatinine 1.4 H Glucose 108 H POC Glucose Lactic Acid Calcium 7.5 L Phosphorus Magnesium Direct Bilirubin AST 183 H ALT 112 H Alkaline Phosphatase 175 H Total Creatine Kinase CK-MB (CK-2) CK-MB (CK-2) Rel Index Troponin T C-Reactive Protein Total Protein 5.0 L Albumin 2.1 L Triglycerides Ur Specific [place] Urine Blood Urine WBC (Auto) Urine Creatinine Digoxin 0.6 L Coronavirus (PCR) 04/30/22 04/30/22 04/30/22 12:46 17:37 21:18 WBC RBC Hgb Hct RDW Plt Count Lymph % (Auto) [place] % (Auto) Eos % (Auto) Lymph # (Auto) [place] # (Auto) Eos # (Auto) Seg Neutrophils % Seg Neuts % (Manual) Lymphocytes % (Manual) Eosinophils % (Manual) Seg Neutrophils # Seg Neutrophils # Man Lymphocytes # (Manual) Eosinophils # (Manual) PT Activated Coag Time Heparin Anti-Xa Level ABG pH ABG pO2 ABG HCO3 ABG O2 Saturation ABG Base Excess ABG Hemoglobin Oxyhemoglobin Sodium Potassium Chloride Carbon Dioxide BUN Creatinine Glucose POC Glucose 109 H 143 H 182 H Lactic Acid Calcium Phosphorus Magnesium Direct Bilirubin AST ALT Alkaline Phosphatase Total Creatine Kinase CK-MB (CK-2) CK-MB (CK-2) Rel Index Troponin T C-Reactive Protein Total Protein Albumin Triglycerides Ur Specific [place] Urine Blood Urine WBC (Auto) Urine Creatinine Digoxin Coronavirus (PCR) 04/30/22 05/01/22 05/01/22 23:41 04:00 04:44 WBC 16.9 H RBC 3.03 L Hgb 8.7 L Hct 26.7 L RDW Plt Count 566 H Lymph % (Auto) [place] % (Auto) Eos % (Auto) Lymph # (Auto) [place] # (Auto) Eos # (Auto) Seg Neutrophils % Seg Neuts % (Manual) Lymphocytes % (Manual) Eosinophils % (Manual) Seg Neutrophils # Seg Neutrophils # Man Lymphocytes # (Manual) Eosinophils # (Manual) PT Activated Coag Time Heparin Anti-Xa Level ABG pH ABG pO2 ABG HCO3 ABG O2 Saturation ABG Base Excess ABG Hemoglobin Oxyhemoglobin Sodium Potassium Chloride 107.1 H Carbon Dioxide BUN 33 H Creatinine 1.5 H Glucose 161 H POC Glucose 196 H Lactic Acid Calcium 8.0 L Phosphorus Magnesium Direct Bilirubin AST 137 H ALT 111 H Alkaline Phosphatase 183 H Total Creatine Kinase CK-MB (CK-2) CK-MB (CK-2) Rel Index Troponin T C-Reactive Protein Total Protein Albumin 2.1 L Triglycerides 214 H Ur Specific [place] Urine Blood Urine WBC (Auto) Urine Creatinine Digoxin Coronavirus (PCR) 05/01/22 05/01/22 05/01/22 05:07 09:40 12:16 WBC RBC Hgb Hct RDW Plt Count Lymph % (Auto) [place] % (Auto) Eos % (Auto) Lymph # (Auto) [place] # (Auto) Eos # (Auto) Seg Neutrophils % Seg Neuts % (Manual) Lymphocytes % (Manual) Eosinophils % (Manual) Seg Neutrophils # Seg Neutrophils # Man Lymphocytes # (Manual) Eosinophils # (Manual) PT Activated Coag Time Heparin Anti-Xa Level ABG pH 7.496 H ABG pO2 72.8 L ABG HCO3 26.7 H ABG O2 Saturation ABG Base Excess ABG Hemoglobin 8.5 L Oxyhemoglobin Sodium Potassium Chloride Carbon Dioxide BUN Creatinine Glucose POC Glucose 145 H Lactic Acid Calcium Phosphorus Magnesium Direct Bilirubin AST ALT Alkaline Phosphatase Total Creatine Kinase CK-MB (CK-2) CK-MB (CK-2) Rel Index Troponin T C-Reactive Protein Total Protein Albumin Triglycerides Ur Specific [place] Urine Blood Urine WBC (Auto) Urine Creatinine Digoxin 0.5 L Coronavirus (PCR) 05/01/22 05/01/22 05/01/22 12:17 14:30 16:14 WBC RBC Hgb Hct RDW Plt Count Lymph % (Auto) [place] % (Auto) Eos % (Auto) Lymph # (Auto) [place] # (Auto) Eos # (Auto) Seg Neutrophils % Seg Neuts % (Manual) Lymphocytes % (Manual) Eosinophils % (Manual) Seg Neutrophils # Seg Neutrophils # Man Lymphocytes # (Manual) Eosinophils # (Manual) PT Activated Coag Time Heparin Anti-Xa Level ABG pH ABG pO2 ABG HCO3 26.2 H ABG O2 Saturation ABG Base Excess ABG Hemoglobin 7.8 L Oxyhemoglobin Sodium Potassium Chloride Carbon Dioxide BUN Creatinine Glucose POC Glucose 232 H 220 H Lactic Acid Calcium Phosphorus Magnesium Direct Bilirubin AST ALT Alkaline Phosphatase Total Creatine Kinase CK-MB (CK-2) CK-MB (CK-2) Rel Index Troponin T C-Reactive Protein Total Protein Albumin Triglycerides Ur Specific [place] Urine Blood Urine WBC (Auto) Urine Creatinine Digoxin Coronavirus (PCR) 05/01/22 05/01/22 05/02/22 21:59 23:45 04:45 WBC RBC Hgb Hct RDW Plt Count Lymph % (Auto) [place] % (Auto) Eos % (Auto) Lymph # (Auto) [place] # (Auto) Eos # (Auto) Seg Neutrophils % Seg Neuts % (Manual) Lymphocytes % (Manual) Eosinophils % (Manual) Seg Neutrophils # Seg Neutrophils # Man Lymphocytes # (Manual) Eosinophils # (Manual) PT Activated Coag Time Heparin Anti-Xa Level ABG pH ABG pO2 ABG HCO3 ABG O2 Saturation ABG Base Excess ABG Hemoglobin 9.3 L Oxyhemoglobin Sodium Potassium Chloride Carbon Dioxide BUN Creatinine Glucose POC Glucose 251 H 203 H Lactic Acid Calcium Phosphorus Magnesium Direct Bilirubin AST ALT Alkaline Phosphatase Total Creatine Kinase CK-MB (CK-2) CK-MB (CK-2) Rel Index Troponin T C-Reactive Protein Total Protein Albumin Triglycerides Ur Specific [place] Urine Blood Urine WBC (Auto) Urine Creatinine Digoxin Coronavirus (PCR) 05/02/22 05/02/22 05/02/22 04:47 04:59 04:59 WBC 17.9 H RBC 3.06 L Hgb 8.6 L Hct 26.7 L RDW 15.5 H Plt Count 597 H Lymph % (Auto) [place] % (Auto) Eos % (Auto) Lymph # (Auto) [place] # (Auto) Eos # (Auto) Seg Neutrophils % Seg Neuts % (Manual) Lymphocytes % (Manual) Eosinophils % (Manual) Seg Neutrophils # Seg Neutrophils # Man Lymphocytes # (Manual) Eosinophils # (Manual) PT Activated Coag Time Heparin Anti-Xa Level ABG pH ABG pO2 ABG HCO3 ABG O2 Saturation ABG Base Excess ABG Hemoglobin Oxyhemoglobin Sodium 147 H Potassium Chloride 111.5 H Carbon Dioxide BUN 36 H Creatinine Glucose 136 H POC Glucose 120 H Lactic Acid Calcium 8.0 L Phosphorus Magnesium Direct Bilirubin AST 73 H ALT 90 H Alkaline Phosphatase 171 H Total Creatine Kinase CK-MB (CK-2) CK-MB (CK-2) Rel Index Troponin T C-Reactive Protein Total Protein Albumin 2.3 L Triglycerides Ur Specific [place] Urine Blood Urine WBC (Auto) Urine Creatinine Digoxin Coronavirus (PCR) 05/02/22 05/02/22 05/02/22 11:59 16:29 22:10 WBC RBC Hgb Hct RDW Plt Count Lymph % (Auto) [place] % (Auto) Eos % (Auto) Lymph # (Auto) [place] # (Auto) Eos # (Auto) Seg Neutrophils % Seg Neuts % (Manual) Lymphocytes % (Manual) Eosinophils % (Manual) Seg Neutrophils # Seg Neutrophils # Man Lymphocytes # (Manual) Eosinophils # (Manual) PT Activated Coag Time Heparin Anti-Xa Level ABG pH ABG pO2 ABG HCO3 ABG O2 Saturation ABG Base Excess ABG Hemoglobin Oxyhemoglobin Sodium Potassium Chloride Carbon Dioxide BUN Creatinine Glucose POC Glucose 212 H 193 H 147 H Lactic Acid Calcium Phosphorus Magnesium Direct Bilirubin AST ALT Alkaline Phosphatase Total Creatine Kinase CK-MB (CK-2) CK-MB (CK-2) Rel Index Troponin T C-Reactive Protein Total Protein Albumin Triglycerides Ur Specific [place] Urine Blood Urine WBC (Auto) Urine Creatinine Digoxin Coronavirus (PCR) 05/02/22 05/03/22 05/03/22 23:59 04:46 04:46 WBC RBC Hgb Hct RDW Plt Count Lymph % (Auto) [place] % (Auto) Eos % (Auto) Lymph # (Auto) [place] # (Auto) Eos # (Auto) Seg Neutrophils % Seg Neuts % (Manual) Lymphocytes % (Manual) Eosinophils % (Manual) Seg Neutrophils # Seg Neutrophils # Man Lymphocytes # (Manual) Eosinophils # (Manual) PT Activated Coag Time Heparin Anti-Xa Level ABG pH ABG pO2 ABG HCO3 ABG O2 Saturation ABG Base Excess ABG Hemoglobin Oxyhemoglobin Sodium Potassium Chloride 108.3 H Carbon Dioxide BUN 34 H Creatinine Glucose 130 H POC Glucose 145 H Lactic Acid Calcium 7.7 L Phosphorus Magnesium Direct Bilirubin AST 98 H ALT 111 H Alkaline Phosphatase 147 H Total Creatine Kinase CK-MB (CK-2) CK-MB (CK-2) Rel Index Troponin T C-Reactive Protein Total Protein 6.0 L Albumin 1.9 L Triglycerides Ur Specific [place] Urine Blood Urine WBC (Auto) Urine Creatinine Digoxin 0.7 L Coronavirus (PCR) 05/03/22 05/03/22 04:46 05:23 WBC 16.4 H RBC 3.08 L Hgb 8.8 L Hct 27.7 L RDW Plt Count 596 H Lymph % (Auto) [place] % (Auto) Eos % (Auto) Lymph # (Auto) [place] # (Auto) Eos # (Auto) Seg Neutrophils % Seg Neuts % (Manual) Lymphocytes % (Manual) Eosinophils % (Manual) Seg Neutrophils # Seg Neutrophils # Man Lymphocytes # (Manual) Eosinophils # (Manual) PT Activated Coag Time Heparin Anti-Xa Level ABG pH ABG pO2 ABG HCO3 ABG O2 Saturation ABG Base Excess ABG Hemoglobin Oxyhemoglobin Sodium Potassium Chloride Carbon Dioxide BUN Creatinine Glucose POC Glucose 138 H Lactic Acid Calcium Phosphorus Magnesium Direct Bilirubin AST ALT Alkaline Phosphatase Total Creatine Kinase CK-MB (CK-2) CK-MB (CK-2) Rel Index Troponin T C-Reactive Protein Total Protein Albumin Triglycerides Ur Specific [place] Urine Blood Urine WBC (Auto) Urine Creatinine Digoxin Coronavirus (PCR) Allied health notes reviewed: nursing
[2022-05-03] MEDS: REMDESIVIR 100 MG in SODIUM CHLORIDE 0.9% 250ML 250 ML IV SCH (15:45)
[2022-05-03] MEDS: SODIUM CHLORIDE 0.9% 50 ML IVPB IV SCH (15:45)
[2022-05-03] MEDS: DIGOXIN 0.125 MG TAB FEEDTUBE SCH (17:43)
[2022-05-03] MEDS: FUROSEMIDE 20 MG TAB PO SCH (17:44)
[2022-05-03] MEDS: INSULIN GLARGINE 100 UNITS/ML SUB-Q SCH (21:01)
[2022-05-03] MEDS: DOXAZOSIN 1 MG TAB PO SCH (21:01)
[2022-05-04] MEDS: INSULIN LISPRO 100 UNIT/ML SUB-Q SCH ×7 (00:09→21:32)
[2022-05-04] MEDS: CEFEPIME/NS 2 GM/100 ML 2 GM/100 ML BAG IV SCH ×4 (00:10→23:22)
[2022-05-04 04:37] LABS: Alanine Aminotransferase 122 units/L (7-56); Albumin 2.2 g/dL (3.9-5); BUN/Creatinine Ratio 30; Blood Urea Nitrogen 30 mg/dL (9-20); Calcium 8.1 mg/dL (8.4-10.2); Hemolysis Index 86
[2022-05-04] MEDS: FUROSEMIDE 20 MG TAB PO SCH ×2 (05:42→17:11)
[2022-05-04] MEDS: ENOXAPARIN 120 MG/0.8 ML INJ SUB-Q SCH ×2 (09:26→21:40)
[2022-05-04] MEDS: FAMOTIDINE 20 MG TAB FEEDTUBE SCH (09:27)
[2022-05-04] MEDS: ASPIRIN 81 MG TAB CHEW FEEDTUBE SCH (09:27)
[2022-05-04] MEDS: ZINC SULFATE 220 MG CAP PO SCH ×2 (09:27→21:41)
[2022-05-04] MEDS: DOCUSATE SODIUM 100 MG/10 ML ORAL LIQD FEEDTUBE SCH (09:27)
[2022-05-04] MEDS: dexAMETHasone 4 MG/ML VIAL IV SCH (09:27)
[2022-05-04] MEDS: SENNOSIDES/DOCUSATE SODIUM 8.6/50 MG TAB PO SCH ×2 (09:46→21:33)
[2022-05-04] MEDS ORDERED: oxyCODONE /ACETAMINOPHEN 5-325MG TAB PO PRN (10:00)
[2022-05-04] MEDS ORDERED: METOPROLOL TARTRATE 25 MG TAB FEEDTUBE SCH (10:00)
[2022-05-04] MEDS ORDERED: ASCORBIC ACID 500 MG TAB FEEDTUBE SCH (10:00)
--- NOTE | 2022-05-04 11:26 | Progress Note ---
Assessment and Plan Acute hypoxemic respiratory failure Altered mental status Aspiration pneumonia Shock (Cardiogenic +/- Septic) Severe Metabolic Acidosis Morbid Obesity Diabetes type II Hypotension Obesity hypoventilation syndrome - called his and updated her - continue [employer] evaluation - work of breathing bothersome; will continue diuresis but 20mg IV bid X 24 hours then p.o. - will benefit from LTAC evaluation - will benefit from AICD evaluation - use BIPAP prn during the day - continue to watch closely in ICU for now - possible transfer to [facility] - continue digoxin for rhythm control - continue strict I's & O's and target negative fluid balance - continue care as below otherwise; - prn vasopressors for target MAP > 65mmHg - continue to wean supplemental oxygen for target O2 sat's > 90% acutely - aspiration precautions - continue bronchodilators with pulmonary hygiene per RT - avoid nephrotoxins, renally dose all medications - continue accuchecks with glycemic control per SSI (While critically ill target blood glucose of 140-180 mg/dL; avoid hypoglycemia) - continue to avoid benzodiazepine's, reduce the possibility of delirium - AB's per ID rec's (s/p 5 days empiric CAP therapy with Levaquin) - prn analgesia per pain score - Maintenance of sleep-wake cycle, avoid delirium - continue enteral nutritional support at goal rate as tolerated - G.I. & VTE prophylaxis - PT/OT/ROM exercises - continue mobility protocols for pressure ulcer prophylaxis - Monitor hemodynamics closely - continue other care per attending / other consultants - discharge planning ongoing concurrently COVID SPECIFIC INTERVENTIONS - Remdesivir as per ID/Pulmonary developed protocols (received) - continue systemic steroids for severe COVID-19 infection (Dexamethasone X >/= 10 days) - follow repeat COVID tests results - zinc and vitamin C supplementation - Monitor inflammatory markers per facility protocol - ferritin, Ddimer, CRP - therapeutic anticoagulation per system Protocol based on d-dimer and clinical considerations - Continue contact and airborne isolation .... Re-evaluate in am & prn CONDITION: CRITICAL PROGNOSIS: GUARDED CODE STATUS: FULL CODE The high probability of a clinically significant, sudden or life-threatening deterioration of the [respiratory, cardiovascular, renal & neurologic] system(s) required my full and direct attention, intervention and personal management. The aggregate critical care time was [36] minutes without overlap. Time includes spent on; [x] Data Review and interpretation [x] Patient assessment and monitoring of vital signs [x] Documentation [x] Medication orders and management Subjective Date of service: 05/04/22 Principal diagnosis: AHRF; AMS; Pneumonia; Shock; DM II; Severe Metabolic Acidosis Interval history: Patient is seen today for: Acute hypoxemic respiratory failure; AMS; Aspiration pneumonia; Shock (Cardiogenic +/- Septic); DM II; Severe Metabolic Acidosis Seen and examined at bedside; 24hour events reviewed; nursing and respiratory care staff consulted; no adverse overnight events reported to me; resting in bed; doing better; extubated over the weekend; just ate lunch at time of my examination (minimal intake) and work of breathing increased; denies aspiration; does not appear to be aware of degree of SOB; denies chest pains or palpitations; negative 750 mls fluid ba;ance last 24 hours Objective Vital Signs - 12hr 05/04/22 05/04/22 05/04/22 00:00 00:01 00:09 Temperature Pulse Rate 77 68 75 Pulse Rate [ 72 From Monitor] Respiratory 20 34 H 27 H Rate Blood Pressure 142/74 142/74 O2 Sat by Pulse 100 99 99 Oximetry 05/04/22 05/04/22 05/04/22 00:16 01:01 02:01 Temperature 97.4 F L Pulse Rate 64 71 Pulse Rate [ From Monitor] Respiratory 23 22 Rate Blood Pressure 127/70 127/70 O2 Sat by Pulse 100 100 Oximetry 05/04/22 05/04/22 05/04/22 03:01 04:00 04:01 Temperature Pulse Rate 55 L 81 70 Pulse Rate [ 81 From Monitor] Respiratory 23 22 24 Rate Blood Pressure 137/77 143/76 O2 Sat by Pulse 100 100 98 Oximetry 05/04/22 05/04/22 05/04/22 05:01 06:01 07:01 Temperature Pulse Rate 78 69 76 Pulse Rate [ From Monitor] Respiratory 25 H 28 H 30 H Rate Blood Pressure 145/88 145/88 138/81 O2 Sat by Pulse 99 98 96 Oximetry 05/04/22 05/04/22 05/04/22 07:13 07:57 08:00 Temperature 98.7 F Pulse Rate 76 Pulse Rate [ 76 From Monitor] Respiratory 30 H Rate Blood Pressure O2 Sat by Pulse 98 98 Oximetry 05/04/22 05/04/22 05/04/22 08:02 09:01 10:01 Temperature Pulse Rate 78 70 58 L Pulse Rate [ From Monitor] Respiratory 13 28 H 31 H Rate Blood Pressure 138/81 158/89 144/80 O2 Sat by Pulse 97 97 98 Oximetry Constitutional: no acute distress, alert, appears uncomfortable Eyes: non-icteric ENT: oropharynx moist Neck: supple, no lymphadenopathy, no JVD, other (large circumference) Effort: mildly labored Ascultation: Bilateral: diminished breath sounds, rales Percussion: Bilateral: not dull Cardiovascular: irregular rhythm, other (No R/M) Gastrointestinal: normoactive bowel sounds, soft, non-tender, non-distended (protuberant), other (Dunbar catheter) Integumentary: rash (erythematous rash over anterior chest wall and upper extremities-improving) Extremities: no cyanosis, no edema, pulses normal, no ischemia or petechiae, edema (bilateral upper extemities) Neurologic: normal mental status, non-focal exam (grossly), pupils equal and round, CN II-XII normal, motor strength normal and Psychiatric: mood appropriate, affect normal CBC and BMP: 05/03/22 04:46 05/04/22 03:48 ABG, PT/INR, D-dimer: ABG ABG pH 7.442 pH Units (7.350-7.450) 05/02/22 04:45 ABG pCO2 37.8 mm Hg 05/02/22 04:45 ABG pO2 83.1 mm Hg (80.0-90.0) 05/02/22 04:45 ABG O2 Saturation 97.0 % (95.0-99.0) 05/02/22 04:45 PT/INR, D-dimer PT 15.6 Sec. (12.2-14.9) H 04/18/22 Unknown INR 1.08 (0.87-1.13) 04/18/22 Unknown Abnormal lab findings: Abnormal Labs 04/17/22 04/17/22 04/17/22 19:18 19:55 19:56 WBC RBC Hgb Hct RDW Plt Count Lymph % (Auto) [place] % (Auto) Eos % (Auto) Lymph # (Auto) [place] # (Auto) Eos # (Auto) Seg Neutrophils % Seg Neuts % (Manual) Lymphocytes % (Manual) Eosinophils % (Manual) Seg Neutrophils # Seg Neutrophils # Man Lymphocytes # (Manual) Eosinophils # (Manual) PT Activated Coag Time Heparin Anti-Xa Level ABG pH 7.120 L* ABG pO2 45.3 L ABG HCO3 18.5 L ABG O2 Saturation 68.3 L ABG Base Excess -11.5 L ABG Hemoglobin Oxyhemoglobin 66.8 L Sodium Potassium Chloride 94.2 L Carbon Dioxide 17 L BUN Creatinine 1.6 H Glucose 315 H POC Glucose 277 H Lactic Acid Calcium Phosphorus Magnesium Direct Bilirubin AST 529 H ALT 318 H Alkaline Phosphatase 137 H Total Creatine Kinase 398 H CK-MB (CK-2) 17.9 H CK-MB (CK-2) Rel Index 4.4 H Troponin T 0.205 H* C-Reactive Protein Total Protein Albumin Triglycerides Ur Specific [place] Urine Blood Urine WBC (Auto) Urine Creatinine Digoxin Coronavirus (PCR) 04/17/22 04/17/22 04/17/22 19:58 19:58 21:42 WBC 11.9 H RBC 5.17 H Hgb 15.5 H Hct 48.0 H RDW Plt Count Lymph % (Auto) [place] % (Auto) Eos % (Auto) Lymph # (Auto) [place] # (Auto) Eos # (Auto) Seg Neutrophils % 71.7 H Seg Neuts % (Manual) Lymphocytes % (Manual) Eosinophils % (Manual) Seg Neutrophils # 8.5 H Seg Neutrophils # Man Lymphocytes # (Manual) Eosinophils # (Manual) PT Activated Coag Time Heparin Anti-Xa Level ABG pH ABG pO2 ABG HCO3 ABG O2 Saturation ABG Base Excess ABG Hemoglobin Oxyhemoglobin Sodium Potassium Chloride 95.0 L Carbon Dioxide 19 L BUN Creatinine 1.5 H Glucose 306 H POC Glucose Lactic Acid Calcium Phosphorus Magnesium Direct Bilirubin AST ALT Alkaline Phosphatase Total Creatine Kinase 412 H CK-MB (CK-2) 19.2 H CK-MB (CK-2) Rel Index 4.6 H Troponin T 0.285 H* D C-Reactive Protein Total Protein Albumin Triglycerides Ur Specific [place] Urine Blood Urine WBC (Auto) Urine Creatinine Digoxin Coronavirus (PCR) 04/17/22 04/18/22 04/18/22 21:42 00:40 01:07 WBC RBC Hgb Hct RDW Plt Count Lymph % (Auto) [place] % (Auto) Eos % (Auto) Lymph # (Auto) [place] # (Auto) Eos # (Auto) Seg Neutrophils % Seg Neuts % (Manual) Lymphocytes % (Manual) Eosinophils % (Manual) Seg Neutrophils # Seg Neutrophils # Man Lymphocytes # (Manual) Eosinophils # (Manual) PT Activated Coag Time Heparin Anti-Xa Level ABG pH ABG pO2 ABG HCO3 ABG O2 Saturation ABG Base Excess ABG Hemoglobin Oxyhemoglobin Sodium Potassium Chloride Carbon Dioxide BUN Creatinine Glucose POC Glucose 320 H Lactic Acid 7.90 H* 7.90 H* Calcium Phosphorus Magnesium Direct Bilirubin AST ALT Alkaline Phosphatase Total Creatine Kinase CK-MB (CK-2) CK-MB (CK-2) Rel Index Troponin T C-Reactive Protein Total Protein Albumin Triglycerides Ur Specific [place] Urine Blood Urine WBC (Auto) Urine Creatinine Digoxin Coronavirus (PCR) 04/18/22 04/18/22 04/18/22 01:07 04:00 06:04 WBC RBC Hgb Hct RDW Plt Count Lymph % (Auto) [place] % (Auto) Eos % (Auto) Lymph # (Auto) [place] # (Auto) Eos # (Auto) Seg Neutrophils % Seg Neuts % (Manual) Lymphocytes % (Manual) Eosinophils % (Manual) Seg Neutrophils # Seg Neutrophils # Man Lymphocytes # (Manual) Eosinophils # (Manual) PT Activated Coag Time Heparin Anti-Xa Level < 0.10 L ABG pH ABG pO2 ABG HCO3 ABG O2 Saturation ABG Base Excess ABG Hemoglobin Oxyhemoglobin Sodium Potassium Chloride Carbon Dioxide BUN Creatinine Glucose POC Glucose 305 H Lactic Acid Calcium Phosphorus Magnesium Direct Bilirubin AST ALT Alkaline Phosphatase Total Creatine Kinase 488 H CK-MB (CK-2) 25.3 H CK-MB (CK-2) Rel Index 5.1 H Troponin T 0.665 H* D C-Reactive Protein Total Protein Albumin Triglycerides Ur Specific [place] Urine Blood Urine WBC (Auto) Urine Creatinine Digoxin Coronavirus (PCR) 04/18/22 04/18/22 04/18/22 06:20 11:10 12:48 WBC RBC Hgb Hct RDW Plt Count Lymph % (Auto) [place] % (Auto) Eos % (Auto) Lymph # (Auto) [place] # (Auto) Eos # (Auto) Seg Neutrophils % Seg Neuts % (Manual) Lymphocytes % (Manual) Eosinophils % (Manual) Seg Neutrophils # Seg Neutrophils # Man Lymphocytes # (Manual) Eosinophils # (Manual) PT Activated Coag Time Heparin Anti-Xa Level < 0.10 L ABG pH 7.119 L* 7.304 L ABG pO2 56.1 L 103.5 H ABG HCO3 18.4 L 14.4 L ABG O2 Saturation 80.7 L ABG Base Excess -11.4 L -10.6 L ABG Hemoglobin 13.5 L Oxyhemoglobin 79.2 L Sodium Potassium Chloride Carbon Dioxide BUN Creatinine Glucose POC Glucose Lactic Acid Calcium Phosphorus Magnesium Direct Bilirubin AST ALT Alkaline Phosphatase Total Creatine Kinase CK-MB (CK-2) CK-MB (CK-2) Rel Index Troponin T C-Reactive Protein Total Protein Albumin Triglycerides Ur Specific [place] Urine Blood Urine WBC (Auto) Urine Creatinine Digoxin Coronavirus (PCR) 04/18/22 04/18/22 04/18/22 13:13 16:00 16:00 WBC RBC Hgb Hct RDW Plt Count Lymph % (Auto) [place] % (Auto) Eos % (Auto) Lymph # (Auto) [place] # (Auto) Eos # (Auto) Seg Neutrophils % Seg Neuts % (Manual) Lymphocytes % (Manual) Eosinophils % (Manual) Seg Neutrophils # Seg Neutrophils # Man Lymphocytes # (Manual) Eosinophils # (Manual) PT Activated Coag Time Heparin Anti-Xa Level ABG pH ABG pO2 ABG HCO3 ABG O2 Saturation ABG Base Excess ABG Hemoglobin Oxyhemoglobin Sodium Potassium Chloride Carbon Dioxide BUN Creatinine Glucose POC Glucose 334 H Lactic Acid 7.00 H* Calcium Phosphorus 5.70 H Magnesium 1.30 L Direct Bilirubin AST ALT Alkaline Phosphatase Total Creatine Kinase 969 H CK-MB (CK-2) 55.9 H CK-MB (CK-2) Rel Index 5.7 H Troponin T 1.580 H* D C-Reactive Protein Total Protein Albumin Triglycerides Ur Specific [place] Urine Blood Urine WBC (Auto) Urine Creatinine Digoxin Coronavirus (PCR) 04/18/22 04/18/22 04/18/22 16:00 18:00 18:01 WBC RBC Hgb Hct RDW Plt Count Lymph % (Auto) [place] % (Auto) Eos % (Auto) Lymph # (Auto) [place] # (Auto) Eos # (Auto) Seg Neutrophils % Seg Neuts % (Manual) Lymphocytes % (Manual) Eosinophils % (Manual) Seg Neutrophils # Seg Neutrophils # Man Lymphocytes # (Manual) Eosinophils # (Manual) PT Activated Coag Time Heparin Anti-Xa Level < 0.10 L ABG pH ABG pO2 ABG HCO3 ABG O2 Saturation ABG Base Excess ABG Hemoglobin Oxyhemoglobin Sodium 136 L Potassium 6.3 H* D Chloride 97.6 L Carbon Dioxide 18 L BUN 34 H Creatinine 3.5 H Glucose 409 H POC Glucose 397 H Lactic Acid Calcium 6.8 L Phosphorus Magnesium Direct Bilirubin AST ALT Alkaline Phosphatase Total Creatine Kinase CK-MB (CK-2) CK-MB (CK-2) Rel Index Troponin T C-Reactive Protein Total Protein Albumin Triglycerides Ur Specific [place] Urine Blood Urine WBC (Auto) Urine Creatinine Digoxin Coronavirus (PCR) 04/18/22 04/18/22 04/18/22 19:13 20:58 21:22 WBC RBC Hgb Hct RDW Plt Count Lymph % (Auto) [place] % (Auto) Eos % (Auto) Lymph # (Auto) [place] # (Auto) Eos # (Auto) Seg Neutrophils % Seg Neuts % (Manual) Lymphocytes % (Manual) Eosinophils % (Manual) Seg Neutrophils # Seg Neutrophils # Man Lymphocytes # (Manual) Eosinophils # (Manual) PT Activated Coag Time Heparin Anti-Xa Level ABG pH 7.502 H ABG pO2 144.5 H ABG HCO3 ABG O2 Saturation ABG Base Excess ABG Hemoglobin 12.5 L Oxyhemoglobin Sodium Potassium Chloride Carbon Dioxide BUN Creatinine Glucose POC Glucose 321 H 307 H Lactic Acid Calcium Phosphorus Magnesium Direct Bilirubin AST ALT Alkaline Phosphatase Total Creatine Kinase CK-MB (CK-2) CK-MB (CK-2) Rel Index Troponin T C-Reactive Protein Total Protein Albumin Triglycerides Ur Specific [place] Urine Blood Urine WBC (Auto) Urine Creatinine Digoxin Coronavirus (PCR) 04/18/22 04/18/22 04/18/22 21:30 21:30 Unknown WBC RBC Hgb Hct RDW Plt Count Lymph % (Auto) [place] % (Auto) Eos % (Auto) Lymph # (Auto) [place] # (Auto) Eos # (Auto) Seg Neutrophils % Seg Neuts % (Manual) 81.0 H Lymphocytes % (Manual) 12.0 L Eosinophils % (Manual) Seg Neutrophils # 9.8 H Seg Neutrophils # Man 8.7 H Lymphocytes # (Manual) Eosinophils # (Manual) PT Activated Coag Time Heparin Anti-Xa Level ABG pH ABG pO2 ABG HCO3 ABG O2 Saturation ABG Base Excess ABG Hemoglobin Oxyhemoglobin Sodium Potassium Chloride 96.6 L Carbon Dioxide BUN 37 H Creatinine 3.6 H Glucose 312 H POC Glucose Lactic Acid 5.50 H* Calcium 7.3 L Phosphorus Magnesium Direct Bilirubin AST ALT Alkaline Phosphatase Total Creatine Kinase CK-MB (CK-2) CK-MB (CK-2) Rel Index Troponin T C-Reactive Protein Total Protein Albumin Triglycerides Ur Specific [place] Urine Blood Urine WBC (Auto) Urine Creatinine Digoxin Coronavirus (PCR) 04/18/22 04/18/22 04/19/22 Unknown Unknown 00:35 WBC RBC Hgb Hct RDW Plt Count Lymph % (Auto) [place] % (Auto) Eos % (Auto) Lymph # (Auto) [place] # (Auto) Eos # (Auto) Seg Neutrophils % Seg Neuts % (Manual) Lymphocytes % (Manual) Eosinophils % (Manual) Seg Neutrophils # Seg Neutrophils # Man Lymphocytes # (Manual) Eosinophils # (Manual) PT 15.6 H Activated Coag Time Heparin Anti-Xa Level ABG pH ABG pO2 ABG HCO3 ABG O2 Saturation ABG Base Excess ABG Hemoglobin Oxyhemoglobin Sodium Potassium Chloride Carbon Dioxide 18 L BUN 26 H Creatinine 2.5 H D Glucose 330 H POC Glucose Lactic Acid Calcium 7.9 L Phosphorus Magnesium Direct Bilirubin AST 463 H ALT 249 H Alkaline Phosphatase Total Creatine Kinase CK-MB (CK-2) CK-MB (CK-2) Rel Index Troponin T 2.670 H* D C-Reactive Protein Total Protein Albumin 3.3 L Triglycerides Ur Specific [place] Urine Blood Urine WBC (Auto) Urine Creatinine Digoxin Coronavirus (PCR) 04/19/22 04/19/22 04/19/22 00:39 02:08 02:08 WBC RBC Hgb Hct RDW Plt Count Lymph % (Auto) [place] % (Auto) Eos % (Auto) Lymph # (Auto) [place] # (Auto) Eos # (Auto) Seg Neutrophils % Seg Neuts % (Manual) Lymphocytes % (Manual) Eosinophils % (Manual) Seg Neutrophils # Seg Neutrophils # Man Lymphocytes # (Manual) Eosinophils # (Manual) PT Activated Coag Time Heparin Anti-Xa Level ABG pH ABG pO2 ABG HCO3 ABG O2 Saturation ABG Base Excess ABG Hemoglobin Oxyhemoglobin Sodium Potassium Chloride Carbon Dioxide BUN Creatinine Glucose POC Glucose 263 H Lactic Acid Calcium Phosphorus Magnesium Direct Bilirubin AST ALT Alkaline Phosphatase Total Creatine Kinase CK-MB (CK-2) CK-MB (CK-2) Rel Index Troponin T C-Reactive Protein Total Protein Albumin Triglycerides Ur Specific [place] Urine Blood Large A Urine WBC (Auto) 88.0 H Urine Creatinine 90.9 H Digoxin Coronavirus (PCR) 08/07/22 08/07/22 08/07/22 02:08 03:45 03:45 WBC 14.2 H RBC Hgb Hct RDW Plt Count Lymph % (Auto) [place] % (Auto) Eos % (Auto) Lymph # (Auto) [place] # (Auto) Eos # (Auto) Seg Neutrophils % Seg Neuts % (Manual) Lymphocytes % (Manual) Eosinophils % (Manual) Seg Neutrophils # Seg Neutrophils # Man Lymphocytes # (Manual) Eosinophils # (Manual) PT Activated Coag Time Heparin Anti-Xa Level 0.18 L ABG pH ABG pO2 ABG HCO3 ABG O2 Saturation ABG Base Excess ABG Hemoglobin Oxyhemoglobin Sodium Potassium Chloride 94.2 L Carbon Dioxide BUN 39 H Creatinine 3.8 H Glucose 243 H POC Glucose Lactic Acid Calcium 7.1 L Phosphorus Magnesium 1.50 L Direct Bilirubin AST 380 H ALT 289 H Alkaline Phosphatase Total Creatine Kinase CK-MB (CK-2) CK-MB (CK-2) Rel Index Troponin T C-Reactive Protein Total Protein 5.4 L Albumin 2.5 L Triglycerides Ur Specific [place] Urine Blood Urine WBC (Auto) Urine Creatinine Digoxin Coronavirus (PCR) 04/19/22 04/19/22 04/19/22 03:45 06:01 07:11 WBC RBC Hgb Hct RDW Plt Count Lymph % (Auto) [place] % (Auto) Eos % (Auto) Lymph # (Auto) [place] # (Auto) Eos # (Auto) Seg Neutrophils % Seg Neuts % (Manual) Lymphocytes % (Manual) Eosinophils % (Manual) Seg Neutrophils # Seg Neutrophils # Man Lymphocytes # (Manual) Eosinophils # (Manual) PT Activated Coag Time Heparin Anti-Xa Level ABG pH ABG pO2 ABG HCO3 ABG O2 Saturation ABG Base Excess ABG Hemoglobin Oxyhemoglobin Sodium Potassium Chloride Carbon Dioxide BUN Creatinine Glucose POC Glucose 165 H Lactic Acid 4.00 H* Calcium Phosphorus Magnesium Direct Bilirubin AST ALT Alkaline Phosphatase Total Creatine Kinase 3270 H CK-MB (CK-2) 28.5 H CK-MB (CK-2) Rel Index Troponin T 2.980 H* C-Reactive Protein Total Protein Albumin Triglycerides Ur Specific [place] Urine Blood Urine WBC (Auto) Urine Creatinine Digoxin Coronavirus (PCR) 04/19/22 04/19/22 04/19/22 07:50 08:50 12:49 WBC RBC Hgb Hct RDW Plt Count Lymph % (Auto) [place] % (Auto) Eos % (Auto) Lymph # (Auto) [place] # (Auto) Eos # (Auto) Seg Neutrophils % Seg Neuts % (Manual) Lymphocytes % (Manual) Eosinophils % (Manual) Seg Neutrophils # Seg Neutrophils # Man Lymphocytes # (Manual) Eosinophils # (Manual) PT Activated Coag Time Heparin Anti-Xa Level ABG pH 7.471 H ABG pO2 58.9 L ABG HCO3 27.1 H ABG O2 Saturation 91.7 L ABG Base Excess 3.4 H ABG Hemoglobin 12.2 L Oxyhemoglobin 90.0 L Sodium Potassium Chloride Carbon Dioxide BUN Creatinine Glucose POC Glucose 331 H Lactic Acid 3.40 H* Calcium Phosphorus Magnesium Direct Bilirubin AST ALT Alkaline Phosphatase Total Creatine Kinase CK-MB (CK-2) CK-MB (CK-2) Rel Index Troponin T C-Reactive Protein Total Protein Albumin Triglycerides Ur Specific [place] Urine Blood Urine WBC (Auto) Urine Creatinine Digoxin Coronavirus (PCR) 04/19/22 04/19/22 04/19/22 16:15 19:25 21:17 WBC RBC Hgb Hct RDW Plt Count Lymph % (Auto) [place] % (Auto) Eos % (Auto) Lymph # (Auto) [place] # (Auto) Eos # (Auto) Seg Neutrophils % Seg Neuts % (Manual) Lymphocytes % (Manual) Eosinophils % (Manual) Seg Neutrophils # Seg Neutrophils # Man Lymphocytes # (Manual) Eosinophils # (Manual) PT Activated Coag Time Heparin Anti-Xa Level ABG pH ABG pO2 ABG HCO3 ABG O2 Saturation ABG Base Excess ABG Hemoglobin Oxyhemoglobin Sodium Potassium Chloride Carbon Dioxide BUN Creatinine Glucose POC Glucose 304 H 251 H Lactic Acid 4.00 H* Calcium Phosphorus Magnesium Direct Bilirubin AST ALT Alkaline Phosphatase Total Creatine Kinase CK-MB (CK-2) CK-MB (CK-2) Rel Index Troponin T C-Reactive Protein Total Protein Albumin Triglycerides Ur Specific [place] Urine Blood Urine WBC (Auto) Urine Creatinine Digoxin Coronavirus (PCR) 04/19/22 04/20/22 04/20/22 23:00 04:12 04:12 WBC 12.2 H RBC Hgb 11.6 L Hct 35.3 L RDW Plt Count Lymph % (Auto) [place] % (Auto) Eos % (Auto) Lymph # (Auto) [place] # (Auto) Eos # (Auto) Seg Neutrophils % Seg Neuts % (Manual) Lymphocytes % (Manual) Eosinophils % (Manual) Seg Neutrophils # Seg Neutrophils # Man Lymphocytes # (Manual) Eosinophils # (Manual) PT Activated Coag Time Heparin Anti-Xa Level 0.15 L ABG pH ABG pO2 ABG HCO3 ABG O2 Saturation ABG Base Excess ABG Hemoglobin Oxyhemoglobin Sodium Potassium Chloride Carbon Dioxide BUN Creatinine Glucose POC Glucose 236 H Lactic Acid Calcium Phosphorus Magnesium Direct Bilirubin AST ALT Alkaline Phosphatase Total Creatine Kinase CK-MB (CK-2) CK-MB (CK-2) Rel Index Troponin T C-Reactive Protein Total Protein Albumin Triglycerides Ur Specific [place] Urine Blood Urine WBC (Auto) Urine Creatinine Digoxin Coronavirus (PCR) 04/20/22 04/20/22 04/20/22 04:12 04:12 09:10 WBC RBC Hgb Hct RDW Plt Count Lymph % (Auto) [place] % (Auto) Eos % (Auto) Lymph # (Auto) [place] # (Auto) Eos # (Auto) Seg Neutrophils % Seg Neuts % (Manual) Lymphocytes % (Manual) Eosinophils % (Manual) Seg Neutrophils # Seg Neutrophils # Man Lymphocytes # (Manual) Eosinophils # (Manual) PT Activated Coag Time Heparin Anti-Xa Level ABG pH ABG pO2 ABG HCO3 ABG O2 Saturation ABG Base Excess ABG Hemoglobin Oxyhemoglobin Sodium 133 L Potassium 3.5 L Chloride 91.9 L Carbon Dioxide BUN 44 H Creatinine 4.6 H Glucose 263 H POC Glucose Lactic Acid 2.80 H* Calcium 7.2 L Phosphorus Magnesium Direct Bilirubin AST 553 H ALT 471 H Alkaline Phosphatase Total Creatine Kinase 3019 H CK-MB (CK-2) CK-MB (CK-2) Rel Index Troponin T C-Reactive Protein Total Protein 5.7 L Albumin 2.4 L Triglycerides 254 H Ur Specific [place] Urine Blood Urine WBC (Auto) Urine Creatinine Digoxin Coronavirus (PCR) 04/20/22 04/20/22 04/20/22 09:31 11:18 18:08 WBC RBC Hgb Hct RDW Plt Count Lymph % (Auto) [place] % (Auto) Eos % (Auto) Lymph # (Auto) [place] # (Auto) Eos # (Auto) Seg Neutrophils % Seg Neuts % (Manual) Lymphocytes % (Manual) Eosinophils % (Manual) Seg Neutrophils # Seg Neutrophils # Man Lymphocytes # (Manual) Eosinophils # (Manual) PT Activated Coag Time Heparin Anti-Xa Level ABG pH 7.512 H ABG pO2 ABG HCO3 26.2 H ABG O2 Saturation ABG Base Excess 3.2 H ABG Hemoglobin 9.0 L Oxyhemoglobin Sodium Potassium Chloride Carbon Dioxide BUN Creatinine Glucose POC Glucose 285 H 293 H Lactic Acid Calcium Phosphorus Magnesium Direct Bilirubin AST ALT Alkaline Phosphatase Total Creatine Kinase CK-MB (CK-2) CK-MB (CK-2) Rel Index Troponin T C-Reactive Protein Total Protein Albumin Triglycerides Ur Specific [place] Urine Blood Urine WBC (Auto) Urine Creatinine Digoxin Coronavirus (PCR) 04/20/22 04/21/22 04/21/22 21:40 00:10 04:00 WBC RBC Hgb Hct RDW Plt Count Lymph % (Auto) [place] % (Auto) Eos % (Auto) Lymph # (Auto) [place] # (Auto) Eos # (Auto) Seg Neutrophils % Seg Neuts % (Manual) Lymphocytes % (Manual) Eosinophils % (Manual) Seg Neutrophils # Seg Neutrophils # Man Lymphocytes # (Manual) Eosinophils # (Manual) PT Activated Coag Time Heparin Anti-Xa Level 0.16 L ABG pH ABG pO2 59.4 L ABG HCO3 29.7 H ABG O2 Saturation 90.1 L ABG Base Excess 3.1 H ABG Hemoglobin 11.6 L Oxyhemoglobin 88.2 L Sodium Potassium Chloride Carbon Dioxide BUN Creatinine Glucose POC Glucose 290 H Lactic Acid Calcium Phosphorus Magnesium Direct Bilirubin AST ALT Alkaline Phosphatase Total Creatine Kinase CK-MB (CK-2) CK-MB (CK-2) Rel Index Troponin T C-Reactive Protein Total Protein Albumin Triglycerides Ur Specific [place] Urine Blood Urine WBC (Auto) Urine Creatinine Digoxin Coronavirus (PCR) 04/21/22 04/21/22 04/21/22 04:30 04:30 05:57 WBC 17.9 H RBC Hgb 11.7 L Hct 35.1 L RDW Plt Count Lymph % (Auto) [place] % (Auto) Eos % (Auto) Lymph # (Auto) [place] # (Auto) Eos # (Auto) Seg Neutrophils % Seg Neuts % (Manual) Lymphocytes % (Manual) Eosinophils % (Manual) Seg Neutrophils # Seg Neutrophils # Man Lymphocytes # (Manual) Eosinophils # (Manual) PT Activated Coag Time Heparin Anti-Xa Level ABG pH ABG pO2 ABG HCO3 ABG O2 Saturation ABG Base Excess ABG Hemoglobin Oxyhemoglobin Sodium Potassium Chloride 95.7 L Carbon Dioxide BUN 45 H Creatinine 4.2 H Glucose 309 H POC Glucose 265 H Lactic Acid Calcium 7.4 L Phosphorus 5.60 H D Magnesium 2.50 H Direct Bilirubin AST 217 H ALT 376 H Alkaline Phosphatase Total Creatine Kinase CK-MB (CK-2) CK-MB (CK-2) Rel Index Troponin T C-Reactive Protein Total Protein Albumin 2.8 L Triglycerides Ur Specific [place] Urine Blood Urine WBC (Auto) Urine Creatinine Digoxin Coronavirus (PCR) 04/21/22 04/21/22 04/21/22 12:14 13:45 18:10 WBC RBC Hgb Hct RDW Plt Count Lymph % (Auto) [place] % (Auto) Eos % (Auto) Lymph # (Auto) [place] # (Auto) Eos # (Auto) Seg Neutrophils % Seg Neuts % (Manual) Lymphocytes % (Manual) Eosinophils % (Manual) Seg Neutrophils # Seg Neutrophils # Man Lymphocytes # (Manual) Eosinophils # (Manual) PT Activated Coag Time 179 H Heparin Anti-Xa Level ABG pH ABG pO2 ABG HCO3 ABG O2 Saturation ABG Base Excess ABG Hemoglobin Oxyhemoglobin Sodium Potassium Chloride Carbon Dioxide BUN Creatinine Glucose POC Glucose 248 H 240 H Lactic Acid Calcium Phosphorus Magnesium Direct Bilirubin AST ALT Alkaline Phosphatase Total Creatine Kinase CK-MB (CK-2) CK-MB (CK-2) Rel Index Troponin T C-Reactive Protein Total Protein Albumin Triglycerides Ur Specific [place] Urine Blood Urine WBC (Auto) Urine Creatinine Digoxin Coronavirus (PCR) 04/22/22 04/22/22 04/22/22 00:09 04:00 04:33 WBC 12.4 H RBC 3.34 L Hgb 9.8 L Hct 29.7 L RDW Plt Count 138 L Lymph % (Auto) [place] % (Auto) Eos % (Auto) Lymph # (Auto) [place] # (Auto) Eos # (Auto) Seg Neutrophils % Seg Neuts % (Manual) Lymphocytes % (Manual) Eosinophils % (Manual) Seg Neutrophils # Seg Neutrophils # Man Lymphocytes # (Manual) Eosinophils # (Manual) PT Activated Coag Time Heparin Anti-Xa Level ABG pH ABG pO2 ABG HCO3 ABG O2 Saturation ABG Base Excess ABG Hemoglobin Oxyhemoglobin Sodium Potassium Chloride Carbon Dioxide BUN 40 H Creatinine 2.9 H Glucose 269 H POC Glucose 248 H Lactic Acid Calcium 7.3 L Phosphorus Magnesium Direct Bilirubin AST ALT Alkaline Phosphatase Total Creatine Kinase 973 H CK-MB (CK-2) CK-MB (CK-2) Rel Index Troponin T C-Reactive Protein Total Protein Albumin Triglycerides Ur Specific [place] Urine Blood Urine WBC (Auto) Urine Creatinine Digoxin Coronavirus (PCR) 04/22/22 04/22/22 04/22/22 10:13 11:51 18:02 WBC RBC Hgb Hct RDW Plt Count Lymph % (Auto) [place] % (Auto) Eos % (Auto) Lymph # (Auto) [place] # (Auto) Eos # (Auto) Seg Neutrophils % Seg Neuts % (Manual) Lymphocytes % (Manual) Eosinophils % (Manual) Seg Neutrophils # Seg Neutrophils # Man Lymphocytes # (Manual) Eosinophils # (Manual) PT Activated Coag Time Heparin Anti-Xa Level ABG pH ABG pO2 56.1 L ABG HCO3 28.4 H ABG O2 Saturation 89.3 L ABG Base Excess ABG Hemoglobin 9.8 L Oxyhemoglobin 87.7 L Sodium Potassium Chloride Carbon Dioxide BUN Creatinine Glucose POC Glucose 302 H 266 H Lactic Acid Calcium Phosphorus Magnesium Direct Bilirubin AST ALT Alkaline Phosphatase Total Creatine Kinase CK-MB (CK-2) CK-MB (CK-2) Rel Index Troponin T C-Reactive Protein Total Protein Albumin Triglycerides Ur Specific [place] Urine Blood Urine WBC (Auto) Urine Creatinine Digoxin Coronavirus (PCR) 04/22/22 04/22/22 04/23/22 21:18 23:30 04:19 WBC RBC 3.34 L Hgb 9.9 L Hct 29.9 L RDW Plt Count Lymph % (Auto) [place] % (Auto) Eos % (Auto) Lymph # (Auto) [place] # (Auto) Eos # (Auto) Seg Neutrophils % Seg Neuts % (Manual) 74.0 H Lymphocytes % (Manual) 10.0 L Eosinophils % (Manual) 7.0 H Seg Neutrophils # Seg Neutrophils # Man 8.0 H Lymphocytes # (Manual) 1.1 L Eosinophils # (Manual) 0.8 H PT Activated Coag Time Heparin Anti-Xa Level ABG pH ABG pO2 ABG HCO3 ABG O2 Saturation ABG Base Excess ABG Hemoglobin Oxyhemoglobin Sodium Potassium Chloride Carbon Dioxide BUN Creatinine Glucose POC Glucose 299 H 299 H Lactic Acid Calcium Phosphorus Magnesium Direct Bilirubin AST ALT Alkaline Phosphatase Total Creatine Kinase CK-MB (CK-2) CK-MB (CK-2) Rel Index Troponin T C-Reactive Protein Total Protein Albumin Triglycerides Ur Specific [place] Urine Blood Urine WBC (Auto) Urine Creatinine Digoxin Coronavirus (PCR) 04/23/22 04/23/22 04/23/22 04:19 05:24 11:20 WBC RBC Hgb Hct RDW Plt Count Lymph % (Auto) [place] % (Auto) Eos % (Auto) Lymph # (Auto) [place] # (Auto) Eos # (Auto) Seg Neutrophils % Seg Neuts % (Manual) Lymphocytes % (Manual) Eosinophils % (Manual) Seg Neutrophils # Seg Neutrophils # Man Lymphocytes # (Manual) Eosinophils # (Manual) PT Activated Coag Time Heparin Anti-Xa Level ABG pH ABG pO2 ABG HCO3 ABG O2 Saturation ABG Base Excess ABG Hemoglobin Oxyhemoglobin Sodium Potassium 3.5 L Chloride Carbon Dioxide BUN 30 H Creatinine 2.3 H Glucose 289 H POC Glucose 271 H 302 H Lactic Acid Calcium 7.8 L Phosphorus Magnesium Direct Bilirubin AST 46 H ALT 158 H Alkaline Phosphatase 138 H Total Creatine Kinase CK-MB (CK-2) CK-MB (CK-2) Rel Index Troponin T C-Reactive Protein Total Protein 6.2 L Albumin 2.6 L Triglycerides 230 H Ur Specific [place] Urine Blood Urine WBC (Auto) Urine Creatinine Digoxin Coronavirus (PCR) 04/23/22 04/23/22 04/23/22 18:07 18:20 21:14 WBC RBC Hgb Hct RDW Plt Count Lymph % (Auto) [place] % (Auto) Eos % (Auto) Lymph # (Auto) [place] # (Auto) Eos # (Auto) Seg Neutrophils % Seg Neuts % (Manual) Lymphocytes % (Manual) Eosinophils % (Manual) Seg Neutrophils # Seg Neutrophils # Man Lymphocytes # (Manual) Eosinophils # (Manual) PT Activated Coag Time Heparin Anti-Xa Level ABG pH ABG pO2 ABG HCO3 31.6 H ABG O2 Saturation ABG Base Excess 4.8 H ABG Hemoglobin 18.3 H Oxyhemoglobin 94.8 L Sodium Potassium Chloride Carbon Dioxide BUN Creatinine Glucose POC Glucose 228 H 175 H Lactic Acid Calcium Phosphorus Magnesium Direct Bilirubin AST ALT Alkaline Phosphatase Total Creatine Kinase CK-MB (CK-2) CK-MB (CK-2) Rel Index Troponin T C-Reactive Protein Total Protein Albumin Triglycerides Ur Specific [place] Urine Blood Urine WBC (Auto) Urine Creatinine Digoxin Coronavirus (PCR) 04/23/22 04/24/22 04/24/22 23:24 04:35 04:47 WBC RBC Hgb Hct RDW Plt Count Lymph % (Auto) [place] % (Auto) Eos % (Auto) Lymph # (Auto) [place] # (Auto) Eos # (Auto) Seg Neutrophils % Seg Neuts % (Manual) Lymphocytes % (Manual) Eosinophils % (Manual) Seg Neutrophils # Seg Neutrophils # Man Lymphocytes # (Manual) Eosinophils # (Manual) PT Activated Coag Time Heparin Anti-Xa Level ABG pH ABG pO2 ABG HCO3 31.5 H ABG O2 Saturation ABG Base Excess 6.1 H ABG Hemoglobin 10.3 L Oxyhemoglobin Sodium Potassium Chloride Carbon Dioxide BUN Creatinine Glucose POC Glucose 168 H 177 H Lactic Acid Calcium Phosphorus Magnesium Direct Bilirubin AST ALT Alkaline Phosphatase Total Creatine Kinase CK-MB (CK-2) CK-MB (CK-2) Rel Index Troponin T C-Reactive Protein Total Protein Albumin Triglycerides Ur Specific [place] Urine Blood Urine WBC (Auto) Urine Creatinine Digoxin Coronavirus (PCR) 04/24/22 04/24/22 04/24/22 06:00 06:00 12:45 WBC 14.0 H RBC 3.57 L Hgb 10.1 L Hct 31.9 L RDW Plt Count Lymph % (Auto) 4.7 L [place] % (Auto) 8.8 H Eos % (Auto) 6.0 H Lymph # (Auto) 0.7 L [place] # (Auto) 1.2 H Eos # (Auto) 0.8 H Seg Neutrophils % 80.5 H Seg Neuts % (Manual) Lymphocytes % (Manual) Eosinophils % (Manual) Seg Neutrophils # 11.3 H Seg Neutrophils # Man Lymphocytes # (Manual) Eosinophils # (Manual) PT Activated Coag Time Heparin Anti-Xa Level ABG pH ABG pO2 ABG HCO3 ABG O2 Saturation ABG Base Excess ABG Hemoglobin Oxyhemoglobin Sodium Potassium 3.4 L Chloride Carbon Dioxide BUN 25 H Creatinine 1.8 H Glucose 218 H POC Glucose 227 H Lactic Acid Calcium 8.2 L Phosphorus Magnesium Direct Bilirubin AST ALT 99 H Alkaline Phosphatase 141 H Total Creatine Kinase CK-MB (CK-2) CK-MB (CK-2) Rel Index Troponin T C-Reactive Protein Total Protein 6.2 L Albumin 2.2 L Triglycerides Ur Specific [place] Urine Blood Urine WBC (Auto) Urine Creatinine Digoxin Coronavirus (PCR) 04/24/22 04/24/22 04/24/22 17:57 21:19 23:24 WBC RBC Hgb Hct RDW Plt Count Lymph % (Auto) [place] % (Auto) Eos % (Auto) Lymph # (Auto) [place] # (Auto) Eos # (Auto) Seg Neutrophils % Seg Neuts % (Manual) Lymphocytes % (Manual) Eosinophils % (Manual) Seg Neutrophils # Seg Neutrophils # Man Lymphocytes # (Manual) Eosinophils # (Manual) PT Activated Coag Time Heparin Anti-Xa Level ABG pH ABG pO2 ABG HCO3 ABG O2 Saturation ABG Base Excess ABG Hemoglobin Oxyhemoglobin Sodium Potassium Chloride Carbon Dioxide BUN Creatinine Glucose POC Glucose 207 H 186 H 203 H Lactic Acid Calcium Phosphorus Magnesium Direct Bilirubin AST ALT Alkaline Phosphatase Total Creatine Kinase CK-MB (CK-2) CK-MB (CK-2) Rel Index Troponin T C-Reactive Protein Total Protein Albumin Triglycerides Ur Specific [place] Urine Blood Urine WBC (Auto) Urine Creatinine Digoxin Coronavirus (PCR) 04/25/22 04/25/22 04/25/22 03:30 03:30 04:38 WBC 19.7 H RBC 3.39 L Hgb 9.8 L Hct 30.2 L RDW 15.6 H Plt Count Lymph % (Auto) 4.7 L [place] % (Auto) Eos % (Auto) 5.0 H Lymph # (Auto) 0.9 L [place] # (Auto) 1.2 H Eos # (Auto) 1.0 H Seg Neutrophils % 84.0 H Seg Neuts % (Manual) Lymphocytes % (Manual) Eosinophils % (Manual) Seg Neutrophils # 16.5 H Seg Neutrophils # Man Lymphocytes # (Manual) Eosinophils # (Manual) PT Activated Coag Time Heparin Anti-Xa Level ABG pH ABG pO2 ABG HCO3 ABG O2 Saturation ABG Base Excess ABG Hemoglobin Oxyhemoglobin Sodium 151 H Potassium 3.5 L Chloride 108.6 H Carbon Dioxide 31 H BUN 27 H Creatinine 1.9 H Glucose 144 H POC Glucose 135 H Lactic Acid Calcium 8.3 L Phosphorus Magnesium Direct Bilirubin AST ALT Alkaline Phosphatase Total Creatine Kinase CK-MB (CK-2) CK-MB (CK-2) Rel Index Troponin T C-Reactive Protein Total Protein Albumin Triglycerides Ur Specific [place] Urine Blood Urine WBC (Auto) Urine Creatinine Digoxin Coronavirus (PCR) 04/25/22 04/25/22 04/25/22 05:09 12:12 17:58 WBC RBC Hgb Hct RDW Plt Count Lymph % (Auto) [place] % (Auto) Eos % (Auto) Lymph # (Auto) [place] # (Auto) Eos # (Auto) Seg Neutrophils % Seg Neuts % (Manual) Lymphocytes % (Manual) Eosinophils % (Manual) Seg Neutrophils # Seg Neutrophils # Man Lymphocytes # (Manual) Eosinophils # (Manual) PT Activated Coag Time Heparin Anti-Xa Level ABG pH ABG pO2 ABG HCO3 32.2 H ABG O2 Saturation ABG Base Excess 6.7 H ABG Hemoglobin 9.9 L Oxyhemoglobin 94.9 L Sodium Potassium Chloride Carbon Dioxide BUN Creatinine Glucose POC Glucose 218 H 229 H Lactic Acid Calcium Phosphorus Magnesium Direct Bilirubin AST ALT Alkaline Phosphatase Total Creatine Kinase CK-MB (CK-2) CK-MB (CK-2) Rel Index Troponin T C-Reactive Protein Total Protein Albumin Triglycerides Ur Specific [place] Urine Blood Urine WBC (Auto) Urine Creatinine Digoxin Coronavirus (PCR) 04/25/22 04/25/22 04/26/22 18:00 23:48 05:20 WBC RBC Hgb 9.4 L Hct 30.1 L RDW Plt Count Lymph % (Auto) [place] % (Auto) Eos % (Auto) Lymph # (Auto) [place] # (Auto) Eos # (Auto) Seg Neutrophils % Seg Neuts % (Manual) Lymphocytes % (Manual) Eosinophils % (Manual) Seg Neutrophils # Seg Neutrophils # Man Lymphocytes # (Manual) Eosinophils # (Manual) PT Activated Coag Time Heparin Anti-Xa Level ABG pH ABG pO2 ABG HCO3 32.4 H ABG O2 Saturation ABG Base Excess 6.8 H ABG Hemoglobin 9.5 L Oxyhemoglobin Sodium Potassium Chloride Carbon Dioxide BUN Creatinine Glucose POC Glucose 214 H Lactic Acid Calcium Phosphorus Magnesium Direct Bilirubin AST ALT Alkaline Phosphatase Total Creatine Kinase CK-MB (CK-2) CK-MB (CK-2) Rel Index Troponin T C-Reactive Protein Total Protein Albumin Triglycerides Ur Specific [place] Urine Blood Urine WBC (Auto) Urine Creatinine Digoxin Coronavirus (PCR) 04/26/22 04/26/22 04/26/22 05:20 05:51 11:39 WBC RBC Hgb Hct RDW Plt Count Lymph % (Auto) [place] % (Auto) Eos % (Auto) Lymph # (Auto) [place] # (Auto) Eos # (Auto) Seg Neutrophils % Seg Neuts % (Manual) Lymphocytes % (Manual) Eosinophils % (Manual) Seg Neutrophils # Seg Neutrophils # Man Lymphocytes # (Manual) Eosinophils # (Manual) PT Activated Coag Time Heparin Anti-Xa Level ABG pH ABG pO2 ABG HCO3 ABG O2 Saturation ABG Base Excess ABG Hemoglobin Oxyhemoglobin Sodium 147 H Potassium Chloride Carbon Dioxide 33 H BUN 27 H Creatinine 1.6 H Glucose 221 H POC Glucose 227 H 263 H Lactic Acid Calcium Phosphorus Magnesium Direct Bilirubin AST ALT Alkaline Phosphatase Total Creatine Kinase CK-MB (CK-2) CK-MB (CK-2) Rel Index Troponin T C-Reactive Protein Total Protein Albumin Triglycerides Ur Specific [place] Urine Blood Urine WBC (Auto) Urine Creatinine Digoxin Coronavirus (PCR) 04/26/22 04/26/22 04/27/22 16:22 23:14 04:00 WBC RBC Hgb Hct RDW Plt Count Lymph % (Auto) [place] % (Auto) Eos % (Auto) Lymph # (Auto) [place] # (Auto) Eos # (Auto) Seg Neutrophils % Seg Neuts % (Manual) Lymphocytes % (Manual) Eosinophils % (Manual) Seg Neutrophils # Seg Neutrophils # Man Lymphocytes # (Manual) Eosinophils # (Manual) PT Activated Coag Time Heparin Anti-Xa Level ABG pH ABG pO2 ABG HCO3 ABG O2 Saturation ABG Base Excess ABG Hemoglobin Oxyhemoglobin Sodium Potassium Chloride Carbon Dioxide BUN 23 H Creatinine 1.4 H Glucose 231 H POC Glucose 250 H 221 H Lactic Acid Calcium 8.3 L Phosphorus Magnesium Direct Bilirubin AST 45 H ALT Alkaline Phosphatase 180 H Total Creatine Kinase CK-MB (CK-2) CK-MB (CK-2) Rel Index Troponin T C-Reactive Protein Total Protein Albumin 2.1 L Triglycerides Ur Specific [place] Urine Blood Urine WBC (Auto) Urine Creatinine Digoxin Coronavirus (PCR) 04/27/22 04/27/22 04/27/22 04:00 05:25 11:08 WBC 20.1 H RBC 3.28 L Hgb 9.5 L Hct 29.3 L RDW Plt Count Lymph % (Auto) 5.9 L [place] % (Auto) 8.0 H Eos % (Auto) 5.5 H Lymph # (Auto) [place] # (Auto) 1.6 H Eos # (Auto) 1.1 H Seg Neutrophils % 80.3 H Seg Neuts % (Manual) Lymphocytes % (Manual) Eosinophils % (Manual) Seg Neutrophils # 16.2 H Seg Neutrophils # Man Lymphocytes # (Manual) Eosinophils # (Manual) PT Activated Coag Time Heparin Anti-Xa Level ABG pH ABG pO2 ABG HCO3 ABG O2 Saturation ABG Base Excess ABG Hemoglobin Oxyhemoglobin Sodium Potassium Chloride Carbon Dioxide BUN Creatinine Glucose POC Glucose 234 H 224 H Lactic Acid Calcium Phosphorus Magnesium Direct Bilirubin AST ALT Alkaline Phosphatase Total Creatine Kinase CK-MB (CK-2) CK-MB (CK-2) Rel Index Troponin T C-Reactive Protein Total Protein Albumin Triglycerides Ur Specific [place] Urine Blood Urine WBC (Auto) Urine Creatinine Digoxin Coronavirus (PCR) 04/28/22 04/28/22 04/28/22 00:01 05:25 05:28 WBC 16.1 H RBC 3.32 L Hgb 9.4 L Hct 29.9 L RDW Plt Count Lymph % (Auto) [place] % (Auto) Eos % (Auto) Lymph # (Auto) [place] # (Auto) Eos # (Auto) Seg Neutrophils % Seg Neuts % (Manual) Lymphocytes % (Manual) Eosinophils % (Manual) Seg Neutrophils # Seg Neutrophils # Man Lymphocytes # (Manual) Eosinophils # (Manual) PT Activated Coag Time Heparin Anti-Xa Level ABG pH 7.489 H ABG pO2 72.5 L ABG HCO3 27.8 H ABG O2 Saturation ABG Base Excess 4.3 H ABG Hemoglobin 9.2 L Oxyhemoglobin 94.6 L Sodium Potassium Chloride Carbon Dioxide BUN Creatinine Glucose POC Glucose 189 H Lactic Acid Calcium Phosphorus Magnesium Direct Bilirubin AST ALT Alkaline Phosphatase Total Creatine Kinase CK-MB (CK-2) CK-MB (CK-2) Rel Index Troponin T C-Reactive Protein Total Protein Albumin Triglycerides Ur Specific [place] Urine Blood Urine WBC (Auto) Urine Creatinine Digoxin Coronavirus (PCR) 04/28/22 04/28/22 04/28/22 05:28 05:44 08:20 WBC RBC Hgb Hct RDW Plt Count Lymph % (Auto) [place] % (Auto) Eos % (Auto) Lymph # (Auto) [place] # (Auto) Eos # (Auto) Seg Neutrophils % Seg Neuts % (Manual) Lymphocytes % (Manual) Eosinophils % (Manual) Seg Neutrophils # Seg Neutrophils # Man Lymphocytes # (Manual) Eosinophils # (Manual) PT Activated Coag Time Heparin Anti-Xa Level ABG pH ABG pO2 ABG HCO3 ABG O2 Saturation ABG Base Excess ABG Hemoglobin Oxyhemoglobin Sodium Potassium Chloride Carbon Dioxide BUN 22 H Creatinine 1.4 H Glucose 179 H POC Glucose 181 H Lactic Acid Calcium 8.2 L Phosphorus Magnesium Direct Bilirubin AST ALT Alkaline Phosphatase Total Creatine Kinase CK-MB (CK-2) CK-MB (CK-2) Rel Index Troponin T C-Reactive Protein 15.30 H Total Protein Albumin Triglycerides Ur Specific [place] Urine Blood Urine WBC (Auto) Urine Creatinine Digoxin Coronavirus (PCR) 04/28/22 04/28/22 04/28/22 08:35 11:13 12:07 WBC RBC Hgb Hct RDW Plt Count Lymph % (Auto) [place] % (Auto) Eos % (Auto) Lymph # (Auto) [place] # (Auto) Eos # (Auto) Seg Neutrophils % Seg Neuts % (Manual) Lymphocytes % (Manual) Eosinophils % (Manual) Seg Neutrophils # Seg Neutrophils # Man Lymphocytes # (Manual) Eosinophils # (Manual) PT Activated Coag Time Heparin Anti-Xa Level ABG pH 7.203 L ABG pO2 43.7 L ABG HCO3 27.7 H ABG O2 Saturation 63.0 L ABG Base Excess ABG Hemoglobin 10.6 L Oxyhemoglobin 61.6 L Sodium Potassium Chloride Carbon Dioxide BUN Creatinine Glucose POC Glucose 131 H Lactic Acid Calcium Phosphorus Magnesium Direct Bilirubin AST ALT Alkaline Phosphatase Total Creatine Kinase CK-MB (CK-2) CK-MB (CK-2) Rel Index Troponin T C-Reactive Protein Total Protein Albumin Triglycerides Ur Specific [place] 1.000 L Urine Blood Urine WBC (Auto) 21.0 H Urine Creatinine Digoxin Coronavirus (PCR) 04/28/22 04/28/22 04/29/22 16:20 16:27 00:32 WBC RBC Hgb Hct RDW Plt Count Lymph % (Auto) [place] % (Auto) Eos % (Auto) Lymph # (Auto) [place] # (Auto) Eos # (Auto) Seg Neutrophils % Seg Neuts % (Manual) Lymphocytes % (Manual) Eosinophils % (Manual) Seg Neutrophils # Seg Neutrophils # Man Lymphocytes # (Manual) Eosinophils # (Manual) PT Activated Coag Time Heparin Anti-Xa Level ABG pH 7.461 H ABG pO2 99.9 H ABG HCO3 28.0 H ABG O2 Saturation ABG Base Excess 3.9 H ABG Hemoglobin 7.7 L Oxyhemoglobin Sodium Potassium Chloride Carbon Dioxide BUN Creatinine Glucose POC Glucose 136 H 205 H Lactic Acid Calcium Phosphorus Magnesium Direct Bilirubin AST ALT Alkaline Phosphatase Total Creatine Kinase CK-MB (CK-2) CK-MB (CK-2) Rel Index Troponin T C-Reactive Protein Total Protein Albumin Triglycerides Ur Specific [place] Urine Blood Urine WBC (Auto) Urine Creatinine Digoxin Coronavirus (PCR) 04/29/22 04/29/22 04/29/22 02:35 03:20 04:20 WBC 19.8 H RBC 3.17 L Hgb 9.0 L Hct 27.9 L RDW Plt Count 481 H Lymph % (Auto) 5.7 L [place] % (Auto) 7.8 H Eos % (Auto) Lymph # (Auto) 1.1 L [place] # (Auto) 1.5 H Eos # (Auto) 0.8 H Seg Neutrophils % 82.0 H Seg Neuts % (Manual) Lymphocytes % (Manual) Eosinophils % (Manual) Seg Neutrophils # 16.3 H Seg Neutrophils # Man Lymphocytes # (Manual) Eosinophils # (Manual) PT Activated Coag Time Heparin Anti-Xa Level ABG pH 7.487 H ABG pO2 176.1 H ABG HCO3 27.6 H ABG O2 Saturation 99.2 H ABG Base Excess 4.0 H ABG Hemoglobin 9.6 L Oxyhemoglobin Sodium Potassium Chloride Carbon Dioxide BUN Creatinine Glucose POC Glucose 223 H Lactic Acid Calcium Phosphorus Magnesium Direct Bilirubin AST ALT Alkaline Phosphatase Total Creatine Kinase CK-MB (CK-2) CK-MB (CK-2) Rel Index Troponin T C-Reactive Protein Total Protein Albumin Triglycerides Ur Specific [place] Urine Blood Urine WBC (Auto) Urine Creatinine Digoxin Coronavirus (PCR) 04/29/22 04/29/22 04/29/22 04:20 05:43 09:38 WBC RBC Hgb Hct RDW Plt Count Lymph % (Auto) [place] % (Auto) Eos % (Auto) Lymph # (Auto) [place] # (Auto) Eos # (Auto) Seg Neutrophils % Seg Neuts % (Manual) Lymphocytes % (Manual) Eosinophils % (Manual) Seg Neutrophils # Seg Neutrophils # Man Lymphocytes # (Manual) Eosinophils # (Manual) PT Activated Coag Time Heparin Anti-Xa Level ABG pH ABG pO2 ABG HCO3 ABG O2 Saturation ABG Base Excess ABG Hemoglobin Oxyhemoglobin Sodium Potassium Chloride Carbon Dioxide BUN 30 H Creatinine 1.6 H Glucose 236 H POC Glucose 202 H Lactic Acid Calcium 8.1 L Phosphorus Magnesium Direct Bilirubin AST 143 H ALT 105 H Alkaline Phosphatase 210 H Total Creatine Kinase CK-MB (CK-2) CK-MB (CK-2) Rel Index Troponin T C-Reactive Protein Total Protein 6.2 L Albumin 2.0 L Triglycerides Ur Specific [place] Urine Blood Urine WBC (Auto) Urine Creatinine Digoxin Coronavirus (PCR) Positive A 04/29/22 04/29/22 04/29/22 12:08 18:14 21:11 WBC RBC Hgb Hct RDW Plt Count Lymph % (Auto) [place] % (Auto) Eos % (Auto) Lymph # (Auto) [place] # (Auto) Eos # (Auto) Seg Neutrophils % Seg Neuts % (Manual) Lymphocytes % (Manual) Eosinophils % (Manual) Seg Neutrophils # Seg Neutrophils # Man Lymphocytes # (Manual) Eosinophils # (Manual) PT Activated Coag Time Heparin Anti-Xa Level ABG pH ABG pO2 ABG HCO3 ABG O2 Saturation ABG Base Excess ABG Hemoglobin Oxyhemoglobin Sodium Potassium Chloride Carbon Dioxide BUN Creatinine Glucose POC Glucose 152 H 151 H 140 H Lactic Acid Calcium Phosphorus Magnesium Direct Bilirubin AST ALT Alkaline Phosphatase Total Creatine Kinase CK-MB (CK-2) CK-MB (CK-2) Rel Index Troponin T C-Reactive Protein Total Protein Albumin Triglycerides Ur Specific [place] Urine Blood Urine WBC (Auto) Urine Creatinine Digoxin Coronavirus (PCR) 04/29/22 04/30/22 04/30/22 23:58 04:25 04:25 WBC 13.3 H RBC 2.81 L Hgb 8.0 L Hct 24.4 L RDW Plt Count 441 H Lymph % (Auto) [place] % (Auto) Eos % (Auto) Lymph # (Auto) [place] # (Auto) Eos # (Auto) Seg Neutrophils % Seg Neuts % (Manual) Lymphocytes % (Manual) Eosinophils % (Manual) Seg Neutrophils # Seg Neutrophils # Man Lymphocytes # (Manual) Eosinophils # (Manual) PT Activated Coag Time Heparin Anti-Xa Level ABG pH ABG pO2 ABG HCO3 ABG O2 Saturation ABG Base Excess ABG Hemoglobin Oxyhemoglobin Sodium Potassium 3.2 L Chloride Carbon Dioxide BUN 26 H Creatinine 1.5 H Glucose 105 H POC Glucose 135 H Lactic Acid Calcium 8.0 L Phosphorus Magnesium Direct Bilirubin 0.3 H AST 138 H ALT 94 H Alkaline Phosphatase 172 H Total Creatine Kinase CK-MB (CK-2) CK-MB (CK-2) Rel Index Troponin T C-Reactive Protein Total Protein 5.5 L Albumin 2.0 L Triglycerides Ur Specific [place] Urine Blood Urine WBC (Auto) Urine Creatinine Digoxin Coronavirus (PCR) 04/30/22 04/30/22 04/30/22 04:25 05:20 10:19 WBC RBC Hgb Hct RDW Plt Count Lymph % (Auto) [place] % (Auto) Eos % (Auto) Lymph # (Auto) [place] # (Auto) Eos # (Auto) Seg Neutrophils % Seg Neuts % (Manual) Lymphocytes % (Manual) Eosinophils % (Manual) Seg Neutrophils # Seg Neutrophils # Man Lymphocytes # (Manual) Eosinophils # (Manual) PT Activated Coag Time Heparin Anti-Xa Level ABG pH 7.514 H ABG pO2 73.4 L ABG HCO3 28.1 H ABG O2 Saturation ABG Base Excess 4.8 H ABG Hemoglobin 7.8 L Oxyhemoglobin 94.9 L Sodium Potassium 3.3 L Chloride Carbon Dioxide BUN 26 H Creatinine 1.4 H Glucose 108 H POC Glucose Lactic Acid Calcium 7.5 L Phosphorus Magnesium Direct Bilirubin AST 183 H ALT 112 H Alkaline Phosphatase 175 H Total Creatine Kinase CK-MB (CK-2) CK-MB (CK-2) Rel Index Troponin T C-Reactive Protein Total Protein 5.0 L Albumin 2.1 L Triglycerides Ur Specific [place] Urine Blood Urine WBC (Auto) Urine Creatinine Digoxin 0.6 L Coronavirus (PCR) 04/30/22 04/30/22 04/30/22 12:46 17:37 21:18 WBC RBC Hgb Hct RDW Plt Count Lymph % (Auto) [place] % (Auto) Eos % (Auto) Lymph # (Auto) [place] # (Auto) Eos # (Auto) Seg Neutrophils % Seg Neuts % (Manual) Lymphocytes % (Manual) Eosinophils % (Manual) Seg Neutrophils # Seg Neutrophils # Man Lymphocytes # (Manual) Eosinophils # (Manual) PT Activated Coag Time Heparin Anti-Xa Level ABG pH ABG pO2 ABG HCO3 ABG O2 Saturation ABG Base Excess ABG Hemoglobin Oxyhemoglobin Sodium Potassium Chloride Carbon Dioxide BUN Creatinine Glucose POC Glucose 109 H 143 H 182 H Lactic Acid Calcium Phosphorus Magnesium Direct Bilirubin AST ALT Alkaline Phosphatase Total Creatine Kinase CK-MB (CK-2) CK-MB (CK-2) Rel Index Troponin T C-Reactive Protein Total Protein Albumin Triglycerides Ur Specific [place] Urine Blood Urine WBC (Auto) Urine Creatinine Digoxin Coronavirus (PCR) 04/30/22 05/01/22 05/01/22 23:41 04:00 04:44 WBC 16.9 H RBC 3.03 L Hgb 8.7 L Hct 26.7 L RDW Plt Count 566 H Lymph % (Auto) [place] % (Auto) Eos % (Auto) Lymph # (Auto) [place] # (Auto) Eos # (Auto) Seg Neutrophils % Seg Neuts % (Manual) Lymphocytes % (Manual) Eosinophils % (Manual) Seg Neutrophils # Seg Neutrophils # Man Lymphocytes # (Manual) Eosinophils # (Manual) PT Activated Coag Time Heparin Anti-Xa Level ABG pH ABG pO2 ABG HCO3 ABG O2 Saturation ABG Base Excess ABG Hemoglobin Oxyhemoglobin Sodium Potassium Chloride 107.1 H Carbon Dioxide BUN 33 H Creatinine 1.5 H Glucose 161 H POC Glucose 196 H Lactic Acid Calcium 8.0 L Phosphorus Magnesium Direct Bilirubin AST 137 H ALT 111 H Alkaline Phosphatase 183 H Total Creatine Kinase CK-MB (CK-2) CK-MB (CK-2) Rel Index Troponin T C-Reactive Protein Total Protein Albumin 2.1 L Triglycerides 214 H Ur Specific [place] Urine Blood Urine WBC (Auto) Urine Creatinine Digoxin Coronavirus (PCR) 05/01/22 05/01/22 05/01/22 05:07 09:40 12:16 WBC RBC Hgb Hct RDW Plt Count Lymph % (Auto) [place] % (Auto) Eos % (Auto) Lymph # (Auto) [place] # (Auto) Eos # (Auto) Seg Neutrophils % Seg Neuts % (Manual) Lymphocytes % (Manual) Eosinophils % (Manual) Seg Neutrophils # Seg Neutrophils # Man Lymphocytes # (Manual) Eosinophils # (Manual) PT Activated Coag Time Heparin Anti-Xa Level ABG pH 7.496 H ABG pO2 72.8 L ABG HCO3 26.7 H ABG O2 Saturation ABG Base Excess ABG Hemoglobin 8.5 L Oxyhemoglobin Sodium Potassium Chloride Carbon Dioxide BUN Creatinine Glucose POC Glucose 145 H Lactic Acid Calcium Phosphorus Magnesium Direct Bilirubin AST ALT Alkaline Phosphatase Total Creatine Kinase CK-MB (CK-2) CK-MB (CK-2) Rel Index Troponin T C-Reactive Protein Total Protein Albumin Triglycerides Ur Specific [place] Urine Blood Urine WBC (Auto) Urine Creatinine Digoxin 0.5 L Coronavirus (PCR) 05/01/22 05/01/22 05/01/22 12:17 14:30 16:14 WBC RBC Hgb Hct RDW Plt Count Lymph % (Auto) [place] % (Auto) Eos % (Auto) Lymph # (Auto) [place] # (Auto) Eos # (Auto) Seg Neutrophils % Seg Neuts % (Manual) Lymphocytes % (Manual) Eosinophils % (Manual) Seg Neutrophils # Seg Neutrophils # Man Lymphocytes # (Manual) Eosinophils # (Manual) PT Activated Coag Time Heparin Anti-Xa Level ABG pH ABG pO2 ABG HCO3 26.2 H ABG O2 Saturation ABG Base Excess ABG Hemoglobin 7.8 L Oxyhemoglobin Sodium Potassium Chloride Carbon Dioxide BUN Creatinine Glucose POC Glucose 232 H 220 H Lactic Acid Calcium Phosphorus Magnesium Direct Bilirubin AST ALT Alkaline Phosphatase Total Creatine Kinase CK-MB (CK-2) CK-MB (CK-2) Rel Index Troponin T C-Reactive Protein Total Protein Albumin Triglycerides Ur Specific [place] Urine Blood Urine WBC (Auto) Urine Creatinine Digoxin Coronavirus (PCR) 05/01/22 05/01/22 05/02/22 21:59 23:45 04:45 WBC RBC Hgb Hct RDW Plt Count Lymph % (Auto) [place] % (Auto) Eos % (Auto) Lymph # (Auto) [place] # (Auto) Eos # (Auto) Seg Neutrophils % Seg Neuts % (Manual) Lymphocytes % (Manual) Eosinophils % (Manual) Seg Neutrophils # Seg Neutrophils # Man Lymphocytes # (Manual) Eosinophils # (Manual) PT Activated Coag Time Heparin Anti-Xa Level ABG pH ABG pO2 ABG HCO3 ABG O2 Saturation ABG Base Excess ABG Hemoglobin 9.3 L Oxyhemoglobin Sodium Potassium Chloride Carbon Dioxide BUN Creatinine Glucose POC Glucose 251 H 203 H Lactic Acid Calcium Phosphorus Magnesium Direct Bilirubin AST ALT Alkaline Phosphatase Total Creatine Kinase CK-MB (CK-2) CK-MB (CK-2) Rel Index Troponin T C-Reactive Protein Total Protein Albumin Triglycerides Ur Specific [place] Urine Blood Urine WBC (Auto) Urine Creatinine Digoxin Coronavirus (PCR) 05/02/22 05/02/22 05/02/22 04:47 04:59 04:59 WBC 17.9 H RBC 3.06 L Hgb 8.6 L Hct 26.7 L RDW 15.5 H Plt Count 597 H Lymph % (Auto) [place] % (Auto) Eos % (Auto) Lymph # (Auto) [place] # (Auto) Eos # (Auto) Seg Neutrophils % Seg Neuts % (Manual) Lymphocytes % (Manual) Eosinophils % (Manual) Seg Neutrophils # Seg Neutrophils # Man Lymphocytes # (Manual) Eosinophils # (Manual) PT Activated Coag Time Heparin Anti-Xa Level ABG pH ABG pO2 ABG HCO3 ABG O2 Saturation ABG Base Excess ABG Hemoglobin Oxyhemoglobin Sodium 147 H Potassium Chloride 111.5 H Carbon Dioxide BUN 36 H Creatinine Glucose 136 H POC Glucose 120 H Lactic Acid Calcium 8.0 L Phosphorus Magnesium Direct Bilirubin AST 73 H ALT 90 H Alkaline Phosphatase 171 H Total Creatine Kinase CK-MB (CK-2) CK-MB (CK-2) Rel Index Troponin T C-Reactive Protein Total Protein Albumin 2.3 L Triglycerides Ur Specific [place] Urine Blood Urine WBC (Auto) Urine Creatinine Digoxin Coronavirus (PCR) 05/02/22 05/02/22 05/02/22 11:59 16:29 22:10 WBC RBC Hgb Hct RDW Plt Count Lymph % (Auto) [place] % (Auto) Eos % (Auto) Lymph # (Auto) [place] # (Auto) Eos # (Auto) Seg Neutrophils % Seg Neuts % (Manual) Lymphocytes % (Manual) Eosinophils % (Manual) Seg Neutrophils # Seg Neutrophils # Man Lymphocytes # (Manual) Eosinophils # (Manual) PT Activated Coag Time Heparin Anti-Xa Level ABG pH ABG pO2 ABG HCO3 ABG O2 Saturation ABG Base Excess ABG Hemoglobin Oxyhemoglobin Sodium Potassium Chloride Carbon Dioxide BUN Creatinine Glucose POC Glucose 212 H 193 H 147 H Lactic Acid Calcium Phosphorus Magnesium Direct Bilirubin AST ALT Alkaline Phosphatase Total Creatine Kinase CK-MB (CK-2) CK-MB (CK-2) Rel Index Troponin T C-Reactive Protein Total Protein Albumin Triglycerides Ur Specific [place] Urine Blood Urine WBC (Auto) Urine Creatinine Digoxin Coronavirus (PCR) 05/02/22 05/03/22 05/03/22 23:59 04:46 04:46 WBC RBC Hgb Hct RDW Plt Count Lymph % (Auto) [place] % (Auto) Eos % (Auto) Lymph # (Auto) [place] # (Auto) Eos # (Auto) Seg Neutrophils % Seg Neuts % (Manual) Lymphocytes % (Manual) Eosinophils % (Manual) Seg Neutrophils # Seg Neutrophils # Man Lymphocytes # (Manual) Eosinophils # (Manual) PT Activated Coag Time Heparin Anti-Xa Level ABG pH ABG pO2 ABG HCO3 ABG O2 Saturation ABG Base Excess ABG Hemoglobin Oxyhemoglobin Sodium Potassium Chloride 108.3 H Carbon Dioxide BUN 34 H Creatinine Glucose 130 H POC Glucose 145 H Lactic Acid Calcium 7.7 L Phosphorus Magnesium Direct Bilirubin AST 98 H ALT 111 H Alkaline Phosphatase 147 H Total Creatine Kinase CK-MB (CK-2) CK-MB (CK-2) Rel Index Troponin T C-Reactive Protein Total Protein 6.0 L Albumin 1.9 L Triglycerides Ur Specific [place] Urine Blood Urine WBC (Auto) Urine Creatinine Digoxin 0.7 L Coronavirus (PCR) 05/03/22 05/03/22 05/03/22 04:46 05:23 11:51 WBC 16.4 H RBC 3.08 L Hgb 8.8 L Hct 27.7 L RDW Plt Count 596 H Lymph % (Auto) [place] % (Auto) Eos % (Auto) Lymph # (Auto) [place] # (Auto) Eos # (Auto) Seg Neutrophils % Seg Neuts % (Manual) Lymphocytes % (Manual) Eosinophils % (Manual) Seg Neutrophils # Seg Neutrophils # Man Lymphocytes # (Manual) Eosinophils # (Manual) PT Activated Coag Time Heparin Anti-Xa Level ABG pH ABG pO2 ABG HCO3 ABG O2 Saturation ABG Base Excess ABG Hemoglobin Oxyhemoglobin Sodium Potassium Chloride Carbon Dioxide BUN Creatinine Glucose POC Glucose 138 H 163 H Lactic Acid Calcium Phosphorus Magnesium Direct Bilirubin AST ALT Alkaline Phosphatase Total Creatine Kinase CK-MB (CK-2) CK-MB (CK-2) Rel Index Troponin T C-Reactive Protein Total Protein Albumin Triglycerides Ur Specific [place] Urine Blood Urine WBC (Auto) Urine Creatinine Digoxin Coronavirus (PCR) 05/03/22 05/03/22 05/04/22 17:36 23:57 03:48 WBC RBC Hgb Hct RDW Plt Count Lymph % (Auto) [place] % (Auto) Eos % (Auto) Lymph # (Auto) [place] # (Auto) Eos # (Auto) Seg Neutrophils % Seg Neuts % (Manual) Lymphocytes % (Manual) Eosinophils % (Manual) Seg Neutrophils # Seg Neutrophils # Man Lymphocytes # (Manual) Eosinophils # (Manual) PT Activated Coag Time Heparin Anti-Xa Level ABG pH ABG pO2 ABG HCO3 ABG O2 Saturation ABG Base Excess ABG Hemoglobin Oxyhemoglobin Sodium Potassium Chloride 110.5 H Carbon Dioxide BUN 30 H Creatinine Glucose 123 H POC Glucose 262 H 173 H Lactic Acid Calcium 8.1 L Phosphorus Magnesium Direct Bilirubin AST 88 H ALT 122 H Alkaline Phosphatase 171 H Total Creatine Kinase CK-MB (CK-2) CK-MB (CK-2) Rel Index Troponin T C-Reactive Protein Total Protein Albumin 2.2 L Triglycerides Ur Specific [place] Urine Blood Urine WBC (Auto) Urine Creatinine Digoxin Coronavirus (PCR) 05/04/22 05:03 WBC RBC Hgb Hct RDW Plt Count Lymph % (Auto) [place] % (Auto) Eos % (Auto) Lymph # (Auto) [place] # (Auto) Eos # (Auto) Seg Neutrophils % Seg Neuts % (Manual) Lymphocytes % (Manual) Eosinophils % (Manual) Seg Neutrophils # Seg Neutrophils # Man Lymphocytes # (Manual) Eosinophils # (Manual) PT Activated Coag Time Heparin Anti-Xa Level ABG pH ABG pO2 ABG HCO3 ABG O2 Saturation ABG Base Excess ABG Hemoglobin Oxyhemoglobin Sodium Potassium Chloride Carbon Dioxide BUN Creatinine Glucose POC Glucose 117 H Lactic Acid Calcium Phosphorus Magnesium Direct Bilirubin AST ALT Alkaline Phosphatase Total Creatine Kinase CK-MB (CK-2) CK-MB (CK-2) Rel Index Troponin T C-Reactive Protein Total Protein Albumin Triglycerides Ur Specific [place] Urine Blood Urine WBC (Auto) Urine Creatinine Digoxin Coronavirus (PCR) Chest x-ray: image reviewed (persistent interstitial edema pattern) Allied health notes reviewed: nursing
[2022-05-04] MEDS ORDERED: INSULIN LISPRO 100 UNIT/ML SUB-Q SCH (11:30)
--- NOTE | 2022-05-04 12:37 | Progress Note ---
<ESTUARDOMOHIT LockhartDaniele - Last Filed: 05/04/22 13:19> Assessment and Plan Assessment and plan: This is a 62 year old male with OHS, HTN, DM, metabolic syndrome, s/p vfib cardiac arrest, Septic shock, aspiration pneumonia, transaminitis, VINCENT with acute metabolic encephalopathy Neuro: Acute metabolic encephalopathy, facial contusions s/p fall -CT head showed no focal intra-axial mass, hemorrhage, hydrocephalus or acute or large territorial infarct -Reorientation as needed -Maintain sleep-wake cycle -Neurology consulted, appreciate recommendations -As needed analgesia Cardiac: A. fib RVR , s/p V. fib cardiac arrest, cardiogenic shock, h/o atrial fibrillation s/p cardioversion, HTN -Cardiology consulted, appreciate recommendations -S/p V. fib cardiac arrest -S/p dopamine drip and dobutamine drip -Amio d/c for increased LFTs -s/p X 2 dose IV dig, now on daily PO Dig -s/p IV heparin -Blood pressure monitoring per protocol -s/p Vasopressor support with levophed, epinephrine, vasopressin -Echocardiogram shows EF of 15 to 20% -Left heart cath showed severe nonischemic cardiomyopathy with patent coronary arteries, which per cardiology presumably resulted in a primary cardiac arrest. -Plan to DC with life vest Respiratory: Acute hypoxic respiratory failure, h/o OHS -[facility] consulted, appreciate recommendations -Intubated on 04/17 with 7.0 OETT @ 22 at the lips, reintubated 04/23 for blown cuff, self extubated 04/28 and reintubated but extubated 05/02 -Currently on NC -Chest US shows no pleural effusion -Pulmonary hygiene -SPO2 monitoring GI: Transaminitis (resolving), moderate protein calorie malnutrition -24 hours -765 mL -PPI -Cardiac CC diet, pureed -BR: Senokot -Trend LFTs : Acute kidney injury likely secondary to vasomotor nephropathy (resolving) -Nephrology consulted, appreciate recommendations -Monitor intake and output -Renally dose medications -Avoid nephrotoxic medications -s/p bicarb gtt -PO lasix -Renal ultrasound shows distended gallbladder, no cholecystic fluid -Trend BMP ID: COVID 19 PNA, Aspiration pneumonia, Sepsis, lactic acidosis -ID consulted, appreciate recommendations -COVID 19 PCR (+) -CTA chest shows extensive bilateral airspace disease present dependent portions and greater in the upper lobes, given distribution could be related to aspiration -Admitted with hypotension, lactic acidosis, acute kidney injury, CXR showed pna -Antibiotic therapy with cefepime, vanco -Redemsevir for 5 days -Contact and droplet precautions -f/u blood culture -Blood culture with NGTD, Sputum culture with usual adina -Monitor WBC and temperature curve -Trend COVID 19 inflammatory markers Endo: h/o DM -Avoid hypoglycemia -SSI -Accu-Cheks ACHS -Long-acting insulin, titrate as needed Heme: Leukocytosis, elevated D-dimer -CTA chest shows no pulmonary embolism -Trend CBC -Transfuse for hemoglobin less than 7 -Bilateral Doppler ultrasound showed no DVT -Lovenox BID -SCDs to BLE while in bed The high probability of a clinically significant, sudden or life threatening deterioration of the [multiple] system(s) required my full and direct attention, intervention and personal management. The aggregate critical care time was [60] minutes. This time is in addition to time spent performing reported procedures but includes the following: [x] Data Review and interpretation [x] Patient assessment and monitoring of vital signs [x] Documentation [x] Medication orders and management Disposition Plan: icu Total Time Spent with Patient (Minutes): 60 History Interval history: This is is a 62-year-old male with OHS, HTN, DM, metabolic syndrome presents the emergency department on 04/17 via EMS s/p cardiac arrest. As per family patient presented to [facility] for evaluation for chest pain and subsequently went to the restroom where he was found unresponsive and EMS arrived and noted the patient had a V. fib arrest and ACLS was initiated and patient was transported to [facility] for further evaluation. Patient was noted to have aspirated into the oropharynx with suspected aspiration pneumonia complicated by acute hypoxic respiratory failure, septic shock and cardiac arrest. Patient was initiated on the sepsis protocol, IV vasopressor support and admitted to the ICU with consults to [facility], nephrology and cardiology. Hospital Course to Date: 04/18: Severely acidotic this am, now on bcarb gtt. On high dose pressors- Levop hed and Vaso. Afib in control rate on the monitor, on Amiodarone and heparin gtt per protocol. Cardiology is following. Patient remains afebrile and leukocytosis improved this am. Now with worsen renal function and low UOP. Patient's EF is 25 to 30%, Dobutamine gtt initiated. Continue current IV abx, continue to trend troponin and lactic acid. Nephrology also consulted for further recs. BLE swelling noted, BLE doppler ordered to r/o DVT. 04/19: Agitation with low SPO2 overnight, sedation increased. This am ABG with worsen hypoxia on 40% Fio2, SPO2 at 90% this am. Fio2 increased to 50%, SPO2 imp roved above 92%. Remains on multiple pressors and bcarb gtt. Now on dopamine gtt, in Afib with RVR on the monitor. Still on Amiodarone and heparin gtts. Echo noted, EF 15 to 20%. Cardiology is following. With worsen renal function, however making urine this am. 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 Will continue to monitor. Monitor and replace electrolytes as needed 04/20: Nephrology spoke to at bedside re HD, cardiology will proceed with LHC if patient is to recieve HD post procedure, vent changes per [facility], Sedated with fentanyl and propofol with heparin and amio gtt infusing. 04/21: LHC today. Nephrology will continue IVF and if renal function worsens then will proceed HD with consent from family. Patient became hypoxic with FiO2 at 40% yesterday evening and is currently at 65%. 04/22: Patient was started on vasopressin IV fluids yesterday and his creatinine decreased from 4.2 to 2.9. Patient severely agitated while on propofol and fentanyl. Started low-dose Seroquel and started to wean propofol as tolerated. Patient does follow commands today. Increase in lantus. IV fluids decreased, started on dobutamine per [facility] and wean vasopressin for target MAP of 65-70 and SBP greater than 110 04/23: This morning patient being extremely hypertensive with SBP into 200s and given metoprolol. Rn asked to wean propofol as tolerated. Dobutamine decreased to 2.5. Cr improved. US chest completed and showed no pleural effusions. This afternoon alerted by RN that RT believes pt bite through his tube and anesthesia was called to bedside for tube exchange. Decision was made to extubate and reintubate the patient. CXR ordered. 04/24: Patient placed on CPAP trial. Renal numbers look better today. Cardiology would like to try digoxin. No acute events reported overnight. 04/25: Patient now with hypernatremia, slightly increased renal function today but still putting out over 1 L urine over the past 24 hours. Will increase free water flushes and repleate potassium cautiously. Cardilogy will like to continue current management. PSV when able 04/26: Cardiology will increase amiodarone due to heart rate being in the 110s to 120s and will hold off digoxin, remains on dobutamine drip. Hypernatremia improving. Remains on D5 W per nephrology. PSV this AM. Rash noted to trunk, arms, chest. RN to hold off Seroquel. Started on IV Benadryl. Already n.p.o. famotidine. Updated [facility] physician who also informed me that the patient is allergic to lisinopril (angioedema) 04/27: Tolerating PSV trail this am on low dose sedation. Per CCM, plan to wean vent setting for possible extubation. If patient requires higher dose of sedation, will add precedex gtt for trial to wean off sedation. Patient with low grade fevers with worsening leukopcytosis, B.cultures from yesterday with NGTD. Will do a lines vacations, D/C CVC and penn. Patient is hemodynamically stable, will continue to monitor for now. Patient is also net positive balance since admit, hypernatremia resolved, and renal function improved, will decrease IVF for now. Nephrology is also following. 04/28: Self-extubated this afternoon, requiring emergent reintubation. Flash pulmonary edema noted during intubation, X1 dose of IV lasix administered. Currently hypertensive and Afib with RVR, HR in the 110-130s, sedations resumed. Persistent fevers overnight with leukocytosis, repeat blood culture with no gr owth. Orders placed for UA and repeat sputum culture. Empiric IV Abx, Cefepine and vanc initiated. ID was also consulted. Continue vent wean/adjustment per CCM. Penn was reinserted overnight due to retention, will reassess in the next 24hrs to 48hrs. 04/29: Remains stable on the vent, this am CXR and ABG with significant improvement. On low dose pressors this am, MAP in the 70s, titrate pressor to maintain MAP in the 70s. Still with persistent fevers despite current IV abx, repeat cultures with NGTD. Orders placed for COVID and Flu PCR.. Worsen LFTs this am, d/w Cardio will D/C PO amio, X2 dose of IV digoxin for rate control. Renal function stable, patient responded well to IV lasix, over 5L out in last 24hrs. Will hold off on diurese today per Nephro, will reassess in the am. Insulin regimen adjusted for hyperglycemia. 04/30: Stable on low vent settings this am. Off pressors, fevers and leukocytosis improved. COVID PCR came back positive, IV steroids initiated. And ID recommendations noted- continue Cefepine and Vanc, Redemsevir added. Remains with transaminitis, abdominal US pending. Patient remains in Afib control, tolerated IV dig. Plan for daily PO dig per Cardiology. Renal function is stable, X1 dose of IV lasix today. K repleted, continue to monitor and replace electrolytes as needed. 05/01: Remains stable on the vent. Fevers improved and VSS. Plan to wean propofol gtt for possible PSV trial this am. Okay to SBT on low dose fentynal gtt per CCM. Tolerated IV lasix, good UOP overnight. Renal function remains stable, will continue to monitor. Possible transfer to [place] whenever a bed is available. 05/02: Off sedations this am, tolerating PSV trial. Plan for possible extubation today per CCM. Renal function continue to improve, X1 dose of IV lasix given prior to possible extubation. PT/OT/Speech ordered. 05/03: s/p extubation, stable on 2L NC. Rhonchi and crackles appreciated through lungs today, no respiratory distress noted. Will repeat CXR this am. Will d/w CCM and nephro of possible additional lasix today. Renal function continue to improved with good UOP, Penn removed. Patient remains in Afib control, on PO digoxin, and now on therapeutic Lovenox. Per Cardio plan to arrange for LifeVest or AICD prior to discharge. D/w CCM will continue ICU care for another 24hrs to 48hrs as patient is still critically ill. 05/04: Patient remains on NC. No acute events overnight. TID lispro discontinued. Renal function continues to improve. Hospitalist Physical - Physical exam Narrative exam: General appearance: Present: no acute distress, other (Intubated and Sedated) - EENT Eyes: Present: PERRL, EOM intact ENT: hearing decreased - Neck Neck: Present: normal ROM - Respiratory Respiratory effort: normal Respiratory: bilateral: diminished, rhonchi - Cardiovascular Rhythm: irregularly irregular Heart Sounds: Present: S1 & S2. Absent: systolic murmur, diastolic murmur - Extremities Extremities: no ischemia, pulses intact Extremity abnormal: edema Peripheral Pulses: within normal limits - Abdominal General gastrointestinal: soft, non-tender, non-distended, normal bowel sounds - Integumentary Integumentary: Present: warm, dry - Neurologic Neurologic: Follows commands, interactive - Allied Health Allied health notes reviewed: nursing, RT - Constitutional Vitals: Temp Pulse Resp BP Pulse Ox 99.0 F 73 32 H 146/77 93 05/04/22 11:59 05/04/22 12:01 05/04/22 12:01 05/04/22 12:01 05/04/22 12:01 General appearance: Present: other (Intubated and Sedated) HEART Score - HEART Score Troponin: Troponin T 2.980 ng/mL (0.00-0.029) H* 04/19/22 07:11 Results - Labs CBC & Chem 7: 05/03/22 04:46 05/04/22 03:48 Labs: Laboratory Last Values WBC 16.4 K/mm3 (4.5-11.0) H 05/03/22 04:46 RBC 3.08 M/mm3 (3.65-5.03) L 05/03/22 04:46 Hgb 8.8 gm/dl (11.8-15.2) L 05/03/22 04:46 Hct 27.7 % (35.5-45.6) L 05/03/22 04:46 MCV 90 fl (84-94) 05/03/22 04:46 MCH 29 pg (28-32) 05/03/22 04:46 MCHC 32 % (32-34) 05/03/22 04:46 RDW 15.0 % (13.2-15.2) 05/03/22 04:46 Plt Count 596 K/mm3 (140-440) H 05/03/22 04:46 Lymph % (Auto) 5.7 % (13.4-35.0) L 04/29/22 04:20 Dolores % (Auto) 7.8 % (0.0-7.3) H 04/29/22 04:20 Eos % (Auto) 3.9 % (0.0-4.3) 04/29/22 04:20 Baso % (Auto) 0.6 % (0.0-1.8) 04/29/22 04:20 Lymph # (Auto) 1.1 K/mm3 (1.2-5.4) L 04/29/22 04:20 Dolores # (Auto) 1.5 K/mm3 (0.0-0.8) H 04/29/22 04:20 Eos # (Auto) 0.8 K/mm3 (0.0-0.4) H 04/29/22 04:20 Baso # (Auto) 0.1 K/mm3 (0.0-0.1) 04/29/22 04:20 Add Manual Diff Complete 04/23/22 04:19 Total Counted 100 04/23/22 04:19 Seg Neutrophils % 82.0 % (40.0-70.0) H 04/29/22 04:20 Seg Neuts % (Manual) 74.0 % (40.0-70.0) H 04/23/22 04:19 Band Neutrophils % 2.0 % 04/23/22 04:19 Lymphocytes % (Manual) 10.0 % (13.4-35.0) L 04/23/22 04:19 Reactive Lymphs % (Man) 0 % 04/23/22 04:19 Monocytes % (Manual) 7.0 % (0.0-7.3) 04/23/22 04:19 Eosinophils % (Manual) 7.0 % (0.0-4.3) H 04/23/22 04:19 Basophils % (Manual) 0 % (0.0-1.8) 04/23/22 04:19 Metamyelocytes % 0 % 04/23/22 04:19 Myelocytes % 0 % 04/23/22 04:19 Promyelocytes % 0 % 04/23/22 04:19 Blast Cells % 0 % 04/23/22 04:19 Nucleated RBC % Not Reportable 04/23/22 04:19 Seg Neutrophils # 16.3 K/mm3 (1.8-7.7) H 04/29/22 04:20 Seg Neutrophils # Man 8.0 K/mm3 (1.8-7.7) H 04/23/22 04:19 Band Neutrophils # 0.2 K/mm3 04/23/22 04:19 Lymphocytes # (Manual) 1.1 K/mm3 (1.2-5.4) L 04/23/22 04:19 Abs React Lymphs (Man) 0.0 K/mm3 04/23/22 04:19 Monocytes # (Manual) 0.8 K/mm3 (0.0-0.8) 04/23/22 04:19 Eosinophils # (Manual) 0.8 K/mm3 (0.0-0.4) H 04/23/22 04:19 Basophils # (Manual) 0.0 K/mm3 (0.0-0.1) 04/23/22 04:19 Metamyelocytes # 0.0 K/mm3 04/23/22 04:19 Myelocytes # 0.0 K/mm3 04/23/22 04:19 Promyelocytes # 0.0 K/mm3 04/23/22 04:19 Blast Cells # 0.0 K/mm3 04/23/22 04:19 WBC Morphology Not Reportable 04/23/22 04:19 Hypersegmented Neuts Not Reportable 04/23/22 04:19 Hyposegmented Neuts Not Reportable 04/23/22 04:19 Hypogranular Neuts Not Reportable 04/23/22 04:19 Smudge Cells Not Reportable 04/23/22 04:19 Toxic Granulation Not Reportable 04/23/22 04:19 Toxic Vacuolation Not Reportable 04/23/22 04:19 Dohle Bodies Not Reportable 04/23/22 04:19 Pelger-Huet Anomaly Not Reportable 04/23/22 04:19 Regla Rods Not Reportable 04/23/22 04:19 Platelet Estimate Consistent w auto 04/23/22 04:19 Clumped Platelets Not Reportable 04/23/22 04:19 Plt Clumps, EDTA Not Reportable 04/23/22 04:19 Large Platelets Not Reportable 04/23/22 04:19 Giant Platelets Not Reportable 04/23/22 04:19 Platelet Satelliting Not Reportable 04/23/22 04:19 Plt Morphology Comment Not Reportable 04/23/22 04:19 RBC Morphology Not Reportable 04/23/22 04:19 Dimorphic RBCs Not Reportable 04/23/22 04:19 Polychromasia Not Reportable 04/23/22 04:19 Hypochromasia Not Reportable 04/23/22 04:19 Poikilocytosis Not Reportable 04/23/22 04:19 Anisocytosis Not Reportable 04/23/22 04:19 Microcytosis Not Reportable 04/23/22 04:19 Macrocytosis Not Reportable 04/23/22 04:19 Spherocytes Not Reportable 04/23/22 04:19 Pappenheimer Bodies Not Reportable 04/23/22 04:19 Sickle Cells Not Reportable 04/23/22 04:19 Target Cells Not Reportable 04/23/22 04:19 Tear Drop Cells Not Reportable 04/23/22 04:19 Ovalocytes Not Reportable 04/23/22 04:19 Helmet Cells Not Reportable 04/23/22 04:19 [place] Bodies Not Reportable 04/23/22 04:19 [place] Rings Not Reportable 04/23/22 04:19 Meggan Cells Not Reportable 04/23/22 04:19 Bite Cells Not Reportable 04/23/22 04:19 Crenated Cell Not Reportable 04/23/22 04:19 Elliptocytes Not Reportable 04/23/22 04:19 Acanthocytes (Spur) Not Reportable 04/23/22 04:19 Rouleaux Not Reportable 04/23/22 04:19 Hemoglobin C Crystals Not Reportable 04/23/22 04:19 Schistocytes Not Reportable 04/23/22 04:19 Malaria parasites Not Reportable 04/23/22 04:19 [place] Bodies Not Reportable 04/23/22 04:19 Hem Pathologist Commnt No 04/23/22 04:19 PT 15.6 Sec. (12.2-14.9) H 04/18/22 Unknown INR 1.08 (0.87-1.13) 04/18/22 Unknown APTT 28.6 Sec. (24.2-36.6) 04/18/22 Unknown Activated Coag Time 179 (74-137) H 04/21/22 12:14 Heparin Anti-Xa Level 0.16 U.I./ml (0.3-0.7) L 04/21/22 04:00 ABG pH 7.442 pH Units (7.350-7.450) 05/02/22 04:45 ABG pCO2 37.8 mm Hg 05/02/22 04:45 ABG pO2 83.1 mm Hg (80.0-90.0) 05/02/22 04:45 ABG HCO3 25.2 mmol/L (20.0-26.0) 05/02/22 04:45 ABG O2 Saturation 97.0 % (95.0-99.0) 05/02/22 04:45 ABG O2 Content 12.6 (0.0-44) 05/02/22 04:45 ABG Base Excess 1.1 mmol/L (-2.0-3.0) 05/02/22 04:45 ABG Hemoglobin 9.3 gm/dl (14.0-18.0) L 05/02/22 04:45 ABG Carboxyhemoglobin 1.4 % (0.0-5.0) 05/02/22 04:45 ABG Methemoglobin 0.4 % (0.0-1.5) 05/02/22 04:45 Oxyhemoglobin 95.2 % (95.0-99.0) 05/02/22 04:45 FiO2 30 % 05/02/22 04:45 Sodium 141 mmol/L (137-145) 05/04/22 03:48 Potassium 4.5 mmol/L (3.6-5.0) D 05/04/22 03:48 Chloride 110.5 mmol/L (98-107) H 05/04/22 03:48 Carbon Dioxide 22 mmol/L (22-30) 05/04/22 03:48 Anion Gap 13 mmol/L 05/04/22 03:48 BUN 30 mg/dL (9-20) H 05/04/22 03:48 Creatinine 1.0 mg/dL (0.8-1.3) 05/04/22 03:48 Estimated GFR > 60 ml/min 05/04/22 03:48 BUN/Creatinine Ratio 30 % 05/04/22 03:48 Glucose 123 mg/dL (75-100) H 05/04/22 03:48 POC Glucose 117 mg/dL (70-105) H 05/04/22 05:03 Lactic Acid 1.90 mmol/L (0.7-2.0) 04/21/22 04:20 Calcium 8.1 mg/dL (8.4-10.2) L 05/04/22 03:48 Phosphorus 3.20 mg/dL (2.5-4.5) 05/03/22 04:46 Magnesium 2.10 mg/dL (1.7-2.3) 05/03/22 04:46 Total Bilirubin 0.40 mg/dL (0.1-1.2) 05/04/22 03:48 Direct Bilirubin 0.3 mg/dL (0-0.2) H 04/30/22 04:25 Indirect Bilirubin 0.1 mg/dL 04/30/22 04:25 AST 88 units/L (5-40) H 05/04/22 03:48 ALT 122 units/L (7-56) H 05/04/22 03:48 Alkaline Phosphatase 171 units/L (35-129) H 05/04/22 03:48 Total Creatine Kinase 61 units/L (55-170) 04/29/22 04:20 CK-MB (CK-2) 28.5 ng/mL (0.0-4.0) H 04/19/22 07:11 CK-MB (CK-2) Rel Index 0.8 (0-4) 04/19/22 07:11 Troponin T 2.980 ng/mL (0.00-0.029) H* 04/19/22 07:11 C-Reactive Protein 15.30 mg/dL (0.00-1.30) H 04/28/22 08:20 Total Protein 7.2 g/dL (6.3-8.2) 05/04/22 03:48 Albumin 2.2 g/dL (3.9-5) L 05/04/22 03:48 Albumin/Globulin Ratio 0.4 % 05/04/22 03:48 Triglycerides 214 mg/dL (2-149) H 05/01/22 04:00 Cholesterol 106 mg/dL (50-199) 04/17/22 19:56 LDL Cholesterol Direct 57 mg/dL (50-130) 04/17/22 19:56 HDL Cholesterol 40 mg/dL (40-59) 04/17/22 19:56 Cholesterol/HDL Ratio 2.65 % 04/17/22 19:56 Procalcitonin 2.90 ng/mL (<0.15) 04/28/22 Unknown Urine Color Straw (Yellow) 04/28/22 08:35 Urine Turbidity Clear (Clear) 04/28/22 08:35 Urine pH 6.0 (5.0-7.0) 04/28/22 08:35 Ur Specific [place] 1.000 (1.003-1.030) L 04/28/22 08:35 Urine Protein 300 mg/dl mg/dL (Negative) 04/28/22 08:35 Urine Glucose (UA) Negative mg/dL (Negative) 04/28/22 08:35 Urine Ketones Negative mg/dL (Negative) 04/28/22 08:35 Urine Blood 3+ (Negative) 04/28/22 08:35 Urine Nitrite Negative (Negative) 04/28/22 08:35 Ur Reducing Substances Not Reportable 04/28/22 08:35 Urine Bilirubin Negative (Negative) 04/28/22 08:35 Urine Ictotest Not Reportable 04/28/22 08:35 Urine Urobilinogen < 2.0 mg/dL (<2.0) 04/28/22 08:35 Ur Leukocyte Esterase Small (Negative) 04/28/22 08:35 Urine WBC (Auto) 21.0 /HPF (0.0-6.0) H 04/28/22 08:35 Urine RBC (Auto) 9.0 /HPF (0.0-6.0) 04/28/22 08:35 Urine Bacteria (Auto) 2+ /HPF (Negative) 04/19/22 02:08 Urine WBC Clumps 3+ /HPF 04/19/22 02:08 RBC Casts 34 /LPF 04/19/22 02:08 Urine Mucus Few /HPF 04/28/22 08:35 Urine Yeast (Budding) 3+ /HPF 04/19/22 02:08 Urine Eosinophils None seen (None Seen) 04/19/22 02:08 Urine Creatinine 90.9 mg/dL (0.1-20.0) H 04/19/22 02:08 Urine Sodium 54 mmol/L 04/19/22 02:08 Digoxin 0.7 ng/mL (0.9-2.0) L 05/03/22 04:46 Coronavirus (PCR) Positive (Negative) A 04/29/22 09:38 Influenza A (RT-PCR) Negative (Negative) 04/29/22 11:44 Influenza B (RT-PCR) Negative (Negative) 04/29/22 11:44 Blood Type A POSITIVE 04/21/22 04:37 Antibody Screen Negative 04/21/22 04:37 Microbiology: Microbiology 04/28/22 07:26 Tracheal Aspirate Sputum Culture - Final Penn/IV: Voiding Method Urinal Active Medications - Current Medications Current Medications: Generic Name Dose Route Start Last Admin Trade Name Freq PRN Reason Stop Dose Admin Acetaminophen 650 mg 04/17/22 19:48 04/28/22 21:38 Acetaminophen 325 Mg Tab PO 650 mg Q6H PRN Administration Pain MILD(1-3)/Fever >100.5/CHE Albuterol 2.5 mg 04/17/22 19:48 Albuterol 2.5 Mg/3 Ml Nebu IH Q3HRT PRN Shortness Of Breath Ascorbic Acid 500 mg 05/04/22 22:00 Ascorbic Acid 500 Mg Tab PO 05/10/22 10:01 BID [facility] Aspirin 81 mg 05/05/22 10:00 Aspirin 81 Mg Tab Chew PO QDAY [facility] Atorvastatin Calcium 20 mg 05/04/22 22:00 Atorvastatin 20 Mg Tab PO QHS [facility] Dexamethasone 8 mg 04/30/22 10:00 05/04/22 09:27 Dexamethasone 4 Mg/Ml Vial IV 05/09/22 10:01 8 mg DAILY [facility] Administration Dextrose 0 ml 04/17/22 23:46 Dextrose 50% In Water (25gm) 50 Ml Syringe IV Q30MIN PRN Hypoglycemia Protocol Digoxin 0.125 mg 05/04/22 17:00 Digoxin 0.125 Mg Tab PO DAILY@1700 [facility] Docusate Sodium 100 mg 05/04/22 22:00 Docusate Sodium 100 Mg/10 Ml Oral Liqd PO BID [facility] Doxazosin Mesylate 1 mg 05/04/22 22:00 Doxazosin 1 Mg Tab PO QHS [facility] Enoxaparin Sodium 120 mg 05/02/22 10:00 05/04/22 09:26 Enoxaparin 120 Mg/0.8 Ml Inj SUB-Q 120 mg Q12HR [facility] Administration Protocol Famotidine 20 mg 05/04/22 22:00 Famotidine 20 Mg Tab PO BID [facility] Fentanyl 50 mcg 04/17/22 20:22 04/30/22 22:41 Fentanyl 100 Mcg/2 Ml Inj IV 50 mcg Q10MIN PRN Administration ANALGESIA Furosemide 20 mg 05/04/22 18:00 Furosemide 20 Mg Tab PO 0600,1800 [facility] Hydrophilic Ointment 1 applic 04/18/22 06:02 04/26/22 20:29 Lip Therapy Vaseline TP 1 applic Q2HR PRN Administration Dry Lips Cefepime HCl 2 gm in 100 mls @ 200 mls/hr 04/28/22 08:00 05/04/22 09:26 Cefepime/Ns 2 Gm/100 Ml IV 200 mls/hr Q8H [facility] Administration Protocol Remdesivir 100 mg/ Sodium 250 mls @ 500 mls/hr 05/01/22 14:00 05/03/22 15:45 Chloride IV 05/04/22 14:29 500 mls/hr Q24HR@1400 [facility] Administration Insulin Glargine 35 units 05/03/22 22:00 05/03/22 21:01 Insulin Glargine 100 Units/Ml SUB-Q 35 units QHS [facility] Administration Insulin Human Lispro 0 unit 05/04/22 11:30 Insulin Lispro 100 Unit/Ml SUB-Q ACHS [facility] Protocol Metoprolol Tartrate 12.5 mg 05/04/22 10:00 Metoprolol Tartrate 25 Mg Tab PO BID [facility] Multi-Ingred Cream/Lotion/Oil/Oint 1 applic 04/18/22 06:02 Mineral Oil/Petrolatum, White Ophth Oint 3.5 Gm OU Q4HR PRN Dry Eye(s) Oxycodone/Acetaminophen 1 tab 05/04/22 10:00 Oxycodone /Acetaminophen 5-325mg Tab PO Q6H PRN Pain, Moderate (4-6) Senna/Docusate Sodium 2 tab 05/04/22 10:00 05/04/22 09:46 Sennosides/Docusate Sodium 8.6/50 Mg Tab PO Not Given BID [facility] Sodium Chloride 10 ml 04/17/22 22:00 05/04/22 09:28 Sodium Chloride 0.9% 10 Ml Flush Syringe IV 10 ml BID [facility] Administration Sodium Chloride 10 ml 04/17/22 19:48 Sodium Chloride 0.9% 10 Ml Flush Syringe IV PRN PRN LINE FLUSH Sodium Chloride 50 ml 04/30/22 09:00 05/03/22 15:45 Sodium Chloride 0.9% 50 Ml Ivpb IV 05/04/22 14:01 50 ml Q24HR@1400 [facility] Administration Zinc Sulfate 220 mg 04/30/22 22:00 05/04/22 09:27 Zinc Sulfate 220 Mg Cap PO 05/10/22 10:01 220 mg BID [facility] Administration Nutrition/Malnutrition Assess - Dietary Evaluation Nutrition/Malnutrition Findings: Nutrition Notes Start: 04/18/22 08:52 Freq: Status: Active Protocol: Document 04/29/22 11:29 ROMELIA (Rec: 04/29/22 11:55 ROMELIA [id number]) Nutrition Notes Initial or Follow up Reassessment Current Diagnosis Acute Kidney Injury,Diabetes, Sepsis,Hypertension, Respiratory Failure Other Pertinent Diagnosis s/p PEA w/ROSC, HFrEF, Pneumonia, Transaminitis, Rabdomyolisis, .. Current Diet TF-Nepro w/CARBSTEADY @ 35 ml/ hr (from D 04/21). Labs/Tests 04/29: BUN 30, Crea 1.6, Glu 236, Ca 8.1. Pertinent Medications 04/29: Humalog 4U, Propofol @ 3.456 ml/hr (91 Kcal), mothers nutritionally unremarkable. Height 5 ft 9 in Weight 115.2 kg [place] Body Weight (kg) 72.72 BMI 37.5 Weight change and time frame No body weight change reported in 11 days. Weight Status Obese Subjective/Other Information RD consult for routine F/U on TF tolerance/continuation assessment. TF continues as prescribed, no further information available at the time. Pt continues on Mechanical Ventilation, O2 saturation @ 100%, according to Physical Assessment History notes. Pt remains incontinent, according to Physical Assessment History notes. Pt presents blisters on the groin and on hand, according to Physical Assessment History notes. Percent of energy/protein needs met: Prescribed TF-Nepro w/ CARBSTEADY @ 35 ml/hr provides for energy/protein needs (1, 500 Kcal/68 g) during LOS, 77% Kcal; 90% AA. Including 91 Kcal from Propofol: 81% Kcal; 90% AA. Burn Absent Trauma Absent GI Symptoms None Food Allergy No Skin Integrity/Comment Blisters on the groin and on hand. 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 Yes Is Patient Ambulatory and/or Out of Bed No REE-([facility]-confined to bed) 2323.608 Kcal/Kg value to use for calculation 17 Approximate Energy Requirements Using 1958 kcal/Kg Calculation Used for Recommendations Kcal/kg Additional Notes Protein: 0.8-1.2 g/Kg AdjBW; 75-113 g/day. Fluids: 1 ml/Kcal, or as per MD. Nutrition Intervention Nutrition Support: Continue TF-Nepro w/CARBSTEADY @ 35 ml/hr. Flush: 220 ml water Q 4 hr, or as per MD. Kcal 1,500 Protein (gm) 68 Carbohydrates (gm) 134 Fat (gm) 80 Fluid (mL) 606 Fiber (gm) 11 % RDI: 77% Kcal; 90% AA. Goal #1 Provide at least 75% of energy /protein needs through Enteral Feeding during LOS. Follow-Up By: 05/06/22 Additional Comments Continue monitoring TF tolerance, ventilation status, vasopressors, and BM. <GABRIELE HUFF - Last Filed: 05/04/22 19:12> Assessment and Plan Assessment and plan: I saw and evaluated the patient. I agree with the findings and the plan of care as documented in the Nurse Practitioner's~note, with the following corrections and additions. Hospitalist Physical - Constitutional Vitals: Temp Pulse Resp BP Pulse Ox 99.2 F 85 34 H 165/94 99 05/04/22 16:00 05/04/22 18:01 05/04/22 18:01 05/04/22 18:01 05/04/22 17:01 HEART Score - HEART Score Troponin: Troponin T 2.980 ng/mL (0.00-0.029) H* 04/19/22 07:11 Results - Labs CBC & Chem 7: 05/03/22 04:46 05/04/22 03:48 Labs: Laboratory Last Values WBC 16.4 K/mm3 (4.5-11.0) H 05/03/22 04:46 RBC 3.08 M/mm3 (3.65-5.03) L 05/03/22 04:46 Hgb 8.8 gm/dl (11.8-15.2) L 05/03/22 04:46 Hct 27.7 % (35.5-45.6) L 05/03/22 04:46 MCV 90 fl (84-94) 05/03/22 04:46 MCH 29 pg (28-32) 05/03/22 04:46 MCHC 32 % (32-34) 05/03/22 04:46 RDW 15.0 % (13.2-15.2) 05/03/22 04:46 Plt Count 596 K/mm3 (140-440) H 05/03/22 04:46 Lymph % (Auto) 5.7 % (13.4-35.0) L 04/29/22 04:20 [place] % (Auto) 7.8 % (0.0-7.3) H 04/29/22 04:20 Eos % (Auto) 3.9 % (0.0-4.3) 04/29/22 04:20 Baso % (Auto) 0.6 % (0.0-1.8) 04/29/22 04:20 Lymph # (Auto) 1.1 K/mm3 (1.2-5.4) L 04/29/22 04:20 [place] # (Auto) 1.5 K/mm3 (0.0-0.8) H 04/29/22 04:20 Eos # (Auto) 0.8 K/mm3 (0.0-0.4) H 04/29/22 04:20 Baso # (Auto) 0.1 K/mm3 (0.0-0.1) 04/29/22 04:20 Add Manual Diff Complete 04/23/22 04:19 Total Counted 100 04/23/22 04:19 Seg Neutrophils % 82.0 % (40.0-70.0) H 04/29/22 04:20 Seg Neuts % (Manual) 74.0 % (40.0-70.0) H 04/23/22 04:19 Band Neutrophils % 2.0 % 04/23/22 04:19 Lymphocytes % (Manual) 10.0 % (13.4-35.0) L 04/23/22 04:19 Reactive Lymphs % (Man) 0 % 04/23/22 04:19 Monocytes % (Manual) 7.0 % (0.0-7.3) 04/23/22 04:19 Eosinophils % (Manual) 7.0 % (0.0-4.3) H 04/23/22 04:19 Basophils % (Manual) 0 % (0.0-1.8) 04/23/22 04:19 Metamyelocytes % 0 % 04/23/22 04:19 Myelocytes % 0 % 04/23/22 04:19 Promyelocytes % 0 % 04/23/22 04:19 Blast Cells % 0 % 04/23/22 04:19 Nucleated RBC % Not Reportable 04/23/22 04:19 Seg Neutrophils # 16.3 K/mm3 (1.8-7.7) H 04/29/22 04:20 Seg Neutrophils # Man 8.0 K/mm3 (1.8-7.7) H 04/23/22 04:19 Band Neutrophils # 0.2 K/mm3 04/23/22 04:19 Lymphocytes # (Manual) 1.1 K/mm3 (1.2-5.4) L 04/23/22 04:19 Abs React Lymphs (Man) 0.0 K/mm3 04/23/22 04:19 Monocytes # (Manual) 0.8 K/mm3 (0.0-0.8) 04/23/22 04:19 Eosinophils # (Manual) 0.8 K/mm3 (0.0-0.4) H 04/23/22 04:19 Basophils # (Manual) 0.0 K/mm3 (0.0-0.1) 04/23/22 04:19 Metamyelocytes # 0.0 K/mm3 04/23/22 04:19 Myelocytes # 0.0 K/mm3 04/23/22 04:19 Promyelocytes # 0.0 K/mm3 04/23/22 04:19 Blast Cells # 0.0 K/mm3 04/23/22 04:19 WBC Morphology Not Reportable 04/23/22 04:19 Hypersegmented Neuts Not Reportable 04/23/22 04:19 Hyposegmented Neuts Not Reportable 04/23/22 04:19 Hypogranular Neuts Not Reportable 04/23/22 04:19 Smudge Cells Not Reportable 04/23/22 04:19 Toxic Granulation Not Reportable 04/23/22 04:19 Toxic Vacuolation Not Reportable 04/23/22 04:19 Dohle Bodies Not Reportable 04/23/22 04:19 Pelger-Huet Anomaly Not Reportable 04/23/22 04:19 Regla Rods Not Reportable 04/23/22 04:19 Platelet Estimate Consistent w auto 04/23/22 04:19 Clumped Platelets Not Reportable 04/23/22 04:19 Plt Clumps, EDTA Not Reportable 04/23/22 04:19 Large Platelets Not Reportable 04/23/22 04:19 Giant Platelets Not Reportable 04/23/22 04:19 Platelet Satelliting Not Reportable 04/23/22 04:19 Plt Morphology Comment Not Reportable 04/23/22 04:19 RBC Morphology Not Reportable 04/23/22 04:19 Dimorphic RBCs Not Reportable 04/23/22 04:19 Polychromasia Not Reportable 04/23/22 04:19 Hypochromasia Not Reportable 04/23/22 04:19 Poikilocytosis Not Reportable 04/23/22 04:19 Anisocytosis Not Reportable 04/23/22 04:19 Microcytosis Not Reportable 04/23/22 04:19 Macrocytosis Not Reportable 04/23/22 04:19 Spherocytes Not Reportable 04/23/22 04:19 Pappenheimer Bodies Not Reportable 04/23/22 04:19 Sickle Cells Not Reportable 04/23/22 04:19 Target Cells Not Reportable 04/23/22 04:19 Tear Drop Cells Not Reportable 04/23/22 04:19 Ovalocytes Not Reportable 04/23/22 04:19 Helmet Cells Not Reportable 04/23/22 04:19 [place] Bodies Not Reportable 04/23/22 04:19 [place] Rings Not Reportable 04/23/22 04:19 [place] Cells Not Reportable 04/23/22 04:19 Bite Cells Not Reportable 04/23/22 04:19 Crenated Cell Not Reportable 04/23/22 04:19 Elliptocytes Not Reportable 04/23/22 04:19 Acanthocytes (Spur) Not Reportable 04/23/22 04:19 Rouleaux Not Reportable 04/23/22 04:19 Hemoglobin C Crystals Not Reportable 04/23/22 04:19 Schistocytes Not Reportable 04/23/22 04:19 Malaria parasites Not Reportable 04/23/22 04:19 [place] Bodies Not Reportable 04/23/22 04:19 Hem Pathologist Commnt No 04/23/22 04:19 PT 15.6 Sec. (12.2-14.9) H 04/18/22 Unknown INR 1.08 (0.87-1.13) 04/18/22 Unknown APTT 28.6 Sec. (24.2-36.6) 04/18/22 Unknown Activated Coag Time 179 (74-137) H 04/21/22 12:14 Heparin Anti-Xa Level 0.16 U.I./ml (0.3-0.7) L 04/21/22 04:00 ABG pH 7.442 pH Units (7.350-7.450) 05/02/22 04:45 ABG pCO2 37.8 mm Hg 05/02/22 04:45 ABG pO2 83.1 mm Hg (80.0-90.0) 05/02/22 04:45 ABG HCO3 25.2 mmol/L (20.0-26.0) 05/02/22 04:45 ABG O2 Saturation 97.0 % (95.0-99.0) 05/02/22 04:45 ABG O2 Content 12.6 (0.0-44) 05/02/22 04:45 ABG Base Excess 1.1 mmol/L (-2.0-3.0) 05/02/22 04:45 ABG Hemoglobin 9.3 gm/dl (14.0-18.0) L 05/02/22 04:45 ABG Carboxyhemoglobin 1.4 % (0.0-5.0) 05/02/22 04:45 ABG Methemoglobin 0.4 % (0.0-1.5) 05/02/22 04:45 Oxyhemoglobin 95.2 % (95.0-99.0) 05/02/22 04:45 FiO2 30 % 05/02/22 04:45 Sodium 141 mmol/L (137-145) 05/04/22 03:48 Potassium 4.5 mmol/L (3.6-5.0) D 05/04/22 03:48 Chloride 110.5 mmol/L (98-107) H 05/04/22 03:48 Carbon Dioxide 22 mmol/L (22-30) 05/04/22 03:48 Anion Gap 13 mmol/L 05/04/22 03:48 BUN 30 mg/dL (9-20) H 05/04/22 03:48 Creatinine 1.0 mg/dL (0.8-1.3) 05/04/22 03:48 Estimated GFR > 60 ml/min 05/04/22 03:48 BUN/Creatinine Ratio 30 % 05/04/22 03:48 Glucose 123 mg/dL (75-100) H 05/04/22 03:48 POC Glucose 300 mg/dL (70-105) H 05/04/22 16:32 Lactic Acid 1.90 mmol/L (0.7-2.0) 04/21/22 04:20 Calcium 8.1 mg/dL (8.4-10.2) L 05/04/22 03:48 Phosphorus 3.20 mg/dL (2.5-4.5) 05/03/22 04:46 Magnesium 2.10 mg/dL (1.7-2.3) 05/03/22 04:46 Total Bilirubin 0.40 mg/dL (0.1-1.2) 05/04/22 03:48 Direct Bilirubin 0.3 mg/dL (0-0.2) H 04/30/22 04:25 Indirect Bilirubin 0.1 mg/dL 04/30/22 04:25 AST 88 units/L (5-40) H 05/04/22 03:48 ALT 122 units/L (7-56) H 05/04/22 03:48 Alkaline Phosphatase 171 units/L (35-129) H 05/04/22 03:48 Total Creatine Kinase 61 units/L (55-170) 04/29/22 04:20 CK-MB (CK-2) 28.5 ng/mL (0.0-4.0) H 04/19/22 07:11 CK-MB (CK-2) Rel Index 0.8 (0-4) 04/19/22 07:11 Troponin T 2.980 ng/mL (0.00-0.029) H* 04/19/22 07:11 C-Reactive Protein 15.30 mg/dL (0.00-1.30) H 04/28/22 08:20 Total Protein 7.2 g/dL (6.3-8.2) 05/04/22 03:48 Albumin 2.2 g/dL (3.9-5) L 05/04/22 03:48 Albumin/Globulin Ratio 0.4 % 05/04/22 03:48 Triglycerides 214 mg/dL (2-149) H 05/01/22 04:00 Cholesterol 106 mg/dL (50-199) 04/17/22 19:56 LDL Cholesterol Direct 57 mg/dL (50-130) 04/17/22 19:56 HDL Cholesterol 40 mg/dL (40-59) 04/17/22 19:56 Cholesterol/HDL Ratio 2.65 % 04/17/22 19:56 Procalcitonin 2.90 ng/mL (<0.15) 04/28/22 Unknown Urine Color Straw (Yellow) 04/28/22 08:35 Urine Turbidity Clear (Clear) 04/28/22 08:35 Urine pH 6.0 (5.0-7.0) 04/28/22 08:35 Ur Specific [place] 1.000 (1.003-1.030) L 04/28/22 08:35 Urine Protein 300 mg/dl mg/dL (Negative) 04/28/22 08:35 Urine Glucose (UA) Negative mg/dL (Negative) 04/28/22 08:35 Urine Ketones Negative mg/dL (Negative) 04/28/22 08:35 Urine Blood 3+ (Negative) 04/28/22 08:35 Urine Nitrite Negative (Negative) 04/28/22 08:35 Ur Reducing Substances Not Reportable 04/28/22 08:35 Urine Bilirubin Negative (Negative) 04/28/22 08:35 Urine Ictotest Not Reportable 04/28/22 08:35 Urine Urobilinogen < 2.0 mg/dL (<2.0) 04/28/22 08:35 Ur Leukocyte Esterase Small (Negative) 04/28/22 08:35 Urine WBC (Auto) 21.0 /HPF (0.0-6.0) H 04/28/22 08:35 Urine RBC (Auto) 9.0 /HPF (0.0-6.0) 04/28/22 08:35 Urine Bacteria (Auto) 2+ /HPF (Negative) 04/19/22 02:08 Urine WBC Clumps 3+ /HPF 04/19/22 02:08 RBC Casts 34 /LPF 04/19/22 02:08 Urine Mucus Few /HPF 04/28/22 08:35 Urine Yeast (Budding) 3+ /HPF 04/19/22 02:08 Urine Eosinophils None seen (None Seen) 04/19/22 02:08 Urine Creatinine 90.9 mg/dL (0.1-20.0) H 04/19/22 02:08 Urine Sodium 54 mmol/L 04/19/22 02:08 Digoxin 0.7 ng/mL (0.9-2.0) L 05/03/22 04:46 Coronavirus (PCR) Positive (Negative) A 04/29/22 09:38 Influenza A (RT-PCR) Negative (Negative) 04/29/22 11:44 Influenza B (RT-PCR) Negative (Negative) 04/29/22 11:44 Blood Type A POSITIVE 04/21/22 04:37 Antibody Screen Negative 04/21/22 04:37 [place]/IV: Voiding Method Urinal Active Medications - Current Medications Current Medications: Generic Name Dose Route Start Last Admin Trade Name Freq PRN Reason Stop Dose Admin Acetaminophen 650 mg 04/17/22 19:48 04/28/22 21:38 Acetaminophen 325 Mg Tab PO 650 mg Q6H PRN Administration Pain MILD(1-3)/Fever >100.5/CHE Albuterol 2.5 mg 04/17/22 19:48 Albuterol 2.5 Mg/3 Ml Nebu IH Q3HRT PRN Shortness Of Breath Ascorbic Acid 500 mg 05/04/22 22:00 Ascorbic Acid 500 Mg Tab PO 05/10/22 10:01 BID FLACO Aspirin 81 mg 05/05/22 10:00 Aspirin 81 Mg Tab Chew PO QDAY FLACO Atorvastatin Calcium 20 mg 05/04/22 22:00 Atorvastatin 20 Mg Tab PO QHS FLACO Dexamethasone 8 mg 04/30/22 10:00 05/04/22 09:27 Dexamethasone 4 Mg/Ml Vial IV 05/09/22 10:01 8 mg DAILY FLACO Administration Dextrose 0 ml 04/17/22 23:46 Dextrose 50% In Water (25gm) 50 Ml Syringe IV Q30MIN PRN Hypoglycemia Protocol Digoxin 0.125 mg 05/04/22 17:00 05/04/22 17:11 Digoxin 0.125 Mg Tab PO 0.125 mg DAILY@1700 [facility] Administration Docusate Sodium 100 mg 05/04/22 22:00 Docusate Sodium 100 Mg/10 Ml Oral Liqd PO BID [facility] Doxazosin Mesylate 1 mg 05/04/22 22:00 Doxazosin 1 Mg Tab PO QHS [facility] Enoxaparin Sodium 120 mg 05/02/22 10:00 05/04/22 09:26 Enoxaparin 120 Mg/0.8 Ml Inj SUB-Q 120 mg Q12HR [facility] Administration Protocol Furosemide 20 mg 05/04/22 18:00 05/04/22 17:11 Furosemide 20 Mg Tab PO 20 mg 0600,1800 [facility] Administration Furosemide 20 mg 05/04/22 22:00 Furosemide 20 Mg/2 Ml Inj IV 05/05/22 10:01 BID [facility] Hydrophilic Ointment 1 applic 04/18/22 06:02 04/26/22 20:29 Lip Therapy Vaseline TP 1 applic Q2HR PRN Administration Dry Lips Cefepime HCl 2 gm in 100 mls @ 200 mls/hr 04/28/22 08:00 05/04/22 17:10 Cefepime/Ns 2 Gm/100 Ml IV 200 mls/hr Q8H [facility] Administration Protocol Insulin Glargine 35 units 05/03/22 22:00 05/03/22 21:01 Insulin Glargine 100 Units/Ml SUB-Q 35 units QHS [facility] Administration Insulin Human Lispro 0 unit 05/04/22 11:30 05/04/22 17:12 Insulin Lispro 100 Unit/Ml SUB-Q 8 unit ACHS [facility] Administration Protocol Metoprolol Tartrate 12.5 mg 05/04/22 10:00 05/04/22 12:41 Metoprolol Tartrate 25 Mg Tab PO Not Given BID [facility] Multi-Ingred Cream/Lotion/Oil/Oint 1 applic 04/18/22 06:02 Mineral Oil/Petrolatum, White Ophth Oint 3.5 Gm OU Q4HR PRN Dry Eye(s) Oxycodone/Acetaminophen 1 tab 05/04/22 10:00 Oxycodone /Acetaminophen 5-325mg Tab PO Q6H PRN Pain, Moderate (4-6) Senna/Docusate Sodium 2 tab 05/04/22 10:00 05/04/22 09:46 Sennosides/Docusate Sodium 8.6/50 Mg Tab PO Not Given BID [facility]ACO Sodium Chloride 10 ml 04/17/22 22:00 05/04/22 17:11 Sodium Chloride 0.9% 10 Ml Flush Syringe IV 10 ml BID [facility] Administration Sodium Chloride 10 ml 04/17/22 19:48 Sodium Chloride 0.9% 10 Ml Flush Syringe IV PRN PRN LINE FLUSH Zinc Sulfate 220 mg 04/30/22 22:00 05/04/22 09:27 Zinc Sulfate 220 Mg Cap PO 05/10/22 10:01 220 mg BID [facility]AC[facility] Administration Nutrition/Malnutrition Assess - Dietary Evaluation Nutrition/Malnutrition Findings: Nutrition Notes Start: 04/18/22 08:52 Freq: Status: Active Protocol: Document 04/29/22 11:29 ROMELIA (Rec: 04/29/22 11:55 ROMELIA [id number]) Nutrition Notes Initial or Follow up Reassessment Current Diagnosis Acute Kidney Injury,Diabetes, Sepsis,Hypertension, Respiratory Failure Other Pertinent Diagnosis s/p PEA w/ROSC, HFrEF, Pneumonia, Transaminitis, Rabdomyolisis, .. Current Diet TF-Nepro w/CARBSTEADY @ 35 ml/ hr (from D 04/21). Labs/Tests 04/29: BUN 30, Crea 1.6, Glu 236, Ca 8.1. Pertinent Medications 04/29: Humalog 4U, Propofol @ 3.456 ml/hr (91 Kcal), mothers nutritionally unremarkable. Height 5 ft 9 in Weight 115.2 kg [place] Body Weight (kg) 72.72 BMI 37.5 Weight change and time frame No body weight change reported in 11 days. Weight Status Obese Subjective/Other Information RD consult for routine F/U on TF tolerance/continuation assessment. TF continues as prescribed, no further information available at the time. Pt continues on Mechanical Ventilation, O2 saturation @ 100%, according to Physical Assessment History notes. Pt remains incontinent, according to Physical Assessment History notes. Pt presents blisters on the groin and on hand, according to Physical Assessment History notes. Percent of energy/protein needs met: Prescribed TF-Nepro w/ CARBSTEADY @ 35 ml/hr provides for energy/protein needs (1, 500 Kcal/68 g) during LOS, 77% Kcal; 90% AA. Including 91 Kcal from Propofol: 81% Kcal; 90% AA. Burn Absent Trauma Absent GI Symptoms None Food Allergy No Skin Integrity/Comment Blisters on the groin and on hand. 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 Yes Is Patient Ambulatory and/or Out of Bed No REE-([facility]-confined to bed) 2323.608 Kcal/Kg value to use for calculation 17 Approximate Energy Requirements Using 1958 kcal/Kg Calculation Used for Recommendations Kcal/kg Additional Notes Protein: 0.8-1.2 g/Kg AdjBW; 75-113 g/day. Fluids: 1 ml/Kcal, or as per MD. Nutrition Intervention Nutrition Support: Continue TF-Nepro w/CARBSTEADY @ 35 ml/hr. Flush: 220 ml water Q 4 hr, or as per MD. Kcal 1,500 Protein (gm) 68 Carbohydrates (gm) 134 Fat (gm) 80 Fluid (mL) 606 Fiber (gm) 11 % RDI: 77% Kcal; 90% AA. Goal #1 Provide at least 75% of energy /protein needs through Enteral Feeding during LOS. Follow-Up By: 05/06/22 Additional Comments Continue monitoring TF tolerance, ventilation status, vasopressors, and BM.
[2022-05-04] MEDS: METOPROLOL TARTRATE 25 MG TAB PO SCH ×2 (12:41→21:39)
[2022-05-04] MEDS: REMDESIVIR 100 MG in SODIUM CHLORIDE 0.9% 250ML 250 ML IV SCH (13:26)
[2022-05-04] MEDS: SODIUM CHLORIDE 0.9% 50 ML IVPB IV SCH (13:26)
--- NOTE | 2022-05-04 15:32 | Progress Note ---
Assessment and Plan 1. Acute kidney injury: Vasomotor VINCENT in the setting of shock. IV contrast on 04/17. Renal US negative. Monitor renal function. Creatinine level is better. Avoid nephrotoxic agents. Meds dosage based on GFR. 2. FEN: Hypernatremia, improved, monitor. Anion-gap metabolic acidosis, improved, monitor. Replete lytes as needed. Monitor lytes and volume status. 3. S/p V.fib Cardiac arrest, POA: Followed by Cards. Monitor. 4. Shock: Currently off pressors. Monitor. 5. A.fib: On Digoxin. Metoprolol. Followed by Cards. Monitor. 6. Acute Hypoxemic Respiratory Failure: Bilateral Pneumonia- Probable Aspiration. CTA negative for PE, reveals bilateral airspace disease, greater in the Upper lobes. Intubated in the field during code on 04/17. Self extubated and Re-intubated 04/28. S/p extubated. Monitor. 7. Elevated ALT & AST: Monitor. 8. Acute metabolic encephalopathy, POA: Improving. Monitor. 9. Rhabdomyolysis: Improved. Subjective: Patient was seen and examined at the bedside. Examination: General appearance: well-developed, appears stated age, obese, NG tube HEENT: atraumatic, no icterus, pupils equal Neck: trachea midline Respiratory: ctab Heart: S1S2, no murmur Abdomen: soft, bowel sounds heard, NT Integumentary: no obvious rash Neurologic: alert, conversing, moving extremities Ext: trace edema Subjective Date of service: 05/04/22 Principal diagnosis: AHRF; AMS; Pneumonia; Shock; DM II; Severe Metabolic Acidosis Objective - Vital Signs Vital signs: Vital Signs - 12hr 05/04/22 05/04/22 05/04/22 04:00 04:01 05:01 Temperature Pulse Rate 81 70 78 Pulse Rate [ 81 From Monitor] Respiratory 22 24 25 H Rate Blood Pressure 143/76 145/88 O2 Sat by Pulse 100 98 99 Oximetry 05/04/22 05/04/22 05/04/22 06:01 07:01 07:13 Temperature 98.7 F Pulse Rate 69 76 Pulse Rate [ From Monitor] Respiratory 28 H 30 H Rate Blood Pressure 145/88 138/81 O2 Sat by Pulse 98 96 Oximetry 05/04/22 05/04/22 05/04/22 07:57 08:00 08:02 Temperature Pulse Rate 76 78 Pulse Rate [ 76 From Monitor] Respiratory 30 H 13 Rate Blood Pressure 138/81 O2 Sat by Pulse 98 98 97 Oximetry 05/04/22 05/04/22 05/04/22 09:01 10:01 11:01 Temperature Pulse Rate 70 58 L 85 Pulse Rate [ From Monitor] Respiratory 28 H 31 H 31 H Rate Blood Pressure 158/89 144/80 144/80 O2 Sat by Pulse 97 98 98 Oximetry 05/04/22 05/04/22 05/04/22 11:59 12:00 12:01 Temperature 99.0 F Pulse Rate 76 73 Pulse Rate [ 76 From Monitor] Respiratory 30 H 32 H Rate Blood Pressure 146/77 O2 Sat by Pulse 94 93 Oximetry 05/04/22 05/04/22 05/04/22 12:41 13:01 14:01 Temperature Pulse Rate 58 L 78 94 H Pulse Rate [ From Monitor] Respiratory 28 H 17 Rate Blood Pressure 146/77 146/77 O2 Sat by Pulse 98 98 Oximetry 05/04/22 15:01 Temperature Pulse Rate 79 Pulse Rate [ From Monitor] Respiratory 17 Rate Blood Pressure 202/155 O2 Sat by Pulse 95 Oximetry - Lab 05/03/22 04:46 05/04/22 03:48 Most recent lab results ABG pH 7.442 pH Units (7.350-7.450) 05/02/22 04:45 ABG pCO2 37.8 mm Hg 05/02/22 04:45 ABG pO2 83.1 mm Hg (80.0-90.0) 05/02/22 04:45 ABG HCO3 25.2 mmol/L (20.0-26.0) 05/02/22 04:45 ABG O2 Saturation 97.0 % (95.0-99.0) 05/02/22 04:45 Calcium 8.1 mg/dL (8.4-10.2) L 05/04/22 03:48 Phosphorus 3.20 mg/dL (2.5-4.5) 05/03/22 04:46 Magnesium 2.10 mg/dL (1.7-2.3) 05/03/22 04:46 Urine Creatinine 90.9 mg/dL (0.1-20.0) H 04/19/22 02:08 Urine Sodium 54 mmol/L 04/19/22 02:08 Medications & Allergies - Medications Allergies/Adverse Reactions: Allergies lisinopril Allergy (Verified 04/27/22 06:02) Angioedema Home Medications: Home Medications Medication Instructions Recorded Confirmed Last Taken Type AtorvaSTATin 40 mg PO QHS 04/22/22 04/22/22 Unknown History Humulin N 22 units SQ QHS 04/22/22 04/22/22 Unknown History amLODIPine 10 mg PO QAM 04/22/22 04/22/22 Unknown History glipiZIDE 20 mg PO BID 04/22/22 04/22/22 Unknown History metFORMIN 850 mg PO TID 04/22/22 04/22/22 Unknown History Active Medications: Generic Name Dose Route Start Last Admin Trade Name Freq PRN Reason Stop Dose Admin Acetaminophen 650 mg 04/17/22 19:48 04/28/22 21:38 Acetaminophen 325 Mg Tab PO 650 mg Q6H PRN Administration Pain MILD(1-3)/Fever >100.5/CHE Albuterol 2.5 mg 04/17/22 19:48 Albuterol 2.5 Mg/3 Ml Nebu IH Q3HRT PRN Shortness Of Breath Ascorbic Acid 500 mg 05/04/22 22:00 Ascorbic Acid 500 Mg Tab PO 05/10/22 10:01 BID [facility] Aspirin 81 mg 05/05/22 10:00 Aspirin 81 Mg Tab Chew PO QDAY [facility] Atorvastatin Calcium 20 mg 05/04/22 22:00 Atorvastatin 20 Mg Tab PO QHS [facility] Dexamethasone 8 mg 04/30/22 10:00 05/04/22 09:27 Dexamethasone 4 Mg/Ml Vial IV 05/09/22 10:01 8 mg DAILY [facility] Administration Dextrose 0 ml 04/17/22 23:46 Dextrose 50% In Water (25gm) 50 Ml Syringe IV Q30MIN PRN Hypoglycemia Protocol Digoxin 0.125 mg 05/04/22 17:00 Digoxin 0.125 Mg Tab PO DAILY@1700 [facility] Docusate Sodium 100 mg 05/04/22 22:00 Docusate Sodium 100 Mg/10 Ml Oral Liqd PO BID [facility] Doxazosin Mesylate 1 mg 05/04/22 22:00 Doxazosin 1 Mg Tab PO QHS [facility] Enoxaparin Sodium 120 mg 05/02/22 10:00 05/04/22 09:26 Enoxaparin 120 Mg/0.8 Ml Inj SUB-Q 120 mg Q12HR [facility] Administration Protocol Furosemide 20 mg 05/04/22 18:00 Furosemide 20 Mg Tab PO 0600,1800 [facility] Furosemide 20 mg 05/04/22 22:00 Furosemide 20 Mg/2 Ml Inj IV 05/05/22 10:01 BID [facility] Hydrophilic Ointment 1 applic 04/18/22 06:02 04/26/22 20:29 Lip Therapy Vaseline TP 1 applic Q2HR PRN Administration Dry Lips Cefepime HCl 2 gm in 100 mls @ 200 mls/hr 04/28/22 08:00 05/04/22 09:26 Cefepime/Ns 2 Gm/100 Ml IV 200 mls/hr Q8H [facility] Administration Protocol Insulin Glargine 35 units 05/03/22 22:00 05/03/22 21:01 Insulin Glargine 100 Units/Ml SUB-Q 35 units QHS [facility] Administration Insulin Human Lispro 0 unit 05/04/22 11:30 05/04/22 12:41 Insulin Lispro 100 Unit/Ml SUB-Q Not Given ACHS [facility] Protocol Metoprolol Tartrate 12.5 mg 05/04/22 10:00 05/04/22 12:41 Metoprolol Tartrate 25 Mg Tab PO Not Given BID [facility] Multi-Ingred Cream/Lotion/Oil/Oint 1 applic 04/18/22 06:02 Mineral Oil/Petrolatum, White Ophth Oint 3.5 Gm OU Q4HR PRN Dry Eye(s) Oxycodone/Acetaminophen 1 tab 05/04/22 10:00 Oxycodone /Acetaminophen 5-325mg Tab PO Q6H PRN Pain, Moderate (4-6) Senna/Docusate Sodium 2 tab 05/04/22 10:00 05/04/22 09:46 Sennosides/Docusate Sodium 8.6/50 Mg Tab PO Not Given BID [facility] Sodium Chloride 10 ml 04/17/22 22:00 05/04/22 09:28 Sodium Chloride 0.9% 10 Ml Flush Syringe IV 10 ml BID [facility] Administration Sodium Chloride 10 ml 04/17/22 19:48 Sodium Chloride 0.9% 10 Ml Flush Syringe IV PRN PRN LINE FLUSH Zinc Sulfate 220 mg 04/30/22 22:00 05/04/22 09:27 Zinc Sulfate 220 Mg Cap PO 05/10/22 10:01 220 mg BID [facility] Administration
--- NOTE | 2022-05-04 15:37 | Progress Note ---
Assessment and Plan Electrophysiology Follow Up Ventricular fibrillation cardiac arrest s/p resuscitation Nonischemic cardiomyopathy Cardiac cath this admission revealing normal coronary circulation LVEF 15-20% COVID-19 infection Acute hypoxic respiratory failure Type 2 diabetes mellitus Persistent atrial fibrillation Anemia Acute renal failure Transaminitis Recommend: ICD implant for secondary prevention (or life-vest if ICD can not be implanted) prior to hospital discharge once all other issues including respiratory status are stable. Patient may be transferred to [facility] for ICD implant. Will consider restarting amiodarone once LFTs back to normal. Meantime maximize GDMT including beta vanna and maintain electrolytes in normal range. Subjective Date of service: 05/04/22 Principal diagnosis: AHRF; AMS; Pneumonia; Shock; DM II; Severe Metabolic Acidosis Interval history: Remains in ICU. Currently tachypnic and short of breath Objective Vital Signs Temp Pulse Pulse Resp BP Pulse Ox 05/04/22 15:01 79 17 202/155 95 05/04/22 14:01 94 H 17 146/77 98 05/04/22 13:01 78 28 H 146/77 98 05/04/22 12:41 58 L 05/04/22 12:01 73 32 H 146/77 93 05/04/22 12:00 76 76 30 H 94 05/04/22 11:59 99.0 F 05/04/22 11:01 85 31 H 144/80 98 05/04/22 10:01 58 L 31 H 144/80 98 05/04/22 09:01 70 28 H 158/89 97 05/04/22 08:02 78 13 138/81 97 05/04/22 08:00 76 76 30 H 98 05/04/22 07:57 98 05/04/22 07:13 98.7 F 05/04/22 07:01 76 30 H 138/81 96 05/04/22 06:01 69 28 H 145/88 98 05/04/22 05:01 78 25 H 145/88 99 05/04/22 04:01 70 24 143/76 98 05/04/22 04:00 81 81 22 100 05/04/22 03:01 55 L 23 137/77 100 05/04/22 02:01 71 22 127/70 100 05/04/22 01:01 64 23 127/70 100 05/04/22 00:16 97.4 F L 05/04/22 00:09 75 27 H 142/74 99 05/04/22 00:01 68 34 H 142/74 99 05/04/22 00:00 77 72 20 100 05/03/22 23:01 82 30 H 141/71 99 05/03/22 22:01 77 30 H 136/81 99 05/03/22 21:02 97.8 F 05/03/22 21:01 80 30 H 144/74 100 05/03/22 20:26 99 05/03/22 20:01 76 30 H 135/73 100 05/03/22 19:19 81 79 24 100 05/03/22 19:01 70 26 H 144/77 99 05/03/22 18:31 75 19 135/76 100 05/03/22 18:15 80 13 135/76 99 05/03/22 18:12 97.9 F 05/03/22 18:01 65 30 H 135/76 97 05/03/22 17:45 83 22 145/77 98 05/03/22 17:43 73 145/77 05/03/22 17:31 83 20 145/77 96 05/03/22 17:15 69 30 H 145/77 97 05/03/22 17:01 76 29 H 145/77 98 05/03/22 16:45 74 26 H 144/87 99 05/03/22 16:31 81 20 144/87 97 05/03/22 16:15 76 15 144/87 95 05/03/22 16:01 77 19 144/87 95 05/03/22 16:00 77 77 18 98 05/03/22 15:45 78 29 H 127/89 98 - Physical Examination HEENT: Positive: EOMI Neck: Positive: neck supple Cardiac: Positive: irregularly irregular, Systolic Murmur (II/) Lungs: Positive: Rhonchi Abdomen: Positive: Soft Skin: Positive: Rash (On the left hand which is dressed), Other (Blisters on the right hand) Extremities: Present: edema (Trace) - Labs and Meds Cardiac Enzymes 05/04/22 Range/Units 03:48 AST 88 H (5-40) units/L Comprehensive Metabolic Panel 05/04/22 Range/Units 03:48 Sodium 141 (137-145) mmol/L Potassium 4.5 D (3.6-5.0) mmol/L Chloride 110.5 H (98-107) mmol/L Carbon Dioxide 22 (22-30) mmol/L BUN 30 H (9-20) mg/dL Creatinine 1.0 (0.8-1.3) mg/dL Glucose 123 H (75-100) mg/dL Calcium 8.1 L (8.4-10.2) mg/dL AST 88 H (5-40) units/L ALT 122 H (7-56) units/L Alkaline Phosphatase 171 H (35-129) units/L Total Protein 7.2 (6.3-8.2) g/dL Albumin 2.2 L (3.9-5) g/dL - Allied health notes Allied health notes reviewed: nursing
[2022-05-04] MEDS ORDERED: DIGOXIN 0.125 MG TAB PO SCH (17:00)
[2022-05-04] MEDS: DOCUSATE SODIUM 100 MG/10 ML ORAL LIQD PO SCH (21:33)
[2022-05-04] MEDS: DOXAZOSIN 1 MG TAB PO SCH (21:39)
[2022-05-04] MEDS: ASCORBIC ACID 500 MG TAB PO SCH (21:39)
[2022-05-04] MEDS: FUROSEMIDE 20 MG/2 ML INJ IV SCH (21:40)
[2022-05-04] MEDS: INSULIN GLARGINE 100 UNITS/ML SUB-Q SCH (21:40)
[2022-05-04] MEDS ORDERED: FAMOTIDINE 20 MG TAB PO SCH (22:00)
[2022-05-05 04:45] LABS: Hematocrit 32.2 % (35.5-45.6); Hemoglobin 10.1 gm/dl (11.8-15.2); Mean Corpuscular HGB Conc 31 % (32-34); Mean Corpuscular Volume 91 fl (84-94); Platelet Count 644 K/mm3 (140-440); Red Blood Count 3.54 M/mm3 (3.65-5.03); Red Cell Distribution Width 15.3 % (13.2-15.2)
[2022-05-05 04:58] LABS: Alanine Aminotransferase 107 units/L (7-56); Albumin 2.9 g/dL (3.9-5); BUN/Creatinine Ratio 26; Blood Urea Nitrogen 26 mg/dL (9-20); Calcium 8.2 mg/dL (8.4-10.2); Hemolysis Index 1
[2022-05-05] MEDS: FUROSEMIDE 20 MG TAB PO SCH (05:14)
[2022-05-05] MEDS ORDERED: ALBUTEROL 8.5 GM MDI INHALATION IH PRN (09:00)
[2022-05-05] MEDS: CEFEPIME/NS 2 GM/100 ML 2 GM/100 ML BAG IV SCH ×3 (09:17→23:19)
[2022-05-05] MEDS: INSULIN LISPRO 100 UNIT/ML SUB-Q SCH ×4 (09:18→21:06)
[2022-05-05] MEDS: ASPIRIN 81 MG TAB CHEW PO SCH (09:19)
[2022-05-05] MEDS: DOCUSATE SODIUM 100 MG/10 ML ORAL LIQD PO SCH ×2 (09:19→21:05)
[2022-05-05] MEDS: dexAMETHasone 4 MG/ML VIAL IV SCH (09:19)
[2022-05-05] MEDS: FUROSEMIDE 20 MG/2 ML INJ IV SCH ×2 (09:20→21:07)
[2022-05-05] MEDS: ENOXAPARIN 120 MG/0.8 ML INJ SUB-Q SCH ×2 (09:20→21:06)
[2022-05-05] MEDS: METOPROLOL TARTRATE 25 MG TAB PO SCH ×2 (09:20→21:04)
[2022-05-05] MEDS: ZINC SULFATE 220 MG CAP PO SCH ×2 (09:21→21:04)
[2022-05-05] MEDS: ASCORBIC ACID 500 MG TAB PO SCH ×2 (09:21→21:05)
[2022-05-05] MEDS: SENNOSIDES/DOCUSATE SODIUM 8.6/50 MG TAB PO SCH ×2 (09:21→21:07)
--- NOTE | 2022-05-05 10:09 | Progress Note ---
Assessment and Plan 1. Acute kidney injury: Vasomotor VINCENT in the setting of shock. IV contrast on 04/17. Renal US negative. Monitor renal function. Creatinine level is better. Avoid nephrotoxic agents. Meds dosage based on GFR. 2. FEN: Hypernatremia, improved, monitor. Anion-gap metabolic acidosis, improved, monitor. Replete lytes as needed. Monitor lytes and volume status. 3. S/p V.fib Cardiac arrest, POA: Followed by Cards. Monitor. 4. Shock: Currently off pressors. Monitor. 5. A.fib: On Digoxin. Metoprolol. Followed by Cards. Monitor. 6. Acute Hypoxemic Respiratory Failure: Bilateral Pneumonia- Probable Aspiration. CTA negative for PE, reveals bilateral airspace disease, greater in the Upper lobes. Intubated in the field during code on 04/17. Self extubated and Re-intubated 04/28. S/p extubated. Monitor. 7. Elevated ALT & AST: Monitor. 8. Acute metabolic encephalopathy, POA: Improving. Monitor. 9. Rhabdomyolysis: Improved. D/w his . Subjective: Patient was seen and examined at the bedside. Per staff patient developed stridor, receiving Epinephrine neds. Examination: General appearance: well-developed, appears stated age, obese, NG tube HEENT: atraumatic, no icterus, pupils equal Neck: trachea midline Respiratory: wheezing noted Heart: S1S2, no murmur Abdomen: soft, bowel sounds heard, NT Integumentary: no obvious rash Neurologic: alert, conversing, moving extremities Ext: trace edema Subjective Date of service: 05/05/22 Principal diagnosis: AHRF; AMS; Pneumonia; Shock; DM II; Severe Metabolic Acidosis Objective - Vital Signs Vital signs: Vital Signs - 12hr 05/04/22 05/04/22 05/04/22 23:00 23:39 23:51 Temperature 97.6 F Pulse Rate 64 63 Pulse Rate [ From Monitor] Respiratory 28 H 25 H Rate Blood Pressure 165/87 165/87 O2 Sat by Pulse 99 100 Oximetry 05/05/22 05/05/22 05/05/22 00:00 00:01 00:03 Temperature Pulse Rate 56 L 55 L 60 Pulse Rate [ 65 From Monitor] Respiratory 22 22 24 Rate Blood Pressure 120/64 120/64 O2 Sat by Pulse 100 100 100 Oximetry 05/05/22 05/05/22 05/05/22 00:43 01:01 02:01 Temperature Pulse Rate 62 53 L 64 Pulse Rate [ From Monitor] Respiratory 24 23 21 Rate Blood Pressure 120/64 120/59 136/83 O2 Sat by Pulse 100 100 99 Oximetry 05/05/22 05/05/22 05/05/22 03:00 04:00 04:27 Temperature Pulse Rate 63 71 Pulse Rate [ 69 From Monitor] Respiratory 25 H 17 Rate Blood Pressure 141/80 117/89 O2 Sat by Pulse 97 99 98 Oximetry 05/05/22 05/05/22 05/05/22 04:38 05:00 06:00 Temperature 98.4 F Pulse Rate 78 70 Pulse Rate [ From Monitor] Respiratory 14 27 H Rate Blood Pressure 130/94 140/86 O2 Sat by Pulse 98 99 Oximetry 05/05/22 05/05/22 05/05/22 07:00 07:12 08:00 Temperature 97.7 F Pulse Rate 81 73 Pulse Rate [ 87 From Monitor] Respiratory 31 H 26 H Rate Blood Pressure 140/86 146/71 O2 Sat by Pulse 100 96 Oximetry 05/05/22 05/05/22 05/05/22 09:00 09:20 09:45 Temperature Pulse Rate 87 77 Pulse Rate [ From Monitor] Respiratory 19 Rate Blood Pressure 169/98 170/89 O2 Sat by Pulse 97 99 Oximetry 05/05/22 10:00 Temperature Pulse Rate 87 Pulse Rate [ From Monitor] Respiratory 28 H Rate Blood Pressure 202/174 O2 Sat by Pulse 98 Oximetry - Lab 05/05/22 03:54 05/05/22 03:54 Most recent lab results ABG pH 7.442 pH Units (7.350-7.450) 05/02/22 04:45 ABG pCO2 37.8 mm Hg 05/02/22 04:45 ABG pO2 83.1 mm Hg (80.0-90.0) 05/02/22 04:45 ABG HCO3 25.2 mmol/L (20.0-26.0) 05/02/22 04:45 ABG O2 Saturation 97.0 % (95.0-99.0) 05/02/22 04:45 Calcium 8.2 mg/dL (8.4-10.2) L 05/05/22 03:54 Phosphorus 3.20 mg/dL (2.5-4.5) 05/03/22 04:46 Magnesium 2.10 mg/dL (1.7-2.3) 05/03/22 04:46 Urine Creatinine 90.9 mg/dL (0.1-20.0) H 04/19/22 02:08 Urine Sodium 54 mmol/L 04/19/22 02:08 Medications & Allergies - Medications Allergies/Adverse Reactions: Allergies lisinopril Allergy (Verified 04/27/22 06:02) Angioedema Home Medications: Home Medications Medication Instructions Recorded Confirmed Last Taken Type AtorvaSTATin 40 mg PO QHS 04/22/22 04/22/22 Unknown History Humulin N 22 units SQ QHS 04/22/22 04/22/22 Unknown History amLODIPine 10 mg PO QAM 04/22/22 04/22/22 Unknown History glipiZIDE 20 mg PO BID 04/22/22 04/22/22 Unknown History metFORMIN 850 mg PO TID 04/22/22 04/22/22 Unknown History Active Medications: Generic Name Dose Route Start Last Admin Trade Name Freq PRN Reason Stop Dose Admin Acetaminophen 650 mg 04/17/22 19:48 04/28/22 21:38 Acetaminophen 325 Mg Tab PO 650 mg Q6H PRN Administration Pain MILD(1-3)/Fever >100.5/CHE Albuterol 2 puff 05/05/22 09:00 Albuterol 8.5 Gm Mdi Inhalation IH Q4HRT PRN SHORTNESS OF BREATH Ascorbic Acid 500 mg 05/04/22 22:00 05/05/22 09:21 Ascorbic Acid 500 Mg Tab PO 05/10/22 10:01 500 mg BID FLACO Administration Aspirin 81 mg 05/05/22 10:00 05/05/22 09:19 Aspirin 81 Mg Tab Chew PO 81 mg QDAY FLACO Administration Atorvastatin Calcium 20 mg 05/04/22 22:00 05/04/22 21:38 Atorvastatin 20 Mg Tab PO 20 mg QHS FLACO Administration Dexamethasone 8 mg 04/30/22 10:00 05/05/22 09:19 Dexamethasone 4 Mg/Ml Vial IV 05/09/22 10:01 8 mg DAILY FLACO Administration Dextrose 0 ml 04/17/22 23:46 Dextrose 50% In Water (25gm) 50 Ml Syringe IV Q30MIN PRN Hypoglycemia Protocol Digoxin 0.125 mg 05/04/22 17:00 05/04/22 17:11 Digoxin 0.125 Mg Tab PO 0.125 mg DAILY@1700 [facility] Administration Docusate Sodium 100 mg 05/04/22 22:00 05/05/22 09:19 Docusate Sodium 100 Mg/10 Ml Oral Liqd PO Not Given BID [facility] Doxazosin Mesylate 1 mg 05/04/22 22:00 05/04/22 21:39 Doxazosin 1 Mg Tab PO 1 mg QHS [facility] Administration Enoxaparin Sodium 120 mg 05/02/22 10:00 05/05/22 09:20 Enoxaparin 120 Mg/0.8 Ml Inj SUB-Q 120 mg Q12HR [facility] Administration Protocol Furosemide 20 mg 05/04/22 18:00 05/05/22 05:14 Furosemide 20 Mg Tab PO 20 mg 0600,1800 [facility] Administration Hydrophilic Ointment 1 applic 04/18/22 06:02 04/26/22 20:29 Lip Therapy Vaseline TP 1 applic Q2HR PRN Administration Dry Lips Cefepime HCl 2 gm in 100 mls @ 200 mls/hr 04/28/22 08:00 05/05/22 09:17 Cefepime/Ns 2 Gm/100 Ml IV 05/06/22 00:29 200 mls/hr Q8H [facility] Administration Protocol Insulin Glargine 35 units 05/03/22 22:00 05/04/22 21:40 Insulin Glargine 100 Units/Ml SUB-Q 35 units QHS [facility] Administration Insulin Human Lispro 0 unit 05/04/22 11:30 05/05/22 09:18 Insulin Lispro 100 Unit/Ml SUB-Q Not Given ACHS [facility] Protocol Metoprolol Tartrate 25 mg 05/05/22 10:00 05/05/22 09:20 Metoprolol Tartrate 25 Mg Tab PO 25 mg BID [facility] Administration Multi-Ingred Cream/Lotion/Oil/Oint 1 applic 04/18/22 06:02 Mineral Oil/Petrolatum, White Ophth Oint 3.5 Gm OU Q4HR PRN Dry Eye(s) Oxycodone/Acetaminophen 1 tab 05/04/22 10:00 Oxycodone /Acetaminophen 5-325mg Tab PO Q6H PRN Pain, Moderate (4-6) Senna/Docusate Sodium 2 tab 05/04/22 10:00 05/05/22 09:21 Sennosides/Docusate Sodium 8.6/50 Mg Tab PO Not Given BID FLACO Sodium Chloride 10 ml 04/17/22 22:00 05/05/22 09:18 Sodium Chloride 0.9% 10 Ml Flush Syringe IV 10 ml BID [facility]ACO Administration Sodium Chloride 10 ml 04/17/22 19:48 Sodium Chloride 0.9% 10 Ml Flush Syringe IV PRN PRN LINE FLUSH Zinc Sulfate 220 mg 04/30/22 22:00 05/05/22 09:21 Zinc Sulfate 220 Mg Cap PO 05/10/22 10:01 220 mg BID FLACO Administration
[2022-05-05] MEDS ORDERED: EPINEPHrine RACEMIC 2.25% 0.5ML NEBU IH ONE ×2 (10:11→10:30)
--- NOTE | 2022-05-05 11:01 | Progress Note ---
Assessment and Plan Assessment and plan: This is a 62 year old male with OHS, HTN, DM, metabolic syndrome, s/p vfib cardiac arrest, Septic shock, aspiration pneumonia, transaminitis, VINCENT with acute metabolic encephalopathy Neuro: Acute metabolic encephalopathy, facial contusions s/p fall -CT head showed no focal intra-axial mass, hemorrhage, hydrocephalus or acute or large territorial infarct -Reorientation as needed -Maintain sleep-wake cycle -Neurology consulted, appreciate recommendations -As needed analgesia Cardiac: A. fib RVR , s/p V. fib cardiac arrest, cardiogenic shock, h/o atrial fibrillation s/p cardioversion, HTN -Cardiology consulted, appreciate recommendations -S/p V. fib cardiac arrest -S/p dopamine drip and dobutamine drip -Amio d/c for increased LFTs -s/p X 2 dose IV dig, now on PO Dig -s/p IV heparin -Blood pressure monitoring per protocol -s/p Vasopressor support with levophed, epinephrine, vasopressin -Echocardiogram shows EF of 15 to 20% -Left heart cath showed severe nonischemic cardiomyopathy with patent coronary arteries, which per cardiology presumably resulted in a primary cardiac arrest. -Plan to DC with life vest Respiratory: Acute hypoxic respiratory failure, h/o OHS -CCM consulted, appreciate recommendations -Intubated on 04/17 with 7.0 OETT @ 22 at the lips, reintubated 04/23 for blown cuff, self extubated 04/28 and reintubated but extubated 05/02 -Currently on NC -stridor this morning-> given racemic epi x1 -Chest US showed no pleural effusion -Pulmonary hygiene -SPO2 monitoring GI: Transaminitis (resolving), moderate protein calorie malnutrition -24 hours -895 mL -PPI -Cardiac CC diet, pureed -BR: Senokot -Trend LFTs : Acute kidney injury likely secondary to vasomotor nephropathy (resolving) -Nephrology consulted, appreciate recommendations -Monitor intake and output -Renally dose medications -Avoid nephrotoxic medications -s/p bicarb gtt -PO lasix, IV lasix for 24 hours (05/04) -Renal ultrasound shows distended gallbladder, no cholecystic fluid -Trend BMP ID: COVID [id number] PNA, Aspiration pneumonia, Sepsis, lactic acidosis -ID consulted, appreciate recommendations -COVID 19 PCR (+) -CTA chest shows extensive bilateral airspace disease present dependent portions and greater in the upper lobes, given distribution could be related to aspiration -Admitted with hypotension, lactic acidosis, acute kidney injury, CXR showed pna -Antibiotic therapy with cefepime, vanco -Redemsevir for 5 days -Contact and droplet precautions -f/u blood culture -Blood culture with NGTD, Sputum culture with usual adina -Monitor WBC and temperature curve -Trend COVID 19 inflammatory markers Endo: h/o DM -Avoid hypoglycemia -SSI -Accu-Cheks ACHS -Long-acting insulin, titrate as needed Heme: Leukocytosis, elevated D-dimer -CTA chest shows no pulmonary embolism -Trend CBC -Transfuse for hemoglobin less than 7 -Bilateral Doppler ultrasound showed no DVT -Lovenox BID -SCDs to BLE while in bed The high probability of a clinically significant, sudden or life threatening deterioration of the [multiple] system(s) required my full and direct attention, intervention and personal management. The aggregate critical care time was [60] minutes. This time is in addition to time spent performing reported procedures but includes the following: [x] Data Review and interpretation [x] Patient assessment and monitoring of vital signs [x] Documentation [x] Medication orders and management Disposition Plan: icu Total Time Spent with Patient (Minutes): 60 History Interval history: This is is a 62-year-old male with OHS, HTN, DM, metabolic syndrome presents the emergency department on 04/17 via EMS s/p cardiac arrest. As per family patient presented to [facility] outpatient clinic for evaluation for chest pain and subsequently went to the restroom where he was found unresponsive and EMS arrived and noted the patient had a V. fib arrest and ACLS was initiated and patient was transported to [facility] for further evaluation. Patient was noted to have aspirated into the oropharynx with suspected aspiration pneumonia complicated by acute hypoxic respiratory failure, septic shock and cardiac arrest. Patient was initiated on the sepsis protocol, IV vasopressor support and admitted to the ICU with consults to [facility], nephrology and cardiology. Hospital Course to Date: 04/18: Severely acidotic this am, now on bcarb gtt. On high dose pressors- Levophe d and Vaso. Afib in control rate on the monitor, on Amiodarone and heparin gtt per protocol. Cardiology is following. Patient remains afebrile and leukocytosis improved this am. Now with worsen renal function and low UOP. Patient's EF is 25 to 30%, Dobutamine gtt initiated. Continue current IV abx, continue to trend troponin and lactic acid. Nephrology also consulted for further recs. BLE swelling noted, BLE doppler ordered to r/o DVT. 04/19: Agitation with low SPO2 overnight, sedation increased. This am ABG with worsen hypoxia on 40% Fio2, SPO2 at 90% this am. Fio2 increased to 50%, SPO2 improved above 92%. Remains on multiple pressors and bcarb gtt. Now on dopamine gtt, in Afib with RVR on the monitor. Still on Amiodarone and heparin gtts. Echo noted, EF 15 to 20%. Cardiology is following. With worsen renal function, however making urine this am. No indication for [employer] at this per Nephro. Will continue to monitor. Monitor and replace electrolytes as needed 04/20: Nephrology spoke to at bedside re HD, cardiology will proceed with LHC if patient is to recieve HD post procedure, vent changes per [facility], Sedated with fentanyl and propofol with heparin and amio gtt infusing. 04/21: LHC today. Nephrology will continue IVF and if renal function worsens then will proceed HD with consent from family. Patient became hypoxic with FiO2 at 40% yesterday evening and is currently at 65%. 04/22: Patient was started on vasopressin IV fluids yesterday and his creatinine decreased from 4.2 to 2.9. Patient severely agitated while on propofol and fentanyl. Started low-dose Seroquel and started to wean propofol as tolerated. Patient does follow commands today. Increase in lantus. IV fluids decreased, started on dobutamine per [facility] and wean vasopressin for target MAP of 65-70 and SBP greater than 110 04/23: This morning patient being extremely hypertensive with SBP into 200s and given metoprolol. Rn asked to wean propofol as tolerated. Dobutamine decreased to 2.5. Cr improved. US chest completed and showed no pleural effusions. This afternoon alerted by RN that RT believes pt bite through his tube and anesthesia was called to bedside for tube exchange. Decision was made to extubate and reintubate the patient. CXR ordered. 04/24: Patient placed on CPAP trial. Renal numbers look better today. Cardiology would like to try digoxin. No acute events reported overnight. 04/25: Patient now with hypernatremia, slightly increased renal function today but still putting out over 1 L urine over the past 24 hours. Will increase free water flushes and repleate potassium cautiously. Cardilogy will like to continue current management. PSV when able 04/26: Cardiology will increase amiodarone due to heart rate being in the 110s to 120s and will hold off digoxin, remains on dobutamine drip. Hypernatremia improving. Remains on D5 W per nephrology. PSV this AM. Rash noted to trunk, arms, chest. RN to hold off Seroquel. Started on IV Benadryl. Already n.p.o. famotidine. Updated [facility] physician who also informed me that the patient is allergic to lisinopril (angioedema) 04/27: Tolerating PSV trail this am on low dose sedation. Per CCM, plan to wean vent setting for possible extubation. If patient requires higher dose of sedation, will add precedex gtt for trial to wean off sedation. Patient with low grade fevers with worsening leukopcytosis, B.cultures from yesterday with NGTD. Will do a lines vacations, D/C CVC and penn. Patient is hemodynamically stable, will continue to monitor for now. Patient is also net positive balance since admit, hypernatremia resolved, and renal function improved, will decrease IVF for now. Nephrology is also following. 04/28: Self-extubated this afternoon, requiring emergent reintubation. Flash pulmonary edema noted during intubation, X1 dose of IV lasix administered. Currently hypertensive and Afib with RVR, HR in the 110-130s, sedations resumed. Persistent fevers overnight with leukocytosis, repeat blood culture with no growth. Orders placed for UA and repeat sputum culture. Empiric IV Abx, Cefepine and vanc initiated. ID was also consulted. Continue vent wean/adjustment per CCM. Penn was reinserted overnight due to retention, will reassess in the next 24hrs to 48hrs. 04/29: Remains stable on the vent, this am CXR and ABG with significant improvement. On low dose pressors this am, MAP in the 70s, titrate pressor to maintain MAP in the 70s. Still with persistent fevers despite current IV abx, repeat cultures with NGTD. Orders placed for COVID and Flu PCR.. Worsen LFTs this am, d/w Cardio will D/C PO amio, X2 dose of IV digoxin for rate control. Renal function stable, patient responded well to IV lasix, over 5L out in last 24hrs. Will hold off on diurese today per Nephro, will reassess in the am. Insulin regimen adjusted for hyperglycemia. 04/30: Stable on low vent settings this am. Off pressors, fevers and leukocytosis improved. COVID PCR came back positive, IV steroids initiated. And ID recommendations noted- continue Cefepine and Vanc, Redemsevir added. Remains with transaminitis, abdominal US pending. Patient remains in Afib control, tolerated IV dig. Plan for daily PO dig per Cardiology. Renal function is stable, X1 dose of IV lasix today. K repleted, continue to monitor and replace electrolytes as needed. 05/01: Remains stable on the vent. Fevers improved and VSS. Plan to wean propofol gtt for possible PSV trial this am. Okay to SBT on low dose fentynal gtt per [facility]. Tolerated IV lasix, good UOP overnight. Renal function remains stable, will continue to monitor. Possible transfer to [place] whenever a bed is available. 05/02: Off sedations this am, tolerating PSV trial. Plan for possible extubation today per [facility]. Renal function continue to improve, X1 dose of IV lasix given prior to possible extubation. PT/OT/Speech ordered. 05/03: s/p extubation, stable on 2L NC. Rhonchi and crackles appreciated through lungs today, no respiratory distress noted. Will repeat CXR this am. Will d/w C CM and nephro of possible additional lasix today. Renal function continue to improved with good UOP, Penn removed. Patient remains in Afib control, on PO digoxin, and now on therapeutic Lovenox. Per Cardio plan to arrange for LifeVest or AICD prior to discharge. D/w [facility] will continue ICU care for another 24hrs to 48hrs as patient is still critically ill. 05/04: Patient remains on NC. No acute events overnight. TID lispro discontinued. Renal function continues to improve. 05/05: Alerted by RN that patient was found almost OOB with a large BM, also noted very diminished breath sound and stridor. Asked RT to admin racemic epi. , albuterol neb changed to diskus. After epi, stridor is improved. Remained on 2L NC during episode with SpO2 in the high 90s. Noted hypertension and metoprolol adjusted. Possible elective reintubation Hospitalist Physical - Constitutional Vitals: Temp Pulse Resp BP Pulse Ox 97.7 F 87 28 H 202/174 98 05/05/22 07:12 05/05/22 10:00 05/05/22 10:00 05/05/22 10:00 05/05/22 10:00 General appearance: Present: obese, other - EENT Eyes: Present: PERRL, EOM intact ENT: hearing decreased - Neck Neck: Present: normal ROM - Respiratory Respiratory effort: labored Respiratory: bilateral: rhonchi - Cardiovascular Rhythm: irregularly irregular Heart Sounds: Present: S1 & S2. Absent: systolic murmur, diastolic murmur - Extremities Extremities: no ischemia, pulses intact, pulses symmetrical, normal temperature, normal color Extremity abnormal: edema Peripheral Pulses: within normal limits - Abdominal General gastrointestinal: soft, non-tender, non-distended, normal bowel sounds - Integumentary Integumentary: Present: warm, dry - Psychiatric Psychiatric: cooperative - Neurologic Neurologic: moves all extremities - Allied Health Allied health notes reviewed: nursing, RT, social work HEART Score - HEART Score Troponin: Troponin T 2.980 ng/mL (0.00-0.029) H* 04/19/22 07:11 Results - Labs CBC & Chem 7: 05/05/22 03:54 05/05/22 03:54 Labs: Laboratory Last Values WBC 16.2 K/mm3 (4.5-11.0) H 05/05/22 03:54 RBC 3.54 M/mm3 (3.65-5.03) L 05/05/22 03:54 Hgb 10.1 gm/dl (11.8-15.2) L 05/05/22 03:54 Hct 32.2 % (35.5-45.6) L 05/05/22 03:54 MCV 91 fl (84-94) 05/05/22 03:54 MCH 29 pg (28-32) 05/05/22 03:54 MCHC 31 % (32-34) L 05/05/22 03:54 RDW 15.3 % (13.2-15.2) H 05/05/22 03:54 Plt Count 644 K/mm3 (140-440) H 05/05/22 03:54 Lymph % (Auto) 5.7 % (13.4-35.0) L 04/29/22 04:20 Sunflower % (Auto) 7.8 % (0.0-7.3) H 04/29/22 04:20 Eos % (Auto) 3.9 % (0.0-4.3) 04/29/22 04:20 Baso % (Auto) 0.6 % (0.0-1.8) 04/29/22 04:20 Lymph # (Auto) 1.1 K/mm3 (1.2-5.4) L 04/29/22 04:20 Sunflower # (Auto) 1.5 K/mm3 (0.0-0.8) H 04/29/22 04:20 Eos # (Auto) 0.8 K/mm3 (0.0-0.4) H 04/29/22 04:20 Baso # (Auto) 0.1 K/mm3 (0.0-0.1) 04/29/22 04:20 Add Manual Diff Complete 04/23/22 04:19 Total Counted 100 04/23/22 04:19 Seg Neutrophils % 82.0 % (40.0-70.0) H 04/29/22 04:20 Seg Neuts % (Manual) 74.0 % (40.0-70.0) H 04/23/22 04:19 Band Neutrophils % 2.0 % 04/23/22 04:19 Lymphocytes % (Manual) 10.0 % (13.4-35.0) L 04/23/22 04:19 Reactive Lymphs % (Man) 0 % 04/23/22 04:19 Monocytes % (Manual) 7.0 % (0.0-7.3) 04/23/22 04:19 Eosinophils % (Manual) 7.0 % (0.0-4.3) H 04/23/22 04:19 Basophils % (Manual) 0 % (0.0-1.8) 04/23/22 04:19 Metamyelocytes % 0 % 04/23/22 04:19 Myelocytes % 0 % 04/23/22 04:19 Promyelocytes % 0 % 04/23/22 04:19 Blast Cells % 0 % 04/23/22 04:19 Nucleated RBC % Not Reportable 04/23/22 04:19 Seg Neutrophils # 16.3 K/mm3 (1.8-7.7) H 04/29/22 04:20 Seg Neutrophils # Man 8.0 K/mm3 (1.8-7.7) H 04/23/22 04:19 Band Neutrophils # 0.2 K/mm3 04/23/22 04:19 Lymphocytes # (Manual) 1.1 K/mm3 (1.2-5.4) L 04/23/22 04:19 Abs React Lymphs (Man) 0.0 K/mm3 04/23/22 04:19 Monocytes # (Manual) 0.8 K/mm3 (0.0-0.8) 04/23/22 04:19 Eosinophils # (Manual) 0.8 K/mm3 (0.0-0.4) H 04/23/22 04:19 Basophils # (Manual) 0.0 K/mm3 (0.0-0.1) 04/23/22 04:19 Metamyelocytes # 0.0 K/mm3 04/23/22 04:19 Myelocytes # 0.0 K/mm3 04/23/22 04:19 Promyelocytes # 0.0 K/mm3 04/23/22 04:19 Blast Cells # 0.0 K/mm3 04/23/22 04:19 WBC Morphology Not Reportable 04/23/22 04:19 Hypersegmented Neuts Not Reportable 04/23/22 04:19 Hyposegmented Neuts Not Reportable 04/23/22 04:19 Hypogranular Neuts Not Reportable 04/23/22 04:19 Smudge Cells Not Reportable 04/23/22 04:19 Toxic Granulation Not Reportable 04/23/22 04:19 Toxic Vacuolation Not Reportable 04/23/22 04:19 Dohle Bodies Not Reportable 04/23/22 04:19 Pelger-Huet Anomaly Not Reportable 04/23/22 04:19 Regla Rods Not Reportable 04/23/22 04:19 Platelet Estimate Consistent w auto 04/23/22 04:19 Clumped Platelets Not Reportable 04/23/22 04:19 Plt Clumps, EDTA Not Reportable 04/23/22 04:19 Large Platelets Not Reportable 04/23/22 04:19 Giant Platelets Not Reportable 04/23/22 04:19 Platelet Satelliting Not Reportable 04/23/22 04:19 Plt Morphology Comment Not Reportable 04/23/22 04:19 RBC Morphology Not Reportable 04/23/22 04:19 Dimorphic RBCs Not Reportable 04/23/22 04:19 Polychromasia Not Reportable 04/23/22 04:19 Hypochromasia Not Reportable 04/23/22 04:19 Poikilocytosis Not Reportable 04/23/22 04:19 Anisocytosis Not Reportable 04/23/22 04:19 Microcytosis Not Reportable 04/23/22 04:19 Macrocytosis Not Reportable 04/23/22 04:19 Spherocytes Not Reportable 04/23/22 04:19 Pappenheimer Bodies Not Reportable 04/23/22 04:19 Sickle Cells Not Reportable 04/23/22 04:19 Target Cells Not Reportable 04/23/22 04:19 Tear Drop Cells Not Reportable 04/23/22 04:19 Ovalocytes Not Reportable 04/23/22 04:19 Helmet Cells Not Reportable 04/23/22 04:19 [place] Bodies Not Reportable 04/23/22 04:19 [place] Rings Not Reportable 04/23/22 04:19 [place] Cells Not Reportable 04/23/22 04:19 Bite Cells Not Reportable 04/23/22 04:19 Crenated Cell Not Reportable 04/23/22 04:19 Elliptocytes Not Reportable 04/23/22 04:19 Acanthocytes (Spur) Not Reportable 04/23/22 04:19 Rouleaux Not Reportable 04/23/22 04:19 Hemoglobin C Crystals Not Reportable 04/23/22 04:19 Schistocytes Not Reportable 04/23/22 04:19 Malaria parasites Not Reportable 04/23/22 04:19 [place] Bodies Not Reportable 04/23/22 04:19 Hem Pathologist Commnt No 04/23/22 04:19 PT 15.6 Sec. (12.2-14.9) H 04/18/22 Unknown INR 1.08 (0.87-1.13) 04/18/22 Unknown APTT 28.6 Sec. (24.2-36.6) 04/18/22 Unknown Activated Coag Time 179 (74-137) H 04/21/22 12:14 D-Dimer 1411.79 ng/mlDDU (0-234) H 05/05/22 03:54 Heparin Anti-Xa Level 0.16 U.I./ml (0.3-0.7) L 04/21/22 04:00 ABG pH 7.442 pH Units (7.350-7.450) 05/02/22 04:45 ABG pCO2 37.8 mm Hg 05/02/22 04:45 ABG pO2 83.1 mm Hg (80.0-90.0) 05/02/22 04:45 ABG HCO3 25.2 mmol/L (20.0-26.0) 05/02/22 04:45 ABG O2 Saturation 97.0 % (95.0-99.0) 05/02/22 04:45 ABG O2 Content 12.6 (0.0-44) 05/02/22 04:45 ABG Base Excess 1.1 mmol/L (-2.0-3.0) 05/02/22 04:45 ABG Hemoglobin 9.3 gm/dl (14.0-18.0) L 05/02/22 04:45 ABG Carboxyhemoglobin 1.4 % (0.0-5.0) 05/02/22 04:45 ABG Methemoglobin 0.4 % (0.0-1.5) 05/02/22 04:45 Oxyhemoglobin 95.2 % (95.0-99.0) 05/02/22 04:45 FiO2 30 % 05/02/22 04:45 Sodium 143 mmol/L (137-145) 05/05/22 03:54 Potassium 4.5 mmol/L (3.6-5.0) 05/05/22 03:54 Chloride 107.5 mmol/L (98-107) H 05/05/22 03:54 Carbon Dioxide 25 mmol/L (22-30) 05/05/22 03:54 Anion Gap 15 mmol/L 05/05/22 03:54 BUN 26 mg/dL (9-20) H 05/05/22 03:54 Creatinine 1.0 mg/dL (0.8-1.3) 05/05/22 03:54 Estimated GFR > 60 ml/min 05/05/22 03:54 BUN/Creatinine Ratio 26 % 05/05/22 03:54 Glucose 134 mg/dL (75-100) H 05/05/22 03:54 POC Glucose 184 mg/dL (70-105) H 05/04/22 21:30 Lactic Acid 1.90 mmol/L (0.7-2.0) 04/21/22 04:20 Calcium 8.2 mg/dL (8.4-10.2) L 05/05/22 03:54 Phosphorus 3.20 mg/dL (2.5-4.5) 05/03/22 04:46 Magnesium 2.10 mg/dL (1.7-2.3) 05/03/22 04:46 Ferritin 416.7 ng/mL (30.0-300.0) H 05/05/22 03:54 Total Bilirubin 0.50 mg/dL (0.1-1.2) 05/05/22 03:54 Direct Bilirubin 0.3 mg/dL (0-0.2) H 04/30/22 04:25 Indirect Bilirubin 0.1 mg/dL 04/30/22 04:25 AST 51 units/L (5-40) H 05/05/22 03:54 ALT 107 units/L (7-56) H 05/05/22 03:54 Alkaline Phosphatase 170 units/L (35-129) H 05/05/22 03:54 Lactate Dehydrogenase 340 units/L (91-180) H 05/05/22 03:54 Total Creatine Kinase 61 units/L (55-170) 04/29/22 04:20 CK-MB (CK-2) 28.5 ng/mL (0.0-4.0) H 04/19/22 07:11 CK-MB (CK-2) Rel Index 0.8 (0-4) 04/19/22 07:11 Troponin T 2.980 ng/mL (0.00-0.029) H* 04/19/22 07:11 C-Reactive Protein 2.70 mg/dL (0.00-1.30) H 05/05/22 03:54 Total Protein 6.8 g/dL (6.3-8.2) 05/05/22 03:54 Albumin 2.9 g/dL (3.9-5) L 05/05/22 03:54 Albumin/Globulin Ratio 0.7 % 05/05/22 03:54 Triglycerides 214 mg/dL (2-149) H 05/01/22 04:00 Cholesterol 106 mg/dL (50-199) 04/17/22 19:56 LDL Cholesterol Direct 57 mg/dL (50-130) 04/17/22 19:56 HDL Cholesterol 40 mg/dL (40-59) 04/17/22 19:56 Cholesterol/HDL Ratio 2.65 % 04/17/22 19:56 Procalcitonin 2.90 ng/mL (<0.15) 04/28/22 Unknown Urine Color Straw (Yellow) 04/28/22 08:35 Urine Turbidity Clear (Clear) 04/28/22 08:35 Urine pH 6.0 (5.0-7.0) 04/28/22 08:35 Ur Specific [place] 1.000 (1.003-1.030) L 04/28/22 08:35 Urine Protein 300 mg/dl mg/dL (Negative) 04/28/22 08:35 Urine Glucose (UA) Negative mg/dL (Negative) 04/28/22 08:35 Urine Ketones Negative mg/dL (Negative) 04/28/22 08:35 Urine Blood 3+ (Negative) 04/28/22 08:35 Urine Nitrite Negative (Negative) 04/28/22 08:35 Ur Reducing Substances Not Reportable 04/28/22 08:35 Urine Bilirubin Negative (Negative) 04/28/22 08:35 Urine Ictotest Not Reportable 04/28/22 08:35 Urine Urobilinogen < 2.0 mg/dL (<2.0) 04/28/22 08:35 Ur Leukocyte Esterase Small (Negative) 04/28/22 08:35 Urine WBC (Auto) 21.0 /HPF (0.0-6.0) H 04/28/22 08:35 Urine RBC (Auto) 9.0 /HPF (0.0-6.0) 04/28/22 08:35 Urine Bacteria (Auto) 2+ /HPF (Negative) 04/19/22 02:08 Urine WBC Clumps 3+ /HPF 04/19/22 02:08 RBC Casts 34 /LPF 04/19/22 02:08 Urine Mucus Few /HPF 04/28/22 08:35 Urine Yeast (Budding) 3+ /HPF 04/19/22 02:08 Urine Eosinophils None seen (None Seen) 04/19/22 02:08 Urine Creatinine 90.9 mg/dL (0.1-20.0) H 04/19/22 02:08 Urine Sodium 54 mmol/L 04/19/22 02:08 Digoxin 0.7 ng/mL (0.9-2.0) L 05/05/22 03:54 Coronavirus (PCR) Positive (Negative) A 04/29/22 09:38 Influenza A (RT-PCR) Negative (Negative) 04/29/22 11:44 Influenza B (RT-PCR) Negative (Negative) 04/29/22 11:44 Blood Type A POSITIVE 04/21/22 04:37 Antibody Screen Negative 04/21/22 04:37 Penn/IV: Voiding Method Urinal Active Medications - Current Medications Current Medications: Generic Name Dose Route Start Last Admin Trade Name Freq PRN Reason Stop Dose Admin Acetaminophen 650 mg 04/17/22 19:48 04/28/22 21:38 Acetaminophen 325 Mg Tab PO 650 mg Q6H PRN Administration Pain MILD(1-3)/Fever >100.5/CHE Albuterol 2 puff 05/05/22 09:00 Albuterol 8.5 Gm Mdi Inhalation IH Q4HRT PRN SHORTNESS OF BREATH Ascorbic Acid 500 mg 05/04/22 22:00 05/05/22 09:21 Ascorbic Acid 500 Mg Tab PO 05/10/22 10:01 500 mg BID FLACO Administration Aspirin 81 mg 05/05/22 10:00 05/05/22 09:19 Aspirin 81 Mg Tab Chew PO 81 mg QDAY FLACO Administration Atorvastatin Calcium 20 mg 05/04/22 22:00 05/04/22 21:38 Atorvastatin 20 Mg Tab PO 20 mg QHS FLACO Administration Dexamethasone 8 mg 04/30/22 10:00 05/05/22 09:19 Dexamethasone 4 Mg/Ml Vial IV 05/09/22 10:01 8 mg DAILY FLACO Administration Dextrose 0 ml 04/17/22 23:46 Dextrose 50% In Water (25gm) 50 Ml Syringe IV Q30MIN PRN Hypoglycemia Protocol Digoxin 0.125 mg 05/04/22 17:00 05/04/22 17:11 Digoxin 0.125 Mg Tab PO 0.125 mg DAILY@1700 [facility] Administration Docusate Sodium 100 mg 05/04/22 22:00 05/05/22 09:19 Docusate Sodium 100 Mg/10 Ml Oral Liqd PO Not Given BID [facility] Doxazosin Mesylate 1 mg 05/04/22 22:00 05/04/22 21:39 Doxazosin 1 Mg Tab PO 1 mg QHS [facility] Administration Enoxaparin Sodium 120 mg 05/02/22 10:00 05/05/22 09:20 Enoxaparin 120 Mg/0.8 Ml Inj SUB-Q 120 mg Q12HR [facility] Administration Protocol Furosemide 20 mg 05/04/22 18:00 05/05/22 05:14 Furosemide 20 Mg Tab PO 20 mg 0600,1800 [facility] Administration Hydrophilic Ointment 1 applic 04/18/22 06:02 04/26/22 20:29 Lip Therapy Vaseline TP 1 applic Q2HR PRN Administration Dry Lips Cefepime HCl 2 gm in 100 mls @ 200 mls/hr 04/28/22 08:00 05/05/22 09:17 Cefepime/Ns 2 Gm/100 Ml IV 05/06/22 00:29 200 mls/hr Q8H [facility] Administration Protocol Insulin Glargine 35 units 05/03/22 22:00 05/04/22 21:40 Insulin Glargine 100 Units/Ml SUB-Q 35 units QHS [facility] Administration Insulin Human Lispro 0 unit 05/04/22 11:30 05/05/22 09:18 Insulin Lispro 100 Unit/Ml SUB-Q Not Given ACHS [facility] Protocol Metoprolol Tartrate 25 mg 05/05/22 10:00 05/05/22 09:20 Metoprolol Tartrate 25 Mg Tab PO 25 mg BID [facility] Administration Multi-Ingred Cream/Lotion/Oil/Oint 1 applic 04/18/22 06:02 Mineral Oil/Petrolatum, White Ophth Oint 3.5 Gm OU Q4HR PRN Dry Eye(s) Oxycodone/Acetaminophen 1 tab 05/04/22 10:00 Oxycodone /Acetaminophen 5-325mg Tab PO Q6H PRN Pain, Moderate (4-6) Senna/Docusate Sodium 2 tab 05/04/22 10:00 05/05/22 09:21 Sennosides/Docusate Sodium 8.6/50 Mg Tab PO Not Given BID FLACO Sodium Chloride 10 ml 04/17/22 22:00 05/05/22 09:18 Sodium Chloride 0.9% 10 Ml Flush Syringe IV 10 ml BID FLACO Administration Sodium Chloride 10 ml 04/17/22 19:48 Sodium Chloride 0.9% 10 Ml Flush Syringe IV PRN PRN LINE FLUSH Zinc Sulfate 220 mg 04/30/22 22:00 05/05/22 09:21 Zinc Sulfate 220 Mg Cap PO 05/10/22 10:01 220 mg BID FLACO Administration Nutrition/Malnutrition Assess - Dietary Evaluation Nutrition/Malnutrition Findings: Nutrition Notes Start: 04/18/22 08:52 Freq: Status: Active Protocol: Document 04/29/22 11:29 ROMELIA (Rec: 04/29/22 11:55 ROMELIA [id number]) Nutrition Notes Initial or Follow up Reassessment Current Diagnosis Acute Kidney Injury,Diabetes, Sepsis,Hypertension, Respiratory Failure Other Pertinent Diagnosis s/p PEA w/ROSC, HFrEF, Pneumonia, Transaminitis, Rabdomyolisis, .. Current Diet TF-Nepro w/CARBSTEADY @ 35 ml/ hr (from D 04/21). Labs/Tests 04/29: BUN 30, Crea 1.6, Glu 236, Ca 8.1. Pertinent Medications 04/29: Humalog 4U, Propofol @ 3.456 ml/hr (91 Kcal), mothers nutritionally unremarkable. Height 5 ft 9 in Weight 115.2 kg [place] Body Weight (kg) 72.72 BMI 37.5 Weight change and time frame No body weight change reported in 11 days. Weight Status Obese Subjective/Other Information RD consult for routine F/U on TF tolerance/continuation assessment. TF continues as prescribed, no further information available at the time. Pt continues on Mechanical Ventilation, O2 saturation @ 100%, according to Physical Assessment History notes. Pt remains incontinent, according to Physical Assessment History notes. Pt presents blisters on the groin and on hand, according to Physical Assessment History notes. Percent of energy/protein needs met: Prescribed TF-Nepro w/ CARBSTEADY @ 35 ml/hr provides for energy/protein needs (1, 500 Kcal/68 g) during LOS, 77% Kcal; 90% AA. Including 91 Kcal from Propofol: 81% Kcal; 90% AA. Burn Absent Trauma Absent GI Symptoms None Food Allergy No Skin Integrity/Comment Blisters on the groin and on hand. Current % PO Other Minimum of two criteria No Fluid Accumulation N/A Reduced Time Signal Wirer Strength N/A (non-severe) Protein-Calorie Malnutrition N\A #1 Nutrition Diagnosis Inadequate oral intake Diagnosis Progress(for reassessment Continues documentation) Is patient on ventilator? Yes Is Patient Ambulatory and/or Out of Bed No REE-([facility]-confined to bed) 2323.608 Kcal/Kg value to use for calculation 17 Approximate Energy Requirements Using 1958 kcal/Kg Calculation Used for Recommendations Kcal/kg Additional Notes Protein: 0.8-1.2 g/Kg AdjBW; 75-113 g/day. Fluids: 1 ml/Kcal, or as per MD. Nutrition Intervention Nutrition Support: Continue TF-Nepro w/CARBSTEADY @ 35 ml/hr. Flush: 220 ml water Q 4 hr, or as per MD. Kcal 1,500 Protein (gm) 68 Carbohydrates (gm) 134 Fat (gm) 80 Fluid (mL) 606 Fiber (gm) 11 % RDI: 77% Kcal; 90% AA. Goal #1 Provide at least 75% of energy /protein needs through Enteral Feeding during LOS. Follow-Up By: 05/06/22 Additional Comments Continue monitoring TF tolerance, ventilation status, vasopressors, and BM.
--- NOTE | 2022-05-05 12:00 | Progress Note ---
Assessment and Plan Acute hypoxemic respiratory failure Altered mental status Aspiration pneumonia Shock (Cardiogenic +/- Septic) Severe Metabolic Acidosis Morbid Obesity Diabetes type II Hypotension Obesity hypoventilation syndrome - spoke with his and updated her (including discussing elective intubation) - [facility] does nopt have an ICU bed; he is BIPAP dependent now - await Anesthesia evaluation and we will collectively decide on the benefits of elective intubation especially as a difficult airway last time he needed emergent intubation - keep NPO for now - prn Racemic epinephrine - good diuresis with negative fluid balance and improved BUN/will continue diuresis but 20mg IV bid X 24 more hours - will benefit from LTAC evaluation - AICD once ok with cardiology - continue to watch closely in ICU for now - continue digoxin for rhythm control - continue strict I's & O's and target negative fluid balance - continue care as below otherwise; - prn vasopressors for target MAP > 65mmHg - continue to wean supplemental oxygen for target O2 sat's > 90% acutely - aspiration precautions - continue bronchodilators with pulmonary hygiene per RT - avoid nephrotoxins, renally dose all medications - continue accuchecks with glycemic control per SSI (While critically ill target blood glucose of 140-180 mg/dL; avoid hypoglycemia) - continue to avoid benzodiazepine's, reduce the possibility of delirium - AB's per ID rec's (s/p 5 days empiric CAP therapy with Levaquin) - prn analgesia per pain score - Maintenance of sleep-wake cycle, avoid delirium - continue enteral nutritional support at goal rate as tolerated - G.I. & VTE prophylaxis - PT/OT/ROM exercises - continue mobility protocols for pressure ulcer prophylaxis - Monitor hemodynamics closely - continue other care per attending / other consultants - discharge planning ongoing concurrently COVID SPECIFIC INTERVENTIONS - Remdesivir as per ID/Pulmonary developed protocols (received) - continue systemic steroids for severe COVID-19 infection (Dexamethasone X >/= 10 days) - follow repeat COVID tests results - zinc and vitamin C supplementation - Monitor inflammatory markers per facility protocol - ferritin, Ddimer, CRP - therapeutic anticoagulation per system Protocol based on d-dimer and clinical considerations - Continue contact and airborne isolation .... Re-evaluate in am & prn CONDITION: CRITICAL PROGNOSIS: GUARDED CODE STATUS: FULL CODE The high probability of a clinically significant, sudden or life-threatening deterioration of the [respiratory, cardiovascular, renal & neurologic] system(s) required my full and direct attention, intervention and personal management. The aggregate critical care time was [44] minutes without overlap. Time includes spent on; [x] Data Review and interpretation [x] Patient assessment and monitoring of vital signs [x] Documentation [x] Medication orders and management Subjective Date of service: 05/05/22 Principal diagnosis: AHRF; AMS; Pneumonia; Shock; DM II; Severe Metabolic Ac idosis Interval history: Patient is seen today for: Acute hypoxemic respiratory failure; AMS; Aspiration pneumonia; Shock (Cardiogenic +/- Septic); DM II; Severe Metabolic Acidosis Seen and examined at bedside; 24hour events reviewed; nursing and respiratory care staff consulted; no adverse overnight events reported to me; resting in bed; developed another episode of severe respiratory distress with mostly stridorous sounds and increased work of breathing that ultimately responded to racemic epinephrine and BIPAP therapy; remains on BIPAP at my re-evaluation with mildly increased respiratory effort and some abdominal breathing without overt accessory muscle use; he denies SOB and appears to lack understanding / cognition of his work of breathing; he had been NPO prior to episode of stridor this am Objective Vital Signs - 12hr 05/05/22 05/05/22 05/05/22 00:00 00:01 00:03 Temperature Pulse Rate 56 L 55 L 60 Pulse Rate [ 65 From Monitor] Respiratory 22 22 24 Rate Blood Pressure 120/64 120/64 O2 Sat by Pulse 100 100 100 Oximetry 05/05/22 05/05/22 05/05/22 00:43 01:01 02:01 Temperature Pulse Rate 62 53 L 64 Pulse Rate [ From Monitor] Respiratory 24 23 21 Rate Blood Pressure 120/64 120/59 136/83 O2 Sat by Pulse 100 100 99 Oximetry 05/05/22 05/05/22 05/05/22 03:00 04:00 04:27 Temperature Pulse Rate 63 71 Pulse Rate [ 69 From Monitor] Respiratory 25 H 17 Rate Blood Pressure 141/80 117/89 O2 Sat by Pulse 97 99 98 Oximetry 05/05/22 05/05/22 05/05/22 04:38 05:00 06:00 Temperature 98.4 F Pulse Rate 78 70 Pulse Rate [ From Monitor] Respiratory 14 27 H Rate Blood Pressure 130/94 140/86 O2 Sat by Pulse 98 99 Oximetry 05/05/22 05/05/22 05/05/22 07:00 07:12 08:00 Temperature 97.7 F Pulse Rate 81 73 Pulse Rate [ 87 From Monitor] Respiratory 31 H 26 H Rate Blood Pressure 140/86 146/71 O2 Sat by Pulse 100 96 Oximetry 05/05/22 05/05/22 05/05/22 09:00 09:20 09:45 Temperature Pulse Rate 87 77 Pulse Rate [ From Monitor] Respiratory 19 Rate Blood Pressure 169/98 170/89 O2 Sat by Pulse 97 99 Oximetry 05/05/22 05/05/22 05/05/22 10:00 11:00 11:32 Temperature 98.2 F Pulse Rate 87 69 Pulse Rate [ From Monitor] Respiratory 28 H 28 H Rate Blood Pressure 202/174 162/89 O2 Sat by Pulse 98 97 Oximetry Constitutional: alert, appears uncomfortable, other (elderly obese male with mildly increased respiratory effort at rest on MVS) Eyes: non-icteric ENT: oropharynx moist, other (BIPAP FFM) Neck: supple, no lymphadenopathy, no JVD, other (large circumference) Effort: mildly labored Ascultation: Bilateral: diminished breath sounds, rales (scant in posterior bases) Percussion: Bilateral: not dull Cardiovascular: irregular rhythm, other (No R/M) Gastrointestinal: normoactive bowel sounds, soft, non-tender, non-distended (protuberant), other (condom catheter) Integumentary: rash (erythematous rash over anterior chest wall and upper e xtremities-improving) Extremities: no cyanosis, no edema, pulses normal, no ischemia or petechiae, edema (bilateral upper extemities) Neurologic: normal mental status, non-focal exam (grossly), pupils equal and round, CN II-XII normal, motor strength normal and Psychiatric: anxious (somewhat) CBC and BMP: 05/05/22 03:54 05/05/22 03:54 ABG, PT/INR, D-dimer: ABG ABG pH 7.442 pH Units (7.350-7.450) 05/02/22 04:45 ABG pCO2 37.8 mm Hg 05/02/22 04:45 ABG pO2 83.1 mm Hg (80.0-90.0) 05/02/22 04:45 ABG O2 Saturation 97.0 % (95.0-99.0) 05/02/22 04:45 PT/INR, D-dimer PT 15.6 Sec. (12.2-14.9) H 04/18/22 Unknown INR 1.08 (0.87-1.13) 04/18/22 Unknown D-Dimer 1411.79 ng/mlDDU (0-234) H 05/05/22 03:54 Abnormal lab findings: Abnormal Labs 04/17/22 04/17/22 04/17/22 19:18 19:55 19:56 WBC RBC Hgb Hct MCHC RDW Plt Count Lymph % (Auto) [place] % (Auto) Eos % (Auto) Lymph # (Auto) [place] # (Auto) Eos # (Auto) Seg Neutrophils % Seg Neuts % (Manual) Lymphocytes % (Manual) Eosinophils % (Manual) Seg Neutrophils # Seg Neutrophils # Man Lymphocytes # (Manual) Eosinophils # (Manual) PT Activated Coag Time D-Dimer Heparin Anti-Xa Level ABG pH 7.120 L* ABG pO2 45.3 L ABG HCO3 18.5 L ABG O2 Saturation 68.3 L ABG Base Excess -11.5 L ABG Hemoglobin Oxyhemoglobin 66.8 L Sodium Potassium Chloride 94.2 L Carbon Dioxide 17 L BUN Creatinine 1.6 H Glucose 315 H POC Glucose 277 H Lactic Acid Calcium Phosphorus Magnesium Ferritin Direct Bilirubin AST 529 H ALT 318 H Alkaline Phosphatase 137 H Lactate Dehydrogenase Total Creatine Kinase 398 H CK-MB (CK-2) 17.9 H CK-MB (CK-2) Rel Index 4.4 H Troponin T 0.205 H* C-Reactive Protein Total Protein Albumin Triglycerides Ur Specific [place] Urine Blood Urine WBC (Auto) Urine Creatinine Digoxin Coronavirus (PCR) 04/17/22 04/17/22 04/17/22 19:58 19:58 21:42 WBC 11.9 H RBC 5.17 H Hgb 15.5 H Hct 48.0 H MCHC RDW Plt Count Lymph % (Auto) [place] % (Auto) Eos % (Auto) Lymph # (Auto) [place] # (Auto) Eos # (Auto) Seg Neutrophils % 71.7 H Seg Neuts % (Manual) Lymphocytes % (Manual) Eosinophils % (Manual) Seg Neutrophils # 8.5 H Seg Neutrophils # Man Lymphocytes # (Manual) Eosinophils # (Manual) PT Activated Coag Time D-Dimer Heparin Anti-Xa Level ABG pH ABG pO2 ABG HCO3 ABG O2 Saturation ABG Base Excess ABG Hemoglobin Oxyhemoglobin Sodium Potassium Chloride 95.0 L Carbon Dioxide 19 L BUN Creatinine 1.5 H Glucose 306 H POC Glucose Lactic Acid Calcium Phosphorus Magnesium Ferritin Direct Bilirubin AST ALT Alkaline Phosphatase Lactate Dehydrogenase Total Creatine Kinase 412 H CK-MB (CK-2) 19.2 H CK-MB (CK-2) Rel Index 4.6 H Troponin T 0.285 H* D C-Reactive Protein Total Protein Albumin Triglycerides Ur Specific [place] Urine Blood Urine WBC (Auto) Urine Creatinine Digoxin Coronavirus (PCR) 04/17/22 04/18/22 04/18/22 21:42 00:40 01:07 WBC RBC Hgb Hct MCHC RDW Plt Count Lymph % (Auto) [place] % (Auto) Eos % (Auto) Lymph # (Auto) [place] # (Auto) Eos # (Auto) Seg Neutrophils % Seg Neuts % (Manual) Lymphocytes % (Manual) Eosinophils % (Manual) Seg Neutrophils # Seg Neutrophils # Man Lymphocytes # (Manual) Eosinophils # (Manual) PT Activated Coag Time D-Dimer Heparin Anti-Xa Level ABG pH ABG pO2 ABG HCO3 ABG O2 Saturation ABG Base Excess ABG Hemoglobin Oxyhemoglobin Sodium Potassium Chloride Carbon Dioxide BUN Creatinine Glucose POC Glucose 320 H Lactic Acid 7.90 H* 7.90 H* Calcium Phosphorus Magnesium Ferritin Direct Bilirubin AST ALT Alkaline Phosphatase Lactate Dehydrogenase Total Creatine Kinase CK-MB (CK-2) CK-MB (CK-2) Rel Index Troponin T C-Reactive Protein Total Protein Albumin Triglycerides Ur Specific [place] Urine Blood Urine WBC (Auto) Urine Creatinine Digoxin Coronavirus (PCR) 04/18/22 04/18/22 04/18/22 01:07 04:00 06:04 WBC RBC Hgb Hct MCHC RDW Plt Count Lymph % (Auto) [place] % (Auto) Eos % (Auto) Lymph # (Auto) [place] # (Auto) Eos # (Auto) Seg Neutrophils % Seg Neuts % (Manual) Lymphocytes % (Manual) Eosinophils % (Manual) Seg Neutrophils # Seg Neutrophils # Man Lymphocytes # (Manual) Eosinophils # (Manual) PT Activated Coag Time D-Dimer Heparin Anti-Xa Level < 0.10 L ABG pH ABG pO2 ABG HCO3 ABG O2 Saturation ABG Base Excess ABG Hemoglobin Oxyhemoglobin Sodium Potassium Chloride Carbon Dioxide BUN Creatinine Glucose POC Glucose 305 H Lactic Acid Calcium Phosphorus Magnesium Ferritin Direct Bilirubin AST ALT Alkaline Phosphatase Lactate Dehydrogenase Total Creatine Kinase 488 H CK-MB (CK-2) 25.3 H CK-MB (CK-2) Rel Index 5.1 H Troponin T 0.665 H* D C-Reactive Protein Total Protein Albumin Triglycerides Ur Specific [place] Urine Blood Urine WBC (Auto) Urine Creatinine Digoxin Coronavirus (PCR) 04/18/22 04/18/22 04/18/22 06:20 11:10 12:48 WBC RBC Hgb Hct MCHC RDW Plt Count Lymph % (Auto) [place] % (Auto) Eos % (Auto) Lymph # (Auto) [place] # (Auto) Eos # (Auto) Seg Neutrophils % Seg Neuts % (Manual) Lymphocytes % (Manual) Eosinophils % (Manual) Seg Neutrophils # Seg Neutrophils # Man Lymphocytes # (Manual) Eosinophils # (Manual) PT Activated Coag Time D-Dimer Heparin Anti-Xa Level < 0.10 L ABG pH 7.119 L* 7.304 L ABG pO2 56.1 L 103.5 H ABG HCO3 18.4 L 14.4 L ABG O2 Saturation 80.7 L ABG Base Excess -11.4 L -10.6 L ABG Hemoglobin 13.5 L Oxyhemoglobin 79.2 L Sodium Potassium Chloride Carbon Dioxide BUN Creatinine Glucose POC Glucose Lactic Acid Calcium Phosphorus Magnesium Ferritin Direct Bilirubin AST ALT Alkaline Phosphatase Lactate Dehydrogenase Total Creatine Kinase CK-MB (CK-2) CK-MB (CK-2) Rel Index Troponin T C-Reactive Protein Total Protein Albumin Triglycerides Ur Specific [place] Urine Blood Urine WBC (Auto) Urine Creatinine Digoxin Coronavirus (PCR) 04/18/22 04/18/22 04/18/22 13:13 16:00 16:00 WBC RBC Hgb Hct MCHC RDW Plt Count Lymph % (Auto) [place] % (Auto) Eos % (Auto) Lymph # (Auto) [place] # (Auto) Eos # (Auto) Seg Neutrophils % Seg Neuts % (Manual) Lymphocytes % (Manual) Eosinophils % (Manual) Seg Neutrophils # Seg Neutrophils # Man Lymphocytes # (Manual) Eosinophils # (Manual) PT Activated Coag Time D-Dimer Heparin Anti-Xa Level ABG pH ABG pO2 ABG HCO3 ABG O2 Saturation ABG Base Excess ABG Hemoglobin Oxyhemoglobin Sodium Potassium Chloride Carbon Dioxide BUN Creatinine Glucose POC Glucose 334 H Lactic Acid 7.00 H* Calcium Phosphorus 5.70 H Magnesium 1.30 L Ferritin Direct Bilirubin AST ALT Alkaline Phosphatase Lactate Dehydrogenase Total Creatine Kinase 969 H CK-MB (CK-2) 55.9 H CK-MB (CK-2) Rel Index 5.7 H Troponin T 1.580 H* D C-Reactive Protein Total Protein Albumin Triglycerides Ur Specific [place] Urine Blood Urine WBC (Auto) Urine Creatinine Digoxin Coronavirus (PCR) 04/18/22 04/18/22 04/18/22 16:00 18:00 18:01 WBC RBC Hgb Hct MCHC RDW Plt Count Lymph % (Auto) [place] % (Auto) Eos % (Auto) Lymph # (Auto) [place] # (Auto) Eos # (Auto) Seg Neutrophils % Seg Neuts % (Manual) Lymphocytes % (Manual) Eosinophils % (Manual) Seg Neutrophils # Seg Neutrophils # Man Lymphocytes # (Manual) Eosinophils # (Manual) PT Activated Coag Time D-Dimer Heparin Anti-Xa Level < 0.10 L ABG pH ABG pO2 ABG HCO3 ABG O2 Saturation ABG Base Excess ABG Hemoglobin Oxyhemoglobin Sodium 136 L Potassium 6.3 H* D Chloride 97.6 L Carbon Dioxide 18 L BUN 34 H Creatinine 3.5 H Glucose 409 H POC Glucose 397 H Lactic Acid Calcium 6.8 L Phosphorus Magnesium Ferritin Direct Bilirubin AST ALT Alkaline Phosphatase Lactate Dehydrogenase Total Creatine Kinase CK-MB (CK-2) CK-MB (CK-2) Rel Index Troponin T C-Reactive Protein Total Protein Albumin Triglycerides Ur Specific [place] Urine Blood Urine WBC (Auto) Urine Creatinine Digoxin Coronavirus (PCR) 04/18/22 04/18/22 04/18/22 19:13 20:58 21:22 WBC RBC Hgb Hct MCHC RDW Plt Count Lymph % (Auto) [place] % (Auto) Eos % (Auto) Lymph # (Auto) [place] # (Auto) Eos # (Auto) Seg Neutrophils % Seg Neuts % (Manual) Lymphocytes % (Manual) Eosinophils % (Manual) Seg Neutrophils # Seg Neutrophils # Man Lymphocytes # (Manual) Eosinophils # (Manual) PT Activated Coag Time D-Dimer Heparin Anti-Xa Level ABG pH 7.502 H ABG pO2 144.5 H ABG HCO3 ABG O2 Saturation ABG Base Excess ABG Hemoglobin 12.5 L Oxyhemoglobin Sodium Potassium Chloride Carbon Dioxide BUN Creatinine Glucose POC Glucose 321 H 307 H Lactic Acid Calcium Phosphorus Magnesium Ferritin Direct Bilirubin AST ALT Alkaline Phosphatase Lactate Dehydrogenase Total Creatine Kinase CK-MB (CK-2) CK-MB (CK-2) Rel Index Troponin T C-Reactive Protein Total Protein Albumin Triglycerides Ur Specific [place] Urine Blood Urine WBC (Auto) Urine Creatinine Digoxin Coronavirus (PCR) 04/18/22 04/18/22 04/18/22 21:30 21:30 Unknown WBC RBC Hgb Hct MCHC RDW Plt Count Lymph % (Auto) [place] % (Auto) Eos % (Auto) Lymph # (Auto) [place] # (Auto) Eos # (Auto) Seg Neutrophils % Seg Neuts % (Manual) 81.0 H Lymphocytes % (Manual) 12.0 L Eosinophils % (Manual) Seg Neutrophils # 9.8 H Seg Neutrophils # Man 8.7 H Lymphocytes # (Manual) Eosinophils # (Manual) PT Activated Coag Time D-Dimer Heparin Anti-Xa Level ABG pH ABG pO2 ABG HCO3 ABG O2 Saturation ABG Base Excess ABG Hemoglobin Oxyhemoglobin Sodium Potassium Chloride 96.6 L Carbon Dioxide BUN 37 H Creatinine 3.6 H Glucose 312 H POC Glucose Lactic Acid 5.50 H* Calcium 7.3 L Phosphorus Magnesium Ferritin Direct Bilirubin AST ALT Alkaline Phosphatase Lactate Dehydrogenase Total Creatine Kinase CK-MB (CK-2) CK-MB (CK-2) Rel Index Troponin T C-Reactive Protein Total Protein Albumin Triglycerides Ur Specific [place] Urine Blood Urine WBC (Auto) Urine Creatinine Digoxin Coronavirus (PCR) 04/18/22 04/18/22 04/19/22 Unknown Unknown 00:35 WBC RBC Hgb Hct MCHC RDW Plt Count Lymph % (Auto) [place] % (Auto) Eos % (Auto) Lymph # (Auto) [place] # (Auto) Eos # (Auto) Seg Neutrophils % Seg Neuts % (Manual) Lymphocytes % (Manual) Eosinophils % (Manual) Seg Neutrophils # Seg Neutrophils # Man Lymphocytes # (Manual) Eosinophils # (Manual) PT 15.6 H Activated Coag Time D-Dimer Heparin Anti-Xa Level ABG pH ABG pO2 ABG HCO3 ABG O2 Saturation ABG Base Excess ABG Hemoglobin Oxyhemoglobin Sodium Potassium Chloride Carbon Dioxide 18 L BUN 26 H Creatinine 2.5 H D Glucose 330 H POC Glucose Lactic Acid Calcium 7.9 L Phosphorus Magnesium Ferritin Direct Bilirubin AST 463 H ALT 249 H Alkaline Phosphatase Lactate Dehydrogenase Total Creatine Kinase CK-MB (CK-2) CK-MB (CK-2) Rel Index Troponin T 2.670 H* D C-Reactive Protein Total Protein Albumin 3.3 L Triglycerides Ur Specific [place] Urine Blood Urine WBC (Auto) Urine Creatinine Digoxin Coronavirus (PCR) 04/19/22 04/19/22 04/19/22 00:39 02:08 02:08 WBC RBC Hgb Hct MCHC RDW Plt Count Lymph % (Auto) [place] % (Auto) Eos % (Auto) Lymph # (Auto) [place] # (Auto) Eos # (Auto) Seg Neutrophils % Seg Neuts % (Manual) Lymphocytes % (Manual) Eosinophils % (Manual) Seg Neutrophils # Seg Neutrophils # Man Lymphocytes # (Manual) Eosinophils # (Manual) PT Activated Coag Time D-Dimer Heparin Anti-Xa Level ABG pH ABG pO2 ABG HCO3 ABG O2 Saturation ABG Base Excess ABG Hemoglobin Oxyhemoglobin Sodium Potassium Chloride Carbon Dioxide BUN Creatinine Glucose POC Glucose 263 H Lactic Acid Calcium Phosphorus Magnesium Ferritin Direct Bilirubin AST ALT Alkaline Phosphatase Lactate Dehydrogenase Total Creatine Kinase CK-MB (CK-2) CK-MB (CK-2) Rel Index Troponin T C-Reactive Protein Total Protein Albumin Triglycerides Ur Specific [place] Urine Blood Large A Urine WBC (Auto) 88.0 H Urine Creatinine 90.9 H Digoxin Coronavirus (PCR) 04/19/22 04/19/22 04/19/22 02:08 03:45 03:45 WBC 14.2 H RBC Hgb Hct MCHC RDW Plt Count Lymph % (Auto) [place] % (Auto) Eos % (Auto) Lymph # (Auto) [place] # (Auto) Eos # (Auto) Seg Neutrophils % Seg Neuts % (Manual) Lymphocytes % (Manual) Eosinophils % (Manual) Seg Neutrophils # Seg Neutrophils # Man Lymphocytes # (Manual) Eosinophils # (Manual) PT Activated Coag Time D-Dimer Heparin Anti-Xa Level 0.18 L ABG pH ABG pO2 ABG HCO3 ABG O2 Saturation ABG Base Excess ABG Hemoglobin Oxyhemoglobin Sodium Potassium Chloride 94.2 L Carbon Dioxide BUN 39 H Creatinine 3.8 H Glucose 243 H POC Glucose Lactic Acid Calcium 7.1 L Phosphorus Magnesium 1.50 L Ferritin Direct Bilirubin AST 380 H ALT 289 H Alkaline Phosphatase Lactate Dehydrogenase Total Creatine Kinase CK-MB (CK-2) CK-MB (CK-2) Rel Index Troponin T C-Reactive Protein Total Protein 5.4 L Albumin 2.5 L Triglycerides Ur Specific [place] Urine Blood Urine WBC (Auto) Urine Creatinine Digoxin Coronavirus (PCR) 04/19/22 04/19/22 04/19/22 03:45 06:01 07:11 WBC RBC Hgb Hct MCHC RDW Plt Count Lymph % (Auto) [place] % (Auto) Eos % (Auto) Lymph # (Auto) [place] # (Auto) Eos # (Auto) Seg Neutrophils % Seg Neuts % (Manual) Lymphocytes % (Manual) Eosinophils % (Manual) Seg Neutrophils # Seg Neutrophils # Man Lymphocytes # (Manual) Eosinophils # (Manual) PT Activated Coag Time D-Dimer Heparin Anti-Xa Level ABG pH ABG pO2 ABG HCO3 ABG O2 Saturation ABG Base Excess ABG Hemoglobin Oxyhemoglobin Sodium Potassium Chloride Carbon Dioxide BUN Creatinine Glucose POC Glucose 165 H Lactic Acid 4.00 H* Calcium Phosphorus Magnesium Ferritin Direct Bilirubin AST ALT Alkaline Phosphatase Lactate Dehydrogenase Total Creatine Kinase 3270 H CK-MB (CK-2) 28.5 H CK-MB (CK-2) Rel Index Troponin T 2.980 H* C-Reactive Protein Total Protein Albumin Triglycerides Ur Specific [place] Urine Blood Urine WBC (Auto) Urine Creatinine Digoxin Coronavirus (PCR) 04/19/22 04/19/22 04/19/22 07:50 08:50 12:49 WBC RBC Hgb Hct MCHC RDW Plt Count Lymph % (Auto) [place] % (Auto) Eos % (Auto) Lymph # (Auto) [place] # (Auto) Eos # (Auto) Seg Neutrophils % Seg Neuts % (Manual) Lymphocytes % (Manual) Eosinophils % (Manual) Seg Neutrophils # Seg Neutrophils # Man Lymphocytes # (Manual) Eosinophils # (Manual) PT Activated Coag Time D-Dimer Heparin Anti-Xa Level ABG pH 7.471 H ABG pO2 58.9 L ABG HCO3 27.1 H ABG O2 Saturation 91.7 L ABG Base Excess 3.4 H ABG Hemoglobin 12.2 L Oxyhemoglobin 90.0 L Sodium Potassium Chloride Carbon Dioxide BUN Creatinine Glucose POC Glucose 331 H Lactic Acid 3.40 H* Calcium Phosphorus Magnesium Ferritin Direct Bilirubin AST ALT Alkaline Phosphatase Lactate Dehydrogenase Total Creatine Kinase CK-MB (CK-2) CK-MB (CK-2) Rel Index Troponin T C-Reactive Protein Total Protein Albumin Triglycerides Ur Specific [place] Urine Blood Urine WBC (Auto) Urine Creatinine Digoxin Coronavirus (PCR) 04/19/22 04/19/22 04/19/22 16:15 19:25 21:17 WBC RBC Hgb Hct MCHC RDW Plt Count Lymph % (Auto) [place] % (Auto) Eos % (Auto) Lymph # (Auto) [place] # (Auto) Eos # (Auto) Seg Neutrophils % Seg Neuts % (Manual) Lymphocytes % (Manual) Eosinophils % (Manual) Seg Neutrophils # Seg Neutrophils # Man Lymphocytes # (Manual) Eosinophils # (Manual) PT Activated Coag Time D-Dimer Heparin Anti-Xa Level ABG pH ABG pO2 ABG HCO3 ABG O2 Saturation ABG Base Excess ABG Hemoglobin Oxyhemoglobin Sodium Potassium Chloride Carbon Dioxide BUN Creatinine Glucose POC Glucose 304 H 251 H Lactic Acid 4.00 H* Calcium Phosphorus Magnesium Ferritin Direct Bilirubin AST ALT Alkaline Phosphatase Lactate Dehydrogenase Total Creatine Kinase CK-MB (CK-2) CK-MB (CK-2) Rel Index Troponin T C-Reactive Protein Total Protein Albumin Triglycerides Ur Specific [place] Urine Blood Urine WBC (Auto) Urine Creatinine Digoxin Coronavirus (PCR) 04/19/22 04/20/22 04/20/22 23:00 04:12 04:12 WBC 12.2 H RBC Hgb 11.6 L Hct 35.3 L MCHC RDW Plt Count Lymph % (Auto) [place] % (Auto) Eos % (Auto) Lymph # (Auto) [place] # (Auto) Eos # (Auto) Seg Neutrophils % Seg Neuts % (Manual) Lymphocytes % (Manual) Eosinophils % (Manual) Seg Neutrophils # Seg Neutrophils # Man Lymphocytes # (Manual) Eosinophils # (Manual) PT Activated Coag Time D-Dimer Heparin Anti-Xa Level 0.15 L ABG pH ABG pO2 ABG HCO3 ABG O2 Saturation ABG Base Excess ABG Hemoglobin Oxyhemoglobin Sodium Potassium Chloride Carbon Dioxide BUN Creatinine Glucose POC Glucose 236 H Lactic Acid Calcium Phosphorus Magnesium Ferritin Direct Bilirubin AST ALT Alkaline Phosphatase Lactate Dehydrogenase Total Creatine Kinase CK-MB (CK-2) CK-MB (CK-2) Rel Index Troponin T C-Reactive Protein Total Protein Albumin Triglycerides Ur Specific [place] Urine Blood Urine WBC (Auto) Urine Creatinine Digoxin Coronavirus (PCR) 04/20/22 04/20/22 04/20/22 04:12 04:12 09:10 WBC RBC Hgb Hct MCHC RDW Plt Count Lymph % (Auto) [place] % (Auto) Eos % (Auto) Lymph # (Auto) [place] # (Auto) Eos # (Auto) Seg Neutrophils % Seg Neuts % (Manual) Lymphocytes % (Manual) Eosinophils % (Manual) Seg Neutrophils # Seg Neutrophils # Man Lymphocytes # (Manual) Eosinophils # (Manual) PT Activated Coag Time D-Dimer Heparin Anti-Xa Level ABG pH ABG pO2 ABG HCO3 ABG O2 Saturation ABG Base Excess ABG Hemoglobin Oxyhemoglobin Sodium 133 L Potassium 3.5 L Chloride 91.9 L Carbon Dioxide BUN 44 H Creatinine 4.6 H Glucose 263 H POC Glucose Lactic Acid 2.80 H* Calcium 7.2 L Phosphorus Magnesium Ferritin Direct Bilirubin AST 553 H ALT 471 H Alkaline Phosphatase Lactate Dehydrogenase Total Creatine Kinase 3019 H CK-MB (CK-2) CK-MB (CK-2) Rel Index Troponin T C-Reactive Protein Total Protein 5.7 L Albumin 2.4 L Triglycerides 254 H Ur Specific [place] Urine Blood Urine WBC (Auto) Urine Creatinine Digoxin Coronavirus (PCR) 04/20/22 04/20/22 04/20/22 09:31 11:18 18:08 WBC RBC Hgb Hct MCHC RDW Plt Count Lymph % (Auto) [place] % (Auto) Eos % (Auto) Lymph # (Auto) [place] # (Auto) Eos # (Auto) Seg Neutrophils % Seg Neuts % (Manual) Lymphocytes % (Manual) Eosinophils % (Manual) Seg Neutrophils # Seg Neutrophils # Man Lymphocytes # (Manual) Eosinophils # (Manual) PT Activated Coag Time D-Dimer Heparin Anti-Xa Level ABG pH 7.512 H ABG pO2 ABG HCO3 26.2 H ABG O2 Saturation ABG Base Excess 3.2 H ABG Hemoglobin 9.0 L Oxyhemoglobin Sodium Potassium Chloride Carbon Dioxide BUN Creatinine Glucose POC Glucose 285 H 293 H Lactic Acid Calcium Phosphorus Magnesium Ferritin Direct Bilirubin AST ALT Alkaline Phosphatase Lactate Dehydrogenase Total Creatine Kinase CK-MB (CK-2) CK-MB (CK-2) Rel Index Troponin T C-Reactive Protein Total Protein Albumin Triglycerides Ur Specific [place] Urine Blood Urine WBC (Auto) Urine Creatinine Digoxin Coronavirus (PCR) 04/20/22 04/21/22 04/21/22 21:40 00:10 04:00 WBC RBC Hgb Hct MCHC RDW Plt Count Lymph % (Auto) [place] % (Auto) Eos % (Auto) Lymph # (Auto) [place] # (Auto) Eos # (Auto) Seg Neutrophils % Seg Neuts % (Manual) Lymphocytes % (Manual) Eosinophils % (Manual) Seg Neutrophils # Seg Neutrophils # Man Lymphocytes # (Manual) Eosinophils # (Manual) PT Activated Coag Time D-Dimer Heparin Anti-Xa Level 0.16 L ABG pH ABG pO2 59.4 L ABG HCO3 29.7 H ABG O2 Saturation 90.1 L ABG Base Excess 3.1 H ABG Hemoglobin 11.6 L Oxyhemoglobin 88.2 L Sodium Potassium Chloride Carbon Dioxide BUN Creatinine Glucose POC Glucose 290 H Lactic Acid Calcium Phosphorus Magnesium Ferritin Direct Bilirubin AST ALT Alkaline Phosphatase Lactate Dehydrogenase Total Creatine Kinase CK-MB (CK-2) CK-MB (CK-2) Rel Index Troponin T C-Reactive Protein Total Protein Albumin Triglycerides Ur Specific [place] Urine Blood Urine WBC (Auto) Urine Creatinine Digoxin Coronavirus (PCR) 04/21/22 04/21/22 04/21/22 04:30 04:30 05:57 WBC 17.9 H RBC Hgb 11.7 L Hct 35.1 L MCHC RDW Plt Count Lymph % (Auto) [place] % (Auto) Eos % (Auto) Lymph # (Auto) [place] # (Auto) Eos # (Auto) Seg Neutrophils % Seg Neuts % (Manual) Lymphocytes % (Manual) Eosinophils % (Manual) Seg Neutrophils # Seg Neutrophils # Man Lymphocytes # (Manual) Eosinophils # (Manual) PT Activated Coag Time D-Dimer Heparin Anti-Xa Level ABG pH ABG pO2 ABG HCO3 ABG O2 Saturation ABG Base Excess ABG Hemoglobin Oxyhemoglobin Sodium Potassium Chloride 95.7 L Carbon Dioxide BUN 45 H Creatinine 4.2 H Glucose 309 H POC Glucose 265 H Lactic Acid Calcium 7.4 L Phosphorus 5.60 H D Magnesium 2.50 H Ferritin Direct Bilirubin AST 217 H ALT 376 H Alkaline Phosphatase Lactate Dehydrogenase Total Creatine Kinase CK-MB (CK-2) CK-MB (CK-2) Rel Index Troponin T C-Reactive Protein Total Protein Albumin 2.8 L Triglycerides Ur Specific [place] Urine Blood Urine WBC (Auto) Urine Creatinine Digoxin Coronavirus (PCR) 04/21/22 04/21/22 04/21/22 12:14 13:45 18:10 WBC RBC Hgb Hct MCHC RDW Plt Count Lymph % (Auto) [place] % (Auto) Eos % (Auto) Lymph # (Auto) [place] # (Auto) Eos # (Auto) Seg Neutrophils % Seg Neuts % (Manual) Lymphocytes % (Manual) Eosinophils % (Manual) Seg Neutrophils # Seg Neutrophils # Man Lymphocytes # (Manual) Eosinophils # (Manual) PT Activated Coag Time 179 H D-Dimer Heparin Anti-Xa Level ABG pH ABG pO2 ABG HCO3 ABG O2 Saturation ABG Base Excess ABG Hemoglobin Oxyhemoglobin Sodium Potassium Chloride Carbon Dioxide BUN Creatinine Glucose POC Glucose 248 H 240 H Lactic Acid Calcium Phosphorus Magnesium Ferritin Direct Bilirubin AST ALT Alkaline Phosphatase Lactate Dehydrogenase Total Creatine Kinase CK-MB (CK-2) CK-MB (CK-2) Rel Index Troponin T C-Reactive Protein Total Protein Albumin Triglycerides Ur Specific [place] Urine Blood Urine WBC (Auto) Urine Creatinine Digoxin Coronavirus (PCR) 04/22/22 04/22/22 04/22/22 00:09 04:00 04:33 WBC 12.4 H RBC 3.34 L Hgb 9.8 L Hct 29.7 L MCHC RDW Plt Count 138 L Lymph % (Auto) [place] % (Auto) Eos % (Auto) Lymph # (Auto) [place] # (Auto) Eos # (Auto) Seg Neutrophils % Seg Neuts % (Manual) Lymphocytes % (Manual) Eosinophils % (Manual) Seg Neutrophils # Seg Neutrophils # Man Lymphocytes # (Manual) Eosinophils # (Manual) PT Activated Coag Time D-Dimer Heparin Anti-Xa Level ABG pH ABG pO2 ABG HCO3 ABG O2 Saturation ABG Base Excess ABG Hemoglobin Oxyhemoglobin Sodium Potassium Chloride Carbon Dioxide BUN 40 H Creatinine 2.9 H Glucose 269 H POC Glucose 248 H Lactic Acid Calcium 7.3 L Phosphorus Magnesium Ferritin Direct Bilirubin AST ALT Alkaline Phosphatase Lactate Dehydrogenase Total Creatine Kinase 973 H CK-MB (CK-2) CK-MB (CK-2) Rel Index Troponin T C-Reactive Protein Total Protein Albumin Triglycerides Ur Specific [place] Urine Blood Urine WBC (Auto) Urine Creatinine Digoxin Coronavirus (PCR) 04/22/22 04/22/22 04/22/22 10:13 11:51 18:02 WBC RBC Hgb Hct MCHC RDW Plt Count Lymph % (Auto) [place] % (Auto) Eos % (Auto) Lymph # (Auto) [place] # (Auto) Eos # (Auto) Seg Neutrophils % Seg Neuts % (Manual) Lymphocytes % (Manual) Eosinophils % (Manual) Seg Neutrophils # Seg Neutrophils # Man Lymphocytes # (Manual) Eosinophils # (Manual) PT Activated Coag Time D-Dimer Heparin Anti-Xa Level ABG pH ABG pO2 56.1 L ABG HCO3 28.4 H ABG O2 Saturation 89.3 L ABG Base Excess ABG Hemoglobin 9.8 L Oxyhemoglobin 87.7 L Sodium Potassium Chloride Carbon Dioxide BUN Creatinine Glucose POC Glucose 302 H 266 H Lactic Acid Calcium Phosphorus Magnesium Ferritin Direct Bilirubin AST ALT Alkaline Phosphatase Lactate Dehydrogenase Total Creatine Kinase CK-MB (CK-2) CK-MB (CK-2) Rel Index Troponin T C-Reactive Protein Total Protein Albumin Triglycerides Ur Specific [place] Urine Blood Urine WBC (Auto) Urine Creatinine Digoxin Coronavirus (PCR) 04/22/22 04/22/22 04/23/22 21:18 23:30 04:19 WBC RBC 3.34 L Hgb 9.9 L Hct 29.9 L MCHC RDW Plt Count Lymph % (Auto) [place] % (Auto) Eos % (Auto) Lymph # (Auto) [place] # (Auto) Eos # (Auto) Seg Neutrophils % Seg Neuts % (Manual) 74.0 H Lymphocytes % (Manual) 10.0 L Eosinophils % (Manual) 7.0 H Seg Neutrophils # Seg Neutrophils # Man 8.0 H Lymphocytes # (Manual) 1.1 L Eosinophils # (Manual) 0.8 H PT Activated Coag Time D-Dimer Heparin Anti-Xa Level ABG pH ABG pO2 ABG HCO3 ABG O2 Saturation ABG Base Excess ABG Hemoglobin Oxyhemoglobin Sodium Potassium Chloride Carbon Dioxide BUN Creatinine Glucose POC Glucose 299 H 299 H Lactic Acid Calcium Phosphorus Magnesium Ferritin Direct Bilirubin AST ALT Alkaline Phosphatase Lactate Dehydrogenase Total Creatine Kinase CK-MB (CK-2) CK-MB (CK-2) Rel Index Troponin T C-Reactive Protein Total Protein Albumin Triglycerides Ur Specific [place] Urine Blood Urine WBC (Auto) Urine Creatinine Digoxin Coronavirus (PCR) 04/23/22 04/23/22 04/23/22 04:19 05:24 11:20 WBC RBC Hgb Hct MCHC RDW Plt Count Lymph % (Auto) [place] % (Auto) Eos % (Auto) Lymph # (Auto) [place] # (Auto) Eos # (Auto) Seg Neutrophils % Seg Neuts % (Manual) Lymphocytes % (Manual) Eosinophils % (Manual) Seg Neutrophils # Seg Neutrophils # Man Lymphocytes # (Manual) Eosinophils # (Manual) PT Activated Coag Time D-Dimer Heparin Anti-Xa Level ABG pH ABG pO2 ABG HCO3 ABG O2 Saturation ABG Base Excess ABG Hemoglobin Oxyhemoglobin Sodium Potassium 3.5 L Chloride Carbon Dioxide BUN 30 H Creatinine 2.3 H Glucose 289 H POC Glucose 271 H 302 H Lactic Acid Calcium 7.8 L Phosphorus Magnesium Ferritin Direct Bilirubin AST 46 H ALT 158 H Alkaline Phosphatase 138 H Lactate Dehydrogenase Total Creatine Kinase CK-MB (CK-2) CK-MB (CK-2) Rel Index Troponin T C-Reactive Protein Total Protein 6.2 L Albumin 2.6 L Triglycerides 230 H Ur Specific [place] Urine Blood Urine WBC (Auto) Urine Creatinine Digoxin Coronavirus (PCR) 04/23/22 04/23/22 04/23/22 18:07 18:20 21:14 WBC RBC Hgb Hct MCHC RDW Plt Count Lymph % (Auto) [place] % (Auto) Eos % (Auto) Lymph # (Auto) [place] # (Auto) Eos # (Auto) Seg Neutrophils % Seg Neuts % (Manual) Lymphocytes % (Manual) Eosinophils % (Manual) Seg Neutrophils # Seg Neutrophils # Man Lymphocytes # (Manual) Eosinophils # (Manual) PT Activated Coag Time D-Dimer Heparin Anti-Xa Level ABG pH ABG pO2 ABG HCO3 31.6 H ABG O2 Saturation ABG Base Excess 4.8 H ABG Hemoglobin 18.3 H Oxyhemoglobin 94.8 L Sodium Potassium Chloride Carbon Dioxide BUN Creatinine Glucose POC Glucose 228 H 175 H Lactic Acid Calcium Phosphorus Magnesium Ferritin Direct Bilirubin AST ALT Alkaline Phosphatase Lactate Dehydrogenase Total Creatine Kinase CK-MB (CK-2) CK-MB (CK-2) Rel Index Troponin T C-Reactive Protein Total Protein Albumin Triglycerides Ur Specific [place] Urine Blood Urine WBC (Auto) Urine Creatinine Digoxin Coronavirus (PCR) 04/23/22 04/24/22 04/24/22 23:24 04:35 04:47 WBC RBC Hgb Hct MCHC RDW Plt Count Lymph % (Auto) [place] % (Auto) Eos % (Auto) Lymph # (Auto) [place] # (Auto) Eos # (Auto) Seg Neutrophils % Seg Neuts % (Manual) Lymphocytes % (Manual) Eosinophils % (Manual) Seg Neutrophils # Seg Neutrophils # Man Lymphocytes # (Manual) Eosinophils # (Manual) PT Activated Coag Time D-Dimer Heparin Anti-Xa Level ABG pH ABG pO2 ABG HCO3 31.5 H ABG O2 Saturation ABG Base Excess 6.1 H ABG Hemoglobin 10.3 L Oxyhemoglobin Sodium Potassium Chloride Carbon Dioxide BUN Creatinine Glucose POC Glucose 168 H 177 H Lactic Acid Calcium Phosphorus Magnesium Ferritin Direct Bilirubin AST ALT Alkaline Phosphatase Lactate Dehydrogenase Total Creatine Kinase CK-MB (CK-2) CK-MB (CK-2) Rel Index Troponin T C-Reactive Protein Total Protein Albumin Triglycerides Ur Specific [place] Urine Blood Urine WBC (Auto) Urine Creatinine Digoxin Coronavirus (PCR) 04/24/22 04/24/22 04/24/22 06:00 06:00 12:45 WBC 14.0 H RBC 3.57 L Hgb 10.1 L Hct 31.9 L MCHC RDW Plt Count Lymph % (Auto) 4.7 L [place] % (Auto) 8.8 H Eos % (Auto) 6.0 H Lymph # (Auto) 0.7 L [place] # (Auto) 1.2 H Eos # (Auto) 0.8 H Seg Neutrophils % 80.5 H Seg Neuts % (Manual) Lymphocytes % (Manual) Eosinophils % (Manual) Seg Neutrophils # 11.3 H Seg Neutrophils # Man Lymphocytes # (Manual) Eosinophils # (Manual) PT Activated Coag Time D-Dimer Heparin Anti-Xa Level ABG pH ABG pO2 ABG HCO3 ABG O2 Saturation ABG Base Excess ABG Hemoglobin Oxyhemoglobin Sodium Potassium 3.4 L Chloride Carbon Dioxide BUN 25 H Creatinine 1.8 H Glucose 218 H POC Glucose 227 H Lactic Acid Calcium 8.2 L Phosphorus Magnesium Ferritin Direct Bilirubin AST ALT 99 H Alkaline Phosphatase 141 H Lactate Dehydrogenase Total Creatine Kinase CK-MB (CK-2) CK-MB (CK-2) Rel Index Troponin T C-Reactive Protein Total Protein 6.2 L Albumin 2.2 L Triglycerides Ur Specific [place] Urine Blood Urine WBC (Auto) Urine Creatinine Digoxin Coronavirus (PCR) 04/24/22 04/24/22 04/24/22 17:57 21:19 23:24 WBC RBC Hgb Hct MCHC RDW Plt Count Lymph % (Auto) [place] % (Auto) Eos % (Auto) Lymph # (Auto) [place] # (Auto) Eos # (Auto) Seg Neutrophils % Seg Neuts % (Manual) Lymphocytes % (Manual) Eosinophils % (Manual) Seg Neutrophils # Seg Neutrophils # Man Lymphocytes # (Manual) Eosinophils # (Manual) PT Activated Coag Time D-Dimer Heparin Anti-Xa Level ABG pH ABG pO2 ABG HCO3 ABG O2 Saturation ABG Base Excess ABG Hemoglobin Oxyhemoglobin Sodium Potassium Chloride Carbon Dioxide BUN Creatinine Glucose POC Glucose 207 H 186 H 203 H Lactic Acid Calcium Phosphorus Magnesium Ferritin Direct Bilirubin AST ALT Alkaline Phosphatase Lactate Dehydrogenase Total Creatine Kinase CK-MB (CK-2) CK-MB (CK-2) Rel Index Troponin T C-Reactive Protein Total Protein Albumin Triglycerides Ur Specific [place] Urine Blood Urine WBC (Auto) Urine Creatinine Digoxin Coronavirus (PCR) 04/25/22 04/25/22 04/25/22 03:30 03:30 04:38 WBC 19.7 H RBC 3.39 L Hgb 9.8 L Hct 30.2 L MCHC RDW 15.6 H Plt Count Lymph % (Auto) 4.7 L [place] % (Auto) Eos % (Auto) 5.0 H Lymph # (Auto) 0.9 L [place] # (Auto) 1.2 H Eos # (Auto) 1.0 H Seg Neutrophils % 84.0 H Seg Neuts % (Manual) Lymphocytes % (Manual) Eosinophils % (Manual) Seg Neutrophils # 16.5 H Seg Neutrophils # Man Lymphocytes # (Manual) Eosinophils # (Manual) PT Activated Coag Time D-Dimer Heparin Anti-Xa Level ABG pH ABG pO2 ABG HCO3 ABG O2 Saturation ABG Base Excess ABG Hemoglobin Oxyhemoglobin Sodium 151 H Potassium 3.5 L Chloride 108.6 H Carbon Dioxide 31 H BUN 27 H Creatinine 1.9 H Glucose 144 H POC Glucose 135 H Lactic Acid Calcium 8.3 L Phosphorus Magnesium Ferritin Direct Bilirubin AST ALT Alkaline Phosphatase Lactate Dehydrogenase Total Creatine Kinase CK-MB (CK-2) CK-MB (CK-2) Rel Index Troponin T C-Reactive Protein Total Protein Albumin Triglycerides Ur Specific [place] Urine Blood Urine WBC (Auto) Urine Creatinine Digoxin Coronavirus (PCR) 04/25/22 04/25/22 04/25/22 05:09 12:12 17:58 WBC RBC Hgb Hct MCHC RDW Plt Count Lymph % (Auto) [place] % (Auto) Eos % (Auto) Lymph # (Auto) [place] # (Auto) Eos # (Auto) Seg Neutrophils % Seg Neuts % (Manual) Lymphocytes % (Manual) Eosinophils % (Manual) Seg Neutrophils # Seg Neutrophils # Man Lymphocytes # (Manual) Eosinophils # (Manual) PT Activated Coag Time D-Dimer Heparin Anti-Xa Level ABG pH ABG pO2 ABG HCO3 32.2 H ABG O2 Saturation ABG Base Excess 6.7 H ABG Hemoglobin 9.9 L Oxyhemoglobin 94.9 L Sodium Potassium Chloride Carbon Dioxide BUN Creatinine Glucose POC Glucose 218 H 229 H Lactic Acid Calcium Phosphorus Magnesium Ferritin Direct Bilirubin AST ALT Alkaline Phosphatase Lactate Dehydrogenase Total Creatine Kinase CK-MB (CK-2) CK-MB (CK-2) Rel Index Troponin T C-Reactive Protein Total Protein Albumin Triglycerides Ur Specific [place] Urine Blood Urine WBC (Auto) Urine Creatinine Digoxin Coronavirus (PCR) 04/25/22 04/25/22 04/26/22 18:00 23:48 05:20 WBC RBC Hgb 9.4 L Hct 30.1 L MCHC RDW Plt Count Lymph % (Auto) [place] % (Auto) Eos % (Auto) Lymph # (Auto) [place] # (Auto) Eos # (Auto) Seg Neutrophils % Seg Neuts % (Manual) Lymphocytes % (Manual) Eosinophils % (Manual) Seg Neutrophils # Seg Neutrophils # Man Lymphocytes # (Manual) Eosinophils # (Manual) PT Activated Coag Time D-Dimer Heparin Anti-Xa Level ABG pH ABG pO2 ABG HCO3 32.4 H ABG O2 Saturation ABG Base Excess 6.8 H ABG Hemoglobin 9.5 L Oxyhemoglobin Sodium Potassium Chloride Carbon Dioxide BUN Creatinine Glucose POC Glucose 214 H Lactic Acid Calcium Phosphorus Magnesium Ferritin Direct Bilirubin AST ALT Alkaline Phosphatase Lactate Dehydrogenase Total Creatine Kinase CK-MB (CK-2) CK-MB (CK-2) Rel Index Troponin T C-Reactive Protein Total Protein Albumin Triglycerides Ur Specific [place] Urine Blood Urine WBC (Auto) Urine Creatinine Digoxin Coronavirus (PCR) 04/26/22 04/26/22 04/26/22 05:20 05:51 11:39 WBC RBC Hgb Hct MCHC RDW Plt Count Lymph % (Auto) [place] % (Auto) Eos % (Auto) Lymph # (Auto) [place] # (Auto) Eos # (Auto) Seg Neutrophils % Seg Neuts % (Manual) Lymphocytes % (Manual) Eosinophils % (Manual) Seg Neutrophils # Seg Neutrophils # Man Lymphocytes # (Manual) Eosinophils # (Manual) PT Activated Coag Time D-Dimer Heparin Anti-Xa Level ABG pH ABG pO2 ABG HCO3 ABG O2 Saturation ABG Base Excess ABG Hemoglobin Oxyhemoglobin Sodium 147 H Potassium Chloride Carbon Dioxide 33 H BUN 27 H Creatinine 1.6 H Glucose 221 H POC Glucose 227 H 263 H Lactic Acid Calcium Phosphorus Magnesium Ferritin Direct Bilirubin AST ALT Alkaline Phosphatase Lactate Dehydrogenase Total Creatine Kinase CK-MB (CK-2) CK-MB (CK-2) Rel Index Troponin T C-Reactive Protein Total Protein Albumin Triglycerides Ur Specific [place] Urine Blood Urine WBC (Auto) Urine Creatinine Digoxin Coronavirus (PCR) 04/26/22 04/26/22 04/27/22 16:22 23:14 04:00 WBC RBC Hgb Hct MCHC RDW Plt Count Lymph % (Auto) [place] % (Auto) Eos % (Auto) Lymph # (Auto) [place] # (Auto) Eos # (Auto) Seg Neutrophils % Seg Neuts % (Manual) Lymphocytes % (Manual) Eosinophils % (Manual) Seg Neutrophils # Seg Neutrophils # Man Lymphocytes # (Manual) Eosinophils # (Manual) PT Activated Coag Time D-Dimer Heparin Anti-Xa Level ABG pH ABG pO2 ABG HCO3 ABG O2 Saturation ABG Base Excess ABG Hemoglobin Oxyhemoglobin Sodium Potassium Chloride Carbon Dioxide BUN 23 H Creatinine 1.4 H Glucose 231 H POC Glucose 250 H 221 H Lactic Acid Calcium 8.3 L Phosphorus Magnesium Ferritin Direct Bilirubin AST 45 H ALT Alkaline Phosphatase 180 H Lactate Dehydrogenase Total Creatine Kinase CK-MB (CK-2) CK-MB (CK-2) Rel Index Troponin T C-Reactive Protein Total Protein Albumin 2.1 L Triglycerides Ur Specific [place] Urine Blood Urine WBC (Auto) Urine Creatinine Digoxin Coronavirus (PCR) 04/27/22 04/27/22 04/27/22 04:00 05:25 11:08 WBC 20.1 H RBC 3.28 L Hgb 9.5 L Hct 29.3 L MCHC RDW Plt Count Lymph % (Auto) 5.9 L [place] % (Auto) 8.0 H Eos % (Auto) 5.5 H Lymph # (Auto) [place] # (Auto) 1.6 H Eos # (Auto) 1.1 H Seg Neutrophils % 80.3 H Seg Neuts % (Manual) Lymphocytes % (Manual) Eosinophils % (Manual) Seg Neutrophils # 16.2 H Seg Neutrophils # Man Lymphocytes # (Manual) Eosinophils # (Manual) PT Activated Coag Time D-Dimer Heparin Anti-Xa Level ABG pH ABG pO2 ABG HCO3 ABG O2 Saturation ABG Base Excess ABG Hemoglobin Oxyhemoglobin Sodium Potassium Chloride Carbon Dioxide BUN Creatinine Glucose POC Glucose 234 H 224 H Lactic Acid Calcium Phosphorus Magnesium Ferritin Direct Bilirubin AST ALT Alkaline Phosphatase Lactate Dehydrogenase Total Creatine Kinase CK-MB (CK-2) CK-MB (CK-2) Rel Index Troponin T C-Reactive Protein Total Protein Albumin Triglycerides Ur Specific [place] Urine Blood Urine WBC (Auto) Urine Creatinine Digoxin Coronavirus (PCR) 04/28/22 04/28/22 04/28/22 00:01 05:25 05:28 WBC 16.1 H RBC 3.32 L Hgb 9.4 L Hct 29.9 L MCHC RDW Plt Count Lymph % (Auto) [place] % (Auto) Eos % (Auto) Lymph # (Auto) [place] # (Auto) Eos # (Auto) Seg Neutrophils % Seg Neuts % (Manual) Lymphocytes % (Manual) Eosinophils % (Manual) Seg Neutrophils # Seg Neutrophils # Man Lymphocytes # (Manual) Eosinophils # (Manual) PT Activated Coag Time D-Dimer Heparin Anti-Xa Level ABG pH 7.489 H ABG pO2 72.5 L ABG HCO3 27.8 H ABG O2 Saturation ABG Base Excess 4.3 H ABG Hemoglobin 9.2 L Oxyhemoglobin 94.6 L Sodium Potassium Chloride Carbon Dioxide BUN Creatinine Glucose POC Glucose 189 H Lactic Acid Calcium Phosphorus Magnesium Ferritin Direct Bilirubin AST ALT Alkaline Phosphatase Lactate Dehydrogenase Total Creatine Kinase CK-MB (CK-2) CK-MB (CK-2) Rel Index Troponin T C-Reactive Protein Total Protein Albumin Triglycerides Ur Specific [place] Urine Blood Urine WBC (Auto) Urine Creatinine Digoxin Coronavirus (PCR) 04/28/22 04/28/22 04/28/22 05:28 05:44 08:20 WBC RBC Hgb Hct MCHC RDW Plt Count Lymph % (Auto) [place] % (Auto) Eos % (Auto) Lymph # (Auto) [place] # (Auto) Eos # (Auto) Seg Neutrophils % Seg Neuts % (Manual) Lymphocytes % (Manual) Eosinophils % (Manual) Seg Neutrophils # Seg Neutrophils # Man Lymphocytes # (Manual) Eosinophils # (Manual) PT Activated Coag Time D-Dimer Heparin Anti-Xa Level ABG pH ABG pO2 ABG HCO3 ABG O2 Saturation ABG Base Excess ABG Hemoglobin Oxyhemoglobin Sodium Potassium Chloride Carbon Dioxide BUN 22 H Creatinine 1.4 H Glucose 179 H POC Glucose 181 H Lactic Acid Calcium 8.2 L Phosphorus Magnesium Ferritin Direct Bilirubin AST ALT Alkaline Phosphatase Lactate Dehydrogenase Total Creatine Kinase CK-MB (CK-2) CK-MB (CK-2) Rel Index Troponin T C-Reactive Protein 15.30 H Total Protein Albumin Triglycerides Ur Specific [place] Urine Blood Urine WBC (Auto) Urine Creatinine Digoxin Coronavirus (PCR) 04/28/22 04/28/22 04/28/22 08:35 11:13 12:07 WBC RBC Hgb Hct MCHC RDW Plt Count Lymph % (Auto) [place] % (Auto) Eos % (Auto) Lymph # (Auto) [place] # (Auto) Eos # (Auto) Seg Neutrophils % Seg Neuts % (Manual) Lymphocytes % (Manual) Eosinophils % (Manual) Seg Neutrophils # Seg Neutrophils # Man Lymphocytes # (Manual) Eosinophils # (Manual) PT Activated Coag Time D-Dimer Heparin Anti-Xa Level ABG pH 7.203 L ABG pO2 43.7 L ABG HCO3 27.7 H ABG O2 Saturation 63.0 L ABG Base Excess ABG Hemoglobin 10.6 L Oxyhemoglobin 61.6 L Sodium Potassium Chloride Carbon Dioxide BUN Creatinine Glucose POC Glucose 131 H Lactic Acid Calcium Phosphorus Magnesium Ferritin Direct Bilirubin AST ALT Alkaline Phosphatase Lactate Dehydrogenase Total Creatine Kinase CK-MB (CK-2) CK-MB (CK-2) Rel Index Troponin T C-Reactive Protein Total Protein Albumin Triglycerides Ur Specific [place] 1.000 L Urine Blood Urine WBC (Auto) 21.0 H Urine Creatinine Digoxin Coronavirus (PCR) 04/28/22 04/28/22 04/29/22 16:20 16:27 00:32 WBC RBC Hgb Hct MCHC RDW Plt Count Lymph % (Auto) [place] % (Auto) Eos % (Auto) Lymph # (Auto) [place] # (Auto) Eos # (Auto) Seg Neutrophils % Seg Neuts % (Manual) Lymphocytes % (Manual) Eosinophils % (Manual) Seg Neutrophils # Seg Neutrophils # Man Lymphocytes # (Manual) Eosinophils # (Manual) PT Activated Coag Time D-Dimer Heparin Anti-Xa Level ABG pH 7.461 H ABG pO2 99.9 H ABG HCO3 28.0 H ABG O2 Saturation ABG Base Excess 3.9 H ABG Hemoglobin 7.7 L Oxyhemoglobin Sodium Potassium Chloride Carbon Dioxide BUN Creatinine Glucose POC Glucose 136 H 205 H Lactic Acid Calcium Phosphorus Magnesium Ferritin Direct Bilirubin AST ALT Alkaline Phosphatase Lactate Dehydrogenase Total Creatine Kinase CK-MB (CK-2) CK-MB (CK-2) Rel Index Troponin T C-Reactive Protein Total Protein Albumin Triglycerides Ur Specific [place] Urine Blood Urine WBC (Auto) Urine Creatinine Digoxin Coronavirus (PCR) 04/29/22 04/29/22 04/29/22 02:35 03:20 04:20 WBC 19.8 H RBC 3.17 L Hgb 9.0 L Hct 27.9 L MCHC RDW Plt Count 481 H Lymph % (Auto) 5.7 L [place] % (Auto) 7.8 H Eos % (Auto) Lymph # (Auto) 1.1 L [place] # (Auto) 1.5 H Eos # (Auto) 0.8 H Seg Neutrophils % 82.0 H Seg Neuts % (Manual) Lymphocytes % (Manual) Eosinophils % (Manual) Seg Neutrophils # 16.3 H Seg Neutrophils # Man Lymphocytes # (Manual) Eosinophils # (Manual) PT Activated Coag Time D-Dimer Heparin Anti-Xa Level ABG pH 7.487 H ABG pO2 176.1 H ABG HCO3 27.6 H ABG O2 Saturation 99.2 H ABG Base Excess 4.0 H ABG Hemoglobin 9.6 L Oxyhemoglobin Sodium Potassium Chloride Carbon Dioxide BUN Creatinine Glucose POC Glucose 223 H Lactic Acid Calcium Phosphorus Magnesium Ferritin Direct Bilirubin AST ALT Alkaline Phosphatase Lactate Dehydrogenase Total Creatine Kinase CK-MB (CK-2) CK-MB (CK-2) Rel Index Troponin T C-Reactive Protein Total Protein Albumin Triglycerides Ur Specific [place] Urine Blood Urine WBC (Auto) Urine Creatinine Digoxin Coronavirus (PCR) 04/29/22 04/29/22 04/29/22 04:20 05:43 09:38 WBC RBC Hgb Hct MCHC RDW Plt Count Lymph % (Auto) [place] % (Auto) Eos % (Auto) Lymph # (Auto) [place] # (Auto) Eos # (Auto) Seg Neutrophils % Seg Neuts % (Manual) Lymphocytes % (Manual) Eosinophils % (Manual) Seg Neutrophils # Seg Neutrophils # Man Lymphocytes # (Manual) Eosinophils # (Manual) PT Activated Coag Time D-Dimer Heparin Anti-Xa Level ABG pH ABG pO2 ABG HCO3 ABG O2 Saturation ABG Base Excess ABG Hemoglobin Oxyhemoglobin Sodium Potassium Chloride Carbon Dioxide BUN 30 H Creatinine 1.6 H Glucose 236 H POC Glucose 202 H Lactic Acid Calcium 8.1 L Phosphorus Magnesium Ferritin Direct Bilirubin AST 143 H ALT 105 H Alkaline Phosphatase 210 H Lactate Dehydrogenase Total Creatine Kinase CK-MB (CK-2) CK-MB (CK-2) Rel Index Troponin T C-Reactive Protein Total Protein 6.2 L Albumin 2.0 L Triglycerides Ur Specific [place] Urine Blood Urine WBC (Auto) Urine Creatinine Digoxin Coronavirus (PCR) Positive A 04/29/22 04/29/22 04/29/22 12:08 18:14 21:11 WBC RBC Hgb Hct MCHC RDW Plt Count Lymph % (Auto) [place] % (Auto) Eos % (Auto) Lymph # (Auto) [place] # (Auto) Eos # (Auto) Seg Neutrophils % Seg Neuts % (Manual) Lymphocytes % (Manual) Eosinophils % (Manual) Seg Neutrophils # Seg Neutrophils # Man Lymphocytes # (Manual) Eosinophils # (Manual) PT Activated Coag Time D-Dimer Heparin Anti-Xa Level ABG pH ABG pO2 ABG HCO3 ABG O2 Saturation ABG Base Excess ABG Hemoglobin Oxyhemoglobin Sodium Potassium Chloride Carbon Dioxide BUN Creatinine Glucose POC Glucose 152 H 151 H 140 H Lactic Acid Calcium Phosphorus Magnesium Ferritin Direct Bilirubin AST ALT Alkaline Phosphatase Lactate Dehydrogenase Total Creatine Kinase CK-MB (CK-2) CK-MB (CK-2) Rel Index Troponin T C-Reactive Protein Total Protein Albumin Triglycerides Ur Specific [place] Urine Blood Urine WBC (Auto) Urine Creatinine Digoxin Coronavirus (PCR) 04/29/22 04/30/22 04/30/22 23:58 04:25 04:25 WBC 13.3 H RBC 2.81 L Hgb 8.0 L Hct 24.4 L MCHC RDW Plt Count 441 H Lymph % (Auto) [place] % (Auto) Eos % (Auto) Lymph # (Auto) [place] # (Auto) Eos # (Auto) Seg Neutrophils % Seg Neuts % (Manual) Lymphocytes % (Manual) Eosinophils % (Manual) Seg Neutrophils # Seg Neutrophils # Man Lymphocytes # (Manual) Eosinophils # (Manual) PT Activated Coag Time D-Dimer Heparin Anti-Xa Level ABG pH ABG pO2 ABG HCO3 ABG O2 Saturation ABG Base Excess ABG Hemoglobin Oxyhemoglobin Sodium Potassium 3.2 L Chloride Carbon Dioxide BUN 26 H Creatinine 1.5 H Glucose 105 H POC Glucose 135 H Lactic Acid Calcium 8.0 L Phosphorus Magnesium Ferritin Direct Bilirubin 0.3 H AST 138 H ALT 94 H Alkaline Phosphatase 172 H Lactate Dehydrogenase Total Creatine Kinase CK-MB (CK-2) CK-MB (CK-2) Rel Index Troponin T C-Reactive Protein Total Protein 5.5 L Albumin 2.0 L Triglycerides Ur Specific [place] Urine Blood Urine WBC (Auto) Urine Creatinine Digoxin Coronavirus (PCR) 04/30/22 04/30/22 04/30/22 04:25 05:20 10:19 WBC RBC Hgb Hct MCHC RDW Plt Count Lymph % (Auto) [place] % (Auto) Eos % (Auto) Lymph # (Auto) [place] # (Auto) Eos # (Auto) Seg Neutrophils % Seg Neuts % (Manual) Lymphocytes % (Manual) Eosinophils % (Manual) Seg Neutrophils # Seg Neutrophils # Man Lymphocytes # (Manual) Eosinophils # (Manual) PT Activated Coag Time D-Dimer Heparin Anti-Xa Level ABG pH 7.514 H ABG pO2 73.4 L ABG HCO3 28.1 H ABG O2 Saturation ABG Base Excess 4.8 H ABG Hemoglobin 7.8 L Oxyhemoglobin 94.9 L Sodium Potassium 3.3 L Chloride Carbon Dioxide BUN 26 H Creatinine 1.4 H Glucose 108 H POC Glucose Lactic Acid Calcium 7.5 L Phosphorus Magnesium Ferritin Direct Bilirubin AST 183 H ALT 112 H Alkaline Phosphatase 175 H Lactate Dehydrogenase Total Creatine Kinase CK-MB (CK-2) CK-MB (CK-2) Rel Index Troponin T C-Reactive Protein Total Protein 5.0 L Albumin 2.1 L Triglycerides Ur Specific [place] Urine Blood Urine WBC (Auto) Urine Creatinine Digoxin 0.6 L Coronavirus (PCR) 04/30/22 04/30/22 04/30/22 12:46 17:37 21:18 WBC RBC Hgb Hct MCHC RDW Plt Count Lymph % (Auto) [place] % (Auto) Eos % (Auto) Lymph # (Auto) [place] # (Auto) Eos # (Auto) Seg Neutrophils % Seg Neuts % (Manual) Lymphocytes % (Manual) Eosinophils % (Manual) Seg Neutrophils # Seg Neutrophils # Man Lymphocytes # (Manual) Eosinophils # (Manual) PT Activated Coag Time D-Dimer Heparin Anti-Xa Level ABG pH ABG pO2 ABG HCO3 ABG O2 Saturation ABG Base Excess ABG Hemoglobin Oxyhemoglobin Sodium Potassium Chloride Carbon Dioxide BUN Creatinine Glucose POC Glucose 109 H 143 H 182 H Lactic Acid Calcium Phosphorus Magnesium Ferritin Direct Bilirubin AST ALT Alkaline Phosphatase Lactate Dehydrogenase Total Creatine Kinase CK-MB (CK-2) CK-MB (CK-2) Rel Index Troponin T C-Reactive Protein Total Protein Albumin Triglycerides Ur Specific [place] Urine Blood Urine WBC (Auto) Urine Creatinine Digoxin Coronavirus (PCR) 04/30/22 05/01/22 05/01/22 23:41 04:00 04:44 WBC 16.9 H RBC 3.03 L Hgb 8.7 L Hct 26.7 L MCHC RDW Plt Count 566 H Lymph % (Auto) [place] % (Auto) Eos % (Auto) Lymph # (Auto) [place] # (Auto) Eos # (Auto) Seg Neutrophils % Seg Neuts % (Manual) Lymphocytes % (Manual) Eosinophils % (Manual) Seg Neutrophils # Seg Neutrophils # Man Lymphocytes # (Manual) Eosinophils # (Manual) PT Activated Coag Time D-Dimer Heparin Anti-Xa Level ABG pH ABG pO2 ABG HCO3 ABG O2 Saturation ABG Base Excess ABG Hemoglobin Oxyhemoglobin Sodium Potassium Chloride 107.1 H Carbon Dioxide BUN 33 H Creatinine 1.5 H Glucose 161 H POC Glucose 196 H Lactic Acid Calcium 8.0 L Phosphorus Magnesium Ferritin Direct Bilirubin AST 137 H ALT 111 H Alkaline Phosphatase 183 H Lactate Dehydrogenase Total Creatine Kinase CK-MB (CK-2) CK-MB (CK-2) Rel Index Troponin T C-Reactive Protein Total Protein Albumin 2.1 L Triglycerides 214 H Ur Specific [place] Urine Blood Urine WBC (Auto) Urine Creatinine Digoxin Coronavirus (PCR) 05/01/22 05/01/22 05/01/22 05:07 09:40 12:16 WBC RBC Hgb Hct MCHC RDW Plt Count Lymph % (Auto) [place] % (Auto) Eos % (Auto) Lymph # (Auto) [place] # (Auto) Eos # (Auto) Seg Neutrophils % Seg Neuts % (Manual) Lymphocytes % (Manual) Eosinophils % (Manual) Seg Neutrophils # Seg Neutrophils # Man Lymphocytes # (Manual) Eosinophils # (Manual) PT Activated Coag Time D-Dimer Heparin Anti-Xa Level ABG pH 7.496 H ABG pO2 72.8 L ABG HCO3 26.7 H ABG O2 Saturation ABG Base Excess ABG Hemoglobin 8.5 L Oxyhemoglobin Sodium Potassium Chloride Carbon Dioxide BUN Creatinine Glucose POC Glucose 145 H Lactic Acid Calcium Phosphorus Magnesium Ferritin Direct Bilirubin AST ALT Alkaline Phosphatase Lactate Dehydrogenase Total Creatine Kinase CK-MB (CK-2) CK-MB (CK-2) Rel Index Troponin T C-Reactive Protein Total Protein Albumin Triglycerides Ur Specific [place] Urine Blood Urine WBC (Auto) Urine Creatinine Digoxin 0.5 L Coronavirus (PCR) 05/01/22 05/01/22 05/01/22 12:17 14:30 16:14 WBC RBC Hgb Hct MCHC RDW Plt Count Lymph % (Auto) [place] % (Auto) Eos % (Auto) Lymph # (Auto) [place] # (Auto) Eos # (Auto) Seg Neutrophils % Seg Neuts % (Manual) Lymphocytes % (Manual) Eosinophils % (Manual) Seg Neutrophils # Seg Neutrophils # Man Lymphocytes # (Manual) Eosinophils # (Manual) PT Activated Coag Time D-Dimer Heparin Anti-Xa Level ABG pH ABG pO2 ABG HCO3 26.2 H ABG O2 Saturation ABG Base Excess ABG Hemoglobin 7.8 L Oxyhemoglobin Sodium Potassium Chloride Carbon Dioxide BUN Creatinine Glucose POC Glucose 232 H 220 H Lactic Acid Calcium Phosphorus Magnesium Ferritin Direct Bilirubin AST ALT Alkaline Phosphatase Lactate Dehydrogenase Total Creatine Kinase CK-MB (CK-2) CK-MB (CK-2) Rel Index Troponin T C-Reactive Protein Total Protein Albumin Triglycerides Ur Specific [place] Urine Blood Urine WBC (Auto) Urine Creatinine Digoxin Coronavirus (PCR) 05/01/22 05/01/22 05/02/22 21:59 23:45 04:45 WBC RBC Hgb Hct MCHC RDW Plt Count Lymph % (Auto) [place] % (Auto) Eos % (Auto) Lymph # (Auto) [place] # (Auto) Eos # (Auto) Seg Neutrophils % Seg Neuts % (Manual) Lymphocytes % (Manual) Eosinophils % (Manual) Seg Neutrophils # Seg Neutrophils # Man Lymphocytes # (Manual) Eosinophils # (Manual) PT Activated Coag Time D-Dimer Heparin Anti-Xa Level ABG pH ABG pO2 ABG HCO3 ABG O2 Saturation ABG Base Excess ABG Hemoglobin 9.3 L Oxyhemoglobin Sodium Potassium Chloride Carbon Dioxide BUN Creatinine Glucose POC Glucose 251 H 203 H Lactic Acid Calcium Phosphorus Magnesium Ferritin Direct Bilirubin AST ALT Alkaline Phosphatase Lactate Dehydrogenase Total Creatine Kinase CK-MB (CK-2) CK-MB (CK-2) Rel Index Troponin T C-Reactive Protein Total Protein Albumin Triglycerides Ur Specific [place] Urine Blood Urine WBC (Auto) Urine Creatinine Digoxin Coronavirus (PCR) 05/02/22 05/02/22 05/02/22 04:47 04:59 04:59 WBC 17.9 H RBC 3.06 L Hgb 8.6 L Hct 26.7 L MCHC RDW 15.5 H Plt Count 597 H Lymph % (Auto) [place] % (Auto) Eos % (Auto) Lymph # (Auto) [place] # (Auto) Eos # (Auto) Seg Neutrophils % Seg Neuts % (Manual) Lymphocytes % (Manual) Eosinophils % (Manual) Seg Neutrophils # Seg Neutrophils # Man Lymphocytes # (Manual) Eosinophils # (Manual) PT Activated Coag Time D-Dimer Heparin Anti-Xa Level ABG pH ABG pO2 ABG HCO3 ABG O2 Saturation ABG Base Excess ABG Hemoglobin Oxyhemoglobin Sodium 147 H Potassium Chloride 111.5 H Carbon Dioxide BUN 36 H Creatinine Glucose 136 H POC Glucose 120 H Lactic Acid Calcium 8.0 L Phosphorus Magnesium Ferritin Direct Bilirubin AST 73 H ALT 90 H Alkaline Phosphatase 171 H Lactate Dehydrogenase Total Creatine Kinase CK-MB (CK-2) CK-MB (CK-2) Rel Index Troponin T C-Reactive Protein Total Protein Albumin 2.3 L Triglycerides Ur Specific [place] Urine Blood Urine WBC (Auto) Urine Creatinine Digoxin Coronavirus (PCR) 05/02/22 05/02/22 05/02/22 11:59 16:29 22:10 WBC RBC Hgb Hct MCHC RDW Plt Count Lymph % (Auto) [place] % (Auto) Eos % (Auto) Lymph # (Auto) [place] # (Auto) Eos # (Auto) Seg Neutrophils % Seg Neuts % (Manual) Lymphocytes % (Manual) Eosinophils % (Manual) Seg Neutrophils # Seg Neutrophils # Man Lymphocytes # (Manual) Eosinophils # (Manual) PT Activated Coag Time D-Dimer Heparin Anti-Xa Level ABG pH ABG pO2 ABG HCO3 ABG O2 Saturation ABG Base Excess ABG Hemoglobin Oxyhemoglobin Sodium Potassium Chloride Carbon Dioxide BUN Creatinine Glucose POC Glucose 212 H 193 H 147 H Lactic Acid Calcium Phosphorus Magnesium Ferritin Direct Bilirubin AST ALT Alkaline Phosphatase Lactate Dehydrogenase Total Creatine Kinase CK-MB (CK-2) CK-MB (CK-2) Rel Index Troponin T C-Reactive Protein Total Protein Albumin Triglycerides Ur Specific [place] Urine Blood Urine WBC (Auto) Urine Creatinine Digoxin Coronavirus (PCR) 05/02/22 05/03/22 05/03/22 23:59 04:46 04:46 WBC RBC Hgb Hct MCHC RDW Plt Count Lymph % (Auto) [place] % (Auto) Eos % (Auto) Lymph # (Auto) [place] # (Auto) Eos # (Auto) Seg Neutrophils % Seg Neuts % (Manual) Lymphocytes % (Manual) Eosinophils % (Manual) Seg Neutrophils # Seg Neutrophils # Man Lymphocytes # (Manual) Eosinophils # (Manual) PT Activated Coag Time D-Dimer Heparin Anti-Xa Level ABG pH ABG pO2 ABG HCO3 ABG O2 Saturation ABG Base Excess ABG Hemoglobin Oxyhemoglobin Sodium Potassium Chloride 108.3 H Carbon Dioxide BUN 34 H Creatinine Glucose 130 H POC Glucose 145 H Lactic Acid Calcium 7.7 L Phosphorus Magnesium Ferritin Direct Bilirubin AST 98 H ALT 111 H Alkaline Phosphatase 147 H Lactate Dehydrogenase Total Creatine Kinase CK-MB (CK-2) CK-MB (CK-2) Rel Index Troponin T C-Reactive Protein Total Protein 6.0 L Albumin 1.9 L Triglycerides Ur Specific [place] Urine Blood Urine WBC (Auto) Urine Creatinine Digoxin 0.7 L Coronavirus (PCR) 05/03/22 05/03/22 05/03/22 04:46 05:23 11:51 WBC 16.4 H RBC 3.08 L Hgb 8.8 L Hct 27.7 L MCHC RDW Plt Count 596 H Lymph % (Auto) [place] % (Auto) Eos % (Auto) Lymph # (Auto) [place] # (Auto) Eos # (Auto) Seg Neutrophils % Seg Neuts % (Manual) Lymphocytes % (Manual) Eosinophils % (Manual) Seg Neutrophils # Seg Neutrophils # Man Lymphocytes # (Manual) Eosinophils # (Manual) PT Activated Coag Time D-Dimer Heparin Anti-Xa Level ABG pH ABG pO2 ABG HCO3 ABG O2 Saturation ABG Base Excess ABG Hemoglobin Oxyhemoglobin Sodium Potassium Chloride Carbon Dioxide BUN Creatinine Glucose POC Glucose 138 H 163 H Lactic Acid Calcium Phosphorus Magnesium Ferritin Direct Bilirubin AST ALT Alkaline Phosphatase Lactate Dehydrogenase Total Creatine Kinase CK-MB (CK-2) CK-MB (CK-2) Rel Index Troponin T C-Reactive Protein Total Protein Albumin Triglycerides Ur Specific [place] Urine Blood Urine WBC (Auto) Urine Creatinine Digoxin Coronavirus (PCR) 05/03/22 05/03/22 05/04/22 17:36 23:57 03:48 WBC RBC Hgb Hct MCHC RDW Plt Count Lymph % (Auto) [place] % (Auto) Eos % (Auto) Lymph # (Auto) [place] # (Auto) Eos # (Auto) Seg Neutrophils % Seg Neuts % (Manual) Lymphocytes % (Manual) Eosinophils % (Manual) Seg Neutrophils # Seg Neutrophils # Man Lymphocytes # (Manual) Eosinophils # (Manual) PT Activated Coag Time D-Dimer Heparin Anti-Xa Level ABG pH ABG pO2 ABG HCO3 ABG O2 Saturation ABG Base Excess ABG Hemoglobin Oxyhemoglobin Sodium Potassium Chloride 110.5 H Carbon Dioxide BUN 30 H Creatinine Glucose 123 H POC Glucose 262 H 173 H Lactic Acid Calcium 8.1 L Phosphorus Magnesium Ferritin Direct Bilirubin AST 88 H ALT 122 H Alkaline Phosphatase 171 H Lactate Dehydrogenase Total Creatine Kinase CK-MB (CK-2) CK-MB (CK-2) Rel Index Troponin T C-Reactive Protein Total Protein Albumin 2.2 L Triglycerides Ur Specific [place] Urine Blood Urine WBC (Auto) Urine Creatinine Digoxin Coronavirus (PCR) 05/04/22 05/04/22 05/04/22 05:03 11:26 16:32 WBC RBC Hgb Hct MCHC RDW Plt Count Lymph % (Auto) [place] % (Auto) Eos % (Auto) Lymph # (Auto) [place] # (Auto) Eos # (Auto) Seg Neutrophils % Seg Neuts % (Manual) Lymphocytes % (Manual) Eosinophils % (Manual) Seg Neutrophils # Seg Neutrophils # Man Lymphocytes # (Manual) Eosinophils # (Manual) PT Activated Coag Time D-Dimer Heparin Anti-Xa Level ABG pH ABG pO2 ABG HCO3 ABG O2 Saturation ABG Base Excess ABG Hemoglobin Oxyhemoglobin Sodium Potassium Chloride Carbon Dioxide BUN Creatinine Glucose POC Glucose 117 H 158 H 300 H Lactic Acid Calcium Phosphorus Magnesium Ferritin Direct Bilirubin AST ALT Alkaline Phosphatase Lactate Dehydrogenase Total Creatine Kinase CK-MB (CK-2) CK-MB (CK-2) Rel Index Troponin T C-Reactive Protein Total Protein Albumin Triglycerides Ur Specific [place] Urine Blood Urine WBC (Auto) Urine Creatinine Digoxin Coronavirus (PCR) 05/04/22 05/05/22 05/05/22 21:30 03:54 03:54 WBC 16.2 H RBC 3.54 L Hgb 10.1 L Hct 32.2 L MCHC 31 L RDW 15.3 H Plt Count 644 H Lymph % (Auto) [place] % (Auto) Eos % (Auto) Lymph # (Auto) [place] # (Auto) Eos # (Auto) Seg Neutrophils % Seg Neuts % (Manual) Lymphocytes % (Manual) Eosinophils % (Manual) Seg Neutrophils # Seg Neutrophils # Man Lymphocytes # (Manual) Eosinophils # (Manual) PT Activated Coag Time D-Dimer Heparin Anti-Xa Level ABG pH ABG pO2 ABG HCO3 ABG O2 Saturation ABG Base Excess ABG Hemoglobin Oxyhemoglobin Sodium Potassium Chloride Carbon Dioxide BUN Creatinine Glucose POC Glucose 184 H Lactic Acid Calcium Phosphorus Magnesium Ferritin Direct Bilirubin AST ALT Alkaline Phosphatase Lactate Dehydrogenase Total Creatine Kinase CK-MB (CK-2) CK-MB (CK-2) Rel Index Troponin T C-Reactive Protein Total Protein Albumin Triglycerides Ur Specific [place] Urine Blood Urine WBC (Auto) Urine Creatinine Digoxin 0.7 L Coronavirus (PCR) 05/05/22 05/05/22 05/05/22 03:54 03:54 03:54 WBC RBC Hgb Hct MCHC RDW Plt Count Lymph % (Auto) [place] % (Auto) Eos % (Auto) Lymph # (Auto) [place] # (Auto) Eos # (Auto) Seg Neutrophils % Seg Neuts % (Manual) Lymphocytes % (Manual) Eosinophils % (Manual) Seg Neutrophils # Seg Neutrophils # Man Lymphocytes # (Manual) Eosinophils # (Manual) PT Activated Coag Time D-Dimer 1411.79 H Heparin Anti-Xa Level ABG pH ABG pO2 ABG HCO3 ABG O2 Saturation ABG Base Excess ABG Hemoglobin Oxyhemoglobin Sodium Potassium Chloride 107.5 H Carbon Dioxide BUN 26 H Creatinine Glucose 134 H POC Glucose Lactic Acid Calcium 8.2 L Phosphorus Magnesium Ferritin 416.7 H Direct Bilirubin AST 51 H ALT 107 H Alkaline Phosphatase 170 H Lactate Dehydrogenase 340 H Total Creatine Kinase CK-MB (CK-2) CK-MB (CK-2) Rel Index Troponin T C-Reactive Protein 2.70 H Total Protein Albumin 2.9 L Triglycerides Ur Specific [place] Urine Blood Urine WBC (Auto) Urine Creatinine Digoxin Coronavirus (PCR) Chest x-ray: pending Allied health notes reviewed: nursing
--- NOTE | 2022-05-05 12:04 | Progress Note ---
Assessment and Plan - Patient Problems (1) Cardiac arrest Current Visit: Yes Status: Acute Plan to address problem: Patient presented with out of hospital cardiopulmonary arrest. Echocardiogram showed a four-chamber dilated cardiomyopathy with left ventricular ejection fraction 15 to 20% of uncertain chronicity. A persistent atrial fibrillation since admission, currently managed with rate control and oral anticoagulation. Cardiac catheterization showed no significant obstructive coronary lesions, consistent with nonischemic cardiomyopathy. Patient has had an intercurrent COVID-19 infection, and is still being managed in the ICU. He has been recommended for predischarge ICD for secondary prevention, and may need transfer to a [place] facility for this procedure. Subjective Date of service: 05/05/22 Principal diagnosis: Cardiac arrest, respiratory failure, sepsis Interval history: The patient was extubated several days ago, breathing comfortably on facemask O2. Appears lethargic. On awake overnight monitor, there is atrial fibrillation with a well-controlled ventricular rate in the 70s to 90s. Objective Vital Signs Temp Pulse Pulse Resp BP Pulse Ox 05/05/22 11:32 98.2 F 05/05/22 11:00 69 28 H 162/89 97 05/05/22 10:00 87 28 H 202/174 98 05/05/22 09:45 99 05/05/22 09:20 77 170/89 05/05/22 09:00 87 19 169/98 97 05/05/22 08:00 73 87 26 H 146/71 96 05/05/22 07:12 97.7 F 05/05/22 07:00 81 31 H 140/86 100 05/05/22 06:00 70 27 H 140/86 99 05/05/22 05:00 78 14 130/94 98 05/05/22 04:38 98.4 F 05/05/22 04:27 98 05/05/22 04:00 71 69 17 117/89 99 05/05/22 03:00 63 25 H 141/80 97 05/05/22 02:01 64 21 136/83 99 05/05/22 01:01 53 L 23 120/59 100 05/05/22 00:43 62 24 120/64 100 05/05/22 00:03 60 24 120/64 100 05/05/22 00:01 55 L 22 120/64 100 05/05/22 00:00 56 L 65 22 100 05/04/22 23:51 63 25 H 165/87 100 05/04/22 23:39 97.6 F 05/04/22 23:00 64 28 H 165/87 99 05/04/22 22:00 67 28 H 165/87 99 05/04/22 21:39 73 139/83 05/04/22 21:00 54 L 22 139/83 99 05/04/22 20:10 62 25 H 139/83 100 05/04/22 20:01 60 22 161/56 100 05/04/22 19:53 73 05/04/22 19:49 73 25 H 97 05/04/22 19:48 98.3 F 05/04/22 19:01 57 L 25 H 145/78 100 05/04/22 18:01 85 34 H 165/94 05/04/22 17:11 87 05/04/22 17:01 94 H 27 H 158/93 99 05/04/22 16:01 82 24 152/99 99 05/04/22 16:00 99.2 F 89 76 17 98 05/04/22 15:01 79 17 202/155 95 05/04/22 14:01 94 H 17 146/77 98 05/04/22 13:01 78 28 H 146/77 98 05/04/22 12:41 58 L 05/04/22 12:01 73 32 H 146/77 93 05/04/22 12:00 76 76 30 H 94 05/04/22 11:59 99.0 F - Physical Examination General: No Apparent Distress HEENT: Positive: EOMI Neck: Positive: neck supple Cardiac: Positive: irregularly irregular Lungs: Positive: Decreased Breath Sounds Neuro: Positive: Grossly Intact, Other (Generalized lethargy) Abdomen: Positive: Soft Skin: Positive: Rash (On the left hand which is dressed) Extremities: Absent: edema - Labs and Meds Cardiac Enzymes 05/05/22 Range/Units 03:54 AST 51 H (5-40) units/L Lactate Dehydrogenase 340 H (91-180) units/L CBC 05/05/22 Range/Units 03:54 WBC 16.2 H (4.5-11.0) K/mm3 RBC 3.54 L (3.65-5.03) M/mm3 Hgb 10.1 L (11.8-15.2) gm/dl Hct 32.2 L (35.5-45.6) % Plt Count 644 H (140-440) K/mm3 Comprehensive Metabolic Panel 05/05/22 Range/Units 03:54 Sodium 143 (137-145) mmol/L Potassium 4.5 (3.6-5.0) mmol/L Chloride 107.5 H (98-107) mmol/L Carbon Dioxide 25 (22-30) mmol/L BUN 26 H (9-20) mg/dL Creatinine 1.0 (0.8-1.3) mg/dL Glucose 134 H (75-100) mg/dL Calcium 8.2 L (8.4-10.2) mg/dL AST 51 H (5-40) units/L ALT 107 H (7-56) units/L Alkaline Phosphatase 170 H (35-129) units/L Total Protein 6.8 (6.3-8.2) g/dL Albumin 2.9 L (3.9-5) g/dL - Allied health notes Allied health notes reviewed: nursing
[2022-05-05] MEDS: FAMOTIDINE 20 MG/2 ML INJ IV SCH ×2 (12:36→21:05)
[2022-05-05] MEDS: QUEtiapine 25 MG TAB FEEDTUBE SCH (13:39)
--- NOTE | 2022-05-05 13:44 | Vascular Lab Report ---
DUPLEX DOPPLER LOWER EXTREMITY VEINS, BILATERAL INDICATION: swelling. TECHNIQUE: Duplex doppler imaging was performed through the veins of both lower extremities using ve nous compression and other maneuvers. COMPARISON: 04/20/2022. FINDINGS: Right Common femoral vein: Negative. Right Superficial femoral vein: Negative. Right Popliteal vein: Negative. Right Calf veins: Negative. Left Common femoral vein: Negative. Left Superficial femoral vein: Negative. Left Popliteal vein: Negative. Left Calf veins: Negative. Additional findings: None. IMPRESSION: No sonographic evidence for DVT in either lower extremity. Signer Name: Robin Agarwal Jr, MD Signed: 05/05/2022 1:39 PM Workstation Name: [id number]
[2022-05-05] MEDS: DIGOXIN 0.5 MG/2 ML INJ IV SCH (16:49)
--- NOTE | 2022-05-05 17:08 | Progress Note ---
Assessment and Plan Cultures: 04/17/2022 blood culture: No growth 04/17/2022 tracheal aspirate culture: Usual respiratory daina 04/18/2022 urine culture: No growth 04/26/2022 blood culture: No growth 04/26/2022 urine culture: No growth 04/28/2022 sputum culture: In process 04/28/2022 urine culture: No growth 04/29/2022 COVID-19 PCR: Positive A/P: 62-year-old male with obesity, hypertension, diabetes, atrial fibrillation was admitted to the hospital on 04/17/2022 with out of hospital cardiac arrest/V. fib arrest with ROSC. He was severely acidotic, placed on pressors, intubated, on mechanical ventilation: #Severe sepsis: Ruled out bacteremia, catheter associated UTI so far. COVID-19 positive. #COVID-19: #S/p [id number] cardiac arrest/V. fib arrest, cardiogenic shock, non- ischemic cardiomyopathy #VINCENT: Renally adjust antibiotics. Creatinine gradually better. #Aspiration pneumonia #Acute hypoxic respiratory failure: On mechanical ventilation. #Acute urinary retention: Has Dunbar catheter in place. #Elevated LFTs: RUQ ultrasound showed fatty liver. Recs: -continue steroids for COVID-19 -Completed Remdesivir -given fevers and possibility of bacterial infection, not a candidate for Actemra -Continue empiric IV cefepime. Plan 8 days. -Stop vancomycin Jalil Velazquez MD [facility] O: [phone] F: [phone] Subjective Date of service: 05/05/22 Principal diagnosis: AHRF; AMS; Pneumonia; Shock; DM II; Severe Metabolic Acidosis Interval history: Afebrile, white count remains elevated at 16.2. Objective - Exam Narrative Exam: Physical Exam: Constitutional: intubated, on the vent Head, Ears, Nose: Normocephalic, atraumatic. External ears, nose normal Eyes: Conjunctivae/corneas clear. No icterus. No ptosis. Neck: intubated Oral: intubated Cardiovascular: S1, S2 + Respiratory: AE fair bilaterally and equal GI: Soft, bowel sounds + Musculoskeletal: No pedal edema, no cyanosis. Skin: No rash or abscess Hem/Lymphatic: No palpable cervical or supraclavicular nodes. No lymphangitis Psych: no agitation Neurological: intubated, on the vent, exam limited - Constitutional Vitals: Vital Signs Temp Pulse Resp BP Pulse Ox 98.4 F 66 22 145/70 97 05/05/22 16:00 05/05/22 17:00 05/05/22 17:00 05/05/22 17:00 05/05/22 17:00 Temperature -Last 24 Hours Temperature 98.4 F Temperature 98.2 F Temperature 97.7 F Temperature 98.4 F Temperature 97.6 F Temperature 98.3 F - Labs CBC & Chem 7: 05/05/22 03:54 05/05/22 03:54 Labs: Abnormal lab results 05/04/22 05/04/22 05/04/22 Range/Units 11:26 16:32 21:30 WBC (4.5-11.0) K/mm3 RBC (3.65-5.03) M/mm3 Hgb (11.8-15.2) gm/dl Hct (35.5-45.6) % MCHC (32-34) % RDW (13.2-15.2) % Plt Count (140-440) K/mm3 D-Dimer (0-234) ng/mlDDU Chloride (98-107) mmol/L BUN (9-20) mg/dL Glucose (75-100) mg/dL POC Glucose 158 H 300 H 184 H (70-105) mg/dL Calcium (8.4-10.2) mg/dL Ferritin (30.0-300.0) ng/mL AST (5-40) units/L ALT (7-56) units/L Alkaline Phosphatase (35-129) units/L Lactate Dehydrogenase (91-180) units/L C-Reactive Protein (0.00-1.30) mg/dL Albumin (3.9-5) g/dL Digoxin (0.9-2.0) ng/mL SARS-CoV-2 (PCR) (Negative) 05/05/22 05/05/22 05/05/22 Range/Units 03:54 03:54 03:54 WBC 16.2 H (4.5-11.0) K/mm3 RBC 3.54 L (3.65-5.03) M/mm3 Hgb 10.1 L (11.8-15.2) gm/dl Hct 32.2 L (35.5-45.6) % MCHC 31 L (32-34) % RDW 15.3 H (13.2-15.2) % Plt Count 644 H (140-440) K/mm3 D-Dimer (0-234) ng/mlDDU Chloride 107.5 H (98-107) mmol/L BUN 26 H (9-20) mg/dL Glucose 134 H (75-100) mg/dL POC Glucose (70-105) mg/dL Calcium 8.2 L (8.4-10.2) mg/dL Ferritin (30.0-300.0) ng/mL AST 51 H (5-40) units/L ALT 107 H (7-56) units/L Alkaline Phosphatase 170 H (35-129) units/L Lactate Dehydrogenase 340 H (91-180) units/L C-Reactive Protein 2.70 H (0.00-1.30) mg/dL Albumin 2.9 L (3.9-5) g/dL Digoxin 0.7 L (0.9-2.0) ng/mL SARS-CoV-2 (PCR) (Negative) 05/05/22 05/05/22 05/05/22 Range/Units 03:54 03:54 15:30 WBC (4.5-11.0) K/mm3 RBC (3.65-5.03) M/mm3 Hgb (11.8-15.2) gm/dl Hct (35.5-45.6) % MCHC (32-34) % RDW (13.2-15.2) % Plt Count (140-440) K/mm3 D-Dimer 1411.79 H (0-234) ng/mlDDU Chloride (98-107) mmol/L BUN (9-20) mg/dL Glucose (75-100) mg/dL POC Glucose (70-105) mg/dL Calcium (8.4-10.2) mg/dL Ferritin 416.7 H (30.0-300.0) ng/mL AST (5-40) units/L ALT (7-56) units/L Alkaline Phosphatase (35-129) units/L Lactate Dehydrogenase (91-180) units/L C-Reactive Protein (0.00-1.30) mg/dL Albumin (3.9-5) g/dL Digoxin (0.9-2.0) ng/mL SARS-CoV-2 (PCR) Positive A (Negative)
[2022-05-05] MEDS: DOXAZOSIN 1 MG TAB PO SCH (21:05)
[2022-05-05] MEDS: INSULIN GLARGINE 100 UNITS/ML SUB-Q SCH (21:06)
[2022-05-05] MEDS ORDERED: QUEtiapine 25 MG TAB FEEDTUBE SCH (22:00)
[2022-05-06 04:47] LABS: Hematocrit 31.5 % (35.5-45.6); Hemoglobin 9.9 gm/dl (11.8-15.2); Mean Corpuscular HGB Conc 31 % (32-34); Mean Corpuscular Volume 90 fl (84-94); Platelet Count 648 K/mm3 (140-440); Red Blood Count 3.51 M/mm3 (3.65-5.03); Red Cell Distribution Width 15.4 % (13.2-15.2)
[2022-05-06 05:02] LABS: BUN/Creatinine Ratio 28; Blood Urea Nitrogen 25 mg/dL (9-20); Hemolysis Index 19
[2022-05-06] MEDS: INSULIN LISPRO 100 UNIT/ML SUB-Q SCH ×3 (08:35→16:42)
[2022-05-06] MEDS: dexAMETHasone 4 MG/ML VIAL IV SCH (09:05)
[2022-05-06] MEDS: FUROSEMIDE 20 MG/2 ML INJ IV SCH (09:05)
[2022-05-06] MEDS: FAMOTIDINE 20 MG/2 ML INJ IV SCH (09:05)
[2022-05-06] MEDS: ENOXAPARIN 120 MG/0.8 ML INJ SUB-Q SCH (09:05)
[2022-05-06] MEDS: SENNOSIDES/DOCUSATE SODIUM 8.6/50 MG TAB PO SCH (09:06)
[2022-05-06] MEDS: ZINC SULFATE 220 MG CAP PO SCH (09:06)
[2022-05-06] MEDS: DOCUSATE SODIUM 100 MG/10 ML ORAL LIQD PO SCH (09:06)
[2022-05-06] MEDS: QUEtiapine 25 MG TAB FEEDTUBE SCH (09:06)
[2022-05-06] MEDS: ASCORBIC ACID 500 MG TAB PO SCH (09:06)
[2022-05-06] MEDS: ASPIRIN 81 MG TAB CHEW PO SCH (09:06)
[2022-05-06] MEDS: METOPROLOL TARTRATE 25 MG TAB PO SCH (09:06)
[2022-05-06] MEDS ORDERED: hydrALAZINE 20 MG/1 ML INJ IV PRN ×2 (11:00→14:30)
--- NOTE | 2022-05-06 11:10 | Progress Note ---
Assessment and Plan 1. Acute kidney injury: Vasomotor VINCENT in the setting of shock. IV contrast on 04/17. Renal US negative. Monitor renal function. Creatinine level is better. Avoid nephrotoxic agents. Meds dosage based on GFR. 2. FEN: Hypernatremia, improved, monitor. Anion-gap metabolic acidosis, improved, monitor. Replete lytes as needed. Monitor lytes and volume status. 3. S/p V.fib Cardiac arrest, POA: Followed by Cards. Monitor. 4. Shock: Currently off pressors. Monitor. 5. A.fib: On Digoxin. Metoprolol. Followed by Cards. Monitor. 6. Acute Hypoxemic Respiratory Failure: Bilateral Pneumonia- Probable Aspiration. CTA negative for PE, reveals bilateral airspace disease, greater in the Upper lobes. Intubated in the field during code on 04/17. Self extubated and Re-intubated 04/28. S/p extubated. Plan to intubate due to stridor. Monitor. 7. Elevated ALT & AST: Monitor. 8. Acute metabolic encephalopathy, POA: Improving. Monitor. 9. Rhabdomyolysis: Improved. Subjective: Patient was seen and examined at the bedside. Examination: General appearance: well-developed, appears stated age, obese HEENT: atraumatic, no icterus, pupils equal Neck: trachea midline Respiratory: wheezing / stridor noted Heart: S1S2, no murmur Abdomen: soft, bowel sounds heard, NT Integumentary: no obvious rash Neurologic: somnolent, moving extremities Ext: trace edema Subjective Date of service: 05/06/22 Principal diagnosis: AHRF; AMS; Pneumonia; Shock; DM II; Severe Metabolic Acidosis Objective - Vital Signs Vital signs: Vital Signs - 12hr 05/05/22 05/05/22 05/05/22 23:33 23:34 23:46 Temperature 98.6 F Pulse Rate 68 Pulse Rate [ 61 From Monitor] Respiratory 27 H Rate Blood Pressure O2 Sat by Pulse 100 Oximetry 05/06/22 05/06/22 05/06/22 00:00 00:41 01:00 Temperature Pulse Rate 61 60 65 Pulse Rate [ From Monitor] Respiratory 27 H 28 H 27 H Rate Blood Pressure 149/80 149/80 149/80 O2 Sat by Pulse 99 100 100 Oximetry 05/06/22 05/06/22 05/06/22 02:00 03:00 04:00 Temperature 98.3 F Pulse Rate 60 68 60 Pulse Rate [ 68 From Monitor] Respiratory 23 27 H 24 Rate Blood Pressure 129/68 148/85 132/91 O2 Sat by Pulse 99 100 100 Oximetry 05/06/22 05/06/22 05/06/22 05:00 06:00 07:00 Temperature Pulse Rate 67 68 80 Pulse Rate [ From Monitor] Respiratory 25 H 31 H 32 H Rate Blood Pressure 148/84 141/79 144/84 O2 Sat by Pulse 100 97 97 Oximetry 05/06/22 05/06/22 05/06/22 08:00 08:28 09:00 Temperature 99 F Pulse Rate 75 94 H Pulse Rate [ 85 From Monitor] Respiratory 30 H 33 H Rate Blood Pressure 189/124 187/106 O2 Sat by Pulse 97 98 97 Oximetry 05/06/22 05/06/22 09:06 10:00 Temperature Pulse Rate 87 78 Pulse Rate [ From Monitor] Respiratory 33 H Rate Blood Pressure 186/87 177/98 O2 Sat by Pulse 96 Oximetry - Lab 05/06/22 04:25 05/06/22 04:25 Most recent lab results ABG pH 7.442 pH Units (7.350-7.450) 05/02/22 04:45 ABG pCO2 37.8 mm Hg 05/02/22 04:45 ABG pO2 83.1 mm Hg (80.0-90.0) 05/02/22 04:45 ABG HCO3 25.2 mmol/L (20.0-26.0) 05/02/22 04:45 ABG O2 Saturation 97.0 % (95.0-99.0) 05/02/22 04:45 Calcium 8.0 mg/dL (8.4-10.2) L 05/06/22 04:25 Phosphorus 3.20 mg/dL (2.5-4.5) 05/03/22 04:46 Magnesium 2.10 mg/dL (1.7-2.3) 05/03/22 04:46 Urine Creatinine 90.9 mg/dL (0.1-20.0) H 04/19/22 02:08 Urine Sodium 54 mmol/L 04/19/22 02:08 Medications & Allergies - Medications Allergies/Adverse Reactions: Allergies lisinopril Allergy (Verified 04/27/22 06:02) Angioedema Home Medications: Home Medications Medication Instructions Recorded Confirmed Last Taken Type AtorvaSTATin 40 mg PO QHS 04/22/22 04/22/22 Unknown History Humulin N 22 units SQ QHS 04/22/22 04/22/22 Unknown History amLODIPine 10 mg PO QAM 04/22/22 04/22/22 Unknown History glipiZIDE 20 mg PO BID 04/22/22 04/22/22 Unknown History metFORMIN 850 mg PO TID 04/22/22 04/22/22 Unknown History Active Medications: Generic Name Dose Route Start Last Admin Trade Name Freq PRN Reason Stop Dose Admin Acetaminophen 650 mg 04/17/22 19:48 04/28/22 21:38 Acetaminophen 325 Mg Tab PO 650 mg Q6H PRN Administration Pain MILD(1-3)/Fever >100.5/CHE Albuterol 2 puff 05/05/22 09:00 Albuterol 8.5 Gm Mdi Inhalation IH Q4HRT PRN SHORTNESS OF BREATH Ascorbic Acid 500 mg 05/04/22 22:00 05/06/22 09:06 Ascorbic Acid 500 Mg Tab PO 05/10/22 10:01 500 mg BID FLACO Administration Aspirin 81 mg 05/05/22 10:00 05/06/22 09:06 Aspirin 81 Mg Tab Chew PO 81 mg QDAY FLACO Administration Atorvastatin Calcium 20 mg 05/04/22 22:00 05/05/22 21:04 Atorvastatin 20 Mg Tab PO 20 mg QHS FLACO Administration Dexamethasone 8 mg 04/30/22 10:00 05/06/22 09:05 Dexamethasone 4 Mg/Ml Vial IV 05/09/22 10:01 8 mg DAILY FLACO Administration Dextrose 0 ml 04/17/22 23:46 Dextrose 50% In Water (25gm) 50 Ml Syringe IV Q30MIN PRN Hypoglycemia Protocol Digoxin 0.125 mg 05/05/22 17:00 05/05/22 16:49 Digoxin 0.5 Mg/2 Ml Inj IV Not Given DAILY@1700 FLACO Docusate Sodium 100 mg 05/04/22 22:00 05/06/22 09:06 Docusate Sodium 100 Mg/10 Ml Oral Liqd PO 100 mg BID FLACO Administration Doxazosin Mesylate 1 mg 05/04/22 22:00 05/05/22 21:05 Doxazosin 1 Mg Tab PO 1 mg QHS FLACO Administration Enoxaparin Sodium 120 mg 05/02/22 10:00 05/06/22 09:05 Enoxaparin 120 Mg/0.8 Ml Inj SUB-Q 120 mg Q12HR FLACO Administration Protocol Famotidine 20 mg 05/05/22 13:00 05/06/22 09:05 Famotidine 20 Mg/2 Ml Inj IV 20 mg BID FLACO Administration Furosemide 20 mg 05/05/22 22:00 05/06/22 09:05 Furosemide 20 Mg/2 Ml Inj IV 20 mg BID FLACO Administration Hydralazine HCl 10 mg 05/06/22 11:00 Hydralazine 20 Mg/1 Ml Inj IV Q4H PRN Hypertension Hydrophilic Ointment 1 applic 04/18/22 06:02 04/26/22 20:29 Lip Therapy Vaseline TP 1 applic Q2HR PRN Administration Dry Lips Insulin Glargine 35 units 05/03/22 22:00 05/05/22 21:06 Insulin Glargine 100 Units/Ml SUB-Q 35 units QHS FLACO Administration Insulin Human Lispro 0 unit 05/04/22 11:30 05/06/22 08:35 Insulin Lispro 100 Unit/Ml SUB-Q Not Given ACHS [facility] Protocol Metoprolol Tartrate 25 mg 05/05/22 10:00 05/06/22 09:06 Metoprolol Tartrate 25 Mg Tab PO 25 mg BID FLACO Administration Multi-Ingred Cream/Lotion/Oil/Oint 1 applic 04/18/22 06:02 Mineral Oil/Petrolatum, White Ophth Oint 3.5 Gm OU Q4HR PRN Dry Eye(s) Oxycodone/Acetaminophen 1 tab 05/04/22 10:00 Oxycodone /Acetaminophen 5-325mg Tab PO Q6H PRN Pain, Moderate (4-6) Quetiapine Fumarate 25 mg 05/05/22 14:00 05/06/22 09:06 Quetiapine 25 Mg Tab FEEDTUBE 25 mg DAILY FLACO Administration Quetiapine Fumarate 50 mg 05/05/22 22:00 05/05/22 21:05 Quetiapine 25 Mg Tab FEEDTUBE 50 mg QHS FLACO Administration Senna/Docusate Sodium 2 tab 05/04/22 10:00 05/06/22 09:06 Sennosides/Docusate Sodium 8.6/50 Mg Tab PO 2 tab BID FLACO Administration Sodium Chloride 10 ml 04/17/22 22:00 05/06/22 09:05 Sodium Chloride 0.9% 10 Ml Flush Syringe IV 10 ml BID FLACO Administration Sodium Chloride 10 ml 04/17/22 19:48 Sodium Chloride 0.9% 10 Ml Flush Syringe IV PRN PRN LINE FLUSH Zinc Sulfate 220 mg 04/30/22 22:00 05/06/22 09:06 Zinc Sulfate 220 Mg Cap PO 05/10/22 10:01 220 mg BID FLACO Administration
[2022-05-06] MEDS ORDERED: EPINEPHrine RACEMIC 2.25% 0.5ML NEBU IH NR (11:21)
[2022-05-06] MEDS ORDERED: SUCCINYLCHOLINE CHLORIDE 200 MG/10 ML INJ MDV ONE ×2 (11:30→11:35)
[2022-05-06] MEDS ORDERED: LIDOCAINE MPF (2%) 20 MG/1 ML VIAL 5 ML ONE (11:30)
[2022-05-06] MEDS ORDERED: propofoL 200 MG/20 ML VIAL IV ONE (11:31)
[2022-05-06] MEDS ORDERED: ROCURONIUM 50 MG/5 ML INJ IV ONE (11:34)
[2022-05-06] MEDS ORDERED: ETOMIDATE 20 MG/10 ML INJ IV ONE (11:35)
[2022-05-06] MEDS ORDERED: fentaNYL 100 MCG/2 ML INJ IV PRN (11:52)
--- NOTE | 2022-05-06 11:54 | Progress Note ---
Subjective Date of service: 05/06/22 Principal diagnosis: AHRF; AMS; Pneumonia; Shock; DM II; Severe Metabolic Acidosis Interval history: Intubation in ICU 11:35-11.:47 Patient is awake, alert. VS are stable. COVID+, On BiPAP, pressure support. Developing stridor. Aske to reintubate by Dr. Rutledge. Proper PPE, IV Propofol 200 mg Lidocaine 50 mg Succinylcholine 100 mg Intubated with Glidescope MAC 3 blade 7.5mm ETT Position of ETT confirmed by changing color on CO2 sensor and bilateral auscultation Transfer of care to RT, RN and ATTENDANT ARCADE No complications Objective - Constitutional Vitals: Vital Signs - 12hr 05/06/22 05/06/22 05/06/22 00:00 00:41 01:00 Temperature Pulse Rate 61 60 65 Pulse Rate [ From Monitor] Respiratory 27 H 28 H 27 H Rate Blood Pressure 149/80 149/80 149/80 O2 Sat by Pulse 99 100 100 Oximetry 05/06/22 05/06/22 05/06/22 02:00 03:00 04:00 Temperature 98.3 F Pulse Rate 60 68 60 Pulse Rate [ 68 From Monitor] Respiratory 23 27 H 24 Rate Blood Pressure 129/68 148/85 132/91 O2 Sat by Pulse 99 100 100 Oximetry 05/06/22 05/06/22 05/06/22 05:00 06:00 07:00 Temperature Pulse Rate 67 68 80 Pulse Rate [ From Monitor] Respiratory 25 H 31 H 32 H Rate Blood Pressure 148/84 141/79 144/84 O2 Sat by Pulse 100 97 97 Oximetry 05/06/22 05/06/22 05/06/22 08:00 08:28 09:00 Temperature 99 F Pulse Rate 75 94 H Pulse Rate [ 85 From Monitor] Respiratory 30 H 33 H Rate Blood Pressure 189/124 187/106 O2 Sat by Pulse 97 98 97 Oximetry 05/06/22 05/06/22 05/06/22 09:06 10:00 11:00 Temperature Pulse Rate 87 78 88 Pulse Rate [ From Monitor] Respiratory 33 H 28 H Rate Blood Pressure 186/87 177/98 179/100 O2 Sat by Pulse 96 Oximetry 05/06/22 11:26 Temperature Pulse Rate 80 Pulse Rate [ From Monitor] Respiratory Rate Blood Pressure 180/112 O2 Sat by Pulse Oximetry - Labs CBC & Chem 7: 05/06/22 04:25 05/06/22 04:25 Labs: Abnormal lab results 05/05/22 05/05/22 05/05/22 Range/Units 07:24 11:05 15:30 WBC (4.5-11.0) K/mm3 RBC (3.65-5.03) M/mm3 Hgb (11.8-15.2) gm/dl Hct (35.5-45.6) % MCHC (32-34) % RDW (13.2-15.2) % Plt Count (140-440) K/mm3 Chloride (98-107) mmol/L BUN (9-20) mg/dL POC Glucose 147 H 206 H (70-105) mg/dL Calcium (8.4-10.2) mg/dL SARS-CoV-2 (PCR) Positive A (Negative) 05/05/22 05/05/22 05/05/22 Range/Units 16:35 21:00 23:17 WBC (4.5-11.0) K/mm3 RBC (3.65-5.03) M/mm3 Hgb (11.8-15.2) gm/dl Hct (35.5-45.6) % MCHC (32-34) % RDW (13.2-15.2) % Plt Count (140-440) K/mm3 Chloride (98-107) mmol/L BUN (9-20) mg/dL POC Glucose 168 H 131 H 133 H (70-105) mg/dL Calcium (8.4-10.2) mg/dL SARS-CoV-2 (PCR) (Negative) 05/06/22 05/06/22 Range/Units 04:25 04:25 WBC 14.6 H (4.5-11.0) K/mm3 RBC 3.51 L (3.65-5.03) M/mm3 Hgb 9.9 L (11.8-15.2) gm/dl Hct 31.5 L (35.5-45.6) % MCHC 31 L (32-34) % RDW 15.4 H (13.2-15.2) % Plt Count 648 H (140-440) K/mm3 Chloride 107.4 H (98-107) mmol/L BUN 25 H (9-20) mg/dL POC Glucose (70-105) mg/dL Calcium 8.0 L (8.4-10.2) mg/dL SARS-CoV-2 (PCR) (Negative)
[2022-05-06] MEDS ORDERED: fentaNYL DRIP Premix 2,000 MCG/100 ML BAG IV SCH (12:00)
--- NOTE | 2022-05-06 12:52 | XRay Report ---
CHEST 1 VIEW 05/06/2022 12:32 PM INDICATION / CLINICAL INFORMATION: intubation. COMPARISON: 05/03/2022. FINDINGS: SUPPORT DEVICES: Endotracheal tube and NG tube in satisfactory position. HEART / MEDIASTINUM: No significant abnormality. LUNGS / PLEURA: Residual opacity at the lung bases with mild improvement on the right and mild worsen ing on the left. No pneumothorax. ADDITIONAL FINDINGS: No significant additional findings. IMPRESSION: 1. Satisfactory placement of lines and tubes. 2. Overall, no significant change in the appearance of the chest. Signer Name: Adam Griggs MD Signed: 05/06/2022 12:47 PM Workstation Name: [id number]
--- NOTE | 2022-05-06 13:16 | Progress Note ---
Assessment and Plan Acute hypoxemic respiratory failure Altered mental status Aspiration pneumonia Shock (Cardiogenic +/- Septic) Severe Metabolic Acidosis Morbid Obesity Diabetes type II Hypotension Obesity hypoventilation syndrome - semi electively intubated - appreciate anesthesia help - reached out to [facility] again for transfer as he will need ENT evaluation as well (? Vocal Cord dysfunction) - good diuresis with negative fluid balance and improved BUN/will continue diuresis but 20mg IV daily now - AICD once ok with cardiology - continue digoxin for rhythm control - continue strict I's & O's and target even to slightly negative fluid balance - continue care as below otherwise; - daily SAT's and SBT's as tolerated - prn vasopressors for target MAP > 65mmHg - continue to wean supplemental oxygen for target O2 sat's > 90% acutely - aspiration precautions - continue bronchodilators with pulmonary hygiene per RT - avoid nephrotoxins, renally dose all medications - continue accuchecks with glycemic control per SSI (While critically ill target blood glucose of 140-180 mg/dL; avoid hypoglycemia) - continue to avoid benzodiazepine's, reduce the possibility of delirium - AB's per ID rec's (s/p 5 days empiric CAP therapy with Levaquin) - prn analgesia per pain score - Maintenance of sleep-wake cycle, avoid delirium - continue enteral nutritional support at goal rate as tolerated - G.I. & VTE prophylaxis - PT/OT/ROM exercises - continue mobility protocols for pressure ulcer prophylaxis - Monitor hemodynamics closely - continue other care per attending / other consultants - discharge planning ongoing concurrently COVID SPECIFIC INTERVENTIONS - Remdesivir as per ID/Pulmonary developed protocols (received) - continue systemic steroids for severe COVID-19 infection (Dexamethasone X >/= 10 days) - follow repeat COVID tests results (still positive) - zinc and vitamin C supplementation - Monitor inflammatory markers per facility protocol - ferritin, Ddimer, CRP - therapeutic anticoagulation per system Protocol based on d-dimer and clinical considerations - Continue contact and airborne isolation .... Re-evaluate in am & prn CONDITION: CRITICAL PROGNOSIS: GUARDED CODE STATUS: FULL CODE The high probability of a clinically significant, sudden or life-threatening deterioration of the [respiratory, cardiovascular, renal & neurologic] system(s) required my full and direct attention, intervention and personal management. The aggregate critical care time was [34] minutes without overlap. Time includes spent on; [x] Data Review and interpretation [x] Patient assessment and monitoring of vital signs [x] Documentation [x] Medication orders and management Subjective Date of service: 05/06/22 Principal diagnosis: AHRF; AMS; Pneumonia; Shock; DM II; Severe Metabolic Acidosis Interval history: Patient is seen today for: Acute hypoxemic respiratory failure; AMS; Aspiration pneumonia; Shock (Cardiogenic +/- Septic); DM II; Severe Metabolic Acidosis Seen and examined at bedside; 24hour events reviewed; nursing and respiratory care staff consulted; no adverse overnight events reported to me; resting in bed; developed another episode of severe respiratory distress with mostly stridorous sounds and increased WOB; re-intubated; great urine output; care plan discussed with his and daughter Objective Vital Signs - 12hr 05/06/22 05/06/22 05/06/22 02:00 03:00 04:00 Temperature 98.3 F Pulse Rate 60 68 60 Pulse Rate [ 68 From Monitor] Respiratory 23 27 H 24 Rate Blood Pressure 129/68 148/85 132/91 O2 Sat by Pulse 99 100 100 Oximetry 05/06/22 05/06/22 05/06/22 05:00 06:00 07:00 Temperature Pulse Rate 67 68 80 Pulse Rate [ From Monitor] Respiratory 25 H 31 H 32 H Rate Blood Pressure 148/84 141/79 144/84 O2 Sat by Pulse 100 97 97 Oximetry 05/06/22 05/06/22 05/06/22 08:00 08:28 09:00 Temperature 99 F Pulse Rate 75 94 H Pulse Rate [ 85 From Monitor] Respiratory 30 H 33 H Rate Blood Pressure 189/124 187/106 O2 Sat by Pulse 97 98 97 Oximetry 05/06/22 05/06/22 05/06/22 09:06 10:00 11:00 Temperature Pulse Rate 87 78 88 Pulse Rate [ From Monitor] Respiratory 33 H 28 H Rate Blood Pressure 186/87 177/98 179/100 O2 Sat by Pulse 96 Oximetry 05/06/22 05/06/22 05/06/22 11:26 11:30 11:46 Temperature Pulse Rate 80 87 120 H Pulse Rate [ From Monitor] Respiratory 35 H 21 Rate Blood Pressure 180/112 176/120 93/55 O2 Sat by Pulse 99 100 Oximetry 05/06/22 05/06/22 05/06/22 12:00 12:16 12:30 Temperature 100.9 F H Pulse Rate 54 L 83 99 H Pulse Rate [ 94 H From Monitor] Respiratory 11 L 31 H 30 H Rate Blood Pressure 95/56 148/89 142/99 O2 Sat by Pulse 98 99 97 Oximetry 05/06/22 05/06/22 12:45 13:00 Temperature Pulse Rate 95 H 97 H Pulse Rate [ From Monitor] Respiratory 20 19 Rate Blood Pressure 138/85 133/72 O2 Sat by Pulse 97 96 Oximetry Constitutional: no acute distress, other (elderly obese male without increased respiratory effort at rest on MVS) Eyes: non-icteric ENT: oropharynx moist, other (ETT 24 cm DIANNE) Neck: supple, no lymphadenopathy, no JVD, other (large circumference) Effort: mildly labored Ascultation: Bilateral: clear, diminished breath sounds Percussion: Bilateral: not dull Cardiovascular: regular rate and rhythm, other (No R/M) Gastrointestinal: normoactive bowel sounds, soft, non-tender, non-distended (protuberant), other (condom catheter) Integumentary: rash (erythematous rash over anterior chest wall and upper extremities-improving) Extremities: no cyanosis, no edema, pulses normal, no ischemia or petechiae, edema (bilateral upper extemities) Neurologic: normal mental status, non-focal exam (grossly), pupils equal and round, CN II-XII normal, motor strength normal and Psychiatric: other (sedated) CBC and BMP: 05/06/22 04:25 05/06/22 04:25 ABG, PT/INR, D-dimer: ABG ABG pH 7.442 pH Units (7.350-7.450) 05/02/22 04:45 ABG pCO2 37.8 mm Hg 05/02/22 04:45 ABG pO2 83.1 mm Hg (80.0-90.0) 05/02/22 04:45 ABG O2 Saturation 97.0 % (95.0-99.0) 05/02/22 04:45 PT/INR, D-dimer PT 15.6 Sec. (12.2-14.9) H 04/18/22 Unknown INR 1.08 (0.87-1.13) 04/18/22 Unknown D-Dimer 1411.79 ng/mlDDU (0-234) H 05/05/22 03:54 Abnormal lab findings: Abnormal Labs 04/17/22 04/17/22 04/17/22 19:18 19:55 19:56 WBC RBC Hgb Hct MCHC RDW Plt Count Lymph % (Auto) [place] % (Auto) Eos % (Auto) Lymph # (Auto) [place] # (Auto) Eos # (Auto) Seg Neutrophils % Seg Neuts % (Manual) Lymphocytes % (Manual) Eosinophils % (Manual) Seg Neutrophils # Seg Neutrophils # Man Lymphocytes # (Manual) Eosinophils # (Manual) PT Activated Coag Time D-Dimer Heparin Anti-Xa Level ABG pH 7.120 L* ABG pO2 45.3 L ABG HCO3 18.5 L ABG O2 Saturation 68.3 L ABG Base Excess -11.5 L ABG Hemoglobin Oxyhemoglobin 66.8 L Sodium Potassium Chloride 94.2 L Carbon Dioxide 17 L BUN Creatinine 1.6 H Glucose 315 H POC Glucose 277 H Lactic Acid Calcium Phosphorus Magnesium Ferritin Direct Bilirubin AST 529 H ALT 318 H Alkaline Phosphatase 137 H Lactate Dehydrogenase Total Creatine Kinase 398 H CK-MB (CK-2) 17.9 H CK-MB (CK-2) Rel Index 4.4 H Troponin T 0.205 H* C-Reactive Protein Total Protein Albumin Triglycerides Ur Specific [place] Urine Blood Urine WBC (Auto) Urine Creatinine Digoxin Coronavirus (PCR) SARS-CoV-2 (PCR) 04/17/22 04/17/22 04/17/22 19:58 19:58 21:42 WBC 11.9 H RBC 5.17 H Hgb 15.5 H Hct 48.0 H MCHC RDW Plt Count Lymph % (Auto) [place] % (Auto) Eos % (Auto) Lymph # (Auto) [place] # (Auto) Eos # (Auto) Seg Neutrophils % 71.7 H Seg Neuts % (Manual) Lymphocytes % (Manual) Eosinophils % (Manual) Seg Neutrophils # 8.5 H Seg Neutrophils # Man Lymphocytes # (Manual) Eosinophils # (Manual) PT Activated Coag Time D-Dimer Heparin Anti-Xa Level ABG pH ABG pO2 ABG HCO3 ABG O2 Saturation ABG Base Excess ABG Hemoglobin Oxyhemoglobin Sodium Potassium Chloride 95.0 L Carbon Dioxide 19 L BUN Creatinine 1.5 H Glucose 306 H POC Glucose Lactic Acid Calcium Phosphorus Magnesium Ferritin Direct Bilirubin AST ALT Alkaline Phosphatase Lactate Dehydrogenase Total Creatine Kinase 412 H CK-MB (CK-2) 19.2 H CK-MB (CK-2) Rel Index 4.6 H Troponin T 0.285 H* D C-Reactive Protein Total Protein Albumin Triglycerides Ur Specific [place] Urine Blood Urine WBC (Auto) Urine Creatinine Digoxin Coronavirus (PCR) SARS-CoV-2 (PCR) 04/17/22 04/18/22 04/18/22 21:42 00:40 01:07 WBC RBC Hgb Hct MCHC RDW Plt Count Lymph % (Auto) [place] % (Auto) Eos % (Auto) Lymph # (Auto) [place] # (Auto) Eos # (Auto) Seg Neutrophils % Seg Neuts % (Manual) Lymphocytes % (Manual) Eosinophils % (Manual) Seg Neutrophils # Seg Neutrophils # Man Lymphocytes # (Manual) Eosinophils # (Manual) PT Activated Coag Time D-Dimer Heparin Anti-Xa Level ABG pH ABG pO2 ABG HCO3 ABG O2 Saturation ABG Base Excess ABG Hemoglobin Oxyhemoglobin Sodium Potassium Chloride Carbon Dioxide BUN Creatinine Glucose POC Glucose 320 H Lactic Acid 7.90 H* 7.90 H* Calcium Phosphorus Magnesium Ferritin Direct Bilirubin AST ALT Alkaline Phosphatase Lactate Dehydrogenase Total Creatine Kinase CK-MB (CK-2) CK-MB (CK-2) Rel Index Troponin T C-Reactive Protein Total Protein Albumin Triglycerides Ur Specific [place] Urine Blood Urine WBC (Auto) Urine Creatinine Digoxin Coronavirus (PCR) SARS-CoV-2 (PCR) 04/18/22 04/18/22 04/18/22 01:07 04:00 06:04 WBC RBC Hgb Hct MCHC RDW Plt Count Lymph % (Auto) [place] % (Auto) Eos % (Auto) Lymph # (Auto) [place] # (Auto) Eos # (Auto) Seg Neutrophils % Seg Neuts % (Manual) Lymphocytes % (Manual) Eosinophils % (Manual) Seg Neutrophils # Seg Neutrophils # Man Lymphocytes # (Manual) Eosinophils # (Manual) PT Activated Coag Time D-Dimer Heparin Anti-Xa Level < 0.10 L ABG pH ABG pO2 ABG HCO3 ABG O2 Saturation ABG Base Excess ABG Hemoglobin Oxyhemoglobin Sodium Potassium Chloride Carbon Dioxide BUN Creatinine Glucose POC Glucose 305 H Lactic Acid Calcium Phosphorus Magnesium Ferritin Direct Bilirubin AST ALT Alkaline Phosphatase Lactate Dehydrogenase Total Creatine Kinase 488 H CK-MB (CK-2) 25.3 H CK-MB (CK-2) Rel Index 5.1 H Troponin T 0.665 H* D C-Reactive Protein Total Protein Albumin Triglycerides Ur Specific [place] Urine Blood Urine WBC (Auto) Urine Creatinine Digoxin Coronavirus (PCR) SARS-CoV-2 (PCR) 04/18/22 04/18/22 04/18/22 06:20 11:10 12:48 WBC RBC Hgb Hct MCHC RDW Plt Count Lymph % (Auto) [place] % (Auto) Eos % (Auto) Lymph # (Auto) [place] # (Auto) Eos # (Auto) Seg Neutrophils % Seg Neuts % (Manual) Lymphocytes % (Manual) Eosinophils % (Manual) Seg Neutrophils # Seg Neutrophils # Man Lymphocytes # (Manual) Eosinophils # (Manual) PT Activated Coag Time D-Dimer Heparin Anti-Xa Level < 0.10 L ABG pH 7.119 L* 7.304 L ABG pO2 56.1 L 103.5 H ABG HCO3 18.4 L 14.4 L ABG O2 Saturation 80.7 L ABG Base Excess -11.4 L -10.6 L ABG Hemoglobin 13.5 L Oxyhemoglobin 79.2 L Sodium Potassium Chloride Carbon Dioxide BUN Creatinine Glucose POC Glucose Lactic Acid Calcium Phosphorus Magnesium Ferritin Direct Bilirubin AST ALT Alkaline Phosphatase Lactate Dehydrogenase Total Creatine Kinase CK-MB (CK-2) CK-MB (CK-2) Rel Index Troponin T C-Reactive Protein Total Protein Albumin Triglycerides Ur Specific [place] Urine Blood Urine WBC (Auto) Urine Creatinine Digoxin Coronavirus (PCR) SARS-CoV-2 (PCR) 04/18/22 04/18/22 04/18/22 13:13 16:00 16:00 WBC RBC Hgb Hct MCHC RDW Plt Count Lymph % (Auto) [place] % (Auto) Eos % (Auto) Lymph # (Auto) [place] # (Auto) Eos # (Auto) Seg Neutrophils % Seg Neuts % (Manual) Lymphocytes % (Manual) Eosinophils % (Manual) Seg Neutrophils # Seg Neutrophils # Man Lymphocytes # (Manual) Eosinophils # (Manual) PT Activated Coag Time D-Dimer Heparin Anti-Xa Level ABG pH ABG pO2 ABG HCO3 ABG O2 Saturation ABG Base Excess ABG Hemoglobin Oxyhemoglobin Sodium Potassium Chloride Carbon Dioxide BUN Creatinine Glucose POC Glucose 334 H Lactic Acid 7.00 H* Calcium Phosphorus 5.70 H Magnesium 1.30 L Ferritin Direct Bilirubin AST ALT Alkaline Phosphatase Lactate Dehydrogenase Total Creatine Kinase 969 H CK-MB (CK-2) 55.9 H CK-MB (CK-2) Rel Index 5.7 H Troponin T 1.580 H* D C-Reactive Protein Total Protein Albumin Triglycerides Ur Specific [place] Urine Blood Urine WBC (Auto) Urine Creatinine Digoxin Coronavirus (PCR) SARS-CoV-2 (PCR) 04/18/22 04/18/22 04/18/22 16:00 18:00 18:01 WBC RBC Hgb Hct MCHC RDW Plt Count Lymph % (Auto) [place] % (Auto) Eos % (Auto) Lymph # (Auto) [place] # (Auto) Eos # (Auto) Seg Neutrophils % Seg Neuts % (Manual) Lymphocytes % (Manual) Eosinophils % (Manual) Seg Neutrophils # Seg Neutrophils # Man Lymphocytes # (Manual) Eosinophils # (Manual) PT Activated Coag Time D-Dimer Heparin Anti-Xa Level < 0.10 L ABG pH ABG pO2 ABG HCO3 ABG O2 Saturation ABG Base Excess ABG Hemoglobin Oxyhemoglobin Sodium 136 L Potassium 6.3 H* D Chloride 97.6 L Carbon Dioxide 18 L BUN 34 H Creatinine 3.5 H Glucose 409 H POC Glucose 397 H Lactic Acid Calcium 6.8 L Phosphorus Magnesium Ferritin Direct Bilirubin AST ALT Alkaline Phosphatase Lactate Dehydrogenase Total Creatine Kinase CK-MB (CK-2) CK-MB (CK-2) Rel Index Troponin T C-Reactive Protein Total Protein Albumin Triglycerides Ur Specific [place] Urine Blood Urine WBC (Auto) Urine Creatinine Digoxin Coronavirus (PCR) SARS-CoV-2 (PCR) 04/18/22 04/18/22 04/18/22 19:13 20:58 21:22 WBC RBC Hgb Hct MCHC RDW Plt Count Lymph % (Auto) [place] % (Auto) Eos % (Auto) Lymph # (Auto) [place] # (Auto) Eos # (Auto) Seg Neutrophils % Seg Neuts % (Manual) Lymphocytes % (Manual) Eosinophils % (Manual) Seg Neutrophils # Seg Neutrophils # Man Lymphocytes # (Manual) Eosinophils # (Manual) PT Activated Coag Time D-Dimer Heparin Anti-Xa Level ABG pH 7.502 H ABG pO2 144.5 H ABG HCO3 ABG O2 Saturation ABG Base Excess ABG Hemoglobin 12.5 L Oxyhemoglobin Sodium Potassium Chloride Carbon Dioxide BUN Creatinine Glucose POC Glucose 321 H 307 H Lactic Acid Calcium Phosphorus Magnesium Ferritin Direct Bilirubin AST ALT Alkaline Phosphatase Lactate Dehydrogenase Total Creatine Kinase CK-MB (CK-2) CK-MB (CK-2) Rel Index Troponin T C-Reactive Protein Total Protein Albumin Triglycerides Ur Specific [place] Urine Blood Urine WBC (Auto) Urine Creatinine Digoxin Coronavirus (PCR) SARS-CoV-2 (PCR) 04/18/22 04/18/22 04/18/22 21:30 21:30 Unknown WBC RBC Hgb Hct MCHC RDW Plt Count Lymph % (Auto) [place] % (Auto) Eos % (Auto) Lymph # (Auto) [place] # (Auto) Eos # (Auto) Seg Neutrophils % Seg Neuts % (Manual) 81.0 H Lymphocytes % (Manual) 12.0 L Eosinophils % (Manual) Seg Neutrophils # 9.8 H Seg Neutrophils # Man 8.7 H Lymphocytes # (Manual) Eosinophils # (Manual) PT Activated Coag Time D-Dimer Heparin Anti-Xa Level ABG pH ABG pO2 ABG HCO3 ABG O2 Saturation ABG Base Excess ABG Hemoglobin Oxyhemoglobin Sodium Potassium Chloride 96.6 L Carbon Dioxide BUN 37 H Creatinine 3.6 H Glucose 312 H POC Glucose Lactic Acid 5.50 H* Calcium 7.3 L Phosphorus Magnesium Ferritin Direct Bilirubin AST ALT Alkaline Phosphatase Lactate Dehydrogenase Total Creatine Kinase CK-MB (CK-2) CK-MB (CK-2) Rel Index Troponin T C-Reactive Protein Total Protein Albumin Triglycerides Ur Specific [place] Urine Blood Urine WBC (Auto) Urine Creatinine Digoxin Coronavirus (PCR) SARS-CoV-2 (PCR) 04/18/22 04/18/22 04/19/22 Unknown Unknown 00:35 WBC RBC Hgb Hct MCHC RDW Plt Count Lymph % (Auto) [place] % (Auto) Eos % (Auto) Lymph # (Auto) [place] # (Auto) Eos # (Auto) Seg Neutrophils % Seg Neuts % (Manual) Lymphocytes % (Manual) Eosinophils % (Manual) Seg Neutrophils # Seg Neutrophils # Man Lymphocytes # (Manual) Eosinophils # (Manual) PT 15.6 H Activated Coag Time D-Dimer Heparin Anti-Xa Level ABG pH ABG pO2 ABG HCO3 ABG O2 Saturation ABG Base Excess ABG Hemoglobin Oxyhemoglobin Sodium Potassium Chloride Carbon Dioxide 18 L BUN 26 H Creatinine 2.5 H D Glucose 330 H POC Glucose Lactic Acid Calcium 7.9 L Phosphorus Magnesium Ferritin Direct Bilirubin AST 463 H ALT 249 H Alkaline Phosphatase Lactate Dehydrogenase Total Creatine Kinase CK-MB (CK-2) CK-MB (CK-2) Rel Index Troponin T 2.670 H* D C-Reactive Protein Total Protein Albumin 3.3 L Triglycerides Ur Specific [place] Urine Blood Urine WBC (Auto) Urine Creatinine Digoxin Coronavirus (PCR) SARS-CoV-2 (PCR) 04/19/22 04/19/22 04/19/22 00:39 02:08 02:08 WBC RBC Hgb Hct MCHC RDW Plt Count Lymph % (Auto) [place] % (Auto) Eos % (Auto) Lymph # (Auto) [place] # (Auto) Eos # (Auto) Seg Neutrophils % Seg Neuts % (Manual) Lymphocytes % (Manual) Eosinophils % (Manual) Seg Neutrophils # Seg Neutrophils # Man Lymphocytes # (Manual) Eosinophils # (Manual) PT Activated Coag Time D-Dimer Heparin Anti-Xa Level ABG pH ABG pO2 ABG HCO3 ABG O2 Saturation ABG Base Excess ABG Hemoglobin Oxyhemoglobin Sodium Potassium Chloride Carbon Dioxide BUN Creatinine Glucose POC Glucose 263 H Lactic Acid Calcium Phosphorus Magnesium Ferritin Direct Bilirubin AST ALT Alkaline Phosphatase Lactate Dehydrogenase Total Creatine Kinase CK-MB (CK-2) CK-MB (CK-2) Rel Index Troponin T C-Reactive Protein Total Protein Albumin Triglycerides Ur Specific [place] Urine Blood Large A Urine WBC (Auto) 88.0 H Urine Creatinine 90.9 H Digoxin Coronavirus (PCR) SARS-CoV-2 (PCR) 04/19/22 04/19/22 04/19/22 02:08 03:45 03:45 WBC 14.2 H RBC Hgb Hct MCHC RDW Plt Count Lymph % (Auto) [place] % (Auto) Eos % (Auto) Lymph # (Auto) [place] # (Auto) Eos # (Auto) Seg Neutrophils % Seg Neuts % (Manual) Lymphocytes % (Manual) Eosinophils % (Manual) Seg Neutrophils # Seg Neutrophils # Man Lymphocytes # (Manual) Eosinophils # (Manual) PT Activated Coag Time D-Dimer Heparin Anti-Xa Level 0.18 L ABG pH ABG pO2 ABG HCO3 ABG O2 Saturation ABG Base Excess ABG Hemoglobin Oxyhemoglobin Sodium Potassium Chloride 94.2 L Carbon Dioxide BUN 39 H Creatinine 3.8 H Glucose 243 H POC Glucose Lactic Acid Calcium 7.1 L Phosphorus Magnesium 1.50 L Ferritin Direct Bilirubin AST 380 H ALT 289 H Alkaline Phosphatase Lactate Dehydrogenase Total Creatine Kinase CK-MB (CK-2) CK-MB (CK-2) Rel Index Troponin T C-Reactive Protein Total Protein 5.4 L Albumin 2.5 L Triglycerides Ur Specific [place] Urine Blood Urine WBC (Auto) Urine Creatinine Digoxin Coronavirus (PCR) SARS-CoV-2 (PCR) 04/19/22 04/19/22 04/19/22 03:45 06:01 07:11 WBC RBC Hgb Hct MCHC RDW Plt Count Lymph % (Auto) [place] % (Auto) Eos % (Auto) Lymph # (Auto) [place] # (Auto) Eos # (Auto) Seg Neutrophils % Seg Neuts % (Manual) Lymphocytes % (Manual) Eosinophils % (Manual) Seg Neutrophils # Seg Neutrophils # Man Lymphocytes # (Manual) Eosinophils # (Manual) PT Activated Coag Time D-Dimer Heparin Anti-Xa Level ABG pH ABG pO2 ABG HCO3 ABG O2 Saturation ABG Base Excess ABG Hemoglobin Oxyhemoglobin Sodium Potassium Chloride Carbon Dioxide BUN Creatinine Glucose POC Glucose 165 H Lactic Acid 4.00 H* Calcium Phosphorus Magnesium Ferritin Direct Bilirubin AST ALT Alkaline Phosphatase Lactate Dehydrogenase Total Creatine Kinase 3270 H CK-MB (CK-2) 28.5 H CK-MB (CK-2) Rel Index Troponin T 2.980 H* C-Reactive Protein Total Protein Albumin Triglycerides Ur Specific [place] Urine Blood Urine WBC (Auto) Urine Creatinine Digoxin Coronavirus (PCR) SARS-CoV-2 (PCR) 04/19/22 04/19/22 04/19/22 07:50 08:50 12:49 WBC RBC Hgb Hct MCHC RDW Plt Count Lymph % (Auto) [place] % (Auto) Eos % (Auto) Lymph # (Auto) [place] # (Auto) Eos # (Auto) Seg Neutrophils % Seg Neuts % (Manual) Lymphocytes % (Manual) Eosinophils % (Manual) Seg Neutrophils # Seg Neutrophils # Man Lymphocytes # (Manual) Eosinophils # (Manual) PT Activated Coag Time D-Dimer Heparin Anti-Xa Level ABG pH 7.471 H ABG pO2 58.9 L ABG HCO3 27.1 H ABG O2 Saturation 91.7 L ABG Base Excess 3.4 H ABG Hemoglobin 12.2 L Oxyhemoglobin 90.0 L Sodium Potassium Chloride Carbon Dioxide BUN Creatinine Glucose POC Glucose 331 H Lactic Acid 3.40 H* Calcium Phosphorus Magnesium Ferritin Direct Bilirubin AST ALT Alkaline Phosphatase Lactate Dehydrogenase Total Creatine Kinase CK-MB (CK-2) CK-MB (CK-2) Rel Index Troponin T C-Reactive Protein Total Protein Albumin Triglycerides Ur Specific [place] Urine Blood Urine WBC (Auto) Urine Creatinine Digoxin Coronavirus (PCR) SARS-CoV-2 (PCR) 04/19/22 04/19/22 04/19/22 16:15 19:25 21:17 WBC RBC Hgb Hct MCHC RDW Plt Count Lymph % (Auto) [place] % (Auto) Eos % (Auto) Lymph # (Auto) [place] # (Auto) Eos # (Auto) Seg Neutrophils % Seg Neuts % (Manual) Lymphocytes % (Manual) Eosinophils % (Manual) Seg Neutrophils # Seg Neutrophils # Man Lymphocytes # (Manual) Eosinophils # (Manual) PT Activated Coag Time D-Dimer Heparin Anti-Xa Level ABG pH ABG pO2 ABG HCO3 ABG O2 Saturation ABG Base Excess ABG Hemoglobin Oxyhemoglobin Sodium Potassium Chloride Carbon Dioxide BUN Creatinine Glucose POC Glucose 304 H 251 H Lactic Acid 4.00 H* Calcium Phosphorus Magnesium Ferritin Direct Bilirubin AST ALT Alkaline Phosphatase Lactate Dehydrogenase Total Creatine Kinase CK-MB (CK-2) CK-MB (CK-2) Rel Index Troponin T C-Reactive Protein Total Protein Albumin Triglycerides Ur Specific [place] Urine Blood Urine WBC (Auto) Urine Creatinine Digoxin Coronavirus (PCR) SARS-CoV-2 (PCR) 04/19/22 04/20/22 04/20/22 23:00 04:12 04:12 WBC 12.2 H RBC Hgb 11.6 L Hct 35.3 L MCHC RDW Plt Count Lymph % (Auto) [place] % (Auto) Eos % (Auto) Lymph # (Auto) [place] # (Auto) Eos # (Auto) Seg Neutrophils % Seg Neuts % (Manual) Lymphocytes % (Manual) Eosinophils % (Manual) Seg Neutrophils # Seg Neutrophils # Man Lymphocytes # (Manual) Eosinophils # (Manual) PT Activated Coag Time D-Dimer Heparin Anti-Xa Level 0.15 L ABG pH ABG pO2 ABG HCO3 ABG O2 Saturation ABG Base Excess ABG Hemoglobin Oxyhemoglobin Sodium Potassium Chloride Carbon Dioxide BUN Creatinine Glucose POC Glucose 236 H Lactic Acid Calcium Phosphorus Magnesium Ferritin Direct Bilirubin AST ALT Alkaline Phosphatase Lactate Dehydrogenase Total Creatine Kinase CK-MB (CK-2) CK-MB (CK-2) Rel Index Troponin T C-Reactive Protein Total Protein Albumin Triglycerides Ur Specific [place] Urine Blood Urine WBC (Auto) Urine Creatinine Digoxin Coronavirus (PCR) SARS-CoV-2 (PCR) 08/05/0404/20/22 04/20/22 04:12 04:12 09:10 WBC RBC Hgb Hct MCHC RDW Plt Count Lymph % (Auto) [place] % (Auto) Eos % (Auto) Lymph # (Auto) [place] # (Auto) Eos # (Auto) Seg Neutrophils % Seg Neuts % (Manual) Lymphocytes % (Manual) Eosinophils % (Manual) Seg Neutrophils # Seg Neutrophils # Man Lymphocytes # (Manual) Eosinophils # (Manual) PT Activated Coag Time D-Dimer Heparin Anti-Xa Level ABG pH ABG pO2 ABG HCO3 ABG O2 Saturation ABG Base Excess ABG Hemoglobin Oxyhemoglobin Sodium 133 L Potassium 3.5 L Chloride 91.9 L Carbon Dioxide BUN 44 H Creatinine 4.6 H Glucose 263 H POC Glucose Lactic Acid 2.80 H* Calcium 7.2 L Phosphorus Magnesium Ferritin Direct Bilirubin AST 553 H ALT 471 H Alkaline Phosphatase Lactate Dehydrogenase Total Creatine Kinase 3019 H CK-MB (CK-2) CK-MB (CK-2) Rel Index Troponin T C-Reactive Protein Total Protein 5.7 L Albumin 2.4 L Triglycerides 254 H Ur Specific [place] Urine Blood Urine WBC (Auto) Urine Creatinine Digoxin Coronavirus (PCR) SARS-CoV-2 (PCR) 04/20/22 04/20/22 04/20/22 09:31 11:18 18:08 WBC RBC Hgb Hct MCHC RDW Plt Count Lymph % (Auto) [place] % (Auto) Eos % (Auto) Lymph # (Auto) [place] # (Auto) Eos # (Auto) Seg Neutrophils % Seg Neuts % (Manual) Lymphocytes % (Manual) Eosinophils % (Manual) Seg Neutrophils # Seg Neutrophils # Man Lymphocytes # (Manual) Eosinophils # (Manual) PT Activated Coag Time D-Dimer Heparin Anti-Xa Level ABG pH 7.512 H ABG pO2 ABG HCO3 26.2 H ABG O2 Saturation ABG Base Excess 3.2 H ABG Hemoglobin 9.0 L Oxyhemoglobin Sodium Potassium Chloride Carbon Dioxide BUN Creatinine Glucose POC Glucose 285 H 293 H Lactic Acid Calcium Phosphorus Magnesium Ferritin Direct Bilirubin AST ALT Alkaline Phosphatase Lactate Dehydrogenase Total Creatine Kinase CK-MB (CK-2) CK-MB (CK-2) Rel Index Troponin T C-Reactive Protein Total Protein Albumin Triglycerides Ur Specific [place] Urine Blood Urine WBC (Auto) Urine Creatinine Digoxin Coronavirus (PCR) SARS-CoV-2 (PCR) 04/20/22 04/21/22 04/21/22 21:40 00:10 04:00 WBC RBC Hgb Hct MCHC RDW Plt Count Lymph % (Auto) [place] % (Auto) Eos % (Auto) Lymph # (Auto) [place] # (Auto) Eos # (Auto) Seg Neutrophils % Seg Neuts % (Manual) Lymphocytes % (Manual) Eosinophils % (Manual) Seg Neutrophils # Seg Neutrophils # Man Lymphocytes # (Manual) Eosinophils # (Manual) PT Activated Coag Time D-Dimer Heparin Anti-Xa Level 0.16 L ABG pH ABG pO2 59.4 L ABG HCO3 29.7 H ABG O2 Saturation 90.1 L ABG Base Excess 3.1 H ABG Hemoglobin 11.6 L Oxyhemoglobin 88.2 L Sodium Potassium Chloride Carbon Dioxide BUN Creatinine Glucose POC Glucose 290 H Lactic Acid Calcium Phosphorus Magnesium Ferritin Direct Bilirubin AST ALT Alkaline Phosphatase Lactate Dehydrogenase Total Creatine Kinase CK-MB (CK-2) CK-MB (CK-2) Rel Index Troponin T C-Reactive Protein Total Protein Albumin Triglycerides Ur Specific [place] Urine Blood Urine WBC (Auto) Urine Creatinine Digoxin Coronavirus (PCR) SARS-CoV-2 (PCR) 04/21/22 04/21/22 04/21/22 04:30 04:30 05:57 WBC 17.9 H RBC Hgb 11.7 L Hct 35.1 L MCHC RDW Plt Count Lymph % (Auto) [place] % (Auto) Eos % (Auto) Lymph # (Auto) [place] # (Auto) Eos # (Auto) Seg Neutrophils % Seg Neuts % (Manual) Lymphocytes % (Manual) Eosinophils % (Manual) Seg Neutrophils # Seg Neutrophils # Man Lymphocytes # (Manual) Eosinophils # (Manual) PT Activated Coag Time D-Dimer Heparin Anti-Xa Level ABG pH ABG pO2 ABG HCO3 ABG O2 Saturation ABG Base Excess ABG Hemoglobin Oxyhemoglobin Sodium Potassium Chloride 95.7 L Carbon Dioxide BUN 45 H Creatinine 4.2 H Glucose 309 H POC Glucose 265 H Lactic Acid Calcium 7.4 L Phosphorus 5.60 H D Magnesium 2.50 H Ferritin Direct Bilirubin AST 217 H ALT 376 H Alkaline Phosphatase Lactate Dehydrogenase Total Creatine Kinase CK-MB (CK-2) CK-MB (CK-2) Rel Index Troponin T C-Reactive Protein Total Protein Albumin 2.8 L Triglycerides Ur Specific [place] Urine Blood Urine WBC (Auto) Urine Creatinine Digoxin Coronavirus (PCR) SARS-CoV-2 (PCR) 04/21/22 04/21/22 04/21/22 12:14 13:45 18:10 WBC RBC Hgb Hct MCHC RDW Plt Count Lymph % (Auto) [place] % (Auto) Eos % (Auto) Lymph # (Auto) [place] # (Auto) Eos # (Auto) Seg Neutrophils % Seg Neuts % (Manual) Lymphocytes % (Manual) Eosinophils % (Manual) Seg Neutrophils # Seg Neutrophils # Man Lymphocytes # (Manual) Eosinophils # (Manual) PT Activated Coag Time 179 H D-Dimer Heparin Anti-Xa Level ABG pH ABG pO2 ABG HCO3 ABG O2 Saturation ABG Base Excess ABG Hemoglobin Oxyhemoglobin Sodium Potassium Chloride Carbon Dioxide BUN Creatinine Glucose POC Glucose 248 H 240 H Lactic Acid Calcium Phosphorus Magnesium Ferritin Direct Bilirubin AST ALT Alkaline Phosphatase Lactate Dehydrogenase Total Creatine Kinase CK-MB (CK-2) CK-MB (CK-2) Rel Index Troponin T C-Reactive Protein Total Protein Albumin Triglycerides Ur Specific [place] Urine Blood Urine WBC (Auto) Urine Creatinine Digoxin Coronavirus (PCR) SARS-CoV-2 (PCR) 04/22/22 04/22/22 04/22/22 00:09 04:00 04:33 WBC 12.4 H RBC 3.34 L Hgb 9.8 L Hct 29.7 L MCHC RDW Plt Count 138 L Lymph % (Auto) [place] % (Auto) Eos % (Auto) Lymph # (Auto) [place] # (Auto) Eos # (Auto) Seg Neutrophils % Seg Neuts % (Manual) Lymphocytes % (Manual) Eosinophils % (Manual) Seg Neutrophils # Seg Neutrophils # Man Lymphocytes # (Manual) Eosinophils # (Manual) PT Activated Coag Time D-Dimer Heparin Anti-Xa Level ABG pH ABG pO2 ABG HCO3 ABG O2 Saturation ABG Base Excess ABG Hemoglobin Oxyhemoglobin Sodium Potassium Chloride Carbon Dioxide BUN 40 H Creatinine 2.9 H Glucose 269 H POC Glucose 248 H Lactic Acid Calcium 7.3 L Phosphorus Magnesium Ferritin Direct Bilirubin AST ALT Alkaline Phosphatase Lactate Dehydrogenase Total Creatine Kinase 973 H CK-MB (CK-2) CK-MB (CK-2) Rel Index Troponin T C-Reactive Protein Total Protein Albumin Triglycerides Ur Specific [place] Urine Blood Urine WBC (Auto) Urine Creatinine Digoxin Coronavirus (PCR) SARS-CoV-2 (PCR) 04/22/22 04/22/2222 10:13 11:51 18:02 WBC RBC Hgb Hct MCHC RDW Plt Count Lymph % (Auto) [place] % (Auto) Eos % (Auto) Lymph # (Auto) [place] # (Auto) Eos # (Auto) Seg Neutrophils % Seg Neuts % (Manual) Lymphocytes % (Manual) Eosinophils % (Manual) Seg Neutrophils # Seg Neutrophils # Man Lymphocytes # (Manual) Eosinophils # (Manual) PT Activated Coag Time D-Dimer Heparin Anti-Xa Level ABG pH ABG pO2 56.1 L ABG HCO3 28.4 H ABG O2 Saturation 89.3 L ABG Base Excess ABG Hemoglobin 9.8 L Oxyhemoglobin 87.7 L Sodium Potassium Chloride Carbon Dioxide BUN Creatinine Glucose POC Glucose 302 H 266 H Lactic Acid Calcium Phosphorus Magnesium Ferritin Direct Bilirubin AST ALT Alkaline Phosphatase Lactate Dehydrogenase Total Creatine Kinase CK-MB (CK-2) CK-MB (CK-2) Rel Index Troponin T C-Reactive Protein Total Protein Albumin Triglycerides Ur Specific [place] Urine Blood Urine WBC (Auto) Urine Creatinine Digoxin Coronavirus (PCR) SARS-CoV-2 (PCR) 04/22/22 04/22/22 04/23/22 21:18 23:30 04:19 WBC RBC 3.34 L Hgb 9.9 L Hct 29.9 L MCHC RDW Plt Count Lymph % (Auto) [place] % (Auto) Eos % (Auto) Lymph # (Auto) [place] # (Auto) Eos # (Auto) Seg Neutrophils % Seg Neuts % (Manual) 74.0 H Lymphocytes % (Manual) 10.0 L Eosinophils % (Manual) 7.0 H Seg Neutrophils # Seg Neutrophils # Man 8.0 H Lymphocytes # (Manual) 1.1 L Eosinophils # (Manual) 0.8 H PT Activated Coag Time D-Dimer Heparin Anti-Xa Level ABG pH ABG pO2 ABG HCO3 ABG O2 Saturation ABG Base Excess ABG Hemoglobin Oxyhemoglobin Sodium Potassium Chloride Carbon Dioxide BUN Creatinine Glucose POC Glucose 299 H 299 H Lactic Acid Calcium Phosphorus Magnesium Ferritin Direct Bilirubin AST ALT Alkaline Phosphatase Lactate Dehydrogenase Total Creatine Kinase CK-MB (CK-2) CK-MB (CK-2) Rel Index Troponin T C-Reactive Protein Total Protein Albumin Triglycerides Ur Specific [place] Urine Blood Urine WBC (Auto) Urine Creatinine Digoxin Coronavirus (PCR) SARS-CoV-2 (PCR) 08/08/0404/23/22 04/23/22 04:19 05:24 11:20 WBC RBC Hgb Hct MCHC RDW Plt Count Lymph % (Auto) [place] % (Auto) Eos % (Auto) Lymph # (Auto) [place] # (Auto) Eos # (Auto) Seg Neutrophils % Seg Neuts % (Manual) Lymphocytes % (Manual) Eosinophils % (Manual) Seg Neutrophils # Seg Neutrophils # Man Lymphocytes # (Manual) Eosinophils # (Manual) PT Activated Coag Time D-Dimer Heparin Anti-Xa Level ABG pH ABG pO2 ABG HCO3 ABG O2 Saturation ABG Base Excess ABG Hemoglobin Oxyhemoglobin Sodium Potassium 3.5 L Chloride Carbon Dioxide BUN 30 H Creatinine 2.3 H Glucose 289 H POC Glucose 271 H 302 H Lactic Acid Calcium 7.8 L Phosphorus Magnesium Ferritin Direct Bilirubin AST 46 H ALT 158 H Alkaline Phosphatase 138 H Lactate Dehydrogenase Total Creatine Kinase CK-MB (CK-2) CK-MB (CK-2) Rel Index Troponin T C-Reactive Protein Total Protein 6.2 L Albumin 2.6 L Triglycerides 230 H Ur Specific [place] Urine Blood Urine WBC (Auto) Urine Creatinine Digoxin Coronavirus (PCR) SARS-CoV-2 (PCR) 04/23/22 04/23/22 04/23/22 18:07 18:20 21:14 WBC RBC Hgb Hct MCHC RDW Plt Count Lymph % (Auto) [place] % (Auto) Eos % (Auto) Lymph # (Auto) [place] # (Auto) Eos # (Auto) Seg Neutrophils % Seg Neuts % (Manual) Lymphocytes % (Manual) Eosinophils % (Manual) Seg Neutrophils # Seg Neutrophils # Man Lymphocytes # (Manual) Eosinophils # (Manual) PT Activated Coag Time D-Dimer Heparin Anti-Xa Level ABG pH ABG pO2 ABG HCO3 31.6 H ABG O2 Saturation ABG Base Excess 4.8 H ABG Hemoglobin 18.3 H Oxyhemoglobin 94.8 L Sodium Potassium Chloride Carbon Dioxide BUN Creatinine Glucose POC Glucose 228 H 175 H Lactic Acid Calcium Phosphorus Magnesium Ferritin Direct Bilirubin AST ALT Alkaline Phosphatase Lactate Dehydrogenase Total Creatine Kinase CK-MB (CK-2) CK-MB (CK-2) Rel Index Troponin T C-Reactive Protein Total Protein Albumin Triglycerides Ur Specific [place] Urine Blood Urine WBC (Auto) Urine Creatinine Digoxin Coronavirus (PCR) SARS-CoV-2 (PCR) 04/23/22 04/24/22 04/24/22 23:24 04:35 04:47 WBC RBC Hgb Hct MCHC RDW Plt Count Lymph % (Auto) [place] % (Auto) Eos % (Auto) Lymph # (Auto) [place] # (Auto) Eos # (Auto) Seg Neutrophils % Seg Neuts % (Manual) Lymphocytes % (Manual) Eosinophils % (Manual) Seg Neutrophils # Seg Neutrophils # Man Lymphocytes # (Manual) Eosinophils # (Manual) PT Activated Coag Time D-Dimer Heparin Anti-Xa Level ABG pH ABG pO2 ABG HCO3 31.5 H ABG O2 Saturation ABG Base Excess 6.1 H ABG Hemoglobin 10.3 L Oxyhemoglobin Sodium Potassium Chloride Carbon Dioxide BUN Creatinine Glucose POC Glucose 168 H 177 H Lactic Acid Calcium Phosphorus Magnesium Ferritin Direct Bilirubin AST ALT Alkaline Phosphatase Lactate Dehydrogenase Total Creatine Kinase CK-MB (CK-2) CK-MB (CK-2) Rel Index Troponin T C-Reactive Protein Total Protein Albumin Triglycerides Ur Specific [place] Urine Blood Urine WBC (Auto) Urine Creatinine Digoxin Coronavirus (PCR) SARS-CoV-2 (PCR) 04/24/22 04/24/22 04/24/22 06:00 06:00 12:45 WBC 14.0 H RBC 3.57 L Hgb 10.1 L Hct 31.9 L MCHC RDW Plt Count Lymph % (Auto) 4.7 L [place] % (Auto) 8.8 H Eos % (Auto) 6.0 H Lymph # (Auto) 0.7 L [place] # (Auto) 1.2 H Eos # (Auto) 0.8 H Seg Neutrophils % 80.5 H Seg Neuts % (Manual) Lymphocytes % (Manual) Eosinophils % (Manual) Seg Neutrophils # 11.3 H Seg Neutrophils # Man Lymphocytes # (Manual) Eosinophils # (Manual) PT Activated Coag Time D-Dimer Heparin Anti-Xa Level ABG pH ABG pO2 ABG HCO3 ABG O2 Saturation ABG Base Excess ABG Hemoglobin Oxyhemoglobin Sodium Potassium 3.4 L Chloride Carbon Dioxide BUN 25 H Creatinine 1.8 H Glucose 218 H POC Glucose 227 H Lactic Acid Calcium 8.2 L Phosphorus Magnesium Ferritin Direct Bilirubin AST ALT 99 H Alkaline Phosphatase 141 H Lactate Dehydrogenase Total Creatine Kinase CK-MB (CK-2) CK-MB (CK-2) Rel Index Troponin T C-Reactive Protein Total Protein 6.2 L Albumin 2.2 L Triglycerides Ur Specific [place] Urine Blood Urine WBC (Auto) Urine Creatinine Digoxin Coronavirus (PCR) SARS-CoV-2 (PCR) 04/24/22 04/24/22 04/24/22 17:57 21:19 23:24 WBC RBC Hgb Hct MCHC RDW Plt Count Lymph % (Auto) [place] % (Auto) Eos % (Auto) Lymph # (Auto) [place] # (Auto) Eos # (Auto) Seg Neutrophils % Seg Neuts % (Manual) Lymphocytes % (Manual) Eosinophils % (Manual) Seg Neutrophils # Seg Neutrophils # Man Lymphocytes # (Manual) Eosinophils # (Manual) PT Activated Coag Time D-Dimer Heparin Anti-Xa Level ABG pH ABG pO2 ABG HCO3 ABG O2 Saturation ABG Base Excess ABG Hemoglobin Oxyhemoglobin Sodium Potassium Chloride Carbon Dioxide BUN Creatinine Glucose POC Glucose 207 H 186 H 203 H Lactic Acid Calcium Phosphorus Magnesium Ferritin Direct Bilirubin AST ALT Alkaline Phosphatase Lactate Dehydrogenase Total Creatine Kinase CK-MB (CK-2) CK-MB (CK-2) Rel Index Troponin T C-Reactive Protein Total Protein Albumin Triglycerides Ur Specific [place] Urine Blood Urine WBC (Auto) Urine Creatinine Digoxin Coronavirus (PCR) SARS-CoV-2 (PCR) 04/25/22 04/25/22 04/25/22 03:30 03:30 04:38 WBC 19.7 H RBC 3.39 L Hgb 9.8 L Hct 30.2 L MCHC RDW 15.6 H Plt Count Lymph % (Auto) 4.7 L [place] % (Auto) Eos % (Auto) 5.0 H Lymph # (Auto) 0.9 L [place] # (Auto) 1.2 H Eos # (Auto) 1.0 H Seg Neutrophils % 84.0 H Seg Neuts % (Manual) Lymphocytes % (Manual) Eosinophils % (Manual) Seg Neutrophils # 16.5 H Seg Neutrophils # Man Lymphocytes # (Manual) Eosinophils # (Manual) PT Activated Coag Time D-Dimer Heparin Anti-Xa Level ABG pH ABG pO2 ABG HCO3 ABG O2 Saturation ABG Base Excess ABG Hemoglobin Oxyhemoglobin Sodium 151 H Potassium 3.5 L Chloride 108.6 H Carbon Dioxide 31 H BUN 27 H Creatinine 1.9 H Glucose 144 H POC Glucose 135 H Lactic Acid Calcium 8.3 L Phosphorus Magnesium Ferritin Direct Bilirubin AST ALT Alkaline Phosphatase Lactate Dehydrogenase Total Creatine Kinase CK-MB (CK-2) CK-MB (CK-2) Rel Index Troponin T C-Reactive Protein Total Protein Albumin Triglycerides Ur Specific [place] Urine Blood Urine WBC (Auto) Urine Creatinine Digoxin Coronavirus (PCR) SARS-CoV-2 (PCR) 04/25/22 04/25/22 04/25/22 05:09 12:12 17:58 WBC RBC Hgb Hct MCHC RDW Plt Count Lymph % (Auto) [place] % (Auto) Eos % (Auto) Lymph # (Auto) [place] # (Auto) Eos # (Auto) Seg Neutrophils % Seg Neuts % (Manual) Lymphocytes % (Manual) Eosinophils % (Manual) Seg Neutrophils # Seg Neutrophils # Man Lymphocytes # (Manual) Eosinophils # (Manual) PT Activated Coag Time D-Dimer Heparin Anti-Xa Level ABG pH ABG pO2 ABG HCO3 32.2 H ABG O2 Saturation ABG Base Excess 6.7 H ABG Hemoglobin 9.9 L Oxyhemoglobin 94.9 L Sodium Potassium Chloride Carbon Dioxide BUN Creatinine Glucose POC Glucose 218 H 229 H Lactic Acid Calcium Phosphorus Magnesium Ferritin Direct Bilirubin AST ALT Alkaline Phosphatase Lactate Dehydrogenase Total Creatine Kinase CK-MB (CK-2) CK-MB (CK-2) Rel Index Troponin T C-Reactive Protein Total Protein Albumin Triglycerides Ur Specific [place] Urine Blood Urine WBC (Auto) Urine Creatinine Digoxin Coronavirus (PCR) SARS-CoV-2 (PCR) 04/25/22 04/25/22 04/26/22 18:00 23:48 05:20 WBC RBC Hgb 9.4 L Hct 30.1 L MCHC RDW Plt Count Lymph % (Auto) [place] % (Auto) Eos % (Auto) Lymph # (Auto) [place] # (Auto) Eos # (Auto) Seg Neutrophils % Seg Neuts % (Manual) Lymphocytes % (Manual) Eosinophils % (Manual) Seg Neutrophils # Seg Neutrophils # Man Lymphocytes # (Manual) Eosinophils # (Manual) PT Activated Coag Time D-Dimer Heparin Anti-Xa Level ABG pH ABG pO2 ABG HCO3 32.4 H ABG O2 Saturation ABG Base Excess 6.8 H ABG Hemoglobin 9.5 L Oxyhemoglobin Sodium Potassium Chloride Carbon Dioxide BUN Creatinine Glucose POC Glucose 214 H Lactic Acid Calcium Phosphorus Magnesium Ferritin Direct Bilirubin AST ALT Alkaline Phosphatase Lactate Dehydrogenase Total Creatine Kinase CK-MB (CK-2) CK-MB (CK-2) Rel Index Troponin T C-Reactive Protein Total Protein Albumin Triglycerides Ur Specific [place] Urine Blood Urine WBC (Auto) Urine Creatinine Digoxin Coronavirus (PCR) SARS-CoV-2 (PCR) 04/26/22 04/26/22 04/26/22 05:20 05:51 11:39 WBC RBC Hgb Hct MCHC RDW Plt Count Lymph % (Auto) [place] % (Auto) Eos % (Auto) Lymph # (Auto) [place] # (Auto) Eos # (Auto) Seg Neutrophils % Seg Neuts % (Manual) Lymphocytes % (Manual) Eosinophils % (Manual) Seg Neutrophils # Seg Neutrophils # Man Lymphocytes # (Manual) Eosinophils # (Manual) PT Activated Coag Time D-Dimer Heparin Anti-Xa Level ABG pH ABG pO2 ABG HCO3 ABG O2 Saturation ABG Base Excess ABG Hemoglobin Oxyhemoglobin Sodium 147 H Potassium Chloride Carbon Dioxide 33 H BUN 27 H Creatinine 1.6 H Glucose 221 H POC Glucose 227 H 263 H Lactic Acid Calcium Phosphorus Magnesium Ferritin Direct Bilirubin AST ALT Alkaline Phosphatase Lactate Dehydrogenase Total Creatine Kinase CK-MB (CK-2) CK-MB (CK-2) Rel Index Troponin T C-Reactive Protein Total Protein Albumin Triglycerides Ur Specific [place] Urine Blood Urine WBC (Auto) Urine Creatinine Digoxin Coronavirus (PCR) SARS-CoV-2 (PCR) 04/26/22 04/26/22 04/27/22 16:22 23:14 04:00 WBC RBC Hgb Hct MCHC RDW Plt Count Lymph % (Auto) [place] % (Auto) Eos % (Auto) Lymph # (Auto) [place] # (Auto) Eos # (Auto) Seg Neutrophils % Seg Neuts % (Manual) Lymphocytes % (Manual) Eosinophils % (Manual) Seg Neutrophils # Seg Neutrophils # Man Lymphocytes # (Manual) Eosinophils # (Manual) PT Activated Coag Time D-Dimer Heparin Anti-Xa Level ABG pH ABG pO2 ABG HCO3 ABG O2 Saturation ABG Base Excess ABG Hemoglobin Oxyhemoglobin Sodium Potassium Chloride Carbon Dioxide BUN 23 H Creatinine 1.4 H Glucose 231 H POC Glucose 250 H 221 H Lactic Acid Calcium 8.3 L Phosphorus Magnesium Ferritin Direct Bilirubin AST 45 H ALT Alkaline Phosphatase 180 H Lactate Dehydrogenase Total Creatine Kinase CK-MB (CK-2) CK-MB (CK-2) Rel Index Troponin T C-Reactive Protein Total Protein Albumin 2.1 L Triglycerides Ur Specific [place] Urine Blood Urine WBC (Auto) Urine Creatinine Digoxin Coronavirus (PCR) SARS-CoV-2 (PCR) 04/27/22 04/27/22 04/27/22 04:00 05:25 11:08 WBC 20.1 H RBC 3.28 L Hgb 9.5 L Hct 29.3 L MCHC RDW Plt Count Lymph % (Auto) 5.9 L [place] % (Auto) 8.0 H Eos % (Auto) 5.5 H Lymph # (Auto) [place] # (Auto) 1.6 H Eos # (Auto) 1.1 H Seg Neutrophils % 80.3 H Seg Neuts % (Manual) Lymphocytes % (Manual) Eosinophils % (Manual) Seg Neutrophils # 16.2 H Seg Neutrophils # Man Lymphocytes # (Manual) Eosinophils # (Manual) PT Activated Coag Time D-Dimer Heparin Anti-Xa Level ABG pH ABG pO2 ABG HCO3 ABG O2 Saturation ABG Base Excess ABG Hemoglobin Oxyhemoglobin Sodium Potassium Chloride Carbon Dioxide BUN Creatinine Glucose POC Glucose 234 H 224 H Lactic Acid Calcium Phosphorus Magnesium Ferritin Direct Bilirubin AST ALT Alkaline Phosphatase Lactate Dehydrogenase Total Creatine Kinase CK-MB (CK-2) CK-MB (CK-2) Rel Index Troponin T C-Reactive Protein Total Protein Albumin Triglycerides Ur Specific [place] Urine Blood Urine WBC (Auto) Urine Creatinine Digoxin Coronavirus (PCR) SARS-CoV-2 (PCR) 04/28/22 04/28/22 04/28/22 00:01 05:25 05:28 WBC 16.1 H RBC 3.32 L Hgb 9.4 L Hct 29.9 L MCHC RDW Plt Count Lymph % (Auto) [place] % (Auto) Eos % (Auto) Lymph # (Auto) [place] # (Auto) Eos # (Auto) Seg Neutrophils % Seg Neuts % (Manual) Lymphocytes % (Manual) Eosinophils % (Manual) Seg Neutrophils # Seg Neutrophils # Man Lymphocytes # (Manual) Eosinophils # (Manual) PT Activated Coag Time D-Dimer Heparin Anti-Xa Level ABG pH 7.489 H ABG pO2 72.5 L ABG HCO3 27.8 H ABG O2 Saturation ABG Base Excess 4.3 H ABG Hemoglobin 9.2 L Oxyhemoglobin 94.6 L Sodium Potassium Chloride Carbon Dioxide BUN Creatinine Glucose POC Glucose 189 H Lactic Acid Calcium Phosphorus Magnesium Ferritin Direct Bilirubin AST ALT Alkaline Phosphatase Lactate Dehydrogenase Total Creatine Kinase CK-MB (CK-2) CK-MB (CK-2) Rel Index Troponin T C-Reactive Protein Total Protein Albumin Triglycerides Ur Specific [place] Urine Blood Urine WBC (Auto) Urine Creatinine Digoxin Coronavirus (PCR) SARS-CoV-2 (PCR) 04/28/22 04/28/22 04/28/22 05:28 05:44 08:20 WBC RBC Hgb Hct MCHC RDW Plt Count Lymph % (Auto) [place] % (Auto) Eos % (Auto) Lymph # (Auto) [place] # (Auto) Eos # (Auto) Seg Neutrophils % Seg Neuts % (Manual) Lymphocytes % (Manual) Eosinophils % (Manual) Seg Neutrophils # Seg Neutrophils # Man Lymphocytes # (Manual) Eosinophils # (Manual) PT Activated Coag Time D-Dimer Heparin Anti-Xa Level ABG pH ABG pO2 ABG HCO3 ABG O2 Saturation ABG Base Excess ABG Hemoglobin Oxyhemoglobin Sodium Potassium Chloride Carbon Dioxide BUN 22 H Creatinine 1.4 H Glucose 179 H POC Glucose 181 H Lactic Acid Calcium 8.2 L Phosphorus Magnesium Ferritin Direct Bilirubin AST ALT Alkaline Phosphatase Lactate Dehydrogenase Total Creatine Kinase CK-MB (CK-2) CK-MB (CK-2) Rel Index Troponin T C-Reactive Protein 15.30 H Total Protein Albumin Triglycerides Ur Specific [place] Urine Blood Urine WBC (Auto) Urine Creatinine Digoxin Coronavirus (PCR) SARS-CoV-2 (PCR) 04/28/22 04/28/22 04/28/22 08:35 11:13 12:07 WBC RBC Hgb Hct MCHC RDW Plt Count Lymph % (Auto) [place] % (Auto) Eos % (Auto) Lymph # (Auto) [place] # (Auto) Eos # (Auto) Seg Neutrophils % Seg Neuts % (Manual) Lymphocytes % (Manual) Eosinophils % (Manual) Seg Neutrophils # Seg Neutrophils # Man Lymphocytes # (Manual) Eosinophils # (Manual) PT Activated Coag Time D-Dimer Heparin Anti-Xa Level ABG pH 7.203 L ABG pO2 43.7 L ABG HCO3 27.7 H ABG O2 Saturation 63.0 L ABG Base Excess ABG Hemoglobin 10.6 L Oxyhemoglobin 61.6 L Sodium Potassium Chloride Carbon Dioxide BUN Creatinine Glucose POC Glucose 131 H Lactic Acid Calcium Phosphorus Magnesium Ferritin Direct Bilirubin AST ALT Alkaline Phosphatase Lactate Dehydrogenase Total Creatine Kinase CK-MB (CK-2) CK-MB (CK-2) Rel Index Troponin T C-Reactive Protein Total Protein Albumin Triglycerides Ur Specific [place] 1.000 L Urine Blood Urine WBC (Auto) 21.0 H Urine Creatinine Digoxin Coronavirus (PCR) SARS-CoV-2 (PCR) 04/28/22 04/28/22 04/29/22 16:20 16:27 00:32 WBC RBC Hgb Hct MCHC RDW Plt Count Lymph % (Auto) [place] % (Auto) Eos % (Auto) Lymph # (Auto) [place] # (Auto) Eos # (Auto) Seg Neutrophils % Seg Neuts % (Manual) Lymphocytes % (Manual) Eosinophils % (Manual) Seg Neutrophils # Seg Neutrophils # Man Lymphocytes # (Manual) Eosinophils # (Manual) PT Activated Coag Time D-Dimer Heparin Anti-Xa Level ABG pH 7.461 H ABG pO2 99.9 H ABG HCO3 28.0 H ABG O2 Saturation ABG Base Excess 3.9 H ABG Hemoglobin 7.7 L Oxyhemoglobin Sodium Potassium Chloride Carbon Dioxide BUN Creatinine Glucose POC Glucose 136 H 205 H Lactic Acid Calcium Phosphorus Magnesium Ferritin Direct Bilirubin AST ALT Alkaline Phosphatase Lactate Dehydrogenase Total Creatine Kinase CK-MB (CK-2) CK-MB (CK-2) Rel Index Troponin T C-Reactive Protein Total Protein Albumin Triglycerides Ur Specific [place] Urine Blood Urine WBC (Auto) Urine Creatinine Digoxin Coronavirus (PCR) SARS-CoV-2 (PCR) 04/29/22 04/29/22 04/29/22 02:35 03:20 04:20 WBC 19.8 H RBC 3.17 L Hgb 9.0 L Hct 27.9 L MCHC RDW Plt Count 481 H Lymph % (Auto) 5.7 L [place] % (Auto) 7.8 H Eos % (Auto) Lymph # (Auto) 1.1 L [place] # (Auto) 1.5 H Eos # (Auto) 0.8 H Seg Neutrophils % 82.0 H Seg Neuts % (Manual) Lymphocytes % (Manual) Eosinophils % (Manual) Seg Neutrophils # 16.3 H Seg Neutrophils # Man Lymphocytes # (Manual) Eosinophils # (Manual) PT Activated Coag Time D-Dimer Heparin Anti-Xa Level ABG pH 7.487 H ABG pO2 176.1 H ABG HCO3 27.6 H ABG O2 Saturation 99.2 H ABG Base Excess 4.0 H ABG Hemoglobin 9.6 L Oxyhemoglobin Sodium Potassium Chloride Carbon Dioxide BUN Creatinine Glucose POC Glucose 223 H Lactic Acid Calcium Phosphorus Magnesium Ferritin Direct Bilirubin AST ALT Alkaline Phosphatase Lactate Dehydrogenase Total Creatine Kinase CK-MB (CK-2) CK-MB (CK-2) Rel Index Troponin T C-Reactive Protein Total Protein Albumin Triglycerides Ur Specific [place] Urine Blood Urine WBC (Auto) Urine Creatinine Digoxin Coronavirus (PCR) SARS-CoV-2 (PCR) 04/29/22 04/29/22 04/29/22 04:20 05:43 09:38 WBC RBC Hgb Hct MCHC RDW Plt Count Lymph % (Auto) [place] % (Auto) Eos % (Auto) Lymph # (Auto) [place] # (Auto) Eos # (Auto) Seg Neutrophils % Seg Neuts % (Manual) Lymphocytes % (Manual) Eosinophils % (Manual) Seg Neutrophils # Seg Neutrophils # Man Lymphocytes # (Manual) Eosinophils # (Manual) PT Activated Coag Time D-Dimer Heparin Anti-Xa Level ABG pH ABG pO2 ABG HCO3 ABG O2 Saturation ABG Base Excess ABG Hemoglobin Oxyhemoglobin Sodium Potassium Chloride Carbon Dioxide BUN 30 H Creatinine 1.6 H Glucose 236 H POC Glucose 202 H Lactic Acid Calcium 8.1 L Phosphorus Magnesium Ferritin Direct Bilirubin AST 143 H ALT 105 H Alkaline Phosphatase 210 H Lactate Dehydrogenase Total Creatine Kinase CK-MB (CK-2) CK-MB (CK-2) Rel Index Troponin T C-Reactive Protein Total Protein 6.2 L Albumin 2.0 L Triglycerides Ur Specific [place] Urine Blood Urine WBC (Auto) Urine Creatinine Digoxin Coronavirus (PCR) Positive A SARS-CoV-2 (PCR) 04/29/22 04/29/22 04/29/22 12:08 18:14 21:11 WBC RBC Hgb Hct MCHC RDW Plt Count Lymph % (Auto) [place] % (Auto) Eos % (Auto) Lymph # (Auto) [place] # (Auto) Eos # (Auto) Seg Neutrophils % Seg Neuts % (Manual) Lymphocytes % (Manual) Eosinophils % (Manual) Seg Neutrophils # Seg Neutrophils # Man Lymphocytes # (Manual) Eosinophils # (Manual) PT Activated Coag Time D-Dimer Heparin Anti-Xa Level ABG pH ABG pO2 ABG HCO3 ABG O2 Saturation ABG Base Excess ABG Hemoglobin Oxyhemoglobin Sodium Potassium Chloride Carbon Dioxide BUN Creatinine Glucose POC Glucose 152 H 151 H 140 H Lactic Acid Calcium Phosphorus Magnesium Ferritin Direct Bilirubin AST ALT Alkaline Phosphatase Lactate Dehydrogenase Total Creatine Kinase CK-MB (CK-2) CK-MB (CK-2) Rel Index Troponin T C-Reactive Protein Total Protein Albumin Triglycerides Ur Specific [place] Urine Blood Urine WBC (Auto) Urine Creatinine Digoxin Coronavirus (PCR) SARS-CoV-2 (PCR) 04/29/22 04/30/22 04/30/22 23:58 04:25 04:25 WBC 13.3 H RBC 2.81 L Hgb 8.0 L Hct 24.4 L MCHC RDW Plt Count 441 H Lymph % (Auto) [place] % (Auto) Eos % (Auto) Lymph # (Auto) [place] # (Auto) Eos # (Auto) Seg Neutrophils % Seg Neuts % (Manual) Lymphocytes % (Manual) Eosinophils % (Manual) Seg Neutrophils # Seg Neutrophils # Man Lymphocytes # (Manual) Eosinophils # (Manual) PT Activated Coag Time D-Dimer Heparin Anti-Xa Level ABG pH ABG pO2 ABG HCO3 ABG O2 Saturation ABG Base Excess ABG Hemoglobin Oxyhemoglobin Sodium Potassium 3.2 L Chloride Carbon Dioxide BUN 26 H Creatinine 1.5 H Glucose 105 H POC Glucose 135 H Lactic Acid Calcium 8.0 L Phosphorus Magnesium Ferritin Direct Bilirubin 0.3 H AST 138 H ALT 94 H Alkaline Phosphatase 172 H Lactate Dehydrogenase Total Creatine Kinase CK-MB (CK-2) CK-MB (CK-2) Rel Index Troponin T C-Reactive Protein Total Protein 5.5 L Albumin 2.0 L Triglycerides Ur Specific [place] Urine Blood Urine WBC (Auto) Urine Creatinine Digoxin Coronavirus (PCR) SARS-CoV-2 (PCR) 04/30/22 04/30/22 04/30/22 04:25 05:20 10:19 WBC RBC Hgb Hct MCHC RDW Plt Count Lymph % (Auto) [place] % (Auto) Eos % (Auto) Lymph # (Auto) [place] # (Auto) Eos # (Auto) Seg Neutrophils % Seg Neuts % (Manual) Lymphocytes % (Manual) Eosinophils % (Manual) Seg Neutrophils # Seg Neutrophils # Man Lymphocytes # (Manual) Eosinophils # (Manual) PT Activated Coag Time D-Dimer Heparin Anti-Xa Level ABG pH 7.514 H ABG pO2 73.4 L ABG HCO3 28.1 H ABG O2 Saturation ABG Base Excess 4.8 H ABG Hemoglobin 7.8 L Oxyhemoglobin 94.9 L Sodium Potassium 3.3 L Chloride Carbon Dioxide BUN 26 H Creatinine 1.4 H Glucose 108 H POC Glucose Lactic Acid Calcium 7.5 L Phosphorus Magnesium Ferritin Direct Bilirubin AST 183 H ALT 112 H Alkaline Phosphatase 175 H Lactate Dehydrogenase Total Creatine Kinase CK-MB (CK-2) CK-MB (CK-2) Rel Index Troponin T C-Reactive Protein Total Protein 5.0 L Albumin 2.1 L Triglycerides Ur Specific [place] Urine Blood Urine WBC (Auto) Urine Creatinine Digoxin 0.6 L Coronavirus (PCR) SARS-CoV-2 (PCR) 04/30/22 04/30/22 04/30/22 12:46 17:37 21:18 WBC RBC Hgb Hct MCHC RDW Plt Count Lymph % (Auto) [place] % (Auto) Eos % (Auto) Lymph # (Auto) [place] # (Auto) Eos # (Auto) Seg Neutrophils % Seg Neuts % (Manual) Lymphocytes % (Manual) Eosinophils % (Manual) Seg Neutrophils # Seg Neutrophils # Man Lymphocytes # (Manual) Eosinophils # (Manual) PT Activated Coag Time D-Dimer Heparin Anti-Xa Level ABG pH ABG pO2 ABG HCO3 ABG O2 Saturation ABG Base Excess ABG Hemoglobin Oxyhemoglobin Sodium Potassium Chloride Carbon Dioxide BUN Creatinine Glucose POC Glucose 109 H 143 H 182 H Lactic Acid Calcium Phosphorus Magnesium Ferritin Direct Bilirubin AST ALT Alkaline Phosphatase Lactate Dehydrogenase Total Creatine Kinase CK-MB (CK-2) CK-MB (CK-2) Rel Index Troponin T C-Reactive Protein Total Protein Albumin Triglycerides Ur Specific [place] Urine Blood Urine WBC (Auto) Urine Creatinine Digoxin Coronavirus (PCR) SARS-CoV-2 (PCR) 04/30/22 05/01/22 05/01/22 23:41 04:00 04:44 WBC 16.9 H RBC 3.03 L Hgb 8.7 L Hct 26.7 L MCHC RDW Plt Count 566 H Lymph % (Auto) [place] % (Auto) Eos % (Auto) Lymph # (Auto) [place] # (Auto) Eos # (Auto) Seg Neutrophils % Seg Neuts % (Manual) Lymphocytes % (Manual) Eosinophils % (Manual) Seg Neutrophils # Seg Neutrophils # Man Lymphocytes # (Manual) Eosinophils # (Manual) PT Activated Coag Time D-Dimer Heparin Anti-Xa Level ABG pH ABG pO2 ABG HCO3 ABG O2 Saturation ABG Base Excess ABG Hemoglobin Oxyhemoglobin Sodium Potassium Chloride 107.1 H Carbon Dioxide BUN 33 H Creatinine 1.5 H Glucose 161 H POC Glucose 196 H Lactic Acid Calcium 8.0 L Phosphorus Magnesium Ferritin Direct Bilirubin AST 137 H ALT 111 H Alkaline Phosphatase 183 H Lactate Dehydrogenase Total Creatine Kinase CK-MB (CK-2) CK-MB (CK-2) Rel Index Troponin T C-Reactive Protein Total Protein Albumin 2.1 L Triglycerides 214 H Ur Specific [place] Urine Blood Urine WBC (Auto) Urine Creatinine Digoxin Coronavirus (PCR) SARS-CoV-2 (PCR) 05/01/22 05/01/22 05/01/22 05:07 09:40 12:16 WBC RBC Hgb Hct MCHC RDW Plt Count Lymph % (Auto) [place] % (Auto) Eos % (Auto) Lymph # (Auto) [place] # (Auto) Eos # (Auto) Seg Neutrophils % Seg Neuts % (Manual) Lymphocytes % (Manual) Eosinophils % (Manual) Seg Neutrophils # Seg Neutrophils # Man Lymphocytes # (Manual) Eosinophils # (Manual) PT Activated Coag Time D-Dimer Heparin Anti-Xa Level ABG pH 7.496 H ABG pO2 72.8 L ABG HCO3 26.7 H ABG O2 Saturation ABG Base Excess ABG Hemoglobin 8.5 L Oxyhemoglobin Sodium Potassium Chloride Carbon Dioxide BUN Creatinine Glucose POC Glucose 145 H Lactic Acid Calcium Phosphorus Magnesium Ferritin Direct Bilirubin AST ALT Alkaline Phosphatase Lactate Dehydrogenase Total Creatine Kinase CK-MB (CK-2) CK-MB (CK-2) Rel Index Troponin T C-Reactive Protein Total Protein Albumin Triglycerides Ur Specific [place] Urine Blood Urine WBC (Auto) Urine Creatinine Digoxin 0.5 L Coronavirus (PCR) SARS-CoV-2 (PCR) 05/01/22 05/01/22 05/01/22 12:17 14:30 16:14 WBC RBC Hgb Hct MCHC RDW Plt Count Lymph % (Auto) [place] % (Auto) Eos % (Auto) Lymph # (Auto) [place] # (Auto) Eos # (Auto) Seg Neutrophils % Seg Neuts % (Manual) Lymphocytes % (Manual) Eosinophils % (Manual) Seg Neutrophils # Seg Neutrophils # Man Lymphocytes # (Manual) Eosinophils # (Manual) PT Activated Coag Time D-Dimer Heparin Anti-Xa Level ABG pH ABG pO2 ABG HCO3 26.2 H ABG O2 Saturation ABG Base Excess ABG Hemoglobin 7.8 L Oxyhemoglobin Sodium Potassium Chloride Carbon Dioxide BUN Creatinine Glucose POC Glucose 232 H 220 H Lactic Acid Calcium Phosphorus Magnesium Ferritin Direct Bilirubin AST ALT Alkaline Phosphatase Lactate Dehydrogenase Total Creatine Kinase CK-MB (CK-2) CK-MB (CK-2) Rel Index Troponin T C-Reactive Protein Total Protein Albumin Triglycerides Ur Specific [place] Urine Blood Urine WBC (Auto) Urine Creatinine Digoxin Coronavirus (PCR) SARS-CoV-2 (PCR) 05/01/22 05/01/22 05/02/22 21:59 23:45 04:45 WBC RBC Hgb Hct MCHC RDW Plt Count Lymph % (Auto) [place] % (Auto) Eos % (Auto) Lymph # (Auto) [place] # (Auto) Eos # (Auto) Seg Neutrophils % Seg Neuts % (Manual) Lymphocytes % (Manual) Eosinophils % (Manual) Seg Neutrophils # Seg Neutrophils # Man Lymphocytes # (Manual) Eosinophils # (Manual) PT Activated Coag Time D-Dimer Heparin Anti-Xa Level ABG pH ABG pO2 ABG HCO3 ABG O2 Saturation ABG Base Excess ABG Hemoglobin 9.3 L Oxyhemoglobin Sodium Potassium Chloride Carbon Dioxide BUN Creatinine Glucose POC Glucose 251 H 203 H Lactic Acid Calcium Phosphorus Magnesium Ferritin Direct Bilirubin AST ALT Alkaline Phosphatase Lactate Dehydrogenase Total Creatine Kinase CK-MB (CK-2) CK-MB (CK-2) Rel Index Troponin T C-Reactive Protein Total Protein Albumin Triglycerides Ur Specific [place] Urine Blood Urine WBC (Auto) Urine Creatinine Digoxin Coronavirus (PCR) SARS-CoV-2 (PCR) 05/02/22 05/02/22 05/02/22 04:47 04:59 04:59 WBC 17.9 H RBC 3.06 L Hgb 8.6 L Hct 26.7 L MCHC RDW 15.5 H Plt Count 597 H Lymph % (Auto) [place] % (Auto) Eos % (Auto) Lymph # (Auto) [place] # (Auto) Eos # (Auto) Seg Neutrophils % Seg Neuts % (Manual) Lymphocytes % (Manual) Eosinophils % (Manual) Seg Neutrophils # Seg Neutrophils # Man Lymphocytes # (Manual) Eosinophils # (Manual) PT Activated Coag Time D-Dimer Heparin Anti-Xa Level ABG pH ABG pO2 ABG HCO3 ABG O2 Saturation ABG Base Excess ABG Hemoglobin Oxyhemoglobin Sodium 147 H Potassium Chloride 111.5 H Carbon Dioxide BUN 36 H Creatinine Glucose 136 H POC Glucose 120 H Lactic Acid Calcium 8.0 L Phosphorus Magnesium Ferritin Direct Bilirubin AST 73 H ALT 90 H Alkaline Phosphatase 171 H Lactate Dehydrogenase Total Creatine Kinase CK-MB (CK-2) CK-MB (CK-2) Rel Index Troponin T C-Reactive Protein Total Protein Albumin 2.3 L Triglycerides Ur Specific [place] Urine Blood Urine WBC (Auto) Urine Creatinine Digoxin Coronavirus (PCR) SARS-CoV-2 (PCR) 05/02/22 05/02/22 05/02/22 11:59 16:29 22:10 WBC RBC Hgb Hct MCHC RDW Plt Count Lymph % (Auto) [place] % (Auto) Eos % (Auto) Lymph # (Auto) [place] # (Auto) Eos # (Auto) Seg Neutrophils % Seg Neuts % (Manual) Lymphocytes % (Manual) Eosinophils % (Manual) Seg Neutrophils # Seg Neutrophils # Man Lymphocytes # (Manual) Eosinophils # (Manual) PT Activated Coag Time D-Dimer Heparin Anti-Xa Level ABG pH ABG pO2 ABG HCO3 ABG O2 Saturation ABG Base Excess ABG Hemoglobin Oxyhemoglobin Sodium Potassium Chloride Carbon Dioxide BUN Creatinine Glucose POC Glucose 212 H 193 H 147 H Lactic Acid Calcium Phosphorus Magnesium Ferritin Direct Bilirubin AST ALT Alkaline Phosphatase Lactate Dehydrogenase Total Creatine Kinase CK-MB (CK-2) CK-MB (CK-2) Rel Index Troponin T C-Reactive Protein Total Protein Albumin Triglycerides Ur Specific [place] Urine Blood Urine WBC (Auto) Urine Creatinine Digoxin Coronavirus (PCR) SARS-CoV-2 (PCR) 05/02/22 05/03/22 05/03/22 23:59 04:46 04:46 WBC RBC Hgb Hct MCHC RDW Plt Count Lymph % (Auto) [place] % (Auto) Eos % (Auto) Lymph # (Auto) [place] # (Auto) Eos # (Auto) Seg Neutrophils % Seg Neuts % (Manual) Lymphocytes % (Manual) Eosinophils % (Manual) Seg Neutrophils # Seg Neutrophils # Man Lymphocytes # (Manual) Eosinophils # (Manual) PT Activated Coag Time D-Dimer Heparin Anti-Xa Level ABG pH ABG pO2 ABG HCO3 ABG O2 Saturation ABG Base Excess ABG Hemoglobin Oxyhemoglobin Sodium Potassium Chloride 108.3 H Carbon Dioxide BUN 34 H Creatinine Glucose 130 H POC Glucose 145 H Lactic Acid Calcium 7.7 L Phosphorus Magnesium Ferritin Direct Bilirubin AST 98 H ALT 111 H Alkaline Phosphatase 147 H Lactate Dehydrogenase Total Creatine Kinase CK-MB (CK-2) CK-MB (CK-2) Rel Index Troponin T C-Reactive Protein Total Protein 6.0 L Albumin 1.9 L Triglycerides Ur Specific [place] Urine Blood Urine WBC (Auto) Urine Creatinine Digoxin 0.7 L Coronavirus (PCR) SARS-CoV-2 (PCR) 05/03/22 05/03/22 05/03/22 04:46 05:23 11:51 WBC 16.4 H RBC 3.08 L Hgb 8.8 L Hct 27.7 L MCHC RDW Plt Count 596 H Lymph % (Auto) [place] % (Auto) Eos % (Auto) Lymph # (Auto) [place] # (Auto) Eos # (Auto) Seg Neutrophils % Seg Neuts % (Manual) Lymphocytes % (Manual) Eosinophils % (Manual) Seg Neutrophils # Seg Neutrophils # Man Lymphocytes # (Manual) Eosinophils # (Manual) PT Activated Coag Time D-Dimer Heparin Anti-Xa Level ABG pH ABG pO2 ABG HCO3 ABG O2 Saturation ABG Base Excess ABG Hemoglobin Oxyhemoglobin Sodium Potassium Chloride Carbon Dioxide BUN Creatinine Glucose POC Glucose 138 H 163 H Lactic Acid Calcium Phosphorus Magnesium Ferritin Direct Bilirubin AST ALT Alkaline Phosphatase Lactate Dehydrogenase Total Creatine Kinase CK-MB (CK-2) CK-MB (CK-2) Rel Index Troponin T C-Reactive Protein Total Protein Albumin Triglycerides Ur Specific [place] Urine Blood Urine WBC (Auto) Urine Creatinine Digoxin Coronavirus (PCR) SARS-CoV-2 (PCR) 05/03/22 05/03/22 05/04/22 17:36 23:57 03:48 WBC RBC Hgb Hct MCHC RDW Plt Count Lymph % (Auto) [place] % (Auto) Eos % (Auto) Lymph # (Auto) [place] # (Auto) Eos # (Auto) Seg Neutrophils % Seg Neuts % (Manual) Lymphocytes % (Manual) Eosinophils % (Manual) Seg Neutrophils # Seg Neutrophils # Man Lymphocytes # (Manual) Eosinophils # (Manual) PT Activated Coag Time D-Dimer Heparin Anti-Xa Level ABG pH ABG pO2 ABG HCO3 ABG O2 Saturation ABG Base Excess ABG Hemoglobin Oxyhemoglobin Sodium Potassium Chloride 110.5 H Carbon Dioxide BUN 30 H Creatinine Glucose 123 H POC Glucose 262 H 173 H Lactic Acid Calcium 8.1 L Phosphorus Magnesium Ferritin Direct Bilirubin AST 88 H ALT 122 H Alkaline Phosphatase 171 H Lactate Dehydrogenase Total Creatine Kinase CK-MB (CK-2) CK-MB (CK-2) Rel Index Troponin T C-Reactive Protein Total Protein Albumin 2.2 L Triglycerides Ur Specific [place] Urine Blood Urine WBC (Auto) Urine Creatinine Digoxin Coronavirus (PCR) SARS-CoV-2 (PCR) 05/04/22 05/04/22 05/04/22 05:03 11:26 16:32 WBC RBC Hgb Hct MCHC RDW Plt Count Lymph % (Auto) [place] % (Auto) Eos % (Auto) Lymph # (Auto) [place] # (Auto) Eos # (Auto) Seg Neutrophils % Seg Neuts % (Manual) Lymphocytes % (Manual) Eosinophils % (Manual) Seg Neutrophils # Seg Neutrophils # Man Lymphocytes # (Manual) Eosinophils # (Manual) PT Activated Coag Time D-Dimer Heparin Anti-Xa Level ABG pH ABG pO2 ABG HCO3 ABG O2 Saturation ABG Base Excess ABG Hemoglobin Oxyhemoglobin Sodium Potassium Chloride Carbon Dioxide BUN Creatinine Glucose POC Glucose 117 H 158 H 300 H Lactic Acid Calcium Phosphorus Magnesium Ferritin Direct Bilirubin AST ALT Alkaline Phosphatase Lactate Dehydrogenase Total Creatine Kinase CK-MB (CK-2) CK-MB (CK-2) Rel Index Troponin T C-Reactive Protein Total Protein Albumin Triglycerides Ur Specific [place] Urine Blood Urine WBC (Auto) Urine Creatinine Digoxin Coronavirus (PCR) SARS-CoV-2 (PCR) 05/04/22 05/05/22 05/05/22 21:30 03:54 03:54 WBC 16.2 H RBC 3.54 L Hgb 10.1 L Hct 32.2 L MCHC 31 L RDW 15.3 H Plt Count 644 H Lymph % (Auto) [place] % (Auto) Eos % (Auto) Lymph # (Auto) [place] # (Auto) Eos # (Auto) Seg Neutrophils % Seg Neuts % (Manual) Lymphocytes % (Manual) Eosinophils % (Manual) Seg Neutrophils # Seg Neutrophils # Man Lymphocytes # (Manual) Eosinophils # (Manual) PT Activated Coag Time D-Dimer Heparin Anti-Xa Level ABG pH ABG pO2 ABG HCO3 ABG O2 Saturation ABG Base Excess ABG Hemoglobin Oxyhemoglobin Sodium Potassium Chloride Carbon Dioxide BUN Creatinine Glucose POC Glucose 184 H Lactic Acid Calcium Phosphorus Magnesium Ferritin Direct Bilirubin AST ALT Alkaline Phosphatase Lactate Dehydrogenase Total Creatine Kinase CK-MB (CK-2) CK-MB (CK-2) Rel Index Troponin T C-Reactive Protein Total Protein Albumin Triglycerides Ur Specific [place] Urine Blood Urine WBC (Auto) Urine Creatinine Digoxin 0.7 L Coronavirus (PCR) SARS-CoV-2 (PCR) 05/05/22 05/05/22 05/05/22 03:54 03:54 03:54 WBC RBC Hgb Hct MCHC RDW Plt Count Lymph % (Auto) [place] % (Auto) Eos % (Auto) Lymph # (Auto) [place] # (Auto) Eos # (Auto) Seg Neutrophils % Seg Neuts % (Manual) Lymphocytes % (Manual) Eosinophils % (Manual) Seg Neutrophils # Seg Neutrophils # Man Lymphocytes # (Manual) Eosinophils # (Manual) PT Activated Coag Time D-Dimer 1411.79 H Heparin Anti-Xa Level ABG pH ABG pO2 ABG HCO3 ABG O2 Saturation ABG Base Excess ABG Hemoglobin Oxyhemoglobin Sodium Potassium Chloride 107.5 H Carbon Dioxide BUN 26 H Creatinine Glucose 134 H POC Glucose Lactic Acid Calcium 8.2 L Phosphorus Magnesium Ferritin 416.7 H Direct Bilirubin AST 51 H ALT 107 H Alkaline Phosphatase 170 H Lactate Dehydrogenase 340 H Total Creatine Kinase CK-MB (CK-2) CK-MB (CK-2) Rel Index Troponin T C-Reactive Protein 2.70 H Total Protein Albumin 2.9 L Triglycerides Ur Specific [place] Urine Blood Urine WBC (Auto) Urine Creatinine Digoxin Coronavirus (PCR) SARS-CoV-2 (PCR) 05/05/22 05/05/22 05/05/22 07:24 11:05 15:30 WBC RBC Hgb Hct MCHC RDW Plt Count Lymph % (Auto) [place] % (Auto) Eos % (Auto) Lymph # (Auto) [place] # (Auto) Eos # (Auto) Seg Neutrophils % Seg Neuts % (Manual) Lymphocytes % (Manual) Eosinophils % (Manual) Seg Neutrophils # Seg Neutrophils # Man Lymphocytes # (Manual) Eosinophils # (Manual) PT Activated Coag Time D-Dimer Heparin Anti-Xa Level ABG pH ABG pO2 ABG HCO3 ABG O2 Saturation ABG Base Excess ABG Hemoglobin Oxyhemoglobin Sodium Potassium Chloride Carbon Dioxide BUN Creatinine Glucose POC Glucose 147 H 206 H Lactic Acid Calcium Phosphorus Magnesium Ferritin Direct Bilirubin AST ALT Alkaline Phosphatase Lactate Dehydrogenase Total Creatine Kinase CK-MB (CK-2) CK-MB (CK-2) Rel Index Troponin T C-Reactive Protein Total Protein Albumin Triglycerides Ur Specific [place] Urine Blood Urine WBC (Auto) Urine Creatinine Digoxin Coronavirus (PCR) SARS-CoV-2 (PCR) Positive A 05/05/22 05/05/22 05/05/22 16:35 21:00 23:17 WBC RBC Hgb Hct MCHC RDW Plt Count Lymph % (Auto) [place] % (Auto) Eos % (Auto) Lymph # (Auto) [place] # (Auto) Eos # (Auto) Seg Neutrophils % Seg Neuts % (Manual) Lymphocytes % (Manual) Eosinophils % (Manual) Seg Neutrophils # Seg Neutrophils # Man Lymphocytes # (Manual) Eosinophils # (Manual) PT Activated Coag Time D-Dimer Heparin Anti-Xa Level ABG pH ABG pO2 ABG HCO3 ABG O2 Saturation ABG Base Excess ABG Hemoglobin Oxyhemoglobin Sodium Potassium Chloride Carbon Dioxide BUN Creatinine Glucose POC Glucose 168 H 131 H 133 H Lactic Acid Calcium Phosphorus Magnesium Ferritin Direct Bilirubin AST ALT Alkaline Phosphatase Lactate Dehydrogenase Total Creatine Kinase CK-MB (CK-2) CK-MB (CK-2) Rel Index Troponin T C-Reactive Protein Total Protein Albumin Triglycerides Ur Specific [place] Urine Blood Urine WBC (Auto) Urine Creatinine Digoxin Coronavirus (PCR) SARS-CoV-2 (PCR) 05/06/22 05/06/22 04:25 04:25 WBC 14.6 H RBC 3.51 L Hgb 9.9 L Hct 31.5 L MCHC 31 L RDW 15.4 H Plt Count 648 H Lymph % (Auto) [place] % (Auto) Eos % (Auto) Lymph # (Auto) [place] # (Auto) Eos # (Auto) Seg Neutrophils % Seg Neuts % (Manual) Lymphocytes % (Manual) Eosinophils % (Manual) Seg Neutrophils # Seg Neutrophils # Man Lymphocytes # (Manual) Eosinophils # (Manual) PT Activated Coag Time D-Dimer Heparin Anti-Xa Level ABG pH ABG pO2 ABG HCO3 ABG O2 Saturation ABG Base Excess ABG Hemoglobin Oxyhemoglobin Sodium Potassium Chloride 107.4 H Carbon Dioxide BUN 25 H Creatinine Glucose POC Glucose Lactic Acid Calcium 8.0 L Phosphorus Magnesium Ferritin Direct Bilirubin AST ALT Alkaline Phosphatase Lactate Dehydrogenase Total Creatine Kinase CK-MB (CK-2) CK-MB (CK-2) Rel Index Troponin T C-Reactive Protein Total Protein Albumin Triglycerides Ur Specific [place] Urine Blood Urine WBC (Auto) Urine Creatinine Digoxin Coronavirus (PCR) SARS-CoV-2 (PCR) Chest x-ray: image reviewed (ETT in good position; mild improvement in pulmonary infiltrates) Allied health notes reviewed: nursing
[2022-05-06 13:42] LABS: ABG Base Excess 1.1 mmol/L (-2.0-3.0); ABG HCO3 24.9 mmol/L (20.0-26.0); ABG Methemoglobin 0.5 % (0.0-1.5); ABG Oxygen Saturation 96.9 % (95.0-99.0); ABG PCO2 35.9 mm Hg; ABG PH 7.458 pH Units (7.350-7.450); ABG PO2 69.6 mm Hg (80.0-90.0)
--- NOTE | 2022-05-06 13:53 | Progress Note ---
Assessment and Plan - Patient Problems (1) Cardiac arrest Current Visit: Yes Status: Acute Plan to address problem: Patient presented with out of hospital cardiopulmonary arrest. Echocardiogram showed a four-chamber dilated cardiomyopathy with left ventricular ejection fraction 15 to 20% of uncertain chronicity. A persistent atrial fibrillation since admission, currently managed with rate control and anticoagulation. Rate control is with metoprolol and digitalis, and anticoagulation at the current time is with Lovenox, pending the completion of invasive cardiac device therapies. Cardiac catheterization showed no significant obstructive coronary lesions, consistent with nonischemic cardiomyopathy. Patient has had an intercurrent COVID-19 infection, and is still being managed in the ICU. Clinically improving. He has been recommended for predischarge ICD for secondary prevention, and may need transfer to a [place] facility for this procedure. Subjective Date of service: 05/06/22 Principal diagnosis: AHRF; AMS; Pneumonia; Shock; DM II; Severe Metabolic Acidosis Interval history: The patient is comfortable, no cardiac complaints, but blood pressure has been elevated, persistently above 160 systolic. He remains in well-controlled atrial fibrillation. Due to swallowing difficulty, his oral medications are given via nasogastric tube. Objective Vital Signs Temp Pulse Pulse Resp BP Pulse Ox 05/06/22 13:00 97 H 19 133/72 96 05/06/22 12:45 95 H 20 138/85 97 05/06/22 12:30 99 H 30 H 142/99 97 05/06/22 12:16 83 31 H 148/89 99 05/06/22 12:00 100.9 F H 54 L 94 H 11 L 95/56 98 05/06/22 11:46 120 H 21 93/55 100 05/06/22 11:30 87 35 H 176/120 99 05/06/22 11:26 80 180/112 05/06/22 11:00 88 28 H 179/100 05/06/22 10:00 78 33 H 177/98 96 05/06/22 09:06 87 186/87 05/06/22 09:00 94 H 33 H 187/106 97 05/06/22 08:28 98 05/06/22 08:00 99 F 75 85 30 H 189/124 97 05/06/22 07:00 80 32 H 144/84 97 05/06/22 06:00 68 31 H 141/79 97 05/06/22 05:00 67 25 H 148/84 100 05/06/22 04:00 98.3 F 60 68 24 132/91 100 05/06/22 03:00 68 27 H 148/85 100 05/06/22 02:00 60 23 129/68 99 05/06/22 01:00 65 27 H 149/80 100 05/06/22 00:41 60 28 H 149/80 100 05/06/22 00:00 61 27 H 149/80 99 05/05/22 23:46 98.6 F 05/05/22 23:34 68 05/05/22 23:33 61 27 H 100 05/05/22 23:04 76 21 152/82 98 05/05/22 23:00 72 30 H 152/82 100 05/05/22 22:00 71 24 136/86 99 05/05/22 21:05 61 136/89 05/05/22 21:04 71 136/86 05/05/22 21:00 65 29 H 133/74 100 05/05/22 20:53 69 28 H 133/74 100 05/05/22 20:08 97.8 F 05/05/22 20:00 74 28 H 133/74 99 05/05/22 19:44 56 L 05/05/22 19:38 59 L 22 100 05/05/22 19:00 60 22 131/71 100 05/05/22 18:00 71 24 131/71 98 05/05/22 17:00 66 22 145/70 97 05/05/22 16:49 59 L 05/05/22 16:30 83 28 H 168/102 100 05/05/22 16:00 98.4 F 80 87 27 H 168/102 100 05/05/22 15:00 66 26 H 157/86 100 05/05/22 14:00 53 L 25 H 157/86 99 - Physical Examination General: No Apparent Distress HEENT: Positive: EOMI Neck: Positive: neck supple Cardiac: Positive: irregularly irregular Lungs: Positive: Decreased Breath Sounds Neuro: Positive: Grossly Intact, Other (Generalized lethargy) Abdomen: Positive: Soft Extremities: Absent: edema - Labs and Meds CBC 05/06/22 Range/Units 04:25 WBC 14.6 H (4.5-11.0) K/mm3 RBC 3.51 L (3.65-5.03) M/mm3 Hgb 9.9 L (11.8-15.2) gm/dl Hct 31.5 L (35.5-45.6) % Plt Count 648 H (140-440) K/mm3 Comprehensive Metabolic Panel 05/06/22 Range/Units 04:25 Sodium 144 (137-145) mmol/L Potassium 4.5 (3.6-5.0) mmol/L Chloride 107.4 H (98-107) mmol/L Carbon Dioxide 26 (22-30) mmol/L BUN 25 H (9-20) mg/dL Creatinine 0.9 (0.8-1.3) mg/dL Glucose 91 (75-100) mg/dL Calcium 8.0 L (8.4-10.2) mg/dL - Allied health notes Allied health notes reviewed: nursing
--- NOTE | 2022-05-06 14:00 | Progress Note ---
Assessment and Plan Assessment and plan: This is a 62 year old male with OHS, HTN, DM, metabolic syndrome, s/p vfib cardiac arrest, Septic shock, aspiration pneumonia, transaminitis, VINCENT with acute metabolic encephalopathy Neuro: Acute metabolic encephalopathy (resolved), facial contusions s/p fall -CT head showed no focal intra-axial mass, hemorrhage, hydrocephalus or acute or large territorial infarct -Reorientation as needed -Maintain sleep-wake cycle -Neurology consulted, appreciate recommendations -As needed analgesia Cardiac: A. fib RVR , s/p V. fib cardiac arrest, cardiogenic shock, h/o atrial fibrillation s/p cardioversion, HTN -Cardiology consulted, appreciate recommendations -S/p V. fib cardiac arrest -S/p dopamine drip and dobutamine drip -Amio d/c for increased LFTs -s/p X 2 dose IV dig, now on PO Dig -s/p IV heparin -Blood pressure monitoring per protocol -s/p Vasopressor support with levophed, epinephrine, vasopressin -Echocardiogram shows EF of 15 to 20% -Left heart cath showed severe nonischemic cardiomyopathy with patent coronary arteries, which per cardiology presumably resulted in a primary cardiac arrest. -Plan to DC with life vest Respiratory: Acute hypoxic respiratory failure, h/o OHS -CCM consulted, appreciate recommendations -Intubated on 04/17 with 7.0 OETT @ 22 at the lips, reintubated 04/23 for blown cuff and reintuabted, self extubated 04/28 and reintubated but extubated 05/02, INTUBATED 05/06 -Vent settings: R 15, TV 450, Peep 6, FiO2 40% -see RT notes for titration -Chest US showed no pleural effusion -Pulmonary hygiene -SPO2 monitoring GI: Transaminitis (resolving), moderate protein calorie malnutrition -24 hours -895 mL -PPI -Cardiac CC diet, pureed -BR: Senokot -Trend LFTs : Acute kidney injury likely secondary to vasomotor nephropathy (resolved) -Nephrology consulted, appreciate recommendations -Monitor intake and output -Renally dose medications -Avoid nephrotoxic medications -s/p bicarb gtt -PO lasix, IV lasix for 24 hours (05/04) -Renal ultrasound shows distended gallbladder, no cholecystic fluid -Trend BMP ID: COVID [id number] PNA, Aspiration pneumonia, Sepsis, lactic acidosis -ID consulted, appreciate recommendations -COVID 19 PCR (+) -CTA chest shows extensive bilateral airspace disease present dependent portions and greater in the upper lobes, given distribution could be related to aspiration -Admitted with hypotension, lactic acidosis, acute kidney injury, CXR showed pna -Antibiotic therapy with cefepime, vanco -Redemsevir for 5 days -Contact and droplet precautions -f/u blood culture -Blood culture with NGTD, Sputum culture with usual adina -Monitor WBC and temperature curve -Trend COVID 19 inflammatory markers Endo: h/o DM -Avoid hypoglycemia -SSI -Accu-Cheks ACHS -Long-acting insulin, titrate as needed Heme: Leukocytosis, elevated D-dimer -CTA chest shows no pulmonary embolism -Trend CBC -Transfuse for hemoglobin less than 7 -Bilateral Doppler ultrasound showed no DVT -Lovenox BID -SCDs to BLE while in bed Disposition: -Patient is a [facility] patient -Accepted to [facility] ICU under Dr. Boles The high probability of a clinically significant, sudden or life threatening deterioration of the [multiple] system(s) required my full and direct attention, intervention and personal management. The aggregate critical care time was [90] minutes. This time is in addition to time spent performing reported procedures but includes the following: [x] Data Review and interpretation [x] Patient assessment and monitoring of vital signs [x] Documentation [x] Medication orders and management Disposition Plan: icu Total Time Spent with Patient (Minutes): 90 History Interval history: This is is a 62-year-old male with OHS, HTN, DM, metabolic syndrome presents the emergency department on 04/17 via EMS s/p cardiac arrest. As per family patient presented to [facility] outpatient [facility] for evaluation for chest pain and subsequently went to the restroom where he was found unresponsive and EMS arrived and noted the patient had a V. fib arrest and ACLS was initiated and patient was transported to [facility] for further evaluation. Patient was noted to have aspirated into the oropharynx with suspected aspiration pneumonia complicated by acute hypoxic respiratory failure, septic shock and cardiac arrest. Patient was initiated on the sepsis protocol, IV vasopressor support and admitted to the ICU with consults to [facility], nephrology and cardiology. Hospital Course to Date: 04/18: Severely acidotic this am, now on bcarb gtt. On high dose pressors- Levophed and Vaso. Afib in control rate on the monitor, on Amiodarone and heparin gtt per protocol. Cardiology is following. Patient remains afebrile and leukocytosis improved this am. Now with worsen renal function and low UOP. Patient's EF is 25 to 30%, Dobutamine gtt initiated. Continue current IV abx, continue to trend troponin and lactic acid. Nephrology also consulted for further recs. BLE swelling noted, BLE doppler ordered to r/o DVT. 04/19: Agitation with low SPO2 overnight, sedation increased. This am ABG with worsen hypoxia on 40% Fio2, SPO2 at 90% this am. Fio2 increased to 50%, SPO2 improved above 92%. Remains on multiple pressors and bcarb gtt. Now on dopamine gtt, in Afib with RVR on the monitor. Still on Amiodarone and heparin gtts. Echo noted, EF 15 to 20%. Cardiology is following. With worsen renal function, however making urine this am. No indication for [employer] at this per Nephro. Will continue to monitor. Monitor and replace electrolytes as needed 04/20: Nephrology spoke to at bedside re HD, cardiology will proceed with LHC if patient is to recieve HD post procedure, vent changes per CCM, Sedated with fentanyl and propofol with heparin and amio gtt infusing. 04/21: LHC today. Nephrology will continue IVF and if renal function worsens then will proceed HD with consent from family. Patient became hypoxic with FiO2 at 40% yesterday evening and is currently at 65%. 04/22: Patient was started on vasopressin IV fluids yesterday and his creatinine decreased from 4.2 to 2.9. Patient severely agitated while on propofol and fentanyl. Started low-dose Seroquel and started to wean propofol as tolerated. Patient does follow commands today. Increase in lantus. IV fluids decreased, started on dobutamine per [facility] and wean vasopressin for target MAP of 65-70 and SBP greater than 110 04/23: This morning patient being extremely hypertensive with SBP into 200s and given metoprolol. Rn asked to wean propofol as tolerated. Dobutamine decreased to 2.5. Cr improved. US chest completed and showed no pleural effusions. This afternoon alerted by RN that RT believes pt bite through his tube and anesthesia was called to bedside for tube exchange. Decision was made to extubate and reintubate the patient. CXR ordered. 04/24: Patient placed on CPAP trial. Renal numbers look better today. Cardiology would like to try digoxin. No acute events reported overnight. 04/25: Patient now with hypernatremia, slightly increased renal function today but still putting out over 1 L urine over the past 24 hours. Will increase free water flushes and repleate potassium cautiously. Cardilogy will like to continue current management. PSV when able 04/26: Cardiology will increase amiodarone due to heart rate being in the 110s to 120s and will hold off digoxin, remains on dobutamine drip. Hypernatremia improving. Remains on D5 W per nephrology. PSV this AM. Rash noted to trunk, a dhruv, chest. RN to hold off Seroquel. Started on IV Benadryl. Already n.p.o. famotidine. Updated [facility] physician who also informed me that the patient is allergic to lisinopril (angioedema) 04/27: Tolerating PSV trail this am on low dose sedation. Per CCM, plan to wean vent setting for possible extubation. If patient requires higher dose of sedation, will add precedex gtt for trial to wean off sedation. Patient with low grade fevers with worsening leukopcytosis, B.cultures from yesterday with NGTD. Will do a lines vacations, D/C CVC and penn. Patient is hemodynamically stable, will continue to monitor for now. Patient is also net positive balance since admit, hypernatremia resolved, and renal function improved, will decrease IVF for now. Nephrology is also following. 04/28: Self-extubated this afternoon, requiring emergent reintubation. Flash pulmonary edema noted during intubation, X1 dose of IV lasix administered. Currently hypertensive and Afib with RVR, HR in the 110-130s, sedations resumed. Persistent fevers overnight with leukocytosis, repeat blood culture with no growth. Orders placed for UA and repeat sputum culture. Empiric IV Abx, Cefepine and vanc initiated. ID was also consulted. Continue vent wean/adjustment per CCM. Penn was reinserted overnight due to retention, will reassess in the next 24hrs to 48hrs. 04/29: Remains stable on the vent, this am CXR and ABG with significant improvement. On low dose pressors this am, MAP in the 70s, titrate pressor to maintain MAP in the 70s. Still with persistent fevers despite current IV abx, repeat cultures with NGTD. Orders placed for COVID and Flu PCR.. Worsen LFTs this am, d/w Cardio will D/C PO amio, X2 dose of IV digoxin for rate control. Renal function stable, patient responded well to IV lasix, over 5L out in last 24hrs. Will hold off on diurese today per Nephro, will reassess in the am. Insulin regimen adjusted for hyperglycemia. 04/30: Stable on low vent settings this am. Off pressors, fevers and leukocytosis improved. COVID PCR came back positive, IV steroids initiated. And ID recommendations noted- continue Cefepine and Vanc, Redemsevir added. Remains with transaminitis, abdominal US pending. Patient remains in Afib control, tolerated IV dig. Plan for daily PO dig per Cardiology. Renal function is stable, X1 dose of IV lasix today. K repleted, continue to monitor and replace electrolytes as needed. 05/01: Remains stable on the vent. Fevers improved and VSS. Plan to wean propofol gtt for possible PSV trial this am. Okay to SBT on low dose fentynal gtt per CCM. Tolerated IV lasix, good UOP overnight. Renal function remains stable, will continue to monitor. Possible transfer to [place] whenever a bed is available. 05/02: Off sedations this am, tolerating PSV trial. Plan for possible extubation today per CCM. Renal function continue to improve, X1 dose of IV lasix given prior to possible extubation. PT/OT/Speech ordered. 05/03: s/p extubation, stable on 2L NC. Rhonchi and crackles appreciated through lungs today, no respiratory distress noted. Will repeat CXR this am. Will d/w CCM and nephro of possible additional lasix today. Renal function continue to improved with good UOP, Penn removed. Patient remains in Afib control, on PO digoxin, and now on therapeutic Lovenox. Per Cardio plan to arrange for LifeVest or AICD prior to discharge. D/w CCM will continue ICU care for another 24hrs to 48hrs as patient is still critically ill. 05/04: Patient remains on NC. No acute events overnight. TID lispro discontinued. Renal function continues to improve. 05/05: Alerted by RN that patient was found almost OOB with a large BM, also noted very diminished breath sound and stridor. Asked RT to admin racemic epi. , albuterol neb changed to diskus. After epi, stridor is improved. Remained on 2L NC during episode with SpO2 in the high 90s. Noted hypertension and metoprolol adjusted. Possible elective reintubation 05/06: Patient still having stridor, given racemic epi and intubated by anesthesia. Patient has been accepted by fast food crew lead at [facility]. [facility] for continued diuresis but decrease the dosage of the Lasix. Patient started on as needed hydralazine for hypertension. Started on fentanyl drip for analgesia and propofol for sedation. Updated . Hospitalist Physical - Constitutional Vitals: Temp Pulse Resp BP Pulse Ox 100.9 F H 97 H 19 133/72 99 05/06/22 12:00 05/06/22 13:00 05/06/22 13:00 05/06/22 13:00 05/06/22 13:54 General appearance: Present: mild distress, obese, other - EENT Eyes: Present: PERRL, EOM intact ENT: dentition normal - Neck Neck: Present: normal ROM - Respiratory Respiratory effort: normal Respiratory: bilateral: other (audible stridor) - Cardiovascular Rhythm: irregularly irregular Heart Sounds: Present: S1 & S2. Absent: systolic murmur, diastolic murmur - Extremities Extremities: pulses intact, pulses symmetrical, normal temperature, normal color Extremity abnormal: edema Peripheral Pulses: within normal limits - Abdominal General gastrointestinal: soft, non-tender, non-distended, normal bowel sounds - Integumentary Integumentary: Present: warm, dry - Psychiatric Psychiatric: cooperative - Neurologic Neurologic: CNII-XII intact, no focal deficits, moves all extremities - Allied Health Allied health notes reviewed: nursing, RT, social work HEART Score - HEART Score Troponin: Troponin T 2.980 ng/mL (0.00-0.029) H* 04/19/22 07:11 Results - Labs CBC & Chem 7: 05/06/22 04:25 05/06/22 04:25 Labs: Laboratory Last Values WBC 14.6 K/mm3 (4.5-11.0) H 05/06/22 04:25 RBC 3.51 M/mm3 (3.65-5.03) L 05/06/22 04:25 Hgb 9.9 gm/dl (11.8-15.2) L 05/06/22 04:25 Hct 31.5 % (35.5-45.6) L 05/06/22 04:25 MCV 90 fl (84-94) 05/06/22 04:25 MCH 28 pg (28-32) 05/06/22 04:25 MCHC 31 % (32-34) L 05/06/22 04:25 RDW 15.4 % (13.2-15.2) H 05/06/22 04:25 Plt Count 648 K/mm3 (140-440) H 05/06/22 04:25 Lymph % (Auto) 5.7 % (13.4-35.0) L 04/29/22 04:20 Mccracken % (Auto) 7.8 % (0.0-7.3) H 04/29/22 04:20 Eos % (Auto) 3.9 % (0.0-4.3) 04/29/22 04:20 Baso % (Auto) 0.6 % (0.0-1.8) 04/29/22 04:20 Lymph # (Auto) 1.1 K/mm3 (1.2-5.4) L 04/29/22 04:20 Mccracken # (Auto) 1.5 K/mm3 (0.0-0.8) H 04/29/22 04:20 Eos # (Auto) 0.8 K/mm3 (0.0-0.4) H 04/29/22 04:20 Baso # (Auto) 0.1 K/mm3 (0.0-0.1) 04/29/22 04:20 Add Manual Diff Complete 04/23/22 04:19 Total Counted 100 04/23/22 04:19 Seg Neutrophils % 82.0 % (40.0-70.0) H 04/29/22 04:20 Seg Neuts % (Manual) 74.0 % (40.0-70.0) H 04/23/22 04:19 Band Neutrophils % 2.0 % 04/23/22 04:19 Lymphocytes % (Manual) 10.0 % (13.4-35.0) L 04/23/22 04:19 Reactive Lymphs % (Man) 0 % 04/23/22 04:19 Monocytes % (Manual) 7.0 % (0.0-7.3) 04/23/22 04:19 Eosinophils % (Manual) 7.0 % (0.0-4.3) H 04/23/22 04:19 Basophils % (Manual) 0 % (0.0-1.8) 04/23/22 04:19 Metamyelocytes % 0 % 04/23/22 04:19 Myelocytes % 0 % 04/23/22 04:19 Promyelocytes % 0 % 04/23/22 04:19 Blast Cells % 0 % 04/23/22 04:19 Nucleated RBC % Not Reportable 04/23/22 04:19 Seg Neutrophils # 16.3 K/mm3 (1.8-7.7) H 04/29/22 04:20 Seg Neutrophils # Man 8.0 K/mm3 (1.8-7.7) H 04/23/22 04:19 Band Neutrophils # 0.2 K/mm3 04/23/22 04:19 Lymphocytes # (Manual) 1.1 K/mm3 (1.2-5.4) L 04/23/22 04:19 Abs React Lymphs (Man) 0.0 K/mm3 04/23/22 04:19 Monocytes # (Manual) 0.8 K/mm3 (0.0-0.8) 04/23/22 04:19 Eosinophils # (Manual) 0.8 K/mm3 (0.0-0.4) H 04/23/22 04:19 Basophils # (Manual) 0.0 K/mm3 (0.0-0.1) 04/23/22 04:19 Metamyelocytes # 0.0 K/mm3 04/23/22 04:19 Myelocytes # 0.0 K/mm3 04/23/22 04:19 Promyelocytes # 0.0 K/mm3 04/23/22 04:19 Blast Cells # 0.0 K/mm3 04/23/22 04:19 WBC Morphology Not Reportable 04/23/22 04:19 Hypersegmented Neuts Not Reportable 04/23/22 04:19 Hyposegmented Neuts Not Reportable 04/23/22 04:19 Hypogranular Neuts Not Reportable 04/23/22 04:19 Smudge Cells Not Reportable 04/23/22 04:19 Toxic Granulation Not Reportable 04/23/22 04:19 Toxic Vacuolation Not Reportable 04/23/22 04:19 Dohle Bodies Not Reportable 04/23/22 04:19 Pelger-Huet Anomaly Not Reportable 04/23/22 04:19 Regla Rods Not Reportable 04/23/22 04:19 Platelet Estimate Consistent w auto 04/23/22 04:19 Clumped Platelets Not Reportable 04/23/22 04:19 Plt Clumps, EDTA Not Reportable 04/23/22 04:19 Large Platelets Not Reportable 04/23/22 04:19 Giant Platelets Not Reportable 04/23/22 04:19 Platelet Satelliting Not Reportable 04/23/22 04:19 Plt Morphology Comment Not Reportable 04/23/22 04:19 RBC Morphology Not Reportable 04/23/22 04:19 Dimorphic RBCs Not Reportable 04/23/22 04:19 Polychromasia Not Reportable 04/23/22 04:19 Hypochromasia Not Reportable 04/23/22 04:19 Poikilocytosis Not Reportable 04/23/22 04:19 Anisocytosis Not Reportable 04/23/22 04:19 Microcytosis Not Reportable 04/23/22 04:19 Macrocytosis Not Reportable 04/23/22 04:19 Spherocytes Not Reportable 04/23/22 04:19 Pappenheimer Bodies Not Reportable 04/23/22 04:19 Sickle Cells Not Reportable 04/23/22 04:19 Target Cells Not Reportable 04/23/22 04:19 Tear Drop Cells Not Reportable 04/23/22 04:19 Ovalocytes Not Reportable 04/23/22 04:19 Helmet Cells Not Reportable 04/23/22 04:19 [place] Bodies Not Reportable 04/23/22 04:19 [place] Rings Not Reportable 04/23/22 04:19 [place] Cells Not Reportable 04/23/22 04:19 Bite Cells Not Reportable 04/23/22 04:19 Crenated Cell Not Reportable 04/23/22 04:19 Elliptocytes Not Reportable 04/23/22 04:19 Acanthocytes (Spur) Not Reportable 04/23/22 04:19 Rouleaux Not Reportable 04/23/22 04:19 Hemoglobin C Crystals Not Reportable 04/23/22 04:19 Schistocytes Not Reportable 04/23/22 04:19 Malaria parasites Not Reportable 04/23/22 04:19 [place] Bodies Not Reportable 04/23/22 04:19 Hem Pathologist Commnt No 04/23/22 04:19 PT 15.6 Sec. (12.2-14.9) H 04/18/22 Unknown INR 1.08 (0.87-1.13) 04/18/22 Unknown APTT 28.6 Sec. (24.2-36.6) 04/18/22 Unknown Activated Coag Time 179 (74-137) H 04/21/22 12:14 D-Dimer 1411.79 ng/mlDDU (0-234) H 05/05/22 03:54 Heparin Anti-Xa Level 0.16 U.I./ml (0.3-0.7) L 04/21/22 04:00 ABG pH 7.458 pH Units (7.350-7.450) H 05/06/22 13:13 ABG pCO2 35.9 mm Hg 05/06/22 13:13 ABG pO2 69.6 mm Hg (80.0-90.0) L 05/06/22 13:13 ABG HCO3 24.9 mmol/L (20.0-26.0) 05/06/22 13:13 ABG O2 Saturation 96.9 % (95.0-99.0) 05/06/22 13:13 ABG O2 Content 12.1 (0.0-44) 05/06/22 13:13 ABG Base Excess 1.1 mmol/L (-2.0-3.0) 05/06/22 13:13 ABG Hemoglobin 9.0 gm/dl (14.0-18.0) L 05/06/22 13:13 ABG Carboxyhemoglobin 1.5 % (0.0-5.0) 05/06/22 13:13 ABG Methemoglobin 0.5 % (0.0-1.5) 05/06/22 13:13 Oxyhemoglobin 95.0 % (95.0-99.0) 05/06/22 13:13 FiO2 40 % 05/06/22 13:13 Sodium 144 mmol/L (137-145) 05/06/22 04:25 Potassium 4.5 mmol/L (3.6-5.0) 05/06/22 04:25 Chloride 107.4 mmol/L (98-107) H 05/06/22 04:25 Carbon Dioxide 26 mmol/L (22-30) 05/06/22 04:25 Anion Gap 15 mmol/L 05/06/22 04:25 BUN 25 mg/dL (9-20) H 05/06/22 04:25 Creatinine 0.9 mg/dL (0.8-1.3) 05/06/22 04:25 Estimated GFR > 60 ml/min 05/06/22 04:25 BUN/Creatinine Ratio 28 % 05/06/22 04:25 Glucose 91 mg/dL (75-100) 05/06/22 04:25 POC Glucose 127 mg/dL (70-105) H 05/06/22 12:39 Lactic Acid 1.90 mmol/L (0.7-2.0) 04/21/22 04:20 Calcium 8.0 mg/dL (8.4-10.2) L 05/06/22 04:25 Phosphorus 3.20 mg/dL (2.5-4.5) 05/03/22 04:46 Magnesium 2.10 mg/dL (1.7-2.3) 05/03/22 04:46 Ferritin 416.7 ng/mL (30.0-300.0) H 05/05/22 03:54 Total Bilirubin 0.50 mg/dL (0.1-1.2) 05/05/22 03:54 Direct Bilirubin 0.3 mg/dL (0-0.2) H 04/30/22 04:25 Indirect Bilirubin 0.1 mg/dL 04/30/22 04:25 AST 51 units/L (5-40) H 05/05/22 03:54 ALT 107 units/L (7-56) H 05/05/22 03:54 Alkaline Phosphatase 170 units/L (35-129) H 05/05/22 03:54 Lactate Dehydrogenase 340 units/L (91-180) H 05/05/22 03:54 Total Creatine Kinase 61 units/L (55-170) 04/29/22 04:20 CK-MB (CK-2) 28.5 ng/mL (0.0-4.0) H 04/19/22 07:11 CK-MB (CK-2) Rel Index 0.8 (0-4) 04/19/22 07:11 Troponin T 2.980 ng/mL (0.00-0.029) H* 04/19/22 07:11 C-Reactive Protein 2.70 mg/dL (0.00-1.30) H 05/05/22 03:54 Total Protein 6.8 g/dL (6.3-8.2) 05/05/22 03:54 Albumin 2.9 g/dL (3.9-5) L 05/05/22 03:54 Albumin/Globulin Ratio 0.7 % 05/05/22 03:54 Triglycerides 214 mg/dL (2-149) H 05/01/22 04:00 Cholesterol 106 mg/dL (50-199) 04/17/22 19:56 LDL Cholesterol Direct 57 mg/dL (50-130) 04/17/22 19:56 HDL Cholesterol 40 mg/dL (40-59) 04/17/22 19:56 Cholesterol/HDL Ratio 2.65 % 04/17/22 19:56 Procalcitonin 2.90 ng/mL (<0.15) 04/28/22 Unknown Urine Color Straw (Yellow) 04/28/22 08:35 Urine Turbidity Clear (Clear) 04/28/22 08:35 Urine pH 6.0 (5.0-7.0) 04/28/22 08:35 Ur Specific [place] 1.000 (1.003-1.030) L 04/28/22 08:35 Urine Protein 300 mg/dl mg/dL (Negative) 04/28/22 08:35 Urine Glucose (UA) Negative mg/dL (Negative) 04/28/22 08:35 Urine Ketones Negative mg/dL (Negative) 04/28/22 08:35 Urine Blood 3+ (Negative) 04/28/22 08:35 Urine Nitrite Negative (Negative) 04/28/22 08:35 Ur Reducing Substances Not Reportable 04/28/22 08:35 Urine Bilirubin Negative (Negative) 04/28/22 08:35 Urine Ictotest Not Reportable 04/28/22 08:35 Urine Urobilinogen < 2.0 mg/dL (<2.0) 04/28/22 08:35 Ur Leukocyte Esterase Small (Negative) 04/28/22 08:35 Urine WBC (Auto) 21.0 /HPF (0.0-6.0) H 04/28/22 08:35 Urine RBC (Auto) 9.0 /HPF (0.0-6.0) 04/28/22 08:35 Urine Bacteria (Auto) 2+ /HPF (Negative) 04/19/22 02:08 Urine WBC Clumps 3+ /HPF 04/19/22 02:08 RBC Casts 34 /LPF 04/19/22 02:08 Urine Mucus Few /HPF 04/28/22 08:35 Urine Yeast (Budding) 3+ /HPF 04/19/22 02:08 Urine Eosinophils None seen (None Seen) 04/19/22 02:08 Urine Creatinine 90.9 mg/dL (0.1-20.0) H 04/19/22 02:08 Urine Sodium 54 mmol/L 04/19/22 02:08 Digoxin 0.7 ng/mL (0.9-2.0) L 05/05/22 03:54 Coronavirus (PCR) Positive (Negative) A 04/29/22 09:38 SARS-CoV-2 (PCR) Positive (Negative) A 05/05/22 15:30 Influenza A (RT-PCR) Negative (Negative) 04/29/22 11:44 Influenza B (RT-PCR) Negative (Negative) 04/29/22 11:44 Blood Type A POSITIVE 04/21/22 04:37 Antibody Screen Negative 04/21/22 04:37 Penn/IV: Voiding Method Condom Catheter Active Medications - Current Medications Current Medications: Generic Name Dose Route Start Last Admin Trade Name Freq PRN Reason Stop Dose Admin Acetaminophen 650 mg 04/17/22 19:48 04/28/22 21:38 Acetaminophen 325 Mg Tab PO 650 mg Q6H PRN Administration Pain MILD(1-3)/Fever >100.5/CHE Albuterol 2 puff 05/05/22 09:00 Albuterol 8.5 Gm Mdi Inhalation IH Q4HRT PRN SHORTNESS OF BREATH Amlodipine Besylate 5 mg 05/06/22 14:00 Amlodipine 5 Mg Tab PO QDAY FLACO Ascorbic Acid 500 mg 05/04/22 22:00 05/06/22 09:06 Ascorbic Acid 500 Mg Tab PO 05/10/22 10:01 500 mg BID [facility] Administration Aspirin 81 mg 05/05/22 10:00 05/06/22 09:06 Aspirin 81 Mg Tab Chew PO 81 mg QDAY [facility] Administration Atorvastatin Calcium 20 mg 05/04/22 22:00 05/05/22 21:04 Atorvastatin 20 Mg Tab PO 20 mg QHS [facility] Administration Dexamethasone 8 mg 04/30/22 10:00 05/06/22 09:05 Dexamethasone 4 Mg/Ml Vial IV 05/09/22 10:01 8 mg DAILY FLACO Administration Dextrose 0 ml 04/17/22 23:46 Dextrose 50% In Water (25gm) 50 Ml Syringe IV Q30MIN PRN Hypoglycemia Protocol Digoxin 0.125 mg 05/05/22 17:00 05/05/22 16:49 Digoxin 0.5 Mg/2 Ml Inj IV Not Given DAILY@1700 [facility] Docusate Sodium 100 mg 05/04/22 22:00 05/06/22 09:06 Docusate Sodium 100 Mg/10 Ml Oral Liqd PO 100 mg BID [facility] Administration Doxazosin Mesylate 1 mg 05/06/22 22:00 Doxazosin 1 Mg Tab PO BID [facility] Enoxaparin Sodium 120 mg 05/02/22 10:00 05/06/22 09:05 Enoxaparin 120 Mg/0.8 Ml Inj SUB-Q 120 mg Q12HR [facility] Administration Protocol Famotidine 20 mg 05/06/22 22:00 Famotidine 20 Mg/2 Ml Inj IV BID [facility] Fentanyl 50 mcg 05/06/22 11:52 Fentanyl 100 Mcg/2 Ml Inj IV Q10MIN PRN ANALGESIA Furosemide 20 mg 05/07/22 10:00 Furosemide 20 Mg/2 Ml Inj IV QDAY [facility] Hydralazine HCl 10 mg 05/06/22 13:45 Hydralazine 20 Mg/1 Ml Inj IV Q4H PRN SBP>160 Hydrophilic Ointment 1 applic 04/18/22 06:02 04/26/22 20:29 Lip Therapy Vaseline TP 1 applic Q2HR PRN Administration Dry Lips Fentanyl Citrate 2,000 mcg in 100 mls @ 5.76 mls/hr 05/06/22 12:00 05/06/22 12:15 Fentanyl Drip Premix IV 2 mcg/kg/hr TITR FLACO 11.52 mls/hr Titration Protocol 1 MCG/KG/HR Propofol 1,000 mg in 100 mls @ 3.456 mls/hr 05/06/22 13:00 05/06/22 12:44 Diprivan 10 Mg/Ml IV 20 mcg/kg/min TITR FLACO 13.824 mls/hr Titration Protocol 5 MCG/KG/MIN Insulin Glargine 35 units 05/03/22 22:00 05/05/22 21:06 Insulin Glargine 100 Units/Ml SUB-Q 35 units QHS FLACO Administration Insulin Human Lispro 0 unit 05/04/22 11:30 05/06/22 12:58 Insulin Lispro 100 Unit/Ml SUB-Q Not Given ACHS [facility] Protocol Metoprolol Tartrate 25 mg 05/05/22 10:00 05/06/22 09:06 Metoprolol Tartrate 25 Mg Tab PO 25 mg BID FLACO Administration Multi-Ingred Cream/Lotion/Oil/Oint 1 applic 04/18/22 06:02 Mineral Oil/Petrolatum, White Ophth Oint 3.5 Gm OU Q4HR PRN Dry Eye(s) Oxycodone/Acetaminophen 1 tab 05/04/22 10:00 Oxycodone /Acetaminophen 5-325mg Tab PO Q6H PRN Pain, Moderate (4-6) Quetiapine Fumarate 25 mg 05/05/22 14:00 05/06/22 09:06 Quetiapine 25 Mg Tab FEEDTUBE 25 mg DAILY FLACO Administration Quetiapine Fumarate 50 mg 05/05/22 22:00 05/05/22 21:05 Quetiapine 25 Mg Tab FEEDTUBE 50 mg QHS FLACO Administration Senna/Docusate Sodium 2 tab 05/04/22 10:00 05/06/22 09:06 Sennosides/Docusate Sodium 8.6/50 Mg Tab PO 2 tab BID FLACO Administration Sodium Chloride 10 ml 04/17/22 22:00 05/06/22 09:05 Sodium Chloride 0.9% 10 Ml Flush Syringe IV 10 ml BID FLACO Administration Sodium Chloride 10 ml 04/17/22 19:48 Sodium Chloride 0.9% 10 Ml Flush Syringe IV PRN PRN LINE FLUSH Zinc Sulfate 220 mg 04/30/22 22:00 05/06/22 09:06 Zinc Sulfate 220 Mg Cap PO 05/10/22 10:01 220 mg BID FLACO Administration Nutrition/Malnutrition Assess - Dietary Evaluation Nutrition/Malnutrition Findings: Nutrition Notes Start: 04/18/22 08:52 Freq: Status: Active Protocol: Document 05/06/22 10:12 ROMELIA (Rec: 05/06/22 10:54 ROMELIA [id number]) Nutrition Notes Initial or Follow up Reassessment Current Diagnosis Diabetes,Sepsis,Hypertension, Respiratory Failure, Malnutrition Other Pertinent Diagnosis s/p PEA w/ROSC, COVID-19/ Pneumonia, Atrial Fibrilation, Metabolic Acidosis, Current Diet NPO (since 05/05 12:15). Labs/Tests 05/06: Cl 107.4, BUN 25, Ca 8. 0. Pertinent Medications 05/06: Vit C, Lantus 35U, ZnSO4, others nutritionally unremarkable. Height 5 ft 9 in Weight 115.2 kg [place] Body Weight (kg) 72.72 BMI 37.5 Weight change and time frame No body weight change reported in 17 days. Weight Status Obese Subjective/Other Information RD consult for routine F/U on TF tolerance/continuation assessment. Pt currently on NPO. Pt will rmain NPO while on Bi-PaP, according to Progress notes. Pt is on NIV/Bi-PaP+, O2 saturation @ 96%, according to Physical Assessment History notes. Pt was extubated on 05/02, but possibly will undergo elective reintubation, according to Progress notes. Pt presents Groin and Hand blisters as signs of concern for skin risk at the time, according to Physical Assessment History notes. Percent of energy/protein needs met: Pt currently on NPO. When pertinent, change TF to prescribed TF-Glucerna 1.2 Scar @ 65 ml/hr provides for energy/protein needs (1,885 Kcal/94 g) during LOS, 96% Kcal; 100% AA. Burn Absent Trauma Absent GI Symptoms None Food Allergy No Skin Integrity/Comment Blisters on the groin and on hand. Current % PO Other Minimum of two criteria No Fluid Accumulation N/A Reduced Recovery Operator Strength N/A (non-severe) Protein-Calorie Malnutrition N\A #1 Nutrition Diagnosis Inadequate oral intake Diagnosis Progress(for reassessment Continues documentation) Is patient on ventilator? No Is Patient Ambulatory and/or Out of Bed No REE-([facility]-confined to bed) 2323.608 Kcal/Kg value to use for calculation 17 Approximate Energy Requirements Using 1958 kcal/Kg Calculation Used for Recommendations Kcal/kg Additional Notes Protein: 0.8-1.2 g/Kg AdjBW; 75-113 g/day. Fluids: 1 ml/Kcal, or as per MD. Nutrition Intervention Nutrition Support: When pertinent, Start TF- Glucerna 1.2 Scar @ 65 ml/hr. Flush: 110 ml water Q 4 hr, or as per MD. Kcal 1,885 Protein (gm) 94 Carbohydrates (gm) 180 Fat (gm) 94 Fluid (mL) 1,265 Fiber (gm) 25 % RDI: 96% Kcal; 100% AA. Goal #1 Provide at least 75% of energy /protein needs through Enteral Feeding during LOS. Follow-Up By: 05/13/22 Additional Comments When pertinent, continue monitoring TF tolerance, ventilation status, vasopressors, and BM.
--- NOTE | 2022-05-06 14:48 | Discharge Summary ---
<ESTUARDOMOHIT RichyDaniele - Last Filed: 05/06/22 15:13> Providers - Providers Date of Admission: 04/17/22 19:48 Date of discharge: 05/06/22 Attending physician: LISA TOWNSEND MD 04/17/22 19:48 Consult to Physician [CONS] Routine Comment: Consulting Provider: EDWIN DONALDSON Physician Instructions: Reason For Exam: resp failure 04/17/22 23:53 Consult to Dietitian/Nutrition [CONS] Routine Physician Instructions: Reason For Exam: Reason for Consult: Write/Manage Tube Feeding 04/18/22 04:37 Consult to Cardiology [CONS] Routine Consulting Provider: DANYA BULLOCK Reason For Exam: Afib with RVR, Cardiac arrest 04/18/22 06:03 Consult to Dietitian/Nutrition [CONS] Routine Physician Instructions: Reason For Exam: Reason for Consult: Evaluate nutritional intake 04/18/22 08:14 Consult to Physician [CONS] Routine Comment: called office/ [facility]asha Consulting Provider: PHONG SUNG Physician Instructions: Reason For Exam: VINCENT 04/20/22 14:13 Consult to Physician [CONS] Routine Comment: call answering service/stephany Consulting Provider: RAHAT LINDSAY Physician Instructions: Reason For Exam: s/p cardiac arrest 04/21/22 12:38 Consult to Cardiac Rehabilitation [CONS] Routine Reason For Exam: Cardiac Rehab Evaluation 04/27/22 12:56 Midline [Consult to PICC Line RN] [CONS] Routine Reason For Exam: Okay to place, VINCENT improving Type Line:: Midline 04/28/22 08:42 Consult to Physician [CONS] Routine Comment: call office/[facility] Consulting Provider: WANG BOWLES Physician Instructions: Reason For Exam: sepsis 05/02/22 16:09 Occupational Therapy Evaluate and Treat [CONS] Urgent Comment: Reason For Exam: Strength and Conditioning Physical Therapy Evaluation and Treat [CONS] Routine Comment: Reason For Exam: Strength and Conditioning Speech Therapy Evaluation and Treat [CONS] Routine Reason For Exam: Swallow eval. S/p intubation Primary care physician: GIANNA GRAF Hospitalization Condition: Critical Hospital course: This is is a 62-year-old male with OHS, HTN, DM, metabolic syndrome presents the emergency department on 04/17 via EMS s/p cardiac arrest. As per family patient presented to [facility] for evaluation for chest pain and subsequently went to the restroom where he was found unresponsive and EMS arrived and noted the patient had a V. fib arrest and ACLS was initiated and patient was transported to [facility] for further evaluation. Patient was noted to have aspirated into the oropharynx with suspected aspiration pneumonia complicated by acute hypoxic respiratory failure, septic shock and cardiac arrest. Patient was initiated on the sepsis protocol, IV vasopressor support and admitted to the ICU with consults to [facility], nephrology and cardiology. On 04/18 patient was on bicarbonate drip, Levophed, vasopressin, amiodarone and heparin drip, worsening renal function noted, patient was started on dobutamine drip for EF of 25 to 30% for possible cardiogenic shock. On 04/19 patient was hypoxic overnight and FiO2 was increased, patient was switched to a dopamine drip and remained on amiodarone, heparin, Levophed, vasopressin drip. On 04/21 patient had a left heart cath and was continued on IV fluids for renal function per nephrology and patient still was having episode of hypoxia and FiO2 had to be increased. On 04/22 patient was restarted on vasopressin with a decrease noted in creatinine from 4.2 to 2.9, patient remained on propofol and fentanyl and was started on low-dose Seroquel due to severe agitation, patient was restarted on dobutamine. On 04/23 patient was extremely hypertensive, given metoprolol, dobutamine drip was decreased to 2.5 but not discontinued as renal function continues to improve and patient was eventually extubated and reintubated due to him biting through OETT. On 04/24 patient did not tolerate CPAP trial however renal function did improve. On 04/25 patient had hypernatremia with a slight increase in renal function however good urine output, hypernatremia noted and patient was started on free water flushes and IV fluid. On 04/26 cardiology increased p.o. amiodarone, dobutamine drip continued, and he continued on D5W per nephrology, tolerated PSV and was noted to have a rash on his trunk/arm/chest and Seroquel was discontinued. On 04/27 patient was tolerating PSV and and renal function continued to improve. On 04/28 patient self extubated and was reintubated, given Lasix for flash pulmonary edema, patient noted to have persistent fevers and leukocytosis, infectious disease was consulted. On 04/29 patient remained febrile despite IV antibiotics and COVID PCR and flu PCR were ordered, amiodarone was discontinued due to transaminitis and he was started on IV digoxin. On 04/30 patient was noted to be COVID-positive, initiated on IV steroids and remdesivir, he also received Lasix. On 05/02 patient was extubated and given Lasix again. On 05/03 he continued to be diuresed with Lasix, started on therapeutic Lovenox as renal function improved. On 05/04 patient still remained on nasal cannula however he was having some hypoglycemic issues therefore lispro 3 times daily was discontinued and titration of lantus. On 05/03 patient was noted to have stridor and was given racemic epinephrine and remained on BiPAP all day and overnight. On 05/06 patient was noted to have stridor again was given racemic epinephrine and intubated by anesthesia. 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 [facility] for continued diuresis but decrease the dosage of the Lasix. Patient started on as needed hydralazine for hypertension. Started on fentanyl drip for analgesia and propofol for sedation. Care will be transferred to [facility]. This is a 62 year old male with OHS, HTN, DM, metabolic syndrome, s/p vfib cardiac arrest, Septic shock, aspiration pneumonia, transaminitis, VINCENT with acute metabolic encephalopathy Assessment and plan: Neuro: Acute metabolic encephalopathy (resolved), facial contusions s/p fall -CT head showed no focal intra-axial mass, hemorrhage, hydrocephalus or acute or large territorial infarct -Reorientation as needed -Maintain sleep-wake cycle -Neurology consulted, appreciate recommendations -As needed analgesia Cardiac: A. fib RVR , s/p V. fib cardiac arrest, cardiogenic shock, h/o atrial fibrillation s/p cardioversion, HTN -Cardiology consulted, appreciate recommendations -S/p V. fib cardiac arrest -S/p dopamine drip and dobutamine drip -Amio d/c for increased LFTs -s/p X 2 dose IV dig, now on PO Dig -s/p IV heparin -Blood pressure monitoring per protocol -s/p Vasopressor support with levophed, epinephrine, vasopressin -Echocardiogram shows EF of 15 to 20% -Left heart cath showed severe nonischemic cardiomyopathy with patent coronary arteries, which per cardiology presumably resulted in a primary cardiac arrest. -Plan to DC with life vest Respiratory: Acute hypoxic respiratory failure, h/o OHS -CCM consulted, appreciate recommendations -Intubated on 04/17 with 7.0 OETT @ 22 at the lips, reintubated 04/23 for blown cuff and reintuabted, self extubated 04/28 and reintubated but extubated 05/02, INTUBATED 05/06 -Vent settings: R 15, TV 450, Peep 6, FiO2 40% -see RT notes for titration -Chest US showed no pleural effusion -Pulmonary hygiene -SPO2 monitoring GI: Transaminitis (resolving), moderate protein calorie malnutrition -24 hours -895 mL -PPI -Cardiac CC diet, pureed -BR: Senokot -Trend LFTs : Acute kidney injury likely secondary to vasomotor nephropathy (resolved) -Nephrology consulted, appreciate recommendations -Monitor intake and output -Renally dose medications -Avoid nephrotoxic medications -s/p bicarb gtt -PO lasix, IV lasix for 24 hours (05/04) -Renal ultrasound shows distended gallbladder, no cholecystic fluid -Trend BMP ID: COVID 19 PNA, Aspiration pneumonia, Sepsis, lactic acidosis -ID consulted, appreciate recommendations -COVID 19 PCR (+) -CTA chest shows extensive bilateral airspace disease present dependent portions and greater in the upper lobes, given distribution could be related to aspiration -Admitted with hypotension, lactic acidosis, acute kidney injury, CXR showed pna -Antibiotic therapy with cefapime, vanco -s/p Redemsevir for 5 days -Contact and droplet precautions -f/u blood culture -Blood culture with NGTD, Sputum culture with usual adina -Monitor WBC and temperature curve -Trend COVID 19 inflammatory markers Endo: h/o DM -Avoid hypoglycemia -SSI -Accu-Cheks ACHS -Long-acting insulin, titrate as needed Heme: Leukocytosis, elevated D-dimer -CTA chest shows no pulmonary embolism -Trend CBC -Transfuse for hemoglobin less than 7 -Bilateral Doppler ultrasound showed no DVT -Lovenox BID -SCDs to BLE while in bed Disposition: -Patient is a [facility] patient -Accepted to [facility] ICU under Dr. Boles Disposition: ADMITTED INPATIENT Final Discharge Diagnosis (Prints w/discharge instructions): Acute metabolic encephalopathy (resolved), facial contusions s/p fall. A. fib RVR , s/p V. fib cardiac arrest, cardiogenic shock, h/o atrial fibrillation s/p cardioversion, HTN. Acute hypoxic respiratory failure, h/o OHS. Transaminitis (resolving), moderate protein calorie malnutrition. Acute kidney injury likely secondary to vasomotor nephropathy (resolved). COVID 19 PNA, Aspiration pneumonia, Sepsis, lactic acidosis. h/o DM. Leukocytosis, elevated D-dimer Time spent for discharge: 60 Core Measure Documentation - Palliative Care Palliative Care/ Comfort Measures: Not Applicable - Core Measures Any of the following diagnoses?: heart failure - Acute [place] Discharge Requirements МАРИЯ/ARB for LVSD if EF <40%: Yes Beta vanna at discharge: Yes - Heart Failure Discharge Requirements МАРИЯ/ARB for LVSD if EF <40%: Yes Beta vanna at discharge: Yes Exam - Physical Exam Narrative exam: General appearance: Present: no acute distress, other (Intubated and Sedated), obese - EENT Eyes: Present: PERRL, EOM intact ENT: hearing decreased - Neck Neck: Present: normal ROM - Respiratory Respiratory effort: normal Respiratory: bilateral: diminished, rhonchi - Cardiovascular Rhythm: irregularly irregular Heart Sounds: Present: S1 & S2. Absent: systolic murmur, diastolic murmur - Extremities Extremities: no ischemia, pulses intact Extremity abnormal: edema Peripheral Pulses: within normal limits - Abdominal General gastrointestinal: soft, non-tender, non-distended, normal bowel sounds - Integumentary Integumentary: Present: warm, dry - Neurologic Neurologic: Follows commands, interactive - Allied Health Allied health notes reviewed: nursing, RT - Constitutional Vitals: Temp Pulse Resp BP Pulse Ox 100.9 F H 100 H 20 111/69 98 05/06/22 12:00 05/06/22 14:00 05/06/22 14:00 05/06/22 14:00 05/06/22 14:00 Plan Care Plan Goals: Follow up with Dr. Morales in 2 to 3 weeks after discharge for Sleep apnea study and pulmonary management Follow up with: GIANNA GRAF MD [Primary Care Provider] - 7 Days ALOK MORALES MD [Staff Physician] - 7 Days <LISA TOWNSEND - Last Filed: 05/08/22 14:31> Providers - Providers Date of Admission: 04/17/22 19:48 Attending physician: LISA TOWNSEND MD 04/17/22 19:48 Consult to Physician [CONS] Routine Comment: Consulting Provider: EDIWN DONALDSON Physician Instructions: Reason For Exam: resp failure 04/17/22 23:53 Consult to Dietitian/Nutrition [CONS] Routine Physician Instructions: Reason For Exam: Reason for Consult: Write/Manage Tube Feeding 04/18/22 04:37 Consult to Cardiology [CONS] Routine Consulting Provider: DANYA BULLOCK Reason For Exam: Afib with RVR, Cardiac arrest 04/18/22 06:03 Consult to Dietitian/Nutrition [CONS] Routine Physician Instructions: Reason For Exam: Reason for Consult: Evaluate nutritional intake 04/18/22 08:14 Consult to Physician [CONS] Routine Comment: called office/ [facility] Consulting Provider: PHONG SUNG Physician Instructions: Reason For Exam: VINCENT 04/20/22 14:13 Consult to Physician [CONS] Routine Comment: call answering service/[facility] Consulting Provider: RAHAT LINDSAY Physician Instructions: Reason For Exam: s/p cardiac arrest 04/21/22 12:38 Consult to Cardiac Rehabilitation [CONS] Routine Reason For Exam: Cardiac Rehab Evaluation 04/27/22 12:56 Midline [Consult to PICC Line RN] [CONS] Routine Reason For Exam: Okay to place, VINCENT improving Type Line:: Midline 04/28/22 08:42 Consult to Physician [CONS] [facility]ine [facility] Provider: WANG BOWLES Physician Instructions: Reason For Exam: sepsis 05/02/22 16:09 Occupational Therapy Evaluate and Treat [CONS] Urgent Comment: Reason For Exam: Strength and Conditioning Physical Therapy Evaluation and Treat [CONS] Routine Comment: Reason For Exam: Strength and Conditioning Speech Therapy Evaluation and Treat [CONS] Routine Reason For Exam: Swallow eval. S/p intubation Primary care physician: GIANNA GRAF Hospitalization Hospital course: I saw and evaluated the patient. Discussed with the nurse practitioner and agree with their findings and plan as documented in this note. Exam - Constitutional Vitals: Temp Pulse Resp BP Pulse Ox 98.6 F 82 26 H 89/65 98 05/06/22 15:02 05/06/22 16:00 05/06/22 16:00 05/06/22 16:00 05/06/22 16:00
[2022-05-06] MEDS ORDERED: amLODIPine 5 MG TAB PO SCH (15:00)
[2022-05-06 16:37] VITALS: BP 89/65
[2022-05-06] MEDS: DIGOXIN 0.5 MG/2 ML INJ IV SCH (16:43)
[2022-05-06] MEDS ORDERED: FAMOTIDINE 20 MG/2 ML INJ IV SCH (22:00)
[2022-05-06] MEDS ORDERED: DOXAZOSIN 1 MG TAB PO SCH (22:00)
[2022-05-07] MEDS ORDERED: FUROSEMIDE 20 MG/2 ML INJ IV SCH (10:00)
== END 2022-05-06 16:20 | disposition short-term general hospital (02) | DRG 870 ==
LOC: ED 19:01 → CC1 19:48
PROVIDERS: ADMIT Internal Medicine; ATTEND Internal Medicine
PROC: 5A1955Z Respiratory Ventilation, Greater than 96 Consecutive Hours (ICD-10-PCS; principal; 2022-04-17)
PROC: 0BH17EZ Insertion of Endotracheal Airway into Trachea, Via Natural or Artificial Opening (ICD-10-PCS; 2022-04-17)
PROC: 4A033R1 Measurement of Arterial Saturation, Peripheral, Percutaneous Approach (ICD-10-PCS; 2022-04-17)
PROC: 02HV33Z Insertion of Infusion Device into Superior Vena Cava, Percutaneous Approach (ICD-10-PCS; 2022-04-17)
PROC: B548ZZA Ultrasonography of Superior Vena Cava, Guidance (ICD-10-PCS; 2022-04-17)
PROC: 03HY32Z Insertion of Monitoring Device into Upper Artery, Percutaneous Approach (ICD-10-PCS; 2022-04-18)
PROC: 4A023N7 Measurement of Cardiac Sampling and Pressure, Left Heart, Percutaneous Approach (ICD-10-PCS; 2022-04-21)
PROC: B2111ZZ Fluoroscopy of Multiple Coronary Arteries using Low Osmolar Contrast (ICD-10-PCS; 2022-04-21)
PROC: 05H933Z Insertion of Infusion Device into Right Brachial Vein, Percutaneous Approach (ICD-10-PCS; 2022-04-27)
PROC: XW033E5 Introduction of Remdesivir Anti-infective into Peripheral Vein, Percutaneous Approach, New Technology Group 5 (ICD-10-PCS; 2022-04-30)
PROC: 5A09457 Assistance with Respiratory Ventilation, 24-96 Consecutive Hours, Continuous Positive Airway Pressure (ICD-10-PCS; 2022-05-03)
DX: A41.9 Sepsis, unspecified organism (principal); I21.A1 Myocardial infarction type 2; J96.01 Acute respiratory failure with hypoxia; I46.9 Cardiac arrest, cause unspecified; R57.0 Cardiogenic shock; J69.0 Pneumonitis due to inhalation of food and vomit; R65.21 Severe sepsis with septic shock; G93.41 Metabolic encephalopathy; K72.00 Acute and subacute hepatic failure without coma; N17.0 Acute kidney failure with tubular necrosis; U07.1 COVID-19; E66.2 Morbid (severe) obesity with alveolar hypoventilation; E87.1 Hypo-osmolality and hyponatremia; E44.0 Moderate protein-calorie malnutrition; I42.0 Dilated cardiomyopathy; E87.0 Hyperosmolality and hypernatremia; M62.82 Rhabdomyolysis; I48.19 Other persistent atrial fibrillation; Z68.37 Body mass index [BMI] 37.0-37.9, adult; Z88.8 Allergy status to other drugs, medicaments and biological substances; E78.5 Hyperlipidemia, unspecified; E11.9 Type 2 diabetes mellitus without complications; E88.81 Metabolic syndrome and other insulin resistance; W18.39XA Other fall on same level, initial encounter; Y93.89 Activity, other specified; Y92.238 Other place in hospital as the place of occurrence of the external cause; Y99.8 Other external cause status; S00.83XA Contusion of other part of head, initial encounter; E87.5 Hyperkalemia; E87.6 Hypokalemia; E87.8 Other disorders of electrolyte and fluid balance, not elsewhere classified; D64.9 Anemia, unspecified; R33.9 Retention of urine, unspecified; Z83.3 Family history of diabetes mellitus; Z82.49 Family history of ischemic heart disease and other diseases of the circulatory system
CPT/HCPCS: 36415; 36600; 70450; 71045; 71275; 74018; 76604; 76705; 76770; 80048; 80053; 80061; 80076; 80162; 81001; 82140; 82550; 82553; 82570; 82728; 82803; 82962; 83615; 83735; 84100; 84145; 84300; 84478; 84484; 85007; 85014; 85018; 85025; 85027; 85049; 85347; 85379; 85520; 85610; 85730; 86140; 86850; 86900; 86901; 87040; 87070; 87086; 87205; 89050; 93005; 93306; 93458; 93970; 94002; 94003; 94660; 94760; 99292; G0378; J2354; J3490; J7060; J7121; Q9967; 87502; C1894; C8929; J0282; J0330; J0360; J0610; J0692; J1100; J1160; J1170; J1200; J1250; J1265; J1630; J1644; J1650; J1815; J1940; J1956; J2704; J3010; J3370; J3475; J7030; J7040; J7050; J7070; U0003